=== PATIENT | female | born 1960 | race Caucasian/White ===

== ENCOUNTER 2020-02-09 10:02 | Emergency (ER) | payer MEDICAID ==
[2020-02-09 10:26] LABS: Absolute Lymphocytes (CBC) 1.6 K/uL (0.7-4.9); Hematocrit 42.7 % (36.0-45.0); Lymphocytes % 21.2 % (15.3-44.8); MPV 9.4 fL (7.6-11.3); RBC Red Blood Cell Count 4.68 M/uL (3.86-4.86)
[2020-02-09] MEDS ORDERED: ONDANSETRON 4 MG/2 ML VIAL ONE (10:33)
[2020-02-09] MEDS ORDERED: NA CHLORIDE 0.9% 1,000 ML ONE (10:33)
[2020-02-09 10:42] LABS: Albumin 3.3 g/dL (3.4-5.0); Bilirubin Direct 0.1 mg/dL (0-0.2); Bilirubin Total 0.4 mg/dL (0.2-1.0); Potassium 3.5 mmol/L (3.5-5.1); Protein, Total 7.8 g/dL (6.4-8.2)
--- NOTE | 2020-02-09 11:35 | RAD REPORT ---
EXAM DESCRIPTION: [place] Single View02/09/2020 10:29 am CLINICAL HISTORY: Congestion COMPARISON: none FINDINGS: The lungs appear clear of acute infiltrate. The heart is normal size IMPRESSION: No acute abnormalities displayed
--- NOTE | 2020-02-09 11:35 | RAD REPORT ---
EXAM DESCRIPTION: CT - Abdomen Pelvis W Contrast - 02/09/2020 11:24 am CLINICAL HISTORY: Abdominal pain COMPARISON: none. TECHNIQUE: Computed axial tomography of the abdomen pelvis was obtained. 100 cc Isovue-300 was admin istered intravenously. Oral contrast was not requested which limits evaluation of bowel. All CT scans are performed using dose optimization technique as appropriate and may include automated exposure control or mA/KV adjustment according to patient size. FINDINGS: The liver, spleen, pancreas, adrenal and and right kidney appear unremarkable. 2.2 centimeter left renal cyst. Small nonobstructing left renal calculi. Renal cortical thinning like ly secondary to prior inflammation There is no evidence of diverticulitis. A percutaneous tube has its tip in the stomach. What appears to be Rogers catheter is present within the cervix. Bladder is borderline distended conta ining air Rectum is distended with stool measuring 7.5 centimeters. Atherosclerotic disease IMPRESSION: Rogers catheter within the cervix Rectum is distended with stool Small nonobstructing left renal calculi
[2020-02-09] MEDS ORDERED: CEFTRIAXONE/SWI 1gm 1 GM/10 ML SYR ONE (12:27)
[2020-02-09 12:42] LABS: Urine Blood 1+ (NEG); Urine Glucose NEGATIVE (NEG); Urine Protein NEGATIVE (NEG); Urine Specific Gravity 1.015 (1.005-1.030)
[2020-02-09 12:46] LABS: Urine Bacteria >50 /HPF (<20); Urine Mucus 1+ /HPF (NONE SEEN)
--- NOTE | 2020-02-09 13:35 | EDPHYS ---
Physician Documentation [facility] Name: Funmilayo Mcmillan Age: 59 yrs Sex: Female : 1960 Arrival Date: 02/09/2020 Time: 10:03 Bed 2 Private MD: ED Physician Arron Schulz HPI: 02/08 10:46 This 59 yrs old Female presents to ER via EMS with complaints of Problem With ma2 Feeding Tube. 10:46 The patient presents with abdominal pain peg tube not working . Onset: The ma2 symptoms/episode began/occurred acutely. Associated signs and symptoms: Pertinent negatives: blood in stools, constipation, dysuria, fever. Severity of pain: At its worst the pain was moderate in the emergency department the pain is unchanged. The patient has not experienced similar symptoms in the past. Historical: - Allergies: 10: No Known Allergies; jl7 - Home Meds: 10:29 Risperdal 0.5 mg Oral tab 2 times per day [Active]; clopidogrel 75 mg oral tab 1 tab jl7 once daily [Active]; famotidine 20 mg Oral tab 1 tab every 12 hours [Active]; amlodipine 10 mg tab 1 tab once daily [Active]; levetiracetam 100 mg/mL oral soln 705 mL 2 times per day [Active]; lisinopril 40 mg Oral tab 1 tab once daily [Active]; atorvastatin 40 mg oral tab 1 tab once daily [Active]; aspirin 81 mg Oral chew 1 tab once daily [Active]; - PMHx: 10:29 CVA; Hypertension; Hyperlipidemia; Atrial Fib; Depression; jl7 - Immunization history:: Adult Immunizations up to date. - Social history:: Smoking status: Patient denies any tobacco usage or history of. Patient/guardian denies using alcohol, street drugs, The patient lives with family. - Family history:: not pertinent. ROS: 10:46 Constitutional: Negative for fever, chills, and weight loss. ma2 10:46 All other systems are negative. Exam: 10:46 Constitutional: This is a well developed, well nourished patient who is awake, alert, ma2 and in no acute distress. Head/Face: Normocephalic, atraumatic. Eyes: Pupils equal round and reactive to light, extra-ocular motions intact. Lids and lashes normal. Conjunctiva and sclera are non-icteric and not injected. Cornea within normal limits. Periorbital areas with no swelling, redness, or edema. ENT: Nares patent. No nasal discharge, no septal abnormalities noted. Tympanic membranes are normal and external auditory canals are clear. Oropharynx with no redness, swelling, or masses, exudates, or evidence of obstruction, uvula midline. Mucous membranes moist. Neck: Trachea midline, no thyromegaly or masses palpated, and no cervical lymphadenopathy. Supple, full range of motion without nuchal rigidity, or vertebral point tenderness. No Meningismus. Chest/axilla: Normal chest wall appearance and motion. Nontender with no deformity. No lesions are appreciated. Cardiovascular: Regular rate and rhythm with a normal S1 and S2. No gallops, murmurs, or rubs. Normal PMI, no JVD. No pulse deficits. Respiratory: Lungs have equal breath sounds bilaterally, clear to auscultation and percussion. No rales, rhonchi or wheezes noted. No increased work of breathing, no retractions or nasal flaring. Abdomen/GI: Soft, non-tender, with normal bowel sounds. No distension or tympany. No guarding or rebound. No evidence of tenderness throughout. Back: No spinal tenderness. No costovertebral tenderness. Full range of motion. Skin: Warm, dry with normal turgor. Normal color with no rashes, no lesions, and no evidence of cellulitis. MS/ Extremity: Pulses equal, no cyanosis. Neurovascular intact. Full, normal range of motion. Neuro: she is non verbal at baseline , s/p strock Psych: Awake, alert, with orientation to person, place and time. Behavior, mood, and affect are within normal limits. Vital Signs: 10:11 BP 167 / 81; Pulse 71; Resp 16; Temp 97.6(TE); Pulse Ox 100% on R/A; ss 11:01 BP 153 / 86; Pulse 64; Resp 18; Pulse Ox 100% ; sv 12:18 BP 154 / 86; Pulse 66; Resp 13; Pulse Ox 99% ; jl7 13:14 BP 168 / 85; Pulse 62; Resp 17; Pulse Ox 100% ; jl7 MDM: 10:05 Patient medically screened. ma2 10:46 Differential diagnosis: gastritis, gastroesophageal reflux disease, Irritable bowel ma2 syndrome, pancreatitis. 13:04 Data reviewed: vital signs, nurses notes. Counseling: I had a detailed discussion with [facility] the patient and/or guardian regarding: the historical points, exam findings, and any diagnostic results supporting the discharge/admit diagnosis, the presence of at least one elevated blood pressure reading (>120/80) during this emergency department visit, the need for outpatient follow up. Response to treatment: the patient's symptoms have markedly improved after treatment. 02/08 10:07 Order name: BMP [facility] 02/08 10:07 Order name: CBC with Diff; Complete Time: 12:01 [facility] 02/08 10:07 Order name: Hepatic Function [facility] 02/08 10:07 Order name: Lipase [facility] 02/08 10:08 Order name: Basic Metabolic Panel; Complete Time: 12:01 [facility] 02/08 10:08 Order name: Liver (Hepatic) Function; Complete Time: 12:01 [facility] 02/08 10:07 Order name: CT Abd/Pelvis - IV Contrast Only; Complete Time: 12:01 [facility] 02/08 10:07 Order name: Chest Single View XRAY; Complete Time: 12:01 [facility] 02/08 10:08 Order name: Lipase; Complete Time: 12:01 [facility] 02/08 12:06 Order name: Urine Culture [facility] 02/08 12:06 Order name: Urine Microscopic Only; Complete Time: 13:04 [facility] 02/08 12:23 Order name: Urine Dipstick--Ancillary (enter results); Complete Time: 13:04 02/08 10:07 Order name: IV Saline Lock; Complete Time: 10:23 [facility] 02/08 10:07 Order name: Labs collected and sent; Complete Time: 10:23 [facility] 02/08 10:07 Order name: NPO; Complete Time: 10:23 [facility] 02/08 10:07 Order name: Urine Dipstick-Ancillary (obtain specimen); Complete Time: 12:17 [facility] Administered Medications: 10:23 Drug: Zofran (Ondansetron) 4 mg Route: IVP; Site: left antecubital; jl7 11:00 Follow up: Response: No adverse reaction sv 10:23 Drug: NS 0.9% 1000 ml Route: IV; Rate: 1000 ml; Site: left antecubital; jl7 11:30 Follow up: Response: No adverse reaction; IV Status: Completed infusion; IV Intake: jl7 1000ml 12:17 Drug: Rocephin 1 grams Route: IV; Rate: calculated rate; Site: left antecubital; jl7 12:20 Follow up: Response: No adverse reaction; IV Status: Completed infusion jl7 Disposition: 02/09/20 13:34 Discharged to Home. Impression: Cystitis, unspecified without hematuria. - Condition is Stable. - Discharge Instructions: Urinary Tract Infection, Adult, [id number]. - Prescriptions for cefpodoxime 100 mg Oral Tablet - take 1 tablet by ORAL route every 12 hours for 10 days take with food; 20 tablet. - Medication Reconciliation Form, Thank You Letter, Antibiotic Education, Prescription Opioid Use form. - Follow up: Private Physician; When: Tomorrow; Reason: Continuance of care. Signatures: Dispatcher [employer] EDFrancesca Lopez RN RN Rose Choe RN RN jl7 Arron Schulz MD MD ma2 Verde, Stephanie RN sv Corrections: (The following items were deleted from the chart) 14:22 13:34 02/09/2020 13:34 Discharged to Home. Impression: Cystitis, unspecified without jl7 hematuria. Condition is Stable. Prescriptions for cefpodoxime 100 mg Oral Tablet - take 1 tablet by ORAL route every 12 hours for 10 days take with food; 20 tablet. and Forms are Medication Reconciliation Form, Thank You Letter, Antibiotic Education, Prescription Opioid Use. Follow up: Private Physician; When: Tomorrow; Reason: Continuance of care. ma2
--- NOTE | 2020-02-09 13:35 | ER ---
Nurse's Notes [facility] Name: Funmilayo Mcmillan Age: 59 yrs Sex: Female : 1960 Arrival Date: 02/09/2020 Time: 10:03 Bed 2 Private MD: Diagnosis: Cystitis, unspecified without hematuria Presentation: 02/08 10:11 Chief complaint: EMS states: Unable to use peg tube x 2 days. Family told patient's ss physician that over the past few days, she seems to ba a little more agitated. CVA 2 months ago. Coronavirus screen: Client denies travel out of the [place] in the last 14 days. Ebola Screen: Patient denies exposure to infectious person. Patient denies travel to an Ebola-affected area in the 21 days before illness onset. Initial Sepsis Screen: Does the patient meet any 2 criteria? No. Patient's initial sepsis screen is negative. Does the patient have a suspected source of infection? No. Patient's initial sepsis screen is negative. Risk Assessment: Do you want to hurt yourself or someone else? Patient reports no desire to harm self or others. Onset of symptoms is unknown. 10:11 Method Of Arrival: EMS: [facility] 10:11 Acuity: EDNA 3 ss Triage Assessment: 14:04 General: Appears. jl7 Historical: - Allergies: 10:29 No Known Allergies; jl7 - Home Meds: 10:29 Risperdal 0.5 mg Oral tab 2 times per day [Active]; clopidogrel 75 mg oral tab 1 tab jl7 once daily [Active]; famotidine 20 mg Oral tab 1 tab every 12 hours [Active]; amlodipine 10 mg tab 1 tab once daily [Active]; levetiracetam 100 mg/mL oral soln 705 mL 2 times per day [Active]; lisinopril 40 mg Oral tab 1 tab once daily [Active]; atorvastatin 40 mg oral tab 1 tab once daily [Active]; aspirin 81 mg Oral chew 1 tab once daily [Active]; - PMHx: 10:29 CVA; Hypertension; Hyperlipidemia; Atrial Fib; Depression; jl7 - Immunization history:: Adult Immunizations up to date. - Social history:: Smoking status: Patient denies any tobacco usage or history of. Patient/guardian denies using alcohol, street drugs, The patient lives with family. - Family history:: not pertinent. Screenin:29 Abuse screen: Denies threats or abuse. Denies injuries from another. Nutritional jl7 screening: No deficits noted. Tuberculosis screening: No symptoms or risk factors identified. Fall Risk Secondary diagnosis (15 points) CVA, IV access (20 points). Ambulatory Aid- None/Bed Rest/Nurse Assist (0 pts). Gait- Weak (10 pts.). Total Cloud Fall Scale indicates High Risk Score (45 or more points). Fall prevention measures have been instituted. Side Rails Up X 2 Placed Close to Nursing Station Frequent Obs/Assessments Occuring Family Present and informed to notify staff if the need to leave the bedside As available patient and family educated on Fall Prevention Program and Strategies. Assessment: 10:29 Reassessment: daughter at bedside. jl7 10:55 Reassessment: Rogers noted to be in place, daughter reports [facility] nurse changed it this jl7 morning. Daughter reports she's had the same Rogers for 2 months and they just changed it this morning for the first time. No urine noted in bag or tube. Daughter reports the pt has bee refusing tube feedings and meds since Thursday. 13:14 Reassessment: Patient appears in no apparent distress at this time. No changes from jl7 previously documented assessment. Patient and/or family updated on plan of care and expected duration. Pain level reassessed. Patient is alert, oriented x 3, equal unlabored respirations, skin warm/dry/pink. 13:16 Reassessment: DaughterElyssa, . jl7 Vital Signs: 10:11 BP 167 / 81; Pulse 71; Resp 16; Temp 97.6(TE); Pulse Ox 100% on R/A; ss 11:01 BP 153 / 86; Pulse 64; Resp 18; Pulse Ox 100% ; sv 12:18 BP 154 / 86; Pulse 66; Resp 13; Pulse Ox 99% ; jl7 13:14 BP 168 / 85; Pulse 62; Resp 17; Pulse Ox 100% ; jl7 ED Course: 10:03 Patient arrived in ED. jl7 10:05 Arron Schulz MD is Attending Physician. ma2 10:11 Arm band placed on right wrist. ss 10:13 Rose Choe RN is Primary Nurse. jl7 10:21 Triage completed. ss 10:29 Chest Single View XRAY In Process Unspecified. EDMS 10:29 Patient has correct armband on for positive identification. Placed in gown. Bed in low jl7 position. Call light in reach. Side rails up X2. Adult w/ patient. bus driver/monitor on. Pulse ox on. NIBP on. Warm blanket given. 10:29 Initial lab(s) drawn, by ED staff, sent to lab. Inserted saline lock: 20 gauge in left jl7 antecubital area, using aseptic technique. Blood collected. 11:24 CT Abd/Pelvis - IV Contrast Only In Process Unspecified. EDMS 12:00 Rogers cath inserted, using sterile technique, 16 Fr., by ED staff, balloon inflated, to sv gravity drainage, other done by Rose URIOSTEGUI. 12:00 Rogers cath removed intact, balloon deflated, Rogers removed from cervix. jl7 12:40 Lipase Sent. sv 12:40 Hepatic Function Sent. sv 12:40 BMP Sent. sv 14:17 No provider procedures requiring assistance completed. IV discontinued, intact, jl7 bleeding controlled, No redness/swelling at site. Pressure dressing applied. Administered Medications: 10:23 Drug: Zofran (Ondansetron) 4 mg Route: IVP; Site: left antecubital; jl7 11:00 Follow up: Response: No adverse reaction sv 10:23 Drug: NS 0.9% 1000 ml Route: IV; Rate: 1000 ml; Site: left antecubital; jl7 11:30 Follow up: Response: No adverse reaction; IV Status: Completed infusion; IV Intake: jl7 1000ml 12:17 Drug: Rocephin 1 grams Route: IV; Rate: calculated rate; Site: left antecubital; jl7 12:20 Follow up: Response: No adverse reaction; IV Status: Completed infusion jl7 Intake: 11:30 IV: 1000ml; Total: 1000ml. jl7 Outcome: 13:34 Discharge ordered by MD. thompson 14:17 Discharged to home via ambulance. jl7 14:17 Condition: stable 14:17 Discharge instructions given to patient, family, Instructed on discharge instructions, follow up and referral plans. medication usage, Demonstrated understanding of instructions, follow-up care, medications, Prescriptions given X 1. 14:22 Patient left the ED. jl7 Addendum: 02/12/2020 18:36 Addendum: Culture Results: Positive urine culture. Bacteria is resistant to, has i w intermediate sensitivity, or is not tested against prescribed antibiotics. Report given to EMMANUEL for further evaluation and then to duplicating machine servicer for follow up with patient. Prescription called-in to pharmacy of choice. called in Bactrim suspension 20 mLBID X 7 days, qty sufficient , per CORINNE Whalen, [facility]. Signatures: Dispatcher [employer] EDMS Nichelle Perkins, RN Leslye Donahue RN RN Francesca Caputo RN RN ss Leal, Jahala, RN RN jl7 Arron Schulz MD MD ma2
[2020-02-09 15:31] VITALS: TEMP 97.6
[2020-02-09 15:38] VITALS: BP 168/85; O2SAT 100
== END 2020-02-09 14:22 | disposition home or self-care (01) ==
LOC: ER 10:02
DX: N30.91 Cystitis, unspecified with hematuria (principal); I10 Essential (primary) hypertension; I48.91 Unspecified atrial fibrillation; E78.5 Hyperlipidemia, unspecified; F32.9 Major depressive disorder, single episode, unspecified; Z86.73 Personal history of transient ischemic attack (TIA), and cerebral infarction without residual deficits; Z79.82 Long term (current) use of aspirin
CPT/HCPCS: 96361; 87088; 85025; 87086; 80048; 36415; 80076; 87077 ×2; 87186 ×2; 83690; 74177; 71045; 51702; 96375; 96374; 99285; Q9967; J0696; J7030; J2405; 81003; 81015

== ENCOUNTER 2020-03-10 03:36 | Emergency (ER) | payer MEDICAID ==
--- OUTSIDE RECORDS SUMMARY | 2020-03-10 03:43 | XMS REPORT | Summary of Care ---
:1960 Author Organization [facility] Address [address] [place] [id number] Care Team Providers Name Role Phone Gatito Chauhan MD Primary Care Provider Zeke Márquez Insurance Hmo Reason for Visit (Routine) Status Reason Specialty Diagnoses / Referred By Referred To Procedures Contact Contact Closed Vascular Sonography Diagnoses PAD (peripheral artery disease) Daya Love MD Procedures [facility] [address] [facility] [address] [place] [address] Encounter Details Date Type Department Care Team Description 12/19/2019 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, [address] [place] [address] Allergies No Known Allergiesdocumented as of this encounter (statuses as of 12/19/2019) Medications Medication Sig Dispensed Refills Start Date End Date Status citalopram (CELEXA) 40 mg Take 1 Tab by 30 Tab 4 08/23/2013 Active tablet mouth daily. risperiDONE (RISPERDAL) 2 Take 1 Tab by 30 Tab 4 08/23/2013 Active mg tablet mouth every morning. aspirin 81 mg EC tablet Take 1 tablet 0 07/08/2017 Active by mouth daily. metoprolol succinate XL Take 1 tablet 90 tablet 3 12/13/2019 Active 50 mg 24 hr by mouth daily. tabletIndications: Coronary artery disease involving elim ira coronary artery of elim ira heart without angina pectoris simvastatin 40 mg Take 1 tablet 90 tablet 3 12/13/2019 Active tabletIndications: by mouth at Coronary artery disease bedtime. involving elim ira coronary artery of elim ira heart without angina pectoris meloxicam 7.5 mg Take 1 tablet 60 tablet 3 12/16/2019 Active tabletIndications: Neck by mouth daily. pain, musculoskeletal Ok to take 15mg daily (2 tablets) if 1 tablet does not help the pain. Take with food. documented as of this encounter (statuses as of 12/19/2019) Active Problems Problem Noted Date Coronary artery disease without angina pectoris 2015 HTN (hypertension) 07/23/2015 Chest pain 07/22/2015 PAD (peripheral artery disease) 05/10/2015 documented as of this encounter (statuses as of 12/19/2019) Social History Tobacco Use Types Packs/Day Years Used Date Former Smoker Cigarettes 1 Started: 02/01 Smokeless Tobacco: Former User Snuff Q uit: 06/02/1999 Comments: started smoking at 13 years ol d, uses a pack every 2 days when not smoking. Alcohol Use Drinks/Week oz/Week Comments Yes 0 Standard drinks or equivalent 0.0 3 beers daily Sex Assigned at Date Recorded Not on file COVID-19 Exposure Response Date Recorded In the last month, have you been in contact with No / Unsure 12/19/2019 9:21 AM CDT someone who was confirmed or suspected to have 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 documented as of this encounter Last Filed Vital Signs Not on filedocumented in this encounter Plan of Treatment Date Type Specialty Care Team Description 12/19/2019 Trolley Worker Visit Cardiology Prseton Plummer MD [address] [place] [address] Pc, Adc Vascular Room 1 - 12/27/2019 Ancillary Visit Physical Therapy Shanell Foy , PT [address] [place] [address] 12/27/2019 Laboratory Only Cardiology Daya Love M D [address] [place] [address] [phone] Pc, Adc Echo Room 1 - 12/28/2019 Appointment Radiology Joeslyn Chauhan MD [address] [facility] [address] [place], [place] [address] [phone] 12/28/2019 Appointment Radiology Joselyn Chauhan MD [address] [facility] [address] [place], [place] [address] [phone] 01/06/2020 Office Visit Vascular Surgery Gerard Hart MD [address] [place] [address] [phone] 06/11/2020 Office Visit Cardiology Daya Love M D [address] [facility] [address] [place], [place] [address] [phone] Health Maintenance Due Date Last Done Comments COLON CANCER SCREENING ANNUAL 2011 FIT/FOBT COLON CANCER SCREENING FIT 2011 DNA EVERY 3 YEARS COLON CANCER SCREENING 2011 SIGMOIDOSCOPY EVERY 5 YEARS PAP SMEAR 08/03/2011 08/02/2008, 12/02/2004, 11/03/2003 Breast Cancer Screening 01/11/2014 01/11/2013, (MAMMOGRAM) 12/24/2012 LUNG CANCER SCREEN: 2016 Recommended for age 55-80 with 30 + pack year history DTaP,Tdap,and Td Vaccines (1 02/02/2020 Pos tponed from 1980 - Tdap) (Insurance / Fin ancial) Zoster Recombinant Vaccine 02/02/2020 Postp oned from 2011 (SHINGRIX) (1 of 2) (Insurance / Financial) INFLUENZA VACCINE (#1) 2020 Postponed from 11/15/2019 (Refused) Depression Screening 12/12/2020 12/13/2019 COLONOSCOPY 06/06/2026 06/06/2016 Colorectal Cancer Screening 06/06/2026 HEPATITIS C (HCV) SCREEN Completed 10/01/2018, 12/31/2017 PNEUMOCOCCAL 0-64 YEARS Aged Out No longe r eligible based COMBINED SERIES on patient's age to complete this to [facility] documented as of this encounter Goals Goal Patient Goal Associated Recent Patient-Stated? Author Type Problems Progress Quit using Tobacco Use caleb Peratla (cigarettes, smokeless, etc) documented as of this encounter Results Not on filedocumented in this encounter Visit Diagnoses Diagnosis PAD (peripheral artery disease) Unspecified disorders of arteries and ar terioles documented in this encounter Insurance Payer Benefit Plan / Subscriber ID Effective Phone Address T ype Group Dates EMRE ANDREA [id number] 2015-Pres [address] Medic aid HEALTHCARE - [place]ALTHCARE [place] [id number] MANAGED MEDICAID [place], [place]ICAID [place] documented as of this encounter
--- OUTSIDE RECORDS SUMMARY | 2020-03-10 03:43 | XMS REPORT | Summary of Care ---
:1960 Author Organization [facility] Address [address] [place] [address] Care Team Providers Name Role Phone Gatito Chauhan MD Primary Care Provider Zeke Márquez Insurance Hmo Reason for Referral (Routine) Status Reason Specialty Diagnoses / Referred By Referred To Procedures Contact Contact Authorized Vascular Diagnoses PAD (peripheral artery disease) Daya Love Sonography Procedures BILATERAL DUPLEX SCAN OF ARTERY BY VASCULAR LAB [address] [place] [address] [place] [phone] (Routine) Status Reason Specialty Diagnoses / Referred By Referred To Procedures Contact Contact Authorized Vascular Diagnoses PAD (peripheral artery disease) Daya Love Sonography Procedures MONO MULTI LEVEL BY VASCULAR LAB [address] [place] [address] [address] [place] [address] (Routine) Status Reason Specialty Diagnoses / Referred By Referred To Procedures Contact Contact Authorized Cardiology Diagnoses Coronary artery disease involving shosh[place]paiute coronary artery of shoshone[place]paiute heart without angina pectoris Daya Love MD Procedures ECHO ROUTINE W/DOPPLER COLOR Preferred Location: [facility] [address] [place] [address] [address] [place], [place] [address] Reason for Visit Reason Comments Follow-up 4mo Ekg Done today in Office Encounter Details Date Type Department Care Team Description 12/13/2019 Office Visit [facility] Daya Love M D Coronary artery disease involving shosh[place]paiute coronary artery of shoshone[place]paiute heart without angina pectoris (Primary Dx); Cardiology- [address] PAD (peripheral artery disea se); [facility] [address], [address] [place], [place] [phone] Allergies No Known Allergiesdocumented as of this encounter (statuses as of 12/15/2019) Medications Medication Sig Dispensed Refills Start Date End Date Status citalopram Take 1 Tab 30 Tab 4 08/23/2013 Active (CELEXA) 40 mg by mouth tablet daily. risperiDONE Take 1 Tab 30 Tab 4 08/23/2013 Active (RISPERDAL) 2 mg by mouth tablet every morning. aspirin 81 mg EC Take 1 0 07/08/2017 Ac tive tablet tablet by mouth daily. metoprolol Take 1 90 tablet 3 12/13/2019 Active succinate XL 50 tablet by mg 24 hr mouth daily. tabletIndications : Coronary artery disease involving shoshone[place]paiute coronary artery of shoshone-paiute heart without angina pectoris simvastatin 40 mg Take 1 90 tablet 3 12/13/2019 A ctive tabletIndications tablet by : Coronary artery mouth at disease involving bedtime. shoshone[place]paiute coronary artery of shoshone-paiute heart without angina pectoris simvastatin 40 mg Take 1 90 tablet 3 01/25/2019 12/13/2019 Discontinued tabletIndications tablet by (Nirav herrera) : Coronary artery mouth at disease involving bedtime. shoshone[place]paiute coronary artery of shoshone-paiute heart without angina pectoris metoprolol Take 1 90 tablet 1 07/26/2019 12/13/2019 Discont inued succinate XL 50 tablet by (Nathaniel burch) mg 24 hr mouth daily. tabletIndications : Coronary artery disease involving shoshone[place]paiute coronary artery of shoshone-paiute heart without angina pectoris documented as of this encounter (statuses as of 12/15/2019) Active Problems Problem Noted Date Coronary artery disease without angina pectoris 2015 HTN (hypertension) 07/23/2015 Chest pain 07/22/2015 PAD (peripheral artery disease) 05/10/2015 documented as of this encounter (statuses as of 12/15/2019) Social History Tobacco Use Types Packs/Day Years [...] been in contact with No / Unsure 12/13/2019 1:36 PM CDT someone who was confirmed or suspected to have 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 documented as of this encounter Last Filed Vital Signs Vital Sign Reading Time Taken Comments Blood Pressure 130/87 12/13/2019 1:42 PM CDT Pulse 76 12/13/2019 1:42 PM CDT Temperature - - Respiratory Rate 19 12/13/2019 1:42 PM CDT Oxygen Saturation 96% 12/13/2019 1:42 PM CDT Inhaled Oxygen Concentration - - Weight 51.4 kg (113 lb 6.4 oz) 12/13/2019 1:42 PM CDT Height 167.6 cm (5' 6") 12/13/2019 1:42 PM CDT Body Mass Index 18.3 12/13/2019 1:42 PM CDT documented in this encounter Progress Notes Daya Love MD - 12/13/2019 1:20 PM CDT [facility] Cardiology Clinic 12/13/2019 CC: CAD, HTN, PAD HPI: Funmilayo Mcmillan is a 59 years old female with PMH of HTN, CAD s/p PCI of proximal LAD in 08/2013, proximal LCX - 50% lesion that was not significant by FFR. She had an abnormal nuclear stress test in Mar 2014 for chest pain. Arterial duplex showed severe BL SFA stenosis/occlusion. Continues to have claudication bilaterally. She has no chest pain. Denies significant dyspnea. She is still smoking. Denies edema, orthopnea, palpitations, or syncope. Claudication at 0.5 block. Drinks alcohol and smokes. BP is normal. Reported nausea after taking metoprolol. Her main complaint is still leg pain but she no showed for vasc surg appointment a few times. EKG--12/13/2019--reviewed by me--normal sinus rhythm, LVH Past Medical History: Diagnosis Date CAD (coronary artery disease) 08/2013 s/p PCI (SAEID) to proximal LAD, 50% mid focal occlusion of LCx Depression HTN (hypertension) PAD (peripheral artery disease) 05/10/2015 Stroke Tuberculosis was treated for 6 months, was in senior care. No past surgical history on file. Family History Problem Relation Age of Onset Coronary Heart Disease Maternal Aunt Review of Systems: (-)=Negative,(+)=Positive General: (-) fever, (-) chills, (-) weight change, (-) dizziness, (-) fatigue Skin: (-) rash HEENT: (-) headache, (-) change in vision Neck: (-) difficulty swallowing Heme: negative Resp: (-) cough, (+) dyspnea on exertion Cardio: (-) chest pain, (-) palpitations, (-) syncope GI: (-) vomiting, (-) diarrhea : negative Endo: (-) diabetes, (-) thyroid disease Neuro: (-) numbness, (-) tingling, (-) weakness Back: (-) pain NATHANIEL: (-) muscle pain, (+) claudication Psych: (-) anxiety, (-) depression PHYSICAL EXAM Vitals: 12/13/19 1342 BP: 130/87 Pulse: 76 Resp: 19 SpO2: 96% Constitutional: alert and oriented x 3 (person, place and date/time); no apparent distress ENT: normocephalic atraumatic, supple, no lymphadenopathy, no bruits, no JVD Lungs: clear to auscultation bilaterally Cardiovascular: S1, S2 normal, regular; no murmurs, rubs or gallops GI: soft; non-tender; non-distended; normoactive bowel sounds : not examined Musculoskeletal: Extremities: no clubbing, cyanosis, or edema, diminished ankle pulses Skin: no rashes Neuro: no focal deficits LABS/RADS Sinus chay 57 bpm, LBBB, [place] - 162 ms, QRSd 138 ms, Qtc - 474 ms 07/08/2017--NSR, HR 67 bpm, LAE, IVCD, TWI inferolateral TTE 06/01/13: EF 55-60%, IR LHC: 08/22/13 PCI of pLAD with SAEID FFR of LCx non signficiant Asa/Plavix Stress test: 04/13/14 Abnormal myocardial perfusion scan with medium in size, reversible mid to distal inferior wall perfusion defect extending to the apex. There is also a small , mid anterior reversible defect. MONO--R 0.68, L 0.66 Arterial duplex--Severe bilateral femoral artery stenosis A/P: ICD-10-CM ICD-9-CM 1. Coronary artery disease involving shosh[place]-paiute coronary artery of shoshone-paiute heart without angina [id number] 414.01 2. PAD (peripheral artery disease) I73.9 443.9 3. Essential hypertension I10 401.9 PAD--Bilateral SFA severe stenosis/occlusion with claudication. Referred to vascular surgery but annettekaterine showed. Will refer again. On ASA and simvastatin. Will repeat MONO and arterial duplex. CAD--s/p LAD PCI with SAEID. On ASA 81 mg and simvastatin 40 mg daily. Lipitor is not covered by her insurance. Although her nuclear stress test was abnormal, currently she has no angina. Will continue Toprol XL. Will repeat ECHO to assess LVEF. HTN--Her BP is normal now. Continue metoprolol. Advised to check at home. Call if > 140/90. Salt restriction. Smoking cessation education. RTC 6 months Daya Love MD, FACC, AMISHA Mill Attendant, Division of Cardiology [facility] documented in this encounter Plan of Treatment Date Type Specialty Care Team Description 12/16/2019 Office Visit Internal Medicine Ryann Chauhan MD [address] [place] [address] [phone] 12/19/2019 Flight Follower Visit Cardiology Preston Plummer MD [address] [place] [address] DR BROWN [address] [place] [phone] , [facility] Vascular Room 1 - 12/19/2019 Flight Follower Visit Cardiology Preston Plummer MD [address] [place] [address] DR BROWN [address] [place] [phone] , [facility] Vascular Room 1 - 12/27/2019 Laboratory Only Cardiology Daya Love M D [address] [place] [address] [phone] Pc, Adc Echo Room 1 - 01/06/2020 Office Visit Vascular Surgery Gerard Hart MD [address] [place] [phone] 06/11/2020 Office Visit Cardiology Daya Love M D [address] [place] [address] [address] [place], [place] [address] Name Type Priority Associated Diagnoses Order S chedule EKG-12 LEAD ROUTINE HEART STATION Routine Coronary artery Orde red: 12/13/2019 disease involving shosh[place]-paiute coronary artery of shoshone-paiute heart without angina pectoris Health Maintenance Due Date Last Done Comments COLON CANCER SCREENING ANNUAL 2011 FIT/FOBT COLON CANCER SCREENING FIT 2011 DNA EVERY 3 YEARS COLON CANCER SCREENING 2011 SIGMOIDOSCOPY EVERY 5 YEARS PAP SMEAR 08/03/2011 08/02/2008, 12/02/2004, 11/03/2003 Breast Cancer Screening 01/11/2014 01/11/2013, (MAMMOGRAM) 12/24/2012 LUNG CANCER SCREEN: 2016 Recommended for age 55-80 with 30 + pack year history INFLUENZA VACCINE (#1) 2019 DTaP,Tdap,and Td Vaccines (1 02/02/2020 Pos tponed from 1980 - Tdap) (Insurance / Fin ancial) Zoster Recombinant Vaccine 02/02/2020 Postp oned from 2011 (SHINGRIX) (1 of 2) (Insurance / Financial) Depression Screening 12/12/2020 12/13/2019 COLONOSCOPY 06/06/2026 06/06/2016 Colorectal Cancer Screening 06/06/2026 HEPATITIS C (HCV) SCREEN Completed 10/01/2018, 12/31/2017 PNEUMOCOCCAL 0-64 YEARS Aged Out No longe r eligible based COMBINED SERIES on patient's age to complete this to pic documented as of this encounter Goals Goal Patient Goal Associated Recent Patient-Stated? Author Type Problems Progress Quit using Tobacco Use No Hugh, tobacco Roberta (cigarettes, smokeless, etc) documented as of this encounter Procedures Procedure Name Priority Date/Time Associated Diagnosis Comme nts EKG-12 LEAD Routine 12/13/2019 1:42 PM CDT documented in this encounter Results Not on filedocumented in this encounter Visit Diagnoses Diagnosis Coronary artery disease involving shosh[place]-paiute coronary artery of shoshone-paiute heart without angina pectoris - Primary PAD (peripheral artery disease) Unspecified disorders of arteries and ar terioles Essential hypertension Unspecified essential hypertension documented in this encounter Insurance Payer Benefit Plan / Subscriber ID Effective Phone Address T ype Group Dates ANDREA ANDREA [id number] 2015-Pres [address] Medic aid HEALTHCARE [place] [id number] MANAGED MEDICAID [place], [place] documented as of this encounter
--- OUTSIDE RECORDS SUMMARY | 2020-03-10 03:43 | XMS REPORT | Summary of Care ---
:1960 Author Organization [facility] Address [address] [place] [address] Care Team Providers Name Role Phone Gatito Chauhan MD Primary Care Provider Zeke Márquez Insurance Hmo Reason for Referral (Routine) Status Reason Specialty Diagnoses / Referred By Referred To Procedures Contact Contact Authorized Vascular Diagnoses PAD (peripheral artery disease) Daya Love Sonography Procedures BILATERAL DUPLEX SCAN OF ARTERY BY VASCULAR LAB [address] [place] [address] [place] [phone] (Routine) Status Reason Specialty Diagnoses / Referred By Referred To Procedures Contact Contact Authorized Vascular Diagnoses PAD (peripheral artery disease) Daya Love Sonography Procedures MONO MULTI LEVEL BY VASCULAR LAB [address] [place] [address] [address] [place] [address] (Routine) Status Reason Specialty Diagnoses / Referred By Referred To Procedures Contact Contact Authorized Cardiology Diagnoses Coronary artery disease involving pechanga coronary artery of pechanga heart without angina pectoris Daya Love MD Procedures ECHO ROUTINE W/DOPPLER COLOR Preferred Location: [facility] [address] [place] [address] [address] [place], [place] [address] Reason for Visit Reason Comments Follow-up 4mo Ekg Done today in Office Encounter Details Date Type Department Care Team Description 12/13/2019 Office Visit [facility] Daya Love M D Coronary artery disease involving pechanga coronary artery of pechanga heart without angina pectoris (Primary Dx); Cardiology- [address] PAD (peripheral artery disea se); [facility] [address], [address] [place], [place] [phone] Allergies No Known Allergiesdocumented as of this [...] daily. tabletIndications : Coronary artery disease involving pechanga coronary artery of pechanga heart without angina pectoris simvastatin 40 mg Take 1 90 tablet 3 12/13/2019 A ctive tabletIndications tablet by : Coronary artery mouth at disease involving bedtime. pechanga coronary artery of pechanga heart without angina pectoris simvastatin 40 mg Take 1 90 tablet 3 01/25/2019 12/13/2019 Discontinued tabletIndications tablet by (Nirav herrera) : Coronary artery mouth at disease involving bedtime. pechanga coronary artery of pechanga heart without angina pectoris metoprolol Take 1 90 tablet 1 07/26/2019 12/13/2019 Discont inued succinate XL 50 tablet by (Nathaniel burch) mg 24 hr mouth daily. tabletIndications : Coronary artery disease involving pechanga coronary artery of pechanga heart without angina pectoris documented as of [...] Love MD - 12/13/2019 1:20 PM CDT [facility] Cardiology Clinic 12/13/2019 CC: CAD, HTN, PAD [...] was treated for 6 months, was in fdc. No past surgical history on file. Family [...] deficits LABS/RADS Sinus chay 57 bpm, LBBB, [place] - 162 ms, QRSd 138 ms, Qtc [...] ICD-10-CM ICD-9-CM 1. Coronary artery disease involving pechanga coronary artery of pechanga heart without angina [id number] 414.01 2. PAD (peripheral artery disease) I73.9 [...] 6 months Daya Love MD, FACC, AMISHA Coarse Wire Drawer, Division of Cardiology [facility] documented in this encounter Plan of Treatment Date Type Specialty Care Team Description 12/16/2019 Office Visit Internal Medicine Ryann Chauhan MD [address] [place] [address] [phone] 12/19/2019 Book Canvasser Visit Cardiology Preston Plummer MD [address] [place] [address] DR BROWN [address] [place] [phone] , [facility] Vascular Room 1 - 12/19/2019 Book Canvasser Visit Cardiology Preston Plummer MD [address] [place] [address] [address] BROWN [address] [place] [phone] , [facility] Vascular Room 1 - 12/27/2019 Laboratory Only Cardiology Daya Love M D [address] [place] [address] [phone] Pc, Adc Echo Room 1 - 01/06/2020 Office Visit Vascular Surgery Gerard Hart MD [address] [place] [phone] 06/11/2020 Office Visit Cardiology Daya Love M D [address] [place] [address] [address] [place], [place] [address] Name Type Priority Associated Diagnoses Order S chedule EKG-12 LEAD ROUTINE HEART STATION Routine Coronary artery Orde red: 12/13/2019 disease involving pechanga coronary artery of pechanga heart without angina pectoris Health Maintenance Due [...] Visit Diagnoses Diagnosis Coronary artery disease involving pechanga coronary artery of pechanga heart without angina pectoris - Primary PAD (peripheral artery disease) Unspecified disorders of arteries and ar terioles Essential hypertension Unspecified essential hypertension documented in this encounter Insurance Payer Benefit Plan / Subscriber ID Effective Phone Address T ype Group Dates ANDREA ANDREA [id number] 2015-Pres [address] Medic aid HE[place]CARE [place] [id number] MANAGED MEDICAID [place], [place] documented as of this encounter
--- OUTSIDE RECORDS SUMMARY | 2020-03-10 03:43 | XMS REPORT | Summary of Care ---
:1960 Author Organization [facility] Address [address] [place] [address] Care Team Providers Name Role Phone Gatito Chauhan MD Primary Care Provider Zeke Márquez Insurance Hmo Encounter Details Date Type Department Care Team Description 12/13/2019 Orders Only [facility] Doctor Unassigned, No [address] [facility] Name [place] [phone] [place] [phone] Allergies No Known Allergiesdocumented as of this encounter (statuses as of 12/13/2019) Medications Medication Sig Dispensed Refills Start Date End Date Status citalopram (CELEXA) 40 Take 1 Tab by 30 Tab 4 08/23/2013 Active mg tablet mouth daily. risperiDONE (RISPERDAL) Take 1 Tab by 30 Tab 4 08/23/2013 Active 2 mg tablet mouth every morning. aspirin 81 mg EC tablet Take 1 tablet by 0 8 Active mouth daily. simvastatin 40 mg Take 1 tablet by 90 tablet 3 01/25/2019 Active tabletIndications: mouth at bedtime. Coronary artery disease involving [place] coronary artery of [place] heart without angina pectoris metoprolol succinate XL Take 1 tablet by 90 tablet 1 0 Active 50 mg 24 hr mouth daily. tabletIndications: Coronary artery disease involving [place] coronary artery of [place] heart without angina pectoris documented as of this encounter (statuses as of 12/13/2019) Active Problems Problem Noted Date Coronary artery disease without angina pectoris 2015 HTN (hypertension) 07/23/2015 Chest pain 07/22/2015 PAD (peripheral artery disease) 05/10/2015 documented as of this encounter (statuses as of 12/13/2019) Social History Tobacco Use Types Packs/Day Years Used Date Former Smoker Cigarettes 1 Started: 02/01 Smokeless Tobacco: Former User Snuff Q uit: 06/02/1999 Comments: started smoking at 13 years ol d, uses a pack every 2 days when not smoking. Alcohol Use Drinks/Week oz/Week Comments Yes 0 Standard drinks or equivalent 0.0 3 beers daily Sex Assigned at Date Recorded Not on file documented as of this encounter Last Filed Vital Signs Not on filedocumented in this encounter Plan of Treatment Date Type Specialty Care Team Description 12/13/2019 Office Visit Cardiology Daya Love M D [address] [facility] [address] [place], [place] [address] 12/16/2019 Office Visit Internal Medicine Ryann Chauhan MD [address] [facility] [address] [place] [phone] Health Maintenance Due Date Last Done Comments Depression Screening 1973 COLON CANCER SCREENING ANNUAL 2011 FIT/FOBT COLON [...] (SHINGRIX) (1 of 2) (Insurance / Financial) COLONOSCOPY 06/06/2026 06/06/2016 Colorectal Cancer Screening 06/06/2026 HEPATITIS C (HCV) SCREEN Completed 10/01/2018, 12/31/2017 PNEUMOCOCCAL 0-64 YEARS Aged Out No longe r eligible based COMBINED SERIES on patient's age to complete this to [facility] documented as of this encounter Goals Goal Patient Goal Associated Recent Patient-Stated? Author Type Problems Progress Quit using Tobacco Use No caleb Reese (cigarettes, smokeless, etc) documented as of this encounter Procedures Procedure Name Priority Date/Time Associated Diagnosis Comme nts CONSENT/REFUSAL FOR Routine 12/13/2019 1:10 PM CDT DIAGNOSIS AND TREATMENT documented in this encounter Results Not on filedocumented in this encounter Insurance Payer Benefit Plan / Subscriber ID Effective Phone Address T e Group Dates EMRE ANDREA [id number] 2015-Pres [address] Medic aid HEALTHCARE [place] [id number] MANAGED MED[place]ID [place], [place] documented as of this encounter
--- OUTSIDE RECORDS SUMMARY | 2020-03-10 03:43 | XMS REPORT | Summary of Care ---
:1960 Author Organization [facility] - [facility] Address [address] [place], [place] [id number] Care Team Providers Name Role Phone Gatito Chauhan MD Primary Care Provider Zeke Márquez Insurance Hmo Reason for Referral (Routine) Status Reason Specialty Diagnoses / Referred By Referred To Procedures Contact Contact New Request Vascular Surgery Diagnoses PAD (peripheral artery disease) Daya Girard, Procedures CONSULT VASCULAR SURGERY MD [address] [place] [address] [place] [phone] (Routine) Status Reason Specialty Diagnoses / Referred By Referred To Procedures Contact Contact Closed Vascular Sonography Diagnoses PAD (peripheral artery disease) Daya Girard MD Procedures BILATERAL DUPLEX SCAN OF ARTERY BY VASCULAR LAB [address] [place] [address] [address] [place] [address] (Routine) Status Reason Specialty Diagnoses / Referred By Referred To Procedures Contact Contact Closed Vascular Sonography Diagnoses PAD (peripheral artery disease) Daya Girard MD Procedures MONO MULTI LEVEL BY VASCULAR LAB [address] [place] [address] [address] [place] [address] (Routine) Status Reason Specialty Diagnoses / Referred By Referred To Procedures Contact Contact Authorized Cardiology Diagnoses Coronary artery disease involving [place] coronary artery of [place] heart without angina pectoris Daya Girard MD Procedures ECHO ROUTINE W/DOPPLER COLOR Preferred Location: [facility] [address] [place] [address] [address] [place], [place] [address] Reason for Visit Reason Comments Follow-up 4mo Ekg Done today in Office Encounter Details Date Type Department Care Team Description [facility] artery disease involving [place] coronary artery of [place] heart without angina pectoris (Primary Dx); Cardiology- [address] PAD (peripheral artery disea se); [address], [address] [place], [place] [phone] Allergies No Known Allergiesdocumented as of this encounter (statuses as of 12/20/2019) Medications Medication Sig Dispensed Refills Start Date [...] daily. tabletIndications : Coronary artery disease involving [place] coronary artery of [place] heart without angina pectoris simvastatin 40 mg Take 1 90 tablet 3 12/13/2019 A ctive tabletIndications tablet by : Coronary artery mouth at disease involving bedtime. [place] coronary artery of [place] heart without angina pectoris simvastatin 40 mg Take 1 90 tablet 3 01/25/2019 12/13/2019 Discontinued tabletIndications tablet by (R eorder) : Coronary artery mouth at disease involving bedtime. [place] coronary artery of [place] heart without angina pectoris metoprolol Take 1 90 tablet 1 07/26/2019 12/13/2019 Discont inued succinate XL 50 tablet by (Nathaniel burch) mg 24 hr mouth daily. tabletIndications : Coronary artery disease involving [place] coronary artery of [place] heart without angina pectoris documented as of this encounter (statuses as of 12/20/2019) Active Problems Problem Noted Date Coronary artery disease without angina pectoris 2015 HTN (hypertension) 07/23/2015 Chest pain 07/22/2015 PAD (peripheral artery disease) 05/10/2015 documented as of this encounter (statuses as of 12/20/2019) Social History Tobacco Use Types Packs/Day Years [...] documented in this encounter Progress Notes Daya Girard MD - 12/13/2019 1:20 PM CDT [facility] 12/13/2019 CC: CAD, HTN, [...] was treated for 6 months, was in longterm. No past surgical history on file. Family [...] deficits LABS/RADS Sinus chay 57 bpm, LBBB, [place] - 162 ms, QRSd 138 ms, Qtc [...] ICD-10-CM ICD-9-CM 1. Coronary artery disease involving [place] coronary artery of [place] heart without angina [id number] 414.01 2. PAD (peripheral artery disease) I73.9 443.9 3. Essential hypertension I10 401.9 PAD--Bilateral SFA severe stenosis/occlusion with claudication. Referred to vascular surgery but trudy showed. Will refer again. On ASA and [...] Smoking cessation education. RTC 6 months Daya Girard MD, FACC, AMISHA Curriculum Consultant, Division of Cardiology [facility] documented in this encounter Miscellaneous Notes Addendum Note - Daya Girard MD - 12/13/2019 1:20 PM CDT Addended by: DAYA GIRARD MD on: 12/20/2019 08:23 AM Modules accepted: Orders documented in this encounter Plan of Treatment Date Type Specialty Care Team Description 12/27/2019 Ancillary Visit Physical Therapy Shanell Foy , PT [address] [place] [address] 12/27/2019 Laboratory Only Cardiology Daya Girard M D [address] [place] [address] [place] [address] [phone] Pc, Adc Echo Room 1 - 12/28/2019 Appointment Radiology Joselyn Chauhan MD [address] [address] [phone] 12/28/2019 Appointment Radiology Joselyn Chauhan MD 146 [facility] [address] [place], [place] [address] [phone] 01/06/2020 Office Visit Vascular Surgery Gerard Hart MD [address] [place] [phone] 06/11/2020 Office Visit Cardiology Daya Girard M D 146 [facility] [address] [place], [place] [address] [phone] Name Type Priority Associated Diagnoses Order S chedule EKG-12 LEAD ROUTINE HEART STATION Routine Coronary artery Orde red: 12/13/2019 disease involving [place] coronary artery of [place] heart without angina pectoris Health Maintenance Due [...] on patient's age to complete this to [facility] documented as of this encounter Goals Goal Patient Goal Associated Recent Patient-Stated? Author Type Problems Progress Quit using Tobacco Use No [place], tobacco Roberta (cigarettes, smokeless, etc) documented as of this encounter Procedures Procedure Name Priority Date/Time Associated Diagnosis Comme nts EKG-12 LEAD Routine 12/13/2019 1:42 PM CDT documented in this encounter Results Not on filedocumented in this encounter Visit Diagnoses Diagnosis Coronary artery disease involving [place] coronary artery of [place] heart without angina pectoris - Primary PAD (peripheral artery disease) Unspecified disorders of arteries and ar terioles Essential hypertension Unspecified essential hypertension documented in this encounter Insurance Payer Benefit Plan / Subscriber ID Effective Phone Address T e Group Dates EMRE ANDREA [id number] 2015-Pres [address] Medic aid [employer] [place] [id number] MANAGED MEDICAID [place], [place] documented as of this encounter
--- OUTSIDE RECORDS SUMMARY | 2020-03-10 03:43 | XMS REPORT | Continuity of Care Document ---
:1960 Author Organization [facility] t Address [address] [place] [address] Care Team Providers Name Role Phone Zay Stewart MD Attending Clinician Problems This patient has no known problems. Allergies, Adverse Reactions, Alerts This patient has no known allergies or adverse reactions. Medications This patient has no known medications. Procedures This patient has no known procedures. Encounters Start End Encounter Admission Attending Care Care Encounter Source Date/Time Date/Time Type Type Clinicians Facility Department ID 2020-03-05 2020-03-05 Office PEARL Stewart [id number] 09:37:34 09:52:[address] [facility] [id number] Cancer [id number] Center - [phone] MDA 185 Results This patient has no known results.
--- OUTSIDE RECORDS SUMMARY | 2020-03-10 03:43 | XMS REPORT | Summary of Care ---
:1960 Author Organization [facility] - [facility] Address [address] [place] [address] Care Team Providers Name Role Phone Gatito Chauhan MD Primary Care Provider Zeke Márquez Insurance Hmo Reason for Visit (Routine) Status Reason Specialty Diagnoses / Referred By Referred To Procedures Contact Contact Closed Vascular Sonography Diagnoses PAD (peripheral artery disease) Daya Love MD Procedures BILATERAL DUPLEX SCAN OF ARTERY BY VASCULAR LAB 146 [facility] [address] [place] [address] Encounter Details Date Type Department Care Team Description 12/19/2019 Appointment [facility] Cardiology- Preston Plummer MD [address] [address] [facility], Adc Vascular Room 1 - 146 [facility], [address] [place] [address] Allergies No Known Allergiesdocumented as of this [...] mouth daily. tabletIndications: Coronary artery disease involving [place] coronary artery of [place] heart without angina pectoris simvastatin 40 mg Take 1 tablet 90 tablet 3 12/13/2019 Active tabletIndications: by mouth at Coronary artery disease bedtime. involving [place] coronary artery of [place] heart without angina pectoris meloxicam 7.5 mg [...] Physical Therapy Shanell Foy , PT [address] [place] [address] 12/27/2019 Laboratory Only Cardiology Daya Love M D 146 [facility] [address] [place] [address] Pc, Adc Echo Room 1 - 12/28/2019 Appointment Radiology Joselyn Chauhan MD 146 [facility] 103 [place], [place] [address] [phone] 12/28/2019 Appointment Radiology Joselyn Chauhan MD 146 [facility] [address] [place], [place] [address] [phone] 01/06/2020 Office Visit Vascular Surgery Gerard Hart MD [address] [place] [phone] 06/11/2020 Office Visit Cardiology Daya Love M D 146 [facility] [address] [place], [place] [address] Health Maintenance Due Date Last Done [...] Address T ype Group Dates EMRE ANDREA [id number] 2014-Pres [address] Medic aid [employer] [place] [id number] MANAGED MEDICAID [place] documented as of this encounter
--- OUTSIDE RECORDS SUMMARY | 2020-03-10 03:44 | XMS REPORT | Summary of Care ---
:1960 Author Organization [facility] Address [address] [place] [address] Care Team Providers Name Role Phone Gatito Hook MD Primary Care Provider WilliZeke Insurance Hmo Reason for Referral Radiology Services (Routine) Status Reason Specialty Diagnoses / Referred By Referred To Procedures Contact Contact Authorized Diagnostic Diagnoses Encounter for screening mammogram for breast cancer Gissel, Radiology Procedures BI SCREENING MAMMOGRAM BILATERAL Bev Mederos MD [address] [place] [address] Dr Lawson [address] [place] [phone] MRI/CAT Scan (Routine) Status Reason Specialty Diagnoses / Referred By Referred To Procedures Contact Contact New Request Diagnostic Diagnoses Inguinal pain of both sides Gissel, Radiology Procedures CT ABDOMEN PELVIS W CONTRAST Bev Mederos MD [address] [place] [address] Dr Lawson [address] [place] [phone] (Routine) Status Reason Specialty Diagnoses / Procedures Referred By R eferred To Contact Contact Authorized Physical Therapy Diagnoses Neck pain, musculoskeletal Gissel, Procedures CONSULT/REFERRAL PHYSICAL THERAPY MA PHYSICAL THERAPY EVALUATION LOW COMPLEX 20 MINS MA PHYSICAL THERAPY EVALUATION MOD COMPLEX 30 MINS MA PHYSICAL THERAPY EVALUATION HIGH COMPLEX 45 MINS Bev Mederos MD [address] [place] [address] [place] [address] (Routine) Status Reason Specialty Diagnoses / Referred By Referred To Procedures Contact Contact New Request Obstetrics & Diagnoses Cervical cancer screening Hook, Gynecology Procedures CONSULT/REFERRAL NEW GRAD RN Bev Mederos MD [address] [place] [address] Dr Renny [address] [place] [address] Reason for Visit Reason Comments Follow-up Encounter Details Date Type Department Care Team Description 12/16/2019 Office Visit [facility] Hook, Neck pain, musc uloskeletal (Primary Dx); Pediatric and Adult Bev Mederos MD Current drug use; Primary Care- [address] [place] [address] D r Inguinal pain of both sides; [place] Renny [address] Schizophrenia, unspecified type; [address] [place] [address] 0 [phone] Other terminal gauger (current) drug therapy; Drive, [address] Other specified health status; [place], [place] Cervical cancer screening; [phone] Encounter for screening mamm ogram for breast cancer; [phone] Routine adult h ealt maintenance Allergies No Known Allergiesdocumented as of this encounter (statuses as of 12/21/2019) Medications Medication Sig Dispensed Refills Start Date [...] mouth daily. tabletIndications: Coronary artery disease involving chitina coronary artery of chitina heart without angina pectoris simvastatin 40 mg Take 1 tablet 90 tablet 3 12/13/2019 Active tabletIndications: by mouth at Coronary artery disease bedtime. involving chitina coronary artery of chitina heart without angina pectoris meloxicam 7.5 mg Take 1 tablet 60 tablet 3 12/16/2019 Active tabletIndications: Neck by mouth daily. pain, musculoskeletal Ok to take 15mg daily (2 tablets) if 1 tablet does not help the pain. Take with food. Hospital, Clinic, or Other Ordered Dose Route Frequency Start Date End Date Status Facility Administered Medication ketorolac (TORADOL) 30 mg SIVP ONCE 12/16/2019 0 Ended injection 30 mgIndications: Neck pain, musculoskeletal documented as of this encounter (statuses as of 12/21/2019) Active Problems Problem Noted Date Coronary artery disease without angina pectoris 2015 HTN (hypertension) 07/23/2015 Chest pain 07/22/2015 PAD (peripheral artery disease) 05/10/2015 documented as of this encounter (statuses as of 12/21/2019) Social History Tobacco Use Types Packs/Day Years [...] Sign Reading Time Taken Comments Blood Pressure 143/89 12/16/2019 2:44 PM CDT Pulse 85 12/16/2019 2:42 PM CDT Temperature 37.1 C (98.7 F) 12/16/2019 2:42 PM CDT Respiratory Rate 18 12/16/2019 2:42 PM CDT Oxygen Saturation 96% 12/16/2019 2:42 PM CDT Inhaled Oxygen Concentration - - Weight 51.3 kg (113 lb 3.2 oz) 12/16/2019 2:42 PM CDT Height - - Body Mass Index 18.27 12/13/2019 1:42 PM CDT documented in this encounter Patient Instructions Patient InstructionsKaitlynn Bruce - 12/16/2019 2:40 PM CDTTry Voltaren gel, use 2g-4g for pain control. documented in this encounter Progress Notes Bev Hook MD - 12/16/2019 2:40 PM CDT DOS: 12/16/2019 CC: Follow up of chronic conditions HPI: Funmilayo Mcmillan is a 59 year old female with history including has a past medical historyof CAD (coronary artery disease) (08/2013), Depression, HTN (hypertension), PAD (peripheral artery disease) (05/10/2015), Stroke, and Tuberculosis. who is being seen today for follow up of chronic conditions. Patient reports neck pain. She compares pain to a stabbing knife pain. On exam she has tight musclesand tenderness to palpation. Patient reports pain near the inguinal area on the right side. She states sometimes she has a bump that pops up and then she feels like it moves around to the left side. Denies pain with urination, vaginal pain, or vaginal discharge. She states the pain was so bad the other day that she doubled over. Patient states she's still smoking. She smokes a half a pack of cigarettes a day. Patient states greysonalso smokes crack and drinks beer, not everyday. Denies any other drug use. Patient states she hasn't been on the celexa or risperidone for a while, she was getting these from [facility]. She states she's on the risperidone for issues with schizophrenia. Health Maintenance Patient does not want flu vaccine. Patient is due pap smear, referral sent to development geologist. Medications reviewed in [facility], past medical history and social history and allergies reviewed. Review of Systems Cardiovascular: Negative for chest pain. Genitourinary: Negative for dysuria, vaginal discharge, difficulty urinating and vaginal pain. + inguinal area Musculoskeletal: Positive for neck pain. PE: Blood pressure (!) 143/89, pulse 85, temperature 37.1 C (98.7 F), temperature source Oral, resp.rate 18, weight 113 lb 3.2 oz (51.3 kg), SpO2 96 %. Physical Exam Vitals signs reviewed. Constitutional: General: She is not in acute distress. Appearance: She is well-developed. She is not diaphoretic. HENT: Head: Normocephalic and atraumatic. Right Ear: External ear normal. Left Ear: External ear normal. Nose: Nose normal. Eyes: General: No scleral icterus. Right eye: No discharge. Left eye: No discharge. Comments: Left and right eyelids normal. Abdominal: Skin: General: Skin is warm and dry. Neurological: Mental Status: She is alert and oriented to person, place, and time. Comments: No tremors. Normal gait. Psychiatric: Behavior: Behavior normal. Comments: Pleasant. Results: No new labs Education & Visit Time: this visit involved counseling and coordination of care that comprised more than 50% of the visit time. I spent at least 25 mintues total time with the patient. Of that time, at least 1 minute was spent on exam, and at least 24 minutes was spent obtaining history and counseling the patient regarding risks and benefits of treatment, treatment options and prevention. A/P: Funmilayo Mcmillan is a 59 year old female with history including has a past medical history of CAD (coronary artery disease) (08/2013), Depression, HTN (hypertension), PAD (peripheral artery disease) (05/10/2015), Stroke, and Tuberculosis. who is being seen today for chronic medical conditions. Neck pain, musculoskeletal (primary encounter diagnosis) Comment: patient reports neck pain. Will try PT. Plan: CONSULT/REFERRAL PHYSICAL THERAPY, meloxicam 7.5 mg tablet, ketorolac (TORADOL) injection 30 Mg. Discussed with patient to try voltaren gel. Current drug use Comment: will check labs. Plan: HIV 1/2 AG-AB WITH REFLEX, HCV ANTIBODY, HEPATITIS B SURFACE ANTIBODY, HEPATITIS B SURFACE ANTIGEN, HBC ANTIBODY (IGM & IGG), GC & CHLAMYDIA AMPLIFIED ASSAY, ADC OR LIV ONLY - RPR Inguinal pain of both sides Comment: will check imaging. Plan: CT ABDOMEN PELVIS W CONTRAST. Discussed with patient to try Voltaren gel. Schizophrenia, unspecified type Comment: she hasn't been on the celexa or risperidone for a while, she was getting these from [facility]. Plan: discussed with patient she needs to follow with [facility]. Other terminal gauger (current) drug therapy Comment: patient has been on [facility] drug therapy for chronic conditions. Will check labs for preventative care. Plan: FOLATE, VITAMIN D, 25-OH, VITAMIN B12, LEVEL, VITAMIN B6, PLASMA, VITAMIN B1 (THIAMINE), WHOLE BLOOD, HOMOCYSTEINE Other specified health status Comment: will check labs for preventative care. Plan: HIGH SENSITIVITY CRP Cervical cancer screening Comment: patient is due for cervical cancer screening. Plan: CONSULT/REFERRAL NEW GRAD RN Encounter for screening mammogram for breast cancer Comment: patient is due for mammogram. Plan: BI SCREENING MAMMOGRAM BILATERAL Routine adult health maintenance Comment: patient is due for routine labs. Plan: CBC WITH DIFF, COMP. METABOLIC PANEL (09156), LIPID PANEL (60226)(TOTAL CHOLESTEROL, TRIGLYCERIDES, HDL), THYROID STIMULATING HORMONE, FREE T4, FREE T3, GLYCOSYLATED HEMOGLOBIN (A1C) Return in about 6 months (around 06/15/2020) for Chronic medical conditions. Plan of care, desired health behaviors, goals,& medication discussed with patient and educational resources and self management tools provided as appropriate. Patient/family/guardian voices understanding. Patient verbalized understanding & agrees to plan of care. Barriers to care: none Ability to manage care: good Scribe's Attestation IKaitlynn , am scribing for, and in the presence of, Bev Hook MD who performed the services described here-in. Kaitlynn Bruce, December 16, 2019, 2:56 PM Physician's Attestation I, Bev Hook MD, personally performed the services described in this documentation , asscribed by, Kaitlynn Bruce in my presence and it is both accurate and complete. Bev Hook MD December 21, 2019, 8:36 PM documented in this encounter Plan of Treatment Date Type Specialty Care Team Description 12/27/2019 Ancillary Visit Physical Therapy Shanell Foy , PT [address] [place] [address] 12/27/2019 Laboratory Only Cardiology Daya Love M D [address] [place] [address] [address] [place] [address] [phone] Pc, Adc Echo Room 1 - 12/28/2019 Appointment Radiology Joselyn Hook MD [address] [place] [address] 77 15 12/28/2019 Appointment Radiology Joselyn Hook MD [address] [place] [address] 775 15 [phone] 01/06/2020 Office Visit Vascular Surgery Gerard Hart MD [address] [place] [address] [phone] 06/11/2020 Office Visit Cardiology Daya Love M D [address] [facility] [address] [place] [address] 775 15 Name Type Priority Associated Diagnoses Order S chedule CBC WITH DIFF LAB Routine Routine adult health Ordere d: 12/16/2019 maintenance COMP. METABOLIC PANEL LAB Routine Routine adult healt h Ordered: 12/16/2019 (44911) maintenance LIPID PANEL (24215)(TOTAL LAB Routine Routine adult h ealth Ordered: 12/16/2019 CHOLESTEROL, maintenance TRIGLYCERIDES, HDL) THYROID STIMULATING LAB Routine Routine adult health Ordered: 12/16/2019 HORMONE maintenance FREE T4 LAB Routine Routine adult health Ordered : 12/16/2019 maintenance FREE T3 LAB Routine Routine adult health Ordered : 12/16/2019 maintenance GLYCOSYLATED HEMOGLOBIN LAB Routine Routine adult hea lth Ordered: 12/16/2019 (A1C) maintenance FOLATE LAB Routine Other terminal gauger Ordered: 04/2019 (current) drug therapy VITAMIN D, 25-OH LAB Routine Other terminal gauger Ordered: 12/16/2019 (current) drug therapy VITAMIN B12, LEVEL LAB Routine Other [facility] Ordere d: 12/16/2019 (current) drug therapy VITAMIN B6, PLASMA LAB Routine Other terminal gauger Ordere d: 12/16/2019 (current) drug therapy VITAMIN B1 (THIAMINE), LAB Routine Other [facility] Or dered: 12/16/2019 WHOLE BLOOD (current) drug therapy HOMOCYSTEINE LAB Routine Other [facility] Ordered: 04/2019 (current) drug therapy HIGH SENSITIVITY CRP LAB Routine Other specified heal th Ordered: 12/16/2019 status HIV 1/2 AG-AB WITH REFLEX LAB Routine Current drug us e Expected: 12/16/2019, Exp ires: 12/15/2020 HCV ANTIBODY LAB Routine Current drug use Expected: 12/16/2019, Exp ires: 12/15/2020 HEPATITIS B SURFACE LAB Routine Current drug use Expe cted: ANTIBODY 12/16/2019, Exp ires: 12/15/2020 HEPATITIS B SURFACE LAB Routine Current drug use Expe cted: ANTIGEN 12/16/2019, Exp ires: 12/15/2020 HBC ANTIBODY (IGM & IGG) LAB Routine Current drug use Expected: 12/16/2019, Exp ires: 12/15/2020 GC & CHLAMYDIA AMPLIFIED LAB Routine Current drug use Expected: ASSAY 12/16/2019, Exp ires: 12/15/2020 ADC OR LIV ONLY - RPR LAB Routine Current drug us e Expected: 12/16/2019, Exp ires: 12/15/2020 CT ABDOMEN PELVIS W IMAGING Routine Inguinal pain of both Expected: CONTRAST sides 12/16/2019, Exp ires: 12/15/2020 BI SCREENING MAMMOGRAM IMAGING Routine Encounter for scre ening Expected: BILATERAL mammogram for breast 020, Expires: cancer 02/14/2021 Health Maintenance Due Date Last Done Comments [...] Problems Progress Quit using Tobacco Use No [place], tobacco Roberta (cigarettes, smokeless, etc) documented as of this encounter Results Not on filedocumented in this encounter Visit Diagnoses Diagnosis Neck pain, musculoskeletal - Primary Cervicalgia Current drug use Inguinal pain of both sides Abdominal pain, unspecified site Schizophrenia, unspecified type Other terminal gauger (current) drug therapy Other specified health status Cervical cancer screening Screening for malignant neoplasm of the cervix Encounter for screening mammogram for br east cancer Routine adult health maintenance Routine general medical examination at a health care facility documented in this encounter Administered Medications Medication Order MAR Action Action Date Dose Rate Site ketorolac (TORADOL) Given 12/16/2019 3:29 PM 30 mg Right Upper Quad. injection 30 mg CDT Gluteus 30 mg, Slow IV Push, ONCE, 1 dose, Thu12/16/19 at 1630, Routine, restaurant hourly team member approving Restricted medication: BEV HOOK documented in this encounter Insurance Payer Benefit Plan / Subscriber ID Effective Phone Address T ype Group Dates EMRE ANDREA [id number] 2015-Pres [address] Medic aid HEALTHCARE - HEALTHCARE [place] [id number] MANAGED MEDICAID [place], MEDICAID [place] documented as of this encounter
--- OUTSIDE RECORDS SUMMARY | 2020-03-10 03:44 | XMS REPORT | Summary of Care ---
:1960 Author Organization [facility] Address [address] [place] [address] Care Team Providers Name Role Phone Gatito Hook MD Primary Care Provider WilliZeke Insurance Hmo Reason for Referral Radiology Services (Routine) Status Reason Specialty Diagnoses / Referred By Referred To Procedures Contact Contact Authorized Diagnostic Diagnoses Encounter for screening mammogram for breast cancer Gissel, Radiology Procedures BI SCREENING MAMMOGRAM BILATERAL Bev Mederos MD [address] [place] [address] Dr Lawson [address] [place] [phone] MRI/CAT Scan (Routine) Status Reason Specialty Diagnoses / Referred By Referred To Procedures Contact Contact New Request Diagnostic Diagnoses Inguinal pain of both sides Gissel, Radiology Procedures CT ABDOMEN PELVIS W CONTRAST Bev Mederos MD [address] [place] [address] Dr Lawson [address] [place] [phone] (Routine) Status Reason Specialty Diagnoses / Procedures Referred By R eferred To Contact Contact Authorized Physical Therapy Diagnoses Neck pain, musculoskeletal Gissel, Procedures CONSULT/REFERRAL PHYSICAL THERAPY MS PHYSICAL THERAPY EVALUATION LOW COMPLEX 20 MINS MS PHYSICAL THERAPY EVALUATION MOD COMPLEX 30 MINS MS PHYSICAL THERAPY EVALUATION HIGH COMPLEX 45 MINS Bev Mederos MD [address] [place] [address] [place] [address] (Routine) Status Reason Specialty Diagnoses / Referred By Referred To Procedures Contact Contact New Request Obstetrics & Diagnoses Cervical cancer screening Hook, Gynecology Procedures CONSULT/REFERRAL VIDEO TAPE DUPLICATOR Bev Mederos MD [address] [place] [address] Dr [address]enny [address] [place] [address] Reason for Visit Reason Comments Follow-up Encounter Details Date Type Department Care Team Description 12/16/2019 Office Visit [facility] Hook, Neck pain, musc uloskeletal (Primary Dx); Pediatric and Adult Bev Mederos MD Current drug use; Primary Care- [address] [place] [address] D r Inguinal pain of both sides; [place] R[address] Schizophrenia, unspecified type; [address] [place] [address] [phone] 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 tabletIndications: Coronary artery disease involving [place] coronary artery of [place] heart without angina pectoris simvastatin 40 mg Take 1 tablet 90 tablet 3 12/13/2019 Active tabletIndications: by mouth at Coronary artery disease bedtime. involving [place] coronary artery of [place] heart without angina pectoris meloxicam 7.5 mg [...] a while, she was getting these from [facility]. She states she's on the risperidone for issues with schizophrenia. Health Maintenance Patient does not want flu vaccine. 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 Medications reviewed in [facility], past medical history and social history and [...] a while, she was getting these from [facility]. Plan: discussed with patient she needs to follow with [facility]. 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 Will check labs for preventative care. Plan: FOLATE, VITAMIN D, 25-OH, VITAMIN B12, LEVEL, VITAMIN B6, PLASMA, VITAMIN B1 (THIAMINE), WHOLE BLOOD, HOMOCYSTEINE Other specified health status Comment: will check labs for preventative care. Plan: HIGH SENSITIVITY CRP Cervical cancer screening Comment: patient is due for cervical cancer screening. Plan: CONSULT/REFERRAL VIDEO TAPE DUPLICATOR Encounter for screening mammogram for breast cancer Comment: patient is due for mammogram. Plan: BI SCREENING MAMMOGRAM BILATERAL Routine adult health maintenance Comment: patient is due for routine labs. Plan: CBC WITH DIFF, COMP. METABOLIC PANEL (71044), LIPID PANEL (34429)(TOTAL CHOLESTEROL, TRIGLYCERIDES, HDL), THYROID STIMULATING HORMONE, FREE [...] Physical Therapy Shanell Foy , PT [address] [place] [address] 12/27/2019 Laboratory Only Cardiology Daya Love M D [address] [place] [address] [address] [place] [address] [phone] Pc, Adc Echo Room 1 - 12/28/2019 Appointment Radiology Joselyn Hook MD [address] [place] [address] 77 15 12/28/2019 Appointment Radiology Joselyn Hook MD [address] [place] [address] 775 15 [phone] 01/06/2020 Office Visit Vascular Surgery Gerard Hart MD [address] [place] [address] [phone] 06/11/2020 Office Visit Cardiology Daya Love M D [address] [facility] [address] [place] [address] [phone] Name Type Priority Associated Diagnoses Order S chedule CBC WITH DIFF LAB Routine Routine adult health Ordere d: 12/16/2019 maintenance COMP. METABOLIC PANEL LAB Routine Routine adult healt h Ordered: 12/16/2019 (25480) maintenance LIPID PANEL (91200)(TOTAL LAB Routine Routine adult h ealth Ordered: 12/16/2019 CHOLESTEROL, maintenance TRIGLYCERIDES, HDL) THYROID STIMULATING LAB Routine Routine adult health Ordered: 12/16/2019 HORMONE maintenance FREE T4 LAB Routine Routine adult health Ordered : 12/16/2019 maintenance FREE T3 LAB Routine Routine adult health Ordered : 12/16/2019 maintenance GLYCOSYLATED HEMOGLOBIN LAB Routine Routine adult hea lth Ordered: 12/16/2019 (A1C) maintenance FOLATE LAB Routine Other terminal operator Ordered: 04/2019 (current) drug therapy VITAMIN D, 25-OH LAB Routine Other terminal operator Ordered: 12/16/2019 (current) drug therapy VITAMIN B12, LEVEL LAB Routine Other retirement Ordere d: 12/16/2019 (current) drug therapy VITAMIN B6, PLASMA LAB Routine Other terminal operator Ordere d: 12/16/2019 (current) drug therapy VITAMIN B1 (THIAMINE), LAB Routine Other retirement Or dered: 12/16/2019 WHOLE BLOOD (current) drug therapy HOMOCYSTEINE LAB Routine Other retirement Ordered: 04/2019 (current) drug therapy HIGH SENSITIVITY [...] Problems Progress Quit using Tobacco Use No [place], tobacco Roberta (cigarettes, smokeless, etc) documented as of this encounter Results Not on filedocumented in this encounter Visit Diagnoses Diagnosis Neck pain, musculoskeletal - Primary Cervicalgia Current drug use Inguinal pain of both sides Abdominal pain, unspecified site Schizophrenia, unspecified type 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
--- OUTSIDE RECORDS SUMMARY | 2020-03-10 03:48 | XMS REPORT | Summary of Care ---
:1960 Author Organization [facility] Address [address] [place] [id number] Care Team Providers Name Role Phone Gatito Chauhan MD Primary Care Provider WilliZeke Insurance Hmo Reason for Referral (Routine) Status Reason Specialty Diagnoses / Referred By Referred To Procedures Contact Contact Authorized Case Management Procedures Rudy King Mary E, RN CONSULT/REFERRAL Herbert monterroso MD [address] [place] [address] [place] [phone] Phone: Other (Routine) Status Reason Specialty Diagnoses / Referred By Referred To Procedures Contact Contact New Request Diagnoses Altered mental status, unspecified altered mental status type Rudy King Anand Procedures Discharge Follow-up: Specialty Provider RUDY KING; 3 Months MD Beverley Lowery MD [address] [facility] [place] [address] Phone: Fax: (Routine) Status Reason Specialty Diagnoses / Referred By Referred To Procedures Contact Contact New Request Family Medicine Diagnoses Altered mental status, unspecified altered mental status type Rudy King, Procedures Discharge Follow-up: PCP BEV CHAUHAN; 3-5 Days MD Bev Lowery MD [address] [place] [address] [address] Phone: [place], [place] [phone] (Routine) Status Reason Specialty Diagnoses / Referred By Referred To Procedures Contact Contact New Request Physical Therapy Diagnoses Altered mental status, unspecified altered mental status type King, Rudy Procedures CONSULT/REFERRAL PHYSICAL THERAPY MD Beverley [address] [place] [phone] MRI/CAT Scan (Routine) Status Reason Specialty Diagnoses / Referred By Referred To Procedures Contact Contact New Request Diagnostic Diagnoses Altered mental status, unspecified altered mental status type Pedro Pablo Newsome, Radiology Procedures CT THORAX W CONTRAST CT THORAX W WO CONTRAST [address] [address] (Routine) Status Reason Specialty Diagnoses / Referred By Referred To Procedures Contact Contact New Request Vascular Surgery Procedures Mandy Lakhani, BILATERAL VENOUS MD DUPLEX LOWER [address] [place] [address] EXTREMITY BY [facility] [place] [address] Radiology Services (STAT) Status Reason Specialty Diagnoses / Referred By Referred To Procedures Contact Contact New Request Diagnostic Diagnoses Altered mental status, unspecified altered mental status type Mandy Lakhani, Radiology Procedures XR CHEST 1 VW MD [address] [place], [place] [address] (Routine) Status Reason Specialty Diagnoses / Referred By Referred To Procedures Contact Contact New Request Diagnostic Diagnoses Altered mental status, unspecified altered mental status type Rudy King Radiology Procedures MOD BARIUM SWALLOW, (COOKIE) MD Beverley [address] [place] [phone] Radiology Services (Routine) Status Reason Specialty Diagnoses / Referred By Referred To Procedures Contact Contact New Request Diagnostic Diagnoses Altered mental status, unspecified altered mental status type Renan Marcial, Radiology Procedures IR Gastro tube change (with Fluoro) [address] [place] [address] Radiology Services (STAT) Status Reason Specialty Diagnoses / Referred By Referred To Procedures Contact Contact New Request Diagnostic Diagnoses Altered mental status, unspecified altered mental status type Leland Richards MD Radiology Procedures XR CHEST 1 VW [address] [place] [phone] Radiology Services (GAVI) Status Reason Specialty Diagnoses / Referred By Referred To Procedures Contact Contact New Request Diagnostic Diagnoses Altered mental status, unspecified altered mental status type Leland Richards MD Radiology Procedures XR KUB [address] [place] [phone] (Routine) Status Reason Specialty Diagnoses / Referred By Referred To Procedures Contact Contact New Request Cardiology Diagnoses Altered mental status, unspecified altered mental status type Leland Richards MD Procedures ECHO ROUTINE W/DOPPLER COLOR [address] [place] [phone] Radiology Services (STAT) Status Reason Specialty Diagnoses / Referred By Referred To Procedures Contact Contact New Request Diagnostic Diagnoses Altered mental status, unspecified altered mental status type Leland Richards MD Radiology Procedures XR CHEST 1 VW [address] [place] [address] Radiology Services (Routine) Status Reason Specialty Diagnoses / Referred By Referred To Procedures Contact Contact New Request Diagnostic Diagnoses Altered mental status, unspecified altered mental status type Ata, Radiology Procedures IR G-TUBE PLACEMENT PERCUTANEOUS IR GASTROENTERIC ARIA Weiss [address] [place] [address]. [place] [address] (Routine) Status Reason Specialty Diagnoses / Referred By Referred To Procedures Contact Contact New Request Cardiology Diagnoses Altered mental status, unspecified altered mental status type Leland Richards MD Procedures ECHO ROUTINE W/DOPPLER COLOR [address] [place] [phone] (Routine) Status Reason Specialty Diagnoses / Referred By Referred To Procedures Contact Contact New Request EEG Diagnoses Altered mental status, unspecified altered mental status type Leland Richards MD Procedures Electroencephalogram (EEG) - Duration of test: Continuous EEG Monitoring (LTM) [address] [place] [phone] Radiology Services (GAVI) Status Reason Specialty Diagnoses / Referred By Referred To Procedures Contact Contact New Request Diagnostic Diagnoses Altered mental status, unspecified altered mental status type Leland Richards MD Radiology Procedures XR KUB [address] [place] [address] Radiology Services (STAT) Status Reason Specialty Diagnoses / Referred By Referred To Procedures Contact Contact New Request Diagnostic Diagnoses Altered mental status, unspecified altered mental status type Leland Richards MD Radiology Procedures XR KUB [address] [place] [phone] (Routine) Status Reason Specialty Diagnoses / Procedures Referred By C ontact Referred To Contact Closed EEG Diagnoses Altered mental status, unspecified altered mental status type Leland Richards MD Procedures Electroencephalogram (EEG) - Duration of test: 20-60 mins [address] [place] [phone] Phone: Radiology Services (Routine) Status Reason Specialty Diagnoses / Referred By Referred To Procedures Contact Contact New Request Diagnostic Diagnoses Altered mental status, unspecified altered mental status type Leland Richards MD Radiology Procedures Abdominal 1 View - To confirm nasogastric tube placement. [address] [place] [phone] MRI/CAT Scan (STAT) Status Reason Specialty Diagnoses / Referred By Referred To Procedures Contact Contact New Request Diagnostic Diagnoses Altered mental status, unspecified altered mental status type Cocaine abuse Leland Richards MD Radiology Procedures CT ANGIOGRAM NECK [address] [place] [address] MRI/CAT Scan (STAT) Status Reason Specialty Diagnoses / Referred By Referred To Procedures Contact Contact New Request Diagnostic Diagnoses Altered mental status, unspecified altered mental status type Cocaine abuse Leland Richards MD Radiology Procedures CT ANGIOGRAM HEAD [address] [place] [address] MRI/CAT Scan (STAT) Status Reason Specialty Diagnoses / Referred By Referred To Procedures Contact Contact New Request Diagnostic Diagnoses Altered mental status, unspecified altered mental status type Cocaine abuse Leland Richards MD Radiology Procedures MR BRAIN WO CONTRAST MR BRAIN WO CONTRAST [address] [place] [phone] (Routine) Status Reason Specialty Diagnoses / Procedures Referred By Nirav chan To Contact Contact New Request Cardiology Diagnoses Altered mental status, unspecified altered mental status type Cocaine abuse Leland Richards MD Procedures STROKE Protocol - Echocardiogram Routine with Doppler Color [address] [place] [address] Radiology Services (STAT) Status Reason Specialty Diagnoses / Referred By Referred To Procedures Contact Contact New Request Diagnostic Diagnoses Altered mental status, unspecified altered mental status type Ang Mclean, Radiology Procedures XR CHEST [address] [place] [address] MRI/CAT Scan (STAT) Status Reason Specialty Diagnoses / Referred By Referred To Procedures Contact Contact New Request Diagnostic Diagnoses Altered mental status, unspecified altered mental status type Ang Mclean, Radiology Procedures CT HEAD WO CONTRAST [address] [place], [place] [phone] Reason for Visit Reason Comments Altered mental status Auth/Cert Status Reason Specialty Diagnoses / Referred By Referred To Procedures Contact Contact Medicine - [facility] only Transfers [address] [place] [phone] Encounter Details Date Type Department Care Team Description 12/24/2019 - Hospital Neurology/Neurolog Nayeli Mclean MD [address] [place] [address] [address] [place], [place] [phone] Acute ischemic left 01/11/2020 Encounter ical Surgery (Leland Frarie MD [address] [place] [address] MCA stroke 11B) [address] [place] [address] Allergies No Known Allergiesdocumented as of this encounter (statuses as of 01/11/2020) Medications Medication Sig Dispensed Refills Start Date End Date Status amLODIPine 10 mg Take 1 tablet 30 tablet 0 01/04/2020 Active tabletIndications: through Altered mental enteral tube status, unspecified daily. altered mental status type atorvastatin 40 mg Take 1 tablet 30 tablet 0 01/03/2020 Active tabletIndications: through Altered mental enteral tube status, unspecified at bedtime. altered mental status type risperiDONE 0.5 mg Take 1 tablet 60 tablet 0 01/03/2020 Active tabletIndications: through Altered mental enteral tube status, unspecified 2 (two) times altered mental status daily. type Polyethylene Glycol Take 1 Packet 60 Packet 0 01/03/2020 Active 3350 17 gram through powderIndications: enteral tube Altered mental 2 (two) times status, unspecified daily. altered mental status type famotidine 20 mg Take 1 tablet 30 tablet 10 01/03/2020 Active tabletIndications: by mouth 2 Altered mental (two) times status, unspecified daily. altered mental status type lisinopriL 40 mg Take 1 tablet 30 tablet 11 01/03/2020 Active tabletIndications: by mouth Altered mental daily. status, unspecified altered mental status type clopidogreL 75 mg Take 1 tablet 30 tablet 2 01/11/2020 02 Active tabletIndications: through 1 Altered mental enteral tube status, unspecified daily for 90 altered mental status days. type aspirin 81 mg Take 1 tablet 30 tablet 11 01/11/2020 A ctive chewable through 1 tabletIndications: enteral tube Altered mental daily. status, unspecified altered mental status type levETIRAcetam 100 Take 7.5 mL 473 mL 2 01/11/2020 Active mg/mL oral through solutionIndications: enteral tube Altered mental 2 (two) times status, unspecified daily. altered mental status type citalopram (CELEXA) Take 1 Tab by 30 Tab 4 08/23/201301/02 Discontinued 40 mg tablet mouth daily. 0 risperiDONE Take 1 Tab by 30 Tab 4 08/23/2013 Dis continued (RISPERDAL) 2 mg mouth every 0 tablet morning. aspirin 81 mg EC Take 1 tablet 0 07/08/2017 01/03/20 2 Discontinued tablet by mouth 0 daily. metoprolol succinate Take 1 tablet 90 tablet 3 12/13/201912/15 Discontinued XL 50 mg 24 hr by mouth 0 tabletIndications: daily. Coronary artery disease involving [place] coronary artery of [place] heart without angina pectoris simvastatin 40 mg Take 1 tablet 90 tablet 3 12/13/2019 02 Discontinued tabletIndications: by mouth at 0 Coronary artery bedtime. disease involving [place] coronary artery of [place] heart without angina pectoris meloxicam 7.5 mg Take 1 tablet 60 tablet 3 12/16/2019 01/03/20 2 Discontinued tabletIndications: by mouth 0 Neck pain, daily. Ok to musculoskeletal take 15mg daily (2 tablets) if 1 tablet does not help the pain. Take with food. aspirin 81 mg EC Take 1 tablet 30 tablet 0 01/04/2020 01/03/20 2 Discontinued tabletIndications: by mouth 0 Altered mental daily for 30 status, unspecified days. altered mental status type risperiDONE 0.5 mg Take 1 tablet 60 tablet 0 01/03/2020 Discontinued tabletIndications: through 0 Altered mental enteral tube status, unspecified 2 (two) times altered mental status daily for 31 type days. levETIRAcetam 100 Take 7.5 mL 473 mL 0 01/03/2020 Discontinued mg/mL oral through 0 solutionIndications: enteral tube Altered mental 2 (two) times status, unspecified daily. altered mental status type lisinopriL 20 mg Take 1 tablet 60 tablet 0 01/03/2020 01/03/20 2 Discontinued tabletIndications: by mouth 2 0 Altered mental (two) times status, unspecified daily. altered mental status type Polyethylene Glycol Take 1 Packet 60 Packet 0 01/03/202001/02 Discontinued 3350 17 gram through 0 powderIndications: enteral tube Altered mental 2 (two) times status, unspecified daily. altered mental status type famotidine 40 mg/5 mL Take 2.5 mL 150 mL 0 01/03/202001/02 Discontinued (8 mg/mL) through 0 suspensionIndications enteral tube : Altered mental 2 (two) times status, unspecified daily for 31 altered mental status days. type clopidogreL 75 mg Take 1 tablet 30 tablet 0 01/04/2020 02 Discontinued tabletIndications: through 0 Altered mental enteral tube status, unspecified daily. altered mental status type aspirin 81 mg EC Take 1 tablet 30 tablet 0 01/04/2020 01/11/20 2 Discontinued tabletIndications: by mouth 0 Altered mental daily. status, unspecified altered mental status type lisinopriL 40 mg Take 1 tablet 30 tablet 0 01/03/2020 01/03/20 2 Discontinued tabletIndications: by mouth 0 Altered mental daily. status, unspecified altered mental status type documented as of this encounter (statuses as of 01/11/2020) Active Problems Problem Noted Date Respiratory distress 12/29/2019 E44.0 Moderate protein calorie malnutrition 12/27/2019 Cocaine abuse 12/25/2019 At risk for seizures 12/25/2019 Acute ischemic left MCA stroke 12/24/2019 Coronary artery disease without angina pectoris 2015 HTN (hypertension) 07/23/2015 Chest pain 07/22/2015 PAD (peripheral artery disease) 05/10/2015 documented as of this encounter (statuses as of 01/11/2020) Social History Tobacco Use Types Packs/Day Years [...] last month, have you been in contact Unable to assess 12/24/2019 12:16 PM CDT with someone who was confirmed or suspected to have 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 documented as of this encounter Last Filed Vital Signs Vital Sign Reading Time Taken Comments Blood Pressure 121/58 01/11/2020 3:00 PM CDT Pulse 88 01/11/2020 3:00 PM CDT Temperature 36.6 C (97.8 F) 01/11/2020 3:00 PM CDT Respiratory Rate 20 01/11/2020 3:00 PM CDT Oxygen Saturation 96% 01/11/2020 3:00 PM CDT Inhaled Oxygen Concentration - - Weight 52 kg (114 lb 9.6 oz) 01/10/2020 1:00 PM CDT Height 160 cm (5' 3") 12/24/2019 4:00 PM CDT Body Mass Index 20.3 12/24/2019 4:00 PM CDT documented in this encounter Discharge Summaries Rudy King MD - 01/11/2020 3:08 PM CDTVascular Neurology attending attestation/addendum: Patient was seen and examined by me with the stroke team during the rounds. I actively participated in evaluation, management and developing the plan of care for this patient. History and ROS grossly obtained from the chart review, discussed with patient at bedside. Please refer to neurology resident's note for details with additions/exceptions as below. 59 years old woman with multiple vascular risk factors including age, HTN, CAD s/p PCIs, PAD and substance abuse is evaluated at [facility] for right hemiplegia, right HH global aphasia and partial right gaze palsy due to left MCA distribution stroke in this patient with left proximal/cervical ICA occlusion with on current tandem left MCA mid-M1 occlusion - likely mechanism being large vessel disease i.e. Left cervical/proximal ICA steno-occlusive disease with tandem left MCA occlusion and subsequent local thrombosis. TTE remarkable for low LVEF, 30-35% with regional wall motion abnormalities without anyevidence of LV thrombus nor showed any interatrial shunt. Patient noted to have some improvement in her mental status in form of regarding the examiner but still continued to have right hemiplegia and global aphasia. Trending down WBCs, no fevers while being monitored off of antibiotics as per ID recommendations. Plan: Short duration dual antiplatelet therapy for 3 weeks for aggressive secondary stroke prevention followed by aspirin. Atorvastatin 80 mg at bedtime, LDL 109. HbA1c 5.2, continue with aggressive vascular risk factors modification. Evaluation and management of low LVEF/CAD workup as percardiology team. Continue telemetry. Plan for prolonged cardiac monitoring with 30 days event monitor as outpatient. PT/OT/speech and swallow evaluation. 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 Routine EEG showed moderate diffuse slowing, focal slowing over the left hemisphere without any epileptiform discharges or electrographic seizures. Appreciate recommendations from ID, IR team and wound care regarding pus discharge from the PEG site. Follow-up on the results of CT chest. Awaiting final recommendations from the ID team. Continue with Rogers catheter with Rogers care. Continue with bolus PEG tube feeding. Marcelino discharged home with home health with wound care. More than 36 minutes were spent in evaluation and management of this patient, more than 50% of the time was spent in counseling and coordinating care for this patient including discharge planning. documented in this encounter Discharge Instructions AttachmentsThe following attachments cannot be sent through Care Everywhere. Self-Care, Stroke (Libyan)Stroke, Discharge Instructions for (Libyan)Stroke, Preparing for Home Care After: For Caregivers (Libyan)Stroke, Completed (Libyan)Stroke, Effects on the Brain and Body (Libyan)Stroke, Risk Factors for (Libyan)Stroke, Self-Care After: For Caregivers (Libyan)Stroke, Symptoms (Libyan)Stroke, the First Few Hours After a (Libyan)Stroke: Resources and Support (Libyan)PEG Tube Feeding, Understanding (Libyan)documented in this encounter Progress Notes Abdifatah Damon V RN - 01/11/2020 2:28 PM CDT Care Management Discharge Disposition Note (DCDN) 5-2-1 Interventions: Disease specific education;Intensive medication reconciliation/management;Home visit/home health referral;Clear discharge plan;Teach back;Follow-up appointments;Follow-up phone calls 5-2-1 Providers: Physician;Boy'S Adviser/Roll Coverer;Nurse 5-2-1 Patient Capacity Improvements: Avoidance of adverse events/readmission;Transportation arrangements Discharge Plan for ongoing care and services: Home Health ();Durable Medical Equipment Patient Choice completed for referred services: Yes Discussed with patient/patients family involved in decision making: Patient or family caregiver understands, and agrees with discharge plan Patient's family or support contact: Ayah Thrasher [place] Discharge Plan: Home Health (HH);Durable Medical Equipment DME location: [facility], [address] [place], [place] () [phone] (F) [phone] Other DME location: Durable Medical Equipment: Bedside Commode;Diapers/Underpants;Wheelchair;Hospital Bed;Betzy Lift;Other(Jevity Feeding) Home Health location: [facility] [address] [facility] [address] [place] [address] (P) [phone] (F) [phone] Discharge location(s): Home Health location: [facility] [address] [facility] [address] [place] [address] (P) [phone] (F) [phone] DME location: [facility], [address] [place], [place] () [phone] (F) [phone] Community resources/referrals made or provided to patient: Yes Resources/Referrals: CHP Mental Status: Not Alert/Oriented Psychosocial issues and/or concerns resulting in patient being a high risk for re-admission: Healthcare literacy Manage ADL indepentdly: No Living Arrangement: Home Address of living arrangement: Ayah Scanlon Address: [address] [place] Funding Resources: Medicaid HMO Has patient been referred to [facility]? Nursing informed of discharge plan: No CHP referral sent? Yes CM medication request completed (if appropriate): Yes PCP: Yes BEV CHAUHAN Transportation: Ambulance Prior authorization obtained for ambulance:Yes Authorization number: auth # [id number] CPT code: A0428 - Ambulance service, basic life support, non-emergency transport Discharge Medications Will the patient be able to obtain his medications? Yes Does the patient have transportation to to obtain the prescription medications? [facility] (see comments)(Meds to beds done.) CM Medication Request completed (if appropriate): [facility] (see comments)(Meds to beds done.) Name of RN informed: GILA Workman Expected discharge date: 01/11/2020 Time: Afternoon [30] Additional Information: CM/SW Name & Contact number: Abdifatah Damon RN Ph. [phone] The following information has been provided to the facility noted above: reason for the patient discharge or transfer; patients physical and psychosocial status; summary of care, treatment, servicesprovided to patient; and the patient progress toward goals. CHP Handoff I: IDENTITY and Location Patient discharge location/services: Home D: DIAGNOSIS and Current Condition Reason for admission or clinic visit: CVA/ Stroke Brief relevant PMH: 59 years old woman with multiple vascular risk factors including age, HTN, CAD s/p PCIs, PAD and substance abuse is evaluated at [facility] for right hemiplegia, right HH global aphasia and partial right gaze palsy due to left MCA distribution stroke in this patient with left proximal/cervical ICA occlusion with on current tandem left MCA mid-M1 occlusion - likely mechanism being large vessel disease i.e. Left cervical/proximal ICA steno-occlusive disease with tandem left MCA occlusionand subsequent local thrombosis. TTE remarkable for low LVEF, 30-35% with regional wall motion abnormalities without any evidence of LV thrombus nor showed any interatrial shunt. Patient noted to have some improvement in her mental status in form of regarding the examiner but still continued to have right hemiplegia and global aphasia. Trending down WBCs. Plan: Short duration dual antiplatelet therapy for 3 weeks for aggressive secondary stroke prevention followed by aspirin. Atorvastatin 80 mg at bedtime, LDL 109. HbA1c 5.2, continue with aggressive vascular risk factors modification. Evaluation and management of low LVEF/CAD workup as per cardiology team. Continue telemetry. Plan for prolonged cardiac monitoring with 30 days event monitor as outpatient. PT/OT/speech and swallow evaluation. 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 Routine EEG showed moderate diffuse slowing, focal slowing over the left hemisphere without any epileptiform discharges or electrographic seizures. Appreciated recommendations from ID, IR team and wound care regarding pus discharge from the PEG site. Continue to trend WBC and mon itor without antibiotics Chronic Diagnosis: Other stroke E: EVENTS Relevant to CHP/AMRGARET Intervention Primary Support System Name/Address/Phone: Primary Contact: Ayah Scanlon Address:[address] [place] [address] [address] [place] [address] Psychosocial issues and/or concerns resulting in patient being a high risk for re-admission: (e.g. Lack of funding, lack of social support, inability to complete teach back, etc). Patient is bed bound after CVA. aphasia and R sided weakness. Daughter ayah has completed care givertraining and wants patient to discharge home with her in [place]: [address] [place], [id number] Funding Source: Medicaid HMO: Charles PCP: (does patient have a PCP or do they need to establish care, include PCP name) Yes: BEV CHAUHAN County of Residence: [facility] A: ANTICIPATED and ASSIGNED Needs Anticipated Needs: (e.g. Be specific: patient is unfunded with one of the follow needs: has one of the above chronic diagnosis-patient in need of disease mgmt, frequent re-admissions, needs to establish PCP, Follow up with [facility], follow up with Medicaid/SSI application, follow up with PAP, county applications, etc). Patient will need EMS auth to follow up appointments. Patient's next PCP appointment is Scheduled for 01/23/20 at 1300 with BEV CHAUHAN in [place], [place]. Patient set up with [facility] [address] [facility] [address] [place] [address] (Ph) [phone] (F) [phone] Ayah [employer] has been given elderly caregiver training with PT/OT and Nursing. Meds to bed completed for patient. Patient is discharging with 30 day supply of medications. All DME including WC, Hospital bed, Betzy lift, Jevity Feedings, peg tube supplies, BSC, has all been delivered to patient's Daughter home in [place]. Patient could benefit from sr. merchandise planner from [facility]. I called charles and left voice mail for C[employer]. [facility] Villasenor ph [phone], [phone], so she can assist patient with getting provider services set up. L: LEAVE Time for Follow-up Transferring CC/SW name and phone number: Julian Damon [phone] Camilo Schwab OT - 01/11/2020 2:01 PM CDTOCCUPATIONAL THERAPY NOTE: Discharge Recommendations: Therapy Needs and Potential:- Patient would benefit from continued skilled occupational therapy services to address:Decline in basic activities of daily living, Decline in instrumental activities of daily living, Decline in cognition, Decreased strength, Decreased range of motion, Decreased endurance, Decreased coordination and Caregiver training - Patient exhibits limited activity tolerance. - Patient able to follow commands: 1-stepNo, Multi-stepNo, InconsistenciesNo Challenges to Home Transition:- Requires physical assistance for BADLS - Requires physical assistance for IADLS - Requires supervision or verbal cues for BADLS - Requires supervision or verbal cues for IADLS - No caregiver support - Decreased safety awareness/judgement - Increased risk of falls Equipment Recommendations: discharge home today would recommendHospital bed, Low air loss mattressand Mechanical lift Precautions: WB: NA General: PPE Utilized: Gloves and Surgical mask, Fall, Feeding tube and HOB at 30 degrees Bracing: N/A S: Family agreeable for patient to participate in occupational therapy. PAIN Pre-treatment: 0/10 pain. Post-treatment: 0/10 pain. O: Patient found semireclining in bed. Vital signs stable . Patient seen this date for the following: ADL Training UB Dressing: Moderate assist LB Dressing: Maximal assist Toileting Hygiene: Maximal assist. of 2 for cleanup and brief change Patient educated about the following adaptive equipment: hospital bed , Mechanical lift. Handout issued, No. Patient educated about fall prevention and safety awareness. Handout issued, No. - educated family on ADL's and equipment use at home Patient left in semichair position in bed with call gonzalez in reach. Vital signs stable and Bed alarm engaged, nursing staff notified. . A: Patient exhibited Good participation in therapy and responded well to treatment this session. Patient is progressing toward goal(s) 3, 4 and 5. Poor endurance and Persistent weakness remain(s) a limiting factor. Patient continues to present with Decreased independence with ADL, Impaired postural co ntrol, Decreased strength/endurance for functional activity, Impaired safety awareness and Impaired Cognition and will benefit from continued OT services to address above areas and improve functional status. P: Patient/Caregivier Education, Equipment recommendations, Daily living activities, Therapeutic exercises, Neuromuscular Re-Education and Cognitive retraining Juan Ramon FROST/Zeke Pager [phone] Supervising OTR Cristina Marinelli Total Timed Treatment Codes:39 Min Total Treatment Time: 39 Min Roberta Hare PTA - 01/11/2020 1:32 PM CDT Physical Therapy Progress Note: Discharge Recommendations: Therapy Needs and Potential: Patient would benefit from continued physical therapy services to address:decline in bed mobility decline in transfers decline in gait and/or balance decreased strength Patient exhibits limited ability to follow commands. Challenges to Home Transition: increased risk of falls decreased safety awareness Patient will need significant physical assistance for bed mobility and transfers Equipment recommendations: Hospital bed with air loss mattress, betzy lift, reclining wheel chair with seat belt and elevating leg rest , ROHO cushion. PAIN: unable to verbalize, does not appear in distress PRECAUTIONS: Weight Bearing Precaution: WBAT General Precautions: PPE used:Gloves and Surgical mask, Fall, Rogers catheter, PEG tube Bracing/Cast present or required: N/A S: Patient agreeable to working with PT. O: Patient met Semi reclined in bed, SCD sleeves on and machine turned on. Patient seen for the following: Bed mobility: Repositioned patient to head of bed: Dependent, x 2 semi-reclined <-> long sitting: Dependent Cued patient on sitting upright however patient unable to follow commands or return correct demo Therapeutic exercise: instructed patient in the following: ankle pumps, heel slides, hip abduction/adduction, hip internal/external rotation, straight leg raises, short arc quads Cued patient on assisting with BLE exercises After session, patient Semi reclined in bed, SCD sleeves on and machine turned on, Bed alarm on andcall gonzalez provided. A: Patient tolerated session fair. Pt not following direct commands however with voluntary movementswithout command throughout session. P: PT will - progress functional mobility, strength and endurance. Total Timed Tx Codes in Minutes: 20 Min Total Treatment Time in Minutes: 20 Min Roberta Brito PTA Pager # [phone] Supervising PT David Abe Abdifatah Simpson RN - 01/11/2020 8:28 AM CDTCare Management Note: CM faxed signed hh order to [address] [place] [address] (Ph) [phone] (F) [phone]. Julian Damon Jr., RN, BSN. Boy'S Adviser [phone] [email or web address] Keshia Urbano, WEB CONTENT EXECUTIVE - 01/10/2020 4:18 PM [facility] Daily Progress Note - 01/10/2020 [id number] Funmilayo Mcmillan : 1960 Age: [age] year old Sex: female SUBJECTIVE: Patient alert/awake upon arrival. MD present for part of session. OBJECTIVE: Funmilayo Mcmillan was seen for 1 WEB CONTENT EXECUTIVE treatment session/s on this date. Treatment was provided due to dysphagia and aphasia. Patient is a 59 year old female admitted for AMS, aphasia and R sided weakness with PMH significant for HTN, CAD s/p PCI, drug abuse (hx of cocaine abuse), bipolar, PAD. NIHSS 21. MRI Brain demonstrated large infarct in left MCA territory without hemorrhagic transformation.PEG placed on 12/29. Patient now with leukocytosis - ID consulted. MBS (01/03/20) Impressions: severe oral and moderate pharyngeal dysphagia; penetration and flash aspiration of nectar-thick liquids and chewable solid (PAS 5, 6); deep penetration and silent aspirationof thin liquids (PAS 5, 8) Progress on short term goals was as follows: Swallowing: - Patient/family/staff will verbalize importance of and demonstrate compliance to strict oral hygiene care with mod cues: Patient more agreeable to oral hygiene care this date, allowing WEB CONTENT EXECUTIVE to clean oral cavity with oral brush/swab only intermittently biting down on brush. Patient's sparse lower dentition noted to be in poor condition. No significant dried secretions. No family present. Will continue education with family and staff in the coming days. (progressing, continue goal) - Patient/family/staff will verbalize precautions for and demonstrate compliance with free water protocol with mod cues: After oral care (limited as described above), patient given single tsp of water after which she was observed to cough. No further trials given. (continue goal) - Patient will complete base of tongue, strap muscle, and airway protection exercises with minimal cues 80% of the time (may defer pending on ability to follow directions) Patient still unable to follow directions. Goal no longer indicated. (discontinue goal) - Patient will accept PO trials of varying consistencies using bolus-driven therapy with a trained swallow technique without overt concern for aspiration 80% of the time (initiation of task pending oral hygiene care). Will initiate goal pending patient's continued ability to receive thorough oral care. (goal pending) Verbal Expression: - Patient will communicate basic wants/needs via any language modality (i.e. naming, gesturing, picture communication board) with 80% accuracy and moderate cues. Despite max cues (direct modeling, hand over hand, etc), patient did not communicate via any modality. Patient has not demonstrated progress since goal initiated on 12/28/19. Will discontinue goal. (discontinue goal) - Patient will recite automatic speech sequences (i.e. counting, days of week, etc) with moderate cues 80% of the time. Despite max cues (direct modeling,melodic intonation), patient did not attempt to recite numbers 1-3or days of week. Patient has not demonstrated progress since goal initiated on 12/28/19. Will discontinue goal. (discontinue goal) Auditory Comprehension: goal not addressed this date - Patient will answer simple yes/no questions with 80% accuracy. Patient made no attempt to answer yes/no questions in all 5 trials verbally or with gestures. Patient has not demonstrated progress since goal initiated on 12/28/19. Will discontinue goal. (discontinuegoal) - Patient will follow one-step commands using body parts with moderate cues 80% of the time. Patient followed simple 1-step commands in 0/5 trials despite max cues (direct modeling, [id number], etc). She has not demonstrated progress since goal initiated on 12/28/19. Will discontinue goal.(discontinue goal) ASSESSMENT: Funmilayo Mcmillan continues to present with severe oral and moderate pharyngeal dysphagia as a result of L CVA with marked impairments in oral bolus control/efficiency and airway protection. Swallowing therapy focused on completion of oral hygiene care, which patient more agreeable to this date. She was presented with single tsp of water after oral care and observed to cough. As patient with recently developed leukocytosis, it is possible that patient is aspirating her secretions especially as has oral care has been limited. At this time, would hold off on free water protocol until patient able to receive consistent thorough oral care. As for speech-language, patient continues to be globally aphasic and has made minimal-no progress since her evaluation on 12/27. Goals no longer indicated in the acute setting. While it is possible that patient could have improved functional communication with time, this is not likely to happen without intense and frequent skilled WEB CONTENT EXECUTIVE therapy (i.e. in neuro rehab). Should patient discharge home, recommend 24/7 supervision as patient would not be able to communicate in the event of an emergency. WEB CONTENT EXECUTIVE will continue while in-house for dysphagia management. PLAN: 1. Recommend patient remain NPO andcontinue with alternative means of nutrition/hydration (PEGinplace). 2. Recommend elevated head of bed and frequent, thorough oral hygiene care due to high risk for aspiration including aspiration of her secretions. 3. Recommend WEB CONTENT EXECUTIVE therapy 2-5x/wk for 15-45 min/session to address the above goals. 4. Discharge recommendation: continued WEB CONTENT EXECUTIVE therapy at d/clocation (HH/OP speech consult if d/c home); 24/7 supervision/assist d/t safety risk Keshia Lugo M.S. [facility]-WEB CONTENT EXECUTIVE Speech-Language Pathologist Office: [phone] Pager: [phone] Abdifatah Damon RN - 01/10/2020 1:52 PM CDTCare Management Note: REY called patient's daughter Ayah [employer] , to confirm that patient's DME has been delivered. Ayah stated all DME has been delivered, however, a standard wheelchair was delivered and not a reclining wheelchair. On DME order it reads Reclining wheelchair. CM will reach out to [address] [place]. [address] Phone: [phone] to resolve issue. UPDATE: REY spoke to Elena who stated insurance did not approve Reclining wheelchair and only approved Standard wheelchair. CM called [address], [address] [place] [address] Office: check status of referral. [facility] does not [facility] [place] the [place] be discharging. HH referral sent to [facility] [address] [place], [place] (PH) [phone] (F) [phone] to run benefits. CM will follow up. UPDATE 01/10/20 3:44 PM CM received call from [facility] who stated they are not in network with patient's insurance. CM faxed referral to [facility] [address] [facility] [address] [place] [address] (Ph) [phone] (F) [phone], who state they do accept patient;s insurance and are reviewing patient's clinicals to see if they will be able to accept patient. CM will follow up. Julian Damon Jr. RN, BSN. Boy'S Adviser [phone] [email or web address], Rudy Lowery MD - 01/10/2020 1:21 PM CDTVascular Neurology attending attestation/addendum: Patient was seen and examined by me with the stroke team during the rounds. I actively participated in evaluation, management and developing the plan of care for this patient. History and ROS grossly obtained from the chart review, discussed with patient at bedside. Please refer to neurology resident's note for details with additions/exceptions as below. 59 years old woman with multiple vascular risk factors including age, HTN, CAD s/p PCIs, PAD and substance abuse is evaluated at [facility] for right hemiplegia, right HH global aphasia and partial right gaze palsy due to left MCA distribution stroke in this patient with left proximal/cervical ICA occlusion with on current tandem left MCA mid-M1 occlusion - likely mechanism being large vessel disease i.e. Left cervical/proximal ICA steno-occlusive disease with tandem left MCA occlusion and subsequent local thrombosis. TTE remarkable for low LVEF, 30-35% with regional wall motion abnormalities without anyevidence of LV thrombus nor showed any interatrial shunt. Patient noted to have some improvement in her mental status in form of regarding the examiner but still continued to have right hemiplegia and global aphasia. Trending down WBCs. Plan: Short duration dual antiplatelet therapy for 3 weeks for aggressive secondary stroke prevention followed by aspirin. Atorvastatin 80 mg at bedtime, LDL 109. HbA1c 5.2, continue with aggressive vascular risk factors modification. Evaluation and management of lowLVEF/CAD workup as per cardiology team. Continue telemetry. Plan for prolonged cardiac monitoring with 30 days event monitor as outpatient. PT/OT/speech and swallow evaluation. 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 Routine EEG showed moderate diffuse slowing, focal slowing over the left hemisphere without any epileptiform discharges or electrographic seizures. Appreciated recommendations from ID, IR team and wound care regarding pus discharge from the PEG site. Continue to trend WBC and monitor without antibiotics. Follow-up on the results of CT chest. Awaiting further recommendations from the ID team. More than 36 minutes were spent in evaluation and management of this patient, more than 50% of the time was spent in counseling and coordinating care for this patient. Elin Landrum - 01/10/2020 9:53 AM CDT Medical Nutrition Therapy Progress Note Subjective: Patient tolerating EN well per RN. Had large BM last night - was given bowel regimen. Weighed with bedscale at 114.6 lbs. Patient Active Problem List Diagnosis PAD (peripheral artery disease) Chest pain Coronary artery disease without angina pectoris HTN (hypertension) Acute ischemic left MCA stroke Cocaine abuse At risk for seizures E44.0 Moderate protein calorie malnutrition Respiratory distress Medications: Current Facility-Administered Medications: acetaminophen (TYLENOL) 160 mg/5 mL liquid 650 mg, 650 mg, Enteral, Q4HPRN, Abhishek Berumen MBBS, 650 mg at 01/09/20 0844 mupirocin (BACTROBAN OINT) 2 % skin ointment, , Topical, TID, Pedro Pablo Newsome MBBS lisinopriL (PRINIVIL,ZESTRIL) tablet 20 mg, 20 mg, Enteral, BID, Pedro Pablo Newsome MBBS, 20 mg at 01/10/20 0808 amLODIPine (NORVASC) tablet 10 mg, 10 mg, Enteral, DAILY, Abhishek Berumen MBBS, 10 mg at 01/10/20 0808 clopidogreL (PLAVIX) tablet 75 mg, 75 mg, Enteral, DAILY, Abhishek Berumen MBBS, 75 mg at 01/10/20 0807 risperiDONE (RISPERDAL) tablet 0.5 mg, 0.5 mg, Enteral, BID, Abhishek Berumen MBBS, 0.5 mg at 01/10/20 0808 acetylcysteine (MUCOMYST) 200 mg/mL (20 %) solution 200 mg, 1 mL, Inhalation, Q6H, Abhishek Berumen MBBS, 800 mg at 01/10/20 0720 chlorhexidine (PERIDEX) 0.12 % mouthwash 15 mL, 15 mL, Oral (Swish And Spit Out), Q6H, Abhishek Berumen MBBS, Stopped at 01/06/20 1200 ipratropium-albuteroL (DUONEB) 0.5 mg-3 mg(2.5 mg base)/3 mL nebulizer solution 3 mL, 3 mL, Inhalation, Q6H ABX, Jason Bloom MD, 3 mL at 01/10/20 0720 Saline Bubble Study, 6 mL, Injection, SEE-INSTRUCTIONS, Michelle Avery MD, 6 mL at 12/29/19 1500 Saline Bubble Study, 6 mL, Injection, SEE-INSTRUCTIONS, Michelle Avery MD, 6 mL at 12/29/19 1500 levETIRAcetam (KEPPRA) 100 mg/mL oral solution 750 mg, 750 mg, Enteral, BID, Abhishek Berumen MBBS, 750 mg at 01/10/20 0808 Polyethylene Glycol 3350 (MIRALAX) powder 17 g, 17 g, Enteral, BID, Leland Richards MD, Stopped at 01/07/20 0800 sennosides-docusate sodium (SENOKOT-S) 8.6-50 mg per tablet 1 tablet, 1 tablet, Enteral, BID, Leland Richards MD, Stopped at 01/07/20 0800 hydralAZINE (APRESOLINE) injection 10 mg, 10 mg, Slow IV Push, Q6HPRN, Abhishek Berumen, BONILLABS, 10 mg at 01/04/202039 aspirin EC tablet 81 mg, 81 mg, Enteral, DAILY, Pedro Pablo Newsome MBBS, 81 mg at 01/10/20 08 atorvastatin (LIPITOR) tablet 40 mg, 40 mg, Enteral, QHS, Pedro Pablo Newsome MBBS, 40 mg at 01/09/202022 famotidine (PEPCID) 40 mg/5 mL (8 mg/mL) suspension 20 mg, 20 mg, Enteral, BID, [facility] Center[facility], ARIA, 20 mg at 01/10/20 08 heparin (porcine) injection 5,000 Units, 5,000 Units, Subcutaneous, Q12H, Pedro Pablo Newsome MBBS, 5,000 Units at 01/10/20 08 Lab and Medical Test Results: 01/08/2020 01:05 01/09/2020 03:47 01/10/2020 03:12 WBC x10^3 14.88 (H) 16.99 (H) 11.21 (H) RBC x10^6 4.17 4.32 3.57 (L) HGB 13.1 13.5 11.2 (L) HCT 39.3 40.9 34.1 (L) MCV 94.2 94.7 95.5 MCH 31.4 31.3 31.4 MCHC 33.3 33.0 32.8 01/05/2020 08:56 01/07/2020 04:38 NA 145 140 K 4.7 4.5 CL 110 (H) 107 CO2 TOTAL 28 28 AGAP 7 5 BUN 32 (H) 34 (H) GLUCOSE 103 113 (H) CREATININE 0.77 0.70 eGFR CALCULATION (non ) 77.0 85.9 01/05/2020 08:56 01/05/2020 18:45 01/07/2020 04:38 CALCIUM 9.9 9.7 01/09/2020 16:38 ALBUMIN 2.9 (L) Weight History: Wt Readings from Last 10 Encounters: 12/30/19 48 kg (105 lb 13.1 oz) 12/16/19 51.3 kg (113 lb 3.2 oz) 12/13/19 51.4 kg (113 lb 6.4 oz) 02/01/19 53.3 kg (117 lb 8 oz) 01/25/19 54.3 kg (119 lb 12.8 oz) 11/14/18 51.3 kg (113 lb) 10/01/18 51.6 kg (113 lb 12.8 oz) 07/13/18 52.4 kg (115 lb 8 oz) 07/01/18 52.6 kg (116 lb) 01/04/18 53.2 kg (117 lb 4.8 oz) Inflammatory Markers: Elevated WBC and Hyperglycemia Current Dietary Order(s): NPO Diet. Estimated Daily Nutritional Needs: Calories: 0885-8471 kcal/day = 30-35 kcal/kg current wt Protein: 38-58 g/day = 0.8-1.2 g/kg current wt Fluid: 1262-7878 mL/day or per MD; adjust per acute needs Nutrition Diagnosis: Moderate protein calorie malnutrition related to suspected inadequate oral intake d/t lifestyle choices as evidenced by moderate fat loss to orbital region, moderate muscle loss to quadriceps and temporal regions, and 7.1% weight loss x 1 week. Interventions: ? 5.5 cartons of Jevity 1.2 per day (1320 mL) Ex: 2 cans @ 0800, 1 cans @ 1200, 1 cans @ 1700, 1.5 cans @ 2000 EN will provide 1584 kcal, 73 g protein, 1065 ml free water For best tolerance, formula at room temperature. Suggest bolusing slowly over >15-30 minutes. Edroy or longer bolus time may be needed per pt's individual tolerance/preference Fluid provided by formula alone at goal above is not sufficient to maintain hydration. Suggest 65mL free water before and after each bolus feed (assuming 4 bolus feeds per day) or additional water per MD discretion. Continue bowel regimen as needed. Goals: 1. Meet >75% of nutrition needs with EN. Monitoring and Evaluation: A registered dietitian will follow up by 01/16. Please call with any questions or concerns, thank-you. D/C Planning: See bolus recommendations above. Evelyn Wolf, MS, RD, LD Clinical Dietitian Office: [id number] Geovany Cruz MD - 01/10/2020 9:14 AM CDT INFECTIOUS DISEASES F/U NOTE Reason for Consultation: leucocytosis Chief Complaint: aphasia, rt sided weakness, AMS Interval history: patient seen examined, moving all her extremities, continues to be aphasic. Got CT chest showing lung nodule with rt hilar LNpathy. Medications: Current Facility-Administered Medications Medication Dose Route Frequency Last Rate Last Dose acetaminophen (TYLENOL) 160 mg/5 mL liquid 650 mg 650 mg Enteral Q4HPRN 650 mg at 01/09/20 0844 mupirocin (BACTROBAN OINT) 2 % skin ointment Topical TID lisinopriL (PRINIVIL,ZESTRIL) tablet 20 mg 20 mg Enteral BID 20 mg at 01/10/20 0808 amLODIPine (NORVASC) tablet 10 mg 10 mg Enteral DAILY 10 mg at 01/10/20 0808 clopidogreL (PLAVIX) tablet 75 mg 75 mg Enteral DAILY 75 mg at 01/10/20 0807 risperiDONE (RISPERDAL) tablet 0.5 mg 0.5 mg Enteral BID 0.5 mg at 01/10/20 0808 acetylcysteine (MUCOMYST) 200 mg/mL (20 %) solution 200 mg 1 mL Inhalation Q6H 800 mg at 01/10/20 0720 chlorhexidine (PERIDEX) 0.12 % mouthwash 15 mL 15 mL Oral (Swish And Spit Out) Q6H Stopped at1 1200 ipratropium-albuteroL (DUONEB) 0.5 mg-3 mg(2.5 mg base)/3 mL nebulizer solution 3 mL 3 mL Inhalation Q6H ABX 3 mL at 01/10/20 0720 Saline Bubble Study 6 mL Injection SEE-INSTRUCTIONS 6 mL at 12/29/19 1500 Saline Bubble Study 6 mL Injection SEE-INSTRUCTIONS 6 mL at 12/29/19 1500 levETIRAcetam (KEPPRA) 100 mg/mL oral solution 750 mg 750 mg Enteral BID 750 mg at 01/10/20 0808 Polyethylene Glycol 3350 (MIRALAX) powder 17 g 17 g Enteral BID Stopped at 01/07/20 0800 sennosides-docusate sodium (SENOKOT-S) 8.6-50 mg per tablet 1 tablet 1 tablet Enteral BID Stopped at 01/07/20 0800 hydralAZINE (APRESOLINE) injection 10 mg 10 mg Slow IV Push Q6HPRN 10 mg at 01/04/20 204 aspirin EC tablet 81 mg 81 mg Enteral DAILY 81 mg at 01/10/20 0808 atorvastatin (LIPITOR) tablet 40 mg 40 mg Enteral QHS 40 mg at 01/09/202022 famotidine (PEPCID) 40 mg/5 mL (8 mg/mL) suspension 20 mg 20 mg Enteral BID 20 mg at heparin (porcine) injection 5,000 Units 5,000 Units Subcutaneous Q12H 5,000 Units at Physical Examination: Vitals: 01/09/20 2304 01/10/20 0017 01/10/20 0311 01/10/20 0809 BP: 98/65 121/77 132/76 137/81 BP Location: Left arm Left arm Patient Position: Supine Supine Pulse: 90 91 79 80 Resp: 18 17 Temp: 37.7 C (99.9 F) 36.7 C (98.1 F) 36.9 C (98.4 F) TempSrc: Oral Oral Oral SpO2: 96% 98% 96% Weight: Height: General: patient opens eyes spontaneously, does not follow commands, not verbal. Eyes: anicteric sclerae ENT: oropharynx clear; moist mucous membranes Lungs: diminished breath sounds b/l Cardio: S1, S2 +, muffled heart sounds. GI: abdomen soft; normoactive bowel sounds. +pus seen around chest tube. Extremities: no edema Skin: warm and dry; no rash, +thrombophlebitis on lt antecubital fossa. Neuro: patient does not follow commands, not able to evaluate. Hem/lymph: +LN over rt neck. Laboratory: WBC x10^3 (/uL) Date Value 04/12/2014 7.9 WBC (10*3/L) Date Value 01/10/2020 11.21 (H) HGB Date Value 01/10/2020 11.2 g/dL (L) 04/12/2014 13.6 G/DL PLT x10^3 (/uL) Date Value 04/12/2014 206 PLT (10*3/L) Date Value 01/10/2020 217 CREATININE Date Value 01/07/2020 0.70 mg/dL 04/12/2014 1.00 MG/DL GLUCOSE Date Value 01/07/2020 113 mg/dL (H) 04/12/2014 92 MG/DL ALT(SGPT) (U/L) Date Value 11/14/2018 14 12/02/2004 29 ALTv (U/L) Date Value 01/09/2020 23 AST(SGOT) (U/L) Date Value 01/09/2020 30 12/02/2004 22 ALK PHOS (U/L) Date Value 01/09/2020 55 12/02/2004 58 Abx: zosyn 12/28 to 01/02/20. Microbiology: Bcx 12/25/19: negative. Radiology: 01/07/20: lt midlung opacity, unchanged since 12/30/19 CT head: L MCA infarct. CTA head and neck: CTA head and neckshowed complete occlusion of L cervical ICA and 50% narrowing of right proximal cervical ICA. Mild focal narrowing of mid basilar artery, some collateral flow overdistal MCA Assessment: 59 year-old female with pmh of HTN, HLD, CAD s/p PCI, , PAD, stroke, TB, cocaine use comes to the hospital after she was found sitting on the floor unresponsive.pt found to have stroke, today is day 16in the hospital. ID is called as she is noted to have leucocytosis. Differential diagnosis includes uti, pna, sinusitis, dental infection, thrombophlebitis, acalculos cholecystitis, Pressure sore, DVT, #lung nodule #stroke, now with aphasia. #h/o cocaine, tobacco use. Recommendations: Continue to monitor off antibiotics, as her wbc is trending down, she is not having any cough/fevers. rec pulmonary/CT surgery consult for biopsy of the lung nodule to r/o infection vs malignancy. Continue daily dressing change around peg tube, application of silver nitrate. Turn patient q 2 hourly to prevent bed sores. Thank you for the consult. Case was d/w attending Geovany Contreras PGY4, ID Associated attestation - Rajendra Garcia MD - 01/10/2020 6:18 PM CDTI have seen and examined this patient on 01/10/2020. I agree with Dr. Contreras 's thorough assessment and plan of care. I was directly involved in the decision making process. Please see the fellow's notefor additional details.Suleman Meneses MD - 01/09/2020 5:06 PM CDT VASCULAR AND INTERVENTIONAL RADIOLOGY PROGRESS NOTE SUBJECTIVE: Patient awake opens eyes spontaneously, unable to follow commands. Vitals: 01/09/20 0819 01/09/20 1140 01/09/20 1153 01/09/20 1700 BP: 127/80 (!) 148/90 Pulse: 93 87 86 86 Resp: 18 18 18 18 Temp: 36.9 C (98.5 F) 37.6 C (99.7 F) TempSrc: Oral Oral SpO2: 99% 92% 100% 99% Weight: Height: Physical Exam: General: Well appearing, in no apparent distress. Abdomen: PEG tube in place, clean and intact. Granulation tissue surrounds the site without erythemaor purulent discharge. A/P - 59 year old female s/p PEG tube placement (12/30/2019). - Continue to follow output. - Avoid placing gauze under bumper. - Topical silver nitrate may be applied if granulation tissue persists after removal of gauze beneath bumper. Associated attestation - Luciano Bhatia MD - 01/10/2020 11:08 AM CDT Agree with the resident note. Luciano Bhatia MD 11:07 AM Keshia Lugo, DEEP - 01/09/2020 4:[facility] Daily Progress Note - 01/06/2020 [id number] Funmilayo Mcmillan : 1960 Age: [age] year old Sex: female SUBJECTIVE: Patient awake upon arrival. RN reports patient resisting oral care and mouth swabs. OBJECTIVE: Funmilayo Mcmillan was seen for 1 WEB CONTENT EXECUTIVE treatment session/s on this date. Treatment was provided due to dysphagia and aphasia. Patient is a 59 year old female admitted for AMS, aphasia and R sided weakness with PMH significant for HTN, CAD s/p PCI, drug abuse (hx of cocaine abuse), bipolar, PAD. NIHSS 21. MRI Brain demonstrated large infarct in left MCA territory without hemorrhagic transformation.PEG placed on 12/29. Patient now with leukocytosis - ID consulted. MBS (01/03/20) Impressions: severe oral and moderate pharyngeal dysphagia; penetration and flash aspiration of nectar-thick liquids and chewable solid (PAS 5, 6); deep penetration and silent aspirationof thin liquids (PAS 5, 8) Progress on short term goals was as follows: Swallowing: - Patient/family/staff will verbalize importance of and demonstrate compliance to strict oral hygiene care with mod cues: WEB CONTENT EXECUTIVE attempted to complete oral hygiene care, however this was limited d/t patient's decreased ability to follow directions. She accepted oral swab coated in antiseptic oral rinse; however difficult to clean entire oral cavity as patient did not open her mouth on command. Will continue education with family and staff in the coming days. (continue goal) - Patient/family/staff will verbalize precautions for and demonstrate compliance with free water protocol with mod cues: After oral care (limited as described above), patient given two oral swabs soaked in water. She was noted to cough after second trial. (continue goal) - Patient will complete base of tongue, strap muscle, and airway protection exercises with minimal cues 80% of the time (may defer pending on ability to follow directions) APPLE as patient did not follow any commands during session. (goal pending) - Patient will accept PO trials of varying consistencies using bolus-driven therapy with a trained swallow technique without overt concern for aspiration 80% of the time (initiation of task pending oral hygiene care). Will initiate goal pending patient's ability to receive thorough oral care. (goal pending) Verbal Expression: goal not addressed this date - Patient will communicate basic wants/needs via any language modality (i.e. naming, gesturing, picture communication board) with 80% accuracy and moderate cues. (continue goal) - Patient will recite automatic speech sequences (i.e. counting, days of week, etc) with moderate cues 80% of the time. (continue goal) Auditory Comprehension: goal not addressed this date - Patient will answer simple yes/no questions with 80% accuracy. (continue goal) - Patient will follow one-step commands using body parts with moderate cues 80% of the time. (continue goal) ASSESSMENT: Funmilayo Mcmillan demonstrated minimal progress on swallowing goals. Per MBS on 01/02, patient continues to present with severe oral and moderate pharyngeal dysphagia as a result of L CVA with marked impairments in oral bolus control/efficiency and airway protection. Swallowing therapy focused on co mpletion of oral hygiene care, though this was limited d/t patient's decreased ability to follow commands. Pt accepted two trials of water-soaked toothette and noted to cough after second trial. As patient with recently developed leukocytosis, it is possible that patient is aspirating her secretions es pecially as has oral care has been limited. Will plan to continue education re: oral care and free water protocol with family and staff in the coming days. While speech-language goals not addressed this date, she also continues to present with severe-profound mixed expressive-receptive aphasia consistent with global aphasia. She is alert/awake but with no attempts to communicate despite max cues. Pt would benefit from continued WEB CONTENT EXECUTIVE services while in-house and after discharge. Should patient discharge home, recommend 24/7 supervision. PLAN: 1. Recommend patient remain NPO andcontinue with alternative means of nutrition/hydration (PEGinplace). 2. Recommend elevated head of bed and frequent, thorough oral hygiene care due to suspected high risk for aspiration. Once oral hygiene completed, recommend free water protocol (small amounts of ice chips only) PRN for QOL, despite aspiration risks (*oral hygiene/care must be completed prior to ice intake*) 3. Recommend elevated head of bed and frequent, thorough oral hygiene care due to high risk for aspiration including aspiration of her secretions. 4. Recommend WEB CONTENT EXECUTIVE therapy 2-5x/wk for 15-45 min/session to address the above goals. 5. Discharge recommendation: continued WEB CONTENT EXECUTIVE therapy at d/clocation (HH/OP speech consult if d/c home); 24/7 supervision/assist d/t safety concerns Keshia Lugo [facility]-WEB CONTENT EXECUTIVE Speech-Language Pathologist Office: [phone] Pager: [phone] Pedro Pablo Newsome MBBS - 01/09/2020 2:07 PM CDT STROKE PROGRESS NOTE DATE OF SERVICE: 01/09/2020 14:07 Day of Hospitalization: 16 CHIEF COMPLAINT: aphasia and R sided weakness 24-HOUR EVENTS: WBC trending up Patient remained afebrile ID and IR consulted SUBJECTIVE: Patient awake opens eyes spontaneously, unable to follow commands. STROKE DOCUMENTATION NIH STROKE SCALE LOC: 1 Not Alert: Arousable With Minor Stimulation to Obey, Answer or Respond LOC QUESTIONS: 2 Answers Neither Question Correctly LOC COMMANDS: 2 Performs Neither Task Correctly BEST GAZE: 1 Partial Gaze Palsy VISUAL: 0 No Visual Loss FACIAL PALSY: 2 Partial Paralysis MOTOR ARM-LEFT: 2 Some Effort Against [place] MOTOR ARM-RIGHT: 4 No Movement MOTOR LEG-LEFT: 1 Drift MOTOR LEG-RIGHT: 3 No Effort Against [place] LIMB ATAXIA: 0 Absent SENSORY: 0 Normal BEST LANGUAGE: 3 Mute, Global Aphasia DYSARTHRIA: UN Intubated or Other Physical Barrier, Explain EXTINCTION AND INATTENTION (FORMERLY NEGLECT): 0 No Abnormalty STROKE SCALE INTERVAL: Day 4 STROKE SCALE TOTAL SCORE: 21 OBJECTIVE: PHYSICAL EXAM Vitals: 01/09/20 0809 01/09/20 0819 01/09/20 1140 01/09/20 1153 BP: 127/80 BP Location: Patient Position: Pulse: 95 93 87 86 Resp: 18 18 18 18 Temp: 36.9 C (98.5 F) TempSrc: Oral SpO2: 98% 99% 92% 100% Weight: Height: General: Patient is awake, opens eyes to her name, able to junior programmer hand Mental Status: Consciousness, attention, concentration: impaired Speech/ Language: impaired to comprehension, fluency, repetition and naming. Global aphasia Fund of knowledge: unable to assess due to aphasia Remote and recent memory: unable to assess due to aphasia Cranial Nerves: I. Not tested. II. Unable to track to command but looking in all directions III. IV., . Unable to track fingers, move eyes spontaneously in all directions, preferred left gaze. V. Unable to assess VII. R facial droop, UMN type VIII. Unable to assess IX., X. Unable to assess XI. Unable to assess XII.Unable to assess Motor: Tone: R side flaccid Bulk: decreased LUE: at least 3/5 LLE at least 3/5 RUE: 1/5 to pain RLE: 1/5 to pain DTR's: Right Left Biceps 2+ 2+ Triceps 2+ 2+ Brachioradialis 2+ 2+ Patella 2+ 2+ Achilles 1+ 1+ Pathologic reflexes and signs: Babinski: present on R side Cerebellar: No nystagmus, APPLE rest Sensory: Withdraws to pain on right extremities Gait: APPLE Lungs: wheezing heard Cardio: S1, S2 normal; regular rate and rhythm; no murmurs or gallops Extremities: no cyanosis,clubbing or edema Neck: supple,no carotid bruit,no JVD Abdomen: soft; non-tender; non-distended; normoactive bowel sounds heard PEG tube noted to have malodorous smell with pus surrounding tube MEDICATIONS Current Facility-Administered Medications Medication Dose Route Frequency Last Rate Last Dose acetaminophen (TYLENOL) 160 mg/5 mL liquid 650 mg 650 mg Enteral Q4HPRN 650 mg at 01/09/20 0844 mupirocin (BACTROBAN OINT) 2 % skin ointment Topical TID lisinopriL (PRINIVIL,ZESTRIL) tablet 20 mg 20 mg Enteral BID 20 mg at 01/09/20 0809 amLODIPine (NORVASC) tablet 10 mg 10 mg Enteral DAILY 10 mg at 01/09/20 0809 clopidogreL (PLAVIX) tablet 75 mg 75 mg Enteral DAILY 75 mg at 01/09/20 0809 risperiDONE (RISPERDAL) tablet 0.5 mg 0.5 mg Enteral BID 0.5 mg at 01/09/20 0809 acetylcysteine (MUCOMYST) 200 mg/mL (20 %) solution 200 mg 1 mL Inhalation Q6H 200 mg at 01/09/20 1143 chlorhexidine (PERIDEX) 0.12 % mouthwash 15 mL 15 mL Oral (Swish And Spit Out) Q6H Stopped at1 1200 ipratropium-albuteroL (DUONEB) 0.5 mg-3 mg(2.5 mg base)/3 mL nebulizer solution 3 mL 3 mL Inhalation Q6H ABX 3 mL at 01/09/20 1140 Saline Bubble Study 6 mL Injection SEE-INSTRUCTIONS 6 mL at 12/29/19 1500 Saline Bubble Study 6 mL Injection SEE-INSTRUCTIONS 6 mL at 12/29/19 1500 levETIRAcetam (KEPPRA) 100 mg/mL oral solution 750 mg 750 mg Enteral BID 750 mg at 01/09/20 0809 Polyethylene Glycol 3350 (MIRALAX) powder 17 g 17 g Enteral BID Stopped at 01/07/20 0800 sennosides-docusate sodium (SENOKOT-S) 8.6-50 mg per tablet 1 tablet 1 tablet Enteral BID Stopped at 01/07/20 0800 hydralAZINE (APRESOLINE) injection 10 mg 10 mg Slow IV Push Q6HPRN 10 mg at 01/04/202039 aspirin EC tablet 81 mg 81 mg Enteral DAILY 81 mg at 01/09/20 0809 atorvastatin (LIPITOR) tablet 40 mg 40 mg Enteral QHS 40 mg at 01/08/202004 famotidine (PEPCID) 40 mg/5 mL (8 mg/mL) suspension 20 mg 20 mg Enteral BID 20 mg at heparin (porcine) injection 5,000 Units 5,000 Units Subcutaneous Q12H 5,000 Units at LABS Recent Results (from the past 24 hour(s)) CBC WITH DIFF Collection Time: 01/09/20 3:47 AM Result Value Ref Range WBC 16.99 (H) 4.30 - 11.10 10*3/L RBC 4.32 3.93 - 5.25 10*6/L HGB 13.5 11.6 - 15.0 g/dL HCT 40.9 35.7 - 45.2 % MCV 94.7 80.6 - 95.5 fL MCH 31.3 25.9 - 32.8 pg MCHC 33.0 31.6 - 35.1 g/dL RDW-SD 41.8 39.0 - 49.9 fL RDW-CV 11.9 (L) 12.0 - 15.5 % PLT 286 166 - 358 10*3/L MPV 11.0 9.5 - 12.9 fL NRBC/100 WBC 0.0 0.0 - 10.0 /100 WBCs NRBC x10^3 <0.01 10*3/L GRAN MAT (NEUT) % 88.6 % IMM GRAN % 0.50 % LYMPH % 5.5 % MONO % 4.4 % EOS % 0.8 % BASO % 0.2 % GRAN MAT x10^3(ANC) 15.04 (H) 1.88 - 7.09 10*3/uL IMM GRAN x10^3 0.09 (H) 0.00 - 0.06 10*3/uL LYMPH x10^3 0.94 (L) 1.32 - 3.29 10*3/uL MONO x10^3 0.75 0.33 - 0.92 10*3/uL EOS x10^3 0.13 0.03 - 0.39 10*3/uL BASO x10^3 0.04 0.01 - 0.07 10*3/uL BLOOD CULTURE SCREEN Collection Time: 01/09/20 9:04 AM Specimen: VENOUS; Blood Result Value Ref Range Blood Culture-Aerobic Culture In Progress No growth Blood Culture-Anaerobic Culture In Progress No growth BLOOD CULTURE SCREEN Collection Time: 01/09/20 9:04 AM Specimen: VENOUS; Blood Result Value Ref Range Blood Culture-Aerobic Culture In Progress No growth Blood Culture-Anaerobic Culture In Progress No growth URINALYSIS Collection Time: 01/09/20 9:07 AM Result Value Ref Range APPEARANCE Cloudy (A) Clear COLOR Yellow Yellow PH 6.0 4.8 - 8.0 SP GRAVITY 1.016 1.003 - 1.030 GLU U QUAL Normal Normal BLOOD Negative Negative KETONES Negative Negative PROTEIN Negative Negative UROBILIN Normal Normal BILIRUBIN Negative Negative NITRITE Positive (A) Negative LEUK LOGAN 500/uL (A) Negative RBC/HPF 19 (H) 0 - 3 HPF WBC/HPF 85 (H) 0 - 5 HPF BACTERIA Many (A) Negative MUCOUS Slight (A) Negative LPF AMORPHOUS Few (A) Rare HPF SQ EPITH 1 <=2 HPF STROKE LABS HGB A1C (%) Date Value 12/24/2019 5.2 LDL CHOL (mg/dL) Date Value 12/24/2019 109 CHOL (mg/dL) Date Value 12/24/2019 211 (H) TSH (mIU/L) Date Value 12/24/2019 2.06 Recent Labs 12/24/19 1241 12/26/19 0405 TROPNI 0.017 0.013 RADIOLOGY No final results containing an impression from the past 48 hours were found. ASSESSMENT AND PLAN Funmilayo Mcmillan is a 59 year old female with PMHx of the following stroke risk factors: HTN, CAD s/p PCI, drug abuse, bipolar, PAD, who presented withright side weakness, global aphasia, confusion.LSN:>24hr, NIHSS21. CT headacute-subacute infact of L MCA, CTA head and neckshowed co mplete occlusion of L cervical ICA and 50% narrowing of right proximal cervical ICA. Mild focal narrowing of mid basilar artery, some collateral flow over distal MCA.Case discussed with dr Beach and agreed no need for intervention as patient has good collaterals and passed window of intervention.MRI brain showed left MCA territory with no evidence of hemorrhagic transformation. Patient continued to be encephalopathic, cEEG showed no seizures. Unchanged exam Subacute-acute ischemic stroke of L MCA, mid M1 occlusion Right gaze, concern for seizure resolved Complete occlusion of L ICA Hx of cocaine abuse (UDS +ve cocaine) - Neurochecks - Telemetry - SBP : normotension - AED ppx : c/w Keppra 750 mg BID - c/w aspirin, plavix 75 mg daily - Atorvastatin 40 mg QHS - Risperidal 0.5 mg BID - consult palliative care - daughter is not interested in palliative intervention - pending discharge home - DME in process CAD s/p PCI HTN Multiple PVC HFrEF ( EF 40-45%) COPD Increased secretions Concern for aspiration pneumonia - adjust BP meds accordingly - Duonebs QID and mucomyst Q6H Dysphagia s/p PEG tube placement - c/w bolus feeds - speech onboard - pending wound nurse recs # Leukocytosis UA +ve # Afebrile - will monitor temp curve. - consulted ID and IR - recommended holding abx - infectious workup --Recommend LE duplex tomorrow - GI Prophylaxis: famotidine - DVT Prophylaxis: heparin - Code status: FULL The case was discussed and seen with Dr. King, Neurology Faculty. Stroke pager: [phone] Pedro Pablo Newsome MD Neurology, PGY-2 Pager # [phone] HOSPITAL COURSE: Funmilayo Mcmillan is a 59 year old unknown handednesscaucasian female with PMHX of bipolar, depression, HTN, CAD s/p PCI, , PAD, stroke?, TB, drug abuse (crack)who presented with CC of AMS, right side weakness, aphasia. LSN : unknown, At OSH ER, BP 167/104, HR 67, afebrile, RR20, UDS +ve cocaine and HTC, UA negative, TSH wnl, LFT wnl, bmp wnl, cbc mildly elevated wbc of 12.3, trop negative. CTH showed acute-subacute L MCA infact, transferred to [facility]. CT angiogram head and neck showed complete occlusion of left cervical ICA from just distal to the bulb through the supraclinoid segment at the level of the ophthalmic artery, mild to moderate narrowing of basilar artery. Required cardene for BP managament later weaned off. Developed right gaze preference on 12/24 loaded with Keppra and started on maintenance Keppra. CEEG showed no electrographic seizures or epileptiform discharges. MRI Brain demonstrated large infarct in left MCA territory without hemorrhagic transformation. TTE showed EF 40-45% with wall motion abnormalities. Cardiology consulted for reduced EF.Repeat focused echo withworsened EF (30-35%) and anterolateral/apical hypokinesis.Plan for PEG tube placement, plavix held.Transferred to floor 12/27 afternoon, no acute events overnight. However, on 12/28 continued to have copious secretions requiring frequent suctioning. MD notified at 11:54 AM and transferred back to ICU for higher level of care. Patient started on scheduled nebulizers with improvement in respiratorystatus, deemed stable for transfer to floor. Associated attestation - Rudy King MD - 01/09/2020 3:28 PM CDT Vascular Neurology attending attestation/addendum: Patient was seen and examined by me with the stroke team during the rounds. I actively participated in evaluation, management and developing the plan of care for this patient. History and ROS grossly obtained from the chart review, discussed with patient at bedside. Please refer to neurology resident's note for details with additions/exceptions as below. 59 years old woman with multiple vascular risk factors including age, HTN, CAD s/p PCIs, PAD and substance abuse is evaluated at [facility] for right hemiplegia, right HH global aphasia and partial right gaze palsy due to left MCA distribution stroke in this patient with left proximal/cervical ICA occlusion with on current tandem left MCA mid-M1 occlusion - likely mechanism being large vessel disease i.e. Left cervical/proximal ICA steno-occlusive disease with tandem left MCA occlusion and subsequent local thrombosis. TTE remarkable for low LVEF, 30-35% with regional wall motion abnormalities without anyevidence of LV thrombus nor showed any interatrial shunt. Patient with continued right hemiplegia and global aphasia. Now with trending up WBCs while remaining afebrile and noted to have serosanguineous discharge at location of the PEG tube. UA suggestive of UTI. Plan: Short duration dual antiplatelettherapy for 3 weeks for aggressive secondary stroke prevention followed by aspirin. Atorvastatin 80 mg at bedtime, LDL 109. HbA1c 5.2, continue with aggressive vascular risk factors modification. Evaluation and management of low LVEF/CAD workup as per cardiology team. Continue telemetry. Plan for prolonged cardiac monitoring with 30 days event monitor as outpatient. PT/OT/speech and swallow evaluation. Keppra for seizure prophylaxis in this patient with prior clinical episodes concerning for nonconvulsive seizures. Routine EEG showed moderate diffuse slowing, focal slowing over the left hemisphere without any epileptiform discharges or electrographic seizures. Consult IR team and wound care regarding pus discharge from the PEG site. IV ceftriaxone for UTI, continue to follow urine culture. ID consultation for further evaluation and management of leukocytosis. Follow-up on the results of blood culture 2. Further evaluation and management based on ID recommendations. More than 36 minutes were spent in evaluation and management of this patient, more than 50% of the time was spent in counseling and coordinating care for this patient.Aundrea Mcleod MBBS - 01/08/2020 8:30 AM CDT STROKE PROGRESS NOTE DATE OF SERVICE: 01/08/2020 08:30 Day of Hospitalization: 15 CHIEF COMPLAINT: aphasia and R sided weakness 24-HOUR EVENTS: WBC trended down : 14.03 << 15.31 >>14.88 Afebrile overnight, other VSS stable UA 01/05/20 : not suggestive of UTI CXR - unchanged from prior with evidence of pneumonia -No pressure ulcers per nurse - Peg tube dressing with mild Pus, monitor and start abx if needed -Recommend LE duplex tomorrow SUBJECTIVE: Patient awake opens eyes to name, unable to follow commands. STROKE DOCUMENTATION NIH STROKE SCALE LOC: 1 Not Alert: Arousable With Minor Stimulation to Obey, Answer or Respond LOC QUESTIONS: 2 Answers Neither Question Correctly LOC COMMANDS: 2 Performs Neither Task Correctly BEST GAZE: 1 Partial Gaze Palsy VISUAL: 0 No Visual Loss FACIAL PALSY: 2 Partial Paralysis MOTOR ARM-LEFT: 2 Some Effort Against [place] MOTOR ARM-RIGHT: 4 No Movement MOTOR LEG-LEFT: 1 Drift MOTOR LEG-RIGHT: 3 No Effort Against [place] LIMB ATAXIA: 0 Absent SENSORY: 0 Normal BEST LANGUAGE: 3 Mute, Global Aphasia DYSARTHRIA: UN Intubated or Other Physical Barrier, Explain EXTINCTION AND INATTENTION (FORMERLY NEGLECT): 0 No Abnormalty STROKE SCALE INTERVAL: Day 4 STROKE SCALE TOTAL SCORE: 21 OBJECTIVE: PHYSICAL EXAM Vitals: 01/07/20 1929 01/07/20 2315 01/08/20 0315 01/08/20 0746 BP: 126/77 132/81 134/88 BP Location: Left arm Left arm Patient Position: Supine Supine Pulse: 85 86 83 74 Resp: Temp: 37.1 C (98.8 F) 36.5 C (97.7 F) 36.8 C (98.3 F) TempSrc: Axillary Oral Oral SpO2: 97% 97% 95% 96% Weight: Height: General: Patient is awake, opens eyes to her name, able to junior programmer hand Mental Status: Consciousness, attention, concentration: impaired Speech/ Language: impaired to comprehension, fluency, repetition and naming. Global aphasia Fund of knowledge: unable to assess due to aphasia Remote and recent memory: unable to assess due to aphasia Cranial Nerves: I. Not tested. II. Unable to track to command but looking in all directions III. IV., . Unable to track fingers, move eyes spontaneously in all directions, preferred left gaze. V. Unable to assess VII. R facial droop, UMN type VIII. Unable to assess IX., X. Unable to assess XI. Unable to assess XII.Unable to assess Motor: Tone: R side flaccid Bulk: decreased LUE: at least 3/5 LLE at least 3/5 RUE: 1/5 to pain RLE: 1/5 to pain DTR's: Right Left Biceps 2+ 2+ Triceps 2+ 2+ Brachioradialis 2+ 2+ Patella 2+ 2+ Achilles 1+ 1+ Pathologic reflexes and signs: Babinski: present on R side Cerebellar: No nystagmus, APPLE rest Sensory: Withdraws to pain on right extremities Gait: APPLE Lungs: wheezing heard Cardio: S1, S2 normal; regular rate and rhythm; no murmurs or gallops Extremities: no cyanosis,clubbing or edema Neck: supple,no carotid bruit,no JVD Abdomen: soft; non-tender; non-distended; normoactive bowel sounds heard MEDICATIONS Current Facility-Administered Medications Medication Dose Route Frequency Last Rate Last Dose lisinopriL (PRINIVIL,ZESTRIL) tablet 20 mg 20 mg Enteral BID 20 mg at 01/08/20 0802 amLODIPine (NORVASC) tablet 10 mg 10 mg Enteral DAILY 10 mg at 01/08/20 0802 clopidogreL (PLAVIX) tablet 75 mg 75 mg Enteral DAILY 75 mg at 01/08/20 0802 risperiDONE (RISPERDAL) tablet 0.5 mg 0.5 mg Enteral BID 0.5 mg at 01/08/20 0802 acetylcysteine (MUCOMYST) 200 mg/mL (20 %) solution 200 mg 1 mL Inhalation Q6H Stopped at 01/08/20 0030 chlorhexidine (PERIDEX) 0.12 % mouthwash 15 mL 15 mL Oral (Swish And Spit Out) Q6H Stopped at1 1200 ipratropium-albuteroL (DUONEB) 0.5 mg-3 mg(2.5 mg base)/3 mL nebulizer solution 3 mL 3 mL Inhalation Q6H ABX Stopped at 01/08/20 0030 Saline Bubble Study 6 mL Injection SEE-INSTRUCTIONS 6 mL at 12/29/19 1500 Saline Bubble Study 6 mL Injection SEE-INSTRUCTIONS 6 mL at 12/29/19 1500 levETIRAcetam (KEPPRA) 100 mg/mL oral solution 750 mg 750 mg Enteral BID 750 mg at 01/08/20 0802 Polyethylene Glycol 3350 (MIRALAX) powder 17 g 17 g Enteral BID Stopped at 01/07/20 0800 sennosides-docusate sodium (SENOKOT-S) 8.6-50 mg per tablet 1 tablet 1 tablet Enteral BID Stopped at 01/07/20 0800 hydralAZINE (APRESOLINE) injection 10 mg 10 mg Slow IV Push Q6HPRN 10 mg at 01/04/20 204 aspirin EC tablet 81 mg 81 mg Enteral DAILY 81 mg at 01/08/20 0802 atorvastatin (LIPITOR) tablet 40 mg 40 mg Enteral QHS 40 mg at 01/07/202030 famotidine (PEPCID) 40 mg/5 mL (8 mg/mL) suspension 20 mg 20 mg Enteral BID 20 mg at heparin (porcine) injection 5,000 Units 5,000 Units Subcutaneous Q12H 5,000 Units at LABS Recent Results (from the past 24 hour(s)) CBC WITH DIFF Collection Time: 01/08/20 1:05 AM Result Value Ref Range WBC 14.88 (H) 4.30 - 11.10 10*3/L RBC 4.17 3.93 - 5.25 10*6/L HGB 13.1 11.6 - 15.0 g/dL HCT 39.3 35.7 - 45.2 % MCV 94.2 80.6 - 95.5 fL MCH 31.4 25.9 - 32.8 pg MCHC 33.3 31.6 - 35.1 g/dL RDW-SD 42.5 39.0 - 49.9 fL RDW-CV 12.1 12.0 - 15.5 % PLT 278 166 - 358 10*3/L MPV 10.8 9.5 - 12.9 fL NRBC/100 WBC 0.0 0.0 - 10.0 /100 WBCs NRBC x10^3 <0.01 10*3/L GRAN MAT (NEUT) % 82.9 % IMM GRAN % 0.40 % LYMPH % 7.7 % MONO % 7.4 % EOS % 1.3 % BASO % 0.3 % GRAN MAT x10^3(ANC) 12.33 (H) 1.88 - 7.09 10*3/uL IMM GRAN x10^3 0.06 0.00 - 0.06 10*3/uL LYMPH x10^3 1.15 (L) 1.32 - 3.29 10*3/uL MONO x10^3 1.10 (H) 0.33 - 0.92 10*3/uL EOS x10^3 0.20 0.03 - 0.39 10*3/uL BASO x10^3 0.04 0.01 - 0.07 10*3/uL STROKE LABS HGB A1C (%) Date Value 12/24/2019 5.2 LDL CHOL (mg/dL) Date Value 12/24/2019 109 CHOL (mg/dL) Date Value 12/24/2019 211 (H) TSH (mIU/L) Date Value 12/24/2019 2.06 Recent Labs 12/24/19 1241 12/26/19 0405 TROPNI 0.017 0.013 RADIOLOGY Xr Chest 1 Vw Result Date: 01/08/2020 Impression: Unchanged opacity in the left midlung zone which may represent pneumonia. ASSESSMENT AND PLAN Funmilayo Mcmillan is a 59 year old female with PMHx of the following stroke risk factors: HTN, CAD s/p PCI, drug abuse, bipolar, PAD, who presented withright side weakness, global aphasia, confusion.LSN:>24hr, NIHSS21. CT headacute-subacute infact of L MCA, CTA head and neckshowed co mplete occlusion of L cervical ICA and 50% narrowing of right proximal cervical ICA. Mild focal narrowing of mid basilar artery, some collateral flow over distal MCA.Case discussed with dr Beach and agreed no need for intervention as patient has good collaterals and passed window of intervention.MRI brain showed left MCA territory with no evidence of hemorrhagic transformation. Patient continued to be encephalopathic, cEEG showed no seizures. Unchanged exam Subacute-acute ischemic stroke of L MCA, mid M1 occlusion Right gaze, concern for seizure resolved Complete occlusion of L ICA Hx of cocaine abuse (UDS +ve cocaine) - Neurochecks - Telemetry - SBP : 120-160 - c/w Keppra 750 mg BID - c/w aspirin, plavix 75 mg daily - Atorvastatin 40 mg QHS - Risperidal 0.5 mg BID - consult palliative care - daughter is not interested in palliative intervention - pending discharge home - DME in process CAD s/p PCI HTN Multiple PVC HFrEF ( EF 40-45%) COPD Increased secretions Concern for aspiration pneumonia - adjust BP meds accordingly - Duonebs QID and mucomyst Q6H Dysphagia s/p PEG tube placement - c/w bolus feeds - speech onboard # Leukocytosis # Afebrile # UA not suggestive of UTI # CXR - stable Plan: - Monitor WBC --Recommend LE duplex tomorrow - GI Prophylaxis: famotidine - DVT Prophylaxis: heparin - Code status: FULL The case was discussed and seen with Dr. Lakhani, Neurology Faculty. Stroke pager: [phone] HOSPITAL COURSE: Funmilayo Mcmillan is a 59 year old unknown handednesscaucasian female with PMHX of bipolar, depression, HTN, CAD s/p PCI, , PAD, stroke?, TB, drug abuse (crack)who presented with CC of AMS, right side weakness, aphasia. LSN : unknown, At OSH ER, BP 167/104, HR 67, afebrile, RR20, UDS +ve cocaine and HTC, UA negative, TSH wnl, LFT wnl, bmp wnl, cbc mildly elevated wbc of 12.3, trop negative. CTH showed acute-subacute L MCA infact, transferred to [facility]. CT angiogram head and neck showed complete occlusion of left cervical ICA from just distal to the bulb through the supraclinoid segment at the level of the ophthalmic artery, mild to moderate narrowing of basilar artery. Required cardene for BP managament later weaned off. Developed right gaze preference on 12/24 loaded with Keppra and started on maintenance Keppra. CEEG showed no electrographic seizures or epileptiform discharges. MRI Brain demonstrated large infarct in left MCA territory without hemorrhagic transformation. TTE showed EF 40-45% with wall motion abnormalities. Cardiology consulted for reduced EF.Repeat focused echo withworsened EF (30-35%) and anterolateral/apical hypokinesis.Plan for PEG tube placement, plavix held.Transferred to floor 12/27 afternoon, no acute events overnight. However, on 12/28 continued to have copious secretions requiring frequent suctioning. MD notified at 11:54 AM and transferred back to ICU for higher level of care. Patient started on scheduled nebulizers with improvement in respiratorystatus, deemed stable for transfer to floor. Associated attestation - Mandy Lakhani MD - 01/08/2020 7:49 PM CDTI personally examined the patient and agree with Dr. Mcleod's resident note. I agree with the orders placed. I actively participated in the decision-making process. Please see the resident's note for additional details.Abhishek Berumen MBBS - 01/07/2020 11:34 AM CDT STROKE PROGRESS NOTE DATE OF SERVICE: 01/07/2020 11:35 Day of Hospitalization: 14 CHIEF COMPLAINT: aphasia and R sided weakness 24-HOUR EVENTS: WBC trending up : 14.03 >> 15.31 Afebrile overnight, other VSS stable UA : not suggestive of UTI SUBJECTIVE: Patient awake opens eyes to name, unable to follow commands. STROKE DOCUMENTATION NIH STROKE SCALE LOC: 1 Not Alert: Arousable With Minor Stimulation to Obey, Answer or Respond LOC QUESTIONS: 2 Answers Neither Question Correctly LOC COMMANDS: 2 Performs Neither Task Correctly BEST GAZE: 1 Partial Gaze Palsy VISUAL: 0 No Visual Loss FACIAL PALSY: 2 Partial Paralysis MOTOR ARM-LEFT: 2 Some Effort Against [place] MOTOR ARM-RIGHT: 4 No Movement MOTOR LEG-LEFT: 1 Drift MOTOR LEG-RIGHT: 3 No Effort Against [place] LIMB ATAXIA: 0 Absent SENSORY: 0 Normal BEST LANGUAGE: 3 Mute, Global Aphasia DYSARTHRIA: UN Intubated or Other Physical Barrier, Explain EXTINCTION AND INATTENTION (FORMERLY NEGLECT): 0 No Abnormalty STROKE SCALE INTERVAL: Day 4 STROKE SCALE TOTAL SCORE: 21 OBJECTIVE: PHYSICAL EXAM Vitals: 01/07/20 0701 01/07/20 0719 01/07/20 1105 01/07/20 1131 BP: (!) 146/78 123/65 BP Location: Left arm Left arm Patient Position: Supine Pulse: 98 96 98 85 Resp: 18 20 18 18 Temp: 36.3 C (97.4 F) 37.2 C (99 F) TempSrc: Axillary Oral SpO2: 96% 96% 96% 96% Weight: Height: General: Patient is awake, opens eyes to her name, able to junior programmer hand Mental Status: Consciousness, attention, concentration: impaired Speech/ Language: impaired to comprehension, fluency, repetition and naming. Global aphasia Fund of knowledge: unable to assess due to aphasia Remote and recent memory: unable to assess due to aphasia Cranial Nerves: I. Not tested. II. Unable to track to command but looking in all directions III. IV., . Unable to track fingers, move eyes spontaneously in all directions, preferred left gaze. V. Unable to assess VII. R facial droop, UMN type VIII. Unable to assess IX., X. Unable to assess XI. Unable to assess XII.Unable to assess Motor: Tone: R side flaccid Bulk: decreased LUE: at least 3/5 LLE at least 3/5 RUE: 1/5 to pain RLE: 1/5 to pain DTR's: Right Left Biceps 2+ 2+ Triceps 2+ 2+ Brachioradialis 2+ 2+ Patella 2+ 2+ Achilles 1+ 1+ Pathologic reflexes and signs: Babinski: present on R side Cerebellar: No nystagmus, APPLE rest Sensory: Withdraws to pain on right extremities Gait: APPLE Lungs: wheezing heard Cardio: S1, S2 normal; regular rate and rhythm; no murmurs or gallops Extremities: no cyanosis,clubbing or edema Neck: supple,no carotid bruit,no JVD Abdomen: soft; non-tender; non-distended; normoactive bowel sounds heard MEDICATIONS Current Facility-Administered Medications Medication Dose Route Frequency Last Rate Last Dose lisinopriL (PRINIVIL,ZESTRIL) tablet 20 mg 20 mg Enteral BID 20 mg at 01/07/20 0856 amLODIPine (NORVASC) tablet 10 mg 10 mg Enteral DAILY 10 mg at 01/07/20 0856 clopidogreL (PLAVIX) tablet 75 mg 75 mg Enteral DAILY 75 mg at 01/07/20 0856 risperiDONE (RISPERDAL) tablet 0.5 mg 0.5 mg Enteral BID 0.5 mg at 01/07/20 0856 acetylcysteine (MUCOMYST) 200 mg/mL (20 %) solution 200 mg 1 mL Inhalation Q6H chlorhexidine (PERIDEX) 0.12 % mouthwash 15 mL 15 mL Oral (Swish And Spit Out) Q6H Stopped at1 1200 ipratropium-albuteroL (DUONEB) 0.5 mg-3 mg(2.5 mg base)/3 mL nebulizer solution 3 mL 3 mL Inhalation Q6H ABX 3 mL at 01/07/20 1105 Saline Bubble Study 6 mL Injection SEE-INSTRUCTIONS 6 mL at 12/29/19 1500 Saline Bubble Study 6 mL Injection SEE-INSTRUCTIONS 6 mL at 12/29/19 1500 levETIRAcetam (KEPPRA) 100 mg/mL oral solution 750 mg 750 mg Enteral BID 750 mg at 01/07/20 0856 Polyethylene Glycol 3350 (MIRALAX) powder 17 g 17 g Enteral BID Stopped at 01/07/20 0800 sennosides-docusate sodium (SENOKOT-S) 8.6-50 mg per tablet 1 tablet 1 tablet Enteral BID Stopped at 01/07/20 0800 hydralAZINE (APRESOLINE) injection 10 mg 10 mg Slow IV Push Q6HPRN 10 mg at 01/04/20 204 aspirin EC tablet 81 mg 81 mg Enteral DAILY 81 mg at 01/07/20 0856 atorvastatin (LIPITOR) tablet 40 mg 40 mg Enteral QHS 40 mg at 01/06/202205 famotidine (PEPCID) 40 mg/5 mL (8 mg/mL) suspension 20 mg 20 mg Enteral BID 20 mg at heparin (porcine) injection 5,000 Units 5,000 Units Subcutaneous Q12H 5,000 Units at LABS Recent Results (from the past 24 hour(s)) CBC WITHOUT DIFF Collection Time: 01/07/20 4:38 AM Result Value Ref Range WBC 15.31 (H) 4.30 - 11.10 10*3/L RBC 4.32 3.93 - 5.25 10*6/L HGB 13.4 11.6 - 15.0 g/dL HCT 40.7 35.7 - 45.2 % MCH 31.0 25.9 - 32.8 pg MCV 94.2 80.6 - 95.5 fL MCHC 32.9 31.6 - 35.1 g/dL PLT 282 166 - 358 10*3/L MPV 10.5 9.5 - 12.9 fL RDW-CV 12.2 12.0 - 15.5 % RDW-SD 42.5 39.0 - 49.9 fL NRBC x10^3 <0.01 10*3/L NRBC/100 WBC 0.0 0.0 - 10.0 /100 WBCs IPF % BASIC METABOLIC PANEL (NA, K, CL, CO2, GLUCOSE, BUN, CREATININE, CA) Collection Time: 01/07/20 4:38 AM Result Value Ref Range NA 140 135 - 145 mmol/L K 4.5 3.5 - 5.0 mmol/L CL 107 98 - 108 mmol/L CO2 TOTAL 28 23 - 31 mmol/L AGAP 5 2 - 16 BUN 34 (H) 7 - 23 mg/dL GLUCOSE 113 (H) 70 - 110 mg/dL CREATININE 0.70 0.50 - 1.04 mg/dL CALCIUM 9.7 8.6 - 10.6 mg/dL eGFR Calculation (Non-) 85.9 mL/min/1.73m2 eGFR Calculation () 104.2 mL/min/1.73m2 STROKE LABS HGB A1C (%) Date Value 12/24/2019 5.2 LDL CHOL (mg/dL) Date Value 12/24/2019 109 CHOL (mg/dL) Date Value 12/24/2019 211 (H) TSH (mIU/L) Date Value 12/24/2019 2.06 Recent Labs 12/24/19 1241 12/26/19 0405 TROPNI 0.017 0.013 RADIOLOGY No final results containing an impression from the past 48 hours were found. ASSESSMENT AND PLAN Funmilayo Mcmillan is a 59 year old female with PMHx of the following stroke risk factors: HTN, CAD s/p PCI, drug abuse, bipolar, PAD, who presented withright side weakness, global aphasia, confusion.LSN:>24hr, NIHSS21. CT headacute-subacute infact of L MCA, CTA head and neckshowed co mplete occlusion of L cervical ICA and 50% narrowing of right proximal cervical ICA. Mild focal narrowing of mid basilar artery, some collateral flow over distal MCA.Case discussed with dr Beach and agreed no need for intervention as patient has good collaterals and passed window of intervention.MRI brain showed left MCA territory with no evidence of hemorrhagic transformation. Patient continued to be encephalopathic, cEEG showed no seizures. Unchanged exam Subacute-acute ischemic stroke of L MCA, mid M1 occlusion Right gaze, concern for seizure resolved Complete occlusion of L ICA Hx of cocaine abuse (UDS +ve cocaine) - Neurochecks - Telemetry - SBP : 120-160 - c/w Keppra 750 mg BID - c/w aspirin, plavix 75 mg daily - Atorvastatin 40 mg QHS - Risperidal 0.5 mg BID - consult palliative care - daughter is not interested in palliative intervention - pending discharge home - DME in process CAD s/p PCI HTN Multiple PVC HFrEF ( EF 40-45%) COPD Increased secretions Concern for aspiration pneumonia - adjust BP meds accordingly - Duonebs QID and mucomyst Q6H Dysphagia s/p PEG tube placement - c/w bolus feeds - speech onboard # Leukocytosis # Afebrile - UA not suggestive of UTI - f/u CXR for possible aspiration - GI Prophylaxis: famotidine - DVT Prophylaxis: heparin - Code status: FULL The case was discussed and seen with Dr. Lakhani, Neurology Faculty. Stroke pager: [phone] Ata Weiss MD, PGY-3, Neurology Pager: HOSPITAL COURSE: Funmilayo Mcmillan is a 59 year old unknown handednesscaucasian female with PMHX of bipolar, depression, HTN, CAD s/p PCI, , PAD, stroke?, TB, drug abuse (crack)who presented with CC of AMS, right side weakness, aphasia. LSN : unknown, At OSH ER, BP 167/104, HR 67, afebrile, RR20, UDS +ve cocaine and HTC, UA negative, TSH wnl, LFT wnl, bmp wnl, cbc mildly elevated wbc of 12.3, trop negative. CTH showed acute-subacute L MCA infact, transferred to [facility]. CT angiogram head and neck showed complete occlusion of left cervical ICA from just distal to the bulb through the supraclinoid segment at the level of the ophthalmic artery, mild to moderate narrowing of basilar artery. Required cardene for BP managament later weaned off. Developed right gaze preference on 12/24 loaded with Keppra and started on maintenance Keppra. CEEG showed no electrographic seizures or epileptiform discharges. MRI Brain demonstrated large infarct in left MCA territory without hemorrhagic transformation. TTE showed EF 40-45% with wall motion abnormalities. Cardiology consulted for reduced EF.Repeat focused echo withworsened EF (30-35%) and anterolateral/apical hypokinesis.Plan for PEG tube placement, plavix held.Transferred to floor 12/27 afternoon, no acute events overnight. However, on 12/28 continued to have copious secretions requiring frequent suctioning. MD notified at 11:54 AM and transferred back to ICU for higher level of care. Patient started on scheduled nebulizers with improvement in respiratorystatus, deemed stable for transfer to floor. Associated attestation - Mandy Lakhani MD - 01/07/2020 8:35 PM CDTI personally examined the patient and agree with Dr. Abhishek Berumen's resident note. I agree with the orders placed. I actively participated in the decision-making process. Please see the resident's note for additional details. Brandon OrtizROB levine - 01/06/2020 3:18 PM CDTPatient Choice Note The patient or individual acting on the patients behalf has been counseled on the freedom & right to choose among participating providers (Medicare, Medicaid, or insurance in-network list) for aprescribed service. It has been explained that the hospital does not limit the qualified providers that are available to the patient per CMS and Joint Commission rules and standards. [facility] has no financial interests with any home health (HH), hospice, half-way facility (SNF), durable medical equipment (DME), long-term acute care (LTAC), or Rehabilitation (Rehab) agencies/facilities to disclose. Based on the patients need(s) for care transitioning, the following services have been prescribed: __X_ HH ___ Hospice ___ SNF/LTC ___ LTAC ___ DME ___ Rehab Choice Notice Patient has been informed that: "As part of your discharge plan, your hospital is required to provide you with (1) a complete list of appropriate Home Health Agency/Intermediate Facility among which you are free to choose, and (2)information regarding certain financial interests among the hospital and any such HEAD OF STOCK/SNFs ("Required Hospital Disclosures"). Your hospital will provide Required Hospital Disclosures to you separately. This Home Health Agency/Intermediate Facility Vwezkyw-rp-Nayp Supplement is intended to provide you with additional information regarding [id number] that you may consider in selecting a HEAD OF STOCK/SNFand is not intended as a substitute or replacement for the Required Hospital Disclosures. Specifically, this Supplement highlights quality information about high-performing local vendors/facilities that serve patients with medical conditions similar to yours. We encourage you to discuss with our care team and your doctor(s) which vendors/facilities can best address your individual needs. The statements contained in the provided document are solely those of the authors and do not necessarily reflect the views or policies of [facility]. The authors assume responsibility for the accuracy and completeness of the information contained in this document." And per patient's insurance CM and patient's daughter's choice-ROB faxed home health order to [facility] ([address] [place] [address] [address], [place], [place] phone: [phone] fax: [phone], alternate fax:[phone]) Tatiana Ortiz, [facility] [phone] [address] [place] [address] Care Mgmt Dept Keshia Lugo, WEB CONTENT EXECUTIVE - 01/06/2020 1:34 PM [facility] Daily Progress Note - 01/06/2020 [id number] Funmilayo Mcmillan : 1960 Age: [age] year old Sex: female SUBJECTIVE: Patient awake upon arrival with RT. Patient appeared more agitated compared to previous sessions, resisting oral care and po trials of water. Neuro team present for part of session, report patient medically stable for d/c pending DME. OBJECTIVE: Funmilayo Mcmillan was seen for 1 WEB CONTENT EXECUTIVE treatment session/s on this date. Treatment was provided due to dysphagia and aphasia. Patient is a 59 year old female admitted for AMS, aphasia and R sided weakness with PMH significant for HTN, CAD s/p PCI, drug abuse (hx of cocaine abuse), bipolar, PAD. NIHSS 21. MRI Brain demonstrated large infarct in left MCA territory without hemorrhagic transformation.PEG placed on 12/29. Of note, palliative care consulted on 01/02. MBS (01/03/20) Impressions: severe oral and moderate pharyngeal dysphagia; penetration and flash aspiration of nectar-thick liquids and chewable solid (PAS 5, 6); deep penetration and silent aspirationof thin liquids (PAS 5, 8) Progress on short term goals was as follows: Swallowing: - Patient/family/staff will verbalize importance of and demonstrate compliance to strict oral hygiene care with mod cues: Patient with copious oral secretions which she was intermittently able to cough up. Voice noted to be wet/gurgled. No family present. WEB CONTENT EXECUTIVE attempted to complete oral hygiene care, however this was limited d/t patient's agitation/turning head away and decreased ability to follow directions. Will continue education with family and staff in the coming days. (continue goal) - Patient/family/staff will verbalize precautions for and demonstrate compliance with free water protocol with mod cues: No family present. After oral care, patient's mouth moistened with 2 trials of toothette soaked in water. Unable to present with further trials d/t patient turning head away. (continue goal) - Patient will complete base of tongue, strap muscle, and airway protection exercises with minimal cues 80% of the time (may defer pending on ability to follow directions) APPLE as patient did not follow any commands during session. (goal pending) - Patient will accept PO trials of varying consistencies using bolus-driven therapy with a trained swallow technique without overt concern for aspiration 80% of the time (initiation of task pending oral hygiene care). Will initiate goal pending patient's ability to receive thorough oral care. (goal pending) Verbal Expression: - Patient will communicate basic wants/needs via any language modality (i.e. naming, gesturing, picture communication board) with 80% accuracy and moderate cues. Despite max cues (direct modeling, hand over hand, etc), patient did not communicate via any modality. (continue goal) - Patient will recite automatic speech sequences (i.e. counting, days of week, etc) with moderate cues 80% of the time. Despite max cues (direct modeling,melodic intonation), patient did not attempt to recite numbers 1-3or days of week. (continue goal) Auditory Comprehension: - Patient will answer simple yes/no questions with 80% accuracy. Patient made no attempt to answer yes/no questions in all 5 trials verbally or with gestures. (continue goal) - Patient will follow one-step commands using body parts with moderate cues 80% of the time. Patient followed simple 1-step commands in 0/5 trials despite max cues (direct modeling, [id number], etc). (continue goal) ASSESSMENT: Funmilayo Mcmillan demonstrated minimal progress on swallowing and aphasia goals. Per MBS on 01/02, patient continues to present with severe oral and moderate pharyngeal dysphagia as a result of L CVA with marked impairments in oral bolus control/efficiency and airway protection. Swallowing therapy focused on completion of oral hygiene care, though patient with increased resistance to oral care compared to previous sessions. Pt accepted several trials of water- soaked toothette before she began turning her head away. Will plan to continue education re: oral care and free water protocol with familyand staff in the coming days. Patient also continues to present with severe-profound mixed expressive-receptive aphasia consistent with global aphasia. She is alert/awake but with no attempts to communicate despite max cues. Pt would benefit from continued WEB CONTENT EXECUTIVE services while in-house and after discharge. Should patient discharge home, recommend 06/10 supervision. PLAN: 1. Recommend patient remain NPO andcontinue with alternative means of nutrition/hydration (PEGinplace). 2. Recommend elevated head of bed and frequent, thorough oral hygiene care due to suspected high risk for aspiration. Once oral hygiene completed, recommend free water protocol (small amounts of ice chips only) PRN for QOL, despite aspiration risks (*oral hygiene/care must be completed prior to ice intake*) 3. Recommend WEB CONTENT EXECUTIVE therapy 2-5x/wk for 15-45 min/session to address the above goals. 4. Discharge recommendation: continued WEB CONTENT EXECUTIVE therapy at d/clocation (HH/OP speech consult if d/c home); 06/10 supervision/assist d/t safety concerns Keshia Lugo M.S. CCC-WEB CONTENT EXECUTIVE Speech-Language Pathologist Office: [phone] Pager: [phone] Roberta Brito PTA - 01/06/2020 1:16 PM CDT Physical Therapy Progress Note: Discharge Recommendations: Therapy Needs and Potential: Patient would benefit from continued physical therapy services to address:decline in bed mobility decline in transfers decline in gait and/or balance decreased strength Patient exhibits limited ability to follow commands. Challenges to Home Transition: increased risk of falls decreased safety awareness Patient will need significant physical assistance for bed mobility and transfers Equipment recommendations: Hospital bed with air loss mattress, betzy lift, reclining wheel chair with seat belt and elevating leg rest , ROHO cushion. PAIN: unable to verbalize, does not appear in distress PRECAUTIONS: Weight Bearing Precaution: WBAT General Precautions: PPE used:Gloves and Surgical mask, Fall, Rogers catheter, PEG tube Bracing/Cast present or required: N/A S: Patient agreeable to working with PT. Pt's daughter throughout session. O: Patient met Semi reclined in bed, SCD sleeves on and machine turned on, heels off loaded using prevalon boot (RLE). Patient seen for the following: Bed mobility: Bridging: Maximal assist Reclined to sitting: Maximal assist Sitting balance Poor+ Scooting to edge of bed: Maximal assist Sit to supine: Maximal assist Repositioned patient to head of bed: Dependent, x 2 analyzed patient to slide forward requiring Max A x 2 to scoot back onto bed Incorporated patient's daughter for training Analyzed patient to lean forward and to the L into her daughters body Cued patient several times to sit upright and hold her head up Transfers: Attempted stand pivot with daughter however patient with poor sitting balance therefore educated patient on betzy lift transfers for safety until sitting balance improves Therapeutic exercise: patient educated in Adaptive equipment , Compensatory techniques/adaptive strategies, Energy conservation, Fall prevention, General strengthening, Gross motor coordination of LEs, Joint protection, Positioning, Relaxation/breathing techniques and Safety awareness., instructed patient in the following: ankle pumps, heel slides, hip abduction/adduction, hip internal/external rotation, straight leg raises Daughter reports she has been assisting patient with BLE exercises when she is here After session, patient Semi reclined in bed, SCD sleeves on and machine turned on, heels off loaded using prevalon boot(RLE) and call gonzalez provided. Pt's daughter present. A: Patient tolerated session well. Pt with poor sitting balance however responding and following commands of her daughter. P: PT will - progress functional mobility, strength and endurance. Total Timed Tx Codes in Minutes: 38 Min Total Treatment Time in Minutes: 38 Min Roberta Brito PTA Pager # [phone] Supervising PT David Abe Camilo Adames OT - 01/06/2020 12:13 PM CDT OCCUPATIONAL THERAPY NOTE: Discharge Recommendations: Therapy Needs and Potential:- Patient would benefit from continued skilled occupational therapy services to address:Decline in basic activities of daily living, Decline in instrumental activities of daily living, Decline in cognition, Decreased strength, Decreased range of motion, Decreased endurance, Decreased coordination and Caregiver training - Patient exhibits limited activity tolerance. - Patient able to follow commands: 1-stepNo, Multi-stepNo, InconsistenciesNo Challenges to Home Transition:- Requires physical assistance for BADLS - Requires physical assistance for IADLS - Requires supervision or verbal cues for BADLS - Requires supervision or verbal cues for IADLS - No caregiver support - Decreased safety awareness/judgement - Increased risk of falls Equipment Recommendations: discharge home today would recommendHospital bed, Low air loss mattressand Mechanical lift Precautions: WB: NA General: PPE Utilized: Gloves and Surgical mask, Fall, Feeding tube and HOB at 30 degrees Bracing: N/A S: Family agreeable for patient to participate in occupational therapy. PAIN Pre-treatment: 0/10 pain. Post-treatment: 0/10 pain. O: Patient found semireclining in bed. Daughter present, Visitor present, Nursing present and Vital signs stable . Patient seen this date for the following: ADL Training UB Dressing: Moderate assist LB Dressing: Maximal assist Toileting Hygiene: Maximal assist. of 2 for cleanup and brief change Patient educated about the following adaptive equipment: hospital bed , Mechanical lift. Handout issued, No. Patient educated about fall prevention and safety awareness. Handout issued, No. - educated family on ADL's and equipment use at home Patient left in semichair position in bed with call gonzalez in reach. Daughter present, Visitor present, Nursing present, Vital signs stable and Bed alarm engaged, nursing staff notified. . A: Patient exhibited Good participation in therapy and responded well to treatment this session. Patient is progressing toward goal(s) 3, 4 and 5. Poor endurance and Persistent weakness remain(s) a limiting factor. Patient continues to present with Decreased independence with ADL, Impaired postural co ntrol, Decreased strength/endurance for functional activity, Impaired safety awareness and Impaired Cognition and will benefit from continued OT services to address above areas and improve functional status. P: Patient/Caregivier Education, Equipment recommendations, Daily living activities, Therapeutic exercises, Neuromuscular Re-Education and Cognitive retraining Juan Ramon FROST/Zeke Pager [phone] Supervising OTR Cristina Marinelli Total Timed Treatment Codes: 41 Min Total Treatment Time: 41 Min Pedro Pablo Choudhury MBBS - 01/06/2020 7:31 AM CDT Summary: Neuro Stoke Team Progress Note STROKE PROGRESS NOTE DATE OF SERVICE: 01/06/2020 07:35 Day of Hospitalization: 13 CHIEF COMPLAINT: aphagia and R sided weakness 24-HOUR EVENTS: - NAEON SUBJECTIVE: Patient is awake, opens eyes, turns head, responds to name. STROKE DOCUMENTATION NIH STROKE SCALE LOC: 1 Not Alert: Arousable With Minor Stimulation to Obey, Answer or Respond LOC QUESTIONS: 2 Answers Neither Question Correctly LOC COMMANDS: 2 Performs Neither Task Correctly BEST GAZE: 1 Partial Gaze Palsy VISUAL: 0 No Visual Loss FACIAL PALSY: 2 Partial Paralysis MOTOR ARM-LEFT: 2 Some Effort Against [place] MOTOR ARM-RIGHT: 4 No Movement MOTOR LEG-LEFT: 1 Drift MOTOR LEG-RIGHT: 3 No Effort Against [place] LIMB ATAXIA: 0 Absent SENSORY: 0 Normal BEST LANGUAGE: 3 Mute, Global Aphasia DYSARTHRIA: UN Intubated or Other Physical Barrier, Explain EXTINCTION AND INATTENTION (FORMERLY NEGLECT): 0 No Abnormalty STROKE SCALE INTERVAL: Day 4 STROKE SCALE TOTAL SCORE: 21 OBJECTIVE: PHYSICAL EXAM Vitals: 01/06/20 0157 01/06/20 0328 01/06/20 0705 01/06/20 0715 BP: 138/83 (!) 144/84 BP Location: Left arm Patient Position: Supine Pulse: 83 82 78 82 Resp: 18 18 18 18 Temp: 36.6 C (97.8 F) 36.9 C (98.5 F) TempSrc: Oral Oral SpO2: 97% 97% 95% 99% Weight: Height: General: Patient is awake, opens eyes to her name, able to junior programmer hand Mental Status: Consciousness, attention, concentration: impaired Speech/ Language: impaired to comprehension, fluency, repetition and naming. Global aphasia Fund of knowledge: unable to assess due to aphasia Remote and recent memory: unable to assess due to aphasia Cranial Nerves: I. Not tested. II. Unable to track to command but looking in all directions III. IV., . Unable to track fingers, move eyes spontaneously in all directions, preferred left gaze. V. Unable to assess VII. R facial droop, UMN type VIII. Unable to assess IX., X. Unable to assess XI. Unable to assess XII.Unable to assess Motor: Tone: R side flaccid Bulk: decreased LUE: at least 3/5 LLE at least 3/5 RUE: 1/5 to pain RLE: 1/5 to pain DTR's: Right Left Biceps 2+ 2+ Triceps 2+ 2+ Brachioradialis 2+ 2+ Patella 2+ 2+ Achilles 1+ 1+ Pathologic reflexes and signs: Babinski: present on R side Cerebellar: No nystagmus, APPLE rest Sensory: Withdraws to pain on right extremities Gait: APPLE Lungs: wheezing heard Cardio: S1, S2 normal; regular rate and rhythm; no murmurs or gallops Extremities: no cyanosis,clubbing or edema Neck: supple,no carotid bruit,no JVD Abdomen: soft; non-tender; non-distended; normoactive bowel sounds heard MEDICATIONS Current Facility-Administered Medications Medication Dose Route Frequency Last Rate Last Dose lisinopriL (PRINIVIL,ZESTRIL) tablet 20 mg 20 mg Enteral BID 20 mg at 01/05/201946 amLODIPine (NORVASC) tablet 10 mg 10 mg Enteral DAILY 10 mg at 01/05/20856 clopidogreL (PLAVIX) tablet 75 mg 75 mg Enteral DAILY 75 mg at 01/05/2057 risperiDONE (RISPERDAL) tablet 0.5 mg 0.5 mg Enteral BID 0.5 mg at 01/05/201946 acetylcysteine (MUCOMYST) 200 mg/mL (20 %) solution 200 mg 1 mL Inhalation Q6H 200 mg at 01/06/20 0705 chlorhexidine (PERIDEX) 0.12 % mouthwash 15 mL 15 mL Oral (Swish And Spit Out) Q6H 15 mL at 01/06/20 0525 ipratropium-albuteroL (DUONEB) 0.5 mg-3 mg(2.5 mg base)/3 mL nebulizer solution 3 mL 3 mL Inhalation Q6H ABX 3 mL at 01/06/20 0705 Saline Bubble Study 6 mL Injection SEE-INSTRUCTIONS 6 mL at 12/29/19 1500 Saline Bubble Study 6 mL Injection SEE-INSTRUCTIONS 6 mL at 12/29/19 1500 levETIRAcetam (KEPPRA) 100 mg/mL oral solution 750 mg 750 mg Enteral BID 750 mg at 01/05/201946 Polyethylene Glycol 3350 (MIRALAX) powder 17 g 17 g Enteral BID Stopped at 01/05/201999 sennosides-docusate sodium (SENOKOT-S) 8.6-50 mg per tablet 1 tablet 1 tablet Enteral BID Stopped at 01/05/201999 hydralAZINE (APRESOLINE) injection 10 mg 10 mg Slow IV Push Q6HPRN 10 mg at 01/04/202039 aspirin EC tablet 81 mg 81 mg Enteral DAILY 81 mg at 01/05/20 0857 atorvastatin (LIPITOR) tablet 40 mg 40 mg Enteral QHS 40 mg at 01/05/201946 famotidine (PEPCID) 40 mg/5 mL (8 mg/mL) suspension 20 mg 20 mg Enteral BID 20 mg at heparin (porcine) injection 5,000 Units 5,000 Units Subcutaneous Q12H 5,000 Units at LABS Recent Results (from the past 24 hour(s)) CBC WITHOUT DIFF Collection Time: 01/05/20 8:56 AM Result Value Ref Range WBC 14.03 (H) 4.30 - 11.10 10*3/L RBC 4.75 3.93 - 5.25 10*6/L HGB 15.0 11.6 - 15.0 g/dL HCT 44.9 35.7 - 45.2 % MCH 31.6 25.9 - 32.8 pg MCV 94.5 80.6 - 95.5 fL MCHC 33.4 31.6 - 35.1 g/dL PLT 312 166 - 358 10*3/L MPV 10.5 9.5 - 12.9 fL RDW-CV 12.3 12.0 - 15.5 % RDW-SD 42.5 39.0 - 49.9 fL NRBC x10^3 <0.01 10*3/L NRBC/100 WBC 0.0 0.0 - 10.0 /100 WBCs IPF % BASIC METABOLIC PANEL (NA, K, CL, CO2, GLUCOSE, BUN, CREATININE, CA) Collection Time: 01/05/20 8:56 AM Result Value Ref Range NA 145 135 - 145 mmol/L K 4.7 3.5 - 5.0 mmol/L CL 110 (H) 98 - 108 mmol/L CO2 TOTAL 28 23 - 31 mmol/L AGAP 7 2 - 16 BUN 32 (H) 7 - 23 mg/dL GLUCOSE 103 70 - 110 mg/dL CREATININE 0.77 0.50 - 1.04 mg/dL CALCIUM 9.9 8.6 - 10.6 mg/dL eGFR Calculation (Non-) 77.0 mL/min/1.73m2 eGFR Calculation () 93.3 mL/min/1.73m2 URINALYSIS Collection Time: 01/05/20 6:45 PM Result Value Ref Range APPEARANCE Cloudy (A) Clear COLOR Yellow Yellow PH 7.0 4.8 - 8.0 SP GRAVITY 1.012 1.003 - 1.030 GLU U QUAL Normal Normal BLOOD Negative Negative KETONES Negative Negative PROTEIN Negative Negative UROBILIN Normal Normal BILIRUBIN Negative Negative NITRITE Negative Negative LEUK LOGAN Negative Negative RBC/HPF 7 (H) 0 - 3 HPF WBC/HPF 2 0 - 5 HPF BACTERIA Negative Negative SQ EPITH <1 <=2 HPF ASCORBIC ACID 40 mg/dL STROKE LABS HGB A1C (%) Date Value 12/24/2019 5.2 LDL CHOL (mg/dL) Date Value 12/24/2019 109 CHOL (mg/dL) Date Value 12/24/2019 211 (H) TSH (mIU/L) Date Value 12/24/2019 2.06 Recent Labs 12/24/19 1241 12/26/19 0405 TROPNI 0.017 0.013 RADIOLOGY No final results containing an impression from the past 48 hours were found. ASSESSMENT AND PLAN Funmilayo Mcmillan is a 59 year old female with PMHx of the following stroke risk factors: HTN, CAD s/p PCI, drug abuse, bipolar, PAD, who presented withright side weakness, global aphasia, confusion. LSN:>24hr, NIHSS21. CT headacute-subacute infact of L MCA, CTA head and neckshowed complete occlusion of L cervical ICA and 50% narrowing of right proximal cervical ICA. Mild focal narrowingof mid basilar artery, some collateral flow over distal MCA.Case discussed with Dr. Beach and agreed no need for intervention as patient has good collaterals and passed window of intervention. MRIbrain showed left MCA territory with no evidence of hemorrhagic transformation. Patient continued marcelino encephalopathic, cEEG showed no seizures.No new changes observed. Subacute-acute ischemic stroke of L MCA, mid M1 occlusion Right gaze, concern for seizure resolved Complete occlusion of L ICA Hx of cocaine abuse (UDS +ve cocaine) - Neurochecks - Telemetry - SBP : 138-144 - c/w Keppra 750 mg BID - c/w aspirin, plavix 75 mg daily - Atorvastatin 40 mg QHS - Risperidal 0.5 mg BID - consult palliative care - daughter is not interested in palliative intervention - pending discharge home - DME in process, awaiting insurance authorization CAD s/p PCI HTN Multiple PVC HFrEF ( EF 40-45%) COPD - adjust BP meds accordingly - Duonebs QID and mucomyst Q6H Dysphagia s/p PEG tube placement MBS done, showed aspiration -c/wbolus feeds - speech onboard Discharge recommendation: continued WEB CONTENT EXECUTIVE therapy at d/clocation (HH/OP speech consult if d/c home);06/10 supervision/assistd/t safety concerns - GI Prophylaxis: famotidine - DVT Prophylaxis: heparin - Code status:FULL The case was discussed and seen with Dr. King, Neurology Faculty. Magno Jared MS3, 01/06/2020 Stroke pager: [phone] HOSPITAL COURSE: Funmilayo Mcmillan is a 59 year old unknown handednesscaucasian female with PMHX of bipolar, depression, HTN, CAD s/p PCI, , PAD, stroke?, TB, drug abuse (crack)who presented with CC of AMS, right side weakness, aphasia. LSN : unknown, At OSH ER, BP 167/104, HR 67, afebrile, RR20, UDS +ve cocaine and HTC, UA negative, TSH wnl, LFT wnl, bmp wnl, cbc mildly elevated wbc of 12.3, trop negative. CTH showed acute-subacute L MCA infact, transferred to [facility]. CT angiogram head and neck showed complete occlusion of left cervical ICA from just distal to the bulb through the supraclinoid segment at the level of the ophthalmic artery, mild to moderate narrowing of basilar artery. Required cardene for BP managament later weaned off. Developed right gaze preference on 12/24 loaded with Keppra and started on maintenance Keppra. CEEG showed no electrographic seizures or epileptiform discharges. MRI Brain demonstrated large infarct in left MCA territory without hemorrhagic transformation. TTE showed EF 40-45% with wall motion abnormalities. Cardiology consulted for reduced EF.Repeat focused echo withworsened EF (30-35%) and anterolateral/apical hypokinesis.Plan for PEG tube placement, plavix held.Transferred to floor 12/27 afternoon, no acute events overnight. However, on 12/28 continued to have copious secretions requiring frequent suctioning. MD notified at 11:54 AM and transferred back to ICU for higher level of care. Patient started on scheduled nebulizers with improvement in respiratorystatus, deemed stable for transfer to floor.Daughter refused palliative care and requested discharge to home. Pending insurance authorization for DME and plan to discharge. MEDICATIONS: reviewed I personally examined the patient on 01/06/2020 and have verified the medical student documentation and/or findings, including the history, physical exam, and medical decision making. Additionally, I have personally performed or re- performed the physical exam and medical decision making activities of this patient's evaluation and management service. Pedro Pablo Newsome MD Neurology, PGY-2 Pager # [phone] Associated attestation - Rudy King MD - 01/06/2020 6:04 PM CDT Vascular Neurology attending attestation/addendum: Patient was seen and examined by me with the stroke team during the rounds. I actively participated in evaluation, management and developing the plan of care for this patient. History and ROS grossly obtained from the chart review, discussed with patient at bedside. Please refer to neurology resident's note for details with additions/exceptions as below. 59 years old woman with multiple vascular risk factors including age, HTN, CAD s/p PCIs, PAD and substance abuse is evaluated at [facility] for right hemiplegia, right HH global aphasia and partial right gaze palsy due to left MCA distribution stroke in this patient with left proximal/cervical ICA occlusion with on current tandem left MCA mid-M1 occlusion - likely mechanism being large vessel disease i.e. Left cervical/proximal ICA steno-occlusive disease with tandem left MCA occlusion and subsequent local thrombosis. TTE remarkable for low LVEF, 30-35% with regional wall motion abnormalities without anyevidence of LV thrombus nor showed any interatrial shunt. Patient with continued right hemiplegia and global aphasia. Plan: Agree to continue with short duration dual antiplatelet therapy for 3 weeks for aggressive secondary stroke prevention followed by aspirin. Atorvastatin 80 mg at bedtime, LDL 109. HbA1c 5.2, continue with aggressive vascular risk factors modification. Evaluation and management of low LVEF/CAD workup as per cardiology team. Continue telemetry. Plan for prolonged cardiac monitoring with 30 days event monitor as outpatient. PT/OT/speech and swallow evaluation. Appreciate palliative care consultation to aid in determining the long-term goals of care. Case discussed with case manag er, DMEs are planned to be delivered on Thursday. Continue with bolus PEG tube feedings. Anticipate discharge on Thursday. More than 18 minutes were spent in evaluation and management of this patient, more than 50% of the time was spent in counseling and coordinating care for this patient. Abdifatah Damon RN - 01/05/2020 2:56 PM CDTCare Management Note: REY spoke with education administrator Fantasma at [address] [place]. [address] Phone: [phone] , who stated patient is pending insurance auth for DMEat this time. REY/ROB will follow up Julian Damon Jr. RN, BSN. [employer] [phone] [email or web address] Pedro Pablo Choudhury MBBS - 01/05/2020 7:57 AM CDT STROKE PROGRESS NOTE DATE OF SERVICE: 01/05/2020 07:58 Day of Hospitalization: 12 CHIEF COMPLAINT: aphasia and R sided weakness 24-HOUR EVENTS: - NAEON SUBJECTIVE: Patient is awake, opens eyes, turns head, responds to name. STROKE DOCUMENTATION NIH STROKE SCALE LOC: 1 Not Alert: Arousable With Minor Stimulation to Obey, Answer or Respond LOC QUESTIONS: 2 Answers Neither Question Correctly LOC COMMANDS: 2 Performs Neither Task Correctly BEST GAZE: 1 Partial Gaze Palsy VISUAL: 0 No Visual Loss FACIAL PALSY: 2 Partial Paralysis MOTOR ARM-LEFT: 2 Some Effort Against [place] MOTOR ARM-RIGHT: 4 No Movement MOTOR LEG-LEFT: 1 Drift MOTOR LEG-RIGHT: 3 No Effort Against [place] LIMB ATAXIA: 0 Absent SENSORY: 0 Normal BEST LANGUAGE: 3 Mute, Global Aphasia DYSARTHRIA: UN Intubated or Other Physical Barrier, Explain EXTINCTION AND INATTENTION (FORMERLY NEGLECT): 0 No Abnormalty STROKE SCALE INTERVAL: Day 4 STROKE SCALE TOTAL SCORE: 21 OBJECTIVE: PHYSICAL EXAM Vitals: 01/05/20 0404 01/05/20 0705 01/05/20 0719 01/05/20 0731 BP: 129/74 (!) 188/97 BP Location: Left arm Right arm Patient Position: Supine Pulse: 77 76 70 74 Resp: Temp: 36.6 C (97.9 F) 36.3 C (97.3 F) TempSrc: Oral Oral SpO2: 97% 98% 99% 98% Weight: Height: General: Patient is awake, opens eyes to her name, able to junior programmer hand Mental Status: Consciousness, attention, concentration: impaired Speech/ Language: impaired to comprehension, fluency, repetition and naming. Global aphasia Fund of knowledge: unable to assess due to aphasia Remote and recent memory: unable to assess due to aphasia Cranial Nerves: I. Not tested. II. Unable to track to command but looking in all directions III. IV., . Unable to track fingers, move eyes spontaneously in all directions, preferred left gaze. V. Unable to assess VII. R facial droop, UMN type VIII. Unable to assess IX., X. Unable to assess XI. Unable to assess XII.Unable to assess Motor: Tone: R side flaccid Bulk: decreased LUE: at least 3/5 LLE at least 3/5 RUE: 1/5 to pain RLE: 1/5 to pain DTR's: Right Left Biceps 2+ 2+ Triceps 2+ 2+ Brachioradialis 2+ 2+ Patella 2+ 2+ Achilles 1+ 1+ Pathologic reflexes and signs: Babinski: present on R side Cerebellar: No nystagmus, APPLE rest Sensory: Withdraws to pain on right extremities Gait: APPLE Lungs: wheezing heard Cardio: S1, S2 normal; regular rate and rhythm; no murmurs or gallops Extremities: no cyanosis,clubbing or edema Neck: supple,no carotid bruit,no JVD Abdomen: soft; non-tender; non-distended; normoactive bowel sounds heard MEDICATIONS Current Facility-Administered Medications Medication Dose Route Frequency Last Rate Last Dose lisinopriL (PRINIVIL,ZESTRIL) tablet 20 mg 20 mg Enteral BID 20 mg at 01/04/202017 amLODIPine (NORVASC) tablet 10 mg 10 mg Enteral DAILY 10 mg at 01/04/20922 clopidogreL (PLAVIX) tablet 75 mg 75 mg Enteral DAILY 75 mg at 01/04/20922 risperiDONE (RISPERDAL) tablet 0.5 mg 0.5 mg Enteral BID 0.5 mg at 01/04/20 2019 acetylcysteine (MUCOMYST) 200 mg/mL (20 %) solution 200 mg 1 mL Inhalation Q6H 200 mg at 01/05/20 0705 chlorhexidine (PERIDEX) 0.12 % mouthwash 15 mL 15 mL Oral (Swish And Spit Out) Q6H 15 mL at 01/05/20 0549 ipratropium-albuteroL (DUONEB) 0.5 mg-3 mg(2.5 mg base)/3 mL nebulizer solution 3 mL 3 mL Inhalation Q6H ABX 3 mL at 01/05/20 0705 Saline Bubble Study 6 mL Injection SEE-INSTRUCTIONS 6 mL at 12/29/19 1500 Saline Bubble Study 6 mL Injection SEE-INSTRUCTIONS 6 mL at 12/29/19 1500 levETIRAcetam (KEPPRA) 100 mg/mL oral solution 750 mg 750 mg Enteral BID 750 mg at 01/04/20 2018 scopolamine transdermal (TRANSDERM-SCOP) patch 1.5 mg 1.5 mg Topical Q72H 1.5 mg at 01/03/20 1000 Polyethylene Glycol 3350 (MIRALAX) powder 17 g 17 g Enteral BID Stopped at 01/04/202017 sennosides-docusate sodium (SENOKOT-S) 8.6-50 mg per tablet 1 tablet 1 tablet Enteral BID Stopped at 01/04/202018 hydralAZINE (APRESOLINE) injection 10 mg 10 mg Slow IV Push Q6HPRN 10 mg at 01/04/20 2040 aspirin EC tablet 81 mg 81 mg Enteral DAILY 81 mg at 01/04/20 0923 atorvastatin (LIPITOR) tablet 40 mg 40 mg Enteral QHS 40 mg at 01/04/202017 famotidine (PEPCID) 40 mg/5 mL (8 mg/mL) suspension 20 mg 20 mg Enteral BID 20 mg at 01/04/202018 heparin (porcine) injection 5,000 Units 5,000 Units Subcutaneous Q12H 5,000 Units at 01/04/202017 LABS No results found for this or any previous visit (from the past 24 hour(s)). STROKE LABS HGB A1C (%) Date Value 12/24/2019 5.2 LDL CHOL (mg/dL) Date Value 12/24/2019 109 CHOL (mg/dL) Date Value 12/24/2019 211 (H) TSH (mIU/L) Date Value 12/24/2019 2.06 Recent Labs 12/24/19 1241 12/26/19 0405 TROPNI 0.017 0.013 RADIOLOGY Mod Barium Swallow, (cookerasmo) Result Date: 01/04/2020 1. Episodes of both laryngeal penetration and aspiration observed. 2. Please see separate Speech Pathology report for recommendations and additional findings. Preliminary Report Dictated by Resident:Any Torres I, Ángela Singletary MD., have reviewed this study and agree with the above report. ASSESSMENT AND PLAN Funmilayo Mcmillan is a 59 year old female with PMHx of the following stroke risk factors: HTN, CAD s/p PCI, drug abuse, bipolar, PAD, who presented withright side weakness, global aphasia, confusion.LSN:>24hr, NIHSS21. CT headacute-subacute infact of L MCA, CTA head and neckshowed co mplete occlusion of L cervical ICA and 50% narrowing of right proximal cervical ICA. Mild focal narrowing of mid basilar artery, some collateral flow over distal MCA.Case discussed with dr Beach and agreed no need for intervention as patient has good collaterals and passed window of intervention.MRI brain showed left MCA territory with no evidence of hemorrhagic transformation. Patient continued to be encephalopathic, cEEG showed no seizures. Unchanged exam Subacute-acute ischemic stroke of L MCA, mid M1 occlusion Right gaze, concern for seizure resolved Complete occlusion of L ICA Hx of cocaine abuse (UDS +ve cocaine) - Neurochecks - Telemetry - SBP : 120-160 - c/w Keppra 750 mg BID - c/w aspirin, plavix 75 mg daily - Atorvastatin 40 mg QHS - Risperidal 0.5 mg BID - consult palliative care - daughter is not interested in palliative intervention - pending discharge home - DME in process CAD s/p PCI HTN Multiple PVC HFrEF ( EF 40-45%) COPD Increased secretions Concern for aspiration pneumonia - adjust BP meds accordingly - Duonebs QID and mucomyst Q6H Dysphagia s/p PEG tube placement - c/w bolus feeds - speech onboard - GI Prophylaxis: famotidine - DVT Prophylaxis: heparin - Code status: FULL The case was discussed and seen with Dr. King, Neurology Faculty. Stroke pager: [phone] Pedro Pablo Newsome MD Neurology, PGY-2 Pager # [phone] HOSPITAL COURSE: Funmilayo Mcmillan is a 59 year old unknown handednesscaucasian female with PMHX of bipolar, depression, HTN, CAD s/p PCI, , PAD, stroke?, TB, drug abuse (crack)who presented with CC of AMS, right side weakness, aphasia. LSN : unknown, At OSH ER, BP 167/104, HR 67, afebrile, RR20, UDS +ve cocaine and HTC, UA negative, TSH wnl, LFT wnl, bmp wnl, cbc mildly elevated wbc of 12.3, trop negative. CTH showed acute-subacute L MCA infact, transferred to [facility]. CT angiogram head and neck showed complete occlusion of left cervical ICA from just distal to the bulb through the supraclinoid segment at the level of the ophthalmic artery, mild to moderate narrowing of basilar artery. Required cardene for BP managament later weaned off. Developed right gaze preference on 12/24 loaded with Keppra and started on maintenance Keppra. CEEG showed no electrographic seizures or epileptiform discharges. MRI Brain demonstrated large infarct in left MCA territory without hemorrhagic transformation. TTE showed EF 40-45% with wall motion abnormalities. Cardiology consulted for reduced EF.Repeat focused echo withworsened EF (30-35%) and anterolateral/apical hypokinesis.Plan for PEG tube placement, plavix held.Transferred to floor 12/27 afternoon, no acute events overnight. However, on 12/28 continued to have copious secretions requiring frequent suctioning. MD notified at 11:54 AM and transferred back to ICU for higher level of care. Patient started on scheduled nebulizers with improvement in respiratorystatus, deemed stable for transfer to floor. Associated attestation - Rudy King MD - 01/05/2020 3:07 PM CDT Vascular Neurology attending attestation/addendum: Patient was seen and examined by me with the stroke team during the rounds. I actively participated in evaluation, management and developing the plan of care for this patient. History and ROS grossly obtained from the chart review, discussed with patient at bedside. Please refer to neurology resident's note for details with additions/exceptions as below. 59 years old woman with multiple vascular risk factors including age, HTN, CAD s/p PCIs, PAD and substance abuse is evaluated at [facility] for right hemiplegia, right HH global aphasia and partial right gaze palsy due to left MCA distribution stroke in this patient with left proximal/cervical ICA occlusion with on current tandem left MCA mid-M1 occlusion - likely mechanism being large vessel disease i.e. Left cervical/proximal ICA steno-occlusive disease with tandem left MCA occlusion and subsequent local thrombosis. TTE remarkable for low LVEF, 30-35% with regional wall motion abnormalities without anyevidence of LV thrombus nor showed any interatrial shunt. Patient with continued right hemiplegia and global aphasia. Plan: Agree to continue with short duration dual antiplatelet therapy for 3 weeks for aggressive secondary stroke prevention followed by aspirin. Atorvastatin 80 mg at bedtime, LDL 109. HbA1c 5.2, continue with aggressive vascular risk factors modification. Evaluation and management of low LVEF/CAD workup as per cardiology team. Continue telemetry. Plan for prolonged cardiac monitoring with 30 days event monitor as outpatient. PT/OT/speech and swallow evaluation. Appreciate palliative care consultation to aid in determining the long-term goals of care. Awaiting DMEs to be deliveredto optimize discharge disposition. Family training completed. Continue with bolus PEG tube feedings. More than 26 minutes were spent in evaluation and management of this patient, more than 50% of the time was spent in counseling and coordinating care for this patient. Elin Wolf - 01/04/2020 4:54 PM CDT Medical Nutrition Therapy Progress Note Subjective: Tolerating bolus feeds well per RN. RN reports diarrhea today but states that bowel regimen was given - recommend decrease bowel regimen. Patient Active Problem List Diagnosis PAD (peripheral artery disease) Chest pain Coronary artery disease without angina pectoris HTN (hypertension) Acute ischemic left MCA stroke Cocaine abuse At risk for seizures E44.0 Moderate protein calorie malnutrition Respiratory distress Medications: Current Facility-Administered Medications: lisinopriL (PRINIVIL,ZESTRIL) tablet 20 mg, 20 mg, Enteral, BID, Pedro Pablo Newsome MBBS, 20 mg at 01/04/20 0929 amLODIPine (NORVASC) tablet 10 mg, 10 mg, Enteral, DAILY, Abhishek Berumen MBBS, 10 mg at 01/04/20 0923 clopidogreL (PLAVIX) tablet 75 mg, 75 mg, Enteral, DAILY, Abhishek Berumen MBBS, 75 mg at 01/04/20 0923 risperiDONE (RISPERDAL) tablet 0.5 mg, 0.5 mg, Enteral, BID, Abhishek Berumen MBBS, 0.5 mg at 01/04/20 0923 acetylcysteine (MUCOMYST) 200 mg/mL (20 %) solution 200 mg, 1 mL, Inhalation, Q6H, Abhishek Berumen MBBS, 200 mg at 01/04/20 1340 chlorhexidine (PERIDEX) 0.12 % mouthwash 15 mL, 15 mL, Oral (Swish And Spit Out), Q6H, Abhishek Berumen MBBS, 15 mL at 01/04/20 0218 ipratropium-albuteroL (DUONEB) 0.5 mg-3 mg(2.5 mg base)/3 mL nebulizer solution 3 mL, 3 mL, Inhalation, Q6H ABX, Jason Bloom MD, 3 mL at 01/04/20 1337 Saline Bubble Study, 6 mL, Injection, SEE-INSTRUCTIONS, Michelle Avery MD, 6 mL at 12/29/19 1500 Saline Bubble Study, 6 mL, Injection, SEE-INSTRUCTIONS, Michelle Avery MD, 6 mL at 12/29/19 1500 levETIRAcetam (KEPPRA) 100 mg/mL oral solution 750 mg, 750 mg, Enteral, BID, Abhishek Berumen MBBS, 750 mg at 01/04/20 0923 scopolamine transdermal (TRANSDERM-SCOP) patch 1.5 mg, 1.5 mg, Topical, Q72H, Abhishek Berumen MBBS, 1.5 mg at 01/03/20 1000 Polyethylene Glycol 3350 (MIRALAX) powder 17 g, 17 g, Enteral, BID, Leland Richards MD, 17 g at 01/04/20 0929 sennosides-docusate sodium (SENOKOT-S) 8.6-50 mg per tablet 1 tablet, 1 tablet, Enteral, BID, Leland Richards MD, 1 tablet at 01/04/20 09 hydralAZINE (APRESOLINE) injection 10 mg, 10 mg, Slow IV Push, Q6HPRN, Abhishek Berumen MBBS, 10 mg at 01/02/20 164 aspirin EC tablet 81 mg, 81 mg, Enteral, DAILY, Pedro Pablo Newsome MBBS, 81 mg at 01/04/20922 atorvastatin (LIPITOR) tablet 40 mg, 40 mg, Enteral, QHS, Pedro Pablo Newsome MBBS, 40 mg at 01/03/202032 famotidine (PEPCID) 40 mg/5 mL (8 mg/mL) suspension 20 mg, 20 mg, Enteral, BID, Pedro Pablo Newsome MBBS, 20 mg at 01/04/20922 heparin (porcine) injection 5,000 Units, 5,000 Units, Subcutaneous, Q12H, Pedro Pablo Newsome MBBS, 5,000 Units at 01/04/20 0915 Lab and Medical Test Results: 12/31/2019 04:11 01/01/2020 04:26 WBC x10^3 7.90 8.09 RBC x10^6 4.17 4.16 HGB 13.1 13.0 HCT 39.8 39.8 MCV 95.4 95.7 (H) MCH 31.4 31.3 MCHC 32.9 32.7 12/31/2019 04:11 01/01/2020 04:26 NA 136 138 K 4.0 3.8 CL 108 106 CO2 TOTAL 22 (L) 26 AGAP 6 6 BUN 16 19 GLUCOSE 89 121 (H) CREATININE 0.67 0.75 eGFR CALCULATION (non ) 90.4 79.4 CALCIUM 8.3 (L) 9.1 MAGNESIUM 1.8 2.0 Intake/Output Summary (Last 24 hours) at 01/04/2020 1654 Last data filed at 01/04/2020 1632 Gross per 24 hour Intake 1760 ml Output 1500 ml Net 260 ml Weight History: Wt Readings from Last 10 Encounters: 10/16/20 48 kg (105 lb 13.1 oz) 12/16/19 51.3 kg (113 lb 3.2 oz) 12/13/19 51.4 kg (113 lb 6.4 oz) 02/01/19 53.3 kg (117 lb 8 oz) 01/25/19 54.3 kg (119 lb 12.8 oz) 11/14/18 51.3 kg (113 lb) 10/01/18 51.6 kg (113 lb 12.8 oz) 07/13/18 52.4 kg (115 lb 8 oz) 07/01/18 52.6 kg (116 lb) 01/04/18 53.2 kg (117 lb 4.8 oz) Inflammatory Markers: Hyperglycemia Current Dietary Order(s): NPO Diet. Jevity 1.2 Itz (1.2 kcal/mL, protein 18.5% of kcal) Estimated Daily Nutritional Needs: Calories: 9047-4062 kcal/day = 30-35 kcal/kg current wt Protein: 38-58 g/day = 0.8-1.2 g/kg current wt Fluid: 7603-9252 mL/day or per MD; adjust per acute needs Nutrition Diagnosis: Moderate protein calorie malnutrition related to suspected inadequate oral intake d/t lifestyle choices as evidenced by moderate fat loss to orbital region, moderate muscle loss to quadriceps and temporal regions, and 7.1% weight loss x 1 week. Interventions: ? 5.5 cartons of Jevity 1.2 per day (1320 mL) Ex: 2 cans @ 0800, 1 cans @ 1200, 1 cans @ 1700, 1.5 cans @ 2000 EN will provide 1584 kcal, 73 g protein, 1065 ml free water For best tolerance, formula at room temperature. Suggest bolusing slowly over >15-30 minutes. Edroy or longer bolus time may be needed per pt's individual tolerance/preference Fluid provided by formula alone at goal above is not sufficient to maintain hydration. Suggest 65mL free water before and after each bolus feed (assuming 4 bolus feeds per day) or additional water per MD discretion. Decrease bowel regimen Goals: 1. Meet >75% of nutrition needs with EN. Monitoring and Evaluation: A registered dietitian will follow up by 01/09. Please call with any questions or concerns, thank-you. D/C Planning: See bolus recommendations above. Evelyn Wolf MS, RD, LD Clinical Dietitian Office: [phone] Adrienne Garcia SW - 01/04/2020 3:49 PM CDTCare Coordinator Continued Stay Note Length of stay day: 11 What was patient admitted for?: STROKE What has changed in the last 24 hours: ABBY What are we doing for this patient that they still need to be in the hospital: Funmilayo Mcmillan is a 59 year old female with PMHx of the following stroke risk factors: HTN, CAD s/p PCI, drug abuse, bipolar, PAD, who presented withright side weakness, global aphasia, confusion.LSN:>24hr, NIHSS21. CT headacute-subacute infact of L MCA, CTA head and neckshowed complete occlusion of L cervical ICA and 50% narrowing of right proximal cervical ICA. Mild focal narrowing of mid basilar artery, some collateral flow over distal MCA.Case discussed with dr Beach and agreed no need for intervention as patient has good collaterals and passed window of intervention. MRI brain showed left MCA territory with no evidence of hemorrhagic transformation. Patient continuedto be encephalopathic, cEEG showed no seizures. Unchanged exam Subacute-acute ischemic stroke of L MCA, mid M1 occlusion Right gaze, concern for seizure resolved Complete occlusion of L ICA Hx of cocaine abuse (UDS +ve cocaine) - Neurochecks - Telemetry - SBP : 120-160 - c/w Keppra 750 mg BID - c/w aspirin, plavix 75 mg daily - Atorvastatin 40 mg QHS - Risperidal 0.5 mg BID - consult palliative care - pending discharge home CAD s/p PCI HTN Multiple PVC HFrEF ( EF 40-45%) COPD Increased secretions Concern for aspiration pneumonia - adjust BP meds accordingly - Duonebs QID and mucomyst Q6H - Scopolamine patch for increased secretions. Dysphagia s/p PEG tube placement - c/w bolus feeds - speech on board What is medically needed to move the patient to a lower level of care? (IV to PO etc.): n/a, pending insurance auth for DME needs What is EDOD: pending insurance auth for DME What is the discharge plan for the patient: home with family/daughter, Ayah Scanlon [phone], DME, HH ROB emailed rep with [facility] [address], [place], [place] [phone] fax inquiring about update on DME which is pending insurance auth (may take 48-72hrs from yesterday) ROB faxed request for ambulance auth to [place] [employer] [phone]. Ambulance pended at this time What are the barriers: insurance auth Plan/Need for family meeting: ROB discusses plan of care and provides updates to patient's daughter regularly FERNANDO Magaña-IPR [phone] [address] [place] [address] Care Mgmt Dept Adrienne dodd SW - 01/04/2020 2:26 PM CDTSocial Work note: ROB emailed rep with [facility] [address], [place], [place] [phone] fax inquiring about update on DME which is pending insurance auth (may take 48-72hrs from yesterday) MD coral RIVAS faxed request for ambulance auth to [place] [employer] [phone]. Ambulance pended at this time FERNANDO Magaña-IPR [phone] [address] [place] [address] Care Mgmt Dept [address] Keshia Lugo SLP - 01/04/2020 2:13 PM CDTSPEECH LANGUAGE PATHOLOGY Daily Progress Note - 01/04/2020 [id number] Funmilayo Mcmillan : 1960 Age: [age] year old Sex: female SUBJECTIVE: Patient sleeping upon arrival but roused to verbal/tactile stimuli. OBJECTIVE: Funmilayo Mcmillan was seen for 1 WEB CONTENT EXECUTIVE treatment session/s on this date. Treatment was provided due to dysphagia and aphasia. Patient is a 59 year old female admitted for AMS, aphasia and R sided weakness with PMH significant for HTN, CAD s/p PCI, drug abuse (hx of cocaine abuse), bipolar, PAD. NIHSS 21. MRI Brain demonstrated large infarct in left MCA territory without hemorrhagic transformation.PEG placed on 12/29. Of note, palliative care consulted on 01/02. MBS (01/03/20) Impressions: severe oral and moderate pharyngeal dysphagia; penetration and flash aspiration of nectar-thick liquids and chewable solid (PAS 5, 6); deep penetration and silent aspirationof thin liquids (PAS 5, 8) Progress on short term goals was as follows: Swallowing: - Patient/family/staff will verbalize importance of and demonstrate compliance to strict oral hygiene care with mod cues: No family present. WEB CONTENT EXECUTIVE completed oral hygiene care, however this was limited d/t patient's decreasedability to follow directions/open mouth on command. Oral care supplies left at bedside. Will continue education with family and staff in the coming days. (continue goal) - Patient/family/staff will verbalize precautions for and demonstrate compliance with free water protocol with mod cues: No family present. After oral care, patient given 3 tsp sips and 1 cup sip of water. She was noted to cough intermittently. (continue goal) - Patient will complete base of tongue, strap muscle, and airway protection exercises with minimal cues 80% of the time (may defer pending on ability to follow directions) APPLE as patient did not follow any commands during session. (goal pending) - Patient will accept PO trials of varying consistencies using bolus-driven therapy with a trained swallow technique without overt concern for aspiration 80% of the time (initiation of task pending oral hygiene care). Will initiate goal pending patient's ability to receive thorough oral care. (goal pending) Verbal Expression: - Patient will communicate basic wants/needs via any language modality (i.e. naming, gesturing, picture communication board) with 80% accuracy and moderate cues. Despite max cues (direct modeling, hand over hand, etc), patient did not communicate via any modality. (continue goal) - Patient will recite automatic speech sequences (i.e. counting, days of week, etc) with moderate cues 80% of the time. Despite max cues (direct modeling,melodic intonation), patient did not attempt to recite numbers 1-3or days of week. (continue goal) Auditory Comprehension: - Patient will answer simple yes/no questions with 80% accuracy. Patient made no attempt to answer yes/no questions in all 5 trials verbally or with gestures. (continue goal) - Patient will follow one-step commands using body parts with moderate cues 80% of the time. Patient followed simple 1-step commands in 0/5 trials despite max cues (direct modeling, [id number], etc). (continue goal) ASSESSMENT: Funimlayo Mcmillan demonstrated partial progress on swallowing goals and no progress on aphasia goals. Per MBS on 01/02, patient continues to present with severe oral and moderate pharyngeal dysphagia as a result of L CVA with marked impairments in oral bolus control/efficiency and airway protection. Swallowing therapy focused on completion of oral hygiene care. Will plan to continue education withfamily and staff in the coming days. Patient also continues to present with severe-profound mixed expressive-receptive aphasia consistent with global aphasia. She is alert/awake but with no attempts tocommunicate despite max cues. Pt would benefit from continued WEB CONTENT EXECUTIVE services while in-house and after discharge. Should patient discharge home, recommend 06/10 supervision. PLAN: 1. Recommend patient remain NPO andcontinue with alternative means of nutrition/hydration (PEGinplace). 2. Recommend elevated head of bed and frequent, thorough oral hygiene care due to suspected high risk for aspiration. Once oral hygiene completed, recommend free water protocol (small amounts of ice chips only) PRN for QOL, despite aspiration risks (*oral hygiene/care must be completed prior to ice intake*) 3. Recommend WEB CONTENT EXECUTIVE therapy 2-5x/wk for 15-45 min/session to address the above goals. 4. Discharge recommendation: continued WEB CONTENT EXECUTIVE [facility] (HH/OP speech consult if d/c home); 06/10 supervision/assist d/t safety concerns Keshia Lugo M[facility]-WEB CONTENT EXECUTIVE Speech-Language Pathologist Office: [phone] Pager: [phone] Guerrero Jackson - 01/04/2020 1:58 PM CDTPALLIATIVE CARE CENTRAL OFFICE REPAIRER Talked with patient's daughter, Ayah Scanlon. She said she is having a difficult time because she is the only sibling out of 5 who is making an effort to be in touch with patient. Said she is having trouble finding gas money and parking money. I reflected her frustration. I encouraged her to speak with floor social service liaison. She hopes patient can come home soon so she can take care of her. I encouraged self-care. She expressed gratitude for visit. Pedro Pablo Choudhury MBBS - 01/04/2020 10:51 AM CDT STROKE PROGRESS NOTE DATE OF SERVICE: 01/04/2020 10:51 Day of Hospitalization: 11 CHIEF COMPLAINT: aphasia and right sided weakness 24-HOUR EVENTS: NAEON SUBJECTIVE: Patient is awake, open eyes to name STROKE DOCUMENTATION NIH STROKE SCALE LOC: 1 Not Alert: Arousable With Minor Stimulation to Obey, Answer or Respond LOC QUESTIONS: 2 Answers Neither Question Correctly LOC COMMANDS: 2 Performs Neither Task Correctly BEST GAZE: 1 Partial Gaze Palsy VISUAL: 0 No Visual Loss FACIAL PALSY: 2 Partial Paralysis MOTOR ARM-LEFT: 2 Some Effort Against [place] MOTOR ARM-RIGHT: 4 No Movement MOTOR LEG-LEFT: 1 Drift MOTOR LEG-RIGHT: 3 No Effort Against [place] LIMB ATAXIA: 0 Absent SENSORY: 0 Normal BEST LANGUAGE: 3 Mute, Global Aphasia DYSARTHRIA: UN Intubated or Other Physical Barrier, Explain EXTINCTION AND INATTENTION (FORMERLY NEGLECT): 0 No Abnormalty STROKE SCALE INTERVAL: Day 4 STROKE SCALE TOTAL SCORE: 21 OBJECTIVE: PHYSICAL EXAM Vitals: 01/04/20 0514 01/04/20 0723 01/04/20 0749 01/04/20 0903 BP: (!) 159/84 (!) 150/91 BP Location: Right arm Patient Position: Supine Pulse: 64 62 56 76 Resp: 18 18 18 20 Temp: 36.1 C (96.9 F) 36.7 C (98 F) TempSrc: Oral Axillary SpO2: 98% 97% 100% 97% Weight: Height: General: Patient is awake, opens eyes to her name unable to follow commands Mental Status: Consciousness, attention, concentration:impaired. Speech/ Language:impairedto comprehension, fluency, repetition and naming. Global aphasia Fund of knowledge:APPLE Remote and recent memory:APPLE Cranial Nerves: I. Not tested. II.Leftgaze preference improved, unable to track to command but looking around in all directions III. IV., .Unable to track fingers, moves eyes spontaneously in all directions, prefers left gaze V.APPLE VII.RightUMNfacial droop VIII.APPLE IX., X. XI. XII.APPLE Motor: Tone:right side flaccid Bulk:decreased LUE : 4/5 LLE : 4/5 right upper extremity to painful stimuli : 1/5 RLE : to pain 1-2/5 DTR's: Right Left Biceps 2+ 2+ Triceps 2+ 2+ Brachioradialis 2+ 2+ Patella 2+ 2+ Achilles 1+ 1+ Pathologic reflexes and signs: Babinski:present on right side Cerebellar: Nystagmus: neg, FTN,HTS:APPLE, Tremors: neg Sensory: Withdraws to pain in all extremities right > left Gait:APPLE Lungs: Wheezing heard Cardio: S1, S2 normal Extremities:no cyanosis,clubbing or edema Neck:supple,no carotid bruit,no JVD Abdomen: soft; non-tender; non-distended; normoactive bowel sounds heard MEDICATIONS Current Facility-Administered Medications Medication Dose Route Frequency Last Rate Last Dose lisinopriL (PRINIVIL,ZESTRIL) tablet 20 mg 20 mg Enteral BID 20 mg at 01/04/20 0929 amLODIPine (NORVASC) tablet 10 mg 10 mg Enteral DAILY 10 mg at 01/04/20 0923 clopidogreL (PLAVIX) tablet 75 mg 75 mg Enteral DAILY 75 mg at 01/04/20 0923 risperiDONE (RISPERDAL) tablet 0.5 mg 0.5 mg Enteral BID 0.5 mg at 01/04/20 0923 acetylcysteine (MUCOMYST) 200 mg/mL (20 %) solution 200 mg 1 mL Inhalation Q6H 200 mg at 01/04/20 0734 chlorhexidine (PERIDEX) 0.12 % mouthwash 15 mL 15 mL Oral (Swish And Spit Out) Q6H 15 mL at 01/04/20 0218 ipratropium-albuteroL (DUONEB) 0.5 mg-3 mg(2.5 mg base)/3 mL nebulizer solution 3 mL 3 mL Inhalation Q6H ABX 3 mL at 01/04/20 0734 Saline Bubble Study 6 mL Injection SEE-INSTRUCTIONS 6 mL at 12/29/19 1500 Saline Bubble Study 6 mL Injection SEE-INSTRUCTIONS 6 mL at 12/29/19 1500 levETIRAcetam (KEPPRA) 100 mg/mL oral solution 750 mg 750 mg Enteral BID 750 mg at 01/04/20 0923 scopolamine transdermal (TRANSDERM-SCOP) patch 1.5 mg 1.5 mg Topical Q72H 1.5 mg at 01/03/20 1000 Polyethylene Glycol 3350 (MIRALAX) powder 17 g 17 g Enteral BID 17 g at 01/04/20 0929 sennosides-docusate sodium (SENOKOT-S) 8.6-50 mg per tablet 1 tablet 1 tablet Enteral BID 1 tablet at 01/04/20 0923 hydralAZINE (APRESOLINE) injection 10 mg 10 mg Slow IV Push Q6HPRN 10 mg at 01/02/20 1642 aspirin EC tablet 81 mg 81 mg Enteral DAILY 81 mg at 01/04/20 09 atorvastatin (LIPITOR) tablet 40 mg 40 mg Enteral QHS 40 mg at 01/03/202032 famotidine (PEPCID) 40 mg/5 mL (8 mg/mL) suspension 20 mg 20 mg Enteral BID 20 mg at heparin (porcine) injection 5,000 Units 5,000 Units Subcutaneous Q12H 5,000 Units at LABS No results found for this or any previous visit (from the past 24 hour(s)). STROKE LABS HGB A1C (%) Date Value 12/24/2019 5.2 LDL CHOL (mg/dL) Date Value 12/24/2019 109 CHOL (mg/dL) Date Value 12/24/2019 211 (H) TSH (mIU/L) Date Value 12/24/2019 2.06 Recent Labs 12/24/19 1241 12/26/19 0405 TROPNI 0.017 0.013 RADIOLOGY Mod Barium Swallow, (cookie) Result Date: 01/04/2020 1. Episodes of both laryngeal penetration and aspiration observed. 2. Please see separate Speech Pathology report for recommendations and additional findings. Preliminary Report Dictated by Resident:Ángela Foreman MD., have reviewed this study and agree with the above report. ASSESSMENT AND PLAN Funmilayo Mcmillan is a 59 year old female with PMHx of the following stroke risk factors: HTN, CAD s/p PCI, drug abuse, bipolar, PAD, who presented withright side weakness, global aphasia, confusion.LSN:>24hr, NIHSS21. CT headacute-subacute infact of L MCA, CTA head and neckshowed co mplete occlusion of L cervical ICA and 50% narrowing of right proximal cervical ICA. Mild focal narrowing of mid basilar artery, some collateral flow over distal MCA.Case discussed with dr Beach and agreed no need for intervention as patient has good collaterals and passed window of intervention.MRI brain showed left MCA territory with no evidence of hemorrhagic transformation. Patient continued to be encephalopathic, cEEG showed no seizures. Unchanged exam Subacute-acute ischemic stroke of L MCA, mid M1 occlusion Right gaze, concern for seizure resolved Complete occlusion of L ICA Hx of cocaine abuse (UDS +ve cocaine) - Neurochecks - Telemetry - SBP : 120-160 - c/w Keppra 750 mg BID - c/w aspirin, plavix 75 mg daily - Atorvastatin 40 mg QHS - Risperidal 0.5 mg BID - consult palliative care - pending discharge home CAD s/p PCI HTN Multiple PVC HFrEF ( EF 40-45%) COPD Increased secretions Concern for aspiration pneumonia - adjust BP meds accordingly - Duonebs QID and mucomyst Q6H - Scopolamine patch for increased secretions. Dysphagia s/p PEG tube placement - c/w bolus feeds - speech onboard - GI Prophylaxis: famotidine - DVT Prophylaxis: heparin - Code status: FULL The case was discussed and seen with Dr. King, Neurology Faculty. Stroke pager: [phone] Pedro Pablo Newsome MD Neurology, PGY-2 Pager # [phone] HOSPITAL COURSE: Funmilayo Mcmillan is a 59 year old unknown handednesscaucasian female with PMHX of bipolar, depression, HTN, CAD s/p PCI, , PAD, stroke?, TB, drug abuse (crack)who presented with CC of AMS, right side weakness, aphasia. LSN : unknown, At OSH ER, BP 167/104, HR 67, afebrile, RR20, UDS +ve cocaine and HTC, UA negative, TSH wnl, LFT wnl, bmp wnl, cbc mildly elevated wbc of 12.3, trop negative. CTH showed acute-subacute L MCA infact, transferred to [facility]. CT angiogram head and neck showed complete occlusion of left cervical ICA from just distal to the bulb through the supraclinoid segment at the level of the ophthalmic artery, mild to moderate narrowing of basilar artery. Required cardene for BP managament later weaned off. Developed right gaze preference on 12/24 loaded with Keppra and started on maintenance Keppra. CEEG showed no electrographic seizures or epileptiform discharges. MRI Brain demonstrated large infarct in left MCA territory without hemorrhagic transformation. TTE showed EF 40-45% with wall motion abnormalities. Cardiology consulted for reduced EF.Repeat focused echo withworsened EF (30-35%) and anterolateral/apical hypokinesis.Plan for PEG tube placement, plavix held.Transferred to floor 12/27 afternoon, no acute events overnight. However, on 12/28 continued to have copious secretions requiring frequent suctioning. MD notified at 11:54 AM and transferred back to ICU for higher level of care. Patient started on scheduled nebulizers with improvement in respiratorystatus, deemed stable for transfer to floor. Associated attestation - Rudy King MD - 01/04/2020 5:05 PM CDT Vascular Neurology attending attestation/addendum: Patient was seen and examined by me with the stroke team during the rounds. I actively participated in evaluation, management and developing the plan of care for this patient. History and ROS grossly obtained from the chart review, discussed with patient at bedside. Please refer to neurology resident's note for details with additions/exceptions as below. 59 years old woman with multiple vascular risk factors including age, HTN, CAD s/p PCIs, PAD and substance abuse is evaluated at [facility] for right hemiplegia, right HH global aphasia and partial right gaze palsy due to left MCA distribution stroke in this patient with left proximal/cervical ICA occlusion with on current tandem left MCA mid-M1 occlusion - likely mechanism being large vessel disease i.e. Left cervical/proximal ICA steno-occlusive disease with tandem left MCA occlusion and subsequent local thrombosis. TTE remarkable for low LVEF, 30-35% with regional wall motion abnormalities without anyevidence of LV thrombus nor showed any interatrial shunt. Patient with continued right hemiplegia and global aphasia. Plan: Agree to continue with short duration dual antiplatelet therapy for 3 weeks for aggressive secondary stroke prevention followed by aspirin. Atorvastatin 80 mg at bedtime, LDL 109. HbA1c 5.2, continue with aggressive vascular risk factors modification. Evaluation and management of low LVEF/CAD workup as per cardiology team. Continue telemetry. Plan for prolonged cardiac monitoring with 30 days event monitor as outpatient. PT/OT/speech and swallow evaluation. Awaiting palliativecare consultation to aid in determining the long-term goals of care. Awaiting DMEs to be delivered to optimize discharge disposition. Family training completed. More than 38 minutes were spent in evaluation and management of this patient, more than 50% of the time was spent in counseling and coordinating care for this patient. Griselda Hicks LCSW - 01/03/2020 4:33 PM CDTPalliative Care SW Note 01/03/2020 Per Palliative Care Consult, ROB consulted with CM on patient. Griselda Hicks LCSW Palliative Care Roll Coverer (this # is NOT for patient use) Off [phone] signed by Griselda Hicks LCSW at 01/04/2020 9:24 AM Adrienne Garcia SW - 01/03/2020 1:08 PM CDTSocial Work note: ROB faxed completed/signed Medicaid Title XIX form to [facility] [id number] [facility] [address], [place] [phone] fax , DME pending insurance auth (may take 48-72hrs). DaughterAyah informed and plans to vst with patient today and for add't caregiver training Home health to be ordered for SN, PT, OT, home health aide to order discharge Rx via meds to bed Ambulance to be scheduled To follow [facility] [phone] [address] [place] [address] Care Mgmt Dept Pedro Pablo Newsome MBBS - 01/03/2020 12:49 PM CDT STROKE PROGRESS NOTE DATE OF SERVICE: 01/03/2020 12:49 Day of Hospitalization: 10 CHIEF COMPLAINT: aphasia and right sided weakness 24-HOUR EVENTS: NAEON SUBJECTIVE: Patient awake open eyes to name STROKE DOCUMENTATION NIH STROKE SCALE LOC: 1 Not Alert: Arousable With Minor Stimulation to Obey, Answer or Respond LOC QUESTIONS: 2 Answers Neither Question Correctly LOC COMMANDS: 2 Performs Neither Task Correctly BEST GAZE: 1 Partial Gaze Palsy VISUAL: 0 No Visual Loss FACIAL PALSY: 2 Partial Paralysis MOTOR ARM-LEFT: 2 Some Effort Against [place] MOTOR ARM-RIGHT: 4 No Movement MOTOR LEG-LEFT: 1 Drift MOTOR LEG-RIGHT: 3 No Effort Against [place] LIMB ATAXIA: 0 Absent SENSORY: 0 Normal BEST LANGUAGE: 3 Mute, Global Aphasia DYSARTHRIA: UN Intubated or Other Physical Barrier, Explain EXTINCTION AND INATTENTION (FORMERLY NEGLECT): 0 No Abnormalty STROKE SCALE INTERVAL: Day 4 STROKE SCALE TOTAL SCORE: 21 OBJECTIVE: PHYSICAL EXAM Vitals: 01/03/20 0435 01/03/20 0728 01/03/20 0900 01/03/20 1202 BP: 130/81 (!) 160/82 116/74 (!) 152/81 Pulse: 70 62 70 Resp: 18 16 16 17 Temp: 36.8 C (98.2 F) 36.4 C (97.5 F) 36.8 C (98.3 F) TempSrc: Oral Oral Oral SpO2: 98% 98% 95% Weight: Height: General: Patient is awake, opens eyes to her name unable to follow commands Mental Status: Consciousness, attention, concentration:impaired. Speech/ Language:impairedto comprehension, fluency, repetition and naming. Global aphasia Fund of knowledge:APPLE Remote and recent memory:APPLE Cranial Nerves: I. Not tested. II.Leftgaze preference improved, unable to track to command but looking around in all directions III. IV., .Unable to track fingers, moves eyes spontaneously in all directions, prefers left gaze V.APPLE VII.RightUMNfacial droop VIII.APPLE IX., X. XI. XII.APPLE Motor: Tone:right side flaccid Bulk:decreased LUE : 4/5 LLE : 4/5 right upper extremity to painful stimuli : 1/5 RLE : to pain 1-2/5 DTR's: Right Left Biceps 2+ 2+ Triceps 2+ 2+ Brachioradialis 2+ 2+ Patella 2+ 2+ Achilles 1+ 1+ Pathologic reflexes and signs: Babinski:present on right side Cerebellar: Nystagmus: neg, FTN,HTS:APPLE, Tremors: neg Sensory: Withdraws to pain in all extremities right > left Gait:APPLE Lungs: Wheezing heard Cardio: S1, S2 normal Extremities:no cyanosis,clubbing or edema Neck:supple,no carotid bruit,no JVD Abdomen: soft; non-tender; non-distended; normoactive bowel sounds heard MEDICATIONS Current Facility-Administered Medications Medication Dose Route Frequency Last Rate Last Dose barium sulfate-NO CHARGE- (VARIBAR PUDDING) 40 % (w/v), 30% (w/w) oral paste 20 mL 20 mL Oral ONCE lisinopriL (PRINIVIL,ZESTRIL) tablet 20 mg 20 mg Enteral BID 20 mg at 01/03/20 0919 amLODIPine (NORVASC) tablet 10 mg 10 mg Enteral DAILY 10 mg at 01/03/20 0920 clopidogreL (PLAVIX) tablet 75 mg 75 mg Enteral DAILY 75 mg at 01/03/20 0919 risperiDONE (RISPERDAL) tablet 0.5 mg 0.5 mg Enteral BID 0.5 mg at 01/03/20 0920 acetylcysteine (MUCOMYST) 200 mg/mL (20 %) solution 200 mg 1 mL Inhalation Q6H 200 mg at 01/03/20 1217 chlorhexidine (PERIDEX) 0.12 % mouthwash 15 mL 15 mL Oral (Swish And Spit Out) Q6H 15 mL at 12/31/19 1800 ipratropium-albuteroL (DUONEB) 0.5 mg-3 mg(2.5 mg base)/3 mL nebulizer solution 3 mL 3 mL Inhalation Q6H ABX 3 mL at 01/03/20 1217 Saline Bubble Study 6 mL Injection SEE-INSTRUCTIONS 6 mL at 12/29/19 1500 Saline Bubble Study 6 mL Injection SEE-INSTRUCTIONS 6 mL at 12/29/19 1500 levETIRAcetam (KEPPRA) 100 mg/mL oral solution 750 mg 750 mg Enteral BID 750 mg at 01/03/20 0920 scopolamine transdermal (TRANSDERM-SCOP) patch 1.5 mg 1.5 mg Topical Q72H 1.5 mg at 01/03/20 1000 Polyethylene Glycol 3350 (MIRALAX) powder 17 g 17 g Enteral BID Stopped at 01/02/20 193 sennosides-docusate sodium (SENOKOT-S) 8.6-50 mg per tablet 1 tablet 1 tablet Enteral BID 1 tablet at 01/03/20 0920 hydralAZINE (APRESOLINE) injection 10 mg 10 mg Slow IV Push Q6HPRN 10 mg at 01/02/20 1642 aspirin EC tablet 81 mg 81 mg Enteral DAILY 81 mg at 01/03/20 0920 atorvastatin (LIPITOR) tablet 40 mg 40 mg Enteral QHS 40 mg at 01/02/20 193 famotidine (PEPCID) 40 mg/5 mL (8 mg/mL) suspension 20 mg 20 mg Enteral BID 20 mg at heparin (porcine) injection 5,000 Units 5,000 Units Subcutaneous Q12H 5,000 Units at LABS No results found for this or any previous visit (from the past 24 hour(s)). STROKE LABS HGB A1C (%) Date Value 12/24/2019 5.2 LDL CHOL (mg/dL) Date Value 12/24/2019 109 CHOL (mg/dL) Date Value 12/24/2019 211 (H) TSH (mIU/L) Date Value 12/24/2019 2.06 Recent Labs 12/24/19 1241 12/26/19 0405 TROPNI 0.017 0.013 RADIOLOGY No final results containing an impression from the past 48 hours were found. ASSESSMENT AND PLAN Funmilayo Mcmillan is a 59 year old female with PMHx of the following stroke risk factors: HTN, CAD s/p PCI, drug abuse, bipolar, PAD, who presented withright side weakness, global aphasia, confusion.LSN:>24hr, NIHSS21. CT headacute-subacute infact of L MCA, CTA head and ne[place]ed co mplete occlusion of L cervical ICA and 50% narrowing of right proximal cervical ICA. Mild focal narrowing of mid basilar artery, some collateral flow over distal MCA.Case discussed with dr Beach and agreed no need for intervention as patient has good collaterals and passed window of intervention.MRI brain showed left MCA territory with no evidence of hemorrhagic transformation. Patient continued to be encephalopathic, cEEG showed no seizures. Subacute-acute ischemic stroke of L MCA, mid M1 occlusion Right gaze, concern for seizure resolved Complete occlusion of L ICA Hx of stroke? Toxic metabolic encephalopathy 2/2 medications improving Hx of cocaine abuse (UDS +ve cocaine) - Neurochecks - Telemetry - SBP : 120-160 - c/w Keppra 750 mg BID - c/w aspirin, plavix 75 mg daily - Atorvastatin 40 mg QHS - Risperidal 0.5 mg BID - family education - will talk to family about goals of care and consult palliative care CAD s/p PCI HTN Multiple PVC HFrEF ( EF 40-45%) COPD Increased secretions Concern for aspiration pneumonia - adjust BP meds accordingly - Duonebs QID and mucomyst Q6H - Scopolamine patch for increased secretions. Dysphagia s/p PEG tube placement - switched to bolus feeds - pending MBS today - GI Prophylaxis: famotidine - DVT Prophylaxis: heparin - Code status: FULL The case was discussed and seen with Dr. King, Neurology Faculty. Stroke pager: [phone] Pedro Pablo Newsmoe MD Neurology, PGY-2 Pager # [phone] HOSPITAL COURSE: Funmilayo Mcmillan is a 59 year old unknown handednesscaucasian female with PMHX of bipolar, depression, HTN, CAD s/p PCI, , PAD, stroke?, TB, drug abuse (crack)who presented with CC of AMS, right side weakness, aphasia. LSN : unknown, At OSH ER, BP 167/104, HR 67, afebrile, RR20, UDS +ve cocaine and HTC, UA negative, TSH wnl, LFT wnl, bmp wnl, cbc mildly elevated wbc of 12.3, trop negative. CTH showed acute-subacute L MCA infact, transferred to [facility]. CT angiogram head and neck showed complete occlusion of left cervical ICA from just distal to the bulb through the supraclinoid segment at the level of the ophthalmic artery, mild to moderate narrowing of basilar artery. Required cardene for BP managament later weaned off. Developed right gaze preference on 12/24 loaded with Keppra and started on maintenance Keppra. CEEG showed no electrographic seizures or epileptiform discharges. MRI Brain demonstrated large infarct in left MCA territory without hemorrhagic transformation. TTE showed EF 40-45% with wall motion abnormalities. Cardiology consulted for reduced EF.Repeat focused echo withworsened EF (30-35%) and anterolateral/apical hypokinesis.Plan for PEG tube placement, plavix held.Transferred to floor 12/27 afternoon, no acute events overnight. However, on 12/28 continued to have copious secretions requiring frequent suctioning. MD notified at 11:54 AM and transferred back to ICU for higher level of care. Patient started on scheduled nebulizers with improvement in respiratorystatus, deemed stable for transfer to floor. Associated attestation - Rudy King MD - 01/03/2020 3:57 PM CDT Vascular Neurology attending attestation/addendum: Patient was seen and examined by me with the stroke team during the rounds. I actively participated in evaluation, management and developing the plan of care for this patient. History and ROS grossly obtained from the chart review, discussed with patient at bedside. Please refer to neurology resident's note for details with additions/exceptions as below. 59 years old woman with multiple vascular risk factors including age, HTN, CAD s/p PCIs, PAD and substance abuse is evaluated at [facility] for right hemiplegia, right HH global aphasia and partial right gaze palsy due to left MCA distribution stroke in this patient with left proximal/cervical ICA occlusion with on current tandem left MCA mid-M1 occlusion - likely mechanism being large vessel disease i.e. Left cervical/proximal ICA steno-occlusive disease with tandem left MCA occlusion and subsequent local thrombosis. TTE remarkable for low LVEF, 30-35% with regional wall motion abnormalities without anyevidence of LV thrombus nor showed any interatrial shunt. Plan: Agree to continue with short duration dual antiplatelet therapy for 3 weeks for aggressive secondary stroke prevention followed by aspirin. Atorvastatin 80 mg at bedtime, LDL 109. HbA1c 5.2, continue with aggressive vascular risk factors modification. Evaluation and management of low LVEF/CAD workup as per cardiology team. Continue telemetry. Plan for prolonged cardiac monitoring with 30 days event monitor as outpatient. PT/OT/speech and swallow evaluation. MBS today to consider advancing diet as tolerated. Palliative care consultationto aid in determining the long-term goals of care. More than 36 minutes were spent in evaluation and management of this patient, more than 50% of the time was spent in counseling and coordinating care for this patient. Mickie Nuno, WEB CONTENT EXECUTIVE - 01/03/2020 10:08 AM CDT Modified Barium Swallow Speech-Language Pathology Services Funmilayo Mcmillan : 1960 Age: [age] year old Sex: female SARAH: 01/03/2020 Time In/Out: 2035-3116 Referring Physician: Jarett Date of Referral: 01/02/20 Medical Diagnosis: oropharyngeal dysphagia; CVA Reason for Referral: r/o aspiration; objectively evaluate the oropharyngeal swallow with imaging SUBJECTIVE: Patient arriving via stretcher to radiology, awake and alert with ability to follow 1-2simple commands. OBJECTIVE: Funmilayo Mcmillan was seen for modified barium swallow study (MBS). Patient is a 59 year old female admitted for AMS, aphasia and R sided weaknesswith PMH significant for HTN, CAD s/p PCI, drug abuse(hx of cocaine abuse), bipolar, PAD. NIHSS 21.MRI Brain demonstrated large infarct in left MCA territory without hemorrhagic transformation. PEG placed on 12/29. Pertinent Imaging: Xr Chest 1 Vw Result Date: 12/30/2019 New faint left lower lung opacity may represent developing infectious etiology. Preliminary Report Dictated by Resident: Wai Amin I, Isaiah Valentine MD., have reviewed this study and agree with the above report. Ct Head Wo Contrast Result Date: 12/24/2019 Acute-subacute infarct in the left MCA territory with an ASPECTS score of around 3. No evidence of hemorrhagic transformation These findings were discussed with Dr. Mclean at the time of report dictation Ct Angiogram Neck Result Date: 12/24/2019 Complete occlusion of the left cervical ICA from just distal to the bulb through the supraclinoid segment at the level of the ophthalmic artery. Short segment opacification of the left M1 segment is noted before an abrupt cut off within the mid M1 segment. There is some vascularity noted within the distal MCA candelabra likely related to collateral flow over the convexity. Short segment moderate narrowing of the right proximal cervical ICA (up to 50%) Mild to moderate focal narrowing of the mid basilar artery Mr Brain Wo Contrast Result Date: 12/26/2019 Motion degraded exam. Large subacute infarct in the left MCA territory with no gross evidence of hemorrhage transformation. Findings were communicated and acknowledged by GILA Prasad at 12:51 PM on 12/26/2019. Preliminary Report Dictated by Resident: Clark Romeo I, Henri Jackson MD., have reviewed this study and agree with the above report. Ir G-tube Placement Percutaneous Result Date: 01/02/2020 Successful placement of a 16 [place] gastrostomy catheter with absorbable gastropexy. I, as teaching physician, was present during the entire procedure and/or during the oleary components. Preliminary Report Dictated by Resident: Renan Marcial I, Issa Verma MD., have reviewed this study and agree with the above report. Previous WEB CONTENT EXECUTIVE Services/Swallow History: Seen by WEB CONTENT EXECUTIVE services during this hospital admission, initial evaluation 12/26/19. Recommended NPO with FACUNDO. PEG tube placed 12/30/19. Speech-Language evaluation 12/28/19 revealing profound mixed expressive-receptive language deficits consistent with global aphasia; impairments in all language modalities and is completely nonverbal. Past Medical History: Diagnosis Date CAD (coronary artery disease) 08/2013 s/p PCI (SAEID) to proximal LAD, 50% mid focal occlusion of LCx Depression HTN (hypertension) PAD (peripheral artery disease) 05/10/2015 Stroke Tuberculosis was treated for 6 months, was in longterm. No past surgical history on file. General Behavior: Alert, Impulsive and Decreased ability to follow directions Hearing: Within Functional Limits for speech Oral Mechanism: Structure/Function: difficult assessing d/t reduced ability to follow commands; right facial and labial droop; dry oral cavity; ?dentate; poor oral hygiene Respiratory Status: room air Orientation/Cognition: - Patient oriented to: person - Response type: N/A - If verbal, describe speech: N/A - Follows 1-step commands: No EVALUATION: Patient presented with barium in thin liquids, nectar-thick liquids, puree and chewable solid consistencies viewed under fluoroscopy in the lateral plane with Dr. Any Torres from radiology. COMPONENTS AND SCORES ORAL IMPAIRMENT Component 1-Lip Closure: 4= Escape beyond mid-chin Component 2-Tongue Control During Bolus Hold: 2= Posterior escape of less than half of bolus Component 3-Bolus Preparation/Mastication: 3= Minimal chewing/mashing with majority of bolus Component 4-Bolus Transport/Lingual Motion: 3= Repetitive/disorganized tongue motion and 4= Minimalto no tongue motion; would intermittently tilt head back to aid AP transit motion Component 5-Oral Residue: 2= Residue collection on oral structures Component 6-Initiation of Pharyngeal Swallow: 3= Bolus head in pyriforms PHARYNGEAL IMPAIRMENT Component 7-Soft Palate Elevation: 1= Trace column of contrast or air between SP and PW Component 8-Laryngeal Elevation: 1= Partial superior movement of thyroid cartilage/partial approximation of arytenoids to epiglottic petiole Component 9-Anterior Hyoid Excursion: 1= Partial anterior movement Component 10-Epiglottic Movement: 1= Partial inversion Component 11-Laryngeal Vestibular Closure-Height Swallow: 1= Incomplete; narrow column air/contrast in laryngeal vestibule Component 12-Pharyngeal Stripping Wave: 1= Present - diminished Component 13-Pharyngeal Contraction (A/P view only): NA Component 14-Pharyngoesophageal Segment Openin= Partial distension/partial duration;partial obstruction of flow Component 15-Tongue Base (TB) Retraction: 3= Wide column of contrast or air between TB and PW Component 16-Pharyngeal Residue: 1= Trace residue within or on pharyngeal structures ESOPHAGEAL IMPAIRMENT Component 17-Esophageal Clearance Upright Position: 1= Esophageal retention FACILITATIVE TECHNIQUES ATTEMPTED: bolus modification and mode of presentation Images/loops available for review in PACS. Patient/Family Education: Provided verbally. Patient/Family Goal: safe po intake, to talk and to go home Penetration/Aspiration Scale Legend: 1-material does not enter airway 2-enters the airway, remains above vocal folds and is ejected 3-enters the airway, remains above vocal cords and is not ejected 4-enters the airway, contacts the vocal folds and is ejected 5-enters the airway, contacts the vocal folds and is not ejected 6-enters the airway, passes below the vocal folds and is ejected into the larynx or out of the airway 7-enters the airway, passes below the vocal folds and is not ejected from the trachea despite effort 8-enters the airway, passes below the vocal folds and no effort is made to eject ASSESSMENT: Funmilayo Mcmillan presents with severe oral and moderate pharyngeal dysphagia as a result of L CVA with marked impairments in oral bolus control/efficiency and airway protection. Of note, patient s/p PEG placement 12/30/19. Patient with increased difficulty following commands (severe aphasia, likely Global) and is with significant motion artifact with head constantly moving during evaluation. Patient had reduced oral bolus control with inadequate/significantly impaired mastication/manipulation with minimal A-P oral transit while appearing to tilt head back to aid in lingual motion. Patient with silent aspiration of thin liquid via teaspoon 2/2 premature spillage into pharynx/delayed swallow init iation (PAS 8). Deep penetration during the swallow of thin liquids occurring via cup sip without ejection from vocal cords (PAS 5). With nectar-thick liquid, patient with deep penetration with trace aspiration during sequential swallows (PAS 5, 6). D/t oral deficits stated above, patient with deep penetration and flash aspiration of solid material prior to initiating a swallow (PAS 5, 6). Given these observations in conjunction with speech-language abilities (globally aphasic- unable to follow commands and is nonverbal), poor oral hygiene and physical mobility, patient is not functional and is with a high risk for aspiration/developing aspiration and/or malnutrition-related illnesses; she should continue use of long-term FACUNDO (G-tube recently placed). Pt would benefit from continued WEB CONTENT EXECUTIVE services while in-house and after discharge. Should patient discharge home, recommend 24/ supervision. Impressions: severe oral and moderate pharyngeal dysphagia; penetration and flash aspiration of nectar-thick liquids and chewable solid (PAS 5, 6); deep penetration and silent aspiration of thin liquids (PAS 5, 8) Prognosis appears poor for safe po intake and meeting nutrition/hydration needs by mouth due to above findings. PLAN: 1. Recommend patient remain NPO andcontinue with alternative means of nutrition/hydration (PEGinplace). 2. Recommend elevated head of bed and frequent, thorough oral hygiene care due to suspected high risk for aspiration. Once oral hygiene completed, recommend free water protocol (small amounts of ice chips only) PRN for QOL, despite aspiration risks (*oral hygiene/care must be completed prior to ice intake*) 3. Recommend WEB CONTENT EXECUTIVE therapy 2-5x/wk for 15-45 min/session to address the following goals: Swallowing: - Patient/family/staff will verbalize importance of and demonstrate compliance to strict oral hygiene care with mod cues: - Patient/family/staff will verbalize precautions for and demonstrate compliance with free water protocol with mod cues: - Patient will complete base of tongue, strap muscle, and airway protection exercises with minimal cues 80% of the time (may defer pending on ability to follow directions) - Patient will accept PO trials of varying consistencies using bolus-driven therapy with a trained swallow technique without overt concern for aspiration 80% of the time (initiation of task pending oral hygiene care) Verbal Expression/Auditory Comprehension: resume goals last addressed on 02/02/20 4. Discharge recommendation: continued WEB CONTENT EXECUTIVE therapy at d/c location (HH/OP speech consult if d/c home); 06/10 supervision/assist d/t safety concerns Mickie Nuno MA, CCC-WEB CONTENT EXECUTIVE Speech-Language Pathologist Office: [phone] Pager: [phone] / [phone] Pedro Pablo Choudhury MBBS - 01/02/2020 5:26 PM CDT STROKE PROGRESS NOTE DATE OF SERVICE: 01/02/2020 17:26 Day of Hospitalization: 9 CHIEF COMPLAINT: aphasia and right sided weakness 24-HOUR EVENTS: NAEON SUBJECTIVE: Patient opens eyes to name, not able to follow commands. STROKE DOCUMENTATION NIH STROKE SCALE LOC: 1 Not Alert: Arousable With Minor Stimulation to Obey, Answer or Respond LOC QUESTIONS: 2 Answers Neither Question Correctly LOC COMMANDS: 2 Performs Neither Task Correctly BEST GAZE: 1 Partial Gaze Palsy VISUAL: 0 No Visual Loss FACIAL PALSY: 2 Partial Paralysis MOTOR ARM-LEFT: 2 Some Effort Against [place] MOTOR ARM-RIGHT: 4 No Movement MOTOR LEG-LEFT: 1 Drift MOTOR LEG-RIGHT: 3 No Effort Against [place] LIMB ATAXIA: 0 Absent SENSORY: 0 Normal BEST LANGUAGE: 3 Mute, Global Aphasia DYSARTHRIA: UN Intubated or Other Physical Barrier, Explain EXTINCTION AND INATTENTION (FORMERLY NEGLECT): 0 No Abnormalty STROKE SCALE INTERVAL: Day 4 STROKE SCALE TOTAL SCORE: 21 OBJECTIVE: PHYSICAL EXAM Vitals: 01/02/20 1050 01/02/20 1100 01/02/20 1125 01/02/20 1626 BP: 137/76 (!) 162/79 BP Location: Left arm Left arm Patient Position: Supine Supine Pulse: 66 72 Resp: 18 18 18 Temp: 36.6 C (97.9 F) 36.7 C (98 F) TempSrc: Oral Oral SpO2: 96% 98% 99% 98% Weight: Height: General: Patient is awake, opens eyes to her name unable to follow commands Mental Status: Consciousness, attention, concentration:impaired. Speech/ Language:impairedto comprehension, fluency, repetition and naming. Global aphasia Fund of knowledge:APPLE Remote and recent memory:APPLE Cranial Nerves: I. Not tested. II.Leftgaze preference improved, unable to track to command but looking around in all directions III. IV., .Unable to track fingers, moves eyes spontaneously in all directions, prefers left gaze V.APPLE VII.RightUMNfacial droop VIII.APPLE IX., X. XI. XII.APPLE Motor: Tone:right side flaccid Bulk:decreased LUE : 4/5 LLE : 4/5 right upper extremity to painful stimuli : 1/5 RLE : to pain 1-2/5 DTR's: Right Left Biceps 2+ 2+ Triceps 2+ 2+ Brachioradialis 2+ 2+ Patella 2+ 2+ Achilles 1+ 1+ Pathologic reflexes and signs: Babinski:present on right side Cerebellar: Nystagmus: neg, FTN,HTS:APPLE, Tremors: neg Sensory: Withdraws to pain in all extremities right > left Gait:APPLE Lungs: Wheezing heard Cardio: S1, S2 normal Extremities:no cyanosis,clubbing or edema Neck:supple,no carotid bruit,no JVD Abdomen: soft; non-tender; non-distended; normoactive bowel sounds heard MEDICATIONS Current Facility-Administered Medications Medication Dose Route Frequency Last Rate Last Dose amLODIPine (NORVASC) tablet 10 mg 10 mg Enteral DAILY 10 mg at 01/02/20 0747 clopidogreL (PLAVIX) tablet 75 mg 75 mg Enteral DAILY 75 mg at 01/02/20 0747 risperiDONE (RISPERDAL) tablet 0.5 mg 0.5 mg Enteral BID 0.5 mg at 01/02/20 0747 acetylcysteine (MUCOMYST) 200 mg/mL (20 %) solution 200 mg 1 mL Inhalation Q6H 200 mg at 01/02/20 1050 chlorhexidine (PERIDEX) 0.12 % mouthwash 15 mL 15 mL Oral (Swish And Spit Out) Q6H 15 mL at 12/31/19 1800 ipratropium-albuteroL (DUONEB) 0.5 mg-3 mg(2.5 mg base)/3 mL nebulizer solution 3 mL 3 mL Inhalation Q6H ABX 3 mL at 01/02/20 1050 Saline Bubble Study 6 mL Injection SEE-INSTRUCTIONS 6 mL at 12/29/19 1500 Saline Bubble Study 6 mL Injection SEE-INSTRUCTIONS 6 mL at 12/29/19 1500 levETIRAcetam (KEPPRA) 100 mg/mL oral solution 750 mg 750 mg Enteral BID 750 mg at 01/02/20 0746 scopolamine transdermal (TRANSDERM-SCOP) patch 1.5 mg 1.5 mg Topical Q72H 1.5 mg at 12/31/19 1000 Polyethylene Glycol 3350 (MIRALAX) powder 17 g 17 g Enteral BID 17 g at 01/02/20 0747 sennosides-docusate sodium (SENOKOT-S) 8.6-50 mg per tablet 1 tablet 1 tablet Enteral BID 1 tablet at 01/02/20 0747 hydralAZINE (APRESOLINE) injection 10 mg 10 mg Slow IV Push Q6HPRN 10 mg at 01/02/20 1642 lisinopriL (PRINIVIL,ZESTRIL) tablet 10 mg 10 mg Enteral BID 10 mg at 01/02/20 0747 aspirin EC tablet 81 mg 81 mg Enteral DAILY 81 mg at 01/02/20 0747 atorvastatin (LIPITOR) tablet 40 mg 40 mg Enteral QHS 40 mg at 01/01/20 2116 famotidine (PEPCID) 40 mg/5 mL (8 mg/mL) suspension 20 mg 20 mg Enteral BID 20 mg at heparin (porcine) injection 5,000 Units 5,000 Units Subcutaneous Q12H 5,000 Units at 01/01/200747 LABS No results found for this or any previous visit (from the past 24 hour(s)). STROKE LABS HGB A1C (%) Date Value 12/24/2019 5.2 LDL CHOL (mg/dL) Date Value 12/24/2019 109 CHOL (mg/dL) Date Value 12/24/2019 211 (H) TSH (mIU/L) Date Value 12/24/2019 2.06 Recent Labs 12/24/19 1241 12/26/19 0405 TROPNI 0.017 0.013 RADIOLOGY No final results containing an impression from the past 48 hours were found. ASSESSMENT AND PLAN Funmilayo Mcmillan is a 59 year old female with PMHx of the following stroke risk factors: HTN, CAD s/p PCI, drug abuse, bipolar, PAD, who presented withright side weakness, global aphasia, confusion.LSN:>24hr, NIHSS21. CT headacute-subacute infact of L MCA, CTA head and neckshowed co mplete occlusion of L cervical ICA and 50% narrowing of right proximal cervical ICA. Mild focal narrowing of mid basilar artery, some collateral flow over distal MCA.Case discussed with dr Beach and agreed no need for intervention as patient has good collaterals and passed window of intervention.MRI brain showed left MCA territory with no evidence of hemorrhagic transformation. Patient continued to be encephalopathic, cEEG showed no seizures. Subacute-acute ischemic stroke of L MCA, mid M1 occlusion Right gaze, concern for seizure resolved Complete occlusion of L ICA Hx of stroke? Toxic metabolic encephalopathy 2/2 medications improving Hx of cocaine abuse (UDS +ve cocaine) - Evaluation by PT/OT for placement. - Neurochecks - Telemetry - SBP : 120-160 - c/w Keppra 750 mg BID - c/w aspirin, plavix 75 mg daily - Atorvastatin 40 mg QHS - Risperidal 0.5 mg BID - family education CAD s/p PCI HTN Multiple PVC HFrEF ( EF 40-45%) COPD Increased secretions Concern for aspiration pneumonia - c/w lisinopril 10 mg BID, amlodipine 10 mg daily - Cardiology consulted, Plan for ischemic workup after stable from neurological standpoint - Duonebs QID and mucomyst Q6H - Scopolamine patch for increased secretions. - C/w zosyn day 3 today can discontinue after 72 hrs if no fevers Dysphagia s/p PEG tube placement - switched to bolus feeds - GI Prophylaxis: famotidine - DVT Prophylaxis: heparin - Code status: FULL The case was discussed and seen with Dr. King, Neurology Faculty. Stroke pager: [phone] Pedro Pablo Newsome MD Neurology, PGY-2 Pager # [phone] HOSPITAL COURSE: Funmilayo Mcmillan is a 59 year old unknown handednesscaucasian female with PMHX of bipolar, depression, HTN, CAD s/p PCI, , PAD, stroke?, TB, drug abuse (crack)who presented with CC of AMS, right side weakness, aphasia. LSN : unknown, At OSH ER, BP 167/104, HR 67, afebrile, RR20, UDS +ve cocaine and HTC, UA negative, TSH wnl, LFT wnl, bmp wnl, cbc mildly elevated wbc of 12.3, trop negative. CTH showed acute-subacute L MCA infact, transferred to [facility]. CT angiogram head and neck showed complete occlusion of left cervical ICA from just distal to the bulb through the supraclinoid segment at the level of the ophthalmic artery, mild to moderate narrowing of basilar artery. Required cardene for BP managament later weaned off. Developed right gaze preference on 12/24 loaded with Keppra and started on maintenance Keppra. CEEG showed no electrographic seizures or epileptiform discharges. MRI Brain demonstrated large infarct in left MCA territory without hemorrhagic transformation. TTE showed EF 40-45% with wall motion abnormalities. Cardiology consulted for reduced EF.Repeat focused echo withworsened EF (30-35%) and anterolateral/apical hypokinesis.Plan for PEG tube placement, plavix held.Transferred to floor 12/27 afternoon, no acute events overnight. However, on 12/28 continued to have copious secretions requiring frequent suctioning. MD notified at 11:54 AM and transferred back to ICU for higher level of care. Patient started on scheduled nebulizers with improvement in respiratorystatus, deemed stable for transfer to floor. Associated attestation - Rudy King MD - 01/02/2020 6:41 PM CDT Vascular Neurology attending attestation/addendum: Patient was seen and examined by me with the stroke team during the rounds. I actively participated in evaluation, management and developing the plan of care for this patient. History and ROS grossly obtained from the chart review, discussed with patient at bedside. Please refer to neurology resident's note for details with additions/exceptions as below. 59 years old woman with multiple vascular risk factors including age, HTN, CAD s/p PCIs, PAD and substance abuse is evaluated at [facility] for right hemiplegia, right HH global aphasia and partial right gaze palsy due to left MCA distribution stroke in this patient with left proximal/cervical ICA occlusion with on current tandem left MCA mid-M1 occlusion - likely mechanism being large vessel disease i.e. Left cervical/proximal ICA steno-occlusive disease with tandem left MCA occlusion and subsequent local thrombosis. TTE remarkable for low LVEF, 30-35% with regional wall motion abnormalities without anyevidence of LV thrombus nor showed any interatrial shunt. Plan: Agree to continue with short duration dual antiplatelet therapy for 3 weeks for aggressive secondary stroke prevention followed by aspirin. Atorvastatin 80 mg at bedtime, LDL 109. HbA1c 5.2, continue with aggressive vascular risk factors modification. Evaluation and management of low LVEF/CAD workup as per cardiology team. Continue telemetry. Plan for prolonged cardiac monitoring with 30 days event monitor as outpatient. PT/OT/speech and swallow evaluation. Above mentioned plan was discussed with patient. More than 36 minutes were spent in evaluation and management of this patient, more than 50% of the time was spent in counseling and coordinating care for this patient. David Junior PT - 01/02/2020 4:46 PM CDT1 4:46 PM Physical therapy note: Patient status discussed with Roberta Brito PTA. Updating DME recommendations: Updated discharge recommendations: Hospital bed with air loss mattress, betzy lift, reclining wheelchair with seat belt and elevating leg rest , ROHO cushion. Please see progress notes for functional mobility David Gorman. EARNESTINE Junior, DPT Pager Number: [phone] Abdifatah Simpson RN - 01/02/2020 4:10 PM CDTCare Management Note: CM updated DME order with PT recent recs. DME order faxed to [address] [place]. [address] Phone: [phone] . REY/ROB will follow upwith referral Julian Damon Jr., RN, BSN. Boy'S Adviser [phone] [email or web address] Adrienne Garcia SW - 01/02/2020 3:50 PM CDTSocial Work note: ROB briefly met with daughter, Ayah Scanlon [phone] to provide support and praise informing her howimpressed PT & OT were with daughter and caregiver edu this afternoon. Daughter expressed appreciation. CC/SW making arrangements for patient to discharge to daughter's home at: [address] [place] [address] DME order pending insurance approval for hospital bed, low air loss mattress, BSC, reclining WC withhigh back, mechanical lift, and TFs for PEG. Attending notified to sign Medicaid Title XIX form Home health to be ordered for SN, PT, OT, home health aide SW/CC inquiring with MDs re: meds to bed Ambulance to be scheduled To follow Tatiana Ortiz, [facility] [phone] [address] [place] [address] Care Mgmt Dept Roberta Brito PTA - 01/02/2020 3:39 PM CDT Physical Therapy Progress Note: Discharge Recommendations: Therapy Needs and Potential: Patient would benefit from continued physical therapy services to address:decline in bed mobility decline in transfers decline in gait and/or balance decreased strength Patient exhibits limited ability to follow commands. Challenges to Home Transition: increased risk of falls decreased safety awareness Patient will need significant physical assistance for bed mobility and transfers Equipment recommendations: Hospital bed, low air loss mattress, betzy lift, reclining wheelchair PAIN: unable to verbalize, does not appear in distress PRECAUTIONS: Weight Bearing Precaution: WBAT General Precautions: PPE used:Gloves and Surgical mask, Fall, Rogers catheter, PEG tube, IV x 1 Bracing/Cast present or required:N/A S: Patient agreeable to working with PT. Pt's daughter and friend present for family training. O: Patient met Semi reclined in bed, SCD sleeves on and machine turned on, heels off loaded using prevalon boot (RLE). Patient seen for the following: Bed mobility: Rolling: Min A to R side, Max A to L side Bridging: SBA/Setup Reclined to sitting: Maximal assist Sitting balance Poor+ Scooting to edge of bed: Maximal assist Sit to supine: Maximal assist Repositioned patient to head of bed: Dependent, x 2 analyzed pt with R lat trunk lean and LUE push, forward flexed trunk, head down and writhing movements educated daughter on hand placement when performing bed mobility incorporated daughter and friends assistance Patient tolerating sitting on EOB x ~10 min Transfers: educated family on betzy lift use and to ask company for demonstration at drop off Therapeutic exercise: patient educated in Adaptive equipment , Compensatory techniques/adaptive strategies, Energy conservation, Fall prevention, General strengthening, Gross motor coordination of LEs, Joint protection, Positioning, Relaxation/breathing techniques and Safety awareness., instructed patient in the following: ankle pumps, heel slides, hip abduction/adduction, hip internal/external rotation, straight leg raises educated family on hand placement and to encourage pt to assist as much as possible Provided hand out of HEP After session, patient Semi reclined in bed, SCD sleeves on and machine turned on, heels off loaded using prevalon boot(RLE), Bed alarm on and call gonzalez provided. A: Patient tolerated session well. Pt present with improved participation with family present however continues to require significant physical assistance and cueing. P: PT will - progress functional mobility, strength and endurance. Total Timed Tx Codes in Minutes: 41 Min Total Treatment Time in Minutes: 41 Min Roberta Brito PTA Pager # [phone] Supervising PT David Junior Camilo Schwab, OT - 01/02/2020 3:26 PM CDTOCCUPATIONAL THERAPY NOTE: Discharge Recommendations: Therapy Needs and Potential:- Patient would benefit from continued skilled occupational therapy services to address:Decline in basic activities of daily living, Decline in instrumental activities of daily living, Decline in cognition, Decreased strength, Decreased range of motion, Decreased endurance, Decreased coordination and Caregiver training - Patient exhibits limited activity tolerance. - Patient able to follow commands: 1-stepNo, Multi-stepNo, InconsistenciesNo Challenges to Home Transition:- Requires physical assistance for BADLS - Requires physical assistance for IADLS - Requires supervision or verbal cues for BADLS - Requires supervision or verbal cues for IADLS - No caregiver support - Decreased safety awareness/judgement - Increased risk of falls Equipment Recommendations: discharge home today would recommendHospital bed, Low air loss mattressand Mechanical lift Precautions: WB: NA General: PPE Utilized: Gloves and Surgical mask, Fall, Feeding tube and HOB at 30 degrees Bracing: N/A S: Family agreeable for patient to participate in occupational therapy. PAIN Pre-treatment: 0/10 pain. Post-treatment: 0/10 pain. O: Patient found semireclining in bed. Daughter present, Visitor present, Nursing present and Vital signs stable . Patient seen this date for the following: ADL Training UB Dressing: Moderate assist LB Dressing: Maximal assist Toileting Hygiene: Maximal assist. of 2 for cleanup and brief change Patient educated about the following adaptive equipment: hospital bed , Mechanical lift. Handout issued, No. Patient educated about fall prevention and safety awareness. Handout issued, No. - educated family on ADL's and equipment use at home Patient left in semichair position in bed with call gonzalez in reach. Daughter present, Visitor present, Nursing present, Vital signs stable and Bed alarm engaged, nursing staff notified. . A: Patient exhibited Good participation in therapy and responded well to treatment this session. Patient is progressing toward goal(s) 3, 4 and 5. Poor endurance and Persistent weakness remain(s) a limiting factor. Patient continues to present with Decreased independence with ADL, Impaired postural co ntrol, Decreased strength/endurance for functional activity, Impaired safety awareness and Impaired Cognition and will benefit from continued OT services to address above areas and improve functional status. P: Patient/Caregivier Education, Equipment recommendations, Daily living activities, Therapeutic exercises, Neuromuscular Re-Education and Cognitive retraining Juan Ramon FROST/Zeke Pager [phone] Supervising OTR Cristina Marinelli Total Timed Treatment Codes: 43 Min Total Treatment Time: 43 Min Abdifatah Simpson RN - 01/02/2020 12:04 PM CDTCare Management Note: REY faxed DME for for [employer]ev[employer] Feeding and peg tube supplies to [address] [place]. [address] Phone: [phone] . REY/ROB will follow upwith completion of Title 19 and referral. Julian Damon Jr., RN, BSN. Boy'S Adviser [phone] [email or web address] Keshia Urbano, WEB CONTENT EXECUTIVE - 01/02/2020 11:57 AM [facility] L[facility] PATHOLOGY Daily Progress Note - 01/02/2020 [id number] Funmilayo Mcmillan : 1960 Age: [age] year old Sex: female SUBJECTIVE: Patient alert/awake upon arrival. Per MD, patient's discharge pending caregiver training. OBJECTIVE: Funmilayo Mcmillan was seen for 1 WEB CONTENT EXECUTIVE treatment session/s on this date. Treatment was provided due to suspected dysphagia. Patient is a 59 year old female admitted for AMS, aphasia and R sided weakness with PMH significant for HTN, CAD s/p PCI, drug abuse (hx of cocaine abuse), bipolar, PAD. NIHSS21. MRI Brain demonstrated large infarct in left MCA territory without hemorrhagic transformation. PEG placed on 12/29. Progress on short term goals was as follows: Swallowing: - Patient will participate in on-going swallow re-evaluation at the bedside to determine readiness/safety for PO vs need/timing for objective swallow assessment: While her secretion management appears somewhat improved, vocal quality/breathing during intermittent grunts continues to be wet/gurgled which may indicate secretions are moving passively to the pharynx. No overt s/sx of aspiration observed with ice chips. Patient observed to cough with 2/2 trials of thin liquid via tsp and 1/3 trials of nectar thick liquid via tsp. (continue goal) Verbal Expression: Goals not addressed this date d/t time constraints (continue goals) - Patient will communicate basic wants/needs via any language modality (i.e. naming, gesturing, picture communication board) with 80% accuracy and moderate cues. - Patient will recite automatic speech sequences (i.e. counting, days of week, etc) with moderate cues 80% of the time. Auditory Comprehension: Goals not addressed this date d/t time constraints (continue goals) - Patient will answer simple yes/no questions with 80% accuracy. - Patient will follow one-step commands using body parts with moderate cues 80% of the time. ASSESSMENT: Funmilayo Mcmillan demonstrated minimal progress on swallowing goals. She continues to present with oral and suspected pharyngeal dysphagia in the setting of acute CVA. While she appeared to tolerateice chips without overt s/sx of aspiration this date, patient observed to cough on 2/2 tsp sips of thin liquid and 1/3 tsp sips of nectar thick liquid. Vocal quality/breathing during intermittent grunts also appeared to be wet/gurgled suspect secretions to be moving passively to the pharynx, however, aspiration cannot be r/o nor confirmed w/o instrumental imaging. Patient is at suspected high risk for aspiration and does not appear safe nor functional to initiate a po diet. An objective assessment of swallow function (i.e. MBS) is indicated to further assess swallowing physiology and safety for PO intake. While speech-language goals not addressed this date, patient continues to present with severe-profound mixed expressive-receptive aphasia consistent with global aphasia. She does continue to exhibit improving attention/alertness and appears appropriate to participate in swallow study. Pt would benefit from continued WEB CONTENT EXECUTIVE services while in-house and after discharge. Should patient discharge home, recommend 24/7 supervision. PLAN: 1. Recommend patient remain NPO and continue with alternative means of nutrition/hydration (PEG in place). 2. Recommend medical team place order for Modified Barium Swallow Study (COOKIE) to rule out aspiration, further assess swallowing physiology, determine safety for PO intake, and determine need for further dysphagia interventions. 3. Recommend elevated head of bed and frequent, thorough oral hygiene care due to suspected high risk for aspiration. 4. Recommend WEB CONTENT EXECUTIVE therapy 2-5x/wk for 15-45 min/session while in-house to address the above goals. 5. Discharge recommendation: continued WEB CONTENT EXECUTIVE therapy at d/c location (HH/OP speech consult if d/c home); 24/ supervision/assist Keshia Lugo M.[facility]-WEB CONTENT EXECUTIVE Speech-Language Pathologist Office: [phone] Pager: [phone] Adrienne Garcia SW - 01/02/2020 11:14 AM CDTSocial Work note: ROB spoke withdaughter, Ayah Ghislaine [phone] re: need for caregiver training and discharge planning. Ayah assured ROB she will be at [facility] this afternoon @ 1:30pm for caregiver edu. SW informed PT/OT and nurse ROB following up wit DME order via [facility] DME [address] [place], [place] [phone] fax -the DME is pending insurance auth, T19 form in process. TFs to be ordered To follow Tatiana aLne Angel, [facility] [phone] [address] [place] [address] Care Mgmt Dept Jesus Gil MD - 01/01/2020 8:00 AM CDT STROKE PROGRESS NOTE DATE OF SERVICE: 01/01/2020 03:44 Day of Hospitalization: 8 CHIEF COMPLAINT: aphasia and right sided weakness 24-HOUR EVENTS: - NAEON SUBJECTIVE: Patient opens eyes to name, not able to follow commands. STROKE DOCUMENTATION NIH STROKE SCALE LOC: 1 Not Alert: Arousable With Minor Stimulation to Obey, Answer or Respond LOC QUESTIONS: 2 Answers Neither Question Correctly LOC COMMANDS: 2 Performs Neither Task Correctly BEST GAZE: 1 Partial Gaze Palsy VISUAL: 0 No Visual Loss FACIAL PALSY: 2 Partial Paralysis MOTOR ARM-LEFT: 2 Some Effort Against [place] MOTOR ARM-RIGHT: 4 No Movement MOTOR LEG-LEFT: 1 Drift MOTOR LEG-RIGHT: 3 No Effort Against [place] LIMB ATAXIA: 0 Absent SENSORY: 0 Normal BEST LANGUAGE: 3 Mute, Global Aphasia DYSARTHRIA: UN Intubated or Other Physical Barrier, Explain EXTINCTION AND INATTENTION (FORMERLY NEGLECT): 0 No Abnormalty STROKE SCALE INTERVAL: Day 4 STROKE SCALE TOTAL SCORE: 21 OBJECTIVE: PHYSICAL EXAM Vitals: 12/31/19 1637 12/31/19 1850 12/31/19 2000 12/31/19 2318 BP: 132/67 (!) 156/78 (!) 142/68 BP Location: Right arm Left arm Patient Position: Sitting Supine Pulse: 60 66 64 65 Resp: 18 18 16 16 Temp: 37.3 C (99.2 F) 36.7 C (98 F) 37.4 C (99.4 F) TempSrc: Oral Oral Axillary SpO2: 97% 96% 97% 95% Weight: Height: General: Patient is awake, opens eyes to her name unable to follow commands Mental Status: Consciousness, attention, concentration:impaired. Speech/ Language:impairedto comprehension, fluency, repetition and naming. Global aphasia Fund of knowledge:APPLE Remote and recent memory:APPLE Cranial Nerves: I. Not tested. II.Leftgaze preference improved, unable to track to command but looking around in all directions III. IV., .Unable to track fingers, moves eyes spontaneously in all directions, prefers left gaze V.APPLE VII.RightUMNfacial droop VIII.APPLE IX., X. XI. XII.APPLE Motor: Tone:right side flaccid Bulk:decreased LUE : 4/5 LLE : 4/5 right upper extremity to painful stimuli : 1/5 RLE : to pain 1-2/5 DTR's: Right Left Biceps 2+ 2+ Triceps 2+ 2+ Brachioradialis 2+ 2+ Patella 2+ 2+ Achilles 1+ 1+ Pathologic reflexes and signs: Babinski:present on right side Cerebellar: Nystagmus: neg, FTN,HTS:APPLE, Tremors: neg Sensory: Withdraws to pain in all extremities right > left Gait:APPLE Lungs: Wheezing heard Cardio: S1, S2 normal Extremities:no cyanosis,clubbing or edema Neck:supple,no carotid bruit,no JVD Abdomen: soft; non-tender; non-distended; normoactive bowel sounds heard MEDICATIONS Current Facility-Administered Medications Medication Dose Route Frequency Last Rate Last Dose amLODIPine (NORVASC) tablet 10 mg 10 mg Enteral DAILY 10 mg at 12/31/19 09 clopidogreL (PLAVIX) tablet 75 mg 75 mg Enteral DAILY risperiDONE (RISPERDAL) tablet 0.5 mg 0.5 mg Enteral BID 0.5 mg at 12/31/192007 acetylcysteine (MUCOMYST) 200 mg/mL (20 %) solution 200 mg 1 mL Inhalation Q6H chlorhexidine (PERIDEX) 0.12 % mouthwash 15 mL 15 mL Oral (Swish And Spit Out) Q6H 15 mL at 12/31/191799 ipratropium-albuteroL (DUONEB) 0.5 mg-3 mg(2.5 mg base)/3 mL nebulizer solution 3 mL 3 mL Inhalation Q6H ABX 3 mL at 12/31/19 1849 piperacillin-tazobactam (ZOSYN) 3.375 g in NaCl 0.9% (NS) 100 mL MINI-BAG 3.375 g IV Piggyback Q6H ABX 3.375 g at 01/01/20 0240 Saline Bubble Study 6 mL Injection SEE-INSTRUCTIONS 6 mL at 12/29/19 1500 Saline Bubble Study 6 mL Injection SEE-INSTRUCTIONS 6 mL at 12/29/19 1500 levETIRAcetam (KEPPRA) 100 mg/mL oral solution 750 mg 750 mg Enteral BID 750 mg at 12/31/192007 scopolamine transdermal (TRANSDERM-SCOP) patch 1.5 mg 1.5 mg Topical Q72H 1.5 mg at 12/31/19999 Polyethylene Glycol 3350 (MIRALAX) powder 17 g 17 g Enteral BID 17 g at 12/31/192007 sennosides-docusate sodium (SENOKOT-S) 8.6-50 mg per tablet 1 tablet 1 tablet Enteral BID 1 tablet at 12/31/192007 hydralAZINE (APRESOLINE) injection 10 mg 10 mg Slow IV Push Q6HPRN 10 mg at 12/27/19 0521 lisinopriL (PRINIVIL,ZESTRIL) tablet 10 mg 10 mg Enteral BID 10 mg at 12/31/192007 aspirin EC tablet 81 mg 81 mg Enteral DAILY 81 mg at 12/31/19 0900 atorvastatin (LIPITOR) tablet 40 mg 40 mg Enteral QHS 40 mg at 12/31/192007 famotidine (PEPCID) 40 mg/5 mL (8 mg/mL) suspension 20 mg 20 mg Enteral BID 20 mg at heparin (porcine) injection 5,000 Units 5,000 Units Subcutaneous Q12H 5,000 Units at LABS Recent Results (from the past 24 hour(s)) BASIC METABOLIC PANEL (NA, K, CL, CO2, GLUCOSE, BUN, CREATININE, CA) Collection Time: 12/31/19 4:11 AM Result Value Ref Range NA 136 135 - 145 mmol/L K 4.0 3.5 - 5.0 mmol/L CL 108 98 - 108 mmol/L CO2 TOTAL 22 (L) 23 - 31 mmol/L AGAP 6 2 - 16 BUN 16 7 - 23 mg/dL GLUCOSE 89 70 - 110 mg/dL CREATININE 0.67 0.50 - 1.04 mg/dL CALCIUM 8.3 (L) 8.6 - 10.6 mg/dL eGFR Calculation (Non-) 90.4 mL/min/1.73m2 eGFR Calculation () 109.6 mL/min/1.73m2 CBC WITH DIFF Collection Time: 12/31/19 4:11 AM Result Value Ref Range WBC 7.90 4.30 - 11.10 10*3/L RBC 4.17 3.93 - 5.25 10*6/L HGB 13.1 11.6 - 15.0 g/dL HCT 39.8 35.7 - 45.2 % MCV 95.4 80.6 - 95.5 fL MCH 31.4 25.9 - 32.8 pg MCHC 32.9 31.6 - 35.1 g/dL RDW-SD 41.3 39.0 - 49.9 fL RDW-CV 11.9 (L) 12.0 - 15.5 % PLT 231 166 - 358 10*3/L MPV 11.0 9.5 - 12.9 fL NRBC/100 WBC 0.0 0.0 - 10.0 /100 WBCs NRBC x10^3 <0.01 10*3/L GRAN MAT (NEUT) % 71.1 % IMM GRAN % 0.40 % LYMPH % 19.5 % MONO % 7.7 % EOS % 1.0 % BASO % 0.3 % GRAN MAT x10^3(ANC) 5.62 1.88 - 7.09 10*3/uL IMM GRAN x10^3 0.03 0.00 - 0.06 10*3/uL LYMPH x10^3 1.54 1.32 - 3.29 10*3/uL MONO x10^3 0.61 0.33 - 0.92 10*3/uL EOS x10^3 0.08 0.03 - 0.39 10*3/uL BASO x10^3 <0.03 0.01 - 0.07 10*3/uL MAGNESIUM Collection Time: 12/31/19 4:11 AM Result Value Ref Range MAGNESIUM 1.8 1.7 - 2.4 mg/dL STROKE LABS HGB A1C (%) Date Value 12/24/2019 5.2 LDL CHOL (mg/dL) Date Value 12/24/2019 109 CHOL (mg/dL) Date Value 12/24/2019 211 (H) TSH (mIU/L) Date Value 12/24/2019 2.06 Recent Labs 12/24/19 1241 12/26/19 0405 TROPNI 0.017 0.013 RADIOLOGY Xr Chest 1 Vw Result Date: 12/30/2019 New faint left lower lung opacity may represent developing infectious etiology. Preliminary Report Dictated by Resident: Wai Amin I, Isaiah Valentine MD., have reviewed this study and agree with the above report. ASSESSMENT AND PLAN Funmilayo Mcmillan is a 59 year old female with PMHx of the following stroke risk factors: HTN, CAD s/p PCI, drug abuse, bipolar, PAD, who presented withright side weakness, global aphasia, confusion.LSN:>24hr, NIHSS21. CT headacute-subacute infact of L MCA, CTA head and neckshowed co mplete occlusion of L cervical ICA and 50% narrowing of right proximal cervical ICA. Mild focal narrowing of mid basilar artery, some collateral flow over distal MCA.Case discussed with dr Beach and agreed no need for intervention as patient has good collaterals and passed window of intervention.MRI brain showed left MCA territory with no evidence of hemorrhagic transformation. Patient continued to be encephalopathic, cEEG showed no seizures. Subacute-acute ischemic stroke of L MCA, mid M1 occlusion Right gaze, concern for seizure resolved Complete occlusion of L ICA Hx of stroke? Toxic metabolic encephalopathy 2/2 medications improving Hx of cocaine abuse (UDS +ve cocaine) - Evaluation by PT/OT for placement. - Neurochecks - Telemetry - SBP : 120-160 - c/w Keppra 750 mg BID - c/w aspirin, plavix 75 mg daily - Atorvastatin 40 mg QHS - Risperidal 0.5 mg BID CAD s/p PCI HTN Multiple PVC HFrEF ( EF 40-45%) COPD Increased secretions Concern for aspiration pneumonia - c/w lisinopril 10 mg BID, amlodipine 10 mg daily - Cardiology consulted, Plan for ischemic workup after stable from neurological standpoint - Duonebs QID and mucomyst Q6H - Scopolamine patch for increased secretions. - C/w zosyn day 3 today can discontinue after 72 hrs if no fevers Dysphagia s/p PEG tube placement Will start continuous feeds today, if tolerated will switch to bolus feeds - GI Prophylaxis: famotidine - DVT Prophylaxis: heparin - Code status: FULL The case was discussed and seen with Dr. Dixon, Neurology Faculty. Stroke pager: [phone] Jesus Carballo M.D PGY1 Neurology Resident Doctor's number: [id number] Pager: [phone] HOSPITAL COURSE: Funmilayo Mcmillan is a 59 year old unknown handednesscaucasian female with PMHX of bipolar, depression, HTN, CAD s/p PCI, , PAD, stroke?, TB, drug abuse (crack)who presented with CC of AMS, right side weakness, aphasia. LSN : unknown, At OSH ER, BP 167/104, HR 67, afebrile, RR20, UDS +ve cocaine and HTC, UA negative, TSH wnl, LFT wnl, bmp wnl, cbc mildly elevated wbc of 12.3, trop negative. CTH showed acute-subacute L MCA infact, transferred to [facility]. CT angiogram head and neck showed complete occlusion of left cervical ICA from just distal to the bulb through the supraclinoid segment at the level of the ophthalmic artery, mild to moderate narrowing of basilar artery. Required cardene for BP managament later weaned off. Developed right gaze preference on 12/24 loaded with Keppra and started on maintenance Keppra. CEEG showed no electrographic seizures or epileptiform discharges. MRI Brain demonstrated large infarct in left MCA territory without hemorrhagic transformation. TTE showed EF 40-45% with wall motion abnormalities. Cardiology consulted for reduced EF.Repeat focused echo withworsened EF (30-35%) and anterolateral/apical hypokinesis.Plan for PEG tube placement, plavix held.Transferred to floor 12/27 afternoon, no acute events overnight. However, on 12/28 continued to have copious secretions requiring frequent suctioning. MD notified at 11:54 AM and transferred back to ICU for higher level of care. Patient started on scheduled nebulizers with improvement in respiratorystatus, deemed stable for transfer to floor. Associated attestation - Cesar Dixon MD - 01/01/2020 2:29 PM CDTI personally examined this patient today. In addition, I actively participated in the decision making process, and helped formulate the assessment and plan/recommendations written in the resident's note. Abhishek Berumen MBBS - 12/31/2019 8:05 AM CDT STROKE PROGRESS NOTE DATE OF SERVICE: 12/31/2019 08:05 Day of Hospitalization: 7 CHIEF COMPLAINT: aphasia and right sided weakness 24-HOUR EVENTS: Transferred to floor from ICU overnight PEG tube placed by IR, needs to be cleared to start feeds SBP trending 130's to 160's overnight, increased amlodipine to 10 mg daily SUBJECTIVE: Patient opens eyes to name, not able to follow commands. STROKE DOCUMENTATION NIH STROKE SCALE LOC: 1 Not Alert: Arousable With Minor Stimulation to Obey, Answer or Respond LOC QUESTIONS: 2 Answers Neither Question Correctly LOC COMMANDS: 2 Performs Neither Task Correctly BEST GAZE: 1 Partial Gaze Palsy VISUAL: 0 No Visual Loss FACIAL PALSY: 2 Partial Paralysis MOTOR ARM-LEFT: 2 Some Effort Against [place] MOTOR ARM-RIGHT: 4 No Movement MOTOR LEG-LEFT: 1 Drift MOTOR LEG-RIGHT: 3 No Effort Against [place] LIMB ATAXIA: 0 Absent SENSORY: 0 Normal BEST LANGUAGE: 3 [place], Global Aphasia DYSARTHRIA: UN Intubated or Other Physical Barrier, Explain EXTINCTION AND INATTENTION (FORMERLY NEGLECT): 0 No Abnormalty STROKE SCALE INTERVAL: Day 4 STROKE SCALE TOTAL SCORE: 21 OBJECTIVE: PHYSICAL EXAM Vitals: 12/30/19 2323 12/31/19 0403 12/31/19 0721 12/31/19 0740 BP: 133/72 (!) 159/100 BP Location: Left arm Left arm Patient Position: Supine Supine Pulse: 62 67 Resp: 20 16 18 18 Temp: 35.9 C (96.7 F) 36.5 C (97.7 F) TempSrc: Oral Oral SpO2: 98% 99% 99% 99% Weight: Height: General: Patient is awake, opens eyes to her name unable to follow commands Mental Status: Consciousness, attention, concentration:impaired. Speech/ Language:impairedto comprehension, fluency, repetition and naming. Global aphasia Fund of knowledge:APPLE Remote and recent memory:APPLE Cranial Nerves: I. Not tested. II.Leftgaze preference improved, unable to track to command but looking around in all directions III. IV., .Unable to track fingers, moves eyes spontaneously in all directions, prefers left gaze V.APPLE VII.RightUMNfacial droop VIII.APPLE IX., X. XI. XII.APPLE Motor: Tone:right side flaccid Bulk:decreased LUE : 4/5 LLE : 4/5 right upper extremity to painful stimuli : 1/5 RLE : to pain 1-2/5 DTR's: Right Left Biceps 2+ 2+ Triceps 2+ 2+ Brachioradialis 2+ 2+ Patella 2+ 2+ Achilles 1+ 1+ Pathologic reflexes and signs: Babinski:present on right side Cerebellar: Nystagmus: neg, FTN,HTS:APPLE, Tremors: neg Sensory: Withdraws to pain in all extremities right > left Gait:APPLE Lungs: Wheezing heard Cardio: S1, S2 normal Extremities:no cyanosis,clubbing or edema Neck:supple,no carotid bruit,no JVD Abdomen: soft; non-tender; non-distended; normoactive bowel sounds heard MEDICATIONS Current Facility-Administered Medications Medication Dose Route Frequency Last Rate Last Dose amLODIPine (NORVASC) tablet 10 mg 10 mg Enteral DAILY risperiDONE (RISPERDAL) tablet 0.5 mg 0.5 mg Enteral BID 0.5 mg at 12/30/19 0908 acetylcysteine (MUCOMYST) 200 mg/mL (20 %) solution 200 mg 1 mL Inhalation Q6H 200 mg at 12/31/19 0721 chlorhexidine (PERIDEX) 0.12 % mouthwash 15 mL 15 mL Oral (Swish And Spit Out) Q6H Stopped at1 1200 ipratropium-albuteroL (DUONEB) 0.5 mg-3 mg(2.5 mg base)/3 mL nebulizer solution 3 mL 3 mL Inhalation Q6H ABX 3 mL at 12/31/19 0721 piperacillin-tazobactam (ZOSYN) 3.375 g in NaCl 0.9% (NS) 100 mL MINI-BAG 3.375 g IV Piggyback Q6H ABX 3.375 g at 12/31/19 0312 Saline Bubble Study 6 mL Injection SEE-INSTRUCTIONS 6 mL at 12/29/19 1500 Saline Bubble Study 6 mL Injection SEE-INSTRUCTIONS 6 mL at 12/29/19 1500 levETIRAcetam (KEPPRA) 100 mg/mL oral solution 750 mg 750 mg Enteral BID 750 mg at 12/30/19 0908 scopolamine transdermal (TRANSDERM-SCOP) patch 1.5 mg 1.5 mg Topical Q72H 1.5 mg at 12/28/19 1326 Polyethylene Glycol 3350 (MIRALAX) powder 17 g 17 g Enteral BID 17 g at 12/30/19 0908 sennosides-docusate sodium (SENOKOT-S) 8.6-50 mg per tablet 1 tablet 1 tablet Enteral BID 1 tablet at 12/30/19 0908 hydralAZINE (APRESOLINE) injection 10 mg 10 mg Slow IV Push Q6HPRN 10 mg at 12/27/19 0521 lisinopriL (PRINIVIL,ZESTRIL) tablet 10 mg 10 mg Enteral BID 10 mg at 12/30/19 0908 aspirin EC tablet 81 mg 81 mg Enteral DAILY Stopped at 12/29/19 0900 atorvastatin (LIPITOR) tablet 40 mg 40 mg Enteral QHS 40 mg at 12/29/19 2115 famotidine (PEPCID) 40 mg/5 mL (8 mg/mL) suspension 20 mg 20 mg Enteral BID 20 mg at heparin (porcine) injection 5,000 Units 5,000 Units Subcutaneous Q12H Stopped at 12/30/19 0800 LABS Recent Results (from the past 24 hour(s)) BASIC METABOLIC PANEL (NA, K, CL, CO2, GLUCOSE, BUN, CREATININE, CA) Collection Time: 12/31/19 4:11 AM Result Value Ref Range NA 136 135 - 145 mmol/L K 4.0 3.5 - 5.0 mmol/L CL 108 98 - 108 mmol/L CO2 TOTAL 22 (L) 23 - 31 mmol/L AGAP 6 2 - 16 BUN 16 7 - 23 mg/dL GLUCOSE 89 70 - 110 mg/dL CREATININE 0.67 0.50 - 1.04 mg/dL CALCIUM 8.3 (L) 8.6 - 10.6 mg/dL eGFR Calculation (Non-) 90.4 mL/min/1.73m2 eGFR Calculation () 109.6 mL/min/1.73m2 CBC WITH DIFF Collection Time: 12/31/19 4:11 AM Result Value Ref Range WBC 7.90 4.30 - 11.10 10*3/L RBC 4.17 3.93 - 5.25 10*6/L HGB 13.1 11.6 - 15.0 g/dL HCT 39.8 35.7 - 45.2 % MCV 95.4 80.6 - 95.5 fL MCH 31.4 25.9 - 32.8 pg MCHC 32.9 31.6 - 35.1 g/dL RDW-SD 41.3 39.0 - 49.9 fL RDW-CV 11.9 (L) 12.0 - 15.5 % PLT 231 166 - 358 10*3/L MPV 11.0 9.5 - 12.9 fL NRBC/100 WBC 0.0 0.0 - 10.0 /100 WBCs NRBC x10^3 <0.01 10*3/L GRAN MAT (NEUT) % 71.1 % IMM GRAN % 0.40 % LYMPH % 19.5 % MONO % 7.7 % EOS % 1.0 % BASO % 0.3 % GRAN MAT x10^3(ANC) 5.62 1.88 - 7.09 10*3/uL IMM GRAN x10^3 0.03 0.00 - 0.06 10*3/uL LYMPH x10^3 1.54 1.32 - 3.29 10*3/uL MONO x10^3 0.61 0.33 - 0.92 10*3/uL EOS x10^3 0.08 0.03 - 0.39 10*3/uL BASO x10^3 <0.03 0.01 - 0.07 10*3/uL MAGNESIUM Collection Time: 12/31/19 4:11 AM Result Value Ref Range MAGNESIUM 1.8 1.7 - 2.4 mg/dL STROKE LABS HGB A1C (%) Date Value 12/24/2019 5.2 LDL CHOL (mg/dL) Date Value 12/24/2019 109 CHOL (mg/dL) Date Value 12/24/2019 211 (H) TSH (mIU/L) Date Value 12/24/2019 2.06 Recent Labs 12/24/19 1241 12/26/19 0405 TROPNI 0.017 0.013 RADIOLOGY Xr Chest 1 Vw Result Date: 12/30/2019 New faint left lower lung opacity may represent developing infectious etiology. Preliminary Report Dictated by Resident: Wai Amin I, Isaiah Valentine MD., have reviewed this study and agree with the above report. Xr Chest 1 Vw Result Date: 12/29/2019 No acute cardiopulmonary abnormality. Chronic emphysematous changes. Preliminary Report Dictated by Resident: Wai Amin I, Martin العراقي MD., have reviewed this study and agree with the abovereport. Xr Kub Result Date: 12/29/2019 Appropriate positioning enteric tube. 2. Nonobstructive bowel gas pattern. Preliminary Report Dictated by Resident: Navi Collazo I, Martha Allan MD., have reviewed this study and agree with the above report. ASSESSMENT AND PLAN Funmilayo Mcmillan is a 59 year old female with PMHx of the following stroke risk factors: HTN, CAD s/p PCI, drug abuse, bipolar, PAD, who presented withright side weakness, global aphasia, confusion.LSN:>24hr, NIHSS21. CT headacute-subacute infact of L MCA, CTA head and neckshowed co mplete occlusion of L cervical ICA and 50% narrowing of right proximal cervical ICA. Mild focal narrowing of mid basilar artery, some collateral flow over distal MCA.Case discussed with dr Beach and agreed no need for intervention as patient has good collaterals and passed window of intervention.MRI brain showed left MCA territory with no evidence of hemorrhagic transformation. Patient continued to be encephalopathic, cEEG showed no seizures. Subacute-acute ischemic stroke of L MCA, mid M1 occlusion Right gaze, concern for seizure resolved Complete occlusion of L ICA Hx of stroke? Toxic metabolic encephalopathy 2/2 medications improving Hx of cocaine abuse (UDS +ve cocaine) - Neurochecks - Telemetry - SBP : 120-160 - c/w Keppra 750 mg BID - c/w aspirin, restart plavix 75 mg daily - Atorvastatin 40 mg QHS - Risperidal 0.5 mg BID #CAD s/p PCI # HTN # Multiple PVC # HFrEF ( EF 40-45%) # COPD # Increased secretions # Concern for aspiration pneumonia - c/w lisinopril 10 mg BID, amlodipine increased to 10 m daily - Cardiology consulted, Plan for ischemic workup after stable from neurological standpoint - Duonebs QID and mucomyst Q6H - Scopolamine patch for increased secretions. - C/w zosyn day 3 today can discontinue after 72 hrs if no fevers # Dysphagia S/p PEG tube placement Will start continuous feeds today, if tolerated will switch to bolus feeds - GI Prophylaxis: famotidine - DVT Prophylaxis: heparin - Code status: FULL The case was discussed and seen with Dr. Dixon, Neurology Faculty. Stroke pager: [phone] Ata Weiss MD, PGY-3, Neurology Pager: [phone] HOSPITAL COURSE: Funmilayo Mcmillan is a 59 year old unknown handednesscaucasian female with PMHX of bipolar, depression, HTN, CAD s/p PCI, , PAD, stroke?, TB, drug abuse (crack)who presented with CC of AMS, right side weakness, aphasia. LSN : unknown, At OSH ER, BP 167/104, HR 67, afebrile, RR20, UDS +ve cocaine and HTC, UA negative, TSH wnl, LFT wnl, bmp wnl, cbc mildly elevated wbc of 12.3, trop negative. CTH showed acute-subacute L MCA infact, transferred to [facility]. CT angiogram head and neck showed complete occlusion of left cervical ICA from just distal to the bulb through the supraclinoid segment at the level of the ophthalmic artery, mild to moderate narrowing of basilar artery. Required cardene for BP managament later weaned off. Developed right gaze preference on 12/24 loaded with Keppra and started on maintenance Keppra. CEEG showed no electrographic seizures or epileptiform discharges. MRI Brain demonstrated large infarct in left MCA territory without hemorrhagic transformation. TTE showed EF 40-45% with wall motion abnormalities. Cardiology consulted for reduced EF.Repeat focused echo withworsened EF (30-35%) and anterolateral/apical hypokinesis.Plan for PEG tube placement, plavix held.Transferred to floor 12/27 afternoon, no acute events overnight. However, on 12/28 continued to have copious secretions requiring frequent suctioning. MD notified at 11:54 AM and transferred back to ICU for higher level of care. Patient started on scheduled nebulizers with improvement in respiratorystatus, deemed stable for transfer to floor. Associated attestation - Cesar Dixon MD - 12/31/2019 2:13 PM CDTI personally examined this patient today. In addition, I actively participated in the decision making process, and helped formulate the assessment and plan/recommendations written in the resident's note. Keshia Lugo, WEB CONTENT EXECUTIVE - 12/30/2019 5:38 PM [facility] LANGUAGE PATHOLOGY Daily Progress Note - 12/30/2019 [id number] Funmilayo Mcmillan : 1960 Age: [age] year old Sex: female SUBJECTIVE: Patient awake upon arrival with daughters present at bedside. They report patient has been attempting to communicate by voicing, but has not verbalized any words to them. OBJECTIVE: Funmilayo Mcmillan was seen for 1 WEB CONTENT EXECUTIVE treatment session/s on this date. Treatment was provided due to suspected dysphagia. Patient is a 59 year old female admitted for AMS, aphasia and R sided weakness with PMH significant for HTN, CAD s/p PCI, drug abuse (hx of cocaine abuse), bipolar, PAD. NIHSS21. MRI Brain demonstrated large infarct in left MCA territory without hemorrhagic transformation. Planned for PEG placement. Progress on short term goals was as follows: Swallowing: - Patient will participate in on-going swallow re-evaluation at the bedside to determine readiness/safety for PO vs need/timing for objective swallow assessment: While her secretion management appears somewhat improved, vocal quality/breathing during intermittent grunts continues to be wet/gurgled which may indicate secretions are moving passively to the pharynx. Pt given ice chip and observed to cough after 3/4 trials. (continue goal) Verbal Expression: - Patient will communicate basic wants/needs via any language modality (i.e. naming, gesturing, picture communication board) with 80% accuracy and moderate cues. Despite max cues (direct modeling, hand over hand, etc), patient did not communicate via any modality. (continue goal) - Patient will recite automatic speech sequences (i.e. counting, days of week, etc) with moderate cues 80% of the time. Despite max cues (direct modeling,melodic intonation), patient did not attempt to recite numbers 1-3or days of week. (continue goal) Auditory Comprehension: - Patient will answer simple yes/no questions with 80% accuracy. Patient made no attempt to answer yes/no questions in all 5 trials. (continue goal) - Patient will follow one-step commands using body parts with moderate cues 80% of the time. With direct model, patient followed 2/3 1-step commands (opening mouth and sticking out tongue). (progressing, continue goal) ASSESSMENT: Funmilayo Mcmillan demonstrated minimal progress on swallowing goals. She continues to present with oral and suspected pharyngeal dysphagia in the setting of acute CVA. Pt observed to cough after 2/3ice chip trials. Vocal quality/breathing during intermittent grunts appeared to be wet/gurgled suspect secretions to be moving passively to the pharynx, however, aspiration cannot be r/o nor confirmed w/o instrumental imaging. Patient is at suspected high risk for aspiration and does not appear safe nor functional to initiate a po diet. Suspect patient to benefit from continued use of short-term FACUNDO with strict oral hygiene care. Per nursing, patient also to likely have PEG placed in the coming days. Patient with improved alertness and increased eye contact/sustained attention this date. She also demonstrated improved ability to follow 1-step directions. However, still with no attempts to communicate despite max cues. She is unsafe to be on her own and take care of herself d/t inability to make her wants/needs known. Pt would benefit from continued WEB CONTENT EXECUTIVE services while in-house and after discharge.Should patient discharge home, recommend 24/7 supervision. PLAN: 1. Recommend patient remain NPO and continue with alternative means of nutrition/hydration (DHT in place). 2. Recommend elevated head of bed and frequent, thorough oral hygiene care due to suspected high risk for aspiration. 3. Recommend WEB CONTENT EXECUTIVE therapy 2-5x/wk for 15-45 min/session while in-house to address the above goals. 4. Discharge recommendation: continued WEB CONTENT EXECUTIVE therapy at d/c facility; 24/7 supervision/assist Keshia Lugo [facility]-WEB CONTENT EXECUTIVE Speech-Language Pathologist Office: [phone] Pager: [phone] Emile Saucedo PTA - 12/30/2019 3:46 PM CDTPTA NOTE: Attempted to treat patient this afternoon but currently with another service. Will check back later if schedule permits. Emile Saucedo PTA [facility] [phone] Leland Muse MD - 12/30/2019 12:10 PM CDT Neurocritical Care Attending Note I have been directly involved in the care of this patient including decision- making with house staffand nursing teams at the bedside. Ms Funmilayo Mcmillan is critically ill, 59 year old years old female with a PMH of Past Medical History: Diagnosis Date CAD (coronary artery disease) 08/2013 s/p PCI (SAEID) to proximal LAD, 50% mid focal occlusion of LCx Depression HTN (hypertension) PAD (peripheral artery disease) 05/10/2015 Stroke Tuberculosis was treated for 6 months, was in longterm. now admitted on 12/24/2019 with history per neurology resident admission note- 59 year old female unknown handiness with PMHX of bipolar, depression, HTN, CAD s/p PCI, , PAD, stroke?, TB, drug abuse (crack) who presented with CC of AMS, right side weakness, aphasia. Unknown LSN, patient was seen with her friends. 2 days ago she was found on ground in her living room, she then got up and was laying on bed, 2 hours later her friend was checking on her and she was again laying on ground. She was then seen today sitting arms crossed in her chest and she would not respond, then EMSwas called Daughter saw patient couple months ago, and she was at her baseline (with no focal deficit independent on ADL. At OSH ER, BP 167/104, HR 67, afebrile, RR20, UDS +ve cocaine and HTC, UA negative, TSH wnl, LFT wnl, bmp wnl, cbc mildly elevated wbc of 12.3, trop negative. CTH showed acute-subacute L MCA infact insuperior division. Patient was transferred to [facility] for further workup. MRI brain- 12/26/2019- subacute left MCA infarction- no haemorrhagic transformation; chronic small vessel disease. Patient was hemodynamically stable and transferred to floor on 12/28/2019. Hospital complication: - Rapid response due to respiratory distress- due to difficulty with handling oral-airway secretions; became tachypneic; normal O2 saturation, ABG- normal; transferred to NCCU, treated with frequent suction, increase nebs, glycopyrrolate, empiric antibiotics and O2 supplementation. Interval history:- Early this AM- much less agitated, lying in bed, eyes open, head deviated to right side; right side gaze preference though crosses midline; right facial UMN weakness; right UE & LE- 1 to 2/5; left UE & LE- att least 4/5 to pain; * chest- conducted airway sounds; no crepitations at bases; normal breathing- occasional cough- mostly dry Active problem list- 1. Left MCA acute ischemic stroke (LDL-109, A1c-5.2%) 2. Active Cocaine abuse 3. At risk for seizures, at risk for stroke 4. History of multiple medical comorbidities-as mentioned abovely this AM 5. Respiratory distress- due to difficulty with airway secretions Temp: [36 C (96.8 F)-37.5 C (99.5 F)] Heart Rate (monitor): [40-87] Pulse: [42-78] Resp: [12-24] BP: (102-162)/(47-108) MAP (mmHg): [67-118] ; Lab Results Component Value Date NA 141 12/30/2019 NA 135 12/29/2019 NA 139 12/28/2019 NA 146 (H) 04/12/2014 NA 139 08/23/2013 NA 140 08/22/2013 BUN Date Value 12/30/2019 18 mg/dL 04/12/2014 26 MG/DL (H) Recent Labs 12/29/19 0438 12/30/19 0324 WBC 11.06 9.56 Intake/Output Summary (Last 24 hours) at 12/30/2019 1643 Last data filed at 12/30/2019 0659 Gross per 24 hour Intake 1050.5 ml Output 575 ml Net 475.5 ml Plan: 1) Continue neurochecks; aspirin, clopidogrel, atorvastatin * Levetiracetam 750 mg twice a day; 2) cardiopulmonary monitoring- SBP bcor-137-932 mmHg - continue empiric antibiotics; NT suction; Nebs; chlorhexidine oral care; -Continue Lisinopril and Amlodipine 3) Advance enteral intake as tolerated- via NG tube * consider early PEG placement - aim for euvolemia; euthermia and euglycemia 4) DVT/GI prophylaxis- SCD's; SC heparin, bowel regimen 5) Out of bed to chair; PT/OT/speech if feasible *SW to initiate placement procedure Disposition: awaiting stable neurologic, cardiac-pulmonary and hemodynamic status I have spent a total of 35 min of critical care time at the bedside. Leland Richards M.D. Neurocritical Care Unit Attending TTAbhishek hinton MBBS - 12/30/2019 11:17 AM CDT [facility] PROGRESS NOTE/ TRANSFER NOTE DATE OF SERVICE: 12/30/2019 11:17 Day of Hospitalization: 6 CHIEF COMPLAINT: aphasia, right sided weakness, AMS Code status: Addressed : FULL ( daughter : Dwight Devi) Hospital Course : Funmilayo Mcmillan is a 59 year old unknown handednesscaucasian female with PMHX of bipolar, depression, HTN, CAD s/p PCI, , PAD, stroke?, TB, drug abuse (crack)who presented with CC of AMS, right side weakness, aphasia. LSN : unknown, At OSH ER, BP 167/104, HR 67, afebrile, RR20, UDS +ve cocaine and HTC, UA negative, TSH wnl, LFT wnl, bmp wnl, cbc mildly elevated wbc of 12.3, trop negative. CTH showed acute-subacute L MCA infact, transferred to [facility]. CT angiogram head and neck showed complete occlusion of left cervical ICA from just distal to the bulb through the supraclinoid segment at the level of the ophthalmic artery, mild to moderate narrowing of basilar artery. Required cardene for BP managament later weaned off. Developed right gaze preference on 12/24 loaded with Keppra and started on maintenance Keppra. CEEG showed no electrographic seizures or epileptiform discharges. MRI Brain demonstrated large infarct in left MCA territory without hemorrhagic transformation. TTE showed EF 40-45% with wall motion abnormalities. Cardiology consulted for reduced EF. Repeat focused echo with worsened EF (30-35%) and anterolateral/apical hypokinesis. Plan for PEG tube placement, plavix held. Transferred to floor 12/27 afternoon, no acute events overnight. However, on 12/28 continued to have copious secretions requiring frequent suctioning. MD notified at 11:54 AM and transferred back to ICUfor higher level of care. Patient started on scheduled nebulizers with improvement in respiratory status, deemed stable for transfer to floor. 24-HOUR EVENTS: CXR : New faint left lower lung opacity may represent developing infectious Etiology Episodes of sinus bradycardia overnight Planned for PEG tube placement today SUBJECTIVE: Opens eyes to name more awake compared to yesterday, unable to follow commands. STROKE DOCUMENTATION NIH STROKE SCALE NIH STROKE SCALE LOC: 1 Not Alert: Arousable With Minor Stimulation to Obey, Answer or Respond LOC QUESTIONS: 2 Answers Neither Question Correctly LOC COMMANDS: 2 Performs Neither Task Correctly BEST GAZE: 1 Partial Gaze Palsy VISUAL: 0 No Visual Loss FACIAL PALSY: 2 Partial Paralysis MOTOR ARM-LEFT: 2 Some Effort Against [place] MOTOR ARM-RIGHT: 4 No Movement MOTOR LEG-LEFT: 1 Drift MOTOR LEG-RIGHT: 3 No Effort Against [place] LIMB ATAXIA: 0 Absent SENSORY: 0 Normal BEST LANGUAGE: 3 [place], Global Aphasia DYSARTHRIA: UN Intubated or Other Physical Barrier, Explain EXTINCTION AND INATTENTION (FORMERLY NEGLECT): 0 No Abnormalty STROKE SCALE INTERVAL: Day 4 STROKE SCALE TOTAL SCORE: 21 HOSPITAL MEDICATIONS Current Facility-Administered Medications Medication Dose Route Frequency Last Rate Last Dose risperiDONE (RISPERDAL) tablet 0.5 mg 0.5 mg Enteral BID 0.5 mg at 12/30/19 0908 acetylcysteine (MUCOMYST) 200 mg/mL (20 %) solution 200 mg 1 mL Inhalation Q6H 200 mg at 12/30/19 1103 chlorhexidine (PERIDEX) 0.12 % mouthwash 15 mL 15 mL Oral (Swish And Spit Out) Q6H 15 mL at 12/30/19 0532 ipratropium-albuteroL (DUONEB) 0.5 mg-3 mg(2.5 mg base)/3 mL nebulizer solution 3 mL 3 mL Inhalation Q6H ABX 3 mL at 12/30/19 1100 piperacillin-tazobactam (ZOSYN) 3.375 g in NaCl 0.9% (NS) 100 mL MINI-BAG 3.375 g IV Piggyback Q6H ABX 3.375 g at 12/30/19 0658 Saline Bubble Study 6 mL Injection SEE-INSTRUCTIONS 6 mL at 12/29/19 1500 Saline Bubble Study 6 mL Injection SEE-INSTRUCTIONS 6 mL at 12/29/19 1500 levETIRAcetam (KEPPRA) 100 mg/mL oral solution 750 mg 750 mg Enteral BID 750 mg at 12/30/19 0908 scopolamine transdermal (TRANSDERM-SCOP) patch 1.5 mg 1.5 mg Topical Q72H 1.5 mg at 12/28/19 1326 Polyethylene Glycol 3350 (MIRALAX) powder 17 g 17 g Enteral BID 17 g at 12/30/19 0908 sennosides-docusate sodium (SENOKOT-S) 8.6-50 mg per tablet 1 tablet 1 tablet Enteral BID 1 tablet at 12/30/19 0908 amLODIPine (NORVASC) tablet 5 mg 5 mg Enteral DAILY 5 mg at 12/30/19 0908 hydralAZINE (APRESOLINE) injection 10 mg 10 mg Slow IV Push Q6HPRN 10 mg at 12/27/19 0521 lisinopriL (PRINIVIL,ZESTRIL) tablet 10 mg 10 mg Enteral BID 10 mg at 12/30/19 0908 aspirin EC tablet 81 mg 81 mg Enteral DAILY Stopped at 12/29/19 0900 atorvastatin (LIPITOR) tablet 40 mg 40 mg Enteral QHS 40 mg at 12/29/19 2115 famotidine (PEPCID) 40 mg/5 mL (8 mg/mL) suspension 20 mg 20 mg Enteral BID 20 mg at heparin (porcine) injection 5,000 Units 5,000 Units Subcutaneous Q12H Stopped at 12/30/19 0800 PHYSICAL EXAM BP: (102-162)/(47-108) Temp: [36 C (96.8 F)-37.5 C (99.5 F)] Temp source: Tympanic (12/29 1000) Pulse: [42-78] Resp: [12-24] SpO2: [98 %-100 %] Height: -- Weight: [48 kg (105 lb 13.1 oz)] BMI (calculated): [18.75] Vitals: 12/30/19 0710 12/30/19 0725 12/30/19 0800 12/30/19 1000 BP: 121/71 126/80 Pulse: (!) 44 (!) 45 (!) 43 57 Resp: 15 15 12 Temp: 36.7 C (98.1 F) 36.8 C (98.3 F) TempSrc: Tympanic Tympanic SpO2: 100% 100% 100% 100% Weight: Height: Intake/Output Summary (Last 24 hours) at 12/28/2019 0914 Last data filed at 12/28/2019 0800 Gross per 24 hour Intake 1415 ml Output 490 ml Net 925 ml General: Patient is awake, opens eyes sometimes spontaneously, unable to follow commands. Mental Status: Consciousness, attention, concentration:impaired. Speech/ Language:impairedto comprehension, fluency, repetition and naming. Global aphasia Fund of knowledge:APPLE Remote and recent memory:APPLE Cranial Nerves: I. Not tested. II.Left gaze preference, able to correct to midline III. IV., . Unable to track fingers, moves eyes spontaneously in all directions, prefers left gaze V.APPLE VII.Right UMN facial droop VIII.APPLE IX., X. XI. XII.APPLE Motor: Tone:right side flaccid Bulk:decreased LUE : 3/5 LLE : 4/5 right upper extremity to painful stimuli : 1/5 RLE : to pain 1-2/5 DTR's: Right Left Bicep 2+ 2+ Triceps 2+ 2+ Brachioradialis 2+ 2+ Patella 2+ 2+ Achilles 1+ 1+ Pathologic reflexes and signs: Babinski:present on right side Cerebellar: Nystagmus: neg, FTN,HTS:APPLE, Tremors: neg Sensory: Withdraws to pain in all extremities right > left Gait:APPLE Lungs: Wheezing heard Cardio: S1, S2 normal Extremities:no cyanosis,clubbing or edema Neck:supple,no carotid bruit,no JVD Abdomen: soft; non-tender; non-distended; normoactive bowel sounds heard LABS Recent Results (from the past 24 hour(s)) POCT GLUCOSE (AUTOMATED) Collection Time: 12/29/19 11:37 AM Result Value Ref Range POCT GLU 108 70 - 110 mg/dL AC PANEL 20 + LACTIC ACID Collection Time: 12/29/19 11:51 AM Result Value Ref Range PH 7.40 7.35 - 7.45 PCO2 41 35 - 45 mmHg PO2 83 80 - 100 mmHg HCO3 25 22 - 26 mEq/L BE 0.8 -3.0 - 3.0 mEq/L THB 14.4 12.0 - 16.0 g/dL %O2HB 94.3 94.0 - 99.0 % %COHB ART 0.8 0.0 - 1.5 % %METHB ART 0.0 (L) 0.4 - 1.5 % VOL%O2 ART 19.1 15.0 - 23.0 % NA 136 135 - 145 mmol/L K+ 4.2 3.5 - 5.0 mmol/L AC CA IONZ 5.00 4.50 - 5.30 mg/dL GLUCOSE 118 (H) 70 - 110 mg/dL LACTIC ACID 0.98 mmol/L BASIC METABOLIC PANEL (NA, K, CL, CO2, GLUCOSE, BUN, CREATININE, CA) Collection Time: 12/30/19 3:24 AM Result Value Ref Range NA 141 135 - 145 mmol/L K 4.0 3.5 - 5.0 mmol/L CL 106 98 - 108 mmol/L CO2 TOTAL 27 23 - 31 mmol/L AGAP 8 2 - 16 BUN 18 7 - 23 mg/dL GLUCOSE 91 70 - 110 mg/dL CREATININE 0.69 0.50 - 1.04 mg/dL CALCIUM 8.6 8.6 - 10.6 mg/dL eGFR Calculation (Non-) 87.4 mL/min/1.73m2 eGFR Calculation () 105.9 mL/min/1.73m2 CBC WITH DIFF Collection Time: 12/30/19 3:24 AM Result Value Ref Range WBC 9.56 4.30 - 11.10 10*3/L RBC 4.21 3.93 - 5.25 10*6/L HGB 13.3 11.6 - 15.0 g/dL HCT 40.4 35.7 - 45.2 % MCV 96.0 (H) 80.6 - 95.5 fL MCH 31.6 25.9 - 32.8 pg MCHC 32.9 31.6 - 35.1 g/dL RDW-SD 42.8 39.0 - 49.9 fL RDW-CV 12.2 12.0 - 15.5 % PLT 210 166 - 358 10*3/L MPV 11.3 9.5 - 12.9 fL NRBC/100 WBC 0.0 0.0 - 10.0 /100 WBCs NRBC x10^3 <0.01 10*3/L GRAN MAT (NEUT) % 69.8 % IMM GRAN % 0.30 % LYMPH % 17.1 % MONO % 10.4 % EOS % 2.1 % BASO % 0.3 % GRAN MAT x10^3(ANC) 6.68 1.88 - 7.09 10*3/uL IMM GRAN x10^3 0.03 0.00 - 0.06 10*3/uL LYMPH x10^3 1.63 1.32 - 3.29 10*3/uL MONO x10^3 0.99 (H) 0.33 - 0.92 10*3/uL EOS x10^3 0.20 0.03 - 0.39 10*3/uL BASO x10^3 0.03 0.01 - 0.07 10*3/uL MAGNESIUM Collection Time: 12/30/19 3:24 AM Result Value Ref Range MAGNESIUM 1.9 1.7 - 2.4 mg/dL RADIOLOGY Xr Chest 1 Vw Result Date: 12/30/2019 New faint left lower lung opacity may represent developing infectious etiology. Preliminary Report Dictated by Resident: Wai Amin I, Isaiah Valentine MD., have reviewed this study and agree with the above report. Xr Chest 1 Vw Result Date: 12/29/2019 No acute cardiopulmonary abnormality. Chronic emphysematous changes. Preliminary Report Dictated by Resident: Wai Amin I, Martin العراقي MD., have reviewed this study and agree with the abovereport. Xr Kub Result Date: 12/29/2019 Appropriate positioning enteric tube. 2. Nonobstructive bowel gas pattern. Preliminary Report Dictated by Resident: Navi Collazo I, Martha Allan MD., have reviewed this study and agree with the above report. ASSESSMENT AND PLAN Funmilayo Mcmillan is a 59 year old female with PMHx of the following stroke risk factors: HTN, CAD s/p PCI, drug abuse, bipolar, PAD, who presented withright side weakness, global aphasia, confusion.LSN:>24hr, NIHSS21. CT headacute-subacute infact of L MCA, CTA head and neckshowed complete occlusion of L cervical ICA and 50% narrowing of right proximal cervical ICA. Mild focal narrowing of mid basilar artery, some collateral flow over distal MCA.Case discussed with dr Beach and agreed no need for intervention as patient has good collaterals and passed window of intervention. MRI brain showed left MCA territory with no evidence of hemorrhagic transformation. Patient continuedto be encephalopathic, cEEG showed no seizures. 1. Neuro Subacute-acute ischemic stroke of L MCA, mid M1 occlusion Right gaze, concern for seizure resolved Complete occlusion of L ICA Hx of stroke? Toxic metabolic encephalopathy 2/2 medications improving Hx of cocaine abuse (UDS +ve cocaine) Plan: Transfer to floor Neurochecks Q1H Telemetry BP, SBP 120-160, off of cardene Avoid hyperthermia, pain and constipation C/w ASA Plavix held since 12/27 for PEG tube placement, planned for today Atorvastatin 40 mg QHS Fall precautions Consulted PT/OT/ Speech pathology Avoid BB to control BP C/w amlodipine 5 mg daily and lisinopril 10 mg BID for BP control D/c cEEG C/w Keppra 750 mg BID Risperdal 0.5 mg BID for agitation 2. Cardiac #CAD s/p PCI # HTN # Multiple PVC # HFrEF ( EF 40-45%) EKG: sinus bradycardia with PVC's Troponin: negative Plan: SBP goal:120-160 C/w lisinopril 10 mg BID C/w amlodipine 5 mg daily Cardiology consulted, appreciate recs Keep K >4, Mg > 2 Plan for ischemic workup after stable from neurological standpoint 3. Pulmonary # COPD # Increased secretions CXR: chronic emphysematous changes Plan: Monitor respiratory status O2 per protocol Duonebs QID and mucomyst Q6H Scopolamine patch for increased secretions. Received one dose of IV glycopyrrolate 4. GI Failed swallow test Moderate malnutrition S/p NGT Nutrition: Enteral Rate: 60ml/hr. Last BM: na Plan: Jevity of feeds, held for procedure Famotidine for GI ppx PEG tube placement today 5. Renal Oliguria Normal BUN/Creatinine Hypokalemia repleted Electrolytes NA 139/3.1, BUN: 21, Creatinine: 0.64 Rogers: in place Plan: Monitor I/O - IV fluids at 75 cc/hr - BMP, Mg daily 6. ID # Concern for aspiration # New left lung opacity, concern for infection Temp (24hrs), Av.7 C (98.1 F), Min:36.7 C (98 F), Max:37.1 C (98.8 F) ABx: zosyn Plan: Monitor temp curve Possible aspiration, started on Zosyn 3.375 gm Q6H day 2 today 7. Endo No active issues Monitor BG Hgb A1c 5.2 IV access: PIV x 2 Rogers: in place Antibiotic(s): not indicated - GI Prophylaxis: famotidine - DVT Prophylaxis: heparin Discussed and seen with Dr. Richards, Neurology Faculty Ata Weiss MD, PGY-3, Neurology Pager: Associated attestation - Leland Richards MD - 12/31/2019 7:52 AM CDTI personally examined this patient- named-Ms Funmilayo Mcmillan on 12/30/[address] Berumen 's resident note with the following addition(s): as documented in my own note. I actively participated in the decision-making process. Please see the resident's note for additional details. Leland Richards MD Neurocritical Care Unit Attending Elin Wolf - 12/29/2019 5:46 PM CDT Medical Nutrition Therapy Progress Note Subjective: EN on hold at time of visit - PEG placement scheduled for today. 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 TF recommendations below - unchanged from prior note. Patient Active Problem List Diagnosis PAD (peripheral artery disease) Chest pain Coronary artery disease without angina pectoris HTN (hypertension) Acute ischemic left MCA stroke Cocaine abuse At risk for seizures E44.0 Moderate protein calorie malnutrition Respiratory distress Medications: Current Facility-Administered Medications: acetylcysteine (MUCOMYST) 200 mg/mL (20 %) solution 200 mg, 1 mL, Inhalation, Q6H, Abhishek Berumen MBBS chlorhexidine (PERIDEX) 0.12 % mouthwash 15 mL, 15 mL, Oral (Swish And Spit Out), Q6H, ThAbhishek coombs MBBS, 15 mL at 12/29/19 1715 ipratropium-albuteroL (DUONEB) 0.5 mg-3 mg(2.5 mg base)/3 mL nebulizer solution 3 mL, 3 mL, Inhalation, QID, Abhishek Berumen MBBS piperacillin-tazobactam (ZOSYN) 3.375 g in NaCl 0.9% (NS) 100 mL MINI-BAG, 3.375 g, IV Piggyback, Q6H ABX, Abhishek Berumen MBBS, 3.375 g at 12/29/19 1715 Saline Bubble Study, 6 mL, Injection, SEE-INSTRUCTIONS, Michelle Avery MD, 6 mL at 12/29/19 1500 Saline Bubble Study, 6 mL, Injection, SEE-INSTRUCTIONS, Michelle Avery MD, 6 mL at 12/29/19 1500 levETIRAcetam (KEPPRA) 100 mg/mL oral solution 750 mg, 750 mg, Enteral, BID, Abhishek Berumen MBBS, 750 mg at 12/29/19 0929 risperiDONE (RISPERDAL) tablet 1 mg, 1 mg, Enteral, BID, Leland Richards MD, 1 mg at 12/29/19 09 scopolamine transdermal (TRANSDERM-SCOP) patch 1.5 mg, 1.5 mg, Topical, Q72H, Abhishek Berumen MBBS, 1.5 mg at 12/28/19 1326 Polyethylene Glycol 3350 (MIRALAX) powder 17 g, 17 g, Enteral, BID, Leland Richards MD, 17 g at 12/29/19 0929 sennosides-docusate sodium (SENOKOT-S) 8.6-50 mg per tablet 1 tablet, 1 tablet, Enteral, BID, Leland Richards MD, 1 tablet at 12/29/19 0929 amLODIPine (NORVASC) tablet 5 mg, 5 mg, Enteral, DAILY, Abhishek Berumen MBBS, 5 mg at 12/29/19 0929 hydralAZINE (APRESOLINE) injection 10 mg, 10 mg, Slow IV Push, Q6HPRN, Abhishek Berumen MBBS, 10 mg at 12/27/19 0521 lisinopriL (PRINIVIL,ZESTRIL) tablet 10 mg, 10 mg, Enteral, BID, Abhishek Berumen MBBS, 10 mg at 12/29/19 0929 aspirin EC tablet 81 mg, 81 mg, Enteral, DAILY, Pedro Pablo Newsome MBBS, Stopped at 12/29/19 0900 atorvastatin (LIPITOR) tablet 40 mg, 40 mg, Enteral, QHS, Pedro Pablo Newsome MBBS, 40 mg at 12/28/19 2100 famotidine (PEPCID) 40 mg/5 mL (8 mg/mL) suspension 20 mg, 20 mg, Enteral, BID, Pedro Pablo Newsome MBBS, 20 mg at 12/29/19 0929 heparin (porcine) injection 5,000 Units, 5,000 Units, Subcutaneous, Q12H, Pedro Pablo Newsome MBBS, Stopped at 12/29/19 0800 Lab and Medical Test Results: 12/27/2019 03:29 12/28/2019 03:19 12/29/2019 04:38 WBC x10^3 8.97 8.06 11.06 RBC x10^6 4.98 4.29 4.48 HGB 15.8 (H) 13.4 13.8 HCT 46.0 (H) 40.5 41.7 MCV 92.4 94.4 93.1 MCH 31.7 31.2 30.8 MCHC 34.3 33.1 33.1 12/26/2019 04:05 12/27/2019 03:29 12/28/2019 02:37 12/29/2019 04:38 NA 137 137 139 135 K 3.7 3.8 3.1 (L) 4.2 CL 108 106 113 (H) 104 CO2 TOTAL 21 (L) 23 23 26 AGAP 8 8 3 5 BUN 10 18 21 16 GLUCOSE 107 113 (H) 107 102 CREATININE 0.57 0.69 0.64 0.60 eGFR CALCULATION (non ) 108.9 87.4 95.3 102.7 CALCIUM 8.4 (L) 9.2 7.6 (L) 9.2 MAGNESIUM 1.8 1.9 1.8 TROPONIN I 0.013 NT-proBNP 254 (H) Intake/Output Summary (Last 24 hours) at 12/29/2019 1746 Last data filed at 12/29/2019 1700 Gross per 24 hour Intake Output 1585 ml Net -1585 ml Weight History: Wt Readings from Last 10 Encounters: 12/28/19 48 kg (105 lb 13.1 oz) 12/16/19 51.3 kg (113 lb 3.2 oz) 12/13/19 51.4 kg (113 lb 6.4 oz) 02/01/19 53.3 kg (117 lb 8 oz) 01/25/19 54.3 kg (119 lb 12.8 oz) 11/14/18 51.3 kg (113 lb) 10/01/18 51.6 kg (113 lb 12.8 oz) 07/13/18 52.4 kg (115 lb 8 oz) 07/01/18 52.6 kg (116 lb) 01/04/18 53.2 kg (117 lb 4.8 oz) Inflammatory Markers: N/A Current Dietary Order(s): Jevity 1.2 Itz (1.2 kcal/mL, protein 18.5% of kcal) Estimated Daily Nutritional Needs: Calories: 7344-9748 kcal/day = 30-35 kcal/kg current wt Protein: 38-58 g/day = 0.8-1.2 g/kg current wt Fluid: 8597-6943 mL/day or per MD; adjust per acute needs Nutrition Diagnosis: Moderate protein calorie malnutrition related to suspected inadequate oral intake d/t lifestyle choices as evidenced by moderate fat loss to orbital region, moderate muscle loss to quadriceps and temporal regions, and 7.1% weight loss x 1 week. Interventions: Recommend enteral nutrition with Jevity 1.2 at goal of 55 mL/hr EN will provide 1584 kcal, 73 g protein, 1065 ml free water Initiate at 10-20mL/hr and advance rate 10-20mL/hr every 8-12 hours ? If receiving IVF, recommend a minimum of 30 mL water flush Q4H to contribute to free water needs and tube patency maintenance. ? If no IVF, recommend 85 mL water flush Q4H to help meet fluid needs ? (Tf+flushes will provide 1575 mL water) Once patient establishes tolerance to continuous feeds, consider changing to bolus feeds. ? 5.5 cartons of Jevity 1.2 per day (1320 mL) Ex: 2 cans @ 0800, 1 cans @ 1200, 1 cans @ 1700, 1.5 cans @ 2000 For best tolerance, formula at room temperature. Suggest bolusing slowly over >15-30 minutes. Edroy or longer bolus time may be needed per pt's individual tolerance/preference Fluid provided by formula alone at goal above is not sufficient to maintain hydration. Suggest 65mL free water before and after each bolus feed (assuming 4 bolus feeds per day) or additional water per MD discretion. Continue bowel regimen Goals: 1. Meet >75% of nutrition needs with EN. Monitoring and Evaluation: A registered dietitian will follow up by 01/02. Please call with any questions or concerns, thank-you. D/C Planning: See bolus recommendations above. Evelyn Wolf MS, RD, LD Clinical Dietitian Office: [id number] Keshia Urbano, WEB CONTENT EXECUTIVE - 12/29/2019 5:08 PM [facility] LANGUAGE PATHOLOGY Daily Progress Note - 12/29/2019 [id number] Funmilayo Mcmillan : 1960 Age: [age] year old Sex: female SUBJECTIVE: Patient awake upon arrival. She demonstrated increased alertness this date, orienting attention to her spoken name. However, with no attempts to communicate and did not follow commands. Secretion management appeared somewhat improved. OBJECTIVE: Funmilayo Mcmillan was seen for 1 WEB CONTENT EXECUTIVE treatment session/s on this date. Treatment was provided due to suspected dysphagia. Patient is a 59 year old female admitted for AMS, aphasia and R sided weakness with PMH significant for HTN, CAD s/p PCI, drug abuse (hx of cocaine abuse), bipolar, PAD. NIHSS21. MRI Brain demonstrated large infarct in left MCA territory without hemorrhagic transformation. Planned for PEG placement. Progress on short term goals was as follows: Swallowing: - Patient will participate in on-going swallow re-evaluation at the bedside to determine readiness/safety for PO vs need/timing for objective swallow assessment: While her secretion management appears somewhat improved, vocal quality/breathing during intermittent grunts continues to be wet/gurgled which may indicate secretions are moving passively to the pharynx. Pt given single ice chip trials. Pt observed to cough after 2/3 trials. (continue goal) Verbal Expression: not addressed this date d/t time constraints - Patient will communicate basic wants/needs via any language modality (i.e. naming, gesturing, picture communication board) with 80% accuracy and moderate cues. - Patient will recite automatic speech sequences (i.e. counting, days of week, etc) with moderate cues 80% of the time. Auditory Comprehension: not addressed this date d/t time constraints - Patient will answer simple yes/no questions with 80% accuracy. - Patient will follow one-step commands using body parts with moderate cues 80% of the time. ASSESSMENT: Funmilayo Mcmillan demonstrated minimal progress on swallowing goals. She continues to present with oral and suspected pharyngeal dysphagia in the setting of acute CVA. Pt observed to cough after 2/3ice chip trials. Vocal quality/breathing during intermittent grunts appeared to be wet/gurgled suspect secretions to be moving passively to the pharynx, however, aspiration cannot be r/o nor confirmed w/o instrumental imaging. Patient is at suspected high risk for aspiration and does not appear safe nor functional to initiate a po diet. Suspect patient to benefit from continued use of short-term FACUNDO with strict oral hygiene care. Per nursing, patient also to likely have PEG placed in the coming days. While speech-language goals not addressed this date, patient does demonstrate slightly improved alertness. However, still unable to follow simple commands and with no attempts to communicate despite max cues. She is unsafe to be on her own and take care of herself d/t inability to make her wants/needs known. Pt would benefit from continued WEB CONTENT EXECUTIVE services while in-house and after discharge. Should patient discharge home, recommend 24/7 supervision. PLAN: 1. Recommend patient remain NPO and continue with alternative means of nutrition/hydration (DHT in place). 2. Recommend elevated head of bed and frequent, thorough oral hygiene care due to suspected high risk for aspiration. 3. Recommend WEB CONTENT EXECUTIVE therapy 2-5x/wk for 15-45 min/session while in-house to address the above goals. 4. Discharge recommendation: continued WEB CONTENT EXECUTIVE therapy at d/c facility; 24/7 supervision/assist Keshia Lugo M.S[facility]-WEB CONTENT EXECUTIVE Speech-Language Pathologist Office: [phone] Pager: [phone] Abhishek Berumen MBBS - 12/29/2019 3:59 PM CDT [facility] PROGRESS NOTE/ ACCEPTANCE NOTE DATE OF SERVICE: 12/29/2019 15:59 Day of Hospitalization: 5 CHIEF COMPLAINT: aphasia, right sided weakness, AMS Code status: Addressed : FULL ( daughter : Dwight Devi) 24-HOUR EVENTS: Rapid called on floor due to increased secretions and respiratory distress. Hemodynamically stable however given respiratory distress and needing repeated suction, transferred to ICU. Echo with contrast : Mid to distal septal, mid to distal anterolateral and apical wall severe hypokinesis, cardiology signed off, plan for ischemic stroke once recovered from neurological issues SUBJECTIVE: Opens eyes to name, unable to follow commands. STROKE DOCUMENTATION NIH STROKE SCALE NIH STROKE SCALE LOC: 1 Not Alert: Arousable With Minor Stimulation to Obey, Answer or Respond LOC QUESTIONS: 2 Answers Neither Question Correctly LOC COMMANDS: 2 Performs Neither Task Correctly BEST GAZE: 1 Partial Gaze Palsy VISUAL: 0 No Visual Loss FACIAL PALSY: 2 Partial Paralysis MOTOR ARM-LEFT: 2 Some Effort Against [place] MOTOR ARM-RIGHT: 4 No Movement MOTOR LEG-LEFT: 1 Drift MOTOR LEG-RIGHT: 3 No Effort Against [place] LIMB ATAXIA: 0 Absent SENSORY: 0 Normal BEST LANGUAGE: 3 Mute, Global Aphasia DYSARTHRIA: UN Intubated or Other Physical Barrier, Explain EXTINCTION AND INATTENTION (FORMERLY NEGLECT): 0 No Abnormalty STROKE SCALE INTERVAL: Day 4 STROKE SCALE TOTAL SCORE: 21 HOSPITAL MEDICATIONS Current Facility-Administered Medications Medication Dose Route Frequency Last Rate Last Dose chlorhexidine (PERIDEX) 0.12 % mouthwash 15 mL 15 mL Oral (Swish And Spit Out) Q6H 15 mL at 12/29/19 1333 ipratropium-albuteroL (DUONEB) 0.5 mg-3 mg(2.5 mg base)/3 mL nebulizer solution 3 mL 3 mL Inhalation QID piperacillin-tazobactam (ZOSYN) 3.375 g in NaCl 0.9% (NS) 100 mL MINI-BAG 3.375 g IV Piggyback Q6H ABX 3.375 g at 12/29/19 1333 levETIRAcetam (KEPPRA) 100 mg/mL oral solution 750 mg 750 mg Enteral BID 750 mg at 12/29/19928 risperiDONE (RISPERDAL) tablet 1 mg 1 mg Enteral BID 1 mg at 12/29/19928 scopolamine transdermal (TRANSDERM-SCOP) patch 1.5 mg 1.5 mg Topical Q72H 1.5 mg at 12/28/19 1326 Polyethylene Glycol 3350 (MIRALAX) powder 17 g 17 g Enteral BID 17 g at 12/29/19928 sennosides-docusate sodium (SENOKOT-S) 8.6-50 mg per tablet 1 tablet 1 tablet Enteral BID 1 tablet at 12/29/19928 amLODIPine (NORVASC) tablet 5 mg 5 mg Enteral DAILY 5 mg at 12/29/19928 hydralAZINE (APRESOLINE) injection 10 mg 10 mg Slow IV Push Q6HPRN 10 mg at 12/27/19 0521 lisinopriL (PRINIVIL,ZESTRIL) tablet 10 mg 10 mg Enteral BID 10 mg at 12/29/19928 aspirin EC tablet 81 mg 81 mg Enteral DAILY Stopped at 12/29/19 0900 atorvastatin (LIPITOR) tablet 40 mg 40 mg Enteral QHS 40 mg at 12/28/19 2100 famotidine (PEPCID) 40 mg/5 mL (8 mg/mL) suspension 20 mg 20 mg Enteral BID 20 mg at heparin (porcine) injection 5,000 Units 5,000 Units Subcutaneous Q12H Stopped at 12/29/19 0800 PHYSICAL EXAM BP: (102-201)/(62-113) Temp: [36.8 C (98.3 F)-37.8 C (100 F)] Temp source: Tympanic (12/28 1330) Pulse: [60-105] Resp: [17-23] SpO2: [96 %-100 %] Height: -- Weight: -- BMI (calculated): -- Vitals: 12/29/19 0856 12/29/19 1330 12/29/19 1400 12/29/19 1500 BP: 102/63 105/62 127/83 Pulse: 82 64 60 76 Resp: 18 23 22 19 Temp: 37.3 C (99.1 F) TempSrc: Tympanic SpO2: 96% 100% 100% 100% Weight: Height: Intake/Output Summary (Last 24 hours) at 12/28/2019 0914 Last data filed at 12/28/2019 0800 Gross per 24 hour Intake 1415 ml Output 490 ml Net 925 ml General: Patient is awake, opens eyes sometimes spontaneously, unable to follow commands. Mental Status: Consciousness, attention, concentration:impaired. Speech/ Language:impairedto comprehension, fluency, repetition and naming. Global aphasia Fund of knowledge:APPLE Remote and recent memory:APPLE Cranial Nerves: I. Not tested. II.Left gaze preference, able to correct to midline III. IV., . Unable to track fingers, moves eyes spontaneously in all directions, prefers left gaze V.APPLE VII.Right UMN facial droop VIII.APPLE IX., X. XI. XII.APPLE Motor: Tone:right side flaccid Bulk:decreased LUE : 3/5 LLE : 4/5 right upper extremity to painful stimuli : 1/5 RLE : to pain 1-2/5 DTR's: Right Left Bicep 2+ 2+ Triceps 2+ 2+ Brachioradialis 2+ 2+ Patella 2+ 2+ Achilles 1+ 1+ Pathologic reflexes and signs: Babinski:present on right side Cerebellar: Nystagmus: neg, FTN,HTS:APPLE, Tremors: neg Sensory: Withdraws to pain in all extremities right > left Gait:APPLE Lungs: Wheezing heard Cardio: S1, S2 normal Extremities:no cyanosis,clubbing or edema Neck:supple,no carotid bruit,no JVD Abdomen: soft; non-tender; non-distended; normoactive bowel sounds heard LABS Recent Results (from the past 24 hour(s)) BASIC METABOLIC PANEL (NA, K, CL, CO2, GLUCOSE, BUN, CREATININE, CA) Collection Time: 12/29/19 4:38 AM Result Value Ref Range NA 135 135 - 145 mmol/L K 4.2 3.5 - 5.0 mmol/L CL 104 98 - 108 mmol/L CO2 TOTAL 26 23 - 31 mmol/L AGAP 5 2 - 16 BUN 16 7 - 23 mg/dL GLUCOSE 102 70 - 110 mg/dL CREATININE 0.60 0.50 - 1.04 mg/dL CALCIUM 9.2 8.6 - 10.6 mg/dL eGFR Calculation (Non-) 102.7 mL/min/1.73m2 eGFR Calculation () 124.4 mL/min/1.73m2 CBC WITH DIFF Collection Time: 12/29/19 4:38 AM Result Value Ref Range WBC 11.06 4.30 - 11.10 10*3/L RBC 4.48 3.93 - 5.25 10*6/L HGB 13.8 11.6 - 15.0 g/dL HCT 41.7 35.7 - 45.2 % MCV 93.1 80.6 - 95.5 fL MCH 30.8 25.9 - 32.8 pg MCHC 33.1 31.6 - 35.1 g/dL RDW-SD 42.3 39.0 - 49.9 fL RDW-CV 12.3 12.0 - 15.5 % PLT 218 166 - 358 10*3/L MPV 11.1 9.5 - 12.9 fL NRBC/100 WBC 0.0 0.0 - 10.0 /100 WBCs NRBC x10^3 <0.01 10*3/L GRAN MAT (NEUT) % 78.0 % IMM GRAN % 0.20 % LYMPH % 10.3 % MONO % 10.7 % EOS % 0.5 % BASO % 0.3 % GRAN MAT x10^3(ANC) 8.63 (H) 1.88 - 7.09 10*3/uL IMM GRAN x10^3 <0.03 0.00 - 0.06 10*3/uL LYMPH x10^3 1.14 (L) 1.32 - 3.29 10*3/uL MONO x10^3 1.18 (H) 0.33 - 0.92 10*3/uL EOS x10^3 0.06 0.03 - 0.39 10*3/uL BASO x10^3 0.03 0.01 - 0.07 10*3/uL MAGNESIUM Collection Time: 12/29/19 4:38 AM Result Value Ref Range MAGNESIUM 1.8 1.7 - 2.4 mg/dL POCT GLUCOSE (AUTOMATED) Collection Time: 12/29/19 11:37 AM Result Value Ref Range POCT GLU 108 70 - 110 mg/dL AC PANEL 20 + LACTIC ACID Collection Time: 12/29/19 11:51 AM Result Value Ref Range PH 7.40 7.35 - 7.45 PCO2 41 35 - 45 mmHg PO2 83 80 - 100 mmHg HCO3 25 22 - 26 mEq/L BE 0.8 -3.0 - 3.0 mEq/L THB 14.4 12.0 - 16.0 g/dL %O2HB 94.3 94.0 - 99.0 % %COHB ART 0.8 0.0 - 1.5 % %METHB ART 0.0 (L) 0.4 - 1.5 % VOL%O2 ART 19.1 15.0 - 23.0 % NA 136 135 - 145 mmol/L K+ 4.2 3.5 - 5.0 mmol/L AC CA IONZ 5.00 4.50 - 5.30 mg/dL GLUCOSE 118 (H) 70 - 110 mg/dL LACTIC ACID 0.98 mmol/L RADIOLOGY Xr Chest 1 Vw Result Date: 12/29/2019 No acute cardiopulmonary abnormality. Chronic emphysematous changes. Preliminary Report Dictated by Resident: Wai Amin I, Martin العراقي MD., have reviewed this study and agree with the abovereport. ASSESSMENT AND PLAN Funmilayo Mcmillan is a 59 year old female with PMHx of the following stroke risk factors: HTN, CAD s/p PCI, drug abuse, bipolar, PAD, who presented withright side weakness, global aphasia, confusion.LSN:>24hr, [id number]. CT headacute-subacute infact of L MCA, CTA head and neckshowed complete occlusion of L cervical ICA and 50% narrowing of right proximal cervical ICA. Mild focal narrowing of mid basilar artery, some collateral flow over distal MCA.Case discussed with dr Beach and agreed no need for intervention as patient has good collaterals and passed window of intervention. MRI brain showed left MCA territory with no evidence of hemorrhagic transformation. Patient continuedto be encephalopathic, cEEG showed no seizures. 1. Neuro Subacute-acute ischemic stroke of L MCA, mid M1 occlusion Right gaze, concern for seizure resolved Complete occlusion of L ICA Hx of stroke? Toxic metabolic encephalopathy 2/2 medications improving Hx of cocaine abuse (UDS +ve cocaine) Plan: Neurochecks Q1H Telemetry BP, SBP 120-160, off of cardene Avoid hyperthermia, pain and constipation C/w ASA Plavix held since 12/27 for PEG tube placement, planned for tomorrow Atorvastatin 40 mg QHS Fall precautions Consulted PT/OT/ Speech pathology Avoid BB to control BP C/w amlodipine 5 mg daily and lisinopril 10 mg BID for BP control D/c cEEG C/w Keppra 750 mg BID Risperdal 1 mg BID for agitation 2. Cardiac #CAD s/p PCI # HTN # Multiple PVC # HFrEF ( EF 40-45%) EKG: sinus bradycardia with PVC's Troponin: negative Plan: SBP goal:120-160 C/w lisinopril 10 mg BID C/w amlodipine 5 mg daily Cardiology consulted, appreciate recs Keep K >4, Mg > 2 Plan for ischemic workup after stable from neurological standpoint 3. Pulmonary # COPD # Increased secretions CXR: chronic emphysematous changes Plan: Monitor respiratory status O2 per protocol Duonebs QID and mucomyst Q6H Scopolamine patch for increased secretions. 4. GI Failed swallow test Moderate malnutrition S/p NGT Nutrition: Enteral Rate: 60ml/hr. Last BM: na Plan: Jevity of feeds Famotidine for GI ppx PEG tube placement tomorrow 5. Renal Oliguria Normal BUN/Creatinine Hypokalemia repleted Electrolytes NA 139/3.1, BUN: 21, Creatinine: 0.64 Rogers: in place Plan: Monitor I/O - IV fluids at 75 cc/hr - BMP, Mg daily 6. ID # Concern for aspiration Temp (24hrs), Av.7 C (98.1 F), Min:36.7 C (98 F), Max:37.1 C (98.8 F) Cultures: not indicated ABx: zosyn Plan: Monitor temp curve Possible aspiration, started on Zosyn 3.375 gm Q6H 7. Endo No active issues Monitor BG Hgb A1c 5.2 IV access: PIV x 2 Rogers: in place Antibiotic(s): not indicated - GI Prophylaxis: famotidine - DVT Prophylaxis: heparin Discussed and seen with Dr. Richards, Neurology Faculty Ata Weiss MD, PGY-3, Neurology Pager: Hospital Course : Funmilayo Mcmillan is a 59 year old unknown handednesscaucasian female with PMHX of bipolar, depression, HTN, CAD s/p PCI, , PAD, stroke?, TB, drug abuse (crack)who presented with CC of AMS, right side weakness, aphasia. LSN : unknown, At OSH ER, BP 167/104, HR 67, afebrile, RR20, UDS +ve cocaine and HTC, UA negative, TSH wnl, LFT wnl, bmp wnl, cbc mildly elevated wbc of 12.3, trop negative. CTH showed acute-subacute L MCA infact, transferred to [facility]. CT angiogram head and neck showed complete occlusion of left cervical ICA from just distal to the bulb through the supraclinoid segment at the level of the ophthalmic artery, mild to moderate narrowing of basilar artery. Required cardene for BP managament later weaned off. Developed right gaze preference on 12/24 loaded with Keppra and started on maintenance Keppra. CEEG showed no electrographic seizures or epileptiform discharges. MRI Brain demonstrated large infarct in left MCA territory without hemorrhagic transformation. TTE showed EF 40-45% with wall motion abnormalities. Cardiology consulted for reduced EF. Repeat focused echo with worsened EF (30-35%) and anterolateral/apical hypokinesis. Plan for PEG tube placement, plavix held. Transferred to floor 12/27 afternoon, no acute events overnight. However, on 12/28 continued to have copious secretions requiring frequent suctioning. MD notified at 11:54 AM and transferred back to ICUfor higher level of care. Associated attestation - Leland Richards MD - 12/29/2019 5:50 PM CDTI personally examined this patient- named-Ms Funmilayo Mcmillan on 12/29/[address] Berumen 's resident note with the following addition(s): as documented in my own note. I actively participated in the decision-making process. Please see the resident's note for additional details. Leland Richards MD Neurocritical Care Unit Attending Pedro Pablo Smith [facility] - 12/29/2019 2:28 PM CDT Cardiology Progress Note Date of Service: 12/29/2019 14:28 Chief Complaint: AMS, right sided weakness, and aphasia, cardiology consulted for new drop in EF 24-HOUR EVENTS: Remains non interactive. hemodynamcs are stable. SUBJECTIVE: N/a PHYSICAL EXAM: Vitals: 12/29/19 0850 12/29/19 0856 12/29/19 1330 12/29/19 1400 BP: 102/63 105/62 Pulse: 80 82 64 60 Resp: 18 18 23 22 Temp: 37.3 C (99.1 F) TempSrc: Tympanic SpO2: 96% 96% 100% 100% Weight: Height: Intake/Output Summary (Last 24 hours) at 12/29/2019 1428 Last data filed at 12/29/2019 1330 Gross per 24 hour Intake Output 1475 ml Net -1475 ml Physical Exam Constitutional: Appearance: She is ill-appearing. Eyes: Pupils: Pupils are equal, round, and reactive to light. Cardiovascular: Rate and Rhythm: Normal rate and regular rhythm. Pulmonary: Effort: Pulmonary effort is normal. Abdominal: General: Abdomen is flat. Palpations: Abdomen is soft. Musculoskeletal: Right lower leg: No edema. Left lower leg: No edema. Neurological: Comments: Unable to track Non interactive Right sided adeola-neglect/weakness LABS/IMAGING - reviewed, pertinent results as below: ASSESSMENT/PLAN Reduced EF on echocardiogram Left MCAstroke Acute encephalopathy and aphasia likely 2/2 left MCA stroke CAD s/p LAD stent in 2013 Cocaine and THC use HTN Hx of peripheral arterial disease Patient presented with AMS, right sided weakness, and aphasia. CT and MRI showed left acute-subacuteleft MCA infarct. Cardiology was consulted due to new TTE finding of reduced EF (40-45%) and hypokinesis of the inferoseptal and anteroseptal segments.Troponin 0.017->0.013. EKG with left bundle branch block and without significant change from previous EKG. Focused TTE with contrast today shows severely depressed EF 30-35%, given the patient poor prognosisfor neurology stand point would not consider further ischemic work up at this time Recommendations: - Continue aspirin, plavix, atorvastatin, lisinopril, and amlodipine. -hx of cocaine abuse limits use of selective BB, can consider low dose coreg 3.125 (non selective BB) . Can titrate up if BP tolerates - Keep K>4 and Mg >2 -if recovers from neuro stand point, please contact us and will pursue LHC/ ischemic work up - Cardiology service will sign off at this time. Thank you for involving us in the care of this patient. Please fell free to call us with questions or concerns. Pedro Pablo Smith MD lab specialist Phone#:[phone] Pager#:[phone] END OF DAILY PROGRESS NOTE CURRENT MEDICATIONS - reviewed. Current Facility-Administered Medications Medication Dose Route Frequency Last Rate Last Dose chlorhexidine (PERIDEX) 0.12 % mouthwash 15 mL 15 mL Oral (Swish And Spit Out) Q6H 15 mL at 12/29/19 1333 ipratropium-albuteroL (DUONEB) 0.5 mg-3 mg(2.5 mg base)/3 mL nebulizer solution 3 mL 3 mL Inhalation QID piperacillin-tazobactam (ZOSYN) 3.375 g in NaCl 0.9% (NS) 100 mL MINI-BAG 3.375 g IV Piggyback Q6H ABX 3.375 g at 12/29/19 1333 levETIRAcetam (KEPPRA) 100 mg/mL oral solution 750 mg 750 mg Enteral BID 750 mg at 12/29/19 0929 risperiDONE (RISPERDAL) tablet 1 mg 1 mg Enteral BID 1 mg at 12/29/19 0929 scopolamine transdermal (TRANSDERM-SCOP) patch 1.5 mg 1.5 mg Topical Q72H 1.5 mg at 12/28/19 1326 Polyethylene Glycol 3350 (MIRALAX) powder 17 g 17 g Enteral BID 17 g at 12/29/19 0929 sennosides-docusate sodium (SENOKOT-S) 8.6-50 mg per tablet 1 tablet 1 tablet Enteral BID 1 tablet at 12/29/19 0929 amLODIPine (NORVASC) tablet 5 mg 5 mg Enteral DAILY 5 mg at 12/29/19 0929 hydralAZINE (APRESOLINE) injection 10 mg 10 mg Slow IV Push Q6HPRN 10 mg at 12/27/19 0521 lisinopriL (PRINIVIL,ZESTRIL) tablet 10 mg 10 mg Enteral BID 10 mg at 12/29/19 0929 aspirin EC tablet 81 mg 81 mg Enteral DAILY Stopped at 12/29/19 0900 atorvastatin (LIPITOR) tablet 40 mg 40 mg Enteral QHS 40 mg at 12/28/19 2100 famotidine (PEPCID) 40 mg/5 mL (8 mg/mL) suspension 20 mg 20 mg Enteral BID 20 mg at heparin (porcine) injection 5,000 Units 5,000 Units Subcutaneous Q12H Stopped at 12/29/19 0800 Associated attestation - John White MD - 12/29/2019 3:18 PM CDTI saw and examined the patient today and agree with the fellow's note as written by Dr. Smith. I actively participated in the decision-making process. Please see the fellow's note for additional details. Patient remains stable from cardiac standpoint. Would recommend to start her on medical therapy for systolic heart failure. Invasive cardiac workup should be considered once her neuro status improves. Cardiology will sign off at this time. Please feel free to call for any questions. John White MD, [facility] Web Specialist Division of Cardiology [facility].Thomas Desai MD - 12/29/2019 12:51 PM CDT Stroke Service Progress/Transfer Note DATE OF SERVICE: 12/29/2019 13:04 Day of Hospitalization: 5 CHIEF COMPLAINT: aphasia, right sided weakness, AMS Code status: not addressed: presumed full Hospital Course : Funmilayo Mcmillan is a 59 year old unknown handedness female with PMHX of bipolar, depression, HTN, CAD s/p PCI, , PAD, stroke?, TB, drug abuse (crack) who presented with CC of AMS, right side weakness, aphasia. LSN : unknown, At OSH ER, BP 167/104, HR 67, afebrile, RR20, UDS +ve cocaine and HTC, UA negative, TSH wnl, LFT wnl, bmp wnl, cbc mildly elevated wbc of 12.3, trop negative. CTHshowed acute-subacute L MCA infact, transferred to [facility]. CT angiogram head and neck showed complete occlusion of left cervical ICA from just distal to the bulb through the supraclinoid segment at the level of the ophthalmic artery, mild to moderate narrowing of basilar artery. Required cardene for BP managament later weaned off. Developed right gaze preference on 12/24 loaded with Keppra and started on maintenance Keppra. CEEG showed no electrographic seizures or epileptiform discharges. MRI Brain demonstrated large infarct in left MCA territory without hemorrhagic transformation. TTE showed EF 40-45% with wall motion abnormalities. Cardiology consulted for reduced EF. Repeat focused echo with worsened EF (30-35%) and anterolateral/apical hypokinesis. Plan for PEG tube placement, plavix held. Transferred to floor 12/27 afternoon, no acute events overnight. However, on 12/28 continued to have copious secretions requiring frequent suctioning. MD notified at 11:54 AM and transferred back to ICU for higher level of care. 24-HOUR EVENTS: Transferred to floor from NCCU Increased secretions, needing frequent suctioning SUBJECTIVE: Opens eyes in response to stimulation, no purposeful movements. STROKE DOCUMENTATION NIH STROKE SCALE NIH STROKE SCALE LOC: 1 Not Alert: Arousable With Minor Stimulation to Obey, Answer or Respond LOC QUESTIONS: 2 Answers Neither Question Correctly LOC COMMANDS: 2 Performs Neither Task Correctly BEST GAZE: 1 Partial Gaze Palsy VISUAL: 0 No Visual Loss FACIAL PALSY: 2 Partial Paralysis MOTOR ARM-LEFT: 2 Some Effort Against [place] MOTOR ARM-RIGHT: 4 No Movement MOTOR LEG-LEFT: 1 Drift MOTOR LEG-RIGHT: 3 No Effort Against [place] LIMB ATAXIA: 0 Absent SENSORY: 0 Normal BEST LANGUAGE: 3 M[place], Global Aphasia DYSARTHRIA: UN Intubated or Other Physical Barrier, Explain EXTINCTION AND INATTENTION (FORMERLY NEGLECT): 0 No Abnormalty STROKE SCALE INTERVAL: Day 4 STROKE SCALE TOTAL SCORE: 21 HOSPITAL MEDICATIONS Current Facility-Administered Medications Medication Dose Route Frequency Last Rate Last Dose chlorhexidine (PERIDEX) 0.12 % mouthwash 15 mL 15 mL Oral (Swish And Spit Out) Q6H ipratropium-albuteroL (DUONEB) 0.5 mg-3 mg(2.5 mg base)/3 mL nebulizer solution 3 mL 3 mL Inhalation QID piperacillin-tazobactam (ZOSYN) 3.375 g in NaCl 0.9% (NS) 100 mL MINI-BAG 3.375 g IV Piggyback Q6H ABX levETIRAcetam (KEPPRA) 100 mg/mL oral solution 750 mg 750 mg Enteral BID 750 mg at 12/29/19928 risperiDONE (RISPERDAL) tablet 1 mg 1 mg Enteral BID 1 mg at 12/29/19 0929 scopolamine transdermal (TRANSDERM-SCOP) patch 1.5 mg 1.5 mg Topical Q72H 1.5 mg at 12/28/19 1326 Polyethylene Glycol 3350 (MIRALAX) powder 17 g 17 g Enteral BID 17 g at 12/29/19 0929 sennosides-docusate sodium (SENOKOT-S) 8.6-50 mg per tablet 1 tablet 1 tablet Enteral BID 1 tablet at 12/29/19928 amLODIPine (NORVASC) tablet 5 mg 5 mg Enteral DAILY 5 mg at 12/29/19928 hydralAZINE (APRESOLINE) injection 10 mg 10 mg Slow IV Push Q6HPRN 10 mg at 12/27/19 0521 lisinopriL (PRINIVIL,ZESTRIL) tablet 10 mg 10 mg Enteral BID 10 mg at 12/29/19 0929 aspirin EC tablet 81 mg 81 mg Enteral DAILY Stopped at 12/29/19 0900 atorvastatin (LIPITOR) tablet 40 mg 40 mg Enteral QHS 40 mg at 12/28/19 2100 famotidine (PEPCID) 40 mg/5 mL (8 mg/mL) suspension 20 mg 20 mg Enteral BID 20 mg at heparin (porcine) injection 5,000 Units 5,000 Units Subcutaneous Q12H Stopped at 12/29/19 0800 PHYSICAL EXAM BP: (117-201)/(69-113) Temp: [36.6 C (97.9 F)-37.8 C (100 F)] Temp source: Oral (12/28 733) Pulse: [58-105] Resp: [17-22] SpO2: [96 %-100 %] Height: -- Weight: -- BMI (calculated): -- Vitals: 12/29/19 0339 12/29/19 0734 12/29/19 0850 12/29/19 0856 BP: 124/77 117/69 Pulse: 78 79 80 82 Resp: 18 17 18 18 Temp: 37.8 C (100 F) 37.4 C (99.4 F) TempSrc: Oral Oral SpO2: 96% 97% 96% 96% Weight: Height: Intake/Output Summary (Last 24 hours) at 12/28/2019 0914 Last data filed at 12/28/2019 0800 Gross per 24 hour Intake 1415 ml Output 490 ml Net 925 ml General: Somnolent, some spontaneous eye opening. Arousable to vigorous stimulation. Does not follow commands. Mental Status: Consciousness, attention, concentration:impaired. Speech/ Language:impairedto comprehension, fluency, repetition and naming. Global aphasia Fund of knowledge:APPLE Remote and recent memory:APPLE Cranial Nerves: I. Not tested. II.Right gaze preference III. IV., . EOM grossly intact with spontaneous eye movements. Does not track fingers. V.APPLE VII.Right UMN facial droop VIII.APPLE IX., X. XI. XII.APPLE Motor: Tone:right side flaccid Bulk:decreased LUE : 3/5 LLE : 4/5 right upper extremity to painful stimuli : 1/5 RLE : to pain 1-2/5 DTR's: Right Left Bicep 2+ 2+ Triceps 2+ 2+ Brachioradialis 2+ 2+ Patella 2+ 2+ Achilles 1+ 1+ Pathologic reflexes and signs: Babinski:present on right side Cerebellar: Nystagmus: neg, FTN,HTS:APPLE, Tremors: neg Sensory: Withdraws to pain in all extremities right > left Gait:APPLE Lungs: Scattered wheezes, moderate secretions improved with suctioning. Cardio: S1, S2 normal Extremities:no cyanosis,clubbing or edema Neck:supple Abdomen: soft; non-tender; non-distended LABS Recent Results (from the past 24 hour(s)) BASIC METABOLIC PANEL (NA, K, CL, CO2, GLUCOSE, BUN, CREATININE, CA) Collection Time: 12/29/19 4:38 AM Result Value Ref Range NA 135 135 - 145 mmol/L K 4.2 3.5 - 5.0 mmol/L CL 104 98 - 108 mmol/L CO2 TOTAL 26 23 - 31 mmol/L AGAP 5 2 - 16 BUN 16 7 - 23 mg/dL GLUCOSE 102 70 - 110 mg/dL CREATININE 0.60 0.50 - 1.04 mg/dL CALCIUM 9.2 8.6 - 10.6 mg/dL eGFR Calculation (Non-) 102.7 mL/min/1.73m2 eGFR Calculation () 124.4 mL/min/1.73m2 CBC WITH DIFF Collection Time: 12/29/19 4:38 AM Result Value Ref Range WBC 11.06 4.30 - 11.10 10*3/L RBC 4.48 3.93 - 5.25 10*6/L HGB 13.8 11.6 - 15.0 g/dL HCT 41.7 35.7 - 45.2 % MCV 93.1 80.6 - 95.5 fL MCH 30.8 25.9 - 32.8 pg MCHC 33.1 31.6 - 35.1 g/dL RDW-SD 42.3 39.0 - 49.9 fL RDW-CV 12.3 12.0 - 15.5 % PLT 218 166 - 358 10*3/L MPV 11.1 9.5 - 12.9 fL NRBC/100 WBC 0.0 0.0 - 10.0 /100 WBCs NRBC x10^3 <0.01 10*3/L GRAN MAT (NEUT) % 78.0 % IMM GRAN % 0.20 % LYMPH % 10.3 % MONO % 10.7 % EOS % 0.5 % BASO % 0.3 % GRAN MAT x10^3(ANC) 8.63 (H) 1.88 - 7.09 10*3/uL IMM GRAN x10^3 <0.03 0.00 - 0.06 10*3/uL LYMPH x10^3 1.14 (L) 1.32 - 3.29 10*3/uL MONO x10^3 1.18 (H) 0.33 - 0.92 10*3/uL EOS x10^3 0.06 0.03 - 0.39 10*3/uL BASO x10^3 0.03 0.01 - 0.07 10*3/uL MAGNESIUM Collection Time: 12/29/19 4:38 AM Result Value Ref Range MAGNESIUM 1.8 1.7 - 2.4 mg/dL POCT GLUCOSE (AUTOMATED) Collection Time: 12/29/19 11:37 AM Result Value Ref Range POCT GLU 108 70 - 110 mg/dL AC PANEL 20 + LACTIC ACID Collection Time: 12/29/19 11:51 AM Result Value Ref Range PH 7.40 7.35 - 7.45 PCO2 41 35 - 45 mmHg PO2 83 80 - 100 mmHg HCO3 25 22 - 26 mEq/L BE 0.8 -3.0 - 3.0 mEq/L THB 14.4 12.0 - 16.0 g/dL %O2HB 94.3 94.0 - 99.0 % %COHB ART 0.8 0.0 - 1.5 % %METHB ART 0.0 (L) 0.4 - 1.5 % VOL%O2 ART 19.1 15.0 - 23.0 % NA 136 135 - 145 mmol/L K+ 4.2 3.5 - 5.0 mmol/L AC CA IONZ 5.00 4.50 - 5.30 mg/dL GLUCOSE 118 (H) 70 - 110 mg/dL LACTIC ACID 0.98 mmol/L RADIOLOGY No final results containing an impression from the past 48 hours were found. ASSESSMENT AND PLAN Funmilayo Mcmillan is a 59 year old female with PMHx of the following stroke risk factors: HTN, CAD s/p PCI, drug abuse, bipolar, PAD, who presented withright side weakness, global aphasia, confusion.LSN:>24hr, NIHSS21. CT headacute-subacute infact of L MCA, CTA head and neckshowed complete occlusion of L cervical ICA and 50% narrowing of right proximal cervical ICA. Mild focal narrowing of mid basilar artery, some collateral flow over distal MCA.Case discussed with dr Beach and agreed no need for intervention as patient has good collaterals and passed window of intervention. MRI brain showed left MCA territory with no evidence of hemorrhagic transformation. Patient continuedto be encephalopathic, cEEG showed no seizures. 1. Neuro Subacute-acute ischemic stroke of L MCA, mid M1 occlusion Right gaze, concern for seizure resolved Complete occlusion of L ICA Hx of stroke? Toxic metabolic encephalopathy 2/2 medications improving Hx of cocaine abuse (UDS +ve cocaine) Plan: Neurochecks Q1H Telemetry BP, SBP 120-160 Avoid hyperthermia, pain and constipation C/w ASA Plavix held since 12/27 for PEG tube placement (scheduled for 12/28) Atorvastatin 40 mg QHS Fall precautions PT/OT/ Speech pathology following Avoid BB to control BP C/w amlodipine 5 mg daily and lisinopril 10 mg BID for BP control C/w Keppra 750 mg BID Risperdal 1 mg BID for agitation 2. Cardiac #CAD s/p PCI # HTN # Multiple PVC # HFrEF (EF 30-35%) EKG: sinus bradycardia with PVC's Troponin: negative Plan: SBP goal:120-160 C/w lisinopril 10 mg BID C/w amlodipine 5 mg daily TTE with reduced EF, worsened on repeat echo. Cardiology plan for ischemic workup pending neurologic improvement Keep K >4, Mg > 2 3. Pulmonary # COPD CXR: chronic emphysematous changes Plan: Monitor respiratory status Saturating well on RA Suction prn Repeat CXR Ipratropium nebulization QID Scopolamine patch for increased secretions. 4. GI Failed swallow test Moderate malnutrition S/p NGT Nutrition: Enteral Rate: 60ml/hr. Last BM: na Plan: Jevity feeds Famotidine for GI ppx PEG tube placement scheduled 12/28 5. Renal Oliguria Normal BUN/Creatinine Hypokalemia repleted Electrolytes NA 139/3.1, BUN: 21, Creatinine: 0.64 Rogers: in place Plan: Monitor I/O - IV fluids at 75 cc/hr - BMP, Mg daily 6. ID No acute issues Temp (24hrs), Av.7 C (98.1 F), Min:36.7 C (98 F), Max:37.1 C (98.8 F) Cultures: not indicated ABx: none Plan: Monitor temp curve 7. Endo No active issues Monitor BG Hgb A1c 5.2 IV access: PIV x 2 Rogers: in place Antibiotic(s): not indicated - GI Prophylaxis: famotidine - DVT Prophylaxis: heparin Discussed and seen with Dr. Ackerman, Neurology Faculty Thomas Desai MD PGY-1 Internal Medicine/Aerospace Medicine Pager [phone] Associated attestation - Marielos Ackerman MD - 12/29/2019 1:23 PM CDTI personally examined the patient and agree with resident note as written. Rapid response called by nursing staff secondary to worsening encephalopathy and inability to control secretions. She has riskof airway compromise given her degree of lethargy. Patient being transferred to ICU for further care. I actively participated in the decision-making process. Please see the resident's note for additional details. Critical care time 50 minutes Leland Richards MD - 12/29/2019 12:46 PM CDT Neurocritical Care Attending Note I have been directly involved in the care of this patient including decision- making with house staffand nursing teams at the bedside. Ms Funmilayo Mcmillan is critically ill, 59 year old years old female with a PMH of Past Medical History: Diagnosis Date CAD (coronary artery disease) 08/2013 s/p PCI (SAEID) to proximal LAD, 50% mid focal occlusion of LCx Depression HTN (hypertension) PAD (peripheral artery disease) 05/10/2015 Stroke Tuberculosis was treated for 6 months, was in longterm. now admitted on 12/24/2019 with history per neurology resident admission note- 59 year old female unknown handiness with PMHX of bipolar, depression, HTN, CAD s/p PCI, , PAD, stroke?, TB, drug abuse (crack) who presented with CC of AMS, right side weakness, aphasia. Unknown LSN, patient was seen with her friends. 2 days ago she was found on ground in her living room, she then got up and was laying on bed, 2 hours later her friend was checking on her and she was again laying on ground. She was then seen today sitting arms crossed in her chest and she would not respond, then EMSwas called Daughter saw patient couple months ago, and she was at her baseline (with no focal deficit independent on ADL. At OSH ER, BP 167/104, HR 67, afebrile, RR20, UDS +ve cocaine and HTC, UA negative, TSH wnl, LFT wnl, bmp wnl, cbc mildly elevated wbc of 12.3, trop negative. CTH showed acute-subacute L MCA infact insuperior division. Patient was transferred to [facility] for further workup. MRI brain- 12/26/2019- subacute left MCA infarction- no haemorrhagic transformation; chronic small vessel disease. Patient was hemodynamically stable and transferred to floor on 12/28/2019. Hospital complication: - Rapid response due to respiratory distress- due to difficulty with handling oral-airway secretions; became tachypneic; normal O2 saturation, ABG- normal; transferred to NCCU, treated with frequent suction, increase nebs, glycopyrrolate, empiric antibiotics and O2 supplementation. Interval history:- Brief exam at Rapid Response- agitated, head and gaxe - right side preference though crosses midline; right facial UMN weakness (drool ++); right UE & LE- 1 to 2/5; left UE & LE- thrashing (at least 4/5); * chest- bilateral scattered conducted airway sounds (rattling) but no crepitations at bases Active problem list- 1. Left MCA acute ischemic stroke (LDL-109, A1c-5.2%) 2. Active Cocaine abuse 3. At risk for seizures, at risk for stroke 4. History of multiple medical comorbidities-as mentioned abovely this AM 5. Respiratory distress- due to difficulty with airway secretions Temp: [36.6 C (97.9 F)-37.8 C (100 F)] Heart Rate (monitor): [59] Pulse: [58-105] Resp: [17-22] BP: (117-201)/(68-113) MAP (mmHg): [85-142] ; Lab Results Component Value Date NA 135 12/29/2019 NA 139 12/28/2019 NA 137 12/27/2019 NA 146 (H) 04/12/2014 NA 139 08/23/2013 NA 140 08/22/2013 BUN Date Value 12/29/2019 16 mg/dL 04/12/2014 26 MG/DL (H) Recent Labs 12/28/19 0319 12/29/19 0438 WBC 8.06 11.06 Intake/Output Summary (Last 24 hours) at 12/29/2019 1253 Last data filed at 12/29/2019 0906 Gross per 24 hour Intake Output 1500 ml Net -1500 ml ABG- (Rapid Response)- 7.40/41/83/25/94.3%/0.8; Lact-0.98; (on FiO2 30%) Plan: 1) Continue neurochecks; aspirin, clopidogrel, atorvastatin * Levetiracetam 750 mg twice a day; 2) cardiopulmonary monitoring- SBP [id number] mmHg - start Glycopyrrolate; empiric antibiotics; NT suction; increase Nebs; - chlorhexidine care; -Continue Lisinopril and Amlodipine 3) Advance enteral intake as tolerated- via NG tube * consider early PEG placement - aim for euvolemia; euthermia and euglycemia 4) DVT/GI prophylaxis- SCD's; SC heparin, bowel regimen 5) Out of bed to chair; PT/OT/speech if feasible *SW to initiate placement procedure * plan to discuss with family (daughter) about exterminator goals of care Disposition: awaiting stable neurologic, cardiac-pulmonary and hemodynamic status I have spent a total of 35 min of critical care time at the bedside. Leland Richards M.D. Neurocritical Care Unit Attending TPEmile mckeon PTA - 12/29/2019 11:12 AM CDT Physical Therapy Progress Note: Discharge Recommendations: Therapy Needs and Potential: Patient would benefit from continued physical therapy services to address: decline in bed mobility decline in transfers decline in gait and/or balance decreased strength Patient exhibits limited ability to follow commands. Challenges to Home Transition: increased risk of falls decreased safety awareness Patient will need significant physical assistance for bed mobility and transfers Equipment recommendations: TBD depending on progress during hospital stay PAIN: unable to verbalize PRECAUTIONS: Weight Bearing Precaution: WBAT General Precautions: PPE used:Gloves and Surgical mask, General, Fall,IV, Telemetry, NG tube Bracing/Cast present or required:B UE restraints, prevalon boots, SCDs S: Patient unable to verbalize and is not alert or oriented. O: Patient met Semi reclined in bed. Patient seen for the following: Bed mobility: Rolling: Dependent Repositioned patient to head of bed: Dependent Patient limited by lack of cognition Adjusted length of restraints with new placement of patient at HOB, with HOB elevated Therapeutic exercise: instructed patient in the following: ankle pumps, heel slides, hip abduction/adduction, hip internal/external rotation, straight leg raises facilitated PROM with all therex PNF patterns D1 and D2 flex/ext on R LE, patient performs active sets of said movement patterns unconsciously at random times Muscles appear atrophied but no soft tissue restriction noted No active assist with any cuing After session, patient Semi reclined in bed and call gonzalez provided. All SCDs and prevalon boots reapplied. A: Patient tolerated session fair. patient not making any progress at this time. P: PT will - attempt bed mobility if pt appropriate . Total Timed Tx Codes in Minutes: 28 Min Total Treatment Time in Minutes: 28 Min Emile Saucedo PTA [facility] [phone] Supervising PT: Arcelia Kaur uHeide rae OTA - 12/29/2019 10:41 AM CDTOCCUPATIONAL THERAPY NOTE: Discharge Recommendations: Therapy Needs and Potential:- Patient would benefit from continued skilled occupational therapy services to address:Decline in basic activities of daily living, Decline in instrumental activities of daily living, Decline in cognition, Decreased strength, Decreased range of motion, Decreased endurance, Decreased coordination and Caregiver training - Patient exhibits limited activity tolerance. - Patient able to follow commands: 1-stepNo, Multi-stepNo, InconsistenciesNo Challenges to Home Transition:- Requires physical assistance for BADLS - Requires physical assistance for IADLS - Requires supervision or verbal cues for BADLS - Requires supervision or verbal cues for IADLS - No caregiver support - Decreased safety awareness/judgement - Increased risk of falls Equipment Recommendations:TBD when patient able to participate more in OOB activity, however if patient were to discharge home today would recommendHospital bed, Low air loss mattress and Mechanical lift Precautions: WB: NA General: PPE Utilized: Gloves and Surgical mask, Fall, Feeding tube, Restraints and Hand mitts Bracing: N/A S: Patient awake with varying degrees of alertness thru out session. No verbal communication. Minimal response to stimuli. PAIN Patient gave no indication of pain today. O: Patient found semireclining in bed. restless, moving LUE and LLE. Patient seen this date for the following: ADL Training Patient not responding to commands or instructions. Simple grooming attempted, however patient not receptive. Therapeutic Exercise/Procedure Patient seen for PROM: Patient performed Shoulder flexion/extension, Shoulder abduction/adduction, Elbow flexion/extension and Wrist flexion/extension, Patient tolerated 2 sets of 10 reps Patient left semireclining in bed with call gonzalez in reach. Restraints reapplied and secured at end of session and Hand mitts donned and secured at end of session. A: Patient exhibited Poor participation in therapy and responded poorly to treatment this session. No progress toward goals at this time. non responsive to FROST's instructions, commands or stimuli remain(s) a limiting factor. P: Daily living activities and Therapeutic exercises to maximize patient's safety and independence with BADLs if patient participation improves. MARGOT Mccoy Pager [phone] Supervising OTR: Cristina Marinelli Total Timed Treatment Codes: 10 Min Total Treatment Time: 10 Min Lisa Chery PTA - 12/28/2019 2:35 PM CDTPHYSICAL THERAPY NOTE: Attempted to see patient in AM. Patient with nursing upon arrival. Will return later for PT as time permits. Lisa Kramer PTA Pager #: [phone] Supervising PT Jolene Potter Adrienne Garcia SW - 12/28/2019 1:35 PM CDTCare Coordinator Continued Stay Note Length of stay day: 4 What was patient admitted for?: STROKE What has changed in the last 24 hours: SBP trendin's to 150's Decreased dose of Risperdal to 1 mg BID CEEG : No electrographic seizures, d/c ed EEG Echo with contrast pending What are we doing for this patient that they still need to be in the hospital: 1. Neuro Subacute-acute ischemic stroke of L MCA, mid M1 occlusion Right gaze, concern for seizure resolved Complete occlusion of L ICA Hx of stroke? Toxic metabolic encephalopathy 2/2 medications improving Hx of cocaine abuse (UDS +ve cocaine) Plan: Neurochecks Q1H Telemetry BP, SBP 120-160, off of cardene Avoid hyperthermia, pain and constipation C/w ASA Plavix held since 12/27 for PEG tube placement Atorvastatin 40 mg QHS Fall precautions Consulted PT/OT/ Speech pathology Avoid BB to control BP C/w amlodipine 5 mg daily and lisinopril 10 mg BID for BP control D/c cEEG C/w Keppra 750 mg BID Risperdal 1 mg BID for agitation 2. Cardiac #CAD s/p PCI # HTN # Multiple PVC # HFrEF ( EF 40-45%) EKG: sinus bradycardia with PVC's Troponin: negative Plan: SBP goal:120-160 C/w lisinopril 10 mg BID C/w amlodipine 5 mg daily TTEwith reduced EF, cardiology consulted Keep K >4, Mg > 2 F/u Focused echo with contrast 3. Pulmonary # COPD CXR: chronic emphysematous changes Plan: ? Monitor respiratory status ? Saturating well on RA ? Ipratropium nebulization QID ? Scopolamine patch for increased secretions. 4. GI Failed swallow test S/p NGT Nutrition: Enteral Rate: 60ml/hr. Last BM: na Plan: ? Jevity of feeds ? Famotidine for GI ppx ? PEG tube placement vs Thursday 5. Renal Oliguria Normal BUN/Creatinine Hypokalemia repleted Electrolytes NA 139/3.1, BUN: 21, Creatinine: 0.64 Rogers: in place Plan: ? Monitor I/O - IV fluids at 75 cc/hr - BMP, Mg daily 6. ID No acute issues Temp (24hrs), Av.7 C (98.1 F), Min:36.7 C (98 F), Max:37.1 C (98.8 F) Cultures: not indicated ABx: none Plan: ? Monitor temp curve 7. Endo No active issues ? Monitor BG ? Hgb A1c 5.2 IV access: PIV x 2 Rogers: in place Antibiotic(s): not indicated - GI Prophylaxis: famotidine - DVT Prophylaxis: heparin What is EDOD: 01/02/2020 What is the discharge plan for the patient: ROB spoke withdaughter, Ayah Ghislaine [phone] who assured SW that she is willing and able to provide 24/7 asst/care for patient. Daughter reported their family is willing and able to help if daughter needs to run an errand, etc. Daughter stated she has a very supportive family. ROB provided support and explained that home health, DME, and provider services would be arranged as well for patient's discharge What are the barriers: none known at this time Plan/Need for family meeting: not at this time FERNANDO Magaña-IPR [phone] [address] [place] [phone] Care Mgmt Dept Keshia Lugo, WEB CONTENT EXECUTIVE - 12/28/2019 12:23 PM [facility] Daily Progress Note & Speech-Language Evaluation - 12/28/2019 [id number] Funmilayo Mcmillan : 1960 Age: [age] year old Sex: female SUBJECTIVE: Patient awake upon arrival. RN reports patient not following commands and with no attempts to communicate. No family present for this session. OBJECTIVE: Funmilayo Mcmillan was seen for 1 WEB CONTENT EXECUTIVE treatment session/s on this date. Treatment was provided due to suspected dysphagia and for speech-language evaluation. Patient is a 59 year old female admitted for AMS, aphasia and R sided weakness with PMH significant for HTN, CAD s/p PCI, drug abuse (hx of c ocaine abuse), bipolar, PAD. NIHSS 21. MRI Brain demonstrated large infarct in left MCA territory without hemorrhagic transformation. Planned for PEG placement. Progress on short term goals was as follows: Swallowing: - Patient will participate in on-going swallow re-evaluation at the bedside to determine readiness/safety for PO vs need/timing for objective swallow assessment: Prior to po trials, patient noted with difficulty managing secretions and oral suctioning provided. Pt given single ice chip trials. She demonstrated weak/incomplete labial seal and observed with limited lingual movement for posterior bolus transport. Pt with overt, persistent coughing after single ice chip. No further trials given. (continue goal) SPEECH-LANGUAGE EVALUATION Informal measures: Portions of the CASP Speech-Language Evaluation Auditory Comprehension: Profoundly impaired; patient unable to follow simple commands, identify items from field of 2, or answer simple yes/no questions. Verbal Expression: Profoundly impaired; patient is nonverbal and did not make attempts to verbalizethroughout evaluation; unable to shake head for yes/no questions Intelligibility/Motor Planning: NA; nonverbal Pragmatics/Social Interaction: Profoundly impaired; patient did not attend to speaking despite max cues Voice/Resonance/Fluency: NA; nonverbal, did not vocalize on command Reading/Writing: Deferred; suspect to be commensurate with auditory/verbal skills Cognitive-Linguistic: Unable to fully assess d/t severity of aphasia; patient unable to attend to speaker despite max cues ASSESSMENT: Funmilayo Mcmillan demonstrated minimal progress on swallowing goals. She continues to present with oral and suspected pharyngeal dysphagia in the setting of acute CVA. Pt given single ice chip trialand observed with overt, persistent coughing. Vocal quality/breathing during intermittent grunts appeared to be wet/gurgled suspect secretions to be moving passively to the pharynx, however, aspirationcannot be r/o nor confirmed w/o instrumental imaging. Patient is at suspected high risk for aspiration and does not appear safe nor functional to initiate a po diet. Suspect patient to benefit from continued use of short-term FAUCNDO with strict oral hygiene care. Per nursing, patient also to likely have PEG placed in the coming days. Ms. Mcmillan also presents with profound mixed expressive-receptive language deficits consistent with global aphasia with impairments in all language modalities. Pt is completely nonverbal and with no attempts to communicate during today's evaluation. She is unsafe to be on her own and take care of h erself d/t inability to make her wants/needs known. Pt would benefit from continued WEB CONTENT EXECUTIVE services while in-house and after discharge. Should patient discharge home, recommend 24/ supervision. PLAN: 1. Recommend patient remain NPO and continue with alternative means of nutrition/hydration (DHT in place). 2. Recommend elevated head of bed and frequent, thorough oral hygiene care due to suspected high risk for aspiration. 3. Recommend WEB CONTENT EXECUTIVE therapy 2-5x/wk for 15-45 min/session while in-house to address the above goals as well as the following: Verbal Expression: - Patient will communicate basic wants/needs via any language modality (i.e. naming, gesturing, picture communication board) with 80% accuracy and moderate cues. - Patient will recite automatic speech sequences (i.e. counting, days of week, etc) with moderate cues 80% of the time. Auditory Comprehension: - Patient will answer simple yes/no questions with 80% accuracy. - Patient will follow one-step commands using body parts with moderate cues 80% of the time. 4. Discharge recommendation: continued WEB CONTENT EXECUTIVE therapy at d/c facility; 24/ supervision/assist Keshia Lugo M.[facility]-WEB CONTENT EXECUTIVE Speech-Language Pathologist Office: [phone] Pager: [phone] Heide Vargas OTA - 12/28/2019 11:31 AM CDTOCCUPATIONAL THERAPY NOTE: Discharge Recommendations: Therapy Needs and Potential:- Patient would benefit from continued skilled occupational therapy services to address:Decline in basic activities of daily living, Decline in instrumental activities of daily living, Decline in cognition, Decreased strength, Decreased range of motion, Decreased endurance, Decreased coordination and Caregiver training - Patient exhibits limited activity tolerance. - Patient able to follow commands: 1-stepNo, Multi-stepNo, InconsistenciesNo Challenges to Home Transition:- Requires physical assistance for BADLS - Requires physical assistance for IADLS - Requires supervision or verbal cues for BADLS - Requires supervision or verbal cues for IADLS - No caregiver support - Decreased safety awareness/judgement - Increased risk of falls Equipment Recommendations:TBD when patient able to participate more in OOB activity, however if patient were to discharge home today would recommendHospital bed, Low air loss mattress and Mechanical lift Precautions: WB: NA General: PPE Utilized: Gloves and Surgical mask, Fall, Feeding tube, Restraints and Hand mitts Bracing: N/A S: Nurse agreeable for patient to participate with occupational therapy. Nurse stating that patientcontinues to be unresponsive to commands. PAIN Patient gave no indication of pain this session. O: Patient found semireclining in bed. Restraints reapplied and secured at end of session and Hand mitts donned and secured at end of session. Patient seen this date for the following: ADL Training Patient was awake and alert, however was completely unresponsive with instruction Therapeutic Exercise/Procedure Patient seen for PROM: Patient performed Shoulder flexion/extension, Shoulder abduction/adduction, Elbow flexion/extension and Wrist flexion/extension, Patient tolerated 2 sets of 10 reps Patient left semireclining in bed with call gonzalez in reach. Restraints reapplied and secured at end of session and Hand mitts donned and secured at end of session. A: Patient exhibited Poor participation in therapy and responded poorly to treatment this session. No progress toward goals at this time. Patient continues to present with Decreased independence with ADL, Impaired postural control, Decreased functional ROM, Decreased strength/endurance for functional activity, Sensory deficits and Impaired Cognition and will benefit from continued OT services to address above areas and improve functional status. P: Daily living activities and Therapeutic exercises to maximize patient's safety and independence with BADLs. MARGOT Mccoy Pager [phone] Supervising OTR: Cristina Marinelli Total Timed Treatment Codes: 8 Min Total Treatment Time: 8 Min Leland Muse MD - 12/28/2019 10:38 AM CDT Neurocritical Care Attending Note I have been directly involved in the care of this patient including decision- making with house staffand nursing teams at the bedside. Ms Funmilayo Mcmillan is critically ill, 59 year old years old female with a PMH of Past Medical History: Diagnosis Date CAD (coronary artery disease) 08/2013 s/p PCI (SAEID) to proximal LAD, 50% mid focal occlusion of LCx Depression HTN (hypertension) PAD (peripheral artery disease) 05/10/2015 Stroke Tuberculosis was treated for 6 months, was in longterm. now admitted on 12/24/2019 with history per neurology resident admission note- 59 year old female unknown handiness with PMHX of bipolar, depression, HTN, CAD s/p PCI, , PAD, stroke?, TB, drug abuse (crack) who presented with CC of AMS, right side weakness, aphasia. Unknown LSN, patient was seen with her friends. 2 days ago she was found on ground in her living room, she then got up and was laying on bed, 2 hours later her friend was checking on her and she was again laying on ground. She was then seen today sitting arms crossed in her chest and she would not respond, then EMSwas called Daughter saw patient couple months ago, and she was at her baseline (with no focal deficit independent on ADL. At OSH ER, BP 167/104, HR 67, afebrile, RR20, UDS +ve cocaine and HTC, UA negative, TSH wnl, LFT wnl, bmp wnl, cbc mildly elevated wbc of 12.3, trop negative. CTH showed acute-subacute L MCA infact insuperior division. Patient was transferred to [facility] for further workup. MRI brain- 12/26/2019- subacute left MCA infarction- no haemorrhagic transformation; chronic small vessel disease. Interval history:- More responsive last night- with lower agitation, Early this AM - sleeping; opening eyes to pain transiently for a few seconds; did not follow simple verbal commands, gaze preference to left side but able to move the gaze spontaneously across midline;right facial UMN weakness, right UE - 1/5 to pain, right LE - 2/5 to pain, localization with left UE& withdrawal on left LE (both 4/5), Active problem list- 1. Left MCA acute ischemic stroke (LDL-109, A1c-5.2%) 2. Active Cocaine abuse 3. At risk for seizures, at risk for stroke 4. History of multiple medical comorbidities-as mentioned abovely this AM- Exam in the NCCU early this AM- sleeping; opening eyes to pain transiently for a few seconds- shouting to sternal rub; did not follow simple verbal commands, gaze preference to left side but able to move the gaze spontaneously acrossmidline; right facial UMN weakness, right UE - 2/5 to pain, right LE - 2/5 to pain, brisk localization with left UE & withdrawal on left LE (both 4+/5), Temp: [36.5 C (97.7 F)-37.1 C (98.8 F)] Heart Rate (monitor): [60-101] Pulse: [57-102] Resp: [16-28] BP: (105-155)/(62-99) MAP (mmHg): [77-115] ; Lab Results Component Value Date NA 139 12/28/2019 NA 137 12/27/2019 NA 137 12/26/2019 NA 146 (H) 04/12/2014 NA 139 08/23/2013 NA 140 08/22/2013 BUN Date Value 12/28/2019 21 mg/dL 04/12/2014 26 MG/DL (H) Recent Labs 12/27/19 0329 12/28/19 0319 WBC 8.97 8.06 Intake/Output Summary (Last 24 hours) at 12/28/2019 1039 Last data filed at 12/28/2019 1000 Gross per 24 hour Intake 1415 ml Output 495 ml Net 920 ml Plan: 1) Continue neurochecks; aspirin, clopidogrel, atorvastatin * Levetiracetam 750 mg twice a day; remove cEEG; 2) cardiopulmonary monitoring- SBP [id number] mmHg - start Scopolamine patch -Continue Lisinopril and Amlodipine 3) Advance enteral intake as tolerated- via NG tube * consider early PEG placement - aim for euvolemia; euthermia and euglycemia 4) DVT/GI prophylaxis- SCD's; SC heparin, bowel regimen 5) Out of bed to chair; PT/OT/speech if feasible *SW to initiate placement procedure Disposition: awaiting stable neurologic, cardiac-pulmonary and hemodynamic status I have spent a total of 35 min of critical care time at the bedside. Leland Richards M.D. Neurocritical Care Unit Attending Abhishek Grijalva MBBS - 12/28/2019 9:13 AM CDT [facility] PROGRESS NOTE/ TRANSFER NOTE DATE OF SERVICE: 12/28/2019 11:26 Day of Hospitalization: 4 CHIEF COMPLAINT: aphasia, right sided weakness, AMS Code status: not addressed: presumed full Hospital Course : Funmilayo Mcmillan is a 59 year old unknown handedness female with PMHX of bipolar, depression, HTN, CAD s/p PCI, , PAD, stroke?, TB, drug abuse (crack) who presented with CC of AMS, right side weakness, aphasia. LSN : unknown, At OSH ER, BP 167/104, HR 67, afebrile, RR20, UDS +ve cocaine and HTC, UA negative, TSH wnl, LFT wnl, bmp wnl, cbc mildly elevated wbc of 12.3, trop negative. CTHshowed acute-subacute L MCA infact, transferred to [facility]. CT angiogram head and neck showed complete occlusion of left cervical ICA from just distal to the bulb through the supraclinoid segment at the level of the ophthalmic artery, mild to moderate narrowing of basilar artery. Required cardene for BP managament later weaned off. Developed right gaze preference on 12/24 loaded with Keppra and started on maintenance Keppra. CEEG showed no electrographic seizures or epileptiform discharges. MRI Brain demonstrated large infarct in left MCA territory without hemorrhagic transformation. TTE showed EF 40-45% with wall motion abnormalities. Cardiology consulted for reduced EF. Planned for PEG tube placement, plavix held. Deemed stable for transfer to floor. Things to follow up: - Plavix held since 12/27, IR PEG tube order placed. Possibly vs Thursday - Echo with contrast pending, new onset HFrEF. - Per career information specialist, daughter plans to take her home on discharge. 24-HOUR EVENTS: SBP trendin's to 150's Decreased dose of Risperdal to 1 mg BID CEEG : No electrographic seizures, d/c ed EEG Echo with contrast pending SUBJECTIVE: Patient opens eyes intermittently to voice, unable to follow commands. Spontaneously raises left legup in the air. Has productive cough/secretions. STROKE DOCUMENTATION NIH STROKE SCALE NIH STROKE SCALE LOC: 1 Not Alert: Arousable With Minor Stimulation to Obey, Answer or Respond LOC QUESTIONS: 2 Answers Neither Question Correctly LOC COMMANDS: 2 Performs Neither Task Correctly BEST GAZE: 1 Partial Gaze Palsy VISUAL: 0 No Visual Loss FACIAL PALSY: 2 Partial Paralysis MOTOR ARM-LEFT: 2 Some Effort Against [place] MOTOR ARM-RIGHT: 4 No Movement MOTOR LEG-LEFT: 1 Drift MOTOR LEG-RIGHT: 3 No Effort Against [place] LIMB ATAXIA: 0 Absent SENSORY: 0 Normal BEST LANGUAGE: 3 Mute, Global Aphasia DYSARTHRIA: UN Intubated or Other Physical Barrier, Explain EXTINCTION AND INATTENTION (FORMERLY NEGLECT): 0 No Abnormalty STROKE SCALE INTERVAL: Day 4 STROKE SCALE TOTAL SCORE: 21 HOSPITAL MEDICATIONS Current Facility-Administered Medications Medication Dose Route Frequency Last Rate Last Dose ipratropium (ATROVENT) 0.02 % nebulizer solution 0.5 mg 0.5 mg Inhalation QID levETIRAcetam (KEPPRA) 100 mg/mL oral solution 750 mg 750 mg Enteral BID NaCl 0.9% (NS) IV infusion 1,000 mL 1,000 mL IV Infusion CONTINUOUS 100 mL/hr at 12/28/19 0237 1,000 mL at 12/28/19 0237 risperiDONE (RISPERDAL) tablet 1 mg 1 mg Enteral BID scopolamine transdermal (TRANSDERM-SCOP) patch 1.5 mg 1.5 mg Topical Q72H Polyethylene Glycol 3350 (MIRALAX) powder 17 g 17 g Enteral BID 17 g at 12/28/19 0808 sennosides-docusate sodium (SENOKOT-S) 8.6-50 mg per tablet 1 tablet 1 tablet Enteral BID 1 tablet at 12/28/19 0808 amLODIPine (NORVASC) tablet 5 mg 5 mg Enteral DAILY 5 mg at 12/28/19 0808 hydralAZINE (APRESOLINE) injection 10 mg 10 mg Slow IV Push Q6HPRN 10 mg at 12/27/19 0521 lisinopriL (PRINIVIL,ZESTRIL) tablet 10 mg 10 mg Enteral BID 10 mg at 12/28/19 0808 aspirin EC tablet 81 mg 81 mg Enteral DAILY 81 mg at 12/28/19807 atorvastatin (LIPITOR) tablet 40 mg 40 mg Enteral QHS 40 mg at 12/27/192002 famotidine (PEPCID) 40 mg/5 mL (8 mg/mL) suspension 20 mg 20 mg Enteral BID 20 mg at heparin (porcine) injection 5,000 Units 5,000 Units Subcutaneous Q12H 5,000 Units at PHYSICAL EXAM BP: (105-155)/(62-99) Temp: [36.5 C (97.7 F)-37.1 C (98.8 F)] Temp source: Axillary (12/27 1000) Pulse: [57-102] Resp: [16-25] SpO2: [93 %-100 %] Height: -- Weight: [48 kg (105 lb 13.1 oz)] BMI (calculated): [18.75] Vitals: 12/28/19 0800 12/28/19 0811 12/28/19 0822 12/28/19 1000 BP: 131/78 117/76 Pulse: 82 86 86 57 Resp: Temp: 36.5 C (97.7 F) TempSrc: Axillary Axillary SpO2: 98% 100% 98% 99% Weight: 48 kg (105 lb 13.1 oz) Height: Intake/Output Summary (Last 24 hours) at 12/28/2019 0914 Last data filed at 12/28/2019 0800 Gross per 24 hour Intake 1415 ml Output 490 ml Net 925 ml General: Patient is awake, opens eyes sometimes spontaneously, unable to follow commands. Mental Status: Consciousness, attention, concentration:impaired. Speech/ Language:impairedto comprehension, fluency, repetition and naming. Global aphasia Fund of knowledge:APPLE Remote and recent memory:APPLE Cranial Nerves: I. Not tested. II.Left gaze preference, able to correct to midline III. IV., . Unable to track fingers, moves eyes spontaneously in all directions, prefers left gaze V.APPLE VII.Right UMN facial droop VIII.APPLE IX., X. XI. XII.APPLE Motor: Tone:right side flaccid Bulk:decreased LUE : 3/5 LLE : 4/5 right upper extremity to painful stimuli : 1/5 RLE : to pain 1-2/5 DTR's: Right Left Bicep 2+ 2+ Triceps 2+ 2+ Brachioradialis 2+ 2+ Patella 2+ 2+ Achilles 1+ 1+ Pathologic reflexes and signs: Babinski:present on right side Cerebellar: Nystagmus: neg, FTN,HTS:APPLE, Tremors: neg Sensory: Withdraws to pain in all extremities right > left Gait:APPLE Lungs: Wheezing heard Cardio: S1, S2 normal Extremities:no cyanosis,clubbing or edema Neck:supple,no carotid bruit,no JVD Abdomen: soft; non-tender; non-distended; normoactive bowel sounds heard LABS Recent Results (from the past 24 hour(s)) BASIC METABOLIC PANEL (NA, K, CL, CO2, GLUCOSE, BUN, CREATININE, CA) Collection Time: 12/28/19 2:37 AM Result Value Ref Range NA 139 135 - 145 mmol/L K 3.1 (L) 3.5 - 5.0 mmol/L CL 113 (H) 98 - 108 mmol/L CO2 TOTAL 23 23 - 31 mmol/L AGAP 3 2 - 16 BUN 21 7 - 23 mg/dL GLUCOSE 107 70 - 110 mg/dL CREATININE 0.64 0.50 - 1.04 mg/dL CALCIUM 7.6 (L) 8.6 - 10.6 mg/dL eGFR Calculation (Non-) 95.3 mL/min/1.73m2 eGFR Calculation () 115.5 mL/min/1.73m2 MAGNESIUM Collection Time: 12/28/19 2:37 AM Result Value Ref Range MAGNESIUM 1.9 1.7 - 2.4 mg/dL PROTHROMBIN TIME / INR Collection Time: 12/28/19 2:37 AM Result Value Ref Range PROTIME PATIENT 11.4 10.1 - 12.6 Seconds INR 1.0 CBC WITH DIFF Collection Time: 12/28/19 3:19 AM Result Value Ref Range WBC 8.06 4.30 - 11.10 10*3/L RBC 4.29 3.93 - 5.25 10*6/L HGB 13.4 11.6 - 15.0 g/dL HCT 40.5 35.7 - 45.2 % MCV 94.4 80.6 - 95.5 fL MCH 31.2 25.9 - 32.8 pg MCHC 33.1 31.6 - 35.1 g/dL RDW-SD 43.0 39.0 - 49.9 fL RDW-CV 12.4 12.0 - 15.5 % PLT 186 166 - 358 10*3/L MPV 10.8 9.5 - 12.9 fL NRBC/100 WBC 0.0 0.0 - 10.0 /100 WBCs NRBC x10^3 <0.01 10*3/L GRAN MAT (NEUT) % 74.1 % IMM GRAN % 0.40 % LYMPH % 14.8 % MONO % 9.6 % EOS % 0.7 % BASO % 0.4 % GRAN MAT x10^3(ANC) 5.98 1.88 - 7.09 10*3/uL IMM GRAN x10^3 0.03 0.00 - 0.06 10*3/uL LYMPH x10^3 1.19 (L) 1.32 - 3.29 10*3/uL MONO x10^3 0.77 0.33 - 0.92 10*3/uL EOS x10^3 0.06 0.03 - 0.39 10*3/uL BASO x10^3 0.03 0.01 - 0.07 10*3/uL RADIOLOGY Xr Kub Result Date: 12/27/2019 FINDINGS/IMPRESSION: The weighted enteric tube tip lies within the stomach. Preliminary Report Dictated by Resident: Navi Collazo I reviewed this study and agree with minor modifications (no callneeded to the referring physician). INguyễn MD., have reviewed this study and agree with the above report. Mr Brain Wo Contrast Result Date: 12/26/2019 Motion degraded exam. Large subacute infarct in the left MCA territory with no gross evidence of hemorrhage transformation. Findings were communicated and acknowledged by GILA Prasad at 12:51 PM on 12/26/2019. Preliminary Report Dictated by Resident: Henri De Paz MD., have reviewed this study and agree with the above report. ASSESSMENT AND PLAN Funmilayo Mcmillan is a 59 year old female with PMHx of the following stroke risk factors: HTN, CAD s/p PCI, drug abuse, bipolar, PAD, who presented withright side weakness, global aphasia, confusion.LSN:>24hr, NIHSS21. CT headacute-subacute infact of L MCA, CTA head and neckshowed complete occlusion of L cervical ICA and 50% narrowing of right proximal cervical ICA. Mild focal narrowing of mid basilar artery, some collateral flow over distal MCA.Case discussed with dr Beach and agreed no need for intervention as patient has good collaterals and passed window of intervention. MRI brain showed left MCA territory with no evidence of hemorrhagic transformation. Patient continuedto be encephalopathic, cEEG showed no seizures. 1. Neuro Subacute-acute ischemic stroke of L MCA, mid M1 occlusion Right gaze, concern for seizure resolved Complete occlusion of L ICA Hx of stroke? Toxic metabolic encephalopathy 2/2 medications improving Hx of cocaine abuse (UDS +ve cocaine) Plan: Neurochecks Q1H Telemetry BP, SBP 120-160, off of cardene Avoid hyperthermia, pain and constipation C/w ASA Plavix held since 12/27 for PEG tube placement Atorvastatin 40 mg QHS Fall precautions Consulted PT/OT/ Speech pathology Avoid BB to control BP C/w amlodipine 5 mg daily and lisinopril 10 mg BID for BP control D/c cEEG C/w Keppra 750 mg BID Risperdal 1 mg BID for agitation 2. Cardiac #CAD s/p PCI # HTN # Multiple PVC # HFrEF ( EF 40-45%) EKG: sinus bradycardia with PVC's Troponin: negative Plan: SBP goal:120-160 C/w lisinopril 10 mg BID C/w amlodipine 5 mg daily TTE with reduced EF, cardiology consulted Keep K >4, Mg > 2 F/u Focused echo with contrast 3. Pulmonary # COPD CXR: chronic emphysematous changes Plan: Monitor respiratory status Saturating well on RA Ipratropium nebulization QID Scopolamine patch for increased secretions. 4. GI Failed swallow test Moderate malnutrition S/p NGT Nutrition: Enteral Rate: 60ml/hr. Last BM: na Plan: Jevity of feeds Famotidine for GI ppx PEG tube placement vs Thursday 5. Renal Oliguria Normal BUN/Creatinine Hypokalemia repleted Electrolytes NA 139/3.1, BUN: 21, Creatinine: 0.64 Rogers: in place Plan: Monitor I/O - IV fluids at 75 cc/hr - BMP, Mg daily 6. ID No acute issues Temp (24hrs), Av.7 C (98.1 F), Min:36.7 C (98 F), Max:37.1 C (98.8 F) Cultures: not indicated ABx: none Plan: Monitor temp curve 7. Endo No active issues Monitor BG Hgb A1c 5.2 IV access: PIV x 2 Rogers: in place Antibiotic(s): not indicated - GI Prophylaxis: famotidine - DVT Prophylaxis: heparin Discussed and seen with Dr. Richards, Neurology Faculty Felisa Alvares, MS4 I personally examined the patient on 12/28/19 and have verified the medical student documentation and/or findings, including the history, physical exam, and medical decision making. Additionally, I have personally performed or re- performed the physical exam and medical decision making activities of this patient's evaluation and management service. Ata Weiss MD, PGY-3, Neurology Pager: Associated attestation - Leland Richards MD - 12/28/2019 4:29 PM CDTI personally examined this patient- named-Ms Funmilayo Mcmillan on 12/28/[address] Berumen 's resident note with the following addition(s): as documented in my own note. I actively participated in the decision-making process. Please see the resident's note for additional details. Leland Richards MD Neurocritical Care Unit Attending Gisela Morris DO - 12/28/2019 8:19 AM CDT Cardiology Progress Note Date of Service: 12/28/2019 08:19 Chief Complaint: AMS, right sided weakness, and aphasia 24-HOUR EVENTS: NAEO SUBJECTIVE: Patient does not answer any questions or follows any verbal command. PHYSICAL EXAM: Vitals: 12/28/19 0400 12/28/19 0500 12/28/19 0600 12/28/19 0811 BP: 118/78 117/83 115/62 Pulse: 70 66 66 86 Resp: 18 19 Temp: 36.7 C (98.1 F) TempSrc: Tympanic SpO2: 99% 95% 93% 100% Weight: Height: Intake/Output Summary (Last 24 hours) at 12/28/2019 0819 Last data filed at 12/28/2019 0500 Gross per 24 hour Intake 1240 ml Output 450 ml Net 790 ml General: awake with eyes open; in bed with no apparent distress Head: Atraumatic; normocephalic; NGT in place Lungs: Decreased rhonchi after coughing Cardio: Regular rate and rhythm; soft heart sounds GI: abdomen soft; non-distended; active bowel sounds Extremities: No bilateral lower extremity edema Skin: warm and dry Neuro: Does not follow command. Nonverbal and does not answer verbal questions. Moves left arm spontaneously. LABS/IMAGING - reviewed, pertinent results as below: K 3.1 Cr 0.64 ASSESSMENT/PLAN Funmilayo Mcmillan is a 59 year old female with PMH as listed above, admitted to the hospital with: Reduced EF on echocardiogram Left MCA stroke Acute encephalopathy and aphasia likely 2/2 left MCA stroke CAD s/p LAD stent in 2013 Cocaine and THC use HTN Hx of peripheral arterial disease Patient presented with AMS, right sided weakness, and aphasia. CT and MRI showed left acute-subacuteleft MCA infarct. Cardiology was consulted due to new TTE finding of reduced EF (40-45%) and hypokinesis of the inferoseptal and anteroseptal segments. Troponin 0.017->0.013. EKG with left bundle branch block and without significant change from previous EKG. Upon review of TTE with faculty, EF was deemed partly underestimated. Will recommend to obtain limited echocardiogram with contrast for re-evaluation to assess the need of further ischemic workup. Recommendations: - f/u limited echocardiogram with contrast. - Continue aspirin, plavix, atorvastatin, lisinopril, and amlodipine. - Keep K>4 and Mg >[address] Christopher Morris, DO Internal Medicine PGY-2 [place] Team Pager # [phone] 12/28/2019 8:19 AM END OF DAILY PROGRESS NOTE CURRENT MEDICATIONS - reviewed. Current Facility-Administered Medications Medication Dose Route Frequency Last Rate Last Dose NaCl 0.9% (NS) IV infusion 1,000 mL 1,000 mL IV Infusion CONTINUOUS 100 mL/hr at 12/28/19 0237 1,000 mL at 12/28/19 0237 ipratropium (ATROVENT) 0.02 % nebulizer solution 0.5 mg 0.5 mg Inhalation TID 0.5 mg at 12/28/19 0810 Polyethylene Glycol 3350 (MIRALAX) powder 17 g 17 g Enteral BID 17 g at 12/28/19 0808 sennosides-docusate sodium (SENOKOT-S) 8.6-50 mg per tablet 1 tablet 1 tablet Enteral BID 1 tablet at 12/28/19 0808 amLODIPine (NORVASC) tablet 5 mg 5 mg Enteral DAILY 5 mg at 12/28/19 0808 hydralAZINE (APRESOLINE) injection 10 mg 10 mg Slow IV Push Q6HPRN 10 mg at 12/27/19 0521 lisinopriL (PRINIVIL,ZESTRIL) tablet 10 mg 10 mg Enteral BID 10 mg at 12/28/19 0808 risperiDONE (RISPERDAL) tablet 2 mg 2 mg Enteral BID 2 mg at 12/28/19 0809 levETIRAcetam (KEPPRA) 750 mg in NaCl 0.9% (NS) 100 mL IV infusion 750 mg IV Infusion Q12H 750 mg at 12/28/19 0807 niCARdipine (CARDENE I.V.) 40 mg in 200 mL 0.83% Sodium Chloride (RTU) infusion 2.5-15 mg/hr IVInfusion TITRATE Stopped at 12/27/19 0528 aspirin EC tablet 81 mg 81 mg Enteral DAILY 81 mg at 12/28/19 08 atorvastatin (LIPITOR) tablet 40 mg 40 mg Enteral QHS 40 mg at 12/27/192002 famotidine (PEPCID) 40 mg/5 mL (8 mg/mL) suspension 20 mg 20 mg Enteral BID 20 mg at heparin (porcine) injection 5,000 Units 5,000 Units Subcutaneous Q12H 5,000 Units at 12/28/200708 Associated attestation - John White MD - 12/28/2019 7:10 PM CDTI saw and examined the patient today and agree with the resident's note as written by Dr. Morris. I actively participated in the decision-making process. Please see the resident's note for additional details. Her limited repeat echocardiogram is suggestive of moderately decreased LVEF with multiple wall motions abnormalities. Would recommend to continue current medical therapy. Would recommend ischemic workup once patient improves neurologically. John White MD, [facility] Web Specialist Division of Cardiology [facility].Heide Jarvis OTA - 12/27/2019 3:05 PM CDT OCCUPATIONAL THERAPY NOTE: Discharge Recommendations: Therapy Needs and Potential:- Patient would benefit from continued skilled occupational therapy services to address: Decline in basic activities of daily living, Decline in instrumental activities of daily living, Decline in cognition, Decreased strength, Decreased range of motion, Decreased endurance, Decreased coordination and Caregiver training - Patient exhibits limited activity tolerance. - Patient able to follow commands: 1-step No, Multi-step No, Inconsistencies No Challenges to Home Transition:- Requires physical assistance for BADLS - Requires physical assistance for IADLS - Requires supervision or verbal cues for BADLS - Requires supervision or verbal cues for IADLS - No caregiver support - Decreased safety awareness/judgement - Increased risk of falls Equipment Recommendations:TBD when patient able to participate more in OOB activity, however if patient were to discharge home today would recommend Hospital bed, Low air loss mattress and Mechanical lift Precautions: WB: NA General: PPE Utilized: Gloves and Surgical mask, Fall, Feeding tube, Restraints and Hand mitts Bracing: N/A S: Nurse agreeable for patient to participate with occupational therapy. Patient was awake but not alert. Patient gave no indication of PAIN Patient gave no indication of pain this session. O: Patient found semireclining in bed. Restraints reapplied and secured at end of session, Hand mitts donned and secured at end of session. Patient seen this date for the following: ADL Training Patient not alert enough to participate with any ADLs this session. Therapeutic Exercise/Procedure Patient seen for AAROM and PROM: Patient tolerated Shoulder flexion/extension, Shoulder abduction/adduction and Elbow flexion/extension, Patient completed 2 sets of 8 reps Patient left semireclining in bed with call gonzalez in reach. Nursing present, Vital signs stable and Patient resting comfortably. Wrist restraints and hand mitts in place. A: Patient exhibited Poor participation in therapy and responded poorly to treatment this session. No progress toward goals at this time. poor participation remain(s) a limiting factor. P: Daily living activities and Therapeutic exercises to maximize patient's safety and independence with BADLs if patient's participation improves. MARGOT Mccoy Pager [phone] Supervising OTR: Cristina Marinelli Total Timed Treatment Codes: 9 Min Total Treatment Time: 9 Min Keshia Urbano SLP - 12/27/2019 2:49 PM CDTSpeech-Language Pathology 12/27/2019 1415 Second attempt to see patient. However, patient would not rouse to max verbal/tactile stimuli. Will re-attempt clinical swallow re-evaluation tomorrow. Keshia Lugo M.S. CCC-WEB CONTENT EXECUTIVE Speech-Language Pathologist Office: [phone] Pager: [phone] Leland Muse MD - 12/27/2019 1:31 PM CDT Neurocritical Care Attending Note I have been directly involved in the care of this patient including decision- making with house staffand nursing teams at the bedside. Ms Funmilayo Mcmillan is critically ill, 59 year old years old female with a PMH of Past Medical History: Diagnosis Date CAD (coronary artery disease) 08/2013 s/p PCI (SAEID) to proximal LAD, 50% mid focal occlusion of LCx Depression HTN (hypertension) PAD (peripheral artery disease) 05/10/2015 Stroke Tuberculosis was treated for 6 months, was in longterm. now admitted on 12/24/2019 with history per neurology resident admission note- 59 year old female unknown handiness with PMHX of bipolar, depression, HTN, CAD s/p PCI, , PAD, stroke?, TB, drug abuse (crack) who presented with CC of AMS, right side weakness, aphasia. Unknown LSN, patient was seen with her friends. 2 days ago she was found on ground in her living room, she then got up and was laying on bed, 2 hours later her friend was checking on her and she was again laying on ground. She was then seen today sitting arms crossed in her chest and she would not respond, then EMSwas called Daughter saw patient couple months ago, and she was at her baseline (with no focal deficit independent on ADL. At OSH ER, BP 167/104, HR 67, afebrile, RR20, UDS +ve cocaine and HTC, UA negative, TSH wnl, LFT wnl, bmp wnl, cbc mildly elevated wbc of 12.3, trop negative. CTH showed acute-subacute L MCA infact insuperior division. Patient was transferred to [facility] for further workup. MRI brain- 12/26/2019- subacute left MCA infarction- no haemorrhagic transformation; chronic small vessel disease. Interval history:- Remains unresponsive- able to protect her airway; agitated needing Risperidone; Early this AM - sleeping; opening eyes to pain transiently for a few seconds; did not follow simple verbal commands, gaze preference to left side but able to move the gaze spontaneously across midline;right facial UMN weakness, right UE - 1/5 to pain, right LE - 2/5 to pain, localization with left UE& withdrawal on left LE (both 4/5), Active problem list- 1. Left MCA acute ischemic stroke (LDL-109, A1c-5.2%) 2. Active Cocaine abuse 3. At risk for seizures, at risk for stroke 4. History of multiple medical comorbidities-as mentioned abovely this AM- Exam in the NCCU early this AM- sleeping; opening eyes to pain transiently for a few seconds; did not follow simple verbal commands,gaze preference to left side but able to move the gaze spontaneously across midline; right facial UMN weakness, right UE - 1/5 to pain, right LE - 2/5 to pain, localization with left UE & withdrawal on left LE (both 4/5), Temp: [36.5 C (97.7 F)-37.1 C (98.8 F)] Heart Rate (monitor): [65-117] Pulse: [66-123] Resp: [17-31] BP: (103-185)/(68-121) MAP (mmHg): [81-135] ; Lab Results Component Value Date NA 137 12/27/2019 NA 137 12/26/2019 NA 141 12/25/2019 NA 146 (H) 04/12/2014 NA 139 08/23/2013 NA 140 08/22/2013 BUN Date Value 12/27/2019 18 mg/dL 04/12/2014 26 MG/DL (H) Recent Labs 12/26/19 0405 12/27/19 0329 WBC 11.79* 8.97 Intake/Output Summary (Last 24 hours) at 12/27/2019 1331 Last data filed at 12/27/2019 1200 Gross per 24 hour Intake 160 ml Output 365 ml Net -205 ml Plan: 1) Continue neurochecks; aspirin, clopidogrel, atorvastatin * Levetiracetam 750 mg twice a day; start cEEG; 2) cardiopulmonary monitoring- SBP rnly-468-275 mmHg -Continue Lisinopril and Amlodipine 3) Advance enteral intake as tolerated- via NG tube * consider early PEG placement - aim for euvolemia; euthermia and euglycemia 4) DVT/GI prophylaxis- SCD's; SC heparin, bowel regimen 5) Out of bed to chair; PT/OT/speech if feasible *SW to initiated placement procedure Disposition: awaiting stable neurologic, cardiac-pulmonary and hemodynamic status I have spent a total of 45 min of critical care time at the bedside. Leland Richards M.D. Neurocritical Care Unit Attending Adrienne Garcia SW - 12/27/2019 11:57 AM CDTSocial Work note: ROB spoke with daughter, Ayah Scanlon [phone] who assured SW that she is willing and able to provide 24/7 asst/care for patient. Daughter reported their family is willing and able to help if daughterneeds to run an errand, etc. Daughter stated she has a very supportive family. SW provided supportand explained that home health, DME, and provider services would be arranged as well for patient's discharge. Daughter expressed understanding and gratitude, she indicated she will be available to provide caregiver edu when needed To follow Tatiana Ortiz LBSW-IPR [phone] [address] [place] [address] Care Mgmt Dept Adrienne Garcia SW - 12/27/2019 9:56 AM CDTSocial Work note: ROB LM with daughter, Ayah Scanlno [phone] in attempt to further discuss plan of care and dischargeoptions (nurse indicated daughter interested in caring for patient in her home VS intermediate placement) Per MDs-patient aphasic, not following commands, may need PEG tube, needs 24/7 care) To follow and asst TatianaFERNANDO Evans-IPR [phone] [address] [place] [address] Care Mgmt Dept Abhishek Berumen MBBS - 12/27/2019 9:41 AM CDT [facility] PROGRESS NOTE DATE OF SERVICE: 12/27/2019 09:42 Day of Hospitalization: 3 CHIEF COMPLAINT: aphasia, right side weakness, AMS Code status: not addressed: presumed full 24-HOUR EVENTS: TTE : EF 40-45%, wall motion abnormalities. Cardiology consulted Started on CEEG given clinical radiological mismatch Will update family and plan for possible PEG tube placement SBP trending 120's to 160's SUBJECTIVE: Patient lethargic, opens eyes to painful stimuli. Not able to follow commands. STROKE DOCUMENTATION NIH STROKE SCALE NIH STROKE SCALE LOC: 0 Alert: Keenly Responsive LOC QUESTIONS: 2 Answers Neither Question Correctly LOC COMMANDS: 2 Performs Neither Task Correctly BEST GAZE: 2 Forced Deviation VISUAL: 0 No Visual Loss FACIAL PALSY: 2 Partial Paralysis MOTOR ARM-LEFT: 2 Some Effort Against [place] MOTOR ARM-RIGHT: 3 No Effort Against [place] MOTOR LEG-LEFT: 2 Some Effort Against [place] MOTOR LEG-RIGHT: 3 No Effort Against [place] LIMB ATAXIA: 0 Absent SENSORY: 0 Normal BEST LANGUAGE: 3 Mute, Global Aphasia DYSARTHRIA: UN Intubated or Other Physical Barrier, Explain EXTINCTION AND INATTENTION (FORMERLY NEGLECT): 0 No Abnormalty STROKE SCALE INTERVAL: Admission STROKE SCALE TOTAL SCORE: 21 HOSPITAL MEDICATIONS Current Facility-Administered Medications Medication Dose Route Frequency Last Rate Last Dose amLODIPine (NORVASC) tablet 5 mg 5 mg Enteral DAILY 5 mg at 12/27/19 0747 clopidogreL (PLAVIX) tablet 75 mg 75 mg Enteral DAILY 75 mg at 12/27/19 0746 hydralAZINE (APRESOLINE) injection 10 mg 10 mg Slow IV Push Q6HPRN 10 mg at 12/27/19 0521 lisinopriL (PRINIVIL,ZESTRIL) tablet 10 mg 10 mg Enteral BID 10 mg at 12/27/19 0747 risperiDONE (RISPERDAL) tablet 2 mg 2 mg Enteral BID 2 mg at 12/27/19 0747 levETIRAcetam (KEPPRA) 750 mg in NaCl 0.9% (NS) 100 mL IV infusion 750 mg IV Infusion Q12H 750 mg at 12/27/19 0743 niCARdipine (CARDENE I.V.) 40 mg in 200 mL 0.83% Sodium Chloride (RTU) infusion 2.5-15 mg/hr IVInfusion TITRATE Stopped at 12/27/19 0528 aspirin EC tablet 81 mg 81 mg Enteral DAILY 81 mg at 12/27/19 0747 atorvastatin (LIPITOR) tablet 40 mg 40 mg Enteral QHS 40 mg at 12/26/192103 famotidine (PEPCID) 40 mg/5 mL (8 mg/mL) suspension 20 mg 20 mg Enteral BID 20 mg at heparin (porcine) injection 5,000 Units 5,000 Units Subcutaneous Q12H 5,000 Units at PHYSICAL EXAM BP: (103-185)/(68-121) Temp: [36.5 C (97.7 F)-37.1 C (98.8 F)] Temp source: Tympanic (12/26 0800) Pulse: [66-123] Resp: [16-26] SpO2: [93 %-100 %] Height: -- Weight: [48 kg (105 lb 13.1 oz)] BMI (calculated): [18.75] Vitals: 12/27/19 0600 12/27/19 0700 12/27/19 0714 12/27/19 0800 BP: (!) 168/77 (!) 185/99 (!) 170/89 Pulse: 100 110 122 102 Resp: Temp: 37.1 C (98.8 F) TempSrc: Tympanic SpO2: 97% 95% 97% 97% Weight: Height: Intake/Output Summary (Last 24 hours) at 12/25/2019 0522 Last data filed at 12/25/2019 0200 Gross per 24 hour Intake 110 ml Output 840 ml Net -730 ml General: Patient lethargic needs painful stimuli to open eyes, not able to follow commands. Mental Status: Consciousness, attention, concentration: impaired. Speech/ Language: impaired to comprehension, fluency, repetition and naming. Global aphasia Fund of knowledge: APPLE Remote and recent memory: APPLE Cranial Nerves: I. Not tested. II. Left gaze preference, unable to correct to midline III. IV., . Unable to track fingers, moves eyes spontaneously in all directions, prefers left gaze V. APPLE VII. Right UMN facial droop VIII. APPLE IX., X. XI. XII. APPLE Motor: Tone: right side flaccid Bulk: decreased LUE, LLE : atleast 3/5 right upper extremity to painful stimuli : 1/5 RLE : to pain 1-2/5 DTR's: Right Left Bicep 2+ 2+ Triceps 2+ 2+ Brachioradialis 2+ 2+ Patella 1+ 2+ Achilles 1+ 1+ Pathologic reflexes and signs: Babinski: present on right Cerebellar: Nystagmus: neg, FTN, HTS: APPLE, Tremors: neg Sensory: Withdraws to pain in all extremities right > left Gait: APPLE Lungs: clear to auscultation bilaterally Cardio: S1, S2 normal Extremities:no cyanosis,clubbing or edema Neck:supple,no carotid bruit,no JVD Abdomen: soft; non-tender; non-distended; normoactive bowel sounds heard LABS Recent Results (from the past 24 hour(s)) CBC WITH DIFF Collection Time: 12/27/19 3:29 AM Result Value Ref Range WBC 8.97 4.30 - 11.10 10*3/L RBC 4.98 3.93 - 5.25 10*6/L HGB 15.8 (H) 11.6 - 15.0 g/dL HCT 46.0 (H) 35.7 - 45.2 % MCV 92.4 80.6 - 95.5 fL MCH 31.7 25.9 - 32.8 pg MCHC 34.3 31.6 - 35.1 g/dL RDW-SD 41.2 39.0 - 49.9 fL RDW-CV 12.0 12.0 - 15.5 % PLT 193 166 - 358 10*3/L MPV 10.9 9.5 - 12.9 fL NRBC/100 WBC 0.0 0.0 - 10.0 /100 WBCs NRBC x10^3 <0.01 10*3/L GRAN MAT (NEUT) % 81.1 % IMM GRAN % 0.20 % LYMPH % 10.8 % MONO % 7.5 % EOS % 0.2 % BASO % 0.2 % GRAN MAT x10^3(ANC) 7.27 (H) 1.88 - 7.09 10*3/uL IMM GRAN x10^3 <0.03 0.00 - 0.06 10*3/uL LYMPH x10^3 0.97 (L) 1.32 - 3.29 10*3/uL MONO x10^3 0.67 0.33 - 0.92 10*3/uL EOS x10^3 <0.03 (L) 0.03 - 0.39 10*3/uL BASO x10^3 <0.03 0.01 - 0.07 10*3/uL BASIC METABOLIC PANEL (NA, K, CL, CO2, GLUCOSE, BUN, CREATININE, CA) Collection Time: 12/27/19 3:29 AM Result Value Ref Range NA 137 135 - 145 mmol/L K 3.8 3.5 - 5.0 mmol/L CL 106 98 - 108 mmol/L CO2 TOTAL 23 23 - 31 mmol/L AGAP 8 2 - 16 BUN 18 7 - 23 mg/dL GLUCOSE 113 (H) 70 - 110 mg/dL CREATININE 0.69 0.50 - 1.04 mg/dL CALCIUM 9.2 8.6 - 10.6 mg/dL eGFR Calculation (Non-) 87.4 mL/min/1.73m2 eGFR Calculation () 105.9 mL/min/1.73m2 MAGNESIUM Collection Time: 12/27/19 3:29 AM Result Value Ref Range MAGNESIUM 1.8 1.7 - 2.4 mg/dL RADIOLOGY Xr Kub Result Date: 12/26/2019 FINDINGS/IMPRESSION: The tip of the Dobbhoff tube lies within the stomach. Preliminary Report Dictated by Resident: Navi Collazo I reviewed this study and agree. I, Nguyễn Coon MD., have reviewed this study and agree with the above report. Mr Brain Wo Contrast Result Date: 12/26/2019 Motion degraded exam. Large subacute infarct in the left MCA territory with no gross evidence of hemorrhage transformation. Findings were communicated and acknowledged by GILA Prasad at 12:51 PM on 12/26/2019. Preliminary Report Dictated by Resident: Clark Romeo I, Henri Jackson MD., have reviewed this study and agree with the above report. ASSESSMENT AND PLAN Funmilayo Mcmillan is a 59 year old female with PMHx of the following stroke risk factors: HTN, CAD s/p PCI, drug abuse, bipolar, PAD, who presented with right side weakness, global aphasia, confusion. LSN: >24hr, NIHSS 21. CT head acute-subacute infact of L MCA, CTA head and neck showed completeocclusion of L cervical ICA and 50% narrowing of right proximal cervical ICA. Mild focal narrowing of mid basilar artery, some collateral flow over distal MCA. Case discussed with dr Beach and agreed no need for intervention as patient has good collaterals and passed window of intervention. 1. Neuro Subacute-acute ischemic stroke of L MCA, mid M1 occlusion Right gaze, concern for seizure resolved Complete occlusion of L ICA Hx of stroke? Hx of cocaine abuse (UDS +ve cocaine) Plan: Neurochecks Q1H Telemetry BP, SBP 120-160, currently on Cardene drip Avoid hyperthermia, pain and constipation C/w ASA and plavix Atorvastatin 40 mg QHS Fall precautions Consulted PT/OT/ Speech pathology/Primary swallowing screen Avoid BB to control BP CEEG for clinical radiological mismatch 2. Cardiac #CAD s/p PCI # HTN # Multiple PVC # HFrEF ( EF 40-45%) EKG: sinus bradycardia Troponin: negative Plan: SBP goal: 120-160 On Cardene drip Start lisinopril 10 mg daily TTE with reduced EF, cardiology consulted 3. Pulmonary COPD CXR : chronic emphysematous changes Plan: Monitor respiratory status Saturating well on RA 4. GI Failed swallow test S/p NGT Nutrition: Enteral Rate: 50ml/hr. Last BM: na Plan: Jevity of feeds Famotidine for GI ppx 5. Renal No issues Electrolytes NA 137/3.8, BUN : 18, Creatinine : 0.69 Rogers: in place Plan: Monitor I/O 6. ID No acute issues Temp (24hrs), Av.7 C (98 F), Min:36.7 C (98 F), Max:36.7 C (98 F) Cultures: not indicated ABx: none Plan: Monitor temp curve 7. Endo No active issues Monitor BG Hgb A1c 5.2 IV access: PIV X 2 Rogers: inplace Antibiotic(s): not indicated - GI Prophylaxis: famotidine - DVT Prophylaxis: heparin Discussed and seen with Dr. Richadrs, neurology faculty. Ata Weiss MD, PGY-3, Neurology Pager: [phone] Associated attestation - Leland Richards MD - 12/27/2019 1:43 PM CDTI personally examined this patient- named-Ms Funmilayo Mcmillan on 12/27/[address] Berumen 's resident note with the following addition(s): as documented in my own note. I actively participated in the decision-making process. Please see the resident's note for additional details. Leland Richards MD Neurocritical Care Unit Attending Keshia Lugo SLP - 12/27/2019 9:24 AM CDTSpeech-Language Pathology 12/27/2019 0915 Attempted to see patient for clinical swallow re-evaluation. However, RN reports patient recently given ativan so EEG can be completed. RN also reports that patient with questionable secretion management. Will re-attempt later this date as time permits. Keshia Lugo [facility] Speech-Language Pathologist Office: [phone] Pager: [phone] eland Richards MD - 12/26/2019 1:43 PM CDT Neurocritical Care Attending Note I have been directly involved in the care of this patient including decision- making with house staffand nursing teams at the bedside. Ms Funmilayo Mcmillan is critically ill, 59 year old years old female with a PMH of Past Medical History: Diagnosis Date CAD (coronary artery disease) 08/2013 s/p PCI (SAEID) to proximal LAD, 50% mid focal occlusion of LCx Depression HTN (hypertension) PAD (peripheral artery disease) 05/10/2015 Stroke Tuberculosis was treated for 6 months, was in longterm. now admitted on 12/24/2019 with history per neurology resident admission note- 59 year old female unknown handiness with PMHX of bipolar, depression, HTN, CAD s/p PCI, , PAD, stroke?, TB, drug abuse (crack) who presented with CC of AMS, right side weakness, aphasia. Unknown LSN, patient was seen with her friends. 2 days ago she was found on ground in her living room, she then got up and was laying on bed, 2 hours later her friend was checking on her and she was again laying on ground. She was then seen today sitting arms crossed in her chest and she would not respond, then EMSwas called Daughter saw patient couple months ago, and she was at her baseline (with no focal deficit independent on ADL. At OSH ER, BP 167/104, HR 67, afebrile, RR20, UDS +ve cocaine and HTC, UA negative, TSH wnl, LFT wnl, bmp wnl, cbc mildly elevated wbc of 12.3, trop negative. CTH showed acute-subacute L MCA infact insuperior division. Patient was transferred to [facility] for further workup.. Interval history:- Patient has remained neurologically stable- opening eyes to voice/ pain transiently for a few seconds; did not follow simple verbal commands, gaze preference to left side but able to move the gaze spontaneously across midline; right facial UMN weakness, right UE - 1/5 to pain, right LE - 2/5 to pain, l ocalization with left UE & withdrawal on left LE (both 4/5), Active problem list- 1. Left MCA acute ischemic stroke (LDL-109, A1c-5.2%) 2. Active Cocaine abuse 3. At risk for seizures, at risk for stroke 4. History of multiple medical comorbidities-as mentioned abovely this AM- Exam in the NCCU early this AM- opening eyes to voice/ pain transiently for a few seconds; did not follow simple verbal commands, gaze preference to left side but able to move the gaze spontaneously across midline; right facial UMN weakness, right UE - 1/5 to pain, right LE - 2/5 to pain, localization with left UE & withdrawal on left LE (both 4/5), Temp: [36.4 C (97.5 F)-37.4 C (99.3 F)] Heart Rate (monitor): [65-96] Pulse: [63-98] Resp: [16-26] BP: (110-178)/(74-104) MAP (mmHg): [87-124] ; Lab Results Component Value Date NA 137 12/26/2019 NA 141 12/25/2019 NA 139 12/24/2019 NA 146 (H) 04/12/2014 NA 139 08/23/2013 NA 140 08/22/2013 BUN Date Value 12/26/2019 10 mg/dL 04/12/2014 26 MG/DL (H) Recent Labs 12/25/19 0306 12/26/19 0405 WBC 9.78 11.79* MRI brain- 12/26/2019- subacute left MCA infarction- no haemorrhagic transformation; chronic small vessel disease Intake/Output Summary (Last 24 hours) at 12/26/2019 1343 Last data filed at 12/26/2019 1200 Gross per 24 hour Intake 1234 ml Output 1515 ml Net -281 ml Plan: 1) Continue neurochecks; aspirin, clopidogrel, atorvastatin * Levetiracetam 750 mg twice a day; 2) cardiopulmonary monitoring- SBP nbsd-159-606 mmHg - add Lisinopril and Amlodipine - to wean off Nicardipine 3) Advance enteral intake as tolerated- via NG tube - aim for euvolemia; euthermia and euglycemia 4) DVT/GI prophylaxis- SCD's; SC heparin, bowel regimen 5) Out of bed to chair; PT/OT/speech if feasible Disposition: awaiting stable neurologic, cardiac-pulmonary and hemodynamic status I have spent a total of 40 min of critical care time at the bedside. Leland Richards M.D. Neurocritical Care Unit Attending Abhishek Grijalva MBBS - 12/26/2019 9:27 AM CDT [facility] CR[facility] UNIT PROGRESS NOTE DATE OF SERVICE: 12/26/2019 09:27 Day of Hospitalization: 2 CHIEF COMPLAINT: aphasia, right side weakness, AMS Code status: not addressed: presumed full 24-HOUR EVENTS: MRI brain : Left MCA territory infarct, no evidence of hemorrhagic transformation SBP trending : 140's to 180's on Cardene, planning to taper off Dobbhoff tube cleared, started on tube feeds SUBJECTIVE: Patient opens intermittently to voice, unable to follow commands. STROKE DOCUMENTATION NIH STROKE SCALE NIH STROKE SCALE LOC: 0 Alert: Keenly Responsive LOC QUESTIONS: 2 Answers Neither Question Correctly LOC COMMANDS: 2 Performs Neither Task Correctly BEST GAZE: 2 Forced Deviation VISUAL: 0 No Visual Loss FACIAL PALSY: 2 Partial Paralysis MOTOR ARM-LEFT: 2 Some Effort Against [place] MOTOR ARM-RIGHT: 3 No Effort Against [place] MOTOR LEG-LEFT: 2 Some Effort Against [place] MOTOR LEG-RIGHT: 3 No Effort Against [place] LIMB ATAXIA: 0 Absent SENSORY: 0 Normal BEST LANGUAGE: 3 M[place], Global Aphasia DYSARTHRIA: UN Intubated or Other Physical Barrier, Explain EXTINCTION AND INATTENTION (FORMERLY NEGLECT): 0 No Abnormalty STROKE SCALE INTERVAL: Admission STROKE SCALE TOTAL SCORE: 21 HOSPITAL MEDICATIONS Current Facility-Administered Medications Medication Dose Route Frequency Last Rate Last Dose clopidogreL (PLAVIX) tablet 75 mg 75 mg Enteral DAILY 75 mg at 12/26/19 0808 lisinopriL (PRINIVIL,ZESTRIL) tablet 5 mg 5 mg Enteral DAILY 5 mg at 12/26/19 0808 LORazepam (ATIVAN) injection 2 mg 2 mg Slow IV Push ONCE levETIRAcetam (KEPPRA) 750 mg in NaCl 0.9% (NS) 100 mL IV infusion 750 mg IV Infusion Q12H 750 mg at 12/26/19 0808 niCARdipine (CARDENE I.V.) 40 mg in 200 mL 0.83% Sodium Chloride (RTU) infusion 2.5-15 mg/hr IVInfusion TITRATE 25 mL/hr at 12/26/19 0716 5 mg/hr at 12/26/19 0716 aspirin EC tablet 81 mg 81 mg Enteral DAILY 81 mg at 12/26/19 0808 atorvastatin (LIPITOR) tablet 40 mg 40 mg Enteral QHS 40 mg at 12/25/191937 famotidine (PEPCID) 40 mg/5 mL (8 mg/mL) suspension 20 mg 20 mg Enteral BID 20 mg at heparin (porcine) injection 5,000 Units 5,000 Units Subcutaneous Q12H 5,000 Units at risperiDONE (RISPERDAL) tablet 2 mg 2 mg Enteral QAM 2 mg at 12/26/19 08 PHYSICAL EXAM BP: (120-170)/(75-103) Temp: [36.2 C (97.2 F)-37.4 C (99.3 F)] Temp source: Tympanic (12/25 0800) Pulse: [52-89] Resp: [16-26] SpO2: [93 %-99 %] Height: -- Weight: -- BMI (calculated): -- Vitals: 12/26/19 0400 12/26/19 0500 12/26/19 0600 12/26/19 0800 BP: (!) 165/96 (!) 146/92 (!) 162/97 Pulse: 79 80 79 Resp: Temp: 36.7 C (98.1 F) 36.4 C (97.5 F) TempSrc: Tympanic Tympanic SpO2: 93% 95% 95% Weight: Height: Intake/Output Summary (Last 24 hours) at 12/25/2019 0522 Last data filed at 12/25/2019 0200 Gross per 24 hour Intake 110 ml Output 840 ml Net -730 ml General: Patient is awake open eyes sometimes spontaneously, unable to follow commands. Mental Status: Consciousness, attention, concentration: impaired. Speech/ Language: impaired to comprehension, fluency, repetition and naming. Global aphasia Fund of knowledge: APPLE Remote and recent memory: APPLE Cranial Nerves: I. Not tested. II. Left gaze preference, able to correct to midline III. IV., . Unable to track fingers, moves eyes spontaneously in all directions, prefers left gaze V. APPLE VII. Right UMN facial droop VIII. APPLE IX., X. XI. XII. APPLE Motor: Tone: right side flaccid Bulk: decreased LUE, LLE : atleast 3/5 right upper extremity to painful stimuli : 1/5 RLE : to pain 1-2/5 DTR's: Right Left Bicep 2+ 2+ Triceps 2+ 2+ Brachioradialis 2+ 2+ Patella 1+ 2+ Achilles 1+ 1+ Pathologic reflexes and signs: Babinski: present bilaterally Cerebellar: Nystagmus: neg, FTN, HTS: APPLE, Tremors: neg Sensory: Withdraws to pain in all extremities right > left Gait: APPLE Lungs: clear to auscultation bilaterally Cardio: S1, S2 normal Extremities:no cyanosis,clubbing or edema Neck:supple,no carotid bruit,no JVD Abdomen: soft; non-tender; non-distended; normoactive bowel sounds heard LABS Recent Results (from the past 24 hour(s)) CBC WITH DIFF Collection Time: 12/26/19 4:05 AM Result Value Ref Range WBC 11.79 (H) 4.30 - 11.10 10*3/L RBC 4.80 3.93 - 5.25 10*6/L HGB 15.4 (H) 11.6 - 15.0 g/dL HCT 45.2 35.7 - 45.2 % MCV 94.2 80.6 - 95.5 fL MCH 32.1 25.9 - 32.8 pg MCHC 34.1 31.6 - 35.1 g/dL RDW-SD 42.5 39.0 - 49.9 fL RDW-CV 12.2 12.0 - 15.5 % PLT 205 166 - 358 10*3/L MPV 10.5 9.5 - 12.9 fL NRBC/100 WBC 0.0 0.0 - 10.0 /100 WBCs NRBC x10^3 <0.01 10*3/L GRAN MAT (NEUT) % 82.9 % IMM GRAN % 0.40 % LYMPH % 10.4 % MONO % 5.9 % EOS % 0.1 % BASO % 0.3 % GRAN MAT x10^3(ANC) 9.76 (H) 1.88 - 7.09 10*3/uL IMM GRAN x10^3 0.05 0.00 - 0.06 10*3/uL LYMPH x10^3 1.23 (L) 1.32 - 3.29 10*3/uL MONO x10^3 0.70 0.33 - 0.92 10*3/uL EOS x10^3 <0.03 (L) 0.03 - 0.39 10*3/uL BASO x10^3 0.04 0.01 - 0.07 10*3/uL BASIC METABOLIC PANEL (NA, K, CL, CO2, GLUCOSE, BUN, CREATININE, CA) Collection Time: 12/26/19 4:05 AM Result Value Ref Range NA 137 135 - 145 mmol/L K 3.7 3.5 - 5.0 mmol/L CL 108 98 - 108 mmol/L CO2 TOTAL 21 (L) 23 - 31 mmol/L AGAP 8 2 - 16 BUN 10 7 - 23 mg/dL GLUCOSE 107 70 - 110 mg/dL CREATININE 0.57 0.50 - 1.04 mg/dL CALCIUM 8.4 (L) 8.6 - 10.6 mg/dL eGFR Calculation (Non-) 108.9 mL/min/1.73m2 eGFR Calculation () 132.0 mL/min/1.73m2 TROPONIN I Collection Time: 12/26/19 4:05 AM Result Value Ref Range TROPONIN I 0.013 <=0.034 ng/mL RADIOLOGY Xr Chest 1 Vw Result Date: 12/24/2019 Chronic emphysematous changes. No pleural effusion, pneumothorax or consolidative process. Preliminary Report Dictated by Resident: Dorene Yuen I, Isaiah Valentine MD., have reviewed this study and agree with the above report. Ct Angiogram Head Result Date: 12/24/2019 Complete occlusion of the left cervical ICA from just distal to the bulb through the supraclinoid segment at the level of the ophthalmic artery. Short segment opacification of the left M1 segment is noted before an abrupt cut off within the mid M1 segment. There is some vascularity noted within the distal MCA candelabra likely related to collateral flow over the convexity. Short segment moderate narrowing of the right proximal cervical ICA (up to 50%) Mild to moderate focal narrowing of the mid basilar artery Ct Head Wo Contrast Result Date: 12/24/2019 Acute-subacute infarct in the left MCA territory with an ASPECTS score of around 3. No evidence of hemorrhagic transformation These findings were discussed with Dr. Mclean at the time of report dictation Ct Angiogram Neck Result Date: 12/24/2019 Complete occlusion of the left cervical ICA from just distal to the bulb through the supraclinoid segment at the level of the ophthalmic artery. Short segment opacification of the left M1 segment is noted before an abrupt cut off within the mid M1 segment. There is some vascularity noted within the distal MCA candelabra likely related to collateral flow over the convexity. Short segment moderate narrowing of the right proximal cervical ICA (up to 50%) Mild to moderate focal narrowing of the mid basilar artery ASSESSMENT AND PLAN Funmilayo Mcmillan is a 59 year old female with PMHx of the following stroke risk factors: HTN, CAD s/p PCI, drug abuse, bipolar, PAD, who presented with right side weakness, global aphasia, confusion. LSN: >24hr, NIHSS 21. CT head acute-subacute infact of L MCA, CTA head and neck showed completeocclusion of L cervical ICA and 50% narrowing of right proximal cervical ICA. Mild focal narrowing of mid basilar artery, some collateral flow over distal MCA. Case discussed with dr Beach and agreed no need for intervention as patient has good collaterals and passed window of intervention. 1. Neuro Subacute-acute ischemic stroke of L MCA, mid M1 occlusion Right gaze, concern for seizure resolved Complete occlusion of L ICA Hx of stroke? Hx of cocaine abuse (UDS +ve cocaine) Plan: Neurochecks Q1H Telemetry BP, SBP 120-160, currently on Cardene drip Avoid hyperthermia, pain and constipation C/w ASA and plavix Atorvastatin 40 mg QHS Fall precautions Consulted PT/OT/ Speech pathology/Primary swallowing screen Avoid BB to control BP EEG could not be done as patient was moving and unable to stay still TTE pending 2. Cardiac #CAD s/p PCI # HTN # Multiple PVC EKG: sinus bradycardia Troponin: negative Plan: SBP goal: 120-160 On Cardene drip Start lisinopril 10 mg daily TTE pending 3. Pulmonary COPD CXR : chronic emphysematous changes Plan: Monitor respiratory status Saturating well on RA 4. GI Failed swallow test S/p NGT Nutrition: Enteral Rate: 50ml/hr. Last BM: na Plan: Jevity of feeds Famotidine for GI ppx 5. Renal No issues Electrolytes NA 137/3.7, BUN : 10, Creatinine : 0.57 Rogers: inplace Plan: Monitor I/O 6. ID No acute issues Temp (24hrs), Av.7 C (98 F), Min:36.7 C (98 F), Max:36.7 C (98 F) Cultures: not indicated ABx: none Plan: Monitor temp curve 7. Endo No active issues Monitor BG Hgb A1c 5.2 IV access: PIV X 2 Rogers: inplace Antibiotic(s): not indicated - GI Prophylaxis: famotidine - DVT Prophylaxis: heparin Discussed and seen with Dr. Richards, neurology faculty. Ata Weiss MD, PGY-3, Neurology Pager: Associated attestation - Leland Richards MD - 12/26/2019 1:52 PM CDTI personally examined this patient- named-Ms Funmilayo Mcmillan on 12/26/[address] Berumen 's resident note with the following addition(s): as documented in my own note. I actively participated in the decision-making process. Please see the resident's note for additional details. Leland Richards MD Neurocritical Care Unit Attending Leland Richards MD - 12/25/2019 12:11 PM CDT Neurocritical Care Attending Note I have been directly involved in the care of this patient including decision- making with house staffand nursing teams at the bedside. Ms Funmilayo Mcmillan is critically ill, 59 year old years old female with a PMH of Past Medical History: Diagnosis Date CAD (coronary artery disease) 08/2013 s/p PCI (SAEID) to proximal LAD, 50% mid focal occlusion of LCx Depression HTN (hypertension) PAD (peripheral artery disease) 05/10/2015 Stroke Tuberculosis was treated for 6 months, was in longterm. now admitted on 12/24/2019 with history per neurology resident admission note- 59 year old female unknown handiness with PMHX of bipolar, depression, HTN, CAD s/p PCI, , PAD, stroke?, TB, drug abuse (crack) who presented with CC of AMS, right side weakness, aphasia. Unknown LSN, patient was seen with her friends. 2 days ago she was found on ground in her living room, she then got up and was laying on bed, 2 hours later her friend was checking on her and she was again laying on ground. She was then seen today sitting arms crossed in her chest and she would not respond, then EMSwas called Daughter saw patient couple months ago, and she was at her baseline (with no focal deficit independent on ADL. At OSH ER, BP 167/104, HR 67, afebrile, RR20, UDS +ve cocaine and HTC, UA negative, TSH wnl, LFT wnl, bmp wnl, cbc mildly elevated wbc of 12.3, trop negative. CTH showed acute-subacute L MCA infact insuperior division. Patient was transferred to [facility] for further workup.. Interval history:- Patient has remained neurologically stable- opening eyes to voice/ Pain transiently for a few seconds; did not follow simple verbal commands, gaze preference to right side but able to move the gaze spontaneously across midline; right facial UMN weakness, right UE - 1/5 to pain, right LE - 2/5 to pain,weak localization with left UE & LE ( 4/5), Active problem list- 1. Left MCA acute ischemic stroke (LDL-109, A1c-5.2%) 2. Active Cocaine abuse 3. At risk for seizures, at risk for stroke 4. History of multiple medical comorbidities-as mentioned abovely this AM- opening eyes to voice/ Pain transiently for a few seconds; did not follow simple verbal commands, gaze preference to right side but able to move the gaze spontaneously across midline; right facial UMN weakness, right UE - 1/5 to pain, right LE - 2/5 to pain, weak localization with left UE & LE ( 4/5), Temp: [36.4 C (97.5 F)-36.9 C (98.4 F)] Heart Rate (monitor): [44-80] Pulse: [46-91] Resp: [13-29] BP: (115-210)/(73-126) MAP (mmHg): [89-134] ; Lab Results Component Value Date NA 141 12/25/2019 NA 139 12/24/2019 NA 142 11/14/2018 NA 146 (H) 04/12/2014 NA 139 08/23/2013 NA 140 08/22/2013 BUN Date Value 12/25/2019 16 mg/dL 04/12/2014 26 MG/DL (H) Recent Labs 12/24/19 1241 12/25/19 0306 WBC 12.30* 9.78 Intake/Output Summary (Last 24 hours) at 12/25/2019 1211 Last data filed at 12/25/2019 0800 Gross per 24 hour Intake 1328.5 ml Output 1075 ml Net 253.5 ml Plan: 1) Continue neurochecks; aspirin, clopidogrel, atorvastatin * Start levetiracetam (1000 mg IV load--> 750 mg twice a day) 2) cardiopulmonary monitoring- SBP hyyq-[id number] mmHg 3) Advance PO intake as tolerated- if swallow safe - aim for euvolemia; euthermia and euglycemia 4) DVT/GI prophylaxis- SCD's; SC heparin, bowel regimen 5) Out of bed to chair; PT/OT/speech if feasible Disposition: awaiting stable neurologic, cardiac-pulmonary and hemodynamic status I have spent a total of 45 min of critical care time at the bedside. Leland Richards M.D. Neurocritical Care Unit Attending Pedro Pablo Choudhury MBBS - 12/25/2019 5:22 AM CDT [facility]OSCIENCES CR[facility]ICAL CARE UNIT PROGRESS NOTE DATE OF SERVICE: 12/25/2019 05:22 Day of Hospitalization: 1 CHIEF COMPLAINT: aphasia, right side weakness, AMS Code status: not addressed: presumed full 24-HOUR EVENTS: Tele: frequent PVC and sinus chay during night SUBJECTIVE: Patient is awake respond to command STROKE DOCUMENTATION NIH STROKE SCALE NIH STROKE SCALE LOC: 0 Alert: Keenly Responsive LOC QUESTIONS: 2 Answers Neither Question Correctly LOC COMMANDS: 2 Performs Neither Task Correctly BEST GAZE: 2 Forced Deviation VISUAL: 0 No Visual Loss FACIAL PALSY: 2 Partial Paralysis MOTOR ARM-LEFT: 2 Some Effort Against [place] MOTOR ARM-RIGHT: 3 No Effort Against [place] MOTOR LEG-LEFT: 2 Some Effort Against [place] MOTOR LEG-RIGHT: 3 No Effort Against [place] LIMB ATAXIA: 0 Absent SENSORY: 0 Normal BEST LANGUAGE: 3 Mute, Global Aphasia DYSARTHRIA: UN Intubated or Other Physical Barrier, Explain EXTINCTION AND INATTENTION (FORMERLY NEGLECT): 0 No Abnormalty STROKE SCALE INTERVAL: Admission STROKE SCALE TOTAL SCORE: 21 HOSPITAL MEDICATIONS Current Facility-Administered Medications Medication Dose Route Frequency Last Rate Last Dose aspirin EC tablet 81 mg 81 mg Enteral DAILY atorvastatin (LIPITOR) tablet 40 mg 40 mg Enteral QHS 40 mg at 12/25/19 0038 famotidine (PEPCID) 40 mg/5 mL (8 mg/mL) suspension 20 mg 20 mg Enteral BID 20 mg at heparin (porcine) injection 5,000 Units 5,000 Units Subcutaneous Q12H 5,000 Units at labetaloL (NORMODYNE) injection 20 mg 20 mg Slow IV Push ONCE Stopped at 12/24/19 2215 NaCl 0.9% (NS) 1000 mL + KCL 20 mEq IV Infusion CONTINUOUS 75 mL/hr at 12/24/19 1651 niCARdipine (CARDENE I.V.) 40 mg in 200 mL 0.83% Sodium Chloride (RTU) infusion 2.5-15 mg/hr IVInfusion TITRATE 12.5 mL/hr at 12/24/19 2139 2.5 mg/hr at 12/24/19 2139 risperiDONE (RISPERDAL) tablet 2 mg 2 mg Enteral QAM PHYSICAL EXAM BP: (115-210)/(74-110) Temp: [36.6 C (97.9 F)-36.9 C (98.4 F)] Temp source: Tympanic (12/24 0000) Pulse: [50-91] Resp: [13-29] SpO2: [97 %-100 %] Height: [160 cm (5' 3")] Weight: [48 kg (105 lb 13.1 oz)-52.2 kg (115 lb)] BMI (calculated): [0-18.75] Vitals: 12/24/19 2300 12/25/19 0000 12/25/19 0100 12/25/19 0200 BP: (!) 156/104 127/74 (!) 154/106 137/81 Pulse: 62 54 50 65 Resp: 14 13 15 14 Temp: 36.9 C (98.4 F) TempSrc: Tympanic SpO2: 100% 100% 100% 100% Weight: Height: Intake/Output Summary (Last 24 hours) at 12/25/2019 0522 Last data filed at 12/25/2019 0200 Gross per 24 hour Intake 110 ml Output 840 ml Net -730 ml General: Patient is awake open eyes sometimes spontaneously unable speck thus unable to assess orientation. Cachectic Mental Status: Consciousness, attention, concentration: impaired. Speech/ Language: impaired to comprehension, fluency, repetition and naming. Global aphasia Fund of knowledge: APPLE Remote and recent memory: APPLE Cranial Nerves: I. Not tested. II. Right gaze preference, APPLE FOV III. IV., . Extraocular movements intact without nystagmus. V. APPLE VII. Right facial droop with ptosis of eye VIII. APPLE IX., X. XI. XII. APPLE Motor: Tone: right side flaccid Bulk: decreased STRENGTH Right Left Deltoid 1 4 Biceps 1 4 Triceps 1 4 - Wrist extensors 1 4- Interossei 1 4 Hip flexors 2 at least 4 Knee flexors (hamstring) 2 at least 4 Knee extensors(quadriceps) 2 at least 4 Ankle dorsiflexors 2 at least 4 Ankle plantarflexors 2 at least 4 DTR's: Right Left Bicep 2+ 2+ Triceps 2+ 2+ Brachioradialis 2+ 2+ Patella 2+ 2+ Achilles 2+ 2+ Pathologic reflexes and signs: Sahni: absent Babinski: +ve in right side Cerebellar: Nystagmus: neg, FTN, HTS: APPLE, Tremors: neg Sensory: APPLE Gait: differed Lungs: clear to auscultation bilaterally Cardio: S1, S2 normal Extremities:no cyanosis,clubbing or edema Neck:supple,no carotid bruit,no JVD Abdomen: soft; non-tender; non-distended; normoactive bowel sounds heard LABS Recent Results (from the past 24 hour(s)) AC PANEL 21 + LACTIC ACID Collection Time: 12/24/19 12:40 PM Result Value Ref Range PH 7.45 (H) 7.32 - 7.42 PCO2 GAMA 38 (L) 41 - 51 mmHg PO2 GAMA 30 25 - 40 mmHg HCO3 GAMA 26 24 - 28 mEq/L AC VBE(BEAKER) 1.9 mEq/L THB GAMA 17.2 (H) 12.0 - 16.0 g/dL %O2HB GAMA 61.0 52.0 - 63.0 % %COHB GAMA 1.4 0.0 - 1.5 % %METHB GAMA 0.3 (L) 0.4 - 1.5 % VOL%O2 GAMA 14.7 (H) 6.0 - 12.0 % NA 142 135 - 145 mmol/L K+ 3.7 3.5 - 5.0 mmol/L AC CA IONZ 4.60 4.50 - 5.30 mg/dL GLUCOSE 129 (H) 70 - 110 mg/dL LACTIC ACID 2.01 mmol/L CBC with Differential Collection Time: 12/24/19 12:41 PM Result Value Ref Range WBC 12.30 (H) 4.30 - 11.10 10*3/L RBC 5.25 3.93 - 5.25 10*6/L HGB 16.7 (H) 11.6 - 15.0 g/dL HCT 49.3 (H) 35.7 - 45.2 % MCV 93.9 80.6 - 95.5 fL MCH 31.8 25.9 - 32.8 pg MCHC 33.9 31.6 - 35.1 g/dL RDW-SD 43.6 39.0 - 49.9 fL RDW-CV 12.6 12.0 - 15.5 % PLT 229 166 - 358 10*3/L MPV 10.5 9.5 - 12.9 fL NRBC/100 WBC 0.0 0.0 - 10.0 /100 WBCs NRBC x10^3 <0.01 10*3/L GRAN MAT (NEUT) % 82.1 % IMM GRAN % 0.40 % LYMPH % 10.5 % MONO % 6.7 % EOS % 0.1 % BASO % 0.2 % GRAN MAT x10^3(ANC) 10.11 (H) 1.88 - 7.09 10*3/uL IMM GRAN x10^3 0.05 0.00 - 0.06 10*3/uL LYMPH x10^3 1.29 (L) 1.32 - 3.29 10*3/uL MONO x10^3 0.82 0.33 - 0.92 10*3/uL EOS x10^3 <0.03 (L) 0.03 - 0.39 10*3/uL BASO x10^3 <0.03 0.01 - 0.07 10*3/uL Basic Metabolic Panel (NA, K, CL, CO2, GLUCOSE, BUN, CREATININE, CA) Collection Time: 12/24/19 12:41 PM Result Value Ref Range NA 139 135 - 145 mmol/L K 3.5 3.5 - 5.0 mmol/L CL 103 98 - 108 mmol/L CO2 TOTAL 27 23 - 31 mmol/L AGAP 9 2 - 16 BUN 16 7 - 23 mg/dL GLUCOSE 127 (H) 70 - 110 mg/dL CREATININE 0.81 0.50 - 1.04 mg/dL CALCIUM 9.9 8.6 - 10.6 mg/dL eGFR Calculation (Non-) 72.6 mL/min/1.73m2 eGFR Calculation () 88.0 mL/min/1.73m2 Hepatic Function Panel (ALB, T.PRO, BILI T, BU/BC, ALT, AST, ALK PHOS) Collection Time: 12/24/19 12:41 PM Result Value Ref Range TOTAL BILI 0.7 0.1 - 1.1 mg/dL BILI UNCON 0.8 0.1 - 1.1 mg/dL BILI CONJ 0.0 0.0 - 0.3 mg/dL T PROTEIN 7.8 6.3 - 8.2 g/dL ALBUMIN 4.2 3.5 - 5.0 g/dL ALK PHOS 66 34 - 122 U/L ALTv 20 5 - 35 U/L AST(SGOT) 32 13 - 40 U/L Troponin I Collection Time: 12/24/19 12:41 PM Result Value Ref Range TROPONIN I 0.017 <=0.034 ng/mL aPTT Collection Time: 12/24/19 12:41 PM Result Value Ref Range APTT Patient 23 23 - 38 Seconds Prothrombin Time (PT) / INR Collection Time: 12/24/19 12:41 PM Result Value Ref Range PROTIME PATIENT 13.0 12.0 - 14.7 Seconds INR 1.0 FREE T4 Collection Time: 12/24/19 12:41 PM Result Value Ref Range FREE T4 1.18 0.78 - 2.20 ng/dL: FREE T3 Collection Time: 12/24/19 12:41 PM Result Value Ref Range FREE T3 3.15 2.77 - 5.27 pg/mL THYROID STIMULATING HORMONE Collection Time: 12/24/19 12:41 PM Result Value Ref Range TSH 2.06 0.45 - 4.70 mIU/L SALICYLATE Collection Time: 12/24/19 12:41 PM Result Value Ref Range SALICYLATE <10 mg/L ETHANOL Collection Time: 12/24/19 12:41 PM Result Value Ref Range ALCOHOL <10 mg/dL MAGNESIUM Collection Time: 12/24/19 12:41 PM Result Value Ref Range MAGNESIUM 1.9 1.7 - 2.4 mg/dL FASTING LIPID PANEL (87148)(TOTAL CHOLESTEROL, TRIGLYCERIDES, HDL) Collection Time: 12/24/19 12:41 PM Result Value Ref Range CHOL 211 (H) 120 - 200 mg/dL HDL 80 >50 mg/dL HDLC RATIO 2.6 <=4.5 TRIG 109 30 - 170 mg/dL LDL CHOL 109 <=160 mg/dL VLDL 22 5 - 60 mg/dL GLYCOSYLATED HEMOGLOBIN (A1C) Collection Time: 12/24/19 12:41 PM Result Value Ref Range HGB A1C 5.2 4.0 - 6.0 % ADC / LCC - DRUG SCREEN TRIAGE Collection Time: 12/24/19 12:42 PM Result Value Ref Range BENZO U Negative Negative NAOMI U Negative Negative AMPHET Negative Negative THC Presumptive Positive (A) Negative METHADONE Negative Negative Meth U Negative Negative OPIATES Negative Negative Cocaine Metabolite Presumptive Positive (A) Negative PROPOXY Negative Negative Tric U Negative Negative PCP Negative Negative OXYCOD Negative Negative Urinalysis Collection Time: 12/24/19 12:43 PM Result Value Ref Range APPEARANCE Clear Clear COLOR Yellow Yellow PH 5.0 4.8 - 8.0 SP GRAVITY 1.023 1.003 - 1.030 GLU U QUAL Normal Normal BLOOD 2+ (A) Negative KETONES 5 mg/dL (A) Negative PROTEIN 100 mg/dL (A) Negative UROBILIN Normal Normal BILIRUBIN Negative Negative NITRITE Negative Negative LEUK LOGAN Negative Negative RBC/HPF 5 (H) 0 - 3 HPF WBC/HPF 2 0 - 5 HPF BACTERIA Negative Negative MUCOUS Slight (A) Negative LPF SQ EPITH <1 HPF GRAN CASTS 1 <=1 LPF COVID-19 (ID NOW RAPID TESTING) Collection Time: 12/24/19 1:53 PM Specimen: NASOPHARYNGEAL SWAB Result Value Ref Range SARS-CoV-2 Rapid ID NOW Not Detected Not Detected CBC WITHOUT DIFF Collection Time: 12/25/19 3:06 AM Result Value Ref Range WBC 9.78 4.30 - 11.10 10*3/L RBC 5.03 3.93 - 5.25 10*6/L HGB 15.6 (H) 11.6 - 15.0 g/dL HCT 47.5 (H) 35.7 - 45.2 % MCH 31.0 25.9 - 32.8 pg MCV 94.4 80.6 - 95.5 fL MCHC 32.8 31.6 - 35.1 g/dL PLT 241 166 - 358 10*3/L MPV 10.4 9.5 - 12.9 fL RDW-CV 12.8 12.0 - 15.5 % RDW-SD 44.0 39.0 - 49.9 fL NRBC x10^3 <0.01 10*3/L NRBC/100 WBC 0.0 0.0 - 10.0 /100 WBCs IPF % BASIC METABOLIC PANEL (NA, K, CL, CO2, GLUCOSE, BUN, CREATININE, CA) Collection Time: 12/25/19 3:06 AM Result Value Ref Range NA 141 135 - 145 mmol/L K 4.6 3.5 - 5.0 mmol/L CL 109 (H) 98 - 108 mmol/L CO2 TOTAL 23 23 - 31 mmol/L AGAP 9 2 - 16 BUN 16 7 - 23 mg/dL GLUCOSE 96 70 - 110 mg/dL CREATININE 0.76 0.50 - 1.04 mg/dL CALCIUM 8.8 8.6 - 10.6 mg/dL eGFR Calculation (Non-) 78.2 mL/min/1.73m2 eGFR Calculation () 94.7 mL/min/1.73m2 RADIOLOGY Xr Chest 1 Vw Result Date: 12/24/2019 Chronic emphysematous changes. No pleural effusion, pneumothorax or consolidative process. Preliminary Report Dictated by Resident: Isaiah Elliott MD., have reviewed this study and agree with the above report. Ct Angiogram Head Result Date: 12/24/2019 Complete occlusion of the left cervical ICA from just distal to the bulb through the supraclinoid segment at the level of the ophthalmic artery. Short segment opacification of the left M1 segment is noted before an abrupt cut off within the mid M1 segment. There is some vascularity noted within the distal MCA candelabra likely related to collateral flow over the convexity. Short segment moderate narrowing of the right proximal cervical ICA (up to 50%) Mild to moderate focal narrowing of the mid basilar artery Ct Head Wo Contrast Result Date: 12/24/2019 Acute-subacute infarct in the left MCA territory with an ASPECTS score of around 3. No evidence of hemorrhagic transformation These findings were discussed with Dr. Mclean at the time of report dictation Ct Angiogram Neck Result Date: 12/24/2019 Complete occlusion of the left cervical ICA from just distal to the bulb through the supraclinoid segment at the level of the ophthalmic artery. Short segment opacification of the left M1 segment is noted before an abrupt cut off within the mid M1 segment. There is some vascularity noted within the distal MCA candelabra likely related to collateral flow over the convexity. Short segment moderate narrowing of the right proximal cervical ICA (up to 50%) Mild to moderate focal narrowing of the mid basilar artery ASSESSMENT AND PLAN Funmilayo Mcmillan is a 59 year old female with PMHx of the following stroke risk factors: HTN, CAD s/p PCI, drug abuse, bipolar, PAD, who presented with right side weakness, global aphasia, confusion. LSN: >24hr, NIHSS 21. CT head acute-subacute infact of L MCA, CTA head and neck showed completeocclusion of L cervical ICA and 50% narrowing of right proximal cervical ICA. Mild focal narrowing of mid basilar artery, some collateral flow over distal MCA. Case discussed with dr Beach and agreed no need for intervention as patient has good collaterals and passed window of intervention. 1. Neuro Subacute-acute ischemic stroke of L MCA, mid M1 occlusion Right gaze, concern for seizure Complete occlusion of L ICA Hx of stroke? Hx of cocaine abuse (UDS +ve cocaine) Stroke etiology: Vessel to vessel embolism Plan: Neurochecks Q1H Telemetry BP, SBP 160-120, currently on Cardene drip Check CBC, BMP, Pt, PTT, cardiac enzymes x 1, EKG Avoid hyperthermia, pain and constipation C/w ASA Statin 20mg daily if LDL>70, will adjust according to fasting lipid panel Fall precautions Consult PT/OT/ Speech pathology/Primary swallowing screen MRI brain wo contrast pending Avoid BB to control BP EEG Started on plavix 2. Cardiac CAD s/p PCI HTN Multiple PVC EKG: sinus chay Troponin: negative Plan: SBP goal: 120-160 On Cardene drip 3. Pulmonary CXR chronic emphysematous changes VBG 7.45// Plan: Monitor respiratory status 4. GI Failed swallow test S/p NGT Nutrition: Enteral Rate: 50ml/hr. Last BM: na Plan: GI regimen NGT Titrate diet 5. Renal No issues Electrolytes NA 139, K3.5, Cr 0.81, BUN 16 Rogers: inplace Plan: Monitor I/O 6. ID No acute issues Temp (24hrs), Av.7 C (98 F), Min:36.7 C (98 F), Max:36.7 C (98 F) Cultures: not indicated ABx: non Plan: Monitor temp curve 7. Endo Monitor BG Hgb A1c 5.2 Insulin Sliding Scale IV access: PIV [place]: inplace Antibiotic(s): not indicated - GI Prophylaxis: famotidine - DVT Prophylaxis: heparin Discussed and seen with Dr. Richards, neurology faculty. Pedro Pablo Newsome MD Neurology, PGY-2 Pager # [phone] Associated attestation - Leland Richards MD - 12/25/2019 12:26 PM CDTI personally examined this patient- named-Ms Funmilayo Mcmillan on 12/25/[address] Newsome 's resident note with the following addition(s): as documented in my own note. I actively participated in the decision-making process. Please see the resident's note for additional details. Leland Richards MD Neurocritical Care Unit Attending documented in this encounter H&P Notes Pedro Pablo Newsome MBBS - 12/24/2019 5:43 PM CDT [facility]UROSCIENCES CRITICAL CARE UNIT HISTORY AND PHYSICAL DATE OF SERVICE: 12/24/2019 17:43 CHIEF COMPLAINT: aphasia, right side weakness, AMS Code status: not addressed: presumed full HISTORY OF PRESENT ILLNESS History is very limited and was taken from daughter (Ayah) and chart review Funmilayo Mcmillan is a 59 year old female unknown handiness with PMHX of bipolar, depression, HTN, CAD s/p PCI, , PAD, stroke?, TB, drug abuse (crack) who presented with CC of AMS, right side weakness, aphasia. Unknown LSN, patient was seen with her friends. 2 days ago she was found on ground in her living room, she then got up and was laying on bed, 2 hours later her friend was checking on her and she was again laying on ground. She was then seen today sitting arms crossed in her chest and she would not respond, then EMS was called Daughter saw patient couple months ago, and she was at her baseline (with no focal deficit independent on ADL At OSH ER, BP 167/104, HR 67, afebrile, RR20, UDS +ve cocaine and HTC, UA negative, TSH wnl, LFT wnl, bmp wnl, cbc mildly elevated wbc of 12.3, trop negative. CTH showed acute-subacute L MCA infact. Patient was transferred to [facility] for further workup. Antiplatelets: No Anticoagulations: No Tobacco abuse: Yes 1 pack every 2 days Alcohol abuse: Yes, last drink last week Drug abuse: Yes crack Previous stroke: No Body mass index is 18.75 kg/m. STROKE DOCUMENTATION Stroke Activation - Date: (not recorded) Stroke Activation - Time: (not recorded) Neurology arrival at bedside - Date: (not recorded) Neurology arrival at bedside - Time: (not recorded) CT-Head without contrast read by Neurology: (not recorded) Last seen normal: Last known well - Date: (not recorded) Last known well - Time: (not recorded) Wake up stroke: No NIH STROKE SCALE NIHSS TOTAL: 21 NIHSS Interval: Admission LOC: 0 Alert: Keenly Responsive LOC QUESTIONS: 2 Answers Neither Question Correctly LOC COMMANDS: 2 Performs Neither Task Correctly BEST GAZE: 2 Forced Deviation VISUAL: 0 No Visual Loss FACIAL PALSY: 2 Partial Paralysis MOTOR ARM-LEFT: 2 Some Effort Against [place] MOTOR ARM-RIGHT: 3 No Effort Against [place] MOTOR LEG-LEFT: 2 Some Effort Against [place] MOTOR LEG-RIGHT: 3 No Effort Against [place] LIMB ATAXIA: 0 Absent SENSORY: 0 Normal BEST LANGUAGE: 3 Mute, Global Aphasia DYSARTHRIA: UN Intubated or Other Physical Barrier, Explain EXTINCTION AND INATTENTION (FORMERLY NEGLECT): 0 No Abnormalty Dysphagia Screen: Dysphagia Screen Step 1: Patient is not alert or awake for 5 minutes or greater IV Alteplase: Was Alteplase/IV thrombolytic therapy given?: No Reason no IV Alteplase/IV thrombolytic therapy initiated: Arrival > 4.5 hours from symptom onset If IV Alteplase therapy was indicated and given as a standard of care was the patient/family informed of benefits of treatment and risk such as hemorrhage and/or angioedema?: (not recorded) Was there a delay greater than 45 minutes: (not recorded) Reason (s): (not recorded) ICH/SAH ICH/SAH: No Endovascular Intervention: Was Endovascular Intervention Performed?: No Reason patient is not a candidate for endovascular intervention: Last known well > 24 hours PRE- ADMISSION MODIFIED ALIN SCORE 0 - No symptoms at all PAST MEDICAL HISTORY Past Medical History: Diagnosis Date CAD (coronary artery disease) 08/2013 s/p PCI (SAEID) to proximal LAD, 50% mid focal occlusion of LCx Depression HTN (hypertension) PAD (peripheral artery disease) 05/10/2015 Stroke Tuberculosis was treated for 6 months, was in longterm. PAST SURGICAL HISTORY No past surgical history on file. FAMILY HISTORY Family History Problem Relation Age of Onset Coronary Heart Disease Maternal Aunt SOCIAL HISTORY Social History Socioeconomic History Marital status: Single Spouse name: Not on file Number of children: Not on file Years of education: Not on file Highest education level: Not on file Occupational History Not on file Social Needs Financial resource strain: Not on file Food insecurity Worry: Not on file Inability: Not on file Transportation needs Medical: Not on file Non-medical: Not on file Tobacco Use Smoking status: Former Smoker Packs/day: 1.00 Types: Cigarettes Start date: 02/01/1973 Smokeless tobacco: Former User Types: Snuff Quit date: 06/02/1999 Tobacco comment: started smoking at 13 years old, uses a pack every 2 days when not smoking. Substance and Sexual Activity Alcohol use: Yes Alcohol/week: 0.0 standard drinks Comment: 3 beers daily Drug use: Yes Types: "Crack" cocaine Comment: history of crack cocaine, synthetic marijuana Sexual activity: Not on file Lifestyle Physical activity Days per week: Not on file Minutes per session: Not on file Stress: Not on file Relationships Social connections Talks on phone: Not on file Gets together: Not on file Attends taoist service: Not on file Active member of club or organization: Not on file Attends meetings of clubs or organizations: Not on file Relationship status: Not on file Intimate partner violence Fear of current or ex partner: Not on file Emotionally abused: Not on file Physically abused: Not on file Forced sexual activity: Not on file Other Topics Concern Not on file Social History Narrative She lives with a friend. She's on disability. She's active. Reviewed patient's family, surgical and social hx. HOME MEDICATIONS Medications Prior to Admission Medication Sig Dispense Refill Last Dose meloxicam 7.5 mg tablet Take 1 tablet by mouth daily. Ok to take 15mg daily (2 tablets) if 1 tablet does not help the pain. Take with food. 60 tablet 3 metoprolol succinate XL 50 mg 24 hr tablet Take 1 tablet by mouth daily. 90 tablet 3 Taking simvastatin 40 mg tablet Take 1 tablet by mouth at bedtime. 90 tablet 3 Taking aspirin 81 mg EC tablet Take 1 tablet by mouth daily. Taking citalopram (CELEXA) 40 mg tablet Take 1 Tab by mouth daily. 30 Tab 4 Taking risperiDONE (RISPERDAL) 2 mg tablet Take 1 Tab by mouth every morning. 30 Tab 4 Taking HOSPITAL MEDICATIONS Current Facility-Administered Medications Medication Dose Route Frequency Last Rate Last Dose [START ON 12/25/2019] aspirin EC tablet 81 mg 81 mg Enteral DAILY atorvastatin (LIPITOR) tablet 40 mg 40 mg Enteral QHS famotidine (PEPCID) 40 mg/5 mL (8 mg/mL) suspension 20 mg 20 mg Enteral BID heparin (porcine) injection 5,000 Units 5,000 Units Subcutaneous Q12H NaCl 0.9% (NS) 1000 mL + KCL 20 mEq IV Infusion CONTINUOUS 75 mL/hr at 12/24/19 1651 niCARdipine (CARDENE I.V.) 40 mg in 200 mL 0.83% Sodium Chloride (RTU) infusion 2.5-15 mg/hr IVInfusion TITRATE Stopped at 12/24/19 1404 niCARdipine (CARDENE I.V.) 40 mg in 200 mL 0.83% Sodium Chloride (RTU) infusion 2.5-15 mg/hr IVInfusion TITRATE [START ON 12/25/2019] risperiDONE (RISPERDAL) tablet 2 mg 2 mg Enteral QAM ALLERGY No Known Allergies REVIEW OF SYSTEMS General: (-) fever, (-) chills, (-) weight change, (-) dizziness, (-) fatigue, (-) change in appetite Skin: (-) rash, (-) lesion HEENT: (-) headache, (-) change in hearing, (-) change in vision, (-) nasal discharge, (-) sore throat Neck: (-) pain, (-) difficulty swallowing, (-) mass Heme: (-) bleeding disorder Resp: (-) cough, (-) shortness of breath, (-) dyspnea on exertion Cardio: (-) chest pain, (-) palpitations, (-) syncope GI: (-) abdominal pain, (-) nausea, (-) vomiting, (-) diarrhea, (-) constipation, (-) melena, (-) hematochezia, (-) hematemesis : (-) dysuria, (-) hematuria, (-) increased frequency, (-) difficulty urinating, (-) difficulty initiating Endo: (-) heat intolerance, (-) diabetes, (-) cold intolerance, (-) polyuria, (- ) polydipsia, (-) renal insufficiency, (-) thyroid disease Neuro: See HPI Back: (-) pain, (-)spasms NATHANIEL: (-) muscle pain, (-) joint pain, (-) claudication Psych: (-) anxiety, (-) depression, (-) psychiatric disorder PHYSICAL EXAM BP: (167-210)/(99-110) Temp: [36.7 C (98 F)-36.8 C (98.2 F)] Temp source: Tympanic (12/24 1599) Pulse: [59-91] Resp: [14-20] SpO2: [97 %-100 %] Height: [160 cm (5' 3")] Weight: [48 kg (105 lb 13.1 oz)-52.2 kg (115 lb)] BMI (calculated): [0-18.75] Vitals: 12/24/19 1400 12/24/19 1415 12/24/19 1430 12/24/19 1600 BP: (!) 199/99 (!) 180/110 (!) 195/109 (!) 180/103 Pulse: 59 91 64 79 Resp: 18 17 20 19 Temp: 36.8 C (98.2 F) TempSrc: Tympanic SpO2: 99% 99% 98% 97% Weight: 48 kg (105 lb 13.1 oz) Height: 1.6 m (5' 3") No intake or output data in the 24 hours ending 12/24/19 1624 Awake Patients General: Patient is awake open eyes sometimes spontaneously unable speck thus unable to assess orientation. Cachectic Mental Status: Consciousness, attention, concentration: impaired, able to follow simple command by showing 2 fingers and holding hand Speech/ Language: impaired to comprehension, fluency, repetition and naming. Global aphasia Fund of knowledge: APPLE Remote and recent memory: APPLE Cranial Nerves: I. Not tested. II. Left gaze preference, APPLE FOV III. IV., . Extraocular movements intact without nystagmus. V. APPLE VII. Right facial droop with ptosis of eye VIII. APPLE IX., X. XI. XII. APPLE Motor: Tone: right side flaccid Bulk: decreased STRENGTH Right Left Deltoid 1 4 Biceps 1 4 Triceps 1 4 - Wrist extensors 1 4- Interossei 1 4 Hip flexors 1 at least 4 Knee flexors (hamstring) 1 at least 4 Knee extensors (quadriceps) 1 at least 4 Ankle dorsiflexors 1 at least 4 Ankle plantar flexors 1 at least 4 DTR's: Right Left Bicep 2+ 2+ Triceps 2+ 2+ Brachioradialis 2+ 2+ Patella 2+ 2+ Achilles 2+ 2+ Pathologic reflexes and signs: Sahni: absent Babinski: +ve in right side Cerebellar: Nystagmus: neg, FTN, HTS: APPLE, Tremors: neg Sensory: APPLE Gait: differed Lungs: clear to auscultation bilaterally Cardio: S1, S2 normal Extremities:no cyanosis,clubbing or edema Neck:supple,no carotid bruit,no JVD Abdomen: soft; non-tender; non-distended; normoactive bowel sounds heard LABS Recent Results (from the past 24 hour(s)) AC PANEL 21 + LACTIC ACID Collection Time: 12/24/19 12:40 PM Result Value Ref Range PH 7.45 (H) 7.32 - 7.42 PCO2 GAMA 38 (L) 41 - 51 mmHg PO2 GAMA 30 25 - 40 mmHg HCO3 GAMA 26 24 - 28 mEq/L AC VBE(BEAKER) 1.9 mEq/L THB GAMA 17.2 (H) 12.0 - 16.0 g/dL %O2HB GAMA 61.0 52.0 - 63.0 % %COHB GAMA 1.4 0.0 - 1.5 % %METHB GAMA 0.3 (L) 0.4 - 1.5 % VOL%O2 GAMA 14.7 (H) 6.0 - 12.0 % NA 142 135 - 145 mmol/L K+ 3.7 3.5 - 5.0 mmol/L AC CA IONZ 4.60 4.50 - 5.30 mg/dL GLUCOSE 129 (H) 70 - 110 mg/dL LACTIC ACID 2.01 mmol/L CBC with Differential Collection Time: 12/24/19 12:41 PM Result Value Ref Range WBC 12.30 (H) 4.30 - 11.10 10*3/L RBC 5.25 3.93 - 5.25 10*6/L HGB 16.7 (H) 11.6 - 15.0 g/dL HCT 49.3 (H) 35.7 - 45.2 % MCV 93.9 80.6 - 95.5 fL MCH 31.8 25.9 - 32.8 pg MCHC 33.9 31.6 - 35.1 g/dL RDW-SD 43.6 39.0 - 49.9 fL RDW-CV 12.6 12.0 - 15.5 % PLT 229 166 - 358 10*3/L MPV 10.5 9.5 - 12.9 fL NRBC/100 WBC 0.0 0.0 - 10.0 /100 WBCs NRBC x10^3 <0.01 10*3/L GRAN MAT (NEUT) % 82.1 % IMM GRAN % 0.40 % LYMPH % 10.5 % MONO % 6.7 % EOS % 0.1 % BASO % 0.2 % GRAN MAT x10^3(ANC) 10.11 (H) 1.88 - 7.09 10*3/uL IMM GRAN x10^3 0.05 0.00 - 0.06 10*3/uL LYMPH x10^3 1.29 (L) 1.32 - 3.29 10*3/uL MONO x10^3 0.82 0.33 - 0.92 10*3/uL EOS x10^3 <0.03 (L) 0.03 - 0.39 10*3/uL BASO x10^3 <0.03 0.01 - 0.07 10*3/uL Basic Metabolic Panel (NA, K, CL, CO2, GLUCOSE, BUN, CREATININE, CA) Collection Time: 12/24/19 12:41 PM Result Value Ref Range NA 139 135 - 145 mmol/L K 3.5 3.5 - 5.0 mmol/L CL 103 98 - 108 mmol/L CO2 TOTAL 27 23 - 31 mmol/L AGAP 9 2 - 16 BUN 16 7 - 23 mg/dL GLUCOSE 127 (H) 70 - 110 mg/dL CREATININE 0.81 0.50 - 1.04 mg/dL CALCIUM 9.9 8.6 - 10.6 mg/dL eGFR Calculation (Non-) 72.6 mL/min/1.73m2 eGFR Calculation () 88.0 mL/min/1.73m2 Hepatic Function Panel (ALB, T.PRO, BILI T, BU/BC, ALT, AST, ALK PHOS) Collection Time: 12/24/19 12:41 PM Result Value Ref Range TOTAL BILI 0.7 0.1 - 1.1 mg/dL BILI UNCON 0.8 0.1 - 1.1 mg/dL BILI CONJ 0.0 0.0 - 0.3 mg/dL T PROTEIN 7.8 6.3 - 8.2 g/dL ALBUMIN 4.2 3.5 - 5.0 g/dL ALK PHOS 66 34 - 122 U/L ALTv 20 5 - 35 U/L AST(SGOT) 32 13 - 40 U/L Troponin I Collection Time: 12/24/19 12:41 PM Result Value Ref Range TROPONIN I 0.017 <=0.034 ng/mL aPTT Collection Time: 12/24/19 12:41 PM Result Value Ref Range APTT Patient 23 23 - 38 Seconds Prothrombin Time (PT) / INR Collection Time: 12/24/19 12:41 PM Result Value Ref Range PROTIME PATIENT 13.0 12.0 - 14.7 Seconds INR 1.0 FREE T4 Collection Time: 12/24/19 12:41 PM Result Value Ref Range FREE T4 1.18 0.78 - 2.20 ng/dL: FREE T3 Collection Time: 12/24/19 12:41 PM Result Value Ref Range FREE T3 3.15 2.77 - 5.27 pg/mL THYROID STIMULATING HORMONE Collection Time: 12/24/19 12:41 PM Result Value Ref Range TSH 2.06 0.45 - 4.70 mIU/L SALICYLATE Collection Time: 12/24/19 12:41 PM Result Value Ref Range SALICYLATE <10 mg/L ETHANOL Collection Time: 12/24/19 12:41 PM Result Value Ref Range ALCOHOL <10 mg/dL MAGNESIUM Collection Time: 12/24/19 12:41 PM Result Value Ref Range MAGNESIUM 1.9 1.7 - 2.4 mg/dL FASTING LIPID PANEL (85543)(TOTAL CHOLESTEROL, TRIGLYCERIDES, HDL) Collection Time: 12/24/19 12:41 PM Result Value Ref Range CHOL 211 (H) 120 - 200 mg/dL HDL 80 >50 mg/dL HDLC RATIO 2.6 <=4.5 TRIG 109 30 - 170 mg/dL LDL CHOL 109 <=160 mg/dL VLDL 22 5 - 60 mg/dL GLYCOSYLATED HEMOGLOBIN (A1C) Collection Time: 12/24/19 12:41 PM Result Value Ref Range HGB A1C 5.2 4.0 - 6.0 % ADC / LCC - DRUG SCREEN TRIAGE Collection Time: 12/24/19 12:42 PM Result Value Ref Range BENZO U Negative Negative NAOMI U Negative Negative AMPHET Negative Negative THC Presumptive Positive (A) Negative METHADONE Negative Negative Meth U Negative Negative OPIATES Negative Negative Cocaine Metabolite Presumptive Positive (A) Negative PROPOXY Negative Negative Tric U Negative Negative PCP Negative Negative OXYCOD Negative Negative Urinalysis Collection Time: 12/24/19 12:43 PM Result Value Ref Range APPEARANCE Clear Clear COLOR Yellow Yellow PH 5.0 4.8 - 8.0 SP GRAVITY 1.023 1.003 - 1.030 GLU U QUAL Normal Normal BLOOD 2+ (A) Negative KETONES 5 mg/dL (A) Negative PROTEIN 100 mg/dL (A) Negative UROBILIN Normal Normal BILIRUBIN Negative Negative NITRITE Negative Negative LEUK LOGAN Negative Negative RBC/HPF 5 (H) 0 - 3 HPF WBC/HPF 2 0 - 5 HPF BACTERIA Negative Negative MUCOUS Slight (A) Negative LPF SQ EPITH <1 HPF GRAN CASTS 1 <=1 LPF COVID-19 (ID NOW RAPID TESTING) Collection Time: 12/24/19 1:53 PM Specimen: NASOPHARYNGEAL SWAB Result Value Ref Range SARS-CoV-2 Rapid ID NOW Not Detected Not Detected STROKE LABS HGB A1C (%) Date Value 12/24/2019 5.2 LDL CHOL (mg/dL) Date Value 12/24/2019 109 CHOL (mg/dL) Date Value 12/24/2019 211 (H) TSH (mIU/L) Date Value 12/24/2019 2.06 Recent Labs 12/24/19 1241 TROPNI 0.017 RADIOLOGY Xr Chest 1 Vw Result Date: 12/24/2019 Chronic emphysematous changes. No pleural effusion, pneumothorax or consolidative process. Preliminary Report Dictated by Resident: Dorene Yuen I, Isaiah Valentine MD., have reviewed this study and agree with the above report. Ct Head Wo Contrast Result Date: 12/24/2019 Acute-subacute infarct in the left MCA territory with an ASPECTS score of around 3. No evidence of hemorrhagic transformation These findings were discussed with Dr. Mclean at the time of report dictation ASSESSMENT AND PLAN Funmilayo Mcmillan is a 59 year old female with PMHx of the following stroke risk factors: HTN, CAD s/p PCI, drug abuse, bipolar, PAD, who presented with right side weakness, global aphasia, confusion. LSN: >24hr, NIHSS 21. CT head acute-subacute infact of L MCA, CTA head and neck showed completeocclusion of L cervical ICA and 50% narrowing of right proximal cervical ICA. Mild focal narrowing of mid basilar artery, some collateral flow over distal MCA. Case discussed with dr Beach and agreed no need for intervention as patient has good collaterals and passed window of intervention. 1. Neuro Subacute-acute ischemic stroke of L MCA, mid M1 occlusion Complete occlusion of L ICA Hx of stroke? Hx of cocaine abuse (UDS +ve cocaine) Stroke etiology: Vessel to vessel embolism Plan: Admission to [facility] Neurochecks Q1H Telemetry BP, SBP 160-120, currently on Cardene drip Check CBC, BMP, Pt, PTT, cardiac enzymes x 1, EKG Avoid hyperthermia, pain and constipation Aspirin 325 mg now and Aspirin 81 daily from tomorrow Statin 20mg daily if LDL>70, will adjust according to fasting lipid panel Fall precautions Consult PT/OT/ Speech pathology/Primary swallowing screen MRI brain wo contrast Avoid BB to control BP 2. Cardiac CAD s/p PCI HTN EKG: pending Troponin: negative Plan: SBP goal: 120-160 On Cardene drip 3. Pulmonary TB? From chart CXR chronic emphysematous changes VBG 7.45// Plan: Monitor respiratory status 4. GI Failed swallow test S/p NGT Nutrition: Enteral Rate: 50ml/hr. Last BM: na Plan: GI regimen NGT 5. Renal No issues Electrolytes NA 139, K3.5, Cr 0.81, BUN 16 Rogers: inplace Plan: Monitor I/O 6. ID Mildly elevated WBC Temp (24hrs), Av.7 C (98 F), Min:36.7 C (98 F), Max:36.7 C (98 F) Cultures: not indicated ABx: non Plan: Monitor temp curve 7. Endo Monitor BG Check HbA1C Insulin Sliding Scale IV access: PIV Rogers: inplace Antibiotic(s): not indicated - GI Prophylaxis: famotidine - DVT Prophylaxis: heparin Discussed with Dr. Richards, neurology faculty. Pedro Pablo Newsome MD Neurology, PGY-2 Pager # [phone] Associated attestation - Leland Richards MD - 12/25/2019 12:26 PM CDTI discussed on phone this patient- named- Ms Funmilayo Mcmillan on 12/24/[address] Newsome's resident admission note. I actively participated in the decision- making process. Please see the resident's note for additional details. Leland Richards MD Neurocritical Care Unit Attending Leland Richards MD Neurocritical Care Unit Attending documented in this encounter Procedure Notes Renan Marcial MD - 12/30/2019 6:53 PM CDTVASCULAR AND INTERVENTIONAL RADIOLOGY PROCEDURE NOTE Pre-procedure diagnosis: CVA Post-procedure diagnosis: same Procedure: Successful G tube placement Findings: 16 F G tube intragastric placement Complications: none Condition: stable Estimated blood loss: Less than 5 mL Full dictated note to follow in PACS. Associated attestation - Issa Verma DO - 12/30/2019 6:55 PM CDTI, as a teaching physician, was present during the entire procedure and/or during the oleary components. I agree with the resident/fellow note. Issa Verma DO Faculty [facility]-Vascular and Interventional Radiology [phone] documented in this encounter Consult Notes Funmilayo Clark RN - 01/10/2020 2:27 PM CDTAssociated Order(s): CONSULT WOUND CARE NURSE WOCN Note Consult for PEG site dressings. Tube placed 12/29. . Past Medical History: Diagnosis Date CAD (coronary artery disease) 08/2013 s/p PCI (SAEID) to proximal LAD, 50% mid focal occlusion of LCx Depression HTN (hypertension) PAD (peripheral artery disease) 05/10/2015 Stroke Tuberculosis was treated for 6 months, was in longterm. .BP 113/71 (BP Location: Left arm, Patient Position: Supine) | Pulse 79 | Temp 36.3 C (97.4 F) (Oral) | Resp 16 | Ht 1.6 m (5' 3") | Wt 52 kg (114 lb 9.6 oz) | SpO2 97% | BMI 20.30 kg/m . Recent Labs 01/10/20 0312 WBC 11.21* ASSESSMENT: LUQ PEG tube with moderate rodriguez purulent drainage from tube insertion site. Redness present to periwound extending out ~1.5cm with mild induration. No hypergranulation tissue seen during exam. RECOMMENDATIONS: Cleanse site with chlorhexidine wash daily. Allow to dry and apply drain sponge. Change daily and prn if saturated. May need abx per primary team. Funmilayo Clark RN 01/10/2020 2:34 PM Geovany Cruz MD - 01/09/2020 9:28 AM CDTAssociated Order(s): CONSULT INFECTIOUS DISEASE INFECTIOUS DISEASES CONSULT NOTE Date of Service: 01/09/2020 Consultation requested by: Dr. Richards Reason for Consultation: leucocytosis Chief Complaint: aphasia, rt sided weakness, AMS History of Present Illness: 59 year-old female with PMHX of HTN, HLD, CAD, Stroke, PAD,TB, drug abuse (crack) who presented to the hospital with CC of AMS, right side weakness, aphasia. Unknown last normal, patient was seen withher friends. 2 days before admission she was found on ground in her living room, she then got up andwas laying on bed, 2 hours later her landlord/flatmate was checking on her and she was again laying on ground. She was then seen today sitting arms crossed in her chest and she would not respond, then EMS was called -Daughter saw patient couple months ago, and she was at her baseline (with no focal deficit independent on ADL. -Id is consulted as she is noted to have an elevated wbc and to r/o infection. -currently patient is aphasic, she is not able to provide any history, it is obtained from her chartand by taking to daughter and her flatmate/landlord on the phone. Past Medical History: Past Medical History: Diagnosis Date CAD (coronary artery disease) 08/2013 s/p PCI (SAEID) to proximal LAD, 50% mid focal occlusion of LCx Depression HTN (hypertension) PAD (peripheral artery disease) 05/10/2015 Stroke Tuberculosis was treated for 6 months, was in longterm. No Known Allergies Medications: Current Facility-Administered Medications Medication Dose Route Frequency Last Rate Last Dose acetaminophen (TYLENOL) 160 mg/5 mL liquid 650 mg 650 mg Enteral Q4HPRN 650 mg at 01/09/20 0844 lisinopriL (PRINIVIL,ZESTRIL) tablet 20 mg 20 mg Enteral BID 20 mg at 01/09/20 0809 amLODIPine (NORVASC) tablet 10 mg 10 mg Enteral DAILY 10 mg at 01/09/20 0809 clopidogreL (PLAVIX) tablet 75 mg 75 mg Enteral DAILY 75 mg at 01/09/20 0809 risperiDONE (RISPERDAL) tablet 0.5 mg 0.5 mg Enteral BID 0.5 mg at 01/09/20 0809 acetylcysteine (MUCOMYST) 200 mg/mL (20 %) solution 200 mg 1 mL Inhalation Q6H 200 mg at 01/09/20 0809 chlorhexidine (PERIDEX) 0.12 % mouthwash 15 mL 15 mL Oral (Swish And Spit Out) Q6H Stopped at1 1200 ipratropium-albuteroL (DUONEB) 0.5 mg-3 mg(2.5 mg base)/3 mL nebulizer solution 3 mL 3 mL Inhalation Q6H ABX 3 mL at 01/09/20 0809 Saline Bubble Study 6 mL Injection SEE-INSTRUCTIONS 6 mL at 12/29/19 1500 Saline Bubble Study 6 mL Injection SEE-INSTRUCTIONS 6 mL at 12/29/19 1500 levETIRAcetam (KEPPRA) 100 mg/mL oral solution 750 mg 750 mg Enteral BID 750 mg at 01/09/20 0809 Polyethylene Glycol 3350 (MIRALAX) powder 17 g 17 g Enteral BID Stopped at 01/07/20 0800 sennosides-docusate sodium (SENOKOT-S) 8.6-50 mg per tablet 1 tablet 1 tablet Enteral BID Stopped at 01/07/20 0800 hydralAZINE (APRESOLINE) injection 10 mg 10 mg Slow IV Push Q6HPRN 10 mg at 01/04/202039 aspirin EC tablet 81 mg 81 mg Enteral DAILY 81 mg at 01/09/20808 atorvastatin (LIPITOR) tablet 40 mg 40 mg Enteral QHS 40 mg at 01/08/202004 famotidine (PEPCID) 40 mg/5 mL (8 mg/mL) suspension 20 mg 20 mg Enteral BID 20 mg at heparin (porcine) injection 5,000 Units 5,000 Units Subcutaneous Q12H 5,000 Units at Social History: +tobacco use, +cocaine use. Social History Socioeconomic History Marital status: Single Spouse name: Not on file Number of children: Not on file Years of education: Not on file Highest education level: Not on file Occupational History Not on file Social Needs Financial resource strain: Not on file Food insecurity Worry: Not on file Inability: Not on file Transportation needs Medical: Not on file Non-medical: Not on file Tobacco Use Smoking status: Former Smoker Packs/day: 1.00 Types: Cigarettes Start date: 02/01/1973 Smokeless tobacco: Former User Types: Snuff Quit date: 06/02/1999 Tobacco comment: started smoking at 13 years old, uses a pack every 2 days when not smoking. Substance and Sexual Activity Alcohol use: Yes Alcohol/week: 0.0 standard drinks Comment: 3 beers daily Drug use: Yes Types: "Crack" cocaine Comment: history of crack cocaine, synthetic marijuana Sexual activity: Not on file Lifestyle Physical activity Days per week: Not on file Minutes per session: Not on file Stress: Not on file Relationships Social connections Talks on phone: Not on file Gets together: Not on file Attends taoist service: Not on file Active member of club or organization: Not on file Attends meetings of clubs or organizations: Not on file Relationship status: Not on file Intimate partner violence Fear of current or ex partner: Not on file Emotionally abused: Not on file Physically abused: Not on file Forced sexual activity: Not on file Other Topics Concern Not on file Social History Narrative She lives with a friend. She's on disability. She's active. Family History: Family History Problem Relation Age of Onset Coronary Heart Disease Maternal Aunt Review of Systems: Patient is aphasic, she is not able to provide any history or ros. Physical Examination: Vitals: 01/08/20 2333 01/09/20 0340 01/09/20 0756 01/09/20 0809 BP: 138/84 (!) 151/94 (!) 166/95 BP Location: Patient Position: Pulse: 91 88 91 95 Resp: 18 18 18 18 Temp: 36.4 C (97.6 F) 36.9 C (98.4 F) 37.1 C (98.8 F) TempSrc: Oral Oral Oral SpO2: 98% 96% 98% 98% Weight: Height: General: patient opens eyes spontaneously, does not follow commands, not verbal. Eyes: anicteric sclerae ENT: oropharynx clear; moist mucous membranes Lungs: diminished breath sounds b/l Cardio: S1, S2 +, muffled heart sounds. GI: abdomen soft; normoactive bowel sounds. +pus seen around chest tube. Extremities: no edema Skin: warm and dry; no rash, +thrombophlebitis on lt antecubital fossa. Neuro: patient does not follow commands, not able to evaluate. Hem/lymph: +LN over rt neck. Laboratory: WBC x10^3 (/uL) Date Value 04/12/2014 7.9 WBC (10*3/L) Date Value 01/09/2020 16.99 (H) HGB Date Value 01/09/2020 13.5 g/dL 04/12/2014 13.6 G/DL PLT x10^3 (/uL) Date Value 04/12/2014 206 PLT (10*3/L) Date Value 01/09/2020 286 CREATININE Date Value 01/07/2020 0.70 mg/dL 04/12/2014 1.00 MG/DL GLUCOSE Date Value 01/07/2020 113 mg/dL (H) 04/12/2014 92 MG/DL ALT(SGPT) (U/L) Date Value 11/14/2018 14 12/02/2004 29 ALTv (U/L) Date Value 12/24/2019 20 AST(SGOT) (U/L) Date Value 12/24/2019 32 12/02/2004 22 ALK PHOS (U/L) Date Value 12/24/2019 66 12/02/2004 58 Abx: zosyn 12/28 to 01/02/20. Microbiology: Bcx 12/25/19: negative. Radiology: 01/07/20: lt midlung opacity, unchanged since 12/30/19 CT head: L MCA infarct. CTA head and neck: CTA head and neckshowed complete occlusion of L cervical ICA and 50% narrowing of right proximal cervical ICA. Mild focal narrowing of mid basilar artery, some collateral flow overdistal MCA Assessment: 59 year-old female with pmh of HTN, HLD, CAD s/p PCI, , PAD, stroke, TB, cocaine use comes to the hospital after she was found sitting on the floor unresponsive.pt found to have stroke, today is day 16in the hospital. ID is called as she is noted to have leucocytosis. Differential diagnosis includes uti, pna, sinusitis, dental infection, thrombophlebitis, acalculos cholecystitis, Pressure sore, DVT, Recommendations: Please change peripheral IV line, current one is 10 days old. Please change rogers catheter(15 days old), send new UA from the new sample Check CT of chest as she has h/o tb and noted to have infiltrates on CXR. Please send blood cultures, 2 sets. Wound care consult for dressing changes around the peg tube. IR/GI consult as she is noted to have pus discharge around the the PEG that needs to be addressed. Dressing around the wound with bactrobantill we get wound care recs. Stop rocephin, till we find the source of infection/leucocytosis. Check CMP to look at LFT, would r/o acalculous cholecystitis. Turn patient q 2 hourly to prevent bed sores. Monitor i/o to r/o diarrhea/cdiff. Thank you for the consult. Case was d/w attending Geovany Contreras PGY4, ID Associated attestation - Rajendra Garcia MD - 01/09/2020 5:19 PM CDTI have seen and examined this patient on 01/09/2020. I agree with Dr. Contreras 's thorough assessment and plan of care. I was directly involved in the decision making process. Please see the fellow's notefor additional details.Gregg Whitmore MD - 01/04/2020 2:13 PM CDTAssociated Order(s): CONSULT PALLIATIVE CARE Palliative Medicine PrimaryTeam Leland Richards MD Hospital Length of Stay: 11 Date of Consult: 01/04/2020 CC I Reason for Consult: please give recommendation or opinion on: Patient admitted with a severe stroke, s/p PEG tube placement and tracheostomy. Poor neurological prognosis. Please help with assessment of patient's retirement goals of care. Thank you. History of Present Illness: Funmilayo Mcmillan is a 59 year old female has a past medical historyof CAD (coronary artery disease) (08/2013), Depression, HTN (hypertension), PAD (peripheral artery disease) (05/10/2015), Stroke, and Tuberculosis. Admitted with subacute-acute ischemic stroke of L MCA, complete occlusion of L ICA. Patient unable to tolerate PO intake at this time she is s/p PEG tube placement. Hospice eligible?no Hospice appropriate?no Appropriate for GIP?no MDM/MPOA? yes Name: Ghislaine Bergeron Relationship:Daughter STANDARDS FOR DECISION MAKING CAPACITY Present? 1. Ability to communicate a choice no 2. Ability to understand and retain relevant information no 3. Ability to appreciate the situation and consequences of a decision for oneself no 4. Ability to manipulate information rationally no Does the patient have feeding tube? yes Does the patient have defibrillator? no Is the patient on pressors? no Is the patient on antibiotics? no Is the patient on sedation no If yes what medications? Is the patient on dialysis no Is the patient intubated? no ROS: Palliative Symptom Assessment Pain: patient is nonverbal Dyspnea patient is nonverbal Anxiety patient is nonverbal Restlessness no Insomnia patient is nonverbal Agitation no Nausea patient is nonverbal Vomiting patient is nonverbal Hiccups no Pruritus patient is nonverbal Ascites no Diarrhea no Constipation yes Secretions yes Existential distress no Past Medical History: Past Medical History: Diagnosis Date CAD (coronary artery disease) 08/2013 s/p PCI (SAEID) to proximal LAD, 50% mid focal occlusion of LCx Depression HTN (hypertension) PAD (peripheral artery disease) 05/10/2015 Stroke Tuberculosis was treated for 6 months, was in longterm. Past Surgical History:No past surgical history on file. Family History: Family History Problem Relation Age of Onset Coronary Heart Disease Maternal Aunt PHYSICAL EXAM: Vitals: 01/04/20 0903 01/04/20 1100 01/04/20 1337 01/04/20 1346 BP: (!) 150/91 110/65 BP Location: Right arm Right arm Patient Position: Supine Supine Pulse: 76 76 71 60 Resp: 20 20 18 18 Temp: 36.7 C (98 F) 36.6 C (97.8 F) TempSrc: Axillary Oral SpO2: 97% 97% 95% 100% Weight: Height: 12/30/19 0630 Weight: 48 kg (105 lb 13.1 oz) Height: Appearance: Sleepy, open eyes to verbal and tactile stimuli Cardiovascular: irregularly irregular rhythm Respiratory: Auscultation: bronchial breath sounds Abdomen: bowel sounds normoactive and Peg in place Extremities: no edema, redness or tenderness in the calves or thighs Pertinent per palliative care: % Karnofsky Performance Status 100 Normal, no complaints, no evidence of disease. 90 Able to carry on normal activity, minor signs or symptoms of disease. 80 Normal activity with effort, some signs or symptoms of disease. 70 Cares for self, unable to carry on normal activity or to do active work. 60 Requires occasional assistance, but is able to care for most of his needs. 50 Requires considerable assistance and frequent medical care. 40 Disabled, requires special care and assistance. 30 Severely disabled, hospitalization is indicated although not imminent. 20 Hospitalization necessary, very sick, active supportive treatment necessary. 10 Moribund, fatal processes progressing rapidly. 0 Grade ECOG (Eastern Cooperative Oncology Group) 0 Fully active, able to carry on all pre-disease performance without restriction 1 Restricted in physically strenuous activity but ambulatory and able to carry out work of a light or sedentary nature, e.g., light house work, office work 2 Ambulatory and capable of all selfcare but unable to carry out any work activities. Up and about more than 50% of waking hours 3 Capable of only limited selfcare, confined to bed or chair more than 50% of waking hours 4 Completely disabled. Cannot carry on any selfcare. Totally confined to bed or chair 5 MEDICATIONS: Current Facility-Administered Medications Medication Dose Route Frequency Last Rate Last Dose lisinopriL (PRINIVIL,ZESTRIL) tablet 20 mg 20 mg Enteral BID 20 mg at 01/04/20928 amLODIPine (NORVASC) tablet 10 mg 10 mg Enteral DAILY 10 mg at 01/04/20922 clopidogreL (PLAVIX) tablet 75 mg 75 mg Enteral DAILY 75 mg at 01/04/20922 risperiDONE (RISPERDAL) tablet 0.5 mg 0.5 mg Enteral BID 0.5 mg at 01/04/20 0923 acetylcysteine (MUCOMYST) 200 mg/mL (20 %) solution 200 mg 1 mL Inhalation Q6H 200 mg at 01/04/20 1340 chlorhexidine (PERIDEX) 0.12 % mouthwash 15 mL 15 mL Oral (Swish And Spit Out) Q6H 15 mL at 01/04/20 0218 ipratropium-albuteroL (DUONEB) 0.5 mg-3 mg(2.5 mg base)/3 mL nebulizer solution 3 mL 3 mL Inhalation Q6H ABX 3 mL at 01/04/20 1337 Saline Bubble Study 6 mL Injection SEE-INSTRUCTIONS 6 mL at 12/29/19 1500 Saline Bubble Study 6 mL Injection SEE-INSTRUCTIONS 6 mL at 12/29/19 1500 levETIRAcetam (KEPPRA) 100 mg/mL oral solution 750 mg 750 mg Enteral BID 750 mg at 01/04/20 0923 scopolamine transdermal (TRANSDERM-SCOP) patch 1.5 mg 1.5 mg Topical Q72H 1.5 mg at 01/03/20 1000 Polyethylene Glycol 3350 (MIRALAX) powder 17 g 17 g Enteral BID 17 g at 01/04/20 0929 sennosides-docusate sodium (SENOKOT-S) 8.6-50 mg per tablet 1 tablet 1 tablet Enteral BID 1 tablet at 01/04/20 09 hydralAZINE (APRESOLINE) injection 10 mg 10 mg Slow IV Push Q6HPRN 10 mg at 01/02/20 164 aspirin EC tablet 81 mg 81 mg Enteral DAILY 81 mg at 01/04/20 09 atorvastatin (LIPITOR) tablet 40 mg 40 mg Enteral QHS 40 mg at 01/03/202032 famotidine (PEPCID) 40 mg/5 mL (8 mg/mL) suspension 20 mg 20 mg Enteral BID 20 mg at heparin (porcine) injection 5,000 Units 5,000 Units Subcutaneous Q12H 5,000 Units at Pertinent Labs: HGB Date Value 01/01/2020 13.0 g/dL 04/12/2014 13.6 G/DL Recent Labs 01/01/20 0426 WBC 8.09 Recent Labs 01/01/20 0426 PLT 251 CREATININE Date Value 01/01/2020 0.75 mg/dL 04/12/2014 1.00 MG/DL ALBUMIN Date Value 12/24/2019 4.2 g/dL 12/02/2004 4.0 G/DL Pertinent medical records reviewed: Yes. IMPRESSION/PLAN: Funmilayo Mcmillan is a 59 year old female Admitted with subacute-acute ischemic stroke of L MCA, complete occlusion of L ICA, s/p PEG tube placement. Patient is also aphasic with right sided weakness. I spoke to patient's daughter, Ghislaine Bergeron, over the phone concerning any palliative need based on pr imary care team recommendation. After I explain to her what palliative care consist of, she states she is not interested in palliative intervention for his mother at this time. She expects her to fullyrecover, she will take care of her at home. She knows that her mother does not respond to anyone in the hospital, but she respond to her whenever she is there. She believes she will be able to help hermom with her therapy. She does not want her mother to go to any intermediate and she wants her to befull code. Recommendation - follow up with career information specialist for discharge planning and for any home health needs - Code status: full code Case D/W Dr. Adan Whitmore MD PGY-4 Geriatric Medicine Fellow Pager #: [phone] Associated attestation - Tamiko Arellano MD - 01/06/2020 3:29 PM CDTI was present at the time of this encounter, and actively participated in the decision-making process. I discussed the patient with Dr. Gregg Owen. I agree with the resident's note as written . Please see resident's note for additional details. Tamiko Arellano Division of Geriatric and Palliative Medicine [place], [place] [address] Gisela Morris DO - 12/27/2019 3:14 PM CDTAssociated Order(s): CONSULT CARDIOLOGY Cardiology Consult Note Date of Service: 12/27/2019 15:14 Service: Neurology Chief Complaint: AMS, right sided weakness, and aphasia Reason for admission: AMS, right sided weakness, and aphasia Reason for consult: TTE showed EF 40-45% with wall motion abnormalities. UDS positive for cocaine. History of Present Illness: Funmilayo Mcmillan is a 59 year old female with PMHx of bipolar disorder, depression, HTN, CAD s/pPCI to LAD (2013), PAD, TB, and drug use (crack) admitted to neurology with altered mental status, right sided weakness, and aphasia. Patient was found sitting with arms crossed and not responding per f amily. EMS was called. In the ED, patient was found to have right sided weakness, aphasia, and altered mental status. UDS was positive for cocaine and THC. CTH and MRI brain showed left acute-subacute MCA infarct without evidence of hemorrhagic transformation. Cardiology was consulted due to TTE showing reduced EF of 40-45% with wall motion abnormalities. The basal to mid inferoseptal and anteroseptal segments were found to be severely hypokinetic. During visit today, patient appears to be asleep with eyes closed. She would respond to verbal and tactile stimuli with movement of her left arm and left leg, but does answer any questions verbally or follows any command. ROS: Unable to complete as patient does not respond or answer to any questions. PMHx: has a past medical history of CAD (coronary artery disease) (08/2013), Depression, HTN (hypertension), PAD (peripheral artery disease) (05/10/2015), Stroke, and Tuberculosis. PSHx: has no past surgical history on file. SocHx: reports that she has quit smoking. Her smoking use included cigarettes. She started smoking about 46 years ago. She smoked 1.00 pack per day. She quit smokeless tobacco use about 20 years ago.Her smokeless tobacco use included snuff. She reports current alcohol use. She reports current drug use. Drug: "Crack" cocaine. FamilyHx: family history includes Coronary Heart Disease in her maternal aunt. Allergies: No Known Allergies Prior to Admission medications Medication Sig Start Date End Date Taking? Authorizing Provider meloxicam 7.5 mg tablet Take 1 tablet by mouth daily. Ok to take 15mg daily (2 tablets) if 1 tablet does not help the pain. Take with food. 12/16/19 Bev Chauhan MD metoprolol succinate XL 50 mg 24 hr tablet Take 1 tablet by mouth daily. 12/13/19 Daya Love MD simvastatin 40 mg tablet Take 1 tablet by mouth at bedtime. 12/13/19 Daya Love MD aspirin 81 mg EC tablet Take 1 tablet by mouth daily. 07/08/17 Daya Love MD citalopram (CELEXA) 40 mg tablet Take 1 Tab by mouth daily. 08/23/13 Nabil Quintero MD risperiDONE (RISPERDAL) 2 mg tablet Take 1 Tab by mouth every morning. 08/23/13 Nabil Quintero MD Current Facility-Administered Medications: Polyethylene Glycol 3350 (MIRALAX) powder 17 g, 17 g, Enteral, BID, Leland Richards MD sennosides-docusate sodium (SENOKOT-S) 8.6-50 mg per tablet 1 tablet, 1 tablet, Enteral, BID, Leland Richards MD, 1 tablet at 12/27/19 1448 amLODIPine (NORVASC) tablet 5 mg, 5 mg, Enteral, DAILY, Abhishek Berumen MBBS, 5 mg at 12/27/19 0747 clopidogreL (PLAVIX) tablet 75 mg, 75 mg, Enteral, DAILY, Abhishek Berumen, MBBS, 75 mg at 12/27/19 0746 hydralAZINE (APRESOLINE) injection 10 mg, 10 mg, Slow IV Push, Q6HPRN, NeftaliempAbhishek clark, MBBS, 10 mg at 12/27/19 0521 lisinopriL (PRINIVIL,ZESTRIL) tablet 10 mg, 10 mg, Enteral, BID, AnirudhottempAbhishek clark, MBBS, 10 mg at 12/27/19 0747 risperiDONE (RISPERDAL) tablet 2 mg, 2 mg, Enteral, BID, AnirudhottAbhishek hernandez MBBS, 2 mg at 12/27/19 0747 levETIRAcetam (KEPPRA) 750 mg in NaCl 0.9% (NS) 100 mL IV infusion, 750 mg, IV Infusion, Q12H, Leland Richards MD, 750 mg at 12/27/19 0743 niCARdipine (CARDENE I.V.) 40 mg in 200 mL 0.83% Sodium Chloride (RTU) infusion, 2.5-15 mg/hr, IV Infusion, TITRATE, Leland Richards MD, Stopped at 12/27/19 0528 aspirin EC tablet 81 mg, 81 mg, Enteral, DAILY, Pedro Pablo Newsome, MBBS, 81 mg at 12/27/19 0747 atorvastatin (LIPITOR) tablet 40 mg, 40 mg, Enteral, QHS, Pedro Pablo Newsome MBBS, 40 mg at 12/26/19 2104 famotidine (PEPCID) 40 mg/5 mL (8 mg/mL) suspension 20 mg, 20 mg, Enteral, BID, Pedro Pablo Newsome, MBBS, 20 mg at 12/27/19 0747 heparin (porcine) injection 5,000 Units, 5,000 Units, Subcutaneous, Q12H, Pedro Pablo Newsome MBBS, 5,000 Units at 12/27/19 0746 Physical Examination: Temp: [36.5 C (97.7 F)-37.1 C (98.8 F)] Heart Rate (monitor): [65-117] Pulse: [66-123] Resp: [17-31] BP: (103-185)/(68-121) MAP (mmHg): [81-135] Intake/Output Summary (Last 24 hours) at 12/27/2019 1514 Last data filed at 12/27/2019 1400 Gross per 24 hour Intake 160 ml Output 350 ml Net -190 ml General: appears asleep with eyes closed, in bed with no apparent distress Head: Atraumatic; normocephalic Lungs: bilateral rhonchi noted Cardio: Regular rate and rhythm; soft heart sounds GI: abdomen soft; non-tender; non-distended; active bowel sounds Extremities: No bilateral lower extremity edema; extremities are warm to touch Skin: warm and dry Neuro: Does not follow command. Nonverbal and does not answer verbal questions. Would not open eyes,but would move left arm and left leg spontaneously. No movement of right arm noted. Slight dorsiflexion/plantarflexion movement noted to right foot. Labs/Imaging/Pathology - Independently reviewed Recent Labs 12/24/19 1241 12/25/19 0306 12/26/19 0405 12/27/19 0329 WBC 12.30* 9.78 11.79* 8.97 HGB 16.7* 15.6* 15.4* 15.8* HCT 49.3* 47.5* 45.2 46.0* MCV 93.9 94.4 94.2 92.4 PLT 229 241 205 193 Recent Labs 12/24/19 1241 12/25/19 0306 12/26/19 0405 12/27/19 0329 NA 139 141 137 137 K 3.5 4.6 3.7 3.8 CA 9.9 8.8 8.4* 9.2 CL 103 109* 108 106 BUN 16 16 10 18 CREAT 0.81 0.76 0.57 0.69 GLU 127* 96 107 113* TCO2 27 23 21* 23 MG 1.9 -- -- 1.8 Recent Labs 12/24/19 1241 ALB 4.2 TPRO 7.8 BILIT 0.7 BILIUNCON 0.8 BILICONJ 0.0 ALT 20 AST 32 ALKPHOS 66 Recent Labs 12/24/19 1241 PTINR 1.0 PTPAT 13.0 APTTPAT 23 Troponin 0.017->0.013 MR brain wo contrast 12/26/19 IMPRESSION Motion degraded exam. Large subacute infarct in the left MCA territory with no gross evidence of hemorrhage transformation. CT head wo contrast 12/24/19 IMPRESSION Acute-subacute infarct in the left MCA territory with an ASPECTS score of around 3. No evidence of hemorrhagic transformation CT angiogram neck and head 12/24/19 IMPRESSION - Complete occlusion of the left cervical ICA from just distal to the bulb through the supraclinoid segment at the level of the ophthalmic artery. Short segment opacification of the left M1 segment is noted before an abrupt cut off within the mid M1 segment. There is some vascularity noted within the distal MCA candelabra likely related to collateral flow over the convexity. - Short segment moderate narrowing of the right proximal cervical ICA (up to 50%) - Mild to moderate focal narrowing of the mid basilar artery EKG 12/26/19: sinus rhythm with rate 82, left bundle branch block, left axis deviation, and elevatedJ point in V2-V3 (present in previous EKG in Nov 2019). Echocardiography 12/26/19: Interpretation Summary A two-dimensional transthoracic echocardiogram with M-mode and Doppler was performed. Limited views were obtained. The study was technically difficult. Compared to prior study, changes are noted. Left ventricular systolic function is mildly reduced. Ejection Fraction = 40-45%. Regional wall motion abnormalities as above. The basal to mid inferoseptal and anteroseptal segments are severely hypokinetic. Mild concentric LVH. Echocardiography 07/23/15: Interpretation Summary A complete two-dimensional transthoracic echocardiogram was performed (2D, M- mode, Doppler and colorflow Doppler). The study was diagnostic quality. Compared to prior study, changes are noted. Normal LV size with mild LVH. Preserved LV systolic function. EF 55-60% Normal RV size and function. Mild LA enlargement. No hemodynamically significant valve diease. Cardiac Cath 08/22/2013: FINDINGS: LEFT CORONARY ARTERY: DOMINANCE: Left Dominant Left Main Artery: short mild LI LAD: large vessel, proximal diffuse 90% at D1 bifurcation Circumflex: proximal mild LI, mid Lcx focal 50% eccentric (FFR of the mid LCx not significant-baseline 1.0 and peak with 140 mcg/kg/min infusion 0.85), distal LCx mild RIGHT CORONARY ARTERY: RCA: nondominant vessel, mild LI DIAGNOSTIC/INTERVENTION IMPRESSION: -Left dominant coronary circulation with moderate LCx and severe pLAD disease. -FFR of the Lcx not significant. Medical Rx recommended. -PCI of pLAD done with drug eluting stent. PLANS: -ASA 81 mg daily for life. 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 -Aggressive medical rx for CAD. -[facility] cardiology clinic f/u. -d/w pt in detail, all questions answered. Assessment/Plan: Funmilayo Mcmillan is a 59 year old female admitted with: Reduced EF on echocardiogram Left MCA stroke Acute encephalopathy and aphasia likely 2/2 left MCA stroke CAD s/p LAD stent in 2013 Cocaine and THC use HTN Hx of peripheral arterial disease Patient presented with AMS, right sided weakness, and aphasia. CT and MRI showed left acute-subacuteleft MCA infarct. Cardiology was consulted due to new TTE finding of reduced EF (40-45%) and hypokinesis of the inferoseptal and anteroseptal segments. Troponin 0.017->0.013. EKG with left bundle branch block and without significant change from previous EKG. Upon review of TTE with faculty, EF was deemed partly underestimated. Will recommend to obtain limited echocardiogram with contrast for re-evaluation to assess the need of further ischemic workup. Recommendations: - Obtain limited echocardiogram with contrast (order as TTE, in the comment section mention "focusedwith contrast"). - Continue aspirin, plavix, atorvastatin, lisinopril, and amlodipine. - Keep K>4 and Mg >2 Thank you for your consult. Seen and examined with Dr. Christopher Morris, Internal Medicine PGY-2 [place] Team Pager # [phone] Associated attestation - John White MD - 12/27/2019 7:54 PM CDTI saw and examined the patient today and agree with the resident's consult note as written by Dr. Morris. I actively participated in the decision-making process. Please see the resident's consult note for additional details. Cardiology has been consulted for abnormal echocardiographic findings. I personally reviewed her echocardiogram and her reported LVEF seems to be underestimated. For better LVEF evaluation, would recommend limited echo with contrast. In the meantime, would recommend to continue current medications. John White MD, [facility] Web Specialist Division of Cardiology [facility].Adrienne Ortiz, - 12/26/2019 12:02 PM CDT Associated Order(s): CONSULT CLINICAL OFFICE TECHNICIAN-ADULTCare Management Social Functional Assessment Patient Name: Funmilayo Mcmillan Age: [age] year old Sex: female Patient's Previous Admission Date at 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 MPOA: No Living Arrangement: Home Address of living arrangement : [address] [place] [address] [place] [address] Persons living in home: Self;Other Names & numbers of persons living in home: roommate, Mirna Calloway [phone] Barriers to returning home: Declining function Baseline functional status- ambulation: Independent Functional status-baseline personal care: Independent Baseline functional status- driving: Dependent Baseline functional status- grocery shopping: Independent Functional status-baseline housekeeping: Independent Functional status-baseline meal prep: Independent Current functional status same as prior: No Current functional status- ambulation: Dependent Current functional status- personal care: Dependent Current functional status- driving: Dependent Current functional status- grocery shopping: Dependent Current functional status-house keeping: Dependent Current functional status- meal preparation: Dependent Do you have a PCP?: Yes Name of PCP: Bev Chauhan Home Health Care Agency: No Provider Services: No DME Company: No Equipment: None Hemodialysis: No Community resources utilized: SSA/SSI/Medicaid;Food [place] Funding Resources: Medicaid HMO Prescription coverage plan: Medicaid unlimited slots Pharmacy where meds are filled: (local [facility]) Anticipated services prior to disharge: Continue Medical Eval;PT/OT/ST Expected mode of discharge transportation: Same as support system;Wheelchair van;Ambulance Additional info required for discharge planning: Pending medical evaluation;Pending P/T O/T recommendation Recommended discharge plan: Home;Home with new Home Health Any issues or concerns with obtaining/affording your medications at home: no. Are you or your support system able to tack picker medications at discharge: unknown at this time SFA Complete: Social Functional Assessment complete: Yes Alcohol Use Screening (AUDIT-C) How often do you have a drink containing alcohol?: 4 or more times a week SCORE: 4 How many drinks containing alcohol do you have on a typical day when you are drinking?: (unknown perdaughter) Did patient elect to have resources provided: (not addressed at this time. Per daughter-pt uses tobacco, alcohol, and illicit drug use (crack cocaine and THC)) Role of Care Management explained. Tatiana Ortiz, FERNANDO-IPR [phone] [address] [address] Care Mgmt Dept Elin Wolf - 12/26/2019 10:11 AM CDTAssociated Order(s): CONSULT FOOD AND NUTRITION Medical Nutrition Therapy - Consult Note: Reason For Consultation: Physician consult: Stroke Subjective: Jevity 1.2 running @ 20 mL/hr at time of visit - tolerating well per RN. No BM since admit - recommend bowel regimen. Weighed with bed to confirm weight in EMR. Noted muscle wasting to temples and quadriceps and fat wasting to orbital region. Patient appears to be edentulous. See below for tube feed re commendations. Noted elevated cholesterol @ 211 - lipid panel otherwise WNL. Malnutrition Assessment: Nutritional Diagnosis: Moderate protein calorie malnutrition SGA Rating: Mild / Moderate Patient Active Problem List Diagnosis PAD (peripheral artery disease) Chest pain Coronary artery disease without angina pectoris HTN (hypertension) Acute ischemic left MCA stroke Cocaine abuse At risk for seizures PMH/PSH: Past Medical History: Diagnosis Date CAD (coronary artery disease) 08/2013 s/p PCI (SAEID) to proximal LAD, 50% mid focal occlusion of LCx Depression HTN (hypertension) PAD (peripheral artery disease) 05/10/2015 Stroke Tuberculosis was treated for 6 months, was in longterm. No past surgical history on file. GI and Nutrition Related Findings: Symptoms: Constipation Difficulty: Chewing and Swallowing GI tract alteration: N/A Alternative means of nutrition: NGT General: Wounds (eg. Vascular, Diabetic, Burn, Pressure) : Arterial ulcer foot anterior; left Arterial ulcer foot anterior; right Abrasion elbow; right Medications: Current Facility-Administered Medications: clopidogreL (PLAVIX) tablet 75 mg, 75 mg, Enteral, DAILY, Abhishek Berumen MBBS, 75 mg at 12/26/19 0808 lisinopriL (PRINIVIL,ZESTRIL) tablet 5 mg, 5 mg, Enteral, DAILY, Abhishek Berumen MBBS, 5 mg at 12/26/19 0808 LORazepam (ATIVAN) injection 2 mg, 2 mg, Slow IV Push, ONCE, Tad Zepeda MD levETIRAcetam (KEPPRA) 750 mg in NaCl 0.9% (NS) 100 mL IV infusion, 750 mg, IV Infusion, Q12H, Leland Richards MD, 750 mg at 12/26/19 0808 niCARdipine (CARDENE I.V.) 40 mg in 200 mL 0.83% Sodium Chloride (RTU) infusion, 2.5-15 mg/hr, IV Infusion, TITRATE, Leland Richards MD, Last Rate: 25 mL/hr at 12/26/19 0716, 5 mg/hr at 12/26/19 0716 aspirin EC tablet 81 mg, 81 mg, Enteral, DAILY, Pedro Pablo Newsome MBBS, 81 mg at 12/26/19 0808 atorvastatin (LIPITOR) tablet 40 mg, 40 mg, Enteral, QHS, Pedro Pablo Newsome MBBS, 40 mg at 12/25/19 1938 famotidine (PEPCID) 40 mg/5 mL (8 mg/mL) suspension 20 mg, 20 mg, Enteral, BID, Pedro Pablo Newsome MBBS, 20 mg at 12/26/19 0808 heparin (porcine) injection 5,000 Units, 5,000 Units, Subcutaneous, Q12H, Pedro Pablo Newsome MBBS, 5,000 Units at 12/26/19 0808 risperiDONE (RISPERDAL) tablet 2 mg, 2 mg, Enteral, QAM, Harazeen, Ahmed, MBBS, 2 mg at 12/26/19 0808 Lab and Medical Test Results: 12/25/2019 03:06 12/26/2019 04:05 WBC x10^3 9.78 11.79 (H) RBC x10^6 5.03 4.80 HGB 15.6 (H) 15.4 (H) HCT 47.5 (H) 45.2 MCV 94.4 94.2 MCH 31.0 32.1 MCHC 32.8 34.1 12/24/2019 12:41 12/25/2019 03:06 12/26/2019 04:05 NA 139 141 137 K 3.5 4.6 3.7 CL 103 109 (H) 108 CO2 TOTAL 27 23 21 (L) AGAP 9 9 8 BUN 16 16 10 GLUCOSE 127 (H) 96 107 CREATININE 0.81 0.76 0.57 eGFR CALCULATION (non ) 72.6 78.2 108.9 TOTAL BILI 0.7 BILI UNCON 0.8 BILI CONJ 0.0 CHOL 211 (H) TRIG 109 HDL CHOL 80 HDLC RATIO 2.6 LDL CHOL 109 VLDL 22 CALCIUM 9.9 8.8 8.4 (L) MAGNESIUM 1.9 T PROTEIN 7.8 ALBUMIN 4.2 TROPONIN I 0.017 0.013 12/24/2019 12:41 HGB A1C 5.2 Intake/Output Summary (Last 24 hours) at 12/26/2019 1011 Last data filed at 12/26/2019 0900 Gross per 24 hour Intake 1234 ml Output 1520 ml Net -286 ml Nutrition Assessment: Age: [age] year old Sex: female Ht: 160 cm / 5'3" Ht Readings from Last 3 Encounters: 12/24/19 1.6 m (5' 3") 12/13/19 1.676 m (5' 6") 02/01/19 1.676 m (5' 6") Current Wt: 48 kg/ 105 lb BMI: Body mass index is 18.75 kg/m. (Normal) IBW for Ht: 52.3 kg +/- 5.23 kg %IBW: 92% Weight History: Wt Readings from Last 20 Encounters: 12/24/19 48 kg (105 lb 13.1 oz) 12/16/19 51.3 kg (113 lb 3.2 oz) 12/13/19 51.4 kg (113 lb 6.4 oz) 02/01/19 53.3 kg (117 lb 8 oz) 01/25/19 54.3 kg (119 lb 12.8 oz) 11/14/18 51.3 kg (113 lb) 10/01/18 51.6 kg (113 lb 12.8 oz) 07/13/18 52.4 kg (115 lb 8 oz) 07/01/18 52.6 kg (116 lb) 01/04/18 53.2 kg (117 lb 4.8 oz) 12/31/17 53.8 kg (118 lb 11.2 oz) 07/08/17 55.1 kg (121 lb 6.4 oz) 06/30/17 55 kg (121 lb 3.2 oz) 12/30/16 60.3 kg (132 lb 14.4 oz) 05/28/16 64.9 kg (143 lb) 05/26/16 65.8 kg (145 lb) 05/22/16 65.8 kg (145 lb) 07/22/15 63.5 kg (140 lb) 05/09/15 64.9 kg (143 lb) 04/04/15 67.7 kg (149 lb 3.2 oz) -14 lbs x 11 months (11.8%) - not significant -8 lbs x 1 week (7.1%) - severe Inflammatory Markers: Elevated WBC Current Dietary Order(s): Jevity 1.2 Itz (1.2 kcal/mL, protein 18.5% of kcal) Food allergies/intolerance/cultural preferences: NKFA Estimated Daily Nutritional Needs: Calories: 8717-4206 kcal/day = 30-35 kcal/kg current wt Protein: 38-58 g/day = 0.8-1.2 g/kg current wt Fluid: 3383-3050 mL/day or per MD; adjust per acute needs Nutrition Diagnosis: Moderate protein calorie malnutrition related to suspected inadequate oral intake d/t lifestyle choices as evidenced by moderate fat loss to orbital region, moderate muscle loss to quadriceps and temporal regions, and 7.1% weight loss x 1 week. Recommendations: Initiate bowel regimen - no BM sice admit Recommend enteral nutrition with Jevity 1.2 at goal of 55 mL/hr ? EN will provide 1584 kcal, 73 g protein, 1065 ml free water ? Initiate at 10-20mL/hr and advance rate 10-20mL/hr every 8-12 hours If receiving IVF, recommend a minimum of 30 mL water flush Q4H to contribute to free water needs and tube patency maintenance. o If no IVF, recommend 85 mL water flush Q4H to help meet fluid needs o (Tf+flushes will provide 1575 mL water) Once patient establishes tolerance to continuous feeds, consider changing to bolus feeds. 5.5 cartons of Jevity 1.2 per day (1320 mL) Ex: 2 cans @ 0800, 1 cans @ 1200, 1 cans @ 1700, 1.5 cans @ 2000 For best tolerance, formula at room temperature. Suggest bolusing slowly over >15-30 minutes. Edroy or longer bolus time may be needed per pt's individual tolerance/preference Fluid provided by formula alone at goal above is not sufficient to maintain hydration. Suggest 65mL free water before and after each bolus feed (assuming 4 bolus feeds per day) or additional water per MD discretion. Goals: 1. Meet >75% of nutrition needs with EN. Monitoring and Evaluation: A registered dietitian will follow up by 12/28. Please call with any questions or concerns, thank you. D/C Planning: Undetermined at this time. Evelyn Wolf MS, RD, LD Clinical Dietitian Office: [id number] Mickie Mae SLP - 12/26/2019 9:31 AM CDTAssociated Order(s): CONSULT SPEECH Speech-Language Pathology Clinical Swallow Evaluation 12/26/2019 Funmilayo Mcmillan : 1960 Age: [age] year old Sex: female Referring Physician: Mercedez Date of Referral: 12/24/19 Reason for Referral: stroke activation (dysphagia, speech-language/cognitive-linguistic) Date of Admission/Onset: 12/24/19 Time IN/OUT: [id number] SUBJECTIVE: Patient awake/alert, however confused and with difficulty following commands. OBJECTIVE: is being seen for a clinical swallow evaluation. Funmilayo Mcmillan is a 59 year old female admitted for AMS, aphasia and R sided weakness with PMH significant for HTN, CAD s/p PCI, drug abuse (hx of cocaine abuse), bipolar, PAD. NIHSS 21. Pertinent Imaging: Xr Chest 1 Vw Result Date: 12/24/2019 Chronic emphysematous changes. No pleural effusion, pneumothorax or consolidative process. Preliminary Report Dictated by Resident: Dorene Yuen I, Isaiah Valentine MD., have reviewed this study and agree with the above report. Ct Angiogram Head Result Date: 12/24/2019 Complete occlusion of the left cervical ICA from just distal to the bulb through the supraclinoid segment at the level of the ophthalmic artery. Short segment opacification of the left M1 segment is noted before an abrupt cut off within the mid M1 segment. There is some vascularity noted within the distal MCA candelabra likely related to collateral flow over the convexity. Short segment moderate narrowing of the right proximal cervical ICA (up to 50%) Mild to moderate focal narrowing of the mid basilar artery Ct Head Wo Contrast Result Date: 12/24/2019 Acute-subacute infarct in the left MCA territory with an ASPECTS score of around 3. No evidence of hemorrhagic transformation These findings were discussed with Dr. Mclean at the time of report dictation Ct Angiogram Neck Result Date: 12/24/2019 Complete occlusion of the left cervical ICA from just distal to the bulb through the supraclinoid segment at the level of the ophthalmic artery. Short segment opacification of the left M1 segment is noted before an abrupt cut off within the mid M1 segment. There is some vascularity noted within the distal MCA candelabra likely related to collateral flow over the convexity. Short segment moderate narrowing of the right proximal cervical ICA (up to 50%) Mild to moderate focal narrowing of the mid basilar artery Xr Kub Result Date: 12/26/2019 FINDINGS/IMPRESSION: The tip of the Dobbhoff tube lies within the stomach. Preliminary Report Dictated by Resident: Navi Collazo I reviewed this study and agree. Nguyễn Alcocer MD., have reviewed this study and agree with the above report. Previous WEB CONTENT EXECUTIVE Services/Swallow History: None documented/reported at this facility. Patient failed initial RN dysphagia screen. Past Medical History: Diagnosis Date CAD (coronary artery disease) 08/2013 s/p PCI (SAEID) to proximal LAD, 50% mid focal occlusion of LCx Depression HTN (hypertension) PAD (peripheral artery disease) 05/10/2015 Stroke Tuberculosis was treated for 6 months, was in longterm. No past surgical history on file. General Behavior: Alert, Impulsive and Decreased ability to follow directions Hearing: Within Functional Limits for speech Oral Mechanism: Structure/Function: difficult assessing d/t reduced ability to follow commands; right facial and labial droop; dry oral cavity; ?dentate; poor oral hygiene Respiratory Status: room air Orientation/Cognition: - Patient oriented to: NA - Response type: N/A - If verbal, describe speech: N/A - Follows 1-step commands: No CLINICAL SWALLOW EVALUATION Current Diet Texture/Means of Nutrition: NPO; DHT in place Swallows on command: No Handles Secretions: No Volitional Cough: Not tested Spontaneous Cough: Yes PO trials were administered by WEB CONTENT EXECUTIVE. Patient was provided with multiple bites/sips of ice chips consistencies with the following observations: Oral Stage: Anterior leakage of bolus observed with ice chips Pocketing of bolus (left or right) not observed Subjectively Prolonged oral phase not observed; patient unable to accept bolus into oral cavity Oral residue (left/right/diffuse) not observed Pharyngeal Stage: Subjectively reduced laryngeal elevation NA Coughing or throat clearing observed intermittently without po intake/subjective swallowing of secretions Change in voice quality NA; patient did not vocalize Multiple swallows subjectively not observed Respiratory sufficiency and coordination: increased work of breathing without po intake Report of globus sensation: No 3 oz water challenge: NA Patient/Family/Staff education: Provided verbally. Discussed importance of frequent, thorough oral hygiene care. RN and referring provider notified of findings and recommendations. Patient/Family goal: safe po intake ASSESSMENT/IMPRESSIONS: Funmilayo Mcmillan presents with suspected oropharyngeal dysphagia s/p CVA. Difficult to fully evaluate po intake d/t inability to follow commands (aphasia). Patient with overt anterior spillage of ice chips provided with inability to accept utensil for bolus administration. Patient is at high risk f or aspiration/developing aspiration-related infection d/t observations made this date. Suspect patient to benefit from continued use of short-term FACUNDO and frequent, thorough oral hygiene care. She would benefit from continued WEB CONTENT EXECUTIVE services while in-house for dysphagia and speech-language deficits. Prognosis is poor for safe po intake at this time d/t above findings. RECOMMENDATIONS/GOALS: 1. Recommend patient remain NPO and continue with alternative means of nutrition/hydration (DHT in place). 2. Recommend elevated head of bed and frequent, thorough oral hygiene care due to high risk for aspiration. 3. Recommend WEB CONTENT EXECUTIVE therapy 2-5x/wk for 15-45 min/session while in-house to address the following goals: Swallowing: - Patient will participate in on-going swallow re-evaluation at the bedside to determine readiness/safety for PO vs need/timing for objective swallow assessment: Speech-Language: - Patient will participate in speech-language evaluation as clinically indicated. Mickie Nuno MA, [facility]-WEB CONTENT EXECUTIVE Speech-Language Pathologist Office: [phone] Pager: [phone] / [phone] Eulalio Carias, PT - 12/25/2019 10:47 AM CDTAssociated Order(s): CONSULT ADULT PHYSICAL THERAPY Patient agreeable to working with physical therapy. Patient met Semi reclined in bed. PHYSICAL THERAPY EVALUATION Consult received, chart reviewed and evaluation complete this date. Patient is referred to PT for evaluation and treatment. Patient is a 59 year old female who presents to hospital for STROKE. Discharge Recommendations: Therapy Needs and Potential: Patient would benefit from continued physical therapy services to address: decline in bed mobility decline in transfers decline in gait and/or balance decreased strength Patient exhibits limited ability to follow commands. Challenges to Home Transition: increased risk of falls decreased safety awareness Patient will need significant physical assistance for bed mobility and transfers Equipment recommendations: TBD depending on progress during hospital stay Current Functional Status and/or Treatment:Therapeutic exercise Bed Mobility: Reclined to sitting: Dependent. Repositioning: Dependent Transfers: Unable at this time due to patient is somnolent. Ambulation: NT. Therapeutic exercise: PROM BLE After session, patient Semi reclined in bed. Call button provided. Nurse notified. PLAN OF CARE: At least 2 times per week, once or twice a day (while in hospital) per patient's tolerance and medical needs. See below for complete details. Admit Date: 12/24/2019 Hospital Diagnosis:STROKE PT Diagnosis: Impaired mobility Weight Bearing Precaution: WBAT General Precautions: PPE used:Gloves and Surgical mask, General, Fall,IV ., oxygen: Nasal canula, Telemetry Bracing/Cast present or required:N/A PMH: Past Medical History: Diagnosis Date CAD (coronary artery disease) 08/2013 s/p PCI (SAEID) to proximal LAD, 50% mid focal occlusion of LCx Depression HTN (hypertension) PAD (peripheral artery disease) 05/10/2015 Stroke Tuberculosis was treated for 6 months, was in longterm. PSH: No past surgical history on file. Prior Living Situation: Unable to obtain information on patient DME: Unable to obtain information Prior level of Mobility: Presumed able to perform functional mobility Independently Subjective: non verbal Patient/Family Goals: non-verbal Patient/Family verbalizes understanding of condition: No COMMUNICATION Primary Language: Libyan Able to Verbalize needs: No Vision:Unable to obtain information Hearing: Unable to obtain ORIENTATION/COGNITION: Oriented to: person and opens eyes to name Awake: No Alert: No Follows Commands: No 1-Step No Multi-Step No NEUROLOGICAL Light Touch: Unable to accurately test bilateral LE Heel to coker: NT Tone: flaccid BLE BALANCE: Sitting: Static: NT Dynamic: NT Standing: Static: NT Dynamic: NT RANGE OF MOTION: within functional limits bilateral LE, on PROM STRENGTH: Unable to accurately assess strength, however patient moves both ankles involuntarily ENDURANCE: NT, . SKIN INTEGRITY: Patient at risk for skin breakdown due to lack of mobility PROBLEM LIST: Decline in bed mobility, Decline in gait, Decline in transfers, Decreased strength, Decreased balance and Safety awareness deficits ASSESSMENT: Patient is a 59 year old female seen secondary to the above listed diagnosis. Patient would benefit from continued PT to address the above listed deficits to maximize independence and safety with functional mobility. Rehabilitation Potential: guarded Goals: The following goals are to maximize independence and safety with functional mobility to eventually return to prior living situation and prior functional status. Upon discharge, patient and/or family will demonstrate the followin. Rolling: SBA/Setup Supine-sit: Minimal assist Scooting to edge of bed: Minimal assist 2. sit-stand: Minimal assist Stand pivot transfer: Minimal assist Lateral scooting transfer: Minimal assist Squat pivot transfer: Minimal assist 3. To initiate ambulation if appropriate with the goal of CGA with ambulation, Feet: 50 using least assistive device. 4. Demonstrate or verbalize understanding of home exercise program in order to continue with their rehab on their own. Treatment Plan: Gait training, Therapeutic exercise, Transfer training, Balance training, Bed mobility training, Safety education, patient/caregiver education, Neuromuscular Re-Education and FunctionalMotor Training PATIENT EDUCATION: Patient provided with preferred teaching of verbal information on role of PT, plan of care. Barriers to learning include physical limitations and cognitive limitations. Total Time Tx Codes in Minutes: 5 min Total Treatment Time in Minutes: 20 min Eulalio Barrios PT, DPT, C/NDT Pager # [phone] A physical therapy evaluation of high complexity was completed based on meeting at the criteria below: A history of present problem with at least 3 or more personal factors (includes environmental factors) and/or comorbidities that impact the plan of care An examination of body systems using standardized tests and measures addressing a total of at least 4 or more elements from any of the following: body structures and functions, activity limitations,and/or participation limitations A clinical presentation with unstable and unpredictable characteristics Dannie Segal OT - 12/25/2019 10:44 AM CDTAssociated Order(s): CONSULT ADULT OCCUPATIONAL THERAPY OT GENERAL EVALUATION Consult received via [facility], EMR reviewed and evaluation completed 12/25/19. Patient referred to occupational therapy for evaluation and treatment per stroke protocol. Patient agreeable to participate in occupational therapy. Discharge Recommendations: Therapy Needs and Potential:- Patient would benefit from continued skilled occupational therapy services to address: Decline in basic activities of daily living, Decline in instrumental activities of daily living, Decline in cognition, Decreased strength, Decreased range of motion, Decreased endurance, Decreased coordination and Caregiver training - Patient exhibits limited activity tolerance. - Patient able to follow commands: 1-step No, Multi-step No, Inconsistencies No Challenges to Home Transition:- Requires physical assistance for BADLS - Requires physical assistance for IADLS - Requires supervision or verbal cues for BADLS - Requires supervision or verbal cues for IADLS - No caregiver support - Decreased safety awareness/judgement - Increased risk of falls Equipment Recommendations:TBD when patient able to participate more in OOB activity, however if patient were to discharge home today would recommend Hospital bed, Low air loss mattress and Mechanical lift PLAN OF CARE: At least 2x/week Precautions: Weight bearing status: NA General: PPE Utilized: Gloves and Surgical mask, Fall, Feeding tube and Restraints Bracing: N/A Current Occupational Performance and/or Treatment: Feeding: Dependent Grooming: Dependent UB Bathing: Dependent LB Bathing: Dependent UB Dressing: Dependent LB Dressing: Dependent Toileting Hygiene: Dependent Functional Mobility: Patient repositioned in bed dependent using pillows and prevalon boots obtainedand donned for positioning and to prevent skin breakdown, nurse notified. Patient/caregiver educated on: Positioning, PROM, Role of OT and Safety awareness Pt with poor alertness and poor response to verbal/pain stimuli, however does open eyes with stimulation from cold wash cloth but unable to keep open for long. Patient left right semisidelying in bed with call gonzalez in reach. Vital signs stable , Restraints reapplied and secured at end of session, Prevalon boots donned, Heels floating and RAJI LE, RAJI UE elevated and positioned using pillows. Please, see full evaluation below for more detail. OT EVALUATION: 59 year old female Admit date: 12/24/2019 Date of onset: 12/24/2019 Admit Diagnosis: STROKE OT Diagnosis: Impaired BADL independence, Impaired IADL independence, Weakness, Activity intolerance, Decreased endurance, Impaired self-care mobility, Decreased UE Function RAJI, Reduced joint ROM and Impaired cognition PMH: Past Medical History: Diagnosis Date CAD (coronary artery disease) 08/2013 s/p PCI (SAEID) to proximal LAD, 50% mid focal occlusion of LCx Depression HTN (hypertension) PAD (peripheral artery disease) 05/10/2015 Stroke Tuberculosis was treated for 6 months, was in longterm. PSH: No past surgical history on file. PAIN: Before assessment: does not demo signs of pain After assessment: does not demo signs of pain OCCUPATIONAL ROLES/HOME ENVIRONMENT: Pt unable to provide information on PLOF and home environment, no family at bedside, and limited information in chart at this time. Home environment: Unable to obtain information at this time. Bathroom access: Unknown Bathroom setup: Unknown Occupation(s): Unknown Function prior to admission: Per chart review, appears patient previously independent. Equipment prior to admission: Unknown PERFORMANCE SKILLS/FACTORS: UE Muscle Tone: R UE hypotonicity UE ROM: bilateral PROM WFL, noted some AROM in LUE again gravity however no AROM noted in RUE UE Strength: L UE appears to have at least 3-/5, R UE appears 0/5 Hand dominance: unknown Dexterity/Coordination: bilateral Impaired Endurance - Sitting: NT Standing: NT Sitting Balance - Static: NT Dynamic: NT Standing: Balance - Static NT Dynamic: NT Dizziness: No Skin Integrity: facial laceration, foot wounds, feeding tube Sensation: patient responds to pain on L UE but not L UE Oral Motor: NT Communication: Able to verbalize needs No Other: Global aphasia Vision: Unable to adequately assess at this time due to limited eye opening Hearing: good; no issues reported COGNITION: Orientation: NT, patient does not communicate at this time Follows Commands: 1-step No Multi-step No Inconsistencies No Safety Awareness/Judgment: Poor, Lacks insight to deficits and Impulsive PROBLEM LIST: Decreased independence with ADL, Impaired postural control, Decreased functional ROM, Decreased strength/endurance for functional activity, Sensory deficits, Impaired safety awareness andImpaired Cognition REHAB POTENTIAL/PROGNOSIS: guarded PATIENT/FAMILY GOALS: unable to provide at this time TREATMENT/INTERVENTION PLAN: Functional motor treatment, Patient/Caregivier Education, Equipment recommendations, Daily living activities, Therapeutic exercises, Neuromuscular Re-Education, Sensory integration and Cognitive retraining GOAL(S): By discharge, patient will increase independence in daily living skills as follows: 1. Pt will tolerate semichair position for 10 minutes without adverse reaction. 2. Pt will participate in simple grooming activity with maximal assistance. 3. Pt will demo improved alertness and cognition for participation in self care task by following 1 step commands on 2/3 trials. 4 Patient will increase endurance for functional activity as evidenced by ability to sustain 8 minutes of active participation. 5 Patient/caregiver will verbalize/demonstrate understanding/proficiency in the following home programs: P/A/AAAROM, ADL Training, and Positioning PATIENT-FAMILY TEACHING Patient provided with preferred teaching of verbal information on Positioning, PROM, Role of OT and Safety awareness. Barriers to learning include physical limitations and cognitive limitations. Verbalinstruction teaching provided. Individual shows no evidence of learning and needs reinforcement of teaching. Delonte Rodriguez OTR Pager [phone] Total Timed Treatment Codes: 5 Min Total Treatment Time: 20 Min Patient Complexity Level High - An occupational therapy evaluation of high complexity was completed using the above tests and measures. The following information was obtained: An occupational profile and medical and therapy history, including review of medical and/or therapy records and extensive tyrone tional review of physical, cognitive, or psychosocial history related to current functional performance, Various standardized and non-standardized assessments were used to identify at least 5 or more performance deficits related to physical, cognitive, or psychosocial skills that result in activity limitations and/or participation restrictions and Clinical decision-making is of high analytic complexity, which includes an analysis of the patient profile, analysis of data from comprehensive assessment(s), and consideration of multiple treatment options. Patient present with comorbidities that affect occupational performance. Significant modification of tasks or assistance (e.g., physical or verbal) with assessment(s) is necessary to enable patient to complete evaluation component. documented in this encounter ED Notes Yu Albarran RN - 12/24/2019 12:18 PM CDT59 year old female coming to the ER for AMS. Patient follows directions. Having Eye movements. Old bruising on her left hip. Non reactive pinpoint pupils. Possible hx of HTN cocaine use and stroke Ang Mclean MD - 12/24/2019 12:16 PM CDT EMERGENCY DEPARTMENT ENCOUNTER [facility] Patient Name: Funmilayo Mcmillan Date of : 1960 59 year old Exam [facility] Primary Care Physician: Bev Chauhan Pre- Hospital Patient Escorted by: Self [9] Mode of Arrival: EMS - [facility] ([place]) [43] EMS Treatment Prior to ED Arrival: [facility] treatment: None Chief Complaint Chief Complaint Patient presents with Altered mental status HPI History provided by: Patient Altered mental status Presenting symptoms: behavior changes and disorientation Severity: Severe Most recent episode: 2 days ago (more than one day ago) Duration: 2 days Timing: Constant Progression: Worsening Chronicity: New Context: drug use Context comment: Cocaine use Associated symptoms: abnormal movement Past Medical History / Immunizations Past Medical History: Diagnosis Date CAD (coronary artery disease) 08/2013 s/p PCI (SAEID) to proximal LAD, 50% mid focal occlusion of LCx Depression HTN (hypertension) PAD (peripheral artery disease) 05/10/2015 Stroke Tuberculosis was treated for 6 months, was in longterm. Tetanus received in last 5 years: Unknown Childhood immunizations: Up-to-date Past Surgical History No past surgical history on file. Allergies No Known Allergies Social History Tobacco Use Former Smoker; Started 02/01/1973; Smokes 1 pack/day; Smoked: Cigarettes. Smokeless Tobacco: Former user of smokeless tobacco; Quit 06/02/1999; Types: Snuff. Comments: started smoking at 13 years old, uses a pack every 2 days when not smoking. Alcohol Use Yes; 0.0 standard drinks of alcohol per week; 0 Standard drinks or equivalent. Comments: 3 beers daily Drug Use Yes; "Crack" cocaine. Comments: history of crack cocaine, synthetic marijuana Review of Systems Review of Systems Unable to perform ROS: Mental status change Physical Exam BP (!) 199/99 | Pulse 59 | Temp 36.7 C (98 F) | Resp 18 | Wt 52.2 kg (115 lb) | SpO2 99% |BMI 18.56 kg/m Physical Exam Vitals signs reviewed. Constitutional: Appearance: She is well-developed. Comments: Appears disheveled HENT: Head: Normocephalic and atraumatic. Eyes: Conjunctiva/sclera: Conjunctivae normal. Neck: Musculoskeletal: Neck supple. Cardiovascular: Rate and Rhythm: Normal rate and regular rhythm. Heart sounds: Normal heart sounds. Pulmonary: Effort: Pulmonary effort is normal. No respiratory distress. Breath sounds: Normal breath sounds. No stridor. No wheezing or rales. Abdominal: General: Bowel sounds are normal. There is no distension. Palpations: Abdomen is soft. Tenderness: There is no abdominal tenderness. There is no guarding or rebound. Musculoskeletal: Normal range of motion. Skin: General: Skin is warm and dry. Neurological: Mental Status: She is alert. Cranial Nerves: No cranial nerve deficit. Sensory: No sensory deficit. Comments: Patient altered and cannot cooperate with exam Psychiatric: Behavior: Behavior normal. Thought Content: Thought content normal. Judgment: Judgment normal. NIH score cannot be completed because the patient is altered. Not a candidate for tPA because patient was last seen normal greater than 24 hours previously Uncontrolled HTN Labs Recent Results (from the past 24 hour(s)) AC PANEL 21 + LACTIC ACID Collection Time: 12/24/19 12:40 PM Result Value Ref Range PH 7.45 (H) 7.32 - 7.42 PCO2 GAMA 38 (L) 41 - 51 mmHg PO2 GAMA 30 25 - 40 mmHg HCO3 GAMA 26 24 - 28 mEq/L AC VBE(BEAKER) 1.9 mEq/L THB GAMA 17.2 (H) 12.0 - 16.0 g/dL %O2HB GAMA 61.0 52.0 - 63.0 % %COHB GAMA 1.4 0.0 - 1.5 % %METHB GAMA 0.3 (L) 0.4 - 1.5 % VOL%O2 GAMA 14.7 (H) 6.0 - 12.0 % NA 142 135 - 145 mmol/L K+ 3.7 3.5 - 5.0 mmol/L AC CA IONZ 4.60 4.50 - 5.30 mg/dL GLUCOSE 129 (H) 70 - 110 mg/dL LACTIC ACID 2.01 mmol/L CBC with Differential Collection Time: 12/24/19 12:41 PM Result Value Ref Range WBC 12.30 (H) 4.30 - 11.10 10*3/L RBC 5.25 3.93 - 5.25 10*6/L HGB 16.7 (H) 11.6 - 15.0 g/dL HCT 49.3 (H) 35.7 - 45.2 % MCV 93.9 80.6 - 95.5 fL MCH 31.8 25.9 - 32.8 pg MCHC 33.9 31.6 - 35.1 g/dL RDW-SD 43.6 39.0 - 49.9 fL RDW-CV 12.6 12.0 - 15.5 % PLT 229 166 - 358 10*3/L MPV 10.5 9.5 - 12.9 fL NRBC/100 WBC 0.0 0.0 - 10.0 /100 WBCs NRBC x10^3 <0.01 10*3/L GRAN MAT (NEUT) % 82.1 % IMM GRAN % 0.40 % LYMPH % 10.5 % MONO % 6.7 % EOS % 0.1 % BASO % 0.2 % GRAN MAT x10^3(ANC) 10.11 (H) 1.88 - 7.09 10*3/uL IMM GRAN x10^3 0.05 0.00 - 0.06 10*3/uL LYMPH x10^3 1.29 (L) 1.32 - 3.29 10*3/uL MONO x10^3 0.82 0.33 - 0.92 10*3/uL EOS x10^3 <0.03 (L) 0.03 - 0.39 10*3/uL BASO x10^3 <0.03 0.01 - 0.07 10*3/uL Basic Metabolic Panel (NA, K, CL, CO2, GLUCOSE, BUN, CREATININE, CA) Collection Time: 12/24/19 12:41 PM Result Value Ref Range NA 139 135 - 145 mmol/L K 3.5 3.5 - 5.0 mmol/L CL 103 98 - 108 mmol/L CO2 TOTAL 27 23 - 31 mmol/L AGAP 9 2 - 16 BUN 16 7 - 23 mg/dL GLUCOSE 127 (H) 70 - 110 mg/dL CREATININE 0.81 0.50 - 1.04 mg/dL CALCIUM 9.9 8.6 - 10.6 mg/dL eGFR Calculation (Non-) 72.6 mL/min/1.73m2 eGFR Calculation () 88.0 mL/min/1.73m2 Hepatic Function Panel (ALB, T.PRO, BILI T, BU/BC, ALT, AST, ALK PHOS) Collection Time: 12/24/19 12:41 PM Result Value Ref Range TOTAL BILI 0.7 0.1 - 1.1 mg/dL BILI UNCON 0.8 0.1 - 1.1 mg/dL BILI CONJ 0.0 0.0 - 0.3 mg/dL T PROTEIN 7.8 6.3 - 8.2 g/dL ALBUMIN 4.2 3.5 - 5.0 g/dL ALK PHOS 66 34 - 122 U/L ALTv 20 5 - 35 U/L AST(SGOT) 32 13 - 40 U/L Troponin I Collection Time: 12/24/19 12:41 PM Result Value Ref Range TROPONIN I 0.017 <=0.034 ng/mL aPTT Collection Time: 12/24/19 12:41 PM Result Value Ref Range APTT Patient 23 23 - 38 Seconds Prothrombin Time (PT) / INR Collection Time: 12/24/19 12:41 PM Result Value Ref Range PROTIME PATIENT 13.0 12.0 - 14.7 Seconds INR 1.0 SALICYLATE Collection Time: 12/24/19 12:41 PM Result Value Ref Range SALICYLATE <10 mg/L ETHANOL Collection Time: 12/24/19 12:41 PM Result Value Ref Range ALCOHOL <10 mg/dL MAGNESIUM Collection Time: 12/24/19 12:41 PM Result Value Ref Range MAGNESIUM 1.9 1.7 - 2.4 mg/dL ADC / [facility] - DRUG SCREEN TRIAGE Collection Time: 12/24/19 12:42 PM Result Value Ref Range BENZO U Negative Negative NAOMI U Negative Negative AMPHET Negative Negative THC Presumptive Positive (A) Negative METHADONE Negative Negative Meth U Negative Negative OPIATES Negative Negative Cocaine Metabolite Presumptive Positive (A) Negative PROPOXY Negative Negative Tric U Negative Negative PCP Negative Negative OXYCOD Negative Negative Urinalysis Collection Time: 12/24/19 12:43 PM Result Value Ref Range APPEARANCE Clear Clear COLOR Yellow Yellow PH 5.0 4.8 - 8.0 SP GRAVITY 1.023 1.003 - 1.030 GLU U QUAL Normal Normal BLOOD 2+ (A) Negative KETONES 5 mg/dL (A) Negative PROTEIN 100 mg/dL (A) Negative UROBILIN Normal Normal BILIRUBIN Negative Negative NITRITE Negative Negative LEUK LOGAN Negative Negative RBC/HPF 5 (H) 0 - 3 HPF WBC/HPF 2 0 - 5 HPF BACTERIA Negative Negative MUCOUS Slight (A) Negative LPF SQ EPITH <1 HPF GRAN CASTS 1 <=1 LPF [facility] Encounter on 12/24/19 CT HEAD WO CONTRAST Narrative CT HEAD WO CONTRAST HISTORY: Female 59 years Altered mental status (AMS), unclear cause COMPARISON: CT head dated 11/14/2018 TECHNIQUE: Routine CT head without contrast FINDINGS: There is slight effacement of the left lateral ventricle. The ventricles and cerebral sulci are otherwise normal in caliber and configuration. No hydrocephalus, midline shift or pathological extra axial fluid collection is present. The basal cisterns are unremarkable. No acute intracranial hemorrhage or mass effect is present. An acute-subacute infarct involving the left MCA territory is noted without evidence of hemorrhagic transformation. The ASPECTS score is estimated ot be 3. The salas-white matter differentiation is otherwise preserved. No additional parenchymal attenuation abnormality is present. The calvarium and skull base are unremarkable. The mastoid air cells and visualized paranasal air sinuses are clear. Impression Acute-subacute infarct in the left MCA territory with an ASPECTS score of around 3. No evidence of hemorrhagic transformation These findings were discussed with Dr. Mclean at the time of report dictation XR CHEST 1 VW Narrative XR CHEST 1 VW Comparison: 11/14/2018 History: pneumonia Technique: Frontal radiograph Findings: Suboptimal evaluation due to positioning. A nodular opacity in the left lung base likely represent a nipple shadow. The lungs are hyperinflated without focal consolidation. No pleural effusion or pneumothorax is identified. The cardiomediastinal silhouette is normal in size. No acute osseous abnormality is present. Impression Chronic emphysematous changes. No pleural effusion, pneumothorax or consolidative process. Preliminary Report Dictated by Resident: Dorene Yuen I, Isaiah Valentine MD., have reviewed this study and agree with the above report. Orders and Treatments Orders Placed This Encounter Procedures CT HEAD WO CONTRAST XR CHEST 1 VW Urinalysis CBC with Differential Basic Metabolic Panel (NA, K, CL, CO2, GLUCOSE, BUN, CREATININE, CA) Hepatic Function Panel (ALB, T.PRO, BILI T, BU/BC, ALT, AST, ALK PHOS) Troponin I aPTT Prothrombin Time (PT) / INR FREE T4 FREE T3 THYROID STIMULATING HORMONE SALICYLATE ETHANOL MAGNESIUM AC PANEL 21 + LACTIC ACID [facility] COVID-19 (ID NOW RAPID TESTING) Orders Placed This Encounter Medications LORazepam (ATIVAN) injection 0.5 mg niCARdipine (CARDENE I.V.) 40 mg in 200 mL 0.83% Sodium Chloride (RTU) infusion aspirin suppository 300 mg Procedures EKG Time 1221 Rate 64 Normal sinus Left axis deviation LBBB (old) QTc prolonged Abnormal EKG Notes & MDM Patient was evaluated for an emergency medical condition related to Altered mental status . Differential diagnoses considered by presenting complaints but not limited to: Substance abuse Metabolic encephalopathy ICH Assessment: The patient presents for AMS for approximately two days. The patient has a hx of CVA, CAD, and substance abuse. Per close associates the patient has been altered for two days and activated EMS. Upon arrival the patient was very altered and did not cooperate with exam. The patient was outside the window for any intervention and the patient was hypertensive. Spoke to Dr. Richards in regards to the patient.Decided on Nicardipine for BP control. No phentolamine in ADC. Prior to transfer the patient's bp decreased to 199 systolic. At that time I decided to hold Nicardipine and continue transfer. History, physical exam findings, results of visit, differential diagnosis, medication regimens and plan of future care have been considered. Additional MDM may be found in the ED course. Differential diagnosis considered and final disposition made based on information gathered during evaluation and may not be completely ruled out or specifically listed. Vital signs were rechecked before final disposition. Diagnosis ICD-10-CM ICD-9-CM 1. Altered mental status, unspecified altered mental status type R41.82 780.97 2. Hypertension, unspecified type I10 401.9 3. Cerebrovascular accident (CVA), unspecified mechanism I63.9 434.91 4. Cocaine abuse F14.10 305.60 Disposition & Follow Up ED Disposition ED Disposition Condition Comment Transfer - [facility] to IP[facility]Obs Patient's Medications START taking these medications No medications on file CONTINUE taking these medications which have NOT CHANGED ASPIRIN 81 MG EC TABLET Take 1 tablet by mouth daily. CITALOPRAM (CELEXA) 40 MG TABLET Take 1 Tab by mouth daily. MELOXICAM 7.5 MG TABLET Take 1 tablet by mouth daily. Ok to take 15mg daily (2 tablets) if 1 tablet does not help the pain. Take with food. METOPROLOL SUCCINATE XL 50 MG 24 HR TABLET Take 1 tablet by mouth daily. RISPERIDONE (RISPERDAL) 2 MG TABLET Take 1 Tab by mouth every morning. SIMVASTATIN 40 MG TABLET Take 1 tablet by mouth at bedtime. START taking Modified Medications as Prescribed No medications on file STOP taking these medications No medications on file Ang Mclean Jr., MD Clinical Web Specialist [facility] Emergency Department documented in this encounter Miscellaneous Notes Care Plan - Jacinta Torres RN - 01/11/2020 6:09 PM CDT Problem: Discharge Planning Goal: Adequate for discharge 01/11/2020 180 by Jacinta Torres RN Outcome: Adequate for discharge 01/11/2020 0843 by Jacinta Torres RN Outcome: Progressing as expected Problem: Discharge Planning Goal: Able to perform ADL 01/11/2020 180 by Jacinta Torres RN Outcome: Adequate for discharge 01/11/2020 0843 by Jacinta Torres RN Outcome: Progressing as expected Goal: Absence of venous thromboembolism 01/11/20201808 by Jacinta Torres, RN Outcome: Adequate for discharge 01/11/2020 08 by Jacinta Torres RN Outcome: Progressing as expected Goal: Knowledge of medication management 01/11/20201808 by Jacinta Torres, RN Outcome: Adequate for discharge 01/11/2020842 by Jacinta Torres, RN Outcome: Progressing as expected Goal: Knowledge of need for follow-up care 01/11/20201808 by Jacinta Torres, RN Outcome: Adequate for discharge 01/11/2020 08 by Jacinta Torres RN Outcome: Progressing as expected Goal: Knowledge of personal stroke risk factors 01/11/20201808 by Jacinta Torres, RN Outcome: Adequate for discharge 01/11/2020842 by Jacinta Torres RN Outcome: Progressing as expected Goal: Knowledge of stroke warning signs 01/11/20201808 by Jacinta Torres, RN Outcome: Adequate for discharge 01/11/2020842 by Jacinta Torres RN Outcome: Progressing as expected Goal: Facility placement (SNF, LTAC, LTC) appropriate for patient's abilities. 01/11/20201808 by Jacinta Torres RN Outcome: Adequate for discharge 01/11/2020842 by Jacinta Torres RN Outcome: Progressing as expected Problem: Cognitive-Perceptual Pattern - Impaired Goal: Able to achieve maximum level of cognitive ability 01/11/20201808 by Jacinta Torres, RN Outcome: Adequate for discharge 01/11/2020842 by Jacinta Torres, RN Outcome: Progressing as expected Goal: Mood stable 01/11/20201808 by Jacinta Torres, RN Outcome: Adequate for discharge 01/11/2020842 by Jacinta Torres, RN Outcome: Progressing as expected Problem: Falls, Risk of Goal: Absence of falls 01/11/20201808 by Jacinta Torres, RN Outcome: Adequate for discharge 01/11/2020 08 by Jacinta Torres, RN Outcome: Progressing as expected Problem: Mobility - Impaired Goal: Able to achieve maximum mobility level 01/11/20201808 by Jacinta Torres, RN Outcome: Adequate for discharge 01/11/2020 0843 by Jacinta Torers, RN Outcome: Progressing as expected Problem: Skin integrity Impaired (Risk or Actual) Goal: Wound healing 01/11/2020 1809 by Jacinta Torres, RN Outcome: Adequate for discharge 01/11/2020 0843 by Jacinta Torres, RN Outcome: Progressing as expected Problem: Respiratory Function - Impaired Goal: Able to cough effectively 01/11/2020 1809 by Jacinta Torres, RN Outcome: Adequate for discharge 01/11/2020 0843 by Jacinta Torres, RN Outcome: Progressing as expected Goal: Adequate oxygenation 01/11/2020 1809 by Jacinta Torres, RN Outcome: Adequate for discharge 01/11/2020 0843 by Jacinta Torres, RN Outcome: Progressing as expected Goal: Adequate work of breathing 01/11/2020 1809 by Jacinta Torres, RN Outcome: Adequate for discharge 01/11/2020 0843 by Jacinta Torres, RN Outcome: Progressing as expected Goal: Patent airway 01/11/2020 1809 by Jacinta Torres, RN Outcome: Adequate for discharge 01/11/2020 0843 by Jacinta Torres, RN Outcome: Progressing as expected Problem: Respiratory Function - Impaired Goal: Able to cough effectively 01/11/2020 1809 by Jacinta Torres, RN Outcome: Adequate for discharge 01/11/2020 0843 by Jacinta Torres, RN Outcome: Progressing as expected Goal: Adequate oxygenation 01/11/2020 1809 by Jacinta Torres, RN Outcome: Adequate for discharge 01/11/2020 0843 by Jacinta Torres, RN Outcome: Progressing as expected Goal: Adequate work of breathing 01/11/2020 1809 by Jacinta Torres, RN Outcome: Adequate for discharge 01/11/2020 0843 by Jacinta Torres, RN Outcome: Progressing as expected Goal: Patent airway 01/11/2020 1809 by Jacinta Torres, RN Outcome: Adequate for discharge 01/11/2020 0843 by Jacinta Torres, RN Outcome: Progressing as expected are Plan - Jacinta Torres RN - 01/11/2020 8:43 AM CDT Problem: Discharge Planning Goal: Adequate for discharge Outcome: Progressing as expected Problem: Discharge Planning Goal: Able to perform ADL Outcome: Progressing as expected Goal: Absence of venous thromboembolism Outcome: Progressing as expected Goal: Knowledge of medication management Outcome: Progressing as expected Goal: Knowledge of need for follow-up care Outcome: Progressing as expected Goal: Knowledge of personal stroke risk factors Outcome: Progressing as expected Goal: Knowledge of stroke warning signs Outcome: Progressing as expected Goal: Facility placement (SNF, LTAC, LTC) appropriate for patient's abilities. Outcome: Progressing as expected Problem: Cognitive-Perceptual Pattern - Impaired Goal: Able to achieve maximum level of cognitive ability Outcome: Progressing as expected Goal: Mood stable Outcome: Progressing as expected Problem: Falls, Risk of Goal: Absence of falls Outcome: Progressing as expected Problem: Mobility - Impaired Goal: Able to achieve maximum mobility level Outcome: Progressing as expected Problem: Skin integrity Impaired (Risk or Actual) Goal: Wound healing Outcome: Progressing as expected Problem: Respiratory Function - Impaired Goal: Able to cough effectively Outcome: Progressing as expected Goal: Adequate oxygenation Outcome: Progressing as expected Goal: Adequate work of breathing Outcome: Progressing as expected Goal: Patent airway Outcome: Progressing as expected Problem: Respiratory Function - Impaired Goal: Able to cough effectively Outcome: Progressing as expected Goal: Adequate oxygenation Outcome: Progressing as expected Goal: Adequate work of breathing Outcome: Progressing as expected Goal: Patent airway Outcome: Progressing as expected are Kumar Thorne RN - 01/11/2020 12:58 AM CDTProgressing as expected. are Jacinta Hinds RN - 01/10/2020 8:30 AM CDT Problem: Discharge Planning Goal: Adequate for discharge Outcome: Progressing as expected Problem: Discharge Planning Goal: Able to perform ADL Outcome: Progressing as expected Goal: Absence of venous thromboembolism Outcome: Progressing as expected Goal: Knowledge of medication management Outcome: Progressing as expected Goal: Knowledge of need for follow-up care Outcome: Progressing as expected Goal: Knowledge of personal stroke risk factors Outcome: Progressing as expected Goal: Knowledge of stroke warning signs Outcome: Progressing as expected Goal: Facility placement (SNF, LTAC, LTC) appropriate for patient's abilities. Outcome: Progressing as expected Problem: Cognitive-Perceptual Pattern - Impaired Goal: Able to achieve maximum level of cognitive ability Outcome: Progressing as expected Goal: Mood stable Outcome: Progressing as expected Problem: Falls, Risk of Goal: Absence of falls Outcome: Progressing as expected Problem: Mobility - Impaired Goal: Able to achieve maximum mobility level Outcome: Progressing as expected Problem: Skin integrity Impaired (Risk or Actual) Goal: Wound healing Outcome: Progressing as expected Problem: Respiratory Function - Impaired Goal: Able to cough effectively Outcome: Progressing as expected Goal: Adequate oxygenation Outcome: Progressing as expected Goal: Adequate work of breathing Outcome: Progressing as expected Goal: Patent airway Outcome: Progressing as expected Problem: Respiratory Function - Impaired Goal: Able to cough effectively Outcome: Progressing as expected Goal: Adequate oxygenation Outcome: Progressing as expected Goal: Adequate work of breathing Outcome: Progressing as expected Goal: Patent airway Outcome: Progressing as expected are Kumar Thorne RN - 01/09/2020 11:12 PM CDTProgressing as expected. TCKumar Ngo RN - 01/08/2020 11:20 PM CDTProgressing as expected. are Pedrito Barreto RN - 01/08/2020 9:19 AM CDT Problem: Discharge Planning Goal: Adequate for discharge Outcome: Progressing as expected Problem: Discharge Planning Goal: Able to perform ADL Outcome: Progressing as expected Goal: Absence of venous thromboembolism Outcome: Progressing as expected Goal: Knowledge of medication management Outcome: Progressing as expected Goal: Knowledge of need for follow-up care Outcome: Progressing as expected Goal: Knowledge of personal stroke risk factors Outcome: Progressing as expected Goal: Knowledge of stroke warning signs Outcome: Progressing as expected Goal: Facility placement (SNF, LTAC, LTC) appropriate for patient's abilities. Outcome: Progressing as expected Problem: Cognitive-Perceptual Pattern - Impaired Goal: Able to achieve maximum level of cognitive ability Outcome: Progressing as expected Goal: Mood stable Outcome: Progressing as expected Problem: Falls, Risk of Goal: Absence of falls Outcome: Progressing as expected Problem: Mobility - Impaired Goal: Able to achieve maximum mobility level Outcome: Progressing as expected Problem: Skin integrity Impaired (Risk or Actual) Goal: Wound healing Outcome: Progressing as expected Problem: Respiratory Function - Impaired Goal: Able to cough effectively Outcome: Progressing as expected Goal: Adequate oxygenation Outcome: Progressing as expected Goal: Adequate work of breathing Outcome: Progressing as expected Goal: Patent airway Outcome: Progressing as expected Problem: Respiratory Function - Impaired Goal: Able to cough effectively Outcome: Progressing as expected Goal: Adequate oxygenation Outcome: Progressing as expected Goal: Adequate work of breathing Outcome: Progressing as expected Goal: Patent airway Outcome: Progressing as expected are Plan - Isatu Tenorio RN - 01/08/2020 12:47 AM CDT Problem: Discharge Planning Goal: Adequate for discharge Outcome: Progressing as expected Problem: Discharge Planning Goal: Able to perform ADL Outcome: Progressing as expected Goal: Absence of venous thromboembolism Outcome: Progressing as expected Goal: Knowledge of medication management Outcome: Progressing as expected Goal: Knowledge of need for follow-up care Outcome: Progressing as expected Goal: Knowledge of personal stroke risk factors Outcome: Progressing as expected Goal: Knowledge of stroke warning signs Outcome: Progressing as expected Goal: Facility placement (SNF, LTAC, LTC) appropriate for patient's abilities. Outcome: Progressing as expected Problem: Cognitive-Perceptual Pattern - Impaired Goal: Able to achieve maximum level of cognitive ability Outcome: Progressing as expected Goal: Mood stable Outcome: Progressing as expected Problem: Falls, Risk of Goal: Absence of falls Outcome: Progressing as expected Problem: Mobility - Impaired Goal: Able to achieve maximum mobility level Outcome: Progressing as expected Problem: Skin integrity Impaired (Risk or Actual) Goal: Wound healing Outcome: Progressing as expected Problem: Respiratory Function - Impaired Goal: Able to cough effectively Outcome: Progressing as expected Goal: Adequate oxygenation Outcome: Progressing as expected Goal: Adequate work of breathing Outcome: Progressing as expected Goal: Patent airway Outcome: Progressing as expected Problem: Respiratory Function - Impaired Goal: Able to cough effectively Outcome: Progressing as expected Goal: Adequate oxygenation Outcome: Progressing as expected Goal: Adequate work of breathing Outcome: Progressing as expected Goal: Patent airway Outcome: Progressing as expected Pedrito Head RN - 01/07/2020 11:46 AM CDT Problem: Discharge Planning Goal: Adequate for discharge Outcome: Progressing as expected Problem: Discharge Planning Goal: Able to perform ADL Outcome: Progressing as expected Goal: Absence of venous thromboembolism Outcome: Progressing as expected Goal: Knowledge of medication management Outcome: Progressing as expected Goal: Knowledge of need for follow-up care Outcome: Progressing as expected Goal: Knowledge of personal stroke risk factors Outcome: Progressing as expected Goal: Knowledge of stroke warning signs Outcome: Progressing as expected Goal: Facility placement (SNF, LTAC, LTC) appropriate for patient's abilities. Outcome: Progressing as expected Problem: Falls, Risk of Goal: Absence of falls Outcome: Progressing as expected Problem: Cognitive-Perceptual Pattern - Impaired Goal: Able to achieve maximum level of cognitive ability Outcome: Progressing as expected Goal: Mood stable Outcome: Progressing as expected Problem: Mobility - Impaired Goal: Able to achieve maximum mobility level Outcome: Progressing as expected Problem: Skin integrity Impaired (Risk or Actual) Goal: Wound healing Outcome: Progressing as expected Problem: Respiratory Function - Impaired Goal: Able to cough effectively Outcome: Progressing as expected Goal: Adequate oxygenation Outcome: Progressing as expected Goal: Adequate work of breathing Outcome: Progressing as expected Goal: Patent airway Outcome: Progressing as expected Problem: Respiratory Function - Impaired Goal: Able to cough effectively Outcome: Progressing as expected Goal: Adequate oxygenation Outcome: Progressing as expected Goal: Adequate work of breathing Outcome: Progressing as expected Goal: Patent airway Outcome: Progressing as expected Fernanda Kahn RN - 01/07/2020 5:51 AM CDT Problem: Discharge Planning Goal: Adequate for discharge Outcome: Progressing as expected Problem: Discharge Planning Goal: Able to perform ADL Outcome: Progressing as expected Goal: Absence of venous thromboembolism Outcome: Progressing as expected Goal: Knowledge of medication management Outcome: Progressing as expected Goal: Knowledge of need for follow-up care Outcome: Progressing as expected Goal: Knowledge of personal stroke risk factors Outcome: Progressing as expected Goal: Knowledge of stroke warning signs Outcome: Progressing as expected Goal: Facility placement (SNF, LTAC, LTC) appropriate for patient's abilities. Outcome: Progressing as expected Problem: Cognitive-Perceptual Pattern - Impaired Goal: Able to achieve maximum level of cognitive ability Outcome: Progressing as expected Goal: Mood stable Outcome: Progressing as expected Problem: Falls, Risk of Goal: Absence of falls Outcome: Progressing as expected Problem: Mobility - Impaired Goal: Able to achieve maximum mobility level Outcome: Progressing as expected Problem: Skin integrity Impaired (Risk or Actual) Goal: Wound healing Outcome: Progressing as expected Problem: Respiratory Function - Impaired Goal: Able to cough effectively Outcome: Progressing as expected Goal: Adequate oxygenation Outcome: Progressing as expected Goal: Adequate work of breathing Outcome: Progressing as expected Goal: Patent airway Outcome: Progressing as expected Problem: Respiratory Function - Impaired Goal: Able to cough effectively Outcome: Progressing as expected Goal: Adequate oxygenation Outcome: Progressing as expected Goal: Adequate work of breathing Outcome: Progressing as expected Goal: Patent airway Outcome: Progressing as expected are Plan - Ginny Frazier RN - 01/06/2020 8:49 AM CDT Problem: Discharge Planning Goal: Adequate for discharge Outcome: Progressing as expected Problem: Discharge Planning Goal: Able to perform ADL Outcome: Progressing as expected Goal: Absence of venous thromboembolism Outcome: Progressing as expected Goal: Knowledge of medication management Outcome: Progressing as expected Goal: Knowledge of need for follow-up care Outcome: Progressing as expected Goal: Knowledge of personal stroke risk factors Outcome: Progressing as expected Goal: Knowledge of stroke warning signs Outcome: Progressing as expected Goal: Facility placement (SNF, LTAC, LTC) appropriate for patient's abilities. Outcome: Progressing as expected Problem: Cognitive-Perceptual Pattern - Impaired Goal: Able to achieve maximum level of cognitive ability Outcome: Progressing as expected Goal: Mood stable Outcome: Progressing as expected Problem: Falls, Risk of Goal: Absence of falls Outcome: Progressing as expected Problem: Mobility - Impaired Goal: Able to achieve maximum mobility level Outcome: Progressing as expected Problem: Skin integrity Impaired (Risk or Actual) Goal: Wound healing Outcome: Progressing as expected Problem: Respiratory Function - Impaired Goal: Able to cough effectively Outcome: Progressing as expected Goal: Adequate oxygenation Outcome: Progressing as expected Goal: Adequate work of breathing Outcome: Progressing as expected Goal: Patent airway Outcome: Progressing as expected Problem: Respiratory Function - Impaired Goal: Able to cough effectively Outcome: Progressing as expected Goal: Adequate oxygenation Outcome: Progressing as expected Goal: Adequate work of breathing Outcome: Progressing as expected Goal: Patent airway Outcome: Progressing as expected are Plan - Carlo West RN - 01/05/2020 11:12 PM CDT Problem: Discharge Planning Goal: Adequate for discharge Outcome: Progressing as expected Problem: Discharge Planning Goal: Able to perform ADL Outcome: Progressing as expected Goal: Absence of venous thromboembolism Outcome: Progressing as expected Goal: Knowledge of medication management Outcome: Progressing as expected Goal: Knowledge of need for follow-up care Outcome: Progressing as expected Goal: Knowledge of personal stroke risk factors Outcome: Progressing as expected Goal: Knowledge of stroke warning signs Outcome: Progressing as expected Goal: Facility placement (SNF, LTAC, LTC) appropriate for patient's abilities. Outcome: Progressing as expected Problem: Cognitive-Perceptual Pattern - Impaired Goal: Able to achieve maximum level of cognitive ability Outcome: Progressing as expected Goal: Mood stable Outcome: Progressing as expected Problem: Falls, Risk of Goal: Absence of falls Outcome: Progressing as expected Problem: Mobility - Impaired Goal: Able to achieve maximum mobility level Outcome: Progressing as expected Problem: Skin integrity Impaired (Risk or Actual) Goal: Wound healing Outcome: Progressing as expected Problem: Respiratory Function - Impaired Goal: Able to cough effectively Outcome: Progressing as expected Goal: Adequate oxygenation Outcome: Progressing as expected Goal: Adequate work of breathing Outcome: Progressing as expected Goal: Patent airway Outcome: Progressing as expected TCare Joel - Jacinta Torres RN - 01/04/2020 10:00 AM CDT Problem: Discharge Planning Goal: Adequate for discharge 01/04/2020 1000 by Jacinta Torres RN Outcome: Progressing as expected 01/04/2020 1000 by Jacinta Torres RN Outcome: Progressing as expected Problem: Discharge Planning Goal: Able to perform ADL 01/04/2020 1000 by Jacinta Torres RN Outcome: Progressing as expected 01/04/2020 1000 by Jacinta Torres RN Outcome: Progressing as expected Goal: Absence of venous thromboembolism 01/04/2020 1000 by Jacinta Torres RN Outcome: Progressing as expected 01/04/2020 1000 by Jacinta Torres RN Outcome: Progressing as expected Goal: Knowledge of medication management 01/04/2020 1000 by Jacinta Torres RN Outcome: Progressing as expected 01/04/2020 1000 by Jacinta Torres RN Outcome: Progressing as expected Goal: Knowledge of need for follow-up care 01/04/2020 1000 by Jacinta Torres RN Outcome: Progressing as expected 01/04/2020 1000 by Jacinta Torres RN Outcome: Progressing as expected Goal: Knowledge of personal stroke risk factors 01/04/2020 1000 by Jacinta Torres RN Outcome: Progressing as expected 01/04/2020 1000 by Jacinta Torres RN Outcome: Progressing as expected Goal: Knowledge of stroke warning signs 01/04/2020 1000 by Jacinta Torres RN Outcome: Progressing as expected 01/04/2020 1000 by Jacinta Torres RN Outcome: Progressing as expected Goal: Facility placement (SNF, LTAC, LTC) appropriate for patient's abilities. 01/04/2020 1000 by Jacinta Torres RN Outcome: Progressing as expected 01/04/2020 1000 by Jacinta Torres RN Outcome: Progressing as expected Problem: Cognitive-Perceptual Pattern - Impaired Goal: Able to achieve maximum level of cognitive ability 01/04/2020 1000 by Jacinta Torres RN Outcome: Progressing as expected 01/04/2020 1000 by Jacinta Torres RN Outcome: Progressing as expected Goal: Mood stable 01/04/2020 1000 by Jacinta Torres RN Outcome: Progressing as expected 01/04/2020 1000 by Jacinta Torres RN Outcome: Progressing as expected Problem: Falls, Risk of Goal: Absence of falls 01/04/2020 1000 by Jacinta Torres RN Outcome: Progressing as expected 01/04/2020 1000 by Jacinta Torres RN Outcome: Progressing as expected Problem: Mobility - Impaired Goal: Able to achieve maximum mobility level 01/04/2020 1000 by Jacinta Torres RN Outcome: Progressing as expected 01/04/2020 1000 by Jacinta Torres RN Outcome: Progressing as expected Problem: Skin integrity Impaired (Risk or Actual) Goal: Wound healing 01/04/2020 1000 by Jacinta Torres RN Outcome: Progressing as expected 01/04/2020 1000 by Jacinta Torres, RN Outcome: Progressing as expected Problem: Respiratory Function - Impaired Goal: Able to cough effectively 01/04/2020 1000 by Jacinta Torres RN Outcome: Progressing as expected 01/04/2020 1000 by Jacinta Torres RN Outcome: Progressing as expected Goal: Adequate oxygenation 01/04/2020 1000 by Jacinta Torres RN Outcome: Progressing as expected 01/04/2020 1000 by Jacinta Torres RN Outcome: Progressing as expected Goal: Adequate work of breathing 01/04/2020 1000 by Jacinta Torres RN Outcome: Progressing as expected 01/04/2020 1000 by Jacinta Torres RN Outcome: Progressing as expected Goal: Patent airway 01/04/2020 1000 by Jacinta Torres RN Outcome: Progressing as expected 01/04/2020 1000 by Jacinta Torres RN Outcome: Progressing as expected Problem: Respiratory Function - Impaired Goal: Able to cough effectively 01/04/2020 1000 by Jacinta Torres RN Outcome: Progressing as expected 01/04/2020 1000 by Jacinta Torres RN Outcome: Progressing as expected Goal: Adequate oxygenation 01/04/2020 1000 by Jacinta Torres RN Outcome: Progressing as expected 01/04/2020 1000 by Jacinta Torres RN Outcome: Progressing as expected Goal: Adequate work of breathing 01/04/2020 1000 by Jacinta Torres RN Outcome: Progressing as expected 01/04/2020 1000 by Jacinta Torres RN Outcome: Progressing as expected Goal: Patent airway 01/04/2020 1000 by Jacinta Torres RN Outcome: Progressing as expected 01/04/2020 1000 by Jacinta Torres RN Outcome: Progressing as expected are Joel - Alexa Wilde RN - 01/03/2020 1:29 PM CDT Problem: Discharge Planning Goal: Adequate for discharge Outcome: Progressing as expected Problem: Discharge Planning Goal: Able to perform ADL Outcome: Progressing as expected Goal: Absence of venous thromboembolism Outcome: Progressing as expected Goal: Knowledge of medication management Outcome: Progressing as expected Goal: Knowledge of need for follow-up care Outcome: Progressing as expected Goal: Knowledge of personal stroke risk factors Outcome: Progressing as expected Goal: Knowledge of stroke warning signs Outcome: Progressing as expected Goal: Facility placement (SNF, LTAC, LTC) appropriate for patient's abilities. Outcome: Progressing as expected Problem: Cognitive-Perceptual Pattern - Impaired Goal: Able to achieve maximum level of cognitive ability Outcome: Progressing as expected Goal: Mood stable Outcome: Progressing as expected Problem: Falls, Risk of Goal: Absence of falls Outcome: Progressing as expected Problem: Mobility - Impaired Goal: Able to achieve maximum mobility level Outcome: Progressing as expected Problem: Respiratory Function - Impaired Goal: Able to cough effectively Outcome: Progressing as expected Goal: Adequate oxygenation Outcome: Progressing as expected Goal: Adequate work of breathing Outcome: Progressing as expected Goal: Patent airway Outcome: Progressing as expected Problem: Respiratory Function - Impaired Goal: Able to cough effectively Outcome: Progressing as expected Goal: Adequate oxygenation Outcome: Progressing as expected Goal: Adequate work of breathing Outcome: Progressing as expected Goal: Patent airway Outcome: Progressing as expected are Plan - Jonathan Hernandez RN - 01/01/2020 10:06 AM CDT Problem: Discharge Planning Goal: Adequate for discharge Outcome: Progressing as expected Problem: Discharge Planning Goal: Able to perform ADL Outcome: Progressing as expected Goal: Absence of venous thromboembolism Outcome: Progressing as expected Goal: Knowledge of medication management Outcome: Progressing as expected Goal: Knowledge of need for follow-up care Outcome: Progressing as expected Goal: Knowledge of personal stroke risk factors Outcome: Progressing as expected Goal: Knowledge of stroke warning signs Outcome: Progressing as expected Goal: Facility placement (SNF, LTAC, LTC) appropriate for patient's abilities. Outcome: Progressing as expected Problem: Cognitive-Perceptual Pattern - Impaired Goal: Able to achieve maximum level of cognitive ability Outcome: Progressing as expected Goal: Mood stable Outcome: Progressing as expected Problem: Falls, Risk of Goal: Absence of falls Outcome: Progressing as expected Problem: Mobility - Impaired Goal: Able to achieve maximum mobility level Outcome: Progressing as expected Problem: Skin integrity Impaired (Risk or Actual) Goal: Wound healing Outcome: Progressing as expected Problem: Respiratory Function - Impaired Goal: Able to cough effectively Outcome: Progressing as expected Goal: Adequate oxygenation Outcome: Progressing as expected Goal: Adequate work of breathing Outcome: Progressing as expected Goal: Patent airway Outcome: Progressing as expected Problem: Respiratory Function - Impaired Goal: Able to cough effectively Outcome: Progressing as expected Goal: Adequate oxygenation Outcome: Progressing as expected Goal: Adequate work of breathing Outcome: Progressing as expected Goal: Patent airway Outcome: Progressing as expected Fernanda Kahn RN - 01/01/2020 7:09 AM CDT Problem: Discharge Planning Goal: Adequate for discharge Outcome: Progressing as expected Problem: Discharge Planning Goal: Able to perform ADL Outcome: Progressing as expected Goal: Absence of venous thromboembolism Outcome: Progressing as expected Goal: Knowledge of medication management Outcome: Progressing as expected Goal: Knowledge of need for follow-up care Outcome: Progressing as expected Goal: Knowledge of personal stroke risk factors Outcome: Progressing as expected Goal: Knowledge of stroke warning signs Outcome: Progressing as expected Goal: Facility placement (SNF, LTAC, LTC) appropriate for patient's abilities. Outcome: Progressing as expected Problem: Cognitive-Perceptual Pattern - Impaired Goal: Able to achieve maximum level of cognitive ability Outcome: Progressing as expected Goal: Mood stable Outcome: Progressing as expected Problem: Falls, Risk of Goal: Absence of falls Outcome: Progressing as expected Problem: Mobility - Impaired Goal: Able to achieve maximum mobility level Outcome: Progressing as expected Problem: Skin integrity Impaired (Risk or Actual) Goal: Wound healing Outcome: Progressing as expected Problem: Respiratory Function - Impaired Goal: Able to cough effectively Outcome: Progressing as expected Goal: Adequate oxygenation Outcome: Progressing as expected Goal: Adequate work of breathing Outcome: Progressing as expected Goal: Patent airway Outcome: Progressing as expected Problem: Respiratory Function - Impaired Goal: Able to cough effectively Outcome: Progressing as expected Goal: Adequate oxygenation Outcome: Progressing as expected Goal: Adequate work of breathing Outcome: Progressing as expected Goal: Patent airway Outcome: Progressing as expected Jonathan Handley RN - 12/31/2019 10:16 AM CDT Problem: Discharge Planning Goal: Adequate for discharge Outcome: Progressing as expected Problem: Discharge Planning Goal: Able to perform ADL Outcome: Progressing as expected Goal: Absence of venous thromboembolism Outcome: Progressing as expected Goal: Knowledge of medication management Outcome: Progressing as expected Goal: Knowledge of need for follow-up care Outcome: Progressing as expected Goal: Knowledge of personal stroke risk factors Outcome: Progressing as expected Goal: Knowledge of stroke warning signs Outcome: Progressing as expected Goal: Facility placement (SNF, LTAC, LTC) appropriate for patient's abilities. Outcome: Progressing as expected Problem: Cognitive-Perceptual Pattern - Impaired Goal: Able to achieve maximum level of cognitive ability Outcome: Progressing as expected Goal: Mood stable Outcome: Progressing as expected Problem: Falls, Risk of Goal: Absence of falls Outcome: Progressing as expected Problem: Mobility - Impaired Goal: Able to achieve maximum mobility level Outcome: Progressing as expected Problem: Skin integrity Impaired (Risk or Actual) Goal: Wound healing Outcome: Progressing as expected Problem: Respiratory Function - Impaired Goal: Able to cough effectively Outcome: Progressing as expected Goal: Adequate oxygenation Outcome: Progressing as expected Goal: Adequate work of breathing Outcome: Progressing as expected Goal: Patent airway Outcome: Progressing as expected Problem: Respiratory Function - Impaired Goal: Able to cough effectively Outcome: Progressing as expected Goal: Adequate oxygenation Outcome: Progressing as expected Goal: Adequate work of breathing Outcome: Progressing as expected Goal: Patent airway Outcome: Progressing as expected Denise Evans RN - 12/30/2019 6:22 AM CDT Problem: Discharge Planning Goal: Adequate for discharge Outcome: Progressing as expected Problem: Discharge Planning Goal: Absence of venous thromboembolism Outcome: Progressing as expected Goal: Facility placement (SNF, LTAC, LTC) appropriate for patient's abilities. Outcome: Progressing as expected Problem: Cognitive-Perceptual Pattern - Impaired Goal: Mood stable Outcome: Progressing as expected Problem: Falls, Risk of Goal: Absence of falls Outcome: Progressing as expected Problem: Skin integrity Impaired (Risk or Actual) Goal: Wound healing Outcome: Progressing as expected Problem: Respiratory Function - Impaired Goal: Able to cough effectively Outcome: Progressing as expected Goal: Adequate oxygenation Outcome: Progressing as expected Goal: Adequate work of breathing Outcome: Progressing as expected Goal: Patent airway Outcome: Progressing as expected Problem: Respiratory Function - Impaired Goal: Able to cough effectively Outcome: Progressing as expected Goal: Adequate oxygenation Outcome: Progressing as expected Goal: Adequate work of breathing Outcome: Progressing as expected Goal: Patent airway Outcome: Progressing as expected Michelle Lundy RN - 12/29/2019 3:03 AM CDT Problem: Discharge Planning Goal: Adequate for discharge Outcome: Progressing as expected Problem: Discharge Planning Goal: Able to perform ADL Outcome: Progressing as expected Goal: Absence of venous thromboembolism Outcome: Progressing as expected Goal: Knowledge of medication management Outcome: Progressing as expected Goal: Knowledge of need for follow-up care Outcome: Progressing as expected Goal: Knowledge of personal stroke risk factors Outcome: Progressing as expected Goal: Knowledge of stroke warning signs Outcome: Progressing as expected Goal: Facility placement (SNF, LTAC, LTC) appropriate for patient's abilities. Outcome: Progressing as expected Problem: Cognitive-Perceptual Pattern - Impaired Goal: Able to achieve maximum level of cognitive ability Outcome: Progressing as expected Goal: Mood stable Outcome: Progressing as expected Problem: Falls, Risk of Goal: Absence of falls Outcome: Progressing as expected Problem: Mobility - Impaired Goal: Able to achieve maximum mobility level Outcome: Progressing as expected Problem: Skin integrity Impaired (Risk or Actual) Goal: Wound healing Outcome: Progressing as expected Problem: Respiratory Function - Impaired Goal: Able to cough effectively Outcome: Progressing as expected Goal: Adequate oxygenation Outcome: Progressing as expected Goal: Adequate work of breathing Outcome: Progressing as expected Goal: Patent airway Outcome: Progressing as expected Nursing Note - Wilberto Jean RN - 12/28/2019 3:45 PM CDTTransferred patient to the floor and gave bedside report, daughter at bedside. ursing Note - Wilberto Jean RN - 12/28/2019 1:20 PM CDTTransfer report called and given to GILA Pérez are Plan - Wilberto Jean RN - 12/28/2019 10:12 AM CDT Problem: Discharge Planning Goal: Able to perform ADL Outcome: Not progressing as expected Goal: Knowledge of personal stroke risk factors Outcome: Not progressing as expected Problem: Cognitive-Perceptual Pattern - Impaired Goal: Able to achieve maximum level of cognitive ability Outcome: Not progressing as expected Problem: Falls, Risk of Goal: Absence of falls Outcome: Progressing as expected Problem: Skin integrity Impaired (Risk or Actual) Goal: Wound healing Outcome: Progressing as expected Problem: Respiratory Function - Impaired Goal: Able to cough effectively Outcome: Progressing as expected Goal: Adequate oxygenation Outcome: Progressing as expected Goal: Adequate work of breathing Outcome: Progressing as expected Goal: Patent airway Outcome: Progressing as expected Problem: Respiratory Function - Impaired Goal: Able to cough effectively Outcome: Progressing as expected Goal: Adequate oxygenation Outcome: Progressing as expected Goal: Adequate work of breathing Outcome: Progressing as expected Goal: Patent airway Outcome: Progressing as expected TCBev Liu RN - 12/28/2019 12:54 AM CDT Problem: Discharge Planning Goal: Adequate for discharge Outcome: Progressing as expected Problem: Discharge Planning Goal: Able to perform ADL Outcome: Progressing as expected Goal: Absence of venous thromboembolism Outcome: Progressing as expected Goal: Knowledge of medication management Outcome: Progressing as expected Goal: Knowledge of need for follow-up care Outcome: Progressing as expected Goal: Knowledge of personal stroke risk factors Outcome: Progressing as expected Goal: Knowledge of stroke warning signs Outcome: Progressing as expected Goal: Facility placement (SNF, LTAC, LTC) appropriate for patient's abilities. Outcome: Progressing as expected Problem: Cognitive-Perceptual Pattern - Impaired Goal: Able to achieve maximum level of cognitive ability Outcome: Progressing as expected Goal: Mood stable Outcome: Progressing as expected Problem: Falls, Risk of Goal: Absence of falls Outcome: Progressing as expected Problem: Mobility - Impaired Goal: Able to achieve maximum mobility level Outcome: Progressing as expected Problem: Skin integrity Impaired (Risk or Actual) Goal: Wound healing Outcome: Progressing as expected Problem: Respiratory Function - Impaired Goal: Able to cough effectively Outcome: Progressing as expected Goal: Adequate oxygenation Outcome: Progressing as expected Goal: Adequate work of breathing Outcome: Progressing as expected Goal: Patent airway Outcome: Progressing as expected Phoebe Samayoa RN - 12/26/2019 4:50 AM CDT Problem: Discharge Planning Goal: Adequate for discharge Outcome: Progressing as expected Problem: Discharge Planning Goal: Able to perform ADL Outcome: Progressing as expected Goal: Absence of venous thromboembolism Outcome: Progressing as expected Goal: Knowledge of medication management Outcome: Progressing as expected Goal: Knowledge of need for follow-up care Outcome: Progressing as expected Goal: Knowledge of personal stroke risk factors Outcome: Progressing as expected Goal: Knowledge of stroke warning signs Outcome: Progressing as expected Goal: Facility placement (SNF, LTAC, LTC) appropriate for patient's abilities. Outcome: Progressing as expected Problem: Cognitive-Perceptual Pattern - Impaired Goal: Able to achieve maximum level of cognitive ability Outcome: Progressing as expected Goal: Mood stable Outcome: Progressing as expected Problem: Falls, Risk of Goal: Absence of falls Outcome: Progressing as expected Problem: Mobility - Impaired Goal: Able to achieve maximum mobility level Outcome: Progressing as expected Problem: Skin integrity Impaired (Risk or Actual) Goal: Wound healing Outcome: Progressing as expected Care Plan - Ray Delaney RN - 12/25/2019 6:08 PM CDT Problem: Discharge Planning Goal: Adequate for discharge Outcome: Not progressing as expected D Nurse Note - Froylan Loco RN - 12/24/2019 2:47 PM CDTPassword for daughter Ayah is "Estelita Red". D Nurse Note - Yu Albarran RN - 12/24/2019 2:45 PM CDTReport Given to [facility]. Patient being loaded up for transport. D Nurse Note - Yu Albarran RN - 12/24/2019 2:36 PM CDTReport Given to GILA cordova. D Nurse Note - Froylan Loco RN - 12/24/2019 2:22 PM CDTAAEMC coming to transfer patient to [place]. D Nurse Note - Yu Albarran RN - 12/24/2019 2:04 PM CDTPRDave Jhaveri held at this time. Vinay informed. Bp 199/99. documented in this encounter Plan of Treatment Date Type Specialty Care Team Description 01/23/2020 Office Visit Internal Medicine Ryann Chauhan MD [address] [facility] [address] [place], [place] [address] 01/31/2020 Office Visit Vascular Surgery Gerard Hart MD [address] [place] [address] [phone] 03/14/2020 Appointment Radiology Renan Marcial MD [address] [place] [address] [phone] 06/11/2020 Office Visit Cardiology Daya Love M D [address] [place] [address] [address] [place], [place] [address] Name Type Priority Associated Diagnoses Date/Ti me WOUND/ASPIRATE OR LAB Routine 01/09/2020 11:15 AM ABSCESS CULTURE CDT BLOOD CULTURE SCREEN LAB Routine 020 9:04 AM CDT BLOOD CULTURE SCREEN LAB Routine 020 9:04 AM CDT WOUND CULTURE LAB Routine 01/09/2020 11: [address] THORAX W CONTRAST IMAGING Routine Altered mental statu s, 01/09/2020 3:54 PM unspecified altered CDT mental status type Name Type Priority Associated Diagnoses Order S chedule EKG-12 LEAD ROUTINE HEART STATION STAT ONCE fo r 1 Occurrences sta rting 12/25/2019 unti l 12/25/2019 EKG-12 LEAD ROUTINE HEART STATION STAT ONCE fo r 1 Occurrences sta rting 12/26/2019 unti l 12/26/2019 EKG-12 LEAD ROUTINE HEART STATION STAT ONCE fo r 1 Occurrences sta rting 12/27/2019 unti l 12/27/2019 EKG-12 LEAD ROUTINE HEART STATION STAT ONCE fo r 1 Occurrences sta rting 12/29/2019 unti l 12/29/2019 Cardiac Monitoring HEART STATION GAVI ONCE for 1 48 hours Occurrences sta rting 12/29/2019 unti l 12/29/2019 IR Gastro tube IMAGING Routine Altered mental Expected: 0 03/31/2020, change (with Fluoro) status, unspecified Expires: 12/29/2020 altered mental status type WOUND/ASPIRATE OR LAB Routine ONCE for 1 ABSCESS CULTURE Occurrences starting 01/09/2020 unti l 01/09/2020 URINALYSIS LAB Routine ONCE for 1 Occurrences sta rting 01/09/2020 unti l 01/09/2020 CBC WITH DIFF LAB Routine EVERY MORNING AT 0400 for 3 Days star ting 01/10/2020 unti l 01/12/2020, 2 completed Health Maintenance Due Date Last Done Comments COLON CANCER SCREENING ANNUAL 2011 FIT/FOBT COLON CANCER SCREENING FIT 2011 DNA EVERY 3 YEARS COLON CANCER SCREENING 2011 SIGMOIDOSCOPY EVERY 5 YEARS PAP SMEAR 08/03/2011 08/02/2008, 12/02/2004, 11/03/2003 Breast Cancer Screening 01/11/2014 01/11/2013, (MAMMOGRAM) 12/24/2012 DTaP,Tdap,and Td Vaccines (1 02/02/2020 Pos tponed from 1980 - Tdap) (Insurance / Fin ancial) Zoster Recombinant Vaccine 02/02/2020 Postp oned from 2011 (SHINGRIX) (1 of 2) (Insurance / Financial) INFLUENZA VACCINE (#1) 2020 Postponed from 11/15/2019 (Refused) Depression Screening 12/12/2020 12/13/2019 LUNG CANCER SCREEN: 01/08/2021 01/09/2020 Recommended for age 55-80 with 30 + pack year history COLONOSCOPY 06/06/2026 06/06/2016 Colorectal Cancer Screening 06/06/2026 HEPATITIS C (HCV) SCREEN Completed 10/01/2018, 12/31/2017 PNEUMOCOCCAL 0-64 YEARS Aged Out No longe r eligible based COMBINED SERIES on patient's age to complete this to pic documented as of this encounter Goals Goal Patient Goal Associated Recent Patient-Stated? Author Type Problems Progress Quit using Tobacco Use No [place], tobacco Roberta (cigarettes, smokeless, etc) documented as of this encounter Procedures Procedure Name Priority Date/Time Associated Diagnosis Comme nts CBC WITH DIFF Routine 01/11/2020 3:28 AM Results for this CDT procedure are i n the results section. CBC WITH DIFF Routine 01/10/2020 3:12 AM Results for this CDT procedure are i n the results section. HEPATIC FUNCTION Routine 01/09/2020 4:38 PM Resu lts for this PANEL (88110) CDT procedure are in (ALB,T.PRO,BILI the results T,BU/BC,ALT,AST,ALK section. PHOS) CT THORAX W Routine 01/09/2020 3:54 PM Altered mental CONTRAST CDT status, unspecified altered mental status type Procedure Note - [facility], Radia nt Results Inft User - 01/10/2020 11:34 AM CDT PROCEDURE: CT CHEST WITH CONTRAST - CHEST PROTOCOL CLINICAL INDICATION: Altered mental status COMPARISON: Radiographs from 01/07/2020 TECHNIQUE: Helical CT was p erformed of the chest (lung apices to bases) using 100 mL Omnipaque 350 n onionic intravenous contrast, without complication. Images were re constructed at 1.25 mm slice thickness. MIP and coronal & sagittal MPR image s were generated and reviewed. (DFOV = 33 cm) FINDINGS: Lower neck/thyroid: Normal t hyroid gland. Lungs/Pleura: Limited evalua tion of the lower lobes due to respiratory motion artifact. Mild centri lobular and paraseptal emphysematous changes, predominantly in the upper l obes. Bibasilar dependent atelectasis. A 1.9 cm heterogenous consolidative o pacity in the peripheral inferior right upper lobe along the major fissure with a groundglass halo is seen with surrounding spiculated inter stitial nodules throughout the right upper lobe measuring up to 5 mm on 301: 88. A 4 mm left lower lobe groundglass nodule is seen on 301:129. No pleur al thickening, pleural effusion or pneumothorax. Central airway: The central airways are patent. Mild cylindrical bronchiectasis and central b ronchial wall thickening. Mild varicose appearance of the lingular s egmental bronchi on 301:125 may be artifactual. Thoracic aorta and great ves sels: Normal in diameter.. Bovine arch. Pulmonary arteries: Normal i n caliber. Hypodense appearance of the left lower lobe segmental pulmona ry arteries on 603:100 is likely artifactual. Evaluation for pulmonary emb cornelio is limited due to suboptimal timing of the contrast bolus. Heart and pericardium: Dense multivessel coronary arterial calcifications/stents. Unrem arkable cardiac morphology and pericardium. Lymph nodes: Prominent 1.0 c m right hilar lymph node and a 1.1 cm subaortic lymph node, nonspecific but likely reactive. Additional subcentimeter mediastinal, supraclavicular , distal paraesophageal/pericardial lymph nodes and bilateral axillary lymph nodes are noted. Mediastinum: Small sliding h iatal hernia with distal esophageal wall thickening, nonspecific but can be seen with esophagitis. Trace gastroesophageal reflux. Thoracic spine and chest wal l: No suspicious or aggressive osseous lesion. Mild chronic anterior wedgin g of T12 and L1. Spondylitic changes at C6-C7, partially visualized. Calcif ication of the PLL versus remote avulsion fragments at the midthoracic spine as processes. Remote fracture of the right anterolateral fifth ri b Other Lines/Tubes/Devices/Iraheta rdware: Gastrostomy tube partially visualized. Visualized upper abdomen: Si mple renal cysts measure up to 2.0 cm and the left kidney. Mild hydronephr osis versus extrarenal pelvis, partially visualized. Vascular calcifi cations versus nonobstructing calculi in the left renal pelvis. ___ IMPRESSION 1.9 cm heterogeneous consoli dation in the peripheral right upper lobe with a groundglass halo and surro unding subcentimeter interstitial nodules throughout the right upper l obe. Additionally, there is mild central bronchial wall thickening an d likely reactive prominent mediastinal/right hilar lymphadenopathy. Findi ngs likely represent an infectious etiology-consider atypical b acterial/fungal infections. Malignancy such as bronchoalveolar carcinoma, a s well as inflammatory etiologies such as pulmonary embolism/hemorrhag e are also possible, but less likely. Recommend follow-up chest CT in 4-6 mo nths after appropriate treatment. Small sliding hiatal hernia with gastroesophageal reflux and distal esophageal wall thickening, nonspecific but can be seen with esophagitis. Correlate clinically. Multivessel coronary arteria l calcifications. ___ Preliminary Report Dictated by Resident: Thiago Villalba WOUND CULTURE Routine 01/09/2020 11:15 AM CDT BILATERAL VENOUS DUPLEX Routine 01/09/2020 9:33 LOWER EXTREMITY BY VASCULAR AM CDT LAB URINALYSIS Routine 01/09/2020 9:07 Results for AM CDT this procedure are in the results section. BLOOD CULTURE SCREEN Routine 01/09/2020 9:04 AM CDT BLOOD CULTURE SCREEN Routine 01/09/2020 9:04 AM CDT CBC WITH DIFF Routine 01/09/2020 3:47 Results fo r AM CDT this procedure are in the results section. CBC WITH DIFF Routine 01/08/2020 1:05 Results fo r AM CDT this procedure are in the results section. XR CHEST 1 VW STAT 01/07/2020 9:55 Altered mental Results for AM CDT status, this procedure unspecified are in the altered mental results status type section. CBC WITHOUT DIFF Routine 01/07/2020 4:38 Results for AM CDT this procedure are in the results section. BASIC METABOLIC PANEL (NA, Routine 01/07/2020 4:38 Results for K, CL, CO2, GLUCOSE, BUN, AM CDT th is procedure CREATININE, CA) are in the results section. URINALYSIS Routine 01/05/2020 6:45 Results for PM CDT this procedure are in the results section. CBC WITHOUT DIFF Routine 01/05/2020 8:56 Results for AM CDT this procedure are in the results section. BASIC METABOLIC PANEL (NA, Routine 01/05/2020 8:56 Results for K, CL, CO2, GLUCOSE, BUN, AM CDT th is procedure CREATININE, CA) are in the results section. FL MODIFIED BARIUM SWALLOW Routine 01/03/2020 11:00 Altered me ntal Results for AM CDT status, this procedure unspecified are in the altered mental results status type section. CBC WITH DIFF Routine 01/01/2020 4:26 Results fo r AM CDT this procedure are in the results section. BASIC METABOLIC PANEL (NA, Routine 01/01/2020 4:26 Results for K, CL, CO2, GLUCOSE, BUN, AM CDT th is procedure CREATININE, CA) are in the results section. MAGNESIUM Routine 01/01/2020 4:26 Results for AM CDT this procedure are in the results section. CBC WITH DIFF Routine 12/31/2019 4:11 Results fo r AM CDT this procedure are in the results section. BASIC METABOLIC PANEL (NA, Routine 12/31/2019 4:11 Results for K, CL, CO2, GLUCOSE, BUN, AM CDT th is procedure CREATININE, CA) are in the results section. MAGNESIUM Routine 12/31/2019 4:11 Results for AM CDT this procedure are in the results section. IR G-TUBE PLACEMENT Routine 12/30/2019 7:10 Altered mental Re sults for PERCUTANEOUS PM CDT status, this procedure unspecified are in the altered mental results status type section. XR CHEST 1 VW STAT 12/30/2019 7:07 Altered mental Results for AM CDT status, this procedure unspecified are in the altered mental results status type section. EKG-12 LEAD Routine 12/30/2019 3:41 AM CDT CBC WITH DIFF GAVI 12/30/2019 3:24 Results fo r AM CDT this procedure are in the results section. BASIC METABOLIC PANEL (NA, GAVI 12/30/2019 3:24 Results for K, CL, CO2, GLUCOSE, BUN, AM CDT th is procedure CREATININE, CA) are in the results section. MAGNESIUM GAVI 12/30/2019 3:24 Results for AM CDT this procedure are in the results section. XR KUB GAVI 12/29/2019 3:29 Altered mental Results f or PM CDT status, this procedure unspecified are in the altered mental results status type section. ECHO ROUTINE W/DOPPLER Routine 12/29/2019 2:46 Altered mental COLOR PM CDT status, unspecified altered mental status type XR CHEST 1 VW STAT 12/29/2019 12:10 Altered mental Results for PM CDT status, this procedure unspecified are in the altered mental results status type section. EKG-12 LEAD Routine 12/29/2019 11:53 AM CDT AC PANEL 20 + LACTIC ACID Routine 12/29/2019 11:51 Results for AM CDT this procedure are in the results section. POCT GLUCOSE (AUTOMATED) Routine 12/29/2019 11:37 Results for AM CDT this procedure are in the results section. CBC WITH DIFF Routine 12/29/2019 4:38 Results fo r AM CDT this procedure are in the results section. BASIC METABOLIC PANEL (NA, Routine 12/29/2019 4:38 Results for K, CL, CO2, GLUCOSE, BUN, AM CDT th is procedure CREATININE, CA) are in the results section. MAGNESIUM Routine 12/29/2019 4:38 Results for AM CDT this procedure are in the results section. ECHO ROUTINE W/DOPPLER Routine 12/28/2019 10:32 Altered mental COLOR AM CDT status, unspecified altered mental status type CBC WITH DIFF GAVI 12/28/2019 3:19 Results fo r AM CDT this procedure are in the results section. N-TERMINAL PRO-BNP Add-on 12/28/2019 2:37 Resul ts for AM CDT this procedure are in the results section. PROTHROMBIN TIME / INR GAVI 12/28/2019 2:37 R esults for AM CDT this procedure are in the results section. BASIC METABOLIC PANEL (NA, GAVI 12/28/2019 2:37 Results for K, CL, CO2, GLUCOSE, BUN, AM CDT th is procedure CREATININE, CA) are in the results section. MAGNESIUM GAVI 12/28/2019 2:37 Results for AM CDT this procedure are in the results section. EKG-12 LEAD Routine 12/27/2019 10:01 AM CDT CBC WITH DIFF GAVI 12/27/2019 3:29 Results fo r AM CDT this procedure are in the results section. BASIC METABOLIC PANEL (NA, GAVI 12/27/2019 3:29 Results for K, CL, CO2, GLUCOSE, BUN, AM CDT th is procedure CREATININE, CA) are in the results section. MAGNESIUM GAVI 12/27/2019 3:29 Results for AM CDT this procedure are in the results section. ELECTROENCEPHALOGRAM Routine 12/27/2019 Altered mental Resul ts for status, this procedure unspecified are in the altered mental results status type section. XR KUB GAVI 12/26/2019 4:35 Altered mental Results f or PM CDT status, this procedure unspecified are in the altered mental results status type section. ECHO ROUTINE W/DOPPLER Routine 12/26/2019 3:25 Altered mental COLOR PM CDT status, unspecified altered mental status type Cocaine abuse MR BRAIN WO CONTRAST STAT 12/26/2019 11:45 Altered mental R esults for AM CDT status, this procedure unspecified are in the altered mental results status type section. Cocaine abuse EKG-12 LEAD Routine 12/26/2019 7:44 AM CDT CBC WITH DIFF GAVI 12/26/2019 4:05 Results fo r AM CDT this procedure are in the results section. BASIC METABOLIC PANEL (NA, GAVI 12/26/2019 4:05 Results for K, CL, CO2, GLUCOSE, BUN, AM CDT th is procedure CREATININE, CA) are in the results section. TROPONIN I Add-on 12/26/2019 4:05 Results for AM CDT this procedure are in the results section. XR KUB STAT 12/26/2019 1:06 Altered mental Results f or AM CDT status, this procedure unspecified are in the altered mental results status type section. BLOOD CULTURE SCREEN [facility] 12/25/2019 3:26 Res ults for AM CDT this procedure are in the results section. CBC WITHOUT DIFF [facility] 12/25/2019 3:06 Results for AM CDT this procedure are in the results section. BASIC METABOLIC PANEL (NA, [facility] 12/25/2019 3:06 Results for K, CL, CO2, GLUCOSE, BUN, AM CDT th is procedure CREATININE, CA) are in the results section. BLOOD CULTURE SCREEN [facility] 12/25/2019 3:06 Res ults for AM CDT this procedure are in the results section. EKG-12 LEAD Routine 12/25/2019 2:49 AM CDT XR ABDOMEN 1 VW STAT 12/24/2019 9:38 Altered mental Result s for PM CDT status, this procedure unspecified are in the altered mental results status type section. CT ANGIOGRAM NECK STAT 12/24/2019 5:57 Altered mental Resu lts for PM CDT status, this procedure unspecified are in the altered mental results status type section. Cocaine abuse CT ANGIOGRAM HEAD STAT 12/24/2019 5:57 Altered mental Resu lts for PM CDT status, this procedure unspecified are in the altered mental results status type section. Cocaine abuse EKG-12 LEAD Routine 12/24/2019 5:15 PM CDT MRSA / MSSA SCREEN BY PCR, [facility] 12/24/2019 4:53 Results for NARES PM CDT this procedure are in the results section. COVID-19 (ID NOW RAPID STAT 12/24/2019 1:53 Altered mental Results for TESTING) PM CDT status, this procedure unspecified are in the altered mental results status type section. Hypertension, unspecified type Cerebrovascular accident (CVA), unspecified mechanism CT HEAD WO CONTRAST STAT 12/24/2019 1:27 Altered mental Re sults for PM CDT status, this procedure unspecified are in the altered mental results status type section. XR CHEST 1 VW STAT 12/24/2019 1:27 Altered mental Results for PM CDT status, this procedure unspecified are in the altered mental results status type section. URINALYSIS STAT 12/24/2019 12:43 Altered mental Results f or PM CDT status, this procedure unspecified are in the altered mental results status type section. ADC / LCC - DRUG SCREEN STAT 12/24/2019 12:42 Altered menta l Results for TRIAGE PM CDT status, this procedure unspecified are in the altered mental results status type section. FREE T3 STAT 12/24/2019 12:41 Altered mental Results f or PM CDT status, this procedure unspecified are in the altered mental results status type section. ACTIVATED PARTIAL THRMPLAS STAT 12/24/2019 12:41 Altered me ntal Results for SAMARIA PM CDT status, this procedure unspecified are in the altered mental results status type section. PROTHROMBIN TIME / INR STAT 12/24/2019 12:41 Altered mental Results for PM CDT status, this procedure unspecified are in the altered mental results status type section. GLYCOSYLATED HEMOGLOBIN Add-on 12/24/2019 12:41 Results for (A1C) PM CDT this procedure are in the results section. CBC WITH DIFF STAT 12/24/2019 12:41 Altered mental Results for PM CDT status, this procedure unspecified are in the altered mental results status type section. ETHANOL STAT 12/24/2019 12:41 Altered mental Results f or PM CDT status, this procedure unspecified are in the altered mental results status type section. SALICYLATE STAT 12/24/2019 12:41 Altered mental Results f or PM CDT status, this procedure unspecified are in the altered mental results status type section. LIPID PANEL ([id number])(TOTAL Add-on 12/24/2019 12:41 Results for CHOLESTEROL, TRIGLYCERIDES, PM CDT this procedure HDL) are in the results section. BASIC METABOLIC PANEL (NA, STAT 12/24/2019 12:41 Altered me ntal Results for K, CL, CO2, GLUCOSE, BUN, PM CDT status, th is procedure CREATININE, CA) unspecified are in the altered mental results status type section. HEPATIC FUNCTION PANEL STAT 12/24/2019 12:41 Altered mental Results for ([id number]) (ALB,T.PRO,BILI PM CDT status, this procedure T,BU/BC,ALT,AST,ALK PHOS) unspecified ar e in the altered mental results status type section. THYROID STIMULATING HORMONE STAT 12/24/2019 12:41 Altered m ental Results for PM CDT status, this procedure unspecified are in the altered mental results status type section. FREE T4 STAT 12/24/2019 12:41 Altered mental Results f or PM CDT status, this procedure unspecified are in the altered mental results status type section. TROPONIN I STAT 12/24/2019 12:41 Altered mental Results f or PM CDT status, this procedure unspecified are in the altered mental results status type section. MAGNESIUM STAT 12/24/2019 12:41 Altered mental Results f or PM CDT status, this procedure unspecified are in the altered mental results status type section. AC PANEL 21 + LACTIC ACID STAT 12/24/2019 12:40 Altered men santosh Results for PM CDT status, this procedure unspecified are in the altered mental results status type section. EKG-12 LEAD STAT 12/24/2019 12:22 PM CDT EKG-12 LEAD Routine 12/24/2019 12:21 PM CDT HOSPITAL ADMISSION Routine 12/24/2019 12:01 AM CDT EMERGENCY SERVICES Routine 12/24/2019 12:01 AGREEMENTS AND AM CDT AUTHORIZATIONS EMERGENCY DEPARTMENT Routine 12/24/2019 12:01 DOCUMENTS AM CDT documented in this encounter Results CBC WITH DIFF (01/11/2020 3:28 AM CDT) Pathologist Sig nature WBC 10.90 4.30 - 11.10 [facility] 10*3/L SERVICES RBC 3.68 (L) 3.93 - 5.25 [facility] 10*6/L SERVICES HGB 11.4 (L) 11.6 - 15.0 [facility] g/dL SERVICES HCT 35.1 (L) 35.7 - 45.2 % [facility] MCV 95.4 80.6 - 95.5 fL [facility] MCH 31.0 25.9 - 32.8 pg [facility] MCHC 32.5 31.6 - 35.1 [facility] g/dL SERVICES RDW-SD 41.8 39.0 - 49.9 fL [facility] RDW-CV 12.0 12.0 - 15.5 % [facility] PLT 257 166 - 358 [facility] 10*3/L SERVICES MPV 10.9 9.5 - 12.9 fL [facility] NRBC/100 WBC 0.0 0.0 - 10.0 /100 [facility] WBCs SERVICES NRBC x10^3 <0.01 10*3/L [facility] GRAN MAT (NEUT) % 79.1 % [facility] IMM GRAN % 0.20 % [facility] LYMPH % 10.7 % [facility] MONO % 7.5 % [facility] EOS % 2.3 % [facility] BASO % 0.2 % [facility] GRAN MAT x10^3(ANC) 8.62 (H) 1.88 - 7.09 [facility] 10*3/uL SERVICES IMM GRAN x10^3 <0.03 0.00 - 0.06 [facility] 10*3/uL SERVICES LYMPH x10^3 1.17 (L) 1.32 - 3.29 [facility] 10*3/uL SERVICES MONO x10^3 0.82 0.33 - 0.92 [facility] 10*3/uL SERVICES EOS x10^3 0.25 0.03 - 0.39 [facility] 10*3/uL SERVICES BASO x10^3 <0.03 0.01 - 0.07 [facility] 10*3/uL SERVICES Specimen Blood - LINE, VENOUS Performing Organization Address City/State/Zipcode Phone Number [facility] CLIA: [id number] [place] [address] [place] [address] CBC WITH DIFF (01/10/2020 3:12 AM CDT) Pathologist Sig nature WBC 11.21 (H) 4.30 - 11.10 [facility] 10*3/L SERVICES RBC 3.57 (L) 3.93 - 5.[address] [facility] 10*6/L SERVICES HGB 11.2 (L) 11.6 - 15.0 [facility] g/dL SERVICES HCT 34.1 (L) 35.7 - 45.2 % [facility] MCV 95.5 80.6 - 95.5 fL [facility] MCH 31.4 25.9 - 32.8 pg [facility] MCHC 32.8 31.6 - 35.1 [facility] g/dL SERVICES RDW-SD 42.1 39.0 - 49.9 fL [facility] SERVICES RDW-CV 12.0 12.0 - 15.5 % [facility] PLT 217 166 - [address] [facility] 10*3/L SERVICES MPV 10.7 9.5 - 12.[address] [facility] NRBC/100 WBC 0.0 0.0 - 10.0 /[address] [facility] WBCs SERVICES NRBC x10^3 <0.01 10*3/L [facility] GRAN MAT (NEUT) % 81.8 % [facility] IMM GRAN % 0.40 % [facility] LYMPH % 9.2 % [facility] MONO % 7.0 % [facility] EOS % 1.4 % [facility] BASO % 0.2 % [facility] GRAN MAT x10^3(ANC) 9.18 (H) 1.88 - 7.09 [facility] 10*3/uL SERVICES IMM GRAN x10^3 0.04 0.00 - 0.06 [facility] 10*3/uL SERVICES LYMPH x10^3 1.03 (L) 1.32 - 3.29 [facility] 10*3/uL SERVICES MONO x10^3 0.78 0.33 - 0.92 [facility] 10*3/uL SERVICES EOS x10^3 0.16 0.03 - 0.39 [facility] 10*3/uL SERVICES BASO x10^3 <0.03 0.01 - 0.07 [facility] 10*3/uL SERVICES Specimen Blood - LINE, VENOUS Performing Organization Address City/State/Zipcode Phone Number [facility] CLIA: [id number] [place] [address] [place] [address] HEPATIC FUNCTION PANEL ([id number]) (ALB,T.PRO,BILI T,BU/BC,ALT,AST,ALK PHOS) (01/09/2020 4:38 PM CDT) Pathologist Sig nature TOTAL BILI 0.2 0.1 - 1.1 mg/dL [facility] BILI UNCON 0.2 0.1 - 1.1 mg/dL [facility] BILI CONJ 0.0 0.0 - 0.3 mg/dL [facility] T PROTEIN 6.3 6.3 - 8.2 g/dL [facility] ALBUMIN 2.9 (L) 3.5 - 5.0 g/dL [facility] ALK PHOS 55 34 - 122 U/L [facility] ALTv 23 5 - 35 U/L [facility] AST(SGOT) 30 13 - 40 U/L [facility] Specimen Blood - ARM, LEFT Performing Organization Address [facility]/[employer] Phone Number [facility] CLIA: [id number] [place] [address] [place] [address] URINALYSIS (01/09/2020 9:07 AM CDT) APPEARANCE Cloudy (A) Clear [facility] COLOR Yellow Yellow [facility] PH 6.0 4.8 - 8.0 [facility] SP GRAVITY 1.016 1.003 - 1.[address] [facility] GLU U QUAL Normal Normal [facility] BLOOD NegativeComment: Negative [facility] INTERFERENCE FROM SERVICES ASCORBIC ACID MAY CAUSE FALSE NEGATIVE RESULT KETONES Negative Negative [facility] PROTEIN Negative Negative [facility] UROBILIN Normal Normal [facility] BILIRUBIN Negative Negative [facility] NITRITE Positive (A) Negative [facility] [place] 500/uL (A) Negative [facility] RBC/HPF 19 (H) 0 - 3 HPF [facility] WBC/HPF 85 (H) 0 - 5 HPF [facility] BACTERIA Many (A) Negative [facility] MUCOUS Slight (A) Negative LPF [facility] AMORPHOUS Few (A) Rare HPF [facility] SQ EPITH 1 <=[address] [facility] Specimen Urine - URINE, CLEAN CATCH Performing Organization Address City/[facility]/[employer] Phone Number [facility] CLIA: [id number] [place] [address] [place] [address] CBC WITH DIFF (01/09/2020 3:47 AM CDT) Pathologist Sig nature WBC 16.99 (H) 4.30 - 11.10 [facility] 10*3/L SERVICES RBC 4.32 3.93 - 5.25 [facility] 10*6/L SERVICES HGB 13.5 11.6 - 15.[address] [facility] g/dL SERVICES HCT 40.9 35.7 - 45.2 % [facility] MCV 94.7 80.6 - 95.5 fL [facility] MCH 31.3 25.9 - 32.8 pg [facility] MCHC 33.0 31.6 - 35.1 [facility] g/dL SERVICES RDW-SD 41.8 39.0 - 49.9 fL [facility] RDW-CV 11.9 (L) 12.0 - 15.5 % [facility] PLT 286 166 - 358 [facility] 10*3/L SERVICES MPV 11.0 9.5 - 12.9 fL [facility] NRBC/100 WBC 0.0 0.0 - 10.0 /100 [facility] WBCs SERVICES NRBC x10^3 <0.01 10*3/L [facility] GRAN MAT (NEUT) % 88.6 % [facility] IMM GRAN % 0.50 % [facility] LYMPH % 5.5 % [facility] MONO % 4.4 % [facility] EOS % 0.8 % [facility] BASO % 0.2 % [facility] GRAN MAT x10^3(ANC) 15.04 (H) 1.88 - 7.09 [facility] 10*3/uL SERVICES IMM GRAN x10^3 0.09 (H) 0.00 - 0.06 [facility] 10*3/uL SERVICES LYMPH x10^3 0.94 (L) 1.32 - 3.29 [facility] 10*3/uL SERVICES MONO x10^3 0.75 0.33 - 0.92 [facility] 10*3/uL SERVICES EOS x10^3 0.13 0.03 - 0.39 [facility] 10*3/uL SERVICES BASO x10^3 0.04 0.01 - 0.07 [facility] 10*3/uL SERVICES Specimen Blood - LINE, VENOUS Performing Organization Address City/State/Zipcode Phone Number [facility] CLIA: [id number] [place], [place] [id number] [address] [place] [address] CBC WITH DIFF (01/08/2020 1:05 AM CDT) [facility] nature WBC 14.88 (H) 4.30 - 11.10 [facility] 10*3/L SERVICES RBC 4.17 3.93 - 5.25 [facility] 10*6/L SERVICES HGB 13.1 11.6 - 15.[address] [facility] g/dL SERVICES HCT 39.3 35.7 - 45.2 % [facility] LABORATORY SERVICES MCV 94.2 80.6 - 95.[address] [facility] LABORATORY SERVICES MCH 31.4 25.9 - 32.[address] [facility] LABORATORY SERVICES MCHC 33.3 31.6 - 35.[address] [facility] LABORATORY g/dL SERVICES RDW-SD 42.5 39.0 - 49.[address] [facility] LABORATORY SERVICES RDW-CV 12.1 12.0 - 15.5 % [facility] LABORATORY SERVICES PLT 278 166 - [address] [facility] LABORATORY 10*3/L SERVICES MPV 10.8 9.5 - 12.[address] [facility] LABORATORY SERVICES NRBC/100 WBC 0.0 0.0 - 10.0 /[address] [facility] LABORATORY WBCs SERVICES NRBC x10^3 <0.01 10*3/L [facility] GRAN MAT (NEUT) % 82.9 % [facility] IMM GRAN % 0.40 % [facility] LYMPH % 7.7 % [facility] MONO % 7.4 % [facility] EOS % 1.3 % [facility] BASO % 0.3 % [facility] GRAN MAT x10^3(ANC) 12.33 (H) 1.88 - 7.09 [facility] 10*3/uL SERVICES IMM GRAN x10^3 0.06 0.00 - 0.06 [facility] 10*3/uL SERVICES LYMPH x10^3 1.15 (L) 1.32 - 3.29 [facility] 10*3/uL SERVICES MONO x10^3 1.10 (H) 0.33 - 0.92 [facility] 10*3/uL SERVICES EOS x10^3 0.20 0.03 - 0.39 [facility] 10*3/uL SERVICES BASO x10^3 0.04 0.01 - 0.07 [facility] 10*3/uL SERVICES Specimen Blood - HAND, RIGHT Performing Organization Address City/State/Zipcode Phone Number [facility] LABORATORY SERVICES CLIA: [id number] [place] [address] [place] [address] Blvd XR CHEST 1 VW (01/07/2020 9:55 AM CDT) Specimen Impressions Performed At Impression: Unchanged opacity in the left midlung zone which may PACS/VR/DOSE represent pneumonia. Narrative Performed At Exam: XR CHEST 1 VW 01/07/2020 9:50 AM PACS/VR/DOSE Clinical History: cough Comparison: Radiograph of 12/30/2019 Technique: frontal view of the chest Findings: Mild pulmonary congestion. Previously noted opacity i n the left lower lung zone is unchanged. No new consolidation. No pleural effusion. No pneumothorax. The cardiomediastinal silhouette appears unchanged. No acute osseous abno rmality. Procedure Note [facility], Radiant Results Inft User - 2019 2:55 AM CDT Exam: XR CHEST 1 VW 01/07/2020 9:50 AM Clinical History: cough Comparison: Radiograph of 12/30/2019 Technique: frontal view of the chest Findings: Mild pulmonary congestion. Previously n oted opacity in the left lower lung zone is unchanged. No new consolidation. No pleural effusion. No pneumothorax. T he cardiomediastinal silhouette appears unchanged. No acute osseous abno rmality. IMPRESSION Impression: Unchanged opacity in the lef t midlung zone which may represent pneumonia. Performing Organization Address City/State/Zipcode Phone Number PACS/VR/DOSE BASIC METABOLIC PANEL (NA, K, CL, CO2, GLUCOSE, BUN, CREATININE, CA) (01/07/2020 4:38 AM CDT) Pathologist Sig nature NA 140 135 - [address] [facility] LABORATORY mmol/L SERVICES K 4.5 3.5 - 5.[address] [facility] LABORATORY mmol/L SERVICES CL 107 98 - 108 mmol/L [facility] LABORATORY SERVICES CO2 TOTAL 28 23 - 31 mmol/L [facility] LABORATORY SERVICES AGAP 5 2 - [address] [facility] LABORATORY SERVICES BUN 34 (H) 7 - 23 mg/dL [facility] LABORATORY SERVICES GLUCOSE 113 (H) 70 - 110 mg/dL [facility] LABORATORY SERVICES CREATININE 0.70 0.50 - 1.[address] [facility] LABORATORY mg/dL SERVICES CALCIUM 9.7 8.6 - 10.[address] [facility] LABORATORY mg/dL SERVICES eGFR Calculation 85.9 mL/min/1.73m2 [facility] LABORATORY (Non- SERVICES Portuguese) eGFR Calculation 104.2 mL/min/1.73m2 [facility] LABORATORY () SERVICES Specimen Blood - ARM, RIGHT Narrative Performed At [employer] of Glomerular Filtration Rate (GFR) and St aging [facility] LABORATORY SERVICES of Kidney Disease* + + +------- ------ + | GFR (mL/min/1.73 m2) | With Kidney Damage | Wi thout Kidney Damage + + +------- ------ + | >90 | Stage one | Normal + + +------- ------ + | 60-89 | Stage two | Decreased GFR + + +------- ------ + | 30-59 | Stage three | Stage three + + +------- ------ + | 15-29 | Stage four | Stage four + + +------- ------ + | <15 (or dialysis) | Stage five | Stage five + + +------- ------ + *Each stage assumes the associated GFR level has been in effect for at least three months. Stages 1 to 5, wit h or without kidney disease, indicate chronic kidney disease. Notes: Determination of stages one and two (with eGFR >59mL/min/1.73 m2) requires estimation of kidney damag e for at least three months as defined by structural or func tional abnormalities of the kidney, manifested by either: Pathological abnormalities or Markers of kidney damage (including abnormalities in the composition of the blo od or urine or abnormalities in imaging tests) . Performing Organization Address City/State/Zipcode Phone Number [facility] LABORATORY SERVICES CLIA: [id number] [place] [address] [place] [address] CBC WITHOUT DIFF (01/07/2020 4:38 AM CDT) Pathologist Sig nature WBC 15.31 (H) 4.30 - 11.[address] [facility] LABORATORY 10*3/L SERVICES RBC 4.32 3.93 - 5.[address] [facility] LABORATORY 10*6/L SERVICES HGB 13.4 11.6 - 15.0 g/dL [facility] LABORATORY SERVICES HCT 40.7 35.7 - 45.2 % [facility] LABORATORY SERVICES MCH 31.0 25.9 - 32.[address] [facility] LABORATORY SERVICES MCV 94.2 80.6 - 95.[address] [facility] LABORATORY SERVICES MCHC 32.9 31.6 - 35.1 g/dL [facility] LABORATORY SERVICES PLT 282 166 - 358 10*3/L [facility] LABORATORY SERVICES MPV 10.5 9.5 - 12.[address] [facility] LABORATORY SERVICES RDW-CV 12.2 12.0 - 15.5 % [facility] LABORATORY SERVICES RDW-SD 42.5 39.0 - 49.[address] [facility] LABORATORY SERVICES NRBC x10^3 <0.01 10*3/L [facility] LABORATORY SERVICES NRBC/100 WBC 0.0 0.0 - 10.0 /[address] [facility] LABORATORY WBCs SERVICES IPF % [facility] LABORATORY SERVICES Specimen Blood - ARM, RIGHT Performing Organization Address [facility]/[employer] Phone Number [facility] LABORATORY SERVICES CLIA: [id number] [place] [address] [place] [address] URINALYSIS (01/05/2020 6:45 PM CDT) APPEARANCE Cloudy (A) Clear [facility] LABORATORY SERVICES COLOR Yellow Yellow [facility] LABORATORY SERVICES PH 7.0 4.8 - 8.[address] [facility] LABORATORY SERVICES SP GRAVITY 1.012 1.003 - 1.[address] [facility] LABORATORY SERVICES GLU U QUAL Normal Normal [facility] LABORATORY SERVICES BLOOD NegativeComment: Negative [facility] LABORATORY Interference from SERVICES ascorbic acid may cause false negative results. KETONES Negative Negative [facility] LABORATORY SERVICES PROTEIN Negative Negative [facility] LABORAT[facility] SERVICES UROBILIN Normal Normal [facility] LABORATORY SERVICES BILIRUBIN Negative Negative [facility] LABORATORY SERVICES NITRITE Negative Negative [facility] LABORATORY SERVICES LEUK LOGAN Negative Negative [facility] LABORATORY SERVICES RBC/HPF 7 (H) 0 - [address] [facility] LABORATORY SERVICES WBC/HPF 2 0 - [address] [facility] LAB[facility]ATORY SERVICES BACTERIA Negative Negative [facility]OR[facility]ORY SERVICES SQ EPITH <1 <=[address] [facility] LABORATORY SERVICES ASCORBIC ACID 40 mg/dL [facility] LABORATORY SERVICES Specimen Urine - URINE, CLEAN CATCH Performing Organization Address [facility]/[employer] Phone Number [facility] LABORATORY SERVICES CLIA: [id number] [place] [address] [place] [address] BASIC METABOLIC PANEL (NA, K, CL, CO2, GLUCOSE, BUN, CREATININE, CA) (01/05/2020 8:56 AM CDT) NA 145 135 - [address] [facility] LAB[facility] mmol/L SERVICES K 4.7Comment: 3.5 - 5.[address] [facility] LABORATORY Slight hemolysis mmol/L SERVICES CL 110 (H) 98 - [address] [facility] mmol/L SERVICES CO2 TOTAL 28 23 - [address] [facility] mmol/L SERVICES AGAP 7 2 - [address] [facility] SERVICES BUN 32 (H)Comment: 7 - 23 mg/dL [facility] Slight hemolysis SERVICES GLUCOSE 103 70 - [address] [facility] mg/dL SERVICES CREATININE 0.77 0.50 - 1.04 [facility] mg/dL SERVICES CALCIUM 9.9 8.6 - 10.6 [facility] mg/dL SERVICES eGFR Calculation 77.0 mL/min/1.73m2 [facility] LABORATORY (Non- SERVICES Portuguese) eGFR Calculation 93.3 mL/min/1.73m2 [facility] LABORATORY () SERVICES Specimen Blood - ARM, RIGHT Narrative Performed At [employer] of Glomerular Filtration Rate (GFR) and St aging [facility] LABORATORY SERVICES of Kidney Disease* + + +------- ------ + | GFR (mL/min/1.73 m2) | With Kidney Damage | Wi thout Kidney Damage + + +------- ------ + | >90 | Stage one | Normal + + +------- ------ + | 60-89 | Stage two | Decreased GFR + + +------- ------ + | 30-59 | Stage three | Stage three + + +------- ------ + | 15-29 | Stage four | Stage four + + +------- ------ + | <15 (or dialysis) | Stage five | Stage five + + +------- ------ + *Each stage assumes the associated GFR level has been in effect for at least three months. Stages 1 to 5, wit h or without kidney disease, indicate chronic kidney disease. Notes: Determination of stages one and two (with eGFR >59mL/min/1.73 m2) requires estimation of kidney damag e for at least three months as defined by structural or func tional abnormalities of the kidney, manifested by either: Pathological abnormalities or Markers of kidney damage (including abnormalities in the composition of the blo od or urine or abnormalities in imaging tests) . Performing Organization Address City/State/Zipcode Phone Number [facility] LABORATORY SERVICES CLIA: [id number] [place], [place] [id number] [address] [place] [address] CBC WITHOUT DIFF (01/05/2020 8:56 AM CDT) Pathologist [facility] WBC 14.03 (H) 4.30 - 11.[address] [facility] LABORATORY 10*3/L SERVICES RBC 4.75 3.93 - 5.[address] [facility]ORY 10*6/L SERVICES HGB 15.0 11.6 - 15.0 g/dL [facility] LABORAT[facility] SERVICES HCT 44.9 35.7 - 45.2 % [facility] LABORATORY SERVICES MCH 31.6 25.9 - 32.[address] [facility] LABORATORY SERVICES MCV 94.5 80.6 - 95.[address] [facility] LABORATORY SERVICES MCHC 33.4 31.6 - 35.1 g/dL [facility] LABORATORY SERVICES PLT 312 166 - 358 10*3/L [facility] LABORATORY SERVICES MPV 10.5 9.5 - 12.[address] [facility] LABORATORY SERVICES RDW-CV 12.3 12.0 - 15.5 % [facility] LABORATORY SERVICES RDW-SD 42.5 39.0 - 49.9 [facility] LABORATORY SERVICES NRBC x10^3 <0.01 10*3/L [facility] LABORATORY SERVICES NRBC/100 WBC 0.0 0.0 - 10.0 /[address] [facility] LABORATORY WBCs SERVICES IPF % [facility]AT[facility] SERVICES Specimen Blood - ARM, RIGHT Performing Organization Address City/State/Zipcode Phone Number [facility] LAB[facility]ATORY SERVICES CLIA: [id number] [place] [address] [place] [address] MOD BARIUM SWALLOW, (COOK) (01/03/2020 11:00 AM CDT) Specimen Impressions Performed At PACS/VR/DOSE 1. Episodes of both laryngeal penetrat ion and aspiration observed. 2. Please see separate Speech Patholog y report for recommendations and additional findings. Preliminary Report Dictated by Resident: Ángela Foreman MD., have reviewed this study and agree with the above report. Narrative Performed At [place] MODIFIED BARIUM SWALLOW PACS/VR/DOSE HISTORY: 59 years-old; Female; dysphagia TECHNIQUE: A video swallowing exam with fluoroscopy was performed in conjunction with Speech Pathology who administered mul tiple consistencies of barium. Fluoroscopy was performed und er the supervision of a radiologist. COMPARISON: None FINDINGS: Episodes of both laryngeal penetration a nd aspiration were observed. Procedure Note [facility], Radiant Results Inft User - 2019 9:57 AM CDT [place] MODIFIED BARIUM SWALLOW HISTORY: 59 years-old; Female; dysphagia TECHNIQUE: A video swallowing exam with fluoroscopy was performed in conjunction with Speech Pathology who ad ministered multiple consistencies of barium. Fluoroscopy was performed und er the supervision of a radiologist. COMPARISON: None FINDINGS: Episodes of both laryngeal penetration a nd aspiration were observed. IMPRESSION 1. Episodes of both laryngeal penetrati on and aspiration observed. 2. Please see separate Speech Pathology report for recommendations and additional findings. Preliminary Report Dictated by Resident: Ángela Foreman MD., have reviewed this study and agree with the above report. Performing Organization Address City/State/Zipcode Phone Number PACS/VR/DOSE MAGNESIUM (01/01/2020 4:26 AM CDT) Pathologist Sig nature MAGNESIUM 2.0 1.7 - 2.4 mg/dL [facility] Specimen Blood - ARM, RIGHT Performing Organization Address City/State/Zipcode Phone Number [facility] SERVICES CLIA: [id number] [place] [address] [place] [address] CBC WITH DIFF (01/01/2020 4:26 AM CDT) Pathologist Sig nature WBC 8.09 4.30 - 11.10 [facility] 10*3/L SERVICES RBC 4.16 3.93 - 5.25 [facility] 10*6/L SERVICES HGB 13.0 11.6 - 15.0 [facility] g/dL SERVICES HCT 39.8 35.7 - 45.2 % [facility] MCV 95.7 (H) 80.6 - 95.5 fL [facility] MCH 31.3 25.9 - 32.8 pg [facility] MCHC 32.7 31.6 - 35.1 [facility] g/dL SERVICES RDW-SD 41.7 39.0 - 49.9 fL [facility] RDW-CV 11.9 (L) 12.0 - 15.5 % [facility] PLT 251 166 - 358 [facility] 10*3/L SERVICES MPV 11.0 9.5 - 12.9 fL [facility] SERVICES NRBC/100 WBC 0.0 0.0 - 10.0 /100 [facility] WBCs SERVICES NRBC x10^3 <0.01 10*3/L [facility] GRAN MAT (NEUT) % 66.5 % [facility] IMM GRAN % 0.40 % [facility] LYMPH % 20.9 % [facility] MONO % 10.0 % [facility] EOS % 1.7 % [facility] BASO % 0.5 % [facility] GRAN MAT x10^3(ANC) 5.38 1.88 - 7.09 [facility] 10*3/uL SERVICES IMM GRAN x10^3 0.03 0.00 - 0.06 [facility] 10*3/uL SERVICES LYMPH x10^3 1.69 1.32 - 3.29 [facility] 10*3/uL SERVICES MONO x10^3 0.81 0.33 - 0.92 [facility] 10*3/uL SERVICES EOS x10^3 0.14 0.03 - 0.[address] [facility] 10*3/uL SERVICES BASO x10^3 0.04 0.01 - 0.[address] [facility] 10*3/uL SERVICES Specimen Blood - ARM, RIGHT Performing Organization Address City/State/Zipcode Phone Number [facility] SERVICES CLIA: [id number] [place], [place] [id number] [address] [place] [address] BASIC METABOLIC PANEL (NA, K, CL, CO2, GLUCOSE, BUN, CREATININE, CA) (01/01/2020 4:26 AM CDT) [facility] NA 138 135 - [address] [facility] mmol/L SERVICES K 3.8 3.5 - 5.[address] [facility] mmol/L SERVICES CL 106 98 - 108 mmol/L [facility] SERVICES CO2 TOTAL 26 23 - 31 mmol/L [facility] SERVICES AGAP 6 2 - [address] [facility] SERVICES BUN 19 7 - 23 mg/dL [facility] SERVICES GLUCOSE 121 (H) 70 - 110 mg/dL [facility] SERVICES CREATININE 0.75 0.50 - 1.[address] [facility] mg/dL SERVICES CALCIUM 9.1 8.6 - 10.[address] [facility] mg/dL SERVICES eGFR Calculation 79.4 mL/min/1.73m2 [facility] (Non- SERVICES Portuguese) eGFR Calculation 96.2 mL/min/1.73m2 [facility] () SERVICES Specimen Blood - ARM, RIGHT Narrative Performed At [employer] of Glomerular Filtration Rate (GFR) and St aging [facility] SERVICES of Kidney Disease* + + +------- ------ + | GFR (mL/min/1.73 m2) | With Kidney Damage | Lisa pinedo Kidney Damage + + +------- ------ + | >90 | Stage one | Normal + + +------- ------ + | 60-89 | Stage two | Decreased GFR + + +------- ------ + | 30-59 | Stage three | Stage three + + +------- ------ + | 15-29 | Stage four | Stage four + + +------- ------ + | <15 (or dialysis) | Stage five | Stage five + + +------- ------ + *Each stage assumes the associated GFR level has been in effect for at least three months. Stages 1 to 5, wit h or without kidney disease, indicate chronic kidney disease. Notes: Determination of stages one and two (with eGFR >59mL/min/1.73 m2) requires estimation of kidney damag e for at least three months as defined by structural or func tional abnormalities of the kidney, manifested by either: Pathological abnormalities or Markers of kidney damage (including abnormalities in the composition of the blo od or urine or abnormalities in imaging tests) . Performing Organization Address City/State/Zipcode Phone Number [facility] SERVICES CLIA: [id number] [place] [address] [place] [address] MAGNESIUM (12/31/2019 4:11 AM CDT) Pathologist Sig nature MAGNESIUM 1.8 1.7 - 2.4 mg/dL [facility] SERVICES Specimen Blood - ARM, RIGHT Performing Organization Address [facility]/Zipcode Phone Number [facility] SERVICES CLIA: [id number] [place] [address] [place] [address] CBC WITH DIFF (12/31/2019 4:11 AM CDT) Pathologist Sig nature WBC 7.90 4.30 - 11.10 [facility] 10*3/L SERVICES RBC 4.17 3.93 - 5.25 [facility] 10*6/L SERVICES HGB 13.1 11.6 - 15.0 [facility] g/dL SERVICES HCT 39.8 35.7 - 45.2 % [facility] MCV 95.4 80.6 - 95.5 fL [facility] MCH 31.4 25.9 - 32.8 pg [facility] MCHC 32.9 31.6 - 35.1 [facility] g/dL SERVICES RDW-SD 41.3 39.0 - 49.9 fL [facility] RDW-CV 11.9 (L) 12.0 - 15.5 % [facility] PLT 231 166 - 358 [facility] 10*3/L SERVICES MPV 11.0 9.5 - 12.9 fL [facility] NRBC/100 WBC 0.0 0.0 - 10.0 /100 [facility] WBCs SERVICES NRBC x10^3 <0.01 10*3/L [facility] GRAN MAT (NEUT) % 71.1 % [facility] IMM GRAN % 0.40 % [facility] LYMPH % 19.5 % [facility] MONO % 7.7 % [facility] EOS % 1.0 % [facility] BASO % 0.3 % [facility] GRAN MAT x10^3(ANC) 5.62 1.88 - 7.[address] [facility] 10*3/uL SERVICES IMM GRAN x10^3 0.03 0.00 - 0.[address] [facility] 10*3/uL SERVICES LYMPH x10^3 1.54 1.32 - 3.[address] [facility] 10*3/uL SERVICES MONO x10^3 0.61 0.33 - [address] [facility] 10*3/uL SERVICES EOS x10^3 0.08 0.03 - 0.[address] [facility] 10*3/uL SERVICES BASO x10^3 <0.03 0.01 - 0.[address] [facility] 10*3/uL SERVICES Specimen Blood - ARM, RIGHT Performing Organization Address City/State/Zipcode Phone Number [facility] SERVICES CLIA: [id number] [place] [address] [place] [address] BASIC METABOLIC PANEL (NA, K, CL, CO2, GLUCOSE, BUN, CREATININE, CA) (12/31/2019 4:11 AM CDT) Pathologist [facility] [place] NA 136 135 - [address] [facility] mmol/L SERVICES K 4.0 3.5 - 5.[address] [facility] mmol/L SERVICES CL 108 98 - 108 mmol/L [facility] SERVICES CO2 TOTAL 22 (L) 23 - 31 mmol/L [facility] SERVICES AGAP 6 2 - [address] [facility] SERVICES BUN 16 7 - 23 mg/dL [facility] SERVICES GLUCOSE 89 70 - 110 mg/dL [facility] SERVICES CREATININE 0.67 0.50 - 1.[address] [facility] mg/dL SERVICES CALCIUM 8.3 (L) 8.6 - 10.[address] [facility] mg/dL SERVICES eGFR Calculation 90.4 mL/min/1.73m2 [facility] (Non- SERVICES Portuguese) eGFR Calculation 109.6 mL/min/1.73m2 [facility] () SERVICES Specimen Blood - ARM, RIGHT Narrative Performed At [employer] of Glomerular Filtration Rate (GFR) and St aging [facility] SERVICES of Kidney Disease* + + +------- ------ + | GFR (mL/min/1.73 m2) | With Kidney Damage | Wi thout Kidney Damage + + +------- ------ + | >90 | Stage one | Normal + + +------- ------ + | 60-89 | Stage two | Decreased GFR + + +------- ------ + | 30-59 | Stage three | Stage three + + +------- ------ + | 15-29 | Stage four | Stage four + + +------- ------ + | <15 (or dialysis) | Stage five | Stage five + + +------- ------ + *Each stage assumes the associated GFR level has been in effect for at least three months. Stages 1 to 5, wit h or without kidney disease, indicate chronic kidney disease. Notes: Determination of stages one and two (with eGFR >59mL/min/1.73 m2) requires estimation of kidney damag e for at least three months as defined by structural or func tional abnormalities of the kidney, manifested by either: Pathological abnormalities or Markers of kidney damage (including abnormalities in the composition of the blo od or urine or abnormalities in imaging tests) . Performing Organization Address City/State/Zipcode Phone Number [facility] CLIA: [id number] [place] [address] [place] [address] IR G-TUBE PLACEMENT PERCUTANEOUS (12/30/2019 7:10 PM CDT) Specimen Impressions Performed At Successful placement of a 16 Venezuelan cyndi rostomy catheter with PACS/VR/DOSE absorbable gastropexy. I, as teaching physician, was present du ring the entire procedure and/or during the oleary components. Preliminary Report Dictated by Resident: Renan Marcial I, Issa Verma MD., have reviewed this study an d agree with the above report. Narrative Performed At EXAMINATION: PERCUTANEOUS GASTROSTOMY CA THETER PLACEMENT PACS/VR/DOSE HISTORY/INDICATION: Dysphagia ATTENDING PRESENCE: As the attending r adiologist, I was present in the room during the entire procedure. Resident: Dr. Moy Marcial. Resident: Dr. Talia Briseno MD. David Baptiste Ch oi, DO SEDATION: Moderate sedation was administ ered under the attending physician's direction and continuous mon itoring by a trained nurse specialist who was independent from thos e actually performing the procedure. Total monitored sedation time is documented in Epic. RADIATION DOSE: 64.8 mGy. MEDICATIONS: 1mg IV glucagon was administered. IV Anti biotic: Cefazolin 1g IV once TECHNIQUE: The risks, benefits and alternatives were d iscussed and informed consent was obtained. Prior to beginning the procedure , Healy Protocol was performed to confirm the patient's identity and th e planned procedure. Maximum sterile barriers including cap, mask, hand hyg iene, sterile gloves, sterile gown, large sterile drape and cu taneous antisepsis were used. The skin over the stomach was sterilely prepped, draped and infiltrated with 1 percent lidocaine and 1 mg of intravenous gluca nain was administered. The existing NG tube was used to inject air to distend the stomach. Fluoroscopy was used to determine a safe tract to the stomach. Due to overlapping bowel, a Marilu CT was performed with multiplanar 2-D reformations made under a separate works tation under direct physician supervision. The Marilu CT images demonstrated a safe percutaneous access window for gastrostomy tube placement an d the bowel loops seen on planar fluoroscopy was located posterior to the stomach. The stomach was then accessed under fluoroscopic darryl nce, and 3 absorbable gastropexies were placed. The stomach was then accessed with a sheathed needle. The tract was dilated over a guidewire to 22 Venezuelan, and a 16 Venezuelan gastrostomy tube was advanced into the stomach. The catheter was secured to the skin using the bumper mechanism after inflating the G-tube balloon wi th normal saline and contrast admixture. ESTIMATED BLOOD LOSS: Minimal. CONDITION: Stable. DISCHARGED TO: Recovery and then to [facility]. FINDINGS: Final fluoroscopic images demo nstrate the gastrostomy catheter with its tip in the body of the stomach. No complicati ons are identified. Procedure Note [facility], Radiant Results Inft User - 2019 11:15 AM CDT EXAMINATION: PERCUTANEOUS GASTROSTOMY CATHETER PLACEMENT HISTORY/INDICATION: Dysphagia ATTENDING PRESENCE: As the attending ra diologistCarlyn was present in the room during the entire procedure. Resid ent: Dr. Renan Marcial. Resident: Dr. Talia Briseno MD. David Baptiste Ch oi, DO SEDATION: Moderate sedation was administ ered under the attending physician's direction and continuous mon itoring by a trained nurse specialist who was independent from thos e actually performing the procedure. Total monitored sedation time is documented in Epic. RADIATION DOSE: 64.8 mGy. MEDICATIONS: 1mg IV glucagon was adminis tered. IV Antibiotic: Cefazolin 1g IV once TECHNIQUE: The risks, benefits and alter natives were discussed and informed consent was obtained. Prior to beginning the procedure, Healy Protocol was performed to confirm the patient's i dentity and the planned procedure. Maximum sterile barriers including cap, mask, hand hygiene, sterile gloves, sterile gown, large sterile drape and cu taneous antisepsis were used. The skin over the stomach was sterilely prepped, draped and infiltrated with 1 percent lidocaine and 1 mg of int ravenous glucagon was administered. The existing NG tube was used to inject air to distend the stomach. Fluoroscopy was used to determine a safe tract to the stomach. Due to overlapping bowel, a Marilu CT was performed with multiplanar 2-D reformations made under a separate works tation under direct physician supervision. The Marilu CT images demonst rated a safe percutaneous access window for gastrostomy tube placement an d the bowel loops seen on planar fluoroscopy was located posterior to the stomach. The stomach was then accessed under fluo roscopic guidance, and 3 absorbable gastropexies were placed. The stomach was then accessed with a she athed needle. The tract was dilated over a guidewire to 22 Venezuelan, and a 16 Venezuelan gastrostomy tube was advanced into the stomach. The catheter was secured to the skin using the bumper mechanism after inflating the G-t ube balloon with normal saline and contrast admixture. ESTIMATED BLOOD LOSS: Minimal. CONDITION: Stable. DISCHARGED TO: Recovery and then to [facility] unit. FINDINGS: Final fluoroscopic images demo nstrate the gastrostomy catheter with its tip in the body of the stomach. No complications are identified. IMPRESSION Successful placement of a 16 Venezuelan cyndi rostomy catheter with absorbable gastropexy. I, as teaching physician, was present du ring the entire procedure and/or during the oleary components. Preliminary Report Dictated by Resident: Renan Marcial I, Issa Verma MD., have reviewed this study and agree with the above report. Performing Organization Address City/State/Zipcode Phone Number PACS/VR/DOSE XR CHEST 1 VW (12/30/2019 7:07 AM CDT) Specimen Impressions Performed At PACS/VR/DOSE New faint left lower lung opacity may re present developing infectious etiology. Preliminary Report Dictated by Resident: Wai Amin I, Isaiah Valentine MD., have reviewed this study and agree with the above report. Narrative Performed At EXAM: XR CHEST 1 VW 12/30/2019 6:40 AM PACS/VR/DOSE HISTORY: 59 years-old Female with cough TECHNIQUE: Portable AP view of the chest . COMPARISON: CXR 12/29/2019 FINDINGS: Lines and tubes: Enteric tube is seen co ursing subdiaphragmatically with tip outside the [id number]-[id number]. Cardiomediastinal: The cardiomediastinal silhouette is normal. Lungs and pleura: The hilar vasculature is more prominent on the study, possibly due to technique. A new faint o pacity is seen in the left lower lung field, suggestive of a focal underlying consolida tion. Redemonstration of emphysematous changes. Musculoskeletal: No acute skeletal abnor mality. Similar appearance of widened right acromioclavicular joint. Procedure Note [facility], Radiant Results Inft User - 2019 8:35 AM CDT EXAM: XR CHEST 1 VW 12/30/2019 6:40 AM HISTORY: 59 years-old Female with cough TECHNIQUE: Portable AP view of the chest . COMPARISON: CXR 12/29/2019 FINDINGS: Lines and tubes: Enteric tube is seen co ursing subdiaphragmatically with tip outside the [id number]-vu-[id number]. Cardiomediastinal: The cardiomediastinal silhouette is normal. Lungs and pleura: The hilar vasculature is more prominent on the study, possibly due to technique. A new faint o pacity is seen in the left lower lung field, suggestive of a focal underl muriel consolidation. Redemonstration of emphysematous changes. Musculoskeletal: No acute skeletal abnor mality. Similar appearance of widened right acromioclavicular joint. IMPRESSION New faint left lower lung opacity may re present developing infectious etiology. Preliminary Report Dictated by Resident: Wai Amin I, Isaiah Valentine MD., have reviewed th is study and agree with the above report. Performing Organization Address City/State/Zipcode Phone Number PACS/VR/DOSE MAGNESIUM (12/30/2019 3:24 AM CDT) Pathologist Sig nature MAGNESIUM 1.9 1.7 - 2.4 mg/dL [facility] Specimen Blood - ARM, RIGHT Performing Organization Address City/State/Zipcode Phone Number [facility] CLIA: [id number] [place], [place] [address] [address] [place] [address] CBC WITH DIFF (12/30/2019 3:24 AM CDT) Pathologist Sig nature WBC 9.56 4.30 - 11.10 [facility] 10*3/L SERVICES RBC 4.21 3.93 - 5.25 [facility] 10*6/L SERVICES HGB 13.3 11.6 - 15.0 [facility] g/dL SERVICES HCT 40.4 35.7 - 45.2 % [facility] MCV 96.0 (H) 80.6 - 95.5 fL [facility] MCH 31.6 25.9 - 32.8 pg [facility] MCHC 32.9 31.6 - 35.1 [facility] g/dL SERVICES RDW-SD 42.8 39.0 - 49.9 fL [facility] RDW-CV 12.2 12.0 - 15.5 % [facility] PLT 210 166 - 358 [facility] 10*3/L SERVICES MPV 11.3 9.5 - 12.9 fL [facility] NRBC/100 WBC 0.0 0.0 - 10.0 /100 [facility] WBCs SERVICES NRBC x10^3 <0.01 10*3/L [facility] GRAN MAT (NEUT) % 69.8 % [facility] IMM GRAN % 0.30 % [facility] LYMPH % 17.1 % [facility] MONO % 10.4 % [facility] EOS % 2.1 % [facility] BASO % 0.3 % [facility] GRAN MAT x10^3(ANC) 6.68 1.88 - 7.09 [facility] 10*3/uL SERVICES IMM GRAN x10^3 0.03 0.00 - 0.06 [facility] 10*3/uL SERVICES LYMPH x10^3 1.63 1.32 - 3.29 [facility] 10*3/uL SERVICES MONO x10^3 0.99 (H) 0.33 - 0.92 [facility] 10*3/uL SERVICES EOS x10^3 0.20 0.03 - 0.39 [facility] 10*3/uL SERVICES BASO x10^3 0.03 0.01 - 0.07 [facility] 10*3/uL SERVICES Specimen Blood - ARM, RIGHT Performing Organization Address City/State/Zipcode Phone Number [facility] CLIA: [id number] [facility] [place] [id number] [address] [place] [address] BASIC METABOLIC PANEL (NA, K, CL, CO2, GLUCOSE, BUN, CREATININE, CA) (12/30/2019 3:24 AM CDT) [facility] NA 141 135 - 145 mmol/L [facility] K 4.0 3.5 - 5.0 mmol/L [facility] CL 106 98 - 108 mmol/L [facility] CO2 TOTAL 27 23 - 31 mmol/L [facility] AGAP 8 2 - [address] [facility] BUN 18 7 - 23 mg/dL [facility] GLUCOSE 91 70 - 110 mg/dL [facility] CREATININE 0.69 0.50 - 1.[address] [facility] mg/dL SERVICES CALCIUM 8.6 8.6 - 10.6 mg/dL [facility] eGFR Calculation 87.4 mL/min/1.73m2 [facility] (Non-) SERVICES eGFR Calculation 105.9 mL/min/1.73m2 [facility] () SERVICES Specimen Blood - ARM, RIGHT Narrative Performed At Association of Glomerular Filtration Rate (GFR) and St aging [facility] of Kidney Disease* + + +------- ------ + | GFR (mL/min/1.73 m2) | With Kidney Damage | Wi thout Kidney Damage + + +------- ------ + | >90 | Stage one | Normal + + +------- ------ + | 60-89 | Stage two | Decreased GFR + + +------- ------ + | 30-59 | Stage three | Stage three + + +------- ------ + | 15-29 | Stage four | Stage four + + +------- ------ + | <15 (or dialysis) | Stage five | Stage five + + +------- ------ + *Each stage assumes the associated GFR level has been in effect for at least three months. Stages 1 to 5, wit h or without kidney disease, indicate chronic kidney disease. Notes: Determination of stages one and two (with eGFR >59mL/min/1.73 m2) requires estimation of kidney damag e for at least three months as defined by structural or func tional abnormalities of the kidney, manifested by either: Pathological abnormalities or Markers of kidney damage (including abnormalities in the composition of the blo od or urine or abnormalities in imaging tests) . Performing Organization Address City/State/Zipcode Phone Number [facility] CLIA: [id number] [place] [id number] [place] [address] XR KUB (12/29/2019 3:29 PM CDT) Specimen Impressions Performed At PACS/VR/DOSE Appropriate positioning enteric tube. 2. Nonobstructive bowel gas pattern. Preliminary Report Dictated by Resident: Martha Bartlett MD., have reviewed this study and agree with the above report. Narrative Performed At EXAM: XR KUB PACS/VR/DOSE HISTORY: Dobbhoff placement COMPARISON: Abdomen radiograph 0 FINDINGS: The weighted enteric tube tip projects o edward the gastric body and pointed inferiorly. The bowel gas pattern is unremarkable. N o pathologically dilated bowel loops. Vascular calcifications are noted. No acute bony abnormality is present. Procedure Note [facility], Radiant Results Inft User - 2019 6:26 PM CDT EXAM: XR KUB HISTORY: Dobbhoff placement COMPARISON: Abdomen radiograph 0 FINDINGS: The weighted enteric tube tip projects o edward the gastric body and pointed inferiorly. The bowel gas pattern is unremarkable. N o pathologically dilated bowel loops. Vascular calcifications are noted. No acute bony abnormality is present. IMPRESSION Appropriate positioning enteric tube. 2. Nonobstructive bowel gas pattern. Preliminary Report Dictated by Resident: Martha Bartlett MD., have review ed this study and agree with the above report. Performing Organization Address City/State/Zipcode Phone Number PACS/VR/DOSE XR CHEST 1 VW (12/29/2019 12:10 PM CDT) Specimen Impressions Performed At PACS/VR/DOSE No acute cardiopulmonary abnormality. Ch ronic emphysematous changes. Preliminary Report Dictated by Resident: Martin Rios MD., have reviewe d this study and agree with the above report. Narrative Performed At EXAM: XR CHEST 1 VW 12/29/2019 11:59 AM PACS/VR/DOSE HISTORY: 59 years-old Female with cough TECHNIQUE: Portable AP view of the chest . COMPARISON: CXR 12/24/2019 FINDINGS: Lines and tubes: Interval placement of e nteric tube coursing subdiaphragmatically with tip outside the jczgl-dg-cor w, likely within the stomach. Cardiomediastinal: The cardiomediastinal silhouette is unchanged. Lungs and pleura: Emphysematous changes more prominent at the lung apices are seen, similar to prior. No focal con solidation, pneumothorax, or pleural effusion is seen. Musculoskeletal: No acute skeletal abnor mality. Osteopenia. The right acromioclavicular joint space is widened , similar to prior Procedure Note [facility], Radiant Results Inft User - 2019 3:14 PM CDT EXAM: XR CHEST 1 VW 12/29/2019 11:59 AM HISTORY: 59 years-old Female with cough TECHNIQUE: Portable AP view of the chest . COMPARISON: CXR 12/24/2019 FINDINGS: Lines and tubes: Interval placement of e nteric tube coursing subdiaphragmatically with tip outside th e hsvpz-du-noue, likely within the stomach. Cardiomediastinal: The cardiomediastinal silhouette is unchanged. Lungs and pleura: Emphysematous changes more prominent at the lung apices are seen, similar to prior. No focal con solidation, pneumothorax, or pleural effusion is seen. Musculoskeletal: No acute skeletal abnor mality. Osteopenia. The right acromioclavicular joint space is widened , similar to prior IMPRESSION No acute cardiopulmonary abnormality. Ch ronic emphysematous changes. Preliminary Report Dictated by Resident: Martin Rios MD., have reviewed this study and agree with the above report. Performing Organization Address City/State/Zipcode Phone Number PACS/VR/DOSE AC PANEL 20 + LACTIC ACID (12/29/2019 11:51 AM CDT) Pathologist Sig nature PH 7.40 7.35 - 7.[address] [facility] PCO2 41 35 - [address] [facility] PO2 83 80 - [address] [facility] HCO3 25 22 - 26 mEq/L [facility] BE 0.8 -3.0 - 3.0 mEq/L [facility] THB 14.4 12.0 - 16.0 g/dL [facility] %O2HB 94.3 94.0 - 99.0 % [facility] %COHB ART 0.8 0.0 - 1.5 % [facility] %METHB ART 0.0 (L) 0.4 - 1.5 % [facility] VOL%O2 ART 19.1 15.0 - 23.0 % [facility] NA 136 135 - 145 mmol/L [facility] K+ 4.2 3.5 - 5.0 mmol/L [facility] AC CA IONZ 5.00 4.50 - 5.30 mg/dL [facility] S GLUCOSE 118 (H) 70 - 110 mg/dL [facility] LACTIC ACID 0.98 mmol/L [facility] Specimen Blood - ARTERIAL Performing Organization Address City/[facility]/Zipcode Phone Number [facility] CLIA: [id number] [place] [address] [place] [address] POCT GLUCOSE (AUTOMATED) (12/29/2019 11:37 AM CDT) Pathologist Sig nature POCT GLU 108 70 - 110 mg/dL [facility] Specimen Blood Performing Organization Address City/[facility]/[place] Phone Number [facility] CLIA: [id number] [place] [address] [place] [address] MAGNESIUM (12/29/2019 4:38 AM CDT) Pathologist Sig nature MAGNESIUM 1.8 1.7 - 2.4 mg/dL [facility] Specimen Blood - VENOUS Performing Organization Address City/[facility]/[place] Phone Number [facility] CLIA: [id number] [place] [address] [place] [address] CBC WITH DIFF (12/29/2019 4:38 AM CDT) Pathologist Sig nature WBC 11.06 4.30 - 11.[address] [facility] 10*3/L SERVICES RBC 4.48 3.93 - 5.[address] [facility] 10*6/L SERVICES HGB 13.8 11.6 - 15.[address] [facility] g/dL SERVICES HCT 41.7 35.7 - 45.2 % [facility] MCV 93.1 80.6 - 95.[address] [facility] MCH 30.8 25.9 - 32.[address] [facility] MCHC 33.1 31.6 - 35.[address] [facility] g/dL SERVICES RDW-SD 42.3 39.0 - 49.[address] [facility] RDW-CV 12.3 12.0 - 15.5 % [facility] PLT 218 166 - [address] [facility] 10*3/L SERVICES MPV 11.1 9.5 - 12.[address] [facility] NRBC/100 WBC 0.0 0.0 - 10.0 /[address] [facility] WBCs SERVICES NRBC x10^3 <0.01 10*3/L [facility] GRAN MAT (NEUT) % 78.0 % [facility] IMM GRAN % 0.20 % [facility] LYMPH % 10.3 % [facility] MONO % 10.7 % [facility] EOS % 0.5 % [facility] BASO % 0.3 % [facility] GRAN MAT x10^3(ANC) 8.63 (H) 1.88 - 7.[address] [facility] 10*3/uL SERVICES IMM GRAN x10^3 <0.03 0.00 - 0.[address] [facility] 10*3/uL SERVICES LYMPH x10^3 1.14 (L) 1.32 - 3.[address] [facility] 10*3/uL SERVICES MONO x10^3 1.18 (H) 0.33 - 0.92 [facility] 10*3/uL SERVICES EOS x10^3 0.06 0.03 - 0.39 [facility] 10*3/uL SERVICES BASO x10^3 0.03 0.01 - 0.[address] [facility] 10*3/uL SERVICES Specimen Blood - VENOUS Performing Organization Address City/State/Zipcode Phone Number [facility] CLIA: [id number] [place] [address] [place] [address] BASIC METABOLIC PANEL (NA, K, CL, CO2, GLUCOSE, BUN, CREATININE, CA) (12/29/2019 4:38 AM CDT) Pathologist Sig nature NA 135 135 - 145 mmol/L [facility] K 4.2 3.5 - 5.0 mmol/L [facility] CL 104 98 - 108 mmol/L [facility] CO2 TOTAL 26 23 - 31 mmol/L [facility] AGAP 5 2 - [address] [facility] BUN 16 7 - 23 mg/dL [facility] GLUCOSE 102 70 - 110 mg/dL [facility] CREATININE 0.60 0.50 - 1.[address] [facility] mg/dL SERVICES CALCIUM 9.2 8.6 - 10.6 mg/dL [facility] eGFR Calculation 102.7 mL/min/1.73m2 [facility] (Non-) SERVICES eGFR Calculation 124.4 mL/min/1.73m2 [facility] () SERVICES Specimen Blood - VENOUS Narrative Performed At [facility] of Glomerular Filtration Rate (GFR) and St aging [facility] of Kidney Disease* + + +------- ------ + | GFR (mL/min/1.73 m2) | With Kidney Damage | Wi thout Kidney Damage + + +------- ------ + | >90 | Stage one | Normal + + +------- ------ + | 60-89 | Stage two | Decreased GFR + + +------- ------ + | 30-59 | Stage three | Stage three + + +------- ------ + | 15-29 | Stage four | Stage four + + +------- ------ + | <15 (or dialysis) | Stage five | Stage five + + +------- ------ + *Each stage assumes the associated GFR level has been in effect for at least three months. Stages 1 to 5, wit h or without kidney disease, indicate chronic kidney disease. Notes: Determination of stages one and two (with eGFR >59mL/min/1.73 m2) requires estimation of kidney damag e for at least three months as defined by structural or func tional abnormalities of the kidney, manifested by either: Pathological abnormalities or Markers of kidney damage (including abnormalities in the composition of the blo od or urine or abnormalities in imaging tests) . Performing Organization Address City/State/Zipcode Phone Number [facility] CLIA: [id number] [place] [address] [place] [address] CBC WITH DIFF (12/28/2019 3:19 AM CDT) Pathologist [facility] WBC 8.06 4.30 - 11.[address] [facility] 10*3/L SERVICES RBC 4.29 3.93 - 5.[address] [facility] 10*6/L SERVICES HGB 13.4 11.6 - 15.[address] [facility] g/dL SERVICES HCT 40.5 35.7 - 45.2 % [facility] MCV 94.4 80.6 - 95.[address] [facility] MCH 31.2 25.9 - 32.[address] [facility] MCHC 33.1 31.6 - 35.1 [facility] g/dL SERVICES RDW-SD 43.0 39.0 - 49.9 fL [facility] RDW-CV 12.4 12.0 - 15.5 % [facility] PLT 186 166 - 358 [facility] 10*3/L SERVICES MPV 10.8 9.5 - 12.9 fL [facility] NRBC/100 WBC 0.0 0.0 - 10.0 /100 [facility] WBCs SERVICES NRBC x10^3 <0.01 10*3/L [facility] GRAN MAT (NEUT) % 74.1 % [facility] IMM GRAN % 0.40 % [facility] LYMPH % 14.8 % [facility] MONO % 9.6 % [facility] EOS % 0.7 % [facility] BASO % 0.4 % [facility] GRAN MAT x10^3(ANC) 5.98 1.88 - 7.09 [facility] 10*3/uL SERVICES IMM GRAN x10^3 0.03 0.00 - 0.06 [facility] 10*3/uL SERVICES LYMPH x10^3 1.19 (L) 1.32 - 3.29 [facility] 10*3/uL SERVICES MONO x10^3 0.77 0.33 - 0.92 [facility] 10*3/uL SERVICES EOS x10^3 0.06 0.03 - 0.39 [facility] 10*3/uL SERVICES BASO x10^3 0.03 0.01 - 0.07 [facility] 10*3/uL SERVICES Specimen Blood - LINE, VENOUS Performing Organization Address City/State/Zipcode Phone Number [facility] CLIA: [id number] [place], [place] [id number] [address] [place] [address] Blvd N-TERMINAL PRO-BNP (12/28/2019 2:37 AM CDT) Pathologist Sig nature NT-proBNP 254 (H) <=125 pg/mL [facility] Specimen Blood - LINE, VENOUS Narrative Performed At [facility] has been reported to cause a negative bias, int erpret [facility] results relative to patient's use of biotin. Performing Organization Address City/State/Zipcode Phone Number [facility] CLIA: [id number] [place], [place] [id number] [address] [place] [address] MAGNESIUM (12/28/2019 2:37 AM CDT) Pathologist Sig nature MAGNESIUM 1.9 1.7 - 2.4 mg/dL [facility] Specimen Blood - LINE, VENOUS Performing Organization Address City/State/Zipcode Phone Number [facility] CLIA: [id number] [place] [address] [place] [address] BASIC METABOLIC PANEL (NA, K, CL, CO2, GLUCOSE, BUN, CREATININE, CA) (12/28/2019 2:37 AM CDT) Pathologist Sig nature NA 139 135 - [address] [facility] mmol/L SERVICES K 3.1 (L) 3.5 - 5.[address] [facility] mmol/L SERVICES CL 113 (H) 98 - 108 mmol/L [facility] CO2 TOTAL 23 23 - 31 mmol/L [facility] AGAP 3 2 - [address] [facility] BUN 21 7 - 23 mg/dL [facility] GLUCOSE 107 70 - 110 mg/dL [facility] CREATININE 0.64 0.50 - 1.[address] [facility] mg/dL SERVICES CALCIUM 7.6 (L) 8.6 - 10.[address] [facility] mg/dL SERVICES eGFR Calculation 95.3 mL/min/1.73m2 [facility] (Non- SERVICES Portuguese) eGFR Calculation 115.5 mL/min/1.73m2 [facility] () SERVICES Specimen Blood - LINE, VENOUS Narrative Performed At [facility] Glomerular Filtration Rate (GFR) and St aging [facility] of Kidney Disease* + + +------- ------ + | GFR (mL/min/1.73 m2) | With Kidney Damage | [facility] Kidney Damage + + +------- ------ + | >90 | Stage one | Normal + + +------- ------ + | 60-89 | Stage two | Decreased GFR + + +------- ------ + | 30-59 | Stage three | Stage three + + +------- ------ + | 15-29 | Stage four | Stage four + + +------- ------ + | <15 (or dialysis) | Stage five | Stage five + + +------- ------ + *Each stage assumes the associated GFR level has been in effect for at least three months. Stages 1 to 5, wit h or without kidney disease, indicate chronic kidney disease. Notes: Determination of stages one and two (with eGFR >59mL/min/1.73 m2) requires estimation of kidney damag e for at least three months as defined by structural or func tional abnormalities of the kidney, manifested by either: Pathological abnormalities or Markers of kidney damage (including abnormalities in the composition of the blo od or urine or abnormalities in imaging tests) . Performing Organization Address City/State/Zipcode Phone Number [facility] CLIA: [id number] [place] [address] [place] [address] PROTHROMBIN TIME / INR (12/28/2019 2:37 AM CDT) PROTIME PATIENT 11.4 10.1 - 12.[address] [facility] Seconds SERVICES INR 1.0Comment: Normal [facility] INR <1.1; Warfarin SERVICES Therapeutic range 2.0 to 3.0 or 2.5 to 3.5, depending upon the indications. Specimen Blood - LINE, VENOUS Performing Organization Address [facility]/[employer] Phone Number [facility] CLIA: [id number] [place] [address] [place] [address] BASIC METABOLIC PANEL (NA, K, CL, CO2, GLUCOSE, BUN, CREATININE, CA) (12/27/2019 3:29 AM CDT) NA 137 135 - [address] [facility] mmol/L SERVICES K 3.8Comment: 3.5 - 5.[address] [facility] Slight hemolysis mmol/L SERVICES CL 106 98 - [address] [facility] mmol/L SERVICES CO2 TOTAL 23 23 - [address] [facility] mmol/L SERVICES AGAP 8 2 - [address] [facility] SERVICES BUN 18Comment: Slight 7 - 23 mg/dL [facility] hemolysis SERVICES GLUCOSE 113 (H) 70 - [address] [facility] mg/dL SERVICES CREATININE 0.69 0.50 - 1.[address] [facility] mg/dL SERVICES CALCIUM 9.2 8.6 - 10.[address] [facility] mg/dL SERVICES eGFR Calculation 87.4 mL/min/1.73m2 [facility] (Non- SERVICES Portuguese) eGFR Calculation 105.9 mL/min/1.73m2 [facility] () SERVICES Specimen Blood - ARM, RIGHT Narrative Performed At [facility] Glomerular Filtration Rate (GFR) and St aging [facility] of Kidney Disease* + + +------- ------ + | GFR (mL/min/1.73 m2) | With Kidney Damage | Wi [facility]out Kidney Damage + + +------- ------ + | >90 | Stage one | Normal + + +------- ------ + | 60-89 | Stage two | Decreased GFR + + +------- ------ + | 30-59 | Stage three | Stage three + + +------- ------ + | 15-29 | Stage four | Stage four + + +------- ------ + | <15 (or dialysis) | Stage five | Stage five + + +------- ------ + *Each stage assumes the associated GFR level has been in effect for at least three months. Stages 1 to 5, wit h or without kidney disease, indicate chronic kidney disease. Notes: Determination of stages one and two (with eGFR >59mL/min/1.73 m2) requires estimation of kidney damag e for at least three months as defined by structural or func tional abnormalities of the kidney, manifested by either: Pathological abnormalities or Markers of kidney damage (including abnormalities in the composition of the blo od or urine or abnormalities in imaging tests) . Performing Organization Address City/State/Zipcode Phone Number [facility] CLIA: [id number] [place] [address] [place] [address] CBC WITH DIFF (12/27/2019 3:29 AM CDT) Pathologist Sig nature WBC 8.97 4.30 - 11.[address] [facility] 10*3/L SERVICES RBC 4.98 3.93 - 5.[address] [facility] 10*6/L SERVICES HGB 15.8 (H) 11.6 - 15.0 [facility] g/dL SERVICES HCT 46.0 (H) 35.7 - 45.2 % [facility] MCV 92.4 80.6 - 95.5 fL [facility] MCH 31.7 25.9 - 32.8 pg [facility] MCHC 34.3 31.6 - 35.1 [facility] g/dL SERVICES RDW-SD 41.2 39.0 - 49.9 fL [facility] RDW-CV 12.0 12.0 - 15.5 % [facility] PLT 193 166 - 358 [facility] 10*3/L SERVICES MPV 10.9 9.5 - 12.9 fL [facility] NRBC/100 WBC 0.0 0.0 - 10.0 /100 [facility] WBCs SERVICES NRBC x10^3 <0.01 10*3/L [facility] GRAN MAT (NEUT) % 81.1 % [facility] IMM GRAN % 0.20 % [facility] LYMPH % 10.8 % [facility] MONO % 7.5 % [facility] EOS % 0.2 % [facility] BASO % 0.2 % [facility] GRAN MAT x10^3(ANC) 7.27 (H) 1.88 - 7.09 [facility] 10*3/uL SERVICES IMM GRAN x10^3 <0.03 0.00 - 0.06 [facility] 10*3/uL SERVICES LYMPH x10^3 0.97 (L) 1.32 - 3.29 [facility] 10*3/uL SERVICES MONO x10^3 0.67 0.33 - 0.92 [facility] 10*3/uL SERVICES EOS x10^3 <0.03 (L) 0.03 - 0.39 [facility] 10*3/uL SERVICES BASO x10^3 <0.03 0.01 - 0.07 [facility] 10*3/uL SERVICES Specimen Blood - ARM, RIGHT Performing Organization Address City/[facility]/Zipcode Phone Number [facility] CLIA: [id number] [place] [address] [place] [address] MAGNESIUM (12/27/2019 3:29 AM CDT) [facility] MAGNESIUM 1.8 1.7 - 2.4 mg/dL [facility] Specimen Blood - ARM, RIGHT Performing Organization Address [facility]/[place] Phone Number [facility] CLIA: [id number] [place] [address] [place] [address] Electroencephalogram (EEG) - Duration of test: Continuous EEG Monitoring (LTM) (12/27/2019) Narrative Performed At [facility] EEG MONITORING SEGMENT #1: Date and Time of Procedure: 12/27/2019, 9:14:58-11:03:06 REPORT TECHNICAL SUMMARY: The EEG was recorded digitally. Electrodes were applie d using the International 10/20 System of electrode placement. Eye movements, respiratory excursions and rhythm strip ECG were monit ored on separate channels of the ongoing EEG recording. There is no occipital dominant rhythm. The background frequency spectrum is wide, consisting primarily of diffuse 1.5-4 Hz, 4-8 Hz, 8-13 Hz, and 13-22 Hz activities. There is an excessive amount of 1 3-22 Hz activity diffusely. There is a polymorphic focal slowing in the 1.5-7 Hz range in the left hemisphere, most prominent in t he left anterior head region. There is no definitive electrographic evidence of drow siness or sleep seen. Photic stimulation and hyperventilation are not employ ed as activation technique. No electrographic seizures or epileptifo rm abnormalities are seen. The ECG lead shows frequent abnormal-appearing wavefor ms which appear to possibly be PVCs. IMPRESSION: This study is abnormal due to: 1) moderate diffuse slowing, suggestive of a moderate diffuse disturbance in cerebral function. 2) excess fast activity, which is sugges tive of medication effect. 3) focal slowing in the left hemisphere, suggestive of a focal disturbance in that region. 4) frequent abnormal-appearing ECG waveforms which sandhya ear to possibly be PVCs, and would be better assessed by a more appropria te method of cardiac monitoring. No electrographic seizures or epileptifo rm abnormalities are seen. The fact that there is no definitive electrographic ev idence of drowsiness or sleep seen may decrease the diagnostic s ensitivity of the test, as some EEG abnormalities are more commonly seen in drowsiness and sleep. I discussed these findings with the neur ology team following the patient immediately after I read this se gment. Interpreted by Gigi Colby MD on 12/26 [facility] MONITORING SEGMENT #2: Date and Time of Procedure: 12/27/2019, 11:03:06 to 16:14:06 Study was disconnected from 15:43:55 to 15:54:05 IMPRESSION: This study is abnormal due to: 1) moderate diffuse slowing, suggestive of a moderate diffuse disturbance in cerebral function. 2) excess fast activity, which is sugges tive of medication effect. 3) focal slowing in the left hemisphere, suggestive of a focal disturbance in that region. 4) frequent abnormal-appearing ECG waveforms which sandhya ear to possibly be PVCs, and would be better assessed by a more appropria te method of cardiac monitoring. No electrographic seizures or epileptifo rm abnormalities are seen. I discussed these findings with the neurology team fol lowing the patient immediately after I read this segment. Interpreted by Tena King MD on __ MONOGRAM AND LETTER PASTER EEG MONITORING SEGMENT #3: , 16:14:06-19:20:49 This segment is abnormal due to: 1) moderate diffuse slowing, which can be suggestive o f a moderate diffuse disturbance in cerebral function but can also be related to sedating medications. 2) excess fast activity, which can be suggestive of me dication effect but can also be seen in anxiety. 3) focal slowing in the left hemisphere, suggestive of a focal disturbance in that region. 4) frequent PVCs. No electrographic seizures or epileptifo rm abnormalities are seen. I discussed these findings with the neurology team [facility] immediately after I read this se gment. Interpreted by Cesar Dixon MD on 0 [facility] EEG MONITORING SEGMENT #3: 12/27/19,19:20:49 -12/28/2019, 11:17:23 This segment is abnormal due to: 1) moderate diffuse slowing, which can be suggestive o f a moderate diffuse disturbance in cerebral function but can also be related to sedating medications. 2) excess fast activity, which can be suggestive of me dication effect but can also be seen in anxiety. 3) focal slowing in the left hemisphere, suggestive of a focal disturbance in that region. 4) frequent PVCs. No electrographic seizures or epileptifo rm abnormalities are seen. Rosanna Pinon MD I personally interpreted the entire recording and agre e with Dr. Pinon's note as written. Interpreted by Claudio King MD on XR KUB (12/26/2019 4:35 PM CDT) Specimen Impressions Performed At FINDINGS/IMPRESSION: PACS/VR/DOSE The weighted enteric tube tip lies withi n the stomach. Preliminary Report Dictated by Resident: Navi Collazo I reviewed this study and agree with minor modificatio ns (no call needed to the referring physician). Nguyễn Alcocer MD., have reviewe d this study and agree with the above report. Narrative Performed At EXAM: XR KUB PACS/VR/DOSE HISTORY: Dobbhoff placement COMPARISON: Abdomen radiograph 0 Procedure Note [facility], Radiant Results Inft User - 2019 9:45 AM CDT EXAM: XR KUB HISTORY: Dobbhoff placement COMPARISON: Abdomen radiograph 0 IMPRESSION FINDINGS/IMPRESSION: The weighted enteric tube tip lies withi n the stomach. Preliminary Report Dictated by Resident: Navi Collazo I reviewed this study and agree with min or modifications (no call needed to the referring physician). Nguyễn Alcocer MD., have reviewe d this study and agree with the above report. Performing Organization Address City/State/Zipcode Phone Number PACS/VR/DOSE MR BRAIN WO CONTRAST (12/26/2019 11:45 AM CDT) Specimen Impressions Performed At PACS/VR/DOSE Motion degraded exam. Large subacute infarct in the le ft MCA territory with no gross evidence of hemorrhage transfor mation. Findings were communicated and acknowled ged by GILA Prasad at 12:51 PM on 12/26/2019. Preliminary Report Dictated by Resident: Henri De Paz MD., have reviewe d this study and agree with the above report. Narrative Performed At MRI OF THE BRAIN WITH AND WITHOUT CONTRA ST. PACS/VR/DOSE HISTORY: Neuro deficit(s), subacute COMPARISON: CT head dated 12/24/2019. TECHNIQUE: Routine MRI of the brain was performed at 3 [facility] without intravenous contrast administration. FINDINGS: Slight effacement of the left lateral ve ntricle is noted, unchanged. No midline shift, hydrocephalus or pathological extra-axi al fluid collection is present. The basal cisterns are unrem arkable. A broad area of restricted diffusion involving the lef t insular/subinsular cortex, left parietal lobe and left caud ate nucleus with corresponding T2/FLAIR hyperintensity with sulcal effa cement. Chronic right cerebellar lacunar infarcts. Scattered foci of T2/F LAIR hyperintensity seen in the bilateral cerebral white matter, nonspecific, likely r eflects sequelae of mild chronic small vessel ischemic changes. No abnorma l gradient blooming. Loss of the left ICA flow void. Minimal mucoperiosteal thickening affecting ethmoid ar e cells. A retention cyst seen in the right maxillary sinus. No abnormal fl uid signal is present in the mastoid air cells or remaining pa ranasal air sinuses. Procedure Note [facility], Radiant Results Inft User - 2019 1:47 PM CDT MRI OF THE BRAIN WITH AND WITHOUT CONTRAST. HISTORY: Neuro deficit(s), subacute COMPARISON: CT head dated 12/24/2019. TECHNIQUE: Routine MRI of the brain was performed at 3 [facility] [place] without intravenous contrast administration. FINDINGS: Slight effacement of the left lateral ve ntricle is noted, unchanged. No midline shift, hydrocephalus or patholog ical extra-axial fluid collection is present. The basal cisterns are unrem arkable. A broad area of restricted diffusion inv olving the left insular/subinsular cortex, left parietal lobe and left caud ate nucleus with corresponding T2/FLAIR hyperintensity with sulcal effa cement. Chronic right cerebellar lacunar infarcts. Scattered foci of T2/F LAIR hyperintensity seen in the bilateral cerebral white matter, nonspec ific, likely reflects sequelae of mild chronic small vessel ischemic garcia es. No abnormal gradient blooming. Loss of the left ICA flow void. Minimal mucoperiosteal thickening affect ing ethmoid are cells. A retention cyst seen in the right maxillary sinus. No abnormal fluid signal is present in the mastoid air cells or remaining pa ranasal air sinuses. IMPRESSION Motion degraded exam. Large subacute inf arct in the left MCA territory with no gross evidence of hemorrhage transfor mation. Findings were communicated and acknowled ged by GILA Prasad at 12:51 PM on 12/26/2019. Preliminary Report Dictated by Resident: Henri De Paz MD., have reviewed this study and agree with the above report. Performing Organization Address City/State/Zipcode Phone Number PACS/VR/DOSE TROPONIN I (12/26/2019 4:05 AM CDT) [facility] nature TROPONIN I 0.013 <=0.034 ng/mL [facility] Specimen Blood - VENOUS Narrative Performed At Equal or Less than 0.034 ng/ml---Normal [facility] Note: Cardiac troponin begins to rise 3-4 hours after the onset of ischemia. Repeat in 4-6 hours if the sample w as drawn within 3-4 hours of the onset of the symptom and found normal. Between 0.035 and 0.120 ng/mL--- Borderline. Questiona ble myocardial injury or necrosis Note: Serial measurement may be necessary to confirm o r exclude the diagnosis of myocardial injury or necrosis ; Clinical correlation (symptoms, EKGs, imaging studies, and others) required; Repeat in 4-6 hours if clinically indicated. Equal or Higher than 0.121 ng/mL---Abnormal. Myocardia l Injury or Necrosis Likely Biotin has been reported to cause a negative bias, int erpret results relative to patient's use of biotin. Performing Organization Address City/State/Zipcode Phone Number [facility] CLIA: [id number] [place] [address] [place] [address] BASIC METABOLIC PANEL (NA, K, CL, CO2, GLUCOSE, BUN, CREATININE, CA) (12/26/2019 4:05 AM CDT) [facility] [place] NA 137 135 - [address] [facility] mmol/L SERVICES K 3.7 3.5 - 5.[address] [facility] mmol/L SERVICES CL 108 98 - 108 mmol/L [facility] SERVICES CO2 TOTAL 21 (L) 23 - 31 mmol/L [facility] SERVICES AGAP 8 2 - [address] [facility] SERVICES BUN 10 7 - 23 mg/dL [facility] SERVICES GLUCOSE 107 70 - 110 mg/dL [facility] SERVICES CREATININE 0.57 0.50 - 1.[address] [facility] mg/dL SERVICES CALCIUM 8.4 (L) 8.6 - 10.[address] [facility] mg/dL SERVICES eGFR Calculation 108.9 mL/min/1.73m2 [facility] (Non- SERVICES Portuguese) eGFR Calculation 132.0 mL/min/1.73m2 [facility] () SERVICES Specimen Blood - VENOUS Narrative Performed At [facility] Glomerular Filtration Rate (GFR) and St aging [facility] SERVICES of Kidney Disease* + + +------- ------ + | GFR (mL/min/1.73 m2) | With Kidney Damage | Wi an[facility]udhout Kidney Damage + + +------- ------ + | >90 | Stage one | Normal + + +------- ------ + | 60-89 | Stage two | Decreased GFR + + +------- ------ + | 30-59 | Stage three | Stage three + + +------- ------ + | 15-29 | Stage four | Stage four + + +------- ------ + | <15 (or dialysis) | Stage five | Stage five + + +------- ------ + *Each stage assumes the associated GFR level has been in effect for at least three months. Stages 1 to 5, wit h or without kidney disease, indicate chronic kidney disease. Notes: Determination of stages one and two (with eGFR >59mL/min/1.73 m2) requires estimation of kidney damag e for at least three months as defined by structural or func tional abnormalities of the kidney, manifested by either: Pathological abnormalities or Markers of kidney damage (including abnormalities in the composition of the blo od or urine or abnormalities in imaging tests) . Performing Organization Address City/State/Zipcode Phone Number [facility] CLIA: [id number] [place], [place] [id number] [address] [place] [address] CBC WITH DIFF (12/26/2019 4:05 AM CDT) Pathologist Sig nature WBC 11.79 (H) 4.30 - 11.[address] [facility] 10*3/L SERVICES RBC 4.80 3.93 - 5.[address] [facility] 10*6/L SERVICES HGB 15.4 (H) 11.6 - 15.[address] [facility] g/dL SERVICES HCT 45.2 35.7 - 45.2 % [facility] SERVICES MCV 94.2 80.6 - 95.[address] [facility] SERVICES MCH 32.1 25.9 - 32.[address] [facility] SERVICES MCHC 34.1 31.6 - 35.[address] [facility] g/dL SERVICES RDW-SD 42.5 39.0 - 49.[address] [facility] SERVICES RDW-CV 12.2 12.0 - 15.5 % [facility] SERVICES PLT 205 166 - 358 [facility] 10*3/L SERVICES MPV 10.5 9.5 - 12.9 fL [facility] SERVICES NRBC/100 WBC 0.0 0.0 - 10.0 /100 [facility] WBCs SERVICES NRBC x10^3 <0.01 10*3/L [facility] GRAN MAT (NEUT) % 82.9 % [facility] IMM GRAN % 0.40 % [facility] LYMPH % 10.4 % [facility] MONO % 5.9 % [facility] EOS % 0.1 % [facility] BASO % 0.3 % [facility] GRAN MAT x10^3(ANC) 9.76 (H) 1.88 - 7.09 [facility] 10*3/uL SERVICES IMM GRAN x10^3 0.05 0.00 - 0.06 [facility] 10*3/uL SERVICES LYMPH x10^3 1.23 (L) 1.32 - 3.29 [facility] 10*3/uL SERVICES MONO x10^3 0.70 0.33 - 0.92 [facility] 10*3/uL SERVICES EOS x10^3 <0.03 (L) 0.03 - 0.39 [facility] 10*3/uL SERVICES BASO x10^3 0.04 0.01 - 0.07 [facility] 10*3/uL SERVICES Specimen Blood - VENOUS Performing Organization Address City/State/Zipcode Phone Number [facility] CLIA: [id number] [place] [address] [place] [address] XR KUB (12/26/2019 1:06 AM CDT) Specimen Impressions Performed At FINDINGS/IMPRESSION: PACS/VR/DOSE The tip of the Dobbhoff tube lies within the stomach. Preliminary Report Dictated by Resident: Navi Collazo I reviewed this study and agree. I, Nguyễn Coon MD., have reviewe d this study and agree with the above report. 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 Procedure Note [facility], Radiant Results Inft User - 2019 10:05 AM CDT EXAM: XR KUB HISTORY: DHT replaced, need to give meds and feeds COMPARISON: Abdomen radiograph 0. IMPRESSION FINDINGS/IMPRESSION: The tip of the Dobbhoff tube lies within the stomach. Preliminary Report Dictated by Resident: Navi Collazo I reviewed this study and agree. I, Nguyễn Coon MD., have reviewe d this study and agree with the above report. Performing Organization Address City/State/Zipcode Phone Number PACS/VR/DOSE BLOOD CULTURE SCREEN (12/25/2019 3:26 AM CDT) Blood No organisms isolated No growth [facility] Culture-Aerobic Comment: SERVICES Previous preliminary verifie d result was Culture In Progress on 12/25/2019 at 0901 CDT Previous preliminary verifie d result was No growth at 24 hours on 12/26/2019 at 0601 CDT Previous preliminary verifie d result was No growth at 48 hours on 12/27/2019 at 0601 CDT Previous preliminary verifie d result was No growth at 72 hours on 12/28/2019 at 0601 CDT Blood No organisms isolated No growth [facility] Culture-Anaerobic Comment: SERVICES Previous preliminary verifie d result was Culture In Progress on 12/25/2019 at 0901 CDT Previous preliminary verifie d result was No growth at 24 hours on 12/26/2019 at 0601 CDT Previous preliminary verifie d result was No growth at 48 hours on 12/27/2019 at 0601 CDT Previous preliminary verifie d result was No growth at 72 hours on 12/28/2019 at 0601 CDT Specimen Blood - ARM, RIGHT Narrative Performed At Optimal blood volume for culture is 8-10 mL per bottle . A [facility] SERVICES suboptimal volume of blood was collected for this cult ure, which could adversely affect recovery and/or time of detection of organisms. Interpret results accordingly. Performing Organization Address City/State/Zipcode Phone Number [facility] CLIA: [id number] [place] [address] [place] [address] BLOOD CULTURE SCREEN (12/25/2019 3:06 AM CDT) Blood No organisms isolated No growth [facility] Culture-Aerobic Comment: SERVICES Previous preliminary verifie d result was [facility] Previous preliminary verifie d result was No growth at 24 hours on 12/26/[address] [place], [place] [address] Previous preliminary verifie d result was No growth at 48 hours on 12/27/[address] [place], [place] [address] Previous preliminary verifie d result was No growth at 72 hours [facility] Blood No organisms isolated No growth [facility] Culture-Anaerobic Comment: SERVICES Previous preliminary verifie d result was Culture In Progress on 12/25/2019 at [facility] Previous preliminary verifie d result was No growth at 24 hours on 12/26/[address] [place] [address] Previous preliminary verifie d result was No growth at 48 hours on 12/27/[address] [place] [address] Previous preliminary verifie d result was No growth at 72 hours on 12/28/[address] [place] [address] Specimen Blood - VENOUS Performing Organization Address City/State/Zipcode Phone Number [facility] CLIA: [id number] [place] [address] [place] [address] BASIC METABOLIC PANEL (NA, K, CL, CO2, GLUCOSE, BUN, CREATININE, CA) (12/25/2019 3:06 AM CDT) NA 141 135 - [address] [facility] mmol/L SERVICES K 4.6Comment: 3.5 - 5.[address] [facility] Slight hemolysis mmol/L SERVICES CL 109 (H) 98 - [address] [facility] mmol/L SERVICES CO2 TOTAL 23 23 - [address] [facility] mmol/L SERVICES AGAP 9 2 - [address] [facility] SERVICES BUN 16Comment: Slight 7 - 23 mg/dL [facility] hemolysis SERVICES GLUCOSE 96 70 - [address] [facility] mg/dL SERVICES CREATININE 0.76 0.50 - 1.[address] [facility] mg/dL SERVICES CALCIUM 8.8 8.6 - 10.[address] [facility] mg/dL SERVICES eGFR Calculation 78.2 mL/min/1.73m2 [facility] (Non- SERVICES Portuguese) eGFR Calculation 94.7 mL/min/1.73m2 [facility] () SERVICES Specimen Blood - ARM, RIGHT Narrative Performed At Association of Glomerular Filtration Rate (GFR) and St aging [facility] SERVICES of Kidney Disease* + + +------- ------ + | GFR (mL/min/1.73 m2) | With Kidney Damage | Wi thout Kidney Damage + + +------- ------ + | >90 | Stage one | Normal + + +------- ------ + | 60-89 | Stage two | Decreased GFR + + +------- ------ + | 30-59 | Stage three | Stage three + + +------- ------ + | 15-29 | Stage four | Stage four + + +------- ------ + | <15 (or dialysis) | Stage five | Stage five + + +------- ------ + *Each stage assumes the associated GFR level has been in effect for at least three months. Stages 1 to 5, wit h or without kidney disease, indicate chronic kidney disease. Notes: Determination of stages one and two (with eGFR >59mL/min/1.73 m2) requires estimation of kidney damag e for at least three months as defined by structural or func tional abnormalities of the kidney, manifested by either: Pathological abnormalities or Markers of kidney damage (including abnormalities in the composition of the blo od or urine or abnormalities in imaging tests) . Performing Organization Address City/State/Zipcode Phone Number [facility] CLIA: [id number] [place] [address] [place] [address] CBC WITHOUT DIFF (12/25/2019 3:06 AM CDT) Pathologist Sig nature WBC 9.78 4.30 - 11.10 [facility] 10*3/L SERVICES RBC 5.03 3.93 - 5.[address] [facility] 10*6/L SERVICES HGB 15.6 (H) 11.6 - 15.0 g/dL [facility] HCT 47.5 (H) 35.7 - 45.2 % [facility] MCH 31.0 25.9 - 32.8 pg [facility] MCV 94.4 80.6 - 95.5 fL [facility] MCHC 32.8 31.6 - 35.1 g/dL [facility] PLT 241 166 - 358 10*3/L [facility] SERVICES MPV 10.4 9.5 - 12.9 fL [facility] RDW-CV 12.8 12.0 - 15.5 % [facility] RDW-SD 44.0 39.0 - 49.9 fL [facility] NRBC x10^3 <0.01 10*3/L [facility] NRBC/100 WBC 0.0 0.0 - 10.0 /[address] [facility] WBCs SERVICES IPF % [facility] SERVICES Specimen Blood - ARM, RIGHT Performing Organization Address [facility]/Zipcode Phone Number [facility] CLIA: [id number] [place] [address] [place] [address] Abdominal 1 View - To confirm nasogastric tube placement. (12/24/2019 9:38 PM CDT) Specimen Impressions Performed At PACS/VR/DOSE Nonobstructive bowel gas pattern. Preliminary Report Dictated by Resident: Navi Collazo I reviewed this study and agree. Nguyễn Alcocer MD., have reviewe d this study and agree with the above report. Narrative Performed At EXAM: XR ABDOMEN 1 VW PACS/VR/DOSE HISTORY: aphasia, and dysphagia COMPARISON: None. FINDINGS: The tip of the Dobbhoff tube lies within the stomach. The bowel gas pattern is unremarkable. No pathologically dilat ed bowel loops. Contrast is seen within the pelvicalycea l system of both kidneys, likely from recent study. Vascular calcifications are noted. No acute bony abnormality is present. Procedure Note [facility], Radiant Results Inft User - 2019 10:21 AM CDT EXAM: XR ABDOMEN 1 VW HISTORY: aphasia, and dysphagia COMPARISON: None. FINDINGS: The tip of the Dobbhoff tube lies within the stomach. The bowel gas pattern is unremarkable. No pathologically dilat ed bowel loops. Contrast is seen within the pelvicalycea l system of both kidneys, likely from recent study. Vascular calcifications are noted. No acute bony abnormality is present. IMPRESSION Nonobstructive bowel gas pattern. Preliminary Report Dictated by Resident: Navi Collazo I reviewed this study and agree. Nguyễn Alcocer MD., have reviewe d this study and agree with the above report. 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 Short segment opacification of the left M1 segment is noted before an abrupt cut off within the mid M1 segment. There is yulissa e vascularity noted within the distal MCA candelabra likely related to col lateral flow over the convexity. Short segment moderate narrowing of the right proximal cervical ICA (up to 50%) Mild to moderate focal narrowing of the mid basilar [place] Narrative Performed At CT ANGIOGRAM NECK, PACS/VR/DOSE CT ANGIOGRAM HEAD HISTORY: Female 59 years Stroke, follow up COMPARISON: CT head dated 12/24/2019 TECHNIQUE: Routine CTA head and neck wer e performed following administration of 100 mL IV Omnipaque FINDINGS: CTA head: The PICA origin is visualized bilaterally. Short segme nt moderate narrowing is seen within the mid basilar artery. The superior ce rebellar arteries are patent. The posterior cerebral arteries are patent. No sizable posterior communicating arteries are identified. The distal cervical, petrous, cavernous and supraclinoid portions of the right internal carotid artery are patent. The left int ernal carotid artery is completely occluded with reconstitution of a segmen t of the supraclinoid portion at the level of the ophthalmic a rtery. A short segment of the M1 segment is opa cified before there is an abrupt cut off. Attenuated flow is noted within distal M3 and M4 branches. The anterior cerebral arteries and the right middle cerebr al artery are patent. CTA NECK: The aortic arch demonstrates a classic 3 vessel branch ing pattern. The arch vessel origins are widely patent. Innomi allison and subclavian arteries demonstrate scattered mild atherosclerotic calcificati on but remain widely patent. The common carotid arteries are widely patent. There i s an abrupt cut off of the left cervical internal carotid ar [place] just distal to the bulb. Atherosclerotic calcification in the rig ht carotid and proximal cervical internal carotid artery resulting in debbie rt segment moderate (up to 50%) narrowing. The right cervical internal carotid artery is otherwise patent. The vertebral arteries are patent from their subclavia n origins through the vertebrobasilar junction. Procedure Note [facility], Radiant Results Inft User - 2019 6:[address] ANGIOGRAM NECK, CT ANGIOGRAM HEAD HISTORY: Female 59 years Stroke, follow up COMPARISON: CT head dated 12/24/2019 TECHNIQUE: Routine CTA head and neck wer e performed following administration of 100 mL IV Omnipaque FINDINGS: CTA head: The PICA origin is visualized bilaterall y. Short segment moderate narrowing is seen within the mid basilar artery. T he superior cerebellar arteries are patent. The posterior cerebral arteries are patent. No sizable posterior communicating arteries are identified. The distal cervical, petrous, cavernous and supraclinoid portions of the right internal carotid artery are patent . The left internal carotid artery is completely occluded with reconstituti on of a segment of the supraclinoid portion at the level of the ophthalmic a rtery. A short segment of the M1 segment is opa cified before there is an abrupt cut off. Attenuated flow is noted within distal M3 and M4 branches. The anterior cerebral arteries and the right middle cerebral artery are patent. CTA NECK: The aortic arch demonstrates a classic 3 vessel branching pattern. The arch vessel origins are widely patent. Innomi allison and subclavian arteries demonstrate scattered mild atherosclerot ic calcification but remain widely patent. The common carotid arteries are widely p atent. There is an abrupt cut off of the left cervical internal carotid [place] just distal to the bulb. Atherosclerotic calcification in the rig ht carotid and proximal cervical internal carotid artery resulting in debbie rt segment moderate (up to 50%) narrowing. The right cervical internal c arotid artery is otherwise patent. The vertebral arteries are patent from t heir subclavian origins through the vertebrobasilar junction. 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 Short segment opacification of the left M1 segment is noted before an abrupt cut off within the mid M1 segment . There is some vascularity noted within the distal MCA candelabra likely related to collateral flow over the convexity. 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 Short segment opacification of the left M1 segment is noted before an abrupt cut off within the mid M1 segment. There is yulissa e vascularity noted within the distal MCA candelabra likely related to col lateral flow over the convexity. Short segment moderate narrowing of the right proximal cervical ICA (up to 50%) Mild to moderate focal narrowing of the mid basilar [place] Narrative Performed At CT ANGIOGRAM NECK, PACS/VR/DOSE CT ANGIOGRAM HEAD HISTORY: Female 59 years Stroke, follow up COMPARISON: CT head dated 12/24/2019 TECHNIQUE: Routine CTA head and neck wer e performed following administration of 100 mL IV Omnipaque FINDINGS: CTA head: The PICA origin is visualized bilaterally. Short segme nt moderate narrowing is seen within the mid basilar artery. The superior ce rebellar arteries are patent. The posterior cerebral arteries are patent. No sizable posterior communicating arteries are identified. The distal cervical, petrous, cavernous and supraclinoid portions of the right internal carotid artery are patent. The left int ernal carotid artery is completely occluded with reconstitution of a segmen t of the supraclinoid portion at the level of the ophthalmic a rtery. A short segment of the M1 segment is opa cified before there is an abrupt cut off. Attenuated flow is noted within distal M3 and M4 branches. The anterior cerebral arteries and the right middle cerebr al artery are patent. CTA NECK: The aortic arch demonstrates a classic 3 vessel branch ing pattern. The arch vessel origins are widely patent. Innomi allison and subclavian arteries demonstrate scattered mild atherosclerotic calcificati on but remain widely patent. The common carotid arteries are widely patent. There i s an abrupt cut off of the left cervical internal carotid ar [place]is just distal to the bulb. Atherosclerotic calcification in the rig ht carotid and proximal cervical internal carotid artery resulting in debbie rt segment moderate (up to 50%) narrowing. The right cervical internal carotid artery is otherwise patent. The vertebral arteries are patent from their subclavia n origins through the vertebrobasilar junction. Procedure Note [facility], Radiant Results Inft User - 2019 6:[address] ANGIOGRAM NECK, CT ANGIOGRAM HEAD HISTORY: Female 59 years Stroke, follow up COMPARISON: CT head dated 12/24/2019 TECHNIQUE: Routine CTA head and neck wer e performed following administration of 100 mL IV Omnipaque FINDINGS: CTA head: The PICA origin is visualized bilaterall y. Short segment moderate narrowing is seen within the mid basilar artery. T he superior cerebellar arteries are patent. The posterior cerebral arteries are patent. No sizable posterior communicating arteries are identified. The distal cervical, petrous, cavernous and supraclinoid portions of the right internal carotid artery are patent . The left internal carotid artery is completely occluded with reconstituti on of a segment of the supraclinoid portion at the level of the ophthalmic a rtery. A short segment of the M1 segment is opa cified before there is an abrupt cut off. Attenuated flow is noted within distal M3 and M4 branches. The anterior cerebral arteries and the right middle cerebral artery are patent. CTA NECK: The aortic arch demonstrates a classic 3 vessel branching pattern. The arch vessel origins are widely patent. Innomi allison and subclavian arteries demonstrate scattered mild atherosclerot ic calcification but remain widely patent. The common carotid arteries are widely p atent. There is an abrupt cut off of the left cervical internal carotid ar [place]is just distal to the bulb. Atherosclerotic calcification in the rig ht carotid and proximal cervical internal carotid artery resulting in debbie rt segment moderate (up to 50%) narrowing. The right cervical internal c arotid artery is otherwise patent. The vertebral arteries are patent from t heir subclavian origins through the vertebrobasilar junction. 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 Short segment opacification of the left M1 segment is noted before an abrupt cut off within the mid M1 segment . There is some vascularity noted within the distal MCA candelabra likely related to collateral flow over the convexity. Short segment moderate narrowing of the right proximal cervical ICA (up to 50%) Mild to moderate focal narrowing of the mid basilar artery Performing Organization Address City/State/Zipcode Phone Number PACS/VR/DOSE MRSA / MSSA Screen by PCR, Nares (12/24/2019 4:53 PM CDT) Pathologist Sig nature MRSA Screen by PCR, Negative Negative [facility] Nares SERVICES MSSA Screen by PCR, Positive (A) Negative [facility] Nares SERVICES MRSA/MSSA Positive? Yes (A) No [facility] SERVICES Specimen Swab - NARES, BOTH SIDES Narrative Performed At A positive test result does not necessarily indicate t [facility] SERVICES presence of viable organism. Performing Organization Address City/State/Zipcode Phone Number [facility] CLIA: [id number] [place] [address] [place] [address] COVID-19 (ID NOW RAPID TESTING) (12/24/2019 1:53 PM CDT) SARS-CoV-2 Rapid ID Not Detected Not Detected [facility] Specimen Swab - NASOPHARYNGEAL SWAB Narrative Performed At [facility] NOW COVID-19 Assay is an isothermal nucleic [facility] acid amplification test intended for the qualitative detection of nucleic acid from SARS-CoV-2 viral RNA in nasopharyngeal (POSTER) specimens. It is used under Emergency Use Authorization (EUA) by FDA. The limit of detection (LOD) of the assay is 125 Genome Equivalents/mL. A positive result is indicative of the presence of SARS-CoV-2 RNA. Clinical correlation with patient history and other diagnostic information is necessary to determine patient infection status. A negative (Not Detected) result does not preclude SARS-CoV-2 infection. In patients with clinical symptoms and other tests that are consistent with SARS-CoV-2 infection, negative results should be treated as presumptive negative and a new specimen should be tested with alternative PCR molecular test. Invalid: Please collect a new specimen for repeat patient testing if clinically indicated. Performing Organization Address City/State/Zipcode Phone Number [facility] CLIA: [id number] [place] [address] LAB[address]AT[address] HEAD WO CONTRAST (12/24/2019 1:27 PM CDT) Specimen Impressions Performed At PACS/VR/DOSE Acute-subacute infarct in the left MCA territory with an ASPECTS score of around 3. No evidence of hemorrhagic tra nsformation These findings were discussed with Dr. Dave farmer at the time of report dictation Narrative Performed At CT HEAD WO CONTRAST PACS/VR/DOSE HISTORY: Female 59 years Altered mental status (AMS), unclear cause COMPARISON: CT head dated 11/14/2018 TECHNIQUE: Routine CT head without contr ast FINDINGS: There is slight effacement of the left l ateral ventricle. The ventricles and cerebral sulci are otherwise normal in caliber and configuration. No hydrocephalus, midline shift or pathological extra axi al fluid collection is present. The basal cisterns are unrem arkable. No acute intracranial hemorrhage or mass effect is present. An acute-subacute infarct involving the lef t MCA territory is noted without evidence of hemorrhagic transformation. The ASPECTS sc ore is estimated ot be 3. The salas-white matter differenti ation is otherwise preserved. No additional parenchymal attenuation abnor mality is present. The calvarium and skull base are unremar kable. The mastoid air cells and visualized paranasal air sinuses are jammie ar. Procedure Note [facility], Radiant Results Inft User - 2019 1:[address] HEAD WO CONTRAST HISTORY: Female 59 years Altered mental status (AMS), unclear cause COMPARISON: CT head dated 11/14/2018 TECHNIQUE: Routine CT head without contr ast FINDINGS: There is slight effacement of the left l ateral ventricle. The ventricles and cerebral sulci are otherwise normal in caliber and configuration. No hydrocephalus, midline shift or patholog ical extra axial fluid collection is present. The basal cisterns are unrem arkable. No acute intracranial hemorrhage or mass effect is present. An acute-subacute infarct involving the lef t MCA territory is noted without evidence of hemorrhagic transformation. The ASPECTS score is estimated ot be 3. The salas-white matter differentia tion is otherwise preserved. No additional parenchymal attenuation abnor mality is present. The calvarium and skull base are unremar kable. The mastoid air cells and visualized paranasal air sinuses are jammie ar. IMPRESSION Acute-subacute infarct in the left MCA t erritory with an ASPECTS score of around 3. No evidence of hemorrhagic tra nsformation These findings were discussed with Dr. Dave farmer at the time of report dictation Performing Organization Address City/State/Zipcode Phone Number PACS/VR/DOSE XR CHEST 1 VW (12/24/2019 1:27 PM CDT) Specimen Impressions Performed At PACS/VR/DOSE Chronic emphysematous changes. No pleural effusion, pneumothorax or con solidative process. Preliminary Report Dictated by Resident: Dorene Yuen I, Isaiah Valentine MD., have reviewed this study and agree with the above report. Narrative Performed At XR CHEST 1 VW PACS/VR/DOSE Comparison: 11/14/2018 History: pneumonia Technique: Frontal radiograph Findings: Suboptimal evaluation due to positioning . A nodular opacity in the left lung base likely represe nt a nipple shadow. The lungs are hyperinflated without foca l consolidation. No pleural effusion or pneumothorax is identified. The cardiomediastinal silhouette is norm al in size. No acute osseous abnormality is present. Procedure Note [facility], Radiant Results Inft User - 2019 2:01 PM CDT XR CHEST 1 VW Comparison: 11/14/2018 History: pneumonia Technique: Frontal radiograph Findings: Suboptimal evaluation due to positioning . A nodular opacity in the left lung base likely represent a nipple shadow. The lungs are hyperinflated without foca l consolidation. No pleural effusion or pneumothorax is identified. The cardiomediastinal silhouette is norm al in size. No acute osseous abnormality is present. IMPRESSION Chronic emphysematous changes. No pleural effusion, pneumothorax or con solidative process. Preliminary Report Dictated by Resident: Dorene Yuen I, Isaiah Valentine MD., have reviewed [facility] study and agree with the above report. Performing Organization Address City/[facility]/Zipcode Phone Number PACS/VR/DOSE Urinalysis (12/24/2019 12:43 PM CDT) Pathologist Sig nature APPEARANCE Clear Clear [facility] COLOR Yellow Yellow [facility] PH 5.0 4.8 - 8.0 [facility] SP GRAVITY 1.023 1.003 - 1.030 [facility] GLU U QUAL Normal Normal [facility] BLOOD 2+ (A) Negative [facility] KETONES 5 mg/dL (A) Negative [facility] PROTEIN 100 mg/dL (A) Negative [facility] UROBILIN Normal Normal [facility] BILIRUBIN Negative Negative [facility] NITRITE Negative Negative [facility] LEUK LOGAN Negative Negative [facility] RBC/HPF 5 (H) 0 - 3 HPF [facility] WBC/HPF 2 0 - 5 HPF [facility] BACTERIA Negative Negative [facility] MUCOUS Slight (A) Negative LPF [facility] SQ EPITH <1 HPF [facility] GRAN CASTS 1 <=1 LPF [facility] Specimen Urine - URINE, CLEAN CATCH Performing Organization Address [facility]/Zipcode Phone Number [facility] CLIA: [id number] [place] [address] ADC / LCC - DRUG SCREEN TRIAGE (12/24/2019 12:42 PM CDT) BENZO U Negative Negative [facility] NAOMI U Negative Negative [facility] AMPHET Negative Negative [facility] THC Presumptive Positive Negative [facility] (A)Comment: HOSPITAL Confirmation of LABORATORY Presumptive Positive THC result requires physician order. METHADONE Negative Negative [facility] Meth U Negative Negative [facility] OPIATES Negative Negative [facility] Cocaine Metabolite Presumptive Positive Negative [facility] (A) [facility] PROPOXY Negative Negative [facility] Tric U Negative Negative [facility] PCP Negative Negative [facility] OXYCOD Negative Negative [facility] Specimen Urine - URINE, CLEAN CATCH Narrative Performed At Urine Drug Cutoff Ranges [facility] Benzodiazepines: 150 ng/mL Barbiturates: 200 ng/mL Amphetamine: 500 ng/mL Cannabinoids: 50 ng/mL Methadone: 200 ng/mL Methamphetamine: 500 ng/mL Opiates: 100 ng/mL or 2000 ng/mL Cocaine: 150 ng/mL Propoxyphene: 300 ng/mL Tricyclics: 300 ng/mL Oxycodone: 100 ng/mL PCP: 25 ng/mL The results are to be used only for medical (i.e., treatment) purposes. Unconfirmed screening results must not be used for non-medical purposes (e.g., employment testing, legal testing). Performing Organization Address City/[facility]/Zipcode Phone Number [facility] CLIA: [id number] [place] [address] [place] [address] GLYCOSYLATED HEMOGLOBIN (A1C) (12/24/2019 12:41 PM CDT) Pathologist Sig nature HGB A1C 5.2 4.0 - 6.0 % [facility] Specimen Blood - VENOUS Narrative Performed At %A1C (NGSP) Interpretation (ADA) [facility] 4.8-5.6 Normal or (Non-Diabetic Ra nge) 5.7-6.4 Increased Risk (Pre-Diabet ic) >6.5 Diabetes Indicated Performing Organization Address [facility]/[place] Phone Number [facility] CLIA: [id number] [place] [address] [place] [address] FASTING LIPID PANEL (05435)(TOTAL CHOLESTEROL, TRIGLYCERIDES, HDL) (12/24/2019 12:41 PM CDT) Pathologist Sig nature CHOL 211 (H) 120 - 200 mg/dL [facility] HDL 80 >50 mg/dL [facility] HDLC RATIO 2.6 <=4.5 [facility] TRIG 109 30 - 170 mg/dL [facility] LDL CHOL 109 <=160 mg/dL [facility] VLDL 22 5 - 60 mg/dL [facility] Specimen Blood - VENOUS Performing Organization Address [facility] Phone Number [facility] CLIA: [id number] [place] [address] MAGNESIUM (12/24/2019 12:41 PM CDT) Pathologist Sig nature MAGNESIUM 1.9 1.7 - 2.4 mg/dL [facility] Specimen Blood - VENOUS Performing Organization Address [facility] Number [facility] CLIA: [id number] [place], [place] [address] LABORATORY [address] ETHANOL (12/24/2019 12:41 PM CDT) Pathologist Sig nature ALCOHOL <10 mg/dL [facility] Specimen Blood - VENOUS Narrative Performed At <10 Negative [facility] 50-100 Toxic >100 Depression of EDUCATION REPORTER >400 Fatalities Reported Performing Organization Address [facility] Phone Number [facility] CLIA: [id number] [place] [address] SALICYLATE (12/24/2019 12:41 PM CDT) Pathologist Sig nature SALICYLATE <10 mg/L [facility] Specimen Blood - VENOUS Narrative Performed At Therapeutic Range: [facility] Analgesic and Antipyretic Use 20-100 mg/L Anti-Inflammatory Use 100-250 mg/L Toxic Range: Greater than 300 mg/L Performing Organization Address [facility] Phone Number [facility] CLIA: [id number] [place] [address] THYROID STIMULATING HORMONE (12/24/2019 12:41 PM CDT) Pathologist Sig nature TSH 2.06 0.45 - 4.70 mIU/L [facility] Specimen Blood - VENOUS Performing Organization Address City/State/Zipcode Phone Number [facility] CLIA: [id number] [place] [address] FREE T3 (12/24/2019 12:41 PM CDT) Pathologist Sig nature FREE T3 3.15 2.77 - 5.27 pg/mL [facility] Specimen Blood - VENOUS Performing Organization Address City/[facility]/[place] Phone Number [facility] CLIA: [id number] [place] [address] FREE T4 (12/24/2019 12:41 PM CDT) Pathologist Sig nature FREE T4 1.18 0.78 - 2.20 ng/dL: [facility] Specimen Blood - VENOUS Performing Organization Address [facility]/[place] Phone Number [facility] CLIA: [id number] [place] [address] Prothrombin Time (PT) / INR (12/24/2019 12:41 PM CDT) PROTIME PATIENT 13.0 12.0 - 14.7 [facility] LABORATORY INR 1.0Comment: Normal [facility] INR <1.1; Warfarin [facility] Therapeutic range LABORATORY 2.0 to 3.0 or 2.5 to 3.5, depending upon the indications. Specimen Blood - VENOUS Performing Organization Address [facility] Phone Number [facility] CLIA: [id number] [place] [address] aPTT (12/24/2019 12:41 PM CDT) Pathologist Sig nature APTT Patient 23 23 - 38 Seconds [facility] Specimen Blood - VENOUS Narrative Performed At The [facility] patient population mean normal value [facility] for aPTT is 30 seconds. Performing Organization Address [facility]/[place] Phone Number [facility] CLIA: [id number] [place] [address] Troponin I (12/24/2019 12:41 PM CDT) Pathologist Sig nature TROPONIN I 0.017 <=0.034 ng/mL [facility] Specimen Blood - VENOUS Narrative Performed At Equal or Less than 0.034 ng/ml---Normal [facility] Note: Cardiac troponin begins to rise 3-4 hours after the onset of ischemia. Repeat in 4-6 hours if the sample was drawn within 3-4 hours of the onset of the symptom and found normal. Between 0.035 and 0.120 ng/mL--- Borderline. Questionable myocardial injury or necros is Note: Serial measurement may be necessary to confirm or exclude the diagnosis of myocardial injury or necrosis; Clinical correlation (symptoms, EKGs, imaging studies, and others) required; Repeat in 4-6 hours if clinically indicated. Equal or Higher than 0.121 ng/mL---Abnormal. Myocardial Injury or Necrosis Likely Biotin has been reported to cause a negative bias, interpret results relative to patient's use of biotin. Performing Organization Address [facility] Phone Number [facility] CLIA: [id number] [place] [id number] LABORATORY [address] [place] [address] Hepatic Function Panel (ALB, T.PRO, BILI T, BU/BC, ALT, AST, ALK PHOS) (12/24/2019 12:41 PM CDT) Pathologist [facility] TOTAL BILI 0.7 0.1 - 1.1 mg/dL [facility] BILI UNCON 0.8 0.1 - 1.1 mg/dL [facility] BILI CONJ 0.0 0.0 - 0.3 mg/dL [facility] T PROTEIN 7.8 6.3 - 8.2 g/dL [facility] ALBUMIN 4.2 3.5 - 5.0 g/dL [facility] ALK PHOS 66 34 - 122 U/L [facility] ALTv 20 5 - 35 U/L [facility] AST(SGOT) 32 13 - 40 U/L [facility] Specimen Blood - VENOUS Performing Organization Address [facility] Phone Number [facility] CLIA: [id number] [place] [address] [place] [address] Basic Metabolic Panel (NA, K, CL, CO2, GLUCOSE, BUN, CREATININE, CA) (12/24/2019 12:41 PM CDT) [facility] nature NA 139 135 - 145 [facility] mmol/L [facility] K 3.5 3.5 - 5.0 [facility] mmol/L [facility] CL 103 98 - 108 mmol/L [facility] CO2 TOTAL 27 23 - 31 mmol/L [facility] AGAP 9 2 - 16 [facility] BUN 16 7 - 23 mg/dL [facility] GLUCOSE 127 (H) 70 - 110 mg/dL [facility] CREATININE 0.81 0.50 - 1.04 [facility] mg/dL [facility] CALCIUM 9.9 8.6 - 10.6 [facility] mg/dL [facility] eGFR Calculation 72.6 mL/min/1.73m2 [facility] (Non[facility] LABORATORY Portuguese) eGFR Calculation 88.0 mL/min/1.73m2 [facility] () [facility] Specimen Blood - VENOUS Narrative Performed At Association of Glomerular Filtration Rate (GFR) [facility] LABORATORY and Staging of Kidney Disease* + + +- + | GFR (mL/min/1.73 m2) | With Kidney Damage | Without Kidney Damage + + +- + | >90 | Stage one | Normal + + +- + | 60-89 | Stage two | Decreased GFR + + +- + | 30-59 | Stage three | Stage three + + +- + | 15-29 | Stage four | Stage four + + +- + | <15 (or dialysis) | Stage five | Stage five + + +- + *Each stage assumes the associated GFR level has been in effect for at least three months. Stages 1 to 5, with or without kidney disease, indicate chronic kidney disease. Notes: Determination of stages one and two (with eGFR >59mL/min/1.73 m2) requires estimation of kidney damage for at least three months as defined by structural or functional abnormalities of the kidney, manifested by either: Pathological abnormalities or Markers of kidney damage (including abnormalities in the composition of the blood or urine or abnormalities in imaging tests). Performing Organization Address City/State/Zipcode Phone Number [facility] CLIA: [id number] [place] [address] [address] CBC with Differential (12/24/2019 12:41 PM CDT) Pathologist Sig nature WBC 12.30 (H) 4.30 - 11.10 [facility] 10*3/L HOSPITAL LAB[facility]ATORY RBC 5.25 3.93 - 5.25 [facility] 10*6/L HOSPITAL LAB[facility]ATORY HGB 16.7 (H) 11.6 - 15.0 [facility] g/dL HOSPITAL LAB[facility]ATORY HCT 49.3 (H) 35.7 - 45.2 % [facility] MCV 93.9 80.6 - 95.5 fL [facility] MCH 31.8 25.9 - 32.8 pg [facility] MCHC 33.9 31.6 - 35.1 [facility] g/dL [facility] RDW-SD 43.6 39.0 - 49.9 fL [facility] RDW-CV 12.6 12.0 - 15.5 % [facility] PLT 229 166 - 358 [facility] 10*3/L [facility] MPV 10.5 9.5 - 12.9 fL [facility]ORY NRBC/100 WBC 0.0 0.0 - 10.0 /100 [facility] WBCs [facility] NRBC x10^3 <0.01 10*3/L [facility]ORY GRAN MAT (NEUT) % 82.1 % [facility] IMM GRAN % 0.40 % [facility] LYMPH % 10.5 % [facility] MONO % 6.7 % [facility]ORY EOS % 0.1 % [facility]ORY BASO % 0.2 % [facility]ORY GRAN MAT x10^3(ANC) 10.11 (H) 1.88 - 7.09 [facility] 10*3/uL HOSPITAL LABORATORY IMM GRAN x10^3 0.05 0.00 - 0.06 [facility] 10*3/uL HOSPITAL LAB[facility]ORY LYMPH x10^3 1.29 (L) 1.32 - 3.29 [facility] 10*3/uL HOSPITAL LAB[facility]ATORY MONO x10^3 0.82 0.33 - 0.92 [facility] 10*3/uL HOSPITAL LAB[facility]ATORY EOS x10^3 <0.03 (L) 0.03 - 0.39 [facility] 10*3/uL HOSPITAL LAB[facility]ORY BASO x10^3 <0.03 0.01 - 0.07 [facility] 10*3/uL HOSPITAL LAB[facility]ATORY Specimen Blood - VENOUS Performing Organization Address [facility]/[place] Phone Number [facility] CLIA: [id number] [place] [address] AC PANEL 21 + LACTIC ACID (12/24/2019 12:40 PM CDT) [facility] PH 7.45 (H) 7.32 - 7.42 [facility] PCO2 GAMA 38 (L) 41 - 51 mmHg [facility] PO2 GAMA 30 25 - 40 mmHg [facility] HCO3 GAMA 26 24 - 28 mEq/L [facility] AC VBE(BEAKER) 1.9 mEq/L [facility] THB GAMA 17.2 (H) 12.0 - 16.0 g/dL [facility] %O2HB GAMA 61.0 52.0 - 63.0 % [facility] %COHB GAMA 1.4 0.0 - 1.5 % [facility] %METHB GAMA 0.3 (L) 0.4 - 1.5 % [facility] VOL%O2 GAMA 14.7 (H) 6.0 - 12.0 % [facility] NA 142 135 - 145 mmol/L [facility] K+ 3.7 3.5 - 5.0 mmol/L [facility] AC CA IONZ 4.60 4.50 - 5.30 mg/dL [facility] GLUCOSE 129 (H) 70 - 110 mg/dL [facility]ORY LACTIC ACID 2.01 mmol/L [facility] Specimen Blood - VENOUS Performing Organization Address City/[facility]/Zipcode Phone Number [facility] CLIA: [id number] [place] [address] documented in this encounter Visit Diagnoses Diagnosis Altered mental status, unspecified alter ed mental status type - Primary Hypertension, unspecified type Cerebrovascular accident (CVA), unspecif ied mechanism Cocaine abuse Cocaine abuse, unspecified Acute ischemic left MCA stroke Unspecified cerebral artery occlusion wi th cerebral infarction PAD (peripheral artery disease) Unspecified disorders of arteries and ar terioles Coronary artery disease without angina p ectoris At risk for seizures Other specified conditions influencing h ealth status E44.0 Moderate protein calorie malnutrit ion Malnutrition of moderate degree Respiratory distress Other dyspnea and respiratory abnormalit y documented in this encounter Administered Medications Medication Order MAR Action Action Date Dose Rate Site acetaminophen (TYLENOL) 160 mg/5 Given 01/09/2020 8:44 AM CDT 6 50 mg mL liquid 650 mg 650 mg, Enteral, Q4HPRN, Starting 01/09/20 at 0832, Until Discontinued, Routine, Pain (scale 1-3), Pain (scale 4-6) acetylcysteine (MUCOMYST) 200 mg/mL (20 %) Given 01/11/2020 11:34 AM CDT 200 mg solution 200 mg 200 mg (1 mL), Inhalation, Q6H, First dose on Danay 12/29/19 at 1800, Until Discontinued, Routine Given 01/11/2020 6:42 AM CDT 200 mg Given 01/11/2020 12:32 AM CDT 200 mg amLODIPine (NORVASC) tablet 10 mg Given 01/11/2020 7:36 AM CDT 10 mg 10 mg, Enteral, DAILY, First dose (after last modification) on 12/31/19 at 0900, Until Discontinued, Routine Given 01/10/2020 8:08 AM CDT 10 mg Given 01/09/2020 8:09 AM CDT 10 mg aspirin EC tablet 81 mg Given 01/11/2020 7:36 AM CDT 81 mg 81 mg, Enteral, DAILY, First dose on 12/25/19 at 0900, Until Discontinued, Routine Given 01/10/2020 8:08 AM CDT 81 mg Given 01/09/2020 8:09 AM CDT 81 mg atorvastatin (LIPITOR) tablet 40 mg Given 01/10/2020 9:35 PM CDT 40 mg 40 mg, Enteral, QHS, First dose on 12/24/19 at 2100, Until Discontinued, Routine Given 01/09/2020 8:23 PM CDT 40 mg Given 01/08/2020 8:05 PM CDT 40 mg chlorhexidine (PERIDEX) 0.12 % mouthwash 15 Given 01/06/2020 5:25 AM CDT 15 mL mL 15 mL, Oral (Swish And Spit Out), Q6H, First dose on Danay 12/29/19 at 1200, Until Discontinued, Routine Given 01/05/2020 6:47 PM CDT 15 mL Given 01/05/2020 12:46 PM CDT 15 mL clopidogreL (PLAVIX) tablet 75 mg Given 01/11/2020 7:36 AM CDT 75 mg 75 mg, Enteral, DAILY, First dose on 01/01/20 at 0900, Until Discontinued, Routine Given 01/10/2020 8:07 AM CDT 75 mg Given 01/09/2020 8:09 AM CDT 75 mg famotidine (PEPCID) 40 mg/5 mL (8 mg/mL) Given 01/11/2020 7:36 AM CDT 20 mg suspension 20 mg 20 mg, Enteral, BID, First dose on 12/24/19 at 2000, Until Discontinued, Routine Given 01/10/2020 9:35 PM CDT 20 mg Given 01/10/2020 8:08 AM CDT 20 mg heparin (porcine) injection Given 01/11/2020 7:36 AM CDT 5,000 Units Abdomen-SC 5,000 Units 5,000 Units, Subcutaneous, Q12H, First dose on 12/24/19 at 2000, Until Discontinued, Routine Given 01/10/2020 9:35 PM CDT 5,000 Units Abdo men-SC Given 01/10/2020 8:08 AM CDT 5,000 Units Abdo men-SC hydralAZINE (APRESOLINE) injection 10 mg Given 01/04/2020 8:40 PM CDT 10 mg 10 mg, Slow IV Push, Q6HPRN, Starting 12/26/19 at 1710, Until Discontinued, Routine, SBP > 160, Indication: Hypertensive Emergency Given 01/02/2020 4:42 PM CDT 10 mg Given 01/02/2020 8:37 AM CDT 10 mg ipratropium-albuteroL (DUONEB) 0.5 mg-3 mg(2.5 Given 1 11:34 AM CDT 3 mL mg base)/3 mL nebulizer solution 3 mL 3 mL, Inhalation, Q6H ABX, First dose (after last modification) on Danay 12/29/19 at 0000, Until Discontinued, Routine Given 01/11/2020 6:42 AM CDT 3 mL Given 01/11/2020 12:21 AM CDT 3 mL levETIRAcetam (KEPPRA) 100 mg/mL oral Given 01/11/2020 7:36 AM CDT 750 mg solution 750 mg 750 mg, Enteral, BID, First dose on Thu12/28/19 at 2000, Until Discontinued, Routine Given 01/10/2020 9:35 PM CDT 750 mg Given 01/10/2020 8:08 AM CDT 750 mg lisinopriL (PRINIVIL,ZESTRIL) tablet 20 mg Given 01/11/2020 7:36 AM CDT 20 mg 20 mg, Enteral, BID, First dose (after last modification) on Thu01/03/20 at 0800, Until Discontinued, Routine Given 01/10/2020 9:35 PM CDT 20 mg Given 01/10/2020 8:08 AM CDT 20 mg mupirocin (BACTROBAN OINT) 2 % skin oint ment Given 01/11/2020 7:36 AM CDT Given 01/10/2020 9:35 PM CDT Given 01/10/2020 8:08 AM CDT Polyethylene Glycol 3350 (MIRALAX) powde r 17 g Given 01/06/2020 10:06 PM CDT 17 g 17 g, Enteral, BID, First dose on Thu12/27/19 at 2000, Until Discontinued, Routine Given 01/06/2020 7:38 AM CDT 17 g Given 01/05/2020 8:57 AM CDT 17 g risperiDONE (RISPERDAL) tablet 0.5 mg Given 01/11/2020 7:36 AM CDT 0.5 mg 0.5 mg, Enteral, BID, First dose (after last modification) on Thu12/30/19 at 0800, Until Discontinued, Routine Given 01/10/2020 9:35 PM CDT 0.5 mg Given 01/10/2020 8:08 AM CDT 0.5 mg Saline Bubble Study Given 12/29/2019 3:00 PM CDT 6 mL 6 mL, Injection, SEE-INSTRUCTIONS, 2 doses, Starting Danay 12/29/19 at 1611, Until Discontinued, Routine Saline Bubble Study Given 12/29/2019 3:00 PM CDT 6 mL 6 mL, Injection, SEE-INSTRUCTIONS, 2 doses, Starting Danay 12/29/19 at 1611, Until Discontinued, Routine sennosides-docusate sodium (SENOKOT-S) Given 01/06/2020 10:06 PM CDT 1 tablet 8.6-50 mg per tablet 1 tablet 1 tablet, Enteral, BID, First dose on Thu12/27/19 at 1345, Until Discontinued, Routine Given 01/05/2020 8:57 AM CDT 1 tablet Given 01/04/2020 9:23 AM CDT 1 tablet Medication Order MAR Action Action Date Dose Rate Site amLODIPine (NORVASC) tablet 5 mg Given 12/30/2019 9:08 AM CDT 5 mg 5 mg, Enteral, DAILY, First dose on Thu12/27/19 at 0900, Until Discontinued, Routine Given 12/29/2019 9:29 AM CDT 5 mg Given 12/28/2019 8:08 AM CDT 5 mg aspirin suppository 300 mg Given 12/24/2019 2:41 PM CDT 300 mg 300 mg, Rectal, ONCE, 1 dose, 12/24/19 at 1500, GAVI barium sulfate (LIQUID E-Z PAQUE) 60 % (w/v) Given 0 10:40 AM CDT 40 g oral suspension 40 g 40 g, Oral, ONCE, 1 dose, Thu01/03/20 at 1045, Routine barium sulfate-NO CHARGE- (VARIBAR NECTOR) 40 Given 10:45 AM CDT 40 mL % (w/v) oral suspension 40 mL 40 mL, Oral, ONCE, 1 dose, Thu01/03/20 at 1045, Routine cefTRIAXone (ROCEPHIN) 2,000 mg in NaCl Given 01/09/2020 12:31 P M CDT 2,000 mg 0.9% (NS) 100 mL MINI-BAG 2,000 mg, IV Piggyback, Q24H ABX, First dose on 01/09/20 at 1100, Until Discontinued, 100 mL, Reason for Anti-Infective: Documented Infection, Documented Infection Site: Urine, Duration of Therapy: 7 days clopidogreL (PLAVIX) tablet 75 mg Given 12/25/2019 8:16 AM CDT 75 mg 75 mg, Oral, DAILY, First dose on Thu12/25/19 at 0900, Until Discontinued, Routine clopidogreL (PLAVIX) tablet 75 mg Given 12/27/2019 7:46 AM CDT 75 mg 75 mg, Enteral, DAILY, First dose (after last modification) on 12/26/19 at 0900, Until Discontinued, Routine Given 12/26/2019 8:08 AM CDT 75 mg FENTanyl PF (SUBLIMAZE (PF)) injection Given 12/30/2019 6:13 PM CDT 50 mcg Slow IV Push, PRN, Starting Thu12/30/19 at 1813, Until Thu12/30/19 at 1813, Routine glucagon (GLUCAGEN DIAGNOSTIC KIT) injec tion Given 12/30/2019 6:12 PM CDT 1 mg Intravenous, PRN, Starting Thu12/30/19 at 1812, Until Thu12/30/19 at 1812, Routine glycopyrrolate (ROBINUL) injection 0.1 m g Given 12/29/2019 5:15 PM CDT 0.1 mg 0.1 mg, Slow IV Push, ONCE, 1 dose, [place] 12/29/19 at 1745, Routine iohexoL (OMNIPAQUE 300-50 mL)) injection 50 Given 12/30/2019 7:15 PM CDT 50 mL mL 50 mL, Injection, ONCE, 1 dose, 12/30/19 at 1915, Routine iohexol (OMNIPAQUE 350 BULK-100 mL) Given 12/24/2019 5:43 PM CD T 100 mL injection 100 mL 100 mL, Intravenous, ONCE, 1 dose, 12/24/19 at 1800, Routine iohexol (OMNIPAQUE 350 BULK-100 mL) Given 01/09/2020 3:48 PM CD T 100 mL injection 100 mL 100 mL, Intravenous, ONCE, 1 dose, 01/09/20 at 1600, Routine ipratropium (ATROVENT) 0.02 % nebulizer Given 12/28/2019 8:10 A M CDT 0.5 mg solution 0.5 mg 0.5 mg, Inhalation, TID, First dose on Thu12/27/19 at 2000, Until Discontinued, Routine Given 12/27/2019 8:05 PM CDT 0.5 mg ipratropium (ATROVENT) 0.02 % nebulizer Given 12/29/2019 8:50 A M CDT 0.5 mg solution 0.5 mg 0.5 mg, Inhalation, QID, First dose (after last modification) on Thu12/28/19 at 1200, Until Discontinued, Routine Given 12/28/2019 12:56 PM CDT 0.5 mg ipratropium-albuteroL (DUONEB) 0.5 mg-3 mg(2.5 Given 1 7:49 PM CDT 3 mL mg base)/3 mL nebulizer solution 3 mL 3 mL, Inhalation, QID, First dose on Danay 12/29/19 at 1600, Until Discontinued, Routine KCL 20 mEq/15 mL solution 40 mEq Given 12/28/2019 8:08 AM CDT 40 mEq 40 mEq, Enteral, ONCE, 1 dose, [facility] 12/28/19 at 0830, Routine levETIRAcetam (KEPPRA) 750 mg in NaCl 0.9% Given 12/28/2019 8:07 AM CDT 750 mg (NS) 100 mL IV infusion 750 mg, IV Infusion, Q12H, First dose (after last reorder) on [place] 12/25/19 at 2000, Until Discontinued, 100 mL Given 12/27/2019 8:03 PM CDT 750 mg Given 12/27/2019 7:43 AM CDT 750 mg levETIRAcetam (KEPPRA) in NACL (ISO-OS) Given 12/25/2019 8:16 A M CDT 1,000 mg 1,000 mg/100 mL RTU 1,000 mg, IV Infusion, ONCE, 1 dose, [place] 12/25/19 at 0915, 100 mL lisinopriL (PRINIVIL,ZESTRIL) tablet 10 mg Given 01/02/2020 7:35 PM CDT 10 mg 10 mg, Enteral, BID, First dose (after last modification) on Thu12/26/19 at 2000, Until Discontinued, Routine Given 01/02/2020 7:47 AM CDT 10 mg Given 01/01/2020 9:16 PM CDT 10 mg lisinopriL (PRINIVIL,ZESTRIL) tablet 5 m g Given 12/26/2019 10:24 AM CDT 5 mg 5 mg, Enteral, DAILY, First dose on Thu12/26/19 at 0715, Until Discontinued, Routine Given 12/26/2019 8:08 AM CDT 5 mg LORazepam (ATIVAN) injection 0.5 mg Given 12/24/2019 12:48 PM CDT 0.5 mg 0.5 mg, Slow IV Push, ONCE, 1 dose, 12/24/19 at 1330, GAVI LORazepam (ATIVAN) injection 1 mg Given 12/26/2019 3:49 PM CDT 1 mg 1 mg, Slow IV Push, ONCE, 1 dose, 12/26/19 at 1645, Routine LORazepam (ATIVAN) injection 2 mg Given 12/25/2019 8:15 AM CDT 2 mg 2 mg, Slow IV Push, ONCE, 1 dose, 12/25/19 at 0915, Routine LORazepam (ATIVAN) injection 2 mg Given 12/26/2019 10:25 AM CDT 2 mg 2 mg, Slow IV Push, ONCE, 1 dose, 12/26/19 at 1015, Routine LORazepam (ATIVAN) injection 2 mg Given 12/27/2019 8:29 AM CDT 2 mg 2 mg, Slow IV Push, ONCE, 1 dose, 12/27/19 at 0830, Routine magnesium sulfate in water 2 gram/50 mL (4 %) New Bag 7:42 AM CDT 2 g infusion 2 g 2 g, IV Piggyback, ONCE, 1 dose, 12/27/19 at 0815, Routine midazolam (VERSED) injection Given 12/30/2019 6:13 PM CDT 1 mg IV Push, PRN, Starting Thu12/30/19 at 1813, Until Thu12/30/19 at 1813, Routine NaCl 0.9% (NS) 1000 mL + KCL 20 mEq New Bag 12/25/2019 6:43 PM CDT 75 mL/hr IV Infusion, at 75 mL/hr, CONTINUOUS, Starting 12/24/19 at 1630, Until 12/26/19 at 0910, Routine New Bag 12/24/2019 4:51 PM CDT 75 mL/hr NaCl 0.9% (NS) IV infusion 1,000 New Bag 12/28/2019 2:37 AM C DT 1,000 mL 100 mL/hr mL at 100 mL/hr, IV Infusion, CONTINUOUS, Starting 12/28/19 at 0330, Until Danay 12/29/19 at 1204, Routine niCARdipine (CARDENE I.V.) 40 Restarted 12/24/2019 9:39 PM CDT 2.5 mg/hr 12.5 mL/hr mg in 200 mL 0.83% Sodium Chloride (RTU) infusion 2.5-15 mg/hr (12.5-75 mL/hr), IV Infusion, TITRATE, SBP Goal < 180 mmHg, Starting 12/24/19 at 1721, Initiate infusion at 2.5 mg/hr. Titrate by 2.5 mg/hr every 5 minutes to 15 minutes as needed to achieve and maintain goal blood pressure. Maximum dose = 15 mg/hr. If goal not maintained at maximum allowed dose, contact prescriber., New Bag 12/24/2019 6:18 PM CDT 5 mg/hr 25 mL/hr niCARdipine (CARDENE I.V.) 40 mg Restarted 12/27/2019 5:24 AM C DT 5 mg/hr 25 mL/hr in 200 mL 0.83% Sodium Chloride (RTU) infusion 2.5-15 mg/hr (12.5-75 mL/hr), IV Infusion, TITRATE, SBP goal - 120-160, Starting 12/25/19 at 0802, Initiate infusion at 2.5 mg/hr. Titrate by 2.5 mg/hr every 5 minutes to 15 minutes as needed to achieve and maintain goal blood pressure. Maximum dose = 15 mg/hr. If goal not maintained at maximum allowed dose, contact prescriber., Rate Change 12/26/2019 7:16 AM CDT 5 mg/hr 25 mL/hr Restarted 12/26/2019 6:31 AM CDT 2.5 mg/hr 12.5 mL/hr piperacillin-tazobactam (ZOSYN) 3.375 g in Given 01/01 1:00 PM CDT 3.375 g NaCl 0.9% (NS) 100 mL MINI-BAG 3.375 g, IV Piggyback, Q6H ABX, First dose on Danay 12/29/19 at 1300, Until Discontinued, 100 mL, Reason for Anti-Infective: Empiric Therapy for Suspected Infection, Empiric Therapy Site: Respiratory, Duration of therapy: 72 hours Given 01/02/2020 7:47 AM CDT 3.375 g Given 01/02/2020 3:01 AM CDT 3.375 g QUEtiapine (SEROQUEL) tablet 25 mg Given 12/27/2019 3:29 AM CDT 25 mg 25 mg, Enteral, ONCE, 1 dose, 12/27/19 at 0430, Routine risperiDONE (RISPERDAL) tablet 1 mg Given 12/29/2019 9:15 PM CDT 1 mg 1 mg, Enteral, BID, First dose (after last modification) on Thu12/28/19 at 2000, Until Discontinued, Routine Given 12/29/2019 9:29 AM CDT 1 mg Given 12/28/2019 8:24 PM CDT 1 mg risperiDONE (RISPERDAL) tablet 2 mg Given 12/26/2019 8:08 AM CDT 2 mg 2 mg, Enteral, QAM, First dose on Thu12/25/19 at 0900, Until Discontinued, Routine Given 12/25/2019 8:16 AM CDT 2 mg risperiDONE (RISPERDAL) tablet 2 mg Given 12/28/2019 8:09 AM CDT 2 mg 2 mg, Enteral, BID, First dose (after last modification) on 12/26/19 at 2000, Until Discontinued, Routine Given 12/27/2019 8:03 PM CDT 2 mg Given 12/27/2019 7:47 AM CDT 2 mg scopolamine transdermal (TRANSDERM-SCOP) Given 01/03/2020 10:00 AM CDT 1.5 mg patch 1.5 mg 1.5 mg, Topical, Administer over 72 Hours, Q72H, First dose on Thu12/28/19 at 1000, Until Discontinued, Routine Given 12/31/2019 10:00 AM CDT 1.5 mg Given 12/28/2019 1:26 PM CDT 1.5 mg documented in this encounter Additional Health Concerns Infection Onset Date Last Indicated Resolved Time COVID-19 Rule Out 12/24/2019 12/24/2019 12/24/2019 2: 46 PM CDT documented as of this encounter Insurance Payer Benefit Plan / Subscriber ID Effective Phone Address T ype Group Dates CHARLES ANDREA [id number] 2015-Pres [address] Medic aid HEALTHCARE [place] [id number] MANAGED MEDICAID [place], [place] documented as of this encounter
--- OUTSIDE RECORDS SUMMARY | 2020-03-10 03:49 | XMS REPORT | Summary of Care ---
:1960 Author Organization [facility] - Health Address [address] [place] [address] Care Team Providers Name Role Phone Gatito Chauhan MD Primary Care Provider Zeke Márquez Insurance Hmo Norah Dubose RNsupervisor waterworks Reason for Visit Reason Comments Transition Of Care Encounter Details Date Type Department Care Team Description 01/12/2020 Transition of Care [facility] Melinda Parr Tr [facility]- RN [address] [id number] Allergies No Known Allergiesdocumented as of this encounter (statuses as of 01/12/2020) Medications Medication Sig Dispensed Refills Start Date End Date Status amLODIPine 10 mg Take 1 tablet 30 tablet 0 01/04/2020 Active tabletIndications: through enteral Altered mental status, tube daily. unspecified altered mental status type atorvastatin 40 mg Take 1 tablet 30 tablet 0 01/03/2020 Active tabletIndications: through enteral Altered mental status, tube at bedtime. unspecified altered mental status type risperiDONE 0.5 mg Take 1 tablet 60 tablet 0 01/03/2020 Active tabletIndications: through enteral Altered mental status, tube 2 (two) unspecified altered times daily. mental status type Polyethylene Glycol Take 1 Packet 60 Packet 0 01/03/2020 Active 3350 17 gram through enteral powderIndications: tube 2 (two) Altered mental status, times daily. unspecified altered mental status type famotidine 20 mg Take 1 tablet by 30 tablet 10 01/03/2020 Active tabletIndications: mouth 2 (two) Altered mental status, times daily. unspecified altered mental status type lisinopriL 40 mg Take 1 tablet by 30 tablet 11 01/03/2020 Active tabletIndications: mouth daily. Altered mental status, unspecified altered mental status type clopidogreL 75 mg Take 1 tablet 30 tablet 2 01/11/2020 021 Active tabletIndications: through enteral Altered mental status, tube daily for unspecified altered 90 days. mental status type aspirin 81 mg chewable Take 1 tablet 30 tablet 11 01/11/2020 Active tabletIndications: through enteral Altered mental status, tube daily. unspecified altered mental status type levETIRAcetam 100 Take 7.5 mL 473 mL 2 01/11/2020 Active mg/mL oral through enteral solutionIndications: tube 2 (two) Altered mental status, times daily. unspecified altered mental status type documented as of this encounter (statuses as of 01/12/2020) Active Problems Problem Noted Date Respiratory distress 12/29/2019 E44.0 Moderate protein calorie malnutrition 12/27/2019 Cocaine abuse 12/25/2019 At risk for seizures 12/25/2019 Acute ischemic left MCA stroke 12/24/2019 Coronary artery disease without angina pectoris 2015 HTN (hypertension) 07/23/2015 Chest pain 07/22/2015 PAD (peripheral artery disease) 05/10/2015 documented as of this encounter (statuses as of 01/12/2020) Social History Tobacco Use Types Packs/Day Years [...] Signs Not on filedocumented in this encounter Miscellaneous Notes Telephone Encounter - Melinda Parr RN - 01/12/2020 4:59 PM CDT TRANSITIONAL CARE MANAGEMENT ASSESSMENT 01/12/2020 Funmilayo Mcmillan [id number] Funmilayo Mcmillan is a 59 year old /White female was admitted on 12/24/[address] She was discharged on 01/11/20 with discharge disposition of HR- Routine Discharge. Admitting Physician: Leland Richards Discharge Diagnosis: Acute Ischemic Stroke Stroke etiology: Vessel to vessel embolism, LVO Localization and/or Vascular Territory: left MCA IV Alteplase: not given Did patient and/or family agree to IV Alteplase? no Reason IV Alteplase was not given: LSN >4hr Endovascular Intervention: not done Linked Episodes Type: Episode: Status: Noted: Resolved: Last update: Updated by: TRANSITION OF CARE TCM Active 01/11/2020 01/12/2020 12:04 PM Melinda Parr RN Comments:01/11/2020 TCM Iov-pmmx-gr-face outreach documentation: Discharge Assessment Chart Assessed: 01/12/20 TCM Outreach Completed: 01/12/20 Do you have a few minutes to speak with me about how you are doing at home?: Yes(Spoke with patient's daughter) Discharge Instructions Do you understand your at-home instructions?: Yes Medications Have you filled your prescriptions and do you have them in your home? : Yes Do you know how to take your medications?: Yes Supplies Did you receive applicable home medical supplies/equipment?: Yes Do you understand how to use the medical supplies/equipment?: Yes Follow Up Appointment Has a follow up appointment been scheduled?: Yes Do you have any questions about your follow up appointments?: No Home Health Assistance Has the home health nurse contacted you since you've been home?: Yes Survey - Recognition Is there anything you would like to share about your recent hospitalization, or anyone you would like to recognize?: No Do you have any suggestions for improvement?: No Do you have any other questions or concerns at this time?: Yes(Patient's daughter had concerns aboutgetting more diapers and chucks.) Future Appointments: Future Appointments Provider Department Dept Phone 01/23/2020 1:00 PM Bev Chauhan MD [facility] Pediatric and Adult Primary Care- [phone] 01/31/2020:15 AM Dorene Hart MD [facility] [phone] 03/14/2020 10:30 AM [facility] Interventional Radiology [phone] 06/11/2020 2:20 PM Daya Love MD [facility] [phone] Telephone Encounter - Melinda Parr RN - 01/12/2020 12:04 PM CDTCare Transition CM made f/u call to pt post-discharge. No response and call went to voicemail. CM left a discreet message with purpose of call and CM's call back information. Melinda Parr RN, BSN Machine Set Up Operator-MARGARET TEAM [phone] documented in this encounter Plan of Treatment Date Type Specialty Care Team Description 01/23/2020 Office Visit Internal Medicine Ryann Chauhan MD [address] [place] [address] [address] [place], [place] [address] [phone] 01/31/2020 Office Visit Vascular Surgery Gerard Hart MD [address] [place] [address] [phone] 03/14/2020 Appointment Radiology Renan Marcial MD [address] [place] [address] 77 [phone] 06/11/2020 Office Visit Cardiology Daya Love M D [address] [place] [address] [address] [place], [place] [address] [phone] Health Maintenance Due Date Last Done Comments [...] on patient's age to complete this to [facility] documented as of this encounter Goals Goal Patient Goal Associated Recent Patient-Stated? Author Type Problems Progress Quit using Tobacco Use No [place], tobacco Roberta (cigarettes, smokeless, etc) documented as of this encounter Results Not on filedocumented in this encounter Additional Health Concerns Infection Onset Date Last Indicated Resolved Time Contact- MRSA 01/12/2020 01/12/2020 documented as of this encounter Insurance Payer Benefit Plan / Subscriber ID Effective Phone Address T [facility] Group Dates EMRE ANDREA [id number] 2015-Pres [address] Medic aid HEALTHCARE [place]ARE [place] [id number] MANAGED MEDICAID [place], [place] documented as of this encounter
--- OUTSIDE RECORDS SUMMARY | 2020-03-10 03:49 | XMS REPORT | Summary of Care ---
:1960 Author Organization [facility] Address [address] [place] [address] Care Team Providers Name Role Phone Gatito Chauhan MD Primary Care Provider Zeke Márquez Insurance Hmo Norah Dubose RNevents manager Reason for Visit Reason Comments Transportation Encounter Details Date Type Department Care Team Description 01/12/2020 Patient Outreach [facility] Pediatric Joanna Blount, GUT P[employer]ER Transportation and Adult Primary [address] [place] [address] [address], [address] [place] [address] Allergies No Known Allergiesdocumented as of this encounter (statuses as of 01/18/2020) Medications Medication Sig Dispensed Refills Start Date [...] as of this encounter (statuses as of 01/18/2020) Active Problems Problem Noted Date Respiratory distress 12/29/2019 E44.0 Moderate protein calorie malnutrition 12/27/2019 Cocaine abuse 12/25/2019 At risk for seizures 12/25/2019 Acute ischemic left MCA stroke 12/24/2019 Coronary artery disease without angina pectoris 2015 HTN (hypertension) 07/23/2015 Chest pain 07/22/2015 PAD (peripheral artery disease) 05/10/2015 documented as of this encounter (statuses as of 01/18/2020) Social History Tobacco Use Types Packs/Day Years [...] Signs Not on filedocumented in this encounter Progress Notes Nikki Blount LMSW - 01/12/2020 2:36 PM CDTSocial Work Note Content Strategist (ROB) contacted Patient's insurance provider (Tatiana with [employer] p: [phone]: [phone]) regarding EMS prior auth request sent (01/13/20). Ins advised "not found in system": referred to Member services (p: [phone]). Ins advised patient is active in system, no auth located, referred to [place] Auth Dept. SW spoke with Ins Auth Dept (Won p: [phone] x [phone] f: [phone]) to review prior auth form submitted/authorization for EMS transport. Ins advised to refax forms/clinicals and original fax conformation sheet for processing. Ins explained Auth dept will process requests ~24-48 hours; call back for updates (01/19/20 after 12pm). No new needs identified at present. SW services complete. Nikki Blount LMSW, [facility] Content Strategist- Clearing Hand Management [facility] Pager: [phone] Em: [email or web address] ikki Blount LMSW - 01/12/2020 2:36 PM CDTSocial Work Note Content Strategist (ROB) sent EMS prior auth request to Patient's insurance provider ([employer] p: [phone] f: [phone]). No new needs identified at present. SW services complete. Nikki Blount LMSW, [facility] Content Strategist- Clearing Hand Management [facility] Pager: [phone] Em: [email or web address] ikki Cordero LMSW - 01/12/2020 2:36 PM CDTSocial Work Note Content Strategist (ROB) received handoff from inpatient Pulmonary Physician (Aniyah Damon) regarding patients discharge needs. SW attempted to contact patients Interdisciplinary Professor (Dalila with [employer] p: [phone] x [phone]) regarding EMS transportation to hospital discharge follow up appoiment (01/23/20 at 1pm); leftmessage. SW will continue attempts to contact; coordinate EMS transport for clinic appointment. Nikki Blount LMSW, [facility] Content Strategist- Clearing Hand Management [facility]- Community Based [facility] [place] Pager: [phone] Em: [email or web address] documented in this encounter Plan of Treatment Date Type Specialty Care Team Description 01/23/2020 Office Visit Internal Medicine Ryann Chauhan MD [address] [address] 01/31/2020 Office Visit Vascular Surgery Gerard Hart MD [address] [place] [address] [phone] 03/14/2020 Appointment Radiology Renan Marcial MD [address] [place] [address] [phone] 06/11/2020 Office Visit Cardiology Daya Love M D [address] [place] [address] [address] [place] [address] Health Maintenance Due Date Last Done Comments PNEUMOCOCCAL 0-64 YEARS 1966 COMBINED SERIES (1 of 1 - PPSV23) COLON CANCER SCREENING ANNUAL 2011 FIT/FOBT COLON [...] HEPATITIS C (HCV) SCREEN Completed 10/01/2018, 12/31/2017 documented as of this encounter Goals Goal Patient Goal Associated Recent Patient-Stated? Author Type Problems Progress Quit using Tobacco Use No [place], tobacco Roberta (cigarettes, smokeless, etc) documented as of this encounter Results Not on filedocumented in this encounter Additional Health Concerns Infection Onset Date Last Indicated Resolved Time Contact- MRSA 01/12/2020 01/12/2020 documented as of this encounter Insurance Payer Benefit Plan / Subscriber ID Effective Phone Address T [facility] Group Dates CHARLES ANDREA [id number] 2015-Pres [address] BOX Medic aid HEALTHCARE - [place]CARE [place] [id number] MANAGED MEDICAID [place], [place] documented as of this encounter
--- OUTSIDE RECORDS SUMMARY | 2020-03-10 03:49 | XMS REPORT | Summary of Care ---
:1960 Author Organization [facility] - Health Address [address] [place] [address] Care Team Providers Name Role Phone Gatito Hook MD Primary Care Provider Zeke Márquez Insurance Hmo Norah Dubose RNzumba instructor Reason for Visit Reason Comments Notification Encounter Details Date Type Department Care Team Description 01/10/2020 Telephone [facility] Pediatric and Janiya Hook, Lisa Adult Primary Care- MD Aske[place] [address] [place] [address] [address] [address] [address] [place] [address] [place] [address] [phone] Allergies No Known Allergiesdocumented as of this [...] mental status, unspecified altered mental status type documented [...] this encounter Miscellaneous Notes Telephone Encounter - Heather Galvez RN - 01/12/2020 10:18 AM CDTInformed HH that will follow patient. elephone Encounter - Ginny Patel - 01/12/2020 8:15 AM CDTRachelle from [facility] calling regarding the below encounter. Kathy is stating that they are needing to know as soon as possible due to her being on the schedule for today. elephone Encounter - Chayo Guerra - 01/11/2020 10:55 AM CDTLori is calling back for an answer patient is being discharged today. Please advise elephone Encounter - Elizabeth Pisano MA - 01/10/2020 3:38 PM CDT1 3:39 PM Routing to to review and advise. Elizabeth Pisano MA 01/10/2020 3:39 PM elephone Encounter - Vianey Peterson - 01/10/2020 3:36 PM CDTLori with [facility] is wanting to know if DR HOOK will follow patient. Pt is being released 01/11/20. documented in this encounter Plan of Treatment Date Type Specialty Care Team Description 01/23/2020 Office Visit Internal Medicine Ryann Hook MD [address] [place] [address] [phone] 01/31/2020 Office Visit Vascular Surgery Gerard Hart MD [address] [place] [address] [phone] 03/14/2020 Appointment Radiology Renan Marcial MD [address] [place] [address] 77 [phone] 06/11/2020 Office Visit Cardiology Daya Love M D [address] [place] [address] [address] [place], [place] [address] [phone] Health Maintenance Due Date Last Done Comments [...] patient's age to complete this to [facility] documented as of this encounter Goals Goal Patient Goal Associated Recent Patient-Stated? Author Type Problems Progress Quit using Tobacco Use No [place], tobacco Roberta (cigarettes, smokeless, etc) documented as of this encounter Results Not on filedocumented in this encounter Insurance Payer Benefit Plan / Subscriber ID Effective Phone Address T [facility] Group Dates EMRE ANDREA [id number] 2015-Pres [address] Medic aid HEALTHCARE [place]ARE [place] [id number] MANAGED MEDICAID [place] documented as of this encounter
--- OUTSIDE RECORDS SUMMARY | 2020-03-10 03:49 | XMS REPORT | Summary of Care ---
:1960 Author Organization [facility] - [address] [address] Care Team Providers Name Role Phone Gatito Chauhan MD Primary Care Provider Zeke Márquez Insurance Hmo Norah Dubose RNheel nail rasper Reason for Visit Reason Comments DME Follow-up Transportation Encounter Details Date Type Department Care Team Description 01/16/2020 Patient Outreach [facility] Funmilayo Dubose RN DME; Follow-up; [address] [address] Allergies No Known Allergiesdocumented as of this encounter (statuses as of 01/16/2020) Medications Medication Sig Dispensed Refills Start Date [...] as of this encounter (statuses as of 01/16/2020) Active Problems Problem Noted Date Respiratory distress 12/29/2019 E44.0 Moderate protein calorie malnutrition 12/27/2019 Cocaine abuse 12/25/2019 At risk for seizures 12/25/2019 Acute ischemic left MCA stroke 12/24/2019 Coronary artery disease without angina pectoris 2015 HTN (hypertension) 07/23/2015 Chest pain 07/22/2015 PAD (peripheral artery disease) 05/10/2015 documented as of this encounter (statuses as of 01/16/2020) Social History Tobacco Use Types Packs/Day Years [...] on filedocumented in this encounter Progress Notes Funmilayo Dubose RN - 01/16/2020 12:55 PM CSTSummary: CHP f/u on ambulance auth from Andrea: CHP f/u on ambulance auth from Andrea: CM called Emre and spoke with Keisha. Keisha stated the ambulance auth has been approved from 01/04/20rough 04/05/20 and will need to be renewed in March. CM called the patient's daughter, Elyssa, andprovided all information, including the number to [facility] so she could call and arrange transportation. CM recommended she sets up MyChart for the patient so she will have all notes, labs, and appointment info readily available. CM encouraged her to call for further support/questions/concerns. Andrea: [phone] Ambulance Auth # [id number] [facility] [phone] GASTON Mojica, RN, [facility] Outpatient Health And Human Performance ProfessorVehicle Check In ClerkEcu Health [facility] O: [phone] M: [phone] documented in this encounter Plan of Treatment Date Type Specialty Care Team Description 01/23/2020 Office Visit Internal Medicine Ryann Chauhan MD [address] [place] [address] [address] [address] [phone] 01/31/2020 Office Visit Vascular Surgery Gerard Hart MD [address] [place] [address] 77 [phone] 03/14/2020 Appointment Radiology Renan Marcial MD [address] [place] [address] 77 555 06/11/2020 Office Visit Cardiology Daya Love M D [address] [place] [address] [address] [place], [place] [address] [phone] Health Maintenance Due Date Last Done Comments [...] Problems Progress Quit using Tobacco Use No Garland, tobacco Roberta (cigarettes, smokeless, etc) documented as of this encounter Results Not on filedocumented in this encounter Additional Health Concerns Infection Onset Date Last Indicated Resolved Time Contact- MRSA 01/12/2020 01/12/2020 documented as of this encounter Insurance Payer Benefit Plan / Subscriber ID Effective Phone Address T [facility] Group Dates EMRE ANDREA [id number] 2015-Pres [address] Medic aid [place] [id number] MANAGED MEDICAID [place] documented as of this encounter
--- OUTSIDE RECORDS SUMMARY | 2020-03-10 03:49 | XMS REPORT | Summary of Care ---
:1960 Author Organization [facility] Address [address] [place] [address] Care Team Providers Name Role Phone Gatito Chauhan MD Primary Care Provider Zeke Márquez Insurance Hmo Norah Dubose vacuum cleaner mechanic Reason for Visit Reason Comments DME [facility] pads/diapers [facility] F/U [facility] Encounter Details Date Type Department Care Team Description 01/13/2020 Patient Outreach [facility] Funmilyao Dubose RN DME ([address]/[facility] ); [facility] F/; [place] [address] 605 [facility] [phone] Allergies No Known Allergiesdocumented as of this encounter (statuses as of 01/13/2020) Medications Medication Sig Dispensed Refills Start Date [...] as of this encounter (statuses as of 01/13/2020) Active Problems Problem Noted Date Respiratory distress 12/29/2019 E44.0 Moderate protein calorie malnutrition 12/27/2019 Cocaine abuse 12/25/2019 At risk for seizures 12/25/2019 Acute ischemic left MCA stroke 12/24/2019 Coronary artery disease without angina pectoris 2015 HTN (hypertension) 07/23/2015 Chest pain 07/22/2015 PAD (peripheral artery disease) 05/10/2015 documented as of this encounter (statuses as of 01/13/2020) Social History Tobacco Use Types Packs/Day Years [...] encounter Progress Notes Funmilayo Dubose RN - 01/13/2020 11:23 AM CDTCHP f/u: CM called patient's daughter to f/u. She answered and stated she is needing more incontinence supplies (diapers and bed pads). CM called IP and spoke with Heather. She stated it incontinence supplieswas not written on HH order. CM called Andrea to and left a vm with REY RN. Emre Villasenor [phone], [phone]. CM called Dr. Chauhan's office requesting an order for incontinence supplies to be sent to [facility]. CM will f/u prn. GASTON Mojica, RN, [facility] Outpatient Gis Web DeveloperSelect Specialty Hospital [facility] O: [phone] M: [phone] Funmilayo Lora RN - 01/13/2020 11:23 AM CDTCHP f/u: CM called patient's daughter to f/u. She answered and stated she is needing more incontinence supplies (diapers and bed pads). CM called IP and spoke with Heather. She stated it incontinence supplieswas not written on HH order. CM called Andrea to and left a vm with REY URIOSTEGUI. Emre Villasenor [phone], [id number]. CM called Dr. Chauhan's office requesting an order for incontinence supplies to be sent to [facility]. CM will f/u prn. GASTON Mojica, RN, [facility] Outpatient Gis Web DeveloperSelect [facility] O: [phone] M: [phone] documented in this encounter Plan of Treatment Date Type Specialty Care Team Description 01/23/2020 Office Visit Internal Medicine Ryann Chauhan MD [address] [place], [place] [address] 15 [phone] 01/31/2020 Office Visit Vascular Surgery Gerard Hatr MD [address] [place] [address] [phone] 03/14/2020 Appointment Radiology Renan Marcial MD [address] [place] [address] 77 555 06/11/2020 Office Visit Cardiology Daya Love M D 146 [facility] [address] [place], [place] [address] [phone] Health Maintenance Due Date Last Done Comments [...] on patient's age to complete this to [facility] documented as of this encounter Goals Goal Patient Goal Associated Recent Patient-Stated? Author Type Problems Progress Quit using Tobacco Use No Huhg, tobacco Roberta (cigarettes, smokeless, etc) documented as of this encounter Results Not on filedocumented in this encounter Additional Health Concerns Infection Onset Date Last Indicated Resolved Time Contact- MRSA 01/12/2020 01/12/2020 documented as of this encounter Insurance Payer Benefit Plan / Subscriber ID Effective Phone Address T e Group Dates EMRE ANDREA [id number] 2015-Pres P O BOX Medic aid HEALTHCARE [place]ARE [place] [id number] MANAGED MEDICAID [place] documented as of this encounter
--- OUTSIDE RECORDS SUMMARY | 2020-03-10 03:49 | XMS REPORT | Summary of Care ---
:1960 Author Organization [facility] Address [address] [place] [address] Care Team Providers Name Role Phone Gatito Chauhan MD Primary Care Provider Zeke Márquez Insurance Hmo Norah Dubose RNfrench translator Reason for Visit Reason Comments Transportation Encounter Details Date Type Department Care Team Description 01/12/2020 Patient Outreach [facility] Pediatric Joanna Blount, HARDENING MACHINE OPERATOR HELPER Transportation and Adult Primary [address] [place], [place] [address] Drive, [address] [place] [address] Allergies No Known Allergiesdocumented as [...] - 01/12/2020 2:36 PM CDTSocial Work Note 411 Directory Assistance Operator (ROB) received handoff from inpatient Procurement Manager (Aniyah Damon) regarding patients discharge needs. SW attempted to contact patients Shovel Logger (Dalila with Andrea Medicaid p: [phone] x [phone]) regarding EMS transportation to hospital discharge follow up appoiment (01/23/20 at 1pm); leftmessage. SW will continue attempts to contact; coordinate EMS transport for clinic appointment. Nikki Blount LMSW, [facility] 411 Directory Assistance Operator- Dyeing Machine Tender Management [facility] ,[facility] [place] Pager: [phone] Em: [email or web address] documented in this encounter Plan of Treatment Date Type Specialty Care Team Description 01/23/2020 Office Visit Internal Medicine Ryann Chauhan MD 146 [facility] [address] [address] [address] 15 [phone] 01/31/2020 Office Visit Vascular Surgery Gerard Hart MD [address] [place] [address] 77 [phone] 03/14/2020 Appointment Radiology Renan Marcial MD [address] [place] [address] 77 [phone] 06/11/2020 Office Visit Cardiology Daya Love M D 146 [facility] [address] [place] [address] [phone] Health Maintenance Due Date Last Done Comments [...] on patient's age to complete this to [facility] documented as of this encounter Goals [...] Address T ype Group Dates EMRE ANDREA [id number] 2015-Pres P O BOX Medic aid HEALTHCARE - [place]CARE [place] [id number] MANAGED MEDICAID [place] documented as of this encounter
--- OUTSIDE RECORDS SUMMARY | 2020-03-10 03:49 | XMS REPORT | Summary of Care ---
:1960 Author Organization [facility] Address [address] [place] [address] Care Team Providers Name Role Phone Gatito Chauhan MD Primary Care Provider Zeke Márquez Insurance Hmo Norah Dubose RNswitchboard operator supervisor Reason for Visit Reason Comments Transportation Encounter Details Date Type Department Care Team Description 01/12/2020 Patient Outreach [facility] Joanna Blount, FUNERAL PREARRANGEMENT COUNSELOR Transportation and Adult Primary [address] [place] [address] [address], [address] [place] [address] Allergies No Known Allergiesdocumented as [...] - 01/12/2020 2:36 PM CDTSocial Work Note Banquet Set Up Person (ROB) sent EMS prior auth request to Patient's insurance provider (Andrea Medicaid p: [phone] f: [phone]). No new needs identified at present. SW services complete. Nikki Blount LMSW, [facility] Banquet Set Up Person- Record Cutter Management [facility] Pager: [phone] Em: [email or web address] Nikki jung LMSW - 01/12/2020 2:36 PM CDTSocial Work Note Banquet Set Up Person (ROB) received handoff from inpatient Digital Sales Assistant (Aniyah Damon) regarding patients discharge needs. SW attempted to contact patients Edi Analyst (Dalila with Andrea Medicaid p: [phone] x [phone]) regarding EMS transportation to hospital discharge follow up appoiment (01/23/20 at 1pm); leftmessage. SW will continue attempts to contact; coordinate EMS transport for clinic appointment. Nikki Blount LMSW, [facility] Banquet Set Up Person- Record Cutter Management [facility] Pager: [phone] Em: [email or web address] documented in this encounter Plan of Treatment Date Type Specialty Care Team Description 01/23/2020 Office Visit Internal Medicine Ryann Chauhan MD [address] [facility] 103 [place], [place] [address] [phone] 01/31/2020 Office Visit Vascular Surgery Gerard Hart MD [address] [place] [address] 77 [phone] 03/14/2020 Appointment Radiology Renan Marcial MD [address] [place] [address] [place], [place] [phone] 06/11/2020 Office Visit Cardiology Daya Love M D [address] [place] [address] 15 [phone] Health Maintenance Due Date Last Done Comments [...] on patient's age to complete this to [facility] documented as of this encounter Goals [...] Address T ype Group Dates EMRE ANDREA [id number] 2015-Pres P O BOX Medic aid HE[place]CARE [place]ARE [place] [id number] MANAGED MEDICAID [place] documented as of this encounter
--- OUTSIDE RECORDS SUMMARY | 2020-03-10 03:49 | XMS REPORT | Summary of Care ---
:1960 Author Organization [facility] - [address] [address] Care Team Providers Name Role Phone Gatito Chauhan MD Primary Care Provider Zeke Márquez Insurance Hmo Norah Dubose RNgas distribution supervisor Reason for Visit Reason Comments DME Follow-up Transportation Encounter Details Date Type Department Care Team Description 01/16/[address] [facility] Funmilayo Dubose RN DME; Follow-up; [address] [address] Allergies No Known Allergiesdocumented as [...] CSTSummary: CHP f/u on ambulance auth from Andrea and incontinence supplies: CHP f/u on ambulance auth from Andrea: [...] notes, labs, and appointment info readily available. Re: incontinence supplies: Elyssa stated her grandmother was able to collect diapers and bed pads from her jainism voodoo and provided for the patient. CM encouraged her to call for further support/questions/concerns. Andrea: [phone] Ambulance Auth # [id number] [facility] [phone] GASTON Mojica, RN, [facility] Outpatient Route Sales DriverManager CreativeAt[facility] Health O: [phone] M: [phone] documented in this encounter Plan of Treatment Date Type Specialty Care Team Description 01/23/2020 Office Visit Internal Medicine Ryann Chauhan MD [address] [place] [address] [address] [address] 15 [phone] 01/31/2020 Office Visit Vascular Surgery Gerard Hart MD [address] [place] [address] [phone] 03/14/2020 Appointment Radiology Renan Marcial MD [address] [place] [address] 77 555 06/11/2020 Office Visit Cardiology Daya Love M D [address] [place] [address] [address] [place] [address] 15 [phone] Health Maintenance Due Date Last Done Comments [...] Problems Progress Quit using Tobacco Use No Abernathy, tobacco Roberta (cigarettes, smokeless, etc) documented as of this encounter Results Not on filedocumented in this encounter Additional Health Concerns Infection Onset Date Last Indicated Resolved Time Contact- MRSA 01/12/2020 01/12/2020 documented as of this encounter Insurance Payer Benefit Plan / Subscriber ID Effective Phone Address T [facility] Group Dates EMRE ANDREA [id number] 2015-Pres P O BOX Medic aid HEALTHCARE [place]ARE [place] [id number] MANAGED MEDICAID [place] documented as of this encounter
--- OUTSIDE RECORDS SUMMARY | 2020-03-10 03:49 | XMS REPORT | Summary of Care ---
:1960 Author Organization [facility] - [address] [address] Care Team Providers Name Role Phone Gatito Hook MD Primary Care Provider Zeke Márquez Insurance Hmo Norah Dubose rn cardiovascular icu Reason for Visit Reason Comments Referral/consult [facility] Referral Hospital F/U Encounter Details Date Type Department Care Team Description 01/12/2020 Patient Outreach [facility] Funmilayo Dubose, transport coordinator/consult [address] ([facility] Refer ral); [facility] F/U [place], [place] [address] Allergies No Known Allergiesdocumented as of this [...] encounter Progress Notes Funmilayo Dubose RN - 01/12/2020 9:23 AM CDTCHP Referral: 38% Readmit Risk CHP accepted this patient. CM will f/u on patient and her daughter. CM will also communicate [place] discuss setting up care provider services. GASTON Mojica, RN, [facility] Outpatient Water PurifierEchocardiograph TechnicianUnc Health Wayne O: [phone] M: [phone] CHP Handoff I: IDENTITY and Location Patient discharge location/services: Home D: DIAGNOSIS and Current Condition Reason for admission or clinic visit: CVA/ Stroke Brief relevant PMH: 59 years old woman with multiple vascular risk factors including age, HTN, CAD s/p PCIs, PAD and substance abuse is evaluated at [facility] for right hemiplegia, right HH [...] LV thrombus nor showed any interatrial shunt. Patientnoted to havesome improvement in her mental status in form of regarding the examiner but stillcontinuedto haveright hemiplegia and global aphasia.TrendingdownWBCs.Plan: Short duration dual antiplatelet therapy for 3 weeks for aggressive secondary stroke prevention followed by aspirin. Atorvastatin 80mg at bedtime, LDL 109. HbA1c 5.2, continue with aggressive vascular risk factors modification. Evaluation and management of low LVEF/CAD workup as per cardiology team. Continue telemetry. Plan for prolonged cardiac monitoring with 30 days event monitor as outpatient. 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 Routine EEG showed moderate diffuse slowing, focal slowing over theleft hemisphere without any epileptiform discharges or electrographic seizures.Appreciated recommen dations from ID,IR teamandwound care regarding pus discharge from the PEG site.Continue to trendWBCand monitor without antibiotics Chronic Diagnosis: Other stroke E: EVENTS Relevant to CHP/MARGARET Intervention Primary Support System Name/Address/Phone: Primary Contact: Elyssa Scanlon Address:[address] [place] [address] [address] [place] [address] Psychosocial issues and/or concerns resulting in patient being a high risk for re-admission: (e.g. Lack of funding, lack of social support, inability to complete teach back, etc). Patient is bed bound after CVA. aphasia and R sided weakness. Daughter elyssa has completed care givertraining and wants patient to discharge home with her in [place]: [address] [place], [id number] Funding Source: Medicaid HMO: Kyle PCP: (does patient have a PCP or do they need to establish care, include PCP name) Yes: GREY HOOK [facility] Res[facility]: [facility] A: ANTICIPATED and ASSIGNED Needs Anticipated Needs: [...] is Scheduled for 01/23/20 at 1300 with GREY HOOK in [place], [place]. Patient set up with [facility] [address] [facility] [address] [place] [address] (Ph) [phone] (F) [phone] Elyssa Scanlon Mobile has been given glucose and syrup weigher training with PT/OT and Nursing. Meds to bed completed for patient. Patient is discharging with 30 day supply of medications. All DME including WC, Hospital bed, Betzy lift, Jevity Feedings, peg tube supplies, BSC, has all been delivered to patient's Daughter home in [place]. Patient could benefit from store planner from Kyle. I called kyle and left voice mail for CMRN. Kyle Lewis ph [phone], [phone], so she can assist patient with getting provider services set up. L: LEAVE Time for Follow-up Transferring CC/SW name and phone number: Julian Damon [phone] documented in this encounter Plan of Treatment Date Type Specialty Care Team Description 01/23/2020 Office Visit Internal Medicine Ryann Hook MD 146 [facility] Renyn 103 [place], [place] [address] 01/31/2020 Office Visit Vascular Surgery Gerard Hart MD [address] [place] [address] 77 [phone] 03/14/2020 Appointment Radiology Renan Marcial MD [address] [place] [address] 77 555 06/11/2020 Office Visit Cardiology Daya Love M D 146 [facility] [address] [place] [address] 15 Health Maintenance Due Date Last Done [...] / Subscriber ID Effective Phone Address T [facility] Group Dates KYLE ANDREA [id number] 2015-Pres P O BOX Medic aid HEALTHCARE [place]ARE [place] [id number] MANAGED MED[place]ID [place] documented as of this encounter
--- OUTSIDE RECORDS SUMMARY | 2020-03-10 03:50 | XMS REPORT | Summary of Care ---
:1960 Author Organization [facility] Address [address] [place] [address] Care Team Providers Name Role Phone Gatito Chauhan MD Primary Care Provider Zeke Márquez Insurance Hmo Norah Dubose RNcostume shop coordinator Reason for Visit Reason Comments Transportation Encounter Details Date Type Department Care Team Description 01/12/[address] [facility] Pediatric Joanna Blount, REO ASSET MANAGER Transportation and Adult Primary [address] [place] [address] [address], [address] [place] [address] Allergies No Known Allergiesdocumented as of this encounter (statuses as of 01/19/2020) Medications Medication Sig Dispensed Refills Start Date [...] as of this encounter (statuses as of 01/19/2020) Active Problems Problem Noted Date Respiratory distress 12/29/2019 E44.0 Moderate protein calorie malnutrition 12/27/2019 Cocaine abuse 12/25/2019 At risk for seizures 12/25/2019 Acute ischemic left MCA stroke 12/24/2019 Coronary artery disease without angina pectoris 2015 HTN (hypertension) 07/23/2015 Chest pain 07/22/2015 PAD (peripheral artery disease) 05/10/2015 documented as of this encounter (statuses as of 01/19/2020) Social History Tobacco Use Types Packs/Day Years [...] - 01/12/2020 2:36 PM CDTSocial Work Note Assistant Engineer (ROB) contacted Patient's insurance provider (Keisha with [place] [employer] p: [phone] f: [phone]) regarding EMS prior auth request sent (01/13/20). Ins confirmed receipt of request; requires additional information (EMS Provider NPI) and form [place] Medicaid [facility] prior Auth Request (Form F 91929) for authorization completion. SW located/completed form; consulted PCP for completion. SW faxed completed form to [place] [employer] (f: [phone]) . No new needs identified at present. SW services complete. Nikki Blount LMSW, [facility] Assistant Engineer- [employer]que Brusher Management [facility] Pager: [phone] Em: [email or web address] ikki Blount LMSW - 01/12/2020 2:36 PM CDTSocial Work Note Assistant Engineer (ROB) contacted Patient's insurance provider (Tatiana with [place] [employer] p: [phone]: [phone]) regarding EMS prior auth request sent (01/13/20). Ins advised "not found in system": referred to Member services (p: [phone]). Ins advised patient is active in system, no auth located, referred to [place] Auth Dept. ROB spoke with Ins Auth Dept (Won p: [phone] f: [phone]) to review prior auth form submitted/authorization for EMS transport. Ins advised to refax forms/clinicals and original fax conformation sheet for processing. Ins explained Auth dept will process requests ~24-48 hours; call back for updates (01/19/20 after 12pm). No new needs identified at present. SW services complete. Nikki Blount LMSW, [facility] Assistant Engineer- [employer]que Brusher Management [facility] Pager: [phone] Em: [email or web address] ikki Blount LMSW - 01/12/2020 2:36 PM CDTSocial Work Note Assistant Engineer (ROB) sent EMS prior auth request to Patient's insurance provider ([place] [employer] p: [phone] f: [phone]). No new needs identified at present. SW services complete. Nikki Blount LMSW, [facility] Assistant Engineer- [employer] Br[employer]her Management [facility] Pager: [phone] Em: [email or web address] Nikki Velazquez LMSW - 01/12/2020 2:36 PM CDTSocial Work Note Assistant Engineer (ROB) received handoff from inpatient Nuclear Operator (Aniyah Damon) regarding patients discharge needs. SW attempted to contact patients Bridge Inspector (Dalila with [place] [employer] p: [phone] x [phone]) regarding EMS transportation to hospital discharge follow up appoiment (01/23/20 at 1pm); leftmessage. SW will continue attempts to contact; coordinate EMS transport for clinic appointment. Nikki Blount LMSW, [facility] Assistant Engineer- Bisque Brusher Management [facility] Pager: [phone] Em: [email or web address] documented in this encounter Plan of Treatment Date Type Specialty Care Team Description 01/23/2020 Office Visit Internal Medicine Ryann Chauhan MD [address] [place] [address] [address] [place], [place] [address] [phone] 01/31/2020 Office Visit Vascular Surgery Gerard Hart MD [address] [place] [address] 77 [phone] 03/14/2020 Appointment Radiology Renan Marcial MD [address] [place], [place] [address] 06/11/2020 Office Visit Cardiology Daya Love M D [address] [place] [address] [place] [address] [phone] Health Maintenance Due Date Last Done Comments [...] Address T ype Group Dates EMRE ANDREA [id number] 2015- [address] Medic aid [place]CARE [place] [id number] MANAGED MEDICAID [place], [place] documented as of this encounter
--- OUTSIDE RECORDS SUMMARY | 2020-03-10 03:50 | XMS REPORT | Summary of Care ---
:1960 Author Organization [facility] Address [address] [place] [address] Care Team Providers Name Role Phone Gatito Chauhan MD Primary Care Provider Zeke Márquez Insurance Hmo Norah Dubose RNtravel agent Reason for Visit Reason Comments Results Encounter Details Date Type Department Care Team Description 01/18/2020 Telephone [facility] and Nick Denson, Results Clinics [address] [place] [address] [place] [address] [place] [phone] Allergies No Known Allergiesdocumented as of this [...] this encounter Miscellaneous Notes Telephone Encounter - Bev Chauhan MD - 01/18/2020 6:53 PM CSTSet up a face to face visit with her to discuss CT results. elephone Encounter - Nick Denson MD - 01/18/2020 11:31 AM CSTThomas Samuel, Could you please ask the patient to discuss her CT chest results with her PCP? Thank you, Nick. documented in this encounter Plan of Treatment Date Type Specialty Care Team Description 01/23/2020 Office Visit Internal Medicine Ryann Chauhan MD 146 [facility] 103 [place], [place] [address] 01/31/2020 Office Visit Vascular Surgery Gerard Hart MD [address] [place] [address] 77 [phone] 03/14/2020 Appointment Radiology Renan Marcial MD [address] [place] [address] 77 555 06/11/2020 Office Visit Cardiology Daya Love M D 146 [facility] [address] [place], [place] [address] Health Maintenance Due Date Last Done Comments PNEUMOCOCCAL 0-64 YEARS 1966 COMBINED SERIES (1 of - PPSV23) COLON CANCER SCREENING ANNUAL 2011 [...] / Subscriber ID Effective Phone Address T dustin Group Dates EMRE ANDREA [id number] 2015-Pres [address] Medic aid HEALTHCARE [place]ARE [place] [id number] MANAGED MEDICAID [place] documented as of this encounter
--- OUTSIDE RECORDS SUMMARY | 2020-03-10 03:50 | XMS REPORT | Summary of Care ---
:1960 Author Organization [facility] Address [address] [place] [address] Care Team Providers Name Role Phone Gatito Chauhan MD Primary Care Provider Zeke Márquez Insurance Hmo Norah Dubose RNcar restorer Reason for Visit Reason Comments Results Encounter Details Date Type Department Care Team Description 01/18/2020 Telephone [facility] and Nick Denson, Results Clinics [address] [place] [address] [place] [address] [place] [id number] Allergies No Known Allergiesdocumented as of this [...] this encounter Miscellaneous Notes Telephone Encounter - Nick Denson MD - 01/18/2020 11:31 AM TIP LENGTH CHECKER Dear Lizzie, Could you please ask the patient to discuss her CT chest results with her PCP? Thank you, Nick. documented in this encounter Plan of Treatment Date Type Specialty Care Team Description 01/23/2020 Office Visit Internal Medicine Ryann Chauhan MD 146 [facility] [address] [place], [place] [address] 01/31/2020 Office Visit Vascular Surgery Gerard Hart MD [address] [place] [address] 77 [phone] 03/14/2020 Appointment Radiology Renan Marcial MD [address] [place] [address] 77 555 06/11/2020 Office Visit Cardiology Daya Love M D 146 [facility] [address] [place], [place] [address] Health Maintenance Due Date [...] / Subscriber ID Effective Phone Address T [facility] Group Dates EMRE ANDREA [id number] 2014-Pres [address] Medic aid [place]CARE [place] [id number] MANAGED MEDICAID [place] documented as of this encounter
--- OUTSIDE RECORDS SUMMARY | 2020-03-10 03:50 | XMS REPORT | Summary of Care ---
:1960 Author Organization [facility] Address [address] [place] [address] Care Team Providers Name Role Phone Gatito Chauhan MD Primary Care Provider Zeke Márquez Insurance Hmo Norah Dubose RNaudio visual equipment rental clerk Reason for Visit Reason Comments Transportation Encounter Details Date Type Department Care Team Description 01/12/2020 Patient Outreach [facility] Pediatric Joanna Blount, BOTTOM POUNDER CEMENT SHOES Transportation and Adult Primary [address] [place] [address] [address], [address] [place] [address] Allergies No Known Allergiesdocumented as of this encounter (statuses as of 01/20/2020) Medications Medication Sig Dispensed Refills Start Date [...] as of this encounter (statuses as of 01/20/2020) Active Problems Problem Noted Date Respiratory distress 12/29/2019 E44.0 Moderate protein calorie malnutrition 12/27/2019 Cocaine abuse 12/25/2019 At risk for seizures 12/25/2019 Acute ischemic left MCA stroke 12/24/2019 Coronary artery disease without angina pectoris 2015 HTN (hypertension) 07/23/2015 Chest pain 07/22/2015 PAD (peripheral artery disease) 05/10/2015 documented as of this encounter (statuses as of 01/20/2020) Social History Tobacco Use Types Packs/Day Years [...] - 01/12/2020 2:36 PM CDTSocial Work Note Business Development Sales Executive (ROB) spoke with [place] [employer] UM department (Antonia p: [phone]) regarding the EMSauth submitted (01/13/20; additional form submitted 01/19/20). advised documents received/in process (pending auth# [id number] [facility] p: [phone] f: [phone]); can take up to 3 calendar days to send auth confirmation forms. ROB will contact EMS and patients Daughter (Elyssa Scanlon p: [phone]) to provide auth/updates for transport to clinic appointment (01/23/20). ROB attempted to contact [place] [employer] Airplane Pilot Chief (Antonieta p: [phone]) to request assigned CM contact information; VM full/SMS notification sent. No new needs identified at present. ROB servicescomplete. Nikki Blount LMSW, [facility] Business Development Sales Executive- Application Software Engineer Management [facility] Pager: [phone] Em: [email or web address] ikki Blount LMSW - 01/12/2020 2:36 PM CDTSocial Work Note Business Development Sales Executive (ROB) contacted Patient's insurance provider (Keisha with [place] [employer] p: [phone] f: [phone]) regarding EMS prior auth request sent (01/13/20). Ins confirmed receipt of request; requires additional information (EMS Provider NPI) and form [place] Medicaid [facility] prior Auth Request (Form F 92398) for authorization completion. SW located/completed form; consulted PCP for completion. ROB faxed completed form to [place] [employer] (f: [phone]) . No new needs identified at present. ROB services complete. Nikki Blount LMSW, [facility] Business Development Sales Executive- Application Software Engineer Management [facility] Pager: [phone] Em: [email or web address] Nikki Rolon LMSW - 01/12/2020 2:36 PM CDTSocial Work Note Business Development Sales Executive (ROB) contacted Patient's insurance provider (Tatiana with [place] [employer] p: [phone]: [phone]) regarding EMS prior auth request sent (01/13/20). Ins advised "not found in system": referred to Member services (p: [phone]). Ins advised patient is active in system, no auth located, referred to [place] Auth Dept. SW spoke with Ins Auth Dept (Won p: [phone] x [phone] f: [phone]) to review prior auth form submitted/authorization for EMS transport. Ins advised to refax forms/clinicals and original fax conformation sheet for processing. Ins explained Auth dept will process requests ~24-48 hours; call back for updates (01/19/20 after 12pm). No new needs identified at present. SW services complete. Nikki Blount LMSW, [facility] Business Development Sales Executive- Application Software Engineer Management [facility] Pager: [phone] Em: [email or web address] Nikki Rolon LMSW - 01/12/2020 2:36 PM CDTSocial Work Note Business Development Sales Executive (ROB) sent EMS prior auth request to Patient's insurance provider ([place] [employer] p: [phone] f: [phone]). No new needs identified at present. ROB services complete. Nikki Blount LMSW, [facility] Business Development Sales Executive- Application Software Engineer Management [facility] Pager: [phone] Em: [email or web address] Nikki Velazquez LMSW - 01/12/2020 2:36 PM CDTSocial Work Note Business Development Sales Executive (SW) received handoff from inpatient Triple Valve Tester (Aniyah Damon) regarding patients discharge needs. SW attempted to contact patients Unemployment Insurance Hearing Officer (Dalila with [place] [employer] p: [phone] x [phone]) regarding EMS transportation to hospital discharge follow up appoiment (01/23/20 at 1pm); leftmessage. SW will continue attempts to contact; coordinate EMS transport for clinic appointment. Nikki Blount LMSW, [facility] Business Development Sales Executive- Application Software Engineer Management [facility]- [facility] [place] ,[facility] [place] Pager: [phone] Em: [email or web address] documented in this encounter Plan of Treatment Date Type Specialty Care Team Description 01/23/2020 Office Visit Internal Medicine Ryann Chauhan MD 146 [facility] 103 [place], [place] [address] [phone] 01/31/2020 Office Visit Vascular Surgery Gerard Hart MD [address] [place] [address] [phone] 03/14/2020 Appointment Radiology Renan Marcial MD [address] [place] [address] 06/11/2020 Office Visit Cardiology Daya Love M D 146 [facility] [address] [place], [place] [address] [phone] Health Maintenance Due Date Last Done Comments [...] Problems Progress Quit using Tobacco Use No Hugh tobacco Roberta (cigarettes, smokeless, etc) documented as of this encounter Results Not on filedocumented in this encounter Additional Health Concerns Infection Onset Date Last Indicated Resolved Time Contact- MRSA 01/12/2020 01/12/2020 documented as of this encounter Insurance Payer Benefit Plan / Subscriber ID Effective Phone Address T omega Group Dates CHARLES ANDREA [id number] 2015-Pres [address] Medic aid [place]CARE [place] [id number] MANAGED MEDICAID [place] documented as of this encounter
--- OUTSIDE RECORDS SUMMARY | 2020-03-10 03:51 | XMS REPORT | Summary of Care ---
:1960 Author Organization [facility] Address [address] [place] [address] Care Team Providers Name Role Phone Gatiot Chauhan MD Primary Care Provider Zeke Márquez Insurance Hmo Norah Dubose RNlaborer construction or leak gang Reason for Visit Reason Comments Transportation Encounter Details Date Type Department Care Team Description 01/23/2020 Patient Outreach [facility] Pediatric Joanna Blount, RESIDENTIAL NURSE Transportation and Adult Primary [address] [place] [address] [address], [address] [place] [address] Allergies No Known Allergiesdocumented as of this encounter (statuses as of 01/23/2020) Medications Medication Sig Dispensed Refills Start Date [...] as of this encounter (statuses as of 01/23/2020) Active Problems Problem Noted Date Respiratory distress 12/29/2019 E44.0 Moderate protein calorie malnutrition 12/27/2019 Cocaine abuse 12/25/2019 At risk for seizures 12/25/2019 Acute ischemic left MCA stroke 12/24/2019 Coronary artery disease without angina pectoris 2015 HTN (hypertension) 07/23/2015 Chest pain 07/22/2015 PAD (peripheral artery disease) 05/10/2015 documented as of this encounter (statuses as of 01/23/2020) Social History Tobacco Use Types Packs/Day Years [...] encounter Progress Notes Nikki Blount LMSW - 01/23/2020 8:23 AM CSTSocial Work Note Speed Reading Teacher (ROB) spoke with [place] [employer] (Mary Lou with [place] [employer] department p: [phone]) regarding the EMS auth submitted (01/13/20; additional form submitted 01/19/20). advised Authorization approved/Auth confirmation form sent to EMS and PCP offices. Auth# [id number] [facility] p: [phone] f: [phone] Dates approved: 01/23/20-06/13/20 Services approved: [id number] 8 units (round trip) A0425 (32 units) SW spoke with EMS provider (Shila with [facility] p: [phone]) regarding [place] [employer] Prior Auth. EMS confirmed receipt of Prior Auth form. SW reviewed information received from PCP office regarding rescheduling clinic appointment (01/23/20 to 02/06/20 at 11:20am); will provide new date upon receipt. Ins confirmed reschedule dates covered in Auth date span (01/23/20- 06/13/20). EMS verbalized understanding. SW attempted to contact patients Daughter (Elyssa Scanlon p: [phone]) to provide EMS auth/updates for transport to rescheduled clinic appointment (02/06/20 at 11:20am). No new needs identified at present. SW services complete. Nikki Blount LMSW, [facility] Speed Reading Teacher- Flooring Installer Management [facility] ,and [place] Pager: [phone] Em: [email or web address] INVESTIGATOR documented in this encounter Plan of Treatment Date Type Specialty Care Team Description 01/31/2020 Office Visit Vascular Surgery Gerard Hart MD [address] [place] [address] [phone] 02/06/2020 Office Visit Internal Medicine Ryann Chauhan MD [address] [place] [address] [phone] 03/14/2020 Appointment Radiology Renan Marcial MD [address] [place] [address] 06/11/2020 Office Visit Cardiology Daya Love M D 146 [facility] [address] [place], [place] [address] Health Maintenance Due Date [...] / Subscriber ID Effective Phone Address T [facility] Group Dates EMRE ANDREA [id number] 2015-Pres [address] Medic aid HEALTHCARE [place]ARE [place] [id number] MANAGED MEDICAID [place] documented as of this encounter
--- OUTSIDE RECORDS SUMMARY | 2020-03-10 03:51 | XMS REPORT | Summary of Care ---
:1960 Author Organization [facility] Address [address] [place] [address] Care Team Providers Name Role Phone Gatito Chauhan MD Primary Care Provider Zeke Márquez Insurance Hmo Norah Dubose RNcontainer maker Reason for Visit Reason Comments Transportation Encounter Details Date Type Department Care Team Description 01/23/2020 Patient Outreach [facility] Pediatric Joanna Blount, [place]. REVENUE OFFICER Transportation and Adult Primary [address] [place], [place] [address], [address] [place] [address] Allergies No Known Allergiesdocumented as of this encounter (statuses as of 01/26/2020) Medications Medication Sig Dispensed Refills Start Date [...] as of this encounter (statuses as of 01/26/2020) Active Problems Problem Noted Date Respiratory distress 12/29/2019 E44.0 Moderate protein calorie malnutrition 12/27/2019 Cocaine abuse 12/25/2019 At risk for seizures 12/25/2019 Acute ischemic left MCA stroke 12/24/2019 Coronary artery disease without angina pectoris 2015 HTN (hypertension) 07/23/2015 Chest pain 07/22/2015 PAD (peripheral artery disease) 05/10/2015 documented as of this encounter (statuses as of 01/26/2020) Social History Tobacco Use Types Packs/Day Years [...] - 01/23/2020 8:23 AM CSTSocial Work Note Industrial Engineering Manager (ROB) received "Physicians Medical Necessity Certification for Non- Emergency Ambulance Transports" form from EMS provide (Shila Sousa with [facility] p: [phone] Em: [email or web address] Dispatch: [phone] ). SW provided form to PCP for completion. SW services complete. Nikki Blount LMSW, [facility] Industrial Engineering Manager- Home Day Care Provider Management [facility]- [facility] Pager: [phone] Em: [email or web address] Nikki Rolon LMSW - 01/23/2020 8:23 AM CSTSocial Work Note Industrial Engineering Manager (ROB) spoke with Patients Daughter (Elyssa Scanlon p: [phone]) to provide EMS auth/updatesfor transport and rescheduled clinic appointment (02/06/20 at 11:20am). Daughter confirmed receiving reschedule appointment date in [facility]. SW reviewed EMS transportation arrangements/authorization; transportation arranged for all scheduled clinic appointments (01/23/20-06/13/20; 8units); providingcontact information ([facility] p: [phone]). Daughter verbalized understanding; expressing appreciating. SW reviewed [facility] onsite case managerlog manager, Daughter denies contact; attempted to resea h./messages/calls not returned. SW explained numerous attempts made to locate Ins CM; unsuccessful, will continue attempts to locate Ins CM contact information, Daughter verbalized understanding. SW attempted to contact [facility] Medicaid Blade Sharpener ([facility] Provider Services Dept p: [phone] [phone] ([employer]/Farmer General). Farmer General (Dani Barlow p: [phone] x [phone]); left message. No new needs identified at present. SW will continue attempts to contact; services complete. Nikki Blount LMSW, JENIFER Industrial Engineering Manager- Home Day Care Provider Management [facility]- [facility] Pager: [phone] Em: [email or web address] Nikki Rolon LMSW - 01/23/2020 8:23 AM CSTSocial Work Note Industrial Engineering Manager (ROB) spoke with [place] [employer] (Mary Lou with [place] Medicaid department p: [phone]) regarding the EMS auth submitted (01/13/20; additional form submitted 01/19/20). advised Authorization approved/Auth confirmation form sent to EMS and PCP offices. Auth# [id number] p: [phone] f: [phone] Dates approved: 01/23/20-06/13/20 Services approved: [id number] 8 units (round trip) A0425 (32 units) SW spoke with EMS provider (Shila with [facility] p: [phone]) regarding [place] Medicaid Prior Auth. EMS confirmed receipt of Prior Auth form. SW reviewed information received from PCP office regarding rescheduling clinic appointment (01/23/20 to 02/06/20 at 11:20am); will provide new date upon receipt. Ins confirmed reschedule dates covered in Auth date span (01/23/20- 06/13/20). EMS verbalized understanding. SW attempted to contact patients Daughter (Elyssa Scanlon p: [phone]) to provide EMS auth/updates for transport to rescheduled clinic appointment (02/06/20 at 11:20am). No new needs identified at present. SW services complete. Nikki Blount LMSW, CCM Industrial Engineering Manager- Home Day Care Provider Management [facility]- [facility] Pager: [phone] Em: [email or web address] RED CAR MESSENGER documented in this encounter Plan of Treatment Date Type Specialty Care Team Description 01/31/2020 Office Visit Vascular Surgery Gerard Hart MD [address] [place] [address] 77 [phone] 02/06/2020 Office Visit Internal Medicine Ryann Chauhan MD [address] [place], [place] [address] 03/14/2020 Appointment Radiology Renan Marcial MD [address] [place] [address] 77 555 06/11/2020 Office Visit Cardiology Daya Love M D [address] [facility] [address] [place], [place] [address] Health Maintenance Due Date [...] / Subscriber ID Effective Phone Address T [facility] Group Dates CHARLES ANDREA [id number] 2015-Pres [address] Medic aid HEALTHCARE [place] [id number] MANAGED MEDICAID [place], [place]ID [place] documented as of this encounter
--- OUTSIDE RECORDS SUMMARY | 2020-03-10 03:51 | XMS REPORT | Summary of Care ---
:1960 Author Organization [facility] Address [address] [place] [address] Care Team Providers Name Role Phone Gatito Chauhan MD Primary Care Provider Zeke Márquez Insurance Hmo Norah Dubose RNsecurity professionals Reason for Visit Reason Comments Orders Encounter Details Date Type Department Care Team Description 01/13/2020 Telephone [facility] Pediatric and Janiya Chauhan Orders Adult Primary Care- MD Askew [address] [place] [address] Dr [address] [facility] [address] [place] [address] [phone] Allergies No Known Allergiesdocumented as of this [...] this encounter Miscellaneous Notes Telephone Encounter - LarsNagia - 01/23/2020 9:09 AM CSTAttempted to call patient, n/a, not able to left message, mailbox is full. I need to know which DME company patient is using, which supplies are needed? Please transfer patient to me when patient calls ([phone]) Melanie Lars 01/23/2020 9:11 AM elephone Encounter - Ginny Patel - 01/17/2020 7:31 AM CSTPlease address encounter opened greater than 48 hours. elephone Encounter - Ginny Patel - 01/13/2020 11:29 AM CDTMary the Case Manger is calling stating that [facility] in [place] is needing an order for incontinentsupplies. documented in this encounter Plan of Treatment Date Type Specialty Care Team Description 01/31/2020 Office Visit Vascular Surgery Gerard Hart MD [address] [place] [address] 77 [phone] 02/06/2020 Office Visit Internal Medicine Ryann Chauhan MD [address] [place] [address] [address] [place], [place] [address] 03/14/2020 Appointment Radiology Renan Marcial MD [address] [place] [address] 77 555 06/11/2020 Office Visit Cardiology Daya Love M D 146 [facility] [address] [place], [place] [address] Health Maintenance Due Date [...] Problems Progress Quit using Tobacco Use No [place], tobacco Roberta (cigarettes, smokeless, etc) documented as of this encounter Results Not on filedocumented in this encounter Additional Health Concerns Infection Onset Date Last Indicated Resolved Time Contact- MRSA 01/12/2020 01/12/2020 documented as of this encounter Insurance Payer Benefit Plan / Subscriber ID Effective Phone Address T [facility] Group Dates EMRE ANDREA [id number] 2015-Pres [address] Medic aid HEALTHCARE [place]ARE [place] [id number] MANAGED MEDICAID [place], [place] documented as of this encounter
--- OUTSIDE RECORDS SUMMARY | 2020-03-10 03:51 | XMS REPORT | Summary of Care ---
:1960 Author Organization [facility] Address [address] [place] [address] Care Team Providers Name Role Phone Gatito Chauhan MD Primary Care Provider Zeke Márquez Insurance Hmo Norah Dubose RNenvironmental health and safety manager Reason for Visit Reason Comments Transportation Encounter Details Date Type Department Care Team Description 01/23/2020 Patient Outreach [facility] Pediatric Joanna Blount, STEEL BURNER Transportation and Adult Primary [address] [place] [address] Drive, [address] [place] [address] Allergies No Known Allergiesdocumented as of this encounter (statuses as of 01/31/2020) Medications Medication Sig Dispensed Refills Start Date [...] as of this encounter (statuses as of 01/31/2020) Active Problems Problem Noted Date Respiratory distress 12/29/2019 E44.0 Moderate protein calorie malnutrition 12/27/2019 Cocaine abuse 12/25/2019 At risk for seizures 12/25/2019 Acute ischemic left MCA stroke 12/24/2019 Coronary artery disease without angina pectoris 2015 HTN (hypertension) 07/23/2015 Chest pain 07/22/2015 PAD (peripheral artery disease) 05/10/2015 documented as of this encounter (statuses as of 01/31/2020) Social History Tobacco Use Types Packs/Day Years [...] been in contact with No / Unsure 01/31/2020 9:59 AM PRINTED CIRCUIT BOARD PCB 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 documented as of this encounter Last Filed Vital Signs Not on filedocumented in this encounter Progress Notes Nikki Blount LMSW - 01/23/2020 8:23 AM CSTSocial Work Note Clinical Coordinator (ROB) received completed/faxed "Physicians Medical Necessity Certification for Non-Emergency Ambulance Transports" form; forwarded to EMS provider (Shila Sousa with [facility] p: [phone] Em: [email or web address] Dispatch: [phone] ). EMS confirmed receipt. SW services complete. Nikki Blount LMSW, CCM Clinical Coordinator- Local Operator Management [facility]- [facility] Pager: [phone] Em: [email or web address] Nikki Rolon LMSW - 01/23/2020 8:23 AM CSTSocial Work Note Clinical Coordinator (ROB) received "Physicians Medical Necessity Certification for Non- Emergency Ambulance Transports" form from EMS provide (Shila Sousa with [facility] p: [phone] Em: [email or web address] Dispatch: [phone] ). SW provided form to PCP for completion. SW services complete. Nikki Blount LMSW, JENIFER Clinical Coordinator- Local Operator Management [facility]- [facility] Pager: [phone] Em: [email or web address] Nikki Rolon LMSW - 01/23/2020 8:23 AM CSTSocial Work Note Clinical Coordinator (ROB) spoke with Patients Daughter (Elyssa Scanlon p: [phone]) to provide EMS auth/updatesfor transport and rescheduled clinic appointment (02/06/20 at 11:20am). Daughter confirmed receiving reschedule appointment date in [facility]. SW reviewed EMS transportation arrangements/authorization; transportation arranged for all scheduled clinic appointments (01/23/20-06/13/20; 8units); providingcontact information ([facility] p: [phone]). Daughter verbalized understanding; expressing appreciating. SW reviewed [place] case therapistmanager commercial real estate, Daughter denies contact; attempted to resea h./messages/calls not returned. SW explained numerous attempts made to locate Ins CM; unsuccessful, will continue attempts to locate Ins CM contact information, Daughter verbalized understanding. SW attempted to contact [place] Medicaid Insulation And Flooring Assembler ([facility] Provider Services Dept p: [phone] ([employer]/Roving Winder). Roving Winder (Dani Barlow p: [phone] x [phone]); left message. No new needs identified at present. SW will continue attempts to contact; services complete. Nikki Blount LMSW, [facility] Clinical Coordinator- Local Operator Management [facility]- Community Based Clinics [facility] ,and [place] Pager: [phone] Em: [email or web address] Nikki Rolon LMSW - 01/23/2020 8:23 AM CSTSocial Work Note Clinical Coordinator (ROB) spoke with [place] Medicaid (Mary Lou with [place] Medicaid department p: [phone]) regarding the EMS auth submitted (01/13/20; additional form submitted 01/19/20). advised Authorization approved/Auth confirmation form sent to EMS and PCP offices. Auth# [id number] [facility] p: [phone] f: [phone] Dates approved: 01/23/20-06/13/20 Services approved: [id number] 8 units (round trip) A0425 (32 units) SW spoke with EMS provider (Shila with [facility] p: [phone]) regarding [place] Medicaid Prior Auth. EMS confirmed receipt of Prior Auth form. SW reviewed information received from PCP office regarding rescheduling clinic appointment (01/23/20 to 02/06/20 at 11:20am); will provide new date upon receipt. Ins confirmed reschedule dates covered in Auth date span (01/23/20- 06/13/20). EMS verbalized understanding. SW attempted to contact patients Daughter (Elyssa Scanlon p: [phone]) to provide EMS auth/updates for transport to rescheduled clinic appointment (02/06/20 at 11:20am). No new needs identified at present. SW services complete. Nikki Blount LMSW, [facility] Clinical Coordinator- Local Operator Management [facility]- [facility] ,and [place] Pager: [phone] Em: [email or web address] TED CIRCUIT BOARD PCB DESIGNER documented in this encounter Plan of Treatment Date Type Specialty Care Team Description 02/06/2020 Office Visit Internal Medicine Ryann Chauhan MD [address] [place] [address] [address] [place], [place] [address] 03/14/2020 Appointment Radiology Renan Marcial MD [address] [place] [address] 77 [phone] 06/11/2020 Office Visit Cardiology Daya Love M D [address] [place] [address] [address] [place], [place] [address] [phone] Health Maintenance Due Date Last Done Comments [...] / Subscriber ID Effective Phone Address T [facility] Group Dates EMRE ANDREA [id number] 2014-Pres [address] BOX Medic aid HEALTHCARE [place] [id number] MANAGED MEDICAID [place], [place] documented as of this encounter
--- OUTSIDE RECORDS SUMMARY | 2020-03-10 03:51 | XMS REPORT | Summary of Care ---
:1960 Author Organization [facility] Address [address] [place] [address] Care Team Providers Name Role Phone Gatito Chauhan MD Primary Care Provider Zeke Márquez Insurance Hmo Norah Dubose RNmanagement trainee Reason for Visit Reason Comments Transportation Encounter Details Date Type Department Care Team Description 01/23/2020 Patient Outreach [facility] Pediatric Joanna Blount, BOOMSWING OPERATOR Transportation and Adult Primary [address] [place], [place] [address] Drive, [address] [place] [address] Allergies No Known Allergiesdocumented as of this encounter (statuses as of 01/25/2020) Medications Medication Sig Dispensed Refills Start Date [...] as of this encounter (statuses as of 01/25/2020) Active Problems Problem Noted Date Respiratory distress 12/29/2019 E44.0 Moderate protein calorie malnutrition 12/27/2019 Cocaine abuse 12/25/2019 At risk for seizures 12/25/2019 Acute ischemic left MCA stroke 12/24/2019 Coronary artery disease without angina pectoris 2015 HTN (hypertension) 07/23/2015 Chest pain 07/22/2015 PAD (peripheral artery disease) 05/10/2015 documented as of this encounter (statuses as of 01/25/2020) Social History Tobacco Use Types Packs/Day Years [...] - 01/23/2020 8:23 AM CSTSocial Work Note Delivery Sales Worker (ROB) spoke with Patients Daughter (Elyssa Scanlon p: [phone]) to provide EMS auth/updatesfor transport and rescheduled clinic appointment (02/06/20 at 11:20am). Daughter confirmed receiving reschedule appointment date in [facility]. SW reviewed EMS transportation arrangements/authorization; transportation arranged for all scheduled clinic appointments (01/23/20-06/13/20; 8units); providingcontact information ([facility] p: [phone]). Daughter verbalized understanding; expressing appreciating. SW reviewed Andrea rn case manager hospicecopyright manager, Daughter denies contact; attempted to resea rch./messages/calls not returned. SW explained numerous attempts made to locate Ins CM; unsuccessful, will continue attempts to locate Ins CM contact information, Daughter verbalized understanding. SW attempted to contact [place] Medicaid Dexigraph Operator ([facility] Provider Services Dept p: [phone] ([employer]/Circulation Analyst). Circulation Analyst (Dani Yinori p: [phone]); left message. No new needs identified at present. SW will continue attempts to contact; services complete. Nikki Blount LMSW, [facility] Delivery Sales Worker- Skiver Sock Linings Management [facility]- Community Based Clinics [facility] ,and [place] Pager: [phone] Em: [email or web address] Nikki Rolon LMSW - 01/23/2020 8:23 AM CSTSocial Work Note Delivery Sales Worker (ROB) spoke with [place] Medicaid (Mary Lou with [place] Medicaid department p: [phone]) regarding the EMS auth submitted (01/13/20; additional form submitted 01/19/20). advised Authorization approved/Auth confirmation form sent to EMS and PCP offices. [facility]# [facility] p: [phone] f: [phone] Dates approved: 01/23/20-06/13/20 Services approved: [id number] 8 units (round trip) A0425 (32 units) SW spoke with EMS provider ([facility] p: [phone]) regarding [place] Medicaid Prior Auth. EMS confirmed receipt of Prior Auth form. SW reviewed information received from PCP office regarding rescheduling clinic appointment (01/23/20 to 02/06/20 at 11:20am); will provide new date upon receipt. Ins confirmed reschedule dates covered in Auth date span (01/23/20- 06/13/20). EMS verbalized understanding. SW attempted to contact patients Daughter (Elyssa Scanlon p: [phone]) to provide EMS auth/updates for transport to rescheduled clinic appointment (02/06/20 at 11:20am). No new needs identified at present. SW services complete. Nikki Blount LMSW, CCM Delivery Sales Worker- Skiver Sock Linings Management [facility]- Community Based Clinics [facility] ,and [place] Pager: [phone] Em: [email or web address] USION LINE OPERATOR documented in this encounter Plan of Treatment Date Type Specialty Care Team Description 01/31/2020 Office Visit Vascular Surgery Gerard Hart MD [address] [place] [address] [phone] 02/06/2020 Office Visit Internal Medicine Ryann Chauhan MD 146 [facility] D r [facility] [address] [place] [address] 03/14/2020 Appointment Radiology Renan Marcial MD [address] [place] [address] 77 555 06/11/2020 Office Visit Cardiology Daya Love M D 146 [facility] [address] [place] [phone] 15 Health Maintenance Due Date Last Done [...] Problems Progress Quit using Tobacco Use No [place], tobacco Roberta (cigarettes, smokeless, etc) documented as of this encounter Results Not on filedocumented in this encounter Additional Health Concerns Infection Onset Date Last Indicated Resolved Time Contact- MRSA 01/12/2020 01/12/2020 documented as of this encounter Insurance Payer Benefit Plan / Subscriber ID Effective Phone Address T ype Group Dates EMRE ANDREA [id number] 2015-Pres [address] Medic aid HEALTHCARE [place]ARE [place] [id number] MANAGED MEDICAID [place], [place] documented as of this encounter
--- OUTSIDE RECORDS SUMMARY | 2020-03-10 03:52 | XMS REPORT | Summary of Care ---
:1960 Author Organization [address] [address] Care Team Providers Name Role Phone Gatito Chauhan MD Primary Care Provider Zeke Márquez Insurance Hmo Norah Dubose RNbusiness intelligence etl developer Reason for Visit Reason Comments Follow-up hospital follow up (Routine) Status Reason Specialty Diagnoses / Referred By Referred To Procedures Contact Contact Closed Vascular Surgery Diagnoses PAD (peripheral artery disease) Daya Love MD Procedures CONSULT VASCULAR SURGERY [address] [place] [address] [address] [place] [address] Encounter Details Date Type Department Care Team Description 01/31/2020 Office Visit [facility] Vascular Dorene Hart P AD (peripheral Surgery- [place] artery disease) [address] [place] [address] [address] l[address] (Primary Dx) [place], [place] [address] [address] [place], [place] [phone] [address] [phone] Allergies No Known Allergiesdocumented as of this encounter (statuses as of 02/02/2020) Medications Medication Sig Dispensed Refills Start Date [...] as of this encounter (statuses as of 02/02/2020) Active Problems Problem Noted Date Respiratory distress 12/29/2019 E44.0 Moderate protein calorie malnutrition 12/27/2019 Cocaine abuse 12/25/2019 At risk for seizures 12/25/2019 Acute ischemic left MCA stroke 12/24/2019 Coronary artery disease without angina pectoris 2015 HTN (hypertension) 07/23/2015 Chest pain 07/22/2015 PAD (peripheral artery disease) 05/10/2015 documented as of this encounter (statuses as of 02/02/2020) Social History Tobacco Use Types Packs/Day Years [...] with No / Unsure 01/31/2020 9:59 AM VICE PRESIDENT FIXED INCOME someone who was confirmed or suspected to have 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 documented as of this encounter Last Filed Vital Signs Vital Sign Reading Time Taken Comments Blood Pressure 122/75 01/31/2020 10:49 AM VICE PRESIDENT FIXED INCOME Pulse 84 01/31/2020 10:49 AM VICE PRESIDENT FIXED INCOME Temperature 37 C (98.6 F) 01/31/2020 10:49 AM VICE PRESIDENT FIXED INCOME Respiratory Rate 20 01/31/2020 10:49 AM VICE PRESIDENT FIXED INCOME Oxygen Saturation 98% 01/31/2020 10:49 AM VICE PRESIDENT FIXED INCOME Inhaled Oxygen Concentration - - Weight - - Height 160 cm (5' 3") 01/31/2020 10:49 AM VICE PRESIDENT FIXED INCOME Body Mass Index - - documented in this encounter Patient Instructions Patient InstructionsNabil Aldana DO - 01/31/2020 10:15 AM CSTNo bilateral lower extremity rest pain; no claudication prior to stroke per daughter. Patient walkedand rode a bicycle with no complaints before stroke. Continue physical therapy Will plan to have patient follow up PRN PRESIDENT FIXED INCOME documented in this encounter Progress Notes Mia Dumas MD - 01/31/2020 10:15 AM CSTI discussed the patient with Dr. Aldana then personally examined the patient on 01/31/2020. I agreewith the note as detailed by Dr. Aldana. I actively participated in the decision- making process regarding the assessment and plan of care. Please see the resident's note for additional details. Patient is aphasic and cannot ambulate since stroke last month. Received vascular workup before her stroke which showed peripheral arterial disease in both legs with MONO of 0.5 on both legs. No wounds in her feet or legs. She is undergoing rehab after her stroke. RTC PRN. Mia Dumas MD, [facility] [place] Vascular Surgery PRESIDENT FIXED INCOME Nabil Aldana, - 01/31/2020 10:15 AM CST Visit Type: Clinic Note / History and Physical Chief Complaint: referral for PAD HPI Funmilayo Mcmillan is a 59 year old female with PMH of HTN, PAD, CAD s/p PCI (2013), recent strokewith residual neurologic deficits presents to clinic with her daughter for referral for PAD. Referral placed before patient's stroke admission. Patient was recently admitted on 12/24/19 with aphasia, AMS and right sided weakness. Patient with residual right sided weakness and aphasia. CT head showed acute-subacute L MCA infarct. CTA head and neck showed complete occlusion of left cervical ICA just distal to the bulb. Daughter states that prior to the patient's stroke, she was very active with walking and bicycle riding. Also states she doesn't notice her mother appearing to have pain in her legs while at rest. ABIs obtained showed L 0.58 with TBI 0.44 and monophasic waveforms and R 0.56 with TBI 0.25 and monophasic waveforms. Currently takes ASA, plavix and statin. Past Medical History Past Medical History: Diagnosis Date CAD (coronary artery disease) 08/2013 s/p PCI (SAEID) to proximal LAD, 50% mid focal occlusion of LCx Depression HTN (hypertension) PAD (peripheral artery disease) 05/10/2015 Stroke Tuberculosis was treated for 6 months, was in long-term. Past Surgical History History reviewed. No pertinent surgical history. Family History Family History Problem Relation Age of Onset Coronary Heart Disease Maternal Aunt Social History Social History Socioeconomic History Marital status: Single [...] file Gets together: Not on file Attends tenriism service: Not on file Active member of [...] a friend. She's on disability. She's active. No Known Allergies Current Outpatient Medications Medication Sig Dispense Refill aspirin 81 mg chewable tablet Take 1 tablet through enteral tube daily. 30 tablet 11 clopidogreL 75 mg tablet Take 1 tablet through enteral tube daily for 90 days. 30 tablet 2 levETIRAcetam 100 mg/mL oral solution Take 7.5 mL through enteral tube 2 (two) times daily. 473 mL 2 amLODIPine 10 mg tablet Take 1 tablet through enteral tube daily. 30 tablet 0 atorvastatin 40 mg tablet Take 1 tablet through enteral tube at bedtime. 30 tablet 0 famotidine 20 mg tablet Take 1 tablet by mouth 2 (two) times daily. 30 tablet 10 lisinopriL 40 mg tablet Take 1 tablet by mouth daily. 30 tablet 11 Polyethylene Glycol 3350 17 gram powder Take 1 Packet through enteral tube 2 (two) times daily. 60 Packet 0 risperiDONE 0.5 mg tablet Take 1 tablet through enteral tube 2 (two) times daily. 60 tablet 0 No current facility-administered medications for this visit. Review of Systems General/Constitutional: Negative except per HPI Skin/Breast: Negative except per HPI HEENT: Negative except per HPI CV: Negative except per HPI Respiratory: Negative except per HPI GI: Negative except per HPI : Negative except per HPI Musculoskeletal: Negative except per HPI Neurologic: Negative except per HPI Hematologic: Negative except per HPI Endocrine: Negative except per HPI Physical Exam BP 122/75 (BP Location: Right arm, Patient Position: Sitting, BP CUFF SIZE: Adult Large) | Pulse 84 | Temp 37 C (98.6 F) (Temporal Artery) | Resp 20 | Ht 1.6 m (5' 3") | SpO2 98% | BMI 20.30 kg/m General: alert HEENT: pupils, equal, round, reactive to light; extraocular movements intact; oropharynx clear; moist mucous membranes Respiratory: breathing unlabored Cardiovascular: regular rate and rhythm Gastrointestinal: soft, nontender, nondistended Musculoskeletal: no cyanosis, edema or tenderness to palpation Integumentary: no rashes Neurologic: right sided hemiparesis Vascular: palpable femoral pulses bilaterally; pedal doppler signals present bilaterally Vascular Lab MONO multilevel 12/19/19 Procedure/Quality Single-level arterial Doppler waveforms, with multi-level segmental pressures, PVR's and DBI's with PPG waveforms of the bilateral lower extremities were obtained. Arterial Doppler waveforms in the bilateral lower extremities demonstrate monophasic waveforms. The resting ankle-brachial indices fall into the moderately severe arterial occlusive disease range bilaterally. The BILATERAL toe-brachial indices are abnormal. Right Brachial = 187 mmHg. Thigh = 90 mmHg. Calf = 76 mmHg. FIRST AID DIRECTOR = 104 mmHg. DPA = 103 mmHg. Digit = 47 mmHg. MONO = 0.56. TBI = 0.25. . Doppler Waveforms. Posterior tibial artery = Monophasic. Dorsalis pedis artery = Monophasic. Rt PVR Thigh PVR = Moderately Severe. Calf PVR = Moderately Severe. Ankle flow PVR = Moderately Severe. RT PPG Digit 1 flow is diminished. Left Brachial = 175 mmHg. Thigh = 99 mmHg. Calf = 80 mmHg. FIRST AID DIRECTOR = 109 mmHg. DPA = 91 mmHg. Digit = 83 mmHg. MONO = 0.58. TBI = 0.44. . Doppler Waveforms. Posterior tibial artery = Monophasic. Dorsalis pedis artery = Monophasic. LT PVR Thigh PVR = Moderately Severe. Calf PVR = Moderately Severe. Ankle flow PVR = Moderately Severe. LT PPG Digit 1 flow is diminished. Interpretation Summary Arterial Doppler waveforms in the bilateral lower extremities demonstrate monophasic waveforms. The resting ankle-brachial indices fall into the moderately severe arterial occlusive disease range bilaterally. The BILATERAL toe-brachial indices are abnormal Assessment/Plan Funmilayo Mcmillan is a 59 year old female with PMH as above who presents for evaluation of PAD. Recent stroke leaving patient with right sided hemiparesis and aphasic. Daughter present with patient.Daughter states patient was active and did not complain of BLE pain previously. Unclear claudicationhistory at this time. - No bilateral lower extremity rest pain; no claudication prior to stroke per daughter. - Patient walked and rode a bicycle with no complaints before stroke. - Continue physical therapy - Will plan to have patient follow up PRN Patient seen and examined with Dr. Dumas on 01/31/20. Nabil Aldana DO PGY2 Vascular Surgery PRESIDENT FIXED INCOME Sue Hope, RN - 01/31/2020 10:15 AM CSTFunmilayo Mcmillan is a 59 year old female comes to clinic independent in ambulation for hospital follow up. Pt comes alone . Pt in NAD w/ pain reported 0. Pt preferred language is Brazilian. Pt. denies fall in last 12 months. Allergies and medications reviewed and updated. PRESIDENT FIXED INCOME documented in this encounter Plan of Treatment Date Type Specialty Care Team Description 02/06/2020 Office Visit Internal Medicine Ryann Chauhan MD 146 [facility] 103 [place], [place] [address] [phone] 03/14/2020 Appointment Radiology Renan Marcial MD [address] [place] [address] 06/11/2020 Office Visit Cardiology Daya Love M D 146 [facility] [address] [place], [place] [address] [phone] Health Maintenance Due Date Last Done Comments [...] Visit Diagnoses Diagnosis PAD (peripheral artery disease) - Primar y Unspecified disorders of arteries and ar terioles documented in this encounter Additional Health Concerns Infection Onset Date Last Indicated Resolved Time Contact- MRSA 01/12/2020 01/12/2020 documented as of this encounter Insurance Payer Benefit Plan / Subscriber ID Effective Phone Address T e Group Dates EMRE ANDREA [id number] 2015-Pres [address] Medic aid [place] [id number] MANAGED MEDICAID [place] documented as of this encounter
--- OUTSIDE RECORDS SUMMARY | 2020-03-10 03:52 | XMS REPORT | Summary of Care ---
:1960 Author Organization [facility] Address [address] [place] [address] Care Team Providers Name Role Phone Gatito Chauhan MD Primary Care Provider Zeke Márquez Insurance Hmo Norah Dubose RNelectric motor winders assembler Reason for Visit Reason Comments Results Encounter Details Date Type Department Care Team Description 02/01/2020 Telephone [facility], Nick Denson, Results [facility] [address] [place] [id number] [phone] Allergies No Known Allergiesdocumented as of this encounter (statuses as of 02/03/2020) Medications Medication Sig Dispensed Refills Start Date [...] as of this encounter (statuses as of 02/03/2020) Active Problems Problem Noted Date Respiratory distress 12/29/2019 E44.0 Moderate protein calorie malnutrition 12/27/2019 Cocaine abuse 12/25/2019 At risk for seizures 12/25/2019 Acute ischemic left MCA stroke 12/24/2019 Coronary artery disease without angina pectoris 2015 HTN (hypertension) 07/23/2015 Chest pain 07/22/2015 PAD (peripheral artery disease) 05/10/2015 documented as of this encounter (statuses as of 02/03/2020) Social History Tobacco Use Types Packs/Day Years [...] with No / Unsure 01/31/2020 9:59 AM FIRE SERVICES PLUMBER someone who was confirmed or suspected to have 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 documented as of this encounter Last Filed Vital Signs Not on filedocumented in this encounter Miscellaneous Notes Telephone Encounter - Bev Chauhan MD - 02/03/2020 1:59 PM CSTPlease call patient, see if you can reach her daughter. I need her to keep her appointment next week. We have a lot to discuss. elephone Encounter - Nick Denson MD - 02/01/2020 4:17 PM CSTCalled her to discuss her CT chest results but I was unable to reach her so I left a voicemail. Further evaluation and management of abnormal CT chest results as per her PCP. Nick. documented in this encounter Plan of Treatment Date Type Specialty Care Team Description 02/06/2020 Office Visit Internal Medicine Ryann Chauhan MD 146 [facility] 103 [place], [place] [address] [phone] 02/17/2020 Office Visit Thoracic Surgery Hossein Stewart MD [address] [place] [phone] 03/14/2020 Appointment Radiology Renan Marcial MD [address] [place] [address] 555 06/11/2020 Office Visit Cardiology Daya Love M D 146 [facility] [address] [place], [place] [address] [phone] Health Maintenance Due Date Last Done Comments PNEUMOCOCCAL 0-64 YEARS 1966 COMBINED SERIES (1 of - PPSV23) DTaP,Tdap,and Td Vaccines (1 1980 - Tdap) COLON CANCER SCREENING ANNUAL 2011 FIT/FOBT COLON CANCER SCREENING FIT 2011 DNA EVERY 3 YEARS COLON CANCER SCREENING 2011 SIGMOIDOSCOPY EVERY 5 YEARS Zoster Recombinant Vaccine 2011 (SHINGRIX) (1 of 2) PAP SMEAR 08/03/2011 08/02/2008, 12/02/2004, 11/03/2003 Breast Cancer Screening 01/11/2014 01/11/2013, (MAMMOGRAM) 12/24/2012 INFLUENZA VACCINE (#1) 2020 Postponed from 11/15/2019 [...] / Subscriber ID Effective Phone Address [facility] Group Dates EMRE ANDREA [id number]-Pres [address] BOX Medic aid HEALTHCARE [place]ARE [place] [id number] MANAGED MEDICAID [place] documented as of this encounter
--- OUTSIDE RECORDS SUMMARY | 2020-03-10 03:52 | XMS REPORT | Summary of Care ---
:1960 Author Organization [address] [address] Care Team Providers Name Role Phone Gatito Chauhan MD Primary Care Provider Zeke Márquez Insurance Hmo Reason for Visit Reason Comments Follow-up Encounter Details Date Type Department Care Team Description 02/06/2020 Patient Outreach [facility] Sharona Dubose, RN Follow-up Network[address] [address] Allergies No Known Allergiesdocumented as of this encounter (statuses as of 02/06/2020) Medications Medication Sig Dispensed Refills Start Date [...] as of this encounter (statuses as of 02/06/2020) Active Problems Problem Noted Date Respiratory distress 12/29/2019 E44.0 Moderate protein calorie malnutrition 12/27/2019 Cocaine abuse 12/25/2019 At risk for seizures 12/25/2019 Acute ischemic left MCA stroke 12/24/2019 Coronary artery disease without angina pectoris 2015 HTN (hypertension) 07/23/2015 Chest pain 07/22/2015 PAD (peripheral artery disease) 05/10/2015 documented as of this encounter (statuses as of 02/06/2020) Social History Tobacco Use Types Packs/Day Years [...] been in contact with No / Unsure 02/06/2020 10:40 AM CHUCKING MACHINE SET UP OPERATOR TOOL someone who was confirmed or suspected to have 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 documented as of this encounter Last Filed Vital Signs Not on filedocumented in this encounter Progress Notes Funmilayo Dubose RN - 02/06/2020 11:07 AM CSTSummary: Appt reminder [facility] CM called to remind patient's daughter of her mother's appointment with Dr. Chauhan on 02/05 @9532. There was no answer. GASTON Mojica, RN, [facility] Outpatient Allopathic DoctorWater Control Station EngineerEcu Health Ro[facility] Hospital O: [phone] M: [phone] documented in this encounter Plan of Treatment Date Type Specialty Care Team Description 02/06/2020 Office Visit Internal Medicine Ryann Chauhan MD [facility] 146 [facility] 103 [place], [place] [address] [phone] 02/17/2020 Office Visit Thoracic Surgery Hossein Stewart MD [address] [place] [phone] 03/14/2020 Appointment Radiology Renan Marcial MD [address] [place] [address] 555 06/11/2020 Office Visit Cardiology Daya Love M D 146 [facility] [address] [place], [place] [address] Health Maintenance Due Date Last Done Comments PNEUMOCOCCAL 0-64 YEARS 1967 COMBINED SERIES (1 of 1 - PPSV23) DTaP,Tdap,and Td Vaccines (1 1980 [...] Problems Progress Quit using Tobacco Use No Estelline, tobacco Roberta (cigarettes, smokeless, etc) documented as of this encounter Results Not on filedocumented in this encounter Additional Health Concerns Infection Onset Date Last Indicated Resolved Time Contact- MRSA 01/12/2020 01/12/2020 documented as of this encounter Insurance Payer Benefit Plan / Subscriber ID Effective Phone Address [facility] Group Dates EMRE ANDREA [id number] 2014-Pres [address] BOX Medic aid [place]CARE [place] [id number] MANAGED MEDICAID [place] documented as of this encounter
--- OUTSIDE RECORDS SUMMARY | 2020-03-10 03:52 | XMS REPORT | Summary of Care ---
:1960 Author Organization [facility] Address [address] [place] [address] Care Team Providers Name Role Phone Gatito Chauhan MD Primary Care Provider Zeke Márquez Insurance Hmo Norah Dubose RNholter technician Encounter Details Date Type Department Care Team Description 02/02/2020 Orders Only [facility] Doctor Unassigned, No 301 [facility] [place] [address] [address] [place] [id number] Allergies No Known Allergiesdocumented as of this [...] with No / Unsure 01/31/2020 9:59 AM HRIS COORDINATOR someone who was confirmed or suspected to have 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 documented as of this encounter Last Filed Vital Signs Not on filedocumented in this encounter Plan of Treatment Date Type Specialty Care Team Description 02/06/2020 Office Visit Internal Medicine Ryann Chauhan MD 146 [facility] 103 [place], [place] [address] [phone] 03/14/2020 Appointment Radiology Renan Marcial MD [address] [place] [address] 06/11/2020 Office Visit Cardiology Daya Love M D 146 [facility] [address] [place], [place] [address] Health Maintenance Due Date [...] Name Priority Date/Time Associated Diagnosis Comme nts EXTERNAL PROVIDER Routine 02/02/2020 12:01 AM HRIS COORDINATOR RECORDS documented in this encounter Results Not on filedocumented in this encounter Additional Health Concerns Infection Onset Date Last Indicated Resolved Time Contact- MRSA 01/12/2020 01/12/2020 documented as of this encounter Insurance Payer Benefit Plan / Subscriber ID Effective Phone Address T [facility] Group Dates EMRE ANDREA [id number] 2014-Pres [address] BOX Medic aid [place] [id number] MANAGED MEDICAID [place] documented as of this encounter
--- OUTSIDE RECORDS SUMMARY | 2020-03-10 03:52 | XMS REPORT | Summary of Care ---
:1960 Author Organization [address] [address] Care Team Providers Name Role Phone Gatito Chauhan MD Primary Care Provider Zeke Márquez Insurance Hmo Norah Dubose RNpaving bed maker Reason for Visit Reason Comments Follow-up hospital follow up (Routine) Status Reason Specialty Diagnoses / Referred By Referred To Procedures Contact Contact Closed Vascular Surgery Diagnoses PAD (peripheral artery disease) Daya Love MD Procedures CONSULT VASCULAR SURGERY [address] [place] [address] [address] [place] [address] Encounter Details Date Type Department Care Team Description 01/31/2020 Office Visit [facility] Vascular Dorene Hart P AD (peripheral Surgery- [place] artery disease) [address] [place] [address] [address] (Primary Dx) [place], [place] [address] [address] [place], [place] [phone] [address] [phone] Allergies No Known Allergiesdocumented as of this [...] with No / Unsure 01/31/2020 9:59 AM AWNING CRAFTSPERSON someone who was confirmed or suspected to have 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 documented as of this encounter Last Filed Vital Signs Vital Sign Reading Time Taken Comments Blood Pressure 122/75 01/31/2020 10:49 AM AWNING CRAFTSPERSON Pulse 84 01/31/2020 10:49 AM AWNING CRAFTSPERSON Temperature 37 C (98.6 F) 01/31/2020 10:49 AM AWNING CRAFTSPERSON Respiratory Rate 20 01/31/2020 10:49 AM AWNING CRAFTSPERSON Oxygen Saturation 98% 01/31/2020 10:49 AM AWNING CRAFTSPERSON Inhaled Oxygen Concentration - - Weight - - Height 160 cm (5' 3") 01/31/2020 10:49 AM AWNING CRAFTSPERSON Body Mass Index - - documented in this encounter Patient Instructions Patient InstructionsNabil Aldana DO - 01/31/2020 10:15 AM CSTNo bilateral lower extremity rest pain; no claudication prior to stroke per daughter. Patient walkedand rode a bicycle with no complaints before stroke. Continue physical therapy Will plan to have patient follow up PRN NG CRAFTSPERSON documented in this encounter Progress Notes Mia [...] MD, [facility] [place] Vascular Surgery NG CRAFTSPERSON Nabil Aldana, - 01/31/2020 10:15 AM CST [...] was treated for 6 months, was in skilled nursing. Past Surgical History History reviewed. No pertinent [...] file Gets together: Not on file Attends cheondoism service: Not on file Active member of [...] = 90 mmHg. Calf = 76 mmHg. THERAPEUTIC RECREATION SPECIALIST = 104 mmHg. DPA = 103 mmHg. [...] = 99 mmHg. Calf = 80 mmHg. THERAPEUTIC RECREATION SPECIALIST = 109 mmHg. DPA = 91 mmHg. [...] 01/31/20. Nabil Aldana DO PGY2 Vascular Surgery NG CRAFTSPERSON Sue Hope, RN - 01/31/2020 10:15 AM CSTFunmilayo Mcmillan is a 59 year old female comes to clinic independent in ambulation for hospital follow up. Pt comes alone . Pt in NAD w/ pain reported 0. Pt preferred language is Cameroonian. Pt. denies fall in last 12 months. Allergies and medications reviewed and updated. NG CRAFTSPERSON documented in this encounter Plan of Treatment Date Type Specialty Care Team Description 02/06/2020 Office Visit Internal Medicine Ryann Chauhan MD 146 [facility] 103 [place], [place] [address] [phone] 03/14/2020 Appointment Radiology Renan Marcial MD [address] [place] [address] 06/11/2020 Office Visit Cardiology Daya Love M D 146 [facility] [address] [place], [place] [address] [phone] Health Maintenance Due Date Last Done Comments [...] Address T e Group Dates EMRE ANDREA [id number] 2014-Pres [address] Medic aid [place]CARE [place] [id number] MANAGED MEDICAID [place] documented as of this encounter
--- OUTSIDE RECORDS SUMMARY | 2020-03-10 03:52 | XMS REPORT | Summary of Care ---
:1960 Author Organization [facility] Address [address] [place] [address] Care Team Providers Name Role Phone Gatito Chauhan MD Primary Care Provider Zeke Márquez Insurance Hmo Norah Dubose RNotolaryngology surgeon Reason for Visit Reason Comments Results Encounter Details Date Type Department Care Team Description 02/01/2020 Telephone [facility] Neurology, Nick Denson, Results [facility] [address] [place] [phone] Allergies No Known Allergiesdocumented as of this encounter (statuses as of 02/01/2020) Medications Medication Sig Dispensed Refills Start Date [...] as of this encounter (statuses as of 02/01/2020) Active Problems Problem Noted Date Respiratory distress 12/29/2019 E44.0 Moderate protein calorie malnutrition 12/27/2019 Cocaine abuse 12/25/2019 At risk for seizures 12/25/2019 Acute ischemic left MCA stroke 12/24/2019 Coronary artery disease without angina pectoris 2015 HTN (hypertension) 07/23/2015 Chest pain 07/22/2015 PAD (peripheral artery disease) 05/10/2015 documented as of this encounter (statuses as of 02/01/2020) Social History Tobacco Use Types Packs/Day Years [...] with No / Unsure 01/31/2020 9:59 AM REHABILITATION PHYSICIAN someone who was confirmed or suspected to have 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 documented as of this encounter Last Filed Vital Signs Not on filedocumented in this encounter Miscellaneous Notes Telephone Encounter - Nick Denson MD - 02/01/2020 4:17 PM REHABILITATION PHYSICIAN Called her to discuss her CT chest results but I was unable to reach her so I left a voicemail. Further evaluation and management of abnormal CT chest results as per her PCP. Nick. documented in this encounter Plan of Treatment Date Type Specialty Care Team Description 02/06/2020 Office Visit Internal Medicine Ryann Chauhan MD 146 [facility] r [facility] 103 [place], [place] [address] 03/14/2020 Appointment Radiology Renan Marcial MD [address] [place] [address] 77 555 06/11/2020 Office Visit Cardiology Daya Love M D 146 [facility] [address] [place], [place] [address] Health Maintenance Due Date [...] / Subscriber ID Effective Phone Address T [facility] Group Dates EMRE ANDREA [id number] 2015-Pres [address] Medic aid HEALTHCARE - HE[place]CARE [place] [id number] MANAGED MEDICAID [place] documented as of this encounter
--- OUTSIDE RECORDS SUMMARY | 2020-03-10 03:53 | XMS REPORT | Summary of Care ---
:1960 Author Organization [facility] - [facility] Address [address] [place] [address] Care Team Providers Name Role Phone Gatito Chauhan MD Primary Care Provider Zeke Márquez Insurance Hmo Reason for Visit Reason Comments Social Work Insurance Home Care Planning Provider Encounter Details Date Type Department Care Team Description 02/07/2020 Patient Outreach [facility] Nikki Blount, Social W ork Pediatric and Adult CLOTH BURLER (Insurance); Home Primary Care- [address] [place] [address] [facility] [address] [place] [address] Drive, [address] [place] [address] Allergies No Known Allergiesdocumented as of this encounter (statuses as of 02/07/2020) Medications Medication Sig Dispensed Refills Start Date End Date Status aspirin 81 mg chewable Take 1 tablet 90 tablet 3 02/06/2020 Active tabletIndications: through enteral Cerebrovascular accident tube daily. (CVA), unspecified mechanism clopidogreL 75 mg Take 1 tablet 90 tablet 3 02/06/2020 Active tabletIndications: through enteral Cerebrovascular accident tube daily. (CVA), unspecified mechanism levETIRAcetam 100 mg/mL Take 7.5 mL 1500 mL 3 02/06/2020 Active oral through enteral solutionIndications: tube 2 (two) Cerebrovascular accident times daily. (CVA), unspecified mechanism amLODIPine 10 mg Take 1 tablet 90 tablet 3 02/06/2020 Active tabletIndications: through enteral Coronary artery disease tube daily. involving [place] coronary artery of [place] heart without angina pectoris, Cerebrovascular accident (CVA), unspecified mechanism, Essential hypertension atorvastatin 40 mg Take 1 tablet 90 tablet 3 02/06/2020 Active tabletIndications: through enteral Coronary artery disease tube at involving [place] bedtime. coronary artery of [place] heart without angina pectoris, Cerebrovascular accident (CVA), unspecified mechanism, Essential hypertension famotidine 20 mg Take 1 tablet 90 tablet 3 02/06/2020 Active tabletIndications: by mouth 2 Gastroesophageal reflux (two) times disease, unspecified daily. whether esophagitis present lisinopriL 40 mg Take 1 tablet 90 tablet 3 02/06/2020 Active tabletIndications: by mouth daily. Coronary artery disease involving [place] coronary artery of [place] heart without angina pectoris, Essential hypertension Polyethylene Glycol 3350 Take 1 Packet 180 Packet 3 02/06/2020 Active 17 gram through enteral powderIndications: tube 2 (two) Constipation, times daily. unspecified constipation type risperiDONE 0.5 mg Take 1 tablet 180 tablet 3 02/06/2020 Active tabletIndications: through enteral Schizophrenia, tube 2 (two) unspecified type times daily. 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 documented as of this encounter Last Filed Vital Signs Not on filedocumented in this encounter Progress Notes Nikki Blount LMSW - 02/07/2020 1:43 PM CSTSocial Work Note Public Area Attendant (SW) received consult for Provider and Insurance. SW spoke with patients Daughter (Elyssa Scanlon p: [phone] Em: [email or web address]) reviewed SSA-disability. Daughter advised patient only receiving Medicaid; self-employed/never .SW reviewed SSA resources; providing contact information to research borrowing work credits from adult children. Daughter verbalized understanding. SW reviewed [facility]-Community Care Services program (p: [phone]) and [place] Benefits (Provider Program and Managed Care Insurance Plans). Daughter verbalized understanding. SW reviewed advance directives (MPOA/SDPOA). Daughter explained no documents in place. SW provided education and forms. No new needs identified. SW services complete. Nikki Blount LMSW, [facility] Public Area Attendant- Waste Water Operator Management [facility]- [facility] ,and [place] Pager: [phone] Em: [email or web address] documented in this encounter Plan of Treatment Date Type Specialty Care Team Description 02/17/2020 Office Visit Thoracic Surgery Hossein Stewart MD [address] [place], [place] [phone] 02/22/2020 Office Visit Neurology Nick Denson MD [address] [place] [phone] Office Visit Pulmonary Disease Bud Haynes MD [address] [address] [phone] 03/14/2020 Appointment Radiology Renan Marcial MD [address] [place] [address] [address] [place], [place] [address] [phone] 06/11/2020 Office Visit Cardiology Daya Love M D [address] [place] [address] [place] [address] [phone] Health Maintenance Due Date Last Done Comments [...] Problems Progress Quit using Tobacco Use No Palatine, tobacco Roberta (cigarettes, smokeless, etc) documented as of this encounter Results Not on filedocumented in this encounter Additional Health Concerns Infection Onset Date Last Indicated Resolved Time Contact- MRSA 01/12/2020 01/12/2020 documented as of this encounter Insurance Payer Benefit Plan / Subscriber ID Effective Phone Address T [facility] Group Dates EMRE EMERSONINA [id number] 2014-Pres [address]OX Medic aid HEALTHCARE [place]CARE [place] [id number] MANAGED MEDICAID [place], [place] documented as of this encounter
--- OUTSIDE RECORDS SUMMARY | 2020-03-10 03:53 | XMS REPORT | Summary of Care ---
:1960 Author Organization [facility] - Health Address [address] [place] [address] Care Team Providers Name Role Phone Gatito Chauhan MD Primary Care Provider Zeke Márquez Insurance Hmo Norah Dubose RNmanager professional development Encounter Details Date Type Department Care Team Description 01/19/2020 Orders Only [facility] Doctor Unassigned, No 301 [facility] Name [place] [phone] Allergies No Known Allergiesdocumented as of this encounter (statuses as of 02/07/2020) Medications No known medicationsdocumented as of this encounter (statuses as of [...] with No / Unsure 02/06/2020 10:40 AM FLEXOGRAPHIC PRESS HELPER someone who was confirmed or suspected to have 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 documented as of this encounter Last Filed Vital Signs Not on filedocumented in this encounter Plan of Treatment Date Type Specialty Care Team Description 02/17/2020 Office Visit Thoracic Surgery Hossein Stewart MD 301 [place] [address] [phone] 02/22/2020 Office Visit Neurology Nick Denson MD 400 [place], [place] [address] 2020 Office Visit Pulmonary Disease Bud Haynes MD [address] [address] [phone] 03/14/2020 Appointment Radiology Renan Marcial MD 301 [place], [place] [address] 06/11/2020 Office Visit Cardiology Daya Love M D [address] [facility] [address] [place] [address] [phone] Health Maintenance Due Date Last Done Comments [...] Name Priority Date/Time Associated Diagnosis Comme nts PHYSICIAN CERTIFICATION Routine 01/19/2020 12:01 AM STATEMENT FLEXOGRAPHIC PRESS HELPER documented in this encounter Results Not on filedocumented in this encounter Additional Health Concerns Infection Onset Date Last Indicated Resolved Time Contact- MRSA 01/12/2020 01/12/2020 documented as of this encounter Insurance Payer Benefit Plan / Subscriber ID Effective Phone Address T ype Group Dates EMRE ANDREA [id number] 2014-Pres [address]OX Medic aid HEALTHCARE - HEALTHCARE [place] [id number] MANAGED MEDICAID [place] documented as of this encounter
--- OUTSIDE RECORDS SUMMARY | 2020-03-10 03:54 | XMS REPORT | Summary of Care ---
:1960 Author Organization [facility] Address [address] [place] [address] Care Team Providers Name Role Phone Gatito Chauhan MD Primary Care Provider Zeke Márquez Insurance Hmo Reason for Visit Reason Comments Orders Home Health Assessment Encounter Details Date Type Department Care Team Description 02/08/2020 Telephone [facility] Pediatric Layla Chauhan Orders (Home Health); and Adult Primary A, Assessment Care- [address], [address] [place] [address] [place], [place] [phone] [address] [phone] Allergies No Known Allergiesdocumented as of this encounter (statuses as of 02/11/2020) Medications Medication Sig Dispensed Refills Start Date [...] enteral Coronary artery disease tube daily. involving [place] coronary artery of [place] heart without angina pectoris, Cerebrovascular accident (CVA), unspecified mechanism, Essential hypertension atorvastatin 40 mg Take 1 tablet 90 tablet 3 02/06/2020 Active tabletIndications: through enteral Coronary artery disease tube at involving [place] bedtime. coronary artery of [place] heart without angina pectoris, Cerebrovascular accident (CVA), unspecified mechanism, Essential hypertension famotidine 20 mg Take 1 tablet 90 tablet 3 02/06/2020 Active tabletIndications: by mouth 2 Gastroesophageal reflux (two) times disease, unspecified daily. whether esophagitis present lisinopriL 40 mg Take 1 tablet 90 tablet 3 02/06/2020 Active tabletIndications: by mouth daily. Coronary artery disease involving [place] coronary artery of [place] heart without angina pectoris, Essential hypertension Polyethylene Glycol 3350 Take 1 Packet 180 Packet 3 02/06/2020 Active 17 gram through enteral powderIndications: tube 2 (two) Constipation, times daily. unspecified constipation type risperiDONE 0.5 mg Take 1 tablet 180 tablet 3 02/06/2020 Active tabletIndications: through enteral Schizophrenia, tube 2 (two) unspecified type times daily. documented as of this encounter (statuses as of 02/11/2020) Active Problems Problem Noted Date Respiratory distress 12/29/2019 E44.0 Moderate protein calorie malnutrition 12/27/2019 Cocaine abuse 12/25/2019 At risk for seizures 12/25/2019 Acute ischemic left MCA stroke 12/24/2019 Coronary artery disease without angina pectoris 2015 HTN (hypertension) 07/23/2015 Chest pain 07/22/2015 PAD (peripheral artery disease) 05/10/2015 documented as of this encounter (statuses as of 02/11/2020) Social History Tobacco Use Types Packs/Day Years [...] with No / Unsure 02/06/2020 10:40 AM MANAGER OF RADIOLOGY someone who was confirmed or suspected to have 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 documented as of this encounter Last Filed Vital Signs Not on filedocumented in this encounter Miscellaneous Notes Telephone Encounter - Bev Chauhan MD - 02/08/2020 5:10 PM MANAGER OF RADIOLOGY Received a call back. They cannot accept verbal orders due to her insurance. Wrote letter, signed it, and faxed it. elephone Encounter - Bev Chauhan MD - 02/08/2020 4:44 PM CSTCalled IP. Gave verbal orders to nurse. Rogers change once a month starting tomorrow, and speech therapy for stroke. Also for nurse to call me if they are having any issues tomorrow. Gave them my cell phone number. elephone Encounter - Ida Darling - 02/08/2020 3:27 PM CSTPatient also wanted to mention she is refusing take peg tube feeding and medication since yesterday afternoon. elephone Encounter - Alice Maldonado - 02/08/2020 3:[facility] the [facility] of [facility] order for cath care. The patient's daughter told the nurse that Dr. Chauhan was going to send orders regarding her mother's cath. documented in this encounter Plan of Treatment Date Type Specialty Care Team Description 02/17/2020 Office Visit Thoracic Surgery Hossein Stewart MD [address] [place] [phone] 02/22/2020 Office Visit Neurology Nick Denson MD [address] [place] [phone] Office Visit Pulmonary Disease Bud Haynes MD [address] [place] [address] [phone] 03/14/2020 Appointment Radiology Renan Marcial MD [address] [place] [address] 77 [address] 06/11/2020 Office Visit Cardiology Daya Love M D [address] [place] [address] [place] [address] [phone] Health Maintenance Due Date Last Done Comments [...] Address T ype Group Dates EMRE ANDREA [id number] 2015-Pres Jessica [employer]FFERSON Medic aid HEALTHCARE - HEALTHCARE [place] [id number] MANAGED MEDICAID [place], [place] documented as of this encounter
--- OUTSIDE RECORDS SUMMARY | 2020-03-10 03:54 | XMS REPORT | Summary of Care ---
:1960 Author Organization [facility] Address [address] [place] [address] Care Team Providers Name Role Phone Gatito Chauhan MD Primary Care Provider Zeke Márquez Insurance Hmo Reason for Visit Reason Onset Date Comments Information 02/10/2020 Encounter Details Date Type Department Care Team Description 02/10/2020 Nurse Triage [facility] Keisha Lockett, RN Information [address] [place] [phone] [place] [phone] Allergies No Known Allergiesdocumented as of this encounter (statuses as of 02/10/2020) Medications Medication Sig Dispensed Refills Start Date [...] enteral Coronary artery disease tube daily. involving [place] coronary artery of [place] heart without angina pectoris, Cerebrovascular accident (CVA), unspecified mechanism, Essential hypertension atorvastatin 40 mg Take 1 tablet 90 tablet 3 02/06/2020 Active tabletIndications: through enteral Coronary artery disease tube at involving [place] bedtime. coronary artery of [place] heart without angina pectoris, Cerebrovascular accident (CVA), unspecified mechanism, Essential hypertension famotidine 20 mg Take 1 tablet 90 tablet 3 02/06/2020 Active tabletIndications: by mouth 2 Gastroesophageal reflux (two) times disease, unspecified daily. whether esophagitis present lisinopriL 40 mg Take 1 tablet 90 tablet 3 02/06/2020 Active tabletIndications: by mouth daily. Coronary artery disease involving [place] coronary artery of [place] heart without angina pectoris, Essential hypertension Polyethylene Glycol 3350 Take 1 Packet 180 Packet 3 02/06/2020 Active 17 gram through enteral powderIndications: tube 2 (two) Constipation, times daily. unspecified constipation type risperiDONE 0.5 mg Take 1 tablet 180 tablet 3 02/06/2020 Active tabletIndications: through enteral Schizophrenia, tube 2 (two) unspecified type times daily. 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 documented as of this encounter Last Filed Vital Signs Not on filedocumented in this encounter Miscellaneous Notes Telephone Encounter - Keisha Lockett RN - 02/10/2020 4:17 PM CSTFunmilayo Mcmillan is a 59 year old female whose daughter is calling today with question about herfeeding tube. Patient's daughter states "won't let me give her her Jevity tube feeding, and medications by feeding tube". Daughter wants to know if she can sit the patient up and feed her by mouth. Daughter states "the feeding tube was placed after her stroke because she was having difficulty swallowing and choking on her own spit". Advised daughter that if tube was place due to swallowing difficultyand she has not been cleared by a provider for oral feedings, there could be a risk she would choke and aspirate food or fluids into her lungs if fed orally. Daughter voices understanding. Per daughterpatient was seen in ED yesterday and sent back home. Has zheng cath in place and daughter states she"changed the bag a little bit ago". Discussed signs/symptoms of dehydration with daughter and advised calling the [facility] or taking her back to ED if noticed. Daughter voices understanding. Per conversation with daughter, RN will forward this conversation to patient's PCP and neurology as she has a follow up appointment with them on 02/22/2020. Reason for Disposition General information question, no triage required and triager able to answer question Protocols used: INFORMATION ONLY CALL - NO [id number] elephone Encounter - Keisha Lockett RN - 02/10/2020 4:17 PM CSTRegarding: Feeding Tube questions ----- Message from Rinku Tuttle sent at 02/10/2020 3:35 PM CLINICAL PROFESSOR ----- Funmilayo Mcmillan is a 59 year old female who is rejecting feeding tube and has questions. documented in this encounter Plan of Treatment Date Type Specialty Care Team Description 02/17/2020 Office Visit Thoracic Surgery Hossein Stewart MD [address] [place] [phone] 02/22/2020 Office Visit Neurology Nick Denson MD 400 [place], [place] [address] 2020 Office Visit Pulmonary Disease Bud Haynes MD [address] [address] [phone] 03/14/2020 Appointment Radiology Renan Marcial MD [address] [place] [phone] 06/11/2020 Office Visit Cardiology Daya Love M D [address] [place] [address] [phone] Health Maintenance Due Date Last Done Comments [...] Subscriber ID Effective Phone Address T [facility] Group Dates EMRE ANDREA [id number] 2015-Pres [address] Medic aid HEALTHCARE - HE[place]CARE [place] [id number] MANAGED MED[place]ID [place] documented as of this encounter
--- OUTSIDE RECORDS SUMMARY | 2020-03-10 03:54 | XMS REPORT | Summary of Care ---
:1960 Author Organization [facility] - [facility] Address [address] [place] [id number] Care Team Providers Name Role Phone Gatito Chauhan MD Primary Care Provider Zeke Márquez Insurance [employer] Reason for Visit Reason Comments Assessment Encounter Details Date Type Department Care Team Description 02/11/2020 Telephone [facility] and Janiya Chauhan, [place] [facility]- MD Asekw [address] [place] [address] [address] [facility] [address] [place] [address] [place] [address] [phone] Allergies No Known Allergiesdocumented as of this [...] enteral Coronary artery disease tube daily. involving [place] coronary artery of [place] heart without angina pectoris, Cerebrovascular accident (CVA), unspecified mechanism, Essential hypertension atorvastatin 40 mg Take 1 tablet 90 tablet 3 02/06/2020 Active tabletIndications: through enteral Coronary artery disease tube at involving [place] bedtime. coronary artery of [place] heart without angina pectoris, Cerebrovascular accident (CVA), unspecified mechanism, Essential hypertension famotidine 20 mg Take 1 tablet 90 tablet 3 02/06/2020 Active tabletIndications: by mouth 2 Gastroesophageal reflux (two) times disease, unspecified daily. whether esophagitis present lisinopriL 40 mg Take 1 tablet 90 tablet 3 02/06/2020 Active tabletIndications: by mouth daily. Coronary artery disease involving [place] coronary artery of [place] heart without angina pectoris, Essential hypertension Polyethylene [...] with No / Unsure 02/06/2020 10:[address]ER someone who was confirmed or suspected to have 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 documented as of this encounter Last Filed Vital Signs Not on filedocumented in this encounter Miscellaneous Notes Telephone Encounter - Bev Chauhan MD - 02/11/2020 2:[address] Spoke with patient's daughter 02/08 with the nurse. she reports patient will not let anyone touchthe PEG tube. Patient allowed herself to be taken to the ER. Had UTI, was given antibiotics. On 02/11/2020 I saw culture results and called her daughter to check on patient. Called twice, went to [facility]. [facility]. Will call again Thursday to check on her. Below is the ER note and urine culture results from [facility] ER. NAME: FUNMILAYO ALLAN ADMIT DR: ADMIT: ATTEND DR: : 1960 PT TYPE: DEP ER LOCATION: ER DISCHARGE: 02/09/20 Report Status: Signed Physician Documentation [facility] Name: Funmilayo Allan Age: 59 yrs Sex: Female : 1960 Arrival Date: 02/09/2020 Time: 10:03 Bed 2 Private MD: ED Physician Arron Schulz HPI: 02/08 10:46 This 59 yrs old Female presents to ER via EMS with complaints of Problem With ma2 Feeding Tube. 10:46 The patient presents with abdominal pain peg tube not working . Onset: The ma2 symptoms/episode began/occurred acutely. Associated signs and symptoms: Pertinent negatives: blood in stools, constipation, dysuria, fever. Severity of pain: At its worst the pain was moderate in the emergency department the pain is unchanged. The patient has not experienced similar symptoms in the past. Historical: - Allergies: 10:29 No Known Allergies; jl7 - Home Meds: 10:29 Risperdal 0.5 mg Oral tab 2 times per day [Active]; clopidogrel 75 mg oral tab 1 tab jl7 once daily [Active]; famotidine 20 mg Oral tab 1 tab every 12 hours [Active]; amlodipine 10 mg tab 1 tab once daily [Active]; levetiracetam 100 mg/mL oral soln 705 mL 2 times per day [Active]; lisinopril 40 mg Oral tab 1 tab once daily [Active]; atorvastatin 40 mg oral tab 1 tab once daily [Active]; aspirin 81 mg Oral chew 1 tab once daily [Active]; - PMHx: 10:29 CVA; Hypertension; Hyperlipidemia; Atrial Fib; Depression; jl7 - Immunization history:: Adult Immunizations up to date. - Social history:: Smoking status: Patient denies any tobacco usage or history of. Patient/guardian denies using alcohol, street drugs, The patient lives with family. - Family history:: not pertinent. ROS: 10:46 Constitutional: Negative for fever, chills, and weight loss. ma2 10:46 All other systems are negative. Exam: 10:46 Constitutional: This is a well developed, well nourished patient who is awake, alert, ma2 and in no acute distress. Head/Face: Normocephalic, atraumatic. Eyes: Pupils equal round and reactive to light, extra-ocular motions intact. Lids and lashes normal. Conjunctiva and sclera are non-icteric and not injected. Cornea within normal limits. Periorbital areas with no swelling, redness, or edema. ENT: Nares patent. No nasal discharge, no septal abnormalities noted. Tympanic membranes are normal and external auditory canals are clear. Oropharynx with no redness, swelling, or masses, exudates, or evidence of obstruction, uvula midline. Mucous membranes moist. Neck: Trachea midline, no thyromegaly or masses palpated, and no cervical lymphadenopathy. Supple, full range of motion without nuchal rigidity, or vertebral point tenderness. No Meningismus. Chest/axilla: Normal chest wall appearance and motion. Nontender with no deformity. No lesions are appreciated. Cardiovascular: Regular rate and rhythm with a normal S1 and S2. No gallops, murmurs, or rubs. Normal PMI, no JVD. No pulse deficits. Respiratory: Lungs have equal breath sounds bilaterally, clear to auscultation and percussion. No rales, rhonchi or wheezes noted. No increased work of breathing, no retractions or nasal flaring. Abdomen/GI: Soft, non-tender, with normal bowel sounds. No distension or tympany. No guarding or rebound. No evidence of tenderness throughout. Back: No spinal tenderness. No costovertebral tenderness. Full range of motion. Skin: Warm, dry with normal turgor. Normal color with no rashes, no lesions, and no evidence of cellulitis. MS/ Extremity: Pulses equal, no cyanosis. Neurovascular intact. Full, normal range of motion. Neuro: she is non verbal at baseline , s/p [place] Psych: Awake, alert, with orientation to person, place and time. Behavior, mood, and affect are within normal limits. Vital Signs: 10:11 BP 167 / 81; Pulse 71; Resp 16; Temp 97.6(TE); Pulse Ox 100% on R/A; ss 11:01 BP 153 / 86; Pulse 64; Resp 18; Pulse Ox 100% ; sv 12:18 BP 154 / 86; Pulse 66; Resp 13; Pulse Ox 99% ; jl7 13:14 BP 168 / 85; Pulse 62; Resp 17; Pulse Ox 100% ; jl7 MDM: 10:05 Patient medically screened. ma2 10:46 Differential diagnosis: gastritis, gastroesophageal reflux disease, Irritable bowel ma2 syndrome, pancreatitis. 13:04 Data reviewed: vital signs, nurses notes. Counseling: I had a detailed discussion with ma2 the patient and/or guardian regarding: the historical points, exam findings, and any diagnostic results supporting the discharge/admit diagnosis, the presence of at least one elevated blood pressure reading (>120/80) during this emergency department visit, the need for outpatient follow up. Response to treatment: the patient's symptoms have markedly improved after treatment. 02/08 10:07 Order name: BMP me2 02/08 10:07 Order name: CBC with Diff; Complete Time: 12:01 [facility] 02/08 10:07 Order name: Hepatic Function me2 02/08 10:07 Order name: Lipase me2 02/08 10:08 Order name: Basic Metabolic Panel; Complete Time: 12:01 [facility] 02/08 10:08 Order name: Liver (Hepatic) Function; Complete Time: 12:01 [facility] 02/08 10:07 Order name: CT Abd/Pelvis - IV Contrast Only; Complete Time: 12:01 [facility] 02/08 10:07 Order name: Chest Single View XRAY; Complete Time: 12:01 [facility] 02/08 10:08 Order name: Lipase; Complete Time: 12:01 [facility] 02/08 12:06 Order name: Urine Culture [facility] 02/08 12:06 Order name: Urine Microscopic Only; Complete Time: 13:04 [facility] 02/08 12:23 Order name: Urine Dipstick--Ancillary (enter results); Complete Time: 13:04 02/08 10:07 Order name: IV Saline Lock; Complete Time: 10: [facility] 02/08 10:07 Order name: Labs collected and sent; Complete Time: : [facility] 02/08 10:07 Order name: NPO; Complete Time: 10: [facility] 02/08 10:07 Order name: Urine Dipstick-Ancillary (obtain specimen); Complete Time: 12:17 [facility] Administered Medications: 10:23 Drug: Zofran (Ondansetron) 4 mg Route: IVP; Site: left antecubital; 7 11:00 Follow up: Response: No adverse reaction sv 10:23 Drug: NS 0.9% 1000 ml Route: IV; Rate: 1000 ml; Site: left antecubital; 7 11:30 Follow up: Response: No adverse reaction; IV Status: Completed infusion; IV Intake: 7 1000ml 12:17 Drug: Rocephin 1 grams Route: IV; Rate: calculated rate; Site: left antecubital; 7 12:20 Follow up: Response: No adverse reaction; IV Status: Completed infusion jl7 Disposition: 02/09/20 13:34 Discharged to Home. Impression: Cystitis, unspecified without hematuria. - Condition is Stable. - Discharge Instructions: Urinary Tract Infection, Adult, Ilvg-[id number]. - Prescriptions for cefpodoxime 100 mg Oral Tablet - take 1 tablet by ORAL route every 12 hours for 10 days take with food; 20 tablet. - Medication Reconciliation Form, Thank You Letter, Antibiotic Education, Prescription Opioid Use form. - Follow up: Private Physician; When: Tomorrow; Reason: Continuance of care. Signatures: [facility] Francesca Caputo RN RN Rose Choe RN RN jl7 Arron Schulz MD MD [facility] Nichelle Perkins RN sv Corrections: (The following items were deleted from the chart) 14:22 13:34 02/09/2020 13:34 Discharged to Home. Impression: Cystitis, unspecified without jl7 hematuria. Condition is Stable. Prescriptions for cefpodoxime 100 mg Oral Tablet - take 1 tablet by ORAL route every 12 hours for 10 days take with food; 20 tablet. and Forms are Medication Reconciliation Form, Thank You Letter, Antibiotic Education, Prescription Opioid Use. Follow up: Private Physician; When: Tomorrow; Reason: Continuance of care. ma2 02/09/[address] documented in this encounter Plan of Treatment Date Type Specialty Care Team Description 02/17/2020 Office Visit Thoracic Surgery Hossein Stewart MD [address] [place] [address] [phone] 02/22/2020 Office Visit Neurology Nikc Denson MD [address] [place] [address] [phone] Office Visit Pulmonary Disease Bud Haynes MD [address] [id number] 03/14/2020 Appointment Radiology Renan Marcial MD [address] [place] [address] [phone] 06/11/2020 Office Visit Cardiology Daya Love M D [address] [place] [address] [phone] Health Maintenance Due Date Last Done Comments [...] Address T e Group Dates EMRE ANDREA [id number] 2014-[address] [employer] [facility] [place] [id number] MANAGED MEDICAID [place], [place] documented as of this encounter
--- OUTSIDE RECORDS SUMMARY | 2020-03-10 03:54 | XMS REPORT | Summary of Care ---
:1960 Author Organization [facility] Address [address] [place] [address] Care Team Providers Name Role Phone Gatito Hook MD Primary Care Provider Zeke Márquez Insurance Hmo Reason for Referral (GAVI) Status Reason Specialty Diagnoses / Referred By Referred To Procedures Contact Contact New Request Pulmonary Disease Diagnoses Lung mass Gissel, Procedures CONSULT/REFERRAL PULMONARY Bev Mederos MD [address] [place] [address] [facility] [address] [place] [address] Reason for Visit Reason Comments Follow-up (Routine) Status Reason Specialty Diagnoses / Referred By Referred To Procedures Contact Contact New Request Family Medicine Diagnoses Altered mental status, unspecified altered mental status type Nick Denson, Procedures Discharge Follow-up: PCP BEV HOOK; 3-5 Days MD Bev Lowery MD [address] [place] [address] [address] Phone: [place], [place] [phone] Encounter Details Date Type Department Care Team Description 02/06/[address] [facility] Gissel Coronary artery disease involving [place] coronary artery of [place] heart without angina pectoris (Primary Dx); Pediatric and Adult Bev Mederos MD Cerebrovascular accident (CVA), unspecif ied mechanism; Primary Care- [address] Speech problem; [address] Essential hypertension; [address] [facility] [place] [address] Gastroesophageal reflux disease, unspeci fied whether esophagitis present; Drive, [address] Constipation, unspecified constipation t ype; [place], [place] Schizophr enia, unspecified type; [phone] Insurance coverage problems; [phone] Requires daily assistance for activities of daily living (ADL) and comfort needs; Lung mass Allergies No Known Allergiesdocumented as of this encounter (statuses as of 02/11/2020) Medications Medication Sig Dispensed Refills Start End Date Status Date aspirin 81 mg Take 1 90 tablet 3 Active chewable tablet 0 tabletIndications: through Cerebrovascular enteral tube accident (CVA), daily. unspecified mechanism clopidogreL 75 mg Take 1 90 tablet 3 Ac tive tabletIndications: tablet 0 Cerebrovascular through accident (CVA), enteral tube unspecified mechanism daily. levETIRAcetam 100 Take 7.5 mL 1500 mL 3 Active mg/mL oral through 0 solutionIndications: enteral tube Cerebrovascular 2 (two) accident (CVA), times daily. unspecified mechanism amLODIPine 10 mg Take 1 90 tablet 3 Act martha tabletIndications: tablet 0 Coronary artery through disease involving enteral tube [place] coronary daily. artery of [place] heart without angina pectoris, Cerebrovascular accident (CVA), unspecified mechanism, Essential hypertension atorvastatin 40 mg Take 1 90 tablet 3 A ctive tabletIndications: tablet 0 Coronary artery through disease involving enteral tube [place] coronary at bedtime. artery of [place] heart without angina pectoris, Cerebrovascular accident (CVA), unspecified mechanism, Essential hypertension famotidine 20 mg Take 1 90 tablet 3 Act martha tabletIndications: tablet by 0 Gastroesophageal mouth 2 reflux disease, (two) times unspecified whether daily. esophagitis present lisinopriL 40 mg Take 1 90 tablet 3 Act martha tabletIndications: tablet by 0 Coronary artery mouth daily. disease involving [place] coronary artery of [place] heart without angina pectoris, Essential hypertension Polyethylene Glycol Take 1 180 Packet 3 Active 3350 17 gram Packet 0 powderIndications: through Constipation, enteral tube unspecified 2 (two) constipation type times daily. risperiDONE 0.5 mg Take 1 180 tablet 3 Active tabletIndications: tablet 0 Schizophrenia, through unspecified type enteral tube 2 (two) times daily. amLODIPine 10 mg Take 1 30 tablet 0 02/06/20 Dis continued tabletIndications: tablet 0 20 ( Reorder) Altered mental through status, unspecified enteral tube altered mental status daily. type atorvastatin 40 mg Take 1 30 tablet 0 02/06/20 D iscontinued tabletIndications: tablet 0 20 ( Reorder) Altered mental through status, unspecified enteral tube altered mental status at bedtime. type risperiDONE 0.5 mg Take 1 60 tablet 0 02/06/20 D iscontinued tabletIndications: tablet 0 20 ( Reorder) Altered mental through status, unspecified enteral tube altered mental status 2 (two) type times daily. Polyethylene Glycol Take 1 60 Packet 0 02/06/20 Discontinued 3350 17 gram Packet 0 20 (Reorde r) powderIndications: through Altered mental enteral tube status, unspecified 2 (two) altered mental status times daily. type famotidine 20 mg Take 1 30 tablet 10 02/06/20 Dis continued tabletIndications: tablet by 0 20 ( Reorder) Altered mental mouth 2 status, unspecified (two) times altered mental status daily. type lisinopriL 40 mg Take 1 30 tablet 11 02/06/20 Dis continued tabletIndications: tablet by 0 20 ( Reorder) Altered mental mouth daily. status, unspecified altered mental status type clopidogreL 75 mg Take 1 30 tablet 2 02/06/20 Di scontinued tabletIndications: tablet 0 20 ( Reorder) Altered mental through status, unspecified enteral tube altered mental status daily for 90 type days. aspirin 81 mg Take 1 30 tablet 11 02/06/20 Discon tinued chewable tablet 0 20 (Reorder) tabletIndications: through Altered mental enteral tube status, unspecified daily. altered mental status type levETIRAcetam 100 Take 7.5 mL 473 mL 2 02/06/20 Discontinued mg/mL oral through 0 20 (Reorder) solutionIndications: enteral tube Altered mental 2 (two) status, unspecified times daily. altered mental status type documented as of this encounter (statuses as of 02/11/2020) Active Problems Problem Noted Date History of stroke 02/11/2020 Requires daily assistance for activities of daily marta ng (ADL) and comfort 02/11/2020 needs Lung mass 02/11/2020 Speech problem 02/11/2020 E44.0 Moderate protein calorie malnutrition 12/27/2019 Cocaine abuse 12/25/2019 At risk for seizures 12/25/2019 Coronary artery disease without angina pectoris 2015 HTN (hypertension) 07/23/2015 PAD (peripheral artery disease) 05/10/2015 documented as of this encounter (statuses as of 02/11/2020) Resolved Problems Problem Noted Date Resolved Date Respiratory distress 12/29/2019 02/11/2020 Acute ischemic left MCA stroke 12/24/2019 0 Chest pain 07/22/2015 02/11/2020 documented as of this encounter (statuses as [...] with No / Unsure 02/06/2020 10:40 AM FORM LAYER someone who was confirmed or suspected to have 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 documented as of this encounter Last Filed Vital Signs Vital Sign Reading Time Taken Comments Blood Pressure 139/89 02/06/2020 11:33 AM FORM LAYER Pulse 72 02/06/2020 11:33 AM FORM LAYER Temperature 36.7 C (98 F) 02/06/2020 11:33 AM FORM LAYER Respiratory Rate 18 02/06/2020 11:33 AM FORM LAYER Oxygen Saturation 100% 02/06/2020 11:33 AM FORM LAYER Inhaled Oxygen Concentration - - Weight - - Height - - Body Mass Index - - documented in this encounter Progress Notes Bev Hook MD - 02/06/2020 11:20 AM CST DOS: 02/06/2020 CC: Follow up of chronic conditions HPI: Funmilayo Mcmillan is a 59 year old female with history including has a past medical historyof CAD (coronary artery disease) (08/2013), Depression, HTN (hypertension), PAD (peripheral artery disease) (05/10/2015), Stroke, and Tuberculosis. who is being seen today for follow up of chronic conditions. Since the last visit with me she was in the hospital for a stroke. She saw vascular and in the note patient is aphasic and unable to ambulate since stroke. In the hospital, she was severe disability, bedridden, incontinent and required constant nursing care and attention. Looks like she had lung nodules. Discussed CT results dated 01/07/20: results show nodules throughout the right upper lobe. Mild bronchial wall thickening. Findings are likely infectious and less likely cancerous. Patient daughter states she is able to say 'yes' and 'no'. She has a PEG tube, daughter states the site looks good. She's wearing diapers and goes through about 6 diapers a day due to leaking from thecatheter and BMs. Daughter states she needs diapers and wipes because they are paying out of pocket right now. Daughter gets her out of bed at least twice a day. She states patient will moan and let her know when she needs to go to the bathroom. She's having BMs twice a day. Health Maintenance Discuss at future visit. Medications reviewed in EPIC, past medical history and social history and allergies reviewed. Review of Systems Gastrointestinal: Negative for diarrhea. Musculoskeletal: + decreased mobility Neurological: Positive for speech difficulty. PE: Blood pressure 139/89, pulse 72, temperature 36.7 C (98 F), temperature source Oral, resp. rate 18, SpO2 100 %. Physical Exam Vitals signs reviewed. Constitutional: General: She is sleeping. Appearance: Normal appearance. She is well-developed. HENT: Head: Normocephalic and atraumatic. Nose: Nose normal. Eyes: General: Lids are normal. No scleral icterus. Right eye: No discharge. Left eye: No discharge. Comments: Eyelids normal. Cardiovascular: Rate and Rhythm: Normal rate and regular rhythm. Heart sounds: Normal heart sounds. No murmur. No friction rub. No gallop. Pulmonary: Effort: Pulmonary effort is normal. No respiratory distress. Breath sounds: Normal breath sounds. No wheezing or rales. Abdominal: Comments: GI system: Soft. No distension, bowel sounds are normal. There is no tenderness. Skin: General: Skin is warm and dry. Findings: No rash. Neurological: Mental Status: She is oriented to person, place, and time. Psychiatric: Behavior: Behavior normal. Results: No new labs Education & Visit [...] being seen today for chronic medical conditions. Coronary artery disease involving [place] coronary artery of [place] heart without angina pectoris (primary encounter diagnosis) Comment: needs refill. Seems stable. According to neuro note inpatient she needs prolonged cardiac monitoring for 30 days, unsure why, exactly. Sent Dr. Love a message about this. Plan: amLODIPine 10 mg tablet, atorvastatin 40 mg tablet, lisinopriL 40 mg tablet Cerebrovascular accident (CVA), unspecified mechanism Comment: needs refill. Since the stroke she requires assistance with activities of daily living. [facility] has [facility] taking [facility] of her. From Dr. Newsome's note 01/02/2020: Plan: Agree to continue with short duration dual antiplatelet therapy for 3 weeks for aggressive secondary stroke prevention followed by aspirin. Atorvastatin 80 mgat bedtime, LDL 109. HbA1c 5.2, continue with aggressive vascular risk factors modification. Evaluation and management of low LVEF/CAD workup as per cardiology team. Continue telemetry. Plan for prolong ed cardiac monitoring with 30 days event monitor as outpatient. PT/OT/speech and swallow evaluation. Plan: she has upcoming appointment with neuro, will continue plavix and aspirin until then, althoughdaughter is having difficulty getting the patient to allow her to access the PEG tube. continue keppra for seizure prophylaxis. Seems to be on risperidone to keep her calm? aspirin 81 mg chewable tablet, clopidogreL 75 mg tablet, levETIRAcetam 100 mg/mL oral solution, amLODIPine 10 mg tablet, atorvastatin 40 mg tablet, CONSULT/REFERRAL SOCIAL WORK-AMBULATORY, continue risperidone Speech problem Comment: she recently had a stroke. According to chart review and speech therapy notes she had "Per MBS on 01/02, patient continues to present with severe oral and moderate pharyngealdysphagia as a result of L CVAwithmarkedimpairmentsin oral bolus control/efficiency and airway protection." Plan: will work on getting home health. NPO until speech reeval states differently. Essential hypertension Comment: needs refill. Plan: amLODIPine 10 mg tablet, atorvastatin 40 mg tablet, lisinopriL 40 mg tablet Gastroesophageal reflux disease, unspecified whether esophagitis present Comment: needs refill. Was initially on this inpatient for GI prophylaxis. Will continue for now, but not permanently. Plan: famotidine 20 mg tablet Constipation, unspecified constipation type Comment: daughter reports she's having BMs twice a day. Needs refill. Plan: Polyethylene Glycol 3350 17 gram powder Schizophrenia, unspecified type Comment: seems stable. Needs refill. Plan: risperiDONE 0.5 mg tablet Insurance coverage problems Requires daily assistance for activities of daily living (ADL) and comfort needs Comment: referral sent to social work, will see about getting provider services to help with patientcare and also getting a different medicaid due to issues with covering meds and other things. Plan: CONSULT/REFERRAL SOCIAL WORK-AMBULATORY Lung mass Comment: referral sent to pulmonary. Infections vs other. Plan: CONSULT/REFERRAL PULMONARY Return for february sometime before the for telehealth f/u chronic conditions. Plan of care, desired health behaviors, goals,& medication discussed with patient and educational resources and self management tools provided as appropriate. Patient/family/guardian voices understanding. Patient verbalized understanding & agrees to plan of care. Barriers to care: none Ability to manage care: good Scribe's Attestation I, Kaitlynn Bruce , am scribing for, and in the presence of, Bev Hook MD who performed the services described here-in. Kaitlynn Bruce, February 06, 2020, 11:58 AM Physician's Attestation I, Bev Hook MD, personally performed the services described in this documentation , asscribed by, Kaitlynn Bruce in my presence and it is both accurate and complete. Bev Hook MD February 11, 2020, 5:46 PM Iyjw-zh-nbgz attestation Funmilayo Mcmillan is a 59 year old female with has a past medical history of CAD (coronary artery disease) (08/2013), Depression, HTN (hypertension), PAD (peripheral artery disease) (05/10/2015), Stroke, and Tuberculosis. Physician ordering/certifying home health services: Dr. Bev Hook [id number]-[id number] encounter date: 02/06/2020 I certify that the following services are medically necessary for this patient, based on my clinicalfindings below: MCC : Yes Physical therapy: Yes Speech therapy : Yes Behavioral health nurse : No PROMOTIONAL DEMONSTRATOR; No ORDER TRACER: No Occupational Therapy :Yes My clinical findings support the need for home health services as follows: SN to evaluate needs, toexchange zheng out once a month until no longer needed. PT, speech, and OT to evaluate and treat post stroke. Patient with PEG tube, last speech note: Per MBS on 01/02, patient continues to present with severe oral and moderate pharyngealdysphagia as a result of L CVAwithmarkedimpairmentsin oral bolus control/efficiency and airway protection. Please recheck patient, can she take anything bymouth? I certify my clinical findings/ diagnoses support that this patient is homebound per CMS guidelines due to:Yes (include physical condition, mental impairment, physician-ordered restrictions) difficult to get from house to vehicle due to weakness from stroke (requires specific reason such as needs walker, cane, person for ambulation, if possible add inother reason such as balance, gait disturbance,weakness, blindness, etc.) I certify that this patient is under my care and that I had a [id number] encounter that meets the physician's nykr-wg-eryp requirements with this patient [place]. [place] [id number] 02/11/2020 5:42 PM Vp Scientific of Internal Medicine [facility] LAYER documented in this encounter Plan of Treatment Date Type Specialty Care Team Description 02/17/2020 Office Visit Thoracic Surgery Hossein Stewrat MD [address] [place], [place] [phone] 02/22/2020 Office Visit Neurology Nick Denson MD [address] [place], [place] [address] 2020 Office Visit Pulmonary Disease Bud Haynes MD [address] [phone] 03/14/2020 Appointment Radiology Renan Marcial MD [address] [place], [place] [address] 06/11/2020 Office Visit Cardiology Daya Love M D [address] [facility] [address] [place] [address] [phone] Health Maintenance Due Date Last Done Comments [...] Problems Progress Quit using Tobacco Use No [place], tobacco Roberta (cigarettes, smokeless, etc) documented as of this encounter Results Not on filedocumented in this encounter Visit Diagnoses Diagnosis Coronary artery disease involving [place] coronary artery of [place] heart without angina pectoris - Primary Cerebrovascular accident (CVA), unspecif ied mechanism Speech problem Other speech disturbance Essential hypertension Unspecified essential hypertension Gastroesophageal reflux disease, unspeci fied whether esophagitis present Constipation, unspecified constipation t ype Schizophrenia, unspecified type Insurance coverage problems Requires daily assistance for activities of daily living (ADL) and comfort needs Lung mass Swelling, mass, or lump in chest documented in this encounter Additional Health Concerns Infection Onset Date Last Indicated Resolved Time Contact- MRSA 01/12/2020 01/12/2020 documented as of this encounter Insurance Payer Benefit Plan / Subscriber ID Effective Phone Address T ype Group Dates EMRE ANDREA [id number] 2015-Pres [address] Medic aid [place]ALTHCARE [place] [id number] MANAGED MEDICAID [place], [place] documented as of this encounter
--- OUTSIDE RECORDS SUMMARY | 2020-03-10 03:55 | XMS REPORT | Summary of Care ---
:1960 Author Organization [facility] - [facility] Address [address] [place] [address] Care Team Providers Name Role Phone Gatito Chauhan MD Primary Care Provider Zeke Márquez Insurance Hmo Reason for Visit Reason Comments Social Work Insurance denial for (SLT ) Encounter Details Date Type Department Care Team Description 02/14/2020 Patient Outreach [facility] Nikki Blount, Social W ork Pediatric and Adult CAN LINE OPERATOR (Insurance denial Primary Care- [address] [place] [address] for (SLT) ) [place] [address] [address], [address] [place] [address] Allergies No Known Allergiesdocumented as of this encounter (statuses as of 02/14/2020) Medications Medication Sig Dispensed Refills Start Date [...] enteral Coronary artery disease tube daily. involving [place] coronary artery of [place] heart without angina pectoris, Cerebrovascular accident (CVA), unspecified mechanism, Essential hypertension atorvastatin 40 mg Take 1 tablet 90 tablet 3 02/06/2020 Active tabletIndications: through enteral Coronary artery disease tube at involving [place] bedtime. coronary artery of [place] heart without angina pectoris, Cerebrovascular accident (CVA), unspecified mechanism, Essential hypertension famotidine 20 mg Take 1 tablet 90 tablet 3 02/06/2020 Active tabletIndications: by mouth 2 Gastroesophageal reflux (two) times disease, unspecified daily. whether esophagitis present lisinopriL 40 mg Take 1 tablet 90 tablet 3 02/06/2020 Active tabletIndications: by mouth daily. Coronary artery disease involving [place] coronary artery of [place] heart without angina pectoris, Essential hypertension Polyethylene Glycol 3350 Take 1 Packet 180 Packet 3 02/06/2020 Active 17 gram through enteral powderIndications: tube 2 (two) Constipation, times daily. unspecified constipation type risperiDONE 0.5 mg Take 1 tablet 180 tablet 3 02/06/2020 Active tabletIndications: through enteral Schizophrenia, tube 2 (two) unspecified type times daily. documented as of this encounter (statuses as of 02/14/2020) Active Problems Problem Noted Date History of [...] as of this encounter (statuses as of 02/14/2020) Resolved Problems Problem Noted Date Resolved Date Respiratory distress 12/29/2019 02/11/2020 Acute ischemic left MCA stroke 12/24/2019 0 Chest pain 07/22/2015 02/11/2020 documented as of this encounter (statuses as of 02/14/2020) Social History Tobacco Use Types Packs/Day Years [...] with No / Unsure 02/06/2020 10:40 AM CANDLEMAKER someone who was confirmed or suspected to have 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 documented as of this encounter Last Filed Vital Signs Not on filedocumented in this encounter Progress Notes Nikki Blount LMSW - 02/14/2020 10:22 AM CSTSocial Work Note Netting Inspector (ROB) received consult Insurance denial for HH (SLT). SW spoke with a [place] Medicaid case therapist (Dani Marcelino p: [phone]) regarding patient needs; insurance barriers. CM reviewed patients records; advised will submit concerns to Ins CM Generalist; requesting evaluation for [employer] Waiver Program and expedited Provider services. CM explained will contact patients daughter to review HH- SLT appeal process. SW attempted to contact patients Daughter (Elyssa Scanlon p: [phone]) to provide Ins CM updates; left message. SW will continue attempts to contact. Nikki Blount LMSW, [facility] Netting Inspector- Customer Advisor Management [facility]- [facility] ,and [place] Pager: [phone] Em: [email or web address] documented in this encounter Plan of Treatment Date Type Specialty Care Team Description 02/17/2020 Office Visit Thoracic Surgery Hossein Stewart MD [address] [place] [phone] 02/22/2020 Office Visit Neurology Nick Denson MD [address] [place] [address] 2020 Office Visit Pulmonary Disease Bud Haynes MD [address] [place] [address] [phone] 03/14/2020 Appointment Radiology Renan Marcial MD [address] [place] [address] [address] [place], [place] [address] 06/11/2020 Office Visit Cardiology Daya Love M D [address] [place] [address] [place] [address] [phone] Health Maintenance Due Date Last Done Comments [...] / Subscriber ID Effective Phone Address T [facility] Group Dates EMRE ANDREA [id number] 2015-Pres [address] Medic aid HEALTHCARE [place]CARE [place] [id number] MANAGED MED[place]ID [place] documented as of this encounter
--- OUTSIDE RECORDS SUMMARY | 2020-03-10 03:55 | XMS REPORT | Summary of Care ---
:1960 Author Organization [facility] Address [address] [place] [address] Care Team Providers Name Role Phone Gatito Chauhan MD Primary Care Provider Zeke Márquez Insurance Hmo Norah Dubose RNcar lubricator Reason for Visit Reason Comments Results Encounter Details Date Type Department Care Team Description 02/01/2020 Telephone [facility] Neurology, Nick Denson, Results [facility] [address] [place] [address] [place] [address] [phone] Allergies No Known Allergiesdocumented as of this encounter (statuses as of 02/14/2020) Medications Medication Sig Dispensed Refills Start Date End Date Status amLODIPine 10 mg Take 1 30 tablet 0 01/04/2020 Di scontinued tabletIndications: tablet 0 ( Reorder) Altered mental through status, unspecified enteral tube altered mental daily. status type atorvastatin 40 mg Take 1 30 tablet 0 01/03/2020 Discontinued tabletIndications: tablet 0 ( Reorder) Altered mental through status, unspecified enteral tube altered mental at bedtime. status type risperiDONE 0.5 mg Take 1 60 tablet 0 01/03/2020 Discontinued tabletIndications: tablet 0 ( Reorder) Altered mental through status, unspecified enteral tube altered mental 2 (two) status type times daily. Polyethylene Glycol Take 1 60 Packet 0 01/03/2020 Discontinued 3350 17 gram Packet 0 (Reorde r) powderIndications: through Altered mental enteral tube status, unspecified 2 (two) altered mental times daily. status type famotidine 20 mg Take 1 30 tablet 10 01/03/2020 Di scontinued tabletIndications: tablet by 0 ( Reorder) Altered mental mouth 2 status, unspecified (two) times altered mental daily. status type lisinopriL 40 mg Take 1 30 tablet 11 01/03/2020 Di scontinued tabletIndications: tablet by 0 ( Reorder) Altered mental mouth daily. status, unspecified altered mental status type clopidogreL 75 mg Take 1 30 tablet 2 01/11/2020 D iscontinued tabletIndications: tablet 0 ( Reorder) Altered mental through status, unspecified enteral tube altered mental daily for 90 status type days. aspirin 81 mg Take 1 30 tablet 11 01/11/2020 Disco ntinued chewable tablet 0 (Reorder) tabletIndications: through Altered mental enteral tube status, unspecified daily. altered mental status type levETIRAcetam 100 Take 7.5 mL 473 mL 2 01/11/2020 Discontinued mg/mL oral through 0 (Reorder) solutionIndications enteral tube : Altered mental 2 (two) status, unspecified times [...] with No / Unsure 02/06/2020 10:40 AM TRANSFORMER COIL WINDER someone who was confirmed or suspected to have 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 documented as of this encounter Last Filed Vital Signs Not on filedocumented in this encounter Miscellaneous Notes Telephone Encounter - Lizzie Shultz RN - 02/14/2020 6:48 AM CSTPt seen by PCP 02/06/2020. Closing this encounter. elephone Encounter - Bev Chauhan MD - 02/03/2020 1:59 PM CSTPlease call patient, see if you can reach her daughter. I need her to keep her appointment next week. We have a lot to discuss. SFORMER COIL WINDER Telephone Encounter - Nick Denson MD - 02/01/2020 4:17 PM TRANSFORMER COIL WINDER Called her to discuss her CT chest results but I was unable to reach her so I left a voicemail. Further evaluation and management of abnormal CT chest results as per her PCP. Nick. documented in this encounter Plan of Treatment Date Type Specialty Care Team Description 02/17/2020 Office Visit Thoracic Surgery Hossein Stewart MD [address] [address] [phone] 02/22/2020 Office Visit Neurology [facility] MD [address] [facility] [place] [place] [address] 2020 Office Visit Pulmonary Disease Bud Haynes MD [address] [address] [phone] 03/14/2020 Appointment Radiology Renan Marcial MD [address] [place] [address] 555 06/11/2020 Office Visit Cardiology Daya Love M D [address] [place], [place] [address] [phone] Health Maintenance Due Date Last Done Comments [...] / Subscriber ID Effective Phone Address [facility] Group Dates ANDREA ANDREA [id number] 2015-Pres P [address] B[address] Medic aid [place] [id number] MANAGED MEDICAID [place], [place] documented as of this encounter
--- OUTSIDE RECORDS SUMMARY | 2020-03-10 03:55 | XMS REPORT | Summary of Care ---
:1960 Author Organization [facility] Address [address] [place] [address] Care Team Providers Name Role Phone Gatito Chauhan MD Primary Care Provider Zeke Márquez Insurance Hmo Reason for Visit Reason Comments Social Work Insurance denial for (SLT ) Encounter Details Date Type Department Care Team Description 02/14/2020 Patient Outreach [facility] Nikki Blount, Social W ork Pediatric and Adult TEMPORARY OFFICE ASSISTANT (Insurance denial Primary Care- [address] [place] [address] for (SLT) ) [place] [address] Drive, [address] [place] [address] Allergies No Known Allergiesdocumented as [...] enteral Coronary artery disease tube daily. involving [place] coronary artery of [place] heart without angina pectoris, Cerebrovascular accident (CVA), unspecified mechanism, Essential hypertension atorvastatin 40 mg Take 1 tablet 90 tablet 3 02/06/2020 Active tabletIndications: through enteral Coronary artery disease tube at involving [place] bedtime. coronary artery of [place] heart without angina pectoris, Cerebrovascular accident (CVA), unspecified mechanism, Essential hypertension famotidine 20 mg Take 1 tablet 90 tablet 3 02/06/2020 Active tabletIndications: by mouth 2 Gastroesophageal reflux (two) times disease, unspecified daily. whether esophagitis present lisinopriL 40 mg Take 1 tablet 90 tablet 3 02/06/2020 Active tabletIndications: by mouth daily. Coronary artery disease involving [place] coronary artery of [place] heart without angina pectoris, Essential hypertension Polyethylene [...] with No / Unsure 02/06/2020 10:40 AM SOLDER SPRAYER someone who was confirmed or suspected to have 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 documented as of this encounter Last Filed Vital Signs Not on filedocumented in this encounter Progress Notes Nikki Blount LMSW - 02/14/2020 10:22 AM CSTSocial Work Note Bevel Polisher (ROB) received call from Mica Builder (Dani Barlow p: [phone]) regarding Home Health services vs OP (SLT); CM Nurse Monitoring. pending/reviewing. CM advised sending PCP Star Plus Waiver Program packet to complete/return (Provider). ROB provided updates to medical team. Nikki Blount LMSW, [facility] Bevel Polisher- Manager Outpatient Management [facility] Pager: [phone] Em: [email or web address] Nikki Rolon LMSW - 02/14/2020 10:22 AM CSTSocial Work Note Bevel Polisher (ROB) received consult Insurance denial for HH (SLT). ROB spoke with a [place] Medicaid case assembler (Dani Benson p: [phone]) regarding patient needs; insurance barriers. CM reviewed patients records; advised will submit concerns to Ins CM Nurse Monitoring; requesting evaluation for Star Plus Waiver Program and expedited Provider services. CM explained will contact patients daughter to review HH- SLT appeal process. SW attempted to contact patients Daughter (Elyssa Scanlon p: [phone]) to provide Ins CM updates; left message. SW will continue attempts to contact. Nikki Blount LMSW, [facility] Bevel Polisher- Manager Outpatient Management [facility] Pager: [phone] Em: [email or web address] ER SPRAYER documented in this encounter Plan of Treatment Date Type Specialty Care Team Description 02/17/2020 Office Visit Thoracic Surgery Hossein Stewart MD [address] [address] [phone] 02/22/2020 Office Visit Neurology Nick Denson MD [address] [address] 555 2020 Office Visit Pulmonary Disease Bud Haynes MD [address] [address] [phone] 03/14/2020 Appointment Radiology Renan Marcial MD 301 [place], [place] [address] 06/11/2020 Office Visit Cardiology Daya Love M D [address] [place] [address] [address] [place] [address] 15 [phone] Health Maintenance Due Date Last Done Comments [...] ID Effective Phone Address T [facility] Group Dates EMRE ANDREA [id number] 2015-Pres [address] BOX Medic aid HE[place]CARE [place] [id number] MANAGED MEDICAID [place], [place] documented as of this encounter
--- OUTSIDE RECORDS SUMMARY | 2020-03-10 03:55 | XMS REPORT | Summary of Care ---
:1960 Author Organization [facility] Address [address] [place] [address] Care Team Providers Name Role Phone Gatito Chauhan MD Primary Care Provider Zeke Márquez Insurance Hmo Reason for Referral (Routine) Status Reason Specialty Diagnoses / Referred By Referred To Procedures Contact Contact New Request Diagnoses Cerebrovascular accident (CVA), unspecified mechanism Cardiac arrhythmia, unspecified cardiac arrhythmia type Daya Girard MD Procedures EVENT MONITOR 30 DAYS 146 [facility] [address] [place], [place] [address] Reason for Visit Reason Comments Assessment Encounter Details Date Type Department Care Team Description 02/11/2020 Telephone [facility] Pediatric and Janiya Chauhan, Assessment Adult Primary Care- MD [place] [address] [facility] [address] [facility] [address] [place] [address] [place] [address] [phone] Allergies No Known Allergiesdocumented as of this encounter (statuses as of 02/12/2020) Medications Medication Sig Dispensed Refills Start Date [...] enteral Coronary artery disease tube daily. involving [place] coronary artery of [place] heart without angina pectoris, Cerebrovascular accident (CVA), unspecified mechanism, Essential hypertension atorvastatin 40 mg Take 1 tablet 90 tablet 3 02/06/2020 Active tabletIndications: through enteral Coronary artery disease tube at involving [place] bedtime. coronary artery of [place] heart without angina pectoris, Cerebrovascular accident (CVA), unspecified mechanism, Essential hypertension famotidine 20 mg Take 1 tablet 90 tablet 3 02/06/2020 Active tabletIndications: by mouth 2 Gastroesophageal reflux (two) times disease, unspecified daily. whether esophagitis present lisinopriL 40 mg Take 1 tablet 90 tablet 3 02/06/2020 Active tabletIndications: by mouth daily. Coronary artery disease involving [place] coronary artery of [place] heart without angina pectoris, Essential hypertension Polyethylene Glycol 3350 Take 1 Packet 180 Packet 3 02/06/2020 Active 17 gram through enteral powderIndications: tube 2 (two) Constipation, times daily. unspecified constipation type risperiDONE 0.5 mg Take 1 tablet 180 tablet 3 02/06/2020 Active tabletIndications: through enteral Schizophrenia, tube 2 (two) unspecified type times daily. 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 documented as of this encounter Last Filed Vital Signs Not on filedocumented in this encounter Miscellaneous Notes Addendum Note - Daya Girard MD - 02/12/2020 4:56 PM WRAPPING MACHINE HELPER Addended by: DAYA GIRARD MD on: 02/12/2020 04:56 PM Modules accepted: Orders elephone Encounter - Bev Chauhan MD - 02/11/2020 2:58 PM CST Spoke with patient's daughter 02/08 with the nurse. she reports patient will not let anyone touchthe PEG tube. Patient allowed herself to be taken to the ER. Had UTI, was given antibiotics. On 02/11/2020 I saw culture results and called her daughter to check on patient. Called twice, went to [facility]. Will call again Thursday to check on her. Below is the ER note and urine culture results from [facility] ER. NAME: FUNMILAYO ALLAN ADMIT DR: ADMIT: ATTEND DR: DE: 1960 PT TYPE: DEP ER LOCATION: ER DISCHARGE: 02/09/20 Report Status: Signed Physician Documentation [facility] Name: Funmilayo Allan Age: 59 yrs Sex: [...] symptoms in the past. Historical: - Allergies: 10: No Known Allergies; jl7 - Home Meds: : Risperdal 0.5 mg Oral tab 2 times [...] Counseling: I had a detailed discussion with [facility] the patient and/or guardian regarding: the historical points, exam findings, and any diagnostic results supporting the discharge/admit diagnosis, the presence of at least one elevated blood pressure reading (>120/80) during this emergency department visit, the need for outpatient follow up. Response to treatment: the patient's symptoms have markedly improved after treatment. 02/08 10:07 Order name: BMP [facility] 02/08 10:07 Order name: CBC with Diff; Complete Time: 12: [facility] 02/08 10:07 Order name: Hepatic Function [facility] 02/08 10:07 Order name: Lipase [facility] 02/08 10:08 Order name: Basic Metabolic Panel; Complete Time: 12: [facility] 02/08 10:08 Order name: Liver (Hepatic) Function; Complete Time: 12: [facility] 02/08 10:07 Order name: CT Abd/Pelvis - IV Contrast Only; Complete Time: 12: [facility] 02/08 10:07 Order name: Chest Single View XRAY; Complete Time: 12:01 [facility] 02/08 10:08 Order name: Lipase; Complete Time: 12:01 [facility] 02/08 12:06 Order name: Urine Culture [facility] 02/08 12:06 Order name: Urine Microscopic Only; Complete Time: 13:04 [facility] 02/08 12:23 Order name: Urine Dipstick--Ancillary (enter results); Complete Time: 13:04 02/08 10:07 Order name: IV Saline Lock; Complete Time: 10:23 [facility] 02/08 10:07 Order name: Labs collected and sent; Complete Time: 10:23 [facility] 02/08 10:07 Order name: NPO; Complete Time: 10:23 [facility] 02/08 10:07 Order name: Urine Dipstick-Ancillary (obtain specimen); Complete Time: 12:17 [facility] Administered Medications: 10:23 Drug: Zofran (Ondansetron) 4 mg Route: IVP; Site: left antecubital; jl7 11:00 Follow up: Response: No adverse reaction sv 10:23 Drug: NS 0.9% 1000 ml Route: IV; Rate: 1000 ml; Site: left antecubital; jl7 11:30 Follow up: Response: No adverse reaction; IV Status: Completed infusion; IV Intake: jl7 1000ml 12:17 Drug: Rocephin 1 grams Route: IV; Rate: calculated rate; Site: left antecubital; jl7 12:20 Follow up: Response: No adverse reaction; IV Status: Completed infusion jl7 Disposition: 02/09/20 13:34 Discharged to Home. Impression: Cystitis, unspecified without hematuria. - Condition is Stable. - Discharge Instructions: Urinary Tract Infection, Adult, Putg-rx-Yogd. - Prescriptions for cefpodoxime 100 mg Oral Tablet - take 1 tablet by ORAL route every 12 hours for 10 days take with food; 20 tablet. - Medication Reconciliation Form, Thank You Letter, Antibiotic Education, Prescription Opioid Use form. - Follow up: Private Physician; When: Tomorrow; Reason: Continuance of care. Signatures: Dispatcher [employer] EDMS Francesca Caputo RN RN ss Leal, Jahala, RN RN jl7 Arron Schulz MD MD [facility] Nichelle Perkins RN Corrections: (The following items were deleted from [...] Reason: Continuance of care. 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 documented in this encounter Plan of Treatment Date Type Specialty Care Team Description 02/17/2020 Office Visit Thoracic Surgery Hossein Stewart MD [address] [address] [phone] 02/22/2020 Office Visit Neurology Nick Denson MD [address] [address] 2020 Office Visit Pulmonary Disease Bud Haynes MD [address] [place] [address] [phone] 03/14/2020 Appointment Radiology Renan Marcial MD [address] [place] [address] [address] [place], [place] [address] 06/11/2020 Office Visit Cardiology Daya Girard M D [address] [place] [address] [place] [address] Name Type Priority Associated Diagnoses Order S chedule EVENT MONITOR 30 PROCEDURES Routine Cerebrovascular accident 1 Occurrences DAYS (CVA), unspecified starting 02/12/2020 mechanism until 04/13/2020 Cardiac arrhythmia, unspecified cardiac arrhythmia type Health Maintenance Due Date Last Done Comments [...] filedocumented in this encounter Visit Diagnoses Diagnosis Cerebrovascular accident (CVA), unspecif ied mechanism - Primary Cardiac arrhythmia, unspecified cardiac arrhythmia type documented in this encounter Additional Health Concerns Infection Onset Date Last Indicated Resolved Time Contact- MRSA 01/12/2020 01/12/2020 documented as of this encounter Insurance Payer Benefit Plan / Subscriber ID Effective Phone Address T [facility] Group Dates EMRE ANDREA [id number] 2015-Pres [address] Medic aid [place]CARE [place]ARE [place] [id number] MANAGED MEDICAID [place], [place] documented as of this encounter
--- OUTSIDE RECORDS SUMMARY | 2020-03-10 03:55 | XMS REPORT | Summary of Care ---
:1960 Author Organization [facility] Address [address] [place] [address] Care Team Providers Name Role Phone Gatito Hook MD Primary Care Provider Zeke Márquez Insurance Hmo Reason for Referral (GAVI) Status Reason Specialty Diagnoses / Referred By Referred To Procedures Contact Contact New Request Pulmonary Disease Diagnoses Lung mass Gissel, Procedures CONSULT/REFERRAL PULMONARY Bev Mederos MD [address] [place] [address] [facility] 103 [place] [address] Reason for Visit Reason Comments Follow-up (Routine) Status Reason Specialty Diagnoses / Referred By Referred To Procedures Contact Contact New Request Family Medicine Diagnoses Altered mental status, unspecified altered mental status type Nick Denson, Procedures Discharge Follow-up: PCP BEV HOOK; 3-5 Days MD Bev Lowery MD [address] [place] [address] [place] [address] [address] Phone: [place], [place] [phone] Encounter Details Date Type Department Care Team Description 02/06/2020 Office Visit [facility] Gissel Coronary artery disease involving [place] coronary artery of [place] heart without angina pectoris (Primary Dx); Pediatric and Adult Bev Mederos MD Cerebrovascular accident (CVA), unspecif ied mechanism; Primary Care- [address] [facility] [address] [facility] Speech problem; [address] Essential hypertension; 146 [facility], [place] [address] Gastroesophageal reflux disease, unspeci fied whether esophagitis present; Drive, [address] Constipation, unspecified constipation t ype; [place], [place] Schizophr enia, unspecified type; [phone] Insurance coverage problems; [phone] Requires daily assistance for activities of daily [...] Coronary artery through disease involving enteral tube [place] coronary daily. artery of [place] heart without angina pectoris, Cerebrovascular accident (CVA), unspecified mechanism, Essential hypertension atorvastatin 40 mg Take 1 90 tablet 3 A ctive tabletIndications: tablet 0 Coronary artery through disease involving enteral tube [place] coronary at bedtime. artery of [place] heart without angina pectoris, Cerebrovascular accident (CVA), unspecified mechanism, Essential hypertension famotidine 20 mg Take 1 90 tablet 3 Act martha tabletIndications: tablet by 0 Gastroesophageal mouth 2 reflux disease, (two) times unspecified whether daily. esophagitis present lisinopriL 40 mg Take 1 90 tablet 3 Act martha tabletIndications: tablet by 0 Coronary artery mouth daily. disease involving [place] coronary artery of [place] heart without angina pectoris, Essential hypertension Polyethylene [...] with No / Unsure 02/06/2020 10:40 AM SCALE EXPERT someone who was confirmed or suspected to have 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 documented as of this encounter Last Filed Vital Signs Vital Sign Reading Time Taken Comments Blood Pressure 139/89 02/06/2020 11:33 AM SCALE EXPERT Pulse 72 02/06/2020 11:33 AM SCALE EXPERT Temperature 36.7 C (98 F) 02/06/2020 11:33 AM SCALE EXPERT Respiratory Rate 18 02/06/2020 11:33 AM SCALE EXPERT Oxygen Saturation 100% 02/06/2020 11:33 AM SCALE EXPERT Inhaled Oxygen Concentration - - Weight - [...] chronic medical conditions. Coronary artery disease involving [place] coronary artery of [place] heart without angina pectoris (primary encounter diagnosis) [...] requires assistance with activities of daily living. [facility] has been taking care of [...] Hook MD February 11, 2020, 5:46 PM Nbyd-xc-wodc attestation Funmilayo Mcmillan is a 59 year old female with has a past medical history of CAD (coronary artery disease) (08/2013), Depression, HTN (hypertension), PAD (peripheral artery disease) (05/10/2015), Stroke, and Tuberculosis. Physician ordering/certifying home health services: Dr. Bev Hook Ianp-oi-cqhc encounter date: 02/06/2020 I certify that the following services are medically necessary for this patient, based on my clinicalfindings below: long term : Yes Physical therapy: Yes Speech therapy : Yes Behavioral health nurse : No ASPHALT MIXING MACHINE OPERATOR; No AUTOMATION CLERK: No Occupational Therapy :Yes My clinical findings [...] my care and that I had a dfza-vt-wtmp encounter that meets the physician's spya-fe-vnjr requirements with this patient [place]. [place] [id number] 02/11/2020 5:42 PM Head Of Human Resources of Internal Medicine [facility] E EXPERT documented in this encounter Plan of Treatment Date Type Specialty Care Team Description 02/17/2020 Office Visit Thoracic Surgery Hossein Stewart MD [address] [place], [place] [phone] 02/22/2020 Office Visit Neurology Nick Denson MD [address] [place], [place] [address] 2020 Office Visit Pulmonary Disease Bud Haynes MD [address] [id number] 03/14/2020 Appointment Radiology Renan Marcial MD 301 [place], [place] [address] 06/11/2020 Office Visit Cardiology Daya Love M D 146 [facility] [address] [place] [address] [phone] Health Maintenance Due Date Last Done Comments [...] Problems Progress Quit using Tobacco Use No [place], tobacco Roberta (cigarettes, smokeless, etc) documented as of this encounter Results Not on filedocumented in this encounter Visit Diagnoses Diagnosis Coronary artery disease involving [place] coronary artery of [place] heart without angina pectoris - Primary Cerebrovascular [...] Address T ype Group Dates EMRE ANDREA [id number] 2015-Pres [address] Medic aid HEALTHCARE [place]ARE [place] [id number] MANAGED MEDICAID [place] documented as of this encounter
--- OUTSIDE RECORDS SUMMARY | 2020-03-10 03:56 | XMS REPORT | Summary of Care ---
:1960 Author Organization [facility] - Health Address [address] [place] [address] Care Team Providers Name Role Phone Gatito Chauhan MD Primary Care Provider Zeke Márquez Insurance Hmo Norah Dubose RNprocess project engineer Encounter Details Date Type Department Care Team Description 02/02/2020 Orders Only [facility] Doctor Unassigned, No [address] [facility] [place] [address] [address] [place] [address] Allergies No Known Allergiesdocumented as of this encounter (statuses as of 02/16/2020) Medications Medication Sig Dispensed Refills Start Date [...] as of this encounter (statuses as of 02/16/2020) Active Problems Problem Noted Date E44.0 Moderate protein calorie malnutrition 12/27/2019 Cocaine abuse 12/25/2019 At risk for seizures 12/25/2019 Coronary artery disease without angina pectoris 2015 HTN (hypertension) 07/23/2015 PAD (peripheral artery disease) 05/10/2015 documented as of this encounter (statuses as of 02/16/2020) Resolved Problems Problem Noted Date Resolved Date Respiratory distress 12/29/2019 02/11/2020 Acute ischemic left MCA stroke 12/24/2019 0 Chest pain 07/22/2015 02/11/2020 documented as of this encounter (statuses as of 02/16/2020) Social History Tobacco Use Types Packs/Day Years [...] with No / Unsure 01/31/2020 9:59 AM STEEL PLATE PRINTER someone who was confirmed or suspected to have 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 documented as of this encounter Last Filed Vital Signs Not on filedocumented in this encounter Plan of Treatment Date Type Specialty Care Team Description 02/17/2020 Office Visit Thoracic Surgery Hossein Stewart MD 301 [place], [place] [phone] 02/22/2020 Office Visit Neurology Nick Denson MD 400 [place], [place] [address] 2020 Office Visit Pulmonary Disease Bud Haynes MD [address] [address] [phone] 03/14/2020 Appointment Radiology Renan Marcial MD 301 [place], [place] [address] 06/11/2020 Office Visit Cardiology Daya Love M D [address] [place] [address] [place] [address] [phone] Health Maintenance Due Date Last Done Comments [...] Date/Time Associated Diagnosis Comme nts EXTERNAL PROVIDER RECORDS Routine 02/02/2020 12:01 AM STEEL PLATE PRINTER HOME HEALTH - OTHER Routine 01/31/2020 12:01 AM STEEL PLATE PRINTER PHYSICIAN CERTIFICATION Routine 01/30/2020 12:01 AM STATEMENT STEEL PLATE PRINTER documented in this encounter Results Not on filedocumented in this encounter Additional Health Concerns Infection Onset Date Last Indicated Resolved Time Contact- MRSA 01/12/2020 01/12/2020 documented as of this encounter Insurance Payer Benefit Plan / Subscriber ID Effective Phone Address T [facility] Dates EMRE ANDREA [id number] 2015-Pres [address] Medic aid [place] [id number] MANAGED MEDICAID [place], [place] documented as of this encounter
--- OUTSIDE RECORDS SUMMARY | 2020-03-10 03:56 | XMS REPORT | Summary of Care ---
:1960 Author Organization [facility] - [facility] Address [address] [place] [address] Care Team Providers Name Role Phone Gatito Chauhan MD Primary Care Provider Zeke Márquez Insurance Hmo Reason for Visit Reason Comments Social Work Insurance denial for (SLT ) Encounter Details Date Type Department Care Team Description 02/14/2020 Patient Outreach [facility] Nikki Blount, Social W ork Pediatric and Adult SENIOR COMPENSATION CONSULTANT (Insurance denial Primary Care- [address] [place] [address] for (SLT) ) [place] [address] Drive, [address] [place] [address] Allergies No Known Allergiesdocumented as of this encounter (statuses as of 02/15/2020) Medications Medication Sig Dispensed Refills Start Date [...] enteral Coronary artery disease tube daily. involving [place] coronary artery of [place] heart without angina pectoris, Cerebrovascular accident (CVA), unspecified mechanism, Essential hypertension atorvastatin 40 mg Take 1 tablet 90 tablet 3 02/06/2020 Active tabletIndications: through enteral Coronary artery disease tube at involving [place] bedtime. coronary artery of [place] heart without angina pectoris, Cerebrovascular accident (CVA), unspecified mechanism, Essential hypertension famotidine 20 mg Take 1 tablet 90 tablet 3 02/06/2020 Active tabletIndications: by mouth 2 Gastroesophageal reflux (two) times disease, unspecified daily. whether esophagitis present lisinopriL 40 mg Take 1 tablet 90 tablet 3 02/06/2020 Active tabletIndications: by mouth daily. Coronary artery disease involving [place] coronary artery of [place] heart without angina pectoris, Essential hypertension Polyethylene Glycol 3350 Take 1 Packet 180 Packet 3 02/06/2020 Active 17 gram through enteral powderIndications: tube 2 (two) Constipation, times daily. unspecified constipation type risperiDONE 0.5 mg Take 1 tablet 180 tablet 3 02/06/2020 Active tabletIndications: through enteral Schizophrenia, tube 2 (two) unspecified type times daily. documented as of this encounter (statuses as of 02/15/2020) Active Problems Problem Noted Date History of [...] as of this encounter (statuses as of 02/15/2020) Resolved Problems Problem Noted Date Resolved Date Respiratory distress 12/29/2019 02/11/2020 Acute ischemic left MCA stroke 12/24/2019 0 Chest pain 07/22/2015 02/11/2020 documented as of this encounter (statuses as of 02/15/2020) Social History Tobacco Use Types Packs/Day Years [...] with No / Unsure 02/06/2020 10:40 AM INVOICE CODER someone who was confirmed or suspected to have 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 documented as of this encounter Last Filed Vital Signs Not on filedocumented in this encounter Progress Notes Nikki Blount LMSW - 02/14/2020 10:22 AM CSTSocial Work Note Entertainer Or Variety Artist (ROB) attempted to contact Supervisor Wall Mirror Department (Dani Barlow p: [phone]) regarding assigned CM contact information, additional EMS trips and Home Health services vs OP (SLT); leftmessage. SW will continue attempts to contact. Entertainer Or Variety Artist (ROB) contacted EMS provider (Shila Sousa with [facility] p: [phone] x [phone] Em: [email or web address]: [phone] ) to coordinate/schedule additional EMS transports for new appointments (02/17/20, 02/22/20, and 03/14/20). EMS advised new PCS form will be required 03/16/2020. No new needs identified at present. ROB provideddates, address, clinic contact information fr scheduled appoitnment; services complete. Nikki Blount LMSW, [facility] Entertainer Or Variety Artist- Rv Technician Management [facility]- Community Based Clinics [facility] ,and [place] Pager: [phone] Em: [email or web address] Nikki Rolon LMSW - 02/14/2020 10:22 AM CSTSocial Work Note Entertainer Or Variety Artist (ROB) received call from Supervisor Wall Mirror Department (Dani Barlow p: [phone]) regarding Home Health services vs OP (SLT); CM Pot Reliner. pending/reviewing. CM advised sending PCP Star Plus Waiver Program packet to complete/return (Provider). SW provided updates to medical team. Nikki Blount LMSW, CCM Entertainer Or Variety Artist- Rv Technician Management [facility] Pager: [phone] Em: [email or web address] ikki Blount LMSW - 02/14/2020 10:22 AM CSTSocial Work Note Entertainer Or Variety Artist (ROB) received consult Insurance denial for HH (SLT). SW spoke with a [place] Medicaid wrapper caser (Dani Benson p: [phone]) regarding patient needs; insurance barriers. CM reviewed patients records; advised will submit concerns to Ins CM Pot Reliner; requesting evaluation for Star Plus Waiver Program and expedited Provider services. CM explained will contact patients daughter to review HH- SLT appeal process. SW attempted to contact patients Daughter (Elyssa Scanlon p: [phone]) to provide Ins CM updates; left message. SW will continue attempts to contact. Nikki Blount LMSW, [facility] Entertainer Or Variety Artist- Rv Technician Management [facility] Pager: [phone] Em: [email or web address] ICE CODER documented in this encounter Plan of Treatment Date Type Specialty Care Team Description 02/17/2020 Office Visit Thoracic Surgery Hossein Stewart MD [address] [place], [place] [phone] 02/22/2020 Office Visit Neurology Nick Denson MD [address] [place], [place] [address] 2020 Office Visit Pulmonary Disease Bud Haynes MD 3310 [facility] y [address] [address] [phone] 03/14/2020 Appointment Radiology Renan Marcial MD [address] [place] [address] 06/11/2020 Office Visit Cardiology Daya Love M D 146 [facility] [address] [place] [address]75 15 [phone] Health Maintenance Due Date Last Done Comments [...] Problems Progress Quit using Tobacco Use No [place], tobacco Roberta (cigarettes, smokeless, etc) documented as of this encounter Results Not on filedocumented in this encounter Additional Health Concerns Infection Onset Date Last Indicated Resolved Time Contact- MRSA 01/12/2020 01/12/2020 documented as of this encounter Insurance Payer Benefit Plan / Subscriber ID Effective Phone Address T [facility] Dates EMRE ANDREA [id number] 2014-Pres [address] Medic aid [place]CARE [place]ARE [place] [id number] MANAGED MEDICAID [place] documented as of this encounter
--- OUTSIDE RECORDS SUMMARY | 2020-03-10 03:56 | XMS REPORT | Summary of Care ---
:1960 Author Organization [facility] - [facility] Address [address] [place] [address] Care Team Providers Name Role Phone Gatito Chauhan MD Primary Care Provider Zeke Márquez Insurance Hmo Reason for Visit Reason Comments Social Work Insurance denial for (SLT ) Encounter Details Date Type Department Care Team Description 02/14/2020 Patient Outreach [facility] Nikki Blount, Social W ork Pediatric and Adult PROCUREMENT INTERN (Insurance denial Primary Care- [address] [place] [address] for (SLT) ) [place] [address] Drive, [address] [place] [address] Allergies No Known Allergiesdocumented as [...] enteral Coronary artery disease tube daily. involving [place] coronary artery of [place] heart without angina pectoris, Cerebrovascular accident (CVA), unspecified mechanism, Essential hypertension atorvastatin 40 mg Take 1 tablet 90 tablet 3 02/06/2020 Active tabletIndications: through enteral Coronary artery disease tube at involving [place] bedtime. coronary artery of [place] heart without angina pectoris, Cerebrovascular accident (CVA), unspecified mechanism, Essential hypertension famotidine 20 mg Take 1 tablet 90 tablet 3 02/06/2020 Active tabletIndications: by mouth 2 Gastroesophageal reflux (two) times disease, unspecified daily. whether esophagitis present lisinopriL 40 mg Take 1 tablet 90 tablet 3 02/06/2020 Active tabletIndications: by mouth daily. Coronary artery disease involving [place] coronary artery of [place] heart without angina pectoris, Essential hypertension Polyethylene [...] of 02/16/2020) Active Problems Problem Noted Date History of [...] with No / Unsure 02/06/2020 10:40 AM ROENTGENOLOGIST someone who was confirmed or suspected to have 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 documented as of this encounter Last Filed Vital Signs Not on filedocumented in this encounter Progress Notes Nikki Blount LMSW - 02/14/2020 10:22 AM CSTSocial Work Note Audio Experience Expert (ROB) spoke with patients insurance instructor (Dani Barlow p: [phone]) by phone regarding EMS auth request for additional appointment added after initial request/auth received.CM advised to complete/submit [facility] prior auth request form and [facility] [place] Medicaid [facility] prior Auth Request (Form F 99113) for authorization completion to Patient's insurance provider ([facility] p: [phone] f: [phone]). ROB competed Ins and EMS forms; provided toPCP for completion/return. No new needs identified at present. ROB services complete. Nikki Blount LMSW, [facility] Audio Experience Expert- Auto Club Safety Program Coordinator Management [facility]- Community Based Clinics [facility] ,and [place] Pager: [phone] Em: [email or web address] Nikki Rolon LMSW - 02/14/2020 10:22 AM CSTSocial Work Note Audio Experience Expert (ROB)spoke with [employer] [place] Masseuse (Dani Barlow p: [phone]) regarding Additional units for EMS auth submitted (01/13/20; Auth# [id number] 30 [facility] p: [phone] f: [phone] Dates approved: 01/23/20-06/13/20 Services approved: [id number] 8 units (round trip)/[id number] (32 units) . CM confirmed she will be assigned cM for patient. CM will research EMS auth for additional units/appointments; will contact patients daughter to complete assessment for all needs (HH, DME, Provider, etc.); will contact with updates upon receipt. No new needs identified at present. SW will provide updates to medical team; services complete. Nikki Blount LMSW, [facility] Audio Experience Expert- Auto Club Safety Program Coordinator Management [facility] Pager: [phone] Em: [email or web address] Nikki Rolon LMSW - 02/14/2020 10:22 AM CSTSocial Work Note Audio Experience Expert (ROB) attempted to contact Administrative And Program Specialist (Dani Barlow p: [phone]) regarding assigned CM contact information, additional EMS trips and Home Health services vs OP (SLT); leftmessage. ROB will continue attempts to contact. Audio Experience Expert (ROB) contacted EMS provider (Shila Sousa with [facility] p: [phone] x [phone] Em: [email or web address]patch: [phone] ) to coordinate/schedule additional EMS transports for new appointments (02/17/20, 02/22/20, and 03/14/20). EMS advised new PCS form will be required 03/16/2020. No new needs identified at present. ROB provideddates, address, clinic contact information fr scheduled appoitnment; services complete. Nikki Blount LMSW, [facility] Audio Experience Expert- Auto Club Safety Program Coordinator Management [facility] Pager: [phone] Em: [email or web address] Nikki Rolon LMSW - 02/14/2020 10:22 AM CSTSocial Work Note Audio Experience Expert (ROB) received call from Administrative And Program Specialist (Dani Barlow p: [phone]) regarding Home Health services vs OP (SLT); CM Air Brake Operator. pending/reviewing. CM advised sending PCP Star Plus Waiver Program packet to complete/return (Provider). SW provided updates to medical team. Nikki Blount LMSW, [facility] Audio Experience Expert- Auto Club Safety Program Coordinator Management [facility] Pager: [phone] Em: [email or web address] Nikki Rolon LMSW - 02/14/2020 10:22 AM CSTSocial Work Note Audio Experience Expert (SW) received consult Insurance denial for HH (SLT). SW spoke with a [place] Medicaid pillowcase cutter (Dani Yideven p: [phone]) regarding patient needs; insurance barriers. CM reviewed patients records; advised will submit concerns to Ins CM Air Brake Operator; requesting evaluation for Star Plus Waiver Program and expedited Provider services. CM explained will contact patients daughter to review HH- SLT appeal process. SW attempted to contact patients Daughter (Elyssa Scanlon p: [phone]) to provide Ins CM updates; left message. SW will continue attempts to contact. Nikki Blount LMSW, [facility] Audio Experience Expert- Auto Club Safety Program Coordinator Management [facility] Pager: [phone] Em: [email or web address] TGENOLOGIST documented in this encounter Plan of Treatment Date Type Specialty Care Team Description 02/17/2020 Office Visit Thoracic Surgery Hossein Stewart MD [address] [place] [phone] 02/22/2020 Office Visit Neurology Nick Denson MD 400 [facility] [place] [address] 2020 Office Visit Pulmonary Disease Bud Haynes MD 3030 [facility] y [address] [place] [address] [phone] 03/14/2020 Appointment Radiology Renan Marcial MD [address] [place] [address] 06/11/2020 Office Visit Cardiology Daya Love M D [address] [place] [address] [place] [address] [phone] Health Maintenance Due Date Last Done Comments [...] Address T e Group Dates EMRE ANDREA [id number] 2014-Pres [address] Medic aid [place] [id number] MANAGED MEDICAID [place], [place] documented as of this encounter
--- OUTSIDE RECORDS SUMMARY | 2020-03-10 03:56 | XMS REPORT | Summary of Care ---
:1960 Author Organization [facility] - [facility] Address [address] [place] [address] Care Team Providers Name Role Phone Gatito Chauhan MD Primary Care Provider Zeke Márquez Insurance Hmo Reason for Visit Reason Comments Social Work Insurance denial for (SLT ) Encounter Details Date Type Department Care Team Description 02/14/2020 Patient Outreach [facility] Nikki Blount, Social W ork Pediatric and Adult CONTROLS TECHNICIAN (Insurance denial Primary Care- [address] [place] [address] for (SLT) ) [place] [address] Drive, [address] [place] [address] Allergies No Known Allergiesdocumented as [...] enteral Coronary artery disease tube daily. involving [place] coronary artery of [place] heart without angina pectoris, Cerebrovascular accident (CVA), unspecified mechanism, Essential hypertension atorvastatin 40 mg Take 1 tablet 90 tablet 3 02/06/2020 Active tabletIndications: through enteral Coronary artery disease tube at involving [place] bedtime. coronary artery of [place] heart without angina pectoris, Cerebrovascular accident (CVA), unspecified mechanism, Essential hypertension famotidine 20 mg Take 1 tablet 90 tablet 3 02/06/2020 Active tabletIndications: by mouth 2 Gastroesophageal reflux (two) times disease, unspecified daily. whether esophagitis present lisinopriL 40 mg Take 1 tablet 90 tablet 3 02/06/2020 Active tabletIndications: by mouth daily. Coronary artery disease involving [place] coronary artery of [place] heart without angina pectoris, Essential hypertension Polyethylene [...] with No / Unsure 02/06/2020 10:40 AM IRRIGATION FLUME LAYER someone who was confirmed or suspected to have 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 documented as of this encounter Last Filed Vital Signs Not on filedocumented in this encounter Progress Notes Nikki Blount LMSW - 02/14/2020 10:22 AM CSTSocial Work Note Carpenter Assistant Installer (ROB)spoke with [employer] Associate Professor Of Law (Dani Barlow p: [phone]) regarding Additional units for EMS auth submitted (01/13/20; Auth# [id number] 30 [facility] p: [phone] f: [phone] Dates approved: 01/23/20-06/13/20 Services approved: [id number] 8 [...] medical team; services complete. Nikki Blount LMSW, [facility] Carpenter Assistant Installer- Financial Reporting Consultant Management [facility]- Community Based Clinics [facility] ,and [place] Pager: [phone] Em: [email or web address] Nikki Rolon LMSW - 02/14/2020 10:22 AM CSTSocial Work Note Carpenter Assistant Installer (ROB) attempted to contact Beveling And Edging Machine Operator (Dani Barlow p: [phone]) regarding assigned CM contact information, additional EMS trips and Home Health services vs OP (SLT); leftmessage. SW will continue attempts to contact. Carpenter Assistant Installer (ROB) contacted EMS provider (Shila Sousa with [facility] p: [phone] x [phone] Em: [email or web address] Dispatch: [phone] ) to coordinate/schedule additional EMS transports for new appointments (02/17/20, 02/22/20, and 03/14/20). EMS advised new PCS form will be required 03/16/2020. No new needs identified at present. ROB provideddates, address, clinic contact information fr scheduled appoitnment; services complete. Nikki Blount LMSW, [facility] Carpenter Assistant Installer- Financial Reporting Consultant Management [facility]- [facility] Pager: [phone] Em: [email or web address] Nikki Rolon LMSW - 02/14/2020 10:22 AM CSTSocial Work Note Carpenter Assistant Installer (ROB) received call from Beveling And Edging Machine Operator (Dani Barlow p: [phone]) regarding Home Health services vs OP (SLT); CM Semaphore Operator. pending/reviewing. CM advised sending PCP Star Plus Waiver Program packet to complete/return (Provider). ROB provided updates to medical team. Nikki Blount LMSW, [facility] Carpenter Assistant Installer- Financial Reporting Consultant Management [facility] Pager: [phone] Em: [email or web address] Nikki Rolon LMSW - 02/14/2020 10:22 AM CSTSocial Work Note Carpenter Assistant Installer (ROB) received consult Insurance denial for HH (SLT). ROB spoke with a [place] Medicaid outpatient case manager (Dani Benson p: [phone]) regarding patient needs; insurance barriers. CM reviewed patients records; advised will submit concerns to Ins CM Semaphore Operator; requesting evaluation for Star Plus Waiver Program and expedited Provider services. CM explained will contact patients daughter to review HH- SLT appeal process. SW attempted to contact patients Daughter (Elyssa Scanlon p: [phone]) to provide Ins CM updates; left message. SW will continue attempts to contact. Nikki Blount LMSW, [facility] Carpenter Assistant Installer- Financial Reporting Consultant Management [facility]- Community Based Clinics [facility] ,and [place] Pager: [phone] Em: [email or web address] GATION FLUME LAYER documented in this encounter Plan of Treatment Date Type Specialty Care Team Description 02/17/2020 Office Visit Thoracic Surgery Hossein Stewart MD [address] [place] [phone] 02/22/2020 Office Visit Neurology Nick Denson MD [address] [place] [address] 2020 Office Visit Pulmonary Disease Bud Haynes MD [address] [address] [phone] 03/14/2020 Appointment Radiology Renan Marcial MD 301 [place], [place] [address] 06/11/2020 Office Visit Cardiology Daya oLve M D [address] [place] [address] [address] [place], [place] [address] [phone] Health Maintenance Due Date Last Done Comments [...] / Subscriber ID Effective Phone Address T [facility] Group Dates EMRE ANDREA [id number] 2014-Pres [address] Medic aid [place]CARE [place] [id number] MANAGED MEDICAID [place], [place] documented as of this encounter
--- OUTSIDE RECORDS SUMMARY | 2020-03-10 03:57 | XMS REPORT | Summary of Care ---
:1960 Author Organization [facility] Address [address] [place] [address] Care Team Providers Name Role Phone Gatito Chauhan MD Primary Care Provider Zeke Márquez Insurance Hmo Reason for Visit Reason Comments Social Work Insurance denial for (SLT ) Encounter Details Date Type Department Care Team Description 02/14/2020 Patient Outreach [facility] Nikki Blount, Social W ork Pediatric and Adult FORM BUILDER HELPER (Insurance denial Primary Care- [address] [place] [address] for (SLT) ) [place] [address] [address], [address] [place] [address] Allergies No Known Allergiesdocumented as [...] enteral Coronary artery disease tube daily. involving jamul coronary artery of jamul heart without angina pectoris, Cerebrovascular accident (CVA), unspecified mechanism, Essential hypertension atorvastatin 40 mg Take 1 tablet 90 tablet 3 02/06/2020 Active tabletIndications: through enteral Coronary artery disease tube at involving jamul bedtime. coronary artery of jamul heart without angina pectoris, Cerebrovascular accident (CVA), unspecified mechanism, Essential hypertension famotidine 20 mg Take 1 tablet 90 tablet 3 02/06/2020 Active tabletIndications: by mouth 2 Gastroesophageal reflux (two) times disease, unspecified daily. whether esophagitis present lisinopriL 40 mg Take 1 tablet 90 tablet 3 02/06/2020 Active tabletIndications: by mouth daily. Coronary artery disease involving jamul coronary artery of jamul heart without angina pectoris, Essential hypertension Polyethylene [...] with No / Unsure 02/06/2020 10:[address] JUSTICE someone who was confirmed or suspected to have 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 documented as of this encounter Last Filed Vital Signs Not on filedocumented in this encounter Progress Notes Nikki Blount LMSW - 02/14/2020 10:22 AM CSTSocial Work Note Pressure Control Supervisor (ROB) spoke with patients insurance counsel (Dani Barlow p: [phone]) by phone regarding EMS auth request for additional units for appointments added AFTER initial request/auth received. CM advised will consult Pool Installer and Director regarding patient needs; provide updates upon receipt. ROB attempted to contact [facility] Department (Diana Marin p: [phone] x [phone] f" [phone]) regarding additional AUTH units for appointments added AFTER initial auth provided; left message. ROB spoke with [facility] Dept (Mandy p: [phone]) regarding additional AUTH units for appointments added AFTER initial auth provided. confirmed receipt of documents/forms; marked expedited; have up to 72 hours to process ~ Thursday02/19/20. sent email to RN & Pool Installer for Urgent assistance. Uncertain if auth will be received by tomorrow/may have to reschedule appointment. ROB provided updates receive to EMS provider ([facility] P: [phone]). ROB continue following up and call/email with updates. Nikki Blount LMSW, [facility] Pressure Control Supervisor- Sr. Manager Management [facility]- [facility] [place], Azar Rizzo ,and [place] Pager: [phone] Em: [email or web address] Nikki Rolon LMSW - 02/14/2020 10:22 AM CSTSocial Work Note Pressure Control Supervisor (ROB) spoke with patients insurance counsel (Dani Barlow p: [phone]) by phone regarding EMS auth request for additional appointment added after initial request/auth received.CM advised to complete/submit [facility] prior auth request form and [facility] Medicaid Nonemergency Ambulance prior Auth Request (Form F 28981) for authorization completion to Patient's insurance provider ([facility] p: [phone] f: [phone]). SW competed Ins and EMS forms; provided toPCP for completion/return. No new needs identified at present. SW services complete. Nikki Blount LMSW, JEN[facility] Pressure Control Supervisor- Sr. Manager Management [facility] Pager: [phone] Em: [email or web address] Nikki Rolon LMSW - 02/14/2020 10:22 AM CSTSocial Work Note Pressure Control Supervisor (ROB)spoke with [employer] (Dani Barlow p: [phone]) regarding Additional units for EMS auth submitted (01/13/20; Auth# [id number] 30 [facility] p: [phone] f: [phone] Dates approved: 01/23/20-06/13/20 Services approved: [id number] 8 units (round trip)/A0425 (32 units) . CM confirmed she will be assigned cM for patient. CM will research EMS auth for additional units/appointments; will contact patients daughter to complete assessment for all needs (HH, DME, Provider, etc.); will contact with updates upon receipt. No new needs identified at present. ROB will provide updates to medical team; services complete. Nikki Blount LMSW, J[facility] Pressure Control Supervisor- Sr. Manager Management [facility] Pager: [phone] Em: [email or web address] Nikki Rolon LMSW - 02/14/2020 10:22 AM CSTSocial Work Note Pressure Control Supervisor (ROB) attempted to contact Cider Press Operator (Dani Barlow p: [phone]) regarding assigned CM contact information, additional EMS trips and Home Health services vs OP (SLT); leftmessage. SW will continue attempts to contact. Pressure Control Supervisor (ROB) contacted EMS provider ([facility] p: [phone] x [phone] Em: [email or web address]: [phone] ) to coordinate/schedule additional EMS transports for new appointments (02/17/20, 02/22/20, and 03/14/20). EMS advised new PCS form will be required 03/16/2020. No new needs identified at present. ROB provideddates, address, clinic contact information fr scheduled appoitnment; services complete. Nikki Blount LMSW, [facility] Pressure Control Supervisor- Sr. Manager Management [facility] Pager: [phone] Em: [email or web address] Nikki Rolon LMSW - 02/14/2020 10:22 AM CSTSocial Work Note Pressure Control Supervisor (ROB) received call from Cider Press Operator (Dani Barlow p: [phone]) regarding Home Health services vs OP (SLT); CM Pool Installer. pending/reviewing. CM advised sending PCP Star Plus Waiver Program packet to complete/return (Provider). SW provided updates to medical team. Nikki Blount LMSW, [facility] Pressure Control Supervisor- Sr. Manager Management [facility] Pager: [phone] Em: [email or web address] Nikki Rolon LMSW - 02/14/2020 10:22 AM CSTSocial Work Note Pressure Control Supervisor (SW) received consult Insurance denial for HH (SLT). SW spoke with a [place] Medicaid case maker (Dani Benson p: [phone]) regarding patient needs; insurance barriers. CM reviewed patients records; advised will submit concerns to Ins CM Pool Installer; requesting evaluation for Star Plus Waiver Program and expedited Provider services. CM explained will contact patients daughter to review HH- SLT appeal process. SW attempted to contact patients Daughter (Elyssa Scanlon p: [phone]) to provide Ins CM updates; left message. SW will continue attempts to contact. Nikki Blount LMSW, [facility] Pressure Control Supervisor- Sr. Manager Management [facility]- Community Based Clinics [facility] ,and [place] Pager: [phone] Em: [email or web address] [address] JUSTICE documented in this encounter Plan of Treatment Date Type Specialty Care Team Description 02/17/2020 Office Visit Thoracic Surgery Hossein Stewart MD [address] [place] [address] [phone] 02/22/2020 Office Visit Neurology Nick Denson MD [address] [place] [address] 555 2020 Office Visit Pulmonary Disease Bud Haynes MD [address] [address] [phone] 03/14/2020 Appointment Radiology Renan Marcial MD [address] [place] [address] 77 555 06/11/2020 Office Visit Cardiology Daya Love M D [address] [place] [address] [address] [place], [place] [address] Health Maintenance Due Date [...] Problems Progress Quit using Tobacco Use No [place], tobacco Roberta (cigarettes, smokeless, etc) documented as of this encounter Results Not on filedocumented in this encounter Additional Health Concerns Infection Onset Date Last Indicated Resolved Time Contact- MRSA 01/12/2020 01/12/2020 documented as of this encounter Insurance Payer Benefit Plan / Subscriber ID Effective Phone Address T [facility] Group Dates EMRE SOTO [id number] 2014-Pres [address] Medic aid [place]CARE [place] [id number] MANAGED MEDICAID [place], MEDICAID [place] documented as of this encounter
--- OUTSIDE RECORDS SUMMARY | 2020-03-10 03:57 | XMS REPORT | Summary of Care ---
:1960 Author Organization [facility] - [facility] Address [address] [place] [address] Care Team Providers Name Role Phone Gatito Chauhan MD Primary Care Provider Zeke Márquez Insurance Hmo Reason for Visit Reason Comments Social Work Insurance denial for (SLT ) Encounter Details Date Type Department Care Team Description 02/14/2020 Patient Outreach [facility] Nikki Blount, Social W ork Pediatric and Adult SUPERVISOR [employer] (Insurance denial Primary Care- [address] [place] [address] for (SLT) ) [place] [address] Drive, [address] [place] [address] Allergies No Known Allergiesdocumented as of this encounter (statuses as of 02/17/2020) Medications Medication Sig Dispensed Refills Start Date [...] enteral Coronary artery disease tube daily. involving [place] coronary artery of [place] heart without angina pectoris, Cerebrovascular accident (CVA), unspecified mechanism, Essential hypertension atorvastatin 40 mg Take 1 tablet 90 tablet 3 02/06/2020 Active tabletIndications: through enteral Coronary artery disease tube at involving [place] bedtime. coronary artery of [place] heart without angina pectoris, Cerebrovascular accident (CVA), unspecified mechanism, Essential hypertension famotidine 20 mg Take 1 tablet 90 tablet 3 02/06/2020 Active tabletIndications: by mouth 2 Gastroesophageal reflux (two) times disease, unspecified daily. whether esophagitis present lisinopriL 40 mg Take 1 tablet 90 tablet 3 02/06/2020 Active tabletIndications: by mouth daily. Coronary artery disease involving [place] coronary artery of [place] heart without angina pectoris, Essential hypertension Polyethylene Glycol 3350 Take 1 Packet 180 Packet 3 02/06/2020 Active 17 gram through enteral powderIndications: tube 2 (two) Constipation, times daily. unspecified constipation type risperiDONE 0.5 mg Take 1 tablet 180 tablet 3 02/06/2020 Active tabletIndications: through enteral Schizophrenia, tube 2 (two) unspecified type times daily. 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 documented as of this encounter Last Filed Vital Signs Not on filedocumented in this encounter Progress Notes Nikki Blount LMSW - 02/14/2020 10:22 AM CSTSocial Work Note Erp Consultant (ROB) attempted to contact Patients Motel Front Desk Attendant (Dani Barlow p: [phone] with [facility]) by phone regarding EMS auth request for additional units; left message. SW communicated with EMS (Madison Potter with [facility] p: [phone] Ext [phone]/ [phone]/f: [phone]) regarding EMS auth request for additional units. EMS denies receipt of auth; unable to scheduled transport until auth received. SW spoke with patients daughter (Elyssa Scanlon p: [phone]) by phone regarding additional AUTH unitsfor appointments added AFTER initial auth provided. Daughter reports appointment rescheduled (02/24/20 at 1:45pm). SW reviewed Auth process; will provide updates upon receipt. Daughter verbalized understanding. SW reviewed reliability manager contact information; encouraging daughter to contact for Star Waiver program assessment, HH (OT), and DME needs. Daughter verbalized understanding; will contact today. Daughter requests information for DME (formula). SW encouraged Daughter to contact clinic for needs; DME assistance provided by clinic staff. Daughter verbalized understanding. No new needs identifiedat present. SW will provided updates to EMS, Daughter upon receipt. Nikki Blount LMSW, CCM Erp Consultant- Security Trainer Management [facility]- Community Based Clinics [place], Matthias Beltrami ,and [place] Pager: [phone] Em: [email or web address] Nikki Rolon LMSW - 02/14/2020 10:22 AM CSTSocial Work Note Erp Consultant (ROB) spoke with patients insurance underwriting assistant (Dani Barlow p: [phone]) by phone regarding EMS auth request for additional units for appointments added AFTER initial request/auth received. CM advised will consult Control Director and Director regarding patient needs; provide updates upon receipt. SW attempted to contact [facility] Department (Diana Marin p: [phone] x [phone] f" [phone]) regarding additional AUTH units for appointments added AFTER initial auth provided; left message. ROB spoke with [facility] Dept (Mandy p: [phone]) regarding additional AUTH units for appointments added AFTER initial auth provided. confirmed receipt of documents/forms; marked expedited; have up to 72 hours to process ~ Thursday02/19/20. sent email to RN & Control Director for Urgent assistance. Uncertain if auth will be received by tomorrow/may have to reschedule appointment. ROB provided updates receive to EMS provider ([facility] P: [phone]). ROB continue following up and call/email with updates. Nikki Blount LMSW, [facility] Erp Consultant- Security Trainer Management [facility]- [facility] Clinics [place], [place], [place] ,and [place] Pager: [phone] Em: [email or web address] Nikki Rolon LMSW - 02/14/2020 10:22 AM CSTSocial Work Note Erp Consultant (ROB) spoke with patients insurance underwriting assistant (Dani Cain p: [phone]) by phone regarding EMS auth request for additional appointment added after initial request/auth received.CM advised to complete/submit [facility] prior auth request form and [facility] [place] Medicaid Nonemergency Ambulance prior Auth Request (Form F 64334) for authorization completion to Patient's insurance provider ([place] [employer] p: [phone] f: [phone]). ROB competed Ins and EMS forms; provided toPCP for completion/return. No new needs identified at present. SW services complete. Nikki Blount LMSW, [facility] Erp Consultant- Security Trainer Management [facility] Pager: [phone] Em: [email or web address] Nikki Rolon LMSW - 02/14/2020 10:22 AM CSTSocial Work Note Erp Consultant (ROB)spoke with [employer] Green[employer] Manager (Dani Barlow p: [phone]) regarding Additional units for EMS auth submitted (01/13/20; Auth# [id number] 30 [facility] p: [phone] f: [phone] Dates approved: 01/23/20-06/13/20 Services approved: [id number] 8 [...] medical team; services complete. Nikki Blount LMSW, [facility] Erp Consultant- Security Trainer Management [facility] Pager: [phone] Em: [email or web address] Nikki Rolon LMSW - 02/14/2020 10:22 AM CSTSocial Work Note Erp Consultant (ROB) attempted to contact Motel Front Desk Attendant (Dani Barlow p: [phone]) regarding assigned CM contact information, additional EMS trips and Home Health services vs OP (SLT); leftmessage. SW will continue attempts to contact. Erp Consultant (ROB) contacted EMS provider ([facility] p: [phone] x [phone] Em: [email or web address]: [phone] ) to coordinate/schedule additional EMS transports for new appointments (02/17/20, 02/22/20, and 03/14/20). EMS advised new PCS form will be required 03/16/2020. No new needs identified at present. ROB provideddates, address, clinic contact information fr scheduled appoitnment; services complete. Nikki Blount LMSW, CCM Erp Consultant- Security Trainer Management [facility] Pager: [phone] Em: [email or web address] Nikki Rolon LMSW - 02/14/2020 10:22 AM CSTSocial Work Note Erp Consultant (ROB) received call from Motel Front Desk Attendant (Dani Barlow p: [phone]) regarding Home Health services vs OP (SLT); CM Control Director. pending/reviewing. CM advised sending PCP Star Plus Waiver Program packet to complete/return (Provider). ROB provided updates to medical team. Nikki Blount LMSW, [facility] Erp Consultant- Security Trainer Management [facility] Pager: [phone] Em: [email or web address] Nikki Rolon LMSW - 02/14/2020 10:22 AM CSTSocial Work Note Erp Consultant (ROB) received consult Insurance denial for HH (SLT). ROB spoke with a [place] Medicaid case assembler (Dani Benson p: [phone]) regarding patient needs; insurance barriers. CM reviewed patients records; advised will submit concerns to Ins CM Control Director; requesting evaluation for Star Plus Waiver Program and expedited Provider services. CM explained will contact patients daughter to review HH- SLT appeal process. SW attempted to contact patients Daughter (Elyssa Scanlon p: [phone]) to provide Ins CM updates; left message. SW will continue attempts to contact. Nikki Blount LMSW, [facility] Erp Consultant- Security Trainer Management [facility]- Community Based Clinics [place], [facility] ,and [place] Pager: [phone] Em: [email or web address] RUCTOR [email or web address] documented in this encounter Plan of Treatment Date Type Specialty Care Team Description 02/22/2020 Office Visit Neurology Nick Denson MD [address] [phone] 02/24/2020 Office Visit Thoracic Surgery Hossein Stewart MD [address] [address] [phone] Office Visit Pulmonary Disease Bud Haynes MD [address] [address] [phone] 03/14/2020 Appointment Radiology Renan Marcial MD [address] [place], [place] [address] 06/11/2020 Office Visit Cardiology Daya Love M D [address] [place] [address] [place] [address] [phone] Health Maintenance Due Date Last Done Comments [...] Phone Address T e Group Dates EMRE SOTO [id number] 2014-Pres [address] Medic aid HE[place]CARE [place] [id number] MANAGED MEDICAID [place], [place] documented as of this encounter
--- OUTSIDE RECORDS SUMMARY | 2020-03-10 03:57 | XMS REPORT | Summary of Care ---
:1960 Author Organization [facility] - [facility] Address [address] [place] [address] Care Team Providers Name Role Phone Gatito Chauhan MD Primary Care Provider Zeke Márquez Insurance Hmo Reason for Visit Reason Comments Orders Encounter Details Date Type Department Care Team Description 02/13/2020 Telephone [facility] Pediatric and Janiya Chauhan Orders Adult Primary Care- MD Askew [address] [place] [address] [address] [facility] [address] [place] [address] [place] [address] [phone] Allergies No Known Allergiesdocumented as of this [...] enteral Coronary artery disease tube daily. involving paiute-shoshone coronary artery of paiute-shoshone heart without angina pectoris, Cerebrovascular accident (CVA), unspecified mechanism, Essential hypertension atorvastatin 40 mg Take 1 tablet 90 tablet 3 02/06/2020 Active tabletIndications: through enteral Coronary artery disease tube at involving paiute-shoshone bedtime. coronary artery of pai[place]shoshone heart without angina pectoris, Cerebrovascular accident (CVA), unspecified mechanism, Essential hypertension famotidine 20 mg Take 1 tablet 90 tablet 3 02/06/2020 Active tabletIndications: by mouth 2 Gastroesophageal reflux (two) times disease, unspecified daily. whether esophagitis present lisinopriL 40 mg Take 1 tablet 90 tablet 3 02/06/2020 Active tabletIndications: by mouth daily. Coronary artery disease involving paiute-shoshone coronary artery of paiute-shoshone heart without angina pectoris, Essential hypertension Polyethylene [...] with No / Unsure 02/06/2020 10:40 AM DIRECTOR OF CONVENTION SERVICES someone who was confirmed or suspected to have 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 documented as of this encounter Last Filed Vital Signs Not on filedocumented in this encounter Miscellaneous Notes Telephone Encounter - Magalie Orlando MA - 02/15/2020 8:40 AM CSTCalled and spoke with DOP. She states she is doing good pt is eating and is taking her water intake and antibiotics and all medications through her PEG tube. DOP was advised I would update how she is doing. DOP was advised to call the office back if she had any questions or concerns. She verbalized understanding. MAGALIE ORLANDO MA 02/15/2020 8:43 AM CTOR OF CONVENTION SERVICES Telephone Encounter - Nikki Blount LMSW - 02/14/2020 12:06 PM CSTContacted Ins CM Dept; sent concerns regarding HH vs OP (SLT) to CM Deputy Director Of Nursing. Also sending PCP Star Plus Waiver Program packet to complete/return (Provider). CTOR OF CONVENTION SERVICES Telephone Encounter - Bev Chauhan MD - 02/14/2020 9:01 AM CSTShe requires EMS to get her back and forth to appointments, this is more expensive for insurance, will consult director social. Also, we have been trying to reach her daughter to see how the patient is doing. She was refusing for the PEG tube to be used, was supposed to be on antibiotics. CTOR OF CONVENTION SERVICES Telephone Encounter - Magalie Orlando MA - 02/13/2020 3:39 PM CSTPlease review. MAGALIE ORLANDO MA 02/13/2020 3:39 PM CTOR OF CONVENTION SERVICES Telephone Encounter - Sindi Carias - 02/13/2020 3:04 PM CSTSherlie with [facility] Home Health is stating patients insurance does not cover speech therapy at home. Please advise. CTOR OF CONVENTION SERVICES documented in this encounter Plan of Treatment Date Type Specialty Care Team Description 02/17/2020 Office Visit Thoracic Surgery Hossein Stewart MD [address] [address] [phone] 02/22/2020 Office Visit Neurology Nick Denson MD [address] [address] 555 2020 Office Visit Pulmonary Disease Bud Haynes MD [address] [address] [phone] 03/14/2020 Appointment Radiology Renan Marcial MD 301 [place], [place] [address] 06/11/2020 Office Visit Cardiology Daya Love M D 146 [facility] [address] [place] [phone] Health Maintenance Due Date Last Done Comments [...] Problems Progress Quit using Tobacco Use No [place], tobacco Roberta (cigarettes, smokeless, etc) documented as of this encounter Results Not on filedocumented in this encounter Visit Diagnoses Diagnosis History of stroke - Primary Transient ischemic attack (TIA), and cer ebral infarction without residual deficits Aphasic disturbance Aphasia Requires daily assistance for activities of daily living (ADL) and comfort needs Uses feeding tube documented in this encounter Additional Health Concerns Infection Onset Date Last Indicated Resolved Time Contact- MRSA 01/12/2020 01/12/2020 documented as of this encounter Insurance Payer Benefit Plan / Subscriber ID Effective Phone Address [facility] Group Dates EMRE ANDREA [id number] 2015-Pres [address] Medic aid HEALTHCARE [place]ARE [place] [id number] MANAGED MEDICAID [place], [place]ICAID [place] documented as of this encounter
--- OUTSIDE RECORDS SUMMARY | 2020-03-10 03:58 | XMS REPORT | Summary of Care ---
:1960 Author Organization [facility] - [facility] Address [address] [place] [address] Care Team Providers Name Role Phone Gatito Chauhan MD Primary Care Provider Zeke Márquez Insurance Hmo Reason for Visit Reason Comments Social Work Insurance denial for (SLT ) Encounter Details Date Type Department Care Team Description 02/14/2020 Patient Outreach [facility] Nikki Blount, Social W ork Pediatric and Adult REGULATORY COMPLIANCE ENGINEER (Insurance denial Primary Care- [address] [place] [address] for (SLT) ) [place] [address] Drive, [address] [place] [address] Allergies No Known Allergiesdocumented as [...] enteral Coronary artery disease tube daily. involving nulato coronary artery of [place]ul[place] heart without angina pectoris, Cerebrovascular accident (CVA), unspecified mechanism, Essential hypertension atorvastatin 40 mg Take 1 tablet 90 tablet 3 02/06/2020 Active tabletIndications: through enteral Coronary artery disease tube at involving nul[place] bedtime. coronary artery of nulato heart without angina pectoris, Cerebrovascular accident (CVA), unspecified mechanism, Essential hypertension famotidine 20 mg Take 1 tablet 90 tablet 3 02/06/2020 Active tabletIndications: by mouth 2 Gastroesophageal reflux (two) times disease, unspecified daily. whether esophagitis present lisinopriL 40 mg Take 1 tablet 90 tablet 3 02/06/2020 Active tabletIndications: by mouth daily. Coronary artery disease involving nulato coronary artery of nulato heart without angina pectoris, Essential hypertension Polyethylene [...] with No / Unsure 02/06/2020 10:40 AM SOCIOLOGY TEACHER someone who was confirmed or suspected to have 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 documented as of this encounter Last Filed Vital Signs Not on filedocumented in this encounter Progress Notes Nikki Blount LMSW - 02/14/2020 10:22 AM CSTSocial Work Note Operations Processor (ROB) spoke with In Network EMS provider (Lizzie with [facility] p: [phone] F: [phone]) to arrange transport using auth number provided ([id number]). EMS requests patient demographics and appointment information for review. ROB sent requested information with EMS Auth. Nikki Blount LMSW, [facility] Operations Processor- Baling Machine Tender Management [facility]- [facility] [place] Pager: [phone] Em: [email or web address] Appointments: Funmilayo Mcmillan Date: 02/22/2020 Time: 2:30 PM Provider: Nick Denson MD Department: [facility] NEUROLOGY Clinic Clinic Address [address] [place] [address], [address] [place] [address] Funmilayo Mcmillan Date: 02/24/2020 Time: 1:45 PM Visit Type: NEW VISIT (FIRST TIME) [53] Copay: $0.00 Provider: Hossein Stewart MD Department: THORACIC SURGERY-[facility] Clinic Clinic Address [facility] [address] [facility] [place] [address] Funmilayo Mcmillan Date: 2020 Time: 11:00 AM Provider: Timmy Haynes MD Department: [facility] COVID RECOVERY Clinic Clinic Address [address] [facility], 3rd [place] [address] Funmilayo Mcmillan Date: 03/14/2020 Time: 10:00 AM Provider: SHITAL GASTRO TUBE CHANGE (WITH FLUORO) Clinic Clinic Address: [address] [place] [address] [place] [address] Funmilayo Mcmillan Date: 06/11/2020 Time: 2:20PM Provider: Mecca Love MD [facility] Clinic Clinic Address: [address] [place] [address], [address] [place] [address] Nikki Rolon LMSW - 02/14/2020 10:22 AM CSTSocial Work Note Operations Processor (SW) communicated with Stripping Shovel Oiler (Dani Barlow p:[phone]) regarding HH and EMS. CM advised auth received: Auth # [id number] A Dates: 02/17/20-06/11/20 CM provided In network providers ([facility] p: [phone] and [facility] ([place] p: [phone]); advising [facility] EMS in out of network. CM advised HH approved for OT/SN; researching SLT. SW spoke with HH provider (Osmar with [facility] p: [phone]) regarding patients services. HH confirmed patient is receiving SN, OT, SLT (*admit today/auth received). PT discharged (02/07/20-met goals). ROB contacted [facility] EMS providers to attempt and arrange transport using auth number provided ([id number] 30 A): [facility] p: [phone] -advisedwill need to consult Photo Offset Printer;will call back. [facility] ([place] p: [phone]) ran patients benefits; advised "Pt only has shelter carebenefits/prior auth required through [facility]". ROB communicated information received to [facility]; advising forms submitted ([place] and [facility]) to [place] dept yesterday (02/17/20); requesting assistance. Nikki Blount LMSW, [facility] Operations Processor- Baling Machine Tender Management [facility]- [facility] Pager: [phone] Em: [email or web address] Nikki Rolon LMSW - 02/14/2020 10:22 AM CSTSocial Work Note Operations Processor (ROB) attempted to contact Patients Stripping Shovel Oiler (Dani Barlow p: [phone] with [employer]) by phone regarding EMS auth request for additional units; left message. SW communicated with EMS (Madison Potter with [facility] p: [phone] Ext [phone]/ [phone]/f: [phone]) regarding EMS auth request for additional units. EMS denies receipt of auth; unable to scheduled transport until auth received. SW spoke with patients daughter (Elyssa Scanlon p: [phone]) by phone regarding additional AUTH unitsfor appointments added AFTER initial auth provided. Daughter reports appointment rescheduled (02/24/20 at 1:45pm). SW reviewed Auth process; will provide updates upon receipt. Daughter verbalized understanding. SW reviewed insurance agency sales manager contact information; encouraging daughter to contact for Star Waiver program assessment, HH (OT), and DME needs. Daughter verbalized understanding; will contact today. Daughter requests information for DME (formula). SW encouraged Daughter to contact clinic for needs; DME assistance provided by clinic staff. Daughter verbalized understanding. No new needs identifiedat present. SW will provided updates to EMS, Daughter upon receipt. Nikki Blount LMSW, [facility] Operations Processor- Baling Machine Tender Management [facility]- [facility] Pager: [phone] Em: [email or web address] Nikki Rolon LMSW - 02/14/2020 10:22 AM CSTSocial Work Note Operations Processor (ROB) spoke with patients group insurance special agent (Dani Barlow p: [phone]) by phone regarding EMS auth request for additional units for appointments added AFTER initial request/auth received. CM advised will consult Photo Offset Printer and Director regarding patient needs; provide updates upon receipt. SW attempted to contact [facility] Department (Diana Marin p: [phone] x [phone] f" [phone]) regarding additional AUTH units for appointments added AFTER initial auth provided; left message. ROB spoke with [facility] Dept (Mandy p: [phone]) regarding additional AUTH units for appointments added AFTER initial auth provided. confirmed receipt of documents/forms; marked expedited; have up to 72 hours to process ~ Thursday02/19/20. sent email to RN & Photo Offset Printer for Urgent assistance. Uncertain if auth will be received by tomorrow/may have to reschedule appointment. ROB provided updates receive to EMS provider ([facility] P: [phone]). ROB continue following up and call/email with updates. Nikki Blount LMSW, [facility] Operations Processor- Baling Machine Tender Management [facility] Pager: [phone] Em: [email or web address] Nikki Rolon LMSW - 02/14/2020 10:22 AM CSTSocial Work Note Operations Processor (ROB) spoke with patients group insurance special agent (Dani Gavinmiguel p: [phone]) by phone regarding EMS auth request for additional appointment added after initial request/auth received.CM advised to complete/submit [place] [facility] prior auth request form and [facility] [place] Medicaid [facility] prior Auth Request (Form F 41518) for authorization completion to Patient's insurance provider ([place] [employer] p: [phone] f: [phone]). SW competed Ins and EMS forms; provided toPCP for completion/return. No new needs identified at present. SW services complete. Nikki Blount LMSW, [facility] Operations Processor- Baling Machine Tender Management [facility] [place] Pager: [phone] Em: [email or web address] Nikki Rolon LMSW - 02/14/2020 10:22 AM CSTSocial Work Note Operations Processor (ROB)spoke with [place] Director Speech Language (Dani Barlow p: [phone]) regarding Additional units for EMS auth submitted (01/13/20; Auth# [id number] [facility] p: [phone] f: [phone] Dates approved: 01/23/20-06/13/20 Services approved: [id number] [...] medical team; services complete. Nikki Blount LMSW, [facility] Operations Processor- Baling Machine Tender Management [facility]- [facility] Pager: [phone] Em: [email or web address] Nikki Rolon LMSW - 02/14/2020 10:22 AM CSTSocial Work Note Operations Processor (ROB) attempted to contact Stripping Shovel Oiler (Dani Barlow p: [phone]) regarding assigned CM contact information, additional EMS trips and Home Health services vs OP (SLT); leftmessage. SW will continue attempts to contact. Operations Processor (ROB) contacted EMS provider (Shila Sousa with [facility] p: [phone] Em: [email or web address]: [phone] ) to coordinate/schedule additional EMS transports for new appointments (02/17/20, 02/22/20, and 03/14/20). EMS advised new PCS form will be required 03/16/2020. No new needs identified at present. ROB provideddates, address, clinic contact information fr scheduled appoitnment; services complete. Nikki Blount LMSW, [facility] Operations Processor- Baling Machine Tender Management [facility] Pager: [phone] Em: [email or web address] Nikki Rolon LMSW - 02/14/2020 10:22 AM CSTSocial Work Note Operations Processor (ROB) received call from Stripping Shovel Oiler (Dani Barlwo p: [phone]) regarding Home Health services vs OP (SLT); CM Photo Offset Printer. pending/reviewing. CM advised sending PCP Star Plus Waiver Program packet to complete/return (Provider). ROB provided updates to medical team. Nikki Blount LMSW, [facility] Operations Processor- Baling Machine Tender Management [facility] Pager: [phone] Em: [email or web address] Nikki Rolon LMSW - 02/14/2020 10:22 AM CSTSocial Work Note Operations Processor (ROB) received consult Insurance denial for HH (SLT). ROB spoke with a [place] Medicaid special education case manager (Dani Benson p: [phone]) regarding patient needs; insurance barriers. CM reviewed patients records; advised will submit concerns to Ins CM Photo Offset Printer; requesting evaluation for Star Plus Waiver Program and expedited Provider services. CM explained will contact patients daughter to review HH- SLT appeal process. SW attempted to contact patients Daughter (Elyssa Scanlon p: [phone]) to provide Ins CM updates; left message. SW will continue attempts to contact. Nikki Blount LMSW, [facility] Operations Processor- Baling Machine Tender Management [facility] Pager: [phone] Em: [email or web address] OLOGY TEACHER documented in this encounter Plan of Treatment Date Type Specialty Care Team Description 02/22/2020 Office Visit Neurology Nick Denson MD [address] [address] 02/24/2020 Office Visit Thoracic Surgery Hossein Stewart MD 301 [place], [place] [phone] Office Visit Pulmonary Disease Bud Haynes MD [address] [address] [phone] 03/14/2020 Appointment Radiology Renan Marcial MD 301 [place], [place] [address] 06/11/2020 Office Visit Cardiology Daya Love M D [address] [place] [address] [place] [address] [phone] Health Maintenance Due Date Last Done Comments [...] Problems Progress Quit using Tobacco Use No [place], tobacco Roberta (cigarettes, smokeless, etc) documented as of this encounter Results Not on filedocumented in this encounter Additional Health Concerns Infection Onset Date Last Indicated Resolved Time 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
--- OUTSIDE RECORDS SUMMARY | 2020-03-10 03:58 | XMS REPORT | Summary of Care ---
:1960 Author Organization [facility] Address [address] [place] [address] Care Team Providers Name Role Phone Gatito Chauhan MD Primary Care Provider Zeke Márquez Insurance Hmo Reason for Visit Reason Comments Social Work Insurance denial for (SLT ) Encounter Details Date Type Department Care Team Description 02/14/2020 Patient Outreach [facility] Nikki Blount, Social W ork Pediatric and Adult CLINICAL NURSING COORDINATOR (Insurance denial Primary Care- [address] [place] [address] for (SLT) ) [place] [address] [address], [address] [place] [address] Allergies No Known Allergiesdocumented as [...] enteral Coronary artery disease tube daily. involving iliamna coronary artery of iliamna heart without angina pectoris, Cerebrovascular accident (CVA), unspecified mechanism, Essential hypertension atorvastatin 40 mg Take 1 tablet 90 tablet 3 02/06/2020 Active tabletIndications: through enteral Coronary artery disease tube at involving iliamna bedtime. coronary artery of iliamna heart without angina pectoris, Cerebrovascular accident (CVA), unspecified mechanism, Essential hypertension famotidine 20 mg Take 1 tablet 90 tablet 3 02/06/2020 Active tabletIndications: by mouth 2 Gastroesophageal reflux (two) times disease, unspecified daily. whether esophagitis present lisinopriL 40 mg Take 1 tablet 90 tablet 3 02/06/2020 Active tabletIndications: by mouth daily. Coronary artery disease involving iliamna coronary artery of iliamna heart without angina pectoris, Essential hypertension Polyethylene [...] with No / Unsure 02/06/2020 10:40 AM INSURANCE INSPECTOR someone who was confirmed or suspected to have 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 documented as of this encounter Last Filed Vital Signs Not on filedocumented in this encounter Progress Notes Nikki Blount LMSW - 02/14/2020 10:22 AM CSTSocial Work Note Shoder Filler (ROB) communicated with Motor Overhauler (Dani Yijennifermiguel p:[phone]) regarding HH and EMS. CM advised auth received: Auth # [id number] 30 A Dates: 02/17/20-06/11/20 CM provided [facility] providers ([facility] p: [phone] and [facility] ([place] p: [phone]); advising [facility] in out of network. CM advised HH approved for OT/SN; researching SLT. SW spoke with HH provider (Osmar with [facility] p: [phone]) regarding patients services. HH confirmed patient is receiving SN, OT, SLT (*admit today/auth received). PT discharged (02/07/20-met goals). ROB contacted [facility] EMS providers to attempt and arrange transport using auth number provided ([id number] 30 A): [facility] p: [phone] -advisedwill need to consult Software Qa Manager;will call back. [facility] ([place] p: [phone]) ran patients benefits; advised "Pt only has custodial carebenefits/prior auth required through [facility]". ROB communicated information received to [facility] CM; advising forms submitted ([place] and [facility]) to [facility] dept yesterday (02/17/20); requesting assistance. Nikki Bloutn LMSW, [facility] Shoder Filler- [employer] [facility]- Community Based [facility] ,and [place] Pager: [phone] Em: [email or web address] Nikki Rolon LMSW - 02/14/2020 10:22 AM CSTSocial Work Note Shoder Filler (ROB) attempted to contact Patients Motor Overhauler (Dani Barlow p: [phone] with [place] [employer]) by phone regarding EMS auth request for additional units; left message. SW communicated with EMS (Madison Potter with [facility] p: [phone] Ext [phone]/ [phone]/f: [phone]) regarding EMS auth request for additional units. EMS denies receipt of auth; unable to scheduled transport until auth received. SW spoke with patients daughter (Elyssa Scanlon p: [phone]) by phone regarding additional AUTH unitsfor appointments added AFTER initial auth provided. Daughter reports appointment rescheduled (02/24/20 at 1:45pm). SW reviewed Auth process; will provide updates upon receipt. Daughter verbalized understanding. SW reviewed cell manager contact information; encouraging daughter to contact for Star Waiver program assessment, HH (OT), and DME needs. Daughter verbalized understanding; will contact today. Daughter requests information for DME (formula). SW encouraged Daughter to contact clinic for needs; DME assistance provided by clinic staff. Daughter verbalized understanding. No new needs identifiedat present. SW will provided updates to EMS, Daughter upon receipt. Nikki Blount LMSW, [facility] Shoder Filler- [employer] [facility]- Community Based Clinics [facility] ,and [place] Pager: [phone] Em: [email or web address] Nikki Rolon LMSW - 02/14/2020 10:22 AM CSTSocial Work Note Shoder Filler (ROB) spoke with patients insurance inspector (Dani Barlow p: [phone]) by phone regarding EMS auth request for additional units for appointments added AFTER initial request/auth received. CM advised will consult Software Qa Manager and Director regarding patient needs; provide updates upon receipt. SW attempted to contact [facility] Department (Diana Marin p: [phone] x [phone] f" [phone]) regarding additional AUTH units for appointments added AFTER initial auth provided; left message. ROB spoke with [place] Dept (Mandy p: [phone]) regarding additional AUTH units for appointments added AFTER initial auth provided. UM confirmed receipt of documents/forms; marked expedited; have up to 72 hours to process ~ Thursday02/19/20. UM sent email to RN & Software Qa Manager for Urgent assistance. Uncertain if auth will be received by tomorrow/may have to reschedule appointment. SW provided updates receive to EMS provider ([facility] P: [phone]). ROB continue following up and call/email with updates. Nikki Blount LMSW, [facility] Shoder Filler- [employer] [facility]- [facility] Pager: [phone] Em: [email or web address] ikki Blount LMSW - 02/14/2020 10:22 AM CSTSocial Work Note Shoder Filler (ROB) spoke with patients insurance inspector (Dani Barlow p: [phone]) by phone regarding EMS auth request for additional appointment added after initial request/auth received.CM advised to complete/submit [facility] prior auth request form and [employer] [place] [employer] [facility] prior Auth Request (Form F 72242) for authorization completion to Patient's insurance provider ([place] [employer] p: [phone] f: [phone]). ROB competed Ins and EMS forms; provided toPCP for completion/return. No new needs identified at present. ROB services complete. Nikki Blount LMSW, [facility] Shoder Filler- [employer] [facility]- [facility] Pager: [phone] Em: [email or web address] Nikki Rolon LMSW - 02/14/2020 10:22 AM CSTSocial Work Note Shoder Filler (ROB)spoke with [employer] (Dani Barlow p: [phone]) regarding Additional units for EMS auth submitted (01/13/20; Auth# [id number] [facility] p: [phone] f: [phone] Dates approved: 01/23/20-06/13/20 Services approved: [id number] [...] team; services complete. Nikki Blount LMSW, [facility] Shoder Filler- [employer] [facility]- [facility] ,[facility] Pager: [phone] Em: [email or web address] Nikki Rolon LMSW - 02/14/2020 10:22 AM CSTSocial Work Note Shoder Filler (ROB) attempted to contact Motor Overhauler (Dani Barlow p: [phone]) regarding assigned CM contact information, additional EMS trips and Home Health services vs OP (SLT); leftmessage. ROB will continue attempts to contact. Shoder Filler (ROB) contacted EMS provider (Shila Sousa with [facility] p: [phone] x [phone] Em: [email or web address]: [phone] ) to coordinate/schedule additional EMS transports for new appointments (02/17/20, 02/22/20, and 03/14/20). EMS advised new PCS form will be required 03/16/2020. No new needs identified at present. ROB provideddates, address, clinic contact information fr scheduled appoitnment; services complete. Nikki Blount LMSW, [facility] Shoder Filler- [employer] [facility] Pager: [phone] Em: [email or web address] Nikki Rolon LMSW - 02/14/2020 10:22 AM CSTSocial Work Note Shoder Filler (ROB) received call from Motor Overhauler (Dani Barlow p: [phone]) regarding Home Health services vs OP (SLT); CM Software Qa Manager. pending/reviewing. CM advised sending PCP Star Plus Waiver Program packet to complete/return (Provider). SW provided updates to medical team. Nikki Blount LMSW, [facility] Shoder Filler- [employer] [facility] Pager: [phone] Em: [email or web address] Nikki Rolon LMSW - 02/14/2020 10:22 AM CSTSocial Work Note Shoder Filler (ROB) received consult Insurance denial for HH (SLT). SW spoke with a [employer] Medicaid director case management (Dani Benson p: [phone]) regarding patient needs; insurance barriers. CM reviewed patients records; advised will submit concerns to Ins CM Software Qa Manager; requesting evaluation for Star Plus Waiver Program and expedited Provider services. CM explained will contact patients daughter to review HH- SLT appeal process. SW attempted to contact patients Daughter (Elyssa Scanlon p: [phone]) to provide Ins CM updates; left message. SW will continue attempts to contact. Nikki Blount LMSW, CCM Shoder Filler- [employer] [facility] Pager: [phone] Em: [email or web address] RANCE INSPECTOR documented in this encounter Plan of Treatment Date Type Specialty Care Team Description 02/22/2020 Office Visit Neurology Nick Denson MD [address] [facility] [place] [phone] 02/24/2020 Office Visit Thoracic Surgery Hossein Stewart MD [address] [place], [place] [phone] Office Visit Pulmonary Disease Bud Haynes MD [address] [address] [phone] 03/14/2020 Appointment Radiology Renan Marcial MD [address] [place], [place] [address] 06/11/2020 Office Visit Cardiology Daya Love M D [address] [place] [address] [place] [address] [phone] Health Maintenance Due Date Last Done Comments [...] / Subscriber ID Effective Phone Address T [facility] Group Dates [facility] [employer] [id number] 2015-Pres [address] Medic aid [facility]ALTH[employer] - HEALTHCARE ent [id number] MANAGED MEDICAID [place], [place]ICA[place] documented as of this encounter
--- OUTSIDE RECORDS SUMMARY | 2020-03-10 03:58 | XMS REPORT | Summary of Care ---
:1960 Author Organization [facility] - [facility] Address [address] [place] [address] Care Team Providers Name Role Phone Gatito Chauhan MD Primary Care Provider Zeke Márquez Insurance Hmo Reason for Visit Reason Comments Social Work Insurance denial for (SLT ) Encounter Details Date Type Department Care Team Description 02/14/2020 Patient Outreach [facility] Nikki Blount, Social W ork Pediatric and Adult DESCRIPTIVE CATALOG LIBRARIAN (Insurance denial Primary Care- [address] [place] [address] for (SLT) ) [place] [address] Drive, [address] [place] [address] Allergies No Known Allergiesdocumented as of this encounter (statuses as of 02/20/2020) Medications Medication Sig Dispensed Refills Start Date [...] enteral Coronary artery disease tube daily. involving [place] coronary artery of [place] heart without angina pectoris, Cerebrovascular accident (CVA), unspecified mechanism, Essential hypertension atorvastatin 40 mg Take 1 tablet 90 tablet 3 02/06/2020 Active tabletIndications: through enteral Coronary artery disease tube at involving [place] bedtime. coronary artery of [place] heart without angina pectoris, Cerebrovascular accident (CVA), unspecified mechanism, Essential hypertension famotidine 20 mg Take 1 tablet 90 tablet 3 02/06/2020 Active tabletIndications: by mouth 2 Gastroesophageal reflux (two) times disease, unspecified daily. whether esophagitis present lisinopriL 40 mg Take 1 tablet 90 tablet 3 02/06/2020 Active tabletIndications: by mouth daily. Coronary artery disease involving [place] coronary artery of [place] heart without angina pectoris, Essential hypertension Polyethylene Glycol 3350 Take 1 Packet 180 Packet 3 02/06/2020 Active 17 gram through enteral powderIndications: tube 2 (two) Constipation, times daily. unspecified constipation type risperiDONE 0.5 mg Take 1 tablet 180 tablet 3 02/06/2020 Active tabletIndications: through enteral Schizophrenia, tube 2 (two) unspecified type times daily. 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 documented as of this encounter Last Filed Vital Signs Not on filedocumented in this encounter Progress Notes Nitza Kim LMSW - 02/14/2020 10:22 AM CSTSocial Work Note Lizzie with [facility] contacted DESCRIPTIVE CATALOG LIBRARIAN back and informed her that the insurance was okay and they are accepting the transports for the patient that were requested. Nitza Wolf. DIANA Kim, [facility]- Ambulatory Special Education Director - Care Management [facility] Based Clinics / Adult & Pediatrics - [facility] [phone] office DESIGN ENGINEER Nikki Blount LMSW - 02/14/2020 10:22 AM CSTSocial Work Note Special Education Director (ROB) spoke with [facility] provider (Lizzie with [facility] p: [phone] F: [phone]) to arrange transport using auth number provided ([id number]). EMS requests patient demographics and appointment information for review. ROB sent requested information with EMS Auth. Nikki Blount LMSW, [facility] Special Education Director- Cyber Software Engineer Management [facility]- Community Based Clinics [facility] [place] Pager: [phone] Em: [email or web address] Appointments: Funmilayo Mcmillan Date: 02/22/2020 Time: 2:30 PM Provider: Nick Denson MD Department: [facility] NEUROLOG[facility] Clinic Clinic Address [address] [place] [address], [address] [place] [address] Funmilayo Mcmillan Date: 02/24/2020 Time: 1:45 PM Visit Type: NEW VISIT (FIRST TIME) [53] Copay: $0.00 Provider: Hossein Stewart MD Department: [facility] Clinic Clinic Address [address] [place] [address] Funmilayo Mcmillan Date: 2020 Time: 11:00 AM Provider: Timmy Haynes MD Department: [facility] COVID RECOVERY Clinic Clinic Address [address] [place] [address] Funmilayo Mcmillan Date: 03/14/2020 Time: 10:00 AM Provider: IR GASTRO TUBE CHANGE (WITH FLUORO) Clinic Clinic Address: [address] [place] [address] Funmilayo Mcmillan Date: 06/11/2020 Time: 2:20PM Provider: Mecca Love MD [facility] C[facility] Clinic Clinic Address: [address] [place] [address], [address] [place] [phone] Nikki Rolon LMSW - 02/14/2020 10:22 AM CSTSocial Work Note Special Education Director (ROB) communicated with Registered Nurse Practitioner (Dani Barlow p:[phone]) regarding HH and EMS. CM advised auth received: Auth # [id number] Dates: 02/17/20-06/11/20 CM provided In network providers ([facility] p: [phone] and [facility] ([place] p: [phone]); advising [facility] in out of network. CM advised HH approved for OT/SN; researching SLT. ROB spoke with HH provider (Osmar with [facility] p: [phone]) regarding patients services. HH confirmed patient is receiving SN, OT, SLT (*admit today/auth received). PT discharged (02/07/20-met goals). ROB contacted [facility] EMS providers to attempt and arrange transport using auth number provided ([id number] 30 A): [facility] p: [phone] -advisedwill need to consult [employer];will call back. [facility] ([place] p: [phone]) ran patients benefits; advised "Pt only has met[place] carebenefits/prior auth required through [facility]". ROB communicated information received to [facility] ; advising forms submitted ([place] and [employer]) to [facility] dept yesterday (02/17/20); requesting assistance. Nikki Blount LMSW, [facility] Special Education Director- Cyber Software Engineer Management [facility]- [facility] [place]and [place] Pager: [phone] Em: [email or web address] Nikki Rolon LMSW - 02/14/2020 10:22 AM CSTSocial Work Note Special Education Director (ROB) attempted to contact Patients Registered Nurse Practitioner (Dani Barlow p: [phone] with [place] [employer]) by phone regarding EMS auth request for additional units; left message. ROB communicated with EMS (Madison Potter with [facility] p: [phone] Ext [phone]/ [phone]/f: [phone]) regarding EMS auth request for additional units. EMS denies receipt of auth; unable to scheduled transport until auth received. ROB spoke with patients daughter (Elyssa Scanlon p: [phone]) by phone regarding additional AUTH unitsfor appointments added AFTER initial auth provided. Daughter reports appointment rescheduled (02/24/20 at 1:45pm). SW reviewed Auth process; will provide updates upon receipt. Daughter verbalized understanding. SW reviewed sr. manager contact information; encouraging daughter to contact for Star Waiver program assessment, HH (OT), and DME needs. Daughter verbalized understanding; will contact today. Daughter requests information for DME (formula). SW encouraged Daughter to contact clinic for needs; DME assistance provided by clinic staff. Daughter verbalized understanding. No new needs identifiedat present. SW will provided updates to EMS, Daughter upon receipt. Nikki Blount LMSW, [facility] Special Education Director- Cyber Software Engineer Management [facility] Pager: [phone] Em: [email or web address] ikki Blount LMSW - 02/14/2020 10:22 AM CSTSocial Work Note Special Education Director (ROB) spoke with patients insurance account specialist (Dani Barlow p: [phone]) by phone regarding EMS auth request for additional units for appointments added AFTER initial request/auth received. CM advised will consult [employer] and Director regarding patient needs; provide updates upon receipt. SW attempted to contact [facility] Department (Diana Marin p: [phone] x [phone] f" [phone]) regarding additional AUTH units for appointments added AFTER initial auth provided; left message. ROB spoke with [facility] Dept (Mandy p: [phone]) regarding additional AUTH units for appointments added AFTER initial auth provided. confirmed receipt of documents/forms; marked expedited; have up to 72 hours to process ~ Thursday02/19/20. sent email to RN & [employer] for Urgent assistance. Uncertain if auth will be received by tomorrow/may have to reschedule appointment. ROB provided updates receive to EMS provider ([facility] P: [phone]). ROB continue following up and call/email with updates. Nikki Blount LMSW, [facility] Special Education Director- Cyber Software Engineer Management [facility] Pager: [phone] Em: [email or web address] Nikki Rolon LMSW - 02/14/2020 10:22 AM CSTSocial Work Note Special Education Director (ROB) spoke with patients insurance account specialist (Dani Barlow p: [phone]) by phone regarding EMS auth request for additional appointment added after initial request/auth received.CM advised to complete/submit [facility] prior auth request form and [facility] Medicaid Nonemergency Ambulance prior Auth Request (Form F 79788) for authorization completion to Patient's insurance provider ([place] [employer] p: [phone] f: [phone]). SW competed Ins and EMS forms; provided toPCP for completion/return. No new needs identified at present. ROB services complete. Nikki Blount LMSW, JENIFER Special Education Director- Cyber Software Engineer Management [facility] Pager: [phone] Em: [email or web address] Nikki Rolon LMSW - 02/14/2020 10:22 AM CSTSocial Work Note Special Education Director (ROB)spoke with [facility] (Dani Barlow p: [phone]) regarding Additional units for EMS auth submitted (01/13/20; Auth# [id number] [facility] p: [phone] f: [phone] Dates approved: 01/23/20-06/13/20 Services approved: [id number] [...] team; services complete. Nikki Blount LMSW, JENIFER Special Education Director- Cyber Software Engineer Management [facility] Pager: [phone] Em: [email or web address] Nikki Rolon LMSW - 02/14/2020 10:22 AM CSTSocial Work Note Special Education Director (ROB) attempted to contact Registered Nurse Practitioner (Dani Barlow p: [phone]) regarding assigned CM contact information, additional EMS trips and Home Health services vs OP (SLT); leftmessage. SW will continue attempts to contact. Special Education Director (ROB) contacted EMS provider (Shila Sousa with [facility] p: [phone] x [phone] Em: [email or web address] Dispatch: [phone] ) to coordinate/schedule additional EMS transports for new appointments (02/17/20, 02/22/20, and 03/14/20). EMS advised new PCS form will be required 03/16/2020. No new needs identified at present. SW provideddates, address, clinic contact information fr scheduled appoitnment; services complete. Nikki Blount LMSW, [facility] Special Education Director- Cyber Software Engineer Management [facility] Pager: [phone] Em: [email or web address] Nikki Rolon LMSW - 02/14/2020 10:22 AM CSTSocial Work Note Special Education Director (ROB) received call from Registered Nurse Practitioner (Dani Barlow p: [phone]) regarding Home Health services vs OP (SLT); CM [employer]. pending/reviewing. CM advised sending PCP Star Plus Waiver Program packet to complete/return (Provider). ROB provided updates to medical team. Nikki Blount LMSW, [facility] Special Education Director- Cyber Software Engineer Management [facility] Pager: [phone] Em: [email or web address] Nikki Rolon LMSW - 02/14/2020 10:22 AM CSTSocial Work Note Special Education Director (ROB) received consult Insurance denial for HH (SLT). ROB spoke with a [place] [facility] case management specialist (Dani Benson p: [phone]) regarding patient needs; insurance barriers. CM reviewed patients records; advised will submit concerns to Ins CM [employer] Vendor; requesting evaluation for Star Plus Waiver Program and expedited Provider services. CM explained will contact patients daughter to review HH- SLT appeal process. SW attempted to contact patients Daughter (Elyssa Scanlon p: [phone]) to provide Ins CM updates; left message. SW will continue attempts to contact. Nikki Blount LMSW, [facility] Special Education Director- Cyber Software Engineer Management [facility]- Community Based [facility] ,and [place] Pager: [phone] Em: [email or web address] DESIGN ENGINEER documented in this encounter Plan of Treatment Date Type Specialty Care Team Description 02/22/2020 Office Visit Neurology Nick Denson MD [address] [place] [address] 555 02/24/2020 Office Visit Thoracic Surgery Hossein Stewart MD [address] [place] [phone] 2020 Office Visit Pulmonary Disease Bud Haynes MD [address] [address] [phone] 03/14/2020 Appointment Radiology Renan Marcial MD [address] [place], [place] [address] 06/11/2020 Office Visit Cardiology Daya Love M D [address] [place] [address] [place] [address] Health Maintenance Due Date Last [...] Phone Address T dustin Group Dates EMRE SOTO [id number] 2015-Pres P [address] BOX Medic aid [place] [id number] MANAGED MEDICAID [place], [place] documented as of this encounter
--- OUTSIDE RECORDS SUMMARY | 2020-03-10 03:58 | XMS REPORT | Summary of Care ---
:1960 Author Organization [facility] - Health Address [address] [place] [address] Care Team Providers Name Role Phone Gatito Chauhan MD Primary Care Provider Zeke Márquez Insurance Hmo Encounter Details Date Type Department Care Team Description 02/14/2020 Orders Only [facility] Doctor Unassigned, No [address] [facility] Name [place] [phone] [place] [address] Allergies No Known Allergiesdocumented as of this [...] enteral Coronary artery disease tube daily. involving [place] coronary artery of [place] heart without angina pectoris, Cerebrovascular accident (CVA), unspecified mechanism, Essential hypertension atorvastatin 40 mg Take 1 tablet 90 tablet 3 02/06/2020 Active tabletIndications: through enteral Coronary artery disease tube at involving [place] bedtime. coronary artery of [place] heart without angina pectoris, Cerebrovascular accident (CVA), unspecified mechanism, Essential hypertension famotidine 20 mg Take 1 tablet 90 tablet 3 02/06/2020 Active tabletIndications: by mouth 2 Gastroesophageal reflux (two) times disease, unspecified daily. whether esophagitis present lisinopriL 40 mg Take 1 tablet 90 tablet 3 02/06/2020 Active tabletIndications: by mouth daily. 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 documented as of this encounter Last Filed Vital Signs Not on filedocumented in this encounter Plan of Treatment Date Type Specialty Care Team Description 02/22/2020 Office Visit Neurology Nick Denson MD [address] [place] [address] 555 02/24/2020 Office Visit Thoracic Surgery Hossein Stewart MD [address] [place] [address] [phone] Office Visit Pulmonary Disease Bud Haynes MD [address] [address] [phone] 03/14/2020 Appointment Radiology Renan Marcial MD [address] [place], [place] [address] 06/11/2020 Office Visit Cardiology Daya Love M D [address] [place] [address] 15 Health Maintenance Due Date Last Done [...] Name Priority Date/Time Associated Diagnosis Comme nts HOME HEALTH - OTHER Routine 02/14/2020 12:01 AM PROGRAM SUPPORT CLERK documented in this encounter Results Not on filedocumented in this encounter Additional Health Concerns Infection Onset Date Last Indicated Resolved Time Contact- MRSA 01/12/2020 01/12/2020 documented as of this encounter Insurance Payer Benefit Plan / Subscriber ID Effective Phone Address T [facility] Group Dates EMRE ANDREA [id number] 2015-Pres [address] Medic aid HEALTHCARE [place]CARE [place] [id number] MANAGED MEDICAID [place], [place] documented as of this encounter
--- OUTSIDE RECORDS SUMMARY | 2020-03-10 03:59 | XMS REPORT | Summary of Care ---
:1960 Author Organization [facility] - [facility] Address [address] [place] [address] Care Team Providers Name Role Phone Gatito Chauhan MD Primary Care Provider Zeke Márquez Insurance Hmo Reason for Visit Reason Comments Assessment Patient food w/feeding tube Orders Encounter Details Date Type Department Care Team Description 02/17/2020 Telephone [facility] Family Bev Chauhan sseadrian (Patient Medicine - Azar Mederos MD food w/feeding tube); 136 [facility] [address] [facility] [address] [place], [place] [phone] Allergies No Known Allergiesdocumented as of this encounter (statuses as of 02/23/2020) Medications Medication Sig Dispensed Refills Start Date [...] enteral Coronary artery disease tube daily. involving [place] coronary artery of [place] heart without angina pectoris, Cerebrovascular accident (CVA), unspecified mechanism, Essential hypertension atorvastatin 40 mg Take 1 tablet 90 tablet 3 02/06/2020 Active tabletIndications: through enteral Coronary artery disease tube at involving [place] bedtime. coronary artery of [place] heart without angina pectoris, Cerebrovascular accident (CVA), unspecified mechanism, Essential hypertension famotidine 20 mg Take 1 tablet 90 tablet 3 02/06/2020 Active tabletIndications: by mouth 2 Gastroesophageal reflux (two) times disease, unspecified daily. whether esophagitis present lisinopriL 40 mg Take 1 tablet 90 tablet 3 02/06/2020 Active tabletIndications: by mouth daily. Coronary artery disease involving [place] coronary artery of [place] heart without angina pectoris, Essential hypertension Polyethylene Glycol 3350 Take 1 Packet 180 Packet 3 02/06/2020 Active 17 gram through enteral powderIndications: tube 2 (two) Constipation, times daily. unspecified constipation type risperiDONE 0.5 mg Take 1 tablet 180 tablet 3 02/06/2020 Active tabletIndications: through enteral Schizophrenia, tube 2 (two) unspecified type times daily. Miscellaneous Medical Patient needs 270 Each 11 02/23/2020 Active Supply Misc Jevity, she consumes 9 bottles a day. 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 documented as of this encounter Last Filed Vital Signs Not on filedocumented in this encounter Miscellaneous Notes Telephone Encounter - Melanie Sousa - 02/23/2020 10:05 AM CSTSpoke to daughter, She reports having a high risk case manager who reported DME supplies should be dropped off today. Mrs. Mcmillan should have milk only for today. She does not have any information on the high risk case manager or documentation on DME company that they use due their move. Adviced patient daughter to follow up with geriatric case manager. Due to needing DME company information if patient is wanting to keep company they are using already. Melanie Sousa 02/23/2020 3:26 PM elephone Encounter - Melanie Sousa - 02/22/2020 8:24 AM CSTAttempted to call patient, n/a, not able to left message, mailbox is full. I need a DME company for her Jevity. Please ask her to call her insurance to get a DME company name or i can send to a local DME of her choice. It may be cheaper with Insurance company choice. elephone Encounter - Sindi Carias - 02/21/2020 1:16 PM CSTPatients daughter is stating the name of the milk she currently takes is Jevity and she consumes 6 bottles of 9 oz a day. She does not have the information of the DME company she was previously receiving it from. Please advise. elephone Encounter - Lars Melanie - 02/17/2020 4:49 PM CSTAttempted to call patient, n/a, left message to call clinic back. Need a name for DME company the patient would like to use? How much milk is patient consuming a day? OZ? What is the name for the milk? Melanie Sousa 02/17/2020 4:51 PM elephone Encounter - Michelle Gaming - 02/17/2020 10:47 AM CSTPt daughter is calling to find out how to order food for her mother due to she has feeding tube. documented in this encounter Plan of Treatment Date Type Specialty Care Team Description 02/24/2020 Office Visit Thoracic Surgery Hossein Stewart MD [address] [place] [address] [phone] 03/14/2020 Appointment Radiology Renan Marcial MD [address] [place] [address] 03/27/2020 Office Visit Neurology Nick Denson MD [address] [place], [place] [address] 06/07/2020 Office Visit Pulmonary Disease Bo Mejia MD [address] [facility] [address] [place] [address] 555 06/11/2020 Office Visit Cardiology Daya Love M D [address] [place] [address] [place] [address]75 15 Health Maintenance Due Date Last [...] / Subscriber ID Effective Phone Address T [facility] Group Dates EMRE ANDREA [id number] 2015-Pres [address] BOX Medic aid HEALTHCARE [place]CARE [place] [id number] MANAGED MEDICAID [place] documented as of this encounter
--- OUTSIDE RECORDS SUMMARY | 2020-03-10 03:59 | XMS REPORT | Summary of Care ---
:1960 Author Organization [facility] Address [address] [place] [address] Care Team Providers Name Role Phone Gatito Chauhan MD Primary Care Provider Zeke Márquze Insurance Hmo Reason for Visit Reason Comments Social Work Insurance denial for (SLT ) Encounter Details Date Type Department Care Team Description 02/14/2020 Patient Outreach [facility] Nikki Blount, Social W ork Pediatric and Adult MANAGER STRATEGY & ACCOUNT (Insurance denial Primary Care- [address] [place] [address] for (SLT) ) [place] [address] Drive, [address] [place] [address] Allergies No Known Allergiesdocumented as of this encounter (statuses as of 02/21/2020) Medications Medication Sig Dispensed Refills Start Date [...] enteral Coronary artery disease tube daily. involving wilton coronary artery of wilton heart without angina pectoris, Cerebrovascular accident (CVA), unspecified mechanism, Essential hypertension atorvastatin 40 mg Take 1 tablet 90 tablet 3 02/06/2020 Active tabletIndications: through enteral Coronary artery disease tube at involving wilton bedtime. coronary artery of wilton heart without angina pectoris, Cerebrovascular accident (CVA), unspecified mechanism, Essential hypertension famotidine 20 mg Take 1 tablet 90 tablet 3 02/06/2020 Active tabletIndications: by mouth 2 Gastroesophageal reflux (two) times disease, unspecified daily. whether esophagitis present lisinopriL 40 mg Take 1 tablet 90 tablet 3 02/06/2020 Active tabletIndications: by mouth daily. Coronary artery disease involving wilton coronary artery of wilton heart without angina pectoris, Essential hypertension Polyethylene Glycol 3350 Take 1 Packet 180 Packet 3 02/06/2020 Active 17 gram through enteral powderIndications: tube 2 (two) Constipation, times daily. unspecified constipation type risperiDONE 0.5 mg Take 1 tablet 180 tablet 3 02/06/2020 Active tabletIndications: through enteral Schizophrenia, tube 2 (two) unspecified type times daily. 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 documented as of this encounter Last Filed Vital Signs Not on filedocumented in this encounter Progress Notes Nikki Blount LMSW - 02/14/2020 10:22 AM CSTSocial Work Note Web Database Developer (ROB) received message from [employer] Risk Manager-RN (Latisha Marin p: [phone]) regarding patients EMS authorization. UM adviced EMS auth approved (5 Round Trips); document faxed to PCP & EMS providers. (02/21/20: Auth# [id number] [facility] p: [phone] f: [phone] Dates approved: 02/21/20-06/13/20 Services approved: [id number] 10 units (round trip) A0425 (No Prior AUTH required for services code when rendered by In-network provider). Nikki Blount LMSW, [facility] Web Database Developer- Insole Lip Turner Management [facility]- [facility] [place] Pager: [phone] Em: [email or web address] Nikki Rolon LMSW - 02/14/2020 10:22 AM CSTSocial Work Note Web Database Developer (ROB) attempted to contact web manager (Dani Barlow p: [phone]) regarding in network EMS provider accepting patient transport needs; out of office message received (OOO 02/21/20-03/26/20; call p: [phone] for covering CM). ROB spoke with Insurance UM (Latisha Marin p: [phone]) by phone regarding In Network EMS provider ([facility] p: [phone] F: [phone]) confirming/accepting patient transport needs; requesting assistance regarding AUTH number provided (Auth # [id number] Dates: 02/16-06/11/20). UM confirmed will create Auth; will fax to EMS provider and SW. SW spoke with EMS (Vannessa with [facility] p: [phone] f: [phone]) regarding UM faxing Auth document to patients transports (5). EMS verbalized understanding. SW reviewed Daughters ability to ride. EMS confirmed daughter able to accompany patient during transports. SW spoke with Patients Daughter (Elyssa Scanlon p: [phone]) by phone regarding EMS transports. SW reviewed EMS provider contact information: approval to accompany patient during transports. Daughter verbalized understanding; advised MD office contacted rescheduled 02/22/20 appointment to 03/27/20. SW contacted EMS (Vannessa) providing patient appointment changes. EMS verbalized understanding. No new needs identified at present. SW services complete. Nikki Blount LMSW, CCM Web Database Developer- Insole Lip Turner Management [facility]- [facility] ,and [place] Pager: [phone] Em: [email or web address] Appointments: Funmilayo Mcmillan Date: 02/22/2020 rescheduled 03/27/20 at 1:30pm Time: 2:30 PM Provider: Nick Denson MD Department: [facility] NEUROLOG[facility] Clinic Clinic Address [address] [place] [address], [address] [place] [address] Funmilayo Mcmillan Date: 02/24/2020 Time: 1:45 PM Visit Type: NEW VISIT (FIRST TIME) [53] Copay: $0.00 Provider: Hossein Stewart MD Department: THORACIC SURGERY-[facility] Clinic Clinic Address [place] [id number] [facility], [address] [place] [address] Funmilayo Mcmillan Date: 2020 Time: 11:00 AM Provider: Timmy Haynes MD Department: [facility] COVID RECOVERY Clinic Clinic Address [address] [facility], [address]rd [place] [address] Funmilayo Mcmillan Date: 03/14/2020 Time: 10:00 AM Provider: IR GASTRO TUBE CHANGE (WITH FLUORO) Clinic Clinic Address: [address] [place] [address] [place] [address] Funmilayo Mcmillan Date: 06/11/2020 Time: 2:20PM Provider: Mecca Love MD [facility] CARDIOLOGY Clinic Clinic Address: [address] [place] [address], [address] [place] [address] Nitza Mcclellan LMSW - 02/14/2020 10:22 AM CSTSocial Work Note Lizzie with [facility] contacted MANAGER STRATEGY & ACCOUNT back and informed her that the insurance was okay and they are accepting the transports for the patient that were requested. Nitza Kim LMSW, [facility]- Ambulatory Web Database Developer - Care Management [facility] / Adult & Pediatrics - [facility] / [facility] [phone] office Y MAKER HELPER Nikki Blount LMSW - 02/14/2020 10:22 AM CSTSocial Work Note Web Database Developer (ROB) spoke with In Network EMS provider (Lizzie with [facility] p: [phone] F: [phone]) to arrange transport using auth number provided ([id number] 30 A). EMS requests patient demographics and appointment information for review. SW sent requested information with EMS Auth. Nikki Blount LMSW, [facility] Web Database Developer- Insole Lip Turner Management [facility]- Community Based [facility] ,and [place] Pager: [phone] Em: [email or web address] Appointments: Funmilayo Mcmillan Date: 02/22/2020 Time: 2:30 PM Provider: Nick Denson MD Department: [facility] NEUROLOGY Clinic Clinic Address [address] [place] [address] Funmilayo Mcmillan Date: 02/24/2020 Time: 1:45 PM Visit Type: NEW VISIT (FIRST TIME) [53] Copay: $0.00 Provider: Hossein Stewart MD Department: [facility] Clinic Clinic Address [address], [address] [place] [address] Funmilayo Mcmillan Date: 2020 Time: 11:00 AM Provider: Timmy Haynes MD Department: [facility] COVID RECOVERY Clinic Clinic Address [address] [place] [address] Funmilayo Mcmillan Date: 03/14/2020 Time: 10:00 AM Provider: IR GASTRO TUBE CHANGE (WITH FLUORO) Clinic Clinic Address: [address] [place] [address] Funmilayo Mcmillan Date: 06/11/2020 Time: 2:20PM Provider: Mecca Love MD [facility] CARDIOLOGY Clinic Clinic Address: [address] [place] [address], [address] [address] Nikki Rolon LMSW - 02/14/2020 10:22 AM CSTSocial Work Note Web Database Developer (SW) communicated with Sales And Marketing Administrator (Dani Barlow p:[phone]) regarding HH and EMS. CM advised auth received: Auth # [id number] Dates: 02/17/20-06/11/20 CM provided In network providers ([facility] p: [phone] and [facility] (Vannessa p: [phone]); advising [facility] in out of network. CM advised HH approved for OT/SN; researching SLT. ROB spoke with HH provider (Osmar with [facility] p: [phone]) regarding patients services. HH confirmed patient is receiving SN, OT, SLT (*admit today/auth received). PT discharged (02/07/20-met goals). ROB contacted [facility] EMS providers to attempt and arrange transport using auth number provided ([id number] 00 30 A): [facility] p: [phone] -advisedwill need to consult Wet Cotton Feeder;will call back. [facility] (Vannessa p: [phone]) ran patients benefits; advised "Pt only has terminal gauger supervisor carebenefits/prior auth required through [facility]". ROB communicated information received to [facility] CM; advising forms submitted ([employer] and [facility]) to [facility] dept yesterday (02/17/20); requesting assistance. Nikki Blount LMSW, [facility] Web Database Developer- Insole Lip Turner Management [facility]- Community Based Clinics [facility] ,and [place] Pager: [phone] Em: [email or web address] Nikki Rolon LMSW - 02/14/2020 10:22 AM CSTSocial Work Note Web Database Developer (ROB) attempted to contact Patients Sales And Marketing Administrator (Dani Yinori p: [phone] with [place] [employer]) by phone regarding EMS auth request for additional units; left message. ROB communicated with EMS (Madison Potter with [facility] p: [phone]/ [phone]/f: [phone]) regarding EMS auth request for additional units. EMS denies receipt of auth; unable to scheduled transport until auth received. ROB spoke with patients daughter (Elyssa Scanlon p: [phone]) by phone regarding additional AUTH unitsfor appointments added AFTER initial auth provided. Daughter reports appointment rescheduled (02/24/20 at 1:45pm). SW reviewed Auth process; will provide updates upon receipt. Daughter verbalized understanding. SW reviewed credit portfolio manager contact information; encouraging daughter to contact for Star Waiver program assessment, HH (OT), and DME needs. Daughter verbalized understanding; will contact today. Daughter requests information for DME (formula). SW encouraged Daughter to contact clinic for needs; DME assistance provided by clinic staff. Daughter verbalized understanding. No new needs identifiedat present. SW will provided updates to EMS, Daughter upon receipt. Nikki Blount LMSW, [facility] Web Database Developer- Insole Lip Turner Management [facility] Pager: [phone] Em: [email or web address] ikki Blount LMSW - 02/14/2020 10:22 AM CSTSocial Work Note Web Database Developer (ROB) spoke with patients hospital insurance clerk (Dani Barlow p: [phone]) by phone regarding EMS auth request for additional units for appointments added AFTER initial request/auth received. CM advised will consult Wet Cotton Feeder and Director regarding patient needs; provide updates upon receipt. ROB attempted to contact [facility] Department (Diana Marin p: [phone] f" [phone]) regarding additional AUTH units for appointments added AFTER initial auth provided; left message. ROB spoke with [facility] Dept (Mandy p: [phone]) regarding additional AUTH units for appointments added AFTER initial auth provided. confirmed receipt of documents/forms; marked expedited; have up to 72 hours to process ~ Thursday02/19/20. sent email to RN & Wet Cotton Feeder for Urgent assistance. Uncertain if auth will be received by tomorrow/may have to reschedule appointment. ROB provided updates receive to EMS provider ([facility] P: [phone]). SW continue following up and call/email with updates. Nikki Blount LMSW, [facility] Web Database Developer- Insole Lip Turner Management [facility] Pager: [phone] Em: [email or web address] Nikki Rolon LMSW - 02/14/2020 10:22 AM CSTSocial Work Note Web Database Developer (ROB) spoke with patients hospital insurance clerk (Dani Yinori p: [phone]) by phone regarding EMS auth request for additional appointment added after initial request/auth received.CM advised to complete/submit [facility] prior auth request form and [facility] Medicaid Nonemergency Ambulance prior Auth Request (Form F 02075) for authorization completion to Patient's insurance provider ([employer] p: [phone] f: [phone]). SW competed Ins and EMS forms; provided toPCP for completion/return. No new needs identified at present. SW services complete. Nikki Blount LMSW, [facility] Web Database Developer- Insole Lip Turner Management [facility] Pager: [phone] Em: [email or web address] Nikki Rolon LMSW - 02/14/2020 10:22 AM CSTSocial Work Note Web Database Developer (ROB)spoke with [employer] Clinical Research Coordinator (Dani Yinori p: [phone]) regarding Additional units for EMS auth submitted (01/13/20; Auth# [id number] [facility] p: [phone] f: [phone] Dates approved: 01/23/20-06/13/20 Services approved: [id number] 8 [...] team; services complete. Nikki Blount LMSW, [facility] Web Database Developer- Insole Lip Turner Management [facility] Pager: [phone] Em: [email or web address] Nikki Rolon LMSW - 02/14/2020 10:22 AM CSTSocial Work Note Web Database Developer (ROB) attempted to contact Sales And Marketing Administrator (Dani Barlow p: [phone]) regarding assigned CM contact information, additional EMS trips and Home Health services vs OP (SLT); leftmessage. SW will continue attempts to contact. Web Database Developer (ROB) contacted EMS provider (Shila Sousa with [facility] p: [phone] Em: [email or web address]: [phone] ) to coordinate/schedule additional EMS transports for new appointments (02/17/20, 02/22/20, and 03/14/20). EMS advised new PCS form will be required 03/16/2020. No new needs identified at present. ROB provideddates, address, clinic contact information fr scheduled appoitnment; services complete. Nikki Blount LMSW, [facility] Web Database Developer- Insole Lip Turner Management [facility] Pager: [phone] Em: [email or web address] Nikki Rolon LMSW - 02/14/2020 10:22 AM CSTSocial Work Note Web Database Developer (ROB) received call from Sales And Marketing Administrator (Dani Barlow p: [phone]) regarding Home Health services vs OP (SLT); CM Wet Cotton Feeder. pending/reviewing. CM advised sending PCP Star Plus Waiver Program packet to complete/return (Provider). SW provided updates to medical team. Nikki Blount LMSW, CCM Web Database Developer- Insole Lip Turner Management [facility]- [facility] Pager: [phone] Em: [email or web address] ikki Blount LMSW - 02/14/2020 10:22 AM CSTSocial Work Note Web Database Developer (ROB) received consult Insurance denial for HH (SLT). SW spoke with a [employer] telephonic nurse case manager (Dani Benson p: [phone]) regarding patient needs; insurance barriers. CM reviewed patients records; advised will submit concerns to Ins CM Wet Cotton Feeder; requesting evaluation for Star Plus Waiver Program and expedited Provider services. CM explained will contact patients daughter to review HH- SLT appeal process. SW attempted to contact patients Daughter (Elyssa Scanlon p: [phone]) to provide Ins CM updates; left message. SW will continue attempts to contact. Nikki Blount LMSW, [facility] Web Database Developer- Insole Lip Turner Management [facility]- [facility] Based [facility] ,and [place] Pager: [phone] Em: [email or web address] Y MAKER HELPER documented in this encounter Plan of Treatment Date Type Specialty Care Team Description 02/24/2020 Office Visit Thoracic Surgery Hossein Stewart MD [address] [place] [address] [phone] 2020 Office Visit Pulmonary Disease Bud Haynes MD [address] [address] [phone] 03/14/2020 Appointment Radiology Renan Marcial MD [address] [place], [place] [address] 03/27/2020 Office Visit Neurology Nick Denson MD [address] [place], [place] [address] 06/11/2020 Office Visit Cardiology Daya Love M D [address] [facility] [address] [place], [place] [address] [phone] Health Maintenance Due Date Last Done Comments [...] Phone Address T ype Group Dates EMRE SOTO [id number] 2014-Pres [address] Medic aid [facility] [place] [id number] MANAGED MEDICAID [place], MEDICAID [place] documented as of this encounter
--- OUTSIDE RECORDS SUMMARY | 2020-03-10 03:59 | XMS REPORT | Summary of Care ---
:1960 Author Organization [facility] Address [address] [place] [address] Care Team Providers Name Role Phone Gatito Chauhan MD Primary Care Provider Zeke Márquez Insurance Hmo Reason for Visit Reason Comments Social Work Insurance denial for (SLT ) Encounter Details Date Type Department Care Team Description 02/14/2020 Patient Outreach [facility] Nikki Blount, Social W ork Pediatric and Adult TENTERING MACHINE FEEDER (Insurance denial Primary Care- [address] [place] [address] for (SLT) ) [place] [address] Drive, [address] [place] [address] Allergies No Known Allergiesdocumented as [...] enteral Coronary artery disease tube daily. involving [place] coronary artery of [place] heart without angina pectoris, Cerebrovascular accident (CVA), unspecified mechanism, Essential hypertension atorvastatin 40 mg Take 1 tablet 90 tablet 3 02/06/2020 Active tabletIndications: through enteral Coronary artery disease tube at involving [place] bedtime. coronary artery of [place] heart without angina pectoris, Cerebrovascular accident (CVA), unspecified mechanism, Essential hypertension famotidine 20 mg Take 1 tablet 90 tablet 3 02/06/2020 Active tabletIndications: by mouth 2 Gastroesophageal reflux (two) times disease, unspecified daily. whether esophagitis present lisinopriL 40 mg Take 1 tablet 90 tablet 3 02/06/2020 Active tabletIndications: by mouth daily. Coronary artery disease involving [place] coronary artery of [place] heart without angina pectoris, Essential hypertension Polyethylene [...] with No / Unsure 02/06/2020 10:40 AM SUPERVISOR UNDERWRITING CLERKS someone who was confirmed or suspected to have 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 documented as of this encounter Last Filed Vital Signs Not on filedocumented in this encounter Progress Notes Nikki Blount LMSW - 02/14/2020 10:22 AM CSTSocial Work Note Dope Firer (ROB) consulted CM Department regarding Daughter concerns expressed for patients formula. CM provided DME order process education; suggesting relative contact original DME (formula) provider ([address], [place] F: [phone]). SW spoke with patients Daughter (Elyssa Scanlon p: [phone] ) regarding information received for requesting reorder/refill from DME provider. Daughter verbalized understanding. No new needs identified at present. SW services complete. Nikki Blount LMSW, [facility] Dope Firer- Shooter'S Helper Management [facility]- [facility] ,and [place] Pager: [phone] Em: [email or web address] Nikki Rolon LMSW - 02/14/2020 10:22 AM CSTSocial Work Note Dope Firer (ROB) [facility] Harness Maker-RN (Latisha Marin p: [phone] x [phone]) regarding patients EMS authorization. UM adviced EMS auth approved (5 Round Trips); document faxed to PCP & EMS providers. (02/21/20: Auth# [id number] [facility] p: [phone] f: [phone] Dates approved: 02/21/20-06/13/20 Services approved: [id number] 10 units (round trip) A0425 (No Prior AUTH required for services code when rendered by In-network provider). Nikki Blount LMSW, [facility] Dope Firer- Shooter'S Helper Management [facility]- [facility] [place], [place], [place] ,and [place] Pager: [phone] Em: [email or web address] Nikki Rolon LMSW - 02/14/2020 10:22 AM CSTSocial Work Note Dope Firer (ROB) attempted to contact meat and seafood manager (Dani Barlow p: [phone]) regarding in network EMS provider accepting patient transport needs; out of office message received (OOO 02/21/20-03/26/20; call p: [phone] for covering CM). ROB spoke with Insurance UM (Latisha Marin p: [phone] x [phone]) by phone regarding In Network EMS provider ([facility] p: [phone] F: [phone]) confirming/accepting patient transport needs; requesting assistance regarding AUTH number provided (Auth # [id number] Dates: 02/16-06/11/20). UM confirmed will create Auth; will fax to EMS provider and SW. SW spoke with EMS (Vannessa with [facility] p: [phone] f: [phone]) regarding UM faxing Auth document to patients transports (5). EMS verbalized understanding. SW reviewed Daughters ability to ride. EMS confirmed daughter able to accompany patient during transports. SW spoke with Patients Daughter (Elyssa Scanlon p: [phone]) by phone regarding EMS transports. SW reviewed EMS provider contact information: approval to accompany patient during transports. Daughter verbalized understanding; advised MD office contacted rescheduled 02/22/20 appointment to 03/27/20. Daughter expressed concerns regarding patients formula. SW encouraged daughter to contact clinic requesting assistance/order for DME (formula). Daughter verbalized understanding. SW contacted EMS (Vannessa) providing patient appointment changes. EMS verbalized understanding. No new needs identified at present. SW services complete. Nikki Blount LMSW, [facility] Dope Firer- Shooter'S Helper Management [facility]- [facility] [place], [facility] ,and [place] Pager: [phone] Em: [email or web address] Appointments: Funmilayo Mcmillan Date: 02/22/2020 rescheduled 03/27/20 at 1:30pm Time: 2:30 PM Provider: Nick Denson MD Department: [facility] NEUROLOGY Clinic Clinic Address [address] [place] [address], [address] [place] [address] Funmilayo Mcmillan Date: 02/24/2020 Time: 1:45 PM Visit Type: NEW VISIT (FIRST TIME) [53] Copay: $0.00 Provider: Hossein Stewart MD Department: [facility] Clinic Clinic Address [address], [address] [place] [address] Funmilayo Mcmillan Date: 2020 Time: 11:00 AM Provider: Timmy Haynes MD Department: [facility] COVID RECOVERY Clinic Clinic Address [address] [place] [address], [address] [place] [address] Funmilayo Mcmillan Date: 03/14/2020 Time: 10:00 AM Provider: IR GASTRO TUBE CHANGE (WITH FLUORO) Clinic Clinic Address: [address] [place] [address] Funmilayo Mcmillan Date: 06/11/2020 Time: 2:20PM Provider: Mecca Love MD [facility] CARDIOLOGY Clinic Clinic Address: [address] [place] [address], [address] [address] Nitza Mcclellan LMSW - 02/14/2020 10:22 AM CSTSocial Work Note Lizzie with [facility] contacted TENTERING MACHINE FEEDER back and informed her that the insurance was okay and they are accepting the transports for the patient that were requested. Nitza Kim LMSW, ACM- Ambulatory Dope Firer - Care Management [facility] Clinics / Adult & Pediatrics - [facility] [phone] office RVISOR UNDERWRITING CLERKS Nikki Blount LMSW - 02/14/2020 10:22 AM CSTSocial Work Note Dope Firer (ROB) spoke with In Network EMS provider (Lizzie with [facility] p: [phone] F: [phone]) to arrange transport using auth number provided ([id number] 30 A). EMS requests patient demographics and appointment information for review. SW sent requested information with EMS Auth. Nikki Blount LMSW, [facility] Dope Firer- Shooter'S Helper Management [facility]- [facility] ,and [place] Pager: [phone] Em: [email or web address] Appointments: Funmilayo Mcmillan Date: 02/22/2020 Time: 2:30 PM Provider: Nick Denson MD Department: [facility] NEUROLOGY Clinic Clinic Address [address] [place] [address], [address] [place] [address] Funmilayo Mcmillan Date: 02/24/2020 Time: 1:45 PM Visit Type: NEW VISIT (FIRST TIME) [53] Copay: $0.00 Provider: Hossein Stewart MD Department: [facility] Clinic Clinic Address [place] [id number] [facility], [address] [place] [address] Funmilayo Mcmillan Date: 2020 Time: 11:00 AM Provider: Timmy Haynes MD Department: [facility] COVID RECOVERY Clinic Clinic Address [address] [place] [address], 3[address] [place] [address] Funmilayo Mcmillan Date: 03/14/2020 Time: 10:00 AM Provider: SHITAL GASTRO TUBE CHANGE (WITH FLUORO) Clinic Clinic Address: [address] [place] [address] [place] [address] Funmilayo Mcmillan Date: 06/11/2020 Time: 2:20PM Provider: Mecca Love MD [facility] C[facility]IOLOG[facility] Clinic Clinic Address: [address] [place] [address], [address] [place] [address] Nikki Rolon LMSW - 02/14/2020 10:22 AM CSTSocial Work Note Dope Firer (SW) communicated with Proof Reader (Dani Barlow p:[phone]) regarding HH and EMS. CM advised auth received: Auth # [id number] A Dates: 02/17/20-06/11/20 CM provided In network providers ([facility] p: [phone] and [facility] (Vannessa p: [phone]); advising [facility] EMS in out of network. CM advised HH approved for OT/SN; researching SLT. SW spoke with HH provider (Osmar with [facility] p: [phone]) regarding patients services. HH confirmed patient is receiving SN, OT, SLT (*admit today/auth received). PT discharged (02/07/20-met goals). ROB contacted [facility] EMS providers to attempt and arrange transport using auth number provided ([id number] 00 30 A): [facility] p: [phone] -advisedwill need to consult Plaster Tender;will call back. [facility] (Vannessa p: [phone]) ran patients benefits; advised "Pt only has halfway carebenefits/prior auth required through [facility]". ROB communicated information received to [facility] CM; advising forms submitted (Soto and TM) to [place] dept yesterday (02/17/20); requesting assistance. Nikki Blount LMSW, [facility] Dope Firer- Shooter'S Helper Management [facility] Pager: [phone] Em: [email or web address] Nikki Rolon LMSW - 02/14/2020 10:22 AM CSTSocial Work Note Dope Firer (ROB) attempted to contact Patients Proof Reader (Dani Barlow p: [phone] with [place] [employer]) by phone regarding EMS auth request for additional units; left message. SW communicated with EMS (Madison Potter with [facility] p: [phone]/ [phone]/f: [phone]) regarding EMS auth request for additional units. EMS denies receipt of auth; unable to scheduled transport until auth received. SW spoke with patients daughter (Elyssa Scanlon p: [phone]) by phone regarding additional AUTH unitsfor appointments added AFTER initial auth provided. Daughter reports appointment rescheduled (02/24/20 at 1:45pm). SW reviewed Auth process; will provide updates upon receipt. Daughter verbalized understanding. SW reviewed manager farm contact information; encouraging daughter to contact for Star Waiver program assessment, HH (OT), and DME needs. Daughter verbalized understanding; will contact today. Daughter requests information for DME (formula). SW encouraged Daughter to contact clinic for needs; DME assistance provided by clinic staff. Daughter verbalized understanding. No new needs identifiedat present. SW will provided updates to EMS, Daughter upon receipt. Nikki Blount LMSW, [facility] Dope Firer- Shooter'S Helper Management [facility]- [facility] Pager: [phone] Em: [email or web address] Nikki Rolon LMSW - 02/14/2020 10:22 AM CSTSocial Work Note Dope Firer (ROB) spoke with patients sales representative health insurance (Dani Barlow p: [phone]) by phone regarding EMS auth request for additional units for appointments added AFTER initial request/auth received. CM advised will consult Plaster Tender and Director regarding patient needs; provide updates upon receipt. SW attempted to contact [facility] Department (Diana Marin p: [phone] f" [phone]) regarding additional AUTH units for appointments added AFTER initial auth provided; left message. ROB spoke with [facility] Dept (Mandy p: [phone]) regarding additional AUTH units for appointments added AFTER initial auth provided. confirmed receipt of documents/forms; marked expedited; have up to 72 hours to process ~ Thursday02/19/20. sent email to RN & Plaster Tender for Urgent assistance. Uncertain if auth will be received by tomorrow/may have to reschedule appointment. ROB provided updates receive to [facility] provider ([facility] P: [phone]). ROB continue following up and call/email with updates. Nikki Blount LMSW, [facility] Dope Firer- Shooter'S Helper Management [facility] Pager: [phone] Em: [email or web address] Nikki Rolon LMSW - 02/14/2020 10:22 AM CSTSocial Work Note Dope Firer (ROB) spoke with patients sales representative health insurance (Dani Yinori p: [phone]) by phone regarding EMS auth request for additional appointment added after initial request/auth received.CM advised to complete/submit [facility] prior auth request form and [employer] [place] [employer] [facility] prior Auth Request (Form F 74352) for authorization completion to Patient's insurance provider ([place] [employer] p: [phone] f: [phone]). ROB competed Ins and EMS forms; provided toPCP for completion/return. No new needs identified at present. ROB services complete. Nikki Blount LMSW, [facility] Dope Firer- Shooter'S Helper Management [facility] Pager: [phone] Em: [email or web address] Nikki Rolon LMSW - 02/14/2020 10:22 AM CSTSocial Work Note Dope Firer (ROB)spoke with [employer] Plaster Tender (Dani Barlow p: [phone]) regarding Additional units for EMS auth submitted (01/13/20; Auth# [id number] [facility] p: [phone] f: [phone] Dates approved: 01/23/20-06/13/20 Services approved: [id number] 8 [...] medical team; services complete. Nikki Blount LMSW, [facility] Dope Firer- Shooter'S Helper Management [facility]- [facility] ,and [place] Pager: [phone] Em: [email or web address] Nikki Rolon LMSW - 02/14/2020 10:22 AM CSTSocial Work Note Dope Firer (ROB) attempted to contact Proof Reader (Dani Kassidynori p: [phone]) regarding assigned CM contact information, additional EMS trips and Home Health services vs OP (SLT); leftmessage. SW will continue attempts to contact. Dope Firer (ROB) contacted EMS provider (Shila Sousa with [facility] p: [phone] Em: Dispatch: [phone] ) to coordinate/schedule additional EMS transports for new appointments (02/17/20, 02/22/20, and 03/14/20). EMS advised new PCS form will be required 03/16/2020. No new needs identified at present. ROB provideddates, address, clinic contact information fr scheduled appoitnment; services complete. Nikki Blount LMSW, [facility] Dope Firer- Shooter'S Helper Management [facility] Pager: [phone] Em: [email or web address] Nikki Rolon LMSW - 02/14/2020 10:22 AM CSTSocial Work Note Dope Firer (ROB) received call from Proof Reader (Dani Barlow p: [phone]) regarding Home Health services vs OP (SLT); CM Plaster Tender. pending/reviewing. CM advised sending PCP Star Plus Waiver Program packet to complete/return (Provider). ROB provided updates to medical team. Nikki Blount LMSW, [facility] Dope Firer- Shooter'S Helper Management [facility] Pager: [phone] Em: [email or web address] Nikki Rolon LMSW - 02/14/2020 10:22 AM CSTSocial Work Note Dope Firer (ROB) received consult Insurance denial for HH (SLT). ROB spoke with a [place] [employer] high risk case manager (Dani Benson p: [phone]) regarding patient needs; insurance barriers. CM reviewed patients records; advised will submit concerns to Ins CM Plaster Tender; requesting evaluation for Star Plus Waiver Program and expedited Provider services. CM explained will contact patients daughter to review HH- SLT appeal process. SW attempted to contact patients Daughter (Elyssa Scanlon p: [phone]) to provide Ins CM updates; left message. ROB will continue attempts to contact. Nikki Blount LMSW, [facility] Dope Firer- Shooter'S Helper Management [facility] Pager: [phone] Em: [email or web address] RVISOR UNDERWRITING CLERKS documented in this encounter Plan of Treatment Date Type Specialty Care Team Description 02/24/2020 Office Visit Thoracic Surgery Hossein Stewart MD [address] [place], [place] [address] 2020 Office Visit Pulmonary Disease Bud Haynes MD [address] [address] [phone] 03/14/2020 Appointment Radiology Renan Marcial MD [address] [place], [place] [address] 03/27/2020 Office Visit Neurology Nick Denson MD [address] [place] [address] 06/11/2020 Office Visit Cardiology Daya Love M D [address] [facility] [address] [place] [address] 15 Health Maintenance Due Date Last Done [...] Problems Progress Quit using Tobacco Use No [place], tobacco Roberta (cigarettes, smokeless, etc) documented as of this encounter Results Not on filedocumented in this encounter Additional Health Concerns Infection Onset Date Last Indicated Resolved Time 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
--- OUTSIDE RECORDS SUMMARY | 2020-03-10 03:59 | XMS REPORT | Summary of Care ---
:1960 Author Organization [facility] - [facility] Address [address] [place] [address] Care Team Providers Name Role Phone Gatito Chauhan MD Primary Care Provider Zeke Márquez Insurance Hmo Reason for Visit Reason Comments Social Work Insurance denial for (SLT ) Encounter Details Date Type Department Care Team Description 02/14/2020 Patient Outreach [facility] Nikki Blount, Social W ork Pediatric and Adult COMB MACHINE OPERATOR (Insurance denial Primary Care- [address] [place] [address] for (SLT) ) [place] [address] Drive, [address] [place] [address] Allergies No Known Allergiesdocumented as [...] enteral Coronary artery disease tube daily. involving [place] coronary artery of [place] heart without angina pectoris, Cerebrovascular accident (CVA), unspecified mechanism, Essential hypertension atorvastatin 40 mg Take 1 tablet 90 tablet 3 02/06/2020 Active tabletIndications: through enteral Coronary artery disease tube at involving [place] bedtime. coronary artery of [place] heart without angina pectoris, Cerebrovascular accident (CVA), unspecified mechanism, Essential hypertension famotidine 20 mg Take 1 tablet 90 tablet 3 02/06/2020 Active tabletIndications: by mouth 2 Gastroesophageal reflux (two) times disease, unspecified daily. whether esophagitis present lisinopriL 40 mg Take 1 tablet 90 tablet 3 02/06/2020 Active tabletIndications: by mouth daily. Coronary artery disease involving [place] indians[place] coronary artery of [place] heart without angina pectoris, Essential hypertension Polyethylene [...] with No / Unsure 02/06/2020 10:40 AM IRONMOLDER someone who was confirmed or suspected to have 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 documented as of this encounter Last Filed Vital Signs Not on filedocumented in this encounter Progress Notes Nikki Blount LMSW - 02/14/2020 10:22 AM CSTSocial Work Note Nurse Care Manager (ROB) attempted to contact manager of disaster recovery (Dani Barlow p: [phone]) regarding in network EMS provider accepting patient transport needs; out of office message received (OOO 02/21/20-03/26/20; call p: [phone] for covering CM). ROB spoke with Insurance UM (Latisha Marin p: [phone]) by phone regarding In Network EMS provider ([facility] p: [phone] F: [phone]) confirming/accepting patient transport needs; requesting assistance regarding AUTH number provided (Auth # [id number] A Dates: 02/16-06/11/20). UM confirmed will create Auth; will fax to EMS provider and SW. ROB spoke with EMS (Vannessa with [facility] p: [phone] f: [phone]) regarding UM faxing Auth document to patients transports (5). EMS verbalized understanding. SW reviewed Daughters ability to ride. EMS confirmed daughter able to accompany patient during transports. SW spoke with Patients Daughter (Elyssa Scanlon p: [phone]) by phone regarding EMS transports. SW reviewed EMS provider contact information: approval to accompany patient during transports. Daughter verbalized understanding; advised MD office contacted rescheduled 02/22/20 appointment to 03/27/20. SW contacted EMS (Vannessa) providing patient appointment changes. EMS verbalized understanding. No new needs identified at present. SW services complete. Nikki Blount LMSW, [facility] Nurse Care Manager- Senior Scientist Management [facility]- [facility] Based Clinics [place], [facility] ,and [place] Pager: [phone] Em: [email or web address] Appointments: Funmilayo Mcmillan Date: 02/22/2020 rescheduled 03/27/20 at 1:30pm Time: 2:30 PM Provider: Nick Denson MD Department: [facility] Clinic Clinic Address [address] [place] [address], [address] [place] [address] Funmilayo Mcmillan Date: 02/24/2020 Time: 1:45 PM Visit Type: NEW VISIT (FIRST TIME) [53] Copay: $0.00 Provider: Hossein Stewart MD Department: [facility] Clinic Clinic Address [address], [address] [place], [place] [id number] Funmilayo Mcmillan Date: 2020 Time: 11:00 AM Provider: Timmy Haynes MD Department: [facility] COVID RECOVERY Clinic Clinic Address [address] [place] [address], [address] [place] [address] Funmilayo Mcmillan Date: 03/14/2020 Time: 10:00 AM Provider: IR GASTRO TUBE CHANGE (WITH FLUORO) Clinic Clinic Address: [address] [place] [address] Funmilayo Mcmillan Date: 06/11/2020 Time: 2:20PM Provider: Mecca Love MD [facility] Clinic Clinic Address: [address] [place] [address], [address] [place] [id number] Nitza Mcclellan LMSW - 02/14/2020 10:22 AM CSTSocial Work Note Lizzie with [facility] contacted COMB MACHINE OPERATOR back and informed her that the insurance was okay and they are accepting the transports for the patient that were requested. Nitza Kim LMSW, [facility]- Ambulatory Nurse Care Manager - Care Management [facility] / Adult & Pediatrics - [facility] / [facility] [phone] office MOLDER Nikki Blount LMSW - 02/14/2020 10:22 AM CSTSocial Work Note Nurse Care Manager (ROB) spoke with In Network EMS provider (Lizzie with [facility] p: [phone] F: [phone]) to arrange transport using auth number provided ([id number] 30 A). EMS requests patient demographics and appointment information for review. SW sent requested information with EMS Auth. Nikki Blount LMSW, [facility] Nurse Care Manager- Senior Scientist Management [facility]- Community Based [facility] ,and [place] Pager: [phone] Em: [email or web address] Appointments: Funmilayo Mcmillan Date: 02/22/2020 Time: 2:30 PM Provider: Nick Denson MD Department: [facility] Clinic Clinic Address [address] [place] [address], [address] [place] [address] Funmilayo Mcmillan Date: 02/24/2020 Time: 1:45 PM Visit Type: NEW VISIT (FIRST TIME) [53] Copay: $0.00 Provider: Hossein Stewart MD Department: [facility] Clinic Clinic Address [facility] [address] [place] [address], [address] [place] [address] Funmilayo Mcmillan Date: 2020 Time: 11:00 AM Provider: Timmy Haynes MD Department: [facility] COVID RECOVERY Clinic Clinic Address [address] [place] [address], [address] [place], [place] [id number] Funmilayo Mcmillan Date: 03/14/2020 Time: 10:00 AM Provider: SHITAL GASTRO TUBE CHANGE (WITH FLUORO) Clinic Clinic Address: [address] [place] [address] [place] [address] Funmilayo Mcmillan Date: 06/11/2020 Time: 2:20PM Provider: Mecca Love MD [facility] Clinic Clinic Address: [address] [place] [address], [address] [place] [address] Nikki Rolon LMSW - 02/14/2020 10:22 AM CSTSocial Work Note Nurse Care Manager (ROB) communicated with Naval Engineer (Dani Barlow p:[phone]) regarding HH and EMS. CM advised auth received: Auth # [id number] A Dates: 02/17/20-06/11/20 CM provided In [facility] providers ([facility] p: [phone] and [facility] (Vannessa p: [phone]); advising [facility] EMS in out of network. CM advised HH approved for OT/SN; researching SLT. ROB spoke with HH provider (Osmar with [facility] p: [phone]) regarding patients services. HH confirmed patient is receiving SN, OT, SLT (*admit today/auth received). PT discharged (02/07/20-met goals). ROB contacted [facility] EMS providers to attempt and arrange transport using auth number provided ([id number] 30 A): [facility] p: [phone] -advisedwill need to consult Nuclear Monitoring Technician;will call back. [facility] (Vannessa p: [phone]) ran patients benefits; advised "Pt only has long-term carebenefits/prior auth required through [facility]". ROB communicated information received to [facility] CM; advising forms submitted ([place] and [facility]) to [place] dept yesterday (02/17/20); requesting assistance. Nikki Blount LMSW, [facility] Nurse Care Manager- Senior Scientist Management [facility] Pager: [phone] Em: [email or web address] Nikki Rolon LMSW - 02/14/2020 10:22 AM CSTSocial Work Note Nurse Care Manager (SW) attempted to contact Patients Naval Engineer (Dani Barlow p: [phone] with [place] [employer]) by phone regarding EMS auth request for additional units; left message. SW communicated with EMS (Madison Potter with [facility] p: [phone] Ext [phone]/ [phone]/f: [phone]) regarding EMS auth request for additional units. EMS denies receipt of auth; unable to scheduled transport until auth received. SW spoke with patients daughter (Elyssa Scanlon p: [phone]) by phone regarding additional AUTH unitsfor appointments added AFTER initial auth provided. Daughter reports appointment rescheduled (02/24/20 at 1:45pm). SW reviewed Auth process; will provide updates upon receipt. Daughter verbalized understanding. SW reviewed warranty manager contact information; encouraging daughter to contact for Star Waiver program assessment, HH (OT), and DME needs. Daughter verbalized understanding; will contact today. Daughter requests information for DME (formula). SW encouraged Daughter to contact clinic for needs; DME assistance provided by clinic staff. Daughter verbalized understanding. No new needs identifiedat present. SW will provided updates to EMS, Daughter upon receipt. Nikki Blount LMSW, [facility] Nurse Care Manager- Senior Scientist Management [facility] Pager: [phone] Em: [email or web address] Nikki Rolon LMSW - 02/14/2020 10:22 AM CSTSocial Work Note Nurse Care Manager (ROB) spoke with patients insurance legal assistant (Dani Barlow p: [phone]) by phone regarding EMS auth request for additional units for appointments added AFTER initial request/auth received. CM advised will consult Nuclear Monitoring Technician and Director regarding patient needs; provide updates upon receipt. SW attempted to contact [facility] Department (Diana Marin p: [phone] f" [phone]) regarding additional AUTH units for appointments added AFTER initial auth provided; left message. ROB spoke with [facility] Dept (Mandy p: [phone]) regarding additional AUTH units for appointments added AFTER initial auth provided. confirmed receipt of documents/forms; marked expedited; have up to 72 hours to process ~ Thursday02/19/20. sent email to RN & Nuclear Monitoring Technician for Urgent assistance. Uncertain if auth will be received by tomorrow/may have to reschedule appointment. ROB provided updates receive to EMS provider ([facility] P: [phone]). ROB continue following up and call/email with updates. Nikki Blount LMSW, [facility] Nurse Care Manager- Senior Scientist Management [facility] Pager: [phone] Em: [email or web address] Nikki Rolon LMSW - 02/14/2020 10:22 AM CSTSocial Work Note Nurse Care Manager (ROB) spoke with patients insurance legal assistant (Dani Barlow p: [phone]) by phone regarding EMS auth request for additional appointment added after initial request/auth received.CM advised to complete/submit [facility] prior auth request form and [employer] [place] Medicaid [facility] prior Auth Request (Form F 01371) for authorization completion to Patient's insurance provider ([facility] p: [phone] f: [phone]). ROB competed Ins and EMS forms; provided toPCP for completion/return. No new needs identified at present. ROB services complete. Nikki Blount LMSW, [facility] Nurse Care Manager- Senior Scientist Management [facility] Pager: [phone] Em: [email or web address] Nikki Rolon LMSW - 02/14/2020 10:22 AM CSTSocial Work Note Nurse Care Manager (ROB)spoke with [employer] Poultry Veterinarian (Dani Barlow p: [phone]) regarding Additional units for EMS auth submitted (01/13/20; Auth# [id number] [facility] p: [phone] f: [phone] Dates approved: 01/23/20-06/13/20 Services approved: [id number] [...] medical team; services complete. Nikki Blount LMSW, [facility] Nurse Care Manager- Senior Scientist Management [facility]- Community Based Clinics [facility] ,and [place] Pager: [phone] Em: [email or web address] Nikki Rolon LMSW - 02/14/2020 10:22 AM CSTSocial Work Note Nurse Care Manager (ROB) attempted to contact Naval Engineer (Dani Barlow p: [phone]) regarding assigned CM contact information, additional EMS trips and Home Health services vs OP (SLT); leftmessage. ROB will continue attempts to contact. Nurse Care Manager (ROB) contacted EMS provider (Shila Sousa with [facility] p: [phone] Em: [email or web address]: [phone] ) to coordinate/schedule additional EMS transports for new appointments (02/17/20, 02/22/20, and 03/14/20). EMS advised new PCS form will be required 03/16/2020. No new needs identified at present. ROB provideddates, address, clinic contact information fr scheduled appoitnment; services complete. Nikki Blount LMSW, [facility] Nurse Care Manager- Senior Scientist Management [facility] Pager: [phone] Em: [email or web address] Nikki Rolon LMSW - 02/14/2020 10:22 AM CSTSocial Work Note Nurse Care Manager (ROB) received call from Naval Engineer (Dani Barlow p: [phone]) regarding Home Health services vs OP (SLT); CM Nuclear Monitoring Technician. pending/reviewing. CM advised sending PCP Star Plus Waiver Program packet to complete/return (Provider). SW provided updates to medical team. Nikki Blount LMSW, [facility] Nurse Care Manager- Senior Scientist Management [facility] Pager: [phone] Em: [email or web address] Nikki Rolon LMSW - 02/14/2020 10:22 AM CSTSocial Work Note Nurse Care Manager (ROB) received consult Insurance denial for HH (SLT). SW spoke with a [place] [employer] child welfare caseworker (Dani Benson p: [phone]) regarding patient needs; insurance barriers. CM reviewed patients records; advised will submit concerns to Ins CM Nuclear Monitoring Technician; requesting evaluation for Star Plus Waiver Program and expedited Provider services. CM explained will contact patients daughter to review HH- SLT appeal process. SW attempted to contact patients Daughter (Elyssa Scanlon p: [phone]) to provide Ins CM updates; left message. SW will continue attempts to contact. Nikki Blount LMSW, [facility] Nurse Care Manager- Senior Scientist Management [facility] Pager: [phone] Em: [email or web address] MOLDER documented in this encounter Plan of Treatment Date Type Specialty Care Team Description 02/24/2020 Office Visit Thoracic Surgery Hossein Stewart MD [address] [place], [place] [phone] Office Visit Pulmonary Disease Bud Haynes MD [address] [address] [phone] 03/14/2020 Appointment Radiology Renan Marcial MD [address] [place], [place] [address] 03/27/2020 Office Visit Neurology Nick Denson MD [address] [place], [place] [address] 06/11/2020 Office Visit Cardiology Daya Love M D [address] [place] [address] [place] [address] [phone] Health Maintenance Due Date Last Done Comments [...] / Subscriber ID Effective Phone Address [facility] Dates CHARLES SOTO [id number] 2015-Pres [address] B[address] Medic aid HEALTHCARE - HEALTHCARE [place] [id number] MANAGED MEDICAID [place], [place]ICAID [place] documented as of this encounter
--- OUTSIDE RECORDS SUMMARY | 2020-03-10 03:59 | XMS REPORT | Summary of Care ---
:1960 Author Organization [facility] - [facility] Address [address] [place] [address] Care Team Providers Name Role Phone Gatito Chauhan MD Primary Care Provider Zeke Márquez Insurance Hmo Reason for Visit Reason Comments DME Encounter Details Date Type Department Care Team Description 02/23/2020 Telephone [facility] Pediatric and Janiya Chauhan DME Adult Primary Care- MD [place] [address] [place] [address] [address] [facility] [address] [place] [address] [place] [address] [phone] Allergies No Known Allergiesdocumented as of this [...] enteral Coronary artery disease tube daily. involving [place] coronary artery of [place] heart without angina pectoris, Cerebrovascular accident (CVA), unspecified mechanism, Essential hypertension atorvastatin 40 mg Take 1 tablet 90 tablet 3 02/06/2020 Active tabletIndications: through enteral Coronary artery disease tube at involving [place] bedtime. coronary artery of [place] heart without angina pectoris, Cerebrovascular accident (CVA), unspecified mechanism, Essential hypertension famotidine 20 mg Take 1 tablet 90 tablet 3 02/06/2020 Active tabletIndications: by mouth 2 Gastroesophageal reflux (two) times disease, unspecified daily. whether esophagitis present lisinopriL 40 mg Take 1 tablet 90 tablet 3 02/06/2020 Active tabletIndications: by mouth daily. Coronary artery disease involving [place] coronary artery of [place] heart without angina pectoris, Essential hypertension Polyethylene [...] with No / Unsure 02/06/2020 10:40 AM REPLENISHER someone who was confirmed or suspected to have 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 documented as of this encounter Last Filed Vital Signs Not on filedocumented in this encounter Miscellaneous Notes Telephone Encounter - Flor Gross - 02/23/2020 3:07 PM CSTReceived fax from Home care Delivered requesting Cath w / Drainage 2 way latex and Sterile Gauze Non waterproof tape. documented in this encounter Plan of Treatment Date Type Specialty Care Team Description 02/24/2020 Office Visit Thoracic Surgery Hossein Stewart MD [address] [place] [phone] 03/14/2020 Appointment Radiology Renan Marcial MD [address] [place] [address] 03/27/2020 Office Visit Neurology Nick Denson MD [address] [place] [address] 555 06/07/2020 Office Visit Pulmonary Disease Bo Mejia MD [address] [facility] [address] [place] [address] 06/11/2020 Office Visit Cardiology Daya Love M D [address] [place] [address] [place], [place] [address] [phone] Health Maintenance Due Date Last Done Comments [...] Subscriber ID Effective Phone Address T [facility] Group Dates ANDREAZENON ANDREA [id number] 2015-Pres [address] Medic aid HEALTHCARE [place]ARE [place] [id number] MANAGED MEDICAID [place], [place] documented as of this encounter
--- OUTSIDE RECORDS SUMMARY | 2020-03-10 04:00 | XMS REPORT | Summary of Care ---
:1960 Author Organization [facility] - [facility] Address [address] [place] [address] Care Team Providers Name Role Phone Gatito Chauhan MD Primary Care Provider Zeke Márquez Insurance Hmo Reason for Visit Reason Comments Social Work Insurance denial for (SLT ) Encounter Details Date Type Department Care Team Description 02/14/2020 Patient Outreach [facility] Nikki Blount, Social W ork Pediatric and Adult CASTER HELPER (Insurance denial Primary Care- [address] [place] [address] for (SLT) ) [place] [address] Drive, [address] [place] [address] Allergies No Known Allergiesdocumented as of this encounter (statuses as of 02/28/2020) Medications Medication Sig Dispensed Refills Start Date [...] enteral Coronary artery disease tube daily. involving [place]-apache coronary artery of [place]apache heart without angina pectoris, Cerebrovascular accident (CVA), unspecified mechanism, Essential hypertension atorvastatin 40 mg Take 1 tablet 90 tablet 3 02/06/2020 Active tabletIndications: through enteral Coronary artery disease tube at involving [place]-apache bedtime. coronary artery of [place]-apache heart without angina pectoris, Cerebrovascular accident (CVA), unspecified mechanism, Essential hypertension famotidine 20 mg Take 1 tablet 90 tablet 3 02/06/2020 Active tabletIndications: by mouth 2 Gastroesophageal reflux (two) times disease, unspecified daily. whether esophagitis present lisinopriL 40 mg Take 1 tablet 90 tablet 3 02/06/2020 Active tabletIndications: by mouth daily. Coronary artery disease involving [place]apai-apache coronary artery of [place]ap[place]-apache heart without angina pectoris, Essential hypertension Polyethylene Glycol 3350 Take 1 Packet 180 Packet 3 02/06/2020 Active 17 gram through enteral powderIndications: tube 2 (two) Constipation, times daily. unspecified constipation type risperiDONE 0.5 mg Take 1 tablet 180 tablet 3 02/06/2020 Active tabletIndications: through enteral Schizophrenia, tube 2 (two) unspecified type times daily. 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 documented as of this encounter Last Filed Vital Signs Not on filedocumented in this encounter Progress Notes Nikki Blount LMSW - 02/14/2020 10:22 AM CSTSocial Work Note Rn Cardiology (ROB) faxed patient current appointment [place] [phone]: [phone]) regarding Patients transports (03/02/20-06/13/20). SW requested EMS contact patients Daughter (Elyssa Scanlon p: [phone]) prior to EVERY scheduled Transports to confirm/review appointment changes. Nikki Blount LMSW, [facility] Rn Cardiology- Label Cutter Management [facility]- Community Based Clinics [facility] ,and [place] Pager: [phone] Em: [email or web address] Nikki Rolon LMSW - 02/14/2020 10:22 AM CSTSocial Work Note Rn Cardiology (ROB) [phone]: [phone]) regarding Patients transport (02/24/20- scheduled appointment cancelled) appointment changes. EMS expressed frustration regarding patient appointment changes; no contact. SW reviewed Daughters ability to contact EMS with any appointment changes. EMS verbalized understanding. SW spoke with Patients Daughter (Elyssa Scanlon p: [phone]) by phone regarding EMS transports/contact with any/all appointment rescheduling. Daughter verbalized understanding. SW reviewed EMS providercontact information. Daughter verbalized understanding; expressing concerned regarding EMS staff behaviors. SW explained will contact [facility] department to share concerns/experiences. Daughter verbalized understanding. No new needs identified at present. ROB services complete. Nikki Blount LMSW, [facility] Rn Cardiology- Label Cutter Management [facility] Pager: [phone] Em: [email or web address] Nikki Rolon LMSW - 02/14/2020 10:22 AM CSTSocial Work Note Rn Cardiology (ROB) consulted CM Department regarding Daughter concerns expressed for patients formula. CM provided DME order process education; suggesting relative contact original DME (formula) provider ([address], [place] F: [phone]). ROB spoke with patients Daughter (Elyssa Scanlon p: [phone] ) regarding information received for requesting reorder/refill from DME provider. Daughter verbalized understanding. No new needs identified at present. ROB services complete. Nikki Blount LMSW, [facility] Rn Cardiology- Label Cutter Management [facility] Pager: [phone] Em: [email or web address] Nikki Rolon LMSW - 02/14/2020 10:22 AM CSTSocial Work Note Rn Cardiology (ROB) received message from [employer] Coiled Tubing Supervisor-RN (Latisha Marin p: [phone] x [phone]) regarding patients EMS authorization. adviced EMS auth approved (5 Round Trips); document faxed to PCP & EMS providers. (02/21/20: Auth# [id number] [facility] p: [phone] f: [phone] Dates approved: 02/21/20-3/31/21 Services approved: A0428 10 units (round trip) A0425 (No Prior AUTH required for services code when rendered by In-network provider). Nikki Blount LMSW, CCM Rn Cardiology- Label Cutter Management [facility]- [facility] Based Clinics [facility], [place] [place] ,and [place] Pager: [phone] Em: [email or web address] Nikki Rolon LMSW - 02/14/2020 10:22 AM CSTSocial Work Note Rn Cardiology (SW) attempted to contact administrative manager (Dani Barlow p: [phone]) regarding in network EMS provider accepting patient transport needs; out of office message received (OOO 02/21/20-03/26/20; call p: [phone] for covering CM). SW spoke with Insurance UM (Latisha Marin p: [phone] x [phone]) by phone regarding In Network EMS provider ([facility] p: [phone] F: [phone]) confirming/accepting patient transport needs; requesting assistance regarding AUTH number provided (Auth # [id number] 30 A Dates: 02/16-06/11/20). UM confirmed will create Auth; will fax to EMS provider and SW. SW spoke with EMS (Vannessa with [facility] p: [phone] f: [phone]) regarding UM faxing Auth document to patients transports (5). EMS verbalized understanding. SW reviewed Daughters ability to ride. EMS confirmed daughter able to accompany patient during transports. SW spoke with Patients Daughter (Elyssa Scanlon p: [phone]) by phone regarding EMS transports. SW reviewed [...] SW services complete. Nikki Blount LMSW, CCM Rn Cardiology- Label Cutter Management [facility]- Community Based Clinics [facility], [facility] ,and [place] Pager: [phone] Em: [email or web address] Appointments: Funmilayo Mcmillan Date: 02/22/2020 rescheduled 03/27/20 at 1:30pm Time: 2:30 PM Provider: Nick Denson MD Department: [facility] NEUROLOGY Clinic Clinic Address [address] [place] [address] Funmilayo Mcmillan Date: 02/24/2020 Time: 1:45 PM Visit Type: NEW VISIT (FIRST TIME) [53] Copay: $0.00 Provider: Hossein Stewart MD Department: [facility]ACIC SURGERY[facility] Clinic Clinic Address [address], [address] [place] [address] Funmilayo Mcmillan Date: 2020 Time: 11:00 AM Provider: Timmy Haynes MD Department: [facility] COVID RECOVERY Clinic Clinic Address [address] [place], [place] [address] Funmilayo Mcmillan Date: 03/14/2020 Time: 10:00 AM Provider: IR GASTRO TUBE CHANGE (WITH FLUORO) Clinic Clinic Address: [address] [place] [address] Funmilayo Mcmillan Date: 06/11/2020 Time: 2:20PM Provider: Mecca Love MD [facility] CARDIOLOGY Clinic Clinic Address: [address] [place] [address], [address] [address] Nitza Mcclellan LMSW - 02/14/2020 10:22 AM CSTSocial Work Note [facility] contacted CASTER HELPER back and informed her that the insurance was okay and they are accepting the transports for the patient that were requested. Nitza Kim LMSW, [facility]- Ambulatory Rn Cardiology - Care Management [facility] Clinics / Adult & Pediatrics - [facility] / [facility] and [place] [phone] office L CUTTER Nikki Blount LMSW - 02/14/2020 10:22 AM CSTSocial Work Note Rn Cardiology (ROB) spoke with In Network EMS provider ([facility]izzie with [facility] p: [phone] F: [phone]) to arrange transport using auth number provided ([id number] 30 A). EMS requests patient demographics and appointment information for review. SW sent requested information with EMS Auth. Nikki Blount LMSW, [facility] Rn Cardiology- Label Cutter Management [facility]- [facility] ,and [place] Pager: [phone] Em: [email or web address] Appointments: Funmilayo Mcmillan Date: 02/22/2020 Time: 2:30 PM Provider: Nick Denson MD Department: [facility] Clinic Clinic Address [address] [place] [address], [address] [place] [address] Funmilayo Mcmillan Date: 02/24/2020 Time: 1:45 PM Visit Type: NEW VISIT (FIRST TIME) [53] Copay: $0.00 Provider: Hossein Stewart MD Department: [facility] Clinic Clinic Address [facility] [address], [address] [place] [address] Funmilayo Mcmillan Date: 2020 Time: 11:00 AM Provider: Timmy Haynes MD Department: [facility] COVID RECOVERY Clinic Clinic Address [address] [place] [address] [place] [address] Funmilayo Mcmillan Date: 03/14/2020 Time: 10:00 AM Provider: SHITAL GASTRO TUBE CHANGE (WITH FLUORO) Clinic Clinic Address: [address] [place] [address] [place] [address] Funmilayo Mcmillan Date: 06/11/2020 Time: 2:20PM Provider: Mecca Love MD [facility] CARDIOLOGY Clinic Clinic Address: [address] [place] [address], [address] [place] [address] Nikki Rolon LMSW - 02/14/2020 10:22 AM CSTSocial Work Note Rn Cardiology (ROB) communicated with Operator Engineer (Dani Barlow p:[phone]) regarding HH and EMS. CM advised auth received: Auth # [id number] 30 A Dates: 02/17/20-06/11/20 CM provided In network providers ([facility] p: [phone] and [facility] (Vannessa p: [phone]); advising [facility] EMS in out of network. CM advised HH approved for OT/SN; researching SLT. ROB spoke with HH provider (Osmar with [facility] p: [phone]) regarding patients services. HH confirmed patient is receiving SN, OT, SLT (*admit today/auth received). PT discharged (02/07/20-met goals). ROB contacted [facility] EMS providers to attempt and arrange transport using auth number provided ([id number] 00 30 A): [facility] p: [phone] -advisedwill need to consult Gardening Manager;will call back. [facility] (Vannessa p: [phone]) ran patients benefits; advised "Pt only has penitentiary carebenefits/prior auth required through [facility]". ROB communicated information received to [facility] CM; advising forms submitted (Soto and TM) to [place] dept yesterday (02/17/20); requesting assistance. Nikki Blount LMSW, [facility] Rn Cardiology- Label Cutter Management [facility] Pager: [phone] Em: [email or web address] Nikki Rolon LMSW - 02/14/2020 10:22 AM CSTSocial Work Note Rn Cardiology (SW) attempted to contact Patients Operator Engineer (Dani Barlow p: [phone] with [employer]) by phone regarding EMS auth request for additional units; left message. SW communicated with EMS (Madison Tariq with [facility] p: [phone] Ext [phone]/ [phone]/f: [phone]) regarding EMS auth request for additional units. EMS denies receipt of auth; unable to scheduled transport until auth received. SW spoke with patients daughter (Elyssa Scanlon p: [phone]) by phone regarding additional AUTH unitsfor appointments added AFTER initial auth provided. Daughter reports appointment rescheduled (02/24/20 at 1:45pm). SW reviewed Auth process; will provide updates upon receipt. Daughter verbalized understanding. SW reviewed research laboratory manager contact information; encouraging daughter to contact for Star Waiver program assessment, HH (OT), and DME needs. Daughter verbalized understanding; will contact today. Daughter requests information for DME (formula). SW encouraged Daughter to contact clinic for needs; DME assistance provided by clinic staff. Daughter verbalized understanding. No new needs identifiedat present. SW will provided updates to EMS, Daughter upon receipt. Nikki Blount LMSW, [facility] Rn Cardiology- Label Cutter Management [facility] Pager: [phone] Em: [email or web address] Nikki Rolon LMSW - 02/14/2020 10:22 AM CSTSocial Work Note Rn Cardiology (ROB) spoke with patients insurance defense attorney (Dani Barlow p: [phone]) by phone regarding EMS auth request for additional units for appointments added AFTER initial request/auth received. CM advised will consult Gardening Manager and Director regarding patient needs; provide updates upon receipt. SW attempted to contact [facility] Department (Diana Marin p: [phone] f" [phone]) regarding additional AUTH units for appointments added AFTER initial auth provided; left message. ROB spoke with [facility] Dept (Mandy p: [phone]) regarding additional AUTH units for appointments added AFTER initial auth provided. confirmed receipt of documents/forms; marked expedited; have up to 72 hours to process ~ Thursday02/19/20. sent email to RN & Gardening Manager for Urgent assistance. Uncertain if auth will be received by tomorrow/may have to reschedule appointment. ROB provided updates receive to EMS provider ([facility] P: [phone]). SW continue following up and call/email with updates. Nikki Blount LMSW, [facility] Rn Cardiology- Label Cutter Management [facility] Pager: [phone] Em: [email or web address] Nikki Rolon LMSW - 02/14/2020 10:22 AM CSTSocial Work Note Rn Cardiology (ROB) spoke with patients insurance defense attorney (Dani Barlow p: [phone]) by phone regarding EMS auth request for additional appointment added after initial request/auth received.CM advised to complete/submit [facility] prior auth request form and [employer] [place] Medicaid [facility] prior Auth Request (Form F 65804) for authorization completion to Patient's insurance provider ([employer] p: [phone] f: [phone]). ROB competed Ins and EMS forms; provided toPCP for completion/return. No new needs identified at present. SW services complete. Nikki Blount LMSW, [facility] Rn Cardiology- Label Cutter Management [facility] Pager: [phone] Em: [email or web address] Nikki Rolon LMSW - 02/14/2020 10:22 AM CSTSocial Work Note Rn Cardiology (ROB)spoke with [employer] Windows And Doors Installer (Dani Gavinmiguel p: [phone]) regarding Additional units for EMS auth submitted (01/13/20; Auth# [id number] [facility] p: [phone] f: [phone] Dates approved: 01/23/20-06/13/20 Services approved: A0428 8 [...] medical team; services complete. Nikki Blount LMSW, [facility] Rn Cardiology- Label Cutter Management [facility]- Community Based Clinics [facility] ,and [place] Pager: [phone] Em: [email or web address] Nikki Rolon LMSW - 02/14/2020 10:22 AM CSTSocial Work Note Rn Cardiology (ROB) attempted to contact Operator Engineer (Dani Yinori p: [phone]) regarding assigned CM contact information, additional EMS trips and Home Health services vs OP (SLT); leftmessage. SW will continue attempts to contact. Rn Cardiology (ROB) contacted EMS provider (Shila Sousa [facility] p: [phone] x [phone] Em: [email or web address]: [phone] ) to coordinate/schedule additional EMS transports for new appointments (02/17/20, 02/22/20, and 03/14/20). EMS advised new PCS form will be required 03/16/2020. No new needs identified at present. ROB provideddates, address, clinic contact information fr scheduled appoitnment; services complete. Nikki Blount LMSW, [facility] Rn Cardiology- Label Cutter Management [facility] Pager: [phone] Em: [email or web address] Nikki Rolon LMSW - 02/14/2020 10:22 AM CSTSocial Work Note Rn Cardiology (ROB) received call from Operator Engineer (Dani Barlow p: [phone]) regarding Home Health services vs OP (SLT); CM Gardening Manager. pending/reviewing. CM advised sending PCP Star Plus Waiver Program packet to complete/return (Provider). SW provided updates to medical team. Nikki Blount LMSW, [facility] Rn Cardiology- Label Cutter Management [facility] Pager: [phone] Em: [email or web address] Nikki Rolon LMSW - 02/14/2020 10:22 AM CSTSocial Work Note Rn Cardiology (ROB) received consult Insurance denial for HH (SLT). ROB spoke with a [place] [employer] telehealth case manager (Dani Benson p: [phone]) regarding patient needs; insurance barriers. CM reviewed patients records; advised will submit concerns to Ins CM Gardening Manager; requesting evaluation for Star Plus Waiver Program and expedited Provider services. CM explained will contact patients daughter to review HH- SLT appeal process. SW attempted to contact patients Daughter (Elyssa Scanlon p: [phone]) to provide Ins CM updates; left message. SW will continue attempts to contact. Nikki Blount LMSW, [facility] Rn Cardiology- Label Cutter Management [facility] Pager: [phone] Em: [email or web address] L CUTTER documented in this encounter Plan of Treatment Date Type Specialty Care Team Description 03/02/2020 Office Visit Thoracic Surgery Hossein Stewart MD [address] [address] [phone] 03/14/2020 Appointment Radiology Renan Marcial MD [address] [phone] 03/27/2020 Office Visit Neurology Nick Denson MD [address] [place] [phone] 06/07/2020 Office Visit Pulmonary Disease Bo Mejia MD [address] [facility] [address] [address] 555 06/11/2020 Office Visit Cardiology Daya Love M D [address] [facility] [address] [place], [place] [address] 15 Health Maintenance Due Date Last Done [...] Problems Progress Quit using Tobacco Use caleb Peralta [place] (cigarettes, smokeless, etc) documented as of this encounter Results Not on filedocumented in this encounter Additional Health Concerns Infection Onset Date Last Indicated Resolved Time Contact- MRSA 01/12/2020 01/12/2020 documented as of this encounter Insurance Payer Benefit Plan / Subscriber ID Effective Phone Address [facility] Dates [place]LES SOTO [id number] 2015-Pres [address] Medic aid HEALTHCARE - HEALTHCARE ent [id number] MANAGED MEDICAID [place], MEDICAID [place] documented as of this encounter
--- OUTSIDE RECORDS SUMMARY | 2020-03-10 04:00 | XMS REPORT | Summary of Care ---
:1960 Author Organization [facility] - [facility] Address [address] [place] [address] Care Team Providers Name Role Phone Gatito Chauhan MD Primary Care Provider Zeke Márquez Insurance Hmo Reason for Visit Reason Comments Social Work Insurance denial for (SLT ) Encounter Details Date Type Department Care Team Description 02/14/2020 Patient Outreach [facility] Nikki Blount, Social W ork Pediatric and Adult INSPECTOR REPAIRER [employer]ANDST[employer] (Insurance denial Primary Care- [address] [place] [address] for (SLT) ) [place] [address] Drive, [address] [place] [address] Allergies No Known Allergiesdocumented as of this encounter (statuses as of 02/24/2020) Medications Medication Sig Dispensed Refills Start Date [...] enteral Coronary artery disease tube daily. involving [place] coronary artery of [place] heart without angina pectoris, Cerebrovascular accident (CVA), unspecified mechanism, Essential hypertension atorvastatin 40 mg Take 1 tablet 90 tablet 3 02/06/2020 Active tabletIndications: through enteral Coronary artery disease tube at involving [place] bedtime. coronary artery of [place] heart without angina pectoris, Cerebrovascular accident (CVA), unspecified mechanism, Essential hypertension famotidine 20 mg Take 1 tablet 90 tablet 3 02/06/2020 Active tabletIndications: by mouth 2 Gastroesophageal reflux (two) times disease, unspecified daily. whether esophagitis present lisinopriL 40 mg Take 1 tablet 90 tablet 3 02/06/2020 Active tabletIndications: by mouth daily. Coronary artery disease involving [place] coronary artery of [place] heart without angina pectoris, Essential hypertension Polyethylene Glycol 3350 Take 1 Packet 180 Packet 3 02/06/2020 Active 17 gram through enteral powderIndications: tube 2 (two) Constipation, times daily. unspecified constipation type risperiDONE 0.5 mg Take 1 tablet 180 tablet 3 02/06/2020 Active tabletIndications: through enteral Schizophrenia, tube 2 (two) unspecified type times daily. 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 documented as of this encounter Last Filed Vital Signs Not on filedocumented in this encounter Progress Notes Nikki Blount LMSW - 02/14/2020 10:22 AM CSTSocial Work Note Referral Management Liaison (ROB) received call with EMS ([facility] p: [phone]: [phone]) regarding Patients transport (02/24/20- scheduled appointment cancelled) appointment changes. EMS expressed frustration regarding patient appointment changes; no contact. SW reviewed Daughters ability to contact EMS with any appointment changes. EMS verbalized understanding. SW spoke with Patients Daughter (Elyssa Scanlon p: [phone]) by phone regarding EMS transports/contact with any/all appointment rescheduling. Daughter verbalized understanding. SW reviewed EMS providercontact information. Daughter verbalized understanding; expressing concerned regarding EMS staff behaviors. SW explained will contact [facility] department to share concerns/experiences. Daughter verbalized understanding. No new needs identified at present. SW services complete. Nikki Blount LMSW, [facility] Referral Management Liaison- Senior Linux Unix Engineer Management [facility]- Community Based Clinics [facility] ,and [place] Pager: [phone] Em: [email or web address] Nikki Rolon LMSW - 02/14/2020 10:22 AM CSTSocial Work Note Referral Management Liaison (SW) consulted Department regarding Daughter concerns expressed for patients formula. CM provided DME order process education; suggesting relative contact original DME (formula) provider ([address], [place], [place] F: [phone]). SW spoke with patients Daughter (Elyssa Scanlon p: [phone] ) regarding information received for requesting reorder/refill from DME provider. Daughter verbalized understanding. No new needs identified at present. SW services complete. Nikki Blount LMSW, [facility] Referral Management Liaison- Senior Linux Unix Engineer Management [facility] Pager: [phone] Em: [email or web address] Nikki Rolon LMSW - 02/14/2020 10:22 AM CSTSocial Work Note Referral Management Liaison (ROB) received message from [place] Insurance Manager Control-RN (Latisha Marin p: [phone] x [phone]) regarding patients EMS authorization. adviced EMS auth approved (5 Round Trips); document faxed to PCP & EMS providers. (02/21/20: Auth# [id number] [facility] p: [phone] f: [phone] Dates approved: 02/21/20-06/13/20 Services approved: [id number] 10 units (round trip) A0425 (No Prior AUTH required for services code when rendered by In-network provider). Nikki Blount LMSW, [facility] Referral Management Liaison- Senior Linux Unix Engineer Management [facility] Pager: [phone] Em: [email or web address] Nikki Rolon LMSW - 02/14/2020 10:22 AM CSTSocial Work Note Referral Management Liaison (ROB) attempted to contact manager registration (Dani Barlow p: [phone]) regarding in network EMS provider accepting patient transport needs; out of office message received (OOO 02/21/20-03/26/20; call p: [phone] for covering CM). SW spoke with Insurance UM (Latisha Marin p: [phone] x [phone]) by phone regarding In Network EMS provider ([facility] p: [phone] F: [phone]) confirming/accepting patient transport needs; requesting assistance regarding AUTH number provided (Auth # [id number] Dates: 02/16-06/11/20). UM confirmed will create Auth; will fax to EMS provider and SW. SW spoke with EMS (Vannessa with [facility] p: [phone] f: [phone]) regarding UM faxing Auth document to patients transports (5). EMS verbalized understanding. SW reviewed Daughters ability to ride. EMS confirmed daughter able to accompany patient during transports. SW spoke with Patients Daughter (Elyssa Scanlon p: [phone]) by phone regarding EMS transports. SW reviewed [...] present. SW services complete. Nikki Blount LMSW, [facility] Referral Management Liaison- Senior Linux Unix Engineer Management [facility]- Community Based Clinics [facility] ,and [place] Pager: [phone] Em: [email or web address] Appointments: Funmilayo Mcmillan Date: 02/22/2020 rescheduled 03/27/20 at 1:30pm Time: 2:30 PM Provider: Nick Denson MD Department: [facility] NEUROLOGY Clinic Clinic Address [address] [place] [address], [address] [place] [address] Funmilayo Mcmillan Date: 02/24/2020 Time: 1:45 PM Visit Type: NEW VISIT (FIRST TIME) [53] Copay: $0.00 Provider: Hossein Stewart MD Department: [facility] Clinic Clinic Address [facility] [address], 5th [place] [address] Funmilayo Mcmillan Date: 2020 Time: 11:00 AM Provider: Timmy Haynes MD Department: [facility] COVID RECOVERY Clinic Clinic Address [address] [place] [address], 3rd [place] [address] Funmilayo Mcmillan Date: 03/14/2020 Time: 10:00 AM Provider: IR GASTRO TUBE CHANGE (WITH FLUORO) Clinic Clinic Address: [address] [place] [address] Funmilayo Mcmillan Date: 06/11/2020 Time: 2:20PM Provider: Mecca Love MD [facility] CARDIOLOGY Clinic Clinic Address: [address] [place] [address], [address] [place] [phone] Nitza Mcclellan LMSW - 02/14/2020 10:22 AM CSTSocial Work Note Lizzie with [facility] contacted INSPECTOR REPAIRER SANDSTONE back and informed her that the insurance was okay and they are accepting the transports for the patient that were requested. Nitza Kim LMSW, [facility]-ROB Ambulatory Referral Management Liaison - Care Management Community Based Clinics / Adult & Pediatrics - [facility] / [facility] [phone] office [place] GIFT CARD MERCHANDISING Nikki Blount LMSW - 02/14/2020 10:22 AM CSTSocial Work Note Referral Management Liaison (ROB) spoke with In Network EMS provider (Lizzie with [facility] p: [phone] F: [phone]) to arrange transport using auth number provided ([id number] 30 A). EMS requests patient demographics and appointment information for review. SW sent requested information with EMS Auth. Nikki Blount LMSW, [facility] Referral Management Liaison- Senior Linux Unix Engineer Management [facility]- Community Based Clinics [place], [facility] ,and [place] Pager: [phone] Em: [email or web address] Appointments: Funmilayo Mcmillan Date: 02/22/2020 Time: 2:30 PM Provider: Nick Denson MD Department: [facility] NEUROLOGY Clinic Clinic Address [address] [place] [address], [address] [place] [address] Funmilayo Mcmillan Date: 02/24/2020 Time: 1:45 PM Visit Type: NEW VISIT (FIRST TIME) [53] Copay: $0.00 Provider: Hossein Stewart MD Department: [facility] Clinic Clinic Address [address], [address] [place], [place] [address] Funmilayo Mcmillan Date: 2020 Time: 11:00 AM Provider: Timmy Haynes MD Department: [facility] COVID RECOVERY Clinic Clinic Address [address] [place] [address], [address] [place] [address] Funmilayo Mcmillan Date: 03/14/2020 Time: 10:00 AM Provider: IR GASTRO TUBE CHANGE (WITH FLUORO) Clinic Clinic Address: [address] [place] [address] Funmilayo Mcmillan Date: 06/11/2020 Time: 2:20PM Provider: Mecca Love MD [facility] CARDIOLOGY Clinic Clinic Address: [address] [place] [address], [address] [address] Nikki Rolon LMSW - 02/14/2020 10:22 AM CSTSocial Work Note Referral Management Liaison (SW) communicated with Systems Test Engineer (Dani pinzon:[phone]) regarding HH and EMS. CM advised auth received: Auth # [id number] Dates: 02/17/20-06/11/20 CM provided In network providers ([facility] p: [phone] and [facility] (Vannessa p: [phone]); advising [facility] EMS in out of network. CM advised HH approved for OT/SN; researching SLT. SW spoke with provider (Osmar with [facility] p: [phone]) regarding patients services. HH confirmed patient is receiving SN, OT, SLT (*admit today/auth received). PT discharged (02/07/20-met goals). SW contacted [facility] EMS providers to attempt and arrange transport using auth number provided ( 110 00 30 A): [facility] p: [phone] -advisedwill need to consult Waste Hand;will call back. [facility] (Vannessa p: [phone]) ran patients benefits; advised "Pt only has prison carebenefits/prior auth required through [facility]". ROB communicated information received to [facility] CM; advising forms submitted ([place] and [place]) to [place] dept yesterday (02/17/20); requesting assistance. Nikki Blount LMSW, [facility] Referral Management Liaison- Senior Linux Unix Engineer Management [facility]- Community Based Clinics [facility] ,and [place] Pager: [phone] Em: [email or web address] Nikki Rolon LMSW - 02/14/2020 10:22 AM CSTSocial Work Note Referral Management Liaison (ROB) attempted to contact Patients Systems Test Engineer (Dani Barlow p: [phone] with [place] [employer]) by phone regarding EMS auth request for additional units; left message. ROB communicated with EMS (Madison Potter with [facility] p: [phone]/ [phone]/f: [phone]) regarding EMS auth request for additional units. EMS denies receipt of auth; unable to scheduled transport until auth received. SW spoke with patients daughter (Elyssa Scanlon p: [phone]) by phone regarding additional AUTH unitsfor appointments added AFTER initial auth provided. Daughter reports appointment rescheduled (02/24/20 at 1:45pm). SW reviewed Auth process; will provide updates upon receipt. Daughter verbalized understanding. SW reviewed manager oracle contact information; encouraging daughter to contact for Star Waiver program assessment, HH (OT), and DME needs. Daughter verbalized understanding; will contact today. Daughter requests information for DME (formula). SW encouraged Daughter to contact clinic for needs; DME assistance provided by clinic staff. Daughter verbalized understanding. No new needs identifiedat present. SW will provided updates to EMS, Daughter upon receipt. Nikki Blount LMSW, [facility] Referral Management Liaison- Senior Linux Unix Engineer Management [facility]- [facility] Clinics [place], [place], [place] ,and [place] Pager: [phone] Em: [email or web address] ikki Blount LMSW - 02/14/2020 10:22 AM CSTSocial Work Note Referral Management Liaison (ROB) spoke with patients insurance claims representative (Dani Barlow p: [phone]) by phone regarding EMS auth request for additional units for appointments added AFTER initial request/auth received. CM advised will consult Waste Hand and Director regarding patient needs; provide updates upon receipt. ROB attempted to contact [place] Department (Diana Marin p: [phone] f" [phone]) regarding additional AUTH units for appointments added AFTER initial auth provided; left message. ROB spoke with [place] Dept (Mandy p: [phone]) regarding additional AUTH units for appointments added AFTER initial auth provided. confirmed receipt of documents/forms; marked expedited; have up to 72 hours to process ~ Thursday02/19/20. sent email to RN & Waste Hand for Urgent assistance. Uncertain if auth will be received by tomorrow/may have to reschedule appointment. ROB provided updates receive to EMS provider ([facility] P: [phone]). SW continue following up and call/email with updates. Nikki Blount LMSW, [facility] Referral Management Liaison- Senior Linux Unix Engineer Management [facility] Pager: [phone] Em: [email or web address] Nikki Rolon LMSW - 02/14/2020 10:22 AM CSTSocial Work Note Referral Management Liaison (ROB) spoke with patients insurance claims representative (Dani Barlow p: [phone]) by phone regarding EMS auth request for additional appointment added after initial request/auth received.CM advised to complete/submit [facility] prior auth request form and [facility] Medicaid Nonemergency Ambulance prior Auth Request (Form F 92282) for authorization completion to Patient's insurance provider ([place] [employer] p: [phone] f: [phone]). ROB competed Ins and EMS forms; provided toPCP for completion/return. No new needs identified at present. SW services complete. Nikki Blount LMSW, [facility] Referral Management Liaison- Senior Linux Unix Engineer Management [facility] Pager: [phone] Em: [email or web address] Nikki Rolon LMSW - 02/14/2020 10:22 AM CSTSocial Work Note Referral Management Liaison (ROB)spoke with [place] Installation Supervisor (Dani Barlow p: [phone]) regarding Additional units for EMS auth submitted (01/13/20; Auth# [id number] p: [phone] f: [phone] Dates approved: 01/23/20-06/13/20 Services approved: [id number] 8 [...] team; services complete. Nikki Blount LMSW, [facility] Referral Management Liaison- Senior Linux Unix Engineer Management [facility] Pager: [phone] Em: [email or web address] Nikki Rolon LMSW - 02/14/2020 10:22 AM CSTSocial Work Note Referral Management Liaison (ROB) attempted to contact Systems Test Engineer (Dani Barlow p: [phone]) regarding assigned CM contact information, additional EMS trips and Home Health services vs OP (SLT); leftmessage. SW will continue attempts to contact. Referral Management Liaison (ROB) contacted EMS provider (Shila Sousa with [facility] p: [phone] x [phone] Em: [email or web address]: [phone] ) to coordinate/schedule additional EMS transports for new appointments (02/17/20, 02/22/20, and 03/14/20). EMS advised new PCS form will be required 03/16/2020. No new needs identified at present. ROB provideddates, address, clinic contact information fr scheduled appoitnment; services complete. Nikki Blount LMSW, [facility] Referral Management Liaison- Senior Linux Unix Engineer Management [facility] Pager: [phone] Em: [email or web address] Nikki Rolon LMSW - 02/14/2020 10:22 AM CSTSocial Work Note Referral Management Liaison (ROB) received call from Systems Test Engineer (Dani Barlow p: [phone]) regarding Home Health services vs OP (SLT); CM Waste Hand. pending/reviewing. CM advised sending PCP Star Plus Waiver Program packet to complete/return (Provider). ROB provided updates to medical team. Nikki Blount LMSW, CCM Referral Management Liaison- Senior Linux Unix Engineer Management [facility] Pager: [phone] Em: [email or web address] Nikki Rolon LMSW - 02/14/2020 10:22 AM CSTSocial Work Note Referral Management Liaison (ROB) received consult Insurance denial for HH (SLT). SW spoke with a [place] Medicaid case specialist (Dani Benson p: [phone]) regarding patient needs; insurance barriers. CM reviewed patients records; advised will submit concerns to Ins CM Waste Hand; requesting evaluation for Star Plus Waiver Program and expedited Provider services. CM explained will contact patients daughter to review HH- SLT appeal process. SW attempted to contact patients Daughter (Elyssa Scanlon p: [phone]) to provide Ins CM updates; left message. SW will continue attempts to contact. Nikki Blount LMSW, [facility] Referral Management Liaison- Senior Linux Unix Engineer Management [facility] Pager: [phone] Em: [email or web address] [place] GIFT CARD MERCHANDISING documented in this encounter Plan of Treatment Date Type Specialty Care Team Description 03/02/2020 Office Visit Thoracic Surgery Hossein Stewart MD [address] [address] [phone] 03/14/2020 Appointment Radiology Renan Marcial MD [address] [place] [address] 555 03/27/2020 Office Visit Neurology Nick Denson MD [address] [place] [address] 06/07/2020 Office Visit Pulmonary Disease Bo Mejia MD [address] [place] [address] [address] [phone] 06/11/2020 Office Visit Cardiology Daya Love M D [address] [facility] [address] [place] [address]75 [phone] Health Maintenance Due Date Last Done Comments [...] / Subscriber ID Effective Phone Address [employer] Dates [employer] [id number] 2015-Pres [address] Medic aid HEALTHCARE - HEALTHCARE ent [id number] MANAGED MEDICAID [place], MEDICAID [place] documented as of this encounter
--- OUTSIDE RECORDS SUMMARY | 2020-03-10 04:00 | XMS REPORT | Summary of Care ---
:1960 Author Organization [facility] - Health Address [address] [place] [id number] Care Team Providers Name Role Phone Gatito Chauhan MD Primary Care Provider Zeke Márquez Insurance Hmo Encounter Details Date Type Department Care Team Description 02/16/2020 Orders Only [facility] Doctor Unassigned, No 301 [facility] Name [place] [phone] [place] [address] Allergies No Known Allergiesdocumented as of this encounter (statuses as of 03/05/2020) Medications Medication Sig Dispensed Refills Start Date [...] enteral Coronary artery disease tube daily. involving nikolai coronary artery of nikolai heart without angina pectoris, Cerebrovascular accident (CVA), unspecified mechanism, Essential hypertension atorvastatin 40 mg Take 1 tablet 90 tablet 3 02/06/2020 Active tabletIndications: through enteral Coronary artery disease tube at involving nikolai bedtime. coronary artery of nikolai heart without angina pectoris, Cerebrovascular accident (CVA), unspecified mechanism, Essential hypertension famotidine 20 mg Take 1 tablet 90 tablet 3 02/06/2020 Active tabletIndications: by mouth 2 Gastroesophageal reflux (two) times disease, unspecified daily. whether esophagitis present lisinopriL 40 mg Take 1 tablet 90 tablet 3 02/06/2020 Active tabletIndications: by mouth daily. Coronary artery disease involving nikolai coronary artery of nikolai heart without angina pectoris, Essential hypertension Polyethylene Glycol 3350 Take 1 Packet 180 Packet 3 02/06/2020 Active 17 gram through enteral powderIndications: tube 2 (two) Constipation, times daily. unspecified constipation type risperiDONE 0.5 mg Take 1 tablet 180 tablet 3 02/06/2020 Active tabletIndications: through enteral Schizophrenia, tube 2 (two) unspecified type times daily. documented as of this encounter (statuses as of 03/05/2020) Active Problems Problem Noted Date Gastrostomy status 03/02/2020 Other complications of procedures, not elsewhere class ified, initial 03/02/2020 encounter Abnormal surgical wound 03/02/2020 History of stroke 02/11/2020 Requires daily assistance for activities of daily marta ng (ADL) and comfort 02/11/2020 needs Lung mass 02/11/2020 Speech problem 02/11/2020 E44.0 Moderate protein calorie malnutrition 12/27/2019 Cocaine abuse 12/25/2019 At risk for seizures 12/25/2019 Coronary artery disease without angina pectoris 2015 HTN (hypertension) 07/23/2015 PAD (peripheral artery disease) 05/10/2015 documented as of this encounter (statuses as of 03/05/2020) Resolved Problems Problem Noted Date Resolved Date Respiratory distress 12/29/2019 02/11/2020 Acute ischemic left MCA stroke 12/24/2019 0 Chest pain 07/22/2015 02/11/2020 documented as of this encounter (statuses as of 03/05/2020) Social History Tobacco Use Types Packs/Day Years [...] with No / Unsure 02/06/2020 10:40 AM 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 documented as of this encounter Last Filed Vital Signs Not on filedocumented in this encounter Plan of Treatment Date Type Specialty Care Team Description 03/05/2020 Office Visit Thoracic Surgery Hossein Stewart MD [address] [place] [address] [phone] 03/14/2020 Appointment Radiology Renan Marcial MD [address] [place] [address] 555 03/27/2020 Office Visit Neurology Nick Denson MD [address] [place] [address] 555 06/07/2020 Office Visit Pulmonary Disease Bo Mejia MD 301 [facility] [address] [place] [address] 555 06/11/2020 Office Visit Cardiology Daya Love M D [address] [place] [address] [place] [address] 15 [phone] Health Maintenance Due Date Last Done Comments [...] Quit using Tobacco Use No caleb Reese MA (cigarettes, smokeless, etc) documented as of this encounter Procedures Procedure Name Priority Date/Time Associated Diagnosis Comme nts PHYSICIAN CERTIFICATION Routine 02/16/2020 12:01 AM STATEMENT LIMITED RADIOLOGY TECHNICIAN documented in this encounter Results Not on filedocumented in this encounter Additional Health Concerns Infection Onset Date Last Indicated Resolved Time Contact- MRSA 01/12/2020 01/12/2020 documented as of this encounter Insurance Payer Benefit Plan / Subscriber ID Effective Phone Address T e Group Dates EMRE ANDREA [id number] 2015-Pres [address] Medic aid [place] [id number] MANAGED MEDICAID [place], [place] documented as of this encounter
--- OUTSIDE RECORDS SUMMARY | 2020-03-10 04:00 | XMS REPORT | Summary of Care ---
:[address] [facility] - Health Address [address] [place] [address] Care Team Providers Name Role Phone Gatito Chauhan MD Primary Care Provider Zeke Márquez Insurance Hmo Encounter Details Date Type Department Care Team Description 02/21/[address] [facility] Doctor Unassigned, No 301 [facility] Name [place] [phone] [place] [address] Allergies No Known Allergiesdocumented as of this [...] enteral Coronary artery disease tube daily. involving [place] coronary artery of [place] heart without angina pectoris, Cerebrovascular accident (CVA), unspecified mechanism, Essential hypertension atorvastatin 40 mg Take 1 tablet 90 tablet 3 02/06/2020 Active tabletIndications: through enteral Coronary artery disease tube at involving [place] bedtime. coronary artery of [place] heart without angina pectoris, Cerebrovascular accident (CVA), unspecified mechanism, Essential hypertension famotidine 20 mg Take 1 tablet 90 tablet 3 02/06/2020 Active tabletIndications: by mouth 2 Gastroesophageal reflux (two) times disease, unspecified daily. whether esophagitis present lisinopriL 40 mg Take 1 tablet 90 tablet 3 02/06/2020 Active tabletIndications: by mouth daily. 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 documented as of this encounter Last Filed Vital Signs Not on filedocumented in this encounter Plan of Treatment Date Type Specialty Care Team Description 03/05/2020 Office Visit Thoracic Surgery Hossein Stewart MD [address] [place] [address] [phone] 03/14/2020 Appointment Radiology Renan Marcial MD [address] [place] [address] 555 03/27/2020 Office Visit Neurology Nick Denson MD [address] [place] [address] 555 06/07/2020 Office Visit Pulmonary Disease Bo Mejia MD 301 [facility] [address] [place] [address] 555 06/11/2020 Office Visit Cardiology Daya Love M D [address] [place] [address] [place] [address] 775 15 [phone] Health Maintenance Due Date Last Done Comments [...] Name Priority Date/Time Associated Diagnosis Comme nts INSURANCE CORRESPONDENCE Routine 02/21/2020 12:01 AM 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
--- OUTSIDE RECORDS SUMMARY | 2020-03-10 04:00 | XMS REPORT | Summary of Care ---
:1960 Author Organization [facility] - Health Address [address] [place] [address] Care Team Providers Name Role Phone Gatito Chauhan MD Primary Care Provider Zeke Márquez Insurance Hmo Encounter Details Date Type Department Care Team Description 02/24/2020 Orders Only [facility] Doctor Unassigned, No 301 [facility] Name [place] [phone] [place] [address] Allergies No Known Allergiesdocumented as of this [...] enteral Coronary artery disease tube daily. involving [place] coronary artery of [place] heart without angina pectoris, Cerebrovascular accident (CVA), unspecified mechanism, Essential hypertension atorvastatin 40 mg Take 1 tablet 90 tablet 3 02/06/2020 Active tabletIndications: through enteral Coronary artery disease tube at involving [place] bedtime. coronary artery of [place] heart without angina pectoris, Cerebrovascular accident (CVA), unspecified mechanism, Essential hypertension famotidine 20 mg Take 1 tablet 90 tablet 3 02/06/2020 Active tabletIndications: by mouth 2 Gastroesophageal reflux (two) times disease, unspecified daily. whether esophagitis present lisinopriL 40 mg Take 1 tablet 90 tablet 3 02/06/2020 Active tabletIndications: by mouth daily. Coronary artery disease involving [place] coronary artery of [place] heart without angina pectoris, Essential [...] with No / Unsure 02/06/2020 10:40 AM TYPER someone who was confirmed or suspected to have 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 documented as of this encounter Last Filed Vital Signs Not on filedocumented in this encounter Plan of Treatment Date Type Specialty Care Team Description 03/05/2020 Office Visit Thoracic Surgery Hossein Stewart MD [address] [place] [address] [phone] 03/14/2020 Appointment Radiology Renan Marcial MD [address] [place] [address] 555 03/27/2020 Office Visit Neurology Nick Denson MD [address] [place] [address] 555 06/07/2020 Office Visit Pulmonary Disease Bo Mejia MD 301 [facility] [address] [place] [address] 555 06/11/2020 Office Visit Cardiology Daya Love M D [address] [place] [address] [place] [address]75 15 [phone] Health Maintenance Due Date Last Done Comments [...] Name Priority Date/Time Associated Diagnosis Comme nts REFERRAL- Routine 02/24/2020 12:01 AM TYPER REQUEST/RESPONSE documented in this encounter Results Not on filedocumented in this encounter Additional Health Concerns Infection Onset Date Last Indicated Resolved Time Contact- MRSA 01/12/2020 01/12/2020 documented as of this encounter Insurance Payer Benefit Plan / Subscriber ID Effective Phone Address T [facility] Group Dates EMRE ANDREA [id number] 2015-Pres [address] BOX Medic aid [place] [id number] MANAGED MEDICAID [place], [place] documented as of this encounter
--- OUTSIDE RECORDS SUMMARY | 2020-03-10 04:01 | XMS REPORT | Summary of Care ---
:1960 Author Organization [facility] - Health Address [address] [place] [address] Care Team Providers Name Role Phone Gatito Chauhan MD Primary Care Provider Zeke Márquez Insurance Hmo Encounter Details Date Type Department Care Team Description 02/28/2020 Orders Only [facility] Doctor Unassigned, No 301 [facility] Name [place] [phone] [place] [address] Allergies No Known Allergiesdocumented as of this [...] enteral Coronary artery disease tube daily. involving [place] coronary artery of [place] heart without angina pectoris, Cerebrovascular accident (CVA), unspecified mechanism, Essential hypertension atorvastatin 40 mg Take 1 tablet 90 tablet 3 02/06/2020 Active tabletIndications: through enteral Coronary artery disease tube at involving [place] bedtime. coronary artery of [place] heart without angina pectoris, Cerebrovascular accident (CVA), unspecified mechanism, Essential hypertension famotidine 20 mg Take 1 tablet 90 tablet 3 02/06/2020 Active tabletIndications: by mouth 2 Gastroesophageal reflux (two) times disease, unspecified daily. whether esophagitis present lisinopriL 40 mg Take 1 tablet 90 tablet 3 02/06/2020 Active tabletIndications: by mouth daily. 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 documented as of this encounter Last Filed Vital Signs Not on filedocumented in this encounter Plan of Treatment Date Type Specialty Care Team Description 03/14/2020 Appointment Radiology Renan Marcial MD [address] [place], [place] [address] 03/27/2020 Office Visit Neurology Nick Denson MD [address] [place], [place] [address] 06/07/2020 Office Visit Pulmonary Disease Bo Mejia MD [address] [place], [place] [address] 06/11/2020 Office Visit Cardiology Daya Love M D [address] [place] [address] [place], [place] [address] [phone] Health Maintenance Due Date Last Done Comments [...] Comme nts HOME HEALTH - OTHER Routine 02/28/2020 12:01 AM 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
--- OUTSIDE RECORDS SUMMARY | 2020-03-10 04:01 | XMS REPORT | Summary of Care ---
:1960 Author Organization [facility] Address [address] [place] [address] Care Team Providers Name Role Phone Gatito Chauhan MD Primary Care Provider Zeke Márquez Insurance Hmo Reason for Referral MRI/CAT Scan (Routine) Status Reason Specialty Diagnoses / Referred By Referred To Procedures Contact Contact New Request Diagnostic Diagnoses Lung mass Rae Palma Radiology Procedures CT THORAX W CONTRAST V, ACNP [address] [place] [address] Reason for Visit Reason Comments New Evaluation Lung Mass (Routine) Status Reason Specialty Diagnoses / Referred By Referred To Procedures Contact Contact Closed TS-THORACIC Diagnoses Altered mental status, unspecified altered mental status type Denson, Nick SURGERY Procedures Discharge Follow-Up: Specialty Service TS-THORACIC SURGERY (CARDIOTHORACIC VASCULAR SURGERY); 1 Month MD Beverley (CARDIOTHORACIC [address] [place] [address] Leon VASCULAR SURGERY) [place], [place] / Thoracic Surgery [address] Encounter Details Date Type Department Care Team Description 03/05/2020 Office Visit [facility] Cancer Hossein Stewart Lung m ass (Primary Dx) Center-Thoracic MD Zay Oncology 301 [facility] [address] [facility], 2nd floor [address] [place], [place] [phone] [address] Allergies No Known Allergiesdocumented as of this encounter (statuses as of 03/08/2020) Medications Medication Sig Dispensed Refills Start Date [...] enteral Coronary artery disease tube daily. involving [place] coronary artery of [place] heart without angina pectoris, Cerebrovascular accident (CVA), unspecified mechanism, Essential hypertension atorvastatin 40 mg Take 1 tablet 90 tablet 3 02/06/2020 Active tabletIndications: through enteral Coronary artery disease tube at involving [place] bedtime. coronary artery of [place] heart without angina pectoris, Cerebrovascular accident (CVA), unspecified mechanism, Essential hypertension famotidine 20 mg Take 1 tablet 90 tablet 3 02/06/2020 Active tabletIndications: by mouth 2 Gastroesophageal reflux (two) times disease, unspecified daily. whether esophagitis present lisinopriL 40 mg Take 1 tablet 90 tablet 3 02/06/2020 Active tabletIndications: by mouth daily. Coronary artery disease involving [place] coronary artery of [place] heart without angina pectoris, Essential hypertension Polyethylene [...] as of this encounter (statuses as of 03/08/2020) Active Problems Problem Noted Date Gastrostomy status [...] as of this encounter (statuses as of 03/08/2020) Resolved Problems Problem Noted Date Resolved Date Respiratory distress 12/29/2019 02/11/2020 Acute ischemic left MCA stroke 12/24/2019 0 Chest pain 07/22/2015 02/11/2020 documented as of this encounter (statuses as of 03/08/2020) Social History Tobacco Use Types Packs/Day Years [...] with No / Unsure 02/06/2020 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 documented as of this encounter Last Filed Vital Signs Vital Sign Reading Time Taken Comments Blood Pressure 106/71 03/05/2020 10:06 AM CENTRAL OFFICE INSPECTOR Pulse 69 03/05/2020 10:06 AM CENTRAL OFFICE INSPECTOR Temperature - - Respiratory Rate - - Oxygen Saturation 96% 03/05/2020 10:06 AM CENTRAL OFFICE INSPECTOR Inhaled Oxygen - - Concentration Weight 51.7 kg (114 lb) 03/05/2020 10:06 AM came in tra nsport bed CENTRAL OFFICE INSPECTOR - last weight Height 160 cm (5' 3") 03/05/2020 10:06 AM CENTRAL OFFICE INSPECTOR Body Mass Index 20.19 03/05/2020 10:06 AM CENTRAL OFFICE INSPECTOR documented in this encounter Progress Notes Hossein Stewart MD - 03/05/2020 9:00 AM CST Cc: RUL mass Chief Complaint Patient presents with New Evaluation Lung Mass Funmilayo Mcmillan is a 60 year old female. Ms. Mcmillan suffered a major cerebrovascular accident in December of this year. The etiology appeared to be an embolic stroke. She is recovering slowly. She still has aphasia and does not talk. She cannot ambulate but is able to transfer herself from a bed to a chair. She was found on CT scan imaging to have a vague RUL nodule. Allergies Funmilayo has No Known Allergies. Medications Outpatient Medications Prior to Visit Medication Sig Dispense Refill Miscellaneous Medical Supply [facility] Patient needs Jevity, she consumes 9 bottles a day. 270 Each 11 amLODIPine 10 mg tablet Take 1 tablet through enteral tube daily. 90 tablet 3 aspirin 81 mg chewable tablet Take 1 tablet through enteral tube daily. 90 tablet 3 atorvastatin 40 mg tablet Take 1 tablet through enteral tube at bedtime. 90 tablet 3 clopidogreL 75 mg tablet Take 1 tablet through enteral tube daily. 90 tablet 3 famotidine 20 mg tablet Take 1 tablet by mouth 2 (two) times daily. 90 tablet 3 levETIRAcetam 100 mg/mL oral solution Take 7.5 mL through enteral tube 2 (two) times daily. 1500mL 3 lisinopriL 40 mg tablet Take 1 tablet by mouth daily. 90 tablet 3 Polyethylene Glycol 3350 17 gram powder Take 1 Packet through enteral tube 2 (two) times daily. 180 Packet 3 risperiDONE 0.5 mg tablet Take 1 tablet through enteral tube 2 (two) times daily. 180 tablet 3 No facility-administered medications prior to visit. Histories Past Medical History: Diagnosis Date CAD (coronary artery disease) 08/2013 s/p PCI (SAEID) to proximal LAD, 50% mid focal occlusion of LCx Depression HTN (hypertension) PAD (peripheral artery disease) 05/10/2015 Stroke Tuberculosis was treated for 6 months, was in [facility]. No past surgical history on file. Social History Socioeconomic History Marital status: Single [...] file Gets together: Not on file Attends worship service: Not on file Active member of [...] friend. She's on disability. She's active. Family History Problem Relation Age of Onset Coronary Heart Disease Maternal Aunt Review of Systems Constitutional: Negative. HENT: Negative. Eyes: Negative. Respiratory: Negative. Breasts: Negative. Cardiovascular: Negative. Gastrointestinal: Negative. Genitourinary: Negative. Musculoskeletal: Aphasia Skin: Negative. Neurological: Positive for speech difficulty and weakness. Psychiatric/Behavioral: Negative. Endocrine: Endocrine negative Vital Signs BP 106/71 (BP Location: Left arm, Patient Position: Sitting, BP CUFF SIZE: Adult Small) | Pulse 69| Ht 1.6 m (5' 3") | Wt 51.7 kg (114 lb) | SpO2 96% | BMI 20.19 kg/m Physical Exam Vitals signs and nursing note reviewed. Constitutional: Appearance: Normal appearance. HENT: Head: Normocephalic and atraumatic. Mouth/Throat: Mouth: Mucous membranes are dry. Eyes: Conjunctiva/sclera: Conjunctivae normal. Neck: Musculoskeletal: Normal range of motion and neck supple. Cardiovascular: Rate and Rhythm: Normal rate and regular rhythm. Pulses: Normal pulses. Heart sounds: Normal heart sounds. Pulmonary: Effort: Pulmonary effort is normal. Breath sounds: Normal breath sounds. Abdominal: General: Abdomen is flat. Palpations: Abdomen is soft. Skin: General: Skin is warm and dry. Neurological: General: No focal deficit present. Mental Status: She is alert and oriented to person, place, and time. Psychiatric: Mood and Affect: Mood normal. Behavior: Behavior normal. Assessment/Plan Ms. Mcmillan has a vague RUL lung nodule. Given her significant morbidity from her recent CVA, I would recommend surveillance of the lesion. I advised a repeat CT scan in 6 months. Her daughter, who is present, agreed. This visit involved counseling and coordination of care that comprised more than 50% of the visit time. I spent 60 minute(s) total time with the patient. RAL OFFICE INSPECTOR Ruby Potter RN - 03/05/2020 9:00 AM CSTFunmilayo Mcmillan is a 59 year old female arrived to exam room: via transport bed accompanied by daughter. Alert and oriented. NAD noted at this time. Vital signs obtained and documented. Reason for visit: Lung Mass - patient history obtained by daughter at visit. Pain scale: 0/10 - per daugher patient has complained of right LE and UE pain. Patient unable to rate pain. Medications and allergies reviewed/reconciled with patient. Fall risk assessment completed. Pt reports zero falls in past year. Ruby Potter RN RAL OFFICE INSPECTOR documented in this encounter Plan of Treatment Date Type Specialty Care Team Description 03/14/2020 Appointment Radiology Renan Marcial MD [address] [place] [address] 555 03/27/2020 Office Visit Neurology Nick Denson MD [address] [place] [address] 555 06/07/2020 Office Visit Pulmonary Disease Bo Mejia MD [address] [place] [address] 06/11/2020 Office Visit Cardiology Daya Love M D [address] [place] [address] [address] [place], [place] [address] [phone] 09/03/2020 Appointment Radiology Rae Palma V, [facility] [address] [place] [address] [phone] Name Type Priority Associated Diagnoses Order S chedule CT THORAX W CONTRAST IMAGING Routine Lung mass Expecte d: 09/05/2020, Expires: 2020 Health Maintenance Due Date Last Done Comments [...] filedocumented in this encounter Visit Diagnoses Diagnosis Lung mass - Primary Swelling, mass, or lump in chest documented in this encounter Additional Health Concerns Infection Onset Date Last Indicated Resolved Time Contact- MRSA 01/12/2020 01/12/2020 documented as of this encounter Insurance Payer Benefit Plan / Subscriber ID Effective Phone Address T [facility] Group Dates EMRE ANDREA [id number] 2015- [address]OX Medic aid [place]CARE [place] [id number] MANAGED MEDICAID [place] documented as of this encounter
--- OUTSIDE RECORDS SUMMARY | 2020-03-10 04:01 | XMS REPORT | Summary of Care ---
:1960 Author Organization [facility] Address [address] [place] [address] Care Team Providers Name Role Phone Gatito Chauhan MD Primary Care Provider Zeke Márquez Insurance Hmo Reason for Visit Reason Comments Forms Encounter Details Date Type Department Care Team Description 03/05/2020 Telephone [facility] and Janiya Chauhan Forms Adult Primary Care- MD Askew [address] [place] [address] [address] [facility] [address] [place] [address] [place] [address] [phone] Allergies No Known Allergiesdocumented as of this encounter (statuses as of 2020) Medications Medication Sig Dispensed Refills Start Date [...] enteral Coronary artery disease tube daily. involving [place] coronary artery of [place] heart without angina pectoris, Cerebrovascular accident (CVA), unspecified mechanism, Essential hypertension atorvastatin 40 mg Take 1 tablet 90 tablet 3 02/06/2020 Active tabletIndications: through enteral Coronary artery disease tube at involving [place] bedtime. coronary artery of [place] heart without angina pectoris, Cerebrovascular accident (CVA), unspecified mechanism, Essential hypertension famotidine 20 mg Take 1 tablet 90 tablet 3 02/06/2020 Active tabletIndications: by mouth 2 Gastroesophageal reflux (two) times disease, unspecified daily. whether esophagitis present lisinopriL 40 mg Take 1 tablet 90 tablet 3 02/06/2020 Active tabletIndications: by mouth daily. Coronary artery disease involving [place] coronary artery of [place] heart without angina pectoris, Essential hypertension Polyethylene [...] as of this encounter (statuses as of 2020) Active Problems Problem Noted Date Gastrostomy status [...] as of this encounter (statuses as of 2020) Resolved Problems Problem Noted Date Resolved Date Respiratory distress 12/29/2019 02/11/2020 Acute ischemic left MCA stroke 12/24/2019 0 Chest pain 07/22/2015 02/11/2020 documented as of this encounter (statuses as of 2020) Social History Tobacco Use Types Packs/Day Years [...] with No / Unsure 02/06/2020 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 documented as of this encounter Last Filed Vital Signs Not on filedocumented in this encounter Miscellaneous Notes Telephone Encounter - Heather Galvez RN - 2020 11:08 AM CSTTitle 19 X2 and physician order faxed per Heather Galvez RN elephone Encounter - Javi Beauchamp - 03/05/2020 3:53 PM CSTTJ with [facility] is calling in to check the status of the title 19 that was brought in for review and signature patient is completely out of supplies.Please advise documented in this encounter Plan of Treatment Date Type Specialty Care Team Description 03/14/2020 Appointment Radiology Renan Marcial MD [address] [place] [phone] 03/27/2020 Office Visit Neurology Nick Denson MD [address] [place] [phone] 06/07/2020 Office Visit Pulmonary Disease Bo Mejia MD [address] [place] [phone] 06/11/2020 Office Visit Cardiology Daya Love M D [address] [facility] [address] [place], [place] [address] [phone] Health Maintenance Due Date Last Done Comments [...] Address T ype Group Dates EMRE ANDREA [id number] 2014-Pres [address] Medic aid [facility] [place] [id number] MANAGED MEDICAID [place], [place] documented as of this encounter
--- OUTSIDE RECORDS SUMMARY | 2020-03-10 04:02 | XMS REPORT | Summary of Care ---
:1960 Author Organization [facility] Address [address] [place] [address] Care Team Providers Name Role Phone Gatito Chauhan MD Primary Care Provider Zeke Márquez Insurance Hmo Reason for Referral MRI/CAT Scan (Routine) Status Reason Specialty Diagnoses / Referred By Referred To Procedures Contact Contact New Request Diagnostic Diagnoses Lung mass Rae Palma Radiology Procedures CT THORAX W CONTRAST V, ACNP [address] [place] [address] Reason for Visit Reason Comments New Evaluation Lung Mass (Routine) Status Reason Specialty Diagnoses / Referred By Referred To Procedures Contact Contact Closed TS-THORACIC Diagnoses Altered mental status, unspecified altered mental status type Denson, Nick SURGERY Procedures Discharge Follow-Up: Specialty Service TS-THORACIC SURGERY (CARDIOTHORACIC VASCULAR SURGERY); 1 Month MD [place] (CARDIOTHORACIC [address] [place] [address] Leon VASCULAR SURGERY) [place], [place] / Thoracic Surgery [address] Encounter Details Date Type Department Care Team Description 03/05/2020 Office Visit [facility] Cancer Hossein Stewart Lung m ass (Primary Dx) Center-Thoracic MD Zay Oncology [address] [facility] [address] [facility], 2nd floor [address] [place], [place] [phone] Allergies No Known Allergiesdocumented as of [...] enteral Coronary artery disease tube daily. involving [place] coronary artery of [place] heart without angina pectoris, Cerebrovascular accident (CVA), unspecified mechanism, Essential hypertension atorvastatin 40 mg Take 1 tablet 90 tablet 3 02/06/2020 Active tabletIndications: through enteral Coronary artery disease tube at involving [place] bedtime. coronary artery of [place] heart without angina pectoris, Cerebrovascular accident (CVA), unspecified mechanism, Essential hypertension famotidine 20 mg Take 1 tablet 90 tablet 3 02/06/2020 Active tabletIndications: by mouth 2 Gastroesophageal reflux (two) times disease, unspecified daily. whether esophagitis present lisinopriL 40 mg Take 1 tablet 90 tablet 3 02/06/2020 Active tabletIndications: by mouth daily. Coronary artery disease involving [place] coronary artery of [place] heart without angina pectoris, Essential hypertension Polyethylene [...] with No / Unsure 02/06/2020 10:40 AM PLANT DIRECTOR someone who was confirmed or suspected to have 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 documented as of this encounter Last Filed Vital Signs Vital Sign Reading Time Taken Comments Blood Pressure 106/71 03/05/2020 10:06 AM PLANT DIRECTOR Pulse 69 03/05/2020 10:06 AM PLANT DIRECTOR Temperature - - Respiratory Rate - - Oxygen Saturation 96% 03/05/2020 10:06 AM PLANT DIRECTOR Inhaled Oxygen - - Concentration Weight 51.7 kg (114 lb) 03/05/2020 10:06 AM came in tra nsport bed PLANT DIRECTOR - last weight Height 160 cm (5' 3") 03/05/2020 10:06 AM PLANT DIRECTOR Body Mass Index 20.19 03/05/2020 10:06 AM PLANT DIRECTOR documented in this encounter Progress Notes Hossein [...] was treated for 6 months, was in retirement. No past surgical history on file. Social [...] file Gets together: Not on file Attends advent service: Not on file Active member of [...] 60 minute(s) total time with the patient. T DIRECTOR Ruby Potter RN - 03/05/2020 9:00 AM [...] falls in past year. Ruby Potter RN T DIRECTOR documented in this encounter Plan of Treatment Date Type Specialty Care Team Description 03/14/2020 Appointment Radiology Renan Marcial MD [address] [place] [phone] 03/27/2020 Office Visit Neurology Nick Denson MD [address] [place] [address] 06/07/2020 Office Visit Pulmonary Disease Bo Mejia MD [address] [place] [address] 06/11/2020 Office Visit Cardiology Daya Love M D [address] [place] [address] [address] [place], [place] [address] [phone] 09/03/2020 Appointment [facility] [address] [place] [address] [phone] Name Type Priority Associated Diagnoses Order S [...] ID Effective Phone Address T [facility] Group Dates EMRE ANDREA [id number] 2014- [address] Medic aid [place]ALTHCARE [place] [id number] MANAGED MED[place]ID [place] documented as of this encounter
--- NOTE | 2020-03-10 05:52 | EDPHYS ---
Physician Documentation [facility] Name: Funmilayo Mcmillan Age: 60 yrs Sex: Female : 1960 Arrival Date: 03/10/2020 Time: 03:43 Bed 19 Private MD: ED Physician Harvey Coronado HPI: 03/10 04:22 This 60 yrs old Female presents to ER via EMS with complaints of Cough. mh7 04:22 The patient or guardian reports cough, that is intermittent, described as moderate. mh7 Onset: The symptoms/episode began/occurred yesterday. Severity of symptoms: At their worst the symptoms were moderate, in the emergency department the symptoms have improved, markedly. Modifying factors: The symptoms are alleviated by nothing, the symptoms are aggravated by nothing. Associated signs and symptoms: Pertinent positives: chest pain, nausea, sore throat, nasal congestion, this patient has no pertinent positive symptoms Pertinent negatives: diarrhea, fever, nausea, vomiting. Historical: - Allergies: 04:00 No Known Allergies; lp1 - Home Meds: 04:00 amlodipine 10 mg tab 1 tab once daily [Active]; aspirin 81 mg Oral chew 1 tab once lp1 daily [Active]; atorvastatin 40 mg Oral tab 1 tab once daily [Active]; clopidogrel 75 mg Oral tab 1 tab once daily [Active]; famotidine 20 mg Oral tab 1 tab every 12 hours [Active]; levetiracetam 100 mg/mL Oral soln 705 mL 2 times per day [Active]; lisinopril 40 mg Oral tab 1 tab once daily [Active]; Risperdal 0.5 mg Oral tab 2 times per day [Active]; - PMHx: 04:00 Atrial Fib; CVA; Depression; Hyperlipidemia; Hypertension; lp1 - PSHx: 04:01 Feeding tube; lp1 - Immunization history:: Adult Immunizations up to date. - Social history:: Smoking status: unknown. ROS: 04:22 Unable to obtain ROS due to Baseline nonverbal. mh7 Exam: 04:22 Constitutional: This is a well developed, well nourished patient who is awake, alert, mh7 and in no acute distress. Head/Face: Normocephalic, atraumatic. Eyes: Pupils equal round and reactive to light, extra-ocular motions intact. Lids and lashes normal. Conjunctiva and sclera are non-icteric and not injected. Cornea within normal limits. Periorbital areas with no swelling, redness, or edema. Neck: Trachea midline, no thyromegaly or masses palpated, and no cervical lymphadenopathy. Supple, full range of motion without nuchal rigidity, or vertebral point tenderness. No Meningismus. Chest/axilla: Normal chest wall appearance and motion. Nontender with no deformity. No lesions are appreciated. Cardiovascular: Regular rate and rhythm with a normal S1 and S2. No gallops, murmurs, or rubs. Normal PMI, no JVD. No pulse deficits. Respiratory: Lungs have equal breath sounds bilaterally, clear to auscultation and percussion. No rales, rhonchi or wheezes noted. No increased work of breathing, no retractions or nasal flaring. Abdomen/GI: Soft, non-tender, with normal bowel sounds. No distension or tympany. No guarding or rebound. No evidence of tenderness throughout. 04:22 Back: No spinal tenderness. No costovertebral tenderness. Full range of motion. Skin: Warm, dry with normal turgor. Normal color with no rashes, no lesions, and no evidence of cellulitis. 04:22 Abdomen/GI: feeding tube inplace. 04:22 Musculoskeletal/extremity: Extremities: noted in the right leg: baseline hemiparesis, noted in the right arm: baseline hemiparesis, ROM: full active range of motion, in the left arm and left leg, Circulation is intact in all extremities. 04:22 Neuro: Orientation: unable to test, baseline non verbal, Mentation: unable to test, baseline non verbal, Memory: unable to test, baseline non verbal, Cranial nerves: unable to test, baseline non verbal, Cerebellar function: unable to test, Motor: right side hemiparesis, Gait: not tested. Vital Signs: 04:01 BP 143 / 79; Pulse 82; Resp 18; Temp 99.9(TE); Pulse Ox 100% on R/A; Weight 54.43 kg; lp1 04:30 BP 129 / 79; Pulse 80; Resp 18; Pulse Ox 100% on R/A; wh 05:30 BP 118 / 67; Pulse 72; Resp 18; Pulse Ox 99% on R/A; wh 07:28 BP 123 / 75; Pulse 86; Resp 16; Pulse Ox 100% ; bp 09:30 BP 128 / 70; Pulse 80; Resp 16; Temp 98.9; Pulse Ox 99% ; bp MDM: 05:50 Differential Diagnosis: Bronchitis Influenza Upper Respiratory Infection Allergic [facility] Rhinitis Viral Syndrome. Data reviewed: vital signs, nurses notes, EMS record, lab test result(s), Flu: negative radiologic studies, plain films. Data interpreted: Pulse oximetry: on room air is 99 %. Interpretation: normal. Counseling: I had a detailed discussion with the patient and/or guardian regarding: the historical points, exam findings, and any diagnostic results supporting the discharge/admit diagnosis, lab results, radiology results, the need for outpatient follow up, to return to the emergency department if symptoms worsen or persist or if there are any questions or concerns that arise at home. 05:51 Patient medically screened. [facility] 03/10 04:21 Order name: Influenza Screen (a \T\ B); Complete Time: 06:20 [facility] 03/10 04:21 Order name: COVID-19 [facility] 03/10 04:21 Order name: Chest Single View XRAY [facility] Administered Medications: No medications were administered Disposition: 03/10/20 05:51 Discharged to Home. Impression: Cough. - Condition is Stable. - Discharge Instructions: Cough, Adult, [id number]. - Medication Reconciliation Form, Thank You Letter, Antibiotic Education, Prescription Opioid Use form. - Follow up: Private Physician; When: 1 - 2 days; Reason: Worsening of condition, Recheck today's complaints, Continuance of care, Re-evaluation by your physician. - Problem is new. - Symptoms have improved. Signatures: Dispatcher [employer] EDMS Nikki Vail, RN RN lp1 Suleman Sousa RN RN bp Harvey Coronado MD MD 7 Corrections: (The following items were deleted from the chart) 09:57 05:51 03/10/2020 05:51 Discharged to Home. Impression: Cough. Condition is Stable. bp Forms are Medication Reconciliation Form, Thank You Letter, Antibiotic Education, Prescription Opioid Use. Follow up: Private Physician; When: 1 - 2 days; Reason: Worsening of condition, Recheck today's complaints, Continuance of care, Re-evaluation by your physician. Problem is new. Symptoms have improved. [facility]
--- NOTE | 2020-03-10 05:52 | ER ---
Nurse's Notes [facility] Name: Funmilayo Mcmillan Age: 60 yrs Sex: Female : 1960 Arrival Date: 03/10/2020 Time: 03:43 Bed 19 Private MD: Diagnosis: Cough Presentation: 03/10 03:35 Chief complaint: EMS states: Called for patient for having cough, congestion that began lp1 03/09/20 in AM; Daughter reports unsure if patient is in pain; patient has hx of CVA with non-verbal, right sided deficits. 03:35 Method Of Arrival: EMS: [facility] lp1 03:35 Coronavirus screen: Client denies travel out of the [place] in the last 14 days. At this lp1 time, the client does not indicate any symptoms associated with coronavirus-19. Ebola Screen: No symptoms or risks identified at this time. Risk Assessment: Do you want to hurt yourself or someone else? Patient reports no desire to harm self or others. Onset of symptoms was March 09, 2020. 03:35 Acuity: EDNA 3 lp1 04:01 Initial Sepsis Screen: Does the patient meet any 2 criteria? No. Patient's initial lp1 sepsis screen is negative. Does the patient have a suspected source of infection? No. Patient's initial sepsis screen is negative. Historical: - Allergies: 04:00 No Known Allergies; lp1 - Home Meds: 04:00 amlodipine 10 mg tab 1 tab once daily [Active]; aspirin 81 mg Oral chew 1 tab once lp1 daily [Active]; atorvastatin 40 mg Oral tab 1 tab once daily [Active]; clopidogrel 75 mg Oral tab 1 tab once daily [Active]; famotidine 20 mg Oral tab 1 tab every 12 hours [Active]; levetiracetam 100 mg/mL Oral soln 705 mL 2 times per day [Active]; lisinopril 40 mg Oral tab 1 tab once daily [Active]; Risperdal 0.5 mg Oral tab 2 times per day [Active]; - PMHx: 04:00 Atrial Fib; CVA; Depression; Hyperlipidemia; Hypertension; lp1 - PSHx: 04:01 Feeding tube; lp1 - Immunization history:: Adult Immunizations up to date. - Social history:: Smoking status: unknown. Screenin:04 Abuse screen: Denies threats or abuse. Denies injuries from another. Nutritional lp1 screening: Patient has feeding tube per daughter . Tuberculosis screening: No symptoms or risk factors identified. 04:30 Fall Risk Secondary diagnosis (15 points) CVA. Assessment: 04:15 General: Appears in no apparent distress. Behavior is calm, cooperative, appropriate wh for age. Pain: Denies pain. Neuro: Level of Consciousness is awake, alert, obeys commands, Oriented to person, place, time. Cardiovascular: Heart tones S1 S2. Respiratory: Airway is patent Respiratory effort is even, unlabored, Respiratory pattern is regular, symmetrical, Breath sounds are clear bilaterally. Parent/caregiver reports the patient having cough that is. GI: Abdomen is flat, non-distended. : No signs and/or symptoms were reported regarding the genitourinary system. : Rogers in place. EENT: No signs and/or symptoms were reported regarding the EENT system. Derm: Skin is intact. Musculoskeletal: Circulation, motion, and sensation intact. 05:30 Reassessment: Patient appears in no apparent distress at this time. No changes from previously documented assessment. Patient and/or family updated on plan of care and expected duration. Pain level reassessed. Patient is alert, oriented x 3, equal unlabored respirations, skin warm/dry/pink. 06:15 Reassessment: Patient appears in no apparent distress at this time. PT with DC order, wh per daughter Pt cannot travel by car or sit in a wheel chair for prolonged period of time, daughter states she need to travel via ambulance per PCP advise, and stated last time Pt was here last month Pt as brought home via ambulance. Notified Charge Nurse. 07:00 Reassessment: RECD REPORT FROM TROY URIOSTEGUI. 60YO WF P/W COUGH, H/O CVA WITH RESIDUAL AMS bp AND DECREASED LOC. PT NEURO STATUS AT BASELINE. D/C ON HOLD PENDING TRANSPORT ARRANGEMENT. 07:28 Reassessment: [facility] TRANSPORT PENDING, ETA 2HR. bp 09:56 Reassessment: [facility] AT B/S FOR TRANSPORT. bp Vital Signs: 04:01 BP 143 / 79; Pulse 82; Resp 18; Temp 99.9(TE); Pulse Ox 100% on R/A; Weight 54.43 kg; lp1 04:30 BP 129 / 79; Pulse 80; Resp 18; Pulse Ox 100% on R/A; wh 05:30 BP 118 / 67; Pulse 72; Resp 18; Pulse Ox 99% on R/A; wh 07:28 BP 123 / 75; Pulse 86; Resp 16; Pulse Ox 100% ; bp 09:30 BP 128 / 70; Pulse 80; Resp 16; Temp 98.9; Pulse Ox 99% ; bp ED Course: 03:43 Patient arrived in ED. am2 03:59 Triage completed. lp1 03:59 Arm band placed on. lp1 04:09 Harvey Coronado MD is Attending Physician. 7 04:30 Patient has correct armband on for positive identification. Bed in low position. Call wh light in reach. Side rails up X 1. Pulse ox on. NIBP on. 05:00 Chest Single View XRAY In Process Unspecified. EDMS 05:38 Troy Arce is Primary Nurse. 07:27 As per demands of pt family, ambulance transportation has been arranged with [place] [id number] Ambulance transport company. At this time, ambulance ETA is scheduled for 929MAR 04. 07:30 No provider procedures requiring assistance completed. Patient did not have IV access bp during this emergency room visit. Administered Medications: No medications were administered Outcome: 05:51 Discharge ordered by . [facility] 09:57 Discharged to home via ambulance. bp 09:57 Condition: stable 09:57 Discharge instructions given to patient, family, Instructed on discharge instructions, follow up and referral plans. Demonstrated understanding of instructions, follow-up care. 09:57 Patient left the ED. bp Addendum: 03/12/2020 20:30 Addendum: COVID-19 Result: Negative result given to RN to notify pt. Contacted by: Dr. haja Cisneros. Notified pt of negative COVID 19 swab results. Pt advised that even with a negative test result they should remain in isolation until symptom free for 3 days without medication. Pt also advised to return to the ED for worsening symptoms. Signatures: Dispatcher [employer] EDNY Leslye Yang, RN Diogenes Campos 1 Nikki Vail RN RN 1 Yu Richardson am2 Troy Arce Suleman Sousa RN RN Harvey Coronado MD MD [facility]
[2020-03-10 10:09] VITALS: BP 128/70; TEMP 98.9; O2SAT 99
--- NOTE | 2020-03-10 14:10 | RAD REPORT ---
EXAM DESCRIPTION: X-ray single view chest. CLINICAL HISTORY: 60 years Female, COUGH COMPARISON: None. TECHNIQUE: Single portable x-ray view of the chest performed on 03/10/2020 at 4:51 AM FINDINGS: The lungs are well expanded and are clear. There is no evidence of a pneumothorax. The cardiac silhouette is normal in size and configuration. The mediastinal contours are normal. No acute osseous abnormality is identified. There are old right-sided rib fractures. No acute soft tissue abnormalities are seen. Lines and tubes: None. IMPRESSION: No evidence of acute intrathoracic disease. Electronically signed by: Katiana Mccurdy DO 03/10/2020 5:36 AM CAR BODY INSPECTOR Due to temporary technical issues with the PACS/Fluency reporting system, reports are being signed by the in house radiologists without review as a courtesy to insure prompt reporting. The interpreting radiologist is fully responsible for the content of the report
== END 2020-03-10 09:57 | disposition home or self-care (01) ==
LOC: ER 03:36
DX: R05 Cough (principal); I10 Essential (primary) hypertension; E78.5 Hyperlipidemia, unspecified; I48.91 Unspecified atrial fibrillation; F32.9 Major depressive disorder, single episode, unspecified; Z86.73 Personal history of transient ischemic attack (TIA), and cerebral infarction without residual deficits; Z20.828 Contact with and (suspected) exposure to other viral communicable diseases
CPT/HCPCS: 87804 ×2; 71045; 99284; U0002

== ENCOUNTER 2020-05-13 17:06 | Emergency (ER) | payer MEDICAID ==
--- OUTSIDE RECORDS SUMMARY | 2020-05-13 17:08 | XMS REPORT | Continuity of Care Document ---
:1960 Author Organization [facility] t Address [address] [place] [address] Care Team Providers Name Role Phone Zeke Blount LMSW Attending Clinician Problems This patient has no known problems. Allergies, Adverse Reactions, Alerts This patient has no known allergies or adverse reactions. Medications This patient has no known medications. Procedures This patient has no known procedures. Encounters Start End Encounter Admission Attending Care Care Encounter Source Date/Time Date/Time Type Type Clinicians Facility Department ID 2020-05-11 2020-05-11 Patient Jose Alejandro ILBONILLA [id number] 18 00:00:00 00:00:00 Outreach Nikki Askew [id number] [place] [id number] Professio [phone] nal [facility] Building 2020-05-02 2020-05-02 Patient Jose Alejandro ILBONILLA [id number] 18 00:00:00 00:00:00 Outreach Nikki Askew [id number] [place] [id number] Professio [phone] [address] Results This patient has no known results.
[2020-05-13] MEDS ORDERED: NA CHLORIDE 0.9% 1,000 ML ONE (18:00)
[2020-05-13 18:09] LABS: Absolute Lymphocytes (CBC) 1.7 K/uL (0.7-4.9); Basophils % 1.1 % (0-1.3); Hematocrit 38.8 % (36.0-45.0); MPV 9.9 fL (7.6-11.3); RBC Red Blood Cell Count 4.39 M/uL (3.86-4.86)
[2020-05-13 18:16] LABS: Protime INR 1.01
[2020-05-13 18:30] LABS: ALT/SGPT 18 U/L (12-78); AST/SGOT 8 U/L (15-37); Albumin 3.3 g/dL (3.4-5.0); Alkaline Phosphatase 69 U/L (45-117); BUN Blood Urea Nitrogen 15 mg/dL (7-18); Bicarbonate 26 mmol/L (21-32); Bilirubin Direct < 0.1 mg/dL (0-0.2); Bilirubin Total 0.2 mg/dL (0.2-1.0); Glucose Level 143 mg/dL (74-106); Lipase 157 U/L (73-393); Magnesium 1.9 mg/dL (1.8-2.4); NT PRO-BNP 901 pg/mL (<125); Potassium 3.3 mmol/L (3.5-5.1); Protein, Total 7.4 g/dL (6.4-8.2); Sodium Level 141 mmol/L (136-145); Troponin (Emerg Dept Use Only) < 0.02 ng/mL (0.0-0.045)
[2020-05-13] MEDS ORDERED: CEFTRIAXONE/SWI 1gm 1 GM/10 ML SYR ONE (18:44)
--- NOTE | 2020-05-13 18:57 | EDPHYS ---
Physician Documentation [facility] Name: Funmilayo Mcmillan Age: 60 yrs Sex: Female : 1960 Arrival Date: 05/13/2020 Time: 17:11 Bed 17 Private MD: ED Physician Orlando Cisneros HPI: 05/13 17:41 This 60 yrs old Female presents to ER via EMS with complaints of weakness and edgar an . 17:41 weakness, zheng and peg need addressing. Onset: The symptoms/episode began/occurred edgar today. Severity of symptoms: At their worst the symptoms were mild in the emergency department the symptoms are unchanged. The patient has experienced similar episodes in the past, several times. Historical: - Allergies: 17:12 No Known Allergies; ss - PMHx: 17:12 Atrial Fib; CVA; Depression; Hyperlipidemia; Hypertension; indwelling zheng; ss - PSHx: 17:12 Feeding tube; ss - Immunization history:: Adult Immunizations up to date. - Social history:: Smoking status: Patient/guardian denies using tobacco, but has a distant history of tobacco abuse. - Family history:: not pertinent. ROS: 17:41 Constitutional: Negative for fever, chills, and weight loss, Eyes: Negative for injury, edgar pain, redness, and discharge, ENT: Negative for injury, pain, and discharge, Neck: Negative for injury, pain, and swelling, Cardiovascular: Negative for chest pain, palpitations, and edema, Respiratory: Negative for shortness of breath, cough, wheezing, and pleuritic chest pain, Back: Negative for injury and pain, MS/Extremity: Negative for injury and deformity, Skin: Negative for injury, rash, and discoloration, Psych: Negative for depression, anxiety, suicide ideation, homicidal ideation, and hallucinations, Allergy/Immunology: Negative for hives, rash, and allergies, Endocrine: Negative for neck swelling, polydipsia, polyuria, polyphagia, and marked weight changes, Hematologic/Lymphatic: Negative for swollen nodes, abnormal bleeding, and unusual bruising. 17:41 Abdomen/GI: Positive for abdominal pain, of the left upper quadrant, peg site. Exam: 17:41 Constitutional: This is a well developed, well nourished patient who is awake, alert, edgar and in no acute distress. Head/Face: Normocephalic, atraumatic. Eyes: Pupils equal round and reactive to light, extra-ocular motions intact. Lids and lashes normal. Conjunctiva and sclera are non-icteric and not injected. Cornea within normal limits. Periorbital areas with no swelling, redness, or edema. ENT: Nares patent. No nasal discharge, no septal abnormalities noted. Tympanic membranes are normal and external auditory canals are clear. Oropharynx with no redness, swelling, or masses, exudates, or evidence of obstruction, uvula midline. Mucous membranes moist. Neck: Trachea midline, no thyromegaly or masses palpated, and no cervical lymphadenopathy. Supple, full range of motion without nuchal rigidity, or vertebral point tenderness. No Meningismus. Chest/axilla: Normal chest wall appearance and motion. Nontender with no deformity. No lesions are appreciated. Cardiovascular: Regular rate and rhythm with a normal S1 and S2. No gallops, murmurs, or rubs. Normal PMI, no JVD. No pulse deficits. Respiratory: Lungs have equal breath sounds bilaterally, clear to auscultation and percussion. No rales, rhonchi or wheezes noted. No increased work of breathing, no retractions or nasal flaring. Back: No spinal tenderness. No costovertebral tenderness. Full range of motion. Skin: Warm, dry with normal turgor. Normal color with no rashes, no lesions, and no evidence of cellulitis. MS/ Extremity: Pulses equal, no cyanosis. Neurovascular intact. Full, normal range of motion. Neuro: Awake and alert, GCS 15, oriented to person, place, time, and situation. Cranial nerves II-XII grossly intact. Motor strength 5/5 in all extremities. Sensory grossly intact. Cerebellar exam normal. Normal gait. Psych: Awake, alert, with orientation to person, place and time. Behavior, mood, and affect are within normal limits. 17:41 Abdomen/GI: Inspection: abdomen appears normal, Bowel sounds: normal, Palpation: nontender, Liver: no appreciated palpable abnormalities, Hernia: not appreciated. 19:03 ECG was reviewed by the Attending Physician. edgar Vital Signs: 17:12 BP 113 / 84; Pulse 89; Resp 17; Pulse Ox 100% on R/A; ss 18:46 BP 119 / 54; Pulse 83; Resp 15; Pulse Ox 99% on R/A; hb 19:30 BP 140 / 71; Pulse 62; Resp 18; Pulse Ox 99% on R/A; jb4 MDM: 17:29 Patient medically screened. [facility] 17:46 Data reviewed: vital signs, nurses notes, lab test result(s), EKG, radiologic studies, edgar plain films. 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 Test interpretation: by ED physician or midlevel provider: ECG, plain radiologic studies. 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 05/13 17:41 Order name: Basic Metabolic Panel [facility] 05/13 17:41 Order name: CBC with Diff [facility] 05/13 17:41 Order name: LFT's [facility] 05/13 17:41 Order name: Magnesium [facility] 05/13 17:41 Order name: NT PRO-BNP [facility] 05/13 17:41 Order name: PT-INR [facility] 05/13 17:41 Order name: Troponin (emerg Dept Use Only); Complete Time: 18:51 [facility] 05/13 17:41 Order name: Urine Culture [facility] 05/13 17:41 Order name: Lipase; Complete Time: 18:51 [facility] 05/13 17:41 Order name: Basic Metabolic Panel; Complete Time: 18:51 EDPA 05/13 17:41 Order name: CBC with Automated Diff; Complete Time: 18:29 EDPA 05/13 17:41 Order name: Liver (Hepatic) Function; Complete Time: 18:51 EDPA 05/13 17:41 Order name: Magnesium; Complete Time: 18:51 EDPA 05/13 17:41 Order name: NT PRO-BNP; Complete Time: 18:51 EDPA 05/13 17:41 Order name: XRAY Chest (1 view) [facility] 05/13 17:41 Order name: EKG; Complete Time: 17:41 [facility] 05/13 17:41 Order name: Cardiac monitoring; Complete Time: 18:02 [facility] 05/13 17:41 Order name: EKG - Nurse/Tech; Complete Time: 18:26 [facility] 05/13 17:41 Order name: IV Saline Lock; Complete Time: 18:02 [facility] 05/13 17:41 Order name: Labs collected and sent; Complete Time: 18:02 [facility] 05/13 17:41 Order name: O2 Per Protocol; Complete Time: 18:02 [facility] 05/13 17:41 Order name: O2 Sat Monitoring; Complete Time: 18:02 [facility] 05/13 17:41 Order name: Wound Care: peg site; Complete Time: 18:01 [facility] 05/13 17:41 Order name: Protime (+INR); Complete Time: 18:29 EDPA 05/13 18:02 Order name: Urine Dipstick--Ancillary (enter results) eb EC:03 Rate is 72 beats/min. Rhythm is regular. QRS Matthews is Normal. DC interval is normal. QRS edgar interval is prolonged at 142 msec. QT interval is normal. No Q waves. T waves are Normal. No ST changes noted. Clinical impression: No evidence of ischemia. Interpreted by me. Reviewed by me. Administered Medications: 17:50 Drug: NS 0.9% 500 ml Route: IV; Rate: bolus; Site: right antecubital; hb 18:36 Follow up: Response: No adverse reaction; IV Status: Completed infusion; IV Intake: hb 500ml 18:36 Drug: Rocephin 1 grams Route: IV; Rate: per protocol; Site: right antecubital; hb 18:45 Drug: NS 0.9% 1000 ml Route: IV; Rate: 125 ml/hr; Site: right antecubital; hb 19:33 Drug: Potassium Effervescent Tablet 25 mEq Route: PO; jb4 Disposition: 05/13/20 18:56 Discharged to Home. Impression: Gastrostomy status, Gastrostomy complications, Weakness, Urinary tract infection, site not specified, Hypokalemia. - Condition is Stable. - Discharge Instructions: Urinary Tract Infection, Adult, Weakness, Fatigue, Urinary Tract Infection, Adult, Clmo-qa-Keaq, Gastrostomy Tube Home Guide, Adult, Weakness, Ntci-uh-Teno, PEG Tube Home Guide, Nhli-al-Bcwi, Hypokalemia. - Prescriptions for sulfamethoxazole- trimethoprim 200-40 mg/5 mL Oral Suspension - take 20 milliliter by ORAL route every 12 hours for 5 days; 200 milliliter. - Medication Reconciliation Form, Thank You Letter, Antibiotic Education, Prescription Opioid Use form. - Follow up: Private Physician; When: 2 - 3 days; Reason: Recheck today's complaints, Continuance of care, Re-evaluation by your physician. Follow up: Cami Shafer MD; When: 5 - 6 days; Reason: Recheck today's complaints, Continuance of care, Re-evaluation by your physician. Follow up: Ronnie Enriquez MD; When: 2 - 3 days; Reason: Recheck today's complaints, Re-evaluation by your physician. - Problem is new. - Symptoms have improved. Signatures: Dispatcher [employer] EDMS Orlando Cisneros MD MD cha Smirch, Shelby, RN RN ss Zonia Samaniego RN RN Guerrero Bhandari RN RN jb4 Corrections: (The following items were deleted from the chart) 18:58 18:56 05/13/2020 18:56 Discharged to Home. Impression: Gastrostomy status; Gastrostomy edgar complications; Weakness; Urinary tract infection, site not specified. Condition is Stable. Forms are Medication Reconciliation Form, Thank You Letter, Antibiotic Education, Prescription Opioid Use. Follow up: Private Physician; When: 2 - 3 days; Reason: Recheck today's complaints, Continuance of care, Re-evaluation by your physician. Problem is new. Symptoms have improved. [facility] 19:00 18:58 05/13/2020 18:56 Discharged to Home. Impression: Gastrostomy status; Gastrostomy edgar complications; Weakness; Urinary tract infection, site not specified; Hypokalemia. Condition is Stable. Discharge Instructions: Urinary Tract Infection, Adult, Weakness, Fatigue, Urinary Tract Infection, Adult, Kdus-jc-Vwqb, Gastrostomy Tube Home Guide, Adult, Weakness, Tgqc-nk-Bacc, PEG Tube Home Guide, Fdaq-re-Syec, Hypokalemia. Prescriptions for sulfamethoxazole-trimethoprim 200-40 mg/5 mL Oral Suspension - take 20 milliliter by ORAL route every 12 hours for 5 days; 200 milliliter. and Forms are Medication Reconciliation Form, Thank You Letter, Antibiotic Education, Prescription Opioid Use. Follow up: Private Physician; When: 2 - 3 days; Reason: Recheck today's complaints, Continuance of care, Re-evaluation by your physician. Problem is new. Symptoms have improved. edgar 20:04 19:00 05/13/2020 18:56 Discharged to Home. Impression: Gastrostomy status; Gastrostomy jb4 complications; Weakness; Urinary tract infection, site not specified; Hypokalemia. Condition is Stable. Discharge Instructions: Urinary Tract Infection, Adult, Weakness, Fatigue, Urinary Tract Infection, Adult, Ximh-cs-Xoiz, Gastrostomy Tube Home Guide, Adult, Weakness, Ntzj-rp-Ucsl, PEG Tube Home Guide, Dnjt-cg-Oxqy, Hypokalemia. Prescriptions for sulfamethoxazole-trimethoprim 200-40 mg/5 mL Oral Suspension - take 20 milliliter by ORAL route every 12 hours for 5 days; 200 milliliter. and Forms are Medication Reconciliation Form, Thank You Letter, Antibiotic Education, Prescription Opioid Use. Follow up: Private Physician; When: 2 - 3 days; Reason: Recheck today's complaints, Continuance of care, Re-evaluation by your physician. Follow up: Cami Shafer; When: 5 - 6 days; Reason: Recheck today's complaints, Continuance of care, Re-evaluation by your physician. Follow up: Ronnie Enriquez; When: 2 - 3 days; Reason: Recheck today's complaints, Re-evaluation by your physician. Problem is new. Symptoms have improved. edgar
--- NOTE | 2020-05-13 18:57 | ER ---
Nurse's Notes [facility] Name: Funmilayo Mcmillan Age: 60 yrs Sex: Female : 1960 Arrival Date: 05/13/2020 Time: 17:11 Bed 17 Private MD: Diagnosis: Gastrostomy status;Gastrostomy complications;Weakness;Urinary tract infection, site not specified;Hypokalemia Presentation: 05/13 17:12 Chief complaint: EMS states: Sediment in zheng tube and mold around G-tube since ss yesterday. "They need more help at home. Home Health isn't doing their job and they need help getting her into a [facility].". Coronavirus screen: Client denies travel out of the [place] in the last 14 days. Ebola Screen: Patient denies exposure to infectious person. Patient denies travel to an Ebola-affected area in the 21 days before illness onset. Initial Sepsis Screen: Does the patient meet any 2 criteria? No. Patient's initial sepsis screen is negative. Does the patient have a suspected source of infection? No. Patient's initial sepsis screen is negative. Risk Assessment: Do you want to hurt yourself or someone else? Patient reports no desire to harm self or others. Onset of symptoms is unknown. 17:12 Method Of Arrival: EMS: [facility] 17:12 Acuity: EDNA 3 ss Historical: - Allergies: 17:12 No Known Allergies; ss - PMHx: 17:12 Atrial Fib; CVA; Depression; Hyperlipidemia; Hypertension; indwelling zheng; ss - PSHx: 17:12 Feeding tube; ss - Immunization history:: Adult Immunizations up to date. - Social history:: Smoking status: Patient/guardian denies using tobacco, but has a distant history of tobacco abuse. - Family history:: not pertinent. Screenin:01 Abuse screen: Denies threats or abuse. Denies injuries from another. Nutritional hb screening: No deficits noted. Tuberculosis screening: No symptoms or risk factors identified. Fall Risk Total Cloud Fall Scale indicates High Risk Score (45 or more points). Fall prevention measures have been instituted. Side Rails Up X 2 Frequent Obs/Assessments Occuring Family Present and informed to notify staff if the need to leave the bedside As available patient and family educated on Fall Prevention Program and Strategies. Assessment: 18:01 General: Appears in no apparent distress. Behavior is calm, cooperative. Pain: Denies hb pain. Neuro: Level of Consciousness is awake, alert, obeys commands, Oriented to person, place, situation. Cardiovascular: Capillary refill < 3 seconds Patient's skin is warm and dry. Respiratory: Respiratory effort is even, unlabored, Respiratory pattern is regular, symmetrical. GI: Parent/caregiver reports the patient having PEG site reddened. : Parent/caregiver report the patient having sediments in zheng collection bag. EENT: No signs and/or symptoms were reported regarding the EENT system. Derm: Skin is pink, warm \\T\\ dry. Musculoskeletal: No signs and/or symptoms reported regarding the musculoskeletal system. 18:46 Reassessment: Patient appears in no apparent distress at this time. No changes from hb previously documented assessment. Patient and/or family updated on plan of care and expected duration. Pain level reassessed. 19:33 Reassessment: Patient appears in no apparent distress at this time. Patient and/or jb4 family updated on plan of care and expected duration. Pain level reassessed. PT remains in bed. Daughter verbalized understanding of D/c and follow up instructions. PEG tube flows with ease. IV D/c'ed. respirations remain even and unlabored. Pt awaiting ride home via EMS. Vital Signs: 17:12 BP 113 / 84; Pulse 89; Resp 17; Pulse Ox 100% on R/A; ss 18:46 BP 119 / 54; Pulse 83; Resp 15; Pulse Ox 99% on R/A; hb 19:30 BP 140 / 71; Pulse 62; Resp 18; Pulse Ox 99% on R/A; jb4 ED Course: 17:11 Patient arrived in ED. ss 17:12 Arm band placed on right wrist. ss 17:13 Triage completed. ss 17:29 Orlando Cisneros MD is Attending Physician. edgar 17:42 Zonia Samaniego, GILA is Primary Nurse. hb 17:50 Inserted saline lock: 22 gauge in right antecubital area, using aseptic technique. hb Blood collected. 17:57 Dressings: Non-Woven Drain Sponge (2x) placed around peg tube. Gauze taped down on jp3 edges using foam tape. Wound care: located on left upper quadrant was cleaned with Hibiclens, Patient tolerated well. Cleaned area around Pt peg tube. 18:01 Patient has correct armband on for positive identification. Placed in gown. Bed in low hb position. Side rails up X2. 18:27 EKG done, by ED staff, reviewed by Orlando Cisneros MD. jp3 18:59 XRAY Chest (1 view) In Process Unspecified. EDMS 18:59 Cami Shafer MD is Referral Physician. [facility] 18:59 Ronnie Enriquez MD is Referral Physician. edgar 19:39 No provider procedures requiring assistance completed. IV discontinued, intact, jb4 bleeding controlled, No redness/swelling at site. Pressure dressing applied. Administered Medications: 17:50 Drug: NS 0.9% 500 ml Route: IV; Rate: bolus; Site: right antecubital; hb 18:36 Follow up: Response: No adverse reaction; IV Status: Completed infusion; IV Intake: hb 500ml 18:36 Drug: Rocephin 1 grams Route: IV; Rate: per protocol; Site: right antecubital; hb 18:45 Drug: NS 0.9% 1000 ml Route: IV; Rate: 125 ml/hr; Site: right antecubital; hb 19:33 Drug: Potassium Effervescent Tablet 25 mEq Route: PO; jb4 Intake: 18:36 IV: 500ml; Total: 500ml. hb Outcome: 18:56 Discharge ordered by . edgar 19:39 Discharged to home via EMS jb4 19:39 Condition: stable 19:39 Discharge instructions given to family, Instructed on discharge instructions, follow up and referral plans. medication usage, Demonstrated understanding of instructions, follow-up care, medications, Prescriptions given X 1. 20:04 Patient left the ED. jb4 Addendum: 05/16/2020 09:50 Addendum: Culture Results: Positive urine culture. Patient was not prescribed s v antibiotics at discharge. Report given to EMMANUEL for further evaluation and then to secretary to the vice president for follow up with patient. Phone call Attempt #1 succussful Prescription called-in to pharmacy of choice. [facility]. Signatures: Dispatcher [employer] EDNichelle Holden RN RN sv Anderson, Corey, MD MD cha Smirch, Shelby, RN RN ss Baxter, Heather, RN RN Guerrero Bhandari RN RN jb4 Pisarski, Wilberto jp3
--- NOTE | 2020-05-13 19:22 | RAD REPORT ---
EXAM DESCRIPTION: Loulou Single View05/13/2020 6:59 pm CLINICAL HISTORY: Cough COMPARISON: February 2020 FINDINGS: A nipple shadow overlies the left lung base. The lungs appear clear of acute infiltrate. The heart is normal size IMPRESSION: No acute abnormalities displayed
[2020-05-13] MEDS ORDERED: POTASSIUM 25 MEQ EFFERV TAB ONE (19:37)
[2020-05-13 20:14] LABS: Urine Blood 2+ (NEG); Urine Glucose NEGATIVE (NEG); Urine Protein TRACE (NEG); Urine Specific Gravity 1.005 (1.005-1.030); Urine pH 6.5 (5.0-7.0)
[2020-05-14 00:36] VITALS: O2SAT 99
[2020-05-14 00:37] VITALS: BP 140/71
--- NOTE | 2020-05-14 17:10 | EKG ---
Test Date: 2020-05-13 Test Time: 18:14:38 Assemblies And Installations Inspector: ALVINO MEASUREMENT RESULTS: Intervals: Rate: 72 WV: 138 QRSD: 142 QT: 436 QTc: 477 Kersey: P: 74 WV: 138 QRS: 46 T: 229 INTERPRETIVE STATEMENTS: Normal sinus rhythm Left bundle branch block Abnormal ECG Compared to ECG 10/28/2004 09:34:00 No significant changes Electronically Signed On 05-14-20 17:06:22 PARTS INSPECTOR by Jason Felix
== END 2020-05-13 20:04 | disposition home or self-care (01) ==
LOC: ER 17:06
DX: N39.0 Urinary tract infection, site not specified (principal); E87.6 Hypokalemia; Z93.1 Gastrostomy status; I10 Essential (primary) hypertension
CPT/HCPCS: 96361; 93005; 87088; 85025; 87086; 80048; 36415; 83735; 85610; 80076; 87077 ×2; 87186 ×2; 81003; 84484; 83690; 83880; 71045; 96374; 99284; J0696; J7030

== ENCOUNTER 2020-06-05 12:29 | Observation (INO) | payer MEDICAID ==
--- OUTSIDE RECORDS SUMMARY | 2020-06-05 12:31 | XMS REPORT | Continuity of Care Document ---
:[address] [facility] t Address [address] [place] [address] Care Team Providers Name Role Phone Radha PINO Attending Clinician Zeke Blount LMSW Attending Clinician Gatito Chauhan MD Attending Clinician Gamaliel SOLIS Attending Clinician Beverley Denson MD Attending Clinician Problems This patient has no known problems. Allergies, Adverse Reactions, Alerts This patient has no known allergies or adverse reactions. Medications This patient has no known medications. Procedures This patient has no known procedures. Encounters Start End Encounter Admission Attending Care Care Encounter Source Date/Time Date/Time Type Type Clinicians Facility Department ID 2020-06-05 2020-06-05 Telephone Radha [facility] [id number] 00:00:00 00:00:00 Alexander Askew [id number] Jocelyne [id number] Xiomara [id number] [facility] 044 Building 2020-06-04 2020-06-04 Patient Jose Alejandro [facility] [id number] 00:00:00 00:00:00 Outreach Nikki Askew [id number] Jocelyne [id number] Xiomara [id number] [facility] [address] [facility] 2020-05-31 2020-05-31 [facility] [id number] 00:00:00 00:00:00 Bev Asekw [id number] [place] [id number] Profess[facility] [id number] [address] 2020-05-30 2020-05-30 [facility] [id number] 15:05:50 16:14:27 Visit Gisela Askew [id number] [place] [id number] Profess[facility] [phone] [address] 2020-03-05 2020-03-05 Telephone MACIE Denson [id number] 00:00:00 00:00:00 [facility] [id number] [facility] [id number] a [id number] Results This patient has no known results.
--- NOTE | 2020-06-05 14:30 | ER ---
Nurse's Notes [facility] Name: Funmilayo Mcmillan Age: 60 yrs Sex: Female : 1960 Arrival Date: 06/05/2020 Time: 12:32 Bed 25 Private MD: Diagnosis: Displaced feeding tube - closed stoma;Dehydration Presentation: 06/05 12:33 Chief complaint: EMS states: PEG tube pulled out this morning. Coronavirus screen: At this time, the client does not indicate any symptoms associated with coronavirus-19. Ebola Screen: No symptoms or risks identified at this time. Initial Sepsis Screen: Does the patient meet any 2 criteria? No. Patient's initial sepsis screen is negative. Does the patient have a suspected source of infection? No. Patient's initial sepsis screen is negative. Risk Assessment: Do you want to hurt yourself or someone else? Patient reports no desire to harm self or others. Onset of symptoms was June 05, 2020. 12:33 Method Of Arrival: EMS: [facility] 12:33 Acuity: EDNA 3 hb Triage Assessment: 12:35 General: Appears in no apparent distress. Behavior is calm, cooperative. hb 13:38 Pain: Unable to use pain scale. FLACC scale score is 0 out of 10. EENT: No signs and/or hb symptoms were reported regarding the EENT system. Neuro: Level of Consciousness is awake, alert, obeys commands, Oriented to person. Cardiovascular: Patient's skin is warm and dry. Respiratory: Respiratory effort is even, unlabored, Respiratory pattern is regular, symmetrical. GI: No signs and/or symptoms were reported involving the gastrointestinal system. : No signs and/or symptoms were reported regarding the genitourinary system. Derm: Skin is pink, warm \T\ dry. Musculoskeletal: No signs and/or symptoms reported regarding the musculoskeletal system. Historical: - Allergies: 12:34 No Known Allergies; hb - Home Meds: 16:07 amlodipine 10 mg tab 1 tab once daily [Active]; aspirin 81 mg Oral chew 1 tab once hb daily [Active]; atorvastatin 40 mg Oral tab 1 tab once daily [Active]; clopidogrel 75 mg Oral tab 1 tab once daily [Active]; famotidine 20 mg Oral tab 1 tab every 12 hours [Active]; levetiracetam 100 mg/mL Oral soln 705 mL 2 times per day [Active]; lisinopril 40 mg Oral tab 1 tab once daily [Active]; Risperdal 0.5 mg Oral tab 2 times per day [Active]; - PMHx: 16:07 Atrial Fib; CVA; Depression; Hyperlipidemia; Hypertension; Indwelling zheng; hb - PSHx: 16:07 Feeding tube; hb - Immunization history:: Adult Immunizations up to date. - Social history:: Smoking status: unknown. - Family history:: not pertinent. - Hospitalizations: : No recent hospitalization is reported. Screenin:17 Abuse screen: Denies threats or abuse. Denies injuries from another. Nutritional hb screening: No deficits noted. Tuberculosis screening: No symptoms or risk factors identified. Fall Risk Total Cloud Fall Scale indicates Low Risk Score (25-44 pts). Fall prevention measures have been instituted. Side Rails Up X 2 Frequent Obs/Assesments occuring Family Present and informed to notify staff if they need to leave bedside As available Patient and Family Educated on Fall Prevention Program and strategies. Assessment: 13:45 General: see triage assessment . hb 15:00 Reassessment: Patient appears in no apparent distress at this time. No changes from hb previously documented assessment. Patient and/or family updated on plan of care and expected duration. Pain level reassessed. 16:15 Reassessment: Patient appears in no apparent distress at this time. No changes from hb previously documented assessment. Patient and/or family updated on plan of care and expected duration. Pain level reassessed. Vital Signs: 12:33 BP 156 / 90; Pulse 85; Resp 16; Temp 97.7; Pulse Ox 100% on R/A; Pain 0/10; hb 14:00 BP 150 / 86; Pulse 77; Resp 17; Pulse Ox 100% on R/A; hb 15:00 BP 161 / 94; Pulse 77; Resp 15; Pulse Ox 100% on R/A; hb ED Course: 12:32 Patient arrived in ED. hb 12:32 Wilfredo Ruff MD is Attending Physician. rn 12:34 Triage completed. hb 12:34 Arm band placed on. hb 13:17 Zonia Samaniego, GILA is Primary Nurse. hb 14:29 Arron Sparks MD is Hospitalizing Provider. rn 14:30 Inserted saline lock: 22 gauge in left antecubital area, using aseptic technique. Blood kj1 collected. 16:15 Patient has correct armband on for positive identification. hb 16:15 No provider procedures requiring assistance completed. Patient admitted, IV remains in hb place. 19:12 Primary Nurse role handed off by Zonia Samaniego, RN mw2 Administered Medications: 15:57 Drug: D5-1/2 NS with KCl 20 mEq/L 1000 ml Route: IV; Rate: 100 ml/hr; Site: left hb antecubital; Outcome: 14:29 Decision to Hospitalize by Provider. rn 16:15 Admitted to ER Hold. Please see [facility] for further documentation. hb 16:15 Condition: stable 16:15 Instructed on the need for admit. 22:04 Patient left the ED. mw2 Signatures: Wilfredo Ruff MD MD rn Baxter, Heather, RN RN Spencer Jorge mw2 Kristyn Saab kj1 Corrections: (The following items were deleted from the chart) 13:40 12:35 General: Appears in no apparent distress. Behavior is calm, cooperative, [facility]
--- NOTE | 2020-06-05 14:30 | EDPHYS ---
Physician Documentation [facility] Name: Funmilayo Mcmillan Age: 60 yrs Sex: Female : 1960 Arrival Date: 06/05/2020 Time: 12:32 Bed 25 Private MD: ED Physician Wilfredo Ruff HPI: 06/05 12:43 This 60 yrs old Female presents to ER via EMS with complaints of Displaced rn G-tube. 12:43 Reports pulled out feeding tube, 16 kazakh, today, accidental, patient with hx of CVA. rn No other complaints. . Onset: The symptoms/episode began/occurred just prior to arrival. It is unknown whether or not the patient has had similar symptoms in the past. The patient has not recently seen a physician. Historical: - Allergies: 12:34 No Known Allergies; hb - Home Meds: 16:07 amlodipine 10 mg tab 1 tab once daily [Active]; aspirin 81 mg Oral chew 1 tab once hb daily [Active]; atorvastatin 40 mg Oral tab 1 tab once daily [Active]; clopidogrel 75 mg Oral tab 1 tab once daily [Active]; famotidine 20 mg Oral tab 1 tab every 12 hours [Active]; levetiracetam 100 mg/mL Oral soln 705 mL 2 times per day [Active]; lisinopril 40 mg Oral tab 1 tab once daily [Active]; Risperdal 0.5 mg Oral tab 2 times per day [Active]; - PMHx: 16:07 Atrial Fib; CVA; Depression; Hyperlipidemia; Hypertension; Indwelling zheng; hb - PSHx: 16:07 Feeding tube; hb - Immunization history:: Adult Immunizations up to date. - Social history:: Smoking status: unknown. - Family history:: not pertinent. - Hospitalizations: : No recent hospitalization is reported. ROS: 12:43 Unable to obtain ROS due to patient's speech is incomprehensible. rn Exam: 12:43 Constitutional: Thin female, no acute distress Abdomen/GI: Abdomen soft, non-tender, rn + left upper quadrant stoma, no drainage Vital Signs: 12:33 BP 156 / 90; Pulse 85; Resp 16; Temp 97.7; Pulse Ox 100% on R/A; Pain 0/10; hb 14:00 BP 150 / 86; Pulse 77; Resp 17; Pulse Ox 100% on R/A; hb 15:00 BP 161 / 94; Pulse 77; Resp 15; Pulse Ox 100% on R/A; hb MDM: 12:32 Patient medically screened. rn 13:13 ED course: Stoma seems tight/small, unable to pass 16F without forcing it, will try rn smaller size. . 14:00 ED course: Consulted with Dr. Loja, will come and evaluate patient, and attempt to rn place smaller tube. . 14:27 Differential Diagnosis displaced feeding tube, dehydration. rn 14:28 Data reviewed: vital signs, nurses notes, and as a result, I will admit patient. rn Counseling: I had a detailed discussion with the patient and/or guardian regarding: the historical points, exam findings, and any diagnostic results supporting the discharge/admit diagnosis, the need for further work-up and treatment in the hospital. Response to treatment: There is no appreciated change of the patient's symptoms at this time. Admission orders: after a detailed discussion of the patient's condition and case, the admit orders are written by me. ED course: Dr. Loja unable to pass tube, will admit to [facility] after midnight, and Dr. Loja will replace feeding tube tomorrow. . 06/05 14:27 Order name: CBC with Diff; Complete Time: 15:23 rn 06/05 14:27 Order name: Basic Metabolic Panel; Complete Time: 15:23 rn 06/05 14:27 Order name: Protime (+inr); Complete Time: 15:23 rn 06/05 14:27 Order name: Ptt, Activated; Complete Time: 15:23 rn 06/05 16:00 Order name: COVID-19 : Document "Date of Symptom Onset" if Symptomatic. hb 06/05 16:52 Order name: CBC with Automated Diff EDMS 06/05 16:52 Order name: CBC with Automated Diff EDMS 06/05 16:53 Order name: Comprehensive Metabolic Panel EDMS 06/05 16:53 Order name: Comprehensive Metabolic Panel EDMS 06/05 16:53 Order name: Magnesium EDMS 06/05 16:53 Order name: Magnesium EDMS 06/05 16:53 Order name: Phosphorus EDMS 06/05 16:53 Order name: Phosphorus EDMS 06/05 14:27 Order name: IV Start; Complete Time: 15:16 rn 06/05 16:52 Order name: CONS Physician Consult EDWI 06/05 16:52 Order name: NPO EDWI 06/05 16:53 Order name: Protime (+INR) EDWI 06/05 16:53 Order name: Protime (+INR) EDWI 06/05 16:53 Order name: PTT, Activated Partial Thromb EDWI 06/05 16:53 Order name: PTT, Activated Partial Thromb EDWI 06/05 17:11 Order name: SARS-COV-2 RT PCR EDMS Administered Medications: 15:57 Drug: D5-1/2 NS with KCl 20 mEq/L 1000 ml Route: IV; Rate: 100 ml/hr; Site: left hb antecubital; Disposition: 06/05/20 14:29 Hospitalization ordered by Arron Sparks for Observation. Preliminary diagnosis are Displaced feeding tube - closed stoma, Dehydration. - Bed requested for Telemetry/MedSurg (observation). - Status is Observation. mw2 - Condition is Stable. - Problem is new. - Symptoms are unchanged. Signatures: Dispatcher [employer] EDWI Shawnee Vasquez Roman, MD MD rn Garcia, Cindy, RN RN cg Baxter, Heather, RN RN Spencer Jorge mw2 Corrections: (The following items were deleted from the chart) 16:28 16:00 CORONAVIRUS ordered. EDWI EDMS 16:51 14:29 Hospitalization Ordered by Arron Sparks MD for Observation. Preliminary bd diagnosis is Displaced feeding tube - closed stoma; Dehydration. Bed requested for Telemetry/MedSurg (observation). Status is Observation. Condition is Stable. Problem is new. Symptoms are unchanged. rn 20:35 16:51 06/05/2020 14:29 Hospitalization Ordered by Arron Sparks MD for Observation. cg Preliminary diagnosis is Displaced feeding tube - closed stoma; Dehydration. Bed requested for [facility] ER HOLD. Status is Observation. Condition is Stable. Problem is new. Symptoms are unchanged. bd 22:04 20:35 06/05/2020 14:29 Hospitalization Ordered by Arron Sparks MD for Observation. mw2 Preliminary diagnosis is Displaced feeding tube - closed stoma; Dehydration. Bed requested for Telemetry/MedSurg (observation). Status is Observation. Condition is Stable. Problem is new. Symptoms are unchanged. cg
[2020-06-05 14:50] LABS: Basophils % 0.8 % (0-1.3); Hematocrit 39.3 % (36.0-45.0); Lymphocytes % 28.9 % (15.3-44.8); MPV 9.8 fL (7.6-11.3); RBC Red Blood Cell Count 4.38 M/uL (3.86-4.86)
[2020-06-05 14:59] LABS: Protime INR 0.92
[2020-06-05 15:04] LABS: Potassium 4.2 mmol/L (3.5-5.1)
[2020-06-05] MEDS ORDERED: D5.45NS W/KCL 20MEQ 1,000 ML IV ONE (15:52)
[2020-06-05] MEDS ORDERED: ACETAMINOPHEN 500 MG TAB PO PRN (16:52)
[2020-06-05] MEDS ORDERED: ONDANSETRON 4 MG/2 ML VIAL IV PRN (16:52)
[2020-06-05] MEDS: D5 0.45 NS 1,000 ML IV SCH (17:00)
[2020-06-05 17:18] VITALS: BMI 17.0
[2020-06-05] MEDS ORDERED: D5 0.45 NS 1,000 ML IV ONE (17:44)
[2020-06-05] MEDS: HYDROMORPHONE HCL 1 MG/ML INJ IV PRN (20:48)
[2020-06-05] MEDS ORDERED: HYDROMORPHONE HCL 0.5 MG/0.5 ML INJ ONE (20:59)
[2020-06-06] MEDS: D5 0.45 NS 1,000 ML IV SCH ×4 (00:43→19:40)
[2020-06-06] MEDS: HYDROMORPHONE HCL 1 MG/ML INJ IV PRN ×3 (03:46→16:58)
[2020-06-06 06:16] LABS: Absolute Lymphocytes (CBC) 2.1 K/uL (0.7-4.9); Basophils % 0.7 % (0-1.3); Hematocrit 38.2 % (36.0-45.0); Lymphocytes % 25.4 % (15.3-44.8); RBC Red Blood Cell Count 4.26 M/uL (3.86-4.86)
[2020-06-06 06:26] LABS: ALT/SGPT 20 U/L (12-78); AST/SGOT 6 U/L (15-37); Albumin 3.3 g/dL (3.4-5.0); Alkaline Phosphatase 54 U/L (45-117); BUN Blood Urea Nitrogen 21 mg/dL (7-18); Bicarbonate 28 mmol/L (21-32); Bilirubin Total 0.3 mg/dL (0.2-1.0); Glucose Level 115 mg/dL (74-106); Sodium Level 143 mmol/L (136-145)
[2020-06-06 06:28] LABS: Protime INR 0.96
[2020-06-06] MEDS: Ringers Lactate 1,000 ML IV ONE ×2 (14:55→15:31)
[2020-06-06] MEDS ORDERED: LIDOCAINE 1% MPF 5 ML VIAL ONE (15:00)
[2020-06-06] MEDS ORDERED: propofoL 200 MG/20 ML VIAL IV ONE ×2 (15:00)
[2020-06-06] MEDS ORDERED: GLYCOPYRROLATE 0.2 MG/ML SYR ONE (15:01)
[2020-06-06] MEDS ORDERED: MIDAZOLAM HCL 2 MG/2 ML INJ ONE (15:10)
[2020-06-07] MEDS: HYDROMORPHONE HCL 1 MG/ML INJ IV PRN (04:34)
[2020-06-07] MEDS: D5 0.45 NS 1,000 ML IV SCH ×2 (04:35→08:49)
[2020-06-07 08:55] VITALS: O2SAT 100
[2020-06-07] MEDS ORDERED: JEVITY 1.2 CAL LIQUID 1,000 ML BOT RTH SCH (09:00)
--- NOTE | 2020-06-07 10:00 | P.HP ---
Certification for Inpatient Patient admitted to: Inpatient With expected LOS: >2 Midnights Patient will require the following post-hospital care: None Practitioner: I am a practitioner with admitting privileges, knowledge of patient current condition, hospital course, and medical plan of care. Services: Services provided to patient in accordance with Admission requirements found in Title 42 Section 412.3 of the Code of Federal Regulations Patient History Date of Service: 06/05/20 Reason for admission: Dysphagia History of Present Illness: Patient is a 60-year-old female who lives at home and ended up pulling out her PEG tube. She reaches for it throughout the day. She suffered a stroke and has aphasia. Patient came to the ED for further evaluation. Patient will be admitted and will get GI consultation for PEG tube placement. Allergies No Known Allergies Allergy (Verified 06/06/20 00:55) Home Medications: Amlodipine [Norvasc*] 1 tab PO DAILY 06/06/20 Aspirin 81 mg PO SEECOM 06/06/20 Atorvastatin Calcium 1 tab OSTOMY SEECOM 06/06/20 Clopidogrel Bisulfate [Plavix] 1 tab OSTOMY SEECOM 06/06/20 Famotidine 1 tab PO SEECOM 06/06/20 Risperidone [Risperdal] 1 tab OSTOMY SEECOM 06/06/20 levETIRAcetam [Levetiracetam] 7.5 ml OSTOMY SEECOM 06/06/20 lisinopriL [Lisinopril] 1 tab PO SEECOM 06/06/20 - Past Medical/Surgical History -: AFIB -: CVA -: HTN -: HYPERLIPIDEMIA -: DEPRESSION -: INDWELLING BERGER Past Surgical History: Patient denies surgical history - Family History Father Family History: Reviewed- Non-Contributory - Social History Smoking Status: Never smoker Alcohol use: No CD- Drugs: No Place of Residence: Home Review of Systems 10-point ROS is otherwise unremarkable Physical Examination - Vital Signs Temperature: 98.2 F Blood Pressure: 140/80 Pulse: 90 Respirations: 20 Pulse Ox (%): 100 - Physical Exam General: Alert, In no apparent distress, Oriented x3 HEENT: Atraumatic, PERRLA, Mucous membr. moist/pink, EOMI, Sclerae nonicteric Neck: Supple, 2+ carotid pulse no bruit, No LAD, Without JVD or thyroid abnormality Respiratory: Clear to auscultation bilaterally, Normal air movement Cardiovascular: Regular rate/rhythm, Normal S1 S2, No murmurs Gastrointestinal: Normal bowel sounds, Soft and benign, Non-distended, No tenderness Musculoskeletal: No clubbing, No swelling, No tenderness Integumentary: No rashes Neurological: Normal gait, Normal speech, Normal strength at 5/5 x4 extr, Normal tone, Sensation intact, Cranial nerves 3-12 intact, Normal affect Lymphatics: No axilla or inguinal lymphadenopathy Assessment & Plan - Problems (Diagnosis) (1) Dysphagia Current Visit: Yes Status: Acute (2) CVA (cerebral vascular accident) Current Visit: Yes Status: Acute (3) Vascular dementia Current Visit: Yes Status: Acute (4) Aphasia Current Visit: Yes Status: Acute - Plan PLAN: 1. PEG tube placement 2. Monitor electrolytes 3. GI consult 4. mOnitor hemodynamics Discharge Plan: Home Plan to discharge in: Greater than 2 days - Advance Directives Does patient have a Living Will: No Does patient have a Durable POA for Healthcare: No - Code Status/Comfort Care Code Status Assessed: Yes Code Status: Full Code Critical Care: No Time Spent Managing PTS Care (In Minutes): 45
--- NOTE | 2020-06-07 10:06 | P.PN ---
Subjective Date of Service: 06/06/20 Subjective: No new changes, No C/O voiced, Improving PEG tube placement today. Start tube feeds once this is done. Will restart tube feeds once this is completed. Once the tube feeds are started and patient tolerates the tube feeding we should be able the let her go home. Review of Systems 10-point ROS is otherwise unremarkable Physical Examination - Vital Signs Temperature: 98.2 F Blood Pressure: 140/80 Pulse: 90 Respirations: 20 Pulse Ox (%): 100 - Physical Exam General: Alert, In no apparent distress, Oriented x3 Respiratory: Clear to auscultation bilaterally, Normal air movement Cardiovascular: Regular rate/rhythm, Normal S1 S2, No murmurs Gastrointestinal: Normal bowel sounds, Soft and benign, Non-distended, No tenderness Musculoskeletal: No clubbing, No swelling, No tenderness Neurological: Sensation intact, Cranial nerves 3-12 intact - Studies Medications List Reviewed: Yes Assessment & Plan - Problems (Diagnosis) (1) Dysphagia Current Visit: Yes Status: Acute (2) CVA (cerebral vascular accident) Current Visit: Yes Status: Acute (3) Vascular dementia Current Visit: Yes Status: Acute (4) Aphasia Current Visit: Yes Status: Acute - Plan PLAN: 1. PEG tube placement today. Once this is completed then anticipate discharge home after tube feeds are initiated. 2. Monitor electrolytes 3. GI consult appreciated 4. Continue monitoring hemodynamics Discharge Plan: Home Plan to discharge in: 24 Hours - Advance Directives Does patient have a Living Will: No Does patient have a Durable POA for Healthcare: No - Code Status/Comfort Care Code Status: Full Code Critical Care: No Time Spent Managing PTS Care (In Minutes): 35
--- NOTE | 2020-06-07 10:12 | P.DS ---
Discharge Date: 06/07/20 Disposition: ROUTINE DISCHARGE Discharge Condition: GOOD Reason for Admission: Dysphagia Consultations: [employer]teration - Problems (1) Dysphagia Current Visit: Yes Status: Acute (2) CVA (cerebral vascular accident) Current Visit: Yes Status: Acute (3) Vascular dementia Current Visit: Yes Status: Acute (4) Aphasia Current Visit: Yes Status: Acute Brief History of Present Illness: Patient is a 60-year-old female who lives at home and ended up pulling out her PEG tube. She reaches for it throughout the day. She suffered a stroke and has aphasia. Patient came to the ED for further evaluation. Patient will be admitted and will get GI consultation for PEG tube placement. Hospital Course: Patient is doing well. Appreciate Gastroenterology's assistance in placing PEG tube. Patient appears very cachectic with a BMI of less than 17 at this time. Need to reinitiate tube feeds and monitor daily weights. At this time patient is doing well. Patient is tolerating tube feeds. Patient is stable for discharge home. Vital Signs/Physical Exam: Temp Pulse Resp BP Pulse Ox 98.2 F 90 20 140/80 100 06/07/20 10:06 06/07/20 10:06 06/07/20 10:06 06/07/20 10:06 06/07/20 10:06 General: Alert, In no apparent distress Laboratory Data at Discharge: WBC 8.10 K/uL (4.3-10.9) D 06/06/20 05:50 Hgb 12.8 g/dL (12.0-15.0) 06/06/20 05:50 Hct 38.2 % (36.0-45.0) 06/06/20 05:50 Plt Count 215 K/uL (152-406) 06/06/20 05:50 PT 11.0 SECONDS (9.5-12.5) 06/06/20 05:50 INR 0.96 06/06/20 05:50 APTT 25.7 SECONDS (24.3-36.9) 06/06/20 05:50 Sodium 143 mmol/L (136-145) 06/06/20 05:50 Potassium 4.0 mmol/L (3.5-5.1) 06/06/20 05:50 BUN 21 mg/dL (7-18) H 06/06/20 05:50 Creatinine 0.58 mg/dL (0.55-1.3) 06/06/20 05:50 Glucose 115 mg/dL (74-106) H 06/06/20 05:50 Phosphorus 4.0 mg/dL (2.5-4.9) 06/06/20 05:50 Magnesium 2.0 mg/dL (1.8-2.4) 06/06/20 05:50 Total Bilirubin 0.3 mg/dL (0.2-1.0) 06/06/20 05:50 AST 6 U/L (15-37) L 06/06/20 05:50 ALT 20 U/L (12-78) 06/06/20 05:50 Alkaline Phosphatase 54 U/L (45-117) 06/06/20 05:50 Home Medications: Amlodipine [Norvasc*] 1 tab PO DAILY 06/06/20 Aspirin 81 mg PO SEECOM 06/06/20 Atorvastatin Calcium 1 tab OSTOMY SEECOM 06/06/20 Clopidogrel Bisulfate [Plavix] 1 tab OSTOMY SEECOM 06/06/20 Famotidine 1 tab PO SEECOM 06/06/20 Risperidone [Risperdal] 1 tab OSTOMY SEECOM 06/06/20 levETIRAcetam [Levetiracetam] 7.5 ml OSTOMY SEECOM 06/06/20 lisinopriL [Lisinopril] 1 tab PO SEECOM 06/06/20 Physician Discharge Instructions: OK TO DC IV AND DC HOME FOLLOW-UP WITH PRIMARY CARE PROVIDER IN 1-2 WEEKS 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 CALDERÓN AT [phone] IF ANY QUESTIONS REGARDING HOSPITAL STAY. PLEASE CALL THE FLOOR AT [phone] IF ANY MEDICATION OR NURSING QUESTIONS. Diet: AHA Activity: Fall precautions Followup: Radha Chauhan [Primary Care Provider] - Time spent managing pt's care (in minutes): 35
[2020-06-07 12:07] VITALS: BP 140/75; TEMP 97.6
--- NOTE | 2020-07-12 14:13 | CON ---
Reason For Consultation: PEG replacement. History Of Present Illness: This is a 60-year-old woman with a history of AFib, CVA, hypertension, d yslipidemia, depression, history of indwelling Rogers, who has PEG tube because of her stroke and apha dahlia, accidently pulled out her PEG tube, presented to the hospital. They were not able to put a repl acement PEG in the ER. GI was consulted. Allergies: NO KNOWN DRUG ALLERGIES. Home Medications: As in the chart. Past Medical History: As above. Past Surgical History: PEG tube and indwelling Rogers, otherwise none significant. Review of Systems: GI: As in HPI, otherwise negative. Remainder of 10-point review of systems negative. Physical Examination: Vital Signs: Reviewed. On presentation; temperature 98.2, blood pressure 140/80, pulse 90, respirat ory rate 20. HEENT: Head atraumatic, normocephalic. Pupils equally reactive. Neck: Supple. Chest: Clear to auscultation bilaterally. Abdomen: Soft, nontender, nondistended. Bowel sounds present. I tried to see if the stomach can be used to put PEG tube, but it was not possible. SENIOR ACCOUNT EXECUTIVE: Alert, oriented x1 to 2. Laboratory Data: Also reviewed. No significant abnormality. Impression: A 60-year-old woman, dependent on PEG for feeding, history of stroke, aphasia with dislo dged PEG, needs replacement. Plan: We will schedule the patient for an EGD. Risks and complications of the procedure, which incl ude, but are not limited to bleeding, infection, perforation, anesthesia complication were explained to the patient's family and next of kin. They understand and agreed. US/MODL Voice ID: [id number] Report ID: [id number]
--- NOTE | 2020-07-12 19:34 | OP ---
Surgeon: oRnan Loja MD Procedure Performed: Esophagogastroduodenoscopy. Indication For Procedure: Failure to thrive. Plan For Anesthesia: Monitored anesthesia care. Complexity: High due to the nature of the procedure. Technique: After obtaining informed consent from the next of kin, indication, risks and complication s which include limited to bleeding, infection, perforation, anesthesia complications, the patient wa s placed in a supine position and sedation was given. From then on, the scope was advanced to the [facility] and carefully guided up till the second portion of the duodenum and subsequently gradually withdr awn while carefully examining the mucosa. Findings: Esophagus: No gross lesion seen in the esophagus. Stomach: Very mild patchy erythema seen in the body and antrum. The site of previous scar for the p revious PEG was seen, appeared to be closed. Duodenum: No gross abnormality seen in the entire examined duodenum. Subsequently, attention was placed back to the gastric region. Then in the body with the help of one -to-one pressure and transillumination a good site was identified. Then the area of the skin was ane sthetized and with the help of a pull guidewire technique, a 20-[employer] PEG tube was placed and position was confirmed by repeat endoscopy. Complications: None. Tolerance To Anesthesia: Excellent. Postoperative Diagnoses: 1.Status post PEG placement. 2.Mild gastritis. Plan: Start diet from tomorrow 20 cc/hour and advance as tolerated. Keep head of bed elevated and m edications as needed. US/MODL Voice ID: [id number] Report ID: [id number]
== END 2020-06-07 13:41 | disposition home or self-care (01) ==
LOC: ER 12:29 → ERHOLD 16:49 → INTOOBSV 16:49 → 2ND 21:19
PROVIDERS: ADMIT Hospitalist; ATTEND Hospitalist
PROC: 0DH63UZ Insertion of Feeding Device into Stomach, Percutaneous Approach (ICD-10-PCS; principal; 2020-06-05)
DX: I69.391 Dysphagia following cerebral infarction (principal); R13.10 Dysphagia, unspecified; I69.320 Aphasia following cerebral infarction; R62.7 Adult failure to thrive; Z68.1 Body mass index [BMI] 19.9 or less, adult; E86.0 Dehydration; K29.70 Gastritis, unspecified, without bleeding; F01.50 Vascular dementia, unspecified severity, without behavioral disturbance, psychotic disturbance, mood disturbance, and anxiety; I48.91 Unspecified atrial fibrillation; I10 Essential (primary) hypertension; E78.5 Hyperlipidemia, unspecified; F32.9 Major depressive disorder, single episode, unspecified; Z20.822 Contact with and (suspected) exposure to COVID-19; Z79.82 Long term (current) use of aspirin; Z79.02 Long term (current) use of antithrombotics/antiplatelets; Z79.899 Other long term (current) drug therapy
CPT/HCPCS: 85025 ×2; 80048; 36415; 83735; 84100; 85610 ×2; 82947; 85730 ×2; 80053; 99285; 43246; U0003; J2704; J2250; J1170 ×6; G0378 ×5; J7799 ×4; J7120; J2405

== ENCOUNTER 2020-06-11 22:09 | Emergency (ER) | payer MEDICAID ==
--- OUTSIDE RECORDS SUMMARY | 2020-06-11 22:13 | XMS REPORT | Continuity of Care Document ---
:1960 Author Organization [facility] t Address [address] [place] [address] Care Team Providers Name Role Phone Zeke Blount LMSW Attending Clinician Problems This patient has no known problems. Allergies, Adverse Reactions, Alerts This patient has no known allergies or adverse reactions. Medications This patient has no known medications. Procedures This patient has no known procedures. Encounters Start End Encounter Admission Attending Care Care Encounter Source Date/Time Date/Time Type Type Clinicians Facility Department ID 2020-06-04 2020-06-04 Patient Jose Alejandro RUST [id number] 00:00:00 00:00:00 Outreach Nikki Askew [id number] [place] [id number] [address] Results This patient has no known results.
[2020-06-11 22:39] LABS: Absolute Lymphocytes (CBC) 1.7 K/uL (0.7-4.9); Basophils % 0.4 % (0-1.3); Lymphocytes % 15.6 % (15.3-44.8); MPV 9.8 fL (7.6-11.3); RBC Red Blood Cell Count 4.16 M/uL (3.86-4.86)
[2020-06-11 22:51] LABS: ALT/SGPT 15 U/L (12-78); AST/SGOT 8 U/L (15-37); Albumin 3.1 g/dL (3.4-5.0); Alkaline Phosphatase 55 U/L (45-117); BUN Blood Urea Nitrogen 24 mg/dL (7-18); Bicarbonate 27 mmol/L (21-32); Bilirubin Direct < 0.1 mg/dL (0-0.2); Bilirubin Total 0.2 mg/dL (0.2-1.0); Glucose Level 195 mg/dL (74-106); Lipase 231 U/L (73-393); Potassium 3.9 mmol/L (3.5-5.1); Protein, Total 6.9 g/dL (6.4-8.2); Sodium Level 141 mmol/L (136-145)
--- NOTE | 2020-06-12 00:57 | ER ---
Nurse's Notes [facility] Name: Funmilayo Mcmillan Age: 60 yrs Sex: Female : 1960 Arrival Date: 06/11/2020 Time: 22:13 Bed 8 Private MD: Diagnosis: Constipation, unspecified;Abdominal tenderness Presentation: 06/11 22:10 Chief complaint: EMS states: complaining of abdominal pain when pressing near the PEG rr5 tube. the daughter stated she feed her about an hour ago, no resistance noted. 22:10 Coronavirus screen: Client denies travel out of the [place] in the last 14 days. At this rr5 time, the client does not indicate any symptoms associated with coronavirus-19. Ebola Screen: Patient negative for fever greater than or equal to 101.5 degrees Fahrenheit, and additional compatible Ebola Virus Disease symptoms Patient denies exposure to infectious person. Patient denies travel to an Ebola-affected area in the 21 days before illness onset. Initial Sepsis Screen: Does the patient meet any 2 criteria? HR > 90 bpm. Does the patient have a suspected source of infection? Yes: Acute abdominal pain. Risk Assessment: Do you want to hurt yourself or someone else? Patient reports no desire to harm self or others. Onset of symptoms was June 11, 2020. 22:10 Method Of Arrival: EMS: [facility] rr5 22:10 Acuity: EDNA 3 rr5 Historical: - Allergies: 22:16 No Known Allergies; rr5 - Home Meds: 22:16 amlodipine 10 mg tab 1 tab once daily [Active]; aspirin 81 mg Oral chew 1 tab once rr5 daily [Active]; atorvastatin 40 mg Oral tab 1 tab once daily [Active]; clopidogrel 75 mg Oral tab 1 tab once daily [Active]; levetiracetam 100 mg/mL Oral soln 705 mL 2 times per day [Active]; famotidine 20 mg Oral tab 1 tab every 12 hours [Active]; lisinopril 40 mg Oral tab 1 tab once daily [Active]; Risperdal 0.5 mg Oral tab 2 times per day [Active]; - PMHx: 22:16 Atrial Fib; CVA; Depression; Hyperlipidemia; Hypertension; Indwelling zheng; rr5 - Immunization history:: Adult Immunizations unknown. - Social history:: Smoking status: unknown. Screenin:17 Abuse screen: Denies threats or abuse. Denies injuries from another. Nutritional rr5 screening: No deficits noted. Tuberculosis screening: No symptoms or risk factors identified. Fall Risk Secondary diagnosis (15 points) impaired mobility, CVA, IV access (20 points). Gait- Impaired (20 pts.). Mental Status- Overestimates/Forgets Limitations (15 pts.). Total Cloud Fall Scale indicates High Risk Score (45 or more points). Fall prevention measures have been instituted. Side Rails Up X 2 Frequent Obs/Assessments Occuring As available patient and family educated on Fall Prevention Program and Strategies. Assessment: 22:18 General: Appears in no apparent distress. uncomfortable, Behavior is calm, cooperative. rr5 Pain: Unable to use pain scale. Patient appears to be grimacing. Neuro: Level of Consciousness is awake, alert. Cardiovascular: Capillary refill < 3 seconds Patient's skin is warm and dry. Respiratory: Airway is patent Respiratory effort is even, unlabored, Respiratory pattern is regular, symmetrical. GI: Abdomen is flat, non-distended, PEG tube in place, clamped. Site clean. Abdomen is tender to palpation. : Zheng in place. EENT: No signs and/or symptoms were reported regarding the EENT system. Derm: Skin temperature is warm. Musculoskeletal: Capillary refill < 3 seconds, contractured. 23:48 Reassessment: Patient and/or family updated on plan of care and expected duration. Pain ea level reassessed. Pt alert, pt is aphasic. Pt resting with eyes closed, respirations even and unlabored, chest expansions even and symmetrical . No s/s of pain or discomfort noted at this time. 06/12 00:35 Reassessment: Patient appears in no apparent distress at this time. Patient and/or rr5 family updated on plan of care and expected duration. Pain level reassessed. 01:40 Reassessment: ED provider aware for the BP with order made carried out. discharge rr5 instruction given and explained to EMS. Mandy spoke to the daughter for the plan of care. Vital Signs: 06/11 22:10 BP 157 / 91; Pulse 102; Resp 19; Temp 98.1; Pulse Ox 100% ; Weight 60 kg; rr5 22:54 BP 121 / 83; Pulse 95; Resp 17; Pulse Ox 98% ; rr5 03/30 00:58 BP 154 / 94; Pulse 90; Resp 18; Pulse Ox 99% ; ea 01:40 BP 170 / 105; Pulse 92; Resp 17; Pulse Ox 98% ; rr5 ED Course: 06/11 22:13 Patient arrived in ED. jb4 22:13 Estevan Yoder, RN is Primary Nurse. rr5 22:15 Triage completed. rr5 22:17 Arm band placed on right wrist. rr5 22:19 Patient has correct armband on for positive identification. Placed in gown. Bed in low rr5 position. Call light in reach. Side rails up X2. Pulse ox on. NIBP on. Warm blanket given. 22:20 Karthik Gutierrez MD is Attending Physician. tw4 22:21 Inserted saline lock: 20 gauge in left antecubital area, using aseptic technique. rr5 ,using aseptic technique. inserted by mandy Blood collected. 23:15 CT Abd/Pelvis - IV Contrast Only In Process Unspecified. EDMS 06/12 01:45 No provider procedures requiring assistance completed. IV discontinued, intact, ea bleeding controlled, No redness/swelling at site. Pressure dressing applied. Administered Medications: 01:40 Drug: hydrALAZINE 10 mg Route: IM; Site: left deltoid; rr5 01:46 Follow up: Response: Medication administered at discharge. rr5 Outcome: 00:56 Discharge ordered by . tw4 01:45 Discharged to home via ambulance. ea 01:45 Condition: stable 01:45 Discharge instructions given to patient, EMS, Instructed on discharge instructions, follow up and referral plans. Demonstrated understanding of instructions, follow-up care, Prescriptions given X 1. 01:46 Patient left the ED. rr5 Signatures: Dispatcher [employer] EDMS Guerrero Bhandari RN GILA jb4 Mandy Wilkins RN Karthik Benavides ea, MD MD tw4 Estevan Yoder, RN RN rr5 Corrections: (The following items were deleted from the chart) 01:46 01:45 Discharge instructions given to patient, EMS, Instructed on discharge ea instructions, follow up and referral plans. Demonstrated understanding of instructions, follow-up care, Prescriptions given X 1, ea 01:46 01:45 Discharged to home ambulatory, via ambulance, ea ea
--- NOTE | 2020-06-12 00:57 | EDPHYS ---
Physician Documentation [facility] Name: Funmilayo Mcmillan Age: 60 yrs Sex: Female : 1960 Arrival Date: 06/11/2020 Time: 22:13 Bed 8 Private MD: ED Physician Karthik Gutierrez HPI: 06/12 04:14 This 60 yrs old Female presents to ER via EMS with complaints of Abdominal tw4 Pain. 04:14 The patient presents with abdominal pain. Onset: The symptoms/episode began/occurred tw4 today. The symptoms do not radiate. Associated signs and symptoms: none. The symptoms are described as sharp. Modifying factors: The symptoms are alleviated by nothing, the symptoms are aggravated by nothing. Severity of pain: At its worst the pain was moderate in the emergency department the pain is unchanged. The patient has not experienced similar symptoms in the past. Historical: - Allergies: 06/11 22:16 No Known Allergies; rr5 - Home Meds: 22:16 amlodipine 10 mg tab 1 tab once daily [Active]; aspirin 81 mg Oral chew 1 tab once rr5 daily [Active]; atorvastatin 40 mg Oral tab 1 tab once daily [Active]; clopidogrel 75 mg Oral tab 1 tab once daily [Active]; levetiracetam 100 mg/mL Oral soln 705 mL 2 times per day [Active]; famotidine 20 mg Oral tab 1 tab every 12 hours [Active]; lisinopril 40 mg Oral tab 1 tab once daily [Active]; Risperdal 0.5 mg Oral tab 2 times per day [Active]; - PMHx: 22:16 Atrial Fib; CVA; Depression; Hyperlipidemia; Hypertension; Indwelling zheng; rr5 - Immunization history:: Adult Immunizations unknown. - Social history:: Smoking status: unknown. ROS: 06/12 04:14 Constitutional: Negative for fever, chills, and weight loss, Eyes: Negative for injury, tw4 pain, redness, and discharge, Cardiovascular: Negative for chest pain, palpitations, and edema, Respiratory: Negative for shortness of breath, cough, wheezing, and pleuritic chest pain, Back: Negative for injury and pain, MS/Extremity: Negative for injury and deformity, Skin: Negative for injury, rash, and discoloration, Neuro: Negative for headache, weakness, numbness, tingling, and seizure. Abdomen/GI: Positive for abdominal pain, Negative for nausea and vomiting, nausea, vomiting, and diarrhea, nausea, vomiting, diarrhea, constipation, abdominal cramps, abdominal distension, anorexia, dysphagia, hematemesis, black/tarry stool, rectal pain, rectal bleeding, bowel incontinence. Exam: 04:14 Constitutional: This is a well developed, well nourished patient who is awake, alert, tw4 and in no acute distress. Head/Face: Normocephalic, atraumatic. Chest/axilla: Normal chest wall appearance and motion. Nontender with no deformity. No lesions are appreciated. Cardiovascular: Regular rate and rhythm with a normal S1 and S2. No gallops, murmurs, or rubs. Normal PMI, no JVD. No pulse deficits. Respiratory: Lungs have equal breath sounds bilaterally, clear to auscultation and percussion. No rales, rhonchi or wheezes noted. No increased work of breathing, no retractions or nasal flaring. Back: No spinal tenderness. No costovertebral tenderness. Full range of motion. Skin: Warm, dry with normal turgor. Normal color with no rashes, no lesions, and no evidence of cellulitis. MS/ Extremity: Pulses equal, no cyanosis. Neurovascular intact. Full, normal range of motion. Neuro: Awake and alert, GCS 15, oriented to person, place, time, and situation. Cranial nerves II-XII grossly intact. Motor strength 5/5 in all extremities. Sensory grossly intact. Cerebellar exam normal. Normal gait. 04:14 Abdomen/GI: Inspection: abdomen appears normal, Bowel sounds: normal, Palpation: moderate abdominal tenderness, in the right lower quadrant. Vital Signs: 06/11 22:10 BP 157 / 91; Pulse 102; Resp 19; Temp 98.1; Pulse Ox 100% ; Weight 60 kg; rr5 22:54 BP 121 / 83; Pulse 95; Resp 17; Pulse Ox 98% ; rr5 06/12 00:58 BP 154 / 94; Pulse 90; Resp 18; Pulse Ox 99% ; ea 01:40 BP 170 / 105; Pulse 92; Resp 17; Pulse Ox 98% ; rr5 MDM: 06/11 22:23 Patient medically screened. tw4 06/12 04:16 Data reviewed: vital signs, nurses notes. Data interpreted: Pulse oximetry: tw4 Interpretation: normal. Counseling: I had a detailed discussion with the patient and/or guardian regarding: the historical points, exam findings, and any diagnostic results supporting the discharge/admit diagnosis. Special discussion: Based on the patient's Hx, exam, and Dx evaluation, there is no indication for emergent surgery or inpatient Tx. It is understood by the patient/guardian that if the Sx's persist or worsen they need to return immediately for re-evaluation. I discussed with the patient/guardian in detail that at this point there is no indication for admission to the hospital. It is understood, however, that if the symptoms persist or worsen the patient needs to return immediately for re-evaluation. 06/11 22:17 Order name: Basic Metabolic Panel 5 06/11 22:17 Order name: CBC with Diff [facility] 06/11 22:17 Order name: Hepatic Function [facility] 06/11 22:17 Order name: Lipase [facility] 06/11 22:18 Order name: Basic Metabolic Panel; Complete Time: 00:30 EDMS 06/12 00:30 Interpretation: Normal except: GLUC 195; BUN 24; GFR 78. 4 06/11 22:18 Order name: CBC with Automated Diff; Complete Time: 00:30 EDMS 06/12 00:30 Interpretation: Normal except: GENI% 77.2; WBC 11.20. 4 06/11 22:17 Order name: IV Saline Lock; Complete Time: 22:21 [facility] 06/11 22:17 Order name: Labs collected and sent; Complete Time: 22:21 [facility] 06/11 22:19 Order name: Liver (Hepatic) Function; Complete Time: 00:30 EDMS 06/12 00:31 Interpretation: Normal except: AST 8; ALB 3.1; GLOB 3.8; A/G 0.8. 4 06/11 22:19 Order name: Lipase; Complete Time: 00:30 EDMS 06/11 22:20 Order name: CT Abd/Pelvis - IV Contrast Only Administered Medications: 01:40 Drug: hydrALAZINE 10 mg Route: IM; Site: left deltoid; rr5 01:46 Follow up: Response: Medication administered at discharge. rr5 Disposition: 06/12/20 00:56 Discharged to Home. Impression: Constipation, unspecified, Abdominal tenderness. - Condition is Stable. - Discharge Instructions: Constipation, Adult, Abdominal Pain, Adult, [id number]. - Medication Reconciliation Form, Thank You Letter, Antibiotic Education, Prescription Opioid Use, SBAR form form. - Follow up: Private Physician; When: Upon discharge from the Emergency Department; Reason: Recheck today's complaints, Continuance of care, Re-evaluation by your physician. - Problem is new. - Symptoms have improved. Signatures: Dispatcher [employer] [facility] Karthik Gutierrez MD MD tw4 Estevan Yoder RN RN rr5 Corrections: (The following items were deleted from the chart) 01:46 00:56 06/12/2020 00:56 Discharged to Home. Impression: Constipation, unspecified; rr5 Abdominal tenderness. Condition is Stable. Forms are Medication Reconciliation Form, Thank You Letter, Antibiotic Education, Prescription Opioid Use. Follow up: Private Physician; When: Upon discharge from the Emergency Department; Reason: Recheck today's complaints, Continuance of care, Re-evaluation by your physician. Problem is new. Symptoms have improved. tw4
[2020-06-12 01:51] VITALS: TEMP 98.1
[2020-06-12 01:55] VITALS: BP 170/105; O2SAT 98
[2020-06-12] MEDS ORDERED: HYDRALAZINE HCL 20 MG/ML VIAL ONE (01:59)
--- NOTE | 2020-06-12 11:54 | RAD REPORT ---
EXAM DESCRIPTION: CT ABDOMEN AND PELVIS WITH CONTRAST CLINICAL HISTORY: ABD PAIN COMPARISON: 02/09/2020 TECHNIQUE: CT of the abdomen and pelvis performed following IV administration of iodinated contras t. This exam was performed according to our departmental dose-optimization program, which includes au tomated exposure control, adjustment of the mA and/or kV according to patient size and/or use of iter ative reconstruction technique. FINDINGS: Lung Bases: Mild right basilar atelectasis. Bones: Multilevel degenerative endplate spondylosis and facet arthropathy. Abdomen: Liver: The liver has normal size and density. No intrahepatic biliary dilatation. Gallbladder: No calcified gallstones. Spleen, Pancreas, and Adrenal Glands: The spleen, pancreas, and adrenal glands are unremarkable. Kidneys: Bilateral renal cysts. No hydronephrosis. Punctate nonobstructing bilateral nephrolithiasi s. Vasculature: Aortoiliac atherosclerosis. IVC is unremarkable. Likely flow-limiting stenoses in the bi lateral internal and external iliac arteries. The portal vein is patent. The proximal visceral and renal arteries are patent. Stomach: Distention of the stomach with mild wall thickening of the pylorus. Gastrostomy tube prese nt. Other: No free intraperitoneal air. No free fluid or lymphadenopathy. Pelvis: Bladder: Rogers catheter in the urinary bladder. Urinary bladder is decompressed. Wall thickening of the urinary bladder. Bowel: Large amount of stool in the rectum. No dilated loops of small bowel. Appendix: Normal appendix. Pelvis: Uterus is not enlarged. IMPRESSION: 1. Distention of the stomach with mild wall thickening of the pylorus. This could be s een with gastritis. 2. Wall thickening of the urinary bladder. This could be seen with cystitis. 3. Large amount of stool in the rectum. 4. Punctate nonobstructing bilateral nephrolithiasis. 5. Likely flow-limiting stenoses in the bilateral internal and external iliac arteries. Correlation for history of lower extremity claudication. Dedicated CTA of the lower extremities or lower extremi ty arterial duplex could provide more complete characterization. Electronically signed by: Javi Romero 06/11/2020 11:40 PM CDT Due to temporary technical issues with the PACS/Fluency reporting system, reports are being signed by the in house radiologists without review as a courtesy to insure prompt reporting. The interpreting radiologist is fully responsible for the content of the report.
== END 2020-06-12 01:46 | disposition home or self-care (01) ==
LOC: ER 22:09
DX: K59.00 Constipation, unspecified (principal); I10 Essential (primary) hypertension; F32.9 Major depressive disorder, single episode, unspecified; E78.5 Hyperlipidemia, unspecified; I48.91 Unspecified atrial fibrillation; Z79.82 Long term (current) use of aspirin; Z86.73 Personal history of transient ischemic attack (TIA), and cerebral infarction without residual deficits
CPT/HCPCS: 85025; 80048; 36415; 80076; 83690; 74177; Q9967; J0360; 96372; 99284

== ENCOUNTER 2020-06-12 14:27 | Inpatient (IN) | payer MEDICAID ==
--- OUTSIDE RECORDS SUMMARY | 2020-06-12 14:29 | XMS REPORT | Continuity of Care Document ---
:1960 [address] [facility] [place] [place] t Address [address] [place] [address] Care Team Providers Name Role Phone Zeke [...] Department ID 2020-06-04 2020-06-04 Patient Jose Alejandro [facility] [id number] 00:00:00 00:00:00 Outreach Nikki Askew [id number] [place] [id number] [phone] [address] Results This patient has no known results.
[2020-06-12 15:05] LABS: Urine Blood Trace-intact (Negative); Urine Glucose Negative (Negative); Urine Protein 1+ (Negative); Urine pH 7.5 (5.0-7.0)
--- NOTE | 2020-06-12 15:10 | RAD REPORT ---
EXAM DESCRIPTION: RAD - Abdomen 1 View (KUB) - 06/12/2020 3:03 pm CLINICAL HISTORY: Abdomen pain. FINDINGS: The bowel gas pattern is unremarkable. Moderate to large amount stool within the colon. The rectum is distended with stool Gastrostomy tube overlies the left upper quadrant
[2020-06-12 15:42] LABS: Urine Amorphous Sediment 1+ /HPF (NONE SEEN); Urine Bacteria >50 /HPF (<20); Urine RBC <5 /HPF (NONE SEEN)
[2020-06-12 16:23] LABS: Absolute Lymphocytes (CBC) 0.8 K/uL (0.7-4.9); Basophils % 0.2 % (0-1.3); Hematocrit 38.6 % (36.0-45.0); Lymphocytes % 5.5 % (15.3-44.8)
[2020-06-12 16:32] LABS: Albumin 3.2 g/dL (3.4-5.0); Bilirubin Direct 0.1 mg/dL (0-0.2); Bilirubin Total 0.5 mg/dL (0.2-1.0); Potassium 4.5 mmol/L (3.5-5.1); Protein, Total 7.6 g/dL (6.4-8.2)
[2020-06-12] MEDS ORDERED: FLEET ENEMA ADULT PR ONE (16:47)
[2020-06-12 16:58] LABS: Urine Blood 2+ (Negative); Urine Glucose Negative (Negative); Urine Protein 2+ (Negative)
[2020-06-12] MEDS ORDERED: CEFTRIAXONE/SWI 1gm 1 GM/10 ML SYR ONE (17:54)
[2020-06-12] MEDS ORDERED: MORPHINE 2 MG/ML SYR ONE (18:10)
[2020-06-12] MEDS ORDERED: ONDANSETRON 4 MG/2 ML VIAL ONE (18:10)
--- NOTE | 2020-06-12 20:02 | EDPHYS ---
Physician Documentation [facility] Name: Funmilayo Mcmillan Age: 60 yrs Sex: Female : 1960 Arrival Date: 06/12/2020 Time: 14:28 Bed 19 Private MD: ED Physician Arron Schulz HPI: 06/12 15:09 This 60 yrs old Female presents to ER via EMS with complaints of Abdominal pm1 Pain. 15:09 The patient presents with abdominal pain. Onset: The symptoms/episode began/occurred pm1 yesterday. Severity of pain: in the emergency department the pain is actually worse. The patient has been recently seen at the [facility] Emergency Department, yesterday, for similar complaints labs were performed, CT scan was performed, diagnosed with constipation and discharged with instructions to take Miralax. Patient returned to the ER today because her home health nurse reported increased pain and no bowel sounds presents. Patient unable to give history herself. Obtained from EMS. She is at her mental baseline of answering yes to all questions. Historical: - Allergies: 14:35 No Known Allergies; zb - Home Meds: 14:35 amlodipine 10 mg tab 1 tab once daily [Active]; aspirin 81 mg Oral chew 1 tab once zb daily [Active]; atorvastatin 40 mg Oral tab 1 tab once daily [Active]; clopidogrel 75 mg Oral tab 1 tab once daily [Active]; famotidine 20 mg Oral tab 1 tab every 12 hours [Active]; levetiracetam 100 mg/mL Oral soln 705 mL 2 times per day [Active]; lisinopril 40 mg Oral tab 1 tab once daily [Active]; Risperdal 0.5 mg Oral tab 2 times per day [Active]; - PMHx: 14:35 Atrial Fib; CVA; Depression; Hyperlipidemia; Hypertension; Indwelling zheng; zb - Immunization history:: Adult Immunizations unknown. - Social history:: Smoking status: unknown. ROS: 15:09 Constitutional: Negative for fever, chills, and weight loss. pm1 15:09 Constitutional: Negative for fever. 15:09 Abdomen/GI: Positive for abdominal pain, constipation. 15:09 Unable to obtain ROS due to baseline dementia. Exam: 15:09 Head/Face: Normocephalic, atraumatic. pm1 15:09 Constitutional: The patient appears awake, non-diaphoretic, non-toxic, well developed, in obvious pain, unkempt. 15:09 Cardiovascular: Rate: tachycardic, Rhythm: irregular, Pulses: no pulse deficits are appreciated. 15:09 Respiratory: the patient does not display signs of respiratory distress. 15:09 Abdomen/GI: Inspection: abdomen appears normal, Palpation: soft, in all quadrants, moderate abdominal tenderness, in the suprapubic area and left lower quadrant. 15:09 Neuro: Mentation: able to follow commands. Vital Signs: 14:30 BP 122 / 76; Pulse 101; Resp 18; Temp 99.2(TE); Pulse Ox 100% on R/A; zb 15:00 BP 157 / 90; Pulse 73; Resp 16; Pulse Ox 98% on R/A; zb 16:00 BP 165 / 97; Pulse 98; Resp 16; Pulse Ox 96% on R/A; zb 17:00 BP 160 / 85; Pulse 72; Resp 16; Pulse Ox 95% on R/A; zb 18:00 BP 151 / 89; Pulse 102; Resp 16; Pulse Ox 96% on R/A; zb 19:00 BP 139 / 80; Pulse 95; Resp 16; Pulse Ox 97% on R/A; zb 19:42 BP 148 / 88; Pulse 97; Resp 18; Pulse Ox 97% on R/A; zb 21:00 BP 162 / 82; Pulse 94; Resp 16; Pulse Ox 100% on R/A; zb 22:29 BP 135 / 79; Pulse 93; Resp 16; Pulse Ox 98% on R/A; zb 23:46 BP 147 / 78; Pulse 78; Resp 14; Pulse Ox 99% on R/A; zb MDM: 14:49 Patient medically screened. pm1 19:02 Data reviewed: vital signs. Data interpreted: Pulse oximetry: on room air is 96 %. pm1 Interpretation: normal. 19:21 Counseling: I had a detailed discussion with the patient and/or guardian regarding: the pm1 historical points, exam findings, and any diagnostic results supporting the discharge/admit diagnosis, lab results, radiology results, Daughter, who has power of tax associate attorney, would like the patient to be admitted to the hospital for antibiotic therapy . 06/12 14:47 Order name: Basic Metabolic Panel pm1 06/12 14:47 Order name: CBC with Diff; Complete Time: 16:58 pm1 06/12 14:47 Order name: Hepatic Function; Complete Time: 16:58 pm1 06/12 14:47 Order name: Lipase; Complete Time: 16:58 pm1 06/12 14:48 Order name: Basic Metabolic Panel; Complete Time: 16:58 EDMS 06/12 14:49 Order name: Urine Microscopic Only; Complete Time: 15:48 pm1 06/12 15:05 Order name: Urine Dipstick-Ancillary EDMS 06/12 15:43 Order name: Urine Culture EDMS 06/12 16:58 Order name: Urine Dipstick-Ancillary; Complete Time: 17:11 EDMS 06/12 19:30 Order name: Procalcitonin; Complete Time: 21:26 la1 06/12 19:31 Order name: Blood Culture Adult (2) la1 06/12 20:04 Order name: COVID-19 : Document "Date of Symptom Onset" if Symptomatic. tt3 06/12 20:05 Order name: CORONAVIRUS EDMS 06/12 21:59 Order name: SARS-COV-2 RT PCR; Complete Time: 23:15 EDMS 06/12 14:47 Order name: IV Saline Lock; Complete Time: 16:07 pm1 06/12 14:47 Order name: Labs collected and sent; Complete Time: 16:07 pm1 06/12 14:49 Order name: Urine Dipstick-Ancillary (obtain specimen); Complete Time: 16:08 pm1 06/12 14:49 Order name: XRAY Abdomen 1 View (KUB); Complete Time: 15:11 pm1 Administered Medications: 16:45 Drug: Fleet Enema 133 ml Route: TX; zb 18:15 Follow up: Response: Marked relief of symptoms zb 17:50 Drug: Rocephin (cefTRIAXone) 1 grams Route: IV; Rate: calculated rate; Site: left zb antecubital; 18:15 Follow up: Response: No adverse reaction; IV Status: Completed infusion; IV Intake: 20mlzb 18:00 Drug: morphine 2 mg {Note: rass +1.} Route: IVP; Site: left antecubital; zb 18:15 Follow up: Response: No adverse reaction; Pain is decreased; RASS: Alert and Calm (0) zb 18:00 Drug: Zofran (Ondansetron) 4 mg Route: IVP; Site: left antecubital; zb 18:16 Follow up: Response: No adverse reaction zb 20:16 Drug: NS 0.9% 500 ml Route: IV; Rate: bolus; Site: left antecubital; zb 22:20 Follow up: IV Status: Completed infusion; IV Intake: 500ml zb 21:29 Drug: NS 0.9% 1000 ml Route: IV; Rate: 100 ml/hr; Site: left antecubital; zb 23:45 Follow up: Response: No adverse reaction; IV Status: Infusion continued upon admission; zb IV Intake: 200ml Disposition: 06/12/20 20:02 Hospitalization ordered by Estevan Ruff for Observation. Preliminary diagnosis are Urinary tract infection, site not specified, Unspecified abdominal pain, Constipation. - Bed requested for Telemetry/MedSurg (observation). - Status is Observation. zb - Condition is Stable. - Problem is new. - Symptoms have improved. Addendum: 06/15/2020 15:39 Co-signature as Attending Physician, Arron Schulz MD. m a2 Signatures: Dispatcher [employer] EDNC Elenita Gonzalez RN RN Cuba Tello, SODA FOUNTAIN OPERATOR-C SODA FOUNTAIN OPERATOR-Cla1 Cheo Denney, MELIZA MANNEQUIN MOLD MAKER pm1 Arron Schulz MD MD ma2 Loren Marie RN RN zb Corrections: (The following items were deleted from the chart) 06/12 22:23 20:02 Hospitalization Ordered by Estevan Ruff MD for Observation. Preliminary diagnosis is Urinary tract infection, site not specified; Unspecified abdominal pain; Constipation. Bed requested for Telemetry/MedSurg (observation). Status is Observation. Condition is Stable. Problem is new. Symptoms have improved. pm1 06/13 00:11 06/12 22:23 06/12/2020 20:02 Hospitalization Ordered by Estevan Ruff MD for zb Observation. Preliminary diagnosis is Urinary tract infection, site not specified; Unspecified abdominal pain; Constipation. Bed requested for Telemetry/MedSurg (observation). Status is Observation. Condition is Stable. Problem is new. Symptoms have improved. mw
--- NOTE | 2020-06-12 20:02 | ER ---
Nurse's Notes [facility] Name: Funmilayo Mcmillan Age: 60 yrs Sex: Female : 1960 Arrival Date: 06/12/2020 Time: 14:28 Bed 19 Private MD: Diagnosis: Urinary tract infection, site not specified;Unspecified abdominal pain;Constipation Presentation: 06/12 14:30 Chief complaint: EMS states: Family called for EMS for abdominal pain. Patient was here zb last night told to take milax and sent home. Home nurse stated she could not hear bowel sounds. no nausea or vomiting. Coronavirus screen: At this time, the client does not indicate any symptoms associated with coronavirus-19. Ebola Screen: No symptoms or risks identified at this time. Initial Sepsis Screen: Does the patient meet any 2 criteria? No. Patient's initial sepsis screen is negative. Does the patient have a suspected source of infection? No. Patient's initial sepsis screen is negative. Risk Assessment: Do you want to hurt yourself or someone else? Patient reports no desire to harm self or others. Onset of symptoms was June 12, 2020. 14:30 Method Of Arrival: EMS: [facility] zb 14:30 Acuity: EDNA 3 zb Triage Assessment: 14:35 General: Appears uncomfortable, Behavior is inappropriate for age. Pain: Unable to use zb pain scale. Patient is disoriented. Neuro: Level of Consciousness is awake, confused, Oriented to none. Cardiovascular: Heart tones S1 S2 present Murmur present Patient's skin is warm and dry. Pulses are all present. Respiratory: Airway is patent Respiratory effort is even, unlabored, Respiratory pattern is regular, symmetrical. GI: Abdomen is flat, PEG tube in place, Bowel sounds present X 4 quads. Abdomen is tender to palpation X 4 quads. Guarding noted X 4 quads. non-verbal pain. reports discomfort. : Zheng in place to gravity drainage. Derm: Skin is intact, is fragile, is thin, Skin is dry, Skin is normal, Skin temperature is warm. Musculoskeletal: limited. appear wheelchair bound. Historical: - Allergies: 14:35 No Known Allergies; zb - Home Meds: 14:35 amlodipine 10 mg tab 1 tab once daily [Active]; aspirin 81 mg Oral chew 1 tab once zb daily [Active]; atorvastatin 40 mg Oral tab 1 tab once daily [Active]; clopidogrel 75 mg Oral tab 1 tab once daily [Active]; famotidine 20 mg Oral tab 1 tab every 12 hours [Active]; levetiracetam 100 mg/mL Oral soln 705 mL 2 times per day [Active]; lisinopril 40 mg Oral tab 1 tab once daily [Active]; Risperdal 0.5 mg Oral tab 2 times per day [Active]; - PMHx: 14:35 Atrial Fib; CVA; Depression; Hyperlipidemia; Hypertension; Indwelling zheng; zb - Immunization history:: Adult Immunizations unknown. - Social history:: Smoking status: unknown. Screenin:45 Abuse screen: none abuse signs noted. Nutritional screening: No deficits noted. zb Tuberculosis screening: No symptoms or risk factors identified. Fall Risk No fall in past 12 months (0 pts). Secondary diagnosis (15 points) impaired mobility, CVA, No IV (0 pts). Ambulatory Aid- None/Bed Rest/Nurse Assist (0 pts). Gait- Impaired (20 pts.). Mental Status- Overestimates/Forgets Limitations (15 pts.). Total Cloud Fall Scale indicates High Risk Score (45 or more points). Fall prevention measures have been instituted. Side Rails Up X 2 Placed Close to Nursing Station Frequent Obs/Assessments Occuring. Assessment: 14:30 Reassessment: ECP at bedside. zb 15:00 Reassessment: Patient appears in no apparent distress at this time. Patient and/or zb family updated on plan of care and expected duration. Pain level reassessed. expressive dysaphia noted. patient given bed bath and zheng placed. 16:00 Reassessment: Patient appears in no apparent distress at this time. Patient and/or zb family updated on plan of care and expected duration. Pain level reassessed. Patient given medication. Waiting for bowel movement. 17:00 Reassessment: Patient appears in no apparent distress at this time. Patient and/or zb family updated on plan of care and expected duration. Pain level reassessed. patient noted to be experiencing a bowel movement. Will wait for her to finish. patient currently in diaper. 18:00 Reassessment: large baseball size bowel movement noted. patient cleaned and zb repositioned. 19:00 Reassessment: patient appears comfortable and in less pain. zb 19:43 Reassessment: Hospitalist at bedside assessing patient. zb 20:45 Reassessment: Patient appears in no apparent distress at this time. Patient and/or zb family updated on plan of care and expected duration. Pain level reassessed. 21:45 Reassessment: Patient appears in no apparent distress at this time. Patient and/or zb family updated on plan of care and expected duration. Pain level reassessed. patient had bm, cleaned up and repositioned. 22:29 Reassessment: Patient appears in no apparent distress at this time. Patient and/or zb family updated on plan of care and expected duration. Pain level reassessed. no acute issues at this. 23:46 Reassessment: Patient appears in no apparent distress at this time. Patient and/or zb family updated on plan of care and expected duration. Pain level reassessed. no acute changes at this time. patient repositioned. Vital Signs: 14:30 BP 122 / 76; Pulse 101; Resp 18; Temp 99.2(TE); Pulse Ox 100% on R/A; zb 15:00 BP 157 / 90; Pulse 73; Resp 16; Pulse Ox 98% on R/A; zb 16:00 BP 165 / 97; Pulse 98; Resp 16; Pulse Ox 96% on R/A; zb 17:00 BP 160 / 85; Pulse 72; Resp 16; Pulse Ox 95% on R/A; zb 18:00 BP 151 / 89; Pulse 102; Resp 16; Pulse Ox 96% on R/A; zb 19:00 BP 139 / 80; Pulse 95; Resp 16; Pulse Ox 97% on R/A; zb 19:42 BP 148 / 88; Pulse 97; Resp 18; Pulse Ox 97% on R/A; zb 21:00 BP 162 / 82; Pulse 94; Resp 16; Pulse Ox 100% on R/A; zb 22:29 BP 135 / 79; Pulse 93; Resp 16; Pulse Ox 98% on R/A; zb 23:46 BP 147 / 78; Pulse 78; Resp 14; Pulse Ox 99% on R/A; zb ED Course: 14:28 Patient arrived in ED. aa5 14:30 Loren Marie, GILA is Primary Nurse. zb 14:33 Triage completed. zb 14:34 [facility]o Denney NP is [facility]. pm1 14:34 Arron Schulz MD is Attending Physician. pm1 14:46 Patient has correct armband on for positive identification. Bed in low position. Call zb light in reach. Side rails up X 1. Placed in gown. branch service leader on. Pulse ox on. NIBP on. Door closed. Noise minimized. 15:03 XRAY Abdomen 1 View (KUB) In Process Unspecified. EDMS 15:30 Zheng cath removed intact, balloon deflated. Zheng cath inserted, using sterile zb technique, 16 Fr., by va, balloon inflated, to gravity drainage, clamped. 15:53 Splint/sling/ice applied as appropriate. zb 16:07 Inserted saline lock: 20 gauge in left antecubital area, using aseptic technique. Blood dh4 collected. 20:02 Estevan Ruff MD is Hospitalizing Provider. pm1 20:16 COVID-19 : Document "Date of Symptom Onset" if Symptomatic. Sent. zb 23:45 No provider procedures requiring assistance completed. Patient admitted, IV remains in zb place. 23:47 Report given to 2nd floor nurse. zb Administered Medications: 16:45 Drug: Fleet Enema 133 ml Route: MD; zb 18:15 Follow up: Response: Marked relief of symptoms zb 17:50 Drug: Rocephin (cefTRIAXone) 1 grams Route: IV; Rate: calculated rate; Site: left zb antecubital; 18:15 Follow up: Response: No adverse reaction; IV Status: Completed infusion; IV Intake: 20mlzb 18:00 Drug: morphine 2 mg {Note: rass +1.} Route: IVP; Site: left antecubital; zb 18:15 Follow up: Response: No adverse reaction; Pain is decreased; RASS: Alert and Calm (0) zb 18:00 Drug: Zofran (Ondansetron) 4 mg Route: IVP; Site: left antecubital; zb 18:16 Follow up: Response: No adverse reaction zb 20:16 Drug: NS 0.9% 500 ml Route: IV; Rate: bolus; Site: left antecubital; zb 22:20 Follow up: IV Status: Completed infusion; IV Intake: 500ml zb 21:29 Drug: NS 0.9% 1000 ml Route: IV; Rate: 100 ml/hr; Site: left antecubital; zb 23:45 Follow up: Response: No adverse reaction; IV Status: Infusion continued upon admission; zb IV Intake: 200ml Intake: 18:15 IV: 20ml; Total: 20ml. zb 22:20 IV: 500ml; Total: 520ml. zb 23:45 IV: 200ml; Total: 720ml. zb Outcome: 20:02 Decision to Hospitalize by Provider. pm1 23:45 Admitted to Med/surg accompanied by tech, via stretcher, room 225, with chart, Report zb called to 2nd floor RN. 23:45 Condition: stable 23:45 Instructed on the need for admit, Demonstrated understanding of instructions. 06/13 00:11 Patient left the ED. zb Signatures: Dispatcher [facility] EDFina Perdue RN RN aa5 Cheo Denney, MELIZA MANAGED SERVICES CONSULTANT pm1 David Eden 4 Loren Marie RN RN zb Corrections: (The following items were deleted from the chart) 06/12 14:53 14:30 Chief complaint: EMS states: Family called for EMS for abdominal pain. Patient shavon was here last night told to take milax and sent home. Home nurse stated she could here bowel sounds. no nausea or vomiting. zb 18:15 18:00 morphine 2 mg IVP in left antecubital zb zb
[2020-06-12] MEDS ORDERED: NA CHLORIDE 0.9% 1,000 ML ONE (20:17)
--- NOTE | 2020-06-12 20:34 | P.HP ---
Certification for Inpatient Patient admitted to: Observation With expected LOS: <2 Midnights Patient will require the following post-hospital care: None Practitioner: I am a practitioner with admitting privileges, knowledge of patient current condition, hospital course, and medical plan of care. Services: Services provided to patient in accordance with Admission requirements found in Title 42 Section 412.3 of the Code of Federal Regulations <Cuba Tello - Last Filed: 06/12/20 20:26> Patient History Date of Service: 06/12/20 Reason for admission: UTI, leukocytosis History of Present Illness: 60-year-old female with history of atrial fibrillation, recent stroke in December 2019 with resulting aphasia/dysphagia, hypertension, presents emergency care for abdominal pain. Patient lives with her daughter who helps care for her, daughter reports over last couple days she has been grabbing at her abdomen and crying, also complaining of leg pain whenever daughter stretches her legs. Patient only able to use the word yes on exam. Patient is noted to have some abdominal tenderness, wincing with palpation of the lower abdomen. PEG tube in place, dressing intact, site without significant redness swelling or drainage. Berger catheter was in place, this was replaced and fresh sample was collected demonstrating urinary tract infection. Urine significant for positive nitrate on dip greater than 50 bacteria 10-20 white blood cells, no red blood cells. Patient with previous UTI with MRI say, Serratia marcescens, was sensitive to Rocephin. Daughter also reports he is having difficulty caring for her mother at home and wishes for her to be placed at a prison facility if this is possible. Patient is a leukocytosis, yesterday white blood cell count was 11, today it is 14 with a left shift, CT abdomen pelvis performed last night demonstrates possible gastritis, urinary bladder wall thickening sug gestive of cystitis , large stool volume, suspected flow-limiting stenosis in bilateral internal and external iliac arteries. Case was discussed with patient's daughter and ED provider who wish for observation admit for leukocytosis, UTI and evaluation for placement. - Past Medical/Surgical History -: AFIB -: CVA -: HTN -: HYPERLIPIDEMIA -: DEPRESSION -: INDWELLING BERGER -: PEG tube Psychosocial/ Personal History: Patient disabled, lives with daughter - Family History Family History: Reviewed- Non-Contributory - Social History Smoking Status: Unknown if ever smoked Alcohol use: No CD- Drugs: No Place of Residence: Home <C[place] Tello - Last Filed: 06/12/20 20:26> Date of Service: 06/13/20 <Estevan Ruff - Last Filed: 06/13/20 14:54> Allergies No Known Allergies Allergy (Verified 06/06/20 00:55) Home Medications: Amlodipine [Norvasc*] 1 tab PO DAILY 06/06/20 Aspirin 81 mg PO DAILY 06/06/20 Atorvastatin Calcium 1 tab OSTOMY SEECOM 06/06/20 Clopidogrel Bisulfate [Plavix] 1 tab OSTOMY DAILY 06/06/20 Famotidine 1 tab PO Q12H 06/06/20 Risperidone [Risperdal] 1 tab OSTOMY SEECOM 06/06/20 levETIRAcetam [Levetiracetam] 7.5 ml OSTOMY BID 06/06/20 lisinopriL [Lisinopril] 1 tab PO DAILY 06/06/20 Review of Systems is unable to be obtained <[place] Tello - Last Filed: 06/12/20 20:26> Physical Examination - Physical Exam General: Alert, Demented, Confused HEENT: Atraumatic, Other (Mucous membranes dry) Neck: Supple Respiratory: Clear to auscultation bilaterally Cardiovascular: Normal S1 S2, Irregular heart rate/rhythm (AFib, rate controlled) Capillary refill: <2 Seconds Gastrointestinal: Normal bowel sounds, Other (PEG tube in place), Tenderness (Suprapubic tenderness noted on exam) Musculoskeletal: No erythema, No tenderness Integumentary: No significant lesion, No tenderness/swelling, No erythema Neurological: Other (Patient is awake, only responds with the word yes when questioned. Moves all 4 extremities.) Lymphatics: No axilla or inguinal lymphadenopathy Urinary: Berger catheter - Studies Laboratory Data (last 24 hrs) 06/12/20 16:04: WBC 14.20 H D, Hgb 12.6, Hct 38.6, Plt Count 236 06/12/20 16:04: Sodium 140, Potassium 4.5, BUN 17, Creatinine 0.80, Glucose 120 H, Total Bilirubin 0.5, AST 7 L, ALT 15, Alkaline Phosphatase 61, Lipase 109 <[place] Tello - Last Filed: 06/12/20 20:26> - Studies Laboratory Data (last 24 hrs) 06/13/20 03:51: Sodium 143, Potassium 3.9, BUN 15, Creatinine 0.58, Glucose 116 H, Magnesium 1.9, Total Bilirubin 0.4, AST 6 L, ALT 12, Alkaline Phosphatase 52 06/13/20 03:51: WBC 14.30 H, Hgb 10.9 L, Hct 32.2 L D, Plt Count 196 06/12/20 16:04: WBC 14.20 H D, Hgb 12.6, Hct 38.6, Plt Count 236 06/12/20 16:04: Sodium 140, Potassium 4.5, BUN 17, Creatinine 0.80, Glucose 120 H, Total Bilirubin 0.5, AST 7 L, ALT 15, Alkaline Phosphatase 61, Lipase 109 <Estevan Ruff - Last Filed: 06/13/20 14:54> Assessment and Plan - Plan Assessment UTI, leukocytosis complicated by indwelling Berger catheter History of CVA with resulting aphasia, dysphagia with PEG tube in place Atrial fibrillation: Hypertension Hyperlipidemia Plan UTI, leukocytosis complicated by indwelling Berger catheter: Previous cultures with MRSA, Serratia. Urine culture and blood culture obtained and currently pending. Continue with IV hydration, patient does appear very dry, continue Rocephin. DVT prophylaxis heparin 5000 subcutaneous twice daily. Daughter cares for patient at home states that she is having less difficulty caring for her mother and would like to evaluate the possibility of placement at discharge. History of CVA with resulting aphasia, dysphagia with PEG tube in place: Dietary consult in place. Patient appears malnourished, daughter reports she is having difficulty with compliance with tube feeds. Atrial fibrillation: Will need to review home medications, not available for review at this time. Hypertension: Obtain and continue home medication. Hyperlipidemia: Obtain and continue home medication. Discharge Plan: Group Home Plan to discharge in: 48 Hours - Advance Directives Does patient have a Living Will: No Does patient have a Durable POA for Healthcare: No - Code Status/Comfort Care Code Status Assessed: Yes (FC) Time Spent Managing Pts Care (In Minutes): 55 <[place] Tello - Last Filed: 06/12/20 20:26> - Plan Plan of care reviewed as noted above. Continue IV antibiotics for UTI. Patient with history of MRSA Please see my progress note on 06/13 for further information <Estevan Ruff - Last Filed: 06/13/20 14:54>
[2020-06-13] MEDS ORDERED: ONDANSETRON 4 MG/2 ML VIAL IV PRN (00:09)
[2020-06-13] MEDS ORDERED: ACETAMINOPHEN 500 MG TAB FT PRN (00:09)
[2020-06-13] MEDS: NA CHLORIDE 0.9% 1,000 ML IV SCH ×3 (00:33→20:09)
[2020-06-13] MEDS: HEPARIN 5000 UNIT/ML 1 ML VIAL SQ SCH ×3 (00:34→20:48)
[2020-06-13 01:41] VITALS: BMI 16.8
[2020-06-13 04:14] LABS: Absolute Lymphocytes (CBC) 1.4 K/uL (0.7-4.9); Basophils % 0.2 % (0-1.3); Hematocrit 32.2 % (36.0-45.0); Lymphocytes % 9.8 % (15.3-44.8); MPV 10.1 fL (7.6-11.3); RBC Red Blood Cell Count 3.63 M/uL (3.86-4.86)
[2020-06-13 04:36] LABS: Bicarbonate 28 mmol/L (21-32); Potassium 3.9 mmol/L (3.5-5.1); Sodium Level 143 mmol/L (136-145)
[2020-06-13 04:37] LABS: ALT/SGPT 12 U/L (12-78); AST/SGOT 6 U/L (15-37); Albumin 2.8 g/dL (3.4-5.0); Alkaline Phosphatase 52 U/L (45-117); BUN Blood Urea Nitrogen 15 mg/dL (7-18); Bilirubin Total 0.4 mg/dL (0.2-1.0); Glucose Level 116 mg/dL (74-106); Magnesium 1.9 mg/dL (1.8-2.4); Protein, Total 6.6 g/dL (6.4-8.2)
[2020-06-13] MEDS: VANCOMYCIN/NS 1 gm 1 GM/250 ML BAG IVPB SCH ×2 (05:00→23:31)
[2020-06-13] MEDS ORDERED: ATORVASTATIN 40 MG TAB FT SCH (05:00)
[2020-06-13] MEDS ORDERED: FAMOTIDINE 20 MG TAB FT SCH (05:00)
[2020-06-13] MEDS ORDERED: RISPERIDONE 0.25 MG TABLET FT SCH (05:00)
[2020-06-13] MEDS ORDERED: NA CHLORIDE 0.9% 250 ML ONE (06:22)
[2020-06-13] MEDS ORDERED: VANCOMYCIN 1 GM/VIAL ONE (06:25)
[2020-06-13] MEDS ORDERED: POTASSIUM 25 MEQ EFFERV TAB PO ONE (06:51)
[2020-06-13] MEDS ORDERED: KCL 20 MEQ/100 mL IVPB 20 MEQ/100 ML BAG IV SCH (07:00)
[2020-06-13] MEDS ORDERED: CEFTRIAXONE 1 GM/NS 50 ML 1 GM/50 ML BAG IV SCH (09:00)
[2020-06-13] MEDS: ASPIRIN 81 MG CHEWABLE TABLET PO SCH (09:58)
[2020-06-13] MEDS: CLOPIDOGREL 75 MG TABLET FT SCH (09:58)
[2020-06-13] MEDS: lisinopriL 20 MG TAB FT SCH (09:58)
[2020-06-13] MEDS: AMLODIPINE 10 MG TAB PO SCH (09:58)
[2020-06-13] MEDS: CEFTRIAXONE/SWI 1gm 1 GM/10 ML SYR IV SCH (09:58)
[2020-06-13] MEDS: levETIRAcetam 500 MG/5 ML OSYR FT SCH ×2 (09:59→20:47)
--- NOTE | 2020-06-13 11:29 | P.CNS ---
Date of Consult: 06/13/20 Chief Complaint: UTI, leukocytosis History of Present Illness: The patient is a 60-year-old female with a past medical history of atrial fibrillation, recent stroke in December of 2027 with resulting in aphasia/dysphagia, hypertension who presented to the ED due to abdominal pain. Patient arrived with her daughter who takes care of the patient. Daughter states that the past couple of days the patient has been grabbbing at her stomach and crying and complaining of leg pain when her daughter stretches her legs. Patient is able to say yes and known but no other words. Patient has a PEG tube in place with dressing intact, there is purulent drainage and redness surrounding the PEG tube insertion site. Berger catheter also in place, was replaced in the ED and a fresh urine sample was collected which showed an urinary tract infection. Preliminary cultures show the growth of gram-negative rods awaiting species identification however is likely E. coli. Patient has been placed on Rocephin and vancomycin. Continue Rocephin for UTI and continue vancomycin for possible PEG tube insertion site infection. Allergies No Known Allergies Allergy (Verified 06/06/20 00:55) Home Medications: Amlodipine [Norvasc*] 1 tab PO DAILY 06/06/20 Aspirin 81 mg PO DAILY 06/06/20 Atorvastatin Calcium 1 tab OSTOMY SEECOM 06/06/20 Clopidogrel Bisulfate [Plavix] 1 tab OSTOMY DAILY 06/06/20 Famotidine 1 tab PO Q12H 06/06/20 Risperidone [Risperdal] 1 tab OSTOMY SEECOM 06/06/20 levETIRAcetam [Levetiracetam] 7.5 ml OSTOMY BID 06/06/20 lisinopriL [Lisinopril] 1 tab PO DAILY 06/06/20 - Past Medical/Surgical History -: AFIB -: CVA -: HTN -: HYPERLIPIDEMIA -: DEPRESSION -: INDWELLING BERGER -: PEG tube Psychosocial/ Personal History: Patient disabled, lives with daughter - Social History Smoking Status: Unknown if ever smoked Alcohol use: No CD- Drugs: No Caffeine use: No Place of Residence: Home Review of Systems 10-point ROS is otherwise unremarkable Physical Examination Temp Pulse Resp BP Pulse Ox 98.6 F 85 20 148/87 H 98 06/13/20 08:00 06/13/20 09:58 06/13/20 08:00 06/13/20 09:58 06/13/20 08:00 General: Alert, In no apparent distress HEENT: Atraumatic, Normocephalic, PERRLA Neck: Supple, 2+ carotid pulse no bruit Respiratory: Clear to auscultation bilaterally, Normal air movement Capillary refill: <2 Seconds Gastrointestinal: Normal bowel sounds, Tenderness (around PEG site) Musculoskeletal: No clubbing, No swelling, No contractures Integumentary: No rashes, No breakdown, No significant lesion Urinary: Berger catheter Laboratory Data (last 24 hrs) 06/12/20 16:04: WBC 14.20 H D, Hgb 12.6, Hct 38.6, Plt Count 236 06/12/20 16:04: Sodium 140, Potassium 4.5, BUN 17, Creatinine 0.80, Glucose 120 H, Total Bilirubin 0.5, AST 7 L, ALT 15, Alkaline Phosphatase 61, Lipase 109 Conclusions/Impression: Antibiotics: vancomycin start: 06/13 stop: 05/17 Indication: possible PEG site infection Rocephin start: 06/13 stop: 06/20 Indication: UTI Assessment: -UTI -possible PEG tube insertion site infection -leukocytosis with left shift -history of stroke in December of 2019 -atrial fibrillation plan: -Preliminary newer results show gram-negative rods awaiting species identification. Continue Rocephin for 7 days. -apply Bactroban on around PEG tube insertion site. Patient on empiric vancomycin for 7 days. leukocytosis with left shift: Likely due to urinary tract infection continuous antibiotics
[2020-06-13] MEDS ORDERED: SODIUM CHLORIDE 0.9% 10ML INJ IV PRN (13:06)
--- NOTE | 2020-06-13 14:52 | P.PN ---
Subjective Date of Service: 06/13/20 Chief Complaint: UTI, leukocytosis Subjective: Improving (aphasic, seems to have abdominal discomfort. whitish-rodriguez, foul-smelling drainage from PEG tube) Physical Examination - Vital Signs Temperature: 98.4 F Blood Pressure: 119/67 Pulse: 75 Respirations: 18 Pulse Ox (%): 98 - Studies Laboratory Data (last 24 hrs) 06/13/20 03:51: Sodium 143, Potassium 3.9, BUN 15, Creatinine 0.58, Glucose 116 H, Magnesium 1.9, Total Bilirubin 0.4, AST 6 L, ALT 12, Alkaline Phosphatase 52 06/13/20 03:51: WBC 14.30 H, Hgb 10.9 L, Hct 32.2 L D, Plt Count 196 06/12/20 16:04: WBC 14.20 H D, Hgb 12.6, Hct 38.6, Plt Count 236 06/12/20 16:04: Sodium 140, Potassium 4.5, BUN 17, Creatinine 0.80, Glucose 120 H, Total Bilirubin 0.5, AST 7 L, ALT 15, Alkaline Phosphatase 61, Lipase 109 Assessment & Plan Physician Review Additional Text: Physical Exam General: Alert, Demented, Confused, aphasic HEENT: Atraumatic, Other (Mucous membranes dry) Respiratory: Clear to auscultation bilaterally, nonlabored respirations Cardiovascular: Normal S1 S2, Irregular heart rate/rhythm (AFib, rate controlled) abd: soft, PEG tube with erythema surrounding ~1cm, purulent drainage foul smelling noted, seemed to have pain with mild manipulation Ext: no tenderness, no swelling, no erythema Neuro: aphasic, only responds yes to all questions Urinary: Zheng catheter Problem list UTI, leukocytosis complicated by indwelling Zheng catheter Concern for PEG tube site infection / cellulitis History of CVA with resulting aphasia, dysphagia with PEG tube in place Atrial fibrillation: Hypertension Hyperlipidemia UTI, leukocytosis concern for PEG tube site infection/cellulitis h/o CVA with aphasia, dysphagia, s/p PEG tube -continue IV Rocephin and vancomycin. Prior cultures growing MRSA and Serratia. ID consulted -seemed to have purulent drainage around the PEG tube and foul smelling, poss ibility of tube feeds given patient's stool burden, however has not had feeds since yesterday and appeared more purulent shows erythema around the PEG tube and pain -GI consulted, keep patient NPO for now -Dietary consult in place. Patient appears malnourished, daughter reports she is having difficulty with compliance with tube feeds. -zheng exchanged in ED on 06/12 Afib, HTN, HLD - obtain and continue home meds Code: full Dispo: anticipate dc home in ~48hrs, pending cultures Time Spent Managing Pts Care (In Minutes): 40
[2020-06-13] MEDS ORDERED: JEVITY 1.5 CAL LIQUID 1,000 ML BOT FT SCH (16:00)
--- NOTE | 2020-06-13 16:30 | RAD REPORT ---
EXAM DESCRIPTION: US - Lower Extremity Arterial Bilat - 06/13/2020 3:17 pm CLINICAL HISTORY: arterial stenosis noted on CT COMPARISON: None. TECHNIQUE: Doppler evaluation of bilateral lower extremity arterial tree performed. Velocity values and waveforms were obtained were obtained along the length of each lower extremity. Visual inspection of the lower extremity arterial tree performed. FINDINGS: CT imaging showed very dense calcifications of the aortoiliac vasculature. Monophasic waveform pattern seen along the length of each lower extremity compatible with flow restri cting stenoses in the iliac or aorta vasculature. No occlusion or focal flow restricting lesion ident ified. There prominent calcifications scattered throughout each lower extremity arterial tree. Veloci ty values and waveforms were relatively symmetric right versus left. IMPRESSION: Prominent atherosclerotic calcifications are scattered in the ruelas along the length of each lower extremity arterial tree. No focal high-grade stenosis or occlusion. Monophasic waveform along the entire length of each lower extremity consistent with flow restricting aortoiliac disease.
[2020-06-13] MEDS ORDERED: HYDROCODONE/APAP 5/325 MG TAB PO ONE (19:27)
[2020-06-13] MEDS: PANTOPRAZOLE 40 MG INJ IVP SCH (20:47)
[2020-06-13] MEDS: MUPIROCIN 2% OINT 22GM TUBE TOP SCH (20:48)
[2020-06-14] MEDS: NA CHLORIDE 0.9% 1,000 ML IV SCH ×2 (05:46→06:09)
[2020-06-14 05:58] LABS: ALT/SGPT 10 U/L (12-78); AST/SGOT 6 U/L (15-37); Albumin 2.2 g/dL (3.4-5.0); Alkaline Phosphatase 44 U/L (45-117); BUN Blood Urea Nitrogen 16 mg/dL (7-18); Bicarbonate 25 mmol/L (21-32); Bilirubin Total 0.4 mg/dL (0.2-1.0); Glucose Level 86 mg/dL (74-106); Magnesium 1.9 mg/dL (1.8-2.4); Potassium 3.7 mmol/L (3.5-5.1); Protein, Total 5.5 g/dL (6.4-8.2); Sodium Level 145 mmol/L (136-145)
[2020-06-14 06:47] LABS: Absolute Lymphocytes (CBC) 1.2 K/uL (0.7-4.9); Basophils % 0.6 % (0-1.3); Hematocrit 27.3 % (36.0-45.0); Lymphocytes % 18.3 % (15.3-44.8); MPV 11.4 fL (7.6-11.3); RBC Red Blood Cell Count 3.03 M/uL (3.86-4.86)
[2020-06-14] MEDS ORDERED: KCL 20 MEQ/100 mL IVPB 20 MEQ/100 ML BAG IV SCH (07:00)
[2020-06-14] MEDS: CEFTRIAXONE/SWI 1gm 1 GM/10 ML SYR IV SCH (08:29)
[2020-06-14] MEDS: HEPARIN 5000 UNIT/ML 1 ML VIAL SQ SCH ×2 (08:30→21:13)
[2020-06-14] MEDS: PANTOPRAZOLE 40 MG INJ IVP SCH ×2 (08:30→21:12)
[2020-06-14] MEDS: CLOPIDOGREL 75 MG TABLET FT SCH (09:00)
[2020-06-14] MEDS: levETIRAcetam 500 MG/5 ML OSYR FT SCH ×2 (09:00→21:12)
[2020-06-14] MEDS: lisinopriL 20 MG TAB FT SCH (09:00)
[2020-06-14] MEDS: AMLODIPINE 10 MG TAB PO SCH (09:00)
[2020-06-14] MEDS: MUPIROCIN 2% OINT 22GM TUBE TOP SCH ×2 (09:00→21:00)
[2020-06-14] MEDS: ASPIRIN 81 MG CHEWABLE TABLET PO SCH (09:00)
--- NOTE | 2020-06-14 11:35 | P.PN ---
Subjective Date of Service: 06/14/20 Chief Complaint: UTI, leukocytosis Patient seen examined at bedside. Wound culture from PEG insertion site grew coagulase positive Staph. Awaiting species identification likely normal skin jorgito. Urine grew Serratia sensitive to ceftriaxone-continue current antibiotic treatment. Review of Systems 10-point ROS is otherwise unremarkable Physical Examination - Vital Signs Temperature: 98.8 F Blood Pressure: 131/66 Pulse: 65 Respirations: 16 Pulse Ox (%): 99 - Studies Microbiology Data (last 24 hrs): 06/12/20 15:02 Clean Catch Urine [place] Count - Final >100,000 CFU/ML. 06/12/20 15:02 Clean Catch Urine - Final Serratia Marcescens Assessment And Plan - Plan General: Alert, In no apparent distress HEENT: Atraumatic, Normocephalic, PERRLA Neck: Supple, 2+ carotid pulse no bruit Respiratory: Clear to auscultation bilaterally, Normal air movement Capillary refill: <2 Seconds Gastrointestinal: Normal bowel sounds, Tenderness (around PEG site) Musculoskeletal: No clubbing, No swelling, No contractures Integumentary: No rashes, No breakdown, No significant lesion Urinary: Zheng catheter Laboratory Data (last 24 hrs) Conclusions/Impression: Antibiotics: vancomycin start: 06/13 stop: 05/17 Indication: bacteremia Rocephin start: 06/13 stop: 06/20 Indication: UTI Assessment: -UTI -bacteremia -possible PEG tube insertion site infection -leukocytosis with left shift -history of stroke in December of 2019 -atrial fibrillation plan: -Urine grew Serratia marcens sesative to ceftriaxone, continue a total of 7 days. -blood cultures taken on 06/12 grew gram-positive cocci in clusters. Awaiting species identification. Repeat blood culture taken on same day was negative. Could be contamination, awaiting species identification. -patient was seen by GI who stated that the PEG insertion site looked clean and dry and that he drainage from was likely just PEG tube feedings. -leukocytosis with left shift: resolved. -the medical management per primary team -continue monitor CBC and BMP -continue monitor for signs of infection Plan of care discussed with Dr. Abebe. Thank you for consultation. Physician Review Additional Text: Physical Exam General: Alert, Demented, Confused, aphasic HEENT: Atraumatic, Other (Mucous membranes dry) Respiratory: Clear to auscultation bilaterally, nonlabored respirations Cardiovascular: Normal S1 S2, Irregular heart rate/rhythm (AFib, rate contro lled) abd: soft, PEG tube with erythema surrounding ~1cm, purulent drainage foul smelling noted, seemed to have pain with mild manipulation Ext: no tenderness, no swelling, no erythema Neuro: aphasic, only responds yes to all questions Urinary: Zheng catheter Problem list UTI, leukocytosis complicated by indwelling Zheng catheter Concern for PEG tube site infection / cellulitis History of CVA with resulting aphasia, dysphagia with PEG tube in place Atrial fibrillation: Hypertension Hyperlipidemia UTI, leukocytosis concern for PEG tube site infection/cellulitis h/o CVA with aphasia, dysphagia, s/p PEG tube -continue IV Rocephin and vancomycin. Prior cultures growing MRSA and Serratia. ID consulted -seemed to have purulent drainage around the PEG tube and foul smelling, possibility of tube feeds given patient's stool burden, however has not had feeds since yesterday and appeared more purulent shows erythema around the PEG tube and pain -GI consulted, keep patient NPO for now -Dietary consult in place. Patient appears malnourished, daughter reports she is having difficulty with compliance with tube feeds. -zheng exchanged in ED on 06/12 Afib, HTN, HLD - obtain and continue home meds Code: full Dispo: anticipate dc home in ~48hrs, pending cultures
--- NOTE | 2020-06-14 12:23 | P.PN ---
Subjective Date of Service: 06/14/20 Chief Complaint: UTI, leukocytosis Subjective: No new changes (pt is aphasic, reports pain - difficult to localize, seems to be in epigastric region and suprapubic. no acute events overnight) Review of Systems is unable to be obtained Physical Examination - Vital Signs Temperature: 98.8 F Blood Pressure: 131/66 Pulse: 65 Respirations: 16 Pulse Ox (%): 99 - Studies Microbiology Data (last 24 hrs): 06/12/20 15:02 Clean Catch Urine [place] Count - Final >100,000 CFU/ML. 06/12/20 15:02 Clean Catch Urine - Final Serratia Marcescens Assessment & Plan Physician Review Additional Text: Physical Exam General: Alert, aphasic, +dementia HEENT: Normal conjunctiva, sclerae anicteric Respiratory: Clear to auscultation bilaterally, nonlabored respirations on room air Cardiovascular: Normal S1 S2, Irregular heart rate/rhythm (AFib, rate controlled) Abd: soft, PEG tube with minimal erythema, no purulent drainage today, TTP with minimal manipulation of area Ext: no tenderness, no swelling, no erythema, warm Neuro: aphasic, only responds yes to all questions Urinary: Zheng catheter Problem list UTI, leukocytosis complicated by indwelling Zheng catheter Concern for PEG tube site infection / cellulitis History of CVA with resulting aphasia, dysphagia with PEG tube in place Atrial fibrillation: Hypertension Hyperlipidemia Aortoiliac disease / PAD Anemia UTI, leukocytosis concern for PEG tube site infection/cellulitis h/o CVA with aphasia, dysphagia, s/p PEG tube -continue IV Rocephin and vancomycin. Prior cultures growing MRSA and Serratia. ID consulted -urine growing Serratia, sensitive to Rocephin -1 of 4 blood cultures growing Gram positive toxin, likely contaminant since only 1/4 bottles is growing this -seemed to have purulent drainage around the PEG tube and foul smelling, possibility of tube feeds given patient's stool burden -GI consulted, feels PEG tube looks ok, no concern for infection / or improved since yesterday, continue PPI for gastritis -Dietary consult in place. Patient appears malnourished, daughter reports she is having difficulty with compliance with tube feeds. -zheng exchanged in ED on 06/12 Anemia -no obvious bleeding -likely dilutional due to fluids patient has been receiving -will obtain bloodwork to eval -hemoccult ordered - would likely be positive with recent PEG placement and gastritis - which wouldn't lead to acute anemia Aortoiliac disease / PAD noted on CT abd/pelvis, and arterial dopplers (06/13): Prominent atherosclerotic calcifications are scattered in the ruelas along the length of each lower extremity arterial tree. No focal high-grade stenosis or occlusion. Monophasic waveform along the entire length of each lower extremity consistent with flow restricting aortoiliac disease. Afib, HTN, HLD - continue home meds Code: full Dispo: anticipate dc in ~24-48hrs, pending cultures. Family report difficulty managing patient at home SW/CM consulted to continue working on placement for patient Time Spent Managing Pts Care (In Minutes): 35
[2020-06-14 14:03] LABS: RBC Red Blood Cell Count 3.39 M/uL (3.86-4.86)
[2020-06-14] MEDS: VANCOMYCIN/NS 1 gm 1 GM/250 ML BAG IVPB SCH (17:30)
[2020-06-15 04:47] LABS: Absolute Lymphocytes (CBC) 1.6 K/uL (0.7-4.9); Basophils % 0.8 % (0-1.3); Hematocrit 31.8 % (36.0-45.0); Lymphocytes % 28.5 % (15.3-44.8); MPV 10.5 fL (7.6-11.3); RBC Red Blood Cell Count 3.55 M/uL (3.86-4.86)
[2020-06-15 05:10] LABS: ALT/SGPT 12 U/L (12-78); AST/SGOT 10 U/L (15-37); Albumin 2.4 g/dL (3.4-5.0); Alkaline Phosphatase 46 U/L (45-117); BUN Blood Urea Nitrogen 15 mg/dL (7-18); Bicarbonate 27 mmol/L (21-32); Bilirubin Total 0.2 mg/dL (0.2-1.0); Glucose Level 85 mg/dL (74-106); Magnesium 1.8 mg/dL (1.8-2.4); Potassium 3.4 mmol/L (3.5-5.1); Protein, Total 5.8 g/dL (6.4-8.2); Sodium Level 143 mmol/L (136-145)
[2020-06-15] MEDS: HEPARIN 5000 UNIT/ML 1 ML VIAL SQ SCH ×2 (09:00→20:55)
[2020-06-15] MEDS ORDERED: POTASSIUM 25 MEQ EFFERV TAB PO ONE (09:00)
[2020-06-15] MEDS: CEFTRIAXONE/SWI 1gm 1 GM/10 ML SYR IV SCH (09:00)
[2020-06-15] MEDS: CLOPIDOGREL 75 MG TABLET FT SCH (09:00)
[2020-06-15] MEDS ORDERED: MAGNESIUM SULFATE 1 gm IVPB 1 GM/100 ML BAG IV ONE (09:00)
[2020-06-15] MEDS: ASPIRIN 81 MG CHEWABLE TABLET PO SCH (09:00)
[2020-06-15] MEDS: PANTOPRAZOLE 40 MG INJ IVP SCH ×2 (09:00→20:55)
[2020-06-15] MEDS: MUPIROCIN 2% OINT 22GM TUBE TOP SCH ×3 (09:00→21:00)
[2020-06-15] MEDS: AMLODIPINE 10 MG TAB PO SCH (09:21)
[2020-06-15] MEDS: lisinopriL 20 MG TAB FT SCH (09:21)
[2020-06-15] MEDS: levETIRAcetam 500 MG/5 ML OSYR FT SCH ×2 (09:35→20:55)
--- NOTE | 2020-06-15 10:14 | P.PN ---
Subjective Date of Service: 06/15/20 Chief Complaint: UTI, leukocytosis Patient seen examined at bedside. Wound culture grew MRSA, continue vancomycin. Repeat blood culture showed growth of coagulase-negative Staph, likely contamination however additional blood culture has been ordered to rule out infection. Patient remains afebrile no leukocytosis. Review of Systems 10-point ROS is otherwise unremarkable Physical Examination - Vital Signs Temperature: 98.3 F Blood Pressure: 126/67 Pulse: 58 Respirations: 16 Pulse Ox (%): 98 - Studies Microbiology 06/13/20 10:20 Wound - Abdomen Gram Stain - Final 06/13/20 10:20 Wound - Abdomen Culture & Sensitivity - Final Meth Resistant Staph Aureus 06/12/20 20:15 Blood - Blood Aerobic Blood Culture - Preliminary No growth in 24 hours. 06/12/20 20:15 Blood - Blood Anaerobic Blood Culture - Preliminary 06/12/20 20:15 Blood - Blood Gram Stain - Preliminary 06/12/20 20:06 Blood - Blood Aerobic Blood Culture - Preliminary No growth in 24 hours. 06/12/20 20:06 Blood - Blood Anaerobic Blood Culture - Preliminary 06/12/20 20:06 Blood - Blood Gram Stain - Preliminary 06/12/20 15:02 Clean Catch Urine [place] Count - Final >100,000 CFU/ML. 06/12/20 15:02 Clean Catch Urine - Final Serratia Marcescens Microbiology Data (last 24 hrs): 06/13/20 10:20 Wound - Abdomen Gram Stain - Final 06/13/20 10:20 Wound - Abdomen Culture & Sensitivity - Final Meth Resistant Staph Aureus 06/12/20 15:02 Clean Catch Urine [place] Count - Final >100,000 CFU/ML. 06/12/20 15:02 Clean Catch Urine - Final Serratia Marcescens Assessment And Plan - Plan General: Alert, In no apparent distress HEENT: Atraumatic, Normocephalic, PERRLA Neck: Supple, 2+ carotid pulse no bruit Respiratory: Clear to auscultation bilaterally, Normal air movement Capillary refill: <2 Seconds Gastrointestinal: Normal bowel sounds, Tenderness (around PEG site) Musculoskeletal: No clubbing, No swelling, No contractures Integumentary: No rashes, No breakdown, No significant lesion Urinary: Rogers catheter Laboratory Data (last 24 hrs) Conclusions/Impression: Antibiotics: vancomycin start: 06/13 stop: 05/17 Indication: bacteremia/ PEG site infection Rocephin start: 06/13 stop: 06/20 Indication: UTI Assessment: -UTI -bacteremia -possible PEG tube insertion site infection -leukocytosis with left shift -history of stroke in December of 2019 -atrial fibrillation plan: -Urine grew Serratia marcens sesative to ceftriaxone, continue a total of 7 days. -blood cultures taken on 06/12 grew gram-positive cocci in clusters. Awaiting species identification. Repeat blood culture taken on same day was negative. Could be contamination, awaiting species identification. -patient was seen by GI who stated that the PEG insertion site looked clean and dry and that he drainage from was likely just PEG tube feedings. Culture grew M RSA: Continue vancomycin -leukocytosis with left shift: resolved. -the medical management per primary team -continue monitor CBC and BMP -continue monitor for signs of infection Plan of care discussed with Dr. Abebe. Thank you for consultation.
[2020-06-15] MEDS: VANCOMYCIN/NS 1 gm 1 GM/250 ML BAG IVPB SCH (11:53)
--- NOTE | 2020-06-15 16:29 | P.PN ---
Subjective Date of Service: 06/15/20 Chief Complaint: UTI, leukocytosis Subjective: Improving (No acute events overnight. Culture from the PEG tube site growing MRSA. Aphasic) Review of Systems is unable to be obtained Physical Examination - Vital Signs Temperature: 98.6 F Blood Pressure: 137/80 Pulse: 61 Respirations: 18 Pulse Ox (%): 99 - Studies Microbiology Data (last 24 hrs): 06/13/20 10:20 Wound - Abdomen Gram Stain - Final 06/13/20 10:20 Wound - Abdomen Culture & Sensitivity - Final Meth Resistant Staph Aureus Assessment & Plan Physician Review Additional Text: Physical Exam General: Alert, aphasic, only says yes, follows commands HEENT: Normal conjunctiva, sclerae anicteric Respiratory: Clear to auscultation bilaterally, nonlabored respirations on room air Cardiovascular: Normal S1 S2, Irregular heart rhythm Abd: soft, PEG tube with minimal erythema, no purulent drainage, TTP with minimal manipulation of area. no suprapubic tenderness Ext: no tenderness, no swelling, no erythema, warm Neuro: aphasic, only responds yes to all questions Urinary: Zheng catheter Problem list UTI, leukocytosis complicated by indwelling Zheng catheter Concern for PEG tube site infection / cellulitis History of CVA with resulting aphasia, dysphagia with PEG tube in place Atrial fibrillation: Hypertension Hyperlipidemia Aortoiliac disease / PAD Anemia UTI, leukocytosis concern for PEG tube site infection/cellulitis h/o CVA with aphasia, dysphagia, s/p PEG tube -continue IV Rocephin and vancomycin. Prior cultures growing MRSA and Serratia. ID consulted -urine growing Serratia, sensitive to Rocephin. PEG tube site: MRSA+ -1 of 4 blood cultures growing CONS, likely contaminant since only 1/4 bottles -seemed to have purulent drainage around the PEG tube and foul smelling, possibility of tube feeds given patient's stool burden -GI consulted, feels PEG tube looks ok, no concern for infection / or improved since yesterday, continue PPI for gastritis, no further intervention planned at this time -Dietary consult in place. Patient appears malnourished, daughter reports she is having difficulty with compliance with tube feeds. -zheng exchanged in ED on 06/12 -repeated blood culture today Anemia -no obvious bleeding, stable -likely dilutional due to fluids patient has been receiving Aortoiliac disease / PAD noted on CT abd/pelvis, and arterial dopplers (06/13): Prominent atherosclerotic calcifications are scattered in the ruelas along the length of each lower extremity arterial tree. No focal high-grade stenosis or occlusion. Monophasic waveform along the entire length of each lower extremity consistent with flow restricting aortoiliac disease. Afib, HTN, HLD - continue home meds Code: full Dispo: anticipate dc in ~48-72hrs, pending repeat blood cultures. Family report difficulty managing patient at home SW/REY consulted to continue working on placement for patient Time Spent Managing Pts Care (In Minutes): 35
[2020-06-16] MEDS: VANCOMYCIN/NS 1 gm 1 GM/250 ML BAG IVPB SCH ×2 (04:26→22:47)
[2020-06-16 07:46] LABS: Absolute Lymphocytes (CBC) 1.7 K/uL (0.7-4.9); Basophils % 1.2 % (0-1.3); Hematocrit 34.7 % (36.0-45.0); Lymphocytes % 37.8 % (15.3-44.8); MPV 9.8 fL (7.6-11.3)
[2020-06-16 08:10] LABS: ALT/SGPT 19 U/L (12-78); AST/SGOT 11 U/L (15-37); Albumin 2.6 g/dL (3.4-5.0); Alkaline Phosphatase 52 U/L (45-117); BUN Blood Urea Nitrogen 10 mg/dL (7-18); Bicarbonate 27 mmol/L (21-32); Bilirubin Total 0.3 mg/dL (0.2-1.0); C-Reactive Protein 8.73 mg/L (<3.00); Glucose Level 86 mg/dL (74-106); Potassium 3.6 mmol/L (3.5-5.1); Protein, Total 6.2 g/dL (6.4-8.2); Sodium Level 142 mmol/L (136-145)
[2020-06-16] MEDS: MUPIROCIN 2% OINT 22GM TUBE TOP SCH ×2 (09:00→20:46)
[2020-06-16] MEDS: CEFTRIAXONE/SWI 1gm 1 GM/10 ML SYR IV SCH ×2 (09:00→17:38)
--- NOTE | 2020-06-16 09:04 | P.PN ---
Subjective Date of Service: 06/16/20 Chief Complaint: UTI, leukocytosis Subjective: No new changes (No acute events overnight. Remains afebrile, vitals within normal limits and stable comma. CRP downtrending. Pt tired / sleepy this morning. Denies pain when asked, then pulled covers over her head) Physical Examination - Vital Signs Temperature: 97.8 F Blood Pressure: 137/81 Pulse: 59 Respirations: 16 Pulse Ox (%): 98 - Studies Microbiology Data (last 24 hrs): 06/13/20 10:20 Wound - Abdomen Gram Stain - Final 06/13/20 10:20 Wound - Abdomen Culture & Sensitivity - Final Meth Resistant Staph Aureus Assessment & Plan Physician Review Additional Text: Physical Exam General: Alert, aphasic, only says yes, follows commands, not wanting to interact this morning HEENT: Normal conjunctiva, sclerae anicteric Respiratory: Clear to auscultation bilaterally, nonlabored respirations on room air Cardiovascular: Normal S1 S2, Irregular heart rhythm Abd: soft, PEG tube site without erythema, no purulent drainage, no TTP this morning, prior PEG site with small granulation tissue Ext: no tenderness, no swelling, no erythema, warm /perfused Urinary: Rogers catheter Problem list UTI, leukocytosis complicated by indwelling Rogers catheter Concern for PEG tube site infection / cellulitis History of CVA with resulting aphasia, dysphagia with PEG tube in place Atrial fibrillation: Hypertension Hyperlipidemia Aortoiliac disease / PAD Anemia UTI, leukocytosis concern for PEG tube site infection/cellulitis h/o CVA with aphasia, dysphagia, s/p PEG tube -continue IV Rocephin and vancomycin. Prior cultures growing MRSA and Serratia. ID consulted -urine growing Serratia, sensitive to Rocephin. PEG tube site: MRSA+ -blood cultures with CONS - contaminant; repeat blood cx done on 06/15 per ID -GI consulted, feels PEG tube looks ok, advised continue PPI for gastritis, no further intervention planned at this time -Dietary consult in place. Patient appears malnourished, daughter reports she is having difficulty with compliance with tube feeds at home -Rogers exchanged in ED on 06/12 -overall seems to be improving -awaiting blood culture from 06/15 to r/o bacteremia Anemia -no obvious bleeding, stable -likely dilutional due to fluids patient has been receiving Aortoiliac disease / PAD noted on CT abd/pelvis, and arterial dopplers (06/13): Prominent atherosclerotic calcifications are scattered in the ruelas along the length of each lower extremity arterial tree. No focal high-grade stenosis or occlusion. Monophasic waveform along the entire length of each lower extremity consistent with flow restricting aortoiliac disease. Afib, HTN, HLD - continue home meds Code: full Dispo: anticipate dc in ~48-72hrs, pending repeat blood cultures. Family report difficulty managing patient at home SW/REY consulted to continue working on placement for patient Time Spent Managing Pts Care (In Minutes): 35
[2020-06-16] MEDS: HEPARIN 5000 UNIT/ML 1 ML VIAL SQ SCH ×2 (09:58→20:46)
[2020-06-16] MEDS: PANTOPRAZOLE 40 MG INJ IVP SCH ×2 (09:58→20:45)
[2020-06-16] MEDS: ASPIRIN 81 MG CHEWABLE TABLET PO SCH (09:58)
[2020-06-16] MEDS: lisinopriL 20 MG TAB FT SCH (09:58)
[2020-06-16] MEDS: CLOPIDOGREL 75 MG TABLET FT SCH (09:59)
[2020-06-16] MEDS: AMLODIPINE 10 MG TAB PO SCH (09:59)
[2020-06-16] MEDS: levETIRAcetam 500 MG/5 ML OSYR FT SCH ×2 (10:16→20:45)
[2020-06-16] MEDS: JEVITY 1.5 CAL LIQUID 1,000 ML BOT FT SCH ×3 (13:00→20:47)
--- NOTE | 2020-06-16 21:41 | P.PN ---
Subjective Date of Service: 06/16/20 Chief Complaint: UTI, leukocytosis Subjective: No new changes (Pt seen and examined at bedside.), No C/O voiced Review of Systems 10-point ROS is otherwise unremarkable General: Unremarkable Eyes: Unremarkable ENT: Unremarkable Respiratory: Unremarkable Cardiovascular: Unremarkable Gastrointestinal: Unremarkable Genitourinary: Unremarkable Physical Examination - Vital Signs Temperature: 99.1 F Blood Pressure: 121/68 Pulse: 66 Respirations: 16 Pulse Ox (%): 99 - Physical Exam General: Alert, In no apparent distress, Cooperative HEENT: PERRLA, Mucous membr. moist/pink Neck: Supple Respiratory: Clear to auscultation bilaterally Cardiovascular: No edema Capillary refill: <2 Seconds Gastrointestinal: Normal bowel sounds, Other (tenderness around peg tube ) Musculoskeletal: No clubbing, No swelling Integumentary: Other (tenderness around peg tube) Neurological: Other (pt is aphasic ) Assessment And Plan - Plan UTI being treated with ceftriaxone for seven days. Blood cultures for 06/12 grew gram-positive cocci in clusters. Awaiting for species identification Peg tube culture showed MRSA, pt currently being treated with Vancomycin Medical management per primary team Continue monitor CBC and BMP Continue monitor for signs of infection Plan of care discussed with Dr. Abebe. Thank you for consultation. Plan to discharge in: Greater than 2 days Physician Review Additional Text: Physical Exam General: Alert, aphasic, only says yes, follows commands, not wanting to inter act this morning HEENT: Normal conjunctiva, sclerae anicteric Respiratory: Clear to auscultation bilaterally, nonlabored respirations on room air Cardiovascular: Normal S1 S2, Irregular heart rhythm Abd: soft, PEG tube site without erythema, no purulent drainage, no TTP this morning, prior PEG site with small granulation tissue Ext: no tenderness, no swelling, no erythema, warm /perfused Urinary: Rogers catheter Problem list UTI, leukocytosis complicated by indwelling Rogers catheter Concern for PEG tube site infection / cellulitis History of CVA with resulting aphasia, dysphagia with PEG tube in place Atrial fibrillation: Hypertension Hyperlipidemia Aortoiliac disease / PAD Anemia UTI, leukocytosis concern for PEG tube site infection/cellulitis h/o CVA with aphasia, dysphagia, s/p PEG tube -continue IV Rocephin and vancomycin. Prior cultures growing MRSA and Serratia. ID consulted -urine growing Serratia, sensitive to Rocephin. PEG tube site: MRSA+ -blood cultures with CONS - contaminant; repeat blood cx done on 06/15 per ID -GI consulted, feels PEG tube looks ok, advised continue PPI for gastritis, no further intervention planned at this time -Dietary consult in place. Patient appears malnourished, daughter reports she is having difficulty with compliance with tube feeds at home -Rogers exchanged in ED on 06/12 -overall seems to be improving -awaiting blood culture from 06/15 to r/o bacteremia Anemia -no obvious bleeding, stable -likely dilutional due to fluids patient has been receiving Aortoiliac disease / PAD noted on CT abd/pelvis, and arterial dopplers (06/13): Prominent atherosclerotic calcifications are scattered in the ruelas along the length of each lower extremity arterial tree. No focal high-grade stenosis or occlusion. Monophasic waveform along the entire length of each lower extremity consistent with flow restricting aortoiliac disease. Afib, HTN, HLD - continue home meds Code: full Dispo: anticipate dc in ~48-72hrs, pending repeat blood cultures. Family report difficulty managing patient at home SW/CM consulted to continue working on placement for patient Time Spent Managing PTS Care (In Minutes): 35
[2020-06-17] MEDS: levETIRAcetam 500 MG/5 ML OSYR FT SCH ×2 (09:00→21:09)
[2020-06-17] MEDS: CEFTRIAXONE/SWI 1gm 1 GM/10 ML SYR IV SCH (09:00)
[2020-06-17] MEDS: AMLODIPINE 10 MG TAB PO SCH (09:00)
[2020-06-17] MEDS: PANTOPRAZOLE 40 MG INJ IVP SCH ×2 (09:00→21:11)
[2020-06-17] MEDS: HEPARIN 5000 UNIT/ML 1 ML VIAL SQ SCH ×2 (09:00→21:15)
[2020-06-17] MEDS: MUPIROCIN 2% OINT 22GM TUBE TOP SCH ×2 (09:00→21:09)
[2020-06-17] MEDS: lisinopriL 20 MG TAB FT SCH (09:00)
[2020-06-17] MEDS: CLOPIDOGREL 75 MG TABLET FT SCH (09:00)
[2020-06-17] MEDS: ASPIRIN 81 MG CHEWABLE TABLET PO SCH (09:00)
[2020-06-17] MEDS: JEVITY 1.5 CAL LIQUID 1,000 ML BOT FT SCH ×5 (09:00→21:10)
--- NOTE | 2020-06-17 16:08 | P.PN ---
Subjective Date of Service: 06/17/20 Chief Complaint: UTI, leukocytosis Subjective: No new changes (doing well, without complaints, sleeping, seems more comfortable, no acute events overnight) Review of Systems 10-point ROS is otherwise unremarkable Physical Examination - Vital Signs Temperature: 97.5 F Blood Pressure: 114/60 Pulse: 66 Respirations: 16 Pulse Ox (%): 100 Assessment & Plan Physician Review Additional Text: Physical Exam General: Alert, aphasic, only says yes, follows commands HEENT: Normal conjunctiva, sclerae anicteric Respiratory: Clear to auscultation bilaterally, nonlabored respirations on room air Cardiovascular: Normal S1 S2, Irregular heart rhythm Abd: soft, PEG tube site ok, no purulent drainage, no TTP this morning, prior PEG site with small granulation tissue (just superior to current PEG) Ext: no tenderness, no swelling, no erythema, warm /perfused Urinary: Rogers catheter Problem list UTI, leukocytosis complicated by indwelling Rogers catheter Concern for PEG tube site infection / cellulitis History of CVA with resulting aphasia, dysphagia with PEG tube in place Atrial fibrillation: Hypertension Hyperlipidemia Aortoiliac disease / PAD Anemia UTI, leukocytosis concern for PEG tube site infection/cellulitis h/o CVA with aphasia, dysphagia, s/p PEG tube -continue IV Rocephin and Vancomycin. Prior cultures growing MRSA and Serratia. ID consulted -urine growing Serratia, sensitive to Rocephin. PEG tube site: MRSA+ -blood cultures with CONS - contaminant; repeat blood cx done on 06/15 per ID -GI consulted, feels PEG tube looks ok, advised continue PPI for gastritis, no further intervention planned at this time -Dietary consult in place. Patient appears malnourished, daughter reports she is having difficulty with compliance with tube feeds at home, pt had tenderness in area, wasn't allowing her to touch area / give feeds -Rogers exchanged in ED on 06/12 -overall improved -awaiting blood culture from 06/15 to r/o bacteremia, negative so far Anemia -no obvious bleeding, stable -likely dilutional due to fluids patient has been receiving Aortoiliac disease / PAD noted on CT abd/pelvis, and arterial dopplers (06/13): Prominent atherosclerotic calcifications are scattered in the ruelas along the length of each lower extremity arterial tree. No focal high-grade stenosis or occlusion. Monophasic waveform along the entire length of each lower extremity consistent with flow restricting aortoiliac disease. Discussed with daughter - would proceed with surgery /procedure if indicated may be cause of pt's b/l leg pain (daughter states was sometimes complaining of this before stroke) will obtain CT angio Afib, HTN, HLD - continue home meds Code: full Dispo: anticipate dc in ~24-48hrs, pending repeat blood cultures. Family report difficulty managing patient at home SW/CM consulted to continue working on placement for patient. Time Spent Managing Pts Care (In Minutes): 35
--- NOTE | 2020-06-17 17:38 | RAD REPORT ---
EXAM DESCRIPTION: CT - CT ANGIO ABD/PELVIS W CONTRAST - 06/17/2020 5:24 pm CLINICAL HISTORY: eval aorto-iliac stenosis, leg pain COMPARISON: Abdomen Pelvis W Contrast dated 06/11/2020; Lower Extremity Arterial Bilat dated 021 FINDINGS: CT angiography of the abdomen and pelvis with volume rendering was performed. Moderate atheromatous vascular calcification is seen at the celiac axis origin, SMA origin and DAVIDA or igin. Heavy atherosclerosis is seen at the ostium of both renal artery is noted. Mural thrombus is present narrowing the distal abdominal aortic lumen by 50%. No aortic aneurysm seen . Moderate to heavy atherosclerotic calcification involves both common iliac and external iliac arter y is with moderate levels of luminal narrowing present. IMPRESSION: Aortoiliac atherosclerotic disease is moderately severe with 50% luminal narrowing seen of the distal abdominal aorta and 50-70% luminal narrowing of both external iliac arteries, slightly worse on the left.
[2020-06-17] MEDS: VANCOMYCIN/NS 1 gm 1 GM/250 ML BAG IVPB SCH (17:39)
[2020-06-18 07:09] LABS: BUN Blood Urea Nitrogen 13 mg/dL (7-18); Bicarbonate 28 mmol/L (21-32); Glucose Level 86 mg/dL (74-106); Sodium Level 144 mmol/L (136-145)
[2020-06-18] MEDS ORDERED: RISPERIDONE 0.25 MG TABLET FT SCH (09:00)
[2020-06-18] MEDS: lisinopriL 20 MG TAB FT SCH (09:28)
[2020-06-18] MEDS: CEFTRIAXONE/SWI 1gm 1 GM/10 ML SYR IV SCH (09:29)
[2020-06-18] MEDS: HEPARIN 5000 UNIT/ML 1 ML VIAL SQ SCH (09:29)
[2020-06-18] MEDS: CLOPIDOGREL 75 MG TABLET FT SCH (09:29)
[2020-06-18] MEDS: PANTOPRAZOLE 40 MG INJ IVP SCH (09:29)
[2020-06-18] MEDS: ASPIRIN 81 MG CHEWABLE TABLET PO SCH (09:29)
[2020-06-18] MEDS: levETIRAcetam 500 MG/5 ML OSYR FT SCH (09:30)
[2020-06-18] MEDS: MUPIROCIN 2% OINT 22GM TUBE TOP SCH (09:31)
[2020-06-18] MEDS: JEVITY 1.5 CAL LIQUID 1,000 ML BOT FT SCH ×3 (09:31→16:00)
[2020-06-18] MEDS: AMLODIPINE 10 MG TAB PO SCH (09:39)
[2020-06-18 10:02] VITALS: O2SAT 98
[2020-06-18] MEDS: VANCOMYCIN/NS 1 gm 1 GM/250 ML BAG IVPB SCH (11:40)
[2020-06-18 13:23] VITALS: BP 112/56; TEMP 98.7
--- NOTE | 2020-06-18 15:32 | P.DS ---
Admission Date: 06/13/20 Discharge Date: 06/18/20 Disposition: DC HOME/HOME HEALTH CARE Discharge Condition: GOOD Reason for Admission: UTI, leukocytosis Consultations: Infectious Disease - Dr. Abebe Gastroenterology - Dr. Loja Procedures: KUB (06/12): Bowel gas pattern is unremarkable. Moderate to large amount stool within the colon. Rectum is distended with stool. Gastrostomy tube overlies the LUQ. Bilateral arterial Doppler lower extremities (06/13): Prominent atherosclerotic calcifications are scattered in the ruelas along the length of each lower extremity arterial tree. No focal high-grade stenosis or occlusion. Monophasic waveform along the entire length of each lower extremity consistent with flow restricting aortoiliac disease. CTA abdomen/pelvis (06/17): Aortoiliac atherosclerotic disease is moderately severe with 50% luminal narrowing seen of the distal abdominal aorta and 50-70% luminal narrowing of both external iliac arteries, slightly worse on the left. Moderate atheromatous vascular calcification is seen at the celiac axis origin, SMA origin and DAVIDA origin. Heavy atherosclerosis is seen at the ostium of both renal artery is noted. Mural thrombus is present narrowing the distal abdominal aortic lumen by 50%. No aortic aneurysm seen. Moderate to heavy atherosclerotic calcification involves both common iliac and external iliac artery is with moderate levels of luminal narrowing present. Problem list Acute cystitis secondary to chronic indwelling Rogers catheter PEG tube site infection / cellulitis History of CVA with resulting aphasia, dysphagia with PEG tube in place Paroxysmal atrial fibrillation Hypertension Hyperlipidemia Aortoiliac disease / PAD Anemia of chronic disease Brief History of Present Illness: 60yo F, PMHL afib, recent stroke in December 2019 with resulting aphasia/dysphagia, hypertension, presents emergency care for abdominal pain. Patient lives with her daughter (who is 24/7 caregiver). Daughter reports over last couple days she has been grabbing at her abdomen and crying, also complaining of leg pain whenever daughter stretches her legs. Leg pain has been ongoing for months per daughter. Patient only able to use the word yes on exam. Patient is noted to have some abdominal tenderness, wincing with palpation of the lower abdomen. PEG tube in place, dressing intact, site without significant redness swelling or drainage. Rogers catheter was in place, this was replaced and fresh sample was collected demonstrating urinary tract infection. Urine significant for positive nitrate on dip greater than 50 bacteria 10-20 white blood cells, no red blood cells. Patient with previous UTI with MRI say, Serratia marcescens, was sensitive to Rocephin. Daughter also reports she is having difficulty caring for her mother at home and wishes for her to be placed at a intermediate facility if this is possible. Patient had leukocytosis yesterday, WBC: 11, today it is 14 with a left shift, CT abdomen pelvis performed last night demonstrates possible gastritis, urinary bladder wall thickening suggestive of cystitis , large stool volume, suspected flow-limiting stenosis in bilateral internal and external iliac arteries. Case was discussed with patient's daughter and ED provider who wish for admission for acute cystitis and evaluation for placement. Hospital Course: Acute cystitis secondary to indwelling Rogers catheterpatient was empirically covered, urine grew Serratia, she was discharged with ciprofloxacin for 10 days. Rogers catheter was exchanged on admission PEG site infection/cellulitisno abscess or fluid collection noted on CT abdomen/pelvis obtained in ED visit prior to this admission. GI was consulted as the PEG tube was recently placed. He was evaluated and no further work-up or procedure was recommended. To continue treatment with antibiotics. Culture of the purulent drainage grew MRSA. Patient was covered with vancomycin. Blood cultures remain negative and patient was discharged on doxycycline per infectious disease recommendation. Her abdominal pain resolved -likely due to the cellulitis and her constipation. Bilateral leg painCT abdomen/pelvis obtained in the prior ED visit revealed incidental finding of what appears to be aorto iliac stenosis. Arterial Dopplers were obtained of bilateral extremities which revealed monophasic flow consistent with aortoiliac disease. This was discussed with the patient and the patient's daughter. This finding could be the cause for her lower extremity pain that is causing claudication-like symptoms. Patient's daughter stated that they would proceed with any procedure needed. CT angio was performed which revealed 50-70% stenosis in bilateral iliac arteries. Patient had warm and perfused bilateral lower extremities. No pain at rest. No ischemic signs/ulcers. Very faint bilateral DPs. These findings were discussed with the patient and her daughter, she was instructed to follow-up with vascular surgery soon as possible to have further evaluation and treatment planning. Patient's daughter expressed understanding and agreement with plan. Medication changes on discharge Newciprofloxacin and doxycycline for 10 days via PEG tube. Continue previously prescribed home medications and tube feeds. Follow-up: PCP in 3-5 days Vascular surgery in the next few weeks Vital Signs/Physical Exam: Physical Exam: General: Alert, aphasic, says a few words (yes, no, mumbles), shakes head yes/no as well, follows commands, smiling today HEENT: Normal conjunctiva, sclerae anicteric Respiratory: Clear to auscultation bilaterally, nonlabored respirations on room air Cardiovascular: Normal S1 S2, Irregular heart rhythm Abd: soft, PEG tube site ok, no purulent drainage, no TTP this morning, prior PEG site with small granulation tissue (just superior to current PEG) Ext: no tenderness, no swelling, no erythema, warm /perfused, weak bilateral DP Urinary: Rogers catheter in place Temp Pulse Resp BP Pulse Ox 98.7 F 54 19 112/56 L 98 06/18/20 12:00 06/18/20 12:00 06/18/20 12:00 06/18/20 12:00 06/18/20 12:00 Laboratory Data at Discharge: WBC 4.50 K/uL (4.3-10.9) D 06/16/20 07:27 Hgb 11.5 g/dL (12.0-15.0) L 06/16/20 07:27 Hct 34.7 % (36.0-45.0) L 06/16/20 07:27 Plt Count 211 K/uL (152-406) 06/16/20 07:27 Sodium Cancelled 06/18/20 Unknown Potassium Cancelled 06/18/20 Unknown BUN Cancelled 06/18/20 Unknown Creatinine Cancelled 06/18/20 Unknown Glucose Cancelled 06/18/20 Unknown Magnesium 2.0 mg/dL (1.8-2.4) 06/16/20 07:27 Total Bilirubin 0.3 mg/dL (0.2-1.0) 06/16/20 07:27 AST 11 U/L (15-37) L 06/16/20 07:27 ALT 19 U/L (12-78) 06/16/20 07:27 Alkaline Phosphatase 52 U/L (45-117) 06/16/20 07:27 Lipase 109 U/L (73-393) 06/12/20 16:04 Home Medications: RX: Amlodipine [Norvasc*] 1 tab PO DAILY 06/06/20 RX: Aspirin 81 mg PO DAILY 06/06/20 RX: Atorvastatin Calcium 1 tab OSTOMY SEECOM 06/06/20 RX: Clopidogrel Bisulfate [Plavix] 1 tab OSTOMY DAILY 06/06/20 RX: Famotidine 1 tab PO Q12H 06/06/20 RX: Risperidone [Risperdal] 1 tab OSTOMY SEECOM 06/06/20 RX: levETIRAcetam [Levetiracetam] 7.5 ml OSTOMY BID 06/06/20 RX: lisinopriL [Lisinopril] 1 tab PO DAILY 06/06/20 Ciprofloxacin [Ciprofloxacin 250 MG/5 ML Susp] 10 ml PO BID 10 Days #200 ml 06/18/20 RX: Doxycycline Hyclate 100 mg PO BID 10 Days #20 tablet 06/18/20 New Medications: Ciprofloxacin [Ciprofloxacin 250 MG/5 ML Susp] 10 ml PO BID 10 Days #200 ml RX: Doxycycline Hyclate 100 mg PO BID 10 Days #20 tablet Physician Discharge Instructions: You were found to have a urinary tract infection as well as a cellulitis around the PEG tube site. You are treated with IV antibiotics and discharged with doxycycline and ciprofloxacin for 10 days. Please take via PEG tube. Home health and home physical therapy were ordered and set up as well. Please follow-up with your PCP in 3-5 days. You are also found to have 50-70% stenosis/flow limitation through your iliac arteries on both sides (arteries that supply your legs with blood). This is likely the cause of your pain in your legs that you have been having for several months and due to atherosclerosis. Please follow-up with vascular surgery in the next few weeks, to review options and may need surgery/procedure done. Continue other home medications as previously prescribed. If there are any issues obtaining the antibiotics, please call the nurses station at the hospital. Diet: Tube feeds Activity: Fall precautions Followup: Unknown,U [Primary Care Provider] - Time spent managing pt's care (in minutes): 35
--- NOTE | 2020-06-18 16:23 | P.PN ---
Subjective Date of Service: 06/18/20 Chief Complaint: UTI, leukocytosis Patient seen examined at bedside. Doing well states she is not on any pain. She is anemic, recommend transfusion if hemoglobin drops below 7.0 P Review of Systems 10-point ROS is otherwise unremarkable Physical Examination - Vital Signs Temperature: 98.7 F Blood Pressure: 112/56 Pulse: 54 Respirations: 19 Pulse Ox (%): 98 - Studies Laboratory Last Values WBC 14.30 K/uL (4.3-10.9) H 06/13/20 03:51 RBC 3.63 M/uL (3.86-4.86) L 06/13/20 03:51 Hgb 10.9 g/dL (12.0-15.0) L 06/13/20 03:51 Hct 32.2 % (36.0-45.0) L D 06/13/20 03:51 MCV 88.7 fL (80-100) 06/13/20 03:51 MCH 30.1 pg (27.0-35.0) 06/13/20 03:51 MCHC 33.9 g/dL (32.0-36.0) 06/13/20 03:51 RDW 13.3 % (12.1-15.2) 06/13/20 03:51 Plt Count 196 K/uL (152-406) 06/13/20 03:51 MPV 10.1 fL (7.6-11.3) 06/13/20 03:51 Neutrophils % 83.4 % (41.7-73.7) H 06/13/20 03:51 Lymphocytes % 9.8 % (15.3-44.8) L 06/13/20 03:51 Monocytes % 6.4 % (3.3-12.3) 06/13/20 03:51 Eosinophils % 0.2 % (0-4.4) 06/13/20 03:51 Basophils % 0.2 % (0-1.3) 06/13/20 03:51 Absolute Neutrophils 11.9 K/uL (1.8-8.0) H 06/13/20 03:51 Absolute Lymphocytes 1.4 K/uL (0.7-4.9) 06/13/20 03:51 Absolute Monocytes 0.9 K/uL (0.1-1.3) 06/13/20 03:51 Absolute Eosinophils 0.0 K/uL (0-0.5) 06/13/20 03:51 Absolute Basophils 0.0 K/uL (0-0.5) 06/13/20 03:51 Sodium 143 mmol/L (136-145) 06/13/20 03:51 Potassium 3.9 mmol/L (3.5-5.1) 06/13/20 03:51 Chloride 109 mmol/L (98-107) H 06/13/20 03:51 Carbon Dioxide 28 mmol/L (21-32) 06/13/20 03:51 BUN 15 mg/dL (7-18) 06/13/20 03:51 Creatinine 0.58 mg/dL (0.55-1.3) 06/13/20 03:51 Estimated GFR > 90 mL/min (=/>90) 06/13/20 03:51 Glucose 116 mg/dL (74-106) H 06/13/20 03:51 Calcium 9.1 mg/dL (8.5-10.1) 06/13/20 03:51 Magnesium 1.9 mg/dL (1.8-2.4) 06/13/20 03:51 Total Bilirubin 0.4 mg/dL (0.2-1.0) 06/13/20 03:51 Direct Bilirubin 0.1 mg/dL (0-0.2) 06/12/20 16:04 AST 6 U/L (15-37) L 06/13/20 03:51 ALT 12 U/L (12-78) 06/13/20 03:51 Alkaline Phosphatase 52 U/L (45-117) 06/13/20 03:51 Serum Total Protein 6.6 g/dL (6.4-8.2) 06/13/20 03:51 Albumin 2.8 g/dL (3.4-5.0) L 06/13/20 03:51 Globulin 3.8 g/dL (2.3-3.5) H D 06/13/20 03:51 Albumin/Globulin Ratio 0.7 (1.1-1.8) L 06/13/20 03:51 Lipase 109 U/L (73-393) 06/12/20 16:04 Procalcitonin < 0.05 ng/mL (<0.050) 06/13/20 00:23 Urine pH 7.0 (5.0-7.0) 06/12/20 16:54 Ur Specific Maury 1.020 (1.005-1.030) 06/12/20 16:54 Glucose (UA)(Auto) Negative (Negative) 06/12/20 16:54 Urine Ketones Negative (Negative) 06/12/20 16:54 Urine Blood 2+ (Negative) H 06/12/20 16:54 Urine Nitrite Negative (Negative) 06/12/20 16:54 Ur Leukocyte Esterase 3+ (Negative) H 06/12/20 16:54 Urine RBC <5 /HPF (NONE SEEN) 06/12/20 15:02 Urine WBC 10-20 /HPF (<5) H 06/12/20 15:02 Ur Squamous Epith Cells <5 /HPF (NONE SEEN) 06/12/20 15:02 Amorphous Sediment 1+ /HPF (NONE SEEN) 06/12/20 15:02 Urine Bacteria >50 /HPF (<20) H 06/12/20 15:02 Urine Culture Reflexed Reflexed 06/12/20 15:02 Urine Total Protein 2+ (Negative) H 06/12/20 16:54 SARS-CoV-2 RNA (RT-PCR) Negative (NEGATIVE) 06/12/20 20:08 Microbiology Data (last 24 hrs): 06/12/20 20:15 Blood - Blood Aerobic Blood Culture - Final No growth in 5 days. 06/12/20 20:06 Blood - Blood Aerobic Blood Culture - Final No growth in 5 days. Assessment And Plan - Plan General: Alert, In no apparent distress HEENT: Atraumatic, Normocephalic, PERRLA Neck: Supple, 2+ carotid pulse no bruit Respiratory: Clear to auscultation bilaterally, Normal air movement Capillary refill: <2 Seconds Gastrointestinal: Normal bowel sounds, Tenderness (around PEG site) Musculoskeletal: No clubbing, No swelling, No contractures Integumentary: No rashes, No breakdown, No significant lesion Urinary: Rogers catheter Laboratory Data (last 24 hrs) Conclusions/Impression: Antibiotics: vancomycin start: 06/13 stop: 05/17 Indication: bacteremia/ PEG site infection Rocephin start: 06/13 stop: 06/20 Indication: UTI Assessment: -UTI -bacteremia -possible PEG tube insertion site infection -leukocytosis with left shift -history of stroke in December of 2019 -atrial fibrillation plan: -Urine grew Serratia marcens sesative to ceftriaxone, continue a total of 7 days. -blood cultures taken on 06/12 grew gram-positive cocci in clusters. Repeat blood culture taken on same day was negative. Likely contamination with normal skin jorgito. For discharge patient can be sent home on ciprofloxacin and doxycycline for total 10 days. -patient was seen by GI who stated that the PEG insertion site looked clean and dry and that he drainage from was likely just PEG tube feedings. Culture grew MRSA: Continue vancomycin -leukocytosis with left shift: resolved. - medical management per primary team -continue monitor CBC and BMP -continue monitor for signs of infection Plan of care discussed with Dr. Abebe. Thank you for consultation.
[2020-06-18] MEDS ORDERED: ATORVASTATIN 40 MG TAB FT SCH (21:00)
== END 2020-06-18 17:17 | disposition home health service (06) | DRG 699 ==
LOC: ER 14:27 → ERHOLD 20:06 → 2ND 23:26 → OBSVTOIN 06-13 11:18
PROVIDERS: ADMIT Hospitalist; ATTEND Hospitalist
DX: T83.518A Infection and inflammatory reaction due to other urinary catheter, initial encounter (principal); Z68.1 Body mass index [BMI] 19.9 or less, adult; E46 Unspecified protein-calorie malnutrition; R78.81 Bacteremia; L03.311 Cellulitis of abdominal wall; N30.00 Acute cystitis without hematuria; I73.9 Peripheral vascular disease, unspecified; E78.5 Hyperlipidemia, unspecified; D63.8 Anemia in other chronic diseases classified elsewhere; I48.0 Paroxysmal atrial fibrillation; K59.00 Constipation, unspecified; I10 Essential (primary) hypertension; F03.90 Unspecified dementia, unspecified severity, without behavioral disturbance, psychotic disturbance, mood disturbance, and anxiety; D72.829 Elevated white blood cell count, unspecified; B95.62 Methicillin resistant Staphylococcus aureus infection as the cause of diseases classified elsewhere; B96.20 Unspecified Escherichia coli [E. coli] as the cause of diseases classified elsewhere; I69.391 Dysphagia following cerebral infarction; R13.10 Dysphagia, unspecified; I69.320 Aphasia following cerebral infarction; Z79.82 Long term (current) use of aspirin; Z79.02 Long term (current) use of antithrombotics/antiplatelets; Z79.899 Other long term (current) drug therapy; Z86.14 Personal history of Methicillin resistant Staphylococcus aureus infection; Z93.1 Gastrostomy status; Z20.822 Contact with and (suspected) exposure to COVID-19
CPT/HCPCS: 36415; 51702; 74018; 74174; 74177; 80048; 80053; 80076; 80202; 81003; 81015; 82607; 83010; 83540; 83615; 83690; 83735; 84145; 84466; 85025; 85044; 86140; 87040; 87070; 87077; 87086; 87088; 87186; 87205; 93925; 96361; 96365; 96372; 96375; 97161; 97530; 99284; 99285; C9113; G0378; J0360; J0696; J1644; J2270; J2405; J3370; J3475; J3480; J7030; J7050; Q9967; U0003

== ENCOUNTER 2020-06-23 13:57 | Inpatient (IN) | payer MEDICAID ==
--- OUTSIDE RECORDS SUMMARY | 2020-06-23 14:00 | XMS REPORT | Continuity of Care Document ---
:1960 Author Organization [facility] t Address [address] [place] [address] Care Team Providers Name Role Phone Gatito Chauhan MD Attending Clinician Zeke Blount LMSW Attending Clinician Problems This patient has no known problems. Allergies, Adverse Reactions, Alerts This patient has no known allergies or adverse reactions. Medications This patient has no known medications. Procedures This patient has no known procedures. Encounters Start End Encounter Admission Attending Care Care Encounter Source Date/Time Date/Time Type Type Clinicians Facility Department ID 2020-06-22 2020-06-22 Telephone PEARL Chauhan [id number] 00:00:00 00:00:00 Bev Askew [id number] Jocelyne [id number] Professio [phone] [address] 2020-06-19 2020-06-19 Telephone PEARL Chauhan [id number] 00:00:00 00:00:00 Bev Askew [id number] Jocelyne [id number] Professio [phone] [address] 2020-06-04 2020-06-04 Patient PEARL Blount [id number] 00:00:00 00:00:00 Outreach Nikki Askew [id number] Jocelyne [id number] Professio [phone] [facility] [address] Results This patient has no known results.
[2020-06-23 15:33] LABS: Absolute Lymphocytes (CBC) 2.1 K/uL (0.7-4.9); Basophils % 1.2 % (0-1.3); Hematocrit 40.8 % (36.0-45.0); Lymphocytes % 25.3 % (15.3-44.8); MPV 9.5 fL (7.6-11.3); RBC Red Blood Cell Count 4.55 M/uL (3.86-4.86)
[2020-06-23 15:36] LABS: BUN Blood Urea Nitrogen 26 mg/dL (7-18); Bicarbonate 31 mmol/L (21-32); Glucose Level 85 mg/dL (74-106); Potassium 4.8 mmol/L (3.5-5.1); Sodium Level 141 mmol/L (136-145)
--- NOTE | 2020-06-23 15:52 | RAD REPORT ---
EXAM DESCRIPTION: RAD - Hand Right 3 View - 06/23/2020 3:20 pm CLINICAL HISTORY: bruising, trauma COMPARISON: No comparisons FINDINGS: No fracture is identified. There is no dislocation or periosteal reaction noted. Bones ar e osteopenic. IP joint space narrowing is present. Advanced degenerative change seen at the first MCP joint. Degenerative change at the trapezium articulation with the scaphoid and first metacarpal note d. No foreign body. IMPRESSION: Osteopenic and degenerative change as detailed. No acute finding.
--- NOTE | 2020-06-23 15:55 | RAD REPORT ---
EXAM DESCRIPTION: RAD - Elbow Left 3 View - 06/23/2020 3:20 pm CLINICAL HISTORY: bruising, trauma COMPARISON: None. FINDINGS: No gross fracture deformity is seen. There is cortical irregularity involving the lateral aspect of the radial head suspicious for fracture. This could potentially be the sequela of an old ra dial head fracture. Mild degenerative changes are present at the elbow joint. There is no dislocation or periosteal reaction noted. No foreign body or other soft tissue abnormality. IMPRESSION: Questionable nondisplaced radial head fracture. Correlation is needed with any localizin g symptoms.
--- NOTE | 2020-06-23 15:57 | RAD REPORT ---
EXAM DESCRIPTION: RAD - Forearm Left - 06/23/2020 3:20 pm CLINICAL HISTORY: bruising, trauma COMPARISON: Elbow same date FINDINGS: Cortical buckling and irregular contour involves the lateral aspect of the radial head inc luding the articular surface. Acute radial head fracture is most likely. This is potentially an old r adial head fracture. Correlation is needed with any localizing symptoms. Radius and ulna are otherwis e unremarkable. No foreign body in the soft tissues. IMPRESSION: Nondisplaced left radial head fracture as detailed.
--- NOTE | 2020-06-23 15:58 | RAD REPORT ---
EXAM DESCRIPTION: CT - Head Brain Wo Cont - 06/23/2020 3:20 pm CLINICAL HISTORY: HEADACHE COMPARISON: No comparisons TECHNIQUE: Axial 5 mm thick images of the head were obtained without IV contrast. All CT scans are performed using dose optimization technique as appropriate and may include automated exposure control or mA/KV adjustment according to patient size. FINDINGS: No intracranial hemorrhage or mass lesion. Large area of gliosis present involving the lef t frontal parietal lobe from old CVA. Left lateral ventricle has enlarged in proportion. Patient also has underlying atrophy greater than typically seen for age. Very slight right to left midline shift is the affect of the scoliosis. No space-occupying lesion or edema in the right cerebral hemisphere. No acute infarction changes seen. No cortical edema or sulcal effacement. Ventricles are normal. Mastoid air cells and visualized portions of the paranasal sinuses are clear. No acute bony findings. IMPRESSION: Negative non-contrast CT head examination for acute finding. Nonacute findings detailed in the body of the report.
--- NOTE | 2020-06-23 16:22 | ER ---
Nurse's Notes [facility] Name: Funmilayo Mcmillan Age: 60 yrs Sex: Female : 1960 Arrival Date: 06/23/2020 Time: 14:16 Bed 7 Private MD: Diagnosis: Nondisplaced fracture of head of left radius;Dehydration;Restlessness and agitation Presentation: 06/23 14:17 Chief complaint: EMS states: Pt was complaining of headache to daughter, but patient ss was reportedly upset with her daughter and her daughter's boyfriend according to EMS. Coronavirus screen: Client denies travel out of the [place] in the last 14 days. Ebola Screen: Patient denies exposure to infectious person. Patient denies travel to an Ebola-affected area in the 21 days before illness onset. Initial Sepsis Screen: Does the patient meet any 2 criteria? No. Patient's initial sepsis screen is negative. Does the patient have a suspected source of infection? No. Patient's initial sepsis screen is negative. Risk Assessment: Do you want to hurt yourself or someone else? Patient reports no desire to harm self or others. Onset of symptoms was June 23, 2020. 14:17 Method Of Arrival: Ambulatory ss 14:17 Acuity: EDNA 3 ss Historical: - Allergies: 14:33 No Known Allergies; ss - Home Meds: 14:33 amlodipine 10 mg tab 1 tab once daily [Active]; aspirin 81 mg Oral chew 1 tab once ss daily [Active]; atorvastatin 40 mg Oral tab 1 tab once daily [Active]; clopidogrel 75 mg Oral tab 1 tab once daily [Active]; famotidine 20 mg Oral tab 1 tab every 12 hours [Active]; levetiracetam 100 mg/mL Oral soln 705 mL 2 times per day [Active]; lisinopril 40 mg Oral tab 1 tab once daily [Active]; Risperdal 0.5 mg Oral tab 2 times per day [Active]; - PMHx: 14:33 Atrial Fib; CVA; Depression; Hyperlipidemia; Hypertension; Indwelling zheng; ss - Immunization history:: Adult Immunizations unknown. - Social history:: Smoking status: unknown. - Family history:: not pertinent. - Hospitalizations: : No recent hospitalization is reported. Screenin:17 Abuse screen: unable to obtain. Pt is unable to speak for herself as she has aphasia. ss Nutritional screening: No deficits noted. Tuberculosis screening: Never had TB. Fall Risk No fall in past 12 months (0 pts). Secondary diagnosis (15 points) CVA, IV access (20 points). Ambulatory Aid- None/Bed Rest/Nurse Assist (0 pts). Gait- Normal/Bed Rest/Wheelchair (0 pts) Mental Status- Overestimates/Forgets Limitations (15 pts.). Assessment: 14:17 General: Appears distressed, slender, Behavior is agitated, anxious, crying, fussy. ss Pain: Unable to use pain scale. HX of CVA. Pt is only able to say "ya ya ya!". Neuro: Level of Consciousness is awake, alert, Pupils are PERRLA. Neuro: Speech aphasia. Pt is only able to say, "ya! ya! ya!" When mentioning her daughter or her daughter's boyfriend, she becomes upset. . Facial droop on right, R sided paralysis from previous CVA. . Cardiovascular:. Respiratory: Airway is patent Respiratory effort is even, unlabored, Respiratory pattern is regular, symmetrical. GI: PEG tube in place, clamped. : Zheng in place to gravity drainage. EENT: Oral mucosa is dry. Derm:. Derm: Bruising that is 2 quarter sized green/ yellow bruises noted to R hand and 3 quarter sized yellow/ green bruises noted to R FA. Musculoskeletal:. 14:30 Reassessment: Pt cleaned of bowel incontinence. Respiratory: Respiratory effort is ss even, unlabored. 15:30 Reassessment: TV turned on for comfort. Neuro: Level of Consciousness is awake, alert. ss Respiratory: Respiratory effort is even, unlabored, Respiratory pattern is regular, symmetrical. 17:06 Reassessment: Dr Perez at the bedside. sv 17:10 Reassessment: Elyssa Scanlon (daughter) called. sv 17:30 Reassessment: Pt aware of admission and appears relieved that she is stayin in hospital ss over night. 19:23 Reassessment: Patient appears in no apparent distress at this time. Patient and/or wh family updated on plan of care and expected duration. Pain level reassessed. 19:57 Reassessment: Report # [id number]. ss 20:35 Reassessment: Patient appears in no apparent distress at this time. Patient and/or family updated on plan of care and expected duration. Pain level reassessed. Pt agitated shouting, asked if she wanted something for pain, declines, Pt still shouting and agitated, notified Hospitalist with order made and carried out. Vital Signs: 14:17 BP 160 / 78; Pulse 71; Resp 18; Pulse Ox 100% on R/A; Pain 0/10; ss 16:03 Pulse 69; Pulse Ox 100% on R/A; ss 16:03 Temp 98.0(TE); ss 17:09 Pulse 64; Resp 18; Pulse Ox 100% ; sv 19:23 BP 144 / 106; Pulse 85; Resp 18; Pulse Ox 100% on R/A; wh 20:54 BP 163 / 106; Pulse 68; Resp 18; Pulse Ox 100% on R/A; wh ED Course: 14:16 Patient arrived in ED. ss 14:17 Patient has correct armband on for positive identification. Bed in low position. Call ss light in reach. Side rails up X2. conveyor monitor on. Pulse ox on. NIBP on. Warm blanket given. 14:18 Wilfredo Ruff MD is Attending Physician. rn 14:32 Triage completed. ss 14:33 Arm band placed on right wrist. ss 14:52 X-ray(s) taken. sv 15:19 CT Head Brain wo Cont In Process Unspecified. EDMS 15:21 XRAY Elbow LEFT 3 view In Process Unspecified. EDMS 15:21 XRAY Hand RIGHT 3 View In Process Unspecified. EDMS 15:21 XRAY Forearm LEFT In Process Unspecified. EDMS 15:47 Francesca Caputo, GILA is Primary Nurse. ss 16:21 Rm Perez is Hospitalizing Provider. rn 16:59 CBC with Diff Sent. sv 17:00 Orthoglass splint: posterior long arm splint applied to the left arm. jp3 19:16 Primary Nurse role handed off by Francesca Caputo, GILA mw2 19:23 Troy Arce, GILA is Primary Nurse. wh 20:52 No provider procedures requiring assistance completed. Patient admitted, IV remains in place. Administered Medications: 20:47 Drug: Ativan 0.5 mg Route: IVP; Site: left upper arm; wh 20:54 Follow up: Response: No adverse reaction; RASS: Alert and Calm (0) Outcome: 16:22 Decision to Hospitalize by Provider. rn 20:52 Admitted to Tele accompanied by tech, via stretcher, room 421, with chart, Report called to Mickie Souza RN 20:52 Condition: stable 20:52 Instructed on the need for admit. 21:04 Patient left the ED. Signatures: Dispatcher [employer] Nichelle Zurita RN RN sv Nieto, Roman, MD MD rn Smirch, Shelby, RN RN ss Habalo, Winsy, RN RN Spencer Jorge mw2 Wilberto Trivedi jp3
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
[2020-06-23] MEDS ORDERED: ONDANSETRON 4 MG/2 ML VIAL IV PRN (20:58)
[2020-06-23] MEDS ORDERED: ACETAMINOPHEN 500 MG TAB PO PRN (20:58)
[2020-06-23] MEDS ORDERED: LORazepam 2 MG/ML VIAL ONE (21:02)
[2020-06-23] MEDS: MORPHINE 2 MG/ML SYR IV PRN (21:57)
[2020-06-23] MEDS: NA CHLORIDE 0.9% 1,000 ML IV SCH (21:58)
[2020-06-24] MEDS: HEPARIN 5000 UNIT/ML 1 ML VIAL SQ SCH ×3 (00:50→17:00)
[2020-06-24] MEDS: MORPHINE 2 MG/ML SYR IV PRN ×5 (02:27→23:22)
[2020-06-24 02:43] LABS: Urine Bilirubin NEGATIVE (Negataive); Urine Blood NEGATIVE (Negative); Urine Color YELLOW (Yellow); Urine Glucose NEGATIVE (Negative); Urine Protein NEGATIVE (Negative); Urine Specific Gravity 1.015 (1.005-1.030); Urine Urobilinogen 0.2 mg/dL (0.2-1.0)
[2020-06-24 02:47] LABS: Urine Appearance CLEAR (Clear); Urine Microscopic Reflex NO UMIC
[2020-06-24 03:35] VITALS: BMI 17.2
[2020-06-24 08:04] LABS: Absolute Lymphocytes (CBC) 2.8 K/uL (0.7-4.9); Hematocrit 36.5 % (36.0-45.0); Lymphocytes % 37.5 % (15.3-44.8); MPV 9.7 fL (7.6-11.3); RBC Red Blood Cell Count 4.06 M/uL (3.86-4.86)
[2020-06-24 08:15] LABS: BUN Blood Urea Nitrogen 24 mg/dL (7-18); Bicarbonate 28 mmol/L (21-32); Glucose Level 89 mg/dL (74-106); Magnesium 2.1 mg/dL (1.8-2.4); Phosphorus 4.1 mg/dL (2.5-4.9); Potassium 4.7 mmol/L (3.5-5.1); Sodium Level 140 mmol/L (136-145)
[2020-06-24] MEDS ORDERED: HALOPERIDOL LACT 5 MG/ML INJ IV PRN (14:49)
[2020-06-24] MEDS: FAMOTIDINE 20 MG TAB FT SCH (15:00)
--- NOTE | 2020-06-24 15:07 | P.PN ---
Subjective Date of Service: 06/24/20 Chief Complaint: Agitation Nursing staff report patient occasionally become agitated. Physical Examination - Vital Signs Temperature: 97.8 F Blood Pressure: 163/89 Pulse: 78 Respirations: 18 Pulse Ox (%): 100 - Physical Exam General: In no apparent distress, Other (Awake) HEENT: Mucous membr. moist/pink Neck: JVD not distended Respiratory: Clear to auscultation bilaterally, Normal air movement Cardiovascular: No edema, Regular rate/rhythm, Normal S1 S2 Gastrointestinal: Normal bowel sounds, Soft and benign, Non-distended, Other (PEG tube.) Musculoskeletal: No swelling Integumentary: No rashes Neurological: Other (Moves all extremities) - Studies Laboratory Data (last 24 hrs) 06/24/20 07:26: Sodium 140, Potassium 4.7, BUN 24 H, Creatinine 0.49 L, Glucose 89, Phosphorus 4.1, Magnesium 2.1 06/24/20 07:26: WBC 7.40, Hgb 12.4, Hct 36.5, Plt Count 288 06/23/20 15:12: Sodium 141, Potassium 4.8, BUN 26 H, Creatinine 0.52 L, Glucose 85 06/23/20 15:12: WBC 8.20 D, Hgb 13.7, Hct 40.8 D, Plt Count 308 D Assessment And Plan - Current Problems (Diagnosis) (1) Agitation Current Visit: Yes Status: Acute (2) Radial head fracture, closed Current Visit: Yes Status: Acute (3) History of CVA (cerebrovascular accident) Current Visit: Yes Status: Acute (4) Aphasia Current Visit: No Status: Acute (5) Dysphagia Current Visit: No Status: Acute (6) Vascular dementia Current Visit: No Status: Acute - Plan continue with IV fluid. Morphine IV p.r.n. for pain Conservative management for radial head fracture. Patient left forearm is splinted. Social service consulted for disposition. PEG tube feeding. Patient may need placement. Resume home medications including Risperdal. Haldol IV p.r.n. for agitation.
[2020-06-24] MEDS: NA CHLORIDE 0.9% 1,000 ML IV SCH (16:58)
[2020-06-24] MEDS: JEVITY 1.5 CAL LIQUID 1,000 ML BOT RTH SCH ×2 (17:00→20:40)
[2020-06-24] MEDS: levETIRAcetam 500 MG/5 ML OSYR FT SCH (20:41)
[2020-06-24] MEDS: RISPERIDONE 0.25 MG TABLET FT SCH (20:41)
[2020-06-24] MEDS: ATORVASTATIN 40 MG TAB FT SCH (20:41)
[2020-06-25] MEDS: HEPARIN 5000 UNIT/ML 1 ML VIAL SQ SCH ×3 (01:13→16:52)
[2020-06-25] MEDS: FAMOTIDINE 20 MG TAB FT SCH ×2 (04:35→16:51)
[2020-06-25] MEDS: ASPIRIN 81 MG CHEWABLE TABLET FT SCH (08:07)
[2020-06-25] MEDS: CLOPIDOGREL 75 MG TABLET FT SCH (08:07)
[2020-06-25] MEDS: AMLODIPINE 10 MG TAB FT SCH (08:07)
[2020-06-25] MEDS: RISPERIDONE 0.25 MG TABLET FT SCH ×2 (08:08→20:43)
[2020-06-25] MEDS: lisinopriL 20 MG TAB FT SCH (08:08)
[2020-06-25] MEDS: JEVITY 1.5 CAL LIQUID 1,000 ML BOT RTH SCH ×3 (08:09→16:54)
--- NOTE | 2020-06-25 08:25 | P.PN ---
Subjective Date of Service: 06/25/20 Chief Complaint: Agitation No report of agitation overnight. Patient is calm and cooperative. Physical Examination - Vital Signs Temperature: 97.6 F Blood Pressure: 128/65 Pulse: 60 Respirations: 16 Pulse Ox (%): 99 - Physical Exam General: In no apparent distress HEENT: Mucous membr. moist/pink Respiratory: Clear to auscultation bilaterally, Normal air movement Cardiovascular: No edema, Regular rate/rhythm, Normal S1 S2 Gastrointestinal: Normal bowel sounds, Soft and benign, Non-distended, Other (PEG tube) Musculoskeletal: No swelling Integumentary: No rashes Neurological: Other (Moves all extremities.) Assessment And Plan - Current Problems (Diagnosis) (1) Agitation Current Visit: Yes Status: Acute (2) Radial head fracture, closed Current Visit: Yes Status: Acute (3) History of CVA (cerebrovascular accident) Current Visit: Yes Status: Acute (4) Aphasia Current Visit: No Status: Acute (5) Dysphagia Current Visit: No Status: Acute (6) Vascular dementia Current Visit: No Status: Acute - Plan Discontinue IV fluid. Morphine IV p.r.n. for pain Conservative management for radial head fracture. Patient left forearm is splinted. Social service consulted for disposition. PEG tube feeding-Jevity 1.5. Consult to nutrition. Continue Risperdal.
[2020-06-25] MEDS ORDERED: HOME MED 1 EA UNK (Lisinopril [Lisinopril] 40 MG Tablet) FT SCH (09:00)
--- NOTE | 2020-06-25 13:30 | RAD REPORT ---
EXAM DESCRIPTION: CT - Pelvis Wo Cont - 06/25/2020 12:56 pm CLINICAL HISTORY: Pain left aspect of pelvis COMPARISON: CT ANGIO ABD/PELVIS W CONTRAST dated 06/17/2020; Abdomen Pelvis W Contrast dated 06/12/19; Abdomen Pelvis W Contrast dated 02/09/2020 TECHNIQUE: Axial noncontrast 2 millimeter thick images of the pelvis were obtained with sagittal and coronal reformatted images generated and reviewed. The CT scan was performed using dose optimization techniques as appropriate to a performed exam incl uding one or more of the following: Automated exposure control, adjustment of the mA and/or kV accord ing to patient size (this includes techniques or standardized protocols for targeted exams where dose is matched to indication/reason for exam) and use of iterative reconstruction technique. FINDINGS: L5 body is fully imaged and shows no compression fracture or acute finding. Moderate sever ity L5-S1 disc and endplate degenerative changes are present. Sacral ala are intact. No sacrum or adina cyx fracture confirmed. There is no fracture of either hemipelvis. Bilateral hip joint degenerative c hanges are present. Proximal left femur is intact. Patient has minimally impacted right subcapital neck fracture. No visible fracture line is seen. This is most likely subacute. No periarticular hematoma or mass. Remainder the proximal right femur shows no suspicious finding. Exam utilized a bone evaluation protocol. Dense vascular calcifications are seen. No significant soft tissue finding identifiable. Patient does have a large amount of stool in the visualized portions of the colon with the rectum dilated to 7 cm by stool. Urinary bladder is fully contracted around a Fol ey catheter. IMPRESSION: Subacute right femur subcapital neck fracture. There is minimal impaction with no pathol ogic change. Lower lumbar degenerative change present at L5-S1. No other fracture changes identified.
[2020-06-25] MEDS: levETIRAcetam 500 MG/5 ML OSYR FT SCH ×2 (13:42→20:43)
[2020-06-25] MEDS: NA CHLORIDE 0.9% 1,000 ML IV SCH (13:42)
[2020-06-25] MEDS: JEVITY 1.5 CAL LIQUID 1,000 ML BOT FT SCH ×2 (16:57→20:45)
[2020-06-25] MEDS: ATORVASTATIN 40 MG TAB FT SCH (20:43)
[2020-06-25] MEDS: MORPHINE 2 MG/ML SYR IV PRN (20:44)
[2020-06-26] MEDS: HEPARIN 5000 UNIT/ML 1 ML VIAL SQ SCH ×3 (00:38→16:59)
[2020-06-26] MEDS: FAMOTIDINE 20 MG TAB FT SCH ×2 (03:37→13:41)
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
--- NOTE | 2020-06-26 10:24 | RAD REPORT ---
EXAM DESCRIPTION: RAD - Pelvis - 06/26/2020 10:17 am CLINICAL HISTORY: pain Pain and swelling COMPARISON: Pelvis Wo Cont dated 06/25/2020; Hip Right 2 View dated 06/26/2020 FINDINGS: AP pelvis and right hip -multiple projections are submitted Mildly impacted fracture of the subcapital proximal right femur is seen. No AVN or dislocation eviden t.
[2020-06-26] MEDS: levETIRAcetam 500 MG/5 ML OSYR FT SCH ×2 (10:42→21:56)
[2020-06-26] MEDS: lisinopriL 20 MG TAB FT SCH (10:43)
[2020-06-26] MEDS: RISPERIDONE 0.25 MG TABLET FT SCH ×2 (10:43→21:55)
[2020-06-26] MEDS: ASPIRIN 81 MG CHEWABLE TABLET FT SCH (10:43)
[2020-06-26] MEDS: AMLODIPINE 10 MG TAB FT SCH (10:44)
[2020-06-26] MEDS: CLOPIDOGREL 75 MG TABLET FT SCH (10:46)
[2020-06-26] MEDS: JEVITY 1.5 CAL LIQUID 1,000 ML BOT FT SCH ×4 (10:46→21:00)
[2020-06-26] MEDS: NA CHLORIDE 0.9% 1,000 ML IV SCH (10:53)
--- NOTE | 2020-06-26 16:40 | RAD REPORT ---
EXAM DESCRIPTION: RAD - Hip Right 2 View - 06/26/2020 10:17 am CLINICAL HISTORY: pain CLINICAL HISTORY: Pain Pain and swelling COMPARISON: Pelvis Wo Cont dated 06/25/2020; Hip Right 2 View dated 06/26/2020 FINDINGS: AP pelvis and right hip -multiple projections are submitted Mildly impacted fracture of the subcapital proximal right femur is seen. No AVN or dislocation eviden t.
[2020-06-26] MEDS: ATORVASTATIN 40 MG TAB FT SCH (21:55)
--- NOTE | 2020-06-27 00:53 | CON ---
Date of Consultation: 06/26/2020 Reason For Consultation: Right femoral neck fracture. History Of Present Illness: Funmilayo is a 60-year-old female who was admitted to the hospital on 06/23, who presented to the hospital with agitation. In the ER, the patient was noted to have a possible le ft radial head fracture and was admitted to the floor for further evaluation and treatment. Patient is noncommunicative and she has history of CVA and from prior note, she does state that she is bed corby und and nonambulatory. I was consulted after patient had a CAT scan of her pelvis, which demonstrate d a subacute fracture of her right femoral neck. The patient did have a CAT scan of her abdomen and pelvis done on June 11, which did also demonstrate a right nondisplaced femoral neck fracture. Review of Systems: As above, otherwise negative. Past Medical History: Includes atrial fibrillation, history of CVA, hypertension, hyperlipidemia, an d depression. Past Surgical History: Includes PEG tube placement. Social History: No alcohol or tobacco use noted. She lives at home with her daughter. Home Medications: Include amlodipine, aspirin, atorvastatin, Plavix, famotidine, risperidone, leveti racetam, lisinopril, Cipro and doxycycline. Allergies: NO KNOWN DRUG ALLERGIES. Physical Examination: General: No apparent distress. HEENT: Normocephalic, atraumatic. Neck: Supple. Cardiovascular: Brisk capillary refill to all digits. Chest: Nonlabored breathing. Abdomen: Nondistended. Musculoskeletal: Right lower extremity demonstrates plantar flexion deformity of her right foot with some increased spasticity in the right lower extremity. Minimal tenderness to palpation over the ri ght hip. Some grimacing with range of motion of the right hip. No pain with range of motion of the left hip, knee, foot or ankle. Left upper extremity is in a splint. Brisk capillary refill to all d igits. Imaging: CAT scan demonstrates a nondisplaced subcapital subacute femoral neck fracture with no sign ificant change from CAT scan noted on June 11, 2020. Assessment And Plan: Ms. Funmilayo Vegas is a 60-year-old female with history of cerebrovascular accident, noted to be nonambulatory with a right subacute femoral neck fracture and left nondisplaced proximal radius fracture. Splint for left upper extremity may be removed and she may be weightbearing as morgan erated in the left upper extremity. With multiple medical comorbidities and subacute nature of her f racture with minimal displacement, I recommend nonoperative treatment for her right hip at this time. If she is able to transfer, she may be touchdown weightbearing on her right lower extremity. She w ill follow up in my clinic as needed. CV/MODL Voice ID: [id number] Report ID: [id number]
[2020-06-27] MEDS: HEPARIN 5000 UNIT/ML 1 ML VIAL SQ SCH ×2 (01:01→10:37)
[2020-06-27] MEDS: FAMOTIDINE 20 MG TAB FT SCH (04:00)
[2020-06-27] MEDS: NA CHLORIDE 0.9% 1,000 ML IV SCH (06:17)
[2020-06-27 08:45] VITALS: TEMP 97.5
[2020-06-27] MEDS: lisinopriL 20 MG TAB FT SCH (10:34)
[2020-06-27] MEDS: RISPERIDONE 0.25 MG TABLET FT SCH (10:35)
[2020-06-27] MEDS: ASPIRIN 81 MG CHEWABLE TABLET FT SCH (10:35)
[2020-06-27] MEDS: CLOPIDOGREL 75 MG TABLET FT SCH (10:36)
[2020-06-27] MEDS: AMLODIPINE 10 MG TAB FT SCH (10:36)
[2020-06-27] MEDS: levETIRAcetam 500 MG/5 ML OSYR FT SCH (10:37)
[2020-06-27] MEDS: JEVITY 1.5 CAL LIQUID 1,000 ML BOT FT SCH (10:38)
[2020-06-27 11:36] VITALS: O2SAT 97
[2020-06-27 12:35] VITALS: BP 145/79
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
== END 2020-06-27 13:32 | DRG 562 ==
LOC: ER 13:57 → ERHOLD 17:19 → 4TH 20:53 → OBSVTOIN 06-24 12:19 → 2ND 06-24 20:06
PROVIDERS: ADMIT Internal Medicine; ATTEND Hospitalist
DX: S52.123A Displaced fracture of head of unspecified radius, initial encounter for closed fracture (principal); S72.011A Unspecified intracapsular fracture of right femur, initial encounter for closed fracture; I48.20 Chronic atrial fibrillation, unspecified; I10 Essential (primary) hypertension; F01.50 Vascular dementia, unspecified severity, without behavioral disturbance, psychotic disturbance, mood disturbance, and anxiety; E78.5 Hyperlipidemia, unspecified; I69.320 Aphasia following cerebral infarction; R13.10 Dysphagia, unspecified; R45.1 Restlessness and agitation; Z79.82 Long term (current) use of aspirin; Z79.02 Long term (current) use of antithrombotics/antiplatelets; Z79.899 Other long term (current) drug therapy; Z20.822 Contact with and (suspected) exposure to COVID-19
CPT/HCPCS: 36415; 70450; 72170; 72192; 80048; 81003; 83735; 84100; 85025; 96374; 97161; 99285; G0378; J1644; J2270; J7030; U0003

== ENCOUNTER 2021-08-25 15:48 | Emergency (ER) | payer OTHER, SELFPAY ==
--- OUTSIDE RECORDS SUMMARY | 2021-08-25 16:07 | XMS REPORT | Continuity of Care Document ---
:1960 Author Organization [facility] t Address [address] [place] [address] Care Team Providers Name Role Phone Gatito Chauhan MD Primary Care Physician Nirav Larkin LMSW Attending Clinician Unavailable Sylvia URIOSTEGUI, L Attending Clinician Unavailable Devonte ADAME Attending Clinician Unavailable BEVERLEY KING Attending Clinician Unavailable Zeke BENSON Attending Clinician Unavailable JEFFRY Attending Clinician Unavailable Beverley King MD Attending Clinician BREE Attending Clinician Unavailable ANIKET Attending Clinician Unavailable Bree PINO Attending Clinician Doctor Unassigned, Name Attending Clinician Unavailable IVAN Attending Clinician Unavailable Gatito Chauhan MD Attending Clinician Lyudmila CERON Attending Clinician Unavailable Jose Alejandro ORTIZ L Attending Clinician Gamaliel SOLIS Attending Clinician GAMALIEL Attending Clinician Unavailable Markos Cook DO Attending Clinician Rogelio URIOSTEGUI Attending Clinician Unavailable ALBERT Attending Clinician Unavailable Aniket PINO Attending Clinician NUNU Attending Clinician Unavailable Zay Vilchis MD Attending Clinician Zay VILCHIS Attending Clinician Unavailable Cathryn URIOSTEGUI, M Attending Clinician Unavailable Gatito CHAUHAN Attending Clinician Unavailable Sedrick URIOSTEGUI, E Attending Clinician Tanner PINO Attending Clinician TANNER Attending Clinician Unavailable Karolyn URIOSTEGUI M Attending Clinician Vinay PINO Attending Clinician Maurice PINO Attending Clinician Zeke PORTER Attending Clinician Unavailable Ivan PINO Attending Clinician Pc, Vascular Room 1 - Attending Clinician Unavailable Sophia PINO, K.H. Attending Clinician Karen CORTES.H. Attending Clinician Unavailable Gatito Choi Attending Clinician Maurice PINO Admitting Clinician Payers Payer Name Policy Type Policy Number Effective Date Expiration Date Viktoriya mata [facility] [id number] 2015 MEDICAID 00:00:00 Problems Condition Condition Condition Status Onset Resolution Last Treating Co mments Source Name Details Category Date Date Treatment Clinician Date ERRONEOUS ERRONEOUS Disease Active Uni vers ENCOUNTER- ENCOUNTER- 6-15 it y of -DISREG[place] Resides in Resides in Disease Active U nivers skilled skilled 4-21 ity of nursing nursing 00:00: [place] facility facility 00 Medica l Branch Cerebrovas Cerebrovas Disease Active U nivers cular cular 2-26 ity of accident accident 00:00: [place] (CVA) due (CVA) due 00 Medi bishnu to to Branch 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 Bedridden Disease Active Uni vers 2-26 ity of 00:00: [place] 00 Medical Branch Wheelchair Wheelchair Disease Active U nivers bound bound 2-26 ity of 00:00: [place] 00 Medical Branch Schizophre Schizophre Disease Active U nivers fidel, fidel, 2-26 ity of unspecifie unspecifie [place] d type d type 00 Medical Branch Need for Need for Disease Active Unive rs 23-polyval 23-polyval 2-26 it y of ent ent 00:00: [place] pneumococc pneumococc 00 Me dical al al Branch polysaccha polysaccha ride ride vaccine vaccine Gastrostom Gastrostom Disease Active 2020- U nivers y status y status 2-18 ity of 00:00: [place] [facility] Other Other Disease Active 2020- Univers complicati complicati 2-18 it y of ons of ons of 00:00: [place] procedures procedures 00 Me dical , not , not Branch elsewhere elsewhere classified classified , initial , initial encounter encounter Abnormal Abnormal Disease Active 2019-03 Unive rs surgical surgical 2-18 ity of wound wound 00:00: [place] [facility] History of History of Disease Active 2020- U nivers stroke stroke -28 ity of 00:00: [place] 00 Medical Branch Requires Requires Disease Active 2019-03 Unive rs daily daily 1-28 ity of assistance assistance 00:00[place] for for 00 Medical activities activities Br anch of daily of daily living living (ADL) and (ADL) and comfort comfort needs needs Lung mass Lung mass Disease Active 2019-03 Uni vers -28 ity of 00:00: [place] [facility] Speech Speech Disease Active 2020- Univers problem problem -28 ity of 00:00: [place] [facility] Respirator Respirator Disease Active 2020- U nivers y distress y distress 0-15 it y of 00:00: [place] [facility] E44.0 E44.0 Disease Active 2020- Univers Moderate Moderate 0-13 ity of protein protein 00:00: [place] calorie calorie 00 Medical malnutriti malnutriti Br anch on on At risk At risk Disease Active 2020- Univers for for 0-11 ity of seizures seizures 00:00: [place] [facility] Cocaine Cocaine Disease Active 2020- Univers abuse abuse 0-11 ity of 00:00: [place] 00 Medical Branch At risk At risk Disease Active 2020- Univers for UTI for UTI 0-11 ity of related to related to 00:[place] indwelling indwelling 00 Me dical catheter catheter Branch Acute Acute Disease Active 2020- Univers ischemic ischemic 0-10 ity of left MCA left MCA 00:00: [place] stroke stroke 00 Medical Branch Coronary Coronary Disease Active Unive rs artery artery 5-09 ity of disease disease 00:00: [place] without without 00 Medical angina angina Branch pectoris pectoris HTN HTN Disease Active Univers (hypertens (hypertens 5-09 it y of ion) ion) 00:00: [place] 00 Medical Branch Chest pain Chest pain Disease Active U nivers 5-08 ity of 00:00: [place] 00 Medical Branch PAD PAD Disease Active Univers (periphera (periphera 2-25 it y of l artery l artery 00:00: [place] disease) disease) 00 Medica l Branch PAD PAD Disease Active Univers (periphera (periphera 2-25 it y of l artery l artery 00:00: [place] disease) disease) 00 Medica l Branch Allergies, Adverse Reactions, Alerts Allergy Allergy Status Severity Reaction(s) Onset Inactive Treating Comm ents Source Name Type Date Date Clinician NO KNOWN Drug Active Univers ALLERGIE Class ity of S [facility] Social History Social Habit Start Date Stop Date Quantity Comments Source History SDOH [facility] o [facility] University o f Alcohol Std Drinks [facility] History [facility] o f Alcohol Binge [facility] al Branch Exposure to Not sure University of SARS-CoV-2 (event) [facility] Alcohol intake 2020-07-08 2020-07-08 0 /d University of 00:00:00 00:00:00 [facility] Cigarettes smoked 2019-02-01 2019-02-01 Univers ity of current (pack per 00:00:00 00:00:00 [facility]) - Reported Branch Tobacco use and 2019-02-01 2019-02-01 Former user Universi ty of exposure 00:00:00 00:00:00 [facility] Cigarette 2018-11-14 2018-11-14 University of pack-years 00:00:00 00:00:00 [facility] Tobacco Comment 2018-10-01 2018-10-01 started smoking Univ ersity of 00:00:00 00:00:00 at 13 years old, [facility] isela uses a pack Branch every 2 days when not smoking. Alcohol Comment 2017-06-30 2017-06-30 3 beers daily Univer sity of 00:00:00 00:00:00 [facility] History of tobacco 1973-02-01 1999-06-02 Snuff User Univer sity of use 00:00:00 00:00:00 [facility] Sex Ass[birth year] At [birth year] Universit y of 00:00:00 00:00:00 [facility] Smoking Status Start Date Stop Date Source Former smoker 2020-07-08 00:00:00 2020-07-08 00:00:00 [facility] Current every day 2018-11-14 00:00:00 [facility] smoker [facility] Medications Ordered Filled Start Stop Current Ordering Indication Dosage Frequency Signature Comments Components Source Medication Medication Date Date Medication? Clinician (SIG) Name Name risperiDONE Yes Schizophren Take 1 Univers 0.5 mg 4-06 ia, tablet ity of tablet 00:00: unspecified twice a T ex day Medical through Branch enteral tube for agitation. For breakthrou gh agitation can take every 6 hours, no more than 4 pills total in 24 hours. If agitation continues call the clinic. risperiDONE Yes [id number] Take 1 Univers 0.5 mg 4-06 tablet ity of tablet 00:00: twice a Medical through Branch enteral tube for agitation. For breakthrou gh agitation can take every 6 hours, no more than 4 pills total in 24 hours. If agitation continues call the clinic. risperiDONE Yes [id number] Take 1 Univers 0.5 mg 4-06 tablet ity of tablet 00:00: twice a Medical through Branch enteral tube for agitation. For breakthrou gh agitation can take every 6 hours, no more than 4 pills total in 24 hours. If agitation continues call the clinic. risperiDONE Yes [id number] Take 1 Univers 0.5 mg 4-06 tablet ity of tablet 00:00: twice a Medical through Branch enteral tube for agitation. For breakthrou gh agitation can take every 6 hours, no more than 4 pills total in 24 hours. If agitation continues call the clinic. risperiDONE Yes [id number] Take 1 Univers 0.5 mg 4-06 tablet ity of tablet 00:00: twice a Medical through Branch enteral tube for agitation. For breakthrou gh agitation can take every 6 hours, no more than 4 pills total in 24 hours. If agitation continues call the clinic. risperiDONE Yes [id number] Take 1 Univers 0.5 mg 4-06 tablet ity of tablet 00:00: twice a Medical through Branch enteral tube for agitation. For breakthrou gh agitation can take every 6 hours, no more than 4 pills total in 24 hours. If agitation continues call the clinic. risperiDONE 0 Yes [id number] Take 1 Univers 0.5 mg 4-06 tablet ity of tablet 00:00: twice a day Medical through Branch enteral tube for agitation. For breakthrou gh agitation can take every 6 hours, no more than 4 pills total in 24 hours. If agitation continues call the clinic. risperiDONE 0 Yes [id number] Take 1 Univers 0.5 mg 4-06 tablet ity of tablet 00:00: twice a day Medical through Branch enteral tube for agitation. For breakthrou gh agitation can take every 6 hours, no more than 4 pills total in 24 hours. If agitation continues call the clinic. risperiDONE 2020-0 Yes [id number] Take 1 Univers 0.5 mg 4-06 tablet ity of tablet 00:00: twice a Medical through Branch enteral tube for agitation. For breakthrou gh agitation can take every 6 hours, no more than 4 pills total in 24 hours. If agitation continues call the clinic. risperiDONE 0 Yes [id number] Take 1 Univers 0.5 mg 4-06 tablet ity of tablet 00:00: twice a Medical through Branch enteral tube for agitation. For breakthrou gh agitation can take every 6 hours, no more than 4 pills total in 24 hours. If agitation continues call the clinic. risperiDONE 0 Yes [id number] Take 1 Univers 0.5 mg 4-06 tablet ity of tablet 00:00: twice a Medical through Branch enteral tube for agitation. For breakthrou gh agitation can take every 6 hours, no more than 4 pills total in 24 hours. If agitation continues call the clinic. risperiDONE 0 Yes [id number] Take 1 Univers 0.5 mg 4-06 tablet ity of tablet 00:00: twice a Medical through Branch enteral tube for agitation. For breakthrou gh agitation can take every 6 hours, no more than 4 pills total in 24 hours. If agitation continues call the clinic. risperiDONE 2020-0 Yes [id number] Take 1 Univers 0.5 mg 4-06 tablet ity of tablet 00:00: twice a Medical through Branch enteral tube for agitation. For breakthrou gh agitation can take every 6 hours, no more than 4 pills total in 24 hours. If agitation continues call the clinic. cefpodoxime 2021-0 Yes Urinary 100mg Take 1 Univers 100 mg 3-17 tract tablet by ity of tablet 00:00: infection mouth 2 associated (two) Medical with times Branch indwelling daily. urethral catheter, initial encounter cefpodoxime 2021-0 Yes [id number] 100mg Take 1 Univers 100 mg 3-17 tablet by ity of tablet 00:00: mouth (two) Medical times Branch daily. cefpodoxime 2021-0 Yes [id number] 100mg Take 1 Univers 100 mg 3-17 tablet by ity of tablet 00:00: mouth (two) Medical times Branch daily. cefpodoxime 2021-0 Yes [id number] 100mg Take 1 Univers 100 mg 3-17 tablet by ity of tablet 00:00: mouth (two) Medical times Branch daily. cefpodoxime 2021-0 Yes [id number] 100mg Take 1 Univers 100 mg 3-17 tablet by ity of tablet 00:00: mouth (two) Medical times Branch daily. cefpodoxime 2021-0 Yes [id number] 100mg Take 1 Univers 100 mg 3-17 tablet by ity of tablet 00:00: mouth (two) Medical times Branch daily. cefpodoxime 2021-0 Yes [id number] 100mg Take 1 Univers 100 mg 3-17 tablet by ity of tablet 00:00: mouth (two) Medical times Branch daily. cefpodoxime 2021-0 Yes [id number] 100mg Take 1 Univers 100 mg 3-17 tablet by ity of tablet 00:00: mouth (two) Medical times Branch daily. cefpodoxime 2021-0 Yes [id number] 100mg Take 1 Univers 100 mg 3-17 tablet by ity of tablet 00:00: mouth (two) Medical times Branch daily. cefpodoxime 2021-0 Yes [id number] 100mg Take 1 Univers 100 mg 3-17 tablet by ity of tablet 00:00: mouth 2 (two) Medical times Branch daily. cefpodoxime 2021-0 Yes [id number] 100mg Take 1 Univers 100 mg 3-17 tablet by ity of tablet 00:00: mouth [place] (two) Medical times Branch daily. cefpodoxime 2021-0 Yes [id number] 100mg Take 1 Univers 100 mg 3-17 tablet by ity of tablet 00:00: [facility] 2 [place] (two) Medical times Branch daily. cefpodoxime 2021-0 Yes [id number] 100mg Take 1 Univers 100 mg 3-17 tablet by ity of tablet 00:00: mouth [place] (two) Medical times Branch daily. cefpodoxime 2021-0 Yes [id number] 100mg Take 1 Univers 100 mg 3-17 tablet by ity of tablet 00:00: mouth 2 [place] (two) Medical times Branch daily. cefpodoxime 2021-0 Yes [id number] 100mg Take 1 Univers 100 mg 3-17 tablet by ity of tablet 00:00: mouth [place] (two) Medical times Branch daily. cefpodoxime 2021-0 Yes [id number] 100mg Take 1 Univers 100 mg 3-17 tablet by ity of tablet 00:00: mouth [place] (two) Medical times Branch daily. cefpodoxime 1-0 Yes [id number] 100mg Take 1 Univers 100 mg 3-17 tablet by ity of tablet 00:00: mouth [place] (two) Medical times Branch daily. cefpodoxime 2021-0 Yes [id number] 100mg Take 1 Univers 100 mg 3-17 tablet by ity of tablet 00:00: [facility] [place] (two) Medical times Branch daily. cefpodoxime 1-0 Yes [id number] 100mg Take 1 Univers 100 mg 3-17 tablet by ity of tablet 00:00: mouth [place] (two) Medical times Branch daily. cefpodoxime 1-0 Yes [id number] 100mg Take 1 Univers 100 mg 3-17 tablet by ity of tablet 00:00: mouth 2 [place] (two) Medical times Branch daily. iohexoL 2020-2020- No 30mL 30 mL, Univers (OMNIPAQUE 03-28 Intravenou it y of 300-50 mL)) 18:45: 18:15 s, ONCE, 1 [place] injection 00 :00 dose, Wed Medic al 30 mL 03/28/20 at Branch 1245, Routine collagenase 2019-03 Yes [id number] Apply to Univers (SANTYL) 2-29 affected ity of 250 00:00: area(s) 2 [place] unit/gram 00 (two) Medical ointment times Branch daily. collagenase 2019- Yes [id number] Apply to Univers (SANTYL) 2-29 affected ity of 250 00:00: area(s) 2 [place] unit/gram 00 (two) Medical ointment times Branch daily. collagenase 2020- Yes [id number] Apply to Univers (SANTYL) 2-29 affected ity of 250 00:00: area(s) 2 [place] unit/gram 00 (two) Medical ointment times Branch daily. collagenase 2019- Yes [id number] Apply to Univers (SANTYL) 2-29 affected ity of 250 00:00: area(s) 2 [place] unit/gram 00 (two) Medical ointment times Branch daily. collagenase 2019- Yes [id number] Apply to Univers (SANTYL) 2-29 affected ity of 250 00:00: area(s) 2 [place] unit/gram 00 (two) Medical ointment times Branch daily. collagenase 2019- Yes [id number] Apply to Univers (SANTYL) 2-29 affected ity of 250 00:00: area(s) 2 [place] unit/gram 00 (two) Medical ointment times Branch daily. collagenase 2019- Yes [id number] Apply to Univers (SANTYL) 2-29 affected ity of 250 00:00: area(s) 2 [place] unit/gram 00 (two) Medical ointment times Branch daily. collagenase 2019- Yes [id number] Apply to Univers (SANTYL) 2-29 affected ity of 250 00:00: area(s) 2 [place] unit/gram 00 (two) Medical ointment times Branch daily. collagenase 2020- Yes [id number] Apply to Univers (SANTYL) 2-29 affected ity of 250 00:00: area(s) 2 [place] unit/gram 00 (two) Medical ointment times Branch daily. collagenase 2020- Yes [id number] Apply to Univers (SANTYL) 2-29 affected ity of 250 00:00: area(s) 2 [place] unit/gram 00 (two) Medical ointment times Branch daily. collagenase 2020- Yes [id number] Apply to Univers (SANTYL) 2-29 affected ity of 250 00:00: area(s) 2 [place] unit/gram 00 (two) Medical ointment times Branch daily. collagenase 2019-03 Yes [id number] Apply to Univers (SANTYL) 2-29 affected ity of 250 00:00: area(s) 2 [place] unit/gram 00 (two) Medical ointment times Branch daily. collagenase 2019- Yes [id number] Apply to Univers (SANTYL) 2-29 affected ity of 250 00:00: area(s) 2 [place] unit/gram 00 (two) Medical ointment times Branch daily. collagenase 2019-03 Yes [id number] Apply to Univers (SANTYL) 2-29 affected ity of 250 00:00: area(s) 2 [place] unit/gram 00 (two) Medical ointment times Branch daily. collagenase 2019-03 Yes [id number] Apply to Univers (SANTYL) 2-29 affected ity of 250 00:00: area(s) 2 [place] unit/gram 00 (two) Medical ointment times Branch daily. collagenase 2019-03 Yes [id number] Apply to Univers (SANTYL) 2-29 affected ity of 250 00:00: area(s) 2 [place] unit/gram 00 (two) Medical ointment times Branch daily. collagenase 2019-03 Yes [id number] Apply to Univers (SANTYL) 2-29 affected ity of 250 00:00: area(s) 2 [place] unit/gram 00 (two) Medical ointment times Branch daily. collagenase 2019- Yes [id number] Apply to Univers (SANTYL) 2-29 affected ity of 250 00:00: area(s) 2 [place] unit/gram 00 (two) Medical ointment times Branch daily. collagenase 2019-03 Yes [id number] Apply to Univers (SANTYL) 2-29 affected ity of 250 00:00: area(s) 2 [place] unit/gram 00 (two) Medical ointment times Branch daily. collagenase 2019- Yes [id number] Apply to Univers (SANTYL) 2-29 affected ity of 250 00:00: area(s) 2 [place] unit/gram 00 (two) Medical ointment times Branch daily. collagenase 2019- Yes [id number] Apply to Univers (SANTYL) 2-29 affected ity of 250 00:00: area(s) 2 [place] unit/gram 00 (two) Medical ointment times Branch daily. collagenase 2019- Yes [id number] Apply to Univers (SANTYL) 2-29 affected ity of 250 00:00: area(s) 2 [place] unit/gram 00 (two) Medical ointment times Branch daily. collagenase 2019- Yes [id number] Apply to Univers (SANTYL) 2-29 affected ity of 250 00:00: area(s) 2 [place] unit/gram 00 (two) Medical ointment times Branch daily. collagenase 2019- Yes [id number] Apply to Univers (SANTYL) 2-29 affected ity of 250 00:00: area(s) 2 [place] unit/gram 00 (two) Medical ointment times Branch daily. collagenase 2019- Yes [id number] Apply to Univers (SANTYL) 2-29 affected ity of 250 00:00: area(s) 2 [place] unit/gram 00 (two) Medical ointment times Branch daily. collagenase 2019- Yes [id number] Apply to Univers (SANTYL) 2-29 affected ity of 250 00:00: area(s) 2 [place] unit/gram 00 (two) Medical ointment times Branch daily. collagenase 2019- Yes [id number] Apply to Univers (SANTYL) 2-29 affected ity of 250 00:00: area(s) 2 [place] unit/gram 00 (two) Medical ointment times Branch daily. collagenase 2019- Yes [id number] Apply to Univers (SANTYL) 2-29 affected ity of 250 00:00: area(s) 2 [place] unit/gram 00 (two) Medical ointment times Branch daily. collagenase 2019- Yes [id number] Apply to Univers (SANTYL) 2-29 affected ity of 250 00:00: area(s) 2 [place] unit/gram 00 (two) Medical ointment times Branch daily. collagenase 2020- Yes [id number] Apply to Univers (SANTYL) 2-29 affected ity of 250 00:00: area(s) 2 [place] unit/gram 00 (two) Medical ointment times Branch daily. collagenase 2019- Yes [id number] Apply to Univers (SANTYL) 2-29 affected ity of 250 00:00: area(s) 2 [place] unit/gram 00 (two) Medical ointment times Branch daily. collagenase 2020- Yes [id number] Apply to Univers (SANTYL) 2-29 affected ity of 250 00:00: area(s) 2 [place] unit/gram 00 (two) Medical ointment times Branch daily. collagenase 2020- Yes [id number] Apply to Univers (SANTYL) 2-29 affected ity of 250 00:00: area(s) 2 [place] unit/gram 00 (two) Medical ointment times Branch daily. collagenase 2020- Yes [id number] Apply to Univers (SANTYL) 2-29 affected ity of 250 00:00: area(s) 2 [place] unit/gram 00 (two) Medical ointment times Branch daily. collagenase 2020- Yes [id number] Apply to Univers (SANTYL) 2-29 affected ity of 250 00:00: area(s) 2 [place] unit/gram 00 (two) Medical ointment times Branch daily. collagenase 2020- Yes [id number] Apply to Univers (SANTYL) 2-29 affected ity of 250 00:00: area(s) 2 [place] unit/gram 00 (two) Medical ointment times Branch daily. collagenase 2020- Yes [id number] Apply to Univers (SANTYL) 2-29 affected ity of 250 00:00: area(s) 2 [place] unit/gram 00 (two) Medical ointment times Branch daily. collagenase 2020- Yes [id number] Apply to Univers (SANTYL) 2-29 affected ity of 250 00:00: area(s) 2 [place] unit/gram 00 (two) Medical ointment times Branch daily. collagenase 2020- Yes [id number] Apply to Univers (SANTYL) 2-29 affected ity of 250 00:00: area(s) 2 [place] unit/gram 00 (two) Medical ointment times Branch daily. collagenase 2020- Yes [id number] Apply to Univers (SANTYL) 2-29 affected ity of 250 00:00: area(s) 2 [place] unit/gram 00 (two) Medical ointment times Branch daily. collagenase 2020- Yes [id number] Apply to Univers (SANTYL) 2-29 affected ity of 250 00:00: area(s) 2 [place] unit/gram 00 (two) Medical ointment times Branch daily. collagenase 2020- Yes Encounter Apply to Univers (SANTYL) 2-29 for wound affected it y of 250 00:00: care area(s) 2 [place] unit/gram 00 (two) Medical ointment times Branch daily. collagenase 2020- Yes [id number] Apply to Univers (SANTYL) 2-29 affected ity of 250 00:00: area(s) 2 [place] unit/gram 00 (two) Medical ointment times Branch daily. collagenase 2020- Yes [id number] Apply to Univers (SANTYL) 2-29 affected ity of 250 00:00: area(s) 2 [place] unit/gram 00 (two) Medical ointment times Branch daily. collagenase 2019- Yes [id number] Apply to Univers (SANTYL) 2-29 affected ity of 250 00:00: area(s) 2 [place] unit/gram 00 (two) Medical ointment times Branch daily. collagenase 2019- Yes [id number] Apply to Univers (SANTYL) 2-29 affected ity of 250 00:00: area(s) 2 [place] unit/gram 00 (two) Medical ointment times Branch daily. collagenase 2020- Yes [id number] Apply to Univers (SANTYL) 2-29 affected ity of 250 00:00: area(s) 2 [place] unit/gram 00 (two) Medical ointment times Branch daily. collagenase 2020- Yes [id number] Apply to Univers (SANTYL) 2-29 affected ity of 250 00:00: area(s) 2 [place] unit/gram 00 (two) Medical ointment times Branch daily. collagenase 2020- Yes [id number] Apply to Univers (SANTYL) 2-29 affected ity of 250 00:00: area(s) 2 [place] unit/gram 00 (two) Medical ointment times Branch daily. collagenase 2020- Yes [id number] Apply to Univers (SANTYL) 2-29 affected ity of 250 00:00: area(s) 2 [place] unit/gram 00 (two) Medical ointment times Branch daily. collagenase 2020- Yes [id number] Apply to Univers (SANTYL) 2-29 affected ity of 250 00:00: area(s) 2 [place] unit/gram 00 (two) Medical ointment times Branch daily. collagenase 2020- Yes [id number] Apply to Univers (SANTYL) 2-29 affected ity of 250 00:00: area(s) 2 [place] unit/gram 00 (two) Medical ointment times Branch daily. collagenase 2019-03 Yes [id number] Apply to Univers (SANTYL) 2-29 affected ity of 250 00:00: area(s) 2 [place] unit/gram 00 (two) Medical ointment times Branch daily. collagenase 2019- Yes [id number] Apply to Univers (SANTYL) 2-29 affected ity of 250 00:00: area(s) 2 [place] unit/gram 00 (two) Medical ointment times Branch daily. collagenase 2019- Yes [id number] Apply to Univers (SANTYL) 2-29 affected ity of 250 00:00: area(s) 2 [place] unit/gram 00 (two) Medical ointment times Branch daily. collagenase 2019-03 Yes [id number] Apply to Univers (SANTYL) 2-29 affected ity of 250 00:00: area(s) 2 [place] unit/gram 00 (two) Medical ointment times Branch daily. collagenase 2019-03 Yes [id number] Apply to Univers (SANTYL) 2-29 affected ity of 250 00:00: area(s) 2 [place] unit/gram 00 (two) Medical ointment times Branch daily. collagenase 2019- Yes [id number] Apply to Univers (SANTYL) 2-29 affected ity of 250 00:00: area(s) 2 [place] unit/gram 00 (two) Medical ointment times Branch daily. collagenase 2019- Yes [id number] Apply to [facility] (SANTYL) 2-29 affected ity of 250 00:00: area(s) 2 [place] unit/gram 00 (two) Medical ointment times Branch daily. collagenase 2019- Yes [id number] Apply to [facility] (SANTYL) 2-29 affected ity of 250 00:00: area(s) 2 [place] unit/gram 00 (two) Medical ointment times Branch daily. collagenase 2019- Yes [id number] Apply to [facility] (SANTYL) 2-29 affected ity of 250 00:00: area(s) 2 [place] unit/gram 00 (two) Medical ointment times Branch daily. collagenase 2019- Yes [id number] Apply to [facility] (SANTYL) 2-29 affected ity of 250 00:00: area(s) 2 [place] unit/gram 00 (two) Medical ointment times Branch daily. Miscellaneo 2020- Yes Patient [facility] 2-10 needs ity of Supply Misc 00:00: Jevity, Thierry as 00 she Medical consumes 9 Branch bottles a day. Miscellaneo 2020- Yes Patient [facility] 2-10 needs ity of Supply Misc 00:00: Jevity, Thierry as 00 she Medical consumes 9 Branch bottles a day. Miscellaneo 2020- Yes Patient [facility] 2-10 needs ity of Supply Misc 00:00: Jevity, Thierry as 00 she Medical consumes 9 Branch bottles a day. Miscellaneo 2020- Yes Patient [facility] 2-10 needs ity of Supply Misc 00:00: Jevity, Thierry as 00 she Medical consumes 9 Branch bottles a day. Miscellaneo 2020- Yes Patient [facility] 2-10 needs ity of Supply Misc 00:00: Jevity, Thierry as 00 she Medical consumes 9 Branch bottles a day. Miscellaneo 2020- Yes Patient [facility] 2-10 needs ity of Supply Misc 00:00: Jevity, Thierry as 00 she Medical consumes 9 Branch bottles a day. Miscellaneo 2020- Yes Patient [facility] 2-10 needs ity of Supply Misc 00:00: Jevity, Thierry as 00 she Medical consumes 9 Branch bottles a day. Miscellaneo 2020- Yes Patient [facility] 2-10 needs ity of Supply Misc 00:00: Jevity, Thierry as 00 she Medical consumes 9 Branch bottles a day. Miscellaneo 2020- Yes Patient [facility] 2-10 needs ity of Supply Misc 00:00: Jevity, Thierry as 00 she Medical consumes 9 Branch bottles a day. Miscellaneo 2020- Yes Patient [facility] 2-10 needs ity of Supply Misc 00:00: Jevity, Thierry as 00 she Medical consumes 9 Branch bottles a day. Miscellaneo 2020- Yes Patient [facility] 2-10 needs ity of Supply Misc 00:00: Jevity, Thierry as 00 she Medical consumes 9 Branch bottles a day. Miscellaneo 2020-1 Yes Patient [facility] 2-10 needs ity of Supply Misc 00:00: Jevity, Thierry as 00 she Medical consumes 9 Branch bottles a day. Miscellaneo 2020-1 Yes Patient [facility] 2-10 needs ity of Supply Misc 00:00: Jevity, Thierry as 00 she Medical consumes 9 Branch bottles a day. Miscellaneo 2020-1 Yes Patient [facility] 2-10 needs ity of Supply Misc 00:00: Jevity, Thierry as 00 she Medical consumes 9 Branch bottles a day. Miscellaneo 2020-1 Yes Patient [facility] 2-10 needs ity of Supply Misc 00:00: Jevity, Thierry as 00 she Medical consumes 9 Branch bottles a day. Miscellaneo 2020-1 Yes Patient [facility] 2-10 needs ity of Supply Misc 00:00: Jevity, Thierry as 00 she Medical consumes 9 Branch bottles a day. Miscellaneo 2020-1 Yes Patient [facility] 2-10 needs ity of Supply Misc 00:00: Jevity, Thierry as 00 she Medical consumes 9 Branch bottles a day. Miscellaneo 2020-1 Yes Patient [facility] 2-10 needs ity of Supply Misc 00:00: Jevity, Thierry as 00 she Medical consumes 9 Branch bottles a day. Miscellaneo 2020-1 Yes Patient [facility] 2-10 needs ity of Supply Misc 00:00: Jevity, Thierry as 00 she Medical consumes 9 Branch bottles a day. Miscellaneo 2020-1 Yes Patient [facility] 2-10 needs ity of Supply Misc 00:00: Jevity, Thierry as 00 she Medical consumes 9 Branch bottles a day. Miscellaneo 2020-1 Yes Patient [facility] 2-10 needs ity of Supply Misc 00:00: Jevity, Thierry as 00 she Medical consumes 9 Branch bottles a day. Miscellaneo 2020-1 Yes [facility] 2-10 needs ity of Supply Misc 00:00: Jevity, Thierry as 00 she Medical consumes 9 Branch bottles a day. Miscellaneo 2020-1 Yes Patient [facility] 2-10 needs ity of Supply Misc 00:00: Jevity, Thierry as 00 she Medical consumes 9 Branch bottles a day. Miscellaneo 2020-1 Yes Patient [facility] 2-10 needs ity of Supply Misc 00:00: Jevity, Thierry as 00 she Medical consumes 9 Branch bottles a day. Miscellaneo 2020-1 Yes Patient [facility] 2-10 needs ity of Supply Misc 00:00: Jevity, Thierry as 00 she Medical consumes 9 Branch bottles a day. Miscellaneo 2020-1 Yes Patient [facility] 2-10 needs ity of Supply Misc 00:00: Jevity, Thierry as 00 she Medical consumes 9 Branch bottles a day. Miscellaneo 2020-1 Yes Patient [facility] 2-10 needs ity of Supply Misc 00:00: Jevity, Thierry as 00 she Medical consumes 9 Branch bottles a day. Miscellaneo 2020-1 Yes Patient [facility] 2-10 needs ity of Supply Misc 00:00: Jevity, Thierry as 00 she Medical consumes 9 Branch bottles a day. Miscellaneo 2020-1 Yes Patient [facility] 2-10 needs ity of Supply Misc 00:00: Jevity, Thierry as 00 she Medical consumes 9 Branch bottles a day. Miscellaneo 2020-1 Yes Patient [facility] 2-10 needs ity of Supply Misc 00:00: Jevity, Thierry as 00 she Medical consumes 9 Branch bottles a day. Miscellaneo 2020-1 Yes Patient [facility] 2-10 needs ity of Supply Misc 00:00: Jevity, Thierry as 00 she Medical consumes 9 Branch bottles a day. Miscellaneo 2020-1 Yes Patient [facility] 2-10 needs ity of Supply Misc 00:00: Jevity, Thierry as 00 she Medical consumes 9 Branch bottles a day. Miscellaneo 2020-1 Yes Patient [facility] 2-10 needs ity of Supply Misc 00:00: Jevity, Thierry as 00 she Medical consumes 9 Branch bottles a day. Miscellaneo 2020-1 Yes Patient [facility] 2-10 needs ity of Supply Misc 00:00: Jevity, Thierry as 00 she Medical consumes 9 Branch bottles a day. Miscellaneo 2020-1 Yes Patient [facility] 2-10 needs ity of Supply Misc 00:00: Jevity, Thierry as 00 she Medical consumes 9 Branch bottles a day. Miscellaneo 2020-1 Yes Patient [facility] 2-10 needs ity of Supply Misc 00:00: Jevity, Thierry as 00 she Medical consumes 9 Branch bottles a day. Miscellaneo 2020-1 Yes Patient [facility] 2-10 needs ity of Supply Misc 00:00: Jevity, Thierry as 00 she Medical consumes 9 Branch bottles a day. Miscellaneo 2020-1 Yes Patient [facility] 2-10 needs ity of Supply Misc 00:00: Jevity, Thierry as 00 she Medical consumes 9 Branch bottles a day. Miscellaneo 2020-1 Yes Patient [facility] 2-10 needs ity of Supply Misc 00:00: Jevity, Thierry as 00 she Medical consumes 9 Branch bottles a day. Miscellaneo 2020-1 Yes Patient [facility] 2-10 needs ity of Supply Misc 00:00: Jevity, Thierry as 00 she Medical consumes 9 Branch bottles a day. Miscellaneo 2020-1 Yes Patient [facility] 2-10 needs ity of Supply Misc 00:00: Jevity, Thierry as 00 she Medical consumes 9 Branch bottles a day. Miscellaneo 2020-1 Yes Patient [facility] 2-10 needs ity of Supply Misc 00:00: Jevity, Thierry as 00 she Medical consumes 9 Branch bottles a day. Miscellaneo 2020-1 Yes Patient [facility] 2-10 needs ity of Supply Misc 00:00: Jevity, Thierry as 00 she Medical consumes 9 Branch bottles a day. Miscellaneo 2020-1 Yes Patient [facility] 2-10 needs ity of Supply Misc 00:00: Jevity, Thierry as 00 she Medical consumes 9 Branch bottles a day. Miscellaneo 2020-1 Yes Patient [facility] 2-10 needs ity of Supply Misc 00:00: Jevity, Thierry as 00 she Medical consumes 9 Branch bottles a day. Miscellaneo 2020-1 Yes Patient [facility] 2-10 needs ity of Supply Misc 00:00: Jevity, Thierry as 00 she Medical consumes 9 Branch bottles a day. Miscellaneo 2020-1 Yes Patient [facility] 2-10 needs ity of Supply Misc 00:00: Jevity, Thierry as 00 she Medical consumes 9 Branch bottles a day. Miscellaneo 2020-1 Yes Patient [facility] 2-10 needs ity of Supply Misc 00:00: Jevity, Thierry as 00 she Medical consumes 9 Branch bottles a day. Miscellaneo 2020-1 Yes Patient [facility] 2-10 needs ity of Supply Misc 00:00: Jevity, Thierry as 00 she Medical consumes 9 Branch bottles a day. Miscellaneo 2020-1 Yes Patient [facility] 2-10 needs ity of Supply Misc 00:00: Jevity, Thierry as 00 she Medical consumes 9 Branch bottles a day. Miscellaneo 2020-1 Yes Patient [facility] 2-10 needs ity of Supply Misc 00:00: Jevity, Thierry as 00 she Medical consumes 9 Branch bottles a day. Miscellaneo 2020-1 Yes Patient [facility] 2-10 needs ity of Supply Misc 00:00: Jevity, Thierry as 00 she Medical consumes 9 Branch bottles a day. Miscellaneo 2020-1 Yes Patient [facility] 2-10 needs ity of Supply Misc 00:00: Jevity, Thierry as 00 she Medical consumes 9 Branch bottles a day. Miscellaneo 2020-1 Yes Patient [facility] 2-10 needs ity of Supply Misc 00:00: Jevity, Thierry as 00 she Medical consumes 9 Branch bottles a day. Miscellaneo 2020-1 Yes Patient [facility] 2-10 needs ity of Supply Misc 00:00: Jevity, Thierry as 00 she Medical consumes 9 Branch bottles a day. Miscellaneo 2020-1 Yes Patient [facility] 2-10 needs ity of Supply Misc 00:00: Jevity, Thierry as 00 she Medical consumes 9 Branch bottles a day. Miscellaneo 2020-1 Yes Patient [facility] 2-10 needs ity of Supply Misc 00:00: Jevity, Thierry as 00 she Medical consumes 9 Branch bottles a day. Miscellaneo 2020-1 Yes Patient [facility] 2-10 needs ity of Supply Misc 00:00: Jevity, Thierry as 00 she Medical consumes 9 Branch bottles a day. Miscellaneo 2020-1 Yes Patient [facility] 2-10 needs ity of Supply Misc 00:00: Jevity, Thierry as 00 she Medical consumes 9 Branch bottles a day. Miscellaneo 2020-1 Yes Patient [facility] 2-10 needs ity of Supply Misc 00:00: Jevity, Thierry as 00 she Medical consumes 9 Branch bottles a day. Miscellaneo 2020-1 Yes Patient [facility] 2-10 needs ity of Supply Misc 00:00: Jevity, Thierry as 00 she Medical consumes 9 Branch bottles a day. Miscellaneo 2020-1 Yes Patient [facility] 2-10 needs ity of Supply Misc 00:00: Jevity, Thierry as 00 she Medical consumes 9 Branch bottles a day. Miscellaneo 2020-1 Yes Patient [facility] 2-10 needs ity of Supply Misc 00:00: Jevity, Thierry as 00 she Medical consumes 9 Branch bottles a day. Miscellaneo 2020-1 Yes Patient [facility] 2-10 needs ity of Supply Misc 00:00: Jevity, Thierry as 00 she Medical consumes 9 Branch bottles a day. Miscellaneo 2020-1 Yes Patient [facility] 2-10 needs ity of Supply Misc 00:00: Jevity, Thierry as 00 she Medical consumes 9 Branch bottles a day. Miscellaneo 2020-1 Yes Patient [facility] 2-10 needs ity of Supply Misc 00:00: Jevity, Thierry as 00 she Medical consumes 9 Branch bottles a day. Miscellaneo 2020-1 Yes Patient [facility] 2-10 needs ity of Supply Misc 00:00: Jevity, Thierry as 00 she Medical consumes 9 Branch bottles a day. Miscellaneo 2020-1 Yes Patient [facility] 2-10 needs ity of Supply Misc 00:00: Jevity, Thierry as 00 she Medical consumes 9 Branch bottles a day. Miscellaneo 2020-1 Yes Patient [facility] 2-10 needs ity of Supply Misc 00:00: Jevity, Thierry as 00 she Medical consumes 9 Branch bottles a day. Miscellaneo 2020- Yes Patient [facility] 2-10 needs ity of Supply Misc 00:00: Jevity, Thierry as 00 she Medical consumes 9 Branch bottles a day. Miscellaneo 2020- Yes Patient [facility] 2-10 needs ity of Supply Misc 00:00: Jevity, Thierry as 00 she Medical consumes 9 Branch bottles a day. Miscellaneo 2020- Yes Patient [facility] 2-10 needs ity of Supply Misc 00:00: Jevity, Thierry as 00 she Medical consumes 9 Branch bottles a day. Miscellaneo 2020- Yes Patient [facility] 2-10 needs ity of Supply Misc 00:00: Jevity, Thierry as 00 she Medical consumes 9 Branch bottles a day. Miscellaneo 2020- Yes Patient [facility] 2-10 needs ity of Supply Misc 00:00: Jevity, Thierry as 00 she Medical consumes 9 Branch bottles a day. levETIRAcet 2019-03 Yes Cerebrovasc 750mg Take 7.5 [facility] am 100 1-23 ular mL through ity of mg/mL oral 00:00: accident enteral [place] solution 00 (CVA), tube 2 Medical unspecified (two) Branch mechanism times daily. amLODIPine 2019-03 Yes Essential 10mg Take 1 [facility] 10 mg 1-23 hypertensio tablet ity o f tablet 00:00: n through enteral Medical tube Branch daily. lisinopriL 2019- Yes [id number] 40mg Take 1 U nivers 40 mg 1-23 tablet by ity of tablet 00:00: mouth daily. Medical Branch aspirin 81 2019- Yes [id number] 81mg Take 1 [facility] mg chewable 1-23 tablet ity of tablet 00:00: through enteral Medical tube Branch daily. clopidogreL 2020- Yes [id number] 75mg Take 1 [facility] 75 mg 1-23 tablet ity of tablet 00:00: through [place] enteral Medical tube Branch daily. levETIRAcet 2019- Yes [id number] 750mg Take 7.5 [facility] am 100 1-23 mL through ity of mg/mL oral 00:00: [place] solution 00 tube 2 Medical (two) Branch times daily. amLODIPine 2019- Yes [id number] 10mg Take 1 U nivers 10 mg 1-23 tablet ity of tablet 00:00: through [place] enteral Medical tube Branch daily. atorvastati 2019-03 Yes [id number] 40mg Take 1 [facility] n 40 mg 1-23 tablet ity of tablet 00:00: through [place] 00 enteral Medical tube at Branch bedtime. famotidine 2019- Yes [id number] 20mg Take 1 [facility] 20 mg 1-23 tablet by ity of tablet 00:00: mouth 2 [place] 00 (two) Medical times Branch daily. Polyethylen 2019-03 Yes [id number] 17g Take 1 [facility] e Glycol 1-23 Packet ity of 3350 17 00:00: through [place] gram powder 00 enteral Medic al tube 2 Branch (two) times daily. lisinopriL 2019- Yes [id number] 40mg Take 1 U nivers 40 mg 1-23 tablet by ity of tablet 00:00: mouth [place] 00 daily. Medical Branch Polyethylen 2019-03 Yes [id number] 17g Take 1 [facility] e Glycol 1-23 Packet ity of 3350 17 00:00: through [place] gram powder 00 enteral Medic al tube 2 Branch (two) times daily. risperiDONE 2019- Yes [id number] .5mg Take 1 [facility] 0.5 mg 1-23 tablet ity of tablet 00:00: through [place] enteral Medical tube 2 Branch (two) times daily. aspirin 81 2019- Yes [id number] 81mg Take 1 [facility] mg chewable 1-23 tablet ity of tablet 00:00: through [place] enteral Medical tube Branch daily. clopidogreL 2019- Yes [id number] 75mg Take 1 [facility] 75 mg 1-23 tablet ity of tablet 00:00: through [place] enteral Medical tube Branch daily. levETIRAcet 2019- Yes [id number] 750mg Take 7.5 [facility] am 100 1-23 mL through ity of mg/mL oral 00:00: [place] solution 00 tube 2 Medical (two) Branch times daily. amLODIPine 2019-03 Yes [id number] 10mg Take 1 U nivers 10 mg 1-23 tablet ity of tablet 00:00: through [place] enteral Medical tube Branch daily. atorvastati 2019-03 Yes [id number] 40mg Take 1 [facility] n 40 mg 1-23 tablet ity of tablet 00:00: through [place] enteral Medical tube at Branch bedtime. famotidine 2020- Yes [id number] 20mg Take 1 [facility] 20 mg 1-23 tablet by ity of tablet 00:00: mouth 2 [place] (two) Medical times Branch daily. lisinopriL 2019- Yes [id number] 40mg Take 1 U nivers 40 mg 1-23 tablet by ity of tablet 00:00: mouth [place] 00 daily. Medical Branch Polyethylen 2019- Yes [id number] 17g Take 1 [facility] e Glycol 1-23 Packet ity of 3350 17 00:00: through [place] gram powder 00 enteral Medic al tube 2 Branch (two) times daily. risperiDONE 2020- Yes [id number] .5mg Take 1 [facility] 0.5 mg 1-23 tablet ity of tablet 00:00: through [place] 00 enteral Medical tube 2 Branch (two) times daily. aspirin 81 2020- Yes [id number] 81mg Take 1 [facility] mg chewable 1-23 tablet ity of tablet 00:00: through [place] 00 enteral Medical tube Branch daily. clopidogreL 2019- Yes [id number] 75mg Take 1 [facility] 75 mg 1-23 tablet ity of tablet 00:00: through [place] enteral Medical tube Branch daily. levETIRAcet 2020- Yes [id number] 750mg Take 7.5 [facility] am 100 1-23 mL through ity of mg/mL oral 00:00: [place] solution 00 tube 2 Medical (two) Branch times daily. amLODIPine 2019- Yes [id number] 10mg Take 1 U nivers 10 mg 1-23 tablet ity of tablet 00:00: through [place] 00 enteral Medical tube Branch daily. atorvastati 2019- Yes [id number] 40mg Take 1 [facility] n 40 mg 1-23 tablet ity of tablet 00:00: through [place] enteral Medical tube at Branch bedtime. famotidine 2020- Yes [id number] 20mg Take 1 [facility] 20 mg 1-23 tablet by ity of tablet 00:00: mouth 2 [place] (two) Medical times Branch daily. lisinopriL 2020- Yes [id number] 40mg Take 1 U nivers 40 mg 1-23 tablet by ity of tablet 00:00: mouth [place] 00 daily. Medical Branch Polyethylen 2019- Yes [id number] 17g Take 1 [facility] e Glycol 1-23 Packet ity of 3350 17 00:00: through [place] gram powder 00 enteral Medic al tube 2 Branch (two) times daily. risperiDONE 2019- Yes [id number] .5mg Take 1 [facility] 0.5 mg 1-23 tablet ity of tablet 00:00: through [place] enteral Medical tube 2 Branch (two) times daily. aspirin 81 2019-03 Yes [id number] 81mg Take 1 [facility] mg chewable 1-23 tablet ity of tablet 00:00: through [place] enteral Medical tube Branch daily. clopidogreL 2019-03 Yes [id number] 75mg Take 1 [facility] 75 mg 1-23 tablet ity of tablet 00:00: through [place] enteral Medical tube Branch daily. levETIRAcet 2019- Yes [id number] 750mg Take 7.5 [facility] am 100 1-23 mL through ity of mg/mL oral 00:00: [place] solution 00 tube 2 Medical (two) Branch times daily. amLODIPine 2019- Yes [id number] 10mg Take 1 U nivers 10 mg 1-23 tablet ity of tablet 00:00: through [place] enteral Medical tube Branch daily. atorvastati 2019- Yes [id number] 40mg Take 1 [facility] n 40 mg 1-23 tablet ity of tablet 00:00: through [place] enteral Medical tube at Branch bedtime. famotidine 2019- Yes [id number] 20mg Take 1 [facility] 20 mg 1-23 tablet by ity of tablet 00:00: mouth 2 [place] (two) Medical times Branch daily. lisinopriL 2019- Yes [id number] 40mg Take 1 U nivers 40 mg 1-23 tablet by ity of tablet 00:00: mouth daily. Medical Branch Polyethylen 2019- Yes [id number] 17g Take 1 [facility] e Glycol 1-23 Packet ity of 3350 17 00:00: through [place] gram powder 00 enteral Medic al tube 2 Branch (two) times daily. risperiDONE 2019- Yes [id number] .5mg Take 1 [facility] 0.5 mg 1-23 tablet ity of tablet 00:00: through [place] enteral Medical tube 2 Branch (two) times daily. aspirin 81 2019-03 Yes [id number] 81mg Take 1 [facility] mg chewable 1-23 tablet ity of tablet 00:00: through [place] enteral Medical tube Branch daily. clopidogreL 2019-1 Yes [id number] 75mg Take 1 [facility] 75 mg 1-23 tablet ity of tablet 00:00: through [place] enteral Medical tube Branch daily. levETIRAcet 2020- Yes [id number] 750mg Take 7.5 [facility] am 100 1-23 mL through ity of mg/mL oral 00:00: [place] solution 00 tube 2 Medical (two) Branch times daily. amLODIPine 2019- Yes [id number] 10mg Take 1 U nivers 10 mg 1-23 tablet ity of tablet 00:00: through [place] enteral Medical tube Branch daily. atorvastati 2020- Yes [id number] 40mg Take 1 [facility] n 40 mg 1-23 tablet ity of tablet 00:00: through [place] enteral Medical tube at Branch bedtime. famotidine 2019- Yes [id number] 20mg Take 1 [facility] 20 mg 1-23 tablet by ity of tablet 00:00: mouth 2 [place] (two) Medical times Branch daily. lisinopriL 2019- Yes [id number] 40mg Take 1 U nivers 40 mg 1-23 tablet by ity of tablet 00:00: mouth [place] 00 daily. Medical Branch Polyethylen 2019- Yes [id number] 17g Take 1 [facility] e Glycol 1-23 Packet ity of 3350 17 00:00: through [place] gram powder 00 enteral Medic al tube 2 Branch (two) times daily. risperiDONE 2019- Yes [id number] .5mg Take 1 [facility] 0.5 mg 1-23 tablet ity of tablet 00:00: through [place] enteral Medical tube 2 Branch (two) times daily. aspirin 81 2019- Yes [id number] 81mg Take 1 [facility] mg chewable 1-23 tablet ity of tablet 00:00: through [place] enteral Medical tube Branch daily. clopidogreL 2020- Yes [id number] 75mg Take 1 [facility] 75 mg 1-23 tablet ity of tablet 00:00: through [place] enteral Medical tube Branch daily. levETIRAcet 2019- Yes [id number] 750mg Take 7.5 [facility] am 100 1-23 mL through ity of mg/mL oral 00:00: [place] solution 00 tube 2 Medical (two) Branch times daily. amLODIPine 2019- Yes [id number] 10mg Take 1 U nivers 10 mg 1-23 tablet ity of tablet 00:00: through [place] enteral Medical tube Branch daily. atorvastati 2020- Yes [id number] 40mg Take 1 [facility] n 40 mg 1-23 tablet ity of tablet 00:00: through [place] enteral Medical tube at Branch bedtime. famotidine 2020- Yes [id number] 20mg Take 1 [facility] 20 mg 1-23 tablet by ity of tablet 00:00: mouth 2 [place] (two) Medical times Branch daily. lisinopriL 2019-03 Yes [id number] 40mg Take 1 U nivers 40 mg 1-23 tablet by ity of tablet 00:00: mouth [place] 00 daily. Medical Branch Polyethylen 2019- Yes [id number] 17g Take 1 [facility] e Glycol 1-23 Packet ity of 3350 17 00:00: through [place] gram powder 00 enteral Medic al tube 2 Branch (two) times daily. risperiDONE 2019- Yes [id number] .5mg Take 1 [facility] 0.5 mg 1-23 tablet ity of tablet 00:00: through [place] enteral Medical tube 2 Branch (two) times daily. aspirin 81 2019- Yes [id number] 81mg Take 1 [facility] mg chewable 1-23 tablet ity of tablet 00:00: through [place] enteral Medical tube Branch daily. clopidogreL 2020- Yes [id number] 75mg Take 1 [facility] 75 mg 1-23 tablet ity of tablet 00:00: through [place] enteral Medical tube Branch daily. levETIRAcet 2019- Yes [id number] 750mg Take 7.5 [facility] am 100 1-23 mL through ity of mg/mL oral 00:00: [place] solution 00 tube 2 Medical (two) Branch times daily. amLODIPine 2019- Yes [id number] 10mg Take 1 U nivers 10 mg 1-23 tablet ity of tablet 00:00: through [place] enteral Medical tube Branch daily. atorvastati 2019- Yes [id number] 40mg Take 1 [facility] n 40 mg 1-23 tablet ity of tablet 00:00: through [place] enteral Medical tube at Branch bedtime. famotidine 2019- Yes [id number] 20mg Take 1 [facility] 20 mg 1-23 tablet by ity of tablet 00:00: mouth 2 [place] (two) Medical times Branch daily. lisinopriL 2019- Yes [id number] 40mg Take 1 U nivers 40 mg 1-23 tablet by ity of tablet 00:00: mouth 00 daily. Medical Branch Polyethylen 2019-03 Yes [id number] 17g Take 1 [facility] e Glycol 1-23 Packet ity of 3350 17 00:00: through [place] gram powder 00 enteral Medic al tube 2 Branch (two) times daily. risperiDONE 2019-03 Yes [id number] .5mg Take 1 [facility] 0.5 mg 1-23 tablet ity of tablet 00:00: through enteral Medical tube 2 Branch (two) times daily. aspirin 81 2019-03 Yes [id number] 81mg Take 1 [facility] mg chewable 1-23 tablet ity of tablet 00:00: through enteral Medical tube Branch daily. clopidogreL 2019-03 Yes [id number] 75mg Take 1 [facility] 75 mg 1-23 tablet ity of tablet 00:00: through [place] enteral Medical tube Branch daily. levETIRAcet 2019-03 Yes [id number] 750mg Take 7.5 [facility] am 100 1-23 mL through ity of mg/mL oral 00:00: [place] solution 00 tube 2 Medical (two) Branch times daily. amLODIPine 2019-03 Yes [id number] 10mg Take 1 U nivers 10 mg 1-23 tablet ity of tablet 00:00: through [place] enteral Medical tube Branch daily. atorvastati 2019-03 Yes [id number] 40mg Take 1 [facility] n 40 mg 1-23 tablet ity of tablet 00:00: through enteral Medical tube at Branch bedtime. famotidine 2019-03 Yes [id number] 20mg Take 1 [facility] 20 mg 1-23 tablet by ity of tablet 00:00: mouth 2 (two) Medical times Branch daily. lisinopriL 2019-03 Yes [id number] 40mg Take 1 U nivers 40 mg 1-23 tablet by ity of tablet 00:00: mouth 00 daily. Medical Branch Polyethylen 2019-03 Yes [id number] 17g Take 1 [facility] e Glycol 1-23 Packet ity of 3350 17 00:00: through [place] gram powder 00 enteral Medic al tube 2 Branch (two) times daily. risperiDONE 2019-03 Yes [id number] .5mg Take 1 [facility] 0.5 mg 1-23 tablet ity of tablet 00:00: through enteral Medical tube 2 Branch (two) times daily. aspirin 81 2019-03 Yes [id number] 81mg Take 1 [facility] mg chewable 1-23 tablet ity of tablet 00:00: through [place] enteral Medical tube Branch daily. clopidogreL 2019- Yes [id number] 75mg Take 1 [facility] 75 mg 1-23 tablet ity of tablet 00:00: through [place] enteral Medical tube Branch daily. levETIRAcet 2019- Yes [id number] 750mg Take 7.5 [facility] am 100 1-23 mL through [facility] mg/mL oral 00:00: [facility] [place] solution 00 tube 2 [facility] (two) Branch times daily. amLODIPine 2019- Yes [id number] 10mg Take 1 [facility] 10 mg 1-23 tablet [facility] of tablet 00:00: through [place] [facility] tube Branch daily. atorvastati 2019- Yes [id number] 40mg Take 1 [facility] 40 mg 1-23 tablet [facility] of tablet 00:00: through [place] [facility] tube at Branch bedtime. famotidine 2019- Yes [id number] 20mg Take 1 [facility] 20 mg 1-23 tablet by [facility] of tablet 00:00: mouth 2 [place] (two) Medical times Branch daily. lisinopriL 2019- Yes [id number] 40mg Take 1 [facility] 40 mg 1-23 tablet by [facility] of tablet 00:00: mouth [place] 00 daily. Medical Branch Polyethylen 2019- Yes [id number] 17g Take 1 [facility] e Glycol 1-23 Packet ity of 3350 17 00:00: through [place] gram powder 00 enteral Medic al tube 2 Branch (two) times daily. risperiDONE 2019- Yes [id number] .5mg Take 1 [facility] 0.5 mg 1-23 tablet it[facility] of tablet 00:00: through [place] [facility] tube 2 Branch (two) times daily. aspirin 81 2019- Yes [id number] 81mg Take 1 [facility] mg chewable 1-23 tablet ity of tablet 00:00: through [place] [facility] tube Branch daily. clopidogreL 2019- Yes [id number] 75mg Take 1 [facility] 75 mg 1-23 tablet [facility] of tablet 00:00: through [place] [facility] tube Branch daily. levETIRAcet 2019- Yes [id number] 750mg Take 7.5 [facility] am 100 1-23 mL through [facility] mg/mL oral 00:00: [facility] [place] solution 00 tube 2 [facility] (two) Branch times daily. atorvastati 2019-03 Yes Essential 40mg Take 1 [facility] n 40 mg 1-23 hypertensio tablet ity of tablet 00:00: n through [place] 00 enteral Medical tube at Branch bedtime. amLODIPine 2019-03 Yes [id number] 10mg Take 1 [facility] 10 mg 1-23 tablet ity of tablet 00:00: through [place] [facility] tube Branch daily. atorvastati 2019-03 Yes [id number] 40mg Take 1 [facility] n 40 mg 1-23 tablet ity of tablet 00:00: through [place] [facility] tube at Branch bedtime. famotidine 2019- Yes [id number] 20mg Take 1 [facility] 20 mg 1-23 tablet by [facility] of tablet 00:00: mouth 2 [place] (two) Medical times Branch daily. lisinopriL 2019-03 Yes [id number] 40mg Take 1 [facility] 40 mg 1-23 tablet by [facility] of tablet 00:00: mouth [place] 00 daily. Medical Branch Polyethylen 2019-03 Yes [id number] 17g Take 1 [facility] e Glycol 1-23 Packet ity of 3350 17 00:00: through [place] gram powder 00 enteral Medic al tube 2 Branch (two) times daily. risperiDONE 2019- Yes [id number] .5mg Take 1 [facility] 0.5 mg 1-23 tablet ity of tablet 00:00: through [place] 00 enteral [facility] tube 2 Branch (two) times daily. aspirin 81 2019- Yes [id number] 81mg Take 1 [facility] mg chewable 1-23 tablet ity of tablet 00:00: through [place] 00 enteral [facility] tube Branch daily. clopidogreL 2019- Yes [id number] 75mg Take 1 [facility] 75 mg 1-23 tablet [facility] of tablet 00:00: through [place] [facility] tube Branch daily. levETIRAcet 2019- Yes [id number] 750mg Take 7.5 [facility] am 100 1-23 mL through [facility] mg/mL oral 00:00: [facility] [place] 00 tube 2 [facility] (two) Branch times daily. amLODIPine 2019-03 Yes [id number] 10mg Take 1 [facility] 10 mg 1-23 tablet ity of tablet 00:00: through [place] 00 enteral [facility] tube Branch daily. atorvastati 2019-03 Yes [id number] 40mg Take 1 [facility] n 40 mg 1-23 tablet [facility] of tablet 00:00: through [facility] tube at Branch bedtime. famotidine 2019- Yes [id number] 20mg Take 1 [facility] 20 mg 1-23 tablet by [facility] of tablet 00:00: mouth 2 (two) Medical times Branch daily. lisinopriL 2019-03 Yes [id number] 40mg Take 1 [facility] 40 mg 1-23 tablet by [facility] of tablet 00:00: mouth daily. Medical Branch Polyethylen 2019- Yes [id number] 17g Take 1 [facility] e Glycol 1-23 Packet ity of 3350 17 00:00: through [place] gram powder 00 enteral Medic al tube 2 Branch (two) times daily. risperiDONE 2019- Yes [id number] .5mg Take 1 [facility] 0.5 mg 1-23 tablet ity of tablet 00:00: through [place] [facility] tube 2 Branch (two) times daily. aspirin 81 2019-03 Yes [id number] 81mg Take 1 [facility] mg chewable 1-23 tablet ity of tablet 00:00: through [place] [facility] tube Branch daily. clopidogreL 2019- Yes [id number] 75mg Take 1 [facility] 75 mg 1-23 tablet [facility] of tablet 00:00: through [place] [facility] tube Branch daily. levETIRAcet 2019- Yes [id number] 750mg Take 7.5 [facility] am 100 1-23 mL through [facility] mg/mL oral 00:00: [facility] [place] solution 00 tube 2 [facility] (two) Branch times daily. amLODIPine 2019-03 Yes [id number] 10mg Take 1 [facility] 10 mg 1-23 tablet ity of tablet 00:00: through [place] [facility] tube Branch daily. atorvastati 2019- Yes [id number] 40mg Take 1 [facility] n 40 mg 1-23 tablet ity of tablet 00:00: through [place] [facility] tube at Branch bedtime. famotidine 2019- Yes [id number] 20mg Take 1 [facility] 20 mg 1-23 tablet by [facility] of tablet 00:00: mouth 2 [place] (two) Medical times Branch daily. lisinopriL 2019-03 Yes [id number] 40mg Take 1 [facility] 40 mg 1-23 tablet by [facility] of tablet 00:00: mouth [place] 00 daily. Medical Branch Polyethylen 2019-03 Yes [id number] 17g Take 1 [facility] e Glycol 1-23 Packet ity of 3350 17 00:00: through [place] gram powder 00 enteral Medic al tube 2 Branch (two) times daily. risperiDONE 2019-03 Yes [id number] .5mg Take 1 [facility] 0.5 mg 1-23 tablet ity of tablet 00:00: through [place] [facility] tube 2 Branch (two) times daily. aspirin 81 2019-03 Yes [id number] 81mg Take 1 [facility] mg chewable 1-23 tablet ity of tablet 00:00: through [place] [facility] tube Branch daily. clopidogreL 2019- Yes [id number] 75mg Take 1 [facility] 75 mg 1-23 tablet ity of tablet 00:00: through [place] [facility] tube Branch daily. levETIRAcet 2019-03 Yes [id number] 750mg Take 7.5 [facility] am 100 1-23 mL through [facility] mg/mL oral 00:00: [facility] [place] 00 tube 2 [facility] (two) Branch times daily. amLODIPine 2019-03 Yes [id number] 10mg Take 1 [facility] 10 mg 1-23 tablet ity of tablet 00:00: through [place] [facility] tube Branch daily. atorvastati 2019-03 Yes [id number] 40mg Take 1 [facility] n 40 mg 1-23 tablet ity of tablet 00:00: through [place] [facility] tube at Branch bedtime. famotidine 2019-03 Yes [id number] 20mg Take 1 [facility] 20 mg 1-23 tablet by [facility] of tablet 00:00: mouth 2 [place] (two) Medical times Branch daily. lisinopriL 2019-03 Yes [id number] 40mg Take 1 [facility] 40 mg 1-23 tablet by [facility] of tablet 00:00: mouth 00 daily. Medical Branch Polyethylen 2019-03 Yes [id number] 17g Take 1 [facility] e Glycol 1-23 Packet ity of 3350 17 00:00: through [place] gram powder 00 enteral Medic al tube 2 Branch (two) times daily. risperiDONE 2019-03 Yes [id number] .5mg Take 1 [facility] 0.5 mg 1-23 tablet ity of tablet 00:00: through [place] 00 enteral [facility] tube 2 Branch (two) times daily. aspirin 81 2019-03 Yes [id number] 81mg Take 1 [facility] mg chewable 1-23 tablet ity of tablet 00:00: through [place] [facility] tube Branch daily. clopidogreL 2020- Yes [id number] 75mg Take 1 [facility] 75 mg 1-23 tablet ity of tablet 00:00: through [place] [facility] tube Branch daily. levETIRAcet 2020- Yes [id number] 750mg Take 7.5 [facility] am 100 1-23 mL through [facility] mg/mL oral 00:00: [facility] [place] [facility] 00 tube 2 [facility] (two) Branch times daily. amLODIPine 2020- Yes [id number] 10mg Take 1 [facility] 10 mg 1-23 tablet ity of tablet 00:00: through [place] [facility] tube Branch daily. atorvastati 2020- Yes [id number] 40mg Take 1 [facility] n 40 mg 1-23 tablet ity of tablet 00:00: through [place] [facility] tube at Branch bedtime. famotidine 2020- Yes [id number] 20mg Take 1 [facility] 20 mg 1-23 tablet by [facility] of tablet 00:00: mouth 2 [place] (two) Medical times Branch daily. lisinopriL 2020- Yes [id number] 40mg Take 1 [facility] 40 mg 1-23 tablet by [facility] of tablet 00:00: mouth 00 daily. Medical Branch Polyethylen 2020- Yes [id number] 17g Take 1 [facility] e Glycol 1-23 Packet ity of 3350 17 00:00: through [place] gram powder 00 enteral Medic al tube 2 Branch (two) times daily. risperiDONE 2019- Yes [id number] .5mg Take 1 [facility] 0.5 mg 1-23 tablet ity of tablet 00:00: through [place] [facility] tube 2 Branch (two) times daily. aspirin 81 2020- Yes [id number] 81mg Take 1 [facility] mg chewable 1-23 tablet ity of tablet 00:00: through [place] [facility] tube Branch daily. clopidogreL 2020- Yes [id number] 75mg Take 1 [facility] 75 mg 1-23 tablet ity of tablet 00:00: through [place] [facility] tube Branch daily. levETIRAcet 2019- Yes [id number] 750mg Take 7.5 [facility] am 100 1-23 mL through [facility] mg/mL oral 00:00: [facility] [place] 00 tube 2 [facility] (two) Branch times daily. amLODIPine 2019- Yes [id number] 10mg Take 1 [facility] 10 mg 1-23 tablet ity of tablet 00:00: through [place] [facility] tube Branch daily. atorvastati 2019- Yes [id number] 40mg Take 1 [facility] n 40 mg 1-23 tablet ity of tablet 00:00: through [place] [facility] tube at Branch bedtime. famotidine 2019- Yes [id number] 20mg Take 1 [facility] 20 mg 1-23 tablet by [facility] of tablet 00:00: mouth 2 [place] (two) Medical times Branch daily. lisinopriL 2019- Yes [id number] 40mg Take 1 [facility] 40 mg 1-23 tablet by [facility] of tablet 00:00: mouth [place] 00 daily. Medical Branch Polyethylen 2019- Yes [id number] 17g Take 1 [facility] e Glycol 1-23 Packet ity of 3350 17 00:00: through [place] gram powder 00 enteral Medic al tube 2 Branch (two) times daily. risperiDONE 2019- Yes [id number] .5mg Take 1 [facility] 0.5 mg 1-23 tablet ity of tablet 00:00: through [place] [facility] tube 2 Branch (two) times daily. aspirin 81 2019- Yes [id number] 81mg Take 1 [facility] mg chewable 1-23 tablet ity of tablet 00:00: through [place] [facility] tube Branch daily. clopidogreL 2020- Yes [id number] 75mg Take 1 [facility] 75 mg 1-23 tablet ity of tablet 00:00: through [place] [facility] tube Branch daily. levETIRAcet 2019- Yes [id number] 750mg Take 7.5 [facility] am 100 1-23 mL through [facility] mg/mL oral 00:00: [facility] [place] solution 00 tube 2 [facility] (two) Branch times daily. amLODIPine 2019- Yes [id number] 10mg Take 1 [facility] 10 mg 1-23 tablet ity of tablet 00:00: through [place] [facility] tube Branch daily. atorvastati 2019- Yes [id number] 40mg Take 1 [facility] n 40 mg 1-23 tablet ity of tablet 00:00: through [place] [facility] tube at Branch bedtime. famotidine 2019-03 Yes [id number] 20mg Take 1 [facility] 20 mg 1-23 tablet by [facility] of tablet 00:00: mouth 2 (two) Medical times Branch daily. lisinopriL 2020- Yes [id number] 40mg Take 1 [facility] 40 mg 1-23 tablet by [facility] of tablet 00:00: mouth 00 daily. Medical Branch Polyethylen 2019- Yes [id number] 17g Take 1 [facility] e Glycol 1-23 Packet ity of 3350 17 00:00: through [place] gram powder 00 enteral Medic al tube 2 Branch (two) times daily. risperiDONE 2019- Yes [id number] .5mg Take 1 [facility] 0.5 mg 1-23 tablet ity of tablet 00:00: through [place] [facility] tube 2 Branch (two) times daily. aspirin 81 2019- Yes [id number] 81mg Take 1 [facility] mg chewable 1-23 tablet ity of tablet 00:00: through [place] [facility] tube Branch daily. clopidogreL 2019- Yes [id number] 75mg Take 1 [facility] 75 mg 1-23 tablet ity of tablet 00:00: through [place] [facility] tube Branch daily. levETIRAcet 2019- Yes [id number] 750mg Take 7.5 [facility] am 100 1-23 mL through [facility] mg/mL oral 00:00: [facility] [place] solution 00 tube 2 [facility] (two) Branch times daily. amLODIPine 2019- Yes [id number] 10mg Take 1 [facility] 10 mg 1-23 tablet ity of tablet 00:00: through [place] [facility] tube Branch daily. atorvastati 2019- Yes [id number] 40mg Take 1 [facility] n 40 mg 1-23 tablet ity of tablet 00:00: through [place] [facility] tube at Branch bedtime. famotidine 2019- Yes [id number] 20mg Take 1 [facility] 20 mg 1-23 tablet by [facility] of tablet 00:00: mouth 2 [place] (two) Medical times Branch daily. lisinopriL 2019- Yes [id number] 40mg Take 1 [facility] 40 mg 1-23 tablet by [facility] of tablet 00:00: mouth [place] 00 daily. Medical Branch Polyethylen 2019- Yes [id number] 17g Take 1 [facility] e Glycol 1-23 Packet ity of 3350 17 00:00: through [place] gram powder 00 enteral Medic al tube 2 Branch (two) times daily. risperiDONE 2019- Yes [id number] .5mg Take 1 [facility] 0.5 mg 1-23 tablet ity of tablet 00:00: through [place] [facility] tube 2 Branch (two) times daily. aspirin 81 2019-03 Yes [id number] 81mg Take 1 [facility] mg chewable 1-23 tablet ity of tablet 00:00: through [place] [facility] tube Branch daily. clopidogreL 2019-03 Yes [id number] 75mg Take 1 [facility] 75 mg 1-23 tablet ity of tablet 00:00: through [place] [facility] tube Branch daily. levETIRAcet 2019-03 Yes [id number] 750mg Take 7.5 [facility] am 100 1-23 mL through [facility] mg/mL oral 00:00: [facility] [place] solution 00 tube 2 Medical (two) Branch times daily. amLODIPine 2019- Yes [id number] 10mg Take 1 [facility] 10 mg 1-23 tablet ity of tablet 00:00: through [place] [facility] tube Branch daily. atorvastati 2019- Yes [id number] 40mg Take 1 [facility] n 40 mg 1-23 tablet ity of tablet 00:00: through [place] [facility] tube at Branch bedtime. famotidine 2019- Yes [id number] 20mg Take 1 [facility] 20 mg 1-23 tablet by [facility] of tablet 00:00: mouth 2 [place] (two) Medical times Branch daily. lisinopriL 2019- Yes [id number] 40mg Take 1 [facility] 40 mg 1-23 tablet by [facility] of tablet 00:00: mouth [place] 00 daily. Medical Branch Polyethylen 2019- Yes [id number] 17g Take 1 [facility] e Glycol 1-23 Packet ity of 3350 17 00:00: through [place] gram powder 00 enteral Medic al tube 2 Branch (two) times daily. risperiDONE 2019- Yes [id number] .5mg Take 1 [facility] 0.5 mg 1-23 tablet ity of tablet 00:00: through [place] 00 enteral Medical tube 2 Branch (two) times daily. aspirin 81 2019-03 Yes [id number] 81mg Take 1 [facility] mg chewable 1-23 tablet ity of tablet 00:00: through [place] 00 enteral Medical tube Branch daily. clopidogreL 2019- Yes [id number] 75mg Take 1 [facility] 75 mg 1-23 tablet ity of tablet 00:00: through [place] [facility] tube Branch daily. levETIRAcet 2019- Yes [id number] 750mg Take 7.5 [facility] am 100 1-23 mL through [facility] of mg/mL oral 00:00: [facility] [place] solution 00 tube 2 Medical (two) Branch times daily. amLODIPine 2019-03 Yes [id number] 10mg Take 1 [facility] 10 mg 1-23 tablet ity of tablet 00:00: through [place] [facility] tube Branch daily. atorvastati 2019-03 Yes [id number] 40mg Take 1 [facility] n 40 mg 1-23 tablet ity of tablet 00:00: through [place] [facility] tube at Branch bedtime. famotidine 2019- Yes [id number] 20mg Take 1 [facility] 20 mg 1-23 tablet by [facility]y of tablet 00:00: mouth 2 [place] (two) Medical times Branch daily. lisinopriL 2019- Yes [id number] 40mg Take 1 [facility] 40 mg 1-23 tablet by [facility] of tablet 00:00: mouth [place] 00 daily. Medical Branch Polyethylen 2019- Yes [id number] 17g Take 1 [facility] e Glycol 1-23 Packet ity of 3350 17 00:00: through [place] gram powder 00 enteral Medic al tube 2 Branch (two) times daily. risperiDONE 2019- Yes [id number] .5mg Take 1 [facility] 0.5 mg 1-23 tablet ity of tablet 00:00: through [place] [facility] tube 2 Branch (two) times daily. aspirin 81 2019- Yes [id number] 81mg Take 1 [facility] mg chewable 1-23 tablet ity of tablet 00:00: through [place] [facility] tube Branch daily. clopidogreL 2019- Yes [id number] 75mg Take 1 [facility] 75 mg 1-23 tablet ity of tablet 00:00: through [place] [facility] tube Branch daily. levETIRAcet 2019- Yes [id number] 750mg Take 7.5 [facility] am 100 1-23 mL through [facility] of mg/mL oral 00:00: [facility] [place] solution 00 tube 2 [facility] (two) Branch times daily. amLODIPine 2019- Yes [id number] 10mg Take 1 [facility] 10 mg 1-23 tablet ity of tablet 00:00: through [place] [facility] tube Branch daily. atorvastati 2019-03 Yes [id number] 40mg Take 1 [facility] n 40 mg 1-23 tablet ity of tablet 00:00: through [place] [facility] tube at Branch bedtime. famotidine 2019-03 Yes [id number] 20mg Take 1 [facility] 20 mg 1-23 tablet by ity of tablet 00:00: mouth 2 [place] (two) Medical times Branch daily. lisinopriL 2019-03 Yes [id number] 40mg Take 1 [facility] 40 mg 1-23 tablet by ity of tablet 00:00: mouth [place] 00 daily. Medical Branch Polyethylen 2019- Yes [id number] 17g Take 1 [facility] e Glycol 1-23 Packet ity of 3350 17 00:00: through [place] gram powder 00 enteral Medic al tube 2 Branch (two) times daily. risperiDONE 2019- Yes [id number] .5mg Take 1 [facility] 0.5 mg 1-23 tablet ity of tablet 00:00: through [place] [facility] tube 2 Branch (two) times daily. aspirin 81 2019-03 Yes [id number] 81mg Take 1 [facility] mg chewable 1-23 tablet ity of tablet 00:00: through [place] [facility] tube Branch daily. clopidogreL 2019-03 Yes [id number] 75mg Take 1 [facility] 75 mg 1-23 tablet ity of tablet 00:00: through [place] [facility] tube Branch daily. levETIRAcet 2019- Yes [id number] 750mg Take 7.5 [facility] am 100 1-23 mL through [facility] of mg/mL oral 00:00: [facility] [place] solution 00 tube 2 Medical (two) Branch times daily. amLODIPine 2019-03 Yes [id number] 10mg Take 1 [facility] 10 mg 1-23 tablet ity of tablet 00:00: through [place] [facility] tube Branch daily. famotidine 2019-03 Yes Gastroesoph 20mg Take 1 [facility] 20 mg 1-23 ageal tablet by ity of tablet 00:00: reflux mouth 2 [place] disease, (two) Medical unspecified times Branch whether daily. esophagitis present atorvastati 2019- Yes [id number] 40mg Take 1 [facility] n 40 mg 1-23 tablet ity of tablet 00:00: through [place] [facility] tube at Branch bedtime. famotidine 2019- Yes [id number] 20mg Take 1 [facility] 20 mg 1-23 tablet by ity of tablet 00:00: mouth 2 [place] (two) Medical times Branch daily. lisinopriL 2019- Yes [id number] 40mg Take 1 [facility] 40 mg 1-23 tablet by [facility] of tablet 00:00: mouth daily. Medical Branch Polyethylen 2020- Yes [id number] 17g Take 1 [facility] e Glycol 1-23 Packet ity of 3350 17 00:00: through [place] 00 [facility] al tube 2 Branch (two) times daily. risperiDONE 2019-03 Yes [id number] .5mg Take 1 [facility] 0.5 mg 1-23 tablet ity of tablet 00:00: through [facility] tube 2 Branch (two) times daily. aspirin 81 2019-03 Yes [id number] 81mg Take 1 [facility] mg chewable 1-23 tablet ity of tablet 00:00: through [place] [facility] tube Branch daily. clopidogreL 2019- Yes [id number] 75mg Take 1 [facility] 75 mg 1-23 tablet ity of tablet 00:00: through [place] [facility] tube Branch daily. levETIRAcet 2019- Yes [id number] 750mg Take 7.5 [facility] am 100 1-23 mL through [facility] mg/mL oral 00:00: [facility] [place] solution 00 tube 2 [facility] (two) Branch times daily. amLODIPine 2019- Yes [id number] 10mg Take 1 [facility] 10 mg 1-23 tablet ity of tablet 00:00: through [place] [facility] tube Branch daily. atorvastati 2019- Yes [id number] 40mg Take 1 [facility] n 40 mg 1-23 tablet ity of tablet 00:00: through [facility] tube at Branch bedtime. famotidine 2019- Yes [id number] 20mg Take 1 [facility] 20 mg 1-23 tablet by ity of tablet 00:00: mouth 2 (two) Medical times Branch daily. lisinopriL 2019- Yes [id number] 40mg Take 1 [facility] 40 mg 1-23 tablet by [facility] of tablet 00:00: mouth daily. Medical Branch Polyethylen 2019- Yes [id number] 17g Take 1 [facility] e Glycol 1-23 Packet ity of 3350 17 00:00: through [place] gram powder 00 enteral Medic al tube 2 Branch (two) times daily. risperiDONE 2019-03 Yes [id number] .5mg Take 1 [facility] 0.5 mg 1-23 tablet ity of tablet 00:00: through [place] [facility] tube 2 Branch (two) times daily. aspirin 81 2019-03 Yes [id number] 81mg Take 1 [facility] mg chewable 1-23 tablet ity of tablet 00:00: through [place] [facility] tube Branch daily. clopidogreL 2020- Yes [id number] 75mg Take 1 [facility] 75 mg 1-23 tablet ity of tablet 00:00: through [place] [facility] tube Branch daily. levETIRAcet 2019- Yes [id number] 750mg Take 7.5 [facility] am 100 1-23 mL through [facility] of mg/mL oral 00:00: [facility] [place] solution 00 tube 2 [facility] (two) Branch times daily. amLODIPine 2019- Yes [id number] 10mg Take 1 [facility] 10 mg 1-23 tablet ity of tablet 00:00: through [place] [facility] tube Branch daily. atorvastati 2019- Yes [id number] 40mg Take 1 [facility] n 40 mg 1-23 tablet ity of tablet 00:00: through [place] [facility] tube at Branch bedtime. famotidine 2019- Yes [id number] 20mg Take 1 [facility] 20 mg 1-23 tablet by [facility]y of tablet 00:00: mouth 2 [place] (two) Medical times Branch daily. lisinopriL 2019- Yes [id number] 40mg Take 1 [facility] 40 mg 1-23 tablet by [facility] of tablet 00:00: mouth [place] 00 daily. Medical Branch Polyethylen 2019- Yes [id number] 17g Take 1 [facility] e Glycol 1-23 Packet ity of 3350 17 00:00: through [place] gram powder 00 enteral Medic al tube 2 Branch (two) times daily. risperiDONE 2019- Yes [id number] .5mg Take 1 [facility] 0.5 mg 1-23 tablet ity of tablet 00:00: through [place] [facility] tube 2 Branch (two) times daily. aspirin 81 2019- Yes [id number] 81mg Take 1 [facility] mg chewable 1-23 tablet ity of tablet 00:00: through [place] [facility] tube Branch daily. clopidogreL 2019- Yes [id number] 75mg Take 1 [facility] 75 mg 1-23 tablet ity of tablet 00:00: through [place] [facility] tube Branch daily. levETIRAcet 2019- Yes [id number] 750mg Take 7.5 [facility] am 100 1-23 mL through [facility] of mg/mL oral 00:00: [facility] [place] solution 00 tube 2 [facility] (two) Branch times daily. amLODIPine 2019- Yes [id number] 10mg Take 1 [facility] 10 mg 1-23 tablet ity of tablet 00:00: through [place] [facility] tube Branch daily. atorvastati 2019-03 Yes [id number] 40mg Take 1 [facility] n 40 mg 1-23 tablet ity of tablet 00:00: through [place] [facility] tube at Branch bedtime. famotidine 2019- Yes [id number] 20mg Take 1 [facility] 20 mg 1-23 tablet by [facility]y of tablet 00:00: mouth 2 [place] (two) Medical times Branch daily. lisinopriL 2019- Yes [id number] 40mg Take 1 [facility] 40 mg 1-23 tablet by [facility]y of tablet 00:00: mouth [place] 00 daily. Medical Branch Polyethylen 2019- Yes [id number] 17g Take 1 [facility] e Glycol 1-23 Packet ity of 3350 17 00:00: through [place] gram powder 00 enteral Medic al tube 2 Branch (two) times daily. risperiDONE 2019- Yes [id number] .5mg Take 1 [facility] 0.5 mg 1-23 tablet ity of tablet 00:00: through [place] [facility] tube 2 Branch (two) times daily. aspirin 81 2019- Yes [id number] 81mg Take 1 [facility] mg chewable 1-23 tablet ity of tablet 00:00: through [place] [facility] tube Branch daily. clopidogreL 2019- Yes [id number] 75mg Take 1 [facility] 75 mg 1-23 tablet ity of tablet 00:00: through [place] [facility] tube Branch daily. levETIRAcet 2019- Yes [id number] 750mg Take 7.5 [facility] am 100 1-23 mL through [facility] mg/mL oral 00:00: [facility] [place] solution 00 tube 2 [facility] (two) Branch times daily. amLODIPine 2019- Yes [id number] 10mg Take 1 [facility] 10 mg 1-23 tablet ity of tablet 00:00: through [place] 00 enteral Medical tube Branch daily. atorvastati 2019-03 Yes [id number] 40mg Take 1 [facility] n 40 mg 1-23 tablet ity of tablet 00:00: through [place] [facility] tube at Branch bedtime. famotidine 2019- Yes [id number] 20mg Take 1 [facility] 20 mg 1-23 tablet by [facility]y of tablet 00:00: mouth 2 (two) Medical times Branch daily. lisinopriL 2019- Yes [id number] 40mg Take 1 [facility] 40 mg 1-23 tablet by [facility]y of tablet 00:00: mouth [place] 00 daily. Medical Branch Polyethylen 2019- Yes [id number] 17g Take 1 [facility] e Glycol 1-23 Packet ity of 3350 17 00:00: through [place] gram powder 00 enteral Medic al tube 2 Branch (two) times daily. risperiDONE 2019- Yes [id number] .5mg Take 1 [facility] 0.5 mg 1-23 tablet ity of tablet 00:00: through [place] [facility] tube 2 Branch (two) times daily. aspirin 81 2019- Yes [id number] 81mg Take 1 [facility] mg chewable 1-23 tablet ity of tablet 00:00: through [place] [facility] tube Branch daily. clopidogreL 2019- Yes [id number] 75mg Take 1 [facility] 75 mg 1-23 tablet ity of tablet 00:00: through [place] [facility] tube Branch daily. levETIRAcet 2019- Yes [id number] 750mg Take 7.5 [facility] am 100 1-23 mL through [facility] mg/mL oral 00:00: [facility] [place] solution 00 tube 2 [facility] (two) Branch times daily. amLODIPine 2019- Yes [id number] 10mg Take 1 [facility] 10 mg 1-23 tablet ity of tablet 00:00: through [place] [facility] tube Branch daily. atorvastati 2019- Yes [id number] 40mg Take 1 [facility] n 40 mg 1-23 tablet ity of tablet 00:00: through [place] [facility] tube at Branch bedtime. famotidine 2019- Yes [id number] 20mg Take 1 [facility] 20 mg 1-23 tablet by ity of tablet 00:00: mouth 2 [place] (two) Medical times Branch daily. lisinopriL 2019- Yes [id number] 40mg Take 1 [facility] 40 mg 1-23 tablet by [facility] of tablet 00:00: mouth [place] 00 daily. Medical Branch Polyethylen 2019- Yes [id number] 17g Take 1 [facility] e Glycol 1-23 Packet ity of 3350 17 00:00: through [place] gram powder 00 enteral Medic al tube 2 Branch (two) times daily. risperiDONE 2019-03 Yes [id number] .5mg Take 1 [facility] 0.5 mg 1-23 tablet ity of tablet 00:00: through [place] ent[facility] tube 2 Branch (two) times daily. aspirin 81 2019-03 Yes [id number] 81mg Take 1 [facility] mg chewable 1-23 tablet ity of tablet 00:00: through [place] enteral Medical tube Branch daily. clopidogreL 2019-03 Yes [id number] 75mg Take 1 [facility] 75 mg 1-23 tablet ity of tablet 00:00: through [place] enteral [facility] tube Branch daily. levETIRAcet 2019-03 Yes [id number] 750mg Take 7.5 [facility] am 100 1-23 mL through [facility]y of mg/mL oral 00:00: [facility] solution 00 tube 2 Medical (two) Branch times daily. amLODIPine 2019-03 Yes [id number] 10mg Take 1 [facility] 10 mg 1-23 tablet ity of tablet 00:00: through [place] enteral Medical tube Branch daily. atorvastati 2019- Yes [id number] 40mg Take 1 [facility] n 40 mg 1-23 tablet ity of tablet 00:00: through [place] enteral Medical tube at Branch bedtime. famotidine 2019- Yes [id number] 20mg Take 1 [facility] 20 mg 1-23 tablet by [facility]y of tablet 00:00: mouth 2 [place] (two) Medical times Branch daily. lisinopriL 2019-03 Yes [id number] 40mg Take 1 [facility] 40 mg 1-23 tablet by [facility]y of tablet 00:00: mouth [place] daily. Medical Branch Polyethylen 2019- Yes [id number] 17g Take 1 [facility] e Glycol 1-23 Packet ity of 3350 17 00:00: through [place] gram powder 00 enteral Medic al tube 2 Branch (two) times daily. risperiDONE 2019- Yes [id number] .5mg Take 1 [facility] 0.5 mg 1-23 tablet ity of tablet 00:00: through [place] enteral [facility] tube 2 Branch (two) times daily. aspirin 81 2019-03 Yes [id number] 81mg Take 1 [facility] mg chewable 1-23 tablet ity of tablet 00:00: through [place] enteral Medical tube Branch daily. clopidogreL 2019-03 Yes [id number] 75mg Take 1 [facility] 75 mg 1-23 tablet ity of tablet 00:00: through [place] enteral [facility] tube Branch daily. levETIRAcet 2020- Yes [id number] 750mg Take 7.5 [facility] am 100 1-23 mL through [facility] of mg/mL oral 00:00: [facility] [place] solution 00 tube 2 Medical (two) Branch times daily. amLODIPine 2019- Yes [id number] 10mg Take 1 [facility] 10 mg 1-23 tablet ity of tablet 00:00: through [place] enteral Medical tube Branch daily. atorvastati 2020- Yes [id number] 40mg Take 1 [facility] n 40 mg 1-23 tablet ity of tablet 00:00: through [place] enteral Medical tube at Branch bedtime. famotidine 2019- Yes [id number] 20mg Take 1 [facility] 20 mg 1-23 tablet by [facility]y of tablet 00:00: mouth 2 [place] (two) Medical times Branch daily. lisinopriL 2019- Yes [id number] 40mg Take 1 [facility] 40 mg 1-23 tablet by [facility]y of tablet 00:00: mouth [place] 00 daily. Medical Branch Polyethylen 2019- Yes [id number] 17g Take 1 [facility] e Glycol 1-23 Packet ity of 3350 17 00:00: through [place] gram powder 00 enteral Medic al tube 2 Branch (two) times daily. risperiDONE 2019- Yes [id number] .5mg Take 1 [facility] 0.5 mg 1-23 tablet ity of tablet 00:00: through [place] enteral Medical tube 2 Branch (two) times daily. aspirin 81 2019- Yes [id number] 81mg Take 1 [facility] mg chewable 1-23 tablet ity of tablet 00:00: through [place] enteral [facility] tube Branch daily. clopidogreL 2020- Yes [id number] 75mg Take 1 [facility] 75 mg 1-23 tablet ity of tablet 00:00: through [place] enteral [facility] tube Branch daily. levETIRAcet 2019- Yes [id number] 750mg Take 7.5 [facility] am 100 1-23 mL through [facility] of mg/mL oral 00:00: [facility] [place] solution 00 tube 2 Medical (two) Branch times daily. amLODIPine 2019- Yes [id number] 10mg Take 1 [facility] 10 mg 1-23 tablet ity of tablet 00:00: through [place] enteral Medical tube Branch daily. atorvastati 2020- Yes [id number] 40mg Take 1 [facility] n 40 mg 1-23 tablet ity of tablet 00:00: through [place] enteral Medical tube at Branch bedtime. famotidine 2020- Yes [id number] 20mg Take 1 [facility] 20 mg 1-23 tablet by [facility]y of tablet 00:00: mouth 2 [place] (two) Medical times Branch daily. lisinopriL 2019-03 Yes [id number] 40mg Take 1 [facility] 40 mg 1-23 tablet by [facility]y of tablet 00:00: mouth [place] daily. Medical Branch Polyethylen 2019- Yes [id number] 17g Take 1 [facility] e Glycol 1-23 Packet ity of 3350 17 00:00: through [place] gram powder 00 enteral Medic al tube 2 Branch (two) times daily. risperiDONE 2019- Yes [id number] .5mg Take 1 [facility] 0.5 mg 1-23 tablet ity of tablet 00:00: through [place] enteral Medical tube 2 Branch (two) times daily. aspirin 81 2019- Yes [id number] 81mg Take 1 [facility] mg chewable 1-23 tablet ity of tablet 00:00: through [place] enteral [facility] tube Branch daily. clopidogreL 2020- Yes [id number] 75mg Take 1 [facility] 75 mg 1-23 tablet ity of tablet 00:00: through [place] enteral [facility] tube Branch daily. levETIRAcet 2019- Yes [id number] 750mg Take 7.5 [facility] am 100 1-23 mL through [facility] of mg/mL oral 00:00: [facility] [place] solution 00 tube 2 Medical (two) Branch times daily. amLODIPine 2019- Yes [id number] 10mg Take 1 [facility] 10 mg 1-23 tablet ity of tablet 00:00: through [place] enteral Medical tube Branch daily. atorvastati 2019- Yes [id number] 40mg Take 1 [facility] n 40 mg 1-23 tablet ity of tablet 00:00: through [place] enteral Medical tube at Branch bedtime. famotidine 2019- Yes [id number] 20mg Take 1 [facility] 20 mg 1-23 tablet by ity of tablet 00:00: mouth 2 [place] (two) Medical times Branch daily. lisinopriL 2019- Yes [id number] 40mg Take 1 [facility] 40 mg 1-23 tablet by [facility]y of tablet 00:00: mouth 00 daily. Medical Branch Polyethylen 2019-03 Yes [id number] 17g Take 1 [facility] e Glycol 1-23 Packet ity of 3350 17 00:00: through [place] 00 [facility] al tube 2 Branch (two) times daily. risperiDONE 2019-03 Yes [id number] .5mg Take 1 [facility] 0.5 mg 1-23 tablet ity of tablet 00:00: through [facility] tube 2 Branch (two) times daily. aspirin 81 2019-03 Yes [id number] 81mg Take 1 [facility] mg chewable 1-23 tablet ity of tablet 00:00: through [facility] tube Branch daily. clopidogreL 2019-03 Yes [id number] 75mg Take 1 [facility] 75 mg 1-23 tablet ity of tablet 00:00: through [place] enteral Medical tube Branch daily. levETIRAcet 2019-03 Yes [id number] 750mg Take 7.5 [facility] am 100 1-23 mL through [facility] of mg/mL oral 00:00: [facility] solution 00 tube 2 Medical (two) Branch times daily. amLODIPine 2019-03 Yes [id number] 10mg Take 1 [facility] 10 mg 1-23 tablet ity of tablet 00:00: through enteral Medical tube Branch daily. atorvastati 2019- Yes [id number] 40mg Take 1 [facility] n 40 mg 1-23 tablet ity of tablet 00:00: through [facility]eral Medical tube at Branch bedtime. famotidine 2019-03 Yes [id number] 20mg Take 1 [facility] 20 mg 1-23 tablet by ity of tablet 00:00: mouth 2 (two) Medical times Branch daily. lisinopriL 2019-03 Yes [id number] 40mg Take 1 [facility] 40 mg 1-23 tablet by ity of tablet 00:00: mouth daily. Medical Branch Polyethylen 2019-03 Yes [id number] 17g Take 1 [facility] e Glycol 1-23 Packet ity of 3350 17 00:00: through [place] gram powder 00 enteral Medic al tube 2 Branch (two) times daily. risperiDONE 2019-03 Yes [id number] .5mg Take 1 [facility] 0.5 mg 1-23 tablet ity of tablet 00:00: through [facility]eral [facility] tube 2 Branch (two) times daily. aspirin 81 2019-03 Yes [id number] 81mg Take 1 [facility] mg chewable 1-23 tablet ity of tablet 00:00: through [place] 00 enteral Medical tube Branch daily. clopidogreL 2019- Yes [id number] 75mg Take 1 [facility] 75 mg 1-23 tablet ity of tablet 00:00: through [place] 00 enteral Medical tube Branch daily. levETIRAcet 2019- Yes [id number] 750mg Take 7.5 [facility] am 100 1-23 mL through [facility] of mg/mL oral 00:00: [facility] [place] solution 00 tube 2 Medical (two) Branch times daily. amLODIPine 2019- Yes [id number] 10mg Take 1 [facility] 10 mg 1-23 tablet ity of tablet 00:00: through [place] 00 enteral Medical tube Branch daily. atorvastati 2019- Yes [id number] 40mg Take 1 [facility] n 40 mg 1-23 tablet ity of tablet 00:00: through [place] 00 enteral Medical tube at Branch bedtime. lisinopriL 2019-03 Yes Essential 40mg Take 1 [facility] 40 mg 1-23 hypertensio tablet by it y of tablet 00:00: n mouth [place] 00 daily. Medical Branch famotidine 2019-03 Yes [id number] 20mg Take 1 [facility] 20 mg 1-23 tablet by ity of tablet 00:00: mouth 2 [place] 00 (two) Medical times Branch daily. lisinopriL 2019- Yes [id number] 40mg Take 1 [facility] 40 mg 1-23 tablet by ity of tablet 00:00: mouth [place] 00 daily. Medical Branch Polyethylen 2019- Yes [id number] 17g Take 1 [facility] e Glycol 1-23 Packet ity of 3350 17 00:00: through [place] gram powder 00 enteral Medic al tube 2 Branch (two) times daily. risperiDONE 2019- Yes [id number] .5mg Take 1 [facility] 0.5 mg 1-23 tablet ity of tablet 00:00: through [place] 00 enteral Medical tube 2 Branch (two) times daily. aspirin 81 2019-03 Yes [id number] 81mg Take 1 [facility] mg chewable 1-23 tablet ity of tablet 00:00: through [place] 00 enteral Medical tube Branch daily. clopidogreL 2019- Yes [id number] 75mg Take 1 [facility] 75 mg 1-23 tablet ity of tablet 00:00: through [place] enteral Medical tube Branch daily. levETIRAcet 2020- Yes [id number] 750mg Take 7.5 [facility] am 100 1-23 mL through [facility]y of mg/mL oral 00:00: [facility] [place] solution 00 tube 2 Medical (two) Branch times daily. amLODIPine 2019- Yes [id number] 10mg Take 1 [facility] 10 mg 1-23 tablet ity of tablet 00:00: through [place] enteral Medical tube Branch daily. atorvastati 2019-03 Yes [id number] 40mg Take 1 [facility] n 40 mg 1-23 tablet ity of tablet 00:00: through [place] enteral Medical tube at Branch bedtime. famotidine 2019- Yes [id number] 20mg Take 1 [facility] 20 mg 1-23 tablet by ity of tablet 00:00: mouth 2 [place] [address] (two) Medical times Branch daily. lisinopriL 2019-03 Yes [id number] 40mg Take 1 [facility] n[facility] 40 mg 1-23 tablet by ity of tablet 00:00: mouth [place] 00 daily. Medical Branch Polyethylen 2019- Yes [id number] 17g Take 1 [facility] e Glycol 1-23 Packet ity of 3350 17 00:00: through [place] gram powder 00 enteral Medic al tube 2 Branch (two) times daily. risperiDONE 2019- Yes [id number] .5mg Take 1 [facility] 0.5 mg 1-23 tablet ity of tablet 00:00: through [place] enteral Medical tube 2 Branch (two) times daily. aspirin 81 2019-03 Yes [id number] 81mg Take 1 [facility] mg chewable 1-23 tablet ity of tablet 00:00: through [place] enteral Medical tube Branch daily. clopidogreL 2019- Yes [id number] 75mg Take 1 [facility] 75 mg 1-23 tablet ity of tablet 00:00: through [place] enteral Medical tube Branch daily. levETIRAcet 2019- Yes [id number] 750mg Take 7.5 [facility] am 100 1-23 mL through ity of mg/mL oral 00:00: [facility] [place] solution 00 tube 2 Medical (two) Branch times daily. amLODIPine 2019-03 Yes [id number] 10mg Take 1 [facility] 10 mg 1-23 tablet ity of tablet 00:00: through [place] enteral Medical tube Branch daily. atorvastati 2019-03 Yes [id number] 40mg Take 1 [facility] n 40 mg 1-23 tablet ity of tablet 00:00: through [place] enteral Medical tube at Branch bedtime. famotidine 2020- Yes [id number] 20mg Take 1 [facility] 20 mg 1-23 tablet by ity of tablet 00:00: mouth 2 (two) Medical times Branch daily. lisinopriL 2019- Yes [id number] 40mg Take 1 [facility] 40 mg 1-23 tablet by ity of tablet 00:00: mouth daily. Medical Branch Polyethylen 2020- Yes [id number] 17g Take 1 [facility] e Glycol 1-23 Packet ity of 3350 17 00:00: through [place] gram powder 00 enteral Medic al tube 2 Branch (two) times daily. risperiDONE 2019- Yes [id number] .5mg Take 1 [facility] 0.5 mg 1-23 tablet ity of tablet 00:00: through [place] enteral Medical tube 2 Branch (two) times daily. aspirin 81 2019- Yes [id number] 81mg Take 1 [facility] mg chewable 1-23 tablet ity of tablet 00:00: through [place] enteral Medical tube Branch daily. clopidogreL 2020- Yes [id number] 75mg Take 1 [facility] 75 mg 1-23 tablet ity of tablet 00:00: through [place] enteral Medical tube Branch daily. levETIRAcet 2019- Yes [id number] 750mg Take 7.5 [facility] am 100 1-23 mL through [facility] of mg/mL oral 00:00: [facility] solution 00 tube 2 Medical (two) Branch times daily. amLODIPine 2019- Yes [id number] 10mg Take 1 [facility] n[facility] 10 mg 1-23 tablet ity of tablet 00:00: through [place] enteral Medical tube Branch daily. atorvastati 2019- Yes [id number] 40mg Take 1 [facility] n 40 mg 1-23 tablet ity of tablet 00:00: through [place] enteral Medical tube at Branch bedtime. famotidine 2019- Yes [id number] 20mg Take 1 [facility] 20 mg 1-23 tablet by ity of tablet 00:00: mouth 2 [place] (two) Medical times Branch daily. lisinopriL 2019- Yes [id number] 40mg Take 1 [facility] n[facility] 40 mg 1-23 tablet by ity of tablet 00:00: mouth daily. Medical Branch Polyethylen 2019- Yes [id number] 17g Take 1 [facility] e Glycol 1-23 Packet ity of 3350 17 00:00: through [place] gram powder 00 enteral Medic al tube 2 Branch (two) times daily. risperiDONE 2019-03 Yes [id number] .5mg Take 1 [facility] 0.5 mg 1-23 tablet ity of tablet 00:00: through [place] enteral Medical tube 2 Branch (two) times daily. aspirin 81 2019-03 Yes [id number] 81mg Take 1 [facility] mg chewable 1-23 tablet ity of tablet 00:00: through [place] enteral Medical tube Branch daily. clopidogreL 2019-03 Yes [id number] 75mg Take 1 [facility] 75 mg 1-23 tablet ity of tablet 00:00: through [place] enteral Medical tube Branch daily. levETIRAcet 2019-03 Yes [id number] 750mg Take 7.5 [facility] am 100 1-23 mL through ity of mg/mL oral 00:00: [facility] solution 00 tube 2 Medical (two) Branch times daily. amLODIPine 2019-03 Yes [id number] 10mg Take 1 [facility] n[facility] 10 mg 1-23 tablet ity of tablet 00:00: through [place] enteral Medical tube Branch daily. atorvastati 2019- Yes [id number] 40mg Take 1 [facility] n 40 mg 1-23 tablet ity of tablet 00:00: through [place] enteral Medical tube at Branch bedtime. famotidine 2019-03 Yes [id number] 20mg Take 1 [facility] 20 mg 1-23 tablet by ity of tablet 00:00: mouth 2 (two) Medical times Branch daily. lisinopriL 2019-03 Yes [id number] 40mg Take 1 [facility] 40 mg 1-23 tablet by ity of tablet 00:00: mouth 00 daily. Medical Branch Polyethylen 2019-03 Yes [id number] 17g Take 1 [facility] e Glycol 1-23 Packet ity of 3350 17 00:00: through [place] gram powder 00 enteral Medic al tube 2 Branch (two) times daily. risperiDONE 2019-03 Yes [id number] .5mg Take 1 [facility] 0.5 mg 1-23 tablet ity of tablet 00:00: through [place] 00 enteral Medical tube 2 Branch (two) times daily. aspirin 81 2019-03 Yes [id number] 81mg Take 1 [facility] mg chewable 1-23 tablet ity of tablet 00:00: through [place] enteral Medical tube Branch daily. clopidogreL 2020- Yes [id number] 75mg Take 1 [facility] 75 mg 1-23 tablet ity of tablet 00:00: through [place] enteral Medical tube Branch daily. levETIRAcet 2020- Yes [id number] 750mg Take 7.5 [facility] am 100 1-23 mL through ity of mg/mL oral 00:00: [facility] solution 00 tube 2 Medical (two) Branch times daily. amLODIPine 2020- Yes [id number] 10mg Take 1 [facility] nivers 10 mg 1-23 tablet ity of tablet 00:00: through [place] enteral Medical tube Branch daily. atorvastati 2020- Yes [id number] 40mg Take 1 [facility] n 40 mg 1-23 tablet ity of tablet 00:00: through [place] enteral Medical tube at Branch bedtime. famotidine 2020- Yes [id number] 20mg Take 1 [facility] 20 mg 1-23 tablet by ity of tablet 00:00: mouth 2 [place] (two) Medical times Branch daily. lisinopriL 2020- Yes [id number] 40mg Take 1 [facility] 40 mg 1-23 tablet by ity of tablet 00:00: mouth 00 daily. Medical Branch Polyethylen 2020- Yes [id number] 17g Take 1 [facility] e Glycol 1-23 Packet ity of 3350 17 00:00: through [place] gram powder 00 enteral Medic al tube 2 Branch (two) times daily. risperiDONE 2019- Yes [id number] .5mg Take 1 [facility] 0.5 mg 1-23 tablet ity of tablet 00:00: through [place] enteral Medical tube 2 Branch (two) times daily. aspirin 81 2020- Yes [id number] 81mg Take 1 [facility] mg chewable 1-23 tablet ity of tablet 00:00: through [place] enteral Medical tube Branch daily. clopidogreL 2020- Yes [id number] 75mg Take 1 [facility] 75 mg 1-23 tablet ity of tablet 00:00: through [place] enteral Medical tube Branch daily. levETIRAcet 2019- Yes [id number] 750mg Take 7.5 [facility] am 100 1-23 mL through ity of mg/mL oral 00:00: [facility] solution 00 tube 2 Medical (two) Branch times daily. amLODIPine 2019-1 Yes [id number] 10mg Take 1 [facility] nivers 10 mg 1-23 tablet ity of tablet 00:00: through [place] enteral Medical tube Branch daily. atorvastati 2019- Yes [id number] 40mg Take 1 [facility] n 40 mg 1-23 tablet ity of tablet 00:00: through [place] enteral Medical tube at Branch bedtime. famotidine 2019- Yes [id number] 20mg Take 1 [facility] 20 mg 1-23 tablet by ity of tablet 00:00: mouth 2 (two) Medical times Branch daily. lisinopriL 2019- Yes [id number] 40mg Take 1 [facility] nivers 40 mg 1-23 tablet by ity of tablet 00:00: mouth [place] 00 daily. Medical Branch Polyethylen 2019- Yes [id number] 17g Take 1 [facility] e Glycol 1-23 Packet ity of 3350 17 00:00: through [place] gram powder 00 enteral Medic al tube 2 Branch (two) times daily. risperiDONE 2019- Yes [id number] .5mg Take 1 [facility] 0.5 mg 1-23 tablet ity of tablet 00:00: through [place] enteral Medical tube 2 Branch (two) times daily. aspirin 81 2019- Yes [id number] 81mg Take 1 [facility] mg chewable 1-23 tablet ity of tablet 00:00: through [place] enteral Medical tube Branch daily. clopidogreL 2019- Yes [id number] 75mg Take 1 [facility] 75 mg 1-23 tablet ity of tablet 00:00: through [place] enteral Medical tube Branch daily. levETIRAcet 2019- Yes [id number] 750mg Take 7.5 [facility] am 100 1-23 mL through [facility]y of mg/mL oral 00:00: [facility] solution 00 tube 2 Medical (two) Branch times daily. amLODIPine 2019- Yes [id number] 10mg Take 1 [facility] nivers 10 mg 1-23 tablet ity of tablet 00:00: through [place] enteral Medical tube Branch daily. atorvastati 2019- Yes [id number] 40mg Take 1 [facility] n 40 mg 1-23 tablet ity of tablet 00:00: through [place] enteral Medical tube at Branch bedtime. famotidine 2019- Yes [id number] 20mg Take 1 [facility] 20 mg 1-23 tablet by ity of tablet 00:00: mouth 2 [place] (two) Medical times Branch daily. lisinopriL 2019- Yes [id number] 40mg Take 1 [facility] nivers 40 mg 1-23 tablet by ity of tablet 00:00: mouth [place] 00 daily. Medical Branch Polyethylen 2019- Yes [id number] 17g Take 1 [facility] e Glycol 1-23 Packet ity of 3350 17 00:00: through [place] gram powder 00 enteral Medic al tube 2 Branch (two) times daily. risperiDONE 2019-03 Yes [id number] .5mg Take 1 [facility] 0.5 mg 1-23 tablet ity of tablet 00:00: through [place] 00 enteral Medical tube 2 Branch (two) times daily. aspirin 81 2019- Yes [id number] 81mg Take 1 [facility] mg chewable 1-23 tablet ity of tablet 00:00: through [place] enteral Medical tube Branch daily. clopidogreL 2019- Yes [id number] 75mg Take 1 [facility] 75 mg 1-23 tablet ity of tablet 00:00: through [place] enteral Medical tube Branch daily. levETIRAcet 2019-03 Yes [id number] 750mg Take 7.5 [facility] am 100 1-23 mL through [facility] of mg/mL oral 00:00: [facility] solution 00 tube 2 Medical (two) Branch times daily. amLODIPine 2019- Yes [id number] 10mg Take 1 [facility] nivers 10 mg 1-23 tablet ity of tablet 00:00: through [place] enteral Medical tube Branch daily. atorvastati 2019- Yes [id number] 40mg Take 1 [facility] n 40 mg 1-23 tablet ity of tablet 00:00: through [place] enteral Medical tube at Branch bedtime. famotidine 2019-03 Yes [id number] 20mg Take 1 [facility] 20 mg 1-23 tablet by ity of tablet 00:00: mouth 2 (two) Medical times Branch daily. lisinopriL 2019- Yes [id number] 40mg Take 1 [facility] n[facility] 40 mg 1-23 tablet by ity of tablet 00:00: mouth [place] 00 daily. Medical Branch Polyethylen 2019-03 Yes [id number] 17g Take 1 [facility] e Glycol 1-23 Packet ity of 3350 17 00:00: through [place] gram powder 00 enteral Medic al tube 2 Branch (two) times daily. risperiDONE 2019-03 Yes [id number] .5mg Take 1 [facility] 0.5 mg 1-23 tablet ity of tablet 00:00: through [place] enteral Medical tube 2 Branch (two) times daily. aspirin 81 2019-03 Yes [id number] 81mg Take 1 [facility] mg chewable 1-23 tablet ity of tablet 00:00: through [place] enteral Medical tube Branch daily. clopidogreL 2019- Yes [id number] 75mg Take 1 [facility] 75 mg 1-23 tablet ity of tablet 00:00: through [place] enteral Medical tube Branch daily. levETIRAcet 2019-03 Yes [id number] 750mg Take 7.5 [facility] am 100 1-23 mL through [facility] of mg/mL oral 00:00: [place] solution 00 tube 2 Medical (two) Branch times daily. amLODIPine 2019- Yes [id number] 10mg Take 1 [facility] 10 mg 1-23 tablet ity of tablet 00:00: through [place] enteral Medical tube Branch daily. atorvastati 2019- Yes [id number] 40mg Take 1 [facility] n 40 mg 1-23 tablet ity of tablet 00:00: through [place] enteral Medical tube at Branch bedtime. famotidine 2019-03 Yes [id number] 20mg Take 1 [facility] 20 mg 1-23 tablet by ity of tablet 00:00: mouth 2 [place] (two) Medical times Branch daily. lisinopriL 2019- Yes [id number] 40mg Take 1 [facility] 40 mg 1-23 tablet by ity of tablet 00:00: mouth [place] 00 daily. Medical Branch Polyethylen 2019- Yes [id number] 17g Take 1 [facility] e Glycol 1-23 Packet ity of 3350 17 00:00: through [place] gram powder 00 enteral Medic al tube 2 Branch (two) times daily. risperiDONE 2019- Yes [id number] .5mg Take 1 [facility] 0.5 mg 1-23 tablet ity of tablet 00:00: through [place] enteral Medical tube 2 Branch (two) times daily. aspirin 81 2019-03 Yes [id number] 81mg Take 1 [facility] mg chewable 1-23 tablet ity of tablet 00:00: through [place] 00 enteral Medical tube Branch daily. clopidogreL 2019-03 Yes [id number] 75mg Take 1 [facility] 75 mg 1-23 tablet ity of tablet 00:00: through [place] enteral Medical tube Branch daily. levETIRAcet 2019- Yes [id number] 750mg Take 7.5 [facility] am 100 1-23 mL through [facility] of mg/mL oral 00:00: [place] solution 00 tube 2 Medical (two) Branch times daily. amLODIPine 2019- Yes [id number] 10mg Take 1 [facility] n[facility] 10 mg 1-23 tablet ity of tablet 00:00: through [place] enteral Medical tube Branch daily. atorvastati 2019- Yes [id number] 40mg Take 1 [facility] n 40 mg 1-23 tablet ity of tablet 00:00: through [place] enteral Medical tube at Branch bedtime. famotidine 2019- Yes [id number] 20mg Take 1 [facility] 20 mg 1-23 tablet by ity of tablet 00:00: mouth 2 [place] (two) Medical times Branch daily. lisinopriL 2019- Yes [id number] 40mg Take 1 [facility] 40 mg 1-23 tablet by ity of tablet 00:00: mouth [place] 00 daily. Medical Branch Polyethylen 2019- Yes [id number] 17g Take 1 [facility] e Glycol 1-23 Packet ity of 3350 17 00:00: through [place] gram powder 00 enteral Medic al tube 2 Branch (two) times daily. risperiDONE 2019- Yes [id number] .5mg Take 1 [facility] 0.5 mg 1-23 tablet ity of tablet 00:00: through [place] enteral Medical tube 2 Branch (two) times daily. aspirin 81 2019- Yes [id number] 81mg Take 1 [facility] mg chewable 1-23 tablet ity of tablet 00:00: through [place] enteral Medical tube Branch daily. clopidogreL 2019- Yes [id number] 75mg Take 1 [facility] 75 mg 1-23 tablet ity of tablet 00:00: through [place] enteral Medical tube Branch daily. levETIRAcet 2019- Yes [id number] 750mg Take 7.5 [facility] am 100 1-23 mL through [facility] of mg/mL oral 00:00: [facility] solution 00 tube 2 Medical (two) Branch times daily. amLODIPine 2019- Yes [id number] 10mg Take 1 [facility] nivers 10 mg 1-23 tablet ity of tablet 00:00: through [place] 00 enteral Medical tube Branch daily. atorvastati 2019-03 Yes [id number] 40mg Take 1 [facility] n 40 mg 1-23 tablet ity of tablet 00:00: through enteral Medical tube at Branch bedtime. famotidine 2020- Yes [id number] 20mg Take 1 [facility] 20 mg 1-23 tablet by ity of tablet 00:00: mouth 2 (two) Medical times Branch daily. Polyethylen 2019-03 Yes Constipatio 17g Take 1 [facility] e Glycol 1-23 n, Packet ity of 3350 17 00:00: unspecified through [place] gram powder 00 constipatio enteral Medical n type tube 2 Branch (two) times daily. lisinopriL 2019- Yes [id number] 40mg Take 1 [facility] nivers 40 mg 1-23 tablet by ity of tablet 00:00: mouth 00 daily. Medical Branch Polyethylen 2019- Yes [id number] 17g Take 1 [facility] e Glycol 1-23 Packet ity of 3350 17 00:00: through [place] gram powder enteral Medic al tube 2 Branch (two) times daily. risperiDONE 2019- Yes [id number] .5mg Take 1 [facility] 0.5 mg 1-23 tablet ity of tablet 00:00: through [place] enteral Medical tube 2 Branch (two) times daily. aspirin 81 2019- Yes [id number] 81mg Take 1 [facility] mg chewable 1-23 tablet ity of tablet 00:00: through [place] [facility] daily. clopidogreL 2020- Yes [id number] 75mg Take 1 [facility] 75 mg 1-23 tablet [facility] of tablet 00:00: through [place] [facility] daily. levETIRAcet 2019- Yes [id number] 750mg Take 7.5 [facility] am 100 1-23 mL through [facility] mg/mL oral 00:00: [facility] [place] solution 00 tube 2 [facility] (two) Branch times daily. amLODIPine 2019- Yes [id number] 10mg Take 1 [facility] 10 mg 1-23 tablet it[facility] of tablet 00:00: through [place] [facility] daily. atorvastati 2020- Yes [id number] 40mg Take 1 [facility] n 40 mg 1-23 tablet [facility] of tablet 00:00: through [place] [facility] tube at Branch bedtime. famotidine 2019- Yes [id number] 20mg Take 1 [facility] 20 mg 1-23 tablet by [facility] of tablet 00:00: mouth 2 (two) Medical times Branch daily. lisinopriL 2019- Yes [id number] 40mg Take 1 [facility] 40 mg 1-23 tablet by [facility] of tablet 00:00: mouth 00 daily. Medical Branch Polyethylen 2020- Yes [id number] 17g Take 1 [facility] e Glycol 1-23 Packet ity of 3350 17 00:00: through gram powder 00 [facility] tube 2 Branch (two) times daily. risperiDONE 2019-03 Yes [id number] .5mg Take 1 [facility] 0.5 mg 1-23 tablet [facility] of tablet 00:00: through [facility] tube 2 Branch (two) times daily. aspirin 81 2019- Yes [id number] 81mg Take 1 [facility] mg chewable 1-23 tablet ity of tablet 00:00: through [place] [facility] tube [facility] daily. clopidogreL 2019- Yes [id number] 75mg Take 1 [facility] 75 mg 1-23 tablet [facility] of tablet 00:00: through [place] [facility] tube [facility] daily. levETIRAcet 2019- Yes [id number] 750mg Take 7.5 [facility] am 100 1-23 mL through [facility] mg/mL oral 00:00: [facility] [place] solution 00 tube 2 [facility] (two) Branch times daily. amLODIPine 2019- Yes [id number] 10mg Take 1 [facility] 10 mg 1-23 tablet it[facility] of tablet 00:00: through [place] [facility] tube [facility] daily. atorvastati 2019- Yes [id number] 40mg Take 1 [facility] n 40 mg 1-23 tablet [facility] of tablet 00:00: through [facility] tube at Branch bedtime. famotidine 2019- Yes [id number] 20mg Take 1 [facility] 20 mg 1-23 tablet by [facility] of tablet 00:00: mouth 2 (two) Medical times Branch daily. lisinopriL 2019- Yes [id number] 40mg Take 1 [facility] 40 mg 1-23 tablet by [facility] of tablet 00:00: mouth 00 daily. Medical Branch Polyethylen 2019- Yes [id number] 17g Take 1 [facility] e Glycol 1-23 Packet ity of 3350 17 00:00: through [place] gram powder 00 [facility] tube 2 Branch (two) times daily. risperiDONE 2019- Yes [id number] .5mg Take 1 [facility] 0.5 mg 1-23 tablet ity of tablet 00:00: through [place] [facility] tube 2 Branch (two) times daily. aspirin 81 2019-03 Yes [id number] 81mg Take 1 [facility] mg chewable 1-23 tablet ity of tablet 00:00: through [place] [facility] daily. clopidogreL 2019- Yes [id number] 75mg Take 1 [facility] 75 mg 1-23 tablet [facility] of tablet 00:00: through [place] [facility] daily. levETIRAcet 2019- Yes [id number] 750mg Take 7.5 [facility] am 100 1-23 mL through [facility] of mg/mL oral 00:00: [facility] [place] solution 00 tube 2 [facility] (two) Branch times daily. amLODIPine 2019- Yes [id number] 10mg Take 1 [facility] 10 mg 1-23 tablet ity of tablet 00:00: through [place] [facility] tube [facility] daily. atorvastati 2019- Yes [id number] 40mg Take 1 [facility] n 40 mg 1-23 tablet ity of tablet 00:00: through [place] [facility] tube at Branch bedtime. famotidine 2019- Yes [id number] 20mg Take 1 [facility] 20 mg 1-23 tablet by [facility] of tablet 00:00: mouth 2 [place] (two) Medical times Branch daily. lisinopriL 2019- Yes [id number] 40mg Take 1 [facility] 40 mg 1-23 tablet by [facility] of tablet 00:00: mouth [place] 00 daily. Medical Branch Polyethylen 2019- Yes [id number] 17g Take 1 [facility] e Glycol 1-23 Packet ity of 3350 17 00:00: through [place] gram powder 00 [facility] al tube 2 Branch (two) times daily. risperiDONE 2019- Yes [id number] .5mg Take 1 [facility] 0.5 mg 1-23 tablet ity of tablet 00:00: through [place] [facility] tube 2 Branch (two) times daily. aspirin 81 2019- Yes [id number] 81mg Take 1 [facility] mg chewable 1-23 tablet ity of tablet 00:00: through [place] [facility] daily. clopidogreL 2019- Yes [id number] 75mg Take 1 [facility] 75 mg 1-23 tablet ity of tablet 00:00: through [place] [facility] daily. levETIRAcet 2019- Yes [id number] 750mg Take 7.5 [facility] am 100 1-23 mL through [facility] of mg/mL oral 00:00: [facility] [place] solution 00 tube 2 [facility] (two) Branch times daily. amLODIPine 2019- Yes [id number] 10mg Take 1 [facility] 10 mg 1-23 tablet ity of tablet 00:00: through [place] [facility] daily. atorvastati 2019-03 Yes [id number] 40mg Take 1 [facility] n 40 mg 1-23 tablet ity of tablet 00:00: through [place] [facility] tube at Branch bedtime. famotidine 2019- Yes [id number] 20mg Take 1 [facility] 20 mg 1-23 tablet by [facility] of tablet 00:00: mouth 2 [place] (two) Medical times Branch daily. lisinopriL 2019- Yes [id number] 40mg Take 1 [facility] 40 mg 1-23 tablet by [facility] of tablet 00:00: mouth [place] 00 daily. Medical Branch Polyethylen 2019- Yes [id number] 17g Take 1 [facility] e Glycol 1-23 Packet ity of 3350 17 00:00: through [place] gram powder 00 [facility] tube 2 Branch (two) times daily. risperiDONE 2019- Yes [id number] .5mg Take 1 [facility] 0.5 mg 1-23 tablet ity of tablet 00:00: through [place] [facility] tube 2 Branch (two) times daily. aspirin 81 2019- Yes [id number] 81mg Take 1 [facility] mg chewable 1-23 tablet ity of tablet 00:00: through [place] [facility] tube [facility] daily. clopidogreL 2019- Yes [id number] 75mg Take 1 [facility] 75 mg 1-23 tablet it[facility] of tablet 00:00: through [place] [facility] tube [facility] daily. levETIRAcet 2019- Yes [id number] 750mg Take 7.5 [facility] am 100 1-23 mL through [facility] of mg/mL oral 00:00: [facility] [place] solution 00 tube 2 [facility] (two) Branch times daily. amLODIPine 2019- Yes [id number] 10mg Take 1 [facility] 10 mg 1-23 tablet ity of tablet 00:00: through [place] [facility] daily. atorvastati 2019- Yes [id number] 40mg Take 1 [facility] n 40 mg 1-23 tablet ity of tablet 00:00: through [place] [facility] tube at Branch bedtime. famotidine 2019- Yes [id number] 20mg Take 1 [facility] 20 mg 1-23 tablet by [facility]y of tablet 00:00: mouth 2 (two) Medical times Branch daily. lisinopriL 2019- Yes [id number] 40mg Take 1 [facility] 40 mg 1-23 tablet by ity of tablet 00:00: mouth 00 daily. Medical Branch Polyethylen 2020- Yes [id number] 17g Take 1 [facility] e Glycol 1-23 Packet ity of 3350 17 00:00: through [place] gram powder 00 [facility] tube 2 Branch (two) times daily. risperiDONE 2019- Yes [id number] .5mg Take 1 [facility] 0.5 mg 1-23 tablet ity of tablet 00:00: through [place] [facility] tube 2 Branch (two) times daily. aspirin 81 2019- Yes [id number] 81mg Take 1 [facility] mg chewable 1-23 tablet ity of tablet 00:00: through [place] [facility] daily. clopidogreL 2019- Yes [id number] 75mg Take 1 [facility] 75 mg 1-23 tablet ity of tablet 00:00: through [place] [facility] tube [facility] daily. levETIRAcet 2019- Yes [id number] 750mg Take 7.5 [facility] am 100 1-23 mL through [facility] mg/mL oral 00:00: [facility] [place] solution 00 tube 2 [facility] (two) Branch times daily. amLODIPine 2019- Yes [id number] 10mg Take 1 [facility] 10 mg 1-23 tablet ity of tablet 00:00: through [place] [facility] tube [facility] daily. atorvastati 2019- Yes [id number] 40mg Take 1 [facility] n 40 mg 1-23 tablet ity of tablet 00:00: through [place] [facility] tube at Branch bedtime. famotidine 2019- Yes [id number] 20mg Take 1 [facility] 20 mg 1-23 tablet by [facility]y of tablet 00:00: mouth 2 (two) Medical times Branch daily. lisinopriL 2019- Yes [id number] 40mg Take 1 [facility] 40 mg 1-23 tablet by [facility] of tablet 00:00: mouth 00 daily. Medical Branch Polyethylen 2019- Yes [id number] 17g Take 1 [facility] e Glycol 1-23 Packet ity of 3350 17 00:00: through [place] gram powder 00 [facility] tube 2 Branch (two) times daily. risperiDONE 2019- Yes [id number] .5mg Take 1 [facility] 0.5 mg 1-23 tablet ity of tablet 00:00: through [place] [facility] tube 2 Branch (two) times daily. aspirin 81 2019-03 Yes [id number] 81mg Take 1 [facility] mg chewable 1-23 tablet ity of tablet 00:00: through [place] [facility] tube [facility] daily. clopidogreL 2019-03 Yes [id number] 75mg Take 1 [facility] 75 mg 1-23 tablet ity of tablet 00:00: through [place] [facility] tube [facility] daily. levETIRAcet 2019- Yes [id number] 750mg Take 7.5 [facility] am 100 1-23 mL through [facility] of mg/mL oral 00:00: [facility] [place] solution 00 tube 2 [facility] (two) Branch times daily. amLODIPine 2019-03 Yes [id number] 10mg Take 1 [facility] 10 mg 1-23 tablet ity of tablet 00:00: through [place] [facility] tube [facility] daily. atorvastati 2019- Yes [id number] 40mg Take 1 [facility] n 40 mg 1-23 tablet ity of tablet 00:00: through [place] [facility] tube at Branch bedtime. famotidine 2019- Yes [id number] 20mg Take 1 [facility] 20 mg 1-23 tablet by [facility] of tablet 00:00: mouth 2 [place] (two) Medical times Branch daily. lisinopriL 2019- Yes [id number] 40mg Take 1 [facility] 40 mg 1-23 tablet by ity of tablet 00:00: mouth [place] 00 daily. Medical Branch Polyethylen 2019- Yes [id number] 17g Take 1 [facility] e Glycol 1-23 Packet ity of 3350 17 00:00: through [place] gram powder 00 [facility] tube 2 Branch (two) times daily. risperiDONE 2019- Yes [id number] .5mg Take 1 [facility] 0.5 mg 1-23 tablet ity of tablet 00:00: through [place] [facility] tube 2 Branch (two) times daily. aspirin 81 2019-03 Yes [id number] 81mg Take 1 [facility] mg chewable 1-23 tablet ity of tablet 00:00: through [place] [facility] tube [facility] daily. clopidogreL 2019-03 Yes [id number] 75mg Take 1 [facility] 75 mg 1-23 tablet ity of tablet 00:00: through [place] [facility] tube [facility] daily. levETIRAcet 2019- Yes [id number] 750mg Take 7.5 [facility] am 100 1-23 mL through [facility] of mg/mL oral 00:00: [facility] [place] solution 00 tube 2 [facility] (two) Branch times daily. amLODIPine 2019- Yes [id number] 10mg Take 1 [facility] 10 mg 1-23 tablet ity of tablet 00:00: through [place] [facility] tube Branch daily. atorvastati 2019- Yes [id number] 40mg Take 1 [facility] n 40 mg 1-23 tablet ity of tablet 00:00: through [place] [facility] tube at Branch bedtime. famotidine 2019- Yes [id number] 20mg Take 1 [facility] 20 mg 1-23 tablet by ity of tablet 00:00: mouth 2 [place] (two) Medical times Branch daily. lisinopriL 2019-03 Yes [id number] 40mg Take 1 [facility] 40 mg 1-23 tablet by ity of tablet 00:00: mouth [place] 00 daily. Medical Branch Polyethylen 2019- Yes [id number] 17g Take 1 [facility] e Glycol 1-23 Packet ity of 3350 17 00:00: through [place] gram powder 00 [facility] tube 2 Branch (two) times daily. risperiDONE 2019- Yes [id number] .5mg Take 1 [facility] 0.5 mg 1-23 tablet ity of tablet 00:00: through [place] [facility] tube 2 Branch (two) times daily. aspirin 81 2019- Yes [id number] 81mg Take 1 [facility] mg chewable 1-23 tablet ity of tablet 00:00: through [place] [facility] tube Branch daily. clopidogreL 2019- Yes [id number] 75mg Take 1 [facility] 75 mg 1-23 tablet ity of tablet 00:00: through [place] [facility] tube Branch daily. levETIRAcet 2019- Yes [id number] 750mg Take 7.5 [facility] am 100 1-23 mL through it[facility] of mg/mL oral 00:00: [facility] [place] solution 00 tube 2 Medical (two) Branch times daily. amLODIPine 2019-03 Yes [id number] 10mg Take 1 [facility] 10 mg 1-23 tablet ity of tablet 00:00: through [place] [facility] tube Branch daily. atorvastati 2019- Yes [id number] 40mg Take 1 [facility] n 40 mg 1-23 tablet ity of tablet 00:00: through [place] [facility] tube at Branch bedtime. famotidine 2020- Yes [id number] 20mg Take 1 [facility] 20 mg 1-23 tablet by ity of tablet 00:00: mouth 2 [place] (two) Medical times Branch daily. lisinopriL 2019- Yes [id number] 40mg Take 1 [facility] n[facility] 40 mg 1-23 tablet by ity of tablet 00:00: mouth [place] 00 daily. Medical Branch Polyethylen 2020- Yes [id number] 17g Take 1 [facility] e Glycol 1-23 Packet ity of 3350 17 00:00: through [facility] powder 00 enteral Medic al tube 2 Branch (two) times daily. risperiDONE 2019- Yes [id number] .5mg Take 1 [facility] 0.5 mg 1-23 tablet ity of tablet 00:00: through [place] [facility] tube 2 Branch (two) times daily. aspirin 81 2019- Yes [id number] 81mg Take 1 [facility] mg chewable 1-23 tablet ity of tablet 00:00: through [place] [facility] tube Branch daily. clopidogreL 2020- Yes [id number] 75mg Take 1 [facility] 75 mg 1-23 tablet ity of tablet 00:00: through [place] [facility] tube Branch daily. levETIRAcet 2019- Yes [id number] 750mg Take 7.5 [facility] am 100 1-23 mL through ity of mg/mL oral 00:00: [facility] [place] solution 00 tube 2 Medical (two) Branch times daily. amLODIPine 2019- Yes [id number] 10mg Take 1 [facility] n[facility] 10 mg 1-23 tablet ity of tablet 00:00: through [place] [facility] tube Branch daily. atorvastati 2019- Yes [id number] 40mg Take 1 [facility] n 40 mg 1-23 tablet ity of tablet 00:00: through [place] [facility] tube at Branch bedtime. famotidine 2019- Yes [id number] 20mg Take 1 [facility] 20 mg 1-23 tablet by ity of tablet 00:00: mouth 2 [place] (two) Medical times Branch daily. lisinopriL 2019- Yes [id number] 40mg Take 1 [facility] n[facility] 40 mg 1-23 tablet by ity of tablet 00:00: mouth 00 daily. Medical Branch Polyethylen 2019- Yes [id number] 17g Take 1 [facility] e Glycol 1-23 Packet ity of 3350 17 00:00: through [place] gram powder 00 ent[facility] Medic al tube 2 Branch (two) times daily. risperiDONE 2019-03 Yes [id number] .5mg Take 1 [facility] 0.5 mg 1-23 tablet ity of tablet 00:00: through [facility] tube 2 Branch (two) times daily. aspirin 81 2019-03 Yes [id number] 81mg Take 1 [facility] mg chewable 1-23 tablet ity of tablet 00:00: through [facility] tube Branch daily. clopidogreL 2019- Yes [id number] 75mg Take 1 [facility] 75 mg 1-23 tablet ity of tablet 00:00: through [place] [facility] tube Branch daily. levETIRAcet 2019-03 Yes [id number] 750mg Take 7.5 [facility] am 100 1-23 mL through it[facility] of mg/mL oral 00:00: [facility] [place] solution 00 tube 2 Medical (two) Branch times daily. amLODIPine 2019-03 Yes [id number] 10mg Take 1 [facility] n[facility] 10 mg 1-23 tablet ity of tablet 00:00: through [facility] tube Branch daily. atorvastati 2019- Yes [id number] 40mg Take 1 [facility] n 40 mg 1-23 tablet ity of tablet 00:00: through [facility] tube at Branch bedtime. famotidine 2019-03 Yes [id number] 20mg Take 1 [facility] 20 mg 1-23 tablet by ity of tablet 00:00: mouth 2 (two) Medical times Branch daily. lisinopriL 2019- Yes [id number] 40mg Take 1 [facility] nivers 40 mg 1-23 tablet by ity of tablet 00:00: mouth 00 daily. Medical Branch Polyethylen 2019- Yes [id number] 17g Take 1 [facility] e Glycol 1-23 Packet ity of 3350 17 00:00: through [place] gram powder 00 enteral Medic al tube 2 Branch (two) times daily. risperiDONE 2019-03 Yes [id number] .5mg Take 1 [facility] 0.5 mg 1-23 tablet ity of tablet 00:00: through [facility] tube 2 Branch (two) times daily. aspirin 81 2019-03 Yes [id number] 81mg Take 1 [facility] mg chewable 1-23 tablet ity of tablet 00:00: through [place] [facility] tube Branch daily. clopidogreL 2020- Yes [id number] 75mg Take 1 [facility] 75 mg 1-23 tablet ity of tablet 00:00: through [place] [facility] tube Branch daily. levETIRAcet 2020- Yes [id number] 750mg Take 7.5 [facility] am 100 1-23 mL through ity of mg/mL oral 00:00: [facility] [place] solution 00 tube 2 Medical (two) Branch times daily. amLODIPine 2019- Yes [id number] 10mg Take 1 [facility] nivers 10 mg 1-23 tablet ity of tablet 00:00: through [place] [facility] tube Branch daily. atorvastati 2019- Yes [id number] 40mg Take 1 [facility] n 40 mg 1-23 tablet ity of tablet 00:00: through [place] [facility] tube at Branch bedtime. famotidine 2019- Yes [id number] 20mg Take 1 [facility] 20 mg 1-23 tablet by ity of tablet 00:00: mouth 2 [place] (two) Medical times Branch daily. lisinopriL 2019- Yes [id number] 40mg Take 1 [facility] nivers 40 mg 1-23 tablet by ity of tablet 00:00: mouth [place] 00 daily. Medical Branch Polyethylen 2019- Yes [id number] 17g Take 1 [facility] e Glycol 1-23 Packet ity of 3350 17 00:00: through [place] gram powder 00 enteral Medic al tube 2 Branch (two) times daily. risperiDONE 2019- Yes [id number] .5mg Take 1 [facility] 0.5 mg 1-23 tablet ity of tablet 00:00: through [place] [facility] tube 2 Branch (two) times daily. aspirin 81 2019- Yes [id number] 81mg Take 1 [facility] mg chewable 1-23 tablet ity of tablet 00:00: through [place] [facility] tube Branch daily. clopidogreL 2019- Yes [id number] 75mg Take 1 [facility] 75 mg 1-23 tablet ity of tablet 00:00: through [place] [facility] tube Branch daily. levETIRAcet 2019- Yes [id number] 750mg Take 7.5 [facility] am 100 1-23 mL through ity of mg/mL oral 00:00: [facility] [place] solution 00 tube 2 Medical (two) Branch times daily. amLODIPine 2019- Yes [id number] 10mg Take 1 [facility] nivers 10 mg 1-23 tablet ity of tablet 00:00: through [place] [facility] tube Branch daily. atorvastati 2019- Yes [id number] 40mg Take 1 [facility] n 40 mg 1-23 tablet ity of tablet 00:00: through [place] [facility] tube at Branch bedtime. famotidine 2019- Yes [id number] 20mg Take 1 [facility] 20 mg 1-23 tablet by ity of tablet 00:00: mouth 2 [place] (two) Medical times Branch daily. lisinopriL 2019- Yes [id number] 40mg Take 1 [facility] nivers 40 mg 1-23 tablet by ity of tablet 00:00: mouth [place] 00 daily. Medical Branch Polyethylen 2019- Yes [id number] 17g Take 1 [facility] e Glycol 1-23 Packet ity of 3350 17 00:00: through [place] gram powder 00 enteral Medic al tube 2 Branch (two) times daily. risperiDONE 2019- Yes [id number] .5mg Take 1 [facility] 0.5 mg 1-23 tablet ity of tablet 00:00: through [place] [facility] tube 2 Branch (two) times daily. aspirin 81 2019- Yes [id number] 81mg Take 1 [facility] mg chewable 1-23 tablet ity of tablet 00:00: through [place] [facility] tube Branch daily. clopidogreL 2019- Yes [id number] 75mg Take 1 [facility] 75 mg 1-23 tablet ity of tablet 00:00: through [place] [facility] tube Branch daily. levETIRAcet 2019- Yes [id number] 750mg Take 7.5 [facility] am 100 1-23 mL through ity of mg/mL oral 00:00: [facility] [place] solution 00 tube 2 Medical (two) Branch times daily. amLODIPine 2019- Yes [id number] 10mg Take 1 [facility] nivers 10 mg 1-23 tablet ity of tablet 00:00: through [place] [facility] tube Branch daily. atorvastati 2019- Yes [id number] 40mg Take 1 [facility] n 40 mg 1-23 tablet ity of tablet 00:00: through [place] [facility] tube at Branch bedtime. famotidine 2019- Yes [id number] 20mg Take 1 [facility] 20 mg 1-23 tablet by ity of tablet 00:00: mouth 2 (two) Medical times Branch daily. lisinopriL 2019-03 Yes [id number] 40mg Take 1 [facility] nivers 40 mg 1-23 tablet by ity of tablet 00:00: mouth daily. Medical Branch Polyethylen 2019-03 Yes [id number] 17g Take 1 [facility] e Glycol 1-23 Packet ity of 3350 17 00:00: through [place] gram powder 00 enteral Medic al tube 2 Branch (two) times daily. risperiDONE 2019-03 Yes [id number] .5mg Take 1 [facility] 0.5 mg 1-23 tablet ity of tablet 00:00: through [place] [facility] tube 2 Branch (two) times daily. aspirin 81 2019- Yes [id number] 81mg Take 1 [facility] mg chewable 1-23 tablet ity of tablet 00:00: through [place] [facility] tube Branch daily. clopidogreL 2019- Yes [id number] 75mg Take 1 [facility] 75 mg 1-23 tablet ity of tablet 00:00: through [place] [facility] tube Branch daily. levETIRAcet 2019-03 Yes [id number] 750mg Take 7.5 [facility] am 100 1-23 mL through ity of mg/mL oral 00:00: [facility] [place] solution 00 tube 2 Medical (two) Branch times daily. amLODIPine 2019-03 Yes [id number] 10mg Take 1 [facility] nivers 10 mg 1-23 tablet ity of tablet 00:00: through [place] [facility] tube Branch daily. atorvastati 2019- Yes [id number] 40mg Take 1 [facility] n 40 mg 1-23 tablet ity of tablet 00:00: through [place] [facility] tube at Branch bedtime. famotidine 2019- Yes [id number] 20mg Take 1 [facility] 20 mg 1-23 tablet by ity of tablet 00:00: mouth 2 (two) Medical times Branch daily. lisinopriL 2019- Yes [id number] 40mg Take 1 U nivers 40 mg 1-23 tablet by ity of tablet 00:00: mouth daily. Medical Branch Polyethylen 2019-03 Yes [id number] 17g Take 1 [facility] e Glycol 1-23 Packet ity of 3350 17 00:00: through [place] gram powder 00 enteral Medic al tube 2 Branch (two) times daily. risperiDONE 2019-03 Yes [id number] .5mg Take 1 [facility] 0.5 mg 1-23 tablet ity of tablet 00:00: through [place] [facility] tube 2 Branch (two) times daily. aspirin 81 2019-03 Yes [id number] 81mg Take 1 [facility] mg chewable 1-23 tablet ity of tablet 00:00: through [place] [facility] tube Branch daily. clopidogreL 2019-03 Yes [id number] 75mg Take 1 [facility] 75 mg 1-23 tablet ity of tablet 00:00: through [place] [facility] tube Branch daily. levETIRAcet 2019- Yes [id number] 750mg Take 7.5 [facility] am 100 1-23 mL through ity of mg/mL oral 00:00: [facility] [place] solution 00 tube 2 Medical (two) Branch times daily. amLODIPine 2019- Yes [id number] 10mg Take 1 [facility] nivers 10 mg 1-23 tablet ity of tablet 00:00: through [place] [facility] tube Branch daily. atorvastati 2019-03 Yes [id number] 40mg Take 1 [facility] n 40 mg 1-23 tablet ity of tablet 00:00: through [place] [facility] tube at Branch bedtime. famotidine 2019- Yes [id number] 20mg Take 1 [facility] 20 mg 1-23 tablet by ity of tablet 00:00: mouth 2 [place] (two) Medical times Branch daily. lisinopriL 2019- Yes [id number] 40mg Take 1 U nivers 40 mg 1-23 tablet by ity of tablet 00:00: mouth [place] 00 daily. Medical Branch Polyethylen 2019-03 Yes [id number] 17g Take 1 [facility] e Glycol 1-23 Packet ity of 3350 17 00:00: through [place] gram powder 00 enteral Medic al tube 2 Branch (two) times daily. risperiDONE 2019-03 Yes [id number] .5mg Take 1 [facility] 0.5 mg 1-23 tablet ity of tablet 00:00: through [place] 00 enteral Medical tube 2 Branch (two) times daily. aspirin 81 2019-03 Yes [id number] 81mg Take 1 [facility] mg chewable 1-23 tablet ity of tablet 00:00: through [place] 00 enteral Medical tube Branch daily. clopidogreL 2019-03 Yes [id number] 75mg Take 1 [facility] 75 mg 1-23 tablet ity of tablet 00:00: through [place] [facility] tube Branch daily. levETIRAcet 2020- Yes [id number] 750mg Take 7.5 [facility] am 100 1-23 mL through ity of mg/mL oral 00:00: [facility] solution 00 tube 2 Medical (two) Branch times daily. amLODIPine 2019- Yes [id number] 10mg Take 1 [facility] nivers 10 mg 1-23 tablet ity of tablet 00:00: through [place] [facility] tube Branch daily. atorvastati 2019- Yes [id number] 40mg Take 1 [facility] n 40 mg 1-23 tablet ity of tablet 00:00: through [place] [facility] tube at Branch bedtime. famotidine 2019- Yes [id number] 20mg Take 1 [facility] 20 mg 1-23 tablet by ity of tablet 00:00: mouth 2 [place] [address] (two) Medical times Branch daily. lisinopriL 2019- Yes [id number] 40mg Take 1 U nivers 40 mg 1-23 tablet by ity of tablet 00:00: mouth [place] 00 daily. Medical Branch Polyethylen 2019- Yes [id number] 17g Take 1 [facility] e Glycol 1-23 Packet ity of 3350 17 00:00: through [place] gram powder 00 enteral Medic al tube 2 Branch (two) times daily. risperiDONE 2019- Yes [id number] .5mg Take 1 [facility] 0.5 mg 1-23 tablet ity of tablet 00:00: through [place] [facility] tube 2 Branch (two) times daily. aspirin 81 2019- Yes [id number] 81mg Take 1 [facility] mg chewable 1-23 tablet ity of tablet 00:00: through [place] [facility] tube Branch daily. clopidogreL 2020- Yes [id number] 75mg Take 1 [facility] 75 mg 1-23 tablet ity of tablet 00:00: through [place] [facility] tube Branch daily. levETIRAcet 2019- Yes [id number] 750mg Take 7.5 [facility] am 100 1-23 mL through ity of mg/mL oral 00:00: [facility] solution 00 tube 2 Medical (two) Branch times daily. amLODIPine 2019- Yes [id number] 10mg Take 1 [facility] nivers 10 mg 1-23 tablet ity of tablet 00:00: through [place] [facility] tube Branch daily. atorvastati 2019- Yes [id number] 40mg Take 1 [facility] n 40 mg 1-23 tablet ity of tablet 00:00: through enteral Medical tube at Branch bedtime. famotidine 2020- Yes [id number] 20mg Take 1 [facility] 20 mg 1-23 tablet by ity of tablet 00:00: mouth 2 (two) Medical times Branch daily. lisinopriL 2019-03 Yes [id number] 40mg Take 1 U nivers 40 mg 1-23 tablet by ity of tablet 00:00: mouth daily. Medical Branch Polyethylen 2019- Yes [id number] 17g Take 1 [facility] e Glycol 1-23 Packet ity of 3350 17 00:00: through [place] gram powder 00 ent[facility] al tube 2 Branch (two) times daily. risperiDONE 2019- Yes [id number] .5mg Take 1 [facility] 0.5 mg 1-23 tablet ity of tablet 00:00: through [place] [facility] tube 2 Branch (two) times daily. aspirin 81 2019-03 Yes [id number] 81mg Take 1 [facility] mg chewable 1-23 tablet ity of tablet 00:00: through [place] [facility] tube Branch daily. clopidogreL 2019- Yes [id number] 75mg Take 1 [facility] 75 mg 1-23 tablet ity of tablet 00:00: through [place] [facility] tube Branch daily. levETIRAcet 2019- Yes [id number] 750mg Take 7.5 [facility] am 100 1-23 mL through [facility] of mg/mL oral 00:00: [facility] [place] solution 00 tube 2 [facility] (two) Branch times daily. amLODIPine 2019-03 Yes [id number] 10mg Take 1 [facility] 10 mg 1-23 tablet ity of tablet 00:00: through [place] [facility] tube Branch daily. atorvastati 2019- Yes [id number] 40mg Take 1 [facility] n 40 mg 1-23 tablet ity of tablet 00:00: through [place] [facility] tube at Branch bedtime. famotidine 2019- Yes [id number] 20mg Take 1 [facility] 20 mg 1-23 tablet by [facility]y of tablet 00:00: mouth 2 [place] (two) Medical times Branch daily. lisinopriL 2019-03 Yes [id number] 40mg Take 1 [facility] 40 mg 1-23 tablet by ity of tablet 00:00: mouth [place] daily. Medical Branch Polyethylen 2019-03 Yes [id number] 17g Take 1 [facility] e Glycol 1-23 Packet ity of 3350 17 00:00: through [place] gram powder 00 [facility] tube 2 Branch (two) times daily. risperiDONE 2019-03 Yes [id number] .5mg Take 1 [facility] 0.5 mg 1-23 tablet ity of tablet 00:00: through [place] [facility] tube 2 Branch (two) times daily. aspirin 81 2019-03 Yes [id number] 81mg Take 1 [facility] mg chewable 1-23 tablet ity of tablet 00:00: through [place] [facility] tube Branch daily. clopidogreL 2019-03 Yes [id number] 75mg Take 1 [facility] 75 mg 1-23 tablet ity of tablet 00:00: through [place] [facility] tube Branch daily. levETIRAcet 2019-03 Yes [id number] 750mg Take 7.5 [facility] am 100 1-23 mL through [facility] of mg/mL oral 00:00: [facility] [place] solution 00 tube 2 [facility] (two) Branch times daily. amLODIPine 2019-03 Yes [id number] 10mg Take 1 [facility] 10 mg 1-23 tablet ity of tablet 00:00: through [place] [facility] tube Branch daily. atorvastati 2019-03 Yes [id number] 40mg Take 1 [facility] n 40 mg 1-23 tablet ity of tablet 00:00: through [place] [facility] tube at Branch bedtime. famotidine 2019-03 Yes [id number] 20mg Take 1 [facility] 20 mg 1-23 tablet by [facility]y of tablet 00:00: mouth 2 [place] (two) Medical times Branch daily. lisinopriL 2019-03 Yes [id number] 40mg Take 1 [facility] 40 mg 1-23 tablet by [facility]y of tablet 00:00: mouth 00 daily. Medical Branch Polyethylen 2019-03 Yes [id number] 17g Take 1 [facility] e Glycol 1-23 Packet ity of 3350 17 00:00: through [place] gram powder 00 [facility] tube 2 Branch (two) times daily. risperiDONE 2019-03 Yes [id number] .5mg Take 1 [facility] 0.5 mg 1-23 tablet ity of tablet 00:00: through [place] 00 [facility]eral [facility] tube 2 Branch (two) times daily. aspirin 81 2019-03 Yes [id number] 81mg Take 1 [facility] mg chewable 1-23 tablet ity of tablet 00:00: through [facility] tube Branch daily. clopidogreL 2020- Yes [id number] 75mg Take 1 [facility] 75 mg 1-23 tablet ity of tablet 00:00: through [place] [facility] tube Branch daily. levETIRAcet 2020- Yes [id number] 750mg Take 7.5 [facility] am 100 1-23 mL through [facility] of mg/mL oral 00:00: [facility] [place] solution 00 tube 2 [facility] (two) Branch times daily. amLODIPine 2020- Yes [id number] 10mg Take 1 [facility] 10 mg 1-23 tablet ity of tablet 00:00: through [place] [facility] tube Branch daily. atorvastati 2020- Yes [id number] 40mg Take 1 [facility] n 40 mg 1-23 tablet ity of tablet 00:00: through [place] [facility] tube at Branch bedtime. famotidine 2020- Yes [id number] 20mg Take 1 [facility] 20 mg 1-23 tablet by ity of tablet 00:00: mouth 2 [place] (two) Medical times Branch daily. lisinopriL 2020- Yes [id number] 40mg Take 1 [facility] 40 mg 1-23 tablet by [facility]y of tablet 00:00: mouth 00 daily. Medical Branch Polyethylen 2020- Yes [id number] 17g Take 1 [facility] e Glycol 1-23 Packet ity of 3350 17 00:00: through [place] gram powder 00 [facility] tube 2 Branch (two) times daily. risperiDONE 2020- Yes [id number] .5mg Take 1 [facility] 0.5 mg 1-23 tablet ity of tablet 00:00: through [place] [facility] tube 2 Branch (two) times daily. aspirin 81 2020- Yes [id number] 81mg Take 1 [facility] mg chewable 1-23 tablet ity of tablet 00:00: through [place] [facility] tube Branch daily. clopidogreL 2020- Yes [id number] 75mg Take 1 [facility] 75 mg 1-23 tablet ity of tablet 00:00: through [place] [facility] tube Branch daily. levETIRAcet 2019- Yes [id number] 750mg Take 7.5 [facility] am 100 1-23 mL through [facility] of mg/mL oral 00:00: [facility] [place] solution 00 tube 2 [facility] (two) Branch times daily. amLODIPine 2019- Yes [id number] 10mg Take 1 [facility] 10 mg 1-23 tablet ity of tablet 00:00: through [place] [facility] tube Branch daily. atorvastati 2019- Yes [id number] 40mg Take 1 [facility] n 40 mg 1-23 tablet ity of tablet 00:00: through [place] [facility] tube at Branch bedtime. famotidine 2020- Yes [id number] 20mg Take 1 [facility] 20 mg 1-23 tablet by [facility]y of tablet 00:00: mouth 2 (two) Medical times Branch daily. lisinopriL 2019- Yes [id number] 40mg Take 1 [facility] 40 mg 1-23 tablet by ity of tablet 00:00: mouth [place] 00 daily. Medical Branch Polyethylen 2019- Yes [id number] 17g Take 1 [facility] e Glycol 1-23 Packet ity of 3350 17 00:00: through [place] gram powder 00 [facility] tube 2 Branch (two) times daily. risperiDONE 2019- Yes [id number] .5mg Take 1 [facility] 0.5 mg 1-23 tablet ity of tablet 00:00: through [place] [facility] tube 2 Branch (two) times daily. aspirin 81 2019- Yes [id number] 81mg Take 1 [facility] mg chewable 1-23 tablet ity of tablet 00:00: through [place] [facility] tube Branch daily. clopidogreL 2020- Yes [id number] 75mg Take 1 [facility] 75 mg 1-23 tablet ity of tablet 00:00: through [place] [facility] tube Branch daily. levETIRAcet 2019- Yes [id number] 750mg Take 7.5 [facility] am 100 1-23 mL through [facility] of mg/mL oral 00:00: [facility] [place] solution 00 tube 2 [facility] (two) Branch times daily. amLODIPine 2019- Yes [id number] 10mg Take 1 [facility] 10 mg 1-23 tablet ity of tablet 00:00: through [place] [facility] tube Branch daily. atorvastati 2019- Yes [id number] 40mg Take 1 [facility] n 40 mg 1-23 tablet ity of tablet 00:00: through [place] [facility] tube at Branch bedtime. famotidine 2019- Yes [id number] 20mg Take 1 [facility] 20 mg 1-23 tablet by ity of tablet 00:00: mouth 2 (two) Medical times Branch daily. lisinopriL 2019- Yes [id number] 40mg Take 1 [facility] 40 mg 1-23 tablet by ity of tablet 00:00: mouth 00 daily. Medical Branch Polyethylen 2019- Yes [id number] 17g Take 1 [facility] e Glycol 1-23 Packet ity of 3350 17 00:00: through [place] gram powder 00 [facility] tube 2 Branch (two) times daily. risperiDONE 2019-03 Yes [id number] .5mg Take 1 [facility] 0.5 mg 1-23 tablet ity of tablet 00:00: through [place] [facility] tube 2 Branch (two) times daily. aspirin 81 2019- Yes [id number] 81mg Take 1 [facility] mg chewable 1-23 tablet ity of tablet 00:00: through [place] [facility] tube Branch daily. clopidogreL 2019- Yes [id number] 75mg Take 1 [facility] 75 mg 1-23 tablet ity of tablet 00:00: through [place] [facility] tube Branch daily. levETIRAcet 2019-03 Yes [id number] 750mg Take 7.5 [facility] am 100 1-23 mL through [facility] of mg/mL oral 00:00: [facility] [place] solution 00 tube 2 Medical (two) Branch times daily. amLODIPine 2019- Yes [id number] 10mg Take 1 [facility] 10 mg 1-23 tablet ity of tablet 00:00: through [place] [facility] tube Branch daily. atorvastati 2019- Yes [id number] 40mg Take 1 [facility] n 40 mg 1-23 tablet ity of tablet 00:00: through [place] [facility] tube at Branch bedtime. famotidine 2019-03 Yes [id number] 20mg Take 1 [facility] 20 mg 1-23 tablet by ity of tablet 00:00: mouth 2 (two) Medical times Branch daily. lisinopriL 2019- Yes [id number] 40mg Take 1 [facility] 40 mg 1-23 tablet by ity of tablet 00:00: mouth 00 daily. Medical Branch Polyethylen 2019- Yes [id number] 17g Take 1 [facility] e Glycol 1-23 Packet ity of 3350 17 00:00: through [place] gram powder 00 [facility] tube 2 Branch (two) times daily. risperiDONE 2019- Yes [id number] .5mg Take 1 [facility] 0.5 mg 1-23 tablet ity of tablet 00:00: through [place] [facility] tube 2 Branch (two) times daily. aspirin 81 2019-03 Yes [id number] 81mg Take 1 [facility] mg chewable 1-23 tablet ity of tablet 00:00: through [place] [facility] tube Branch daily. clopidogreL 2019-03 Yes [id number] 75mg Take 1 [facility] 75 mg 1-23 tablet ity of tablet 00:00: through [place] [facility] tube Branch daily. levETIRAcet 2019-03 Yes [id number] 750mg Take 7.5 [facility] am 100 1-23 mL through [facility] of mg/mL oral 00:00: [facility] [place] solution 00 tube 2 Medical (two) Branch times daily. amLODIPine 2019-03 Yes [id number] 10mg Take 1 [facility] 10 mg 1-23 tablet ity of tablet 00:00: through [place] [facility] tube Branch daily. atorvastati 2019- Yes [id number] 40mg Take 1 [facility] n 40 mg 1-23 tablet ity of tablet 00:00: through [place] [facility] tube at Branch bedtime. famotidine 2019-03 Yes [id number] 20mg Take 1 [facility] 20 mg 1-23 tablet by ity of tablet 00:00: mouth 2 [place] (two) Medical times Branch daily. lisinopriL 2019-03 Yes [id number] 40mg Take 1 [facility] 40 mg 1-23 tablet by ity of tablet 00:00: mouth [place] 00 daily. Medical Branch Polyethylen 2019-03 Yes [id number] 17g Take 1 [facility] e Glycol 1-23 Packet ity of 3350 17 00:00: through [place] gram powder 00 [facility] tube 2 Branch (two) times daily. risperiDONE 2019- Yes [id number] .5mg Take 1 [facility] 0.5 mg 1-23 tablet ity of tablet 00:00: through [place] 00 [facility]eral [facility] tube 2 Branch (two) times daily. aspirin 81 2019-03 Yes [id number] 81mg Take 1 [facility] mg chewable 1-23 tablet ity of tablet 00:00: through [place] 00 enteral [facility] tube Branch daily. clopidogreL 2019-03 Yes [id number] 75mg Take 1 [facility] 75 mg 1-23 tablet ity of tablet 00:00: through [place] [facility] tube Branch daily. levETIRAcet 2019-03 Yes [id number] 750mg Take 7.5 [facility] am 100 1-23 mL through [facility] of mg/mL oral 00:00: [facility] [place] solution 00 tube 2 Medical (two) Branch times daily. amLODIPine 2019- Yes [id number] 10mg Take 1 [facility] 10 mg 1-23 tablet ity of tablet 00:00: through [place] [facility] tube Branch daily. atorvastati 2019-03 Yes [id number] 40mg Take 1 [facility] n 40 mg 1-23 tablet ity of tablet 00:00: through [place] [facility] tube at Branch bedtime. famotidine 2019- Yes [id number] 20mg Take 1 [facility] 20 mg 1-23 tablet by ity of tablet 00:00: mouth 2 [place] (two) Medical times Branch daily. lisinopriL 2019- Yes [id number] 40mg Take 1 [facility] 40 mg 1-23 tablet by ity of tablet 00:00: mouth [place] 00 daily. Medical Branch Polyethylen 2019- Yes [id number] 17g Take 1 [facility] e Glycol 1-23 Packet ity of 3350 17 00:00: through [place] gram powder 00 enteral [facility] al tube 2 Branch (two) times daily. risperiDONE 2019- Yes [id number] .5mg Take 1 [facility] 0.5 mg 1-23 tablet ity of tablet 00:00: through [place] [facility] tube 2 Branch (two) times daily. aspirin 81 2019- Yes [id number] 81mg Take 1 [facility] mg chewable 1-23 tablet ity of tablet 00:00: through [place] [facility] tube Branch daily. clopidogreL 2019- Yes [id number] 75mg Take 1 [facility] 75 mg 1-23 tablet ity of tablet 00:00: through [place] [facility] tube Branch daily. levETIRAcet 2019- Yes [id number] 750mg Take 7.5 [facility] am 100 1-23 mL through [facility] of mg/mL oral 00:00: [facility] [place] solution 00 tube 2 Medical (two) Branch times daily. amLODIPine 2019- Yes [id number] 10mg Take 1 [facility] 10 mg 1-23 tablet ity of tablet 00:00: through [place] [facility] tube Branch daily. atorvastati 2019-03 Yes [id number] 40mg Take 1 [facility] n 40 mg 1-23 tablet ity of tablet 00:00: through [facility] tube at Branch bedtime. famotidine 2020- Yes [id number] 20mg Take 1 [facility] 20 mg 1-23 tablet by ity of tablet 00:00: mouth 2 (two) Medical times Branch daily. lisinopriL 2019- Yes [id number] 40mg Take 1 [facility] 40 mg 1-23 tablet by ity of tablet 00:00: mouth 00 daily. Medical Branch Polyethylen 2019- Yes [id number] 17g Take 1 [facility] e Glycol 1-23 Packet ity of 3350 17 00:00: through [place] gram powder 00 [facility]eral [facility] al tube 2 Branch (two) times daily. risperiDONE 2020- Yes [id number] .5mg Take 1 [facility] 0.5 mg 1-23 tablet ity of tablet 00:00: through [place] [facility] tube 2 Branch (two) times daily. aspirin 81 2019- Yes [id number] 81mg Take 1 [facility] mg chewable 1-23 tablet ity of tablet 00:00: through [place] [facility] tube Branch daily. clopidogreL 2019- Yes [id number] 75mg Take 1 [facility] 75 mg 1-23 tablet ity of tablet 00:00: through [place] [facility] tube Branch daily. levETIRAcet 2019- Yes [id number] 750mg Take 7.5 [facility] am 100 1-23 mL through [facility] of mg/mL oral 00:00: [facility] [place] solution 00 tube 2 Medical (two) Branch times daily. amLODIPine 2019- Yes [id number] 10mg Take 1 [facility] 10 mg 1-23 tablet ity of tablet 00:00: through [place] [facility] tube Branch daily. atorvastati 2019- Yes [id number] 40mg Take 1 [facility] n 40 mg 1-23 tablet ity of tablet 00:00: through [place] [facility] tube at Branch bedtime. famotidine 2019- Yes [id number] 20mg Take 1 [facility] 20 mg 1-23 tablet by ity of tablet 00:00: mouth 2 [place] (two) Medical times Branch daily. lisinopriL 2019- Yes [id number] 40mg Take 1 [facility] 40 mg 1-23 tablet by ity of tablet 00:00: mouth [place] 00 daily. Medical Branch Polyethylen 2019- Yes [id number] 17g Take 1 [facility] e Glycol 1-23 Packet ity of 3350 17 00:00: through [place] gram powder 00 enteral [facility] al tube 2 Branch (two) times daily. risperiDONE 2019-03 Yes [id number] .5mg Take 1 [facility] 0.5 mg 1-23 tablet ity of tablet 00:00: through [place] [facility] tube 2 Branch (two) times daily. aspirin 81 2019-03 Yes [id number] 81mg Take 1 [facility] mg chewable 1-23 tablet ity of tablet 00:00: through [place] [facility] tube Branch daily. clopidogreL 2019-03 Yes [id number] 75mg Take 1 [facility] 75 mg 1-23 tablet ity of tablet 00:00: through [place] [facility] tube Branch daily. levETIRAcet 2019-03 Yes [id number] 750mg Take 7.5 [facility] am 100 1-23 mL through [facility] of mg/mL oral 00:00: [facility] [place] solution 00 tube 2 Medical (two) Branch times daily. amLODIPine 2019-03 Yes [id number] 10mg Take 1 [facility] 10 mg 1-23 tablet ity of tablet 00:00: through [place] [facility] tube Branch daily. atorvastati 2019-03 Yes [id number] 40mg Take 1 [facility] n 40 mg 1-23 tablet ity of tablet 00:00: through [place] [facility] tube at Branch bedtime. famotidine 2019-03 Yes [id number] 20mg Take 1 [facility] 20 mg 1-23 tablet by ity of tablet 00:00: mouth 2 [place] (two) Medical times Branch daily. lisinopriL 2019-03 Yes [id number] 40mg Take 1 [facility] 40 mg 1-23 tablet by ity of tablet 00:00: mouth [place] 00 daily. Medical Branch Polyethylen 2019- Yes [id number] 17g Take 1 [facility] e Glycol 1-23 Packet ity of 3350 17 00:00: through [place] gram powder 00 enteral [facility] al tube 2 Branch (two) times daily. risperiDONE 2019-03 Yes [id number] .5mg Take 1 [facility] 0.5 mg 1-23 tablet ity of tablet 00:00: through [place] 00 enteral [facility] tube 2 Branch (two) times daily. aspirin 81 2019-03 Yes [id number] 81mg Take 1 [facility] mg chewable 1-23 tablet ity of tablet 00:00: through [place] [facility] tube Branch daily. clopidogreL 2020- Yes [id number] 75mg Take 1 [facility] 75 mg 1-23 tablet ity of tablet 00:00: through [place] [facility] tube Branch daily. levETIRAcet 2020- Yes [id number] 750mg Take 7.5 [facility] am 100 1-23 mL through [facility] of mg/mL oral 00:00: [facility] [place] solution 00 tube 2 Medical (two) Branch times daily. amLODIPine 2019- Yes [id number] 10mg Take 1 [facility] 10 mg 1-23 tablet ity of tablet 00:00: through [place] [facility] tube Branch daily. atorvastati 2019- Yes [id number] 40mg Take 1 [facility] n 40 mg 1-23 tablet ity of tablet 00:00: through [place] [facility] tube at Branch bedtime. famotidine 2019- Yes [id number] 20mg Take 1 [facility] 20 mg 1-23 tablet by ity of tablet 00:00: mouth 2 [place] (two) Medical times Branch daily. lisinopriL 2019- Yes [id number] 40mg Take 1 [facility] 40 mg 1-23 tablet by ity of tablet 00:00: mouth [place] daily. Medical Branch Polyethylen 2019- Yes [id number] 17g Take 1 [facility] e Glycol 1-23 Packet ity of 3350 17 00:00: through [place] gram powder 00 enteral [facility] al tube 2 Branch (two) times daily. risperiDONE 2019- Yes [id number] .5mg Take 1 [facility] 0.5 mg 1-23 tablet ity of tablet 00:00: through [place] [facility] tube 2 Branch (two) times daily. aspirin 81 2019- Yes [id number] 81mg Take 1 [facility] mg chewable 1-23 tablet ity of tablet 00:00: through [place] [facility] tube Branch daily. clopidogreL 2020- Yes [id number] 75mg Take 1 [facility] 75 mg 1-23 tablet ity of tablet 00:00: through [place] [facility] tube Branch daily. levETIRAcet 2019- Yes [id number] 750mg Take 7.5 [facility] am 100 1-23 mL through [facility] of mg/mL oral 00:00: [facility] [place] solution 00 tube 2 Medical (two) Branch times daily. amLODIPine 2019- Yes [id number] 10mg Take 1 [facility] n[facility] 10 mg 1-23 tablet ity of tablet 00:00: through [place] [facility] tube Branch daily. atorvastati 2020- Yes [id number] 40mg Take 1 [facility] n 40 mg 1-23 tablet ity of tablet 00:00: through [place] [facility] tube at Branch bedtime. famotidine 2020- Yes [id number] 20mg Take 1 [facility] 20 mg 1-23 tablet by ity of tablet 00:00: mouth 2 [place] (two) Medical times Branch daily. lisinopriL 2020- Yes [id number] 40mg Take 1 [facility] 40 mg 1-23 tablet by ity of tablet 00:00: mouth [place] 00 daily. Medical Branch Polyethylen 2019- Yes [id number] 17g Take 1 [facility] e Glycol 1-23 Packet ity of 3350 17 00:00: through [place] gram powder 00 enteral [facility] al tube 2 Branch (two) times daily. risperiDONE 2019- Yes [id number] .5mg Take 1 [facility] 0.5 mg 1-23 tablet ity of tablet 00:00: through [place] [facility] tube 2 Branch (two) times daily. aspirin 81 2020- Yes [id number] 81mg Take 1 [facility] mg chewable 1-23 tablet ity of tablet 00:00: through [place] [facility] tube Branch daily. clopidogreL 2020- Yes [id number] 75mg Take 1 [facility] 75 mg 1-23 tablet ity of tablet 00:00: through [place] [facility] tube Branch daily. levETIRAcet 2019- Yes [id number] 750mg Take 7.5 [facility] am 100 1-23 mL through [facility] of mg/mL oral 00:00: [facility] [place] solution 00 tube 2 Medical (two) Branch times daily. amLODIPine 2020- Yes [id number] 10mg Take 1 [facility] 10 mg 1-23 tablet ity of tablet 00:00: through [place] [facility] tube Branch daily. atorvastati 2019- Yes [id number] 40mg Take 1 [facility] n 40 mg 1-23 tablet ity of tablet 00:00: through [place] [facility] tube at Branch bedtime. famotidine 2019- Yes [id number] 20mg Take 1 [facility] 20 mg 1-23 tablet by ity of tablet 00:00: mouth 2 [place] (two) Medical times Branch daily. lisinopriL 2019- Yes [id number] 40mg Take 1 [facility] 40 mg 1-23 tablet by ity of tablet 00:00: mouth 00 daily. Medical Branch Polyethylen 2019-03 Yes [id number] 17g Take 1 [facility] e Glycol 1-23 Packet ity of 3350 17 00:00: through [place] gram powder 00 [facility]eral [facility] al tube 2 Branch (two) times daily. risperiDONE 2019-03 Yes [id number] .5mg Take 1 [facility] 0.5 mg 1-23 tablet ity of tablet 00:00: through [facility] tube 2 Branch (two) times daily. aspirin 81 2019- Yes [id number] 81mg Take 1 [facility] mg chewable 1-23 tablet ity of tablet 00:00: through [place] [facility] tube Branch daily. clopidogreL 2019- Yes [id number] 75mg Take 1 [facility] 75 mg 1-23 tablet ity of tablet 00:00: through [place] [facility] tube Branch daily. levETIRAcet 2019-03 Yes [id number] 750mg Take 7.5 [facility] am 100 1-23 mL through [facility] of mg/mL oral 00:00: [facility] [place] solution 00 tube 2 Medical (two) Branch times daily. amLODIPine 2019- Yes [id number] 10mg Take 1 [facility] 10 mg 1-23 tablet ity of tablet 00:00: through [place] [facility] tube Branch daily. atorvastati 2019- Yes [id number] 40mg Take 1 [facility] n 40 mg 1-23 tablet ity of tablet 00:00: through [facility] tube at Branch bedtime. famotidine 2019-03 Yes [id number] 20mg Take 1 [facility] 20 mg 1-23 tablet by ity of tablet 00:00: mouth 2 [place] (two) Medical times Branch daily. lisinopriL 2019- Yes [id number] 40mg Take 1 [facility] 40 mg 1-23 tablet by ity of tablet 00:00: mouth [place] 00 daily. Medical Branch Polyethylen 2019- Yes [id number] 17g Take 1 [facility] e Glycol 1-23 Packet ity of 3350 17 00:00: through [place] gram powder 00 enteral [facility] al tube 2 Branch (two) times daily. risperiDONE 2019-03 Yes [id number] .5mg Take 1 [facility] 0.5 mg 1-23 tablet ity of tablet 00:00: through [place] [facility] tube 2 Branch (two) times daily. aspirin 81 2019-03 Yes [id number] 81mg Take 1 [facility] mg chewable 1-23 tablet ity of tablet 00:00: through [place] [facility] tube Branch daily. clopidogreL 2019- Yes [id number] 75mg Take 1 [facility] 75 mg 1-23 tablet ity of tablet 00:00: through [place] [facility] tube Branch daily. levETIRAcet 2019- Yes [id number] 750mg Take 7.5 [facility] am 100 1-23 mL through [facility] of mg/mL oral 00:00: [facility] [place] solution 00 tube 2 Medical (two) Branch times daily. amLODIPine 2019- Yes [id number] 10mg Take 1 [facility] 10 mg 1-23 tablet ity of tablet 00:00: through [place] [facility] tube Branch daily. atorvastati 2019- Yes [id number] 40mg Take 1 [facility] n 40 mg 1-23 tablet ity of tablet 00:00: through [place] [facility] tube at Branch bedtime. famotidine 2019- Yes [id number] 20mg Take 1 [facility] 20 mg 1-23 tablet by ity of tablet 00:00: mouth 2 [place] (two) Medical times Branch daily. lisinopriL 2019- Yes [id number] 40mg Take 1 [facility] 40 mg 1-23 tablet by ity of tablet 00:00: mouth [place] 00 daily. Medical Branch Polyethylen 2019- Yes [id number] 17g Take 1 [facility] e Glycol 1-23 Packet ity of 3350 17 00:00: through [place] gram powder 00 enteral Medic al tube 2 Branch (two) times daily. risperiDONE 2019- Yes [id number] .5mg Take 1 [facility] 0.5 mg 1-23 tablet ity of tablet 00:00: through [place] [facility] tube 2 Branch (two) times daily. aspirin 81 2019- Yes [id number] 81mg Take 1 [facility] mg chewable 1-23 tablet ity of tablet 00:00: through [place] [facility] tube Branch daily. clopidogreL 2019- Yes [id number] 75mg Take 1 [facility] 75 mg 1-23 tablet ity of tablet 00:00: through [place] [facility] tube Branch daily. levETIRAcet 2019- Yes [id number] 750mg Take 7.5 [facility] am 100 1-23 mL through [facility] of mg/mL oral 00:00: [facility] [place] solution 00 tube 2 Medical (two) Branch times daily. amLODIPine 2019- Yes [id number] 10mg Take 1 [facility] 10 mg 1-23 tablet ity of tablet 00:00: through [place] [facility] tube Branch daily. atorvastati 2019-03 Yes [id number] 40mg Take 1 [facility] n 40 mg 1-23 tablet ity of tablet 00:00: through [place] [facility] tube at Branch bedtime. famotidine 2019- Yes [id number] 20mg Take 1 [facility] 20 mg 1-23 tablet by ity of tablet 00:00: mouth 2 [place] (two) Medical times Branch daily. lisinopriL 2019-03 Yes [id number] 40mg Take 1 [facility] 40 mg 1-23 tablet by ity of tablet 00:00: mouth [place] 00 daily. Medical Branch Polyethylen 2019- Yes [id number] 17g Take 1 [facility] e Glycol 1-23 Packet ity of 3350 17 00:00: through [place] gram powder 00 enteral Medic al tube 2 Branch (two) times daily. risperiDONE 2019- Yes [id number] .5mg Take 1 [facility] 0.5 mg 1-23 tablet ity of tablet 00:00: through [place] [facility] tube 2 Branch (two) times daily. aspirin 81 2019- Yes [id number] 81mg Take 1 [facility] mg chewable 1-23 tablet ity of tablet 00:00: through [place] [facility] tube Branch daily. clopidogreL 2019- Yes [id number] 75mg Take 1 [facility] 75 mg 1-23 tablet ity of tablet 00:00: through [place] [facility] tube Branch daily. levETIRAcet 2019- Yes [id number] 750mg Take 7.5 [facility] am 100 1-23 mL through [facility] of mg/mL oral 00:00: [facility] [place] solution 00 tube 2 Medical (two) Branch times daily. amLODIPine 2019- Yes [id number] 10mg Take 1 [facility] n[facility] 10 mg 1-23 tablet ity of tablet 00:00: through [place] [facility] daily. atorvastati 2019-03 Yes [id number] 40mg Take 1 [facility] 40 mg 1-23 tablet [facility] of tablet 00:00: through [place] [facility] at Branch bedtime. famotidine 2019- Yes [id number] 20mg Take 1 [facility] 20 mg 1-23 tablet by [facility] of tablet 00:00: mouth 2 (two) Medical times Branch daily. lisinopriL 2019- Yes [id number] 40mg Take 1 [facility] 40 mg 1-23 tablet by [facility] of tablet 00:00: mouth 00 daily. Medical Branch Polyethylen 2020- Yes [id number] 17g Take 1 [facility] e Glycol 1-23 Packet ity of 3350 17 00:00: through [place] gram powder 00 [facility] tube 2 Branch (two) times daily. risperiDONE 2019- Yes [id number] .5mg Take 1 [facility] 0.5 mg 1-23 tablet [facility] of tablet 00:00: through [facility] tube 2 Branch (two) times daily. aspirin 81 2019- Yes [id number] 81mg Take 1 [facility] mg chewable 1-23 tablet [facility]y of tablet 00:00: through [place] [facility] daily. clopidogreL 2019- Yes [id number] 75mg Take 1 [facility] 75 mg 1-23 tablet [facility] of tablet 00:00: through [place] [facility] daily. levETIRAcet 2019- Yes [id number] 750mg Take 7.5 [facility] am 100 1-23 mL through [facility] mg/mL oral 00:00: [facility] [place] solution 00 tube 2 [facility] (two) Branch times daily. amLODIPine 2019- Yes [id number] 10mg Take 1 [facility] 10 mg 1-23 tablet [facility] of tablet 00:00: through [place] [facility] daily. atorvastati 2019- Yes [id number] 40mg Take 1 [facility] n 40 mg 1-23 tablet [facility] of tablet 00:00: through [facility] at Branch bedtime. famotidine 2019- Yes [id number] 20mg Take 1 [facility] 20 mg 1-23 tablet by [facility] of tablet 00:00: mouth 2 (two) Medical times Branch daily. lisinopriL 2019- Yes [id number] 40mg Take 1 [facility] 40 mg 1-23 tablet by [facility] of tablet 00:00: mouth 00 daily. Medical Branch Polyethylen 2019- Yes [id number] 17g Take 1 [facility] e Glycol 1-23 Packet ity of 3350 17 00:00: through [place] gram powder 00 [facility] tube 2 Branch (two) times daily. risperiDONE 2020- Yes [id number] .5mg Take 1 [facility] 0.5 mg 1-23 tablet [facility] of tablet 00:00: through [place] [facility] 2 Branch (two) times daily. aspirin 81 2019- Yes [id number] 81mg Take 1 [facility] mg chewable 1-23 tablet [facility] of tablet 00:00: through [place] [facility] daily. clopidogreL 2019- Yes [id number] 75mg Take 1 [facility] 75 mg 1-23 tablet [facility] of tablet 00:00: through [place] [facility] daily. levETIRAcet 2019- Yes [id number] 750mg Take 7.5 [facility] am 100 1-23 mL through [facility] mg/mL oral 00:00: [facility] [place] solution 00 tube 2 [facility] (two) Branch times daily. amLODIPine 2019- Yes [id number] 10mg Take 1 [facility] 10 mg 1-23 tablet [facility] of tablet 00:00: through [place] [facility] daily. atorvastati 2019- Yes [id number] 40mg Take 1 [facility] n 40 mg 1-23 tablet [facility] of tablet 00:00: through [place] [facility] at Branch bedtime. famotidine 2019- Yes [id number] 20mg Take 1 [facility] 20 mg 1-23 tablet by [facility] of tablet 00:00: mouth 2 [place] (two) Medical times Branch daily. lisinopriL 2019- Yes [id number] 40mg Take 1 [facility] 40 mg 1-23 tablet by [facility] of tablet 00:00: mouth [place] 00 daily. Medical Branch Polyethylen 2019- Yes [id number] 17g Take 1 [facility] e Glycol 1-23 Packet ity of 3350 17 00:00: through [place] gram powder 00 [facility] tube 2 Branch (two) times daily. aspirin 81 2019- Yes [id number] 81mg Take 1 [facility] mg chewable 1-23 tablet ity of tablet 00:00: through [place] [facility] daily. clopidogreL 2019- Yes [id number] 75mg Take 1 [facility] 75 mg 1-23 tablet [facility] of tablet 00:00: through [place] [facility] daily. levETIRAcet 2019- Yes [id number] 750mg Take 7.5 [facility] am 100 1-23 mL through [facility] mg/mL oral 00:00: [facility] [place] solution 00 tube 2 [facility] (two) Branch times daily. amLODIPine 2019- Yes [id number] 10mg Take 1 [facility] 10 mg 1-23 tablet it[facility] of tablet 00:00: through [place] [facility] daily. atorvastati 2019- Yes [id number] 40mg Take 1 [facility] n 40 mg 1-23 tablet [facility] of tablet 00:00: through [place] [facility] at Branch bedtime. famotidine 2019- Yes [id number] 20mg Take 1 [facility] 20 mg 1-23 tablet by [facility] of tablet 00:00: mouth 2 [place] (two) Medical times Branch daily. lisinopriL 2019- Yes [id number] 40mg Take 1 [facility] 40 mg 1-23 tablet by [facility] of tablet 00:00: mouth [place] daily. Medical Branch Polyethylen 2019- Yes [id number] 17g Take 1 [facility] e Glycol 1-23 Packet ity of 3350 17 00:00: through [place] [facility] 00 [facility] al tube 2 Branch (two) times daily. aspirin 81 2019- Yes [id number] 81mg Take 1 [facility] mg chewable 1-23 tablet ity of tablet 00:00: through [place] [facility] daily. clopidogreL 2020- Yes [id number] 75mg Take 1 [facility] 75 mg 1-23 tablet ity of tablet 00:00: through [place] [facility] Branch daily. levETIRAcet 2019- Yes [id number] 750mg Take 7.5 [facility] am 100 1-23 mL through [facility] of mg/mL oral 00:00: [facility] [place] solution 00 tube 2 [facility] (two) Branch times daily. amLODIPine 2019- Yes [id number] 10mg Take 1 [facility] n[facility] 10 mg 1-23 tablet ity of tablet 00:00: through [place] [facility] daily. atorvastati 2019- Yes [id number] 40mg Take 1 [facility] n 40 mg 1-23 tablet ity of tablet 00:00: through [place] [facility] at Branch bedtime. famotidine 2019- Yes [id number] 20mg Take 1 [facility] 20 mg 1-23 tablet by it[facility] of tablet 00:00: mouth 2 [place] (two) Medical times Branch daily. lisinopriL 2019- Yes [id number] 40mg Take 1 [facility] 40 mg 1-23 tablet by it[facility] of tablet 00:00: mouth [place] 00 daily. Medical Branch Polyethylen 2019- Yes [id number] 17g Take 1 [facility] e Glycol 1-23 Packet ity of 3350 17 00:00: through [place] gram powder 00 [facility] tube 2 Branch (two) times daily. aspirin 81 2019-03 Yes [id number] 81mg Take 1 [facility] mg chewable 1-23 tablet ity of tablet 00:00: through [place] [facility] daily. clopidogreL 2019- Yes [id number] 75mg Take 1 [facility] 75 mg 1-23 tablet ity of tablet 00:00: through [place] [facility] daily. levETIRAcet 2019- Yes [id number] 750mg Take 7.5 [facility] am 100 1-23 mL through it[facility] of mg/mL oral 00:00: [facility] [place] solution 00 tube 2 [facility] (two) Branch times daily. amLODIPine 2019-03 Yes [id number] 10mg Take 1 [facility] 10 mg 1-23 tablet ity of tablet 00:00: through [place] [facility] daily. atorvastati 2019- Yes [id number] 40mg Take 1 [facility] n 40 mg 1-23 tablet ity of tablet 00:00: through [place] [facility] at Branch bedtime. famotidine 2019- Yes [id number] 20mg Take 1 [facility] 20 mg 1-23 tablet by ity of tablet 00:00: mouth 2 [place] (two) Medical times Branch daily. lisinopriL 2019- Yes [id number] 40mg Take 1 [facility] 40 mg 1-23 tablet by it[facility] of tablet 00:00: mouth [place] 00 daily. Medical Branch Polyethylen 2019-03 Yes [id number] 17g Take 1 [facility] e Glycol 1-23 Packet ity of 3350 17 00:00: through [place] gram powder 00 [facility] al tube 2 Branch (two) times daily. aspirin 81 2019-03 Yes [id number] 81mg Take 1 [facility] mg chewable 1-23 tablet ity of tablet 00:00: through [place] [facility] daily. clopidogreL 2019- Yes [id number] 75mg Take 1 [facility] 75 mg 1-23 tablet ity of tablet 00:00: through [place] 00 [facility] tube Branch daily. levETIRAcet 2020- Yes [id number] 750mg Take 7.5 [facility] am 100 1-23 mL through it[facility] of mg/mL oral 00:00: [facility] [place] solution 00 tube 2 Medical (two) Branch times daily. amLODIPine 2019- Yes [id number] 10mg Take 1 [facility] n[facility] 10 mg 1-23 tablet ity of tablet 00:00: through [place] [facility] Branch daily. atorvastati 2019- Yes [id number] 40mg Take 1 [facility] n 40 mg 1-23 tablet ity of tablet 00:00: through [place] [facility] at Branch bedtime. famotidine 2019- Yes [id number] 20mg Take 1 [facility] 20 mg 1-23 tablet by ity of tablet 00:00: mouth 2 [place] [address] (two) Medical times Branch daily. lisinopriL 2019- Yes [id number] 40mg Take 1 [facility] 40 mg 1-23 tablet by ity of tablet 00:00: mouth [place] 00 daily. Medical Branch Polyethylen 2019- Yes [id number] 17g Take 1 [facility] e Glycol 1-23 Packet ity of 3350 17 00:00: through [place] gram powder 00 [facility] al tube 2 Branch (two) times daily. aspirin 81 2019- Yes [id number] 81mg Take 1 [facility] mg chewable 1-23 tablet ity of tablet 00:00: through [place] [facility] daily. clopidogreL 2019- Yes [id number] 75mg Take 1 [facility] 75 mg 1-23 tablet ity of tablet 00:00: through [place] [facility] Branch daily. levETIRAcet 2019- Yes [id number] 750mg Take 7.5 [facility] am 100 1-23 mL through it[facility] of mg/mL oral 00:00: [facility] [place] solution 00 tube 2 Medical (two) Branch times daily. amLODIPine 2019- Yes [id number] 10mg Take 1 [facility] nivers 10 mg 1-23 tablet ity of tablet 00:00: through [place] [facility] Branch daily. atorvastati 2019- Yes [id number] 40mg Take 1 [facility] n 40 mg 1-23 tablet ity of tablet 00:00: through [place] 00 [facility] tube at Branch bedtime. famotidine 2019- Yes [id number] 20mg Take 1 [facility] 20 mg 1-23 tablet by ity of tablet 00:00: mouth 2 (two) Medical times Branch daily. lisinopriL 2019- Yes [id number] 40mg Take 1 [facility] 40 mg 1-23 tablet by ity of tablet 00:00: mouth 00 daily. Medical Branch Polyethylen 2019- Yes [id number] 17g Take 1 [facility] e Glycol 1-23 Packet ity of 3350 17 00:00: through [place] gram powder 00 [facility] al tube 2 Branch (two) times daily. aspirin 81 2019-03 Yes [id number] 81mg Take 1 [facility] mg chewable 1-23 tablet ity of tablet 00:00: through [place] [facility] daily. clopidogreL 2019- Yes [id number] 75mg Take 1 [facility] 75 mg 1-23 tablet ity of tablet 00:00: through [place] [facility] Branch daily. levETIRAcet 2019-03 Yes [id number] 750mg Take 7.5 [facility] am 100 1-23 mL through [facility] of mg/mL oral 00:00: [facility] [place] solution 00 tube 2 Medical (two) Branch times daily. amLODIPine 2019-03 Yes [id number] 10mg Take 1 [facility] nivers 10 mg 1-23 tablet ity of tablet 00:00: through [place] [facility] tube Branch daily. atorvastati 2019- Yes [id number] 40mg Take 1 [facility] n 40 mg 1-23 tablet ity of tablet 00:00: through [place] [facility] tube at Branch bedtime. famotidine 2019- Yes [id number] 20mg Take 1 [facility] 20 mg 1-23 tablet by ity of tablet 00:00: mouth 2 (two) Medical times Branch daily. lisinopriL 2019- Yes [id number] 40mg Take 1 [facility] 40 mg 1-23 tablet by ity of tablet 00:00: mouth 00 daily. Medical Branch Polyethylen 2019- Yes [id number] 17g Take 1 [facility] e Glycol 1-23 Packet ity of 3350 17 00:00: through [place] gram powder 00 [facility] al tube 2 Branch (two) times daily. aspirin 81 2019-03 Yes [id number] 81mg Take 1 [facility] mg chewable 1-23 tablet ity of tablet 00:00: through [place] [facility] tube Branch daily. clopidogreL 2019- Yes [id number] 75mg Take 1 [facility] 75 mg 1-23 tablet ity of tablet 00:00: through [place] [facility] tube Branch daily. levETIRAcet 2020- Yes [id number] 750mg Take 7.5 [facility] am 100 1-23 mL through it[facility] of mg/mL oral 00:00: [facility] [place] solution 00 tube 2 Medical (two) Branch times daily. amLODIPine 2019- Yes [id number] 10mg Take 1 [facility] nivers 10 mg 1-23 tablet ity of tablet 00:00: through [place] [facility] tube Branch daily. atorvastati 2019- Yes [id number] 40mg Take 1 [facility] n 40 mg 1-23 tablet ity of tablet 00:00: through [place] [facility] tube at Branch bedtime. famotidine 2019- Yes [id number] 20mg Take 1 [facility] 20 mg 1-23 tablet by ity of tablet 00:00: mouth 2 [place] (two) Medical times Branch daily. lisinopriL 2019- Yes [id number] 40mg Take 1 [facility] nivers 40 mg 1-23 tablet by ity of tablet 00:00: mouth [place] 00 daily. Medical Branch Polyethylen 2019- Yes [id number] 17g Take 1 [facility] e Glycol 1-23 Packet ity of 3350 17 00:00: through [place] gram powder 00 [facility]eral Medic al tube 2 Branch (two) times daily. aspirin 81 2019- Yes [id number] 81mg Take 1 [facility] mg chewable 1-23 tablet ity of tablet 00:00: through [place] [facility] tube Branch daily. clopidogreL 2019- Yes [id number] 75mg Take 1 [facility] 75 mg 1-23 tablet ity of tablet 00:00: through [place] [facility] tube Branch daily. levETIRAcet 2019- Yes [id number] 750mg Take 7.5 [facility] am 100 1-23 mL through it[facility] of mg/mL oral 00:00: [facility] [place] solution 00 tube 2 Medical (two) Branch times daily. amLODIPine 2019- Yes [id number] 10mg Take 1 [facility] nivers 10 mg 1-23 tablet ity of tablet 00:00: through [place] [facility] tube Branch daily. atorvastati 2019- Yes [id number] 40mg Take 1 [facility] n 40 mg 1-23 tablet ity of tablet 00:00: through [facility] tube at Branch bedtime. famotidine 2019- Yes [id number] 20mg Take 1 [facility] 20 mg 1-23 tablet by ity of tablet 00:00: mouth 2 (two) Medical times Branch daily. lisinopriL 2019- Yes [id number] 40mg Take 1 [facility] nivers 40 mg 1-23 tablet by ity of tablet 00:00: mouth [place] 00 daily. Medical Branch Polyethylen 2019-03 Yes [id number] 17g Take 1 [facility] e Glycol 1-23 Packet ity of 3350 17 00:00: through [place] gram powder 00 enteral Medic al tube 2 Branch (two) times daily. aspirin 81 2019-03 Yes [id number] 81mg Take 1 [facility] mg chewable 1-23 tablet ity of tablet 00:00: through [place] [facility] tube Branch daily. clopidogreL 2019- Yes [id number] 75mg Take 1 [facility] 75 mg 1-23 tablet ity of tablet 00:00: through [place] [facility] tube Branch daily. levETIRAcet 2019- Yes [id number] 750mg Take 7.5 [facility] am 100 1-23 mL through ity of mg/mL oral 00:00: [facility] [place] solution 00 tube 2 Medical (two) Branch times daily. amLODIPine 2019- Yes [id number] 10mg Take 1 [facility] nivers 10 mg 1-23 tablet ity of tablet 00:00: through [place] [facility] tube Branch daily. atorvastati 2019- Yes [id number] 40mg Take 1 [facility] n 40 mg 1-23 tablet ity of tablet 00:00: through [place] [facility] tube at Branch bedtime. famotidine 2019- Yes [id number] 20mg Take 1 [facility] 20 mg 1-23 tablet by ity of tablet 00:00: mouth 2 [place] (two) Medical times Branch daily. lisinopriL 2019- Yes [id number] 40mg Take 1 [facility] nivers 40 mg 1-23 tablet by ity of tablet 00:00: mouth 00 daily. Medical Branch Polyethylen 2019- Yes [id number] 17g Take 1 [facility] e Glycol 1-23 Packet ity of 3350 17 00:00: through [place] gram powder 00 ent[facility] Medic al tube 2 Branch (two) times daily. aspirin 81 2019-03 Yes [id number] 81mg Take 1 [facility] mg chewable 1-23 tablet ity of tablet 00:00: through [place] [facility] tube Branch daily. clopidogreL 2020- Yes [id number] 75mg Take 1 [facility] 75 mg 1-23 tablet ity of tablet 00:00: through [place] [facility] tube Branch daily. levETIRAcet 2020- Yes [id number] 750mg Take 7.5 [facility] am 100 1-23 mL through ity of mg/mL oral 00:00: [facility] [place] solution 00 tube 2 Medical (two) Branch times daily. amLODIPine 2020- Yes [id number] 10mg Take 1 [facility] nivers 10 mg 1-23 tablet ity of tablet 00:00: through [place] [facility] tube Branch daily. atorvastati 2019- Yes [id number] 40mg Take 1 [facility] n 40 mg 1-23 tablet ity of tablet 00:00: through [place] [facility] tube at Branch bedtime. famotidine 2020- Yes [id number] 20mg Take 1 [facility] 20 mg 1-23 tablet by ity of tablet 00:00: mouth 2 [place] (two) Medical times Branch daily. lisinopriL 2020- Yes [id number] 40mg Take 1 [facility] nivers 40 mg 1-23 tablet by ity of tablet 00:00: mouth [place] 00 daily. Medical Branch Polyethylen 2020- Yes [id number] 17g Take 1 [facility] e Glycol 1-23 Packet ity of 3350 17 00:00: through [place] gram powder 00 enteral Medic al tube 2 Branch (two) times daily. aspirin 81 2020- Yes [id number] 81mg Take 1 [facility] mg chewable 1-23 tablet ity of tablet 00:00: through [place] [facility] tube Branch daily. clopidogreL 2020- Yes [id number] 75mg Take 1 [facility] 75 mg 1-23 tablet ity of tablet 00:00: through [place] [facility] tube Branch daily. levETIRAcet 2020- Yes [id number] 750mg Take 7.5 [facility] am 100 1-23 mL through ity of mg/mL oral 00:00: [facility] [place] solution 00 tube 2 Medical (two) Branch times daily. amLODIPine 2019- Yes [id number] 10mg Take 1 [facility] nivers 10 mg 1-23 tablet ity of tablet 00:00: through [place] [facility] tube Branch daily. atorvastati 2019-1 Yes [id number] 40mg Take 1 [facility] n 40 mg 1-23 tablet ity of tablet 00:00: through [facility] tube at Branch bedtime. famotidine 2019- Yes [id number] 20mg Take 1 [facility] 20 mg 1-23 tablet by ity of tablet 00:00: mouth 2 (two) Medical times Branch daily. lisinopriL 2019- Yes [id number] 40mg Take 1 [facility] nivers 40 mg 1-23 tablet by ity of tablet 00:00: mouth [place] 00 daily. Medical Branch Polyethylen 2019- Yes [id number] 17g Take 1 [facility] e Glycol 1-23 Packet ity of 3350 17 00:00: through [place] gram powder 00 enteral Medic al tube 2 Branch (two) times daily. aspirin 81 2019- Yes [id number] 81mg Take 1 [facility] mg chewable 1-23 tablet ity of tablet 00:00: through [place] [facility] tube Branch daily. clopidogreL 2019- Yes [id number] 75mg Take 1 [facility] 75 mg 1-23 tablet ity of tablet 00:00: through [place] [facility] tube Branch daily. levETIRAcet 2019- Yes [id number] 750mg Take 7.5 [facility] am 100 1-23 mL through [facility]y of mg/mL oral 00:00: [facility] [place] solution 00 tube 2 Medical (two) Branch times daily. amLODIPine 2019- Yes [id number] 10mg Take 1 [facility] nivers 10 mg 1-23 tablet ity of tablet 00:00: through [place] [facility] tube Branch daily. atorvastati 2019- Yes [id number] 40mg Take 1 [facility] n 40 mg 1-23 tablet ity of tablet 00:00: through [place] [facility] tube at Branch bedtime. famotidine 2019- Yes [id number] 20mg Take 1 [facility] 20 mg 1-23 tablet by ity of tablet 00:00: mouth 2 [place] (two) Medical times Branch daily. lisinopriL 2019- Yes [id number] 40mg Take 1 [facility] nivers 40 mg 1-23 tablet by ity of tablet 00:00: mouth [place] 00 daily. Medical Branch Polyethylen 2019- Yes [id number] 17g Take 1 [facility] e Glycol 1-23 Packet ity of 3350 17 00:00: through [place] gram powder 00 [facility] Medic al tube 2 Branch (two) times daily. risperiDONE 2019-03 Yes [id number] .5mg Take 1 [facility] 0.5 mg 1-23 tablet ity of tablet 00:00: through [place] 00 [facility] tube 2 Branch (two) times daily. aspirin 81 2019-03 Yes [id number] 81mg Take 1 [facility] mg chewable 1-23 tablet ity of tablet 00:00: through [place] 00 [facility] tube Branch daily. clopidogreL 2019-03 Yes [id number] 75mg Take 1 [facility] 75 mg 1-23 tablet ity of tablet 00:00: through [place] [facility] tube Branch daily. levETIRAcet 2019-03 Yes [id number] 750mg Take 7.5 [facility] am 100 1-23 mL through ity of mg/mL oral 00:00: [facility] [place] solution 00 tube 2 Medical (two) Branch times daily. amLODIPine 2019- Yes [id number] 10mg Take 1 [facility] nivers 10 mg 1-23 tablet ity of tablet 00:00: through [place] [facility] tube Branch daily. atorvastati 2019-03 Yes [id number] 40mg Take 1 [facility] n 40 mg 1-23 tablet ity of tablet 00:00: through [place] [facility] tube at Branch bedtime. famotidine 2019-03 Yes [id number] 20mg Take 1 [facility] 20 mg 1-23 tablet by ity of tablet 00:00: mouth 2 [place] (two) Medical times Branch daily. lisinopriL 2019-03 Yes [id number] 40mg Take 1 [facility] nivers 40 mg 1-23 tablet by ity of tablet 00:00: mouth [place] 00 daily. Medical Branch Polyethylen 2019-03 Yes [id number] 17g Take 1 [facility] e Glycol 1-23 Packet ity of 3350 17 00:00: through [place] gram powder 00 [facility]eral Medic al tube 2 Branch (two) times daily. risperiDONE 2019- Yes [id number] .5mg Take 1 [facility] 0.5 mg 1-23 tablet ity of tablet 00:00: through [place] 00 [facility] tube 2 Branch (two) times daily. aspirin 81 2019-03 Yes [id number] 81mg Take 1 [facility] mg chewable 1-23 tablet ity of tablet 00:00: through [place] 00 [facility]eral [facility] tube Branch daily. clopidogreL 2019-03 Yes [id number] 75mg Take 1 [facility] 75 mg 1-23 tablet ity of tablet 00:00: through [place] [facility] tube Branch daily. levETIRAcet 2020- Yes [id number] 750mg Take 7.5 [facility] am 100 1-23 mL through [facility] of mg/mL oral 00:00: [facility] [place] solution 00 tube 2 Medical (two) Branch times daily. amLODIPine 2019- Yes [id number] 10mg Take 1 [facility] n[facility] 10 mg 1-23 tablet ity of tablet 00:00: through [place] [facility] tube Branch daily. atorvastati 2019- Yes [id number] 40mg Take 1 [facility] n 40 mg 1-23 tablet ity of tablet 00:00: through [place] [facility] tube at Branch bedtime. famotidine 2019- Yes [id number] 20mg Take 1 [facility] 20 mg 1-23 tablet by ity of tablet 00:00: mouth 2 [place] (two) Medical times Branch daily. lisinopriL 2019- Yes [id number] 40mg Take 1 [facility] n[facility] 40 mg 1-23 tablet by ity of tablet 00:00: mouth [place] daily. Medical Branch Polyethylen 2019- Yes [id number] 17g Take 1 [facility] e Glycol 1-23 Packet ity of 3350 17 00:00: through [place] gram powder 00 [facility] Medic al tube 2 Branch (two) times daily. risperiDONE 2019- Yes [id number] .5mg Take 1 [facility] 0.5 mg 1-23 tablet ity of tablet 00:00: through [place] [facility] tube 2 Branch (two) times daily. aspirin 81 2019- Yes [id number] 81mg Take 1 [facility] mg chewable 1-23 tablet ity of tablet 00:00: through [place] [facility] tube Branch daily. clopidogreL 2020- Yes [id number] 75mg Take 1 [facility] 75 mg 1-23 tablet ity of tablet 00:00: through [place] [facility] tube Branch daily. levETIRAcet 2019- Yes [id number] 750mg Take 7.5 [facility] am 100 1-23 mL through [facility] of mg/mL oral 00:00: [facility] [place] solution 00 tube 2 Medical (two) Branch times daily. amLODIPine 2019- Yes [id number] 10mg Take 1 [facility] nivers 10 mg 1-23 tablet ity of tablet 00:00: through [place] [facility] tube Branch daily. atorvastati 2019- Yes [id number] 40mg Take 1 [facility] n 40 mg 1-23 tablet ity of tablet 00:00: through [place] [facility] tube at Branch bedtime. famotidine 2020- Yes [id number] 20mg Take 1 [facility] 20 mg 1-23 tablet by ity of tablet 00:00: mouth 2 [place] 00 (two) Medical times Branch daily. lisinopriL 2019- Yes [id number] 40mg Take 1 [facility] n[facility] 40 mg 1-23 tablet by ity of tablet 00:00: mouth [place] 00 daily. Medical Branch Polyethylen 2020- Yes [id number] 17g Take 1 [facility] e Glycol 1-23 Packet ity of 3350 17 00:00: through [place] gram powder 00 enteral Medic al tube 2 Branch (two) times daily. risperiDONE 2019- Yes [id number] .5mg Take 1 [facility] 0.5 mg 1-23 tablet ity of tablet 00:00: through [place] 00 enteral Medical tube 2 Branch (two) times daily. aspirin 81 2019-03 Yes [id number] 81mg Take 1 [facility] mg chewable 1-23 tablet ity of tablet 00:00: through [place] [facility] tube Branch daily. aspirin 81 2019-03 Yes [id number] 81mg Take 1 [facility] mg chewable 1-23 tablet ity of tablet 00:00: through [place] [facility] tube Branch daily. clopidogreL 2019- Yes [id number] 75mg Take 1 [facility] 75 mg 1-23 tablet ity of tablet 00:00: through [place] [facility] tube Branch daily. levETIRAcet 2019- Yes [id number] 750mg Take 7.5 [facility] am 100 1-23 mL through [facility] of mg/mL oral 00:00: [facility] [place] solution 00 tube 2 Medical (two) Branch times daily. amLODIPine 2019- Yes [id number] 10mg Take 1 [facility] n[facility] 10 mg 1-23 tablet ity of tablet 00:00: through [place] [facility] tube Branch daily. clopidogreL 2019- Yes [id number] 75mg Take 1 [facility] 75 mg 1-23 tablet ity of tablet 00:00: through [place] [facility] tube Branch daily. atorvastati 2019- Yes [id number] 40mg Take 1 [facility] n 40 mg 1-23 tablet ity of tablet 00:00: through [place] [facility] tube at Branch bedtime. famotidine 2020- Yes [id number] 20mg Take 1 [facility] 20 mg 1-23 tablet by ity of tablet 00:00: mouth 2 [place] 00 (two) Medical times Branch daily. lisinopriL 2019-03 Yes [id number] 40mg Take 1 [facility] n[facility] 40 mg 1-23 tablet by ity of tablet 00:00: mouth [place] 00 daily. Medical Branch Polyethylen 2019- Yes [id number] 17g Take 1 [facility] e Glycol 1-23 Packet ity of 3350 17 00:00: through [place] gram powder 00 enteral Medic al tube 2 Branch (two) times daily. risperiDONE 2019- Yes [id number] .5mg Take 1 [facility] 0.5 mg 1-23 tablet ity of tablet 00:00: through [place] [facility] tube 2 Branch (two) times daily. levETIRAcet 2019-03 Yes [id number] 750mg Take 7.5 [facility] am 100 1-23 mL through ity of mg/mL oral 00:00: [facility] [place] solution 00 tube 2 Medical (two) Branch times daily. amLODIPine 2019-03 Yes [id number] 10mg Take 1 [facility] n[facility] 10 mg 1-23 tablet ity of tablet 00:00: through [place] [facility] tube Branch daily. aspirin 81 2019- Yes [id number] 81mg Take 1 [facility] mg chewable 1-23 tablet ity of tablet 00:00: through [place] [facility] tube Branch daily. clopidogreL 2019- Yes [id number] 75mg Take 1 [facility] 75 mg 1-23 tablet ity of tablet 00:00: through [place] [facility] tube Branch daily. levETIRAcet 2019- Yes [id number] 750mg Take 7.5 [facility] am 100 1-23 mL through ity of mg/mL oral 00:00: [facility] [place] solution 00 tube 2 Medical (two) Branch times daily. amLODIPine 2019- Yes [id number] 10mg Take 1 [facility] n[facility] 10 mg 1-23 tablet ity of tablet 00:00: through [place] [facility] tube Branch daily. atorvastati 2019- Yes [id number] 40mg Take 1 [facility] n 40 mg 1-23 tablet ity of tablet 00:00: through [place] [facility] tube at Branch bedtime. famotidine 2019- Yes [id number] 20mg Take 1 [facility] 20 mg 1-23 tablet by ity of tablet 00:00: mouth 2 (two) Medical times Branch daily. lisinopriL 2019- Yes [id number] 40mg Take 1 [facility] n[facility] 40 mg 1-23 tablet by ity of tablet 00:00: mouth [place] 00 daily. Medical Branch Polyethylen 2019- Yes [id number] 17g Take 1 [facility] e Glycol 1-23 Packet ity of 3350 17 00:00: through [place] gram powder 00 enteral Medic al tube 2 Branch (two) times daily. risperiDONE 2019- Yes [id number] .5mg Take 1 [facility] 0.5 mg 1-23 tablet ity of tablet 00:00: through [place] [facility] tube 2 Branch (two) times daily. atorvastati 2019-03 Yes [id number] 40mg Take 1 [facility] n 40 mg 1-23 tablet ity of tablet 00:00: through [place] [facility] tube at Branch bedtime. aspirin 81 2019- Yes [id number] 81mg Take 1 [facility] mg chewable 1-23 tablet ity of tablet 00:00: through [place] [facility] tube Branch daily. clopidogreL 2019- Yes [id number] 75mg Take 1 [facility] 75 mg 1-23 tablet ity of tablet 00:00: through [place] [facility] tube Branch daily. levETIRAcet 2019- Yes [id number] 750mg Take 7.5 [facility] am 100 1-23 mL through it[facility] of mg/mL oral 00:00: [facility] [place] solution 00 tube 2 Medical (two) Branch times daily. amLODIPine 2019- Yes [id number] 10mg Take 1 [facility] n[facility] 10 mg 1-23 tablet ity of tablet 00:00: through [place] [facility] tube Branch daily. atorvastati 2019- Yes [id number] 40mg Take 1 [facility] n 40 mg 1-23 tablet ity of tablet 00:00: through [place] [facility] tube at Branch bedtime. famotidine 2019- Yes [id number] 20mg Take 1 [facility] 20 mg 1-23 tablet by ity of tablet 00:00: mouth 2 [place] (two) Medical times Branch daily. lisinopriL 2019- Yes [id number] 40mg Take 1 [facility] n[facility] 40 mg 1-23 tablet by ity of tablet 00:00: mouth [place] 00 daily. Medical Branch famotidine 2019- Yes [id number] 20mg Take 1 [facility] 20 mg 1-23 tablet by ity of tablet 00:00: mouth 2 00 (two) Medical times Branch daily. Polyethylen 2019-03 Yes [id number] 17g Take 1 [facility] e Glycol 1-23 Packet ity of 3350 17 00:00: through [place] 00 [facility] Medic al tube 2 Branch (two) times daily. risperiDONE 2019-03 Yes [id number] .5mg Take 1 [facility] 0.5 mg 1-23 tablet ity of tablet 00:00: through 00 [facility] Medical tube 2 Branch (two) times daily. aspirin 81 2019-03 Yes Cerebrovasc 81mg Take 1 [facility] mg chewable 1-23 ular tablet ity of tablet 00:00: accident through s (CVA), enteral Medical unspecified tube Branch mechanism daily. clopidogreL 2019-03 Yes Cerebrovasc 75mg Take 1 [facility] 75 mg 1-23 ular tablet ity of tablet 00:00: accident through (CVA), [facility] Medical unspecified tube Branch mechanism daily. risperiDONE 2019-03- No [id number] .5mg Take 1 [facility] 0.5 mg 1-23 04-06 tablet ity of tablet 00:00: 00:00 through 00 :00 enteral Medical tube 2 Branch (two) times daily. levETIRAcet 2019-03 Yes [id number] 750mg Take 7.5 [facility] am 100 0-28 mL through it[facility] of mg/mL oral 00:00: [place] [place] solution 00 tube 2 Medical (two) Branch times daily. levETIRAcet 2019-03 Yes [id number] 750mg Take 7.5 [facility] am 100 0-28 mL through [facility] of mg/mL oral 00:00: [facility] [place] solution 00 tube 2 Medical (two) Branch times daily. levETIRAcet 2019-03 Yes [id number] 750mg Take 7.5 [facility] am 100 0-28 mL through [facility] of mg/mL oral 00:00: [facility] [place] solution 00 tube 2 Medical (two) Branch times daily. levETIRAcet 2019-03 Yes [id number] 750mg Take 7.5 [facility] am 100 0-28 mL through [facility] of mg/mL oral 00:00: [facility] [place] solution 00 tube 2 Medical (two) Branch times daily. levETIRAcet 2019-03 Yes [id number] 750mg Take 7.5 [facility] am 100 0-28 mL through it[facility] of mg/mL oral 00:00: [facility] [place] solution 00 tube 2 Medical (two) Branch times daily. levETIRAcet 2020-1 Yes [id number] 750mg Take 7.5 [facility] am 100 0-28 mL through it[facility] of mg/mL oral 00:00: [facility] [place] solution 00 tube 2 Medical (two) Branch times daily. levETIRAcet 2020-1 Yes [id number] 750mg Take 7.5 [facility] am 100 0-28 mL through [facility] of mg/mL oral 00:00: [facility] [place] solution 00 tube 2 Medical (two) Branch times daily. levETIRAcet 2020-1 Yes [id number] 750mg Take 7.5 [facility] am 100 0-28 mL through [facility] of mg/mL oral 00:00: [facility] [place] solution 00 tube 2 Medical (two) Branch times daily. levETIRAcet 2020-1 Yes [id number] 750mg Take 7.5 [facility] am 100 0-28 mL through [facility] of mg/mL oral 00:00: [facility] [place] solution 00 tube 2 Medical (two) Branch times daily. levETIRAcet 2020-1 Yes [id number] 750mg Take 7.5 [facility] am 100 0-28 mL through [facility] of mg/mL oral 00:00: [facility] [place] solution 00 tube 2 Medical (two) Branch times daily. levETIRAcet 2020-1 Yes [id number] 750mg Take 7.5 [facility] am 100 0-28 mL through [facility] of mg/mL oral 00:00: [facility] [place] solution 00 tube 2 Medical (two) Branch times daily. levETIRAcet 2020-1 Yes [id number] 750mg Take 7.5 [facility] am 100 0-28 mL through [facility] of mg/mL oral 00:00: [facility] [place] solution 00 tube 2 Medical (two) Branch times daily. levETIRAcet 2020-1 Yes [id number] 750mg Take 7.5 [facility] am 100 0-28 mL through [facility] of mg/mL oral 00:00: [facility] [place] solution 00 tube 2 Medical (two) Branch times daily. levETIRAcet 2020-1 Yes [id number] 750mg Take 7.5 [facility] am 100 0-28 mL through [facility] of mg/mL oral 00:00: [facility] [place] solution 00 tube 2 Medical (two) Branch times daily. levETIRAcet 2020- Yes [id number] 750mg Take 7.5 [facility] am 100 0-28 mL through [facility] of mg/mL oral 00:00: [facility] [place] solution 00 tube 2 Medical (two) Branch times daily. levETIRAcet 2020- Yes [id number] 750mg Take 7.5 [facility] am 100 0-28 mL through [facility] of mg/mL oral 00:00: [facility] [place] solution 00 tube 2 Medical (two) Branch times daily. levETIRAcet 2020- Yes [id number] 750mg Take 7.5 [facility] am 100 0-28 mL through [facility] of mg/mL oral 00:00: [facility] [place] solution 00 tube 2 Medical (two) Branch times daily. levETIRAcet 2019- Yes [id number] 750mg Take 7.5 [facility] am 100 0-28 mL through [facility] of mg/mL oral 00:00: [facility] [place] solution 00 tube 2 Medical (two) Branch times daily. levETIRAcet 2020- Yes [id number] 750mg Take 7.5 [facility] am 100 0-28 mL through [facility] of mg/mL oral 00:00: [facility] [place] solution 00 tube 2 Medical (two) Branch times daily. levETIRAcet 2019- Yes [id number] 750mg Take 7.5 [facility] am 100 0-28 mL through [facility] of mg/mL oral 00:00: [facility] [place] solution 00 tube 2 Medical (two) Branch times daily. levETIRAcet 2020- Yes [id number] 750mg Take 7.5 [facility] am 100 0-28 mL through [facility] of mg/mL oral 00:00: [facility] [place] solution 00 tube 2 Medical (two) Branch times daily. levETIRAcet 2020-1 Yes [id number] 750mg Take 7.5 [facility] am 100 0-28 mL through it[facility] of mg/mL oral 00:00: [facility] [place] solution 00 tube 2 Medical (two) Branch times daily. levETIRAcet 2020- Yes [id number] 750mg Take 7.5 [facility] am 100 0-28 mL through [facility] of mg/mL oral 00:00: [facility] [place] solution 00 tube 2 Medical (two) Branch times daily. levETIRAcet 2019-03 Yes [id number] 750mg Take 7.5 [facility] am 100 0-28 mL through it[facility] of mg/mL oral 00:00: [facility] [place] solution 00 tube 2 Medical (two) Branch times daily. aspirin 81 2019-03- No [id number] 81mg Take 1 [facility] mg chewable 0-28 10-29 tablet ity o f tablet 00:00: 04:59 through [place] 00 :00 enteral Medical tube Branch daily. aspirin 81 2019-03- No [id number] 81mg Take 1 [facility] mg chewable 0-28 10-29 tablet ity o f tablet 00:00: 04:59 through [place] 00 :00 enteral Medical tube Branch daily. aspirin 81 2019-03- No [id number] 81mg Take 1 [facility] mg chewable 0-28 10-29 tablet ity o f tablet 00:00: 04:59 through [place] 00 :00 enteral Medical tube Branch daily. aspirin 81 2019-03- No [id number] 81mg Take 1 [facility] mg chewable 0-28 10-29 tablet ity o f tablet 00:00: 04:59 through [place] 00 :00 enteral Medical tube Branch daily. aspirin 81 2019-03- No [id number] 81mg Take 1 [facility] mg chewable 0-28 10-29 tablet ity o f tablet 00:00: 04:59 through [place] 00 :00 enteral Medical tube Branch daily. aspirin 81 2019-03- No [id number] 81mg Take 1 [facility] mg chewable 0-28 10-29 tablet ity o f tablet 00:00: 04:59 through [place] 00 :00 enteral Medical tube Branch daily. aspirin 81 2019-03- No [id number] 81mg Take 1 [facility] mg chewable 0-28 10-29 tablet ity o f tablet 00:00: 04:59 through [place] 00 :00 enteral Medical tube Branch daily. aspirin 81 2019-03- No [id number] 81mg Take 1 [facility] mg chewable 0-28 10-29 tablet ity o f tablet 00:00: 04:59 through [place] 00 :00 enteral Medical tube Branch daily. aspirin 81 2019-03- No [id number] 81mg Take 1 [facility] mg chewable 0-28 10-29 tablet ity o f tablet 00:00: 04:59 through [place] 00 :00 enteral Medical tube Branch daily. aspirin 81 2019-03- No [id number] 81mg Take 1 [facility] mg chewable 0-28 10-29 tablet ity o f tablet 00:00: 04:59 through [place] 00 :00 enteral Medical tube Branch daily. aspirin 81 2019-03- No [id number] 81mg Take 1 [facility] mg chewable 0-28 10-29 tablet ity o f tablet 00:00: 04:59 through [place] 00 :00 enteral Medical tube Branch daily. aspirin 81 2019-03- No [id number] 81mg Take 1 [facility] mg chewable 0-28 10-29 tablet ity o f tablet 00:00: 04:59 through [place] 00 :00 enteral Medical tube Branch daily. aspirin 81 2019-03- No [id number] 81mg Take 1 [facility] mg chewable 0-28 10-29 tablet ity o f tablet 00:00: 04:59 through [place] 00 :00 enteral Medical tube Branch daily. aspirin 81 2019-03- No [id number] 81mg Take 1 [facility] mg chewable 0-28 10-29 tablet ity o f tablet 00:00: 04:59 through [place] 00 :00 enteral Medical tube Branch daily. aspirin 81 2019-03- No [id number] 81mg Take 1 [facility] mg chewable 0-28 10-29 tablet ity o f tablet 00:00: 04:59 through [place] 00 :00 enteral Medical tube Branch daily. aspirin 81 2019-03- No [id number] 81mg Take 1 [facility] mg chewable 0-28 10-29 tablet ity o f tablet 00:00: 04:59 through [place] 00 :00 enteral Medical tube Branch daily. aspirin 81 2019-03- No [id number] 81mg Take 1 [facility] mg chewable 0-28 10-29 tablet ity o f tablet 00:00: 04:59 through [place] 00 :00 enteral Medical tube Branch daily. aspirin 81 2019-03- No [id number] 81mg Take 1 [facility] mg chewable 0-28 10-29 tablet ity o f tablet 00:00: 04:59 through [place] 00 :00 enteral Medical tube Branch daily. aspirin 81 2019-03- No [id number] 81mg Take 1 [facility] mg chewable 0-28 10-29 tablet ity o f tablet 00:00: 04:59 through [place] 00 :00 enteral Medical tube Branch daily. aspirin 81 2019-03- No [id number] 81mg Take 1 [facility] mg chewable 0-28 10-29 tablet ity o f tablet 00:00: 04:59 through [place] 00 :00 enteral Medical tube Branch daily. aspirin 81 2019-03- No [id number] 81mg Take 1 [facility] mg chewable 0-28 10-29 tablet ity o f tablet 00:00: 04:59 through [place] 00 :00 enteral Medical tube Branch daily. aspirin 81 2019-03- No [id number] 81mg Take 1 [facility] mg chewable 0-28 10-29 tablet ity o f tablet 00:00: 04:59 through [place] 00 :00 enteral Medical tube Branch daily. aspirin 81 2019-03- No [id number] 81mg Take 1 [facility] mg chewable 0-28 10-29 tablet ity o f tablet 00:00: 04:59 through [place] 00 :00 enteral Medical tube Branch daily. aspirin 81 2019-03- No [id number] 81mg Take 1 [facility] mg chewable 0-28 10-29 tablet ity o f tablet 00:00: 04:59 through [place] 00 :00 enteral Medical tube Branch daily. clopidogreL 2019-03- No [id number] 75mg Take 1 [facility] 75 mg 0-28 01-27 tablet ity of tablet 00:00: 05:59 through [place] 00 :00 enteral Medical tube daily Branch for 90 days. clopidogreL 2019-03- No [id number] 75mg Take 1 [facility] 75 mg 0-28 -27 tablet ity of tablet 00:00: 05:59 through [place] 00 :00 enteral Medical tube daily Branch for 90 days. clopidogreL 2019-03- No [id number] 75mg Take 1 [facility] 75 mg 0-28 -27 tablet ity of tablet 00:00: 05:59 through [place] 00 :00 enteral Medical tube daily Branch for 90 days. clopidogreL 2019-03- No [id number] 75mg Take 1 [facility] 75 mg 0-28 -27 tablet ity of tablet 00:00: 05:59 through [place] 00 :00 enteral Medical tube daily Branch for 90 days. clopidogreL 2019-03- No [id number] 75mg Take 1 [facility] 75 mg 0-28 -27 tablet ity of tablet 00:00: 05:59 through [place] 00 :00 enteral Medical tube daily Branch for 90 days. clopidogreL 2019-03- No [id number] 75mg Take 1 [facility] 75 mg 0-28 -27 tablet ity of tablet 00:00: 05:59 through [place] 00 :00 enteral Medical tube daily Branch for 90 days. clopidogreL 2019-03- No [id number] 75mg Take 1 [facility] 75 mg 0-28 -27 tablet ity of tablet 00:00: 05:59 through [place] 00 :00 enteral Medical tube daily Branch for 90 days. clopidogreL 2019-03- No [id number] 75mg Take 1 [facility] 75 mg 0-28 -27 tablet ity of tablet 00:00: 05:59 through [place] 00 :00 enteral Medical tube daily Branch for 90 days. clopidogreL 2019-03- No [id number] 75mg Take 1 [facility] 75 mg 0-28 -27 tablet ity of tablet 00:00: 05:59 through [place] 00 :00 enteral Medical tube daily Branch for 90 days. clopidogreL 2019-03- No [id number] 75mg Take 1 [facility] 75 mg 0-28 -27 tablet ity of tablet 00:00: 05:59 through [place] 00 :00 enteral Medical tube daily Branch for 90 days. clopidogreL 2019-03- No [id number] 75mg Take 1 [facility] 75 mg 0-28 -27 tablet ity of tablet 00:00: 05:59 through [place] 00 :00 enteral Medical tube daily Branch for 90 days. clopidogreL 2019-03- No [id number] 75mg Take 1 [facility] 75 mg 0-28 -27 tablet ity of tablet 00:00: 05:59 through [place] 00 :00 enteral Medical tube daily Branch for 90 days. clopidogreL 2019-03- No [id number] 75mg Take 1 [facility] 75 mg 0-28 -27 tablet ity of tablet 00:00: 05:59 through [place] 00 :00 enteral Medical tube daily Branch for 90 days. clopidogreL 2019-03- No [id number] 75mg Take 1 [facility] 75 mg 0-28 -27 tablet ity of tablet 00:00: 05:59 through [place] 00 :00 enteral Medical tube daily Branch for 90 days. clopidogreL 2019-03- No [id number] 75mg Take 1 [facility] 75 mg 0-28 -27 tablet ity of tablet 00:00: 05:59 through [place] 00 :00 enteral Medical tube daily Branch for 90 days. clopidogreL 2019-03- No [id number] 75mg Take 1 [facility] 75 mg 0-28 -27 tablet ity of tablet 00:00: 05:59 through [place] 00 :00 enteral Medical tube daily Branch for 90 days. clopidogreL 2019-03- No [id number] 75mg Take 1 [facility] 75 mg 0-28 -27 tablet ity of tablet 00:00: 05:59 through [place] 00 :00 enteral Medical tube daily Branch for 90 days. clopidogreL 2019-03- No [id number] 75mg Take 1 [facility] 75 mg 0-28 -27 tablet ity of tablet 00:00: 05:59 through [place] 00 :00 enteral Medical tube daily Branch for 90 days. clopidogreL 2019-03- No [id number] 75mg Take 1 [facility] 75 mg 0-28 -27 tablet ity of tablet 00:00: 05:59 through [place] 00 :00 enteral Medical tube daily Branch for 90 days. clopidogreL 2019-03- No [id number] 75mg Take 1 [facility] 75 mg 0-28 -27 tablet ity of tablet 00:00: 05:59 through [place] 00 :00 enteral Medical tube daily Branch for 90 days. clopidogreL 2019-03- No [id number] 75mg Take 1 [facility] 75 mg 0-28 -27 tablet ity of tablet 00:00: 05:59 through [place] 00 :00 enteral Medical tube daily Branch for 90 days. clopidogreL 2019-03- No [id number] 75mg Take 1 [facility] 75 mg 0-28 -27 tablet ity of tablet 00:00: 05:59 through [place] 00 :00 enteral Medical tube daily Branch for 90 days. clopidogreL 2019-03- No [id number] 75mg Take 1 [facility] 75 mg 0-28 -27 tablet ity of tablet 00:00: 05:59 through [place] 00 :00 enteral Medical tube daily Branch for 90 days. clopidogreL 2019-03- No [id number] 75mg Take 1 [facility] 75 mg 0-28 -27 tablet ity of tablet 00:00: 05:59 through 00 :00 enteral Medical tube daily Branch for 90 days. aspirin 81 2019-03- No [id number] 81mg Take 1 [facility] mg chewable 0-28 11-23 tablet ity o f tablet 00:00: 00:00 through 00 :00 enteral Medical tube Branch daily. levETIRAcet 2019-03- No [id number] 750mg Take 7.5 [facility] am 100 0-28 11-23 mL through ity of mg/mL oral 00:00: 00:00 [facility] [place] solution 00 :00 tube 2 Medical (two) Branch times daily. clopidogreL 2019-03- No [id number] 75mg Take 1 [facility] 75 mg 0-28 11-23 tablet ity of tablet 00:00: 00:00 through 00 :00 enteral Medical tube daily Branch for 90 days. aspirin 81 2019-03- No [id number] 81mg Take 1 [facility] mg chewable 0-28 11-23 tablet ity o f tablet 00:00: 00:00 through [place] 00 :00 enteral Medical tube Branch daily. levETIRAcet 2019-03- No [id number] 750mg Take 7.5 [facility] am 100 0-28 11-23 mL through ity of mg/mL oral 00:00: 00:00 [facility] [place] solution 00 :00 tube 2 Medical (two) Branch times daily. clopidogreL 2019-03- No [id number] 75mg Take 1 [facility] 75 mg 0-28 11-23 tablet ity of tablet 00:00: 00:00 through [place] 00 :00 enteral Medical tube daily Branch for 90 days. aspirin 81 2019-03- No [id number] 81mg Take 1 [facility] mg chewable 0-28 11-23 tablet ity o f tablet 00:00: 00:00 through 00 :00 enteral Medical tube Branch daily. levETIRAcet 2019-03- No [id number] 750mg Take 7.5 [facility] am 100 0-28 11-23 mL through ity of mg/mL oral 00:00: 00:00 [facility] [place] solution 00 :00 tube 2 Medical (two) Branch times daily. clopidogreL 2019-03- No [id number] 75mg Take 1 [facility] 75 mg 0-28 11-23 tablet ity of tablet 00:00: 00:00 through 00 :00 enteral Medical tube daily Branch for 90 days. aspirin 81 2019-03- No [id number] 81mg Take 1 [facility] mg chewable 0-10 02-23 tablet ity o f tablet 00:00: 00:00 through 00 :00 enteral Medical tube Branch daily. levETIRAcet 2019-03- No [id number] 750mg Take 7.5 [facility] am 100 0-28 11-23 mL through ity of mg/mL oral 00:00: 00:00 ent[facility] [place] solution 00 :00 tube 2 Medical (two) Branch times daily. clopidogreL 2019-03- No [id number] 75mg Take 1 [facility] 75 mg 0-10 02-23 tablet ity of tablet 00:00: 00:00 through 00 :00 enteral Medical tube daily Branch for 90 days. mupirocin 2019-03 Yes [facility] (BACTROBAN 0-27 ity of OINT) 2 % 01:00: [place] skin 00 Medical ointment Branch iohexol 2019-03- No 100mL 100 mL, Unive rs (OMNIPAQUE 0-01-08 Intravenou it y of 350 20:48: 20:48 s, ONCE, 1 [place] BULK-100 00 :00 dose, Mon Medica l mL) 01/09/20 Branch injection at 1600, 100 mL Routine cefTRIAXone 2019-03- No 2000mg 2,000 mg, [facility] (ROCEPHIN) 001-08 IV ity of 2,000 mg in 16:00: 19:06 [facility], [place] NaCl 0.9% 00 :22 Q24H ABX, Medic al (NS) 100 mL First dose Br anch MINI-BAG on Thu01/09/20 at 1100, Until Discontinu ed, 100 mL
Reas on for Anti-Infec tive: Documented Infection< br>Documen breanna Infection Site: Urine<br&g t;Duration of Therapy: 7 days acetaminoph 2019-03 Yes 650mg 650 mg, Un shane en 0- Enteral, ity of (TYLENOL) 13:32: Q4HPRN, [place] 160 mg/5 mL 57 Starting Medi bishnu liquid 650 Mon Branch mg 01/09/20 at 0832, Until Discontinu ed, Routine, Pain (scale 1-3), Pain (scale 4-6) amLODIPine 2019- Yes [id number] 10mg Take 1 [facility] 10 mg 0-21 tablet ity of tablet 00:00: through [place] enteral Medical tube Branch daily. amLODIPine 2019- Yes [id number] 10mg Take 1 [facility] 10 mg 0-21 tablet ity of tablet 00:00: through [place] [address] enteral Medical tube Branch daily. amLODIPine 2019- Yes [id number] 10mg Take 1 [facility] 10 mg 0-21 tablet ity of tablet 00:00: through [place] enteral Medical tube Branch daily. amLODIPine 2019-03 Yes [id number] 10mg Take 1 [facility] 10 mg 0-21 tablet ity of tablet 00:00: through [place] enteral Medical tube Branch daily. amLODIPine 2019-03 Yes [id number] 10mg Take 1 [facility] 10 mg 0-21 tablet ity of tablet 00:00: through [place] enteral Medical tube Branch daily. amLODIPine 2019-03 Yes [id number] 10mg Take 1 [facility] 10 mg 0-21 tablet ity of tablet 00:00: through [place] enteral Medical tube Branch daily. amLODIPine 2019-03 Yes [id number] 10mg Take 1 [facility] 10 mg 0-21 tablet ity of tablet 00:00: through [place] [address] enteral Medical tube Branch daily. amLODIPine 2019-03 Yes [id number] 10mg Take 1 [facility] 10 mg 0-21 tablet ity of tablet 00:00: through [place] [address] enteral Medical tube Branch daily. amLODIPine 2019-03 Yes [id number] 10mg Take 1 [facility] 10 mg 0-21 tablet ity of tablet 00:00: through [place] [address] enteral Medical tube Branch daily. amLODIPine 1 Yes [id number] 10mg Take 1 [facility] 10 mg 0-21 tablet ity of tablet 00:00: through [place] [address] enteral Medical tube Branch daily. amLODIPine 1 Yes [id number] 10mg Take 1 [facility] 10 mg 0-21 tablet ity of tablet 00:00: through [place] [address] enteral Medical tube Branch daily. amLODIPine 2019-1 Yes [id number] 10mg Take 1 [facility] 10 mg 0-21 tablet ity of tablet 00:00: through [place] [address] enteral Medical tube Branch daily. amLODIPine 2019-1 Yes [id number] 10mg Take 1 [facility] 10 mg 0-21 tablet ity of tablet 00:00: through [place] [address] enteral Medical tube Branch daily. amLODIPine 1 Yes [id number] 10mg Take 1 [facility] 10 mg 0-21 tablet ity of tablet 00:00: through [place] enteral Medical tube Branch daily. amLODIPine 2020-1 Yes [id number] 10mg Take 1 [facility] 10 mg 0-21 tablet ity of tablet 00:00: through [place] enteral Medical tube Branch daily. amLODIPine 2019-1 Yes [id number] 10mg Take 1 [facility] 10 mg 0-21 tablet ity of tablet 00:00: through [place] enteral Medical tube Branch daily. amLODIPine 2019-1 Yes [id number] 10mg Take 1 [facility] 10 mg 0-21 tablet ity of tablet 00:00: through [place] enteral Medical tube Branch daily. amLODIPine 2019-1 Yes [id number] 10mg Take 1 [facility] 10 mg 0-21 tablet ity of tablet 00:00: through [place] enteral Medical tube Branch daily. amLODIPine 2019-1 Yes [id number] 10mg Take 1 [facility] 10 mg 0-21 tablet ity of tablet 00:00: through [place] [address] enteral Medical tube Branch daily. amLODIPine 2019-1 Yes [id number] 10mg Take 1 [facility] 10 mg 0-21 tablet ity of tablet 00:00: through [place] enteral Medical tube Branch daily. amLODIPine 2019-1 Yes [id number] 10mg Take 1 [facility] 10 mg 0-21 tablet ity of tablet 00:00: through [place] enteral Medical tube Branch daily. amLODIPine 2019-1 Yes [id number] 10mg Take 1 [facility] 10 mg 0-21 tablet ity of tablet 00:00: through [place] enteral Medical tube Branch daily. amLODIPine 2019-1 Yes [id number] 10mg Take 1 [facility] 10 mg 0-21 tablet ity of tablet 00:00: through [place] [address] enteral Medical tube Branch daily. amLODIPine 2019-1 Yes [id number] 10mg Take 1 [facility] 10 mg 0-21 tablet ity of tablet 00:00: through [place] enteral Medical tube Branch daily. amLODIPine 2019-1 Yes [id number] 10mg Take 1 [facility] 10 mg 0-21 tablet ity of tablet 00:00: through [place] [address] enteral Medical tube Branch daily. amLODIPine 2019-03 2020- No [id number] 10mg Take 1 [facility] 10 mg 0-21 11-23 tablet ity of tablet 00:00: 00:00 through [place] 00 :00 enteral Medical tube Branch daily. amLODIPine 2019-03- No [id number] 10mg Take 1 [facility] 10 mg 0-21 11-23 tablet ity of tablet 00:00: 00:00 through [place] 00 :00 enteral Medical tube Branch daily. amLODIPine 2019-03- No [id number] 10mg Take 1 [facility] 10 mg 0-21 11-23 tablet ity of tablet 00:00: 00:00 through [place] 00 :00 enteral Medical tube Branch daily. amLODIPine 2019-03- No [id number] 10mg Take 1 [facility] 10 mg 0-21 11-23 tablet ity of tablet 00:00: 00:00 through [place] 00 :00 enteral Medical tube Branch daily. clopidogreL 2019-03- No [id number] 75mg Take 1 [facility] 75 mg 0-21 10-28 tablet ity of tablet 00:00: 00:00 through [place] 00 :00 enteral Medical tube Branch daily. aspirin 81 2019-03- No [id number] 81mg Take 1 [facility] mg EC 0-21 10-28 tablet by ity of tablet 00:00: 00:00 mouth [place] 00 :00 daily. Medical Branch aspirin 81 2019-03- No [id number] 81mg Take 1 [facility] mg EC 0-21 10-20 tablet by ity of tablet 00:00: 00:00 mouth [place] 00 :00 daily for Medical 30 days. Branch barium 2019-03 No 40mL 40 mL, [facility] sulfate-NO 0-20 10-20 Oral, ity of CHARGE- 15:45: 15:45 ONCE, 1 [place] (VARIBAR 00 :00 dose, Tue Medica l NECTOR) 40 10/20/20 Branc h % (w/v) at 1045, oral Routine suspension 40 mL barium 2019-03- No 40g 40 g, [facility] sulfate 0-20 10-20 Oral, ity of (LIQUID E-Z 15:45: 15:40 ONCE, 1 [place] PA[place] 60 % 00 :00 dose, Tue Med ical (w/v) oral 10/20/20 Branc h suspension at 1045, 40 g Routine lisinopriL 2019-03 Yes 20mg 20 mg, Unive rs (PRINIVIL,Z 0-20 Enteral, ity of ESTRIL) 13:00: B[place], [place] tablet 20 00 dose Medical mg (after Branch last modificati on) on Thu01/03/20 at 0800, Until Discontinu ed, Routine atorvastati 2019-03 Yes [id number] 40mg Take 1 [facility] n 40 mg 0-20 tablet ity of tablet 00:00: through [place] 00 enteral Medical tube at [place] bedtime. risperiDONE 2019- Yes [id number] .5mg Take 1 [facility] 0.5 mg 0-20 tablet ity of tablet 00:00: through [place] enteral Medical tube 2 Branch (two) times daily. Polyethylen 2019- Yes [id number] 17g Take 1 [facility] e Glycol 0-20 Packet ity of 3350 17 00:00: through [place] gram powder 00 enteral Medic al tube 2 Branch (two) times daily. famotidine 2019-03 Yes [id number] 20mg Take 1 [facility] 20 mg 0-20 tablet by ity of tablet 00:00: mouth 2 [place] (two) Medical times [place] daily. lisinopriL 2019-03 Yes [id number] 40mg Take 1 [facility] 40 mg 0-20 tablet by ity of tablet 00:00: mouth [place] 00 daily. Medical Branch atorvastati 2019-03 Yes [id number] 40mg Take 1 [facility] n 40 mg 0-20 tablet ity of tablet 00:00: through [place] enteral Medical tube at [place] bedtime. risperiDONE 2019-03 Yes [id number] .5mg Take 1 [facility] 0.5 mg 0-20 tablet ity of tablet 00:00: through [place] enteral Medical tube 2 Branch (two) times daily. Polyethylen 2019- Yes [id number] 17g Take 1 [facility] e Glycol 0-20 Packet ity of 3350 17 00:00: through [place] gram powder 00 enteral Medic al tube 2 Branch (two) times daily. famotidine 2019- Yes [id number] 20mg Take 1 [facility] 20 mg 0-20 tablet by ity of tablet 00:00: mouth 2 [place] (two) Medical times Branch daily. lisinopriL 2019- Yes [id number] 40mg Take 1 [facility] 40 mg 0-20 tablet by ity of tablet 00:00: mouth [place] 00 daily. [facility] Branch atorvastati 2019-03 Yes [id number] 40mg Take 1 [facility] n 40 mg 0-20 tablet ity of tablet 00:00: through [place] 00 enteral Medical tube at Branch bedtime. risperiDONE 2020- Yes [id number] .5mg Take 1 [facility] 0.5 mg 0-20 tablet ity of tablet 00:00: through [place] enteral Medical tube 2 Branch (two) times daily. Polyethylen 2020- Yes [id number] 17g Take 1 [facility] e Glycol 0-20 Packet ity of 3350 17 00:00: through [place] gram powder 00 enteral Medic al tube 2 Branch (two) times daily. famotidine 2019- Yes [id number] 20mg Take 1 [facility] 20 mg 0-20 tablet by ity of tablet 00:00: mouth 2 [place] (two) Medical times Branch daily. lisinopriL 2019- Yes [id number] 40mg Take 1 [facility] 40 mg 0-20 tablet by ity of tablet 00:00: mouth [place] 00 daily. Medical Branch atorvastati 2019- Yes [id number] 40mg Take 1 [facility] n 40 mg 0-20 tablet ity of tablet 00:00: through [place] enteral Medical tube at Branch bedtime. risperiDONE 2019- Yes [id number] .5mg Take 1 [facility] 0.5 mg 0-20 tablet ity of tablet 00:00: through [place] enteral Medical tube 2 Branch (two) times daily. Polyethylen 2019- Yes [id number] 17g Take 1 [facility] e Glycol 0-20 Packet ity of 3350 17 00:00: through [place] gram powder 00 enteral Medic al tube 2 Branch (two) times daily. famotidine 2019- Yes [id number] 20mg Take 1 [facility] 20 mg 0-20 tablet by ity of tablet 00:00: mouth 2 [place] (two) Medical times Branch daily. lisinopriL 2019- Yes [id number] 40mg Take 1 [facility] 40 mg 0-20 tablet by ity of tablet 00:00: mouth [place] 00 daily. Medical Branch atorvastati 2019- Yes [id number] 40mg Take 1 [facility] n 40 mg 0-20 tablet ity of tablet 00:00: through [place] enteral Medical tube at Branch bedtime. risperiDONE 2020- Yes [id number] .5mg Take 1 [facility] 0.5 mg 0-20 tablet ity of tablet 00:00: through [place] enteral Medical tube 2 Branch (two) times daily. Polyethylen 2020- Yes [id number] 17g Take 1 [facility] e Glycol 0-20 Packet ity of 3350 17 00:00: through [place] gram powder 00 enteral Medic al tube 2 Branch (two) times daily. famotidine 2019- Yes [id number] 20mg Take 1 [facility] 20 mg 0-20 tablet by ity of tablet 00:00: mouth 2 [place] (two) Medical times Branch daily. lisinopriL 2019- Yes [id number] 40mg Take 1 [facility] 40 mg 0-20 tablet by ity of tablet 00:00: mouth [place] 00 daily. Medical Branch atorvastati 2019- Yes [id number] 40mg Take 1 [facility] n 40 mg 0-20 tablet ity of tablet 00:00: through [place] enteral Medical tube at Branch bedtime. risperiDONE 2019- Yes [id number] .5mg Take 1 [facility] 0.5 mg 0-20 tablet ity of tablet 00:00: through [place] enteral Medical tube 2 Branch (two) times daily. Polyethylen 2019- Yes [id number] 17g Take 1 [facility] e Glycol 0-20 Packet ity of 3350 17 00:00: through [place] gram powder 00 enteral Medic al tube 2 Branch (two) times daily. famotidine 2019- Yes [id number] 20mg Take 1 [facility] 20 mg 0-20 tablet by ity of tablet 00:00: mouth 2 [place] (two) Medical times [place] daily. lisinopriL 2019- Yes [id number] 40mg Take 1 [facility] 40 mg 0-20 tablet by ity of tablet 00:00: mouth [place] 00 daily. Medical Branch atorvastati 2019- Yes [id number] 40mg Take 1 [facility] n 40 mg 0-20 tablet ity of tablet 00:00: through [place] enteral Medical tube at Branch bedtime. risperiDONE 2019- Yes [id number] .5mg Take 1 [facility] 0.5 mg 0-20 tablet ity of tablet 00:00: through [place] enteral Medical tube 2 Branch (two) times daily. Polyethylen 2020- Yes [id number] 17g Take 1 [facility] e Glycol 0-20 Packet ity of 3350 17 00:00: through [place] gram powder 00 enteral Medic al tube 2 Branch (two) times daily. famotidine 2019- Yes [id number] 20mg Take 1 [facility] 20 mg 0-20 tablet by ity of tablet 00:00: mouth 2 (two) Medical times Branch daily. lisinopriL 2020- Yes [id number] 40mg Take 1 [facility] 40 mg 0-20 tablet by ity of tablet 00:00: mouth 00 daily. Medical Branch atorvastati 2019- Yes [id number] 40mg Take 1 [facility] n 40 mg 0-20 tablet ity of tablet 00:00: through enteral Medical tube at Branch bedtime. risperiDONE 2019- Yes [id number] .5mg Take 1 [facility] 0.5 mg 0-20 tablet ity of tablet 00:00: through enteral Medical tube 2 Branch (two) times daily. Polyethylen 2019- Yes [id number] 17g Take 1 [facility] e Glycol 0-20 Packet ity of 3350 17 00:00: through [place] gram powder 00 enteral Medic al tube 2 Branch (two) times daily. famotidine 2019- Yes [id number] 20mg Take 1 [facility] 20 mg 0-20 tablet by ity of tablet 00:00: mouth 2 [place] (two) Medical times Branch daily. lisinopriL 2019- Yes [id number] 40mg Take 1 [facility] 40 mg 0-20 tablet by ity of tablet 00:00: mouth [place] 00 daily. Medical Branch atorvastati 2019-03 Yes [id number] 40mg Take 1 [facility] n 40 mg 0-20 tablet ity of tablet 00:00: through enteral Medical tube at Branch bedtime. risperiDONE 2019- Yes [id number] .5mg Take 1 [facility] 0.5 mg 0-20 tablet ity of tablet 00:00: through [place] enteral Medical tube 2 Branch (two) times daily. Polyethylen 2020- Yes [id number] 17g Take 1 [facility] e Glycol 0-20 Packet ity of 3350 17 00:00: through [place] gram powder 00 enteral Medic al tube 2 Branch (two) times daily. famotidine 2019- Yes [id number] 20mg Take 1 [facility] 20 mg 0-20 tablet by ity of tablet 00:00: mouth 2 [place] (two) Medical times Branch daily. lisinopriL 2019- Yes [id number] 40mg Take 1 [facility] 40 mg 0-20 tablet by ity of tablet 00:00: mouth 00 daily. Medical Branch atorvastati 2019- Yes [id number] 40mg Take 1 [facility] n 40 mg 0-20 tablet ity of tablet 00:00: through [place] 00 enteral Medical tube at Branch bedtime. risperiDONE 2020- Yes [id number] .5mg Take 1 [facility] 0.5 mg 0-20 tablet ity of tablet 00:00: through [place] enteral Medical tube 2 Branch (two) times daily. Polyethylen 2019- Yes [id number] 17g Take 1 [facility] e Glycol 0-20 Packet ity of 3350 17 00:00: through [place] gram powder 00 enteral Medic al tube 2 Branch (two) times daily. famotidine 2019- Yes [id number] 20mg Take 1 [facility] 20 mg 0-20 tablet by ity of tablet 00:00: mouth 2 [place] (two) Medical times Branch daily. lisinopriL 2019- Yes [id number] 40mg Take 1 [facility] 40 mg 0-20 tablet by ity of tablet 00:00: mouth [place] 00 daily. Medical Branch atorvastati 2019-03 Yes [id number] 40mg Take 1 [facility] n 40 mg 0-20 tablet ity of tablet 00:00: through [place] enteral Medical tube at Branch bedtime. risperiDONE 2019- Yes [id number] .5mg Take 1 [facility] 0.5 mg 0-20 tablet ity of tablet 00:00: through [place] enteral Medical tube 2 Branch (two) times daily. Polyethylen 2019- Yes [id number] 17g Take 1 [facility] e Glycol 0-20 Packet ity of 3350 17 00:00: through [place] gram powder 00 enteral Medic al tube 2 Branch (two) times daily. famotidine 2019- Yes [id number] 20mg Take 1 [facility] 20 mg 0-20 tablet by ity of tablet 00:00: mouth 2 [place] (two) Medical times Branch daily. lisinopriL 2019- Yes [id number] 40mg Take 1 [facility] 40 mg 0-20 tablet by ity of tablet 00:00: mouth [place] 00 daily. Medical Branch atorvastati 2019- Yes [id number] 40mg Take 1 [facility] n 40 mg 0-20 tablet ity of tablet 00:00: through enteral Medical tube at Branch bedtime. risperiDONE 2019- Yes [id number] .5mg Take 1 [facility] 0.5 mg 0-20 tablet ity of tablet 00:00: through enteral Medical tube 2 Branch (two) times daily. Polyethylen 2020- Yes [id number] 17g Take 1 [facility] e Glycol 0-20 Packet ity of 3350 17 00:00: through [place] gram powder enteral Medic al tube 2 Branch (two) times daily. famotidine 2019- Yes [id number] 20mg Take 1 [facility] 20 mg 0-20 tablet by ity of tablet 00:00: mouth 2 (two) Medical times Branch daily. lisinopriL 2019- Yes [id number] 40mg Take 1 [facility] 40 mg 0-20 tablet by ity of tablet 00:00: mouth [place] 00 daily. Medical Branch atorvastati 2019-03 Yes [id number] 40mg Take 1 [facility] n 40 mg 0-20 tablet ity of tablet 00:00: through [place] enteral Medical tube at Branch bedtime. risperiDONE 2019- Yes [id number] .5mg Take 1 [facility] 0.5 mg 0-20 tablet ity of tablet 00:00: through [place] enteral Medical tube 2 Branch (two) times daily. Polyethylen 2019- Yes [id number] 17g Take 1 [facility] e Glycol 0-20 Packet ity of 3350 17 00:00: through [place] gram powder enteral Medic al tube 2 Branch (two) times daily. famotidine 2019- Yes [id number] 20mg Take 1 [facility] 20 mg 0-20 tablet by ity of tablet 00:00: mouth 2 [place] (two) Medical times Branch daily. lisinopriL 2019- Yes [id number] 40mg Take 1 [facility] 40 mg 0-20 tablet by ity of tablet 00:00: mouth [place] daily. Medical Branch atorvastati 2019- Yes [id number] 40mg Take 1 [facility] n 40 mg 0-20 tablet ity of tablet 00:00: through [place] enteral Medical tube at Branch bedtime. risperiDONE 2020-1 Yes [id number] .5mg Take 1 [facility] 0.5 mg 0-20 tablet ity of tablet 00:00: through [place] enteral Medical tube 2 Branch (two) times daily. Polyethylen 2019- Yes [id number] 17g Take 1 [facility] e Glycol 0-20 Packet ity of 3350 17 00:00: through [place] gram powder 00 enteral Medic al tube 2 Branch (two) times daily. famotidine 2020-1 Yes [id number] 20mg Take 1 [facility] 20 mg 0-20 tablet by ity of tablet 00:00: mouth 2 [place] (two) Medical times Branch daily. lisinopriL 2020-1 Yes [id number] 40mg Take 1 [facility] 40 mg 0-20 tablet by ity of tablet 00:00: mouth [place] 00 daily. Medical Branch atorvastati 2019- Yes [id number] 40mg Take 1 [facility] n 40 mg 0-20 tablet ity of tablet 00:00: through [place] enteral Medical tube at Branch bedtime. risperiDONE 2020- Yes [id number] .5mg Take 1 [facility] 0.5 mg 0-20 tablet ity of tablet 00:00: through [place] enteral Medical tube 2 Branch (two) times daily. Polyethylen 2020-1 Yes [id number] 17g Take 1 [facility] e Glycol 0-20 Packet ity of 3350 17 00:00: through [place] gram powder 00 enteral Medic al tube 2 Branch (two) times daily. famotidine 2019- Yes [id number] 20mg Take 1 [facility] 20 mg 0-20 tablet by ity of tablet 00:00: mouth 2 [place] (two) Medical times Branch daily. lisinopriL 2019- Yes [id number] 40mg Take 1 [facility] 40 mg 0-20 tablet by ity of tablet 00:00: mouth [place] 00 daily. Medical Branch atorvastati 2019- Yes [id number] 40mg Take 1 [facility] n 40 mg 0-20 tablet ity of tablet 00:00: through [place] enteral Medical tube at Branch bedtime. risperiDONE 2020-1 Yes [id number] .5mg Take 1 [facility] 0.5 mg 0-20 tablet ity of tablet 00:00: through [place] enteral Medical tube 2 Branch (two) times daily. Polyethylen 2020-1 Yes [id number] 17g Take 1 [facility] e Glycol 0-20 Packet ity of 3350 17 00:00: through [place] gram powder 00 enteral Medic al tube 2 Branch (two) times daily. famotidine 2019- Yes [id number] 20mg Take 1 [facility] 20 mg 0-20 tablet by ity of tablet 00:00: mouth 2 [place] (two) Medical times Branch daily. lisinopriL 2019-1 Yes [id number] 40mg Take 1 [facility] 40 mg 0-20 tablet by ity of tablet 00:00: mouth [place] 00 daily. Medical Branch atorvastati 2019- Yes [id number] 40mg Take 1 [facility] n 40 mg 0-20 tablet ity of tablet 00:00: through enteral Medical tube at Branch bedtime. risperiDONE 2019- Yes [id number] .5mg Take 1 [facility] 0.5 mg 0-20 tablet ity of tablet 00:00: through [place] enteral Medical tube 2 Branch (two) times daily. Polyethylen 2019- Yes [id number] 17g Take 1 [facility] e Glycol 0-20 Packet ity of 3350 17 00:00: through [place] gram powder 00 enteral Medic al tube 2 Branch (two) times daily. famotidine 2019- Yes [id number] 20mg Take 1 [facility] 20 mg 0-20 tablet by ity of tablet 00:00: mouth 2 [place] (two) Medical times Branch daily. lisinopriL 2019- Yes [id number] 40mg Take 1 [facility] 40 mg 0-20 tablet by ity of tablet 00:00: mouth [place] 00 daily. Medical Branch atorvastati 2019-03 Yes [id number] 40mg Take 1 [facility] n 40 mg 0-20 tablet ity of tablet 00:00: through [place] enteral Medical tube at Branch bedtime. risperiDONE 2019- Yes [id number] .5mg Take 1 [facility] 0.5 mg 0-20 tablet ity of tablet 00:00: through [place] enteral Medical tube 2 Branch (two) times daily. Polyethylen 2019-1 Yes [id number] 17g Take 1 [facility] e Glycol 0-20 Packet ity of 3350 17 00:00: through [place] gram powder 00 enteral Medic al tube 2 Branch (two) times daily. famotidine 2019- Yes [id number] 20mg Take 1 [facility] 20 mg 0-20 tablet by ity of tablet 00:00: mouth 2 [place] (two) Medical times Branch daily. lisinopriL 2019- Yes [id number] 40mg Take 1 [facility] 40 mg 0-20 tablet by ity of tablet 00:00: mouth [place] 00 daily. Medical Branch atorvastati 2019-03 Yes [id number] 40mg Take 1 [facility] n 40 mg 0-20 tablet ity of tablet 00:00: through enteral Medical tube at Branch bedtime. risperiDONE 2020-1 Yes [id number] .5mg Take 1 [facility] 0.5 mg 0-20 tablet ity of tablet 00:00: through [place] enteral Medical tube 2 Branch (two) times daily. Polyethylen 2020-1 Yes [id number] 17g Take 1 [facility] e Glycol 0-20 Packet ity of 3350 17 00:00: through [place] gram powder 00 enteral Medic al tube 2 Branch (two) times daily. famotidine 2020- Yes [id number] 20mg Take 1 [facility] 20 mg 0-20 tablet by ity of tablet 00:00: mouth 2 [place] (two) Medical times Branch daily. lisinopriL 2020- Yes [id number] 40mg Take 1 [facility] 40 mg 0-20 tablet by ity of tablet 00:00: mouth [place] 00 daily. Medical Branch atorvastati 2019- Yes [id number] 40mg Take 1 [facility] n 40 mg 0-20 tablet ity of tablet 00:00: through [place] enteral Medical tube at Branch bedtime. risperiDONE 2020-1 Yes [id number] .5mg Take 1 [facility] 0.5 mg 0-20 tablet ity of tablet 00:00: through [place] enteral Medical tube 2 Branch (two) times daily. Polyethylen 2020-1 Yes [id number] 17g Take 1 [facility] e Glycol 0-20 Packet ity of 3350 17 00:00: through [place] gram powder 00 enteral Medic al tube 2 Branch (two) times daily. famotidine 2020-1 Yes [id number] 20mg Take 1 [facility] 20 mg 0-20 tablet by ity of tablet 00:00: mouth 2 [place] (two) Medical times Branch daily. lisinopriL 2020- Yes [id number] 40mg Take 1 [facility] 40 mg 0-20 tablet by ity of tablet 00:00: mouth [place] 00 daily. Medical Branch atorvastati 2019- Yes [id number] 40mg Take 1 [facility] n 40 mg 0-20 tablet ity of tablet 00:00: through [place] enteral Medical tube at Branch bedtime. risperiDONE 2020-1 Yes [id number] .5mg Take 1 [facility] 0.5 mg 0-20 tablet ity of tablet 00:00: through [place] enteral Medical tube 2 Branch (two) times daily. Polyethylen 2020-1 Yes [id number] 17g Take 1 [facility] e Glycol 0-20 Packet ity of 3350 17 00:00: through [place] gram powder 00 enteral Medic al tube 2 Branch (two) times daily. famotidine 2019- Yes [id number] 20mg Take 1 [facility] 20 mg 0-20 tablet by ity of tablet 00:00: mouth 2 [place] (two) Medical times Branch daily. lisinopriL 2019- Yes [id number] 40mg Take 1 [facility] 40 mg 0-20 tablet by ity of tablet 00:00: mouth [place] 00 daily. Medical Branch atorvastati 2019-03 Yes [id number] 40mg Take 1 [facility] n 40 mg 0-20 tablet ity of tablet 00:00: through [place] enteral Medical tube at Branch bedtime. risperiDONE 2019-03 Yes [id number] .5mg Take 1 [facility] 0.5 mg 0-20 tablet ity of tablet 00:00: through [place] enteral Medical tube 2 Branch (two) times daily. Polyethylen 2019-03 Yes [id number] 17g Take 1 [facility] e Glycol 0-20 Packet ity of 3350 17 00:00: through [place] gram powder enteral Medic al tube 2 Branch (two) times daily. famotidine 2019-03 Yes [id number] 20mg Take 1 [facility] 20 mg 0-20 tablet by ity of tablet 00:00: mouth 2 [place] (two) Medical times Branch daily. lisinopriL 2019-03 Yes [id number] 40mg Take 1 [facility] 40 mg 0-20 tablet by ity of tablet 00:00: mouth [place] 00 daily. Medical Branch atorvastati 2019-03 Yes [id number] 40mg Take 1 [facility] n 40 mg 0-20 tablet ity of tablet 00:00: through [place] enteral Medical tube at Branch bedtime. risperiDONE 2019- Yes [id number] .5mg Take 1 [facility] 0.5 mg 0-20 tablet ity of tablet 00:00: through [place] enteral Medical tube 2 Branch (two) times daily. Polyethylen 2019- Yes [id number] 17g Take 1 [facility] e Glycol 0-20 Packet ity of 3350 17 00:00: through [place] gram powder 00 enteral Medic al tube 2 Branch (two) times daily. famotidine 2019- Yes [id number] 20mg Take 1 [facility] 20 mg 0-20 tablet by ity of tablet 00:00: mouth 2 (two) Medical times Branch daily. lisinopriL 2019- Yes [id number] 40mg Take 1 [facility] 40 mg 0-20 tablet by ity of tablet 00:00: mouth [place] 00 daily. Medical Branch atorvastati 2019- Yes [id number] 40mg Take 1 [facility] n 40 mg 0-20 tablet ity of tablet 00:00: through enteral Medical tube at Branch bedtime. risperiDONE 2019- Yes [id number] .5mg Take 1 [facility] 0.5 mg 0-20 tablet ity of tablet 00:00: through [place] enteral Medical tube 2 Branch (two) times daily. Polyethylen 2019- Yes [id number] 17g Take 1 [facility] e Glycol 0-20 Packet ity of 3350 17 00:00: through [place] gram powder 00 enteral Medic al tube 2 Branch (two) times daily. famotidine 2019- Yes [id number] 20mg Take 1 [facility] 20 mg 0-20 tablet by ity of tablet 00:00: mouth 2 [place] (two) Medical times Branch daily. lisinopriL 2019-03 Yes [id number] 40mg Take 1 [facility] 40 mg 0-20 tablet by ity of tablet 00:00: mouth [place] 00 daily. Medical Branch atorvastati 2019-03 Yes [id number] 40mg Take 1 [facility] n 40 mg 0-20 tablet ity of tablet 00:00: through [place] enteral Medical tube at [place] bedtime. risperiDONE 2019- Yes [id number] .5mg Take 1 [facility] 0.5 mg 0-20 tablet ity of tablet 00:00: through [place] enteral Medical tube 2 Branch (two) times daily. Polyethylen 2019- Yes [id number] 17g Take 1 [facility] e Glycol 0-20 Packet ity of 3350 17 00:00: through [place] gram powder 00 enteral Medic al tube 2 Branch (two) times daily. famotidine 2019- Yes [id number] 20mg Take 1 [facility] 20 mg 0-20 tablet by ity of tablet 00:00: mouth 2 [place] (two) Medical times Branch daily. lisinopriL 2019- Yes [id number] 40mg Take 1 [facility] 40 mg 0-20 tablet by ity of tablet 00:00: mouth [place] 00 daily. Medical Branch atorvastati 2019-03- No [id number] 40mg Take 1 [facility] n 40 mg 0-20 11-23 tablet ity of tablet 00:00: 00:00 through [place] 00 :00 enteral Medical tube at Branch bedtime. risperiDONE 2019-03- No [id number] .5mg Take 1 [facility] 0.5 mg 0-20 11-23 tablet ity of tablet 00:00: 00:00 through [place] 00 :00 enteral Medical tube 2 Branch (two) times daily. Polyethylen 2019-03- No [id number] 17g Take 1 [facility] e Glycol 0-20 11-23 Packet ity of 3350 17 00:00: 00:00 through [place] gram powder 00 :00 enteral Medic al tube 2 Branch (two) times daily. famotidine 2019-03- No [id number] 20mg Take 1 [facility] 20 mg 0-20 11-23 tablet by ity of tablet 00:00: 00:00 mouth 2 [place] 00 :00 (two) Medical times Branch daily. lisinopriL 2019-03- No [id number] 40mg Take 1 [facility] 40 mg 0-20 11-23 tablet by ity of tablet 00:00: 00:00 mouth [place] 00 :00 daily. Medical Branch atorvasti 2019-03- No [id number] 40mg Take 1 [facility] n 40 mg 0-20 11-23 tablet ity of tablet 00:00: 00:00 through [place] 00 :00 enteral Medical tube at Branch bedtime. risperiDONE 2019-03- No [id number] .5mg Take 1 [facility] 0.5 mg 0-20 11-23 tablet ity of tablet 00:00: 00:00 through [place] 00 :00 enteral Medical tube 2 Branch (two) times daily. Polyethylen 2019-03- No [id number] 17g Take 1 [facility] e Glycol 0-20 11-23 Packet ity of 3350 17 00:00: 00:00 through [place] gram powder 00 :00 enteral Medic al tube 2 Branch (two) times daily. famotidine 2019-03- No [id number] 20mg Take 1 [facility] 20 mg 0-20 11-23 tablet by ity of tablet 00:00: 00:00 mouth 2 [place] 00 :00 (two) Medical times Branch daily. lisinopriL 2019-03- No [id number] 40mg Take 1 [facility] 40 mg 0-20 11-23 tablet by ity of tablet 00:00: 00:00 mouth [place] 00 :00 daily. [facility] No [id number] 40mg Take 1 [facility] n 40 mg 0-20 11-23 tablet ity of tablet 00:00: 00:00 through [place] 00 :00 enteral Medical tube at Branch bedtime. risperiDONE 2019-03- No [id number] .5mg Take 1 [facility] 0.5 mg 0-20 11-23 tablet ity of tablet 00:00: 00:00 through [place] 00 :00 enteral Medical tube 2 Branch (two) times daily. Polyethylen 2019-03- No [id number] 17g Take 1 [facility] e Glycol 0-20 11-23 Packet ity of 3350 17 00:00: 00:00 through [place] gram powder 00 :00 enteral Medic al tube 2 Branch (two) times daily. famotidine 2019-03- No [id number] 20mg Take 1 [facility] 20 mg 0-20 11-23 tablet by ity of tablet 00:00: 00:00 mouth 2 [place] 00 :00 (two) Medical times Branch daily. lisinopriL 2019-03- No [id number] 40mg Take 1 [facility] 40 mg 0-20 11-23 tablet by ity of tablet 00:00: 00:00 mouth [place] 00 :[facility] daily. [facility] No [id number] 40mg Take 1 [facility] n 40 mg 0-20 11-23 tablet ity of tablet 00:00: 00:00 through [place] 00 :00 enteral Medical tube at Branch bedtime. risperiDONE 2019-03- No [id number] .5mg Take 1 [facility] 0.5 mg 0-20 11-23 tablet ity of tablet 00:00: 00:00 through [place] 00 :00 enteral Medical tube 2 Branch (two) times daily. Polyethylen 2019-03- No [id number] 17g Take 1 [facility] e Glycol 0-20 11-23 Packet ity of 3350 17 00:00: 00:00 through [place] gram powder 00 :00 enteral Medic al tube 2 Branch (two) times daily. famotidine 2019-03- No [id number] 20mg Take 1 [facility] 20 mg 0-20 11-23 tablet by ity of tablet 00:00: 00:00 mouth 2 [place] 00 :00 (two) Medical times Branch daily. lisinopriL 2019-03- No [id number] 40mg Take 1 [facility] 40 mg 0-20 11-23 tablet by ity of tablet 00:00: 00:00 mouth [place] 00 :00 daily. Medical Branch levETIRAcet 2019-03- No [id number] 750mg Take 7.5 [facility] am 100 0-20 10-28 mL through ity of mg/mL oral 00:00: 00:00 enteral [place] as solution 00 :00 tube 2 Medical (two) Branch times daily. risperiDONE 2019-03 2020- No [id number] .5mg Take 1 [facility] 0.5 mg 0-20 10-20 tablet ity of tablet 00:00: 00:00 through [place] 00 :00 enteral Medical tube 2 Branch (two) times daily for 31 days. lisinopriL 2019-03- No [id number] 20mg Take 1 [facility] 20 mg 0-20 10-20 tablet by ity of tablet 00:00: 00:00 mouth 2 [place] 00 :00 (two) Medical times Branch daily. Polyethylen 2019-03- No [id number] 17g Take 1 [facility] e Glycol 0-20 10-20 Packet ity of 3350 17 00:00: 00:00 through [place] gram powder 00 :00 enteral Medic al tube 2 Branch (two) times daily. famotidine 2019-03- No [id number] 20mg Take 2.5 [facility] 40 mg/5 mL 0-20 10-20 mL through it y of (8 mg/mL) 00:00: 00:00 [place]eral [place] suspension 00 :00 tube 2 Medical (two) Branch times daily for 31 days. lisinopriL 2019-03 2020- No [id number] 40mg Take 1 [facility] 40 mg 0-20 10-20 tablet by ity of tablet 00:00: 00:00 mouth [place] 00 :00 daily. Medical Branch clopidogreL 2019-03 Yes 75mg 75 mg, Univ ers (PLAVIX) 0-18 Enteral, ity of tablet 75 14:00: DAILY, [place] mg 00 First dose Medical on [place] Branch 01/01/20 at 0900, Until Discontinu ed, Routine amLODIPine 2019-03 Yes 10mg 10 mg, Unive rs (NORVASC) 0-17 Enteral, ity of tablet 10 14:00: DAILY, [place] mg 00 First dose Medical (after Branch last modificati on) on Thu12/31/19 at 0900, Until Discontinu ed, Routine iohexoL 2019-03- No 50mL 50 mL, Univers (OMNIPAQUE 0-17 10-17 Injection, it y of 300-50 mL)) 00:15: 00:15 ONCE, 1 [place] injection 00 :00 dose, Thu Medic al 50 mL 12/30/19 Branch at 1915, Routine FENTanyl PF 2019-03- No Slow IV [place] (SUBLIMAZE 0-16 10-16 Push, PRN, it y of (PF)) 23:13: 23:13 Starting [place] injection 27 :27 Thu Medical 12/30/19 Branch at 1813, Until Thu12/30/19 at 1813, Routine midazolam 2019-03- No IV Push, Uni vers (VERSED) 0-16 10-16 PRN, ity of injection 23:13: 23:13 Starting [place] as 16 :16 Thu Medical 12/30/19 Branch at 1813, Until Thu12/30/19 at 1813, Routine glucagon 2019-03- No Intravenou [place] (GLUCAGEN 0-16 10-16 s, PRN, ity of DIAGNOSTIC 23:12: 23:12 [place] KIT) 41 :41 Fri Medical injection 12/30/19 Branch at 1812, Until Thu12/30/19 at 1812, Routine risperiDONE 2019-03 Yes .5mg 0.5 mg, Uni vers (RISPERDAL) 0-16 Enteral, ity of tablet 0.5 13:00: BID, First [place] mg 00 dose Medical (after Branch last modificati on) on Thu12/30/19 at 0800, Until Discontinu ed, Routine acetylcyste 2019-03 Yes 1mL 200 mg (1 U nivers ine 0-15 mL), ity of (MUCOMYST) 23:00: Inhalation [place] 200 mg/mL 00 , Q6H, Medical (20 %) First dose Branch solution on [place] 200 mg 12/29/19 at 1800, Until Discontinu ed, Routine glycopyrrol 2019-03- No .1mg 0.1 mg, Un [place] ate 0-15 10-15 Slow IV ity of (ROBINUL) 22:45: 22:15 Push, [place] injection 00 :00 ONCE, 1 Medical 0.1 mg dose, [place] Branch 12/29/19 at 1745, Routine Saline 2020- Yes 6mL 6 mL, Univers Bubble 0-15 Injection, ity of Study 21:11: SEE-INSTRU [place] 28 CTIONS, 2 Medical doses, Branch Starting [facility] 12/29/19 at 1611, Until Discontinu ed, Routine Saline 2019- Yes 6mL 6 mL, Univers Bubble 0-15 Injection, ity of Study 21:11: SEE-INSTRU [place] 27 CTIONS, 2 Medical doses, Branch Starting [facility] 12/29/19 at 1611, Until Discontinu ed, Routine ipratropium 2019-03 2020- No 3mL 3 mL, Univ ers -albuteroL 0-15 10-16 Inhalation it y of (DUONEB) 21:00: 02:32 , QID, [place] 0.5 mg-3 00 :45 First dose Medic al mg(2.5 mg on [facility] Branch base)/3 mL 12/29/19 nebulizer at 1600, solution 3 Until mL Discontinu ed, Routine piperacilli 2019-03 2020- No 3.375g 3.375 g, Univers n-tazobacta 0-15 10-19 IV ity of m (ZOSYN) 18:00: 18:08 Piggyback, [place] 3.375 g in 00 :52 Q6H ABX, Medic al NaCl 0.9% First dose Bran ch (NS) 100 mL on [facility] MINI-BAG 12/29/19 at 1300, Until Discontinu ed, 100 mL
R vivienne for Anti-Infec tive: Empiric Therapy for Suspected Infection< br>Empiric Therapy Site: Respirator y
Durat ion of therapy: 72 hours chlorhexidi 2019- Yes 15mL 15 mL, Univ ers ne 0-15 Oral ity of (PERIDEX) 17:00: ([place] 0.12 % 00 Spit Out), Medical mouthwash Q6H, First Bran ch 15 mL dose on [facility] 12/29/19 at 1200, Until Discontinu ed, Routine ipratropium 2019-03 Yes 3mL 3 mL, Unive rs -albuteroL 0-15 Inhalation ity of (DUONEB) 05:00: , Q6H ABX, [place] 0.5 mg-3 00 First dose Medic al mg(2.5 mg (after Branch base)/3 mL last nebulizer modificati solution 3 on) on [place] mL 12/29/19 at 0000, Until Discontinu ed, Routine levETIRAcet 2019-03 Yes 750mg 750 mg, Un shane am (KEPPRA) 0-15 Enteral, ity of 100 mg/mL 01:00: BID, First [place] oral 00 dose on Medical solution [facility] Branch 750 mg 12/28/19 at 2000, Until Discontinu ed, Routine risperiDONE 2019-03- No 1mg 1 mg, Univ ers (RISPERDAL) 0-15 10-16 Enteral, ity of tablet 1 mg 01:00: 11:17 BID, First [place] 00 :47 dose Medical (after Branch last modificati on) on Thu12/28/19 at 2000, Until Discontinu ed, Routine ipratropium 2019-03- No .5mg 0.5 mg, Un shane (ATROVENT) 0-14 -15 Inhalation it y of 0.02 % 17:00: 17:04 , QID, [place] nebulizer 00 :12 First dose Medi bishnu solution (after Branch 0.5 mg last modificati on) on Thu12/28/19 at 1200, Until Discontinu ed, Routine scopolamine 2019-03- No 1.5mg 1.5 mg, U nivers transdermal 0-22 Topical, ity of (TRANSDERM- 15:00: 18:36 Administer [place] SCOP) patch 00 :39 over 72 Medic al 1.5 mg Hours, Branch Q72H, First dose on Thu12/28/19 at 1000, Until Discontinu ed, Routine KCL 20 2019-03- No 40meq 40 mEq, Univer s mEq/15 mL 0-14 10-14 Enteral, ity o f solution 40 13:30: 13:08 ONCE, 1 [place] mEq 00 :00 dose, [facility] Medical 12/28/19 Branch at 0830, Routine NaCl 0.9% 2019-03- No 1000mL at 100 Uni vers (NS) IV 0-14 10-15 mL/hr, IV ity of infusion 08:30: 17:04 Infusion, [place] 1,000 mL 00 :22 CONTINUOUS Medic al , Starting Branch 12/28/19 at 0330, Until [place] 12/29/19 at 1204, Routine Polyethylen 2019-03 Yes 17g 17 g, Unive rs e Glycol 0-14 Enteral, ity of 3350 01:00: BID, First [place] (MIRALAX) 00 dose on Medical powder 17 g [facility] 12/27/19 at 2000, Until Discontinu ed, Routine ipratropium 2019-03 2020- No .5mg 0.5 mg, Un shane (ATROVENT) 012-27 Inhalation it y of 0.02 % 01:00: 14:37 , TID, [place] nebulizer 00 :05 First dose Medi bishnu solution on [facility] 0.5 mg 12/27/19 at 2000, Until Discontinu ed, Routine sennosides- 2019-03 Yes 1{tbl} 1 tablet, Univers docusate 0 Enteral, ity of sodium 18:45: BID, First [place] (SENOKOT-S) dose on Medic al 8.6-50 mg [facility] per tablet 12/27/19 1 tablet at 1345, Until Discontinu ed, Routine amLODIPine 2019-03 2020- No 5mg 5 mg, Unive rs (NORVASC) 017 Enteral, ity o f tablet 5 mg 14:00: 11:57 DAILY, [place] 00 :17 First dose Medical on [facility] 12/27/19 at 0900, Until Discontinu ed, Routine LORazepam 2019-03 2020- No 2mg 2 mg, Slow U nivers (ATIVAN) 012-26 IV Push, ity of injection 2 13:30: 13:29 ONCE, 1 [place] mg 00 :00 dose, [facility] 12/27/19 Branch at 0830, Routine magnesium 2019-03 2020- No 2g 2 g, IV Univ ers sulfate in 012-26 Piggyback, it y of water 2 13:15: 12:42 ONCE, 1 [place] gram/50 mL 00 :00 dose, [facility] Medi bishnu (4 %) 12/27/19 Branch infusion 2 at 0815, g Routine QUEtiapine 2019-03- No 25mg 25 mg, Univ ers (SEROQUEL) 0-13 10-13 Enteral, ity of tablet 25 09:30: 08:29 ONCE, 1 [place] mg 00 :00 dose, [facility] 12/27/19 Branch at 0430, Routine lisinopriL 2019-03- No 10mg 10 mg, [facility] ers (PRINIVIL,Z 0-13 - Enteral, ity of ESTRIL) 01:00: 12:46 BID, First [place] tablet 10 00 :12 dose Medical mg (after Branch last modificati on) on Thu12/26/19 at 1999, Until Discontinu ed, Routine risperiDONE 2019-03 No 2mg 2 mg, Univ ers (RISPERDAL) 0-14 Enteral, ity of tablet 2 mg 01:00: 13:55 BID, First [place] 00 :41 dose Medical (after Branch last modificati on) on Thu12/26/19 at 1999, Until Discontinu ed, Routine hydralAZINE 2019-03 Yes 10mg 10 mg, Univ ers (APRESOLINE 0-12 Slow IV ity o f ) injection 22:10: Push, [place] 10 mg 44 Q6HPRN, Medical Starting Branch [facility] 12/26/19 at 1710, Until Discontinu ed, Routine, SBP > 160
Ind ication: Hypertensi ve Emergency LORazepam 2019-03- No 1mg 1 mg, Slow U nivers (ATIVAN) 0-12 10-12 IV Push, ity of injection 1 21:45: 20:49 ONCE, 1 [place] mg 00 :00 dose, [facility] 12/26/19 Branch at 1645, Routine LORazepam 2019-03- No 2mg 2 mg, Slow U nivers (ATIVAN) 0-12 10-12 IV Push, ity of injection 2 15:15: 15:25 ONCE, 1 [place] mg 00 :00 dose, [facility] 12/26/19 Branch at 1015, Routine clopidogreL 2019-03- No 75mg 75 mg, Uni vers (PLAVIX) 0-12 10-13 Enteral, ity of tablet 75 14:00: 22:55 DAILY, [place] mg 00 :53 First dose Medical (after Branch last modificati on) on [facility] 12/26/19 at 0900, Until Discontinu ed, Routine lisinopriL 2019-03- No 5mg 5 mg, Unive rs (PRINIVIL,Z 012 10-12 Enteral, ity of ESTRIL) 12:15: 19:54 DAILY, [place] tablet 5 mg 00 :51 First dose Me dical on [facility] 12/26/19 at 0715, Until Discontinu ed, Routine levETIRAcet 2019-03- No 750mg 750 mg, IV Univers am (KEPPRA) 012 10-14 Infusion, it y of 750 mg in 01:00: 14:14 Q12H, [place] NaCl 0.9% 00 :01 First dose Medi bishnu (NS) 100 mL (after Branch IV infusion last reorder) on [place] 12/25/19 at 2000, Until Discontinu ed, 100 mL levETIRAcet 2019-03- No 1000mg 1,000 mg, Univers am (KEPPRA) 011 IV ity of in NACL 14:15: 13:31 Infusion, [place] (ISO-OS) 00 :00 ONCE, 1 Medical 1,000 dose, [facility] mg/100 mL 12/25/19 RTU at 0915, 100 mL LORazepam 2019-03- No 2mg 2 mg, Slow U nivers (ATIVAN) 012-24 IV Push, ity of injection 2 14:15: 13:15 ONCE, 1 [place] mg 00 :00 dose, [facility] 12/25/19 Branch at 0915, Routine aspirin EC 2019-03 Yes 81mg 81 mg, Unive rs tablet 81 011 Enteral, ity of mg 14:00: DAILY, [place] 00 First dose Medical on [facility] 12/25/19 at 0900, Until Discontinu ed, Routine clopidogreL 2019-03- No 75mg 75 mg, Uni vers (PLAVIX) 012 Oral, ity of tablet 75 14:00: 12:12 DAILY, [place] mg 00 :59 First dose Medical on [facility] 12/25/19 at 0900, Until Discontinu ed, Routine risperiDONE 2019-03- No 2mg 2 mg, Univ ers (RISPERDAL) 0-12 Enteral, ity of tablet 2 mg 14:00: 22:14 QAM, First [place] 00 :05 dose on Medical [place] [facility] 12/25/19 at 0900, Until Discontinu ed, Routine niCARdipine 2019-03 2020- No 2.5mg/h 2.5-15 Univers (CARDENE 0-11 10-14 mg/hr ity of I.V.) 40 mg 13:02: 14:14 (12.5-75 [place] in 200 mL 45 :18 mL/hr), IV Medi bishnu 0.83% Infusion, Branch Sodium TITRATE, Chloride SBP goal - (RTU) 120-160, infusion Starting [place] 12/25/19 at 0802
In itiate infusion at 2.5 mg/hr.&nbs p; Ti trate by 2.5 mg/hr every 5 minutes to 15 minutes as needed to achieve and maintain goal blood pressure. Maximum dose = 15 mg/hr. If goal not maintained at maximum allowed dose, contact prescriber .
atorvastati 2019-03 Yes 40mg 40 mg, Univ ers n (LIPITOR) 0-11 Enteral, ity of tablet 40 02:00: QHS, First [place] mg 00 dose on Medical Sat Branch 12/24/19 at 2100, Until Discontinu ed, Routine famotidine 2019-03 Yes 20mg 20 mg, Unive rs (PEPCID) 40 0-11 Enteral, ity of mg/5 mL (8 01:00: BID, First [place] mg/mL) 00 dose on Medical suspension Sat Branch 20 mg 12/24/19 at 2000, Until Discontinu ed, Routine heparin 2019-03 Yes 5000U 5,000 Univers (porcine) 0-11 Units, ity of injection 01:00: Subcutaneo [place] 5,000 Units 00 us, Q12H, Med ical First dose Branch on 12/24/19 at 2000, Until Discontinu ed, Routine iohexol 2019-03 2020- No 100mL 100 mL, Unive rs (OMNIPAQUE 0-10 10-10 Intravenou it y of 350 22:43: 22:43 s, ONCE, 1 [place] BULK-100 00 :00 dose, Sat Medica l mL) 12/24/19 Branch injection at 1800, 100 mL Routine niCARdipine 2019-03 2020- No 2.5mg/h 2.5-15 Univers (CARDENE 0-10 10-11 mg/hr ity of I.V.) 40 mg 22:21: 13:03 (12.5-75 [place] in 200 mL 12 :27 mL/hr), IV Medi bishnu 0.83% Infusion, Branch Sodium TITRATE, Chloride SBP Goal < (RTU) 180 mmHg, infusion Starting 12/24/19 at 1721
In itiate infusion at 2.5 mg/hr.&nbs p; Ti trate by 2.5 mg/hr every 5 minutes to 15 minutes as needed to achieve and maintain goal blood pressure. Maximum dose = 15 mg/hr. If goal not maintained at maximum allowed dose, contact prescriber .
NaCl 0.9% 2019-03 No IV Univers (NS) 1000 0-12 Infusion, ity of mL + KCL 20 21:30: 14:10 at 75 [place] mEq 00 :24 mL/hr, Medical CONTINUOUS Branch , Starting 12/24/19 at 1630, Until 12/26/19 at 0910, Routine aspirin 2019-03 No 300mg 300 mg, Unive rs suppository 012-23 Rectal, ity of 300 mg 20:00: 19:41 ONCE, 1 [place] 00 :00 dose, [facility] Medical 12/24/19 Branch at 1500, GAVI LORazepam 2019-03 No .5mg 0.5 mg, Univ ers (ATIVAN) 0- Slow IV ity of injection 18:30: 17:48 Push, [place] 0.5 mg 00 :00 ONCE, 1 Medical dose, Sat Branch 12/24/19 at 1330, GAVI ketorolac 2019-03- No [id number] 30mg Uni vers (TORADOL) 012-15 ity of injection 21:30: 20:29 [place] 30 mg 00 :00 Medical Branch ketorolac 2019-03- No [id number] 30mg 30 mg, U nivers (TORADOL) 012-15 Slow IV ity of injection 21:30: 20:29 Push, [place] 30 mg 00 :00 ONCE, 1 Medical dose, Fri Branch 12/16/19 at 1630, Routine
prepared foods production team member approving Restricted medication : BEV CHAUHAN ketorolac 2019-03 2020- No [id number] 30mg Uni vers (TORADOL) 0-12-15 ity of injection 21:30: 20:29 [place] 30 mg 00 :00 Medical Branch ketorolac 2019-03 2020- No [id number] 30mg 30 mg, U nivers (TORADOL) 0-12-15 Slow IV ity of injection 21:30: 20:29 Push, [place] 30 mg 00 :00 ONCE, 1 Medical dose, Fri Branch 12/16/19 at 1630, Routine
prepared foods production team member approving Restricted medication : BEV CHAUHAN meloxicam 2019-03 Yes [id number] 7.5mg Take 1 U nivers 7.5 mg 0-02 tablet by ity of tablet 00:00: mouth [place] 00 daily. Ok Medical to take Branch 15mg daily (2 tablets) if 1 tablet does not help the pain. Take with food. meloxicam 2019-03 Yes [id number] 7.5mg Take 1 U nivers 7.5 mg 0-02 tablet by ity of tablet 00:00: mouth [place] 00 daily. Ok Medical to take Branch 15mg daily (2 tablets) if 1 tablet does not help the pain. Take with food. meloxicam 2019-03 Yes [id number] 7.5mg Take 1 U nivers 7.5 mg 0-02 tablet by ity of tablet 00:00: mouth [place] 00 daily. Ok Medical to take Branch 15mg daily (2 tablets) if 1 tablet does not help the pain. Take with food. meloxicam 2019-03 Yes [id number] 7.5mg Take 1 U nivers 7.5 mg 0-02 tablet by ity of tablet 00:00: mouth [place] 00 daily. Ok Medical to take Branch 15mg daily (2 tablets) if 1 tablet does not help the pain. Take with food. meloxicam 2019-03 2020- No [id number] 7.5mg Take 1 Univers 7.5 mg 0-02 10-20 tablet by ity of tablet 00:00: 00:00 mouth [place] 00 :00 daily. Ok Medical to take Branch 15mg daily (2 tablets) if 1 tablet does not help the pain. Take with food. metoprolol Yes [id number] 50mg Take 1 Univers succinate 9-29 tablet by ity o f XL 50 mg 24 00:00: mouth [place] hr tablet [address] [facility] simvastatin 2020-0 Yes [id number] 40mg Take 1 Univers 40 mg 9-29 tablet by ity of tablet 00:00: mouth at [place] 00 bedtime. [facility] Branch metoprolol 2020-0 Yes [id number] 50mg Take 1 Univers succinate 9-29 tablet by ity o f XL 50 mg 24 00:00: mouth [place] hr tablet 00 daily. [facility] Branch simvastatin 2020-0 Yes [id number] 40mg Take 1 Univers 40 mg 9-29 tablet by ity of tablet 00:00: mouth at [place] 00 bedtime. [facility] Branch metoprolol 2020-0 Yes [id number] 50mg Take 1 Univers succinate 9-29 tablet by ity o f XL 50 mg 24 00:00: mouth [place] hr tablet [address] [facility] simvastatin 2020-0 Yes [id number] 40mg Take 1 Univers 40 mg 9-29 tablet by ity of tablet 00:00: mouth at [place] 00 bedtime. [facility] Branch metoprolol 2020-0 Yes [id number] 50mg Take 1 Univers succinate 9-29 tablet by ity o f XL 50 mg 24 00:00: mouth [place] hr tablet [address] [facility] simvastatin 2020-0 Yes [id number] 40mg Take 1 Univers 40 mg 9-29 tablet by ity of tablet 00:00: mouth at [place] 00 bedtime. [facility] Branch metoprolol 2020-0 Yes [id number] 50mg Take 1 Univers succinate 9-29 tablet by ity o f XL 50 mg 24 00:00: mouth [place] hr tablet [address] [facility] simvastatin 2020-0 Yes [id number] 40mg Take 1 Univers 40 mg 9-29 tablet by ity of tablet 00:00: mouth at [place] [address] [facility] metoprolol 2020-0 Yes [id number] 50mg Take 1 Univers succinate 9-29 tablet by ity o f XL 50 mg 24 00:00: mouth [place] hr tablet [address] [facility] simvastatin 2020-0 Yes [id number] 40mg Take 1 Univers 40 mg 9-29 tablet by ity of tablet 00:00: mouth at [place] [address] [facility] metoprolol 2020-0 Yes [id number] 50mg Take 1 Univers succinate 9-29 tablet by ity o f XL 50 mg 24 00:00: mouth [place] hr tablet [address] [facility] simvastatin Yes [id number] 40mg Take 1 Univers 40 mg 9-29 tablet by ity of tablet 00:00: mouth at [place] [address] [facility] metoprolol 2020- No [id number] 50mg Take 1 Univers succinate 9-29 10-20 tablet by ity of XL 50 mg 24 00:00: 00:00 mouth [place] hr tablet 00 :[address] [facility] simvastatin 2020- No [id number] 40mg Take 1 Univers 40 mg 9-29 10-20 tablet by ity of tablet 00:00: 00:00 mouth at [place] 00 :[address] [facility] metoprolol Yes [id number] 50mg Take 1 Univers succinate 5-12 07 tablet by ity o f XL 50 mg 24 00:00: mouth [place] hr tablet [address] [facility] metoprolol Yes [id number] 50mg Take 1 Univers succinate 5-12 tablet by ity o f XL 50 mg 24 00:00: mouth [place] hr tablet [address] [facility] metoprolol 2019- No [id number] 50mg Take 1 Univers succinate 5-12 -29 tablet by ity of XL 50 mg 24 00:00: 00:00 mouth [place] hr tablet 00 :[address] [facility] metoprolol 2019- No [id number] 50mg Take 1 Univers succinate 5-12 -29 tablet by ity of XL 50 mg 24 00:00: 00:00 mouth [place] hr tablet 00 :[address] [facility] metoprolol 2020- No [id number] 50mg Take 1 Univers succinate 5-12 -29 tablet by ity of XL 50 mg 24 00:00: 00:00 mouth [place] hr tablet 00 :[address] [facility] simvastatin 2018-03 Yes [id number] 40mg Take 1 Univers 40 mg 1-12 07 tablet by ity of tablet 00:00: mouth at [place] [address] [facility] simvastatin 2018-03 Yes [id number] 40mg Take 1 Univers 40 mg 1-12 tablet by ity of tablet 00:00: mouth at [place] [address] [facility] simvastatin 2018-03 2020- No [id number] 40mg Take 1 Univers 40 mg 1-12 09-29 tablet by ity of tablet 00:00: 00:00 mouth at [place] 00 :00 bedtime. Medical Branch simvastatin 2018-03- No [id number] 40mg Take 1 Univers 40 mg 03-27 tablet by ity of tablet 00:00: 00:00 mouth at [place] 00 :00 bedtime. Medical Branch simvastatin 2018-03- No [id number] 40mg Take 1 Univers 40 mg 03-27 tablet by ity of tablet 00:00: 00:00 mouth at [place] 00 :00 bedtime. Medical Branch metoprolol 2018-03- No [id number] 100mg Take 1 Univers succinate 03-27 05-12 07 tablet by ity of XL 100 mg 00:00: 00:00 mouth [place] 24 hr 00 :00 daily. Medical tablet Branch NaCl 0.9% 2018- No 1000mL at 999 Uni vers (NS) bolus 11-14 09- mL/hr, ity of infusion 22:15: 22:30 1,000 mL, [place] 1,000 mL 00 :00 IV Medical Infusion, Branch ONCE, 1 dose, 11/14/18 at 1715, STAT Diclofenac Yes [id number] Take 2-4 Univers Sodium 7-19 07 grams ity of (VOLTAREN) 00:00: three [place] 1 % gel 00 times a Medical day as Branch needed for pain Diclofenac Yes [id number] Take 2-4 Univers Sodium 7-19 07 grams ity of (VOLTAREN) 00:00: three [place] 1 % gel 00 times a Medical day as Branch needed for pain Diclofenac Yes [id number] Take 2-4 Univers Sodium 7-19 07 grams ity of (VOLTAREN) 00:00: three [place] 1 % gel 00 times a Medical day as Branch needed for pain Diclofenac 2019- No [id number] Take 2-4 Univers Sodium 5-09 07-19 grams ity of (VOLTAREN) 00:00: 00:00 three [place] 1 % gel 00 :00 times a Medical day as Branch needed for pain metoprolol Yes [id number] 100mg Take 1 Univers succinate 4-30 07 tablet by ity o f XL 100 mg 00:00: mouth [place] 24 hr 00 daily. Medical tablet Branch metoprolol Yes [id number] 100mg Take 1 Univers succinate 4-30 07 tablet by ity o f XL 100 mg 00:00: mouth [place] 24 hr 00 daily. Medical tablet Branch metoprolol Yes [id number] 100mg Take 1 Univers succinate 4-30 07 tablet by ity o f XL 100 mg 00:00: mouth [place] 24 hr 00 daily. Medical tablet Branch simvastatin Yes [id number] 40mg Take 1 Univers 40 mg 4-18 07 tablet by ity of tablet 00:00: mouth at [place] [address] bedtime. Medical Branch simvastatin Yes [id number] 40mg Take 1 Univers 40 mg 4-18 07 tablet by ity of tablet 00:00: mouth at [place] [address] bedtime. Medical Branch simvastatin Yes [id number] 40mg Take 1 Univers 40 mg 4-18 07 tablet by ity of tablet 00:00: mouth at [place] [address] bedtime. Medical Branch simvastatin Yes [id number] 40mg Take 1 Univers 40 mg 4-18 07 tablet by ity of tablet 00:00: mouth at [place] [address] bedtime. Medical Branch Diclofenac 2019- No [id number] Take 2-4 Univers Sodium 4-18 05-09 grams ity of (VOLTAREN) 00:00: 00:00 three [place] 1 % gel 00 :00 times a Medical day as Branch needed for pain metoprolol 2018- No [id number] 50mg Take 1 Univers succinate 4-18 04-30 07 tablet by ity of XL 50 mg 24 00:00: 00:00 mouth [place] hr tablet 00 :00 daily. Medical Branch metoprolol 2017-03- No [id number] 50mg Take 1 Univers succinate 0-22 04-18 07 tablet by ity of XL 50 mg 24 00:00: 00:00 mouth [place] hr tablet 00 :00 daily. Medical Branch simvastatin 2017-03- No [id number] 40mg Take 1 Univers 40 mg 0-18 04-18 07 tablet by ity of tablet 00:00: 00:00 mouth at [place] 00 :00 bedtime. Medical Branch aspirin 81 Yes 81mg Take 1 Unive rs mg EC 4-25 tablet by ity of tablet 00:00: mouth [place] 00 daily. Medical Branch aspirin 81 Yes 81mg Take 1 Unive rs mg EC 4-25 tablet by ity of tablet 00:00: mouth [place] 00 daily. Medical Branch aspirin 81 2018-0 Yes 81mg Take 1 Unive rs mg EC 4-25 tablet by ity of tablet 00:00: mouth [place] 00 daily. Medical Branch aspirin 81 2018-0 Yes 81mg Take 1 Unive rs mg EC 4-25 tablet by ity of tablet 00:00: mouth [place] 00 daily. Medical Branch aspirin 81 2018-0 Yes 81mg Take 1 Unive rs mg EC 4-25 tablet by ity of tablet 00:00: mouth [place] 00 daily. Medical Branch aspirin 81 2018-0 Yes 81mg Take 1 Unive rs mg EC 4-25 tablet by ity of tablet 00:00: mouth [place] 00 daily. Medical Branch aspirin 81 2018-0 Yes 81mg Take 1 Unive rs mg EC 4-25 tablet by ity of tablet 00:00: mouth [place] 00 daily. Medical Branch aspirin 81 2018-0 Yes 81mg Take 1 Unive rs mg EC 4-25 tablet by ity of tablet 00:00: mouth [place] 00 daily. Medical Branch aspirin 81 2018-0 Yes 81mg Take 1 Unive rs mg EC 4-25 tablet by ity of tablet 00:00: mouth [place] 00 daily. Medical Branch aspirin 81 2018-0 Yes 81mg Take 1 Unive rs mg EC 4-25 tablet by ity of tablet 00:00: mouth [place] 00 daily. Medical Branch aspirin 81 2018-0 Yes 81mg Take 1 Unive rs mg EC 4-25 tablet by ity of tablet 00:00: mouth [place] 00 daily. Medical Branch aspirin 81 2018-0 Yes 81mg Take 1 Unive rs mg EC 4-25 tablet by ity of tablet 00:00: mouth [place] 00 daily. Medical Branch aspirin 81 2018-0 Yes 81mg Take 1 Unive rs mg EC 4-25 tablet by ity of tablet 00:00: mouth [place] 00 daily. Medical Branch aspirin 81 2018-0 2020- No 81mg Take 1 Univ ers mg EC 4-25 10-20 tablet by ity of tablet 00:00: 00:00 mouth [place] 00 :00 daily. Medical Branch citalopram 2013-0 Yes 40mg Take 1 Tab U nivers (CELEXA) 40 6-10 by mouth ity of mg tablet 00:00: daily. [place] 00 Medical Branch risperiDONE 2013-0 Yes 2mg Take 1 Tab Univers (RISPERDAL) 6-10 by mouth ity of 2 mg tablet 00:00: every [place] morning. Medical Branch citalopram Yes 40mg Take 1 Tab U nivers (CELEXA) 40 6-10 by mouth ity of mg tablet 00:00: daily. Medical Branch risperiDONE Yes 2mg Take 1 Tab Univers (RISPERDAL) 6-10 by mouth ity of 2 mg tablet 00:00: every [place] morning. Medical Branch citalopram Yes 40mg Take 1 Tab U nivers (CELEXA) 40 6-10 by mouth ity of mg tablet 00:00: daily. Medical Branch risperiDONE Yes 2mg Take 1 Tab Univers (RISPERDAL) 6-10 by mouth ity of 2 mg tablet 00:00: every [place] morning. Medical Branch citalopram Yes 40mg Take 1 Tab U nivers (CELEXA) 40 6-10 by mouth ity of mg tablet 00:00: daily. Medical Branch risperiDONE Yes 2mg Take 1 Tab Univers (RISPERDAL) 6-10 by mouth ity of 2 mg tablet 00:00: every [place] morning. Medical Branch citalopram Yes 40mg Take 1 Tab U nivers (CELEXA) 40 6-10 by mouth ity of mg tablet 00:00: daily. Medical Branch risperiDONE 0 Yes 2mg Take 1 Tab Univers (RISPERDAL) 6-10 by mouth ity of 2 mg tablet 00:00: every [place] morning. Medical Branch citalopram Yes 40mg Take 1 Tab U nivers (CELEXA) 40 6-10 by mouth ity of mg tablet 00:00: daily. Medical Branch risperiDONE 0 Yes 2mg Take 1 Tab Univers (RISPERDAL) 6-10 by mouth ity of 2 mg tablet 00:00: every [place] morning. Medical Branch citalopram Yes 40mg Take 1 Tab U nivers (CELEXA) 40 6-10 by mouth ity of mg tablet 00:00: daily. [facility] risperiDONE 0 Yes 2mg Take 1 Tab Univers (RISPERDAL) 6-10 by mouth ity of 2 mg tablet 00:00: every [place] 00 morning. [facility] citalopram 0 Yes 40mg Take 1 Tab U nivers (CELEXA) 40 6-10 by mouth ity of mg tablet 00:00: daily. [facility] risperiDONE 2013-0 Yes 2mg Take 1 Tab Univers (RISPERDAL) 6-10 by mouth ity of 2 mg tablet 00:00: every [place] 00 morning. [facility] citalopram 0 Yes 40mg Take 1 Tab U nivers (CELEXA) 40 6-10 by mouth ity of mg tablet 00:00: daily. [facility] risperiDONE 2013-0 Yes 2mg Take 1 Tab Univers (RISPERDAL) 6-10 by mouth ity of 2 mg tablet 00:00: every [place] morning. [facility] citalopram 0 Yes 40mg Take 1 Tab U nivers (CELEXA) 40 6-10 by mouth ity of mg tablet 00:00: daily. [facility] risperiDONE 2013-0 Yes 2mg Take 1 Tab Univers (RISPERDAL) 6-10 by mouth ity of 2 mg tablet 00:00: every [place] morning. [facility] citalopram 0 Yes 40mg Take 1 Tab U nivers (CELEXA) 40 6-10 by mouth ity of mg tablet 00:00: daily. [facility] risperiDONE 2013-0 Yes 2mg Take 1 Tab Univers (RISPERDAL) 6-10 by mouth ity of 2 mg tablet 00:00: every [place] morning. [facility] citalopram 2013-0 Yes 40mg Take 1 Tab U nivers (CELEXA) 40 6-10 by mouth ity of mg tablet 00:00: daily. [facility] risperiDONE 2013-0 Yes 2mg Take 1 Tab Univers (RISPERDAL) 6-10 by mouth ity of 2 mg tablet 00:00: every [place] morning. [facility] citalopram 2013-0 Yes 40mg Take 1 Tab U nivers (CELEXA) 40 6-10 by mouth ity of mg tablet 00:00: daily. [facility] risperiDONE 2013-0 Yes 2mg Take 1 Tab Univers (RISPERDAL) 6-10 by mouth ity of 2 mg tablet 00:00: every [place] 00 morning. [facility] citalopram 2019- No 40mg Take 1 Tab Univers (CELEXA) 40 6-10 10-20 by mouth ity of mg tablet 00:00: 00:00 daily. [place] 00 : Medical Branch risperiDONE 2019- No 2mg Take 1 Tab Univers (RISPERDAL) 6-10 10-20 by mouth ity of 2 mg tablet 00:00: 00:00 [place] morning. [facility] No known No Univers medications ity of [facility] Vital Signs Vital Name Observation Time Observation Value Comments Source Heart rate 2020-05-30 120 /min [facility] 20:19:00 [facility] Respiratory rate 2020-05-30 24 /min [facility] 20:19:00 [facility] Systolic blood 2020-05-30 119 mm[Hg] University of pressure 20:18:00 [facility] Diastolic blood 2020-05-30 88 mm[Hg] University o f pressure 20:18:00 [facility] Body temperature 2020-05-30 36.78 Donna [place] of 20:18:00 [facility] Oxygen saturation 2020-05-30 100 /min [facility] in Arterial blood 20:18:00 [facility] by Pulse oximetry [place] Systolic blood 2020-03-27 128 mm[Hg] University of pressure 19:47:00 [facility] Diastolic blood 2020-03-27 70 mm[Hg] University o f pressure 19:47:00 [facility] Heart rate 2020-03-27 77 /min [place] of 19:47:00 [facility] Body temperature 2020-03-27 36.44 Donna University of 19:47:00 [facility] Respiratory rate 2020-03-27 14 /min University of 19:47:00 [facility] Body height 2020-03-27 160 cm University of 19:47:00 [facility] Systolic blood 2020-03-05 106 mm[Hg] University of pressure 16:06:00 [facility] Diastolic blood 2020-03-05 71 mm[Hg] University o f pressure 16:06:00 [facility] Heart rate 2020-03-05 69 /min [facility] 16:06:00 [facility] Body height 2020-03-05 160 cm University of 16:06:00 [facility] Body weight 2020-03-05 51.71 kg came in University [facility] 16:06:00 [facility] BMI 2020-03-05 20.19 kg/m2 University of 16:06:00 [facility] Branch Oxygen saturation 2020-03-05 96 /min University of in Arterial blood 16:06:00 [facility] bishnu by Pulse oximetry Branch Systolic blood 2020-02-06 139 mm[Hg] University of pressure 17:33:00 [facility] Branch Diastolic blood 2020-02-06 89 mm[Hg] University o f pressure 17:33:00 [facility] Branch Heart rate 2020-02-06 72 /min University of 17:33:00 [facility] Branch Body temperature 2020-02-06 36.67 Donna University of 17:33:00 [facility] Branch Respiratory rate 2020-02-06 18 /min University of 17:33:00 [facility] Branch Oxygen saturation 2020-02-06 100 /min University of in Arterial blood 17:33:00 [facility] by Pulse oximetry Branch Systolic blood 2020-01-31 122 mm[Hg] University of pressure 16:49:00 [facility] Branch Diastolic blood 2020-01-31 75 mm[Hg] University o f pressure 16:49:00 [place] [facility] Heart rate 2020-01-31 84 /min University of 16:49:00 [facility] Branch Body temperature 2020-01-31 37 Donna University of 16:49:00 [facility] Branch Respiratory rate 2020-01-31 20 /min University of 16:49:00 [facility] Body height 2020-01-31 160 cm University of 16:49:00 [facility] Oxygen saturation 2020-01-31 98 /min University of in Arterial blood 16:49:00 [facility] by Pulse oximetry Branch Systolic blood 2020-01-11 121 mm[Hg] University of pressure 20:00:00 [place] [facility] Diastolic blood 2020-01-11 58 mm[Hg] University o f pressure 20:00:00 [facility] Branch Heart rate 2020-01-11 88 /min University of 20:00:00 [facility] Body temperature 2020-01-11 36.56 Donna University of 20:00:00 [place] [facility] Respiratory rate 2020-01-11 20 /min University of 20:00:00 [facility] Oxygen saturation 2020-01-11 96 /min University of in Arterial blood 20:00:00 [facility] by Pulse oximetry Branch Body weight 2020-01-10 51.982 kg University of 18:00:00 [facility] BMI 2020-01-10 20.30 kg/m2 University of 18:00:00 [facility] Branch Body height 2019-12-24 160 cm University of 21:00:00 [facility] Systolic blood 2019-12-13 130 mm[Hg] University of pressure 18:42:00 [facility] Branch Diastolic blood 2019-12-13 87 mm[Hg] University o f pressure 18:42:00 [facility] Heart rate 2019-12-13 76 /min University of 18:42:00 [facility] Respiratory rate 2019-12-13 19 /min University of 18:42:00 [facility] Body height 2019-12-13 167.6 cm University of 18:42:00 [facility] Body weight 2019-12-13 51.438 kg University of 18:42:00 [facility] BMI 2019-12-13 18.30 kg/m2 University of 18:42:00 [facility] Oxygen saturation 2019-12-13 96 /min University of in Arterial blood 18:42:00 [facility] bsihnu by Pulse oximetry Branch Systolic blood 2019-12-16 143 mm[Hg] University of pressure 19:44:00 [facility] Branch Diastolic blood 2019-12-16 89 mm[Hg] University o f pressure 19:44:00 [facility] Heart rate 2019-12-16 85 /min University of 19:42:00 [facility] Body temperature 2019-12-16 37.06 Donna University of 19:42:00 [facility] Respiratory rate 2019-12-16 18 /min University of 19:42:00 [facility] Body weight 2019-12-16 51.347 kg University of 19:42:00 [facility] BMI 2019-12-16 18.27 kg/m2 University of 19:42:00 [facility] Oxygen saturation 2019-12-16 96 /min University of in Arterial blood 19:42:00 [place] [facility] by Pulse oximetry Branch Systolic blood 2018-11-14 136 mm[Hg] University of pressure 22:00:00 [place] [facility] Diastolic blood 2018-11-14 76 mm[Hg] University o f pressure 22:00:00 [facility] Heart rate 2018-11-14 65 /min University of 22:00:00 [facility] Branch Respiratory rate 2018-11-14 16 /min University of 22:00:00 [facility] Oxygen saturation 2018-11-14 96 /min [facility] in Arterial blood 22:00:00 [facility] by Pulse oximetry Branch Body temperature 2018-11-14 37.67 Odnna University of 20:57:00 [facility] Body weight 2018-11-14 51.256 kg University of 20:57:00 [facility] BMI 2018-11-14 18.24 kg/m2 University of 20:57:00 [facility] Systolic blood 2018-10-01 170 mm[Hg] University of pressure 19:47:00 [facility] Diastolic blood 2018-10-01 111 mm[Hg] University o f pressure 19:47:00 [facility] Body temperature 2018-10-01 36.17 Donna University of 19:43:00 [facility] Respiratory rate 2018-10-01 18 /min University of 19:43:00 [facility] Body weight 2018-10-01 51.619 kg University of 19:43:00 [facility] BMI 2018-10-01 18.37 kg/m2 University of 19:43:00 [facility] Systolic blood 2018-07-01 159 mm[Hg] University of pressure 17:51:00 [facility] Diastolic blood 2018-07-01 110 mm[Hg] University o f pressure 17:51:00 [facility] Heart rate 2018-07-01 71 /min University of 17:49:00 [facility] Body temperature 2018-07-01 36.39 Donna University of 17:49:00 [facility] Respiratory rate 2018-07-01 18 /min University of 17:49:00 [facility] Body height 2018-07-01 167.6 cm University of 17:49:00 [facility] Body weight 2018-07-01 52.617 kg University of 17:49:00 [facility] BMI 2018-07-01 18.72 kg/m2 University of 17:49:00 [facility] Oxygen saturation 2018-07-01 99 /min [facility] in Arterial blood 17:49:00 [facility] by Pulse oximetry Branch Procedures Procedure Date / Time Performing Source Performed Clinician HOME HEALTH - OTHER 2020-07-19 Doctor Unassigned, [facility] 05:01:00 [place] [facility] HOME HEALTH - OTHER 2020-06-28 Doctor Unassigned, [facility] 05:01:00 [place] [facility] [place] HOME HEALTH - OTHER 2020-06-07 Doctor Unassigned, [facility] 05:01:00 [place] [facility] CONSENT/REFUSAL FOR DIAGNOSIS 2020-05-30 Doctor Unassigned, [facility] AND TREATMENT 21:08:14 [place] [facility] HOME HEALTH - OTHER 2020-05-17 Doctor Unassigned, [facility] 06:01:00 [place] [facility] HOME HEALTH 485 2020-05-11 Doctor Unassigned, [facility] 06:01:00 [place] [facility] HOME HEALTH - OTHER 2020-04-10 Doctor Unassigned, [facility] 06:01:00 [place] [facility] IR GASTRO TUBE CHANGE (WITH 2020-03-28 Alberto Marcial [facility] FLU[facility]) 18:40:44 Medical Branch HOME HEALTH - OTHER 2020-03-01 Doctor Unassigned, [facility] 06:01:00 [place] [facility] HOME HEALTH - OTHER 2020-02-28 Doctor Unassigned, [facility] 06:01:00 [place] [facility] REFERRAL- REQUEST/RESPONSE 2020-02-24 [facility] 06:01:00 [place] [facility] DME/SUPPLY JUSTIFICATION 2020-02-23 Doctor Unassigned, [facility] 06:01:00 [place] [facility] INSURANCE CORRESPONDENCE 2020-02-21 Doctor Unassigned, [facility] 06:01:00 [place] [facility] PHYSICIAN CERTIFICATION 2020-02-16 Doctor Unassigned, [facility] STATEMENT 06:01:00 [place] [facility] HOME HEALTH - OTHER 2020-02-14 Doctor Unassigned, [facility] 06:01:00 [place] [facility] EXTERNAL PROVIDER RECORDS 2020-02-02 Doctor Unassigned, [facility] 06:01:00 [place] [facility] HOME HEALTH - OTHER 2020-01-31 Doctor Unassigned, [facility] 06:01:00 [place] [facility] PHYSICIAN CERTIFICATION 2020-01-30 Doctor Unassigned, [facility] STATEMENT 06:01:00 [place] [facility] PHYSICIAN CERTIFICATION 2020-01-19 Doctor Unassigned, [facility] STATEMENT 06:01:00 [place] [facility] CBC WITH DIFF 2020-01-11 Mercedez [facility] xa 08:28:00 Medical Branch CBC WITH DIFF 2020-01-10 [facility], [facility] xa 08:12:00 [facility] HEPATIC FUNCTION PANEL 2020-01-09 [facility], [facility] ([id number]) (ALB,T.PRO,BILI 21:38:00 [facility] T,BU/BC,ALT,AST,ALK PHOS) CT THORAX W CONTRAST 2020-01-09 [facility] 20:54:33 [facility] WOUND CULTURE 2020-01-09 [facility] 16:15:00 [facility] BILATERAL VENOUS DUPLEX LOWER 2020-01-09 Jose Alejandro Siegel, [facility] EXTREMITY BY VASCULAR LAB 14:33:05 Gur[facility] URINALYSIS 2020-01-09 [facility], [facility] 14:07:00 [facility] BLOOD CULTURE SCREEN 2020-01-09 [facility] 14:04:00 [facility] CBC WITH DIFF 2020-01-09 [facility] xa 08:47:00 [facility] CBC WITH DIFF 2020-01-08 [facility], [facility] 06:05:00 [facility] XR CHEST 1 VW 2020-01-07 [facility] 14:55:00 [facility] BASIC METABOLIC PANEL (NA, K, 2020-01-07 [facility] CL, CO2, GLUCOSE, BUN, 09:38:00 [facility] CREATININE, [place]) CBC WITHOUT DIFF 2020-01-07 [facility], [facility] exas 09:38:00 [facility] URINALYSIS 2020-01-05 [facility], [facility] xa 23:45:00 [facility] BASIC METABOLIC PANEL (NA, K, 2020-01-05 [facility] CL, CO2, GLUCOSE, BUN, 13:56:00 [facility] CREATININE, CA) CBC WITHOUT DIFF 2020-01-05 [facility], [facility] exas 13:56:00 [facility] Branch FL MODIFIED BARIUM SWALLOW 2020-01-03 [facility] 16:00:00 Medical Branch MAGNESIUM [facility] xas 09:26:00 [facility] BASIC METABOLIC PANEL (NA, K, 2020-01-01, [facility] [place] CL, CO2, GLUCOSE, BUN, 09:26:00 [facility] ran CREATININE, CA) CBC WITH DIFF 2020-01-01, [facility] xas 09:26:00 [facility] MAGNESIUM 2019-12-31, [facility] xas 09:11:00 [facility] BASIC METABOLIC PANEL (NA, K, 2019-12-31, [facility] [place] CL, CO2, GLUCOSE, BUN, 09:11:00 [facility] ran CREATININE, CA) CBC WITH DIFF 2019-12-31, [facility] xas 09:11:00 [facility] IR G-TUBE PLACEMENT 2019-12-31[facility], [facility] PERCUTANEOUS 00:10:55 [facility] XR CHEST 1 VW 2019-12-30 Jason Bloom [facility] xa 12:07:29 [facility] EKG-12 LEAD 2019-12-30 Leland Richards [facility] xa 08:41:42 [facility] MAGNESIUM 2019-12-[facility], [facility] xas 08:24:00 [facility] BASIC METABOLIC PANEL (NA, K, 2019-12-30, [facility] [place] CL, CO2, GLUCOSE, BUN, 08:24:00 [facility] ran CREATININE, CA) CBC WITH DIFF 2019-12-30, [facility] xas 08:24:00 [facility] XR KUB 2019-12-29[facility], [facility] xas 20:29:00 [facility] ECHO ROUTINE W/DOPPLER COLOR 2019-12-29, [facility] 19:46:13 [facility] XR CHEST 1 VW 2019-12-29 [facility], [facility] xas 17:10:37 [facility] EKG-12 LEAD 2019-12-29 Dabi, [facility] xa 16:53:21 [facility] Branch AC PANEL 20 + LACTIC ACID 2019-12-29 [facility], [facility] 16:51:00 [facility] POCT GLUCOSE (AUTOMATED) 2019-12-29 Maurice [facility] 16:37:00 [facility] Branch MAGNESIUM 2019-12-29 [facility], [facility] 09:38:00 [facility] BASIC METABOLIC PANEL (NA, K, 2019-12-29, [facility] [place] CL, CO2, GLUCOSE, BUN, 09:38:00 [facility] ran CREATININE, CA) CBC WITH DIFF 2019-12-29 [facility], [facility] xa 09:38:00 [facility] ECHO ROUTINE W/DOPPLER COLOR 2019-12-28, [facility] 15:32:46 [facility] CBC WITH DIFF 2019-12-28 [facility], [facility] xa 08:19:00 [facility] MAGNESIUM 2019-12-[facility], [facility] 07:37:00 [facility] BASIC METABOLIC PANEL (NA, K, 2019-12-28, [facility] [place] CL, CO2, GLUCOSE, BUN, 07:37:00 [facility] ran CREATININE, CA) PROTHROMBIN TIME / INR 2019-12-28[facility] 07:37:00 [facility] N-TERMINAL PRO-BNP 2019-12-28 [facility], [facility] 07:37:00 [facility] EKG-12 LEAD 2019-12-27 Toribio [facility] xa 15:01:38 [facility] MAGNESIUM 2019-12-27 [facility], [facility] 08:29:00 [facility] BASIC METABOLIC PANEL (NA, K, 2019-12-27 Jason Bloom [facility] [place] CL, CO2, GLUCOSE, BUN, 08:29:00 Medical ran CREATININE, CA) CBC WITH DIFF 2019-12-27 Kovalev, [facility] 08:29:00 [facility] ELECTROENCEPHALOGRAM 2019-12-27 [facility] 00:00:00 [facility] XR KUB 2019-12-26 [facility] 21:35:00 [facility] ECHO ROUTINE W/DOPPLER COLOR 2019-12-26 [facility], [facility] 20:25:50 [facility] MR BRAIN WO CONTRAST 2019-12-26 [facility], [facility] 16:45:00 [facility] Branch EKG-12 LEAD 2019-12-26 Dabhaja, [facility] 12:44:21 [facility] TROPONIN I 2019-12-26 [facility] 09:05:00 [facility] BASIC METABOLIC PANEL (NA, K, 2019-12-26 Tete, [facility] [place] CL, CO2, GLUCOSE, BUN, 09:05:00 [facility] CREATININE, CA) CBC WITH DIFF 2019-12-26 Tete, [facility] 09:05:00 Medical Branch XR KUB 2019-12-26 Tetev, [facility] 06:06:27 [facility] BLOOD CULTURE SCREEN 2019-12-25 [facility], [facility] 08:26:00 [facility] BLOOD CULTURE SCREEN 2019-12-25 [facility], [facility] 08:06:00 [facility] BASIC METABOLIC PANEL (NA, K, 2019-12-25 [facility] CL, CO2, GLUCOSE, BUN, 08:06:00 [facility] CREATININE, CA) CBC WITHOUT DIFF 2019-12-25 [facility], [facility] ex 08:06:00 Medical Branch EKG-12 LEAD 2019-12-25 Reinaldo Cast [facility] 07:49:35 Medical Branch XR ABDOMEN 1 VW 2019-12-25 [facility], [facility] 02:38:[address] ANGIOGRAM HEAD 2019-12-24 [facility], [facility] 22:57:[address] [place] [address] ANGIOGRAM NECK 2019-12-24 [facility], [facility] 22:57:09 Medical Branch EKG-12 LEAD 2019-12-24 Vinay [facility] xa 22:15:34 Medical Branch MRSA / MSSA SCREEN BY PCR, 2019-12-24 Mercedez [facility] NARES 21:53:00 Medical Branch COVID-19 (ID NOW RAPID [facility] 18:53:[address] HEAD WO CONTRAST 2019-12-24 Vinay [place] 18:27:24 Medical Branch XR CHEST 1 VW 2019-12-24 Vinay [facility] xa 18:27:05 [facility] URINALYSIS 2019-12-24 [facility] 17:43:00 Medical Branch ADC / LCC - DRUG SCREEN 2019-12-[facility] 17:42:00 [facility]ESIUM 2019-12-[facility] 17:41[facility] TROPONIN I 2019-12-24 Vinay [facility] xa 17:41:00 Medical Branch FREE T4 2019[facility]12-[facility] 17:41[facility] THYROID STIMULATING HORMONE 2019[facility] 17:41:00 [facility] HEPATIC FUNCTION PANEL 2019-12-24 [facility] ([id number]) (ALB,T.PRO,BILI 17:41:00 Medical Branch T,BU/BC,ALT,AST,ALK PHOS) BASIC METABOLIC PANEL (NA, K, 2019-12-24 Ang Mclean [facility] CL, CO2, GLUCOSE, BUN, 17:41:00 [facility] ranch CREATININE, [place]) LIPID PANEL ([id number])(TOTAL 2019-12-24 [facility] CHOLESTEROL, TRIGLYCERIDES, 17:41:00 [facility] HDL) SALICYLATE 2019-12-24 [facility] 17:41:00 [facility] ETHANOL 2019-12-24 [facility] 17:41:00 [facility] CBC WITH DIFF 2019-12-[facility] 17:41:00 Medical Branch GLYCOSYLATED HEMOGLOBIN (A1C) 2019-12-24 Pedro Pablo Newsome [facility] 17:41:00 Medical Branch PROTHROMBIN TIME / INR 2019-12-24 Ang Mclean [facility] 17:41:00 Medical Branch ACTIVATED PARTIAL THRMPLAS 2019-12-24 Ang Mclean [facility] SAMARIA 17:41:00 Medical Branch FREE T3 2019-12-24 Vinay [facility] xas 17:41:00 Medical Branch AC PANEL 21 + LACTIC ACID 2019-12-24 Vinay [facility] 17:40:00 Medical Branch EKG-12 LEAD 2019-12-24 Vinay [facility] xas 17:22:27 Medical Branch EKG-12 LEAD 2019-12-24 Vinya [facility] xa 17:21:35 Medical Branch EMERGENCY DEPARTMENT 2019-12-24 [facility] DOC[facility] 05:01:00 [place] [facility] [place] EMERGENCY SERVICES AGREEMENTS 2019-12-24 Doctor Unassigned, [facility] AND AUTHORIZATIONS 05:01:00 [place] [facility] h HOSPITAL ADMISSION 2019-12-24 Doctor Unassigned, [facility] 05:01:00 [place] [facility] EKG-12 LEAD 2019-12-13 Daya Love [facility] xa 18:42:43 Medical Branch CONSENT/REFUSAL FOR DIAGNOSIS 2019-12-13 Doctor Unassigned, [facility] AND TREATMENT 18:10:16 [place] [facility] XR CHEST 1 VW 2018-11-14 Munir Chadwick [facility] 21:58:[address] [place] [address] HEAD WO CONTRAST 2018-11-14 Munir Chadwick [facility] 21:47:52 [facility] [place] THYROID STIMULATING HORMONE 2018-11-14 Munir Chadwick [facility] 21:23:00 Medical Branch COMP. METABOLIC PANEL (27294) 2018-11-14 Munir Chadwick [facility] 21:23:00 Medical Branch ACETAMINOPHEN 2018-11-14 Munir Chadwick [facility] 21:23:00 Medical Branch ETHANOL 2018-11-14 Munir Chadwick [facility] 21:23:00 Medical Branch CBC WITH DIFFERENTIAL 2018-11-14 Munir Chadwick [facility] 21:23:00 Medical Branch URINALYSIS 2018-11-14 Munir Chadwick [facility] 21:23:00 Medical Branch ADC / LCC - DRUG SCREEN 2018-11-14 Munir Chadwick [facility] TRIAGE 21:23:00 Medical Branch EKG-12 LEAD 2018-11-14 Munir Chadwick [facility] 21:13:40 Medical Branch HEPATITIS B SURFACE ANTIBODY 2018-10-01 [facility]00 [facility] HEPATITIS B SURFACE ANTIGEN 2018-10-01 [facility] HCV [facility]IBODY 2018-10-01 [facility] HEPATITIS B CORE ANTIBODY IGM 2018[facility]10-[facility]00 [facility] Branch GC & CHLAMYDIA AMPLIFIED 2018-10-01 [facility]:07[facility] HCV BY PCR 2018-10-01 [facility]07[facility]00 [facility] HBV BY REAL-TIME PCR 2018-10-01 [facility] 21:07:00 [facility] ADC OR LIV ONLY - RPR 2018-10-[address] [facility] [address] 21:07:[facility] HIV 1/2 AG-AB WITH REFLEX 2018-10-01 [facility] [place] 21:07:00 [facility] VITAMIN B6, PLASMA 2018-10-01 [facility] VITAMIN B12, LEVEL 2018-10-01 [facility] 19:03[facility]00 [facility] Branch FOLATE 2018-10-01 [facility] 19:03[facility]00 [facility] Branch CBC WITH DIFFERENTIAL 2018-10-01 [facility] 19:03:00 [facility] Branch HIGH SENSITIVITY CRP 2018-10-01 [facility] 19:03:00 [facility] HOMOCYSTEINE 2018-10-01 [facility] 19:03:00 [facility] Medical Branch VITAMIN D, 25-OH 2018-10-01 [facility] [place] 19:03:00 [facility] Medical Branch VITAMIN B1 (THIAMINE), WHOLE 2018-10-01 Gissel, [facility] [place] BLOOD 19:03:00 [facility] Medical [place] Plan of Care Planned Activity Planned Date Details Comments Source Future Scheduled 2026-06-06 Screening for University of Test 00:00:00 malignant neoplasm [place] [facility] ical of colon (procedure) Branch [code = 616607499] Future Scheduled 2026-06-06 Screening for University of Test 00:00:00 malignant neoplasm [place] [facility] ical of colon (procedure) Branch [code = 127446552] Future Scheduled 2021-05-11 DTaP,Tdap,and Td Postponed from Unive rsity of Test 00:00:00 Vaccines (1 - Tdap) 1980 [facility] dical [code = (Insurance / Branch DTaP,Tdap,and Td Financial) Vaccines (1 - Tdap)] Future Scheduled 2021-05-11 Zoster Recombinant Postponed from Uni versity of Test 00:00:00 Vaccine (SHINGRIX) 2011 [place] [facility] ical (1 of 2) [code = (Insurance / Branch Zoster Recombinant Financial) Vaccine (SHINGRIX) (1 of 2)] Future Scheduled 2021-01-08 Screening for University of Test 00:00:00 malignant neoplasm [place] [facility] ical of lung (procedure) Branch [code = 105700876] Future Scheduled 2020-12-12 Depression screening Uni versity of Test 00:00:00 (procedure) [code = [facility] dical 568802006] Branch Future Scheduled 2020-11-14 INFLUENZA VACCINE Univer sity of Test 00:00:00 (Season Ended) [code [place] edical = INFLUENZA VACCINE Branch (Season Ended)] Future Scheduled 2014-01-11 Screening for University of Test 00:00:00 malignant neoplasm [place] [facility] ical of breast Branch (procedure) [code = 963053367] Future Scheduled 2011-08-03 Screening for University of Test 00:00:00 malignant neoplasm [place] [facility] ical of cervix Branch (procedure) [code = 976799649] Future Scheduled 2011 Screening for occult Uni versity of Test 00:00:00 blood in feces [facility] (procedure) [code = Branch 213287395] Future Scheduled 2011 Stool DNA-based Universi ty of Test 00:00:00 colorectal cancer [facility] screening Branch (procedure) [code = 487641489398169] Future Scheduled 2011 Flexible fiberoptic Univ ersity of Test 00:00:00 sigmoidoscopy [facility] (procedure) [code = Branch 25520421] Future Scheduled 1977 SARS-CoV-2 University of Test 00:00:00 (COVID-19) Vaccine [facility] ical (1) [code = Branch SARS-CoV-2 (COVID-19) Vaccine (1)] Future Scheduled 1966 PNEUMOCOCCAL 0-64 Univer sity of Test 00:00:00 YEARS COMBINED [place] [facility] SERIES (1 of 1 - Branch PPSV23) [code = PNEUMOCOCCAL 0-64 YEARS COMBINED SERIES (1 of 1 - PPSV23)] Encounters Start End Encounter Admission Attending Care Care Encounter Source Date/Time Date/Time Type Type Clinicians Facility Department ID 2021-01-13 Emergency [facility] [id number] Univers 06:44:16 ity of [facility] 2021-01-11 Emergency [facility] [id number] Univers 22:13:22 ity of [facility] 2021-02-27 2021-02-27 Case LINDY Larkin 1.2.840.114 [id number] Univers 00:00:00 00:00:00 Management Jazz VARGAS [id number] [place] [phone] [address] Branch 2020-11-20 2020-11-20 Telephone Sylvia Israel 1.2.840.114 [id number] Univers 00:00:00 00:00:00 , Tanna Vargas 350.1.13.10 [place] [phone] [place] [address] Branch 2020-10-15 2020-10-15 Telephone Devonte MNBONILLA 1.2.840.114 [id number] Univers 00:00:00 00:00:00 Indira Askew 350.1.13.10 ity of [place] 4.2.7.2.686 Josh s essio [phone] Md dical nal 145 [facility] 2020-10-09 2020-10-09 Outpatient R CHRISTINE, [facility] [id number] Univers 09:00:00 09:00:00 RUDY [id number] ity of [facility] 2020-10-09 2020-10-09 Outpatient R MARCELINO, [facility] [id number] Univers 09:00:00 09:00:00 SONIA ity [facility] 2020-09-04 2020-09-04 Outpatient R CHRISTINE, [facility] [id number] Univers 13:00:00 13:00:00 RUDY [id number] ity [facility] 2020-09-03 2020-09-03 Outpatient R JEFFRY, [facility] [id number]-20 Univers 14:30:00 14:30:00 LEANNE [id number] ity [facility] 2020-09-03 2020-09-03 Outpatient R JEFFRY, [facility] [id number] Univers 00:00:00 00:00:00 LEANNE ity [facility] 2020-08-28 2020-08-28 Outpatient R CHRISTINE, [facility] [id number] Univers 13:00:00 13:00:00 RUDY [id number] ity [facility] 2020-08-28 2020-08-28 Outpatient R CHRISTINE, [facility] [id number] Univers 13:00:00 13:00:00 RUDY ity [facility] 2020-08-28 2020-08-28 Telemedici Christine, UN[facility]ERSIT 1.2.840.114 [id number] Univers 07:49:14 08:19:14 ne Visit [facility] 350.1.13.10 ity of [facility] 4.2.7.2.686 [place] a [phone] [facility] 092 Branch 2020-08-08 2020-08-08 Outpatient R BREE [facility] [id number] 40P-20 Univers 09:40:00 09:40:00 MAN [id number] ity [facility] 2020-08-08 2020-08-08 Outpatient R RGSHIREEN [facility] [id number] Univers 09:40:00 09:40:00 MAN tiffanie [facility] 2020-08-01 2020-08-01 [facility] [id number] Univers 11:00:00 11:00:00 ALBERTO [id number] ity [facility] 2020-08-01 2020-08-01 Out[facility] [id number] Univers 00:00:00 00:00:00 ALBERTO [facility] 2020-07-19 2020-07-19 [facility] 1.2.840.114 [id number] Univers 00:00:00 00:00:00 Man Askew 350.1.13.10 i [place] [phone] Md dical nal 044 [facility] 2020-07-19 2020-07-19 Orders Doctor SHANIQUA 1.2.840.114 [id number] Univers 00:00:00 00:00:00 Only Unassigned, BRY 350.1.13.10 ity of [place] [facility] 4.2.7.2.686 Thierry as [phone] [address] 2020-07-04 2020-07-04 Outpatient R IVAN [facility] [id number] Univers 14:40:00 14:40:00 DAYA [id number] lucianay o f [facility] 2020-07-04 2020-07-04 Outpatient R FORMERLY [facility] [id number] Univers 14:40:00 14:40:00 DAYA chowdhuryy o f [facility] 2020-07-04 2020-07-04 Office [facility] 1.2.840.114 [id number] Univers 07:53:28 12:03:51 Visit Man Askew 350.1.13.10 i [place] [phone] Md dical nal 044 [facility] 2020-06-28 2020-06-28 Orders Doctor SHANIQUA 1.2.840.114 [id number] Univers 00:00:00 00:00:00 Only Unassigned, BRY 350.1.13.10 ity of [place] [facility] 4.2.7.2.686 Thierry as [phone] [address] 2020-06-22 2020-06-22 Telephone [facility] 1.2.840.114 [id number] Univers 00:00:00 00:00:00 Bev A Harrison 350.1.13.10 it[place] of [place] [phone] [address] 2020-06-22 2020-06-22 Telephone [facility] 1.2.840.114 8 [id number] 00:00:00 00:00:00 Bev A Harrison 350.1.13.10 [place] 4.2.7.2.686 Professio [phone] [address] 2020-06-19 2020-06-19 Telephone [facility] 1.2.840.114 [id number] [facility] 00:00:00 00:00:00 Bev A Harrison 350.1.13.10 [place] of [place] [phone] [address] 2020-06-19 2020-06-19 [facility] 1.2.840.114 8 [id number] 00:00:00 00:00:00 Bev A Harrison 350.1.13.10 [place] 4.2.7.2.686 Professio [phone] [address] 2020-06-11 2020-06-11 Outpatient R IVAN [facility] [id number] Univers 14:20:00 14:20:00 DAYA [id number] christoph o yobany [facility] 2020-06-11 2020-06-11 Outpatient R IVAN [facility] [id number] Univers 14:20:00 14:20:00 DAYA hawthorne o yobany [facility] 2020-06-07 2020-06-07 Outpatient R OSMANY [facility] [id number] Univers 14:00:00 14:00:00 LUCIANO [id number] [facility] 2020-06-07 2020-06-07 Outpatient [facility] [id number] Univers 14:00:00 14:00:00 LUCIANO [facility] 2020-06-07 2020-06-07 Orders Doctor SHANIQUA 1.2.840.114 [id number] Univers 00:00:00 00:00:00 Only Unassigned, BRY 350.1.13.10 ity of [place] [facility] 4.2.7.2.686 Thierry as [phone] [address] 2020-06-05 2020-06-05 Outpatient [facility] [id number] 40P-20 Univers 11:20:00 11:20:00 MNA [id number] [facility] 2020-06-05 2020-06-05 Outpatient [facility] [id number] Univers 11:20:00 11:20:00 MAN [facility] 2020-06-05 2020-06-05 Telephone [facility] 1.2.840.114 [id number] Univers 00:00:00 00:00:00 Man Askew 350.1.13.10 i [place] [phone] Md dical [address] 2020-06-05 2020-06-05 Telephone [facility] 1.2.840.114 [id number] Univers 00:00:00 00:00:00 Man Askew 350.1.13.10 i ty [place] [phone] Md dic[address] 2020-06-04 2020-06-04 Patient [facility] 1.2.840.114 [id number] Univers 00:00:00 00:00:00 Outreach Nikki Askew 350.1.13.10 it[place] of [place] [phone] Md dic[address] 2020-06-04 2020-06-04 Patient [facility] 1.2.840.114 [id number] 00:00:00 00:00:00 Outreach Nikki Alanis Azar 350.1.13.10 [place] 4.2.7.2.686 Professio [phone] [address] 2020-05-31 2020-05-31 Telephone [facility] 1.2.840.114 [id number] [facility] 00:00:00 00:00:00 Bev Askew 350.1.13.10 it[place] of [place] [phone] [address] 2020-05-30 2020-05-30 Office [facility] 1.2.840.114 [id number] Univers 15:05:50 16:14:27 Visit Marta Askew 350.1.13.10 it[place] of [place] [phone] [address] 2020-05-30 2020-05-30 Outpatient R [facility] [id number] P-20 Univers 15:30:00 15:30:00 MARTA [id number] ity o [facility] 2020-05-30 2020-05-30 Outpatient R [facility] [id number] Univers 15:30:00 15:30:00 MARTA ity o [facility] 2020-05-30 2020-05-30 Telephone [facility] 1.2.840.114 [id number] Univers 00:00:00 00:00:00 Bev Askew 350.1.13.10 [place] of [place].2.[place] [phone] [address] 2020-05-30 2020-05-30 Orders Doctor MCGOVERN 1.2.840.114 [id number] Univers 00:00:00 00:00:00 Only Unassigned, BRY 350.1.13.10 ity of [place] [facility] 4.2.7.2.686 Thierry as [phone] [facility] 009 [place] 2020-05-28 2020-05-28 Telephone [facility] 1.2.840.114 [id number] Univers 00:00:00 00:00:00 Bev Gatito Askew 350.1.13.10 it[place] of [place].2.[place] [phone] Md dical nal 044 [facility] 2020-05-26 2020-05-26 Patient [facility] 1.2.840.114 [id number] Univers 00:00:00 00:00:00 Outreach Otis SAN 350.1.13.10 i ty of [facility] 4[place]2.7.2.[place] [phone] Md dicid [address] [place] 2020-05-18 2020-05-18 Telephone [facility] 1.2.840.114 8 [id number] Univers 00:00:00 00:00:00 Bevalex Askew 350.1.13.10 ity of [place].2.[place] [phone] Md dical nal 231 [facility] 2020-05-17 2020-05-17 Telephone [facility] 1.2.840.114 [id number] Univers 00:00:00 00:00:00 Bev Askew 350.1.13.10 it[place] of [place].2.[place] [phone] Md dical nal 231 [facility] 2020-05-17 2020-05-17 Orders Doctor MCGOVERN 1.2.840.114 [id number] Univers 00:00:00 00:00:00 Only Unassigned, BRY 350.1.13.10 ity of [place] [facility] 4.2.7.2.686 Thierry as [phone] [facility] 009 [place] 2020-05-13 2020-05-13 Nurse SHANIQUA Mercado 1.2.840.114 [id number] Univers 00:00:00 00:00:00 Triage Katiana LONDONO 350.1.13.10 it y of HOSPITAL 4.2.7.2.686 Thierry as [phone] [facility] 019 [place] 2020-05-11 2020-05-11 Telemedici [facility] 1.2.840.114 [id number] Univers 08:42:39 16:05:01 ne Visit Man Askew 350.1.13.10 ity of [place].7.2.[place] [phone] Md dical nal 044 [facility] 2020-05-11 2020-05-11 Outpatient R [facility] [id number] 40P-20 Univers 08:40:00 08:40:00 MAN [id number] [facility] 2020-05-11 2020-05-11 Outpatient R [facility] [id number] Univers 08:40:00 08:40:00 MAN [facility] 2020-05-11 2020-05-11 Patient [facility] 1.2.840.114 [id number] Univers 00:00:00 00:00:00 Outreach Nikki Askew 350.1.13.10 ity of [place].2.[place] [phone] Md dical nal [address] [place] [address] 2020-05-11 2020-05-11 Orders Doctor SHANIQUA 1.2.840.114 [id number] Univers 00:00:00 00:00:00 Only Unassigned, BRY 350.1.13.10 ity of [place] [facility] 4.2.7.2.686 Thierry as [phone] [facility] 009 [place] 2020-05-04 2020-05-04 Telephone Gissel [facility] 1.2.840.114 [id number] Univers 00:00:00 00:00:00 Bev Askew 350.1.13.10 ity of [place].7.2.[place] [phone] Md dical nal 044 [facility] 2020-05-02 2020-05-02 Patient [facility] 1.2.840.114 [id number] Univers 00:00:00 00:00:00 Outreach Nikki Askew 350.1.13.10 ity of [place] 4[place].2.[place] [phone] [address] 2020-04-25 2020-04-25 Telephone [facility] 1.2.840.114 8 [id number] Univers 00:00:00 00:00:00 Bev Askew 350.1.13.10 ity of [place].2.[place] [phone] [address] 2020-04-10 2020-04-10 Orders Doctor SHANIQUA 1.2.840.114 [id number] Univers 00:00:00 00:00:00 Only Unassigned, BRY 350.1.13.10 ity of [place] [facility] 4.2.7.2.686 Thierry as [phone] [address] 2020-04-06 2020-04-06 Outpatient R [facility] [id number] P-20 Univers 14:30:00 14:30:00 JOHNATHON [id number] [facility] 2020-04-06 2020-04-06 Outpatient R [facility] [id number] Univers 14:30:00 14:30:00 JOHNATHON [facility] 2020-04-05 2020-04-05 [place] [facility] 1.2.840.114 [id number] Univers 00:00:00 00:00:00 Bev Askew 350.1.13.10 it[place] of [place] [phone] [address] 2020-04-04 2020-04-04 Telephone [place], [facility] 1.2.840.114 [id number] Univers 00:00:00 00:00:00 Bev Askew 350.1.13.10 it[place] of [place] [phone] [facility] 231 [facility] 2020-04-04 2020-04-04 Patient [facility] 1.2.840.114 [id number] Univers 00:00:00 00:00:00 Outreach Nikki Askew 350.1.13.10 it[place] of [place] 4[place] [phone] [address] 2020-03-29 2020-03-29 Telephone [facility] 1.2.840.114 8 [id number] Univers 00:00:00 00:00:00 Bevalex Askew 350.1.13.10 ity of [place].2.[place] [phone] [address] 2020-03-29 2020-03-29 Telephone [facility] 1.2.840.114 8 [id number] Univers 00:00:00 00:00:00 Bev Askew 350.1.13.10 ity of [place] 4[place].2.[place] [phone] [address] 2020-03-28 2020-03-28 [facility] 1.2.840.114 [id number] Univers 11:00:00 23:59:00 Encounter Alberto GUERRERO 350.1.13.10 ity of [place] [phone] [place] [id number] [facility] 2020-03-28 2020-03-28 Outpatient [facility] [id number] -[id number] Univers 00:00:00 00:00:00 [facility]O [id number] [facility] 2020-03-28 2020-03-28 Outpatient [facility] [id number] Univers 00:00:00 00:00:00 ALBERTO ity [facility] 2020-03-27 2020-03-27 Office NICOLE King 1.2.457.346 [id number] Univers 13:41:44 15:37:27 Visit [facility] 350.1.13.10 i ty of [facility] 4.2.7.2.686 [place] a [phone] [facility] 092 [place] 2020-03-27 2020-03-27 Outpatient Nirav KING [facility] [id number] Univers 13:00:00 13:00:00 RUDY [id number] ity [facility] 2020-03-27 2020-03-27 Outpatient Nirav KING [facility] [id number] Univers 13:00:00 13:00:00 RUDY ity [facility] 2020-03-27 2020-03-27 Telephone [facility] 1.2.840.114 [id number] Univers 00:00:00 00:00:00 Bev Askew 350.1.13.10 ity of [place] [phone] [address] 2020-03-27 2020-03-27 Telephone [facility] 1.2.840.114 [id number] Univers 00:00:00 00:00:00 Bev A Harrison 350.1.13.10 ity of [place] 4[place].2.[place] [phone] [address] 2020-03-23 2020-03-23 [place] [facility] 1.2.840.114 [id number] Univers 00:00:00 00:00:00 Bev A Harrison 350.1.13.10 ity of [place] 4[place].2.[place] [phone] Md dic[address] 2020-03-21 2020-03-21 Telephone [facility] 1.2.840.114 8 [id number] Univers 00:00:00 00:00:00 Bev A Harrison 350.1.13.10 ity of [place] 4[place] [phone] [address] 2020-03-13 2020-03-13 Telephone [facility] 1.2.840.114 8 [id number] Univers 00:00:00 00:00:00 Bev A Harrison 350.1.13.10 ity of [place] 4[place]2.[place] [phone] [facility] 231 [facility] 2020-03-13 2020-03-13 Telephone [facility] 1.2.840.114 8 [id number] Univers 00:00:00 00:00:00 Bev A Harrison 350.1.13.10 ity of [place] 4[place].2.[place] [phone] [facility] 044 [facility] 2020-03-07 2020-03-07 Telephone [facility] 1.2.840.114 8 [id number] Univers 00:00:00 00:00:00 Bev A Harrison 350.1.13.10 ity of [place] [phone] [address] 2020 2020 [facility] [id number] 0P-20 Univers 11:00:00 11:00:00 JORJE [id number] [facility] 2020 2020 [facility] [id number] Univers 11:00:00 11:00:00 JORJE [facility] 2020-03-05 2020-03-05 Office [facility] 1.2.840.114 [id number] Univers 09:37:34 09:52:34 Visit [facility] 350.1.13.10 i ty [place] - [phone] Med ica[address] 2020-03-05 2020-03-05 Outpatient R MAME [facility] [id number] P-20 Univers 09:00:00 09:00:00 HOSSEIN [id number] [facility] 2020-03-05 2020-03-05 [facility] [id number] Univers 09:00:00 09:00:00 HOSSEIN ity of [facility] 2020-03-05 2020-03-05 Telephone Gissel [facility] 1.2.840.114 [id number] Univers 00:00:00 00:00:00 Bev Askew 350.1.13.10 ity of [place] 4[place] [phone] Md dical [address] 2020-03-05 2020-03-05 Telephone NICOLE King 1.2.840.114 [id number] Univers 00:00:00 00:00:[facility] 350.1.13.10 i ty of [facility] 4.2.7.2.686 [place] a [phone] [facility] [address] [place] 2020-03-02 2020-03-02 Outpatient R MAME [facility] [id number] P-20 Univers 15:30:00 15:30:00 HOSSEIN [id number] ity [facility] 2020-03-02 2020-03-02 Outpatient [facility] [id number] Univers 15:30:00 15:30:00 HOSSEIN ity [facility] 2020-03-01 2020-03-01 Orders Doctor MCGOVERN 1.2.840.114 [id number] Univers 00:00:00 00:00:00 Only Unassigned, BRY 350.1.13.10 ity of [place] [facility] 4.2.7.2.686 Thierry as [phone] [facility] 009 [place] 2020-02-28 2020-02-28 Orders Doctor MCGOVERN 1.2.840.114 [id number] Univers 00:00:00 00:00:00 Only Unassigned, BRY 350.1.13.10 ity of [place] [facility]OS[facility] 4.2.7.2.686 Thierry as [phone] [address] 2020-02-24 2020-02-24 Outpatient R [facility] [id number] P-20 Univers 13:45:00 13:45:00 HOSSEIN [id number] ity [facility] 2020-02-24 2020-02-24 Outpatient R [facility] [id number] Univers 13:45:00 13:45:00 HOSSEIN ity of [facility] 2020-02-24 2020-02-24 Orders Doctor SHANIQUA 1.2.840.114 [id number] Univers 00:00:00 00:00:00 Only Unassigned, BRY [id number] ity of [facility] 4.2.7.2.686 Thierry as [id number] [address] 2020-02-23 2020-02-23 Telephone [facility] 1.2.840.114 [id number] Univers 00:00:00 00:00:00 Bev Askew 350.1.13.10 ity of [place]2.7.2.[place] [phone] [address] 2020-02-23 2020-02-23 Orders Doctor SHANIQUA 1.2.840.114 [id number] Univers 00:00:00 00:00:00 Only Unassigned, BRY 350.1.13.10 ity of [facility] 4.2.7.2.686 Thierry as [id number] [address] 2020-02-22 2020-02-22 Outpatient Nirav [facility] [id number] Univers 14:30:00 14:30:00 RUDY ity [facility] 2020-02-21 2020-02-21 Orders Doctor SHANIQUA 1.2.840.114 [id number] Univers 00:00:00 00:00:00 Only Unassigned, BRY 350.1.13.10 ity of [facility] 4.2.7.2.686 Thierry as [phone] [address] 2020-02-17 2020-02-17 Outpatient Nirav VILCHIS [facility] [id number] P-20 Univers 13:30:00 13:30:00 HOSSEIN ity [facility] 2020-02-17 2020-02-17 Outpatient Nirav VILCHIS [facility] [id number] Univers 13:30:00 13:30:00 HOSSEIN ity [facility] 2020-02-17 2020-02-17 Telephone [facility] 1.2.840.114 [id number] Univers 00:00:00 00:00:00 Bev A [facility] 350.1.13.10 ity of [place] 4.2.7.2.686 [place] as Professio [phone] Md dicnell [facility] 044 [facility] 2020-02-16 2020-02-16 Orders Doctor SHANIQUA 1.2.840.114 [id number] Univers 00:00:00 00:00:00 Only Unassigned, BRY 350.1.13.10 ity of [facility] 4.2.7.2.686 [place] as [phone] [address] 2020-02-14 2020-02-14 Patient [facility] 1.2.840.114 [id number] Univers 00:00:00 00:00:00 Outreach Nikki Zeke Askew 350.1.13.10 it[place] of [place] [phone] [facility] 231 [facility] 2020-02-14 2020-02-14 Orders Doctor SHANIQUA 1.2.840.114 [id number] Univers 00:00:00 00:00:00 Only Unassigned, BRY 350.1.13.10 ity of [facility] 4.2.7.2.686 [place] as [phone] [address] 2020-02-13 2020-02-13 Telephone [facility] 1.2.840.114 [id number] Univers 00:00:00 00:00:00 Bev Askew 350.1.13.10 it[place] of [place] [phone] Md dicnell [facility] 225 [facility] 2020-02-11 2020-02-11 Telephone [facility] 1.2.840.114 [id number] Univers 00:00:00 00:00:00 Bev Gatito [place] 350.1.13.10 it[place] of [place] [phone] [facility] 231 [facility] 2020-02-10 2020-02-10 Nurse Keisha Lockett 1.2.840.114 [id number] Univers 00:00:00 00:00:00 Triage BRY 350.1.13.10 it y of [facility] 4.2.7.2.686 [place] [phone] [facility] [address] [place] 2020-02-08 2020-02-08 [facility] 1.2.840.114 [id number] Univers 00:00:00 00:00:00 Bev Askew 350.1.13.10 it[place] of [place] [phone] [address] 2020-02-07 2020-02-07 Patient Jose Alejandro [facility] 1.2.840.114 [id number] Univers 00:00:00 00:00:00 Outreach Nikki Askew 350.1.13.10 ity of [place] [phone] [address] 2020-02-06 2020-02-06 [facility] 1.2.840.114 [id number] [facility] 11:08:32 12:47:15 Visit Bev Askew 350.1.13.10 it[place] of [place] [phone] [address] 2020-02-06 2020-02-06 [facility] [id number] 40P-20 Univers 11:20:00 11:20:00 BEV [id number] ity [facility] 2020-02-06 2020-02-06 Outpatient R [facility] [id number] Univers 11:20:00 11:20:00 BEV ity [facility] 2020-02-06 2020-02-06 Patient Funmilayo Dubose 1.2.840.114 [id number] Univers 00:00:00 00:00:00 Outreach E Vargas 350.1.13.10 i ty of [place] [phone] [facility] [address] 2020-02-02 2020-02-02 Orders Doctor SHANIQUA 1.2.840.114 [id number] Univers 00:00:00 00:00:00 Only Unassigned, BRY 350.1.13.10 ity of [facility] 4.2.7.2.686 [place] [phone] [facility] [address] [place] 2020-02-01 2020-02-01 [facility] 1.2.130.680 [id number] Univers 00:00:00 00:00:00 [facility] 350.1.13.10 it y of [facility] 4.2.7.2.686 [place] [phone] [facility] [address] [place] [address] 2020-01-31 2020-01-31 Office [facility] 1.2.840.114 [id number] Univers 09:59:32 11:21:18 Visit Dorene Askew 350.1.13.10 ity of [place] [phone] Md dical [facility] 205 [facility] 2020-01-31 2020-01-31 [facility] [id number] Univers 10:15:00 10:15:00 DORENE hawthorne o f [facility] 2020-01-23 2020-01-23 Patient [facility] 1.2.840.114 [id number] Univers 00:00:00 00:00:00 Outreach Nikki Alanis Azar 350.1.13.10 ity of [place] [phone] Md dical nal 231 [facility] 2020-01-19 2020-01-19 Orders Doctor SHANIQUA 1.2.840.114 [id number] Univers 00:00:00 00:00:00 Only Unassigned, BRY 350.1.13.10 ity of [facility] 4.2.7.2.686 [place] [phone] [facility] [address] [place] 2020-01-18 2020-01-18 Telephone SHANIQUA King 1.2.229.931 [id number] Univers 00:00:00 00:00:00 Rudy BRY 350.1.13.10 it y of [facility] 4.2.7.2.686 [place] [phone] [address] 2020-01-16 2020-01-16 Patient Funmilayo Dubose 1.2.840.114 [id number] Univers 00:00:00 00:00:00 Outreach E Vargas 350.1.13.10 i ty [place] [phone] [address] 2020-01-13 2020-01-13 Patient Funmilayo Dubose 1.2.840.114 [id number] Univers 00:00:00 00:00:00 Outreach E Vargas 350.1.13.10 i ty of [place] [phone] [address] 2020-01-13 2020-01-13 Telephone Gissel MNBONILLA 1.2.840.114 [id number] Univers 00:00:00 00:00:00 Bev Askew 350.1.13.10 ity of [place].2.[place] [phone] Md dical nal [address] [place] [address] 2020-01-12 2020-01-12 Patient Funmilayo Dubose 1.2.840.114 [id number] Univers 00:00:00 00:00:00 Outreach Norah Vargas 350.1.13.10 i ty [place] [phone] [address] 2020-01-12 2020-01-12 Patient Jose Alejandro [facility] 1.2.840.114 [id number] Univers 00:00:00 00:00:00 Outreach Nikki Askew 350.1.13.10 ity of [place] [phone] Md dical nal [address] [place] [address] 2020-01-12 2020-01-12 Transition Lindy Parr 1.2.840.114 [id number] Univers 00:00:00 00:00:00 of Care Melinda Rahmany 350.1.13.10 i ty [place] [phone] [address] 2019-12-24 2020-01-11 [facility] Ang Mclean 1.2.840.1 14 [id number] Univers 12:17:00 18:29:00 Encounter Leland Rihcardsy 350.1.13.10 ity of [facility] 4.2.7.2.686 [place] [phone] [facility] [address] [place] 2020-01-10 2020-01-10 Telephone [facility] 1.2.840.114 [id number] Univers 00:00:00 00:00:00 Bev Askew 350.1.13.10 ity [facility] [place].2.[place].2.[place] [phone] Md dical nal 231 [facility] 2020-01-06 2020-01-06 [facility] [id number] P-20 Univers 11:15:00 11:15:00 DORENE [id number] christoph o [facility] 2020-01-06 2020-01-06 Outpatient [facility] [id number] Univers 11:15:00 11:15:00 DORENE hawthorne o [facility] 2019-12-28 2019-12-28 [facility] [id number] 40P-20 Univers 15:30:00 15:30:00 BEV [id number] ity [facility] 2019-12-27 2019-12-27 Outpatient R [facility] [id number] -[id number] Univers 14:00:00 14:00:00 [id number] ity [facility] 2019-12-27 2019-12-27 Outpatient R [facility] [id number] Univers 14:00:00 14:00:00 ity [facility] 2019-12-27 2019-12-27 [facility] [id number] Univers 13:00:00 13:00:00 JUSTINE [facility] 2019-12-13 2019-12-20 Office [facility] 1.2.840.114 [id number] Univers 13:10:32 08:23:59 Visit Daya Askew 350.1.13.10 ity [facility] [place]2.[place] [phone] Md dical nal 059 [facility] 2019-12-19 2019-12-19 [facility], [facility] Vascular Room 1 [facility] 1.2.840.114 [id number] Univers 16:12:39 16:12:49 t Preston Cortes 350.1.13. 10 ity of [place] [phone] Md dical nal 9 [facility] 2019-12-19 2019-12-19 Outpatient R [facility] [id number] -[id number] Univers 15:00:00 15:00:00 ity [facility] 2019-12-19 2019-12-19 Outpatient R SOPHIA [facility] [id number] Univers 15:00:00 15:00:00 PRESTON [facility] 2019-12-19 2019-12-19 [employer] [facility], [facility] Vascular Room 1 [facility] 1.2.840.114 [id number] Univers 13:21:22 14:21:22 Visit Preston Cortes 350.1.13. 10 ity of [place] [phone] Md diccliff nal [address] [place] [address] 2019-12-16 2019-12-16 Office [facility] 1.2.840.114 [id number] Univers 14:31:09 15:36:14 Visit Bev Askew 350.1.13.10 ity of [place] [phone] Md diccliff nal 231 [facility] 2019-12-16 2019-12-16 Outpatient R GISSEL [facility] [id number] 40P-20 Univers 14:40:00 14:40:00 BEV ity [facility] 2019-12-16 2019-12-16 [facility] [id number] Univers 14:40:00 14:40:00 BEV hawthorne [facility] 2019-12-13 2019-12-13 Outpatient R IVAN [facility] [id number] -20 Univers 13:20:00 13:20:00 DAYA [id number] ity o [facility] 2019-12-13 2019-12-13 Outpatient R IVAN, [facility] [id number] Univers 13:20:00 13:20:[address] [facility] 2019-12-13 2019-12-13 Orders Doctor SHANIQUA 1.2.840.114 [id number] Univers 00:00:00 00:00:00 Only Unassigned, BRY 350.1.13.10 [facility] 4.2.7.2.686 [place] as [phone] [address] 2019-10-06 2019-10-06 Outpatient R TANNER [facility] [id number] P-20 Univers 08:15:00 08:15:[id number] [facility] 2019-10-06 2019-10-06 [facility]patient [facility] [id number] Univers 08:15:00 08:15:00 DORENE [facility] 2019-08-02 2019-08-02 [facility] [id number] Univers 13:40:00 13:40:00 BEV hawthorne [facility] 2019-07-26 2019-07-26 Outpatient R IVAN, [facility] [id number] -[id number] Univers 14:00:00 14:00:[id number] [facility] 2019-07-26 2019-07-26 [facility] [id number] Univers 14:00:00 14:00:00 [facility] 2019-07-26 2019-07-26 [facility] 1.2.840.114 [id number] Univers 08:22:33 08:42:33 ne Visit Daya Askew 350.1.13.10 ity [facility] 4.2.7.2.[place] [phone] Md sterling[address] 2019-06-03 2019-06-03 Outpatient [facility] [id number] Univers 08:40:00 08:40:00 BEV hawthorne [facility] 2018-11-14 2018-11-14 Emergency [facility] 1.2.422.118 [id number] [facility] 15:51:03 17:57:00 Munir Mederos Azar 350.1.13.10 i ty of [place].2.[place] [phone] [facility] [address] [place] 2018-10-01 2018-10-18 Office [facility] 1.2.840.114 [id number] [facility] 14:32:59 13:22:59 Visit Bev Askew 350.1.13.10 ity of [place].2.[place] [phone] [address] 2018-07-01 2018-10-12 Office [facility] 1.2.840.114 [id number] [facility] 12:13:07 10:13:29 Visit Bev Gatito Askew 350.1.13.10 ity of [place] 4[place].2.[place] [phone] [address] 2018-10-07 2018-10-07 Telephone [facility] 1.2.840.114 [id number] [facility] 00:00:00 00:00:00 Bev Askew 350.1.13.10 ity of [place].2.[place] [phone] [address] Results Test Test Test Results Result Source Description Time Comments Comments IR Gastro tube 2020-03- [facility] (with 13 fluoroscopically-guided [facility] Fluoro) 19:21:31 gastrostomy tube exchange. [place] According to Executive Order [place] 09 and emergency rule 22 [place] ?187.57(c), this procedure was deemed medicallynecessary to address a medical condition (history of CVA with percutaneousgastrostomy tube in place, in need of exchange) which places this patientat risk for serious adverse medical consequences or . As the attending radiologist, I, Dr. Luciano Bhatia, performed andwas present in the room during the entire procedure. PROVIDED REASON FOR EXAM/INDICATION: History of CVA with percutaneousgastrostomy tube in place, in need of exchange. PROCEDURE: Fluoroscopically-guided gastrostomy tube exchange. RETAIL LEASING AGENT: Dr. Luciano Bhatia. MEDICATIONS: None. CONTRAST: 10 mL Omnipaque-300. COMPLICATION: None immediately evident. FLUOROSCOPY TIME: 0.4 minutes.RADIATION DOSE: 1.5 mGy. DESCRIPTION: Informed consent was obtained. The patient was taken to theinterventional suite and placed on the table in supine position. A time outwas performed. Skin of the left abdomen about the existing gastrostomy tubewas prepped and draped sterilely. A small amount of contrast was injectedconfirming the location of the gastrostomy tube within the stomach. Thetube was removed over a guidewire and exchanged for a new 16 Frenchgastrostomy tube which was placed within the stomach as confirmed withinjection of a small amount of contrast. The retention balloon was inflatedwith approximately 4 mL of dilute contrast. A sterile dressing was applied.The patient tolerated the procedure well without immediate complication andwas subsequently discharged from the department in stable condition. COMPLICATIONS: None immediate.ESTIMATED BLOOD LOSS: None.CONDITION: Stable. FINDINGS:New 16 Ukrainian gastrostomy tube placed within the stomach. [facility], Radiant Results Inft User - 03/28/2020 1:22 PM CSTPROVIDED REASON FOR EXAM/INDICATION: History of CVA with percutaneousgastrostomy tube in place, in need of exchange.PROCEDURE: Fluoroscopically-guided gastrostomy tube exchange.RETAIL LEASING AGENT: Dr. Luciano Bhatia.MEDICATIONS: None.CONTRAST: 10 mL Omnipaque-300.COMPLICATION : None immediately evident.FLUOROSCOPY TIME: 0.4 minutes.RADIATION DOSE: 1.5 mGy.DESCRIPTION: Informed consent was obtained. The patient was taken to theinterventional suite and placed on the table in supine position. A time outwas performed. Skin of the left abdomen about the existing gastrostomy tubewas prepped and draped sterilely. A small amount of contrast was injectedconfirming the location of the gastrostomy tube within the stomach. Thetube was removed over a guidewire and exchanged for a new 16 Frenchgastrostomy tube which was placed within the stomach as confirmed withinjection of a small amount of contrast. The retention balloon was inflatedwith approximately 4 mL of dilute contrast. A sterile dressing was applied.The patient tolerated the procedure well without immediate complication andwas subsequently discharged from the department in stable condition.COMPLICATIONS: None immediate.ESTIMATED BLOOD LOSS: None.CONDITION: Stable.FINDINGS:New 16 Ukrainian gastrostomy tube placed within the stomach.IMPRESSIONSuccessf ul fluoroscopically-guided gastrostomy tube exchange.According to Executive Order [place] 09 and emergency rule 22 [place] (TAC) ?187.57(c), this procedure was deemed medicallynecessary to address a medical condition (history of CVA with percutaneousgastrostomy tube in place, in need of exchange) which places this patientat risk for serious adverse medical consequences or .As the attending radiologist, I, Dr. Luciano Bhatia, performed andwas present in the room during the entire procedure. CBC WITH DIFF 2020-01-11 08:37:00 Test Item Value Reference Range Interpretation Comme nts WBC (test code = 6690-2) See_Comment [A utomated message] The system which [employer] nerated this result transmit breanna reference range: 4.30 - 1 1.10 10*3/?L. The reference r renzo was not used to interpr et this result as normal/abnor mal. RBC (test code = 789-8) See_Comment L [Au tomated message] The system which [employer] nerated this result transmit breanna reference range: 3.93 - 5 .25 10*6/?L. The reference r renzo was not used to interpr et this result as normal/abnor mal. HGB (test code = 718-7) 11.4 g/dL 11.6-15 L HCT (test code = 4544-3) 35.1 % 35.7-45.2 L MCV (test code = 787-2) 95.4 fL 80.6-95.5 MCH (test code = 785-6) 31.0 pg 25.9-32.8 MCHC (test code = 786-4) 32.5 g/dL 31.6-35.1 RDW-SD (test code = 89667-4) 41.8 fL 39-49.9 RDW-CV (test code = 788-0) 12.0 % 12-15.5 PLT (test code = 777-3) See_Comment [Au tomated message] The system which ge nerated this result transmit breanna reference range: 166 - 35 8 10*3/?L. The reference range was not used to interpret th is result as normal/abnormal . MPV (test code = 10368-3) 10.9 fL 9.5-12.9 NRBC/100 WBC (test code = See_Comment [ Automated message] The 5311395965) system which ge nerated this result transmit breanna reference range: 0.0 - 10 .0 /100 WBCs. The reference r renzo was not used to interpr et this result as normal/abnor mal. NRBC x10^3 (test code = <0.01 See_Comment [Au tomated message] The 9660988044) system which ge nerated this result transmit breanna reference range: 10*3/?L. The reference range was not u sed to interpret this result as normal/abnormal . GRAN MAT (NEUT) % (test code 79.1 % = 770-8) IMM GRAN % (test code = 0.20 % 0644701977) LYMPH % (test code = 736-9) 10.7 % MONO % (test code = 5905-5) 7.5 % EOS % (test code = 713-8) 2.3 % BASO % (test code = 706-2) 0.2 % GRAN MAT x10^3(ANC) (test 8.62 10*3/uL 1.88-7.09 H code = 6997269228) IMM GRAN x10^3 (test code = <0.03 0-0.06 4390443438) LYMPH x10^3 (test code = 1.17 10*3/uL 1.32-3.29 L 731-0) MONO x10^3 (test code = 0.82 10*3/uL 0.33-0.92 742-7) EOS x10^3 (test code = 0.25 10*3/uL 0.03-0.39 711-2) BASO x10^3 (test code = <0.03 0.01-0.07 704-7) Lab Interpretation (test Abnormal code = 80555-1) [facility] WITH [id number] 08:36:00 Test Item Value Reference Range Interpretation Comments WBC (test code = See_Comment H [Automated 6690-2) message] The sy stem which generated this result transmitted reference range : 4.30 - 11.10 10*3/?L. The reference range was not used to interpret this result as normal/abnormal . RBC (test code = See_Comment L [Automated 789-8) message] The sy stem which generated this result transmitted reference range : 3.93 - 5.25 10*6/?L. The reference range was not used to interpret this result as normal/abnormal . HGB (test code = 11.2 g/dL 11.6-15 L 718-7) HCT (test code = 34.1 % 35.7-45.2 L 4544-3) MCV (test code = 95.5 fL 80.6-95.5 787-2) MCH (test code = 31.4 pg 25.9-32.8 785-6) MCHC (test code = 32.8 g/dL 31.6-35.1 786-4) RDW-SD (test code = 42.1 fL 39-49.9 64324-5) RDW-CV (test code = 12.0 % 12-15.5 788-0) PLT (test code = See_Comment [Automated 777-3) message] The sy stem which generated this result transmitted reference range : 166 - 358 10*3/ ?L. The reference r renzo was not used to interpret this result as normal/abnormal . MPV (test code = 10.7 fL 9.5-12.9 87897-3) NRBC/100 WBC (test See_Comment [Automat ed code = 3598402495) message] The system which generated this result transmitted reference range : 0.0 - 10.0 /100 WBCs. The refer ence range was not u sed to interpret th is result as normal/abnormal . NRBC x10^3 (test code <0.01 See_Comment [Auto mated = 1540229874) message] The s ystem which generated this result transmitted reference range : 10*3/?L. The reference range was not used to interpret this result as normal/abnormal . GRAN MAT (NEUT) % 81.8 % (test code = 770-8) IMM GRAN % (test code 0.40 % = 7065943692) LYMPH % (test code = 9.2 % 736-9) MONO % (test code = 7.0 % 5905-5) EOS % (test code = 1.4 % 713-8) BASO % (test code = 0.2 % 706-2) GRAN MAT x10^3(ANC) 9.18 10*3/uL 1.88-7.09 H (test code = 7153045659) IMM GRAN x10^3 (test 0.04 10*3/uL 0-0.06 code = 4542745923) LYMPH x10^3 (test code 1.03 10*3/uL 1.32-3.29 L = 731-0) MONO x10^3 (test code 0.78 10*3/uL 0.33-0.92 = 742-7) EOS x10^3 (test code = 0.16 10*3/uL 0.03-0.39 711-2) BASO x10^3 (test code <0.03 0.01-0.07 = 704-7) Lab Interpretation Abnormal (test code = 16295-2) [facility]95[facility] (ALB,T.PRO,BILI T,BU/BC,ALT,AST,ALK PHOS)2020-01-09 22:18:00 Test Item Value Reference Range Interpretation Comments TOTAL BILI (test code = 1266339986) 0.2 mg/dL 0.1-1.1 BILI UNCON (test code = 5155991256) 0.2 mg/dL 0.1-1.1 BILI CONJ (test code = 5610205839) 0.0 mg/dL 0-0.3 T PROTEIN (test code = 9649756592) 6.3 g/dL 6.3-8.2 ALBUMIN (test code = 4210993820) 2.9 g/dL 3.5-5 L ALK PHOS (test code = 3239900815) 55 U/L 34-122 ALTv (test code = 1742-6) 23 U/L 5-35 AST(SGOT) (test code = 9197568338) 30 U/L 13-40 Lab Interpretation (test code = Abnormal 11318-0) [facility]2020-[facility] 14:23:00 Test Item Value Reference Range Interpretation Comments APPEARANCE (test code = Cloudy Clear A 2148273056) COLOR (test code = Yellow Yellow 8598113555) PH (test code = 4.8-8.0 2051503281) SP GRAVITY (test code = 1.003-1.030 1044533949) GLU U QUAL (test code = Normal Normal 8236259197) BLOOD (test code = Negative Negative INTERFERE NCE FROM 2191308573) ASCORBIC ACID M AY CAUSE FALSE NEG ATIVE RESULT KETONES (test code = Negative Negative 0653651660) PROTEIN (test code = Negative Negative 2887-8) UROBILIN (test code = Normal Normal 3428197199) BILIRUBIN (test code = Negative Negative 6390848985) NITRITE (test code = Positive Negative A 6184121613) LEUK LOGAN (test code = 500/uL Negative A 3460439569) RBC/HPF (test code = See_Comment H [Autom ated message] 4873981356) The system Vindicia generated this result transmitted ref erence range: 0 - 3 HP F. The reference range was not used to int erpret this result as normal/abnormal . WBC/HPF (test code = See_Comment H [Autom ated message] 2932994831) The system Vindicia generated this result transmitted ref erence range: 0 - 5 HP F. The reference range was not used to int erpret this result as normal/abnormal . BACTERIA (test code = Many Negative A 4417125195) MUCOUS (test code = Slight Negative LPF A 4179952985) AMORPHOUS (test code = Few Rare HPF A 7451426580) SQ EPITH (test code = See_Comment [Auto mated message] 1405216353) The system Vindicia generated this result transmitted ref erence range: <=2 HPF. The reference range was not used to int erpret this result as normal/abnormal . Lab Interpretation (test Abnormal code = 81810-9) [facility] WITH [id number] 09:39:00 Test Item Value Reference Range Interpretation Comments WBC (test code = See_Comment H [Automated 6690-2) message] The system which generated this result transmit breanna reference range : 4.30 - 11.10 10*3/?L. The reference range was not used to interpret this result as normal/abnormal . RBC (test code = See_Comment [Automated 789-8) message] The system which generated this result transmit breanna reference range : 3.93 - 5.25 10*6/?L. The reference range was not used to interpret this result as normal/abnormal . HGB (test code = 13.5 g/dL 11.6-15 718-7) HCT (test code = 40.9 % 35.7-45.2 4544-3) MCV (test code = 94.7 fL 80.6-95.5 787-2) MCH (test code = 31.3 pg 25.9-32.8 785-6) MCHC (test code = 33.0 g/dL 31.6-35.1 786-4) RDW-SD (test code = 41.8 fL 39-49.9 69311-6) RDW-CV (test code = 11.9 % 12-15.5 L 788-0) PLT (test code = See_Comment [Automated 777-3) message] The system which generated this result transmit breanna reference range : 166 - 358 10*3/ ?L. The reference range was not u sed to interpret th is result as normal/abnormal . MPV (test code = 11.0 fL 9.5-12.9 43963-7) NRBC/100 WBC (test See_Comment [Automat ed code = 6198558350) message] The system which generated this result transmit breanna reference range : 0.0 - 10.0 /100 WBCs. The reference range was not used to interpret this result as normal/abnormal . NRBC x10^3 (test code <0.01 See_Comment [Auto mated = 1299773600) message] The system which generated this result transmit breanna reference range : 10*3/?L. The reference range was not used to interpret this result as normal/abnormal . GRAN MAT (NEUT) % 88.6 % (test code = 770-8) IMM GRAN % (test code 0.50 % = 1351383090) LYMPH % (test code = 5.5 % 736-9) MONO % (test code = 4.4 % 5905-5) EOS % (test code = 0.8 % 713-8) BASO % (test code = 0.2 % 706-2) GRAN MAT x10^3(ANC) 15.04 10*3/uL 1.88-7.09 H (test code = 7822030616) IMM GRAN x10^3 (test 0.09 10*3/uL 0-0.06 H code = 2317346560) LYMPH x10^3 (test code 0.94 10*3/uL 1.32-3.29 L = 731-0) MONO x10^3 (test code 0.75 10*3/uL 0.33-0.92 = 742-7) EOS x10^3 (test code = 0.13 10*3/uL 0.03-0.39 711-2) BASO x10^3 (test code 0.04 10*3/uL 0.01-0.07 = 704-7) Lab Interpretation Abnormal (test code = 76071-8) [facility] [id number] 07:54:36Impression: Unchanged opacity in the left midlung zone which may representpneumonia.Exam: XR CHEST 1VW 01/07/2020 9:50 AM Clinical History: cough Comparison: Radiograph of 12/30/2019 Technique: frontal view of the chest Findings: Mild pulmonary congestion. Previously noted opacity in the left lower lungzone is unchanged. No new consolidation. No pleural effusion. ?No pneumothorax. The cardiomediastinal silhouetteappears unchanged. No acute osseous abnormality. [facility], Radiant Results Inft User - 01/08/2020 2:55 AM CDTExam: XR CHEST 1 01/07/2020 9:50 AMClinical History: cough Comparison: Radiograph of 12/30/2019Technique: frontal view of the chestFindings: Mild pulmonary congestion. Previouslynoted opacity in the left lower lungzone is unchanged. No new consolidation. No pleural effusion. No pneumothorax. The cardiomediastinal silhouetteappears unchanged. No acute osseous abnormality. IMPRESSIONImpression: Unchanged opacity in the left midlung zone which may representpneumonia.[facility] WITH [id number] 06:17:00 Test Item Value Reference Range Interpretation Comments WBC (test code = See_Comment H [Automated 6690-2) message] The system which generated this result transmit breanna reference range : 4.30 - 11.10 10*3/?L. The reference range was not used to interpret this result as normal/abnormal . RBC (test code = See_Comment [Automated 789-8) message] The system which generated this result transmit breanna reference range : 3.93 - 5.25 10*6/?L. The reference range was not used to interpret this result as normal/abnormal . HGB (test code = 13.1 g/dL 11.6-15 718-7) HCT (test code = 39.3 % 35.7-45.2 4544-3) MCV (test code = 94.2 fL 80.6-95.5 787-2) MCH (test code = 31.4 pg 25.9-32.8 785-6) MCHC (test code = 33.3 g/dL 31.6-35.1 786-4) RDW-SD (test code = 42.5 fL 39-49.9 83179-8) RDW-CV (test code = 12.1 % 12-15.5 788-0) PLT (test code = See_Comment [Automated 777-3) message] The system which generated this result transmit breanna reference range : 166 - 358 10*3/ ?L. The reference range was not u sed to interpret th is result as normal/abnormal . MPV (test code = 10.8 fL 9.5-12.9 53215-1) NRBC/100 WBC (test See_Comment [Automat ed code = 8153330963) message] The system which generated this result transmit breanna reference range : 0.0 - 10.0 /100 WBCs. The reference range was not used to interpret this result as normal/abnormal . NRBC x10^3 (test code <0.01 See_Comment [Auto mated = 1004870268) message] The system which generated this result transmit breanna reference range : 10*3/?L. The reference range was not used to interpret this result as normal/abnormal . GRAN MAT (NEUT) % 82.9 % (test code = 770-8) IMM GRAN % (test code 0.40 % = 9111550620) LYMPH % (test code = 7.7 % 736-9) MONO % (test code = 7.4 % 5905-5) EOS % (test code = 1.3 % 713-8) BASO % (test code = 0.3 % 706-2) GRAN MAT x10^3(ANC) 12.33 10*3/uL 1.88-7.09 H (test code = 7431908525) IMM GRAN x10^3 (test 0.06 10*3/uL 0-0.06 code = 5914666082) LYMPH x10^3 (test code 1.15 10*3/uL 1.32-3.29 L = 731-0) MONO x10^3 (test code 1.10 10*3/uL 0.33-0.92 H = 742-7) EOS x10^3 (test code = 0.20 10*3/uL 0.03-0.39 711-2) BASO x10^3 (test code 0.04 10*3/uL 0.01-0.07 = 704-7) Lab Interpretation Abnormal (test code = 87203-0) [facility] METABOLIC PANEL (NA, K, CL, CO2, GLUCOSE, BUN, CREATININE, CA)2020-01-07 10:01:00 Test Item Value Reference Range Interpretation Comments NA (test code = 140 mmol/L 135-145 0575166520) K (test code = 4.5 mmol/L 3.5-5 8753184441) CL (test code = 107 mmol/L 98-108 8587084740) CO2 TOTAL (test code = 28 mmol/L 23-31 4565946542) AGAP (test code = 2-16 9946898208) BUN (test code = 34 mg/dL 7-23 H 7982198779) GLUCOSE (test code = 113 mg/dL 70-110 H 6242934700) CREATININE (test code = 0.70 mg/dL 0.5-1.04 5543009600) CALCIUM (test code = 9.7 mg/dL 8.6-10.6 8661350933) eGFR Calculation mL/min/1.73m2 (Non-) (test code = 0064947982) eGFR Calculation mL/min/1.73m2 () (test code = 1063824738) TONE (test code = TONE) Association of Glomerular Filtration Rate (GFR) and Staging of Kidney Disease* + --+ --+ ------+| GFR (mL/min/1.73 m2) ?| With Kidney Damage ?| ?Without Kidney Damage+ --------+ --------+ +| ?>90 ?| ?Stage one ?| ? Normal ?+ ---+ ---+ -------+| ?60-89 ?| ?Stage two ?| ? Decreased GFR ? + --+ --+ ------+| ?30-59 ?| ?Stage three ?| ? Stage three ? + --+ --+ ------+| ?15-29 ?| ?Stage four ? | ? Stage four ?+ ---+ ---+ -------+| ?<15 (or dialysis) ? ?| ?Stage five ? | ? Stage five ?+ ---+ ---+ -------+ *Each stage assumes the associated GFR level has been in effect for at least three months. ?Stages 1 to 5, with or without kidney disease, indicate chronic kidney disease. Notes: Determination of stages one and two (with eGFR >59mL/min/1.73 m2) requires estimation of kidney damage for at least three months as defined by structural or functional abnormalities of the kidney, manifested by either:Pathological abnormalities or Markers of kidney damage (including abnormalities in the composition of the blood or urine or abnormalities in imaging tests). Lab Interpretation Abnormal (test code = 97837-6) [facility] WITHOUT [id number] 09:48:00 Test Item Value Reference Range Interpretation Comments WBC (test code = 6690-2) See_Comment H [A utomated message] The system [employer] generated this result transmit breanna reference range : 4.30 - 11.10 10*3/?L. The reference range was not used to interpret this result as normal/abnormal . RBC (test code = 789-8) See_Comment [Au tomated message] The system [employer] generated this result transmit breanna reference range : 3.93 - 5.25 10* 6/?L. The reference r renzo was not used to interpret this result as normal/abnormal . HGB (test code = 718-7) 13.4 g/dL 11.6-15 HCT (test code = 4544-3) 40.7 % 35.7-45.2 MCH (test code = 785-6) 31.0 pg 25.9-32.8 MCV (test code = 787-2) 94.2 fL 80.6-95.5 MCHC (test code = 786-4) 32.9 g/dL 31.6-35.1 PLT (test code = 777-3) See_Comment [Au tomated message] The system [employer] generated this result transmit breanna reference range : 166 - 358 10*3/?L. The reference range was not used to interpret this result as normal/abnormal . MPV (test code = 10.5 fL 9.5-12.9 32491-2) RDW-CV (test code = 12.2 % 12-15.5 788-0) RDW-SD (test code = 42.5 fL 39-49.9 20763-2) NRBC x10^3 (test code = <0.01 See_Comment [Au tomated message] 9380069677) The system [employer] generated this result transmit breanna reference range : 10*3/?L. The reference range was not used to interpret this result as normal/abnormal . NRBC/100 WBC (test code See_Comment [Au tomated message] = 0893673702) The system [employer] generated this result transmit breanna reference range : 0.0 - 10.0 /100 WBC s. The reference r renzo was not used to interpret this result as normal/abnormal . IPF % (test code = 8926688842) Lab Interpretation (test Abnormal code = 79108-1) [facility]2020[facility] 00:40:00 Test Item Value Reference Range Interpretation Comments APPEARANCE (test code = Cloudy Clear A 1329357717) COLOR (test code = Yellow Yellow 4788310229) PH (test code = 4.8-8.0 4605205991) SP GRAVITY (test code = 1.003-1.030 7146936926) GLU U QUAL (test code = Normal Normal 6553016518) BLOOD (test code = Negative Negative Interfere nce from 1821749216) ascorbic acid m ay cause false neg ative results. KETONES (test code = Negative Negative 0363807623) PROTEIN (test code = Negative Negative 2887-8) UROBILIN (test code = Normal Normal 3323616318) BILIRUBIN (test code = Negative Negative 4410374033) NITRITE (test code = Negative Negative 8854687931) LEUK LOGAN (test code = Negative Negative 8608779353) RBC/HPF (test code = See_Comment H [Autom ated message] 8369852577) The system [employer] generated this result transmitted ref erence range: 0 - 3 HP F. The reference range was not used to int erpret this result as normal/abnormal . WBC/HPF (test code = See_Comment [Autom ated message] 2325480045) The system [employer] generated this result transmitted ref erence range: 0 - 5 HP F. The reference range was not used to int erpret this result as normal/abnormal . BACTERIA (test code = Negative Negative 8691089130) SQ EPITH (test code = <1 See_Comment [Auto mated message] 7160934916) The system [employer] generated this result transmitted ref erence range: <=2 HPF. The reference range was not used to int erpret this result as normal/abnormal . ASCORBIC ACID (test code 40 mg/dL = 4390432075) Lab Interpretation (test Abnormal code = 39224-2) [facility] (NA, K, CL, CO2, GLUCOSE, BUN, CREATININE, CA)2020-01-05 14:19:00 Test Item Value Reference Range Interpretation Comments NA (test code = 145 mmol/L 135-145 1291565710) K (test code = 4.7 mmol/L 3.5-5 Slight 4492167800) hemolysis CL (test code = 110 mmol/L 98-108 H 5910519254) CO2 TOTAL (test code 28 mmol/L 23-31 = 7738771149) AGAP (test code = 2-16 2187081700) BUN (test code = 32 mg/dL 7-23 H Slight 7623000038) hemolysis GLUCOSE (test code = 103 mg/dL 70-110 0869994713) CREATININE (test code 0.77 mg/dL 0.5-1.04 = 0065845415) CALCIUM (test code = 9.9 mg/dL 8.6-10.6 4163018696) eGFR Calculation mL/min/1.73m2 (Non-) (test code = 3015521553) eGFR Calculation mL/min/1.73m2 () (test code = 0817614960) TONE (test code = TONE) Association of Glomerular Filtration Rate (GFR) and Staging of Kidney Disease* + -----+ --------+ +| GFR (mL/min/1.73 m2) ?| With Kidney Damage ?| ?Without Kidney Damage+ +------- +---- --+| ?>90 ?| ?Stage one ?| ? Normal ?+ ------+ ---------+--------- +| ?60-89 ?| ?Stage two ?| ? Decreased GFR ? + -----+ --------+ +| ?30-59 ?| ?Stage three ?| ? Stage three ? + -----+ --------+ +| ?15-29 ?| ?Stage four ? | ? Stage four ?+ ------+ ---------+--------- +| ?<15 (or dialysis) ? ?| ?Stage five ? | ? Stage five ?+ ------+ ---------+--------- + *Each stage assumes the associated GFR level has been in effect for at least three months. ?Stages 1 to 5, with or without kidney disease, indicate chronic kidney disease. Notes: Determination of stages one and two (with eGFR >59mL/min/1.73 m2) requires estimation of kidney damage for at least three months as defined by structural or functional abnormalities of the kidney, manifested by either:Pathological abnormalities or Markers of kidney damage (including abnormalities in the composition of the blood or urine or abnormalities in imaging tests). Lab Interpretation Abnormal (test code = 74921-4) [facility] WITHOUT [id number] 14:11:00 Test Item Value Reference Range Interpretation Comments WBC (test code = 6690-2) See_Comment H [A utomated message] The system [employer] generated this result transmit breanna reference range : 4.30 - 11.10 10*3/?L. The reference range was not used to interpret this result as normal/abnormal . RBC (test code = 789-8) See_Comment [Au tomated message] The system [employer] generated this result transmit breanna reference range : 3.93 - 5.25 10* 6/?L. The reference r renzo was not used to interpret this result as normal/abnormal . HGB (test code = 718-7) 15.0 g/dL 11.6-15 HCT (test code = 4544-3) 44.9 % 35.7-45.2 MCH (test code = 785-6) 31.6 pg 25.9-32.8 MCV (test code = 787-2) 94.5 fL 80.6-95.5 MCHC (test code = 786-4) 33.4 g/dL 31.6-35.1 PLT (test code = 777-3) See_Comment [Au tomated message] The system [employer] generated this result transmit breanna reference range : 166 - 358 10*3/?L. The reference range was not used to interpret this result as normal/abnormal . MPV (test code = 10.5 fL 9.5-12.9 32792-8) RDW-CV (test code = 12.3 % 12-15.5 788-0) RDW-SD (test code = 42.5 fL 39-49.9 26352-7) NRBC x10^3 (test code = <0.01 See_Comment [Au tomated message] 4419136137) The system [employer] generated this result transmit breanna reference range : 10*3/?L. The reference range was not used to interpret this result as normal/abnormal . NRBC/100 WBC (test code See_Comment [Au tomated message] = 4116356606) The system [employer] generated this result transmit breanna reference range : 0.0 - 10.0 /100 WBC s. The reference r renzo was not used to interpret this result as normal/abnormal . IPF % (test code = 4369936335) Lab Interpretation (test Abnormal code = 59207-0) [facility], (ERIC)2020-01-04 14:56:30 1. ?Episodes of both laryngeal penetration and aspiration observed. 2. ?Please see separate Speech Pathology report for recommendations andadditional findings. Preliminary Report Dictated by Resident: Any Torres I, Ángela Singletary MD., have reviewed this study and agree with the abovereport.FL MODIFIED BARIUM SWALLOW HISTORY: 59 years-old; Female; dysphagia TECHNIQUE: A video swallowing exam with fluoroscopy was performed inconjunction with Speech Pathology who administered multiple consistenciesof barium. Fluoroscopy was performed under the supervision of aradiologist. COMPARISON: None FINDINGS: Episodes of both laryngeal penetration and aspiration were observed. [facility], Radiant Results Inft User - 01/04/2020 9:57 AM CDTFL MODIFIED BARIUM SWALLOWHISTORY: 59 years-old; Female; dysphagiaTECHNIQUE: A video swallowing exam with fluoroscopy was performed inconjunction with Speech Pathology who administered multiple consistenciesof barium. Fluoroscopy was performed under the supervision of aradiologist. COMPARISON: NoneFINDINGS:Episodes of both laryngeal penetration and aspiration were observed.IMPRESSION1. Episodes of both laryngeal penetration and aspiration observed.2. Please see separate Speech Pathology report for recommendations andadditional findings.Preliminary Report Dictated by Resident: Ángela Mistry MD., have reviewed this study and agree with the abovereport.[facility] PLAC[facility] [id number] 16:13:50Successful placement of a 16 Ukrainian gastrostomy catheter withabsorbable gastropexy. I, as teaching ph ysician, was present during the entire procedure and/orduring the oleary components. Preliminary ReportDictated by Resident: Issa Cary MD., have reviewed this study and agree with the abovereport.EXAMINATION: PERCUTANEOUS GASTROSTOMY CATHETER PLACEMENT HISTORY/INDICATION: Dysphagia ATTENDING PRESENCE: ?As the attending radiologist, I was present in theroom during the entire procedure. ?Resident: Dr. Alberto Marcial. Resident:Dr. Talia Briseno MD. David Juan, SEDATION: Moderate sedation was administered under the attendingphysician's direction and continuous monitoring by a trained nursespecialist who was independent from those actually performing theprocedure. Total monitored sedation time is documented in Epic. RADIATION DOSE: 64.8 mGy. MEDICATIONS: 1mg IV glucagon was administered. IV Antibiotic: Cefazolin 1gIV once TECHNIQUE: The risks, benefits and alternatives were discussed and informedconsent was obtained. Prior to beginning the procedure, Elma Protocolwas performed to confirm the patient's identity and the planned procedure.Maximum sterile barri ers including cap, mask, hand hygiene, sterile gloves,sterile gown, large sterile drape and cutaneous antisepsis were used. The skin over the stomach was sterilely prepped, draped and infiltratedwith 1 percent lidocaine and 1 mg of intravenous glucagon was administered.The existing NG tube was used to inject air to distend the stomach. Fluoroscopy was used to determine a safe tract to the stomach. Due to overlapping bowel, a Marilu CT was performed with multiplanar 2-Dreformations made under a separate workstation under direct physiciansupervision. The Marilu CT images ?demonstrated a safe percutaneous accesswindow for gastrostomy tube placement and the bowel loops seen on planarfluoroscopy was located posterior to the stomach. The stomach was then accessed under fluoroscopic guidance, and 3 absorbablegastropexies were placed. The stomach was then accessed with a sheathed needle. The tract was dilatedover a guidewire to 22 Ukrainian, and a 16 Ukrainian gastrostomy tube wasadvanced into the stomach. The catheter was secured to the skin using thebumper mechanism after inflating the G-tube balloon with normal saline andcontrast admixture. ESTIMATED BLOOD LOSS: Minimal. CONDITION: Stable. DISCHARGED TO: Recovery and then to inpatient unit. FINDINGS: Final fluoroscopic images demonstrate the gastrostomy catheterwith its tip in the body of the stomach. No complications are identified. [facility], Radiant Results Inft User - 01/02/2020 11:15 AM CDTEXAMINATION: PERCUTANEOUS GASTROSTOMY CATHETER PLACEMENTHISTORY/INDICATION: Dysphagia ATTENDING PRESENCE: As the attending radiologist, I was present in theroomduring the entire procedure. Resident: Dr. Alberto Marcial. Resident:Dr. Talia Briseno MD. David Juan, DOSEDATION: Moderate sedation was administered under the attendingphysician's direction and continuous monitoring by a trained nursespecialist who was independent from those actually performing theprocedure. Total monitored sedation time is documented in Epic.RADIATION DOSE: 64.8 mGy.MEDICATIONS: 1mg IV glucagon was administered. IV Antibiotic: Cefazolin 1gIV onceTECHNIQUE: The risks, benefits and alternatives were discussed and informedconsent was obtained. Prior to beginning the procedure, Elma Protocolwas performed to confirm the patient's identity and the planned procedure.Maximum sterile barriers including cap, mask, hand hygiene, sterile gloves,sterile gown, large sterile drape and cutaneous antisepsis were used. The skin over the stomach was sterilely prepped, draped and in filtratedwith 1 percent lidocaine and 1 mg of intravenous glucagon was administered.The existing NG tube was used to inject air to distend the stomach. Fluoroscopy was used to determine a safe tract tothe stomach. Due to overlapping bowel, a Marilu CT was performed with multiplanar 2-Dreformations madeunder a separate workstation under direct physiciansupervision. The Marilu CT images demonstrated a safe percutaneous accesswindow for gastrostomy tube placement and the bowel loops seen on planarfluoroscopy was located posterior to the stomach.The stomach was then accessed under fluoroscopic guidance,and 3 absorbablegastropexies were placed. The stomach was then accessed with a sheathed needle. The tract was dilatedover a guidewire to 22 Ukrainian, and a 16 Ukrainian gastrostomy tube wasadvanced into thestomach. The catheter was secured to the skin using thebumper mechanism after inflating the G-tube balloon with normal saline andcontrast admixture. ESTIMATED BLOOD LOSS: Minimal.CONDITION: Stable.DISCHARGED TO: Recovery and then to inpatient unit. FINDINGS: Final fluoroscopic images demonstrate the gastrostomy catheterwith its tip in the body of the stomach. No complications are identified. IMPRESSIONSuccessful placement of a 16 Ukrainian gastrostomy catheter withabsorbable gastropexy.I, as teaching ph ysician, was present during the entire procedure and/orduring the oleary components.Preliminary Report Dictated by Resident: Issa Wilson MD., have reviewed this study and agree withthe abovereport. [facility] (NA, K, CL, CO2, GLUCOSE, BUN, CREATININE, CA)2020-01-01 10:21:00 Test Item Value Reference Range Interpretation Comments NA (test code = 138 mmol/L 135-145 3743205708) K (test code = 3.8 mmol/L 3.5-5 8008937098) CL (test code = 106 mmol/L 98-108 3837700262) CO2 TOTAL (test code = 26 mmol/L 23-31 6354715878) AGAP (test code = 2-16 3313016123) BUN (test code = 19 mg/dL 7-23 1970891082) GLUCOSE (test code = 121 mg/dL 70-110 H 2812718374) CREATININE (test code = 0.75 mg/dL 0.5-1.04 7581560336) CALCIUM (test code = 9.1 mg/dL 8.6-10.6 7501896394) eGFR Calculation mL/min/1.73m2 (Non-) (test code = 6805687272) eGFR Calculation mL/min/1.73m2 () (test code = 4371869879) TONE (test code = TONE) Association of Glomerular Filtration Rate (GFR) and Staging of Kidney Disease* + --+ --+ ------+| GFR (mL/min/1.73 m2) ?| With Kidney Damage ?| ?Without Kidney Damage+ --------+ --------+ +| ?>90 ?| ?Stage one ?| ? Normal ?+ ---+ ---+ -------+| ?60-89 ?| ?Stage two ?| ? Decreased GFR ? + --+ --+ ------+| ?30-59 ?| ?Stage three ?| ? Stage three ? + --+ --+ ------+| ?15-29 ?| ?Stage four ? | ? Stage four ?+ ---+ ---+ -------+| ?<15 (or dialysis) ? ?| ?Stage five ? | ? Stage five ?+ ---+ ---+ -------+ *Each stage assumes the associated GFR level has been in effect for at least three months. ?Stages 1 to 5, with or without kidney disease, indicate chronic kidney disease. Notes: Determination of stages one and two (with eGFR >59mL/min/1.73 m2) requires estimation of kidney damage for at least three months as defined by structural or functional abnormalities of the kidney, manifested by either:Pathological abnormalities or Markers of kidney damage (including abnormalities in the composition of the blood or urine or abnormalities in imaging tests). Lab Interpretation Abnormal (test code = 75325-2) [facility]2020-10-18 10:21:00 Test Item Value Reference Range Interpretation Comments MAGNESIUM (test code = 5259961689) 2.0 mg/dL 1.7-2.4 Lab Interpretation (test code = Normal 41061-4) [facility] WITH [id number] 09:47:00 Test Item Value Reference Range Interpretation Comments WBC (test code = See_Comment [Automated 6690-2) message] The sy stem which generated this result transmitted reference range : 4.30 - 11.10 10*3/?L. The reference range was not used to interpret this result as normal/abnormal . RBC (test code = See_Comment [Automated 789-8) message] The sy stem which generated this result transmitted reference range : 3.93 - 5.25 10*6/?L. The reference range was not used to interpret this result as normal/abnormal . HGB (test code = 13.0 g/dL 11.6-15 718-7) HCT (test code = 39.8 % 35.7-45.2 4544-3) MCV (test code = 95.7 fL 80.6-95.5 H 787-2) MCH (test code = 31.3 pg 25.9-32.8 785-6) MCHC (test code = 32.7 g/dL 31.6-35.1 786-4) RDW-SD (test code = 41.7 fL 39-49.9 31301-0) RDW-CV (test code = 11.9 % 12-15.5 L 788-0) PLT (test code = See_Comment [Automated 777-3) message] The sy stem which generated this result transmitted reference range : 166 - 358 10*3/ ?L. The reference r renzo was not used to interpret this result as normal/abnormal . MPV (test code = 11.0 fL 9.5-12.9 08598-5) NRBC/100 WBC (test See_Comment [Automat ed code = 6878950906) message] The system which generated this result transmitted reference range : 0.0 - 10.0 /100 WBCs. The refer ence range was not u sed to interpret th is result as normal/abnormal . NRBC x10^3 (test code <0.01 See_Comment [Auto mated = 4967725486) message] The s ystem which generated this result transmitted reference range : 10*3/?L. The reference range was not used to interpret this result as normal/abnormal . GRAN MAT (NEUT) % 66.5 % (test code = 770-8) IMM GRAN % (test code 0.40 % = 6810046969) LYMPH % (test code = 20.9 % 736-9) MONO % (test code = 10.0 % 5905-5) EOS % (test code = 1.7 % 713-8) BASO % (test code = 0.5 % 706-2) GRAN MAT x10^3(ANC) 5.38 10*3/uL 1.88-7.09 (test code = 1756046373) IMM GRAN x10^3 (test 0.03 10*3/uL 0-0.06 code = 1118097066) LYMPH x10^3 (test code 1.69 10*3/uL 1.32-3.29 = 731-0) MONO x10^3 (test code 0.81 10*3/uL 0.33-0.92 = 742-7) EOS x10^3 (test code = 0.14 10*3/uL 0.03-0.39 711-2) BASO x10^3 (test code 0.04 10*3/uL 0.01-0.07 = 704-7) Lab Interpretation Abnormal (test code = 48493-8) [facility] (NA, K, CL, CO2, GLUCOSE, BUN, CREATININE, CA)2019-12-31 10:16:00 Test Item Value Reference Range Interpretation Comments NA (test code = 136 mmol/L 135-145 5871488233) K (test code = 4.0 mmol/L 3.5-5 2665949925) CL (test code = 108 mmol/L 98-108 7739229737) CO2 TOTAL (test code = 22 mmol/L 23-31 L 5161941204) AGAP (test code = 2-16 5482579960) BUN (test code = 16 mg/dL 7-23 6078799397) GLUCOSE (test code = 89 mg/dL 70-110 2275746769) CREATININE (test code = 0.67 mg/dL 0.5-1.04 6649113862) CALCIUM (test code = 8.3 mg/dL 8.6-10.6 L 3521321568) eGFR Calculation mL/min/1.73m2 (Non-) (test code = 9332018089) eGFR Calculation mL/min/1.73m2 () (test code = 0930559513) TONE (test code = TONE) Association of Glomerular Filtration Rate (GFR) and Staging of Kidney Disease* + --+ --+ ------+| GFR (mL/min/1.73 m2) ?| With Kidney Damage ?| ?Without Kidney Damage+ --------+ --------+ +| ?>90 ?| ?Stage one ?| ? Normal ?+ ---+ ---+ -------+| ?60-89 ?| ?Stage two ?| ? Decreased GFR ? + --+ --+ ------+| ?30-59 ?| ?Stage three ?| ? Stage three ? + --+ --+ ------+| ?15-29 ?| ?Stage four ? | ? Stage four ?+ ---+ ---+ -------+| ?<15 (or dialysis) ? ?| ?Stage five ? | ? Stage five ?+ ---+ ---+ -------+ *Each stage assumes the associated GFR level has been in effect for at least three months. ?Stages 1 to 5, with or without kidney disease, indicate chronic kidney disease. Notes: Determination of stages one and two (with eGFR >59mL/min/1.73 m2) requires estimation of kidney damage for at least three months as defined by structural or functional abnormalities of the kidney, manifested by either:Pathological abnormalities or Markers of kidney damage (including abnormalities in the composition of the blood or urine or abnormalities in imaging tests). Lab Interpretation Abnormal (test code = 91730-3) [facility] 10[facility]16:00 Test Item Value Reference Range Interpretation Comments MAGNESIUM (test code = 7695879717) 1.8 mg/dL 1.7-2.4 Lab Interpretation (test code = Normal 21792-1) [facility] [id number] 09:29:00 Test Item Value Reference Range Interpretation Comments WBC (test code = See_Comment [Automated 1390-2) message] The sy stem which generated this result transmitted reference range : 4.30 - 11.10 10*3/?L. The reference range was not used to interpret this result as normal/abnormal . RBC (test code = See_Comment [Automated 789-8) message] The sy stem which generated this result transmitted reference range : 3.93 - 5.25 10*6/?L. The reference range was not used to interpret this result as normal/abnormal . HGB (test code = 13.1 g/dL 11.6-15 718-7) HCT (test code = 39.8 % 35.7-45.2 4544-3) MCV (test code = 95.4 fL 80.6-95.5 787-2) MCH (test code = 31.4 pg 25.9-32.8 785-6) MCHC (test code = 32.9 g/dL 31.6-35.1 786-4) RDW-SD (test code = 41.3 fL 39-49.9 12476-5) RDW-CV (test code = 11.9 % 12-15.5 L 788-0) PLT (test code = See_Comment [Automated 777-3) message] The sy stem which generated this result transmitted reference range : 166 - 358 10*3/ ?L. The reference r renzo was not used to interpret this result as normal/abnormal . MPV (test code = 11.0 fL 9.5-12.9 24886-9) NRBC/100 WBC (test See_Comment [Automat ed code = 5659004406) message] The system which generated this result transmitted reference range : 0.0 - 10.0 /100 WBCs. The refer ence range was not u sed to interpret th is result as normal/abnormal . NRBC x10^3 (test code <0.01 See_Comment [Auto mated = 9723217108) message] The s ystem which generated this result transmitted reference range : 10*3/?L. The reference range was not used to interpret this result as normal/abnormal . GRAN MAT (NEUT) % 71.1 % (test code = 770-8) IMM GRAN % (test code 0.40 % = 3922594036) LYMPH % (test code = 19.5 % 736-9) MONO % (test code = 7.7 % 5905-5) EOS % (test code = 1.0 % 713-8) BASO % (test code = 0.3 % 706-2) GRAN MAT x10^3(ANC) 5.62 10*3/uL 1.88-7.09 (test code = 0707654089) IMM GRAN x10^3 (test 0.03 10*3/uL 0-0.06 code = 0123155725) LYMPH x10^3 (test code 1.54 10*3/uL 1.32-3.29 = 731-0) MONO x10^3 (test code 0.61 10*3/uL 0.33-0.92 = 742-7) EOS x10^3 (test code = 0.08 10*3/uL 0.03-0.39 711-2) BASO x10^3 (test code <0.03 0.01-0.07 = 704-7) Lab Interpretation Abnormal (test code = 55262-6) [facility] [id number] 13:34:49 New faint left lower lung opacity may represent developing infectiousetiology. Preliminary Report Dictated by Resident: Isaiah Rios MD., have reviewed this study and agree with the abovereport.EXAM: XR CHEST 1 12/30/2019 6:40 AM HISTORY: 59 years-old Female with cough TECHNIQUE: Portable AP view of the chest. COMPARISON: CXR 12/29/2019 FINDINGS: Lines and tubes: Enteric tube is seen coursing subdiaphragmatically withtip outside the pzwuo-qc-ompr. Cardiomediastinal: The cardiomediastinal silhouette is normal. Lungs and pleura: The hilar vasculature is more prominent on the study,possibly due to technique. A new faint opacity is seen in the left lowerlung field, suggestive of a focal underlying consolidation. Redemonstrationof emphysematous changes. Musculoskeletal: No acute skeletal abnormality. Similar appearance ofwidened right acromioclavicular joint. [facility], RadiantResults Inft User - 12/30/2019 8:35 AM CDTEXAM: XR CHEST 1 VW 12/30/2019 6:40 AMHISTORY: 59 years-old Female with cough TECHNIQUE: Portable AP view of the chest. COMPARISON: CXR 12/29/2019FINDINGS: Lines and tubes: Enteric tube is seen coursing subdiaphragmatically withtip outside the xtvjy-qb-ozuh.Ca rdiomediastinal: The cardiomediastinal silhouette is normal.Lungs and pleura: The hilar vasculature is more prominent on the study,possibly due to technique. A new faint opacity is seen in the left lowerlung field, suggestive of a focal underlying consolidation. Redemonstrationof emphysematous changes. Musculoskeletal: No acute skeletal abnormality. Similar appearance ofwidened right acromioclavicularjoint.IMPRESSIONNew faint left lower lung opacity may represent developing infectiousetiology.Preliminary Report Dictated by Resident: Isaiah Hurst MD., have reviewed this study andagree with the abovereport.[facility] CULTURE [id number] 11:01:00 Test Item Value Reference Range Interpretation Comments Blood Culture-Aerobic No organisms No growth Previo us (test code = 17541-8) isolated prelim inary verified result was Culture In Progress on 12/25/2019 at 0901 CDTPreviou s preliminary verified result was No growth a t 24 hours on 12/26/2019 at 0601 CDTPreviou s preliminary verified result was No growth a t 48 hours on 12/27/2019 at 0601 CDTPreviou s preliminary verified result was No growth a t 72 hours on 12/28/2019 at 0601 CDT Blood No organisms No growth Previous Culture-Anaerobic isolated preliminar y (test code = 52019-8) verifi ed result was Culture In Progress on 12/25/2019 at 0901 CDTPreviou s preliminary verified result was No growth a t 24 hours on 12/26/2019 at 0601 CDTPreviou s preliminary verified result was No growth a t 48 hours on 12/27/2019 at 0601 CDTPreviou s preliminary verified result was No growth a t 72 hours on 12/28/2019 at 0601 CDT Lab Interpretation Normal (test code = 48030-0) [facility] CULTURE [id number] 11:01:00 Test Item Value Reference Range Interpretation Comments Blood Culture-Aerobic No organisms No growth Previo us (test code = 38429-5) isolated prelim inary verified result was Culture In Progress on 12/25/2019 at 0901 CDTPreviou s preliminary verified result was No growth a t 24 hours on 12/26/2019 at 0601 CDTPreviou s preliminary verified result was No growth a t 48 hours on 12/27/2019 at 0601 CDTPreviou s preliminary verified result was No growth a t 72 hours on 12/28/2019 at 0601 CDT Blood No organisms No growth Previous Culture-Anaerobic isolated preliminar y (test code = 42046-9) verifi ed result was Culture In Progress on 12/25/2019 at 0901 CDTPreviou s preliminary verified result was No growth a t 24 hours on 12/26/2019 at 0601 CDTPreviou s preliminary verified result was No growth a t 48 hours on 12/27/2019 at 0601 CDTPreviou s preliminary verified result was No growth a t 72 hours on 12/28/2019 at 0601 CDT TONE (test code = TONE) Optimal blood volume for culture is 8-10 mL per bottle. A suboptimal volume of blood was collected for this culture, which could adversely affect recovery and/or time of detection of organisms. Interpret results accordingly. Lab Interpretation Normal (test code = 69723-2) [facility] (NA, K, CL, CO2, GLUCOSE, BUN, CREATININE, CA)2019-12-30 08:55:00 Test Item Value Reference Range Interpretation Comments NA (test code = 141 mmol/L 135-145 0850138161) K (test code = 4.0 mmol/L 3.5-5 4375489238) CL (test code = 106 mmol/L 98-108 9647928802) CO2 TOTAL (test code = 27 mmol/L 23-31 1109390712) AGAP (test code = 2-16 0635371242) BUN (test code = 18 mg/dL 7-23 7383190911) GLUCOSE (test code = 91 mg/dL 70-110 8246555217) CREATININE (test code 0.69 mg/dL 0.5-1.04 = 1391858504) CALCIUM (test code = 8.6 mg/dL 8.6-10.6 9555475478) eGFR Calculation mL/min/1.73m2 (Non-) (test code = 5001110020) eGFR Calculation mL/min/1.73m2 () (test code = 8191592274) TONE (test code = TONE) Association of Glomerular Filtration Rate (GFR) and Staging of Kidney Disease* + -+ + ---+| GFR (mL/min/1.73 m2) ?| With Kidney Damage ?| ?Without Kidney Damage+ -------+ ------+ ---------+| ?>90 ?| ?Stage one ?| ? Normal ?+ --+ -+ ----+| ?60-89 ?| ?Stage two ?| ? Decreased GFR ? + -+ + ---+| ?30-59 ?| ?Stage three ?| ? Stage three ? + -+ + ---+| ?15-29 ?| ?Stage four ? | ? Stage four ?+ --+ -+ ----+| ?<15 (or dialysis) ? ?| ?Stage five ? | ? Stage five ?+ --+ -+ ----+ *Each stage assumes the associated GFR level has been in effect for at least three months. ?Stages 1 to 5, with or without kidney disease, indicate chronic kidney disease. Notes: Determination of stages one and two (with eGFR >59mL/min/1.73 m2) requires estimation of kidney damage for at least three months as defined by structural or functional abnormalities of the kidney, manifested by either:Pathological abnormalities or Markers of kidney damage (including abnormalities in the composition of the blood or urine or abnormalities in imaging tests). [facility] 08:55:00 Test Item Value Reference Range Interpretation Comments MAGNESIUM (test code = 1462325227) 1.9 mg/dL 1.7-2.4 Lab Interpretation (test code = Normal 45872-5) [facility] WITH [id number] 08:43:00 Test Item Value Reference Range Interpretation Comments WBC (test code = See_Comment [Automated 5290-2) message] The sy stem which generated this result transmitted reference range : 4.30 - 11.10 10*3/?L. The reference range was not used to interpret this result as normal/abnormal . RBC (test code = See_Comment [Automated 789-8) message] The sy stem which generated this result transmitted reference range : 3.93 - 5.25 10*6/?L. The reference range was not used to interpret this result as normal/abnormal . HGB (test code = 13.3 g/dL 11.6-15 718-7) HCT (test code = 40.4 % 35.7-45.2 4544-3) MCV (test code = 96.0 fL 80.6-95.5 H 787-2) MCH (test code = 31.6 pg 25.9-32.8 785-6) MCHC (test code = 32.9 g/dL 31.6-35.1 786-4) RDW-SD (test code = 42.8 fL 39-49.9 48483-3) RDW-CV (test code = 12.2 % 12-15.5 788-0) PLT (test code = See_Comment [Automated 777-3) message] The sy stem which generated this result transmitted reference range : 166 - 358 10*3/ ?L. The reference r renzo was not used to interpret this result as normal/abnormal . MPV (test code = 11.3 fL 9.5-12.9 82127-7) NRBC/100 WBC (test See_Comment [Automat ed code = 9809690052) message] The system which generated this result transmitted reference range : 0.0 - 10.0 /100 WBCs. The refer ence range was not u sed to interpret th is result as normal/abnormal . NRBC x10^3 (test code <0.01 See_Comment [Auto mated = 9568192160) message] The s ystem which generated this result transmitted reference range : 10*3/?L. The reference range was not used to interpret this result as normal/abnormal . GRAN MAT (NEUT) % 69.8 % (test code = 770-8) IMM GRAN % (test code 0.30 % = 2256562473) LYMPH % (test code = 17.1 % 736-9) MONO % (test code = 10.4 % 5905-5) EOS % (test code = 2.1 % 713-8) BASO % (test code = 0.3 % 706-2) GRAN MAT x10^3(ANC) 6.68 10*3/uL 1.88-7.09 (test code = 2535263653) IMM GRAN x10^3 (test 0.03 10*3/uL 0-0.06 code = 5372712387) LYMPH x10^3 (test code 1.63 10*3/uL 1.32-3.29 = 731-0) MONO x10^3 (test code 0.99 10*3/uL 0.33-0.92 H = 742-7) EOS x10^3 (test code = 0.20 10*3/uL 0.03-0.39 711-2) BASO x10^3 (test code 0.03 10*3/uL 0.01-0.07 = 704-7) Lab Interpretation Abnormal (test code = 06758-8) [facility] [id number] 23:25:01 Appropriate positioning enteric tube. 2. Nonobstructive bowel gas pattern. Preliminary Report Dictated by Resident: Martha Bartlett MD., have reviewed this study and agree with theabove report.EXAM: XR KUB HISTORY: Dobbhoff placement COMPARISON: Abdomen radiograph 12/26/2019 FINDINGS: The weighted enteric tube tip projects over the gastric body and pointedinferiorly.Thebowel gas pattern is unremarkable. No pathologically dilated bowelloops. Vascular calcifications arenoted. No acute bony abnormality is present. [facility], [facility]iant Results Inft User - 12/29/2019 6:26 PMCDTEXAM: XR KUBHISTORY: Dobbhoff placement COMPARISON: Abdomen radiograph 12/26/2019FINDINGS:The weighted enteric tube tip projects over the gastric body and pointedinferiorly.The bowel gas pattern is unremarkable. No pathologically dilated bowelloops.Vascular calcifications are noted.No acute bony abnormality is present.IMPRESSIONAppropriate positioning enteric tube. 2. Nonobstructive bowel gas pattern.Preliminary Report Dictated by Resident: Martha Anderson MD., have reviewed this study and agree with theabove report.[facility] [id number] 20:12:56 No acute cardiopulmonary abnormality. Chronic emphysematous changes. Preliminary Report Dictated byResident: Martin Rios MD., have reviewed this study and agree with theabovereport.EXAM: XR CHEST 1 VW 12/29/2019 11:59 AM HISTORY: 59 years-old Female with cough TECHNIQUE: Portable AP view of the chest. COMPARISON: CXR 12/24/2019 FINDINGS: Lines and tubes: Interval placement of enteric tube coursingsubdiaphragmatically with tip outside the fxkqs-yl-eofh, likely within thestomach. Cardiomediastinal: The cardiomediastinal silhouette is unchanged. Lungs and pleura: Emphysematous changes more prominent at the lung apicesare seen, similar to prior. No focal consolidation, pneumothorax, orpleural effusion is seen. Musculoskeletal: No acute skeletal abnormality. Osteopenia. The rightacromioclavicular joint space is widened, similar to prior [facility], [facility]iant Results Inft User -12/29/2019 3:14 PM CDTEXAM: XR CHEST 1 VW 12/29/2019 11:59 AMHISTORY: 59 years-old Female with cough TECHNIQUE: Portable AP view of the chest. COMPARISON: CXR 12/24/2019FINDINGS: Lines and tubes: Interval placement of enteric tube coursingsubdiaphragmatically with tip outside the dtgdx-se-andv, likely within thestomach.Cardiomediastinal: The cardiomediastinal silhouette is unchanged.Lungs and pleura: Emphysematous changes more prominent at the lung apicesare seen, similar to prior. No focal consolidation, pneumothorax, orpleural effusion is seen.Musculoskeletal: No acute skeletal abnormality. Osteo penia. The rightacromioclavicular joint space is widened, similar to priorIMPRESSIONNo acute cardiopulmonary abnormality. Chronic emphysematous changes.Preliminary Report Dictated by Resident: Martin Hurst MD., have reviewed this study and agree with theabove report. [facility] + LACTIC [id number] 16:56:00 Test Item Value Reference Range Interpretation Comments PH (test code = 2) 7.35-7.45 PCO2 (test code = See_Comment [Automat ed 6260051939) message] The sy stem which generated this result transmitted reference range : 35 - 45 mmHg. The reference range was not used to interpret this result as normal/abnormal . PO2 (test code = See_Comment [Automated 9874290208) message] The sy stem which generated this result transmitted reference range : 80 - 100 mmHg. The reference range was not used to interpret this result as normal/abnormal . HCO3 (test code = See_Comment [Automate d 6458605739) message] The sy stem which generated this result transmitted reference range : 22 - 26 mEq/L. The reference range was not used to interpret this result as normal/abnormal . BE (test code = See_Comment [Automated 7689190352) message] The sy stem which generated this result transmitted reference range : -3.0 - 3.0 mEq/ L. The reference r renzo was not used to interpret this result as normal/abnormal . THB (test code = 14.4 g/dL 12-16 5016841421) %O2HB (test code = 94.3 % 94-99 2084015581) %COHB ART (test code = 0.8 % 0-1.5 3472000028) %METHB ART (test code = 0.0 % 0.4-1.5 L 1831813282) VOL%O2 ART (test code = 19.1 % 15-23 7347335116) NA (test code = 136 mmol/L 135-145 0099507888) K+ (test code = 4.2 mmol/L 3.5-5 9213766150) AC CA IONZ (test code = 5.00 mg/dL 4.5-5.3 8136145929) GLUCOSE (test code = 118 mg/dL 70-110 H 9505784284) LACTIC ACID (test code 0.98 mmol/L = 0867986856) Lab Interpretation Abnormal (test code = 90220-2) [facility]2019-12-29 16:49:00 Test Item Value Reference Range Interpretation Comments POCT GLU (test code = 3069700758) 108 mg/dL 70-110 Lab Interpretation (test code = Normal 71255-2) [facility] METABOLIC PANEL (NA, K, CL, CO2, GLUCOSE, BUN, CREATININE, CA)2019-12-29 10:35:00 Test Item Value Reference Range Interpretation Comments NA (test code = 135 mmol/L 135-145 7999037725) K (test code = 4.2 mmol/L 3.5-5 1585344548) CL (test code = 104 mmol/L 98-108 1076356427) CO2 TOTAL (test code = 26 mmol/L 23-31 1784626191) AGAP (test code = 2-16 8020494115) BUN (test code = 16 mg/dL 7-23 8567592210) GLUCOSE (test code = 102 mg/dL 70-110 7541671579) CREATININE (test code 0.60 mg/dL 0.5-1.04 = 9061258601) CALCIUM (test code = 9.2 mg/dL 8.6-10.6 8054263926) eGFR Calculation mL/min/1.73m2 (Non-) (test code = 0977911985) eGFR Calculation mL/min/1.73m2 () (test code = 0609775833) TONE (test code = TONE) Association of Glomerular Filtration Rate (GFR) and Staging of Kidney Disease* + -+ + ---+| GFR (mL/min/1.73 m2) ?| With Kidney Damage ?| ?Without Kidney Damage+ -------+ ------+ ---------+| ?>90 ?| ?Stage one ?| ? Normal ?+ --+ -+ ----+| ?60-89 ?| ?Stage two ?| ? Decreased GFR ? + -+ + ---+| ?30-59 ?| ?Stage three ?| ? Stage three ? + -+ + ---+| ?15-29 ?| ?Stage four ? | ? Stage four ?+ --+ -+ ----+| ?<15 (or dialysis) ? ?| ?Stage five ? | ? Stage five ?+ --+ -+ ----+ *Each stage assumes the associated GFR level has been in effect for at least three months. ?Stages 1 to 5, with or without kidney disease, indicate chronic kidney disease. Notes: Determination of stages one and two (with eGFR >59mL/min/1.73 m2) requires estimation of kidney damage for at least three months as defined by structural or functional abnormalities of the kidney, manifested by either:Pathological abnormalities or Markers of kidney damage (including abnormalities in the composition of the blood or urine or abnormalities in imaging tests). [facility]2020-[facility] 10:35:00 Test Item Value Reference Range Interpretation Comments MAGNESIUM (test code = 0780629816) 1.8 mg/dL 1.7-2.4 Lab Interpretation (test code = Normal 83215-7) [facility] [id number] 10:09:00 Test Item Value Reference Range Interpretation Comments WBC (test code = See_Comment [Automated 6890-2) message] The sy stem which generated this result transmitted reference range : 4.30 - 11.10 10*3/?L. The reference range was not used to interpret this result as normal/abnormal . RBC (test code = See_Comment [Automated 789-8) message] The sy stem which generated this result transmitted reference range : 3.93 - 5.25 10*6/?L. The reference range was not used to interpret this result as normal/abnormal . HGB (test code = 13.8 g/dL 11.6-15 718-7) HCT (test code = 41.7 % 35.7-45.2 4544-3) MCV (test code = 93.1 fL 80.6-95.5 787-2) MCH (test code = 30.8 pg 25.9-32.8 785-6) MCHC (test code = 33.1 g/dL 31.6-35.1 786-4) RDW-SD (test code = 42.3 fL 39-49.9 15067-9) RDW-CV (test code = 12.3 % 12-15.5 788-0) PLT (test code = See_Comment [Automated 777-3) message] The sy stem which generated this result transmitted reference range : 166 - 358 10*3/ ?L. The reference r renzo was not used to interpret this result as normal/abnormal . MPV (test code = 11.1 fL 9.5-12.9 90888-1) NRBC/100 WBC (test See_Comment [Automat ed code = 1710867090) message] The system which generated this result transmitted reference range : 0.0 - 10.0 /100 WBCs. The refer ence range was not u sed to interpret th is result as normal/abnormal . NRBC x10^3 (test code <0.01 See_Comment [Auto mated = 2857236483) message] The s ystem which generated this result transmitted reference range : 10*3/?L. The reference range was not used to interpret this result as normal/abnormal . GRAN MAT (NEUT) % 78.0 % (test code = 770-8) IMM GRAN % (test code 0.20 % = 7386546942) LYMPH % (test code = 10.3 % 736-9) MONO % (test code = 10.7 % 5905-5) EOS % (test code = 0.5 % 713-8) BASO % (test code = 0.3 % 706-2) GRAN MAT x10^3(ANC) 8.63 10*3/uL 1.88-7.09 H (test code = 3471262923) IMM GRAN x10^3 (test <0.03 0-0.06 code = 0286314564) LYMPH x10^3 (test code 1.14 10*3/uL 1.32-3.29 L = 731-0) MONO x10^3 (test code 1.18 10*3/uL 0.33-0.92 H = 742-7) EOS x10^3 (test code = 0.06 10*3/uL 0.03-0.39 711-2) BASO x10^3 (test code 0.03 10*3/uL 0.01-0.07 = 704-7) Lab Interpretation Abnormal (test code = 01199-7) [facility] [id number] 22:23:00 Test Item Value Reference Range Interpretation Comments NT-proBNP (test code 254 pg/mL See_Comment H [Autom ated = 0382718791) message] The system which generated this result transmitted reference range : <=125. The reference range was not used to interpret this result as normal/abnormal . TONE (test code = TONE) Biotin has been reported to cause a negative bias, interpret results relative to patient's use of biotin. Lab Interpretation Abnormal (test code = 30846-9) [facility] WITH [id number] 08:29:00 Test Item Value Reference Range Interpretation Comments WBC (test code = See_Comment [Automated 6690-2) message] The sy stem which generated this result transmitted reference range : 4.30 - 11.10 10*3/?L. The reference range was not used to interpret this result as normal/abnormal . RBC (test code = See_Comment [Automated 789-8) message] The sy stem which generated this result transmitted reference range : 3.93 - 5.25 10*6/?L. The reference range was not used to interpret this result as normal/abnormal . HGB (test code = 13.4 g/dL 11.6-15 718-7) HCT (test code = 40.5 % 35.7-45.2 4544-3) MCV (test code = 94.4 fL 80.6-95.5 787-2) MCH (test code = 31.2 pg 25.9-32.8 785-6) MCHC (test code = 33.1 g/dL 31.6-35.1 786-4) RDW-SD (test code = 43.0 fL 39-49.9 64419-3) RDW-CV (test code = 12.4 % 12-15.5 788-0) PLT (test code = See_Comment [Automated 777-3) message] The sy stem which generated this result transmitted reference range : 166 - 358 10*3/ ?L. The reference r renzo was not used to interpret this result as normal/abnormal . MPV (test code = 10.8 fL 9.5-12.9 66337-3) NRBC/100 WBC (test See_Comment [Automat ed code = 2949296486) message] The system which generated this result transmitted reference range : 0.0 - 10.0 /100 WBCs. The refer ence range was not u sed to interpret th is result as normal/abnormal . NRBC x10^3 (test code <0.01 See_Comment [Auto mated = 3836189653) message] The s ystem which generated this result transmitted reference range : 10*3/?L. The reference range was not used to interpret this result as normal/abnormal . GRAN MAT (NEUT) % 74.1 % (test code = 770-8) IMM GRAN % (test code 0.40 % = 4002303687) LYMPH % (test code = 14.8 % 736-9) MONO % (test code = 9.6 % 5905-5) EOS % (test code = 0.7 % 713-8) BASO % (test code = 0.4 % 706-2) GRAN MAT x10^3(ANC) 5.98 10*3/uL 1.88-7.09 (test code = 3426835054) IMM GRAN x10^3 (test 0.03 10*3/uL 0-0.06 code = 6530030571) LYMPH x10^3 (test code 1.19 10*3/uL 1.32-3.29 L = 731-0) MONO x10^3 (test code 0.77 10*3/uL 0.33-0.92 = 742-7) EOS x10^3 (test code = 0.06 10*3/uL 0.03-0.39 711-2) BASO x10^3 (test code 0.03 10*3/uL 0.01-0.07 = 704-7) Lab Interpretation Abnormal (test code = 18698-7) [facility] METABOLIC PANEL (NA, K, CL, CO2, GLUCOSE, BUN, CREATININE, CA)2019-12-28 08:13:00 Test Item Value Reference Range Interpretation Comments NA (test code = 139 mmol/L 135-145 4336761608) K (test code = 3.1 mmol/L 3.5-5 L 8161107405) CL (test code = 113 mmol/L 98-108 H 1526733215) CO2 TOTAL (test code = 23 mmol/L 23-31 1068030896) AGAP (test code = 2-16 1755505094) BUN (test code = 21 mg/dL 7-23 7977853627) GLUCOSE (test code = 107 mg/dL 70-110 7248717833) CREATININE (test code = 0.64 mg/dL 0.5-1.04 7237397615) CALCIUM (test code = 7.6 mg/dL 8.6-10.6 L 7062565887) eGFR Calculation mL/min/1.73m2 (Non-) (test code = 3374176038) eGFR Calculation mL/min/1.73m2 () (test code = 9929758642) TONE (test code = TONE) Association of Glomerular Filtration Rate (GFR) and Staging of Kidney Disease* + --+ --+ ------+| GFR (mL/min/1.73 m2) ?| With Kidney Damage ?| ?Without Kidney Damage+ --------+ --------+ +| ?>90 ?| ?Stage one ?| ? Normal ?+ ---+ ---+ -------+| ?60-89 ?| ?Stage two ?| ? Decreased GFR ? + --+ --+ ------+| ?30-59 ?| ?Stage three ?| ? Stage three ? + --+ --+ ------+| ?15-29 ?| ?Stage four ? | ? Stage four ?+ ---+ ---+ -------+| ?<15 (or dialysis) ? ?| ?Stage five ? | ? Stage five ?+ ---+ ---+ -------+ *Each stage assumes the associated GFR level has been in effect for at least three months. ?Stages 1 to 5, with or without kidney disease, indicate chronic kidney disease. Notes: Determination of stages one and two (with eGFR >59mL/min/1.73 m2) requires estimation of kidney damage for at least three months as defined by structural or functional abnormalities of the kidney, manifested by either:Pathological abnormalities or Markers of kidney damage (including abnormalities in the composition of the blood or urine or abnormalities in imaging tests). Lab Interpretation Abnormal (test code = 79004-3) [facility] Test Item Value Reference Range Interpretation Comments MAGNESIUM (test code = 1683400120) 1.9 mg/dL 1.7-2.4 Lab Interpretation (test code = Normal 64777-4) [facility] / [id number] 07:52:00 Test Item Value Reference Range Interpretation Comments PROTIME PATIENT (test See_Comment [Auto mated message] code = 5964-2) The system [employer] generated this result transmitted ref erence range: 10.1 - 1 2.6 Seconds. The re ference range was not u sed to interpret this result as normal/abnor mal. INR (test code = 6301-6) Nor mal INR <1.1; Warfarin Therap eutic range 2.0 to 3. 0 or 2.5 to 3.5, dep ending upon the indica tions. Lab Interpretation (test Normal code = 11002-8) [facility] [id number] 14:44:08FINDINGS/IMPRESSION: The weighted enteric tube tip lies within the stomach. Preliminary Report Dictat ed by Resident: Navi Collazo I reviewed this study and agree with minor modifications (no callneeded tothe referring physician). Nguyễn Alcocer MD., have reviewed this study and agree with theabove report.EXAM: XR KUB HISTORY: Dobbhoff placement COMPARISON: Abdomen radiograph 12/26/2019 [facility], Radiant Results Inft User - 12/27/2019 9:45 AM CDTEXAM: XR KUBHISTORY: Dobbhoff placement COMPARISON: Abdomen radiograph 12/26/2019IMPRESSIONFINDINGS/IMPRESSION:The weighted enteric tube tip lies within the stomach.Preliminary Report Dictated by Resident: Navi Corcoran reviewed this study and agree with minor modifications (no call needed tothe referring physician).Nguyễn Alcocer MD., have reviewed this study and agree with theabove report.[facility]2020-10-13 09:11:00 Test Item Value Reference Range Interpretation Comments MAGNESIUM (test code = 2898588991) 1.8 mg/dL 1.7-2.4 Lab Interpretation (test code = Normal 71735-4) [facility] (NA, K, CL, CO2, GLUCOSE, BUN, CREATININE, CA)2019-12-27 09:11:00 Test Item Value Reference Range Interpretation Comments NA (test code = 137 mmol/L 135-145 0586498439) K (test code = 3.8 mmol/L 3.5-5 Slight 9057785019) hemolysis CL (test code = 106 mmol/L 98-108 7076135611) CO2 TOTAL (test code 23 mmol/L 23-31 = 6121692660) AGAP (test code = 2-16 9504851626) BUN (test code = 18 mg/dL 7-23 Slight 2146979301) hemolysis GLUCOSE (test code = 113 mg/dL 70-110 H 1784663864) CREATININE (test code 0.69 mg/dL 0.5-1.04 = 9947439755) CALCIUM (test code = 9.2 mg/dL 8.6-10.6 9376637681) eGFR Calculation mL/min/1.73m2 (Non-) (test code = 5716485404) eGFR Calculation mL/min/1.73m2 () (test code = 3869714836) TONE (test code = TONE) Association of Glomerular Filtration Rate (GFR) and Staging of Kidney Disease* + -----+ --------+ +| GFR (mL/min/1.73 m2) ?| With Kidney Damage ?| ?Without Kidney Damage+ +------- +---- --+| ?>90 ?| ?Stage one ?| ? Normal ?+ ------+ ---------+--------- +| ?60-89 ?| ?Stage two ?| ? Decreased GFR ? + -----+ --------+ +| ?30-59 ?| ?Stage three ?| ? Stage three ? + -----+ --------+ +| ?15-29 ?| ?Stage four ? | ? Stage four ?+ ------+ ---------+--------- +| ?<15 (or dialysis) ? ?| ?Stage five ? | ? Stage five ?+ ------+ ---------+--------- + *Each stage assumes the associated GFR level has been in effect for at least three months. ?Stages 1 to 5, with or without kidney disease, indicate chronic kidney disease. Notes: Determination of stages one and two (with eGFR >59mL/min/1.73 m2) requires estimation of kidney damage for at least three months as defined by structural or functional abnormalities of the kidney, manifested by either:Pathological abnormalities or Markers of kidney damage (including abnormalities in the composition of the blood or urine or abnormalities in imaging tests). Lab Interpretation Abnormal (test code = 03314-5) [facility] WITH [id number] 08:46:00 Test Item Value Reference Range Interpretation Comments WBC (test code = See_Comment [Automated 6790-2) message] The sy stem which generated this result transmitted reference range : 4.30 - 11.10 10*3/?L. The reference range was not used to interpret this result as normal/abnormal . RBC (test code = See_Comment [Automated 789-8) message] The sy stem which generated this result transmitted reference range : 3.93 - 5.25 10*6/?L. The reference range was not used to interpret this result as normal/abnormal . HGB (test code = 15.8 g/dL 11.6-15 H 718-7) HCT (test code = 46.0 % 35.7-45.2 H 4544-3) MCV (test code = 92.4 fL 80.6-95.5 787-2) MCH (test code = 31.7 pg 25.9-32.8 785-6) MCHC (test code = 34.3 g/dL 31.6-35.1 786-4) RDW-SD (test code = 41.2 fL 39-49.9 34916-7) RDW-CV (test code = 12.0 % 12-15.5 788-0) PLT (test code = See_Comment [Automated 777-3) message] The sy stem which generated this result transmitted reference range : 166 - 358 10*3/ ?L. The reference r renzo was not used to interpret this result as normal/abnormal . MPV (test code = 10.9 fL 9.5-12.9 64684-4) NRBC/100 WBC (test See_Comment [Automat ed code = 8426709111) message] The system which generated this result transmitted reference range : 0.0 - 10.0 /100 WBCs. The refer ence range was not u sed to interpret th is result as normal/abnormal . NRBC x10^3 (test code <0.01 See_Comment [Auto mated = 8892263476) message] The s ystem which generated this result transmitted reference range : 10*3/?L. The reference range was not used to interpret this result as normal/abnormal . GRAN MAT (NEUT) % 81.1 % (test code = 770-8) IMM GRAN % (test code 0.20 % = 6056970856) LYMPH % (test code = 10.8 % 736-9) MONO % (test code = 7.5 % 5905-5) EOS % (test code = 0.2 % 713-8) BASO % (test code = 0.2 % 706-2) GRAN MAT x10^3(ANC) 7.27 10*3/uL 1.88-7.09 H (test code = 1146174695) IMM GRAN x10^3 (test <0.03 0-0.06 code = 0356290221) LYMPH x10^3 (test code 0.97 10*3/uL 1.32-3.29 L = 731-0) MONO x10^3 (test code 0.67 10*3/uL 0.33-0.92 = 742-7) EOS x10^3 (test code = <0.03 0.03-0.39 L 711-2) BASO x10^3 (test code <0.03 0.01-0.07 = 704-7) Lab Interpretation Abnormal (test code = 99659-4) [facility] Duration of test: Continuous EEG Monitoring (LTM)2019-12-27 00:00:00LONG TERM EEG MONITORING SEGMENT #1:Date and Time of Procedure: 12/27/2019, 9:14:58-11:03:06 REPORT TECHNICAL SUMMARY: The EEG was recorded digitally. Electrodes were applied using the Nxhoovzfhedvc18/20 System of electrode placement. Eye movements, respiratory excursions and rhythm strip ECG weremonitored on separate channels of the ongoing EEG recording. There is no occipital dominant rhythm.The background frequency spectrum is wide, consisting primarily of diffuse 1.5-4 Hz, 4-8 Hz, 8-13 Hz, and 13-22 Hz activities. There is an excessive amount of 13-22 Hz activity diffusely. There is a polymorphic focal slowing in the 1.5-7 Hz range in the left hemisphere, most prominent in the left anterior head region. There is no definitive electrographic evidence of drowsiness or sleep seen. Photic stimulation and hyperventilation are not employed as activation technique. No electrographic seizures or epileptiform abnormalities are seen. The ECG lead shows frequent abnormal-appearing waveforms which appear to possibly be PVCs. ?IMPRESSION: This study is abnormal due to:1) moderate diffuse slowing, suggestive of a moderate diffuse disturbance in cerebral function.2) excess fast activity, which is suggestive of medication effect. 3) focal slowing in the left hemisphere, suggestive of a focal disturbance in that region.4) frequent abnormal-appearing ECG waveforms which appear to possibly be PVCs, and would be better assessed by a more appropriate method of cardiac monitoring. No electrographicseizures or epileptiform abnormalities are seen. The fact that there is no definitive electrographic evidence of drowsiness or sleep seen may decrease the diagnostic sensitivity of the test, as some EEG abnormalities are more commonly seen in drowsiness and sleep. I discussed these findings with theneurology team following thepatient immediately after I read this segment. Interpreted by Gigi Colby MD on 12/27/19 SKILLED NURSING EEG MONITORING SEGMENT #2: Date and Time of Procedure: 12/27/2019, 11:03:06 to 16:14:06 Study was disconnected from 15:43:55 to 15:54:05 IMPRESSION:This study is abnormal due to:1) moderate diffuse slowing, suggestive of a moderate diffuse disturbance in cerebral function.2) excess fast activity, which is suggestive of medication effect. 3) focal slowing in the left hemisphere, suggestive of a focal disturbance in that region.4) frequent abnormal-appearing ECG waveforms which appear to possibly be PVCs, and would be better assessed by a more appropriate method of cardiac monitoring. No electrographic seizures or epileptiform abnormalities are seen. I discussed these findings with the neurology team following the patient immediately after I read this segment. Interpreted by Tena King MD on 12/27/19 SHOP CLERK EEG MONITORING SEGMENT #3: 12/27/19, 16:14:06-19:20:49 This segment is abnormal due to:1) moderate diffuse slowing, which can be suggestive of a moderate diffuse disturbance in cerebral function but can also be related to sedating medications.2) excess fast activity, which can be suggestive of medication effect but can also be seen in anxiety.3) focal slowing in the left hemisphere, suggestive of a focal disturbance in that region. 4) frequent PVCs. No electrographic seizures or epileptiform abnormalities are seen. I discussed these findings with the ne urology team following this patient immediately after I read this segment. Interpreted by Cesar Dixon MD on 12/27/19 SHOP CLERK EEG MONITORING SEGMENT #3: 12/27/19,19:20:49 -12/28/2019, 11:17:23 This segment is abnormal due to:1) moderate diffuseslowing, which can be suggestive of a moderate diffuse disturbance in cerebral function but can alsobe related to sedating medications.2) excess fast activity, which can be suggestive of medication effect but can also be seen in anxiety.3) focal slowing in the left hemisphere, suggestive of a focal disturbance in that region. 4) frequent PVCs. No electrographic seizures or epileptiform abnormalitiesare seen. Rosanna Pinon MD I personally interpreted the entire recording and agree with Dr. Pinon's note as written. Interpreted by Claudio King MD on 12/28/19 [facility] B[facility]IN WO [id number] 18:46:55 Motion degraded exam. Large subacute infarct in the left MCA territory withno gross evidence of hemorrhage transformation. Findings were communicated and acknowledged by GILA Prasad at 12:51 PM on12/26/2019. Preliminary Report Dictated by Resident: Henri De Paz MD., have reviewed this study and agree with theabove report.MRI OF THE BRAIN WITH AND WITHOUT CONTRAST. HISTORY: Neuro deficit(s), subacute COMPARISON: CT head dated 12/24/2019. TECHNIQUE: Routine MRI of the brain was performed at [address] withoutintravenous contrast administration. FINDINGS: Slight effacement of theleft lateral ventricle is noted, unchanged. Nomidline shift, hydrocephalus or pathological extra-axial fluid collectionis present. The basal cisterns are unremarkable. A broad area of restricted diffusion involving the left insular/subinsularcortex, left parietal lobe and left caudate nucleus with correspondingT2/FLAIR hyperintensity with sulcal effacement. Chronic right cerebellarlacunar infarcts. Scattered foci of T2/FLAIR hyperintensity seen in thebilateral cerebral white matter, nonspecific, likely reflects sequelae ofmild chronic small vessel ischemic changes. No abnormal gradient blooming. Loss of the left ICA flow void. Minimal mucoperiosteal thickening affecting ethmoid are cells. 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 No abnormal fluid signal is presentin the mastoid air cells or remaining paranasal air sinuses. [facility], Radiant Results Inft User - 12/26/2019 1:47 PM CDTMRI OF THE BRAIN WITH AND WITHOUT CONTRAST.HISTORY: Neuro deficit(s), subacute COMPARISON: CT head dated .TECHNIQUE: Routine MRI of the brain was performed at [address] [place] withoutintravenous contrast administration.FINDINGS:Slight effacement of the left lateral ventricle is noted, unchanged. Nomidline shift, hydrocephalus or pathological extra-axial fluid collectionis present. The basal cisterns are un remarkable.A broad area of restricted diffusion involving the left insular/subinsularcortex, left parietal lobe and left caudate nucleus with correspondingT2/FLAIR hyperintensity with sulcal effacement. Chronic right cerebellarlacunar infarcts. Scattered foci of T2/FLAIR hyperintensity seen in thebilateral cerebral white matter, nonspecific, likely reflects sequelae ofmild chronic small vessel ischemic changes. No abnormal gradient blooming.Loss of the left ICA flow void. Minimal mucoperiosteal thickening affecting ethmoid are cells. 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 No abnormal fluid signal is presentin the mastoid air cells or remaining paranasal air sinuses.IMPRESSIONMotion degraded exam. Large subacute infarct in the left MCA territory withno gross evidence of hemorrhage transformation.Findings were communicated and acknowledged by GILA Prasad at 12:51 PM on12/26/2019.Preliminary Report Dictated by Resident: Henri Lama MD., have reviewed this study and agree with theabove report.[facility] - To confirm nasogastric tube placement.2019-12-26 15:20:07 Nonobstructive bowel gas pattern. Preliminary Report Dictated by Resident: Navi Collazo I reviewed this study and agree. Nguyễn Alcocer MD., have reviewed this study and agree with theabove report.EXAM: XR ABDOMEN 1 VW HISTORY: aphasia, and dysphagia COMPARISON: None. FINDINGS: The tip of the Dobbhoff tube lies within the stomach. The bowel gas patternis unremarkable. No pathologically dilated bowel loops. Contrast is seen within the pelvicalyceal system of both kidneys, likelyfrom recent study. Vascular calcifications are noted. No acute bony abnormality is present. [facility], Radiant R esults Inft User - 12/26/2019 10:21 AM CDTEXAM: XR ABDOMEN 1 VWHISTORY: aphasia, and dysphagia COMPARISON: None.FINDINGS:The tip of the Dobbhoff tube lies within the stomach. The bowel gas patternis unremarkable. No pathologically dilated bowel loops.Contrast is seen within the pelvicalyceal system ofboth kidneys, likelyfrom recent study.Vascular calcifications are noted.No acute bony abnormality ispresent.IMPRESSIONNonobstructive bowel gas pattern.Preliminary Report Dictated by Resident: Navi Corcoran reviewed this study and agree.Nguyễn Alcocer MD., have reviewed this study and agree with theabove report.[facility] [id number] 15:04:26 FINDINGS/IMPRESSION: The tip of the Dobbhoff tube lies within the stomach. Preliminary Report Dictated by Resident: Navi Collazo I reviewed this study and agree. Nguyễn Alcocer MD., havereviewed this study and agree with theabove report.EXAM: XR KUB HISTORY: DHT replaced, need to give meds and feeds COMPARISON: Abdomen radiograph 12/24/2019. [facility], Radiant Results Inft User - 12/26/2019 10:05 AM CDTEXAM: XR KUBHISTORY: DHT replaced, need to give meds and feeds COMPARISON: Abdomen radiograph 12/24/2019.IMPRESSIONFINDINGS/IMPRESSION:The tip of the Dobbhoff tube lies within the stomach.Preliminary Report Dictated by Resident: Navi Corcoran reviewed this study and agree.I, Nguyễn Coon MD., have reviewed this study and agree with theabove report.[facility]TROP[facility] [id number] 13:02:00 Test Item Value Reference Range Interpretation Comments TROPONIN I (test 0.013 ng/mL See_Comment [Automated code = 5294397008) message] The system which generated this result transmitted reference range : <=0.034. The reference range was not used to interpret this result as normal/abnormal . TONE (test code = Equal or Less than TONE) 0.034 ng/ml---Normal ?Note: Cardiac troponin begins to rise 3-4 hours after the onset of ischemia. Repeat in 4-6 hours if the sample was drawn within 3-4 hours of the onset of the symptom and found normal. Between 0.035 and 0.120 ng/mL--- Borderline. Questionable myocardial injury or necrosis ? ?Note: Serial measurement may be necessary to confirm or exclude the diagnosis of myocardial injury or necrosis; Clinical correlation (symptoms, EKGs, imaging studies, and others) required; Repeat in 4-6 hours if clinically indicated. ? Equal or Higher than 0.121 ng/mL---Abnormal. Myocardial Injury or Necrosis Likely ? Biotin has been reported to cause a negative bias, interpret results relative to patient's use of biotin. ? Lab Interpretation Normal (test code = 16015-8) [facility] (NA, K, CL, CO2, GLUCOSE, BUN, CREATININE, CA)2019-12-26 09:46:00 Test Item Value Reference Range Interpretation Comments NA (test code = 137 mmol/L 135-145 1655344934) K (test code = 3.7 mmol/L 3.5-5 6547992361) CL (test code = 108 mmol/L 98-108 6988039149) CO2 TOTAL (test code = 21 mmol/L 23-31 L 8033409874) AGAP (test code = 2-16 6433621510) BUN (test code = 10 mg/dL 7-23 9548560289) GLUCOSE (test code = 107 mg/dL 70-110 5115507892) CREATININE (test code = 0.57 mg/dL 0.5-1.04 3136536532) CALCIUM (test code = 8.4 mg/dL 8.6-10.6 L 1770004749) eGFR Calculation mL/min/1.73m2 (Non-) (test code = 9002289529) eGFR Calculation mL/min/1.73m2 () (test code = 4223370860) TONE (test code = TONE) Association of Glomerular Filtration Rate (GFR) and Staging of Kidney Disease* + --+ --+ ------+| GFR (mL/min/1.73 m2) ?| With Kidney Damage ?| ?Without Kidney Damage+ --------+ --------+ +| ?>90 ?| ?Stage one ?| ? Normal ?+ ---+ ---+ -------+| ?60-89 ?| ?Stage two ?| ? Decreased GFR ? + --+ --+ ------+| ?30-59 ?| ?Stage three ?| ? Stage three ? + --+ --+ ------+| ?15-29 ?| ?Stage four ? | ? Stage four ?+ ---+ ---+ -------+| ?<15 (or dialysis) ? ?| ?Stage five ? | ? Stage five ?+ ---+ ---+ -------+ *Each stage assumes the associated GFR level has been in effect for at least three months. ?Stages 1 to 5, with or without kidney disease, indicate chronic kidney disease. Notes: Determination of stages one and two (with eGFR >59mL/min/1.73 m2) requires estimation of kidney damage for at least three months as defined by structural or functional abnormalities of the kidney, manifested by either:Pathological abnormalities or Markers of kidney damage (including abnormalities in the composition of the blood or urine or abnormalities in imaging tests). Lab Interpretation Abnormal (test code = 60865-5) [facility] WITH [id number] 09:20:00 Test Item Value Reference Range Interpretation Comments WBC (test code = See_Comment H [Automated 6690-2) message] The sy stem which generated this result transmitted reference range : 4.30 - 11.10 10*3/?L. The reference range was not used to interpret this result as normal/abnormal . RBC (test code = See_Comment [Automated 789-8) message] The sy stem which generated this result transmitted reference range : 3.93 - 5.25 10*6/?L. The reference range was not used to interpret this result as normal/abnormal . HGB (test code = 15.4 g/dL 11.6-15 H 718-7) HCT (test code = 45.2 % 35.7-45.2 4544-3) MCV (test code = 94.2 fL 80.6-95.5 787-2) MCH (test code = 32.1 pg 25.9-32.8 785-6) MCHC (test code = 34.1 g/dL 31.6-35.1 786-4) RDW-SD (test code = 42.5 fL 39-49.9 03531-6) RDW-CV (test code = 12.2 % 12-15.5 788-0) PLT (test code = See_Comment [Automated 777-3) message] The sy stem which generated this result transmitted reference range : 166 - 358 10*3/ ?L. The reference r renzo was not used to interpret this result as normal/abnormal . MPV (test code = 10.5 fL 9.5-12.9 53983-7) NRBC/100 WBC (test See_Comment [Automat ed code = 0625197865) message] The system which generated this result transmitted reference range : 0.0 - 10.0 /100 WBCs. The refer ence range was not u sed to interpret th is result as normal/abnormal . NRBC x10^3 (test code <0.01 See_Comment [Auto mated = 5998097706) message] The s ystem which generated this result transmitted reference range : 10*3/?L. The reference range was not used to interpret this result as normal/abnormal . GRAN MAT (NEUT) % 82.9 % (test code = 770-8) IMM GRAN % (test code 0.40 % = 3045890046) LYMPH % (test code = 10.4 % 736-9) MONO % (test code = 5.9 % 5905-5) EOS % (test code = 0.1 % 713-8) BASO % (test code = 0.3 % 706-2) GRAN MAT x10^3(ANC) 9.76 10*3/uL 1.88-7.09 H (test code = 3625048199) IMM GRAN x10^3 (test 0.05 10*3/uL 0-0.06 code = 7814788823) LYMPH x10^3 (test code 1.23 10*3/uL 1.32-3.29 L = 731-0) MONO x10^3 (test code 0.70 10*3/uL 0.33-0.92 = 742-7) EOS x10^3 (test code = <0.03 0.03-0.39 L 711-2) BASO x10^3 (test code 0.04 10*3/uL 0.01-0.07 = 704-7) Lab Interpretation Abnormal (test code = 06268-9) [facility] / MSSA Screen by PCR, [id number] 16:13:00 Test Item Value Reference Range Interpretation Comments MSSA Screen by PCR, Positive Negative A Nares (test code = 77140-4) MRSA/MSSA Positive? Yes No A (test code = 3936652430) TONE (test code = TONE) A positive test result does not necessarily indicate the presence of viable organism. Lab Interpretation (test Abnormal code = 87989-7) [facility] (NA, K, CL, CO2, GLUCOSE, BUN, CREATININE, CA)2019-12-25 09:09:00 Test Item Value Reference Range Interpretation Comments NA (test code = 141 mmol/L 135-145 5200381868) K (test code = 4.6 mmol/L 3.5-5 Slight 5557422932) hemolysis CL (test code = 109 mmol/L 98-108 H 3444396154) CO2 TOTAL (test code 23 mmol/L 23-31 = 9767806821) AGAP (test code = 2-16 4982604475) BUN (test code = 16 mg/dL 7-23 Slight 4610693147) hemolysis GLUCOSE (test code = 96 mg/dL 70-110 3290515972) CREATININE (test code 0.76 mg/dL 0.5-1.04 = 5816970092) CALCIUM (test code = 8.8 mg/dL 8.6-10.6 2376022807) eGFR Calculation mL/min/1.73m2 (Non-) (test code = 3512901440) eGFR Calculation mL/min/1.73m2 () (test code = 6610757024) TONE (test code = TONE) Association of Glomerular Filtration Rate (GFR) and Staging of Kidney Disease* + -----+ --------+ +| GFR (mL/min/1.73 m2) ?| With Kidney Damage ?| ?Without Kidney Damage+ +------- +---- --+| ?>90 ?| ?Stage one ?| ? Normal ?+ ------+ ---------+--------- +| ?60-89 ?| ?Stage two ?| ? Decreased GFR ? + -----+ --------+ +| ?30-59 ?| ?Stage three ?| ? Stage three ? + -----+ --------+ +| ?15-29 ?| ?Stage four ? | ? Stage four ?+ ------+ ---------+--------- +| ?<15 (or dialysis) ? ?| ?Stage five ? | ? Stage five ?+ ------+ ---------+--------- + *Each stage assumes the associated GFR level has been in effect for at least three months. ?Stages 1 to 5, with or without kidney disease, indicate chronic kidney disease. Notes: Determination of stages one and two (with eGFR >59mL/min/1.73 m2) requires estimation of kidney damage for at least three months as defined by structural or functional abnormalities of the kidney, manifested by either:Pathological abnormalities or Markers of kidney damage (including abnormalities in the composition of the blood or urine or abnormalities in imaging tests). Lab Interpretation Abnormal (test code = 57519-3) [facility] WITHOUT [id number] 08:20:00 Test Item Value Reference Range Interpretation Comments WBC (test code = 6690-2) See_Comment [A utomated message] The system [employer] generated this result transmit breanna reference range : 4.30 - 11.10 10*3/?L. The reference range was not used to interpret this result as normal/abnormal . RBC (test code = 789-8) See_Comment [Au tomated message] The system [employer] generated this result transmit breanna reference range : 3.93 - 5.25 10* 6/?L. The reference r renzo was not used to interpret this result as normal/abnormal . HGB (test code = 718-7) 15.6 g/dL 11.6-15 H HCT (test code = 4544-3) 47.5 % 35.7-45.2 H MCH (test code = 785-6) 31.0 pg 25.9-32.8 MCV (test code = 787-2) 94.4 fL 80.6-95.5 MCHC (test code = 786-4) 32.8 g/dL 31.6-35.1 PLT (test code = 777-3) See_Comment [Au tomated message] The system [facility] generated this result transmit breanna reference range : 166 - 358 10*3/?L. The reference range was not used to interpret this result as normal/abnormal . MPV (test code = 10.4 fL 9.5-12.9 44743-3) RDW-CV (test code = 12.8 % 12-15.5 788-0) RDW-SD (test code = 44.0 fL 39-49.9 78957-1) NRBC x10^3 (test code = <0.01 See_Comment [Au tomated message] 8220523629) The system [employer] generated this result transmit breanna reference range : 10*3/?L. The reference range was not used to interpret this result as normal/abnormal . NRBC/100 WBC (test code See_Comment [Au tomated message] = 7382455832) The system [facility] generated this result transmit breanna reference range : 0.0 - 10.0 /100 WBC s. The reference r renzo was not used to interpret this result as normal/abnormal . IPF % (test code = 9711802923) Lab Interpretation (test Abnormal code = 90639-9) [facility] [id number] 23:15:09 Complete occlusion of the left cervical ICA from just distal to the bulbthrough the supraclinoid segment at the level of the ophthalmic artery.Short segment opacification of the left M1 segment is noted before anabrupt cut off within the mid M1 segment. There is some vascularity notedwithin the distal MCA candelabra likely related to collateral flow over theconvexity. Short segment moderate narrowing of the right proximal cervical ICA (up to50%) Mild to moderate focal narrowing of the mid basilar arteryCT ANGIOGRAM NECK, CT ANGIOGRAM HEAD HISTORY: Female 59 years Stroke, follow up COMPARISON: CT head dated 12/24/2019 TECHNIQUE: Routine CTA head and neck were performed followingadministration of 1 00 mL IV Omnipaque FINDINGS: CTA head: The PICA origin is visualized bilaterally. Short segment moderate narrowingis seen within the mid basilar artery. The superior cerebellar arteries arepatent. The posterior cerebral arteries are patent. No sizable posteriorcommunicating arteries are identified. The distal cervical, petrous, cavernous and supraclinoid portions of theright internal carotid artery are patent. The left internal carotid arteryis completely occluded with reconstitution of a segment ofthe supraclinoidportion at the level of the ophthalmic artery. A short segment of the M1 segment is o pacified before there is an abruptcut off. Attenuated flow is noted within distal M3 and M4 branches. Theanterior cerebral arteries and the right middle cerebral artery are patent. CTA NECK: The aorticarch demonstrates a classic 3 vessel branching pattern. The archvessel origins are widely patent. Innominate and subclavian arteriesdemonstrate scattered mild atherosclerotic calcification but remain widelypatent. The common carotid arteries are widely patent. There is an abrupt cut offof the left cervical internal carotid artery just distal to the bulb.Atherosclerotic calcification in the right carotid and proximal cervicalinternal carotid artery resulting in short segment moderate (up to 50%)narrowing. The right cervical internal carotid artery is otherwise patent. The vertebral arteries are patent from their subclavian origins through thevertebrobasilar junction. [facility], Radiant Results Inft User- 12/24/2019 6:16 PM CDTCT ANGIOGRAM NECK, CT ANGIOGRAM HEADHISTORY: Female 59 years Stroke, followup COMPARISON: CT head dated 12/24/2019TECHNIQUE: Routine CTA head and neck were performed followingadministration of 100 mL IV OmnipaqueFINDINGS:CTA head:The PICA origin is visualized bilaterally. Short segment moderate narrowingis seen within the mid basilar artery. The superior cerebellar arteries arepatent. The posterior cerebral arteries are patent. No sizable posteriorcommunicating arteries areidentified.The distal cervical, petrous, cavernous and supraclinoid portions of theright internal carotid artery are patent. The left internal carotid arteryis completely occluded with reconstitution of a segment of the supraclinoidportion at the level of the ophthalmic artery.A short segment of the M1 segment is opacified before there is an abruptcut off. Attenuated flow is noted within distal M3 and M4 branches. Theanterior cerebral arteries and the right middle cerebral artery are patent.CTA NECK:The aortic arch demonstrates a classic 3 vessel branching pattern. The archvessel origins are widelypatent. Innominate and subclavian arteriesdemonstrate scattered mild atherosclerotic calcification but remain widelypatent.The common carotid arteries are widely patent. There is an abrupt cut offof the left cervical internal carotid artery just distal to the bulb.Atherosclerotic calcification in the right carotid and proximal cervicalinternal carotid artery resulting in short segment moderate (up to 50%)narrowing. The right cervical internal carotid artery is otherwise patent.The vertebral arteriesare patent from their subclavian origins through thevertebrobasilar junction.IMPRESSIONComplete occlusion of the left cervical ICA from just distal to the bulbthrough the supraclinoid segment at the level of the ophthalmic artery.Short segment opacification of the left M1 segment is noted before anabrupt cut off within the mid M1 segment. There is some vascularity notedwithin the distal MCA candelabra likely related to collateral flow over theconvexity.Short segment moderate narrowing of the right proximal cervical ICA (up to50%)Mild to moderate focal narrowing of the mid basilar arteryUnPalestine Regional Medical CenterCT ANGIOGRAM [id number] 23:15:09 Complete occlusion of the left cervical ICA from just distal to the bulbthrough the supraclinoid segment at the level of the ophthalmic artery.Short segment opacification of the left M1 segment is noted before anabrupt cut off within the mid M1 segment. There is some vascularity notedwithin the distal MCA candelabra likely related to collateral flow over theconvexity. Short segment moderate narrowing of the right proximal cervical ICA (up to50%) Mild to moderate focal narrowing of the mid basilar arteryCT ANGIOGRAM NECK, CT ANGIOGRAM HEAD HISTORY: Female 59 years Stroke, follow up COMPARISON: CT head dated 12/24/2019 TECHNIQUE: Routine CTA head and neck were performed followingadministration of 1 00 mL IV Omnipaque FINDINGS: CTA head: The PICA origin is visualized bilaterally. Short segment moderate narrowingis seen within the mid basilar artery. The superior cerebellar arteries arepatent. The posterior cerebral arteries are patent. No sizable posteriorcommunicating arteries are identified. The distal cervical, petrous, cavernous and supraclinoid portions of theright internal carotid artery are patent. The left internal carotid arteryis completely occluded with reconstitution of a segment ofthe supraclinoidportion at the level of the ophthalmic artery. A short segment of the M1 segment is o pacified before there is an abruptcut off. Attenuated flow is noted within distal M3 and M4 branches. Theanterior cerebral arteries and the right middle cerebral artery are patent. CTA NECK: The aorticarch demonstrates a classic 3 vessel branching pattern. The archvessel origins are widely patent. Innominate and subclavian arteriesdemonstrate scattered mild atherosclerotic calcification but remain widelypatent. The common carotid arteries are widely patent. There is an abrupt cut offof the left cervical internal carotid artery just distal to the bulb.Atherosclerotic calcification in the right carotid and proximal cervicalinternal carotid artery resulting in short segment moderate (up to 50%)narrowing. The right cervical internal carotid artery is otherwise patent. The vertebral arteries are patent from their subclavian origins through thevertebrobasilar junction. [facility], Radiant Results Inft User- 12/24/2019 6:16 PM CDTCT ANGIOGRAM NECK, CT ANGIOGRAM HEADHISTORY: Female 59 years Stroke, followup COMPARISON: CT head dated 12/24/2019TECHNIQUE: Routine CTA head and neck were performed followingadministration of 100 mL IV OmnipaqueFINDINGS:CTA head:The PICA origin is visualized bilaterally. Short segment moderate narrowingis seen within the mid basilar artery. The superior cerebellar arteries arepatent. The posterior cerebral arteries are patent. No sizable posteriorcommunicating arteries areidentified.The distal cervical, petrous, cavernous and supraclinoid portions of theright internal carotid artery are patent. The left internal carotid arteryis completely occluded with reconstitution of a segment of the supraclinoidportion at the level of the ophthalmic artery.A short segment of the M1 segment is opacified before there is an abruptcut off. Attenuated flow is noted within distal M3 and M4 branches. Theanterior cerebral arteries and the right middle cerebral artery are patent.CTA NECK:The aortic arch demonstrates a classic 3 vessel branching pattern. The archvessel origins are widelypatent. Innominate and subclavian arteriesdemonstrate scattered mild atherosclerotic calcification but remain widelypatent.The common carotid arteries are widely patent. There is an abrupt cut offof the left cervical internal carotid artery just distal to the bulb.Atherosclerotic calcification in the right carotid and proximal cervicalinternal carotid artery resulting in short segment moderate (up to 50%)narrowing. The right cervical internal carotid artery is otherwise patent.The vertebral arteriesare patent from their subclavian origins through thevertebrobasilar junction.IMPRESSIONComplete occlusion of the left cervical ICA from just distal to the bulbthrough the supraclinoid segment at the level of the ophthalmic artery.Short segment opacification of the left M1 segment is noted before anabrupt cut off within the mid M1 segment. There is some vascularity notedwithin the distal MCA candelabra likely related to collateral flow over theconvexity.Short segment moderate narrowing of the right proximal cervical ICA (up to50%)Mild to moderate focal narrowing of the mid basilar arteryUnPalestine Regional Medical CenterGLYCOSYLATED HEMOGLOBIN (A1C)2019-12-24 22:32:00 Test Item Value Reference Range Interpretation Comments HGB A1C (test code = 5.2 % 4-6 4548-4) TONE (test code = TONE) %A1C (NGSP) Interpretation (ADA)4.8-5.6 ? ? Normal or (Non-Diabetic Range)5.7-6.4 ? ? Increased Risk (Pre-Diabetic)>6.5 ?Diabetes Indicated Lab Interpretation Normal (test code = 64693-9) [facility] (17659)(TOTAL CHOLESTEROL, TRIGLYCERIDES, HDL)2019-12-24 21:44:00 Test Item Value Reference Range Interpretation Comments CHOL (test code = 211 mg/dL 120-200 H 6630343919) HDL (test code = 80 mg/dL >50 5049581450) HDLC RATIO (test code = See_Comment [Au tomated message] 8747475958) The system [employer] generated this result transmit breanna reference range : <=4.5. The refe rence range was not u sed to interpret th is result as normal/abnormal . TRIG (test code = 109 mg/dL 30-170 4468302521) LDL CHOL (test code = 109 mg/dL See_Comment [Auto mated message] 31885-9) The system [employer] generated this result transmit breanna reference range : <=160. The refe rence range was not u sed to interpret th is result as normal/abnormal . VLDL (test code = 22 mg/dL 5-60 4327595291) Lab Interpretation (test Abnormal code = 68208-7) [facility]OVID[facility] (ID NOW RAPID TESTING)2019-12-24 19:46:00 Test Item Value Reference Range Interpretation Comments SARS-CoV-2 Rapid ID NOW Not Detected Not Detected (test code = 34920-4) TONE (test code = TONE) ID NOW COVID-19 Assay is an isothermal nucleic acid amplification test intended for the qualitative detection of nucleic acid from SARS-CoV-2 viral RNA in nasopharyngeal (LOCOMOTIVE ENGINEER) specimens. It is used under Emergency Use Authorization (EUA) by FDA. The limit of detection (LOD) of the assay is 125 Genome Equivalents/mL. A positive result is indicative of the presence of SARS-CoV-2 RNA. ?Clinical correlation with patient history and other diagnostic [...] for repeat patient testing if clinically indicated. Lab Interpretation Normal (test code = 89237-3) [facility] CampusTHYROID STIMULATING [id number] 19:15:00 Test Item Value Reference Range Interpretation Comments TSH (test code = See_Comment [Automated message] 3809008624) The system [employer] generated this result transmitted ref erence range: 0.45 - 4 .70 mIU/L. The refe rence range was not u sed to interpret this result as normal/abnor mal. Lab Interpretation (test Normal code = 92479-1) [facility] [id number] 19:13:00 Test Item Value Reference Range Interpretation Comments FREE T3 (test code = 5620353144) 3.15 pg/mL 2.77-5.27 Lab Interpretation (test code = Normal 86269-0) [facility] [id number] 19:11:00 Test Item Value Reference Range Interpretation Comments FREE T4 (test code = See_Comment [Autom ated message] 3358913851) The system [employer] generated this result transmitted ref erence range: 0.78 - 2 .20 ng/dL:. The ref erence range was not u sed to interpret this result as normal/abnor mal. Lab Interpretation (test Normal code = 10764-7) [facility]XR CHEST 1 [id number] 19:00:19 Chronic emphysematous changes. No pleural effusion, pneumothorax or consolidative process. Preliminary Report Dictated by Resident: Isaiah Elliott MD., have reviewed this study and agree with the abovereport.XR CHEST 1 VW Comparison: 11/14/2018 History: pneumonia Technique: Frontal radiograph Findings: Suboptimal evaluation due to positioning. A nodular opacity in the left lung base likely represent a nipple shadow.The lungs are hyperinflated without focal consolidation. Nopleuraleffusion or pneumothorax is identified. The cardiomediastinal silhouette is normal in size.No acute osseous abnormality is present. [facility], Radiant Results Inft User - 12/24/2019 2:01 PM CDTXRCHEST 1 VWComparison: 11/14/2018History: pneumonia Technique: Frontal radiographFindings:Suboptimal evaluation due to positioning.A nodular opacity in the left lung base likely represent a nipple shadow.The lungs are hyperinflated without focal consolidation. No pleuraleffusion or pneumothorax is identified. The cardiomediastinal silhouette is normal in size. No acute osseous abnormality is present.IMPRESSIONChronic emphysematous changes.No pleural effusion, pneumothorax or consolidative process.Preliminary Report Dictated by Resident: Isaiah Song MD., have reviewed this study and agree with the abovereport.[facility] CampusTroponin [id number] 18:56:00 Test Item Value Reference Range Interpretation Comments TROPONIN I (test 0.017 ng/mL See_Comment [Automated code = 3792015931) message] The system which generated this result transmitted reference range : <=0.034. The reference range was not used to interpret this result as normal/abnormal . TONE (test code = Equal or Less than TONE) 0.034 ng/ml---Normal ?Note: Cardiac troponin begins to rise 3-4 hours after the onset of ischemia. Repeat in 4-6 hours if the sample was drawn within 3-4 hours of the onset of the symptom and found normal. Between 0.035 and 0.120 ng/mL--- Borderline. Questionable myocardial injury or necrosis ? ?Note: Serial measurement may be necessary to confirm or exclude the diagnosis of myocardial injury or necrosis; Clinical correlation (symptoms, EKGs, imaging studies, and others) required; Repeat in 4-6 hours if clinically indicated. ? Equal or Higher than 0.121 ng/mL---Abnormal. Myocardial Injury or Necrosis Likely ? Biotin has been reported to cause a negative bias, interpret results relative to patient's use of biotin. ? Lab Interpretation Normal (test code = 73209-9) [facility] CampusSALICYLATE2020-10-10 18:56:00 Test Item Value Reference Range Interpretation Comments SALICYLATE (test code <10 mg/L = 8647630293) TONE (test code = TONE) Therapeutic Range: ? Analgesic and Antipyretic Use ? 20-100 mg/L ? ? Anti-Inflammatory Use ? 100-250 mg/L Toxic Range: ? Greater than 300 mg/L [facility] CampusCT HEAD WO [id number] 18:50:08 Acute- subacute infarct in the left MCA territory with an ASPECTS score ofaround 3. No evidence of hemorrhagic transformation These findings were discussed with Dr. Mclean at the time of reportdictationCT HEAD WO CONTRAST HISTORY: Female 59 years Altered mental status (AMS), unclear cause COMPARISON:CT head dated 11/14/2018 TECHNIQUE: Routine CT head without contrast FINDINGS: There is slight effacement of the left lateral ventricle. The ventriclesand cerebral sulci are otherwise normal in caliber and configuration. Nohydrocephalus, midline shift or pathological extra axial fluid collectionis present. The basal cisterns are unremarkable. No acute intracranial hemorrhage or mass effect is present. A nacute-subacute infarct involving the left MCA territory is noted withoutevidence of hemorrhagic transformation. The ASPECTS score is estimated otbe 3. ?The salas-white matter differentiation is otherwise preserved. Noadditional parenchymal attenuation abnormality is present. The calvarium and skull base are unremarkable. The mastoid air cells andvisualized paranasal air sinuses are clear. [facility], Radiant Results Inft User - 12/24/2019 1:51 PM CDTCT HEAD WO CONTRASTHISTORY: Female 59 years Altered mental status (AMS), unclear cause COMPARISON: CT head dated 11/14/2018TECHNIQUE: Routine CT head without c ontrastFINDINGS:There is slight effacement of the left lateral ventricle. The ventriclesand cerebralsulci are otherwise normal in caliber and configuration. Nohydrocephalus, midline shift or pathological extra axial fluid collectionis present. The basal cisterns are unremarkable.No acute intracranialhemorrhage or mass effect is present. Anacute-subacute infarct involving the left MCA territory is noted withoutevidence of hemorrhagic transformation. The ASPECTS score is estimated otbe 3. The salas-white matter differentiation is otherwise preserved. Noadditional parenchymal attenuation abnormalityis present.The calvarium and skull base are unremarkable. The mastoid air cells andvisualized paranasal air sinuses are clear.IMPRESSIONAcute-subacute infarct in the left MCA territory with an ASPECTS score ofaround 3. No evidence of hemorrhagic transformationThese findings were discussed with Dr. Mclean at the time of reportdictationThe [facility]als of [facility] CampusETHANOL2020-10-10 18:50:00 Test Item Value Reference Range Interpretation Comments ALCOHOL (test code = <10 mg/dL 1201432341) TONE (test code = TONE) <10 [id number] Toxic>100 Depression of AGILE TEST LEAD>400 Fatalities Reported [facility] (NA, K, CL, CO2, GLUCOSE, BUN, CREATININE, CA)2019-12-24 18:45:00 Test Item Value Reference Range Interpretation Comments NA (test code = 139 mmol/L 135-145 7113462059) K (test code = 3.5 mmol/L 3.5-5 5337757604) CL (test code = 103 mmol/L 98-108 5591101872) CO2 TOTAL (test code = 27 mmol/L 23-31 3432679123) AGAP (test code = 2-16 6520686922) BUN (test code = 16 mg/dL 7-23 0944718511) GLUCOSE (test code = 127 mg/dL 70-110 H 8943869442) CREATININE (test code = 0.81 mg/dL 0.5-1.04 2343421887) CALCIUM (test code = 9.9 mg/dL 8.6-10.6 3732187710) eGFR Calculation mL/min/1.73m2 (Non-) (test code = 3178893177) eGFR Calculation mL/min/1.73m2 () (test code = 4401571021) TONE (test code = TONE) Association of Glomerular Filtration Rate (GFR) and Staging of Kidney Disease* + --+ --+ ------+| GFR (mL/min/1.73 m2) ?| With Kidney Damage ?| ?Without Kidney Damage+ --------+ --------+ +| ?>90 ?| ?Stage one ?| ? Normal ?+ ---+ ---+ -------+| ?60-89 ?| ?Stage two ?| ? Decreased GFR ? + --+ --+ ------+| ?30-59 ?| ?Stage three ?| ? Stage three ? + --+ --+ ------+| ?15-29 ?| ?Stage four ? | ? Stage four ?+ ---+ ---+ -------+| ?<15 (or dialysis) ? ?| ?Stage five ? | ? Stage five ?+ ---+ ---+ -------+ *Each stage assumes the associated GFR level has been in effect for at least three months. ?Stages 1 to 5, with or without kidney disease, indicate chronic kidney disease. Notes: Determination of stages one and two (with eGFR >59mL/min/1.73 m2) requires estimation of kidney damage for at least three months as defined by structural or functional abnormalities of the kidney, manifested by either:Pathological abnormalities or Markers of kidney damage (including abnormalities in the composition of the blood or urine or abnormalities in imaging tests). Lab Interpretation Abnormal (test code = 30192-0) [facility] Panel (ALB, T.PRO, BILI T, BU/BC, ALT, AST, ALK PHOS)2019-12-24 18:45:00 Test Item Value Reference Range Interpretation Comments TOTAL BILI (test code = 8476452472) 0.7 mg/dL 0.1-1.1 BILI UNCON (test code = 5711046822) 0.8 mg/dL 0.1-1.1 BILI CONJ (test code = 6281886543) 0.0 mg/dL 0-0.3 T PROTEIN (test code = 0644487734) 7.8 g/dL 6.3-8.2 ALBUMIN (test code = 1462587817) 4.2 g/dL 3.5-5 ALK PHOS (test code = [id number]) 66 U/L 34-122 ALTv (test code = 1742-6) 20 U/L 5-35 AST(SGOT) (test code = 9563528148) 32 U/L 13-40 Lab Interpretation (test code = Normal 01239-1) [facility] 18[facility]45:00 Test Item Value Reference Range Interpretation Comments MAGNESIUM (test code = 9247080464) 1.9 mg/dL 1.7-2.4 Lab Interpretation (test code = Normal 68401-6) [facility]PTT2020-10-10 18:43:00 Test Item Value Reference Range Interpretation Comments APTT Patient (test See_Comment [Automat ed code = 3173-2) message] The system which generated this result transmitted reference range : 23 - 38 Seconds . The reference range was not used to interpr et this result as normal/abnormal . TONE (test code = TONE) The [facility] patient population mean normal value for aPTT is 30 seconds. Lab Interpretation Normal (test code = 94569-2) [facility] / [place] - DRUG SCREEN [id number] 18:43:00 Test Item Value Reference Range Interpretation Comments BENZO U (test code = Negative Negative 1567302651) NAOMI U (test code = Negative Negative 0987062652) AMPHET (test code = Negative Negative 7124166866) THC (test code = Presumptive Negative A Confirmatio n of 3566449225) Positive Presumptive Positive THC result requires physician order . METHADONE (test code Negative Negative = 5880904650) Meth U (test code = Negative Negative 5881762075) OPIATES (test code = Negative Negative 2470570067) Cocaine Metabolite Presumptive Negative A (test code = Positive 6943886167) PROPOXY (test code = Negative Negative 2417026748) Tric U (test code = Negative Negative 4675004479) PCP (test code = Negative Negative 8732676580) OXYCOD (test code = Negative Negative 6598416800) TONE (test code = Urine Drug Cutoff TONE) Ranges Benzodiazepines: ? ? 150 ng/mLBarbiturates : ?200 ng/mLAmphetamine: ? 500 ng/mLCannabinoids : ?50 ?ng/mLMethadone: ? 200 ng/mLMethamphetam ine: ? ? 500 ng/mL Opiates: ? 100 ng/mL or 2000 ng/mLCocaine: ? 150 ng/mLPropoxyphene : ?300 ng/mLTricyclics: ?300 ng/mLOxycodone: ? 100 ng/mLPCP: ? 25 ?ng/mL The results are to be used only for medical (i.e., treatment) purposes. Unconfirmed screening results must not be used for non-medical purposes (e.g., employment testing, legal testing). Lab Interpretation Abnormal (test code = 34492-0) [facility] CampusProthrombin Time (PT) / [id number] 18:41:00 Test Item Value Reference Range Interpretation Comments PROTIME PATIENT (test See_Comment [Auto mated message] code = 5964-2) The system [employer] generated this result transmitted ref erence range: 12.0 - 1 4.7 Seconds. The re ference range was not u sed to interpret this result as normal/abnor mal. INR (test code = 6301-6) Nor mal INR <1.1; Warfarin Therap eutic range 2.0 to 3. 0 or 2.5 to 3.5, dep ending upon the indica tions. Lab Interpretation (test Normal code = 75635-2) [facility] CampusUrinalysis2020-10-10 18:37:00 Test Item Value Reference Range Interpretation Comments APPEARANCE (test code = Clear Clear 9052805328) COLOR (test code = Yellow Yellow 8476432578) PH (test code = 4.8-8.0 2105596566) SP GRAVITY (test code = 1.003-1.030 4216656209) GLU U QUAL (test code = Normal Normal 9463194364) BLOOD (test code = 2+ Negative A 8534565904) KETONES (test code = 5 mg/dL Negative A 3984876886) PROTEIN (test code = 100 mg/dL Negative A 2887-8) UROBILIN (test code = Normal Normal 5387523444) BILIRUBIN (test code = Negative Negative 6531857097) NITRITE (test code = Negative Negative 3916874834) LEUK LOGAN (test code = Negative Negative 1178820079) RBC/HPF (test code = See_Comment H [Autom ated message] 4751261479) The system Vind[employer] generated this result transmit breanna reference range : 0 - 3 HPF. The refe rence range was not u sed to interpret th is result as normal/abnormal . WBC/HPF (test code = See_Comment [Autom ated message] 5837120188) The system [employer] generated this result transmit breanna reference range : 0 - 5 HPF. The refe rence range was not u sed to interpret th is result as normal/abnormal . BACTERIA (test code = Negative Negative 3136063764) MUCOUS (test code = Slight Negative LPF A 4624922603) SQ EPITH (test code = <1 HPF 3200990694) GRAN CASTS (test code = See_Comment [Au tomated message] 0507482540) The system [employer] generated this result transmit breanna reference range : <=1 LPF. The refere nce range was not u sed to interpret th is result as normal/abnormal . Lab Interpretation (test Abnormal code = 17042-4) [facility] with [id number] 18:30:00 Test Item Value Reference Range Interpretation Comments WBC (test code = See_Comment H [Automated 6690-2) message] The system which generated this result transmit breanna reference range : 4.30 - 11.10 10*3/?L. The reference range was not used to interpret this result as normal/abnormal . RBC (test code = See_Comment [Automated 789-8) message] The system which generated this result transmit breanna reference range : 3.93 - 5.25 10*6/?L. The reference range was not used to interpret this result as normal/abnormal . HGB (test code = 16.7 g/dL 11.6-15 H 718-7) HCT (test code = 49.3 % 35.7-45.2 H 4544-3) MCV (test code = 93.9 fL 80.6-95.5 787-2) MCH (test code = 31.8 pg 25.9-32.8 785-6) MCHC (test code = 33.9 g/dL 31.6-35.1 786-4) RDW-SD (test code = 43.6 fL 39-49.9 31205-5) RDW-CV (test code = 12.6 % 12-15.5 788-0) PLT (test code = See_Comment [Automated 777-3) message] The system which generated this result transmit breanna reference range : 166 - 358 10*3/ ?L. The reference range was not u sed to interpret th is result as normal/abnormal . MPV (test code = 10.5 fL 9.5-12.9 56191-6) NRBC/100 WBC (test See_Comment [Automat ed code = 0732986541) message] The system which generated this result transmit breanna reference range : 0.0 - 10.0 /100 WBCs. The reference range was not used to interpret this result as normal/abnormal . NRBC x10^3 (test code <0.01 See_Comment [Auto mated = 6774089462) message] The system which generated this result transmit breanna reference range : 10*3/?L. The reference range was not used to interpret this result as normal/abnormal . GRAN MAT (NEUT) % 82.1 % (test code = 770-8) IMM GRAN % (test code 0.40 % = 1550374093) LYMPH % (test code = 10.5 % 736-9) MONO % (test code = 6.7 % 5905-5) EOS % (test code = 0.1 % 713-8) BASO % (test code = 0.2 % 706-2) GRAN MAT x10^3(ANC) 10.11 10*3/uL 1.88-7.09 H (test code = 6797167250) IMM GRAN x10^3 (test 0.05 10*3/uL 0-0.06 code = 9480724787) LYMPH x10^3 (test code 1.29 10*3/uL 1.32-3.29 L = 731-0) MONO x10^3 (test code 0.82 10*3/uL 0.33-0.92 = 742-7) EOS x10^3 (test code = <0.03 0.03-0.39 L 711-2) BASO x10^3 (test code <0.03 0.01-0.07 = 704-7) Lab Interpretation Abnormal (test code = 80667-7) [facility] + LACTIC [id number] 17:49:00 Test Item Value Reference Range Interpretation Comments PH (test code = 7.32-7.42 H 3652294185) PCO2 GAMA (test code = See_Comment L [Auto mated 4910604906) message] The sy stem which generated this result transmitted reference range : 41 - 51 mmHg. The reference range was not used to interpret this result as normal/abnormal . PO2 GAMA (test code = See_Comment [Autom ated 3396241528) message] The sy stem which generated this result transmitted reference range : 25 - 40 mmHg. The reference range was not used to interpret this result as normal/abnormal . HCO3 GAMA (test code = See_Comment [Auto mated 6093134988) message] The sy stem which generated this result transmitted reference range : 24 - 28 mEq/L. The reference range was not used to interpret this result as normal/abnormal . AC VBE(BEAKER) (test mEq/L code = 8620930435) THB GAMA (test code = 17.2 g/dL 12-16 H 7162475908) %O2HB GAMA (test code = 61.0 % 52-63 3540515164) %COHB GAMA (test code = 1.4 % 0-1.5 2991361713) %METHB GAMA (test code = 0.3 % 0.4-1.5 L 6968549172) VOL%O2 GAMA (test code = 14.7 % 6-12 H 9768669696) NA (test code = 142 mmol/L 135-145 4314527988) K+ (test code = 3.7 mmol/L 3.5-5 1600232791) AC CA IONZ (test code = 4.60 mg/dL 4.5-5.3 1303465353) GLUCOSE (test code = 129 mg/dL 70-110 H 4926084810) LACTIC ACID (test code 2.01 mmol/L = 2795900587) Lab Interpretation Abnormal (test code = 38836-1) [facility] CampusTHYROID STIMULATING [id number] 22:36:00 Test Item Value Reference Range Interpretation Comments TSH (test code = See_Comment [Automated message] 2626903122) The system [employer] generated this result transmitted ref erence range: 0.45 - 4 .70 mIU/L. The refe rence range was not u sed to interpret this result as normal/abnor mal. Lab Interpretation (test Normal code = 12135-5) [facility] CampusXR CHEST 1 [id number] 22:14:51 No acute cardiopulmonary abnormality. IIvett MD., have reviewed this study and agree with the abovereport.EXAM: XR CHEST 1 VW HISTORY: 58 years-old Female presenting with ams COMPARISON: chest radiographs?07/22/2015 FINDINGS: The lungs are hyperexpanded, but otherwise clear without focalconsolidation.?No pleural effusion or pneumothorax. The cardiomediastinal silhouette is normal. No acute bony abnormality. Widening of the right acromioclavicular jointlikely representing AC joint separation. [facility], Radiant Results Inft User - 11/14/2018 5:16 PM CDTEXAM: XR CHEST 1 VWHISTORY: 58 years-old Female presenting with ams COMPARISON: chest radiographs 07/22/2015FINDINGS:The lungs are hyperexpanded, but otherwise clear without focalconsolidation. No pleural effusion or pneumothorax.The cardiomediastinal silhouette is normal.No acute bony abnormality. Widening of the right acromioclavicular jointlikely representing AC joint separation.IMPRESSIONNo acute cardiopulmonary abnormality. IEmilia MD., have reviewed this study and agree with the abovereport.[facility] CampusACETAMINOPHEN2019-09-01 22:08:00 Test Item Value Reference Range Interpretation Comments ACETAMINOP (test code = <10.0 10-30 L 4015248523) TONE (test code = TONE) Toxic: Greater than 200 ug/mL @ 4 hour post ingestion or greater than 50 ug/mL @ 12 hour post ingestion Lab Interpretation (test Abnormal code = 43738-2) [facility] CampusETHANOL2019-09-01 22:08:00 Test Item Value Reference Range Interpretation Comments ALCOHOL (test code = <10 mg/dL 6597183602) TONE (test code = TONE) <10 Vjsrfgdf04-017 Toxic>100 Depression of AGILE TEST LEAD>400 Fatalities Reported [facility] CampusCOM. METABOLIC PANEL (70602)2018-11-14 22:05:00 Test Item Value Reference Range Interpretation Comments NA (test code = 142 mmol/L 135-145 9786274735) K (test code = 4.3 mmol/L 3.5-5 2956177440) CL (test code = 111 mmol/L 98-108 H 2168744130) CO2 TOTAL (test code = 24 mmol/L 23-31 4169226842) AGAP (test code = 2-16 7219022645) BUN (test code = 21 mg/dL 7-23 6817440550) GLUCOSE (test code = 91 mg/dL 70-110 3718151431) CREATININE (test code = 0.92 mg/dL 0.5-1.04 5391732477) TOTAL BILI (test code = 0.2 mg/dL 0.1-1.5 7695013331) CALCIUM (test code = 9.0 mg/dL 8.6-10.6 0293132995) T PROTEIN (test code = 6.2 g/dL 6.3-8.2 L 4122593543) ALBUMIN (test code = 3.5 g/dL 3.5-5 1651796038) ALK PHOS (test code = 48 U/L 34-122 4598556621) ALT(SGPT) (test code = 14 U/L 9-51 7758460893) AST(SGOT) (test code = 19 U/L 13-40 2746873381) eGFR Calculation mL/min/1.73m2 (Non-) (test code = 1008952361) eGFR Calculation mL/min/1.73m2 () (test code = 1993040849) TONE (test code = TONE) Association of Glomerular Filtration Rate (GFR) and Staging of Kidney Disease*+ + + +| GFR (mL/min/1.73 m2)?| With Kidney Damage?|?Without Kidney Damage+ --------+ --------+ +|?>90?|?S tage one?|? Normal?+ ---------+ ---------+ +|?60-89? |?Stage two?|? Decreased GFR? + --+ --+ ------+|?30-59?|?Stage three?|? Stage three?? + --+ --+ ------+|?15-29?|?Stage four? |? Stage four?+ -------+ -------+ +|?<15 (or dialysis)?|?Stage five? |? Stage five?+ -------+ -------+ +*Each stage assumes the associated GFR level has been in effect for at least three months.?Stages 1 to 5, with or without kidney disease, indicate chronic kidney disease.Notes: Determination of stages one and two (with eGFR >59mL/min/1.73 m2) requires estimation of kidney damage for at least three months as defined by structural or functional abnormalities of the kidney, manifested by either:Pathological abnormalities or Markers of kidney damage (including abnormalities in the composition of the blood or urine or abnormalities in imaging tests). Lab Interpretation Abnormal (test code = 06604-0) [facility] CampusCT HEAD WO [id number] 21:52:08No acute findings. * * * * * * * * ORIGINAL REPORT * * * * * * * *HISTORY:Altered mental status (AMS), unclear cause TECHNIQUE: Noncontrast head CT was performed. COMPARISON:07/22/2015 FINDINGS: Exam is motion degraded. The ventricles and sulci are appropriate for patient's age. There is no midline shift. The basal cisterns are preserved. No largevascular territory infarction, intracranial hemorrhage or mass effect isseen. The extracranial tissues demonstrate no acute findings. [facility], Radiant Results Inft User - 11/14/2018 4:54 PM CDT* * * * * * * * ORIGINAL REPORT * * * * * * * *HISTORY:Altered mental status (AMS), unclear cause TECHNIQUE: Noncontrast head CT was performed.COMPARISON:07/22/2015FINDINGS: Exam is motion degraded.The ventricles and sulci are appropriate for patient's age.There is nomidline shift. The basal cisterns are preserved. No largevascular territory infarction, intracranialhemorrhage or mass effect isseen.The extracranial tissues demonstrate no acute findings.IMPRESSIONNoacute findings. [facility] / [facility] - DRUG SCREEN [id number] 21:48:00 Test Item Value Reference Range Interpretation Comments BENZO U (test code = Negative Negative 8701057378) NAOMI U (test code = Negative Negative 8844379152) AMPHET (test code = Negative Negative 0054527547) THC (test code = Presumptive Negative A Confirmatio n of 4087799367) Positive Presumptive Positive THC result requires physician order . METHADONE (test code Negative Negative = 2796323102) Meth U (test code = Negative Negative 9570430428) OPIATES (test code = Negative Negative 3250082094) Cocaine Metabolite Presumptive Negative A (test code = Positive 3034705092) PROPOXY (test code = Negative Negative 1917643810) Tric U (test code = Negative Negative 7581840321) PCP (test code = Negative Negative 9382756645) OXYCOD (test code = Negative Negative 7118165359) TONE (test code = Urine Drug Cutoff TONE) RangesBenzodiazep yong: ? ? 150 ng/mLBarbiturates : ?200 ng/mLAmphetamine: ? 500 ng/mLCannabinoids : ?50?ng/mLMethadon e: ? 200 ng/mLMethamphetam ine:? 500 ng/mL Opiates: ? 100 ng/mL or 2000 ng/mLCocaine: ? 150 ng/mLPropoxyphene :?300 ng/mLTricyclics:? 300 ng/mLOxycodone:? 100 ng/mLPCP:? 25?ng/mLThe results are to be used only for medical (i.e., treatment) purposes. Unconfirmed screening results must not be used for non-medical purposes (e.g., employment testing, legal testing). Lab Interpretation Abnormal (test code = 98301-9) [facility] CampusURINALYSIS2019-09-01 21:47:00 Test Item Value Reference Range Interpretation Comments APPEARANCE (test code = Clear Clear 0996486399) COLOR (test code = Yellow Yellow 0201679080) PH (test code = 4.8-8.0 0819668633) SP GRAVITY (test code = >=1.030 1.003-1.030 6736288643) GLU U QUAL (test code = Negative Negative 5879072327) BLOOD (test code = Small Negative A 1909126486) KETONES (test code = Negative Negative 5356639750) PROTEIN (test code = 100 mg/dL Negative A 2887-8) UROBILIN (test code = 0.2 mg/dL See_Comment [Auto mated message] 1504448134) The system Vindicia generated this result transmit breanna reference range : 0-1.0 mg/dL. Th e reference range was not used to interpret this result as normal/abnormal . BILIRUBIN (test code = Negative Negative 7225756997) NITRITE (test code = Negative Negative 7085887275) LEUK LOGAN (test code = Negative Negative 7664146934) RBC/HPF (test code = See_Comment H [Autom ated message] 9952998603) The system Vindicia generated this result transmit breanna reference range : 0 - 3 HPF. The refe rence range was not u sed to interpret th is result as normal/abnormal . WBC/HPF (test code = See_Comment H [Autom ated message] 2100749771) The system Vindicia generated this result transmit breanna reference range : 0 - 5 HPF. The refe rence range was not u sed to interpret th is result as normal/abnormal . BACTERIA (test code = Many Negative A 7795467977) Lab Interpretation (test Abnormal code = 69662-0) [facility] CampusCBC WITH [id number] 21:36:00 Test Item Value Reference Range Interpretation Comments WBC (test code = See_Comment [Automated 6690-2) message] The sy stem which generated this result transmitted reference range : 4.30 - 11.10 10*3/?L. The reference range was not used to interpret this result as normal/abnormal . RBC (test code = See_Comment [Automated 789-8) message] The sy stem which generated this result transmitted reference range : 3.93 - 5.25 10*6/?L. The reference range was not used to interpret this result as normal/abnormal . HGB (test code = 13.9 g/dL 11.6-15 718-7) HCT (test code = 41.6 % 35.7-45.2 4544-3) MCV (test code = 93.5 fL 80.6-95.5 787-2) MCH (test code = 31.2 pg 25.9-32.8 785-6) MCHC (test code = 33.4 g/dL 31.6-35.1 786-4) RDW-SD (test code = 43.8 fL 39-49.9 40665-5) RDW-CV (test code = 12.7 % 12-15.5 788-0) PLT (test code = See_Comment [Automated 777-3) message] The sy stem which generated this result transmitted reference range : 166 - 358 10*3/ ?L. The reference r renzo was not used to interpret this result as normal/abnormal . MPV (test code = 10.3 fL 9.5-12.9 13980-3) NRBC/100 WBC (test See_Comment [Automat ed code = 4489318665) message] The system which generated this result transmitted reference range : 0.0 - 10.0 /100 WBCs. The refer ence range was not u sed to interpret th is result as normal/abnormal . NRBC x10^3 (test code <0.01 See_Comment [Auto mated = 9191699209) message] The s ystem which generated this result transmitted reference range : 10*3/?L. The reference range was not used to interpret this result as normal/abnormal . GRAN MAT (NEUT) % 74.7 % (test code = 770-8) IMM GRAN % (test code 0.30 % = 9515767616) LYMPH % (test code = 14.7 % 736-9) MONO % (test code = 6.4 % 5905-5) EOS % (test code = 3.5 % 713-8) BASO % (test code = 0.4 % 706-2) GRAN MAT x10^3(ANC) 5.27 10*3/uL 1.88-7.09 (test code = 3991815870) IMM GRAN x10^3 (test <0.03 0-0.06 code = 4927740203) LYMPH x10^3 (test code 1.04 10*3/uL 1.32-3.29 L = 731-0) MONO x10^3 (test code 0.45 10*3/uL 0.33-0.92 = 742-7) EOS x10^3 (test code = 0.25 10*3/uL 0.03-0.39 711-2) BASO x10^3 (test code 0.03 10*3/uL 0.01-0.07 = 704-7) Lab Interpretation Abnormal (test code = 05323-3) [facility] CampusHBV BY REAL-TIME [id number] 19:39:00 Test Item Value Reference Range Interpretation Comments HBV PCR (test code = Not Detected Not Detected 78204-6) TONE (test code = The test uses [employer] Real TONE) Time HBV assay. It is FDA approved for plasma and serum samples to measure HBV DNA for use as an aid in the management of HBV-infected patients undergoing antiviral therapy. The FDA approved result ranges of the test are:? Not Detected <10?IU/mL,?<1.00?Log IU/mL 10 - 10^9?IU/mL,? 1.00-9.00? Log IU/mL >10^9?IU/mL,?>9.00?Log IU/mL [facility] CampusVITAMIN B1 (THIAMINE), WHOLE [id number] 02:53:00 Test Item Value Reference Range Interpretation Comments Vitamin B1, Whole 124 nmol/L 70-180 INTERPRETI VE INFORMATION: Blood (test code = Vitamin B 1, Whole Blood 38673-5) This assay tho ures the concentration o f thiamine diphosphate (TD P), the primary active form of vitamin B1. Benita roximately 90 percent of v itamin B1 present in whol e blood is TDP. Thiamine a nd thiamine monoph osphate, which comprise the remaining 10 pe rcent, are not measured. T est developed and characteristics determined by [facility]. S ee Compliance Stat ement B: [employer] erformed by [employer],[address] [facility], [place] [address] oqo .MIOX.c Leroy lafleur do, MD, Lab. Architectural Model MakerThe Hospitals of [facility] Sierra CampusVITAMIN B6, [id number] 20:15:00 Test Item Value Reference Range Interpretation Comments VIT B6 (test 27.1 nmol/L 20.0-125.0 INTERPRETIVE IN FORMATION: code = 2206) Vitamin B6 (Pyr idoxal 5-Phosphate) Py ridoxal 5'-phosphate me asured in a specimen collec breanna following an 8- hour or overnight fast accurately indicates vitam in B6 nutritional sta tus. Non-fasting spe cimen concentration r eflects recent vitamin intake. Test developed and characteristics determined by [employer]. See Compliance Stat ement B: [employer] erformed by [facility],[address] [facility], [place] [address] xnl .MIOX.co Leroy garcia MD, Lab. Architectural Model MakerThe Hospitals of [facility] CampusVITAMIN D, [id number] 12:39:00 Test Item Value Reference Range Interpretation Comments VIT D 25OH (test 51 ng/mL 25-80 code = 7483376320) 25-Hydroxy D3 50.8 ng/mL (test code = 5781254755) 25-Hydroxy D2 <2.5 ng/mL (test code = 9514026086) TONE (test code = Test developed and TONE) characteristics determined by [facility] Services. [facility] CampusHCV BY [id number] 12:15:00 Test Item Value Reference Range Interpretation Comments HCV by Real-Time Not Detected Not detected IU/mL PCR (test code = 9464156485) TONE (test code = [place] m2000 RealTime HCV TONE) reverse photoengraving supervisor-polymerase chain reaction(RT-PCR) assay is used. It is FDA approved for the quantitation of HCVin plasma and serum samples for HCV-infected individuals. The FDA approveddynamic range of this test is 12 IU/mL to 100,000,000 IU/mL (1.08-8.00 LogIU/mL). Assay results are reported in IU/mL..Result Interpretation:Not Detected: Target not detected (not the same as negative),<12 IU/mL: Detected (but not quantifiable)12-100,000,00 0 IU/mL,>100,000,000 IU/mL: >upper limit of quantification. [facility] CampusGC & CHLAMYDIA AMPLIFIED [id number] 17:06:00 Test Item Value Reference Range Interpretation Comments Lab Interpretation (test code = Normal 17720-2) [facility] CampusADC OR LIV ONLY - [id number] 03:30:00 Test Item Value Reference Range Interpretation Comments Lab Interpretation (test code = Normal 89415-2) [facility] CampusHIGH SENSITIVITY [id number] 19:14:00 Test Item Value Reference Range Interpretation Comments HS CRP (test code = 3412053879) 0.02 mg/dL <0.74 Lab Interpretation (test code = Normal 46126-9) [facility] CampusHIV 1/2 AG-AB WITH [id number] 09:21:00 Test Item Value Reference Range Interpretation Comments HIV Negative Negative Semi-quantitative (test code = 64298-5) TONE (test code = Non-reactive for HIV-1 TONE) antigen and HIV-1/HIV-2 antibodies.?No laboratory evidence of HIV infection.?Repeat in 2-4 weeks if acute HIV infection is suspected. [facility] CampusHCV [id number] 07:15:00 Test Item Value Reference Range Interpretation Comments HCV Semi-Quantitative (test code = 09489-4) [facility] CampusHEPATITIS B SURFACE [id number] 07:15:00 Test Item Value Reference Range Interpretation Comments HBsAB (test code = Negative 4916581585) HBsAb mIU/mL Semi-Quantitative (test code = 9485374264) TONE (test code = Interpretation:?Hepatitis TONE) B Surface Antibody? ? Negative - Patient is considered to be not immune to infection with HBV.? Positive - Anti-HBs detected at greater than or equal to 12 mIU/mL.?Patient is considered to be immune to infection with HBV.? [facility]HEPATIW[facility] B CORE ANTIBODY [id number] 07:05:00 Test Item Value Reference Range Interpretation Comments HBCM Semi-Quantitative (test code = 16425-0) TONE (test code = Biotin has been reported TONE) to cause a negative bias, interpret results relative to patient's use of biotin. [facility] [id number] 06:58:00 Test Item Value Reference Range Interpretation Comments HBsAg Semi-Quantitative (test code = 5195-3) [facility], [id number] 00:42:00 Test Item Value Reference Range Interpretation Comments VIT B12 (test code = 362 pg/mL 240-930 [id number]) TONE (test code = TONE) Biotin has been reported to cause a positive bias, interpret results relative to patient's use of biotin. Lab Interpretation (test Normal code = 21648-9) [facility] 00:42[facility]00 Test Item Value Reference Range Interpretation Comments FOLATE SER (test code = 7271043960) 8.1 ng/mL -20 Lab Interpretation (test code = Normal 04905-6) [facility]2019-[facility] 23:40:00 Test Item Value Reference Range Interpretation Comments Homocysteine (test code = 11.9 umol/L 4.7-12.6 [id number]) Lab Interpretation (test code = Normal 14702-8) [facility] WITH [id number] 19:42:00 Test Item Value Reference Range Interpretation Comments WBC (test code = See_Comment [Automated 0304-2) message] The sy stem which generated this result transmitted reference range : 4.30 - 11.10 10*3/?L. The reference range was not used to interpret this result as normal/abnormal . RBC (test code = See_Comment H [Automated 046-8) message] The sy stem which generated this result transmitted reference range : 3.93 - 5.25 10*6/?L. The reference range was not used to interpret this result as normal/abnormal . HGB (test code = 16.7 g/dL 11.6-15 H 718-7) HCT (test code = 50.5 % 35.7-45.2 H 4544-3) MCV (test code = 93.9 fL 80.6-95.5 787-2) MCH (test code = 31.0 pg 25.9-32.8 785-6) MCHC (test code = 33.1 g/dL 31.6-35.1 786-4) RDW-SD (test code = 45.2 fL 39-49.9 19712-9) RDW-CV (test code = 13.2 % 12-15.5 788-0) PLT (test code = See_Comment [Automated 777-3) message] The sy stem which generated this result transmitted reference range : 166 - 358 10*3/ ?L. The reference r renzo was not used to interpret this result as normal/abnormal . MPV (test code = 10.3 fL 9.5-12.9 03758-7) NRBC/100 WBC (test See_Comment [Automat ed code = [id number]) message] The system which generated this result transmitted reference range : 0.0 - 10.0 /100 WBCs. The refer ence range was not u sed to interpret th is result as normal/abnormal . NRBC x10^3 (test code <0.01 See_Comment [Auto mated = [id number]) message] The s ystem which generated this result transmitted reference range : 10*3/?L. The reference range was not used to interpret this result as normal/abnormal . GRAN MAT (NEUT) % 61.4 % (test code = 770-8) IMM GRAN % (test code 0.80 % = 5654952117) LYMPH % (test code = 27.8 % 736-9) MONO % (test code = 4.9 % 5905-5) EOS % (test code = 4.6 % 713-8) BASO % (test code = 0.5 % 706-2) GRAN MAT x10^3(ANC) 5.39 10*3/uL 1.88-7.09 (test code = 1933072890) IMM GRAN x10^3 (test 0.07 10*3/uL 0-0.06 H code = 9300151053) LYMPH x10^3 (test code 2.44 10*3/uL 1.32-3.29 = 731-0) MONO x10^3 (test code 0.43 10*3/uL 0.33-0.92 = 742-7) EOS x10^3 (test code = 0.40 10*3/uL 0.03-0.39 H 711-2) BASO x10^3 (test code 0.04 10*3/uL 0.01-0.07 = 704-7) Lab Interpretation Abnormal (test code = 92980-6) [facility]"
[2021-08-25 17:12] LABS: Absolute Lymphocytes (CBC) 2.5 K/uL (0.7-4.9); Hematocrit 43.5 % (36.0-45.0); Lymphocytes % 20.7 % (15.3-44.8); MPV 8.8 fL (7.6-11.3); RBC Red Blood Cell Count 5.08 M/uL (3.86-4.86)
[2021-08-25 17:32] LABS: Albumin 3.6 g/dL (3.4-5.0); Bilirubin Total 0.1 mg/dL (0.2-1.0); Potassium 4.3 mmol/L (3.5-5.1); Protein, Total 7.7 g/dL (6.4-8.2)
--- NOTE | 2021-08-25 18:36 | RAD REPORT ---
EXAM DESCRIPTION: CT - Abdomen Pelvis W Contrast - 08/25/2021 6:25 pm CLINICAL HISTORY: Abdominal pain COMPARISON: 2020 TECHNIQUE: Computed axial tomography of the abdomen pelvis was obtained. 100 cc Isovue-300 was admin istered intravenously. Oral contrast was not requested which limits evaluation of bowel and appendix All CT scans are performed using dose optimization technique as appropriate and may include automated exposure control or mA/KV adjustment according to patient size. FINDINGS: The liver, spleen, pancreas, adrenal and right kidney appear unremarkable. Left renal cysts. Normal appendix Atherosclerotic disease. 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 IMPRESSION: Bladder wall thickening may indicate cystitis
[2021-08-25 19:15] LABS: Urine Blood 2+ (Negative); Urine Glucose Negative (Negative); Urine Protein Negative (Negative); Urine Specific Gravity 1.015 (1.005-1.030); Urine pH 7.5 (5.0-7.0)
[2021-08-25 19:36] LABS: Urine Bacteria <20 /HPF (<20)
--- NOTE | 2021-08-25 19:47 | EDPHYS ---
Physician Documentation [facility] Name: Funmilayo Mcmillan Age: 61 yrs Sex: Female : 1960 Arrival Date: 08/25/2021 Time: 15:52 Bed 12 Private MD: ED Physician Lewis Morales HPI: 08/25 19:48 This 61 yrs old Female presents to ER via EMS with complaints of abdominal kb pain. 19:48 The patient presents with abdominal pain in the lower abdomen. Onset: The kb symptoms/episode began/occurred today. The symptoms do not radiate. Associated signs and symptoms: Pertinent positives: nausea. The symptoms are described as constant. Modifying factors: The symptoms are alleviated by nothing, the symptoms are aggravated by nothing. Severity of pain: At its worst the pain was moderate in the emergency department the pain is unchanged. The patient has not experienced similar symptoms in the past. The patient has not recently seen a physician. Historical: - Allergies: 15:59 No Known Allergies; jd3 - Home Meds: 16:24 duloxetine 30 mg oral CDRS 3 caps nightly [Active]; Vistaril 50 mg Oral cap 1 cap every jd3 4 hours for as needed [Active]; Dulcolax Stool Softener (dss) 100 mg Oral cap 1 cap 2 times per day [Active]; Risperdal 0.25 mg Oral tab 2 tabs 2 times per day [Active]; Benadryl 25 mg Oral cap 2 caps every 8 hours for as needed for itching [Active]; Milk of Magnesia Oral as needed [Active]; buspirone 5 mg Oral tab 1 tab 3 times per day [Active]; Keppra 100 mg/mL Oral soln 7.5 mL 2 times per day [Active]; amlodipine 10 mg tab 1 tab once daily [Active]; 17:22 lisinopril 40 mg Oral tab 1 tab once daily [Active]; Plavix 75 mg Oral tab 1 tab once jd3 daily [Active]; atorvastatin 40 mg oral tab 1 tab nightly [Active]; aspirin 81 mg Oral tab 1 tab daily [Active]; sennosides 8.6 mg oral cap 2 caps twice a day [Active]; famotidine 20 mg Oral tab 1 tab 2 times per day [Active]; - PMHx: 15:59 Hyperlipidemia; Indwelling zheng; CVA; Atrial Fib; Depression; Hypertension; GERD; jd3 vascular dementia; - Immunization history:: Adult Immunizations up to date. - Social history:: Smoking status: unknown. ROS: 19:48 Constitutional: Negative for fever, chills, and weight loss. kb 19:48 Abdomen/GI: Positive for abdominal pain, nausea, Negative for vomiting, diarrhea. 19:48 All other systems are negative. Exam: 19:47 Constitutional: This is a well developed, well nourished patient who is awake, alert, kb and in no acute distress. Head/Face: Normocephalic, atraumatic. ENT: Moist Mucous membranes Cardiovascular: Regular rate and rhythm with a normal S1 and S2. No gallops, murmurs, or rubs. No pulse deficits. Respiratory: Respirations even and unlabored. No increased work of breathing. Talking in full sentences Skin: Warm, dry with normal turgor. Normal color. MS/ Extremity: Pulses equal, no cyanosis. Neurovascular intact. Full, normal range of motion. Neuro: Awake and alert, GCS 15, oriented to person, place, time, and situation. Moves all extremities. Normal gait. Psych: Awake, alert, with orientation to person, place and time. Behavior, mood, and affect are within normal limits. 19:47 Abdomen/GI: Inspection: abdomen appears normal, Bowel sounds: normal, in all quadrants, Palpation: soft, in all quadrants, mild abdominal tenderness, in the right lower quadrant and left lower quadrant. Vital Signs: 16:02 BP 133 / 81; Pulse 88; Resp 18; Temp 99.5; Pulse Ox 99% ; Weight 90.72 kg; Height 5 ft. jd3 7 in. (170.18 cm); Pain 6/10; 17:17 BP 123 / 82; Pulse 78; Resp 18 S; Pulse Ox 97% on R/A; jd3 22:30 BP 142 / 89; Pulse 74; Resp 18; Pulse Ox 97% on R/A; ll3 16:02 Body Mass Index 31.32 (90.72 kg, 170.18 cm) jd3 MDM: 16:01 Patient medically screened. kb 19:47 Data reviewed: vital signs, nurses notes. Data interpreted: Pulse oximetry: on room air kb is 97 %. Interpretation: normal. Counseling: I had a detailed discussion with the patient and/or guardian regarding: the historical points, exam findings, and any diagnostic results supporting the discharge/admit diagnosis, lab results, radiology results, the need for outpatient follow up, a family practitioner, to return to the emergency department if symptoms worsen or persist or if there are any questions or concerns that arise at home. 08/25 16:01 Order name: CBC with Diff; Complete Time: 17:28 kb 08/25 16:01 Order name: CMP; Complete Time: 17:34 kb 08/25 16:01 Order name: Lipase; Complete Time: 17:34 kb 08/25 19:16 Order name: Urine Dipstick-Ancillary; Complete Time: 19:16 EDMS 08/25 19:16 Order name: Urine Microscopic Only; Complete Time: 19:40 kb 08/25 19:39 Order name: Urine Culture EDMO 08/25 16:01 Order name: IV Saline Lock; Complete Time: 17:18 kb 08/25 16:01 Order name: Labs collected and sent; Complete Time: 17:18 kb 08/25 16:30 Order name: CT Abd/Pelvis - IV Contrast Only; Complete Time: 18:43 kb 08/25 18:44 Order name: Urine Dipstick-Ancillary (obtain specimen); Complete Time: 19:37 kb 08/25 18:56 Order name: Cath; Complete Time: 19:03 jd3 Administered Medications: 20:35 Drug: Rocephin (cefTRIAXone) 1 grams Route: IV; Rate: calculated rate; Site: left ll3 antecubital; 21:26 Follow up: Response: No adverse reaction; IV Status: Completed infusion; IV Intake: [id number] Disposition Summary: 08/25/21 19:46 Discharge Ordered Location: Home kb Condition: Stable kb Diagnosis - Acute cystitis kb Followup: kb - With: Emergency Department - When: As needed - Reason: Worsening of condition Followup: kb - With: Private Physician - When: 2 - 3 days - Reason: Recheck today's complaints, Continuance of care, Re-evaluation by your physician Discharge Instructions: - Discharge Summary Sheet kb - Urinary Tract Infection, Adult, [id number] kb Forms: - Medication Reconciliation Form kb - Thank You Letter kb - Antibiotic Education kb - Prescription Opioid Use kb Prescriptions: - Augmentin 875-125 mg Oral Tablet - take 1 tablet by ORAL route every 12 hours for 10 days; 20 tablet; Refills: 0, kb Product Selection Permitted Signatures: Dispatcher [employer] Jackie Friedman, Quinn Amezcua, RN RN jd3 Pio Tang RN RN ll3
--- NOTE | 2021-08-25 19:47 | ER ---
Nurse's Notes [facility] Name: Funmilayo Mcmillan Age: 61 yrs Sex: Female : 1960 Arrival Date: 08/25/2021 Time: 15:52 Bed 12 Private MD: Diagnosis: Acute cystitis Presentation: 08/25 15:55 Chief complaint: EMS states: "The pt is from [facility] where after lunch she started jd3 screaming and reporting abdominal pain. the staff denies seeing blood in her stool and no reports of vomiting. the pt has difficulty communicating due to a past stroke, but managed to reports that her stomach was hurting and that she was nauseous.". Coronavirus screen: At this time, the client does not indicate any symptoms associated with coronavirus-19. Ebola Screen: No symptoms or risks identified at this time. Initial Sepsis Screen: Does the patient meet any 2 criteria? No. Patient's initial sepsis screen is negative. Does the patient have a suspected source of infection? No. Patient's initial sepsis screen is negative. Risk Assessment: Do you want to hurt yourself or someone else? Patient reports no desire to harm self or others. Onset of symptoms was August 25, 2021. 15:55 Method Of Arrival: EMS: [facility] jd3 15:55 Acuity: EDNA 3 jd3 Historical: - Allergies: 15:59 No Known Allergies; jd3 - Home Meds: 16:24 duloxetine 30 mg oral CDRS 3 caps nightly [Active]; Vistaril 50 mg Oral cap 1 cap every jd3 4 hours for as needed [Active]; Dulcolax Stool Softener (dss) 100 mg Oral cap 1 cap 2 times per day [Active]; Risperdal 0.25 mg Oral tab 2 tabs 2 times per day [Active]; Benadryl 25 mg Oral cap 2 caps every 8 hours for as needed for itching [Active]; Milk of Magnesia Oral as needed [Active]; buspirone 5 mg Oral tab 1 tab 3 times per day [Active]; Keppra 100 mg/mL Oral soln 7.5 mL 2 times per day [Active]; amlodipine 10 mg tab 1 tab once daily [Active]; 17:22 lisinopril 40 mg Oral tab 1 tab once daily [Active]; Plavix 75 mg Oral tab 1 tab once jd3 daily [Active]; atorvastatin 40 mg oral tab 1 tab nightly [Active]; aspirin 81 mg Oral tab 1 tab daily [Active]; sennosides 8.6 mg oral cap 2 caps twice a day [Active]; famotidine 20 mg Oral tab 1 tab 2 times per day [Active]; - PMHx: 15:59 Hyperlipidemia; Indwelling zheng; CVA; Atrial Fib; Depression; Hypertension; GERD; jd3 vascular dementia; - Immunization history:: Adult Immunizations up to date. - Social history:: Smoking status: unknown. Screenin:09 Abuse screen: Denies threats or abuse. Nutritional screening: No deficits noted. jd3 Tuberculosis screening: No symptoms or risk factors identified. Fall Risk Ambulatory Aid- None/Bed Rest/Nurse Assist (0 pts). Gait- Normal/Bed Rest/Wheelchair (0 pts) Mental Status- Oriented to own ability (0 pts). Total Cloud Fall Scale indicates No Risk (0-24 pts). Assessment: 16:02 General: Appears in no apparent distress. comfortable, Behavior is calm, cooperative, jd3 appropriate for age. Pain: Complains of pain in right upper quadrant Quality of pain is described as tender. Neuro: [place]dard Agitation-Sedation Scale (RASS): 0 - Alert and Calm Level of Consciousness is awake, alert, obeys commands, Oriented to person, situation, at baseline per nursing facility. Cardiovascular: Capillary refill < 3 seconds Patient's skin is warm and dry. Respiratory: Airway is patent Respiratory effort is even, unlabored, Respiratory pattern is regular, symmetrical. GI: Abdomen is round Bowel sounds present X 4 quads. Abd is soft X 4 quads Abdomen is tender to palpation in suprapubic area, right upper quadrant and right lower quadrant Reports lower abdominal pain, upper abdominal pain, nausea. : No signs and/or symptoms were reported regarding the genitourinary system. EENT: No signs and/or symptoms were reported regarding the EENT system. Derm: Skin is intact, Skin is dry, Skin is normal, Skin temperature is warm. Musculoskeletal: Circulation, motion, and sensation intact. Range of motion: intact in all extremities. 17:17 Reassessment: Patient appears in no apparent distress at this time. No changes from jd3 previously documented assessment. Patient and/or family updated on plan of care and expected duration. Pain level reassessed. 19:00 Reassessment: No changes from previously documented assessment. Patient and/or family ll3 updated on plan of care and expected duration. Pain level reassessed. 21:27 Reassessment: Called report to [facility]. ll3 Vital Signs: 16:02 BP 133 / 81; Pulse 88; Resp 18; Temp 99.5; Pulse Ox 99% ; Weight 90.72 kg; Height 5 ft. jd3 7 in. (170.18 cm); Pain 6/10; 17:17 BP 123 / 82; Pulse 78; Resp 18 S; Pulse Ox 97% on R/A; jd3 22:30 BP 142 / 89; Pulse 74; Resp 18; Pulse Ox 97% on R/A; ll3 16:02 Body Mass Index 31.32 (90.72 kg, 170.18 cm) jd3 ED Course: 15:52 Patient arrived in ED. eb 15:55 Quinn Thurston, GILA is Primary Nurse. jd3 15:59 Triage completed. jd3 16:01 Jackie Saab FNP-C is PHCP. kb 16:01 Lewis Morales MD is Attending Physician. kb 16:02 Arm band placed on. jd3 16:09 Patient has correct armband on for positive identification. Placed in gown. Bed in low jd3 position. Call light in reach. Side rails up X2. Adult w/ patient. Pulse ox on. NIBP on. 17:16 Inserted saline lock: 22 gauge in left antecubital area, using aseptic technique. jd3 placed Leslye URIOSTEGUI. 18:15 Accessed peripheral vein via ultrasound, utilizing dynamic ultrasound technique using jd3 20G Nexia IV catheter ,sterile technique, per hospital protocol. Clean \\T\\ dry. Dressing intact. Good blood return. Flushes easily. 18:27 CT Abd/Pelvis - IV Contrast Only In Process Unspecified. EDMS 19:00 Straight cath inserted, using sterile technique, 16 Fr. Specimen obtained. Returned jd3 clear yellow urine. Patient tolerated well. 21:15 No provider procedures requiring assistance completed. IV discontinued. ke1 Administered Medications: 20:35 Drug: Rocephin (cefTRIAXone) 1 grams Route: IV; Rate: calculated rate; Site: left ll3 antecubital; 21:26 Follow up: Response: No adverse reaction; IV Status: Completed infusion; IV Intake: [id number] Medication: 16:09 VIS not applicable for this client. jd3 Intake: 21:26 IV: 50ml; Total: 50ml. ll3 Outcome: 19:46 Discharge ordered by MD. leiva 21:16 Discharged to home ambulatory. ke1 21:16 Condition: good 21:16 Discharge instructions given to patient. 23:19 Patient left the ED. bb Signatures: Dispatcher [employer] EDJackie Moses, JACQUELIN SOLIS-Bety Jay RN RN bb Quinn Thurston RN RN jd3 Bev Rodriguez Lynsea RN RN ll3 Joseph Dewey RN RN ke1
[2021-08-25] MEDS ORDERED: NA CHLORIDE 0.9% 50 ML ONE (20:33)
[2021-08-25] MEDS ORDERED: CEFTRIAXONE 1000 MG/VIAL ONE (20:33)
[2021-08-25 23:39] VITALS: TEMP 99.5
[2021-08-25 23:41] VITALS: O2SAT 97
[2021-08-25 23:42] VITALS: BP 142/89
== END 2021-08-25 23:19 | disposition home or self-care (01) ==
LOC: ER 15:48
DX: N30.00 Acute cystitis without hematuria (principal); I10 Essential (primary) hypertension; I48.91 Unspecified atrial fibrillation; F01.50 Vascular dementia, unspecified severity, without behavioral disturbance, psychotic disturbance, mood disturbance, and anxiety; F32.A Depression, unspecified; Z86.73 Personal history of transient ischemic attack (TIA), and cerebral infarction without residual deficits; Z79.01 Long term (current) use of anticoagulants
CPT/HCPCS: 96365; 87088; 85025; 87086; 36415; 83690; 80053; 74177; 51702; 99284; Q9967; 81003; 81015

== ENCOUNTER 2024-12-06 13:33 | Inpatient (IN) | payer OTHER ==
--- OUTSIDE RECORDS SUMMARY | 2024-12-06 13:46 | XMS REPORT | Continuity of Care Document ---
Author Name Unknown Address [address] [facility] [address] [place] [address] [facility] Address [address] [facility] [address] [place] [address] Care Team Providers Care Assessment Expert Name Role Phone Bev Chauhan MD Primary Care Physician [facility] Attending Clinician [phone] Doctor Unassigned, Dorris Attending Clinician U Tre Pretty Attending Clinician Unavailable Jazz Larkin LMSW Attending Clinician Unava ilable Doctor Unassigned, Dorris Attending Clinician U navhomero Ward RNTanna Attending Clinician Unav leaable Devonte ADAME, Indira Attending Clinician Unava ilable SONIA BENSON Attending Clinician UnavailLEANNE Cruz Attending Clinician Unavailable RUDY KING Attending Clinician Un available Jarett PINO, Rudy Lowery Attending Clinician MAN GIRON Attending Clinician Unavailable ALBERTO MARCIAL Attending Clinician Unavailable Man Giron MD Attending Clinician [phone] DAYA LOVE Attending Clinician Unavailable Bev Chauhan MD Attending Clinician [phone] LUCIANO CERON Attending Clinician Unavailgatito Blount [facility], Nikki Alanis Attending Clinician [phone] Marta Brito Attending Clinician [phone] MARTA ALSTON Attending Clinician UnavailOtis Hernandez DO Attending Clinician [phone] Rogelio URIOSTEGUI, Katiana Attending Clinician UnavailJOHNATHON Rodriguez Attending Clinician Unavailable Aniket PINO, Alberto Attending Clinician [phone] JORJE EDDY Attending Clinician Unavailable Pat IPNO, Hossein Collazo Attending Clinician [phone] HOSSEIN VILCHIS Attending Clinician Unavailshailesh Lockett RN, Keisha Garcia Attending Clinician Unavailable BEV CHAUHAN Attending Clinician Julia Dubose RN, Funmilayo Almazan Attending Clinician [phone] Dorene Hart MD Attending Clinician [phone] DORENE HART Attending Clinician Unavailshailesh Parr RN, Melinda Garcia Attending Clinician + [phone] Ang Mclean MD Attending Clinician [phone] Leland Richards MD Attending Clinician [phone] JUSTINE PORTER Attending Clinician Unavailshailesh Love MD, Daya Attending Clinician [phone] , [facility] 1 - Attending Clinician Un available Elian PINO, Preston K.H. Attending Clinician + [phone] PRESTON CORTES K.HKeyanna Attending Clinician UnavailMunir Cespedes Attending Clinician [phone] Tre Jamil Admitting Clinician Unavailable Leland Richards MD Admitting Clinician [phone] Payers Payer Name Policy Type Policy Number Effective Date Expirati on Date Source [employer] MEDICA[employer] [id number] 2015 00:00:00 Problems Condition Name Condition Details Condition Category Status Onset Date Resolution Date Last Treatment Date Treating Clinician Comments Source ERRONEOUS ENCOUNTER- -DISREGARD ERRONEOUS ENCOUNTER- -DISREGARD Disease Active 0 6-15 00:00: 00 [facility] Resides in [facility] facility Resides in [facility]ci facility Disease Active 0 4-21 00:00: 00 [facility] Wheelchair bound Wheelchair bound Disease Active 2-26 00:00: 00 [facility] Cerebrovas cular accident (CVA) due to occlusion of left vertebral artery Cerebrovas cular accident (CVA) due to occlusion of left vertebral artery Disease Active 0 2-26 00:00: 00 [facility] Bedridden Bedridden Disease Active 0 2-26 00:00: 00 [facility] Wheelchair bound Wheelchair bound Disease Active 2-26 00:00: 00 [facility] Schizophre fidel, unspecifie d type Schizophre fidel, unspecifie d type Disease Active 2-26 00:00: 00 [facility] Need for 23-polyval ent pneumococc al polysaccha ride vaccine Need for 23-polyval ent pneumococc al polysaccha ride vaccine Disease Active 2-26 00:00: 00 [facility] Gastrostom y status Gastrostom y status Disease Active 2019-0318 00:00: 00 [facility] Other complicati ons of procedures , not elsewhere classified , initial encounter Other complicati ons of procedures , not elsewhere classified , initial encounter Disease Active 2019-0318 00:00: 00 [facility] Abnormal surgical wound Abnormal surgical wound Disease Active 2019-0318 00:00: 00 [facility] History of stroke History of stroke Disease Active 2019-03 00:00: 00 [facility] Requires daily assistance for activities of daily living (ADL) and comfort needs Requires daily assistance for activities of daily living (ADL) and comfort needs Disease Active 2019-03 00:00: 00 [facility] Lung mass Lung mass Disease Active 2019-03 00:00: 00 [facility] Speech problem Speech problem Disease Active 2019-03 00:00: 00 [facility] E44.0 Moderate protein calorie malnutriti on E44.0 Moderate protein calorie malnutriti on Disease Active 2019-03 0-13 00:00: 00 [facility] At risk for seizures At risk for seizures Disease Active 2019-03 0 00:00: 00 [facility] Cocaine abuse Cocaine abuse Disease Recurre nce 2019-03 0 00:00: 00 [facility] At risk for UTI related to indwelling catheter At risk for UTI related to indwelling catheter Disease Active 2019-03 00:00: 00 [facility] Coronary artery disease without angina pectoris Coronary artery disease without angina pectoris Disease Active 07-22 00:00: 00 [facility] Coronary artery disease without angina pectoris Coronary artery disease without angina pectoris Disease Active 07-22 00:00: 00 [facility] HTN (hypertens ion) HTN (hypertens ion) Disease Active 07-22 00:00: 00 [facility] PAD (periphera l artery disease) PAD (periphera l artery disease) Disease Active 05-10 00:00: 00 [facility] PAD (periphera l artery disease) PAD (periphera l artery disease) Disease Active 05-10 00:00: 00 [facility] Respirator y distress Respirator y distress Disease Resolve d 2019-03 0-15 00:00: 00 2020-02-11 00:00:00 2020-02-11 17:46:54 [facility] Acute ischemic left MCA stroke Acute ischemic left MCA stroke Disease Resolve d 2019-03 0-10 00:00: 00 2020-02-11 00:00:00 2020-02-11 17:46:50 [facility] Chest pain Chest pain Disease Resolve d 07-21 00:00: 00 2020-02-11 00:00:00 2020-02-11 17:46:35 [facility] Allergies, Adverse Reactions, Alerts Allergy Name Allergy Type Status Severity Reaction(s) Onset Date Inactive Date Treating Clinician Comments Source No Known Allergie s DA Active U 11-29 00:00: 00 [facility] NO KNOWN ALLERGIE S Drug Class Active [facility] Social History Social Habit Start Date Stop Date Quantity Comments Source History SDOH Alcohol Frequency [facility] History SDOH [facility] Alcohol Binge [facility] Sexual orientation [facility] ASSERTION Not [facility] Exposure to SARS-CoV-2 (event) 2020-04-30 00:00:00 2020-05-30 16:22:00 Not sure [facility] Alcoholic beverage intake 2020-04-04 00:00:00 2020-04-04 00:00:00 0 /d [facility] Alcohol intake 2020-01-31 00:00:00 2020-01-31 00:00:00 0 /d [facility] History of Social function 2019-12-13 00:00:00 2019-12-13 00:00:00 [facility] Cigarette pack-years 2019-02-01 00:00:00 2019-02-01 00:00:00 [facility] Cigarettes smoked current (pack per day) - Reported 2019-02-01 00:00:00 2019-02-01 00:00:00 [facility] Tobacco use and exposure 2019-02-01 00:00:00 2019-02-01 00:00:00 Former smokeless tobacco user [facility] Tobacco Comment 2018-10-01 00:00:00 2018-10-01 00:00:00 started smoking at 13 years old, uses a pack every 2 days when not smoking. [facility] Alcohol Comment 2017-06-30 00:00:00 2017-06-30 00:00:00 3 beers daily [facility] History of tobacco use 1973-02-01 00:00:00 1999-06-02 00:00:00 Snuff User [facility] Sex assigned at 1960 00:00:00 1960 00:00:00 [facility] Smoking Status Start Date Stop Date Source Ex-smoker 2019-02-01 00:00:00 2019-02-01 00:00:00 [facility] Current every day smoker 2018-11-14 00:00:00 [facility] Medications Ordered Medication Name Filled Medication Name Start Date Stop Date Current Medication? Ordering Clinician Indication Dosage Frequency Signature (SIG) Comments Components Source risperiDONE 0.5 mg tablet 06 00:00: 00 Yes [id number] Take 1 tablet twice a day through enteral tube for agitation. For breakthrou agitation can take every 6 hours, no more than 4 pills total in 24 hours. If agitation continues call the clinic. [facility] cefpodoxime 100 mg tablet 05-30 00:00: 00 Yes [id number] 100mg Take 1 tablet by mouth 2 (two) times daily. [facility] iohexoL (OMNIPAQUE 300-50 mL)) injection 30 mL 03-28 18:45: 00 03-28 18:15 :00 No 30mL 30 mL, Intravenou s, ONCE, 1 dose, 03/28/20 at 1245, Routine [facility] collagenase (SANTYL) 250 unit/gram ointment 2019-03 00:00: 00 Yes [id number] Apply to affected area(s) 2 (two) times daily. [facility] 2019-03 00:00: 00 Yes Patient needs Jevity, she consumes 9 bottles a day. [facility] 2019-03 00:00: 00 Yes Patient needs Jevity, she consumes 9 bottles a day. [facility] lisinopriL 40 mg tablet 2019-03 00:00: 00 Yes [id number] 40mg Take 1 tablet by mouth daily. [facility] Polyethylen e Glycol 3350 17 gram powder 2019-03 00:00: 00 Yes [id number] 17g Take 1 Packet through enteral tube 2 (two) times daily. [facility] aspirin 81 mg chewable tablet 2019-03 00:00: 00 Yes [id number] 81mg Take 1 tablet through enteral tube daily. [facility] clopidogreL 75 mg tablet 2019-03 00:00: 00 Yes [id number] 75mg Take 1 tablet through enteral tube daily. [facility] levETIRAcet am 100 mg/mL oral solution 2019-03 00:00: 00 Yes [id number] 750mg Take 7.5 mL through enteral tube 2 (two) times daily. [facility] amLODIPine 10 mg tablet 2019-03 00:00: 00 Yes [id number] 10mg Take 1 tablet through enteral tube daily. [facility] atorvastati n 40 mg tablet 2019-03 00:00: 00 Yes [id number] 40mg Take 1 tablet through enteral tube at bedtime. [facility] famotidine 20 mg tablet 2019-03 00:00: 00 Yes [id number] 20mg Take 1 tablet by mouth 2 (two) times daily. [facility] risperiDONE 0.5 mg tablet 2019-03 00:00: 00 06-19 00:00 :00 No [id number] .5mg Take 1 tablet through enteral tube 2 (two) times daily. [facility] aspirin 81 mg chewable tablet 2019-03 00:00: 00 02-05 00:00 :00 No [id number] 81mg Take 1 tablet through enteral tube daily. [facility] levETIRAcet am 100 mg/mL oral solution 2019-03 00:00: 02-05 00:00 :00 No [id number] 750mg Take 7.5 mL through enteral tube 2 (two) times daily. [facility] clopidogreL 75 mg tablet 2019-03 00:00: 00 02-05 00:00 :00 No [id number] 75mg Take 1 tablet through enteral tube daily for 90 days. [facility] mupirocin (BACTROBAN OINT) 2 % skin ointment 2019-03 01:00: 00 Yes [facility] iohexol (OMNIPAQUE 350 BULK-100 mL) injection 100 mL 2019-03 20:48: 00 01-08 20:48 :00 No 100mL 100 mL, Intravenou s, ONCE, 1 dose, 10/26/20 at 1600, Routine [facility] cefTRIAXone (ROCEPHIN) 2,000 mg in NaCl 0.9% (NS) 100 mL MINI-BAG 2019-03 16:00: 00 01-08 19:06 :22 No 2000mg 2,000 mg, IV Piggyback, Q24H ABX, First dose on Thu01/09/20 at 1100, Until Discontinu ed, 100 mL
Reas on for Anti-Infec tive: Documented Infection< br>Documen breanna Infection Site: Urine
D uration of Therapy: 7 days [facility] acetaminoph en (TYLENOL) 160 mg/5 mL liquid 650 mg 2019-03 13:32: 57 Yes 650mg 650 mg, Enteral, Q4HPRN, Starting Thu01/09/20 at 0832, Until Discontinu ed, Routine, Pain (scale 1-3), Pain (scale 4-6) [facility] amLODIPine 10 mg tablet 2019-03 00:00: 00 02-05 00:00 :00 No [id number] 10mg Take 1 tablet through enteral tube daily. [facility] clopidogreL 75 mg tablet 2019-03 00:00: 00 01-10 00:00 :00 No [id number] 75mg Take 1 tablet through enteral tube daily. [facility] aspirin 81 mg EC tablet 2019-03 00:00: 01-02 00:00 :00 No [id number] 81mg Take 1 tablet by mouth daily for 30 days. [facility] barium sulfate-NO CHARGE- (VARIBAR NECTOR) 40 % (w/v) oral suspension 40 mL 2019-03 15:45: 00 01-02 15:45 :00 No 40mL 40 mL, Oral, ONCE, 1 dose, Thu01/03/20 at 1045, Routine [facility] barium sulfate (LIQUID E-Z PAQUE) 60 % (w/v) oral suspension 40 g 2019-03 15:45: 00 01-02 15:40 :00 No 40g 40 g, Oral, ONCE, 1 dose, Thu01/03/20 at 1045, [facility] lisinop[facility] (PRINIVIL,Z ESTRIL) tablet 20 mg 2019-03 13:00: 00 Yes 20mg 20 mg, Enteral, BID, First dose (after last modificati on) on Thu01/03/20 at 0800, Until Discontinu ed, Routine [facility] atorvastati n 40 mg tablet 2019-03 00:00: 02-05 00:00 :00 No [id number] 40mg Take 1 tablet through enteral tube at bedtime. [facility] risperiDONE 0.5 mg tablet 2019-03 00:00: 02-05 00:00 :00 No [id number] .5mg Take 1 tablet through enteral tube 2 (two) times daily. [facility] Polyethylen e Glycol 3350 17 gram powder 2019-03 00:00: 02-05 00:00 :00 No [id number] 17g Take 1 Packet through enteral tube 2 (two) times daily. [facility] famotidine 20 mg tablet 2019-03 00:00: 02-05 00:00 :00 No [id number] 20mg Take 1 tablet by mouth 2 (two) times daily. [facility] lisinopriL 40 mg tablet 2019-03 00:00: 02-05 00:00 :00 No [id number] 40mg Take 1 tablet by mouth daily. [facility] levETIRAcet am 100 mg/mL oral solution 2019-03 00:00: 00 01-10 00:00 :00 No [id number] 750mg Take 7.5 mL through enteral tube 2 (two) times daily. [facility] lisinopriL 20 mg tablet 2019-03 00:00: 01-02 00:00 :00 No [id number] 20mg Take 1 tablet by mouth 2 (two) times daily. [facility] famotidine 40 mg/5 mL (8 mg/mL) suspension 2019-03 00:00: 00 01-02 00:00 :00 No [id number] 20mg Take 2.5 mL through enteral tube 2 (two) times daily for 31 days. [facility] clopidogreL (PLAVIX) tablet 75 mg 2019-03 14:00: 00 Yes 75mg 75 mg, Enteral, DAILY, First dose on Thu01/01/20 at 0900, Until Discontinu ed, Routine [facility] amLODIPine (NORVASC) tablet 10 mg 2019-03 14:00: 00 Yes 10mg 10 mg, Enteral, DAILY, First dose (after last modificati on) on Thu12/31/19 at 0900, Until Discontinu ed, Routine [facility] iohexoL (OMNIPAQUE 300-50 mL)) injection 50 mL 2019-03 00:15: 00 12-30 00:15 :00 No 50mL 50 mL, Injection, ONCE, 1 dose, Thu12/30/19 at 1915, Routine [facility] FENTanyl PF (SUBLIMAZE (PF)) injection 2019-03 23:13: 27 12-29 23:13 :27 No Slow IV Push, PRN, Starting Thu12/30/19 at 1813, Until Thu12/30/19 at 1813, Routine [facility] midazolam (VERSED) injection 2019-03 23:13: 16 12-29 23:13 :16 No IV Push, PRN, Starting Thu12/30/19 at 1813, Until Thu12/30/19 at 1813, Routine [facility] glucagon (GLUCAGEN DIAGNOSTIC KIT) injection 2019-03 23:12: 41 12-29 23:12 :41 No Intravenou s, PRN, Starting Thu12/30/19 at 1812, Until Thu12/30/19 at 1812, Routine [facility] risperiDONE (RISPERDAL) tablet 0.5 mg 2019-03 13:00: 00 Yes .5mg 0.5 mg, Enteral, BID, First dose (after last modificati on) on Thu12/30/19 at 0800, Until Discontinu ed, Routine [facility] acetylcyste ine (MUCOMYST) 200 mg/mL (20 %) solution 200 mg 2019-03 23:00: 00 Yes 1mL 200 mg (1 mL), Inhalation , Q6H, First dose on Thu12/29/19 at 1800, Until Discontinu ed, Routine [facility] glycopyrrol ate (ROBINUL) injection 0.1 mg 2019-03 22:45: 00 12-28 22:15 :00 No .1mg 0.1 mg, Slow IV Push, ONCE, 1 dose, Danay 12/29/19 at 1745, Routine [facility] Saline Bubble Study 2019-03 21:11: 28 Yes 6mL 6 mL, Injection, SEE-INSTRU CTIONS, 2 doses, Starting Thu12/29/19 at 1611, Until Discontinu ed, Routine [facility] Saline Bubble Study 2019-03 21:11: 27 Yes 6mL 6 mL, Injection, SEE-INSTRU CTIONS, 2 doses, Starting Thu12/29/19 at 1611, Until Discontinu ed, Routine [facility] ipratropium -albuteroL (DUONEB) 0.5 mg-3 mg(2.5 mg base)/3 mL nebulizer solution 3 mL 2019-03 21:00: 00 12-29 02:32 :45 No 3mL 3 mL, Inhalation , QID, First dose on Thu12/29/19 at 1600, Until Discontinu ed, Routine [facility] piperacilli n-tazobacta m (ZOSYN) 3.375 g in NaCl 0.9% (NS) 100 mL MINI-BAG 2019-03 18:00: 00 01-01 18:08 :52 No 3.375g 3.375 g, IV Piggyback, Q6H ABX, First dose on Thu12/29/19 at 1300, Until Discontinu ed, 100 mL
Reas on for Anti-Infec tive: Empiric Therapy for Suspected Infection< br>Empiric Therapy Site: Respirator y
Durat ion of therapy: 72 hours [facility] chlorhexidi ne (PERIDEX) 0.12 % mouthwash 15 mL 2019-03 17:00: 00 Yes 15mL 15 mL, Oral (Swish And Spit Out), Q6H, First dose on Thu12/29/19 at 1200, Until Discontinu ed, Routine [facility] ipratropium -albuteroL (DUONEB) 0.5 mg-3 mg(2.5 mg base)/3 mL nebulizer solution 3 mL 2019-03 05:00: 00 Yes 3mL 3 mL, Inhalation , Q6H ABX, First dose (after last modificati on) on Thu12/29/19 at 0000, Until Discontinu ed, Routine [facility] levETIRAcet am (KEPPRA) 100 mg/mL oral solution 750 mg 2019-03 01:00: 00 Yes 750mg 750 mg, Enteral, BID, First dose on Thu12/28/19 at 2000, Until Discontinu ed, Routine [facility] risperiDONE (RISPERDAL) tablet 1 mg 2019-03 01:00: 00 12-29 11:17 :47 No 1mg 1 mg, Enteral, BID, First dose (after last modificati on) on Thu12/28/19 at 2000, Until Discontinu ed, Routine [facility] ipratropium (ATROVENT) 0.02 % nebulizer solution 0.5 mg 2019-03 17:00: 00 12-28 17:04 :12 No .5mg 0.5 mg, Inhalation , QID, First dose (after last modificati on) on Thu12/28/19 at 1200, Until Discontinu ed, Routine [facility] scopolamine transdermal (TRANSDERM- SCOP) patch 1.5 mg 2019-03 15:00: 00 01-04 18:36 :39 No 1.5mg 1.5 mg, Topical, Administer over 72 Hours, Q72H, First dose on Thu12/28/19 at 1000, Until Discontinu ed, Routine [facility] KCL 20 mEq/15 mL solution 40 mEq 2019-03 13:30: 00 12-27 13:08 :00 No 40meq 40 mEq, Enteral, ONCE, 1 dose, Thu12/28/19 at 0830, Routine [facility] NaCl 0.9% (NS) IV infusion 1,000 mL 2019-03 08:30: 00 12-28 17:04 :22 No 1000mL at 100 mL/hr, IV Infusion, CONTINUOUS , Starting Thu12/28/19 at 0330, Until Thu12/29/19 at 1204, Routine [facility] Polyethylen e Glycol 3350 (MIRALAX) powder 17 g 2019-03 01:00: 00 Yes 17g 17 g, Enteral, BID, First dose on Thu12/27/19 at 2000, Until Discontinu ed, Routine [facility] ipratropium (ATROVENT) 0.02 % nebulizer solution 0.5 mg 2019-03 01:00: 00 12-27 14:37 :05 No .5mg 0.5 mg, Inhalation , TID, First dose on Thu12/27/19 at 2000, Until Discontinu ed, Routine [facility] sennosides- docusate sodium (SENOKOT-S) 8.6-50 mg per tablet 1 tablet 2019-03 18:45: 00 Yes 1{tbl} 1 tablet, Enteral, BID, First dose on Thu12/27/19 at 1345, Until Discontinu ed, Routine [facility] amLODIPine (NORVASC) tablet 5 mg 2019-03 14:00: 00 12-30 11:57 :17 No 5mg 5 mg, Enteral, DAILY, First dose on Thu12/27/19 at 0900, Until Discontinu ed, Routine [facility] LORazepam (ATIVAN) injection 2 mg 2019-03 13:30: 00 12-26 13:29 :00 No 2mg 2 mg, Slow IV Push, ONCE, 1 dose, Thu12/27/19 at 0830, Routine [facility] magnesium sulfate in water 2 gram/50 mL (4 %) infusion 2 g 2019-03 13:15: 00 12-26 12:42 :00 No 2g 2 g, IV Piggyback, ONCE, 1 dose, Thu12/27/19 at 0815, Routine [facility] QUEtiapine (SEROQUEL) tablet 25 mg 2019-03 09:30: 00 12-26 08:29 :00 No 25mg 25 mg, Enteral, ONCE, 1 dose, Thu12/27/19 at 0430, Routine [facility] lisinopriL (PRINIVIL,Z ESTRIL) tablet 10 mg 2019-03 01:00: 00 01-02 12:46 :12 No 10mg 10 mg, Enteral, BID, First dose (after last modificati on) on Thu12/26/19 at 1999, Until Discontinu ed, Routine [facility] risperiDONE (RISPERDAL) tablet 2 mg 2019-03 01:00: 00 12-27 13:55 :41 No 2mg 2 mg, Enteral, BID, First dose (after last modificati on) on Thu12/26/19 at 1999, Until Discontinu ed, Routine [facility] hydralAZINE (APRESOLINE ) injection 10 mg 2019-03 22:10: 44 Yes 10mg 10 mg, Slow IV Push, Q6HPRN, Starting Thu12/26/19 at 1710, Until Discontinu ed, Routine, SBP > 160
Ind ication: Hypertensi ve Emergency [facility] LORazepam (ATIVAN) injection 1 mg 2019-03 21:45: 00 12-25 20:49 :00 No 1mg 1 mg, Slow IV Push, ONCE, 1 dose, Thu12/26/19 at 1645, Routine [facility] LORazepam (ATIVAN) injection 2 mg 2019-03 15:15: 00 12-25 15:25 :00 No 2mg 2 mg, Slow IV Push, ONCE, 1 dose, Thu12/26/19 at 1015, [facility]op[facility] (PLAVIX) tablet 75 mg 2019-03 14:00: 00 12-26 22:55 :53 No 75mg 75 mg, Enteral, DAILY, First dose (after last modificati on) on 12/26/19 at 0900, Until Discontinu ed, Routine [facility] lisinopriL (PRINIVIL,Z ESTRIL) tablet 5 mg 2019-03 12:15: 00 12-25 19:54 :51 No 5mg 5 mg, Enteral, DAILY, First dose on 12/26/19 at 0715, Until Discontinu ed, Routine [facility] levETIRAcet am (KEPPRA) 750 mg in NaCl 0.9% (NS) 100 mL IV infusion 2019-03 01:00: 00 12-27 14:14 :01 No 750mg 750 mg, IV Infusion, Q12H, First dose (after last reorder) on 12/25/19 at 2000, Until Discontinu ed, 100 mL [facility] levETIRAcet am (KEPPRA) in NACL (ISO-OS) 1,000 mg/100 mL RTU 2019-03 14:15: 00 12-24 13:31 :00 No 1000mg 1,000 mg, IV Infusion, ONCE, 1 dose, 12/25/19 at 0915, 100 mL [facility] LORazepam (ATIVAN) injection 2 mg 2019-03 14:15: 00 12-24 13:15 :00 No 2mg 2 mg, Slow IV Push, ONCE, 1 dose, [place] 12/25/19 at 0915, Routine [facility] aspirin EC tablet 81 mg 2019-03 14:00: 00 Yes 81mg 81 mg, Enteral, DAILY, First dose on 12/25/19 at 0900, Until Discontinu ed, Routine [facility] clopidogreL (PLAVIX) tablet 75 mg 2019-03 14:00: 00 12-25 12:12 :59 No 75mg 75 mg, Oral, DAILY, First dose on 12/25/19 at 0900, Until Discontinu ed, Routine [facility] risperiDONE (RISPERDAL) tablet 2 mg 2019-03 14:00: 00 12-25 22:14 :05 No 2mg 2 mg, Enteral, QAM, First dose on 12/25/19 at 0900, Until Discontinu ed, Routine [facility] niCARdipine (CARDENE I.V.) 40 mg in 200 mL 0.83% Sodium Chloride (RTU) infusion 2019-03 13:02: 45 12-27 14:14 :18 No 2.5mg/h 2.5-15 mg/hr (12.5-75 mL/hr), IV Infusion, TITRATE, SBP goal - 120-160, Starting [place] 12/25/19 at 0802
In itiate infusion at 2.5 mg/hr.&nbs p; Ti trate by 2.5 mg/hr every 5 minutes to 15 minutes as needed to achieve and maintain goal blood pressure. Maximum dose = 15 mg/hr. If goal not maintained at maximum allowed dose, contact prescriber .
[facility] atorvastati n (LIPITOR) tablet 40 mg 2019-03 02:00: 00 Yes 40mg 40 mg, Enteral, QHS, First dose on 12/24/19 at 2100, Until Discontinu ed, [facility] 40 mg/5 mL (8 mg/mL) suspension 20 mg 2019-03 01:00: 00 Yes 20mg 20 mg, Enteral, BID, First dose on 12/24/19 at 2000, Until Discontinu ed, Routine [facility] heparin (porcine) injection 5,000 Units 2019-03 01:00: 00 Yes 5000U 5,000 Units, Subcutaneo us, Q12H, First dose on 12/24/19 at 2000, Until Discontinu ed, [facility] (OMNIPAQUE 350 BULK-100 mL) injection 100 mL 2019-03 22:43: 00 12-23 22:43 :00 No 100mL 100 mL, Intravenou s, ONCE, 1 dose, 12/24/19 at 1800, Routine [facility] niCARdipine (CARDENE I.V.) 40 mg in 200 mL 0.83% Sodium Chloride (RTU) infusion 2019-03 22:21: 12 12-24 13:03 :27 No 2.5mg/h 2.5-15 mg/hr (12.5-75 mL/hr), IV Infusion, TITRATE, SBP Goal < 180 mmHg, Starting 12/24/19 at 1721
In itiate infusion at 2.5 mg/hr.&nbs p; Ti trate by 2.5 mg/hr every 5 minutes to 15 minutes as needed to achieve and maintain goal blood pressure. Maximum dose = 15 mg/hr. If goal not maintained at maximum allowed dose, contact prescriber .
[facility] NaCl 0.9% (NS) 1000 mL + KCL 20 mEq 2019-03 21:30: 00 12-25 14:10 :24 No IV Infusion, at 75 mL/hr, CONTINUOUS , Starting 12/24/19 at 1630, Until 12/26/19 at 0910, Routine [facility] aspirin suppository 300 mg 2019-03 20:00: 00 12-23 19:41 :00 No 300mg 300 mg, Rectal, ONCE, 1 dose, 12/24/19 at 1500, GAVI [facility] LORazepam (ATIVAN) injection 0.5 mg 2019-03 18:30: 00 12-23 17:48 :00 No .5mg 0.5 mg, Slow IV Push, ONCE, 1 dose, 12/24/19 at 1330, GAVI [facility] ketorolac (TORADOL) injection 30 mg 2019-03 21:30: 00 12-15 20:29 :00 No [id number] 30mg [facility] meloxicam 7.5 mg tablet 2019-03 00:00: 00 01-02 00:00 :00 No [id number] 7.5mg Take 1 tablet by mouth daily. Ok to take 15mg daily (2 tablets) if 1 tablet does not help the pain. Take with food. [facility] metoprolol succinate XL 50 mg 24 hr tablet 12-12 00:00: 00 01-02 00:00 :00 No [id number] 50mg Take 1 tablet by mouth daily. [facility] simvastatin 40 mg tablet 12-12 00:00: 00 01-02 00:00 :00 No [id number] 40mg Take 1 tablet by mouth at bedtime. [facility] metoprolol succinate XL 50 mg 24 hr tablet 07-25 00:00: 00 12-12 00:00 :00 No [id number] 50mg Take 1 tablet by mouth daily. [facility] simvastatin 40 mg tablet 2018-03 00:00: 00 12-12 00:00 :00 No [id number] 40mg Take 1 tablet by mouth at bedtime. [facility] metoprolol succinate XL 100 mg 24 hr tablet 2018-03 00:00: 00 07-25 00:00 :00 No [id number] 07 100mg Take 1 tablet by mouth daily. [facility] NaCl 0.9% (NS) bolus infusion 1,000 mL 11-14 22:15: 00 11-14 22:30 :00 No 1000mL at 999 mL/hr, 1,000 mL, IV Infusion, ONCE, 1 dose, 11/14/18 at 1715, STAT [facility] Diclofenac Sodium (VOLTAREN) 1 % gel 10-01 00:00: 00 Yes [id number] 07 Take 2-4 grams three times a day as needed for pain [facility] Diclofenac Sodium (VOLTAREN) 1 % gel 07-22 00:00: 00 10-01 00:00 :00 No [id number] Take 2-4 grams three times a day as needed for pain [facility] metoprolol succinate XL 100 mg 24 hr tablet 07-13 00:00: 00 Yes [id number] 100mg Take 1 tablet by mouth daily. [facility] simvastatin 40 mg tablet 07-01 00:00: 00 Yes [id number] 40mg Take 1 tablet by mouth at bedtime. [facility] Diclofenac Sodium (VOLTAREN) 1 % gel 07-01 00:00: 07-22 00:00 :00 No [id number] Take 2-4 grams three times a day as needed for pain [facility] metoprolol succinate XL 50 mg 24 hr tablet 07-01 00:00: 00 07-13 00:00 :00 No [id number] 50mg Take 1 tablet by mouth daily. [facility] metoprolol succinate XL 50 mg 24 hr tablet 2017-03 00:00: 07-01 00:00 :00 No [id number] 07 50mg Take 1 tablet by mouth daily. [facility] simvastatin 40 mg tablet 2017-03 00:00: 07-01 00:00 :00 No [id number] 40mg Take 1 tablet by mouth at bedtime. [facility] aspirin 81 mg EC tablet 07-08 00:00: 00 01-02 00:00 :00 No 81mg Take 1 tablet by mouth daily. [facility] citalopram (CELEXA) 40 mg tablet 08-23 00:00: 01-02 00:00 :00 No 40mg Take 1 Tab by mouth daily. [facility] risperiDONE (RISPERDAL) 2 mg tablet 08-23 00:00: 01-02 00:00 :00 No 2mg Take 1 Tab by mouth every morning. [facility] No known medications No Un shane [facility] Vital Signs Vital Name Observation Time Observation Value Comments S ource Heart rate 2020-05-30 20:19:00 120 /min [facility] Respiratory rate 2020-05-30 20:19:00 24 /min [facility] Systolic blood pressure 2020-05-30 20:18:00 119 mm[Hg] [facility] Diastolic blood pressure 2020-05-30 20:18:00 88 mm[Hg] [facility] Body temperature 2020-05-30 20:18:00 36.78 Donna [facility] Oxygen saturation in Arterial blood by Pulse oximetry 2020-05-30 20:18:00 100 /min [facility] Systolic blood pressure 2020-03-27 19:47:00 128 mm[Hg] [facility] Diastolic blood pressure 2020-03-27 19:47:00 70 mm[Hg] [facility] Heart rate 2020-03-27 19:47:00 77 /min [facility] Body temperature 2020-03-27 19:47:00 36.44 Donna [facility] Respiratory rate 2020-03-27 19:47:00 14 /min [facility] Body height 2020-03-27 19:47:00 160 cm [facility] Systolic blood pressure 2020-03-05 16:06:00 106 mm[Hg] [facility] Diastolic blood pressure 2020-03-05 16:06:00 71 mm[Hg] [facility] Heart rate 2020-03-05 16:06:00 69 /min [facility] Body height 2020-03-05 16:06:00 160 cm [facility] Body weight 2020-03-05 16:06:00 51.71 kg came in transport bed - last weight [facility] BMI 2020-03-05 16:06:00 20.19 kg/m2 [facility] Oxygen saturation in Arterial blood by Pulse oximetry 2020-03-05 16:06:00 96 /min [facility] Systolic blood pressure 2020-02-06 17:33:00 139 mm[Hg] [facility] Diastolic blood pressure 2020-02-06 17:33:00 89 mm[Hg] [facility] Heart rate 2020-02-06 17:33:00 72 /min [facility] Body temperature 2020-02-06 17:33:00 36.67 Donna [facility] Respiratory rate 2020-02-06 17:33:00 18 /min [facility] Oxygen saturation in Arterial blood by Pulse oximetry 2020-02-06 17:33:00 100 /min [facility] Systolic blood pressure 2020-01-31 16:49:00 122 mm[Hg] [facility] Diastolic blood pressure 2020-01-31 16:49:00 75 mm[Hg] [facility] Heart rate 2020-01-31 16:49:00 84 /min [facility] Body temperature 2020-01-31 16:49:00 37 Donna [facility] Respiratory rate 2020-01-31 16:49:00 20 /min [facility] Body height 2020-01-31 16:49:00 160 cm [facility] Oxygen saturation in Arterial blood by Pulse oximetry 2020-01-31 16:49:00 98 /min [facility] Systolic blood pressure 2020-01-11 20:00:00 121 mm[Hg] [facility] Diastolic blood pressure 2020-01-11 20:00:00 58 mm[Hg] [facility] Heart rate 2020-01-11 20:00:00 88 /min [facility] Body temperature 2020-01-11 20:00:00 36.56 Donna [facility] Respiratory rate 2020-01-11 20:00:00 20 /min [facility] Oxygen saturation in Arterial blood by Pulse oximetry 2020-01-11 20:00:00 96 /min [facility] Body weight 2020-01-10 18:00:00 51.982 kg [facility] BMI 2020-01-10 18:00:00 20.30 kg/m2 [facility] Body height 2019-12-24 21:00:00 160 cm [facility] Body height 2019-12-13 18:42:00 167.6 cm [facility] Body weight 2019-12-13 18:42:00 51.438 kg [facility] BMI 2019-12-13 18:42:00 18.30 kg/m2 [facility] Oxygen saturation in Arterial blood by Pulse oximetry 2019-12-13 18:42:00 96 /min [facility] Systolic blood pressure 2019-12-13 18:42:00 130 mm[Hg] [facility] Diastolic blood pressure 2019-12-13 18:42:00 87 mm[Hg] [facility] Heart rate 2019-12-13 18:42:00 76 /min [facility] Respiratory rate 2019-12-13 18:42:00 19 /min [facility] Systolic blood pressure 2019-12-16 19:44:00 143 mm[Hg] [facility] Diastolic blood pressure 2019-12-16 19:44:00 89 mm[Hg] [facility] Heart rate 2019-12-16 19:42:00 85 /min [facility] Body temperature 2019-12-16 19:42:00 37.06 Donna [facility] Respiratory rate 2019-12-16 19:42:00 18 /min [facility] Body weight 2019-12-16 19:42:00 51.347 kg [facility] BMI 2019-12-16 19:42:00 18.27 kg/m2 [facility] Oxygen saturation in Arterial blood by Pulse oximetry 2019-12-16 19:42:00 96 /min [facility] Systolic blood pressure 2018-11-14 22:00:00 136 mm[Hg] [facility] Diastolic blood pressure 2018-11-14 22:00:00 76 mm[Hg] [facility] Heart rate 2018-11-14 22:00:00 65 /min [facility] Respiratory rate 2018-11-14 22:00:00 16 /min [facility] Oxygen saturation in Arterial blood by Pulse oximetry 2018-11-14 22:00:00 96 /min [facility] Body temperature 2018-11-14 20:57:00 37.67 Donna [facility] Body weight 2018-11-14 20:57:00 51.256 kg [facility] BMI 2018-11-14 20:57:00 18.24 kg/m2 [facility] Systolic blood pressure 2018-10-01 19:47:00 170 mm[Hg] [facility] Diastolic blood pressure 2018-10-01 19:47:00 111 mm[Hg] [facility] Body temperature 2018-10-01 19:43:00 36.17 Donna [facility] Respiratory rate 2018-10-01 19:43:00 18 /min [facility] Body weight 2018-10-01 19:43:00 51.619 kg [facility] BMI 2018-10-01 19:43:00 18.37 kg/m2 [facility] Systolic blood pressure 2018-07-01 17:51:00 159 mm[Hg] [facility] Diastolic blood pressure 2018-07-01 17:51:00 110 mm[Hg] [facility] Heart rate 2018-07-01 17:49:00 71 /min [facility] Body temperature 2018-07-01 17:49:00 36.39 Donna [facility] Respiratory rate 2018-07-01 17:49:00 18 /min [facility] Body height 2018-07-01 17:49:00 167.6 cm [facility] Body weight 2018-07-01 17:49:00 52.617 kg [facility] BMI 2018-07-01 17:49:00 18.72 kg/m2 [facility] Oxygen saturation in Arterial blood by Pulse oximetry 2018-07-01 17:49:00 99 /min [facility] Procedures Procedure Date / Time Performed Performing Clinician Source [facility] - OTHER 2020-07-19 05:01:00 Doctor Unassigned, Dorris [facility] - OTHER 2020-06-28 05:01:00 Doctor Unassigned, Dorris [facility] OTHER 2020-06-07 05:01:00 Doctor Unassigned, Dorris [facility] CONSENT/REFUSAL FOR DIAGNOSI S AND TREATMENT 2020-05-30 21:08:14 Doctor Unassigned, Dorris [facility] - OTHER 2020-05-17 06:01:00 Doctor Unassigned, Dorris [facility] 485 2020-05-11 06:01:00 Doctor Unassigned, Dorris [facility] - OTHER 2020-04-10 06:01:00 Doctor Unassigned, Dorris [facility] IR GASTRO TUBE CHANGE (WITH FLUORO) 2020-03-28 18:40:44 Alberto Marcial [facility] - OTHER 2020-03-01 06:01:00 Doctor Unassigned, Dorris [facility] - OTHER 2020-02-28 06:01:00 Doctor Unassigned, Dorris [facility] REFERRAL- REQUEST/RESPONSE 2020-02-24 06:01:00 Doctor Unassigned, Dorris [facility] DME/SUPPLY JUSTIFICATION 2020-02-23 06:01:00 Doctor Unassigned, Dorris [facility] INSURANCE CORRESPONDENCE 2020-02-21 06:01:00 Doctor Unassigned, Dorris [facility] PHYSICIAN CERTIFICATION STATEMENT 2020-02-16 06:01:00 Doctor Unassigned, Dorris [facility] HOME HEALTH - OTHER 2020-02-14 06:01:00 Doctor Unassigned, Dorris [facility] EXTERNAL PROVIDER RECORDS 2020-02-02 06:01:00 Doctor Unassigned, Dorris [facility] HOME HEALTH - OTHER 2020-01-31 06:01:00 Doctor Unassigned, Dorris [facility] PHYSICIAN CERTIFICATION STATEMENT 2020-01-30 06:01:00 Doctor Unassigned, Dorris [facility] PHYSICIAN CERTIFICATION STATEMENT 2020-01-19 06:01:00 Doctor Unassigned, Dorris [facility] CBC WITH DIFF 2020-01-11 08:28:00 [facility] CBC WITH DIFF 2020-01-10 08:12:00 [facility] HEPATIC FUNCTION PANEL ([id number]) (ALB,T.PRO,BILI T,BU/BC,ALT,AST,ALK PHOS) 2020-01-09 21:38:00 [facility] CT THORAX W CONTRAST 2020-01-09 20:54:33 [facility] WOUND CULTURE 2020-01-09 16:15:00 Ata [facility] BILATERAL VENOUS DUPLEX LOWE R EXTREMITY BY VASCULAR LAB 2020-01-09 14:33:05 Gurdeep Nevarez [facility] URINALYSIS 2020-01-09 14:07:00 [facility] BLOOD CULTURE SCREEN 2020-01-09 14:04:00 [facility] CBC WITH DIFF 2020-01-09 08:47:00 Ata [facility] CBC WITH DIFF 2020-01-08 06:05:00 Ata [facility] XR CHEST 1 VW 2020-01-07 14:55:00 Ata [facility] BASIC METABOLIC PANEL (NA, K , CL, CO2, GLUCOSE, BUN, CREATININE, CA) 2020-01-07 09:38:00 [facility] CBC WITHOUT DIFF 2020-01-07 09:38:00 [facility] URINALYSIS 2020-01-05 23:45:00 [facility] BASIC METABOLIC PANEL (NA, K , CL, CO2, GLUCOSE, BUN, CREATININE, CA) 2020-01-05 13:56:00 [facility] CBC WITHOUT DIFF 2020-01-05 13:56:00 [facility] FL MODIFIED BARIUM SWALLOW 2020-01-03 16:00:00 [facility] MAGNESIUM 2020-01-01 09:26:00 Ata [facility] BASIC METABOLIC PANEL (NA, K , CL, CO2, GLUCOSE, BUN, CREATININE, CA) 2020-01-01 09:26:00 Ata [facility] CBC WITH DIFF 2020-01-01 09:26:00 Ata [facility] MAGNESIUM 2019-12-31 09:11:00 Ata [facility] BASIC METABOLIC PANEL (NA, K , CL, CO2, GLUCOSE, BUN, CREATININE, CA) 2019-12-31 09:11:00 Ata [facility] CBC WITH DIFF 2019-12-31 09:11:00 Ata [facility] IR G-TUBE PLACEMENT PERCUTANEOUS 2019-12-31 00:10:55 Ata [facility] XR CHEST 1 VW 2019-12-30 12:07:29 Jason Bloom [facility] EKG-12 LEAD 2019-12-30 08:41:42 Leland Richards [facility] MAGNESIUM 2019-12-30 08:24:00 Ata [facility] BASIC METABOLIC PANEL (NA, K , CL, CO2, GLUCOSE, BUN, CREATININE, CA) 2019-12-30 08:24:00 Ata [facility] CBC WITH DIFF 2019-12-30 08:24:00 Ata, [facility] XR KUB 2019-12-29 20:29:00 [facility] ECHO ROUTINE W/DOPPLER COLOR 2019-12-29 19:46:13 Ata [facility] XR CHEST 1 VW 2019-12-29 17:10:37 corin [facility] EKG-12 LEAD 2019-12-29 16:53:21 [facility] AC PANEL 20 + LACTIC ACID 2019-12-29 16:51:00 [facility] POCT GLUCOSE (AUTOMATED) 2019-12-29 16:37:00 [facility] MAGNESIUM 2019-12-29 09:38:[facility] BASIC METABOLIC PANEL (NA, K , CL, CO2, GLUCOSE, BUN, CREATININE, CA) 2019-12-29 09:38:00 corin [facility] CBC WITH DIFF 2019-12-29 09:38:00 [facility] ECHO ROUTINE W/DOPPLER COLOR 2019-12-28 15:32:46 [facility] CBC WITH DIFF 2019-12-28 08:19:00 corin [facility] MAGNESIUM 2019-12-28 07:37:00 [facility] BASIC METABOLIC PANEL (NA, K , CL, CO2, GLUCOSE, BUN, CREATININE, CA) 2019-12-28 07:37:00 [facility] PROTHROMBIN TIME / INR 2019-12-28 07:37:00 [facility] N-TERMINAL PRO-BNP 2019-12-28 07:37:00 [facility] EKG-12 LEAD 2019-12-27 15:01:38 [facility] MAGNESIUM 2019-12-27 08:29:00 Ata [facility] BASIC METABOLIC PANEL (NA, K , CL, CO2, GLUCOSE, BUN, CREATININE, CA) 2019-12-27 08:29:00 Merle [facility] CBC WITH DIFF 2019-12-27 08:29:00 Merle [facility] ELECTROENCEPHALOGRAM 2019-12-27 00:00:00 Ata [facility] XR KUB 2019-12-26 21:35:00 Ata [facility] ECHO ROUTINE W/DOPPLER COLOR 2019-12-26 20:25:50 [facility] MR BRAIN WO CONTRAST 2019-12-26 16:45:00 [facility] EKG-12 LEAD 2019-12-26 12:44:21 Leland Richards [facility] TROPONIN I 2019-12-26 09:05:00 Ata [facility] BASIC METABOLIC PANEL (NA, K , CL, CO2, GLUCOSE, BUN, CREATININE, CA) 2019-12-26 09:05:00 Merle [facility] CBC WITH DIFF 2019-12-26 09:05:00 Merle [facility] XR KUB 2019-12-26 06:06:27 Merle [facility] BLOOD CULTURE SCREEN 2019-12-25 08:26:00 [facility] BLOOD CULTURE SCREEN 2019-12-25 08:06:00 [facility] BASIC METABOLIC PANEL (NA, K , CL, CO2, GLUCOSE, BUN, CREATININE, CA) 2019-12-25 08:06:00 [facility] CBC WITHOUT DIFF 2019-12-25 08:06:00 [facility] EKG-12 LEAD 2019-12-25 07:49:35 Reinaldo Cast [facility] XR ABDOMEN 1 VW 2019-12-25 02:38:00 [facility] CT ANGIOGRAM HEAD 2019-12-24 22:57:09 [facility] CT ANGIOGRAM NECK 2019-12-24 22:57:09 [facility] EKG-12 LEAD 2019-12-24 22:15:34 Vinay [facility] MRSA / MSSA SCREEN BY PCR, ADELA 2019-12-24 21:53:00 [facility] COVID-19 (ID NOW RAPID TESTING) 2019-12-24 18:53[facility] 2019-12-24 18:27[facility] VW 2019-12-24 18:27:05 Vinay [facility] URINALYSIS 2019-12-24 17:43:00 Vinay [facility] ADC / LCC - DRUG SCREEN TRIAGE 2019-12-24 17:42:00 Vinay [facility] MAGNESIUM 2019-12-24 17:41:00 Vinay [facility] TROPONIN I 2019-12-24 17:41:00 Vinay [facility] FREE T4 2019-12-24 17:41:00 Vinay [facility] THYROID STIMULATING HORMONE 2019-12-24 17:41:00 Vinay [facility] HEPATIC FUNCTION PANEL ([id number]) (ALB,T.PRO,BILI T,BU/BC,ALT,AST,ALK PHOS) 2019-12-24 17:41:00 Vinay [facility] BASIC METABOLIC PANEL (NA, K , CL, CO2, GLUCOSE, BUN, CREATININE, CA) 2019-12-24 17:41:00 Vinay [facility] LIPID PANEL ([id number])(TOTAL CHOLESTEROL, TRIGLYCERIDES, HDL) 2019-12-24 17:41:00 [facility] SALICYLATE 2019-12-24 17:41:00 Vinay [facility] ETHANOL 2019-12-24 17:41:00 Vinay [facility] CBC WITH DIFF 2019-12-24 17:41:00 Vinay [facility] GLYCOSYLATED HEMOGLOBIN (A1C) 2019-12-24 17:41:00 Pedro Pablo Newsome [facility] PROTHROMBIN TIME / INR 2019-12-24 17:41:00 Ang Mclean [facility] ACTIVATED PARTIAL THRMPLAS SAMARIA 2019-12-24 17:41:00 Ang Mclean [facility] FREE T3 2019-12-24 17:41:00 Ang Mclean [facility] AC PANEL 21 + LACTIC ACID 2019-12-24 17:40:00 Ang Mclean [facility] EKG-12 LEAD 2019-12-24 17:22:27 Ang Mclean [facility] EKG-12 LEAD 2019-12-24 17:21:35 Ang Mclean [facility] EMERGENCY DEPARTMENT DOCUMENTS 2019-12-24 05:01:00 Doctor Unassigned, Dorris [facility] EMERGENCY SERVICES AGREEMENT S AND AUTHORIZATIONS 2019-12-24 05:01:00 Doctor Unassigned, Dorris [facility] HOSPITAL ADMISSION 2019-12-24 05:01:00 Doctor Unassigned, Dorris [facility] EKG-12 LEAD 2019-12-13 18:42:43 Daya Love [facility] CONSENT/REFUSAL FOR DIAGNOSI S AND TREATMENT 2019-12-13 18:10:16 Doctor Unassigned, Dorris [facility] XR CHEST 1 VW 2018-11-14 21:58:13 Munir Chadwick [facility] CT HEAD WO CONTRAST 2018-11-14 21:47:52 Munir Chadwick [facility] THYROID STIMULATING HORMONE 2018-11-14 21:23:00 Munir Chadwick [facility] COMP. METABOLIC PANEL ([id number]) 2018-11-14 21:23:00 Munir Chadwick [facility] ACETAMINOPHEN 2018-11-14 21:23:00 Munir Chadwick [facility] ETHANOL 2018-11-14 21:23:00 Munir Chadwick [facility] CBC WITH DIFFERENTIAL 2018-11-14 21:23:00 Munir Chadwick [facility] URINALYSIS 2018-11-14 21:23:00 Munir Chadwick [facility] ADC / LCC - DRUG SCREEN TRIAGE 2018-11-14 21:23:00 Munir Chadwick [facility] EKG-12 LEAD 2018-11-14 21:13:40 Munir Chadwick [facility] HEPATITIS B SURFACE ANTIBODY 2018-10-01 21:07:00 Bev Chauhan [facility] HEPATITIS B SURFACE ANTIGEN 2018-10-01 21:07:00 Bev Chauhan [facility] HCV ANTIBODY 2018-10-01 21:07:00 Bev Chauhan [facility] HEPATITIS B CORE ANTIBODY IGM 2018-10-01 21:07:00 Bev Chauhan [facility] GC & CHLAMYDIA AMPLIFIED ASSAY 2018-10-01 21:07:00 Bev Chauhan [facility] HCV BY PCR 2018-10-01 21:07:00 Bev Chauhan [facility] HBV BY REAL-TIME PCR 2018-10-01 21:07:00 Bev Chauhan [facility] ADC OR LIV ONLY - RPR 2018-10-01 21:07:00 Bev Chauhan [facility] HIV 1/2 AG-AB WITH REFLEX 2018-10-01 21:07:00 Bev Chauhan [facility] VITAMIN B6, PLASMA 2018-10-01 19:03:00 Bev Chauhan [facility] VITAMIN B12, LEVEL 2018-10-01 19:03:00 Bev Chauhan [facility] FOLATE 2018-10-01 19:03:00 Bev Chauhan [facility] CBC WITH DIFFERENTIAL 2018-10-01 19:03:00 eBv Chauhan [facility] HIGH SENSITIVITY CRP 2018-10-01 19:03:00 Bev Chauhan [facility] HOMOCYSTEINE 2018-10-01 19:03:00 Bev Chauhan [facility] VITAMIN D, 25-OH 2018-10-01 19:03:00 Bev Chauhan [facility] VITAMIN B1 (THIAMINE), WHOLE BLOOD 2018-10-01 19:03:00 Bev Chauhan [facility] NM MYOCARDIUM PERFUSION 2014-04-13 18:30:00 Ivette Sparks [facility] Encounters Start Date/Time End Date/Time Encounter Type Admission Type Attending Clinicians Care Facility Care Department Encounter ID Source 2022-12-19 14:40:56 Emergency HFD HFD [id number] [facility] ent 2021-01-13 06:44:16 Emergency [facility] [id number] [facility] 2021-01-11 22:13:22 Emergency [facility] [id number] [facility] 2020-04-23 00:00:00 2024-07-07 21:49:49 Letter (Out) Clinic-[facility] , Heart [facility] , Heart [facility] ([facility]) 1..114 350.1.13.10 4.2.7.2.686 [id number] [facility] 2014-04-13 00:00:00 2024-04-30 04:32:26 Orders Only Doctor Unassigned, Dorris Doctor Unassigned, Dorris [facility] ([facility]) 1..114 350.1.13.10 4.2.7.2.686 [id number] [id number] [facility] 2022-11-30 19:40:00 2022-12-02 17:14:00 Inpatient Tre Jamil [facility] [id number] [facility] 2021-02-27 00:00:00 2021-02-27 00:00:00 Case Management Jazz Larkin 1..114 350.1.13.10 4.2.7.2.686 [id number] [id number] [facility] 2020-11-20 00:00:00 2020-11-20 00:00:00 Patient Secure Msg Doctor Unassigned, Dorris YANELI VERDUZCO 1..114 350.1.13.10 4.2.7.2.686 [id number] 086 [id number] [facility] 2020-11-20 00:00:00 2020-11-20 00:00:00 Telephone Tanna Ward 1..840.114 350.1.13.10 4.2.7.2.686 [id number] [facility] 2020-10-15 00:00:00 2020-10-15 00:00:00 Telephone DevonteIndira [facility] Azar Medina 1.840.114 350.1.13.10 4.2.7.2.686 [id number] [facility] 2020-10-09 09:00:00 2020-10-09 09:00:00 Outpatient SONIA ROMERO [facility] [id number] [facility] 2020-09-03 00:00:00 2020-09-03 00:00:00 Outpatient LEANNE JACOBSEN [facility] [id number] [facility] 2020-08-28 13:00:00 2020-08-28 13:00:00 Outpatient RUDY HARRIS [facility] [id number] [facility] 2020-08-28 07:49:14 2020-08-28 08:19:14 Telemedici ne Visit Rudy King [facility] .840.114 350.1.13.10 4.2.7.2.686 [id number] [id number] [facility] 2020-08-08 09:40:00 2020-08-08 09:40:00 Outpatient MAN HANNA [facility] [id number] [facility] 2020-08-01 00:00:00 2020-08-01 00:00:00 Outpatient ALBERTO ANDREW [facility] [id number] [facility] 2020-07-19 00:00:00 2020-07-19 00:00:00 Telephone RadhaMan [facility] 1.2840.114 350.1.13.10 4.2.7.2.686 [id number] [id number] [facility] 2020-07-19 00:00:00 2020-07-19 00:00:00 Orders Only Doctor Unassigned, Dorris [facility] 1.2840.114 350.1.13.10 4.2.7.2.686 [id number] [id number] [facility] 2020-07-09 00:00:00 2020-07-09 00:00:00 Patient Secure Msg Doctor Unassigned, Dorris [facility] 1.20.114 350.1.13.10 4.2.7.2.686 [id number] [id number] [facility] 2020-07-04 14:40:00 2020-07-04 14:40:00 Outpatient R DAYA LOVE [facility] [id number] [facility] 2020-07-04 07:53:28 2020-07-04 12:03:51 Office Visit Man Giron [facility] 1.20.114 350.1.13.10 4.2.7.2.686 [id number] 044 [id number] [facility] 2020-06-28 00:00:00 2020-06-28 00:00:00 Orders Only Doctor Unassigned, Dorris [facility] 1.2840.114 350.1.13.10 4.2.7.2.686 [id number] [id number] [facility] 2020-06-22 00:00:00 2020-06-22 00:00:00 Telephone Bev Chauhan [facility] 1.2840.114 350.1.13.10 4.2.7.2.686 [id number] 2020-06-22 00:00:00 2020-06-22 00:00:00 Telephone Gissel [facility] 1.2.840.114 350.1.13.10 4.2.7.2.686 [id number] 231 [id number] [facility] 2020-06-19 00:00:00 2020-06-19 00:00:00 Telephone Gissel Bev A [facility] 1.2.840.114 350.1.13.10 4.2.7.2.686 [id number] 231 [id number] [facility] 2020-06-19 00:00:00 2020-06-19 00:00:00 Telephone Gissel Bev Mederos [facility] 1.2.840.114 350.1.13.10 4.2.7.2.686 [id number] 2020-06-11 14:20:00 2020-06-11 14:20:00 Outpatient R DAYA LOVE [facility] [id number] [facility] 2020-06-07 14:00:00 2020-06-07 14:00:00 Outpatient LUCIANO OROZCO [facility] [id number] [facility] 2020-06-07 00:00:00 2020-06-07 00:00:00 Orders Only Doctor Unassigned, Dorris [facility] 1.2.840.114 350.1.13.10 4.2.7.2.686 [id number] [id number] [facility] 2020-06-05 11:20:00 2020-06-05 11:20:00 Outpatient MAN HANNA [facility] [id number] [facility] 2020-06-05 00:00:00 2020-06-05 00:00:00 Telephone Man Giron [facility] 1.2.840.114 350.1.13.10 4.2.7.2.686 [id number] 044 [id number] [facility] 2020-06-05 00:00:00 2020-06-05 00:00:00 Telephone Man Giron [facility] Building 1.2.840.114 350.1.13.10 4.2.7.2.686 [id number] 044 [id number] [facility] 2020-06-04 00:00:00 2020-06-04 00:00:00 Patient Outreach Nikki Blount Zeke [facility] 1.2.840.114 350.1.13.10 4.2.7.2.686 [id number] 231 [id number] [facility] 2020-06-04 00:00:00 2020-06-04 00:00:00 Patient Outreach Nikki Blount Zeke [facility] 1.2.840.114 350.1.13.10 4.2.7.2.686 [id number] 2020-05-31 00:00:00 2020-05-31 00:00:00 Telephone Bev Chauhan [facility] 1.2.840.114 350.1.13.10 4.2.7.2.686 [id number] 044 [id number] [facility] 2020-05-30 15:05:50 2020-05-30 16:14:27 Office Visit Marta Alston [facility] 1.2.840.114 350.1.13.10 4.2.7.2.686 [id number] 044 [id number] [facility] 2020-05-30 15:30:00 2020-05-30 15:30:00 Outpatient R MARTA ALSTON [facility] [id number] [facility] 2020-05-30 00:00:00 2020-05-30 00:00:00 Telephone Bev Chauhan [facility] Building 1.2.840.114 350.1.13.10 4.2.7.2.686 [id number] 044 [id number] [facility] 2020-05-30 00:00:00 2020-05-30 00:00:00 Orders Only Doctor Unassigned, Dorris [facility] 1.2.840.114 350.1.13.10 4.2.7.2.686 [id number] [id number] [facility] 2020-05-28 00:00:00 2020-05-28 00:00:00 Telephone Bev Chauhan Gatito [facility] 1.2.840.114 350.1.13.10 4.2.7.2.686 [id number] 044 [id number] [facility] 2020-05-26 00:00:00 2020-05-26 00:00:00 Patient Outreach Otis Cook [facility] 1.2.840.114 350.1.13.10 4.2.7.2.686 [id number] [facility] 2020-05-18 00:00:00 2020-05-18 00:00:00 Telephone Bev Chauhan [facility] 1.2.840.114 350.1.13.10 4.2.7.2.686 [id number] 231 [id number] [facility] 2020-05-17 00:00:00 2020-05-17 00:00:00 Telephone Bev Chauhan [facility] Building 1.2.840.114 350.1.13.10 4.2.7.2.686 [id number] [facility] 2020-05-17 00:00:00 2020-05-17 00:00:00 Orders Only Doctor Unassigned, Dorris [facility] 1.2840.114 350.1.13.10 4.2.7.2.686 [id number] [id number] [facility] 2020-05-13 00:00:00 2020-05-13 00:00:00 Nurse Triage RogelioKatiana [facility] 1.20.114 350.1.13.10 4.2.7.2.686 [id number] 019 [id number] [facility] 2020-05-11 08:42:39 2020-05-11 16:05:01 Telemedici ne Visit Man Giron [facility] 1..114 350.1.13.10 4.2.7.2.686 [id number] 044 [id number] [facility] 2020-05-11 08:40:00 2020-05-11 08:40:00 Outpatient R MAN GIRON [facility] [id number] [facility] 2020-05-11 00:00:00 2020-05-11 00:00:00 Patient Outreach Nikki Blount [facility] 1.84.114 350.1.13.10 4.2.7.2.686 [id number] 044 [id number] [facility] 2020-05-11 00:00:00 2020-05-11 00:00:00 Orders Only Doctor Unassigned, Dorris [facility] 1..114 350.1.13.10 4.2.7.2.686 [id number] [id number] [facility] 2020-05-04 00:00:00 2020-05-04 00:00:00 Telephone Bev Chauhan [facility] 1.2.840.114 350.1.13.10 4.2.7.2.686 [id number] 044 [id number] [facility] 2020-05-02 00:00:00 2020-05-02 00:00:00 Patient Outreach Nikki Blount [facility] 1.2.840.114 350.1.13.10 4.2.7.2.686 [id number] 231 [id number] [facility] 2020-04-25 00:00:00 2020-04-25 00:00:00 Telephone Bev Chauhan [facility] 1.2.840.114 350.1.13.10 4.2.7.2.686 [id number] [facility] 2020-04-10 00:00:00 2020-04-10 00:00:00 Orders Only Doctor Unassigned, Dorris [facility] 1.2840.114 350.1.13.10 4.2.7.2.686 [id number] 009 [id number] [facility] 2020-04-06 14:30:00 2020-04-06 14:30:00 Outpatient JOHNATHON SHEA [facility] [id number] [facility] 2020-04-05 00:00:00 2020-04-05 00:00:00 Telephone Bev Chauhan [facility] 1.2.840.114 350.1.13.10 4.2.7.2.686 [id number] 231 [id number] [facility] 2020-04-04 00:00:00 2020-04-04 00:00:00 Telephone Bev Chauhan [facility] 1.2.840.114 350.1.13.10 4.2.7.2.686 [id number] 231 [id number] [facility] 2020-04-04 00:00:00 2020-04-04 00:00:00 Patient Outreach Nikki Blount [facility] Building 1.2.840.114 350.1.13.10 4.2.7.2.686 [id number] [facility] 2020-03-29 00:00:00 2020-03-29 00:00:00 Telephone Bev Chauhan [facility] 1.2.840.114 350.1.13.10 4.2.7.2.686 [id number] 231 [id number] [facility] 2020-03-29 00:00:00 2020-03-29 00:00:00 Telephone Bev Chauhan [facility] 1.2.840.114 350.1.13.10 4.2.7.2.686 [id number] 231 [id number] [facility] 2020-03-28 11:00:00 2020-03-28 23:59:00 Hospital Encounter Alberto Marcial [facility] 1..840.114 350.1.13.10 4.2.7.2.686 [id number] [facility] 2020-03-28 00:00:00 2020-03-28 00:00:00 Outpatient ALBERTO ANDREW [facility] [id number] [facility] 2020-03-27 13:41:44 2020-03-27 15:37:27 Office Visit Rudy King [facility] 1..840.114 350.1.13.10 4.2.7.2.686 [id number] 092 [id number] [facility] 2020-03-27 13:00:00 2020-03-27 13:00:00 Outpatient RUDY HARRIS [facility] [id number] [facility] 2020-03-27 00:00:00 2020-03-27 00:00:00 Telephone [facility]ev [facility]au[facility] 1.2.840.114 350.1.13.10 4.2.7.2.686 [id number] 231 [id number] [facility] 2020-03-27 00:00:00 2020-03-27 00:00:00 Telephone Bev Chauhan [facility] 1.2.840.114 350.1.13.10 4.2.7.2.686 [id number] 231 [id number] [facility] 2020-03-27 00:00:00 2020-03-27 00:00:00 Patient Secure Msg Doctor Unassigned, Dorris [facility] 1.2.840.114 350.1.13.10 4.2.7.2.686 [id number] [facility] 2020-03-23 00:00:00 2020-03-23 00:00:00 Telephone Bev Chauhan [facility] 1.2.840.114 350.1.13.10 4.2.7.2.686 [id number] 231 [id number] [facility] 2020-03-21 00:00:00 2020-03-21 00:00:00 Telephone Bev Chauhan [facility] 1.2.840.114 350.1.13.10 4.2.7.2.686 [id number] 044 [id number] [facility] 2020-03-13 00:00:00 2020-03-13 00:00:00 Telephone Bev Chauhan [facility] 1.2.840.114 350.1.13.10 4.2.7.2.686 [id number] 231 [id number] [facility] 2020-03-13 00:00:00 2020-03-13 00:00:00 Telephone Bev Chauhan [facility] 1.84.114 350.1.13.10 4.2.7.2.686 [id number] [id number] [facility] 2020-03-07 00:00:00 2020-03-07 00:00:00 Telephone Bev Chauhan [facility] 1.84.114 350.1.13.10 4.2.7.2.686 [id number] [facility] 2020 11:00:00 2020 11:00:00 Outpatient R JORJE EDDY [facility] [id number] [facility] 2020-03-05 09:37:34 2020-03-05 09:52:34 Office Visit Hossein Vilchis [facility] 1..114 350.1.13.10 4.2.7.2.686 [id number] [facility] 2020-03-05 09:00:00 2020-03-05 09:00:00 Outpatient R HOSSEIN VILCHIS [facility] [id number] [facility] 2020-03-05 00:00:00 2020-03-05 00:00:00 Telephone Bev Chauhan [facility] 1.84.114 350.1.13.10 4.2.7.2.686 [id number] [facility] 2020-03-05 00:00:00 2020-03-05 00:00:00 Telephone Rudy King [facility] 1.84.114 350.1.13.10 4.2.7.2.686 [id number] [facility] 2020-03-02 15:30:00 2020-03-02 15:30:00 Outpatient HOSSEIN FONTANA [facility] [id number] [facility] 2020-03-01 00:00:00 2020-03-01 00:00:00 Orders Only Doctor Unassigned, Dorris [facility] 1.2840.114 350.1.13.10 4.2.7.2.686 [id number] [id number] [facility] 2020-02-28 00:00:00 2020-02-28 00:00:00 Orders Only Doctor Unassigned, Dorris [facility] 1.2840.114 350.1.13.10 4.2.7.2.686 [id number] [id number] [facility] 2020-02-24 13:45:00 2020-02-24 13:45:00 Outpatient DEVON FONTANAENNA [facility] [id number] [facility] 2020-02-24 00:00:00 2020-02-24 00:00:00 Orders Only Doctor Unassigned, Dorris [facility] 1.2840.114 350.1.13.10 4.2.7.2.686 [id number] [id number] [facility] 2020-02-23 00:00:00 2020-02-23 00:00:00 Telephone Bev Chauhan [facility] 1.2.114 350.1.13.10 4.2.7.2.686 [id number] [facility] 2020-02-23 00:00:00 2020-02-23 00:00:00 Orders Only Doctor Unassigned, Dorris [facility] 1.2840.114 350.1.13.10 4.2.7.2.686 [id number] 009 [id number] [facility] 2020-02-21 00:00:00 2020-02-21 00:00:00 Orders Only Doctor Unassigned, Dorris [facility] 1.2.840.114 350.1.13.10 4.2.7.2.686 [id number] 009 [id number] [facility] 2020-02-17 13:30:00 2020-02-17 13:30:00 Outpatient R HOSSEIN VILCHIS [facility] [id number] [facility] 2020-02-17 00:00:00 2020-02-17 00:00:00 Telephone Bev Chauhan [facility] Office Building One 1.114 350.1.13.10 4.2.7.2.686 [id number] 044 [id number] [facility] 2020-02-17 00:00:00 2020-02-17 00:00:00 Patient Secure Msg Doctor Unassigned, Dorris [facility] 1.114 350.1.13.10 4.2.7.2.686 [id number] 059 [id number] [facility] 2020-02-16 00:00:00 2020-02-16 00:00:00 Orders Only Doctor Unassigned, Dorris [facility] 1.0.114 350.1.13.10 4.2.7.2.686 [id number] 009 [id number] [facility] 2020-02-14 00:00:00 2020-02-14 00:00:00 Patient Outreach Nikki Blount [facility] Building 1..114 350.1.13.10 4.2.7.2.686 [id number] [facility] 2020-02-14 00:00:00 2020-02-14 00:00:00 Orders Only Doctor Unassigned, Dorris [facility] 1.20.114 350.1.13.10 4.2.7.2.686 [id number] [id number] [facility] 2020-02-13 00:00:00 2020-02-13 00:00:00 Telephone Bev Chauhan [facility] 1.2.840.114 350.1.13.10 4.2.7.2.686 [id number] [facility] 2020-02-11 00:00:00 2020-02-11 00:00:00 Telephone Bev Chauhan [facility] 1.2.840.114 350.1.13.10 4.2.7.2.686 [id number] 231 [id number] [facility] 2020-02-10 00:00:00 2020-02-10 00:00:00 Nurse Triage Keisha Lockett [facility] 1.2.840.114 350.1.13.10 4.2.7.2.686 [id number] [facility] 2020-02-08 00:00:00 2020-02-08 00:00:00 Telephone Bev Chauhan [facility] 1.2.840.114 350.1.13.10 4.2.7.2.686 [id number] 231 [id number] [facility] 2020-02-07 00:00:00 2020-02-07 00:00:00 Patient Outreach Nikki Blount [facility] 1.2.840.114 350.1.13.10 4.2.7.2.686 [id number] 231 [id number] [facility] 2020-02-06 11:08:32 2020-02-06 12:47:15 Office Visit Bev Chauhan [facility] 1.2.840.114 350.1.13.10 4.2.7.2.686 [id number] [facility] 2020-02-06 11:20:00 2020-02-06 11:20:00 Outpatient R BEV CHAUHAN [facility] [id number] [facility] 2020-02-06 00:00:00 2020-02-06 00:00:00 Patient Outreach Funmilayo Dubose 1.2.114 350.1.13.10 4.2.7.2.686 [id number] [facility] 2020-02-02 00:00:00 2020-02-02 00:00:00 Orders Only Doctor Unassigned, Dorris [facility] 1.20.114 350.1.13.10 4.2.7.2.686 [id number] [id number] [facility] 2020-02-01 00:00:00 2020-02-01 00:00:00 Telephone Rudy King [facility] Medical Office Building 1.2114 350.1.13.10 4.2.7.2.686 [id number] 092 [id number] [facility] 2020-01-31 09:59:32 2020-01-31 11:21:18 Office Visit Dorene Hart [facility] Building 1.2114 350.1.13.10 4.2.7.2.686 [id number] [facility] 2020-01-31 10:15:00 2020-01-31 10:15:00 Outpatient R DORENE HART [facility] [id number] [facility] 2020-01-23 00:00:00 2020-01-23 00:00:00 Patient Outreach Jose Alejandro Nikki Zeke [facility] Building 1.2.114 350.1.13.10 4.2.7.2.686 [id number] [facility] 2020-01-19 00:00:00 2020-01-19 00:00:00 Orders Only Doctor Unassigned, Dorris [facility] 1.2.114 350.1.13.10 4.2.7.2.686 [id number] [facility] 2020-01-18 00:00:00 2020-01-18 00:00:00 Telephone Rudy King [facility] 1.2.840.114 350.1.13.10 4.2.7.2.686 [id number] [facility] 2020-01-16 00:00:00 2020-01-16 00:00:00 Patient Outreach Funmilayo Dubose 1.2.840.114 350.1.13.10 4.2.7.2.686 [id number] [facility] 2020-01-13 00:00:00 2020-01-13 00:00:00 Patient Outreach Funmilayo Dubose 1.2.840.114 350.1.13.10 4.2.7.2.686 [id number] [facility] 2020-01-13 00:00:00 2020-01-13 00:00:00 Telephone Bev Chauhan [facility] 1.2.840.114 350.1.13.10 4.2.7.2.686 [id number] 231 [id number] [facility] 2020-01-12 00:00:00 2020-01-12 00:00:00 Patient Outreach Funmilayo Dubose 1.2.840.114 350.1.13.10 4.2.7.2.686 [id number] [facility] 2020-01-12 00:00:00 2020-01-12 00:00:00 Patient Outreach Nikki Blount [facility] 1.2.840.114 350.1.13.10 4.2.7.2.686 [id number] 231 [id number] [facility] 2020-01-12 00:00:00 2020-01-12 00:00:00 Transition of Care Karolyn Melinda Verduzco 1.20.114 350.1.13.10 4.2.7.2.686 [id number] 403 [id number] [facility] 2019-12-24 12:17:00 2020-01-11 18:29:00 [facility] 1.2840.114 350.1.13.10 4.2.7.2.686 [id number] [facility] 2020-01-10 00:00:00 2020-01-10 00:00:00 Telephone Bev Chauhan [facility] 1.114 350.1.13.10 4.2.7.2.686 [id number] 231 [id number] [facility] 2020-01-06 11:15:00 2020-01-06 11:15:00 Outpatient R YOSHI, DORENE [facility] [id number] [facility] 2019-12-27 14:00:00 2019-12-27 14:00:00 Outpatient R [facility] [id number] [facility] 2019-12-27 13:00:00 2019-12-27 13:00:00 Outpatient R JUSTINE PORTER [facility] [id number] [facility] 2019-12-13 13:10:32 2019-12-20 08:23:59 Office Visit Daya Love [facility] Building 1..114 350.1.13.10 4.2.7.2.686 [id number] [facility] 2019-12-19 16:12:39 2019-12-19 16:12:49 Appointmen titus Amador, [facility] Room 1 - [facility] 1.84.114 350.1.13.10 4.2.7.2.686 [id number] [facility] 2019-12-19 15:00:00 2019-12-19 15:00:00 Outpatient R PRESTON CORTES [facility] [id number] [facility] 2019-12-19 13:21:22 2019-12-19 14:21:22 Audio/Video Technician Visit Pc, Adc Vascular Room 1 - Preston Cortes [facility] 1.2.840.114 350.1.13.10 4.2.7.2.686 [id number] [facility] 2019-12-16 14:31:09 2019-12-16 15:36:14 Office Visit Bev Chauhan [facility] 1..840.114 350.1.13.10 4.2.7.2.686 [id number] [facility] 2019-12-16 14:40:00 2019-12-16 14:40:00 Outpatient R BEV CHAUHAN [facility] [id number] [facility] 2019-12-13 13:20:00 2019-12-13 13:20:00 Outpatient R DAYA LOVE [facility] [id number] [facility] 2019-12-13 00:00:00 2019-12-13 00:00:00 Orders Only Doctor Unassigned, Dorris [facility] 1.2.840.114 350.1.13.10 4.2.7.2.686 [id number] [facility] 2019-10-06 08:15:00 2019-10-06 08:15:00 Outpatient R DORENE HART [facility] [id number] [facility] 2019-08-02 13:40:00 2019-08-02 13:40:00 Outpatient R BEV CHAUHAN [facility] [id number] [facility] 2019-07-26 14:00:00 2019-07-26 14:00:00 Outpatient R DAYA LOVE [facility] [id number] [facility] 2019-07-26 08:22:33 2019-07-26 08:42:33 [facility]ici [facility] [id number] [id number] [id number] [facility] 2019-06-03 08:40:00 2019-06-03 08:40:00 Outpatient R CHAUHAN, BEV [facility] [id number] [facility] 2018-11-14 15:51:03 2018-11-14 17:57:00 Emergency Munir Chadwick [facility] 1.2.840.114 350.1.13.10 4.2.7.2.686 [id number] [facility] 2018-10-01 14:32:59 2018-10-18 13:22:59 Office Visit ChauhanKvng branpeter [facility] 1.2.840.114 [id number] 4.2.7.2.686 [id number] [facility] 2018-07-01 12:13:07 2018-10-12 10:13:29 Office Visit Bev Chauhan G[place] 1.2.840.114 350.1.13.10 4.2.7.2.686 [id number] [facility] 2018-10-07 00:00:00 2018-10-07 00:00:00 Telephone GisselRyannBev Gatito [facility] Building [id number] [id number] [id number] [id number] [facility] Results Test Description Test Time Test Comments Results Result Co mments Source CBC W/AUTO [id number] 07:04:00* Test Item Value Reference Range Interpretation Comme nts WHITE BLOOD CELL (test code = WBC) 8.9 K/MM3 3.8-9.8 N RED BLOOD CELL (test code = RBC) 4.65 M/MM3 3.58-4.97 N HEMOGLOBIN (test code = HGB) 13.5 G/DL 11.2-14.9 N HEMATOCRIT (test code = HCT) 41.2 % 33.2-43.5 MEAN CELL VOLUME (test code = MCV) 89 fL 80.7-99.1 N MEAN CELL HGB (test code = MCH) 29.0 pg 27.0-34.1 N MEAN CELL HGB CONCETRATION (test code = MCHC) 32.8 % 32.2-35.7 N RED CELL DISTRIBUTION WIDTH (test code = RDW) 13.2 % 12.1-15.2 N PLATELET COUNT (test code = PLT) 191 K/MM3 129-368 MEAN PLATELET VOLUME (test c ode = MPV) 11.3 fl 7.4-10.4 H NEUTROPHIL % (test code = NT%) 51.9 % 43-75 N IMMATURE GRANULOCYTE % (test code = IG%) 0.3 % 0.0-2.0 N LYMPHOCYTE % (test code = LY%) 33.7 % 14-44 N MONOCYTE % (test code = MO%) 7.7 % 4-13 N EOSINOPHIL % (test code = EO%) 5.8 % 0-6 N BASOPHIL % (test code = BA%) 0.6 % 0-2 N NUCLEATED RBC % (test code = NRBC%) 0.0 % 0-1.0 N NEUTROPHIL # (test code = NT#) 4.60 K/mm3 2.0-7.6 N IMMATURE GRANULOCYTE # (test code = IG#) 0.03 x10 3/uL 0-0.03 N LYMPHOCYTE # (test code = LY#) 2.98 K/mm3 1.0-3.8 N MONOCYTE # (test code = MO#) 0.68 K/mm3 0.1-0.8 N EOSINOPHIL # (test code = EO#) 0.51 K/mm3 0.0-0.2 H BASOPHIL # (test code = BA#) 0.05 K/mm3 0.0-0.2 N NUCLEATED RBC # (test code = NRBC#) 0.00 K/mm3 0.0-0.1 N GLUCOSE BEDSIDE [id number] 21:36:00* Test Item Value Reference Range Interpretation Comme nts GLUCOSE BEDSIDE TESTING (lokesh t code = GLUBED) 118 MG/DL 60-99 H UA RFLX MICR CULT IF [id number] 15:32:00* Test Item Value Reference Range Interpretation Comme nts UA COLOR (test code = COLU) YELLOW YELLOW UA APPEARANCE (test code = APPU) CLEAR CLEAR UA GLUCOSE DIPSTICK (test code = DGLUU) NORMAL MG/DL NORMAL UA BILIRUBIN DIPSTICK (test code = BILU) NEGATIVE MG/DL NEGATIVE UA KETONE DIPSTICK (test code = KETU) NEGATIVE MG/DL NEGATIVE UA SPECIFIC GRAVITY (test code = SGU) 1.020 1.003-1.030 N UA BLOOD DIPSTICK (test code = SHELBY) NEGATIVE Marquis/mm3 NEGATIVE UA PH DIPSTICK (test code = VAZQUEZ) 5.0 5.0-9.0 N UA PROTEIN DIPSTICK (test code = PROU) 15 MG/DL NEGATIVE UA UROBILINIOGEN DIPSTICK (test code = URO) NORMAL MG/DL NORMAL UA NITRITE DIPSTICK (test code = YUNIOR) NEGATIVE NEGATIVE UA LEUKOCYTE ESTERASE DIPSTICK (test code = LEUU) 100 /mm3 NEGATIVE A Indication for culture: RiskForSepsis-no oth srcSOURCE OF URINE: Straight CathUA [id number] 15:32:00* Test Item Value Reference Range Interpretation Comme nts UA RBC (test code = RBCU) 0-3 RBC/HPF 0-3 A Previously repor breanna result: 10-20 RBC/HPFEdited by: [id number] on 11/30/22:610253 3 1531: RBC previously reported as: 10-20 H RBC/HPF UA WBC (test code = XWBCU) 10-20 WBC/HPF 0-5 A Previously repor breanna result: 0-3 WBC/HPFEdited by: [id number] on 11/30/22:218490/02/05 3 1531: WBC previously reported as: 0-3 WBC/HPF UA EPITHELIAL CELLS (test code = EPIU) FEW EPI/HPF FEW UA BACTERIA (test code = XBACU) FEW NONE Indication for culture: RiskForSepsis-no oth srcSOURCE OF URINE: Straight Cath COMPREHENSIVE METABOLIC [id number] 12:15:00* Test Item Value Reference Range Interpretation Comme nts SODIUM (test code = NA) 143 MMOL/L 137-145 N POTASSIUM (test code = K) 3.8 MMOL/L 3.5-5.1 N CHLORIDE (test code = CL) 109 MMOL/L 98-107 H CARBON DIOXIDE (test code = CO2) 24 MMOL/L 22-30 N ANION GAP (test code = GAP) 14 MMOL/L 14-24 N GLUCOSE (test code = GLU) 96 MG/DL 74-106 N BLOOD UREA NITROGEN (test code = BUN) 20 MG/DL 7-17 H GLOMERULAR FILTRATION RATE (test code = GFR) > 60 The Glomerular Filtration Rate is a calculated parameterbased on serum Creatinine, patient age and sex. GFR valuesless than 60 mL/min/1.73 square meters are indicative ofChronic Kidney Disease. Values less than 15 mL/min/1.73square meters indicate Kidney failure. The calculation forGFR is based on the CKD-EPI (2020) calculation. This formulais race indifferent and is the recommended formula for GFRby the National Kidney Foundation for Adults.The GFR will not calculate if the sex is unknown or if thepatient's age is <18 years. CREATININE (test code = CREAT) 0.70 MG/DL 0.52-1.04 N TOTAL PROTEIN (test code = PROT) 7.6 G/DL 6.3-8.2 N [facility] Clinical D iagnInova [employer]roll has made us aware of newinformation regarding the potential interference ofEltrombopag (a bone marrow stimulant used to treatthrombocytonmenia and aplastic anemia) with specific assayson the Vitros 5600 of which Total Protein is one of thoseassays performed in our lab.Interference testing performed at Ortho determined thatEltrombopag does interfere with Vitros Total Protein asfollowsEltrombopag Interference for Vitros Product Total Protein: Eltrombopag Max Observed Avg. BiasConcentration Concentration Concentration 2.5 mg/dl 6.0 g/dl +0.41 +0.34 3.5 mg/dl 6.0 g/dl +0.50 +0.45 5 mg/dl 6.0 g/dl +0.73 +0.65 2.5 mg/dl 8.0 g/dl +0.44 +0.41 3.5 mg/dl 8.0 g/dl +0.55 +0.52 5 mg/dl 8.0 g/dl +0.86 +0.77 ALBUMIN (test code = ALB) 4.1 G/DL 3.5-5.0 N CALCIUM (test code = CA) 9.2 MG/DL 8.4-10.2 N BILIRUBIN TOTAL (test code = BILT) 0.4 MG/DL 0.2-1.3 N Eltrombopag Inte rference for Vitros Product TBil, BuBc: Assay Eltrombopag Analyte/ Max Observed Avg. Bias Concentration Concentration Concentration TBil 7mg/dl TBil/ 1.2mg/dl +0.23mg.dl +0.20mg/dlBuBc 3.5mg/dl Bu/0.8mg/dl +0.25mg/dl +0.24mg/dlBuBc 7 mg/dl Bu/14.2mg/dl +0.38mg/dl +0.25mg/dlBuBc 5mg/dl Bc/0mg/dl +0.25mg/dl +0.15mg/dlBuBc 3.5mg/dl Bc/2.8mg/dl +0.25mg/dl +0.23mg/dl SGOT/AST (test code = AST) 25 UNITS/L 14-36 N SGPT/ALT (test code = ALT) 21 UNITS/L 0-34 N ALKALINE PHOSPHATASE (test code = ALKP) 80 UNITS/L 38-126 VALPROIC ACID (DEPAKENE)2022-11-30 12:15:00* Test Item Value Reference Range Interpretation Comme nts VALPROIC ACID (DEPAKENE) (test code = VALP) 30.8 MCG/ML 50-100 L VALPROIC ACID REFERENCE RANGE: mcg/mLMinimal: 50.0Therapeutic : 50.0-120.0Possible Toxic: > 100.0Serious Toxic: >200.0 LACTIC [id number] 12:08:00* Test Item Value Reference Range Interpretation Comme nts LACTIC ACID (test code = LACT) 1.5 MMOL/L 0.7-2.1 N - CT ABD PELVIS [id number] 02:53:00 [facility] 1960 Sex: F Patient Name: FUNMILAYO ALLAN Unit No: [id number] EXAMS: CPT CODE: [id number] CT ABD PELVIS W/CONT 47898 EXAM: - CT ABD PELVIS W/CONT HISTORY: Abdominal pain. TECHNIQUE: Axial tomograms through the abdomen and pelvis were obtained after intravenous contrast. Coronal and sagittal reformatted images are provided. This exam was performed according to our departmental dose-optimization program, which include s automated exposure control, adjustment of the mA and/or kV according to patient size and/or use of iterative reconstruction technique. COMPARISON: None available time of interpretation. FINDINGS: The visualized lung bases are clear. Calcific plaques/ stent in left coronary arteries. There is a small hiatal hernia. The liver, spleen, pancreas, adrenal glands and kidneys demonstrate no significant abnormalities. There is a 3.2 cm simple appearing cyst in left kidney. No hydronephrosis. The appendix has a normal appearance. The bowel is unremarkable. There is no adenopathy or free fluid. The osseous structures demonstrate degenerative change without focal lesion. There is calcified plaque involving the abdominal aorta and it's major branching vessels. IMPRESSION: No definite acute abnormality and other findings as above. at 0253 Reported and signed by: Rupert Lopez MD CC: Olga Braga MD Technologist: Markos Dinh, RT(R)(CT); H CTDI: DLP: Trnscrpt: 11/30/2022 (3) t.SDR.MKM4 [facility] NAME: FUNMILAYO ALLAN PHYS: [place] [address] : 1960 AGE: 62 SEX: F LOC: [employer] PHONE #: [phone] EXAM DATE: 11/30/2022 STATUS: REG ER FAX #: [phone] RAD #: D/C DT PAGE 1 Signed Report Patient Name: FUNMILAYO ALLAN Unit No: [id number] EXAMS: CPT CODE: [id number] CT ABD PELVIS W/CONT 34204 (Continued) Orig Print D/T: S: 11/30/2022 (025) [facility] NAME: FUNMILAYO ALLAN PHYS: [place] [address] : 1960 AGE: 62 SEX: F LOC: [employer] PHONE #: [phone] EXAM DATE: 11/30/2022 STATUS: REG ER FAX #: [phone] RAD #: D/C DT PAGE 2 Signed Report COMPREHENSIVE METABOLIC [id number] 00:28:00* Test Item Value Reference Range Interpretation Comme nts SODIUM (test code = NA) 141 MMOL/L 137-145 N POTASSIUM (test code = K) 3.8 MMOL/L 3.5-5.1 N CHLORIDE (test code = CL) 106 MMOL/L 98-107 N CARBON DIOXIDE (test code = CO2) 24 MMOL/L 22-30 N GLUCOSE (test code = GLU) 104 MG/DL 74-106 N BLOOD UREA NITROGEN (test code = BUN) 21 MG/DL 7-17 H GLOMERULAR FILTRATION RATE (test code = GFR) > 60 The Glomerular Filtration Rate is a calculated parameterbased on serum Creatinine, patient age and sex. GFR valuesless than 60 mL/min/1.73 square meters are indicative ofChronic Kidney Disease. Values less than 15 mL/min/1.73square meters indicate Kidney failure. The calculation forGFR is based on the CKD-EPI (2020) calculation. This formulais race indifferent and is the recommended formula for GFRby the National Kidney Foundation for Adults.The GFR will not calculate if the sex is unknown or if thepatient's age is <18 years. CREATININE (test code = CREAT) 0.80 MG/DL 0.52-1.04 N TOTAL PROTEIN (test code = PROT) 8.5 G/DL 6.3-8.2 H Ortho Clinical D iagnostic has made us aware of newinformation regarding the potential interference ofEltrombopag (a bone marrow stimulant used to treatthrombocytonmenia and aplastic anemia) with specific assayson the TrialPays 5600 of which Total Protein is one of thoseassays performed in our lab.Interference testing performed at [facility] determined thatEltrombopag does interfere with Vitros Total Protein asfollowsEltrombopag Interference for Vitros Product Total Protein: Eltrombopag Max Observed Avg. BiasConcentration Concentration Concentration 2.5 mg/dl 6.0 g/dl +0.41 +0.34 3.5 mg/dl 6.0 g/dl +0.50 +0.45 5 mg/dl 6.0 g/dl +0.73 +0.65 2.5 mg/dl 8.0 g/dl +0.44 +0.41 3.5 mg/dl 8.0 g/dl +0.55 +0.52 5 mg/dl 8.0 g/dl +0.86 +0.77 ALBUMIN (test code = ALB) 4.6 G/DL 3.5-5.0 N CALCIUM (test code = CA) 10.2 MG/DL 8.4-10.2 N BILIRUBIN TOTAL (test code = BILT) 0.4 MG/DL 0.2-1.3 N Eltrombopag Inte rference for Vitros Product TBil, BuBc: Assay Eltrombopag Analyte/ Max Observed Avg. Bias Concentration Concentration Concentration TBil 7mg/dl TBil/ 1.2mg/dl +0.23mg.dl +0.20mg/dlBuBc 3.5mg/dl Bu/0.8mg/dl +0.25mg/dl +0.24mg/dlBuBc 7 mg/dl Bu/14.2mg/dl +0.38mg/dl +0.25mg/dlBuBc 5mg/dl Bc/0mg/dl +0.25mg/dl +0.15mg/dlBuBc 3.5mg/dl Bc/2.8mg/dl +0.25mg/dl +0.23mg/dl SGOT/AST (test code = AST) 27 UNITS/L 14-36 N SGPT/ALT (test code = ALT) 22 UNITS/L 0-34 N ALKALINE PHOSPHATASE (test code = ALKP) 95 UNITS/L 38-126 N [id number] 00:28:00* Test Item Value Reference Range Interpretation Comme nts TROPONIN-I (test code = TROPI) < 0.012 NG/ML 0.012-0.033 L LACTIC [id number] 00:10:00* Test Item Value Reference Range Interpretation Comme nts LACTIC ACID (test code = LACT) 2.2 MMOL/L 0.7-2.1 H CBC W/AUTO [id number] 23:54:00* Test Item Value Reference Range Interpretation Comme nts WHITE BLOOD CELL (test code = WBC) 11.2 K/MM3 3.8-9.8 H RED BLOOD CELL (test code = RBC) 5.32 M/MM3 3.58-4.97 H HEMOGLOBIN (test code = HGB) 15.2 G/DL 11.2-14.9 H HEMATOCRIT (test code = HCT) 47.1 % 33.2-43.5 H MEAN CELL VOLUME (test code = MCV) 89 fL 80.7-99.1 N MEAN CELL HGB (test code = MCH) 28.6 pg 27.0-34.1 N MEAN CELL HGB CONCETRATION (test code = MCHC) 32.3 % 32.2-35.7 N RED CELL DISTRIBUTION WIDTH (test code = RDW) 12.9 % 12.1-15.2 N PLATELET COUNT (test code = PLT) 243 K/MM3 129-368 N MEAN PLATELET VOLUME (test c ode = MPV) 10.7 fl 7.4-10.4 H NEUTROPHIL % (test code = NT%) 53.8 % 43-75 N IMMATURE GRANULOCYTE % (test code = IG%) 0.3 % 0.0-2.0 N LYMPHOCYTE % (test code = LY%) 35.4 % 14-44 N MONOCYTE % (test code = MO%) 7.4 % 4-13 N EOSINOPHIL % (test code = EO%) 2.6 % 0-6 N BASOPHIL % (test code = BA%) 0.5 % 0-2 N NUCLEATED RBC % (test code = NRBC%) 0.0 % 0-1.0 N NEUTROPHIL # (test code = NT#) 6.01 K/mm3 2.0-7.6 N IMMATURE GRANULOCYTE # (test code = IG#) 0.03 x10 3/uL 0-0.03 N LYMPHOCYTE # (test code = LY#) 3.96 K/mm3 1.0-3.8 H MONOCYTE # (test code = MO#) 0.83 K/mm3 0.1-0.8 H EOSINOPHIL # (test code = EO#) 0.29 K/mm3 0.0-0.2 H BASOPHIL # (test code = BA#) 0.06 K/mm3 0.0-0.2 N NUCLEATED RBC # (test code = NRBC#) 0.00 K/mm3 0.0-0.1 N - CT HEAD/BRAIN W/O [id number] 22:35:00 [facility] : 1960 Sex: F Patient Name: FUNMILAYO ALLAN Unit No: [id number] EXAMS: CPT CODE: [id number] CT HEAD/BRAIN W/O CONT 31842 Examination: Head CT without contrast Location code: H60 Comparison: None Technique: Axial contiguous images through the brain were obtained without contrast media. All CT scans are performed using radiation dose reduction technique. Technical factors are evaluated and adjusted to insure appropriate moderation of exposure. Automated dose management technology is applied to adjust the radiation dose to minimize exposure while achieving a diagnostic quality image. Discussion: Clinical history is remarkable for weakness. Altered mental status. There is no evidence of hydrocephalus, midline shift, extra-axial fluid collection, hemorrhage, acute infarction, or space- occupying mass lesion. The salas-white matter differentiation is preserved. 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 Chronic periventricular s mall vessel ischemic changes identified. The calvarium and the paranasal sinuses are within normal limits. Impression: 1. No acute intracranial abnormality. Electronically Signed by Kd Marion 11/29/2022 at 2234 Reported and signed by: Kd Dawkins MD CC: Olga Braga MD Technologist: Markos Dinh, RT(R)(CT) CTDI: DLP: Trnscrpt: 11/29/2022 (2234) t.SDR.VR5 [facility] NAME: FUNMILAYO ALLAN PHYS: [place] [address] : 1960 AGE:62 SEX: F LOC: [employer] PHONE #: [phone] EXAM DATE: 11/29/2022 STATUS: PRE ER FAX #: [phone] RAD #: D/C DT PAGE 1 Signed Report Patient Name: FUNMILYAO ALLAN Unit No: [id number] EXAMS: CPT CODE: [id number] CT HEAD/BRAIN W/O CONT 57079 (Continued) Orig Print D/T: S: 11/29/2022 (2237) [facility] NAME: FUNMILAYO ALLAN PHYS: [place] [address] : 1960 AGE: 62 SEX: F LOC: [employer] PHONE #: [phone] EXAM DATE: 11/29/2022 STATUS: PRE ER FAX #: [phone] RAD #: D/C DT PAGE 2 Signed Report- XR CHEST [id number] 22:34:00 [facility] : 1960 Sex: F Patient Name: FUNMILAYO ALLAN Unit No: [id number] EXAMS: CPT CODE: [id number] XR CHEST 1V 05522 EXAM: - XRCHEST 1V HISTORY: Sepsis. COMPARISON: None available time of interpretation. FINDINGS: Single AP view of the chest is provided. Heart size and vascularity are within normal limits. There is no evidence of a focal consolidation. There is no pleural effusion or pneumothorax. There is no definite acute osseous abnormality. IMPRESSION: No radiographic evidence of acute cardiopulmonary process. at 2234 Reported and signed by: Rupert Lopez MD CC: Olga Braga MD Technologist: Raymond Araya RT; Italia Yang (RTR) Transcrpt Date/Tm/T rnsp: 11/29/2022 (2233) t.MADELAINER.MKM4 Orig Print D/T: S: 11/29/2022 (2237) [facility] NAME: FUNMILAYO ALLAN [address] [address] PHYS: [place] [address] : 1960 AGE: 62 SEX: F LOC: [employer] PHONE #: [phone] EXAM DATE: 11/29/2022 STATUS: PRE ER FAX #: [phone] RADIOLOGY NO: PAGE 1 Signed ReportIR Gastro tube change (with Fluoro)2020-03-28 19:21:31Successful fluoroscopically-guided gastrostomy tube exchange. According to Executive Order [place] 09 and emergency rule 22 [place] Code (TAC[place] ?187.57(c), this procedure was deemed medicallynecessary to address a medical condition (history of CVA with percutaneousgastrostomy tube in place, in need of exchange) which places this patientat risk for serious adverse medical consequences or . As the attending radiologist, I, Dr. Luciano Bhatia, performed andwas present in the roomduring the entire procedure. PROVIDED REASON FOR EXAM/INDICATION: History of CVA with percutaneousgastrostomy tube in place, in need of exchange. PROCEDURE: Fluoroscopically-guided gastrostomy tube exchange. MEDICAL TRANSCRIPTIONIST: Dr. Luciano Bhatia. MEDICATIONS: None. CONTRAST: 10 mL Omnipaque-300. COMPL ICATION: None immediately evident. FLUOROSCOPY TIME: 0.4 minutes.RADIATION DOSE: 1.5 mGy. DESCRIPTION: Informed consent was obtained. The patient was taken to theinterventional suite and placed on the table in supine position. A time outwas performed. Skin of the left abdomen about the existing gastrostomy tubewas prepped and draped sterilely. A small amount of contrast was injectedconfirming thelocation of the gastrostomy tube within the stomach. [...] immediate.ESTIMATED BLOOD LOSS: None.CONDITION: Stable. FINDINGS:New 16 Gabonese gastrostomy tube placed within the stomach. [facility], Radiant Results Inft User - 03/28/2020 1:22 PM CSTPROVIDED REASON FOR EXAM/INDICATION: History of CVA with percutaneousgastrostomy tube in place, in need of exchang e.PROCEDURE: Fluoroscopically-guided gastrostomy tube exchange.MEDICAL TRANSCRIPTIONIST: Dr. Luciano Bhatia.MEDICATIONS: None.CONTRAST: 10 mL Omnipaque- 300.COMPLICATION: None immediately evident.FLUOROSCOPY TIME: 0.4 minutes.RADIATION DOSE: 1.5 mGy.DESCRIPTION: Informed consent was obtained. The patient wastaken to theinterventional suite and placed on the table in supine position. A time outwas performed. Skin of the left abdomen about the existing gastrostomy tubewas prepped and draped sterilely. A small amount of contrast was injectedconfirming the location of the gastrostomy tube within the stomach. Thetube was removed over a guidewire and exchanged for a new 16 Frenchgastrostomy tube which wasplaced within the stomach as confirmed withinjection of a small amount of contrast. The retention balloon was inflatedwith approximately 4 mL of dilute contrast. A sterile dressing was applied.The patient tolerated the procedure well without immediate complication andwas subsequently discharged from the department in stable condition.COMPLICATIONS: None immediate.ESTIMATED BLOOD LOSS: None.CONDITION: Stable.FINDINGS:New 16 Gabonese gastrostomy tube placed within the stomach.IMPRESSIONSuccessful fluoroscopically-guided gastrostomy tube exchange.According to Executive Order [place] 09 and emergency rule 22 [place] Code (TAC) ?187.57(c), this procedure was deemed medicallynecessary to address a medical condition (history of CVA with percutaneousgastrostomy tube in place, in need of exchange) which places this patientat risk for serious adverse medical consequences or .As the atten ding radiologist, I, Dr. Luciano Bhatia, performed andwas present in the room during the entire procedure.[facility] WITH DIFF 2020-01-11 08:37:00* Test Item Value Reference Range Interpretation Comme nts WBC (test code = 6690-2) See_Comment [Automated [employer] AGELON ?] The system which generated this result transmitted reference range: 4.30 - 11.10 10*3/?L. The reference range was not used to interpret this result as normal/abnormal. RBC (test code = 789-8) See_Comment L [Automated [employer] AGELON ?] The system which generated this result transmitted reference range: 3.93 - 5.25 10*6/?L. The reference range was not used to interpret this result as normal/abnormal. HGB (test code = 718-7) 11.4 g/dL 11.6-15 L HCT (test code = 4544-3) 35.1 % 35.7-45.2 L MCV (test code = 787-2) 95.4 fL 80.6-95.5 MCH (test code = 785-6) 31.0 pg 25.9-32.8 MCHC (test code = 786-4) 32.5 g/dL 31.6-35.1 RDW-SD (test code = 78751-9) 41.8 fL 39-49.9 RDW-CV (test code = 788-0) 12.0 % 12-15.5 PLT (test code = 777-3) See_Comment [Automated messa ge] The system which generated this result transmitted reference range: 166 - 358 10*3/?L. The reference range was not used to interpret this result as normal/abnormal. MPV (test code = 77153-5) 10.9 fL 9.5-12.9 NRBC/100 WBC (test code = 2100732235) See_Comment [Automated [employer] ssage] The system which generated this result transmitted reference range: 0.0 - 10.0 /100 WBCs. The reference range was not used to interpret this result as normal/abnormal. NRBC x10^3 (test code = 7269093372) <0.01 See_Comment [Automated messa ge] The system which generated this result transmitted reference range: 10*3/?L. The reference range was not used to interpret this result as normal/abnormal. GRAN MAT (NEUT) % (test code = 770-8) 79.1 % IMM GRAN % (test code = 9418127807) 0.20 % LYMPH % (test code = 736-9) 10.7 % MONO % (test code = 5905-5) 7.5 % EOS % (test code = 713-8) 2.3 % BASO % (test code = 706-2) 0.2 % GRAN MAT x10^3(ANC) (test code = 3267864771) 8.62 10*3/uL 1.88-7.09 H IMM GRAN x10^3 (test code = 3293787875) <0.03 0-0.06 LYMPH x10^3 (test code = 731-0) 1.17 10*3/uL 1.32-3.29 L MONO x10^3 (test code = 742-7) 0.82 10*3/uL 0.33-0.92 EOS x10^3 (test code = 711-2) 0.25 10*3/uL 0.03-0.39 BASO x10^3 (test code = 704-7) <0.03 0.01-0.07 Lab Interpretation (test code = 86201-3) Abnormal [facility] WITH [id number] 08:36:00* Test Item Value Reference Range Interpretation Comme nts WBC (test code = 6690-2) See_Comment H [Automated messa ge] The system which generated this result transmitted reference range: 4.30 - 11.10 10*3/?L. The reference range was not used to interpret this result as normal/abnormal. RBC (test code = 789-8) See_Comment L [Automated messa ge] The system which generated this result transmitted reference range: 3.93 - 5.25 10*6/?L. The reference range was not used to interpret this result as normal/abnormal. HGB (test code = 718-7) 11.2 g/dL 11.6-15 L HCT (test code = 4544-3) 34.1 % 35.7-45.2 L MCV (test code = 787-2) 95.5 fL 80.6-95.5 MCH (test code = 785-6) 31.4 pg 25.9-32.8 MCHC (test code = 786-4) 32.8 g/dL 31.6-35.1 RDW-SD (test code = 76480-5) 42.1 fL 39-49.9 RDW-CV (test code = 788-0) 12.0 % 12-15.5 PLT (test code = 777-3) See_Comment [Automated messa ge] The system which generated this result transmitted reference range: 166 - 358 10*3/?L. The reference range was not used to interpret this result as normal/abnormal. MPV (test code = 47675-7) 10.7 fL 9.5-12.9 NRBC/100 WBC (test code = 0859415646) See_Comment [Automated [employer]itting[employer] ssage] The system which generated this result transmitted reference range: 0.0 - 10.0 /100 WBCs. The reference range was not used to interpret this result as normal/abnormal. NRBC x10^3 (test code = 7893602505) <0.01 See_Comment [Automated messa ge] The system which generated this result transmitted reference range: 10*3/?L. The reference range was not used to interpret this result as normal/abnormal. GRAN MAT (NEUT) % (test code = 770-8) 81.8 % IMM GRAN % (test code = 3554544424) 0.40 % LYMPH % (test code = 736-9) 9.2 % MONO % (test code = 5905-5) 7.0 % EOS % (test code = 713-8) 1.4 % BASO % (test code = 706-2) 0.2 % GRAN MAT x10^3(ANC) (test code = 0195754019) 9.18 10*3/uL 1.88-7.09 H IMM GRAN x10^3 (test code = 3058615700) 0.04 10*3/uL 0-0.06 LYMPH x10^3 (test code = 731-0) 1.03 10*3/uL 1.32-3.29 L MONO x10^3 (test code = 742-7) 0.78 10*3/uL 0.33-0.92 EOS x10^3 (test code = 711-2) 0.16 10*3/uL 0.03-0.39 BASO x10^3 (test code = 704-7) <0.03 0.01-0.07 Lab Interpretation (test code = 83640-4) [facility]normal [facility] (ALB,T.PRO,BILI T,BU/BC,ALT,AST,ALK PHOS)2020-01-09 22:18:00* Test Item Value Reference Range Interpretation Comme nts TOTAL BILI (test code = 9452930023) 0.2 mg/dL 0.1-1.1 BILI UNCON (test code = 9374113479) 0.2 mg/dL 0.1-1.1 BILI CONJ (test code = 0971057901) 0.0 mg/dL 0-0.3 T PROTEIN (test code = 4749383323) 6.3 g/dL 6.3-8.2 ALBUMIN (test code = 6570950858) 2.9 g/dL 3.5-5 L ALK PHOS (test code = 0883974379) 55 U/L 34-122 ALTv (test code = 1742-6) 23 U/L 5-35 AST(SGOT) (test code = 5437997876) 30 U/L 13-40 Lab Interpretation (test cod e = 05861-6) Abnormal [facility] Center[facility]2020-10-26 14:23:00* Test Item Value Reference Range Interpretation Comme nts APPEARANCE (test code = 9275421989) Cloudy Clear A COLOR (test code = 2118465342) Yellow Yellow PH (test code = 3831613121) 4.8-8.0 SP GRAVITY (test code = 8788311019) 1.003-1.030 GLU U QUAL (test code = 2132445660) Normal Normal BLOOD (test code = 6301782242) Negative Negative INTERFERENCE FRO M ASCORBIC ACID MAY CAUSE FALSE NEGATIVE RESULT KETONES (test code = 5428530521) Negative Negative PROTEIN (test code = 2887-8) Negative Negative UROBILIN (test code = 6378063091) Normal Normal BILIRUBIN (test code = 6934498471) Negative Negative NITRITE (test code = 8342570950) Positive Negative A LEUK LOGAN (test code = 3844407180) 500/uL Negative A RBC/HPF (test code = 5734687078) See_Comment H [Automated messa ge] The system which generated this result transmitted reference range: 0 - 3 HPF. The reference range was not used to interpret this result as normal/abnormal. WBC/HPF (test code = 5881642172) See_Comment H [Automated [employer] ge] The system which generated this result transmitted reference range: 0 - 5 HPF. The reference range was not used to interpret this result as normal/abnormal. BACTERIA (test code = 8963563313) Many Negative A MUCOUS (test code = 4125335017) Slight Negative LPF A AMORPHOUS (test code = 0177941755) Few Rare HPF A SQ EPITH (test code = 7991759413) See_Comment [Automated messa ge] The system which generated this result transmitted reference range: <=2 HPF. The reference range was not used to interpret this result as normal/abnormal. Lab Interpretation (test code = 44740-3) [facility] [id number] 09:39:00* Test Item Value Reference Range Interpretation Comme nts WBC (test code = 6690-2) See_Comment H [Automated message] The system which generated this result transmitted reference range: 4.30 - 11.10 10*3/?L. The reference range was not used to interpret this result as normal/abnormal. RBC (test code = 789-8) See_Comment [Automated message] The system which generated this result transmitted reference range: 3.93 - 5.25 10*6/?L. The reference range was not used to interpret this result as normal/abnormal. HGB (test code = 718-7) 13.5 g/dL 11.6-15 HCT (test code = 4544-3) 40.9 % 35.7-45.2 MCV (test code = 787-2) 94.7 fL 80.6-95.5 MCH (test code = 785-6) 31.3 pg 25.9-32.8 MCHC (test code = 786-4) 33.0 g/dL 31.6-35.1 RDW-SD (test code = 36366-5) 41.8 fL 39-49.9 RDW-CV (test code = 788-0) 11.9 % 12-15.5 L PLT (test code = 777-3) See_Comment [Automated message] The system which generated this result transmitted reference range: 166 - 358 10*3/?L. The reference range was not used to interpret this result as normal/abnormal. MPV (test code = 60238-8) 11.0 fL 9.5-12.9 NRBC/100 WBC (test code = 1984927736) See_Comment [Automated message] The system which generated this result transmitted reference range: 0.0 - 10.0 /100 WBCs. The reference range was not used to interpret this result as normal/abnormal. NRBC x10^3 (test code = 9368930620) <0.01 See_Comment [Automated message] The system which generated this result transmitted reference range: 10*3/?L. The reference range was not used to interpret this result as normal/abnormal. GRAN MAT (NEUT) % (test code = 770-8) 88.6 % IMM GRAN % (test code = 6802782290) 0.50 % LYMPH % (test code = 736-9) 5.5 % MONO % (test code = 5905-5) 4.4 % EOS % (test code = 713-8) 0.8 % BASO % (test code = 706-2) 0.2 % GRAN MAT x10^3(ANC) (test code = 0733672528) 15.04 10*3/uL 1.88-7.09 H IMM GRAN x10^3 (test code = 5560464994) 0.09 10*3/uL 0-0.06 H LYMPH x10^3 (test code = 731-0) 0.94 10*3/uL 1.32-3.29 L MONO x10^3 (test code = 742-7) 0.75 10*3/uL 0.33-0.92 EOS x10^3 (test code = 711-2) 0.13 10*3/uL 0.03-0.39 BASO x10^3 (test code = 704-7) 0.04 10*3/uL 0.01-0.07 Lab Interpretation (test code = 69916-0) [facility] [id number] 07:54:36Impression: Unchanged opacity in the left midlung zone which may representpneumonia.Exam: XR CHEST 1 01/07/2020 9:50 AM Clinical History: cough Comparison: Radiograph of 12/30/2019 Technique: frontal view of the chest Findings: Mild pulmonary congestion. Previously noted opacity in the left lower lungzone is unchanged. No new consolidation. No pleural effusion. ?No pneumothorax. The cardiomediastinal silhouetteappears unchanged. No acute osseous abnormality. [facility], Radiant Results Inft User -01/08/2020 2:55 AM CDTExam: XR CHEST 1 01/07/2020 9:50 AMClinical History: cough Comparison: Radiograph of 12/30/2019Technique: frontal view of the chestFindings: Mild pulmonary congestion. Previously noted opacity in the left lower lungzone is unchanged. No new consolidation. No pleural effusion. No pneumothorax. The cardiomediastinal silhouetteappears unchanged. No acute osseous abnormality.IMPRESSIONImpression: Unchanged opacity in the left midlung zone which may representpneumonia.[facility] WITH [id number] 06:17:00* Test Item Value Reference Range Interpretation Comme nts WBC (test code = 6690-2) See_Comment H [Automated message] The system which generated this result transmitted reference range: 4.30 - 11.10 10*3/?L. The reference range was not used to interpret this result as normal/abnormal. RBC (test code = 789-8) See_Comment [Automated message] The system which generated this result transmitted reference range: 3.93 - 5.25 10*6/?L. The reference range was not used to interpret this result as normal/abnormal. HGB (test code = 718-7) 13.1 g/dL 11.6-15 HCT (test code = 4544-3) 39.3 % 35.7-45.2 MCV (test code = 787-2) 94.2 fL 80.6-95.5 MCH (test code = 785-6) 31.4 pg 25.9-32.8 MCHC (test code = 786-4) 33.3 g/dL 31.6-35.1 RDW-SD (test code = 69520-8) 42.5 fL 39-49.9 RDW-CV (test code = 788-0) 12.1 % 12-15.5 PLT (test code = 777-3) See_Comment [Automated message] The system which generated this result transmitted reference range: 166 - 358 10*3/?L. The reference range was not used to interpret this result as normal/abnormal. MPV (test code = 13539-5) 10.8 fL 9.5-12.9 NRBC/100 WBC (test code = 2441706573) See_Comment [Automated message] The system which generated this result transmitted reference range: 0.0 - 10.0 /100 WBCs. The reference range was not used to interpret this result as normal/abnormal. NRBC x10^3 (test code = 4995694938) <0.01 See_Comment [Automated message] The system which generated this result transmitted reference range: 10*3/?L. The reference range was not used to interpret this result as normal/abnormal. GRAN MAT (NEUT) % (test code = 770-8) 82.9 % IMM GRAN % (test code = 5971934735) 0.40 % LYMPH % (test code = 736-9) 7.7 % MONO % (test code = 5905-5) 7.4 % EOS % (test code = 713-8) 1.3 % BASO % (test code = 706-2) 0.3 % GRAN MAT x10^3(ANC) (test code = 0616856432) 12.33 10*3/uL 1.88-7.09 H IMM GRAN x10^3 (test code = 8042687109) 0.06 10*3/uL 0-0.06 LYMPH x10^3 (test code = 731-0) 1.15 10*3/uL 1.32-3.29 L MONO x10^3 (test code = 742-7) 1.10 10*3/uL 0.33-0.92 H EOS x10^3 (test code = 711-2) 0.20 10*3/uL 0.03-0.39 BASO x10^3 (test code = 704-7) 0.04 10*3/uL 0.01-0.07 Lab Interpretation (test code = 32748-5) Abnormal [facility] METABOLIC PANEL (NA, K, CL, CO2, GLUCOSE, BUN, CREATININE, CA)2020-01-07 10:01:00* Test Item Value Reference Range Interpretation Comme nts NA (test code = 6523967127) 140 mmol/L 135-145 K (test code = 3993587123) 4.5 mmol/L 3.5-5 CL (test code = 5051556698) 107 mmol/L 98-108 CO2 TOTAL (test code = 5059023543) 28 mmol/L 23-31 AGAP (test code = 6952178123) 2-16 BUN (test code = 6580106550) 34 mg/dL 7-23 H GLUCOSE (test code = 6061459417) 113 mg/dL 70-110 H CREATININE (test code = 9529162766) 0.70 mg/dL 0.5-1.04 CALCIUM (test code = 2440866725) 9.7 mg/dL 8.6-10.6 eGFR Calculation (Non-) (test code = 7039763501) mL/min/1.73m2 eGFR Calculation () (test code = 2846505810) mL/min/1.73m2 TONE (test code = TONE) Association of [...] or abnormalities in imaging tests). Lab Interpretation (test code = 68708-9) Abnormal [facility] WITHOUT [id number] 09:48:00* Test Item Value Reference Range Interpretation Comme nts WBC (test code = 6690-2) See_Comment H [Automated message] The system which generated this result transmitted reference range: 4.30 - 11.10 10*3/?L. The reference range was not used to interpret this result as normal/abnormal. RBC (test code = 789-8) See_Comment [Automated message] The system which generated this result transmitted reference range: 3.93 - 5.25 10*6/?L. The reference range was not used to interpret this result as normal/abnormal. HGB (test code = 718-7) 13.4 g/dL 11.6-15 HCT (test code = 4544-3) 40.7 % 35.7-45.2 MCH (test code = 785-6) 31.0 pg 25.9-32.8 MCV (test code = 787-2) 94.2 fL 80.6-95.5 MCHC (test code = 786-4) 32.9 g/dL 31.6-35.1 PLT (test code = 777-3) See_Comment [Automated message] The system which generated this result transmitted reference range: 166 - 358 10*3/?L. The reference range was not used to interpret this result as normal/abnormal. MPV (test code = 23336-6) 10.5 fL 9.5-12.9 RDW-CV (test code = 788-0) 12.2 % 12-15.5 RDW-SD (test code = 42978-2) 42.5 fL 39-49.9 NRBC x10^3 (test code = 8819512509) <0.01 See_Comment [Automated Tweetwalla ge] The system which generated this result transmitted reference range: 10*3/?L. The reference range was not used to interpret this result as normal/abnormal. NRBC/100 WBC (test code = 8839837332) See_Comment [Automated Tweetwalla ge] The system which generated this result transmitted reference range: 0.0 - 10.0 /100 WBCs. The reference range was not used to interpret this result as normal/abnormal. IPF % (test code = 6992967482) Lab Interpretation (test code = 68965-4) [facility]2020-[facility] 00:40:00* Test Item Value Reference Range Interpretation Comme nts APPEARANCE (test code = 2235106739) Cloudy Clear A COLOR (test code = 7735762271) Yellow Yellow PH (test code = 6816461788) 4.8-8.0 SP GRAVITY (test code = 9213430534) 1.003-1.030 GLU U QUAL (test code = 9136355667) Normal Normal BLOOD (test code = 2922543446) Negative Negative Interference fro m ascorbic acid may cause false negative results. KETONES (test code = 8303583629) Negative Negative PROTEIN (test code = 2887-8) Negative Negative UROBILIN (test code = 2849614948) Normal Normal BILIRUBIN (test code = 7725180924) Negative Negative NITRITE (test code = 3237899899) Negative Negative LEUK LOGAN (test code = 6925405050) Negative Negative RBC/HPF (test code = 9162218735) See_Comment H [Automated messa ge] The system which generated this result transmitted reference range: 0 - 3 HPF. The reference range was not used to interpret this result as normal/abnormal. WBC/HPF (test code = 8331536401) See_Comment [Automated messa ge] The system which generated this result transmitted reference range: 0 - 5 HPF. The reference range was not used to interpret this result as normal/abnormal. BACTERIA (test code = 1853816002) Negative Negative SQ EPITH (test code = 1692479540) <1 See_Comment [Automated messa ge] The system which generated this result transmitted reference range: <=2 HPF. The reference range was not used to interpret this result as normal/abnormal. ASCORBIC ACID (test code = 6556390410) 40 mg/dL Lab Interpretation (test code = 05675-3) Abnormal [facility] METABOLIC PANEL (NA, K, CL, CO2, GLUCOSE, BUN, CREATININE, CA)2020-01-05 14:19:00* Test Item Value Reference Range Interpretation Comme nts NA (test code = 6844771232) 145 mmol/L 135-145 K (test code = 6046789135) 4.7 mmol/L 3.5-5 Slight hemolysis CL (test code = 4536065212) 110 mmol/L 98-108 H CO2 TOTAL (test code = 5744267899) 28 mmol/L 23-31 AGAP (test code = 6002125129) 2-16 BUN (test code = 6340077934) 32 mg/dL 7-23 H Slight hemolysis GLUCOSE (test code = 4941610512) 103 mg/dL 70-110 CREATININE (test code = 9433124400) 0.77 mg/dL 0.5-1.04 CALCIUM (test code = 3231069470) 9.9 mg/dL 8.6-10.6 eGFR Calculation (Non-) (test code = 5645227693) mL/min/1.73m2 eGFR Calculation () (test code = 3565743558) mL/min/1.73m2 TONE (test code = TONE) Association of [...] or abnormalities in imaging tests). Lab Interpretation (test code = 72505-4) Abnormal [facility] WITHOUT [id number] 14:11:00* Test Item Value Reference Range Interpretation Comme nts WBC (test code = 6690-2) See_Comment H [Automated message] The system which generated this result transmitted reference range: 4.30 - 11.10 10*3/?L. The reference range was not used to interpret this result as normal/abnormal. RBC (test code = 789-8) See_Comment [Automated message] The system which generated this result transmitted reference range: 3.93 - 5.25 10*6/?L. The reference range was not used to interpret this result as normal/abnormal. HGB (test code = 718-7) 15.0 g/dL 11.6-15 HCT (test code = 4544-3) 44.9 % 35.7-45.2 MCH (test code = 785-6) 31.6 pg 25.9-32.8 MCV (test code = 787-2) 94.5 fL 80.6-95.5 MCHC (test code = 786-4) 33.4 g/dL 31.6-35.1 PLT (test code = 777-3) See_Comment [Automated message] The system which generated this result transmitted reference range: 166 - 358 10*3/?L. The reference range was not used to interpret this result as normal/abnormal. MPV (test code = 48858-1) 10.5 fL 9.5-12.9 RDW-CV (test code = 788-0) 12.3 % 12-15.5 RDW-SD (test code = 82337-0) 42.5 fL 39-49.9 NRBC x10^3 (test code = 5775693093) <0.01 See_Comment [Automated Tweetwalla ge] The system which generated this result transmitted reference range: 10*3/?L. The reference range was not used to interpret this result as normal/abnormal. NRBC/100 WBC (test code = 4334176187) See_Comment [Automated Tweetwalla ge] The system which generated this result transmitted reference range: 0.0 - 10.0 /100 WBCs. The reference range was not used to interpret this result as normal/abnormal. IPF % (test code = 9836022640) Lab Interpretation (test code = 39687-8) [facility]normal [facility] CenterMOD [facility] SWALLOW, (COOKNIYA)2020-01-04 14:56:301. ?Episodes of both laryngeal penetration and aspiration observed. 2. ?Please see separate Speech Pathology report for recommendations andadditional findings. Preliminary Report Dictated by Resident: nÁgela Foreman MD., have reviewed this study and agree with the abovereport.FL MODIFIED BARIUM SWALLOW HISTORY: 59 years-old; Female; dysphagia TECHNIQUE: A video swallowing exam with fluoroscopy was performed inconjunction with Speech Pathology who administered multiple consistenciesof barium. Fluoroscopy was performed under the supervision of awaisdiologist. COMPARISON: None FINDINGS: Episodes of both laryngeal penetration and aspiration were observed. [facility], Radiant Results Inft User - 01/04/2020 9:57 AM CDTFL MODIFIED BARIUM SWALLOWHISTORY: 59 years-old; Female; dysphagia TECHNIQUE: A video [...] reviewed this study and agree with the abovereport.[facility] CenterIR G-TUBE PLACEMENT [id number] 16:13:50Successful placement of a 16 Gabonese gastrostomy catheter withabsorbable gastropexy. I, as teaching physician, was present during the entire procedure and/orduring the oleary components. Preliminary Report Dictated by Resident: Issa Cary MD., have reviewed this study and agreewith the abovereport.EXAMINATION: PERCUTANEOUS GASTROSTOMY CATHETER PLACEMENT HISTORY/INDICATION: [...] was obtained. Prior to beginning the procedure, Un iversal Protocolwas performed to confirm the patient's identity [...] stomach was then accessed with a sheathed needle.The tract was dilatedover a guidewire to 22 Gabonese, and a 16 Gabonese gastrostomy tube wasadvanced into the stomach. The catheter was secured to the skin using thebumper mechanism after inflating the G-tube balloon with normal saline andcontrast admixture. ESTIMATED BLOOD LOSS: Minimal. CONDITION: Stable. DISCHARGED TO: Recovery and then to inpatient unit. FINDINGS: Final fluoroscopic images demonstrate the gastrostomy catheterwith its tip in the body of the stomach. No complications are identified. [facility], Radiant Results Inft User - 01/02/2020 11:15 AM CDTEXAMINATION: PERCUTANEOUS GASTROSTOMY CATHETER PLACEMENTHISTORY/INDICATION: Dysphagia ATTENDING PRESENCE: As the attending radiologist, I was present in theroom during the entire procedure. Resident: Dr. Alberto Marcial. [...] was obtained. Prior to beginning the procedure, [place] Protocolwas performed to confirm the patient's identity andthe planned procedure.Maximum sterile barriers including cap, mask, hand hygiene, sterile gloves,sterile gown, large sterile drape and cutaneous antisepsis were used. The skin over the stomach was sterilely prepped, draped and infiltratedwith 1 percent lidocaine and 1 mg of intravenous glucagon wasadministered.The existing NG tube was used to inject air to distend the stomach. Fluoroscopy was used to determine a safe tract to the stomach. Due to overlapping bowel, a Marilu CT was performed with multiplanar 2-Dreformations made under a separate workstation under direct physiciansupervision. TheDyna CT images demonstrated a safe percutaneous accesswindow for gastrostomy tube placement and thebowel loops seen on planarfluoroscopy was located posterior to the stomach.The stomach was then accessed under fluoroscopic guidance, and 3 absorbablegastropexies were placed. The stomach was then accessed with a sheathed needle. The tract was dilatedover a guidewire to 22 Gabonese, and a 16 Gabonese gastrostomy tube wasadvanced into the stomach. The catheter was secured to the skin using thebumper mechanism after inflating the G-tube balloon with normal saline andcontrast admixture. ESTIMATED BLOOD LOSS: Minimal.CONDITION: Stable.DISCHARGED TO: Recovery and then to inpatient unit. FINDINGS: Final fluoroscopic images demonstrate the gastrostomy catheterwith its tip in the body of the stomach. No complications are identified. IMPRESSIONSuccessful placement of a 16 Gabonese gastrostomy catheter withabsorbable gastropexy.I, as teaching physician, was present during the entire procedure and/orduring the oleary components.Preliminary Report Dictated by Resident: Issa Wilson MD., have reviewed this study and agree with the abovereport. [facility] (NA, K, CL, CO2, GLUCOSE, BUN, CREATININE, CA)2020-01-01 10:21:00* Test Item Value Reference Range Interpretation Comme nts NA (test code = 6759303456) 138 mmol/L 135-145 K (test code = 9611550652) 3.8 mmol/L 3.5-5 CL (test code = 7794289039) 106 mmol/L 98-108 CO2 TOTAL (test code = 9546901366) 26 mmol/L 23-31 AGAP (test code = 9503249036) 2-16 BUN (test code = 8441866366) 19 mg/dL 7-23 GLUCOSE (test code = 4936211134) 121 mg/dL 70-110 H CREATININE (test code = 9086644584) 0.75 mg/dL 0.5-1.04 CALCIUM (test code = 7272643859) 9.1 mg/dL 8.6-10.6 eGFR Calculation (Non-) (test code = 4753165648) mL/min/1.73m2 eGFR Calculation () (test code = 6990032293) mL/min/1.73m2 TONE (test code = TONE) Association of [...] or abnormalities in imaging tests). Lab Interpretation (test code = 69744-3) [facility]normal [facility] CenterMAGN[facility]UM2020-10-18 10:21:00* Test Item Value Reference Range Interpretation Comme nts MAGNESIUM (test code = 9794108875) 2.0 mg/dL 1.7-2.4 Lab Interpretation (test cod e = 04147-0) Normal [facility] WITH [id number] 09:47:00* Test Item Value Reference Range Interpretation Comme nts WBC (test code = 6690-2) See_Comment [Automated messa ge] The system which generated this result transmitted reference range: 4.30 - 11.10 10*3/?L. The reference range was not used to interpret this result as normal/abnormal. RBC (test code = 789-8) See_Comment [Automated messa ge] The system which generated this result transmitted reference range: 3.93 - 5.25 10*6/?L. The reference range was not used to interpret this result as normal/abnormal. HGB (test code = 718-7) 13.0 g/dL 11.6-15 HCT (test code = 4544-3) 39.8 % 35.7-45.2 MCV (test code = 787-2) 95.7 fL 80.6-95.5 H MCH (test code = 785-6) 31.3 pg 25.9-32.8 MCHC (test code = 786-4) 32.7 g/dL 31.6-35.1 RDW-SD (test code = 19327-4) 41.7 fL 39-49.9 RDW-CV (test code = 788-0) 11.9 % 12-15.5 L PLT (test code = 777-3) See_Comment [Automated messa ge] The system which generated this result transmitted reference range: 166 - 358 10*3/?L. The reference range was not used to interpret this result as normal/abnormal. MPV (test code = 67992-6) 11.0 fL 9.5-12.9 NRBC/100 WBC (test code = 7157050298) See_Comment [Automated FittingRoom ssage] The system which generated this result transmitted reference range: 0.0 - 10.0 /100 WBCs. The reference range was not used to interpret this result as normal/abnormal. NRBC x10^3 (test code = 1968941136) <0.01 See_Comment [Automated messa ge] The system which generated this result transmitted reference range: 10*3/?L. The reference range was not used to interpret this result as normal/abnormal. GRAN MAT (NEUT) % (test code = 770-8) 66.5 % IMM GRAN % (test code = 3339852504) 0.40 % LYMPH % (test code = 736-9) 20.9 % MONO % (test code = 5905-5) 10.0 % EOS % (test code = 713-8) 1.7 % BASO % (test code = 706-2) 0.5 % GRAN MAT x10^3(ANC) (test code = 7157692516) 5.38 10*3/uL 1.88-7.09 IMM GRAN x10^3 (test code = 6710119192) 0.03 10*3/uL 0-0.06 LYMPH x10^3 (test code = 731-0) 1.69 10*3/uL 1.32-3.29 MONO x10^3 (test code = 742-7) 0.81 10*3/uL 0.33-0.92 EOS x10^3 (test code = 711-2) 0.14 10*3/uL 0.03-0.39 BASO x10^3 (test code = 704-7) 0.04 10*3/uL 0.01-0.07 Lab Interpretation (test code = 63088-6) Abnormal [facility] METABOLIC PANEL (NA, K, CL, CO2, GLUCOSE, BUN, CREATININE, CA)2019-12-31 10:16:00* Test Item Value Reference Range Interpretation Comme nts NA (test code = 8615114707) 136 mmol/L 135-145 K (test code = 4578342003) 4.0 mmol/L 3.5-5 CL (test code = 2721654771) 108 mmol/L 98-108 CO2 TOTAL (test code = 9346077665) 22 mmol/L 23-31 L AGAP (test code = 0810761171) 2-16 BUN (test code = 2631821309) 16 mg/dL 7-23 GLUCOSE (test code = 1475632504) 89 mg/dL 70-110 CREATININE (test code = 6704043167) 0.67 mg/dL 0.5-1.04 CALCIUM (test code = 5152250158) 8.3 mg/dL 8.6-10.6 L eGFR Calculation (Non-) (test code = 3485411078) mL/min/1.73m2 eGFR Calculation () (test code = 9382262227) mL/min/1.73m2 TONE (test code = TONE) Association of [...] or abnormalities in imaging tests). Lab Interpretation (test code = 87391-3) [facility]normal [facility]2020-10-17 10:16:00* Test Item Value Reference Range Interpretation Comme nts MAGNESIUM (test code = 7438370521) 1.8 mg/dL 1.7-2.4 Lab Interpretation (test cod e = 46248-6) Normal [facility] WITH [id number] 09:29:00* Test Item Value Reference Range Interpretation Comme nts WBC (test code = 6690-2) See_Comment [Automated Tweetwalla AGELON ?] The system which generated this result transmitted reference range: 4.30 - 11.10 10*3/?L. The reference range was not used to interpret this result as normal/abnormal. RBC (test code = 789-8) See_Comment [Automated Tweetwalla ge] The system which generated this result transmitted reference range: 3.93 - 5.25 10*6/?L. The reference range was not used to interpret this result as normal/abnormal. HGB (test code = 718-7) 13.1 g/dL 11.6-15 HCT (test code = 4544-3) 39.8 % 35.7-45.2 MCV (test code = 787-2) 95.4 fL 80.6-95.5 MCH (test code = 785-6) 31.4 pg 25.9-32.8 MCHC (test code = 786-4) 32.9 g/dL 31.6-35.1 RDW-SD (test code = 18815-4) 41.3 fL 39-49.9 RDW-CV (test code = 788-0) 11.9 % 12-15.5 L PLT (test code = 777-3) See_Comment [Automated Tweetwalla ge] The system which generated this result transmitted reference range: 166 - 358 10*3/?L. The reference range was not used to interpret this result as normal/abnormal. MPV (test code = 34832-0) 11.0 fL 9.5-12.9 NRBC/100 WBC (test code = 9159418283) See_Comment [Automated FittingRoom ssage] The system which generated this result transmitted reference range: 0.0 - 10.0 /100 WBCs. The reference range was not used to interpret this result as normal/abnormal. NRBC x10^3 (test code = 1342378262) <0.01 See_Comment [Automated Tweetwalla ge] The system which generated this result transmitted reference range: 10*3/?L. The reference range was not used to interpret this result as normal/abnormal. GRAN MAT (NEUT) % (test code = 770-8) 71.1 % IMM GRAN % (test code = 8099468481) 0.40 % LYMPH % (test code = 736-9) 19.5 % MONO % (test code = 5905-5) 7.7 % EOS % (test code = 713-8) 1.0 % BASO % (test code = 706-2) 0.3 % GRAN MAT x10^3(ANC) (test code = 7976640721) 5.62 10*3/uL 1.88-7.09 IMM GRAN x10^3 (test code = 1702172468) 0.03 10*3/uL 0-0.06 LYMPH x10^3 (test code = 731-0) 1.54 10*3/uL 1.32-3.29 MONO x10^3 (test code = 742-7) 0.61 10*3/uL 0.33-0.92 EOS x10^3 (test code = 711-2) 0.08 10*3/uL 0.03-0.39 BASO x10^3 (test code = 704-7) <0.03 0.01-0.07 Lab Interpretation (test code = 17256-6) [facility] 1 [id number] 13:34:49New faint left lower lung opacity may represent developing infectiousetiology. Preliminary Report Dictated by Resident: Isaiah Rios MD., have reviewed this study and agree with the abovereport.EXAM: XR CHEST 1 VW 12/30/2019 6:40 AM HISTORY: 59 years-old Female with cough TECHNIQUE: Portable AP view of the chest. COMPARISON: CXR 12/29/2019 FINDINGS: Lines and tubes: Enteric tube is seen coursing subdiaphragmatically withtip outside the jrbjc-zf-naen. Cardiomediastinal: Thecardiomediastinal silhouette is normal. Lungs and pleura: The hilar vasculature is more prominent on the study,possibly due to technique. A new faint opacity is seen in the left lowerlung field, sugge stive of a focal underlying consolidation. Redemonstrationof emphysematous changes. Musculoskeletal: No acute skeletal abnormality. Similar appearance ofwidened right acromioclavicular joint. [facility], Radiant Results Inft User - 12/30/2019 8:35 AM CDTEXAM: XR CHEST 1 VW 12/30/2019 6:40 AMHISTORY: 59 years- old Female with cough TECHNIQUE: Portable AP view of the chest. COMPARISON: CXR 12/29/2019FINDINGS: Lines and tubes: Enteric tube is seen coursing subdiaphragmatically withtip outside the qgmqi-rr-spuf.Cardiomediastinal: The cardiomediastinal silhouette is normal.Lungs and pleura: The hilar vasculature is more prominent on the study,possibly due to technique. A new faint opacity is seen in the left lowerlung field, suggestive of a focal underlying consolidation. Redemonstrationof emphysematous changes.Musculoskeletal: No acute skeletal abnormality. Similar appearance ofwidened right acromioclavicular joint.IMPRESSIONNew faint left lower lung opacity may represent developing infectiousetiology.Preliminary Report Dictated by Resident: Wai Frey, Isaiah Valentine MD., have reviewed this study and agree with the abovereport. [facility] CULTURE [id number] 11:01:00* Test Item Value Reference Range Interpretation Comme nts Blood Culture-Aerobic (test code = 42515-3) No organisms isolated No growth Previous preliminary verified result was Culture In Progress on 12/25/2019 at 09 CDTPrevious preliminary verified result was No growth at 24 hours on 12/26/2019 at 06 CDTPrevious preliminary verified result was No growth at 48 hours on 12/27/2019 at [facility] CDTPrevious preliminary verified result was No growth at 72 hours on 12/28/2019 at 06 CDT Blood Culture-Anaerobic (test code = 57566-0) No organisms isolated No growth Previous preliminary verified result was Culture In Progress on 12/25/2019 at 09 CDTPrevious preliminary verified result was No growth at 24 hours on 12/26/2019 at 06 CDTPrevious preliminary verified result was No growth at 48 hours on 12/27/2019 at 06 CDTPrevious preliminary verified result was No growth at 72 hours on 12/28/2019 at 06 CDT Lab Interpretation (test code = 78052-7) Normal [facility] CULTURE [id number] 11:01:00* Test Item Value Reference Range Interpretation Comme nts Blood Culture-Aerobic (test code = 79386-5) No organisms isolated No growth Previous preliminary verified result was Culture In Progress on 12/25/2019 at 09 CDTPrevious preliminary verified result was No growth at 24 hours on 12/26/2019 at 06 CDTPrevious preliminary verified result was No growth at 48 hours on 12/27/2019 at 06 CDTPrevious preliminary verified result was No growth at 72 hours on 12/28/2019 at [facility] CDT Blood Culture-Anaerobic (test code = 16425-4) No organisms isolated No growth Previous preliminary verified result was Culture In Progress on 12/25/2019 at 09 CDTPrevious preliminary verified result was No growth at 24 hours on 12/26/2019 at [facility] CDTPrevious preliminary verified result was No growth at 48 hours on 12/27/2019 at [facility] CDTPrevious preliminary verified result was No growth at 72 hours on 12/28/2019 at [facility] CDT TONE (test code = TONE) Optimal blood volume for culture is 8-10 mL per bottle. A suboptimal volume of blood was collected for this culture, which could adversely affect recovery and/or time of detection of organisms. Interpret results accordingly. Lab Interpretation (test code = 03045-6) Normal [facility] METABOLIC PANEL (NA, K, CL, CO2, GLUCOSE, BUN, CREATININE, CA)2019-12-30 08:55:00* Test Item Value Reference Range Interpretation Comme nts NA (test code = 7919780134) 141 mmol/L 135-145 K (test code = 2159622309) 4.0 mmol/L 3.5-5 CL (test code = 8464030069) 106 mmol/L 98-108 CO2 TOTAL (test code = 1866168488) 27 mmol/L 23-31 AGAP (test code = 8436530551) 2-16 BUN (test code = 1800663807) 18 mg/dL 7-23 GLUCOSE (test code = 6830545012) 91 mg/dL 70-110 CREATININE (test code = 1756395586) 0.69 mg/dL 0.5-1.04 CALCIUM (test code = 5776303169) 8.6 mg/dL 8.6-10.6 eGFR Calculation (Non-) (test code = 4968416242) mL/min/1.73m2 eGFR Calculation () (test code = 3793204076) mL/min/1.73m2 TONE (test code = TONE) Association of [...] or urine or abnormalities in imaging tests). [facility] 08:55:00* Test Item Value Reference Range Interpretation Comme nts MAGNESIUM (test code = 5992056254) 1.9 mg/dL 1.7-2.4 Lab Interpretation (test cod e = 45588-0) Normal [facility] WITH [id number] 08:43:00* Test Item Value Reference Range Interpretation Comme nts WBC (test code = 6690-2) See_Comment [Automated iKoa] The system which generated this result transmitted reference range: 4.30 - 11.10 10*3/?L. The reference range was not used to interpret this result as normal/abnormal. RBC (test code = 789-8) See_Comment [Automated iKoa] The system which generated this result transmitted reference range: 3.93 - 5.25 10*6/?L. The reference range was not used to interpret this result as normal/abnormal. HGB (test code = 718-7) 13.3 g/dL 11.6-15 HCT (test code = 4544-3) 40.4 % 35.7-45.2 MCV (test code = 787-2) 96.0 fL 80.6-95.5 H MCH (test code = 785-6) 31.6 pg 25.9-32.8 MCHC (test code = 786-4) 32.9 g/dL 31.6-35.1 RDW-SD (test code = 71526-2) 42.8 fL 39-49.9 RDW-CV (test code = 788-0) 12.2 % 12-15.5 PLT (test code = 777-3) See_Comment [Automated messa ge] The system which generated this result transmitted reference range: 166 - 358 10*3/?L. The reference range was not used to interpret this result as normal/abnormal. MPV (test code = 17677-3) 11.3 fL 9.5-12.9 NRBC/100 WBC (test code = 9185421539) See_Comment [Automated FittingRoom ssage] The system which generated this result transmitted reference range: 0.0 - 10.0 /100 WBCs. The reference range was not used to interpret this result as normal/abnormal. NRBC x10^3 (test code = 4687652816) <0.01 See_Comment [Automated messa ge] The system which generated this result transmitted reference range: 10*3/?L. The reference range was not used to interpret this result as normal/abnormal. GRAN MAT (NEUT) % (test code = 770-8) 69.8 % IMM GRAN % (test code = 3522598666) 0.30 % LYMPH % (test code = 736-9) 17.1 % MONO % (test code = 5905-5) 10.4 % EOS % (test code = 713-8) 2.1 % BASO % (test code = 706-2) 0.3 % GRAN MAT x10^3(ANC) (test code = 8049826376) 6.68 10*3/uL 1.88-7.09 IMM GRAN x10^3 (test code = 7015242484) 0.03 10*3/uL 0-0.06 LYMPH x10^3 (test code = 731-0) 1.63 10*3/uL 1.32-3.29 MONO x10^3 (test code = 742-7) 0.99 10*3/uL 0.33-0.92 H EOS x10^3 (test code = 711-2) 0.20 10*3/uL 0.03-0.39 BASO x10^3 (test code = 704-7) 0.03 10*3/uL 0.01-0.07 Lab Interpretation (test code = 46246-6) [facility]normal [facility] [id number] 23:25:01Appropriate positioning enteric tube. 2. Nonobstructive bowel gas pattern. Preliminary Report Dictated by Resident: Martha Bartlett MD., have reviewed this study and agree with theabove report.EXAM: XR KUB HISTORY: Dobbhoff placement COMPARISON: Abdomen radiograph 12/26/2019 FINDINGS: The weighted enteric tube tip projects over the gastric body and pointedinferiorly.Thebowel gas pattern is unremarkable. No pathologically dilated bowelloops. Vascular calcifications are noted. No acute bony abnormality is present. [facility], Radiant Results Inft User - 12/29/2019 6:26 PM CDTEXAM: XR KUBHISTORY: Dobbhoff placement COMPARISON: Abdomen radiograph 12/26/2019FINDINGS:The weighted enteric tube tip projects over the gastric body and pointedinferiorly.The bowel gas pattern isunremarkable. No pathologically dilated bowelloops.Vascular calcifications are noted.No acute bony abnormality is present.IMPRESSIONAppropriate positioning enteric tube. 2. Nonobstructive bowel gas pattern.Preliminary Report Dictated by Resident: Martha Andersno MD., have reviewed this study and agree with theabove report.[facility] 1 [id number] 20:12:56No acute cardiopulmonary abnormality. Chronic emphysematous changes. Preliminary Report Dictated byResident: Martin Rios MD., have reviewed this study and agree with theabove report.EXAM: XR CHEST 1 VW 12/29/2019 11:59 AM HISTORY: 59 years-old Female with cough TECHNIQUE: Portable AP view of the chest. COMPARISON: CXR 12/24/2019 FINDINGS: Lines and tubes: Interval placement of enteric tube coursingsubdiaphragmatically with tip outside the gfhfx-iy-tjvz, likely within thestomach. Cardiomediastinal: The cardiomediastinal silhouette is unchanged. Lungs and pleura: Emphysematous changes more prominent at the lung apicesare seen, similar to prior. No focal consolidation, pneumothorax, orpleural effusion is seen. Musculoskeletal: No acute skeletal abnormality. Osteopenia. The rightacromioclavicular joint space is widened, similar to prior [facility], Radiant Results Inft User - 12/29/2019 3:14 PM CDTEXAM: XR CHEST 1 VW 12/29/2019 11:59 AMHISTORY: 59 years-old Female with cough TECHNIQUE: Portable AP view of the chest. COMPARISON: CXR 12/24/2019FINDINGS: Lines and tubes: Interval placement of enteric tube coursingsubdiaphragmatically with tip outside the vtgzc-jz-rvol, likely within thestomach.Cardiomediastinal: The cardiomediastinal silhouette is unchanged.Lungs and pleura: Emphysematous changes more prominent at the lung apicesare seen, similar to prior. No focal consolidation, pneumothorax, orpleural effusion is seen.Musculoskeletal: No acute skeletal abnormality. Osteopenia. The rightacromioclavicular joint space is widened, similar to priorIMPRESSIONNo acute cardiopulmonary abnormality. Chronic emphysematous changes.Preliminary Report Dictated by Resident: Martin Hurst MD., have reviewed this study and agree with theabove report. [facility] + LACTIC [id number] 16:56:00* Test Item Value Reference Range Interpretation Comme nts PH (test code = 2) 7.35-7.45 PCO2 (test code = 0454622335) See_Comment [Automated Tweetwalla AGELON ?] The system which generated this result transmitted reference range: 35 - 45 mmHg. The reference range was not used to interpret this result as normal/abnormal. PO2 (test code = 8312545716) See_Comment [Automated Tweetwalla AGELON ?] The system which generated this result transmitted reference range: 80 - 100 mmHg. The reference range was not used to interpret this result as normal/abnormal. HCO3 (test code = 6745639077) See_Comment [Automated messa ge] The system which generated this result transmitted reference range: 22 - 26 mEq/L. The reference range was not used to interpret this result as normal/abnormal. BE (test code = 5899047838) See_Comment [Automated messa ge] The system which generated this result transmitted reference range: -3.0 - 3.0 mEq/L. The reference range was not used to interpret this result as normal/abnormal. THB (test code = 3125852830) 14.4 g/dL 12-16 %O2HB (test code = 0724883529) 94.3 % 94-99 %COHB ART (test code = 1701064337) 0.8 % 0-1.5 %METHB ART (test code = 7717739662) 0.0 % 0.4-1.5 L VOL%O2 ART (test code = 4720849554) 19.1 % 15-23 NA (test code = 0024413731) 136 mmol/L 135-145 K+ (test code = 0938548149) 4.2 mmol/L 3.5-5 AC CA IONZ (test code = 9257181016) 5.00 mg/dL 4.5-5.3 GLUCOSE (test code = 3833220745) 118 mg/dL 70-110 H LACTIC ACID (test code = 8778317069) 0.98 mmol/L Lab Interpretation (test code = 61610-9) [facility]normal [facility]2019-12-29 16:49:00* Test Item Value Reference Range Interpretation Comme [facility] POCT GLU (test code = 5744071431) 108 mg/dL 70-110 Lab Interpretation (test cod e = 57495-0) Normal [facility] METABOLIC PANEL (NA, K, CL, CO2, GLUCOSE, BUN, CREATININE, CA)2019-12-29 10:35:00* Test Item Value Reference Range Interpretation Comme [facility] NA (test code = 0150868709) 135 mmol/L 135-145 K (test code = 4163433001) 4.2 mmol/L 3.5-5 CL (test code = 0574299491) 104 mmol/L 98-108 CO2 TOTAL (test code = 2270026519) 26 mmol/L 23-31 AGAP (test code = 7654511908) 2-16 BUN (test code = 4964202714) 16 mg/dL 7-23 GLUCOSE (test code = 0410343516) 102 mg/dL 70-110 CREATININE (test code = 4336913083) 0.60 mg/dL 0.5-1.04 CALCIUM (test code = 9904021680) 9.2 mg/dL 8.6-10.6 eGFR Calculation (Non-) (test code = 0675067842) mL/min/1.73m2 eGFR Calculation () (test code = 6218728882) mL/min/1.73m2 TONE (test code = TONE) Association of [...] or urine or abnormalities in imaging tests). [facility] 10:35:00* Test Item Value Reference Range Interpretation Comme nts MAGNESIUM (test code = 7363381055) 1.8 mg/dL 1.7-2.4 Lab Interpretation (test cod e = 55668-1) Normal [facility] WITH [id number] 10:09:00* Test Item Value Reference Range Interpretation Comme nts WBC (test code = 6690-2) See_Comment [Automated messa ge] The system which generated this result transmitted reference range: 4.30 - 11.10 10*3/?L. The reference range was not used to interpret this result as normal/abnormal. RBC (test code = 789-8) See_Comment [Automated messa ge] The system which generated this result transmitted reference range: 3.93 - 5.25 10*6/?L. The reference range was not used to interpret this result as normal/abnormal. HGB (test code = 718-7) 13.8 g/dL 11.6-15 HCT (test code = 4544-3) 41.7 % 35.7-45.2 MCV (test code = 787-2) 93.1 fL 80.6-95.5 MCH (test code = 785-6) 30.8 pg 25.9-32.8 MCHC (test code = 786-4) 33.1 g/dL 31.6-35.1 RDW-SD (test code = 48780-4) 42.3 fL 39-49.9 RDW-CV (test code = 788-0) 12.3 % 12-15.5 PLT (test code = 777-3) See_Comment [Automated messa ge] The system which generated this result transmitted reference range: 166 - 358 10*3/?L. The reference range was not used to interpret this result as normal/abnormal. MPV (test code = 73412-7) 11.1 fL 9.5-12.9 NRBC/100 WBC (test code = 8931101186) See_Comment [Automated me ssage] The system which generated this result transmitted reference range: 0.0 - 10.0 /100 WBCs. The reference range was not used to interpret this result as normal/abnormal. NRBC x10^3 (test code = 8532960010) <0.01 See_Comment [Automated messa ge] The system which generated this result transmitted reference range: 10*3/?L. The reference range was not used to interpret this result as normal/abnormal. GRAN MAT (NEUT) % (test code = 770-8) 78.0 % IMM GRAN % (test code = 4246974656) 0.20 % LYMPH % (test code = 736-9) 10.3 % MONO % (test code = 5905-5) 10.7 % EOS % (test code = 713-8) 0.5 % BASO % (test code = 706-2) 0.3 % GRAN MAT x10^3(ANC) (test code = 6835513859) 8.63 10*3/uL 1.88-7.09 H IMM GRAN x10^3 (test code = 4013722262) <0.03 0-0.06 LYMPH x10^3 (test code = 731-0) 1.14 10*3/uL 1.32-3.29 L MONO x10^3 (test code = 742-7) 1.18 10*3/uL 0.33-0.92 H EOS x10^3 (test code = 711-2) 0.06 10*3/uL 0.03-0.39 BASO x10^3 (test code = 704-7) 0.03 10*3/uL 0.01-0.07 Lab Interpretation (test code = 49908-9) Abnormal [facility] [id number] 22:23:00* Test Item Value Reference Range Interpretation Comme nts NT-proBNP (test code = 7631638597) 254 pg/mL See_Comment H [Automated message] The system which generated this result transmitted reference range: <=125. The reference range was not used to interpret this result as normal/abnormal. TONE (test code = TONE) Biotin has been reported to cause a negative bias, interpret results relative to patient's use of biotin. Lab Interpretation (test code = 14520-6) Abnormal [facility] WITH [id number] 08:29:00* Test Item Value Reference Range Interpretation Comme nts WBC (test code = 6690-2) See_Comment [Automated messa ge] The system which generated this result transmitted reference range: 4.30 - 11.10 10*3/?L. The reference range was not used to interpret this result as normal/abnormal. RBC (test code = 789-8) See_Comment [Automated Tweetwalla ge] The system which generated this result transmitted reference range: 3.93 - 5.25 10*6/?L. The reference range was not used to interpret this result as normal/abnormal. HGB (test code = 718-7) 13.4 g/dL 11.6-15 HCT (test code = 4544-3) 40.5 % 35.7-45.2 MCV (test code = 787-2) 94.4 fL 80.6-95.5 MCH (test code = 785-6) 31.2 pg 25.9-32.8 MCHC (test code = 786-4) 33.1 g/dL 31.6-35.1 RDW-SD (test code = 90987-9) 43.0 fL 39-49.9 RDW-CV (test code = 788-0) 12.4 % 12-15.5 PLT (test code = 777-3) See_Comment [Automated Tweetwalla ge] The system which generated this result transmitted reference range: 166 - 358 10*3/?L. The reference range was not used to interpret this result as normal/abnormal. MPV (test code = 81901-1) 10.8 fL 9.5-12.9 NRBC/100 WBC (test code = 6634767069) See_Comment [Automated FittingRoom ssage] The system which generated this result transmitted reference range: 0.0 - 10.0 /100 WBCs. The reference range was not used to interpret this result as normal/abnormal. NRBC x10^3 (test code = 6016351892) <0.01 See_Comment [Automated Tweetwalla ge] The system which generated this result transmitted reference range: 10*3/?L. The reference range was not used to interpret this result as normal/abnormal. GRAN MAT (NEUT) % (test code = 770-8) 74.1 % IMM GRAN % (test code = 4320965438) 0.40 % LYMPH % (test code = 736-9) 14.8 % MONO % (test code = 5905-5) 9.6 % EOS % (test code = 713-8) 0.7 % BASO % (test code = 706-2) 0.4 % GRAN MAT x10^3(ANC) (test code = 4447335882) 5.98 10*3/uL 1.88-7.09 IMM GRAN x10^3 (test code = 0825628391) 0.03 10*3/uL 0-0.06 LYMPH x10^3 (test code = 731-0) 1.19 10*3/uL 1.32-3.29 L MONO x10^3 (test code = 742-7) 0.77 10*3/uL 0.33-0.92 EOS x10^3 (test code = 711-2) 0.06 10*3/uL 0.03-0.39 BASO x10^3 (test code = 704-7) 0.03 10*3/uL 0.01-0.07 Lab Interpretation (test code = 79694-7) Abnormal [facility] METABOLIC PANEL (NA, K, CL, CO2, GLUCOSE, BUN, CREATININE, CA)2019-12-28 08:13:00* Test Item Value Reference Range Interpretation Comme nts NA (test code = 2178698470) 139 mmol/L 135-145 K (test code = 2483508898) 3.1 mmol/L 3.5-5 L CL (test code = 7721224396) 113 mmol/L 98-108 H CO2 TOTAL (test code = 5345339931) 23 mmol/L 23-31 AGAP (test code = 8734152500) 2-16 BUN (test code = 2611919721) 21 mg/dL 7-23 GLUCOSE (test code = 6595166228) 107 mg/dL 70-110 CREATININE (test code = 1394048579) 0.64 mg/dL 0.5-1.04 CALCIUM (test code = 8330499165) 7.6 mg/dL 8.6-10.6 L eGFR Calculation (Non-) (test code = 2784164785) mL/min/1.73m2 eGFR Calculation () (test code = 7047955386) mL/min/1.73m2 TONE (test code = TONE) Association of [...] or abnormalities in imaging tests). Lab Interpretation (test code = 40078-8) [facility]2020-10-14 08:13:00* Test Item Value Reference Range Interpretation Comme [facility] MAGNESIUM (test code = 8530409424) 1.9 mg/dL 1.7-2.4 Lab Interpretation (test cod e = 36303-3) Normal [facility] CenterPROTHROMBIN TIME / [id number] 07:52:00* Test Item Value Reference Range Interpretation Comme nts PROTIME PATIENT (test code = 5964-2) See_Comment [Automated iKoa] The system which generated this result transmitted reference range: 10.1 - 12.6 Seconds. The reference range was not used to interpret this result as normal/abnormal. INR (test code = 6301-6) Normal INR <1.1; Warfarin Therapeutic range 2.0 to 3.0 or 2.5 to 3.5, depending upon the indications. Lab Interpretation (test code = 13605-1) [facility] [id number] 14:44:08FINDINGS/IMPRESSION: The weighted enteric tube tip lies within the stomach. Preliminary Report Dicta breanna by Resident: Navi Collazo I reviewed this study and agree with minor modifications (no call needed tothe referring physician). Nguyễn Alcocer MD., have reviewed this study and agreewith theabove report.EXAM: XR KUB HISTORY: Dobbhoff placement COMPARISON: Abdomen radiograph 12/26/2019 [facility], Radiant Results Inft User - 12/27/2019 9:45 AM CDTEXAM: XR KUBHISTORY: Dobbhoff placementCOMPARISON: Abdomen radiograph 12/26/2019IMPRESSIONFINDINGS/IMPRESSION:The weighted enteric tube tip lies within the stomach.Preliminary Report Dictated by Resident: Navi Corcoran reviewed thisstudy and agree with minor modifications (no call needed tothe referring physician).INguyễn MD., have reviewed this study and agree with theabove report.[facility]2020-10-13 09:11:00* Test Item Value Reference Range Interpretation Comme nts MAGNESIUM (test code = 0281919189) 1.8 mg/dL 1.7-2.4 Lab Interpretation (test cod e = 21249-1) Normal [facility]OL[facility] (NA, K, CL, CO2, GLUCOSE, BUN, CREATININE, CA)2019-12-27 09:11:00* Test Item Value Reference Range Interpretation Comme nts NA (test code = 2438001429) 137 mmol/L 135-145 K (test code = 8768343390) 3.8 mmol/L 3.5-5 Slight hemolysis CL (test code = 3936833485) 106 mmol/L 98-108 CO2 TOTAL (test code = 3122755923) 23 mmol/L 23-31 AGAP (test code = 1472101792) 2-16 BUN (test code = 5469058519) 18 mg/dL 7-23 Slight hemolysis GLUCOSE (test code = 6877141889) 113 mg/dL 70-110 H CREATININE (test code = 6469837319) 0.69 mg/dL 0.5-1.04 CALCIUM (test code = 9691165353) 9.2 mg/dL 8.6-10.6 eGFR Calculation (Non-) (test code = 4031533227) mL/min/1.73m2 eGFR Calculation () (test code = 4791310053) mL/min/1.73m2 TONE (test code = TONE) Association of [...] or abnormalities in imaging tests). Lab Interpretation (test code = 98242-1) Abnormal [facility] WITH [id number] 08:46:00* Test Item Value Reference Range Interpretation Comme nts WBC (test code = 6690-2) See_Comment [Automated [employer] AGELON ?] The system which generated this result transmitted reference range: 4.30 - 11.10 10*3/?L. The reference range was not used to interpret this result as normal/abnormal. RBC (test code = 789-8) See_Comment [Automated messa ge] The system which generated this result transmitted reference range: 3.93 - 5.25 10*6/?L. The reference range was not used to interpret this result as normal/abnormal. HGB (test code = 718-7) 15.8 g/dL 11.6-15 H HCT (test code = 4544-3) 46.0 % 35.7-45.2 H MCV (test code = 787-2) 92.4 fL 80.6-95.5 MCH (test code = 785-6) 31.7 pg 25.9-32.8 MCHC (test code = 786-4) 34.3 g/dL 31.6-35.1 RDW-SD (test code = 76618-9) 41.2 fL 39-49.9 RDW-CV (test code = 788-0) 12.0 % 12-15.5 PLT (test code = 777-3) See_Comment [Automated messa ge] The system which generated this result transmitted reference range: 166 - 358 10*3/?L. The reference range was not used to interpret this result as normal/abnormal. MPV (test code = 60529-5) 10.9 fL 9.5-12.9 NRBC/100 WBC (test code = 4604219109) See_Comment [Automated FittingRoom ssage] The system which generated this result transmitted reference range: 0.0 - 10.0 /100 WBCs. The reference range was not used to interpret this result as normal/abnormal. NRBC x10^3 (test code = 2112969271) <0.01 See_Comment [Automated messa ge] The system which generated this result transmitted reference range: 10*3/?L. The reference range was not used to interpret this result as normal/abnormal. GRAN MAT (NEUT) % (test code = 770-8) 81.1 % IMM GRAN % (test code = 0789983856) 0.20 % LYMPH % (test code = 736-9) 10.8 % MONO % (test code = 5905-5) 7.5 % EOS % (test code = 713-8) 0.2 % BASO % (test code = 706-2) 0.2 % GRAN MAT x10^3(ANC) (test code = 1019940037) 7.27 10*3/uL 1.88-7.09 H IMM GRAN x10^3 (test code = 7415641718) <0.03 0-0.06 LYMPH x10^3 (test code = 731-0) 0.97 10*3/uL 1.32-3.29 L MONO x10^3 (test code = 742-7) 0.67 10*3/uL 0.33-0.92 EOS x10^3 (test code = 711-2) <0.03 0.03-0.39 L BASO x10^3 (test code = 704-7) <0.03 0.01-0.07 Lab Interpretation (test code = 06975-6) [facility]normal [facility] Center[facility] - Duration of test: Continuous EEG Monitoring (LTM)2019-12-27 00:00:00LONG TERM EEG MONITORING SEGMENT #1:Date and Time of Procedure: 12/27/2019, 9:14:58-11:03:06 REPORT TECHNICAL SUMMARY: The EEG was recorded digitally. Electrodes were applied using the International 10/20 System of electrode [...] electrographic evidence of drowsiness or sleep seen. Phot ic stimulation and hyperventilation are not employed as [...] more appropriate method of cardiac monitoring. No electr ographic seizures or epileptiform abnormalities are seen. The fact that there is no definitive electrographic evidence of drowsiness or sleep seen may decrease the diagnostic sensitivity of the test,as some EEG abnormalities are more commonly seen in drowsiness and sleep. I discussed these findings with the neurology team following thepatient immediately after I read this segment. Interpreted byGigi Colby MD on 12/27/19 JAIL E EG MONITORING SEGMENT #2: Date and Time of Procedure: 12/27/2019, 11:03:06 to 16:14:06 Study was disconnected from 15:43:55 to 15:54:05 IMPRESSION:This study is abnormal due to:1) moderate diffuse slowing, suggestive of a moderate diffuse disturbance in cerebral function.2) excess fast activity, which is suggestive of medication effect. 3) focal slowing in the left hemisphere, suggestive of a foca l disturbance in that region.4) frequent abnormal-appearing ECG waveforms which appear to possibly be PVCs, and would be better assessed by a more appropriate method of cardiac monitoring. No electrographic seizures or epileptiform abnormalities are seen. I discussed these findings with the neurology team following the patient immediately after I read this segment. Interpreted by Tena King MD on 12/27/19 DISPLAY AND [employer] DESIGNER EEG MONITORING SEGMENT #3: 12/27/19, 16:14:06-19:20:49 This segment is abnormal due to:1) moderate diffuse slowing, which can be suggestive of a moderate diffuse disturbance in cerebral function but can also be related to sedating medications.2) excess fast activity, which can be suggestive of medication effect but can also be seenin anxiety.3) focal slowing in the left hemisphere, suggestive of a focal disturbance in that region. 4) frequent PVCs. No electrographic seizures or epileptiform abnormalities are seen. I discussed t hese findings with the neurology team following this patient immediately after I read this segment.Interpreted by Cesar Dixon MD on 12/27/19 JAIL EEG MONITORING SEGMENT #3: 12/27/19,19:20:49 -12/28/2019, 11:17:23 [...] electrographic seizures or epileptiform abnormalities are seen. Rosanna Pinon MD I personally interpreted the entire recording and agree with Dr. Pinon's note as written. Interpreted by Claudio King MD on [facility] CenterMR BRAIN WO [id number] 18:46:55Motion degraded exam. Large subacute infarct in the [...] dated 12/24/2019. TECHNIQUE: Routine MRI of the brainwas performed at [address] [facility] [address] withoutintravenous contrast administration. FINDINGS: Slight effacement ofthe left lateral ventricle is noted, unchanged. Nomidline [...] air cells or remaining paranasal air sinuses. [facility], Radiant Results Inft User - 12/26/2019 1:47 PM CDTMRI OF THE BRAIN WITH AND WITHOUT CONTRAST.HISTORY: Neuro deficit(s), subacute COMPARISON: CT head dated 12/24/2019.TECHNIQUE: Routine MRI of the brain was performed at [address] [facility] [address] withoutintravenous contrast administration.FINDINGS:Slight effacement of the left lateral ventricle is noted, unchanged. Nomidline shift, hydrocephalus or pathological extra-axial fluid collectionis present. The basalcisterns are unremarkable.A broad area of restricted diffusion involving the left insular/subinsularcortex, left parietal lobe and left caudate nucleus with correspondingT2/FLAIR hyperintensity with s ulcal effacement. Chronic right cerebellarlacunar infarcts. Scattered foci of T2/FLAIR hyperintensity seen in thebilateral cerebral white matter, nonspecific, likely reflects sequelae ofmild chronic small vessel ischemic changes. No abnormal gradient blooming.Loss of the left ICA flow void. Minimalmucoperiosteal thickening affecting ethmoid are cells. 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 No abnormal fluid signal is presentin the mastoid air cells or remaining paranasal air sinuses.IMPRESSIONMotion degraded exam. Large subacute infarct in the left MCA territory withno gross evidence of hemorrhage transformation.Findings were communicated and acknowledged by GILA Prasad at 12:51 PM on12/26/2019.Preliminary Report Dictated by Resident: Clark Main, Henri Jackson MD., have reviewed this study and agree with theabove report. [facility] CenterAb[facility] View - To confirm nasogastric tube placement.2019-12-26 15:20:07Nonobstructive bowel gas pattern. Preliminary Report Dictated by [...] present. [facility], [facility] Results Inft User - 12/26/2019 10:21 AM CDTEXAM: XR ABDOMEN 1 VWHISTORY: aphasia, and dysphagia COMPARISON: None.FINDINGS:The tip of the Dobbhoff tube lies within the stomach. The bowel gas patternis unremarkable. No pathologically dilated bowel loops.Contrast is seen within the pelvicalyceal system of both kidneys, likelyfrom recent study.Vascular calcifications are noted.No acute bony abnormality is present.IMPRESSIONNonobstructive bowel gas pattern.Preliminary Report Dictated by Resident: Navi Corcoran reviewed this study and agree.Nguyễn Alcocer MD., have reviewed this study and agree with theabove report.[facility] CenterXR [id number] 15:04:26 FINDINGS/IMPRESSION: The tip of the Dobbhoff [...] reviewed this study and agree with theabove report.[facility] CenterKIM [id number] 13:02:00* Test Item Value Reference Range Interpretation Comme nts TROPONIN I (test code = 9010983054) 0.013 ng/mL See_Comment [Automated message] The system which generated this result transmitted reference range: <=0.034. The reference range was not used to interpret this result as normal/abnormal. TONE (test code = TONE) Equal or Less than 0.034 ng/ml---Normal ?Note: Cardiac troponin begins to [...] patient's use of biotin. ? Lab Interpretation (test code = 83405-8) Normal [facility] CenterBASI METABOLIC PANEL (NA, K, CL, CO2, GLUCOSE, BUN, CREATININE, CA)2019-12-26 09:46:00* Test Item Value Reference Range Interpretation Comme nts NA (test code = 3821661785) 137 mmol/L 135-145 K (test code = 3613747283) 3.7 mmol/L 3.5-5 CL (test code = 2375912309) 108 mmol/L 98-108 CO2 TOTAL (test code = 8096543954) 21 mmol/L 23-31 L AGAP (test code = 9600197183) 2-16 BUN (test code = 9396834970) 10 mg/dL 7-23 GLUCOSE (test code = 6617659603) 107 mg/dL 70-110 CREATININE (test code = 0447065108) 0.57 mg/dL 0.5-1.04 CALCIUM (test code = 9454143612) 8.4 mg/dL 8.6-10.6 L eGFR Calculation (Non-) (test code = 5262159909) mL/min/1.73m2 eGFR Calculation () (test code = 2192494651) mL/min/1.73m2 TONE (test code = TONE) Association of [...] or abnormalities in imaging tests). Lab Interpretation (test code = 22306-2) Abnormal [facility] WITH [id number] 09:20:00* Test Item Value Reference Range Interpretation Comme nts WBC (test code = 6690-2) See_Comment H [Automated iKoa] The system which generated this result transmitted reference range: 4.30 - 11.10 10*3/?L. The reference range was not used to interpret this result as normal/abnormal. RBC (test code = 789-8) See_Comment [Automated messa ge] The system which generated this result transmitted reference range: 3.93 - 5.25 10*6/?L. The reference range was not used to interpret this result as normal/abnormal. HGB (test code = 718-7) 15.4 g/dL 11.6-15 H HCT (test code = 4544-3) 45.2 % 35.7-45.2 MCV (test code = 787-2) 94.2 fL 80.6-95.5 MCH (test code = 785-6) 32.1 pg 25.9-32.8 MCHC (test code = 786-4) 34.1 g/dL 31.6-35.1 RDW-SD (test code = 51291-3) 42.5 fL 39-49.9 RDW-CV (test code = 788-0) 12.2 % 12-15.5 PLT (test code = 777-3) See_Comment [Automated messa ge] The system which generated this result transmitted reference range: 166 - 358 10*3/?L. The reference range was not used to interpret this result as normal/abnormal. MPV (test code = 26471-6) 10.5 fL 9.5-12.9 NRBC/100 WBC (test code = 9339108432) See_Comment [Automated FittingRoom ssage] The system which generated this result transmitted reference range: 0.0 - 10.0 /100 WBCs. The reference range was not used to interpret this result as normal/abnormal. NRBC x10^3 (test code = 4573295654) <0.01 See_Comment [Automated messa ge] The system which generated this result transmitted reference range: 10*3/?L. The reference range was not used to interpret this result as normal/abnormal. GRAN MAT (NEUT) % (test code = 770-8) 82.9 % IMM GRAN % (test code = 3620276880) 0.40 % LYMPH % (test code = 736-9) 10.4 % MONO % (test code = 5905-5) 5.9 % EOS % (test code = 713-8) 0.1 % BASO % (test code = 706-2) 0.3 % GRAN MAT x10^3(ANC) (test code = 4194194859) 9.76 10*3/uL 1.88-7.09 H IMM GRAN x10^3 (test code = 0200571872) 0.05 10*3/uL 0-0.06 LYMPH x10^3 (test code = 731-0) 1.23 10*3/uL 1.32-3.29 L MONO x10^3 (test code = 742-7) 0.70 10*3/uL 0.33-0.92 EOS x10^3 (test code = 711-2) <0.03 0.03-0.39 L BASO x10^3 (test code = 704-7) 0.04 10*3/uL 0.01-0.07 Lab Interpretation (test code = 93461-3) Abnormal [facility] CenterMRSA / MSSA Screen by PCR, [id number] 16:13:00* Test Item Value Reference Range Interpretation Comme nts MSSA Screen by PCR, Nares (test code = 56655-1) Positive Negative A MRSA/MSSA Positive? (test code = 6264438889) Yes No A TONE (test code = TONE) A positive test result does not necessarily indicate the presence of viable organism. Lab Interpretation (test code = 26018-4) Abnormal [facility] METABOLIC PANEL (NA, K, CL, CO2, GLUCOSE, BUN, CREATININE, CA)2019-12-25 09:09:00* Test Item Value Reference Range Interpretation Comme nts NA (test code = 2962367129) 141 mmol/L 135-145 K (test code = 4822076453) 4.6 mmol/L 3.5-5 Slight hemolysis CL (test code = 2799037189) 109 mmol/L 98-108 H CO2 TOTAL (test code = 0173075309) 23 mmol/L 23-31 AGAP (test code = 5271434224) 2-16 BUN (test code = 4495590303) 16 mg/dL 7-23 Slight hemolysis GLUCOSE (test code = 9469311308) 96 mg/dL 70-110 CREATININE (test code = 1768568883) 0.76 mg/dL 0.5-1.04 CALCIUM (test code = 6075035272) 8.8 mg/dL 8.6-10.6 eGFR Calculation (Non-) (test code = 5555456278) mL/min/1.73m2 eGFR Calculation () (test code = 6394758119) mL/min/1.73m2 TONE (test code = TONE) Association of [...] or abnormalities in imaging tests). Lab Interpretation (test code = 38483-8) Abnormal [facility] WITHOUT [id number] 08:20:00* Test Item Value Reference Range Interpretation Comme nts WBC (test code = 6690-2) See_Comment [Automated message] The system which generated this result transmitted reference range: 4.30 - 11.10 10*3/?L. The reference range was not used to interpret this result as normal/abnormal. RBC (test code = 789-8) See_Comment [Automated message] The system which generated this result transmitted reference range: 3.93 - 5.25 10*6/?L. The reference range was not used to interpret this result as normal/abnormal. HGB (test code = 718-7) 15.6 g/dL 11.6-15 H HCT (test code = 4544-3) 47.5 % 35.7-45.2 H MCH (test code = 785-6) 31.0 pg 25.9-32.8 MCV (test code = 787-2) 94.4 fL 80.6-95.5 MCHC (test code = 786-4) 32.8 g/dL 31.6-35.1 PLT (test code = 777-3) See_Comment [Automated message] The system which generated this result transmitted reference range: 166 - 358 10*3/?L. The reference range was not used to interpret this result as normal/abnormal. MPV (test code = 09666-1) 10.4 fL 9.5-12.9 RDW-CV (test code = 788-0) 12.8 % 12-15.5 RDW-SD (test code = 95109-4) 44.0 fL 39-49.9 NRBC x10^3 (test code = 6407162837) <0.01 See_Comment [Automated Tweetwalla AGELON ?] The system which generated this result transmitted reference range: 10*3/?L. The reference range was not used to interpret this result as normal/abnormal. NRBC/100 WBC (test code = 4116385281) See_Comment [Automated Tweetwalla AGELON ?] The system which generated this result transmitted reference range: 0.0 - 10.0 /100 WBCs. The reference range was not used to interpret this result as normal/abnormal. IPF % (test code = 3654541819) Lab Interpretation (test code = 52639-8) Abnormal [facility] CenterCT ANGIOGRAM [id number] 23:15:09Complete occlusion of the left cervical ICA from [...] HISTORY: Female 59 years Stroke, follow up COMPARISON:CT head dated 12/24/2019 TECHNIQUE: Routine CTA head and neck were performed followingadministration of 100 mL IV Omnipaque FINDINGS: CTA head: The PICA origin is visualized bilaterally. Short segment moderate narrowingis seen within the mid basilar artery. The superior cerebellar arteries arepatent. The posterior cerebral arteries are patent. No sizable posteriorcommunicating arteries are identified. The distal cervical, petrous, cavernous and supraclinoid portions of theright internal carotidartery are patent. The left internal carotid arteryis completely occluded with reconstitution of a segment of the supraclinoidportion at the level of the ophthalmic artery. A short segment of the M1 segment is opacified before there is an abruptcut off. Attenuated flow is noted within distal M3 andM4 branches. Theanterior cerebral arteries and the right [...] through thevertebrobasilar junction. [facility], Radiant Results Inft User - 12/24/2019 6:16 PM CDTCT ANGIOGRAM NECK, CT ANGIOGRAM HEADHISTORY: Female 59 years Stroke, follow up COMPARISON: CT head dated 12/24/2019TECHNIQUE: Routine CTA head and neck were performed followingadministration of 100 mL IV OmnipaqueFINDINGS:CTA head:The PICA origin is visualized bilaterally. Short segment moderate narrowingis seen within the mid basilar artery. The superior cerebellar arteries arepatent. The posterior cerebral arteries are patent. No sizable posteriorcom municating arteries are identified.The distal cervical, petrous, cavernous and supraclinoid portions [...] demonstrates a classic 3 vessel branching pattern. Thearchvessel origins are widely patent. Innominate and subclavian arteriesdemonstrate scattered mild atherosclerotic calcification but remain widelypatent.The common carotid arteries are widely patent.There is an abrupt cut offof the left cervical internal carotid artery just distal to the bulb.Atherosclerotic calcification in the right carotid and proximal cervicalinternal carotid artery resulting in short segment moderate (up to 50%)narrowing. The right cervical internal carotid artery is otherwise patent.The vertebral arteries are patent from their subclavian origins through thevertebrobasilar junction.IMPRESSIONComplete occlusion of the left cervical ICA from just distal to the bulbthrough the supraclinoid segment at the level of the ophthalmic artery.Short segment opacification of theleft M1 segment is noted before anabrupt cut off within the mid M1 segment. There is some vascularity notedwithin the distal MCA candelabra likely related to collateral flow over theconvexity.Short segment moderate narrowing of the right proximal cervical ICA (up to50%)Mild to moderate focal narrowing of the mid basilar arteryUnBaylor Scott & White Medical Center – GrapevineCT ANGIOGRAM [id number] 23:15:09Complete occlusion of the left cervical ICA from just distal to the bulbthrough the supraclinoid seg ment at the level of the ophthalmic artery.Short [...] HISTORY: Female 59 years Stroke, follow up COMPARISON:CT head dated 12/24/2019 TECHNIQUE: Routine CTA head and neck were performed followingadministration of 100 mL IV Omnipaque FINDINGS: CTA head: The PICA origin is visualized bilaterally. Short segment moderate narrowingis seen within the mid basilar artery. The superior cerebellar arteries arepatent. The posterior cerebral arteries are patent. No sizable posteriorcommunicating arteries are identified. The distal cervical, petrous, cavernous and supraclinoid portions of theright internal carotidartery are patent. The left internal carotid arteryis completely occluded with reconstitution of a segment of the supraclinoidportion at the level of the ophthalmic artery. A short segment of the M1 segment is opacified before there is an abruptcut off. Attenuated flow is noted within distal M3 andM4 branches. Theanterior cerebral arteries and the right [...] through thevertebrobasilar junction. [facility], Radiant Results Inft User - 12/24/2019 6:16 PM CDTCT ANGIOGRAM NECK, CT ANGIOGRAM HEADHISTORY: Female 59 years Stroke, follow up COMPARISON: CT head dated 12/24/2019TECHNIQUE: Routine CTA head and neck were performed followingadministration of 100 mL IV OmnipaqueFINDINGS:CTA head:The PICA origin is visualized bilaterally. Short segment moderate narrowingis seen within the mid basilar artery. The superior cerebellar arteries arepatent. The posterior cerebral arteries are patent. No sizable posteriorcom municating arteries are identified.The distal cervical, petrous, cavernous and supraclinoid portions [...] demonstrates a classic 3 vessel branching pattern. Thearchvessel origins are widely patent. Innominate and subclavian arteriesdemonstrate scattered mild atherosclerotic calcification but remain widelypatent.The common carotid arteries are widely patent.There is an abrupt cut offof the left cervical internal carotid artery just distal to the bulb.Atherosclerotic calcification in the right carotid and proximal cervicalinternal carotid artery resulting in short segment moderate (up to 50%)narrowing. The right cervical internal carotid artery is otherwise patent.The vertebral arteries are patent from their subclavian origins through thevertebrobasilar junction.IMPRESSIONComplete occlusion of the left cervical ICA from just distal to the bulbthrough the supraclinoid segment at the level of the ophthalmic artery.Short segment opacification of theleft M1 segment is noted before anabrupt cut off within the mid M1 segment. There is some vascularity notedwithin the distal MCA candelabra likely related to collateral flow over theconvexity.Short segment moderate narrowing of the right proximal cervical ICA (up to50%)Mild to moderate focal narrowing of the mid basilar arteryUnBaylor Scott & White Medical Center – GrapevineGLYCOSYLATED HEMOGLOBIN (A1C)2019-12-24 22:32:00* Test Item Value Reference Range Interpretation Comme nts HGB A1C (test code = 4548-4) 5.2 % 4-6 TONE (test code = TONE) %A1C (NGSP) Interpretation (ADA)4.8-5.6 ? ? Normal or (Non-Diabetic Range)5.7-6.4 ? ? Increased Risk (Pre-Diabetic)>6.5 ?Diabetes Indicated Lab Interpretation (test code = 05088-5) Normal [facility] CenterFASTING LIPID PANEL (22022)(TOTAL CHOLESTEROL, TRIGLYCERIDES, HDL)2019-12-24 21:44:00* Test Item Value Reference Range Interpretation Comme nts CHOL (test code = 3166997968) 211 mg/dL 120-200 H HDL (test code = 1108083261) 80 mg/dL >50 HDLC RATIO (test code = 2957535483) See_Comment [Automated iKoa] The system which generated this result transmitted reference range: <=4.5. The reference range was not used to interpret this result as normal/abnormal. TRIG (test code = 3013108513) 109 mg/dL 30-170 LDL CHOL (test code = 53971-9) 109 mg/dL See_Comment [Automated iKoa] The system which generated this result transmitted reference range: <=160. The reference range was not used to interpret this result as normal/abnormal. VLDL (test code = 3375047577) 22 mg/dL 5-60 Lab Interpretation (test code = 52525-2) Abnormal [facility] CenterCOVID-19 (ID NOW RAPID TESTING)2019-12-24 19:46:00* Test Item Value Reference Range Interpretation Comme nts SARS-CoV-2 Rapid ID NOW (test code = 92024-9) Not Detected Not Detected TONE (test code = TONE) ID NOW COVID-19 As say is an isothermal nucleic acid amplification test intended for the qualitative detection of nucleic acid from SARS-CoV-2 viral RNA in nasopharyngeal ([employer]) specimens. It is used under Emergency Use [...] patient testing if clinically indicated. Lab Interpretation (test code = 30982-3) Normal [facility] CenterTHYROID STIMULATING [id number] 19:15:00 * Test Item Value Reference Range Interpretation Comme nts TSH (test code = 2267855828) See_Comment [Automated iKoa] The system which generated this result transmitted reference range: 0.45 - 4.70 mIU/L. The reference range was not used to interpret this result as normal/abnormal. Lab Interpretation (test code = 72670-3) Normal [facility] CenterFREE [id number] 19:13:00* Test Item Value Reference Range Interpretation Comme nts FREE T3 (test code = 0717413058) 3.15 pg/mL 2.77-5.27 Lab Interpretation (test cod e = 32343-5) Normal [facility] CenterFREE [id number] 19:11:00* Test Item Value Reference Range Interpretation Comme nts FREE T4 (test code = 6859478323) See_Comment [Automated messa ge] The system which generated this result transmitted reference range: 0.78 - 2.20 ng/dL:. The reference range was not used to interpret this result as normal/abnormal. Lab Interpretation (test code = 31612-0) Normal [facility] CenterXR CHEST 1 [id number] 19:00:19Chronic emphysematous changes. No pleural effusion, pneumothorax or consolidative process. Preliminary Report Dictated by Resident: Isaiah Elliott MD., have reviewed this study and agree with the abovereport.XR CHEST 1 VW Comparison: 11/14/2018 History: pneumonia Technique: Frontal radiograph Findings: Suboptimal evaluation due to positioning. A nodular opacity in the leftlung base likely represent a nipple shadow.The lungs are hyperinflated without focal consolidation.No pleuraleffusion or pneumothorax is identified. The cardiomediastinal silhouette is normal in size. No acute osseous abnormality is present. [facility], Radiant Results Inft User - 12/24/2019 2:01 PM CDTXR CHEST 1 VWComparison: 11/14/2018History: pneumonia Technique: Frontal radiographFindings:Suboptimalevaluation due to positioning.A nodular opacity in the left lung base likely represent a nipple shadow.The lungs are hyperinflated without focal consolidation. No pleuraleffusion or pneumothorax is identified. The cardiomediastinal silhouette is normal in size. No acute osseous abnormality is present.IMPRESSIONChronic emphysematous changes.No pleural effusion, pneumothorax or consolidative process.Preliminary Report Dictated by Resident: Isaiah Song MD., have reviewedthis study and agree with the abovereport.[facility] CenterTroponin [id number] 18:56:00* Test Item Value Reference Range Interpretation Comme nts TROPONIN I (test code = 0106207194) 0.017 ng/mL See_Comment [Automated message] The system which generated this result transmitted reference range: <=0.034. The reference range was not used to interpret this result as normal/abnormal. TONE (test code = TONE) Equal or Less than 0.034 ng/ml---Normal ?Note: Cardiac troponin begins to [...] patient's use of biotin. ? Lab Interpretation (test code = 89275-3) Normal [facility] CenterSALICYLATE2020-10-10 18:56:00* Test Item Value Reference Range Interpretation Comme nts SALICYLATE (test code = 5135316144) <10 mg/L TONE (test code = TONE) Therapeutic Range: ? Analgesic and Antipyretic Use ? 20-100 mg/L ? ? Anti-Inflammatory Use ? 100-250 mg/L Toxic Range: ? Greater than 300 mg/L [facility] CenterCT HEAD WO [id number] 18:50:08Acute- subacute infarct in the left MCA territory [...] intracranial hemorrhage or mass effect is present. Anacute-subacute infarct involving the left MCA territory is noted withoutevidence of hemorrhagic transformation. The ASPECTS score is estimated otbe 3. ?The salas-white matter differentiation is otherwise preserved. Noadditional parenchymal attenuation abnormality is present. The calvarium and s kull base are unremarkable. The mastoid air cells andvisualized paranasal air sinuses are clear. [facility], Radiant Results Inft User - 12/24/2019 1:51 PM CDTCT HEAD WO CONTRASTHISTORY: Female 59 years Altered mental status (AMS), unclear cause COMPARISON: CT head dated 11/14/2018TECHNIQUE: Routine CT head without contrastFINDINGS:There is slight effacement of the left lateral ventricle. The ventriclesand cerebral sulci are otherwise normal in caliber and configuration. Nohydrocephalus, midline shift or pathological extra axial fluid collectionis present. The basal cisterns are unremarkable.No acuteintracranial hemorrhage or mass effect is present. Anacute-subacute infarct involving the left MCA t erritory is noted withoutevidence of hemorrhagic transformation. The ASPECTS score is estimated otbe 3. The salas-white matter differentiation is otherwise preserved. Noadditional parenchymal attenuation abnormality is present.The calvarium and skull base are unremarkable. The mastoid air cells andvisualized paranasal air sinuses are clear.IMPRESSIONAcute-subacute infarct in the left MCA territorywith an ASPECTS score ofaround 3. No evidence of hemorrhagic transformationThese findings were discussed with Dr. Mclean at the time of reportdictationUnBaylor Scott & White [facility] Center – GrapevineETHANOL2020-10-10 18:50:00* Test Item Value Reference Range Interpretation Comme nts ALCOHOL (test code = 1895451601) <10 mg/dL TONE (test code = TONE) <10 Vbidnext97-933 Toxic>100 Depression of LABELER>400 Fatalities [facility]orted [facility] (NA, K, CL, CO2, GLUCOSE, BUN, CREATININE, CA)2019-12-24 18:45:00* Test Item Value Reference Range Interpretation Comme nts NA (test code = 9097263396) 139 mmol/L 135-145 K (test code = 6708660932) 3.5 mmol/L 3.5-5 CL (test code = 3083765189) 103 mmol/L 98-108 CO2 TOTAL (test code = 8988195594) 27 mmol/L 23-31 AGAP (test code = 8672629506) 2-16 BUN (test code = 2651193277) 16 mg/dL 7-23 GLUCOSE (test code = 8225786750) 127 mg/dL 70-110 H CREATININE (test code = 0131262410) 0.81 mg/dL 0.5-1.04 CALCIUM (test code = 9725564968) 9.9 mg/dL 8.6-10.6 eGFR Calculation (Non-) (test code = 7071375181) mL/min/1.73m2 eGFR Calculation () (test code = 6417654519) mL/min/1.73m2 TONE (test code = TONE) Association of [...] or abnormalities in imaging tests). Lab Interpretation (test code = 12679-9) Abnormal [facility] CenterHepatic Function Panel (ALB, T.PRO, BILI T, BU/BC, ALT, AST, ALK PHOS)2019-12-24 18:45:00* Test Item Value Reference Range Interpretation Comme nts TOTAL BILI (test code = 6332740741) 0.7 mg/dL 0.1-1.1 BILI UNCON (test code = 3319338797) 0.8 mg/dL 0.1-1.1 BILI CONJ (test code = 1918284672) 0.0 mg/dL 0-0.3 T PROTEIN (test code = 5604590901) 7.8 g/dL 6.3-8.2 ALBUMIN (test code = 2383290662) 4.2 g/dL 3.5-5 ALK PHOS (test code = 1307573987) 66 U/L 34-122 ALTv (test code = 1742-6) 20 U/L 5-35 AST(SGOT) (test code = 0373139374) 32 U/L 13-40 Lab Interpretation (test cod e = 26450-8) Normal [facility] CenterMAGNESIUM2020-10-10 18:45:00* Test Item Value Reference Range Interpretation Comme nts MAGNESIUM (test code = 2602017069) 1.9 mg/dL 1.7-2.4 Lab Interpretation (test cod e = 10117-7) Normal [facility] CenteraPTT2020-10-10 18:43:00* Test Item Value Reference Range Interpretation Comme nts APTT Patient (test code = 3173-2) See_Comment [Automated message] The system which generated this result transmitted reference range: 23 - 38 Seconds. The reference range was not used to interpret this result as normal/abnormal. TONE (test code = TONE) The [facility] patient population mean normal value for aPTT is 30 seconds. Lab Interpretation (test code = 51528-9) Normal [facility] CenterADC / [facility] - DRUG SCREEN [id number] 18:43:00* Test Item Value Reference Range Interpretation Comme nts BENZO U (test code = 4651872522) Negative Negative NAOMI U (test code = 3603044082) Negative Negative AMPHET (test code = 3780032762) Negative Negative THC (test code = 4809779692) Presumptive Positive Negative A Confirmation of Presumptive Positive THC result requires physician order. METHADONE (test code = 4219018721) Negative Negative Meth U (test code = 2195272263) Negative Negative OPIATES (test code = 8798766494) Negative Negative Cocaine Metabolite (test code = 2071758131) Presumptive Positive Negative A PROPOXY (test code = 5546290702) Negative Negative Tric U (test code = 0973556570) Negative Negative PCP (test code = 5008025729) Negative Negative OXYCOD (test code = 5753184293) Negative Negative TONE (test code = TONE) Urine Drug Cutoff Ranges Benzodiazepines: ? ? 150 ng/mLBarbiturates : [...] (e.g., employment testing, legal testing). Lab Interpretation (test code = 15025-3) Abnormal [facility] CenterProthrombin Time (PT) / [id number] 18:41:00 * Test Item Value Reference Range Interpretation Comme nts PROTIME PATIENT (test code = 5964-2) See_Comment [Automated Tweet[employer]a AGELON ?] The system which generated this result transmitted reference range: 12.0 - 14.7 Seconds. The reference range was not used to interpret this result as normal/abnormal. INR (test code = 6301-6) Normal INR <1.1; Warfarin Therapeutic range 2.0 to 3.0 or 2.5 to 3.5, depending upon the indications. Lab Interpretation (test code = 61144-0) Normal [facility] CenterUrinalysis2020-10-10 18:37:00* Test Item Value Reference Range Interpretation Comme nts APPEARANCE (test code = 1985569334) Clear Clear COLOR (test code = 5088187308) Yellow Yellow PH (test code = 6389443074) 4.8-8.0 SP GRAVITY (test code = 8943628924) 1.003-1.030 GLU U QUAL (test code = 8444984200) Normal Normal BLOOD (test code = 0947579043) 2+ Negative A KETONES (test code = 2983348635) 5 mg/dL Negative A PROTEIN (test code = 2887-8) 100 mg/dL Negative A UROBILIN (test code = 5181286104) Normal Normal BILIRUBIN (test code = 6912094450) Negative Negative NITRITE (test code = 0298633207) Negative Negative LEUK LOGAN (test code = 2152407051) Negative Negative RBC/HPF (test code = 8232808838) See_Comment H [Automated messa ge] The system which generated this result transmitted reference range: 0 - 3 HPF. The reference range was not used to interpret this result as normal/abnormal. WBC/HPF (test code = 7579516017) See_Comment [Automated messa ge] The system which generated this result transmitted reference range: 0 - 5 HPF. The reference range was not used to interpret this result as normal/abnormal. BACTERIA (test code = 8802415208) Negative Negative MUCOUS (test code = 7863742998) Slight Negative LPF A SQ EPITH (test code = 8716523831) <1 HPF GRAN CASTS (test code = 5561435896) See_Comment [Automated messa ge] The system which generated this result transmitted reference range: <=1 LPF. The reference range was not used to interpret this result as normal/abnormal. Lab Interpretation (test code = 17205-4) Abnormal [facility] CenterCB with [id number] 18:30:00* Test Item Value Reference Range Interpretation Comme nts WBC (test code = 6690-2) See_Comment H [Automated message] The system which generated this result transmitted reference range: 4.30 - 11.10 10*3/?L. The reference range was not used to interpret this result as normal/abnormal. RBC (test code = 789-8) See_Comment [Automated message] The system which generated this result transmitted reference range: 3.93 - 5.25 10*6/?L. The reference range was not used to interpret this result as normal/abnormal. HGB (test code = 718-7) 16.7 g/dL 11.6-15 H HCT (test code = 4544-3) 49.3 % 35.7-45.2 H MCV (test code = 787-2) 93.9 fL 80.6-95.5 MCH (test code = 785-6) 31.8 pg 25.9-32.8 MCHC (test code = 786-4) 33.9 g/dL 31.6-35.1 RDW-SD (test code = 67738-2) 43.6 fL 39-49.9 RDW-CV (test code = 788-0) 12.6 % 12-15.5 PLT (test code = 777-3) See_Comment [Automated message] The system which generated this result transmitted reference range: 166 - 358 10*3/?L. The reference range was not used to interpret this result as normal/abnormal. MPV (test code = 82535-9) 10.5 fL 9.5-12.9 NRBC/100 WBC (test code = 1604976421) See_Comment [Automated message] The system which generated this result transmitted reference range: 0.0 - 10.0 /100 WBCs. The reference range was not used to interpret this result as normal/abnormal. NRBC x10^3 (test code = 0039953322) <0.01 See_Comment [Automated message] The system which generated this result transmitted reference range: 10*3/?L. The reference range was not used to interpret this result as normal/abnormal. GRAN MAT (NEUT) % (test code = 770-8) 82.1 % IMM GRAN % (test code = 7651034365) 0.40 % LYMPH % (test code = 736-9) 10.5 % MONO % (test code = 5905-5) 6.7 % EOS % (test code = 713-8) 0.1 % BASO % (test code = 706-2) 0.2 % GRAN MAT x10^3(ANC) (test code = 0648567615) 10.11 10*3/uL 1.88-7.09 H IMM GRAN x10^3 (test code = 1770989691) 0.05 10*3/uL 0-0.06 LYMPH x10^3 (test code = 731-0) 1.29 10*3/uL 1.32-3.29 L MONO x10^3 (test code = 742-7) 0.82 10*3/uL 0.33-0.92 EOS x10^3 (test code = 711-2) <0.03 0.03-0.39 L BASO x10^3 (test code = 704-7) <0.03 0.01-0.07 Lab Interpretation (test code = 11651-2) Abnormal [facility] CenterAC PANEL 21 + LACTIC [id number] 17:49:00* Test Item Value Reference Range Interpretation Comme nts PH (test code = 1462689324) 7.32-7.42 H PCO2 GAMA (test code = 0951684409) See_Comment L [Automated messa ge] The system which generated this result transmitted reference range: 41 - 51 mmHg. The reference range was not used to interpret this result as normal/abnormal. PO2 GAMA (test code = 2657992096) See_Comment [Automated messa ge] The system which generated this result transmitted reference range: 25 - 40 mmHg. The reference range was not used to interpret this result as normal/abnormal. HCO3 GAMA (test code = 8487737021) See_Comment [Automated messa ge] The system which generated this result transmitted reference range: 24 - 28 mEq/L. The reference range was not used to interpret this result as normal/abnormal. AC VBE(BEAKER) (test code = 6889598776) mEq/L THB GAMA (test code = 0876753264) 17.2 g/dL 12-16 H %O2HB GAMA (test code = 0304572073) 61.0 % 52-63 %COHB GAMA (test code = 1928190960) 1.4 % 0-1.5 %METHB AGMA (test code = 1775043967) 0.3 % 0.4-1.5 L VOL%O2 GAMA (test code = 3674499822) 14.7 % 6-12 H NA (test code = 8921680253) 142 mmol/L 135-145 K+ (test code = 4111103062) 3.7 mmol/L 3.5-5 AC CA IONZ (test code = 9447154176) 4.60 mg/dL 4.5-5.3 GLUCOSE (test code = 0249048116) 129 mg/dL 70-110 H LACTIC ACID (test code = 0566812413) 2.01 mmol/L Lab Interpretation (test code = 75028-5) Abnormal [facility] CenterTHYROID STIMULATING [id number] 22:36:00 * Test Item Value Reference Range Interpretation Comme nts TSH (test code = 2525400901) See_Comment [Automated Tweetwalla ge] The system which generated this result transmitted reference range: 0.45 - 4.70 mIU/L. The reference range was not used to interpret this result as normal/abnormal. Lab Interpretation (test code = 11188-2) Normal [facility] CenterXR CHEST 1 [id number] 22:14:51No acute cardiopulmonary abnormality. Ivett Alcocer MD., have reviewed this study and agree with the abovereport.EXAM: XR CHEST 1 VW HISTORY: 58 years-old Female presenting with ams COMPARISON: chest radiographs?07/22/2015 FINDINGS: The lungs are hyperexpanded, but otherwise clear without focalconsolidation.?No pleural effusion or pneumothorax. The cardiomediastinal silhouette is normal. No acute bony abnormality. Widening of the right acromioclavicular jointlikely representing AC joint separation. [facility], Radiant Results Inft User - 11/14/2018 5:16 PM CDTEXAM: XR CHEST 1 VWHISTORY: 58 years-old Female presenting with ams COMPARISON: chest radiographs 07/22/2015FINDINGS:The lungs are hyperexpanded, but otherwise clear without focalconsolidation. No pleural effusion or pneumothorax.The cardiomediastinal silhouette is normal.No acute bony abnormality. Widening of the right acromioclavicular jointlikely representing AC joint separation.IMPRESSIONNo acute cardiopulmonary abnormality. Kiki Alcocer MD., have reviewed this study and agree with the abovereport.[facility] CenterACETAMINOPHEN2019-09-01 22:08:00* Test Item Value Reference Range Interpretation Comme nts ACETAMINOP (test code = 6196070594) <10.0 10-30 L TONE (test code = TONE) Toxic: Greater mariana n 200 ug/mL @ 4 hour post ingestion or greater than 50 ug/mL @ 12 hour post ingestion Lab Interpretation (test code = 99070-7) Abnormal [facility] CenterETHANOL2019-09-01 22:08:00* Test Item Value Reference Range Interpretation Comme nts ALCOHOL (test code = 8156762872) <10 mg/dL TONE (test code = TONE) <10 Voljzywi50-280 Toxic>100 Depression of LABELER>400 Fatalities Reported [facility] CenterCOM. METABOLIC PANEL (25905)2018-11-14 22:05:00* Test Item Value Reference Range Interpretation Comme nts NA (test code = 6919695445) 142 mmol/L 135-145 K (test code = 6602317229) 4.3 mmol/L 3.5-5 CL (test code = 9293862304) 111 mmol/L 98-108 H CO2 TOTAL (test code = 2927273824) 24 mmol/L 23-31 AGAP (test code = 9889378979) 2-16 BUN (test code = 2615628337) 21 mg/dL 7-23 GLUCOSE (test code = 4050714345) 91 mg/dL 70-110 CREATININE (test code = 0119848379) 0.92 mg/dL 0.5-1.04 TOTAL BILI (test code = 4213209797) 0.2 mg/dL 0.1-1.1 CALCIUM (test code = 1401432957) 9.0 mg/dL 8.6-10.6 T PROTEIN (test code = 3181348368) 6.2 g/dL 6.3-8.2 L ALBUMIN (test code = 0499389808) 3.5 g/dL 3.5-5 ALK PHOS (test code = 1455759139) 48 U/L 34-122 ALT(SGPT) (test code = 6743865047) 14 U/L 9-51 AST(SGOT) (test code = 4724025400) 19 U/L 13-40 eGFR Calculation (Non-) (test code = 0194677186) mL/min/1.73m2 eGFR Calculation () (test code = 3675137281) mL/min/1.73m2 TONE (test code = TONE) Association of [...] or abnormalities in imaging tests). Lab Interpretation (test code = 83689-8) Abnormal [facility] CenterCT HEAD WO [id number] 21:52:08No acute findings. * * * * [...] The extracranial tissues demonstrate no acute findings. [facility], Radiant Results Inft User - 11/14/2018 4:54 PM CDT* * * * * * * * ORIGINAL REPORT * * * * * * * *HISTORY:Alteredmental status (AMS), unclear cause TECHNIQUE: Noncontrast head CT was performed.COMPARISON:07/22/2015FINDINGS: Exam is motion degraded.The ventricles and sulci are appropriate for patient's age.There is no midline shift. The basal cisterns are preserved. No largevascular territory infarction, intracranial hemorrhage or mass effect isseen.The extracranial tissues demonstrate no acute findings.IMPRESSIONNo acute findings.[facility] / [facility] - DRUG SCREEN TRIAGE 2018-11-14 21:48:00* Test Item Value Reference Range Interpretation Comme nts BENZO U (test code = 2031264879) Negative Negative NAOMI U (test code = 8838607352) Negative Negative AMPHET (test code = 5620800072) Negative Negative THC (test code = 0153857361) Presumptive Positive Negative A Confirmation of Presumptive Positive THC result requires physician order. METHADONE (test code = 4707453843) Negative Negative Meth U (test code = 3061083433) Negative Negative OPIATES (test code = 5154693101) Negative Negative Cocaine Metabolite (test code = 8761941183) Presumptive Positive Negative A PROPOXY (test code = 6933927581) Negative Negative Tric U (test code = 1042991815) Negative Negative PCP (test code = 7411317168) Negative Negative OXYCOD (test code = 2580912763) Negative Negative TONE (test code = TONE) Urine Drug Cutoff RangesBenzodiazep yong: ? ? 150 ng/mLBarbiturates : [...] (e.g., employment testing, legal testing). Lab Interpretation (test code = 12283-4) Abnormal [facility] CenterURINALYSIS2019-09-01 21:47:00* Test Item Value Reference Range Interpretation Comme nts APPEARANCE (test code = 4208758919) Clear Clear COLOR (test code = 7936242315) Yellow Yellow PH (test code = 1427884243) 4.8-8.0 SP GRAVITY (test code = 9139370214) >=1.030 1.003-1.030 GLU U QUAL (test code = 3372046702) Negative Negative BLOOD (test code = 6355912076) Small Negative A KETONES (test code = 4534537330) Negative Negative PROTEIN (test code = 2887-8) 100 mg/dL Negative A UROBILIN (test code = 0619180096) 0.2 mg/dL See_Comment [Automated messa ge] The system which generated this result transmitted reference range: 0-1.0 mg/dL. The reference range was not used to interpret this result as normal/abnormal. BILIRUBIN (test code = 9968652640) Negative Negative NITRITE (test code = 4026995159) Negative Negative LEUK LOGAN (test code = 0053980837) Negative Negative RBC/HPF (test code = 7288666299) See_Comment H [Automated messa ge] The system which generated this result transmitted reference range: 0 - 3 HPF. The reference range was not used to interpret this result as normal/abnormal. WBC/HPF (test code = 1733445394) See_Comment H [Automated messa ge] The system which generated this result transmitted reference range: 0 - 5 HPF. The reference range was not used to interpret this result as normal/abnormal. BACTERIA (test code = 8204817402) Many Negative A Lab Interpretation (test code = 60205-2) Abnormal [facility] WITH [id number] 21:36:00* Test Item Value Reference Range Interpretation Comme nts WBC (test code = 6690-2) See_Comment [Automated messa ge] The system which generated this result transmitted reference range: 4.30 - 11.10 10*3/?L. The reference range was not used to interpret this result as normal/abnormal. RBC (test code = 789-8) See_Comment [Automated messa ge] The system which generated this result transmitted reference range: 3.93 - 5.25 10*6/?L. The reference range was not used to interpret this result as normal/abnormal. HGB (test code = 718-7) 13.9 g/dL 11.6-15 HCT (test code = 4544-3) 41.6 % 35.7-45.2 MCV (test code = 787-2) 93.5 fL 80.6-95.5 MCH (test code = 785-6) 31.2 pg 25.9-32.8 MCHC (test code = 786-4) 33.4 g/dL 31.6-35.1 RDW-SD (test code = 71841-7) 43.8 fL 39-49.9 RDW-CV (test code = 788-0) 12.7 % 12-15.5 PLT (test code = 777-3) See_Comment [Automated messa ge] The system which generated this result transmitted reference range: 166 - 358 10*3/?L. The reference range was not used to interpret this result as normal/abnormal. MPV (test code = 43818-9) 10.3 fL 9.5-12.9 NRBC/100 WBC (test code = 8965498830) See_Comment [Automated FittingRoom ssage] The system which generated this result transmitted reference range: 0.0 - 10.0 /100 WBCs. The reference range was not used to interpret this result as normal/abnormal. NRBC x10^3 (test code = 7158063854) <0.01 See_Comment [Automated messa ge] The system which generated this result transmitted reference range: 10*3/?L. The reference range was not used to interpret this result as normal/abnormal. GRAN MAT (NEUT) % (test code = 770-8) 74.7 % IMM GRAN % (test code = 7629486780) 0.30 % LYMPH % (test code = 736-9) 14.7 % MONO % (test code = 5905-5) 6.4 % EOS % (test code = 713-8) 3.5 % BASO % (test code = 706-2) 0.4 % GRAN MAT x10^3(ANC) (test code = 5486799865) 5.27 10*3/uL 1.88-7.09 IMM GRAN x10^3 (test code = 9401722444) <0.03 0-0.06 LYMPH x10^3 (test code = 731-0) 1.04 10*3/uL 1.32-3.29 L MONO x10^3 (test code = 742-7) 0.45 10*3/uL 0.33-0.92 EOS x10^3 (test code = 711-2) 0.25 10*3/uL 0.03-0.39 BASO x10^3 (test code = 704-7) 0.03 10*3/uL 0.01-0.07 Lab Interpretation (test code = 25985-2) Abnormal [facility] CenterHBV BY REAL-TIME [id number] 19:39:00* Test Item Value Reference Range Interpretation Comme nts HBV PCR (test code = 29317-9) Not Detected Not Detected TONE (test code = TONE) The test uses [employer] Real Time HBV assay. It is FDA approved for plasma and serum samples to measure HBV DNA for use as an aid in the management of HBV-infected patients undergoing antiviral therapy. The FDA approved result ranges of the test are:? Not Detected <10?IU/mL,?<1.00?Log IU/mL 10 - 10^9?IU/mL,? 1.00-9.00? Log IU/mL >10^9?IU/mL,?>9.00?Log IU/mL [facility] CenterVITAMIN B1 (THIAMINE), WHOLE [id number] 02:53:00* Test Item Value Reference Range Interpretation Comme [facility] Vitamin B1, Whole Blood (test code = 72475-0) 124 nmol/L 70-180 INTERPRETIVE INF ORMATION: Vitamin B1, Whole Blood This assay measures the concentration of thiamine diphosphate (TDP), the primary active form of vitamin B1. Approximately 90 percent of vitamin B1 present in whole blood is TDP. Thiamine and thiamine monophosphate, which comprise the remaining 10 percent, are not measured. Test developed and characteristics determined by [employer]. See Compliance Statement B: [employer]com/CSPerformed by [employer],[address] [place] [address] hms.[employer]c Leroy lafleur MD, Lab. Sewing InspectorDell Children's Medical CenterVITAMIN B6, [id number] 20:15:00* Test Item Value Reference Range Interpretation Comme nts VIT B6 (test code = 2206) 27.1 nmol/L 20.0-125.0 INTERPRETIVE INF ORMATION: Vitamin B6 (Pyridoxal 5-Phosphate) Pyridoxal 5'-phosphate measured in a specimen collected following an 8-hour or overnight fast accurately indicates vitamin B6 nutritional status. Non-fasting specimen concentration reflects recent vitamin intake. Test developed and characteristics determined by [facility]. See Compliance Statement B: [employer]/CSPerformed by [employer],[address], [facility] [place] [address] got.[employer] Leroy garcia MD, Lab. Sewing InspectorDell Children's Medical CenterVITAMIN D, [id number] 12:39:00* Test Item Value Reference Range Interpretation Comme [facility] VIT D 25OH (test code = 9062953830) 51 ng/mL 25-80 25-Hydroxy D3 (test code = 9777800603) 50.8 ng/mL 25-Hydroxy D2 (test code = 3195125284) <2.5 ng/mL TONE (test code = TONE) Test developed and characteristics determined by [facility] Laboratory Services. [facility] CenterHCV BY [id number] 12:15:00* Test Item Value Reference Range Interpretation Comme [facility] HCV by Real-Time PCR (test code = 4393541173) Not Detected Not detected IU/mL TONE (test code = TONE) [employer] m2000 RealTime HCV reverse inspector outside steam distribution-polymerase chain reaction(RT-PCR) assay is used. It is [...] 0 IU/mL,>100,000,000 IU/mL: >upper limit of quantification. [facility] CenterGC & CHLAMYDIA AMPLIFIED [id number] 17:06:00* Test Item Value Reference Range Interpretation Comme [facility] Lab Interpretation (test cod e = 99225-8) Normal [facility] CenterAD OR LIV KHAN - [id number] 03:30:00* Test Item Value Reference Range Interpretation Comme nts Lab Interpretation (test cod e = 21357-3) Normal [facility] CenterHIGH SENSITIVITY [id number] 19:14:00* Test Item Value Reference Range Interpretation Comme nts HS CRP (test code = 0994991453) 0.02 mg/dL <0.74 Lab Interpretation (test cod e = 89356-2) Normal [facility] CenterHIV 1/2 AG-AB WITH [id number] 09:21:00* Test Item Value Reference Range Interpretation Comme nts HIV Semi-quantitative (test code = 20390-1) Negative Negative TONE (test code = TONE) Non-reactive for HIV-1 antigen and HIV-1/HIV-2 antibodies.?No laboratory evidence of HIV infection.?Repeat in 2-4 weeks if acute HIV infection is suspected. [facility] CenterHCV [id number] 07:15:00* Test Item Value Reference Range Interpretation Comme [facility] HCV Semi-Quantitative (test code = 43205-1) [facility] CenterHEPATITIS B SURFACE [id number] 07:15:00* Test Item Value Reference Range Interpretation Comme nts HBsAB (test code = 6440409878) Negative HBsAb Semi-Quantitative (test code = 0143189939) mIU/mL TONE (test code = TONE) Interpretation:?Hepatitis B Surface Antibody? ? Negative - Patient is considered to be not immune to infection with HBV.? Positive - Anti-HBs detected at greater than or equal to 12 mIU/mL.?Patient is considered to be immune to infection with HBV.? [facility] CenterHEPATITIS B CORE ANTIBODY [id number] 07:05:00* Test Item Value Reference Range Interpretation Comme [facility] HBCM Semi-Quantitative (test code = 46434-9) TONE (test code = TONE) Biotin has been reported to cause a negative bias, interpret results relative to patient's use of biotin. [facility] SURFACE [id number] 06:58:00 * Test Item Value Reference Range Interpretation Comme [facility] HBsAg Semi-Quantitative (lokesh t code = 5195-3) [facility]IT[facility] B12, [id number] 00:42:00* Test Item Value Reference Range Interpretation Comme nts VIT B12 (test code = 6118279702) 362 pg/mL 240-930 TONE (test code = TONE) Biotin has been reported to cause a positive bias, interpret results relative to patient's use of biotin. Lab Interpretation (test code = 09780-5) Normal [facility] 00:42:00* Test Item Value Reference Range Interpretation Comme nts FOLATE SER (test code = 4758178525) 8.1 ng/mL 3-20 Lab Interpretation (test cod e = 45064-2) Normal [facility]OM[facility]STEINE2019-07-19 23:40:00* Test Item Value Reference Range Interpretation Comme nts Homocysteine (test code = 5992169651) 11.9 umol/L 4.7-12.6 Lab Interpretation (test cod e = 11496-3) Normal [facility] CenterCBC WITH [id number] 19:42:00* Test Item Value Reference Range Interpretation Comme nts WBC (test code = 6690-2) See_Comment [Automated Tweetwalla ge] The system which generated this result transmitted reference range: 4.30 - 11.10 10*3/?L. The reference range was not used to interpret this result as normal/abnormal. RBC (test code = 789-8) See_Comment H [Automated Tweetwalla ge] The system which generated this result transmitted reference range: 3.93 - 5.25 10*6/?L. The reference range was not used to interpret this result as normal/abnormal. HGB (test code = 718-7) 16.7 g/dL 11.6-15 H HCT (test code = 4544-3) 50.5 % 35.7-45.2 H MCV (test code = 787-2) 93.9 fL 80.6-95.5 MCH (test code = 785-6) 31.0 pg 25.9-32.8 MCHC (test code = 786-4) 33.1 g/dL 31.6-35.1 RDW-SD (test code = 82485-3) 45.2 fL 39-49.9 RDW-CV (test code = 788-0) 13.2 % 12-15.5 PLT (test code = 777-3) See_Comment [Automated messa ge] The system which generated this result transmitted reference range: 166 - 358 10*3/?L. The reference range was not used to interpret this result as normal/abnormal. MPV (test code = 98886-1) 10.3 fL 9.5-12.9 NRBC/100 WBC (test code = 4924061215) See_Comment [Automated FittingRoom ssage] The system which generated this result transmitted reference range: 0.0 - 10.0 /100 WBCs. The reference range was not used to interpret this result as normal/abnormal. NRBC x10^3 (test code = 7839432160) <0.01 See_Comment [Automated Tweetwalla ge] The system which generated this result transmitted reference range: 10*3/?L. The reference range was not used to interpret this result as normal/abnormal. GRAN MAT (NEUT) % (test code = 770-8) 61.4 % IMM GRAN % (test code = 4892964584) 0.80 % LYMPH % (test code = 736-9) 27.8 % MONO % (test code = 5905-5) 4.9 % EOS % (test code = 713-8) 4.6 % BASO % (test code = 706-2) 0.5 % GRAN MAT x10^3(ANC) (test code = 1484046224) 5.39 10*3/uL 1.88-7.09 IMM GRAN x10^3 (test code = 1027698814) 0.07 10*3/uL 0-0.06 H LYMPH x10^3 (test code = 731-0) 2.44 10*3/uL 1.32-3.29 MONO x10^3 (test code = 742-7) 0.43 10*3/uL 0.33-0.92 EOS x10^3 (test code = 711-2) 0.40 10*3/uL 0.03-0.39 H BASO x10^3 (test code = 704-7) 0.04 10*3/uL 0.01-0.07 Lab Interpretation (test code = 73174-3) Abnormal [facility] CenterMYOCARDIAL STRESS [id number] 23:27:00 *.*.*.*.*.*.*.*.*.*.*.*.*.*FINAL*.*.*.*.*.*.*.*.*.*.*.*.*.*.*Pharmacological myocardial perfusion imaging report Type: Technetium 99 labeled sestamibi stress/rest single isotope SPECTimaging with Regadenoson pharmacological stress and gated SPECT imaging. Indication: Chest Pain Clinical history A 54 YEAR OLD FEMALE SP PCI OF PLAD ON 08/22/13 NOW WITHCHEST PAIN. Procedure: Pharmacological stress test was performed with a bolus dose of 0.4 mg ofRegadenoson. The heart rate was at baseline 50 and at stress 81. The bloodpressure was 107/72 at rest and ?98/64 at stress. Gated myocardialperfusion imaging was performed post stress following the injection of 15millicuries of technetium labeled sestamibi and at rest following theinjection of 45 millicuries of technetium labeled sestamibi and Findings: The overall quality of the study was adequate . SPECT images demonstrate moderate in size, mild inseverity, reversibledefect in the mid to basal inferior wall extending to the apex. There isalso a small in size, moderate in severity, reversible mid anterior walldefect. Gated SPECT images demonstrate mild hypokinesis of the distal inferiorwall during stress Resting EKG revealed NSR, LBBB, HR 47,?stress EKG showed NSR, LBBB, HR81. Rest Values: ?EDV = 41 mL; ESV = 7 mL; EF = 84%. Stress Values:?EDV = 67 mL; ESV = 17 mL; EF = 75%. EDGAR GONZALEZ MD ?Personally interpreted by: CELESTE BOURNE MD /Signed/ CELESTE BOURNE MDUnBaylor Scott [facility] Notes Date/Time Note Provider Source 2022-12-12 14:05:00 [id number] [address] PATIENT NAME: FUNMILAYO ALLAN ADMIT DATE: 11/30/22 ACCOUNT NO: [id number] ROOM NO: Z.632 AGE: 62 REPORT TYPE: 360 - QUERY RESPONSE DOCUMENT SEX: F ADMITTING PHYSICIAN:Tre Jamil MD ATTENDING PHYSICIAN:Tre Jamil MD Provider Query QUERY TEXT: Condition Nutritional Status 360MD Query related questions should be directed to:[facility] Coding query helpline Based on your clinical judgment, please clarify the condition(s) that represent(s) the clinical indicators listed below. The patient's Clinical Indicators include: Admission Health History + 12/01/2022 (2) Malnutrition screen tool score: 2 - Malnutrition risk BMI calculated: 30.5 Hospitalist History and Physical 11/30/2022 (1) Laboratory Tests: Albumin (3.5 - 5.0 G/DL) 4.6 Hospitalist History and Physical 11/30/2022 (1) Laboratory Tests: Total Protein (6.3 - 8.2 G/DL) 8.5 H Options provided: -- Mild protein-calorie/protein-energy malnutrition, Please specify supporting clinical documentation for severity (e.g. BMI, serum albumin, total lymphocyte count, CD4+, etc.) as well as supporting conditions such as disorders that affect GI function, wasting disorders, or metabolic conditions. -- Moderate protein-calorie/protein-energy malnutrition, Please specify supporting clinical documentation for severity (e.g. BMI, serum albumin, total lymphocyte count, CD4+, etc.) as well as supporting conditions such as disorders that affect GI function, wasting disorders, or metabolic conditions. -- Severe protein-calorie/protein-energy malnutrition, Please specify supporting clinical documentation for severity (e.g. BMI, serum albumin, total lymphocyte count, CD4+, etc.) as well as supporting conditions such as disorders that affect GI function, wasting disorders, or metabolic conditions. -- Unspecified protein-calorie/protein-energy malnutrition -- Failure to thrive -- Weight Loss -- Underweight -- Other - I will add my own diagnosis -- Dismiss - Not applicable / Not valid -- Dismiss - Clinically unable to determine / Unknown -- Assign to another provider QUERY RESPONSE: Malnutrition not confirmed Query created by: Stefan Hernandez on 12/09/2022 11:50 PM at 1405 PATIENT NAME: FUNMILAYO ALLAN [facility] 2022-12-09:09:00 [id number] [place] [address] PATIENT NAME: FUNMILAYO ALLAN ADMIT DATE: 11/30/22 ACCOUNT NO: [id number] ROOM NO: Z.632 AGE: 62 REPORT TYPE: 360 - QUERY RESPONSE DOCUMENT SEX: F ADMITTING PHYSICIAN:Tre Jamil MD ATTENDING PHYSICIAN:Tre Jamil MD Provider Query QUERY TEXT: Clarification Infectious Status POA 360MD Query related questions should be directed to:[facility] Coding query helpline Based on your clinical judgment, please clarify the condition(s) that represent(s) the clinical indicators listed below and if the condition(s) are present on admission (POA). The following definitions are provided based on industry literature and in collaboration with [facility] Clinical Services Group for your reference only: --Localized Infection - An infection that affects only one organ or body part (e.g., UTI, Pneumonia) --Bacteremia - Nonspecific laboratory finding of bacteria in the blood --Sepsis - A presumed or confirmed systemic response to infectious process with >2 clinical indicators such as: Temperature >38.3C or <36.0C, tachycardia, > 20 respiratory rate, WBC >12,000 or < 4,000 or > 10% bands --Severe Sepsis - Sepsis with additional clinical indicators such as Organ failure with any of the following: systolic BP < 90 or MAP < 65 or SBP decrease more 40 mm Hg from last recorded SBP considered normal for patient, Creatinine > 2.0, urine output < 0.5 ml/kg/hour for 2 hours, Bilirubin > 2 mg/dL, platelet count < 100,000, INR > 1.5, PTT > 60 sec, lactate > 2 mmol/L --Septic Shock - Severe Sepsis with Lactic acid > 4 mmol/L or persistent hypotension The patient's Clinical Indicators include: ED PHYSICIAN RECORD 11/29/2022 (1) Laboratory Tests: WBC (3.8 - 9.8 K/MM3) 11.2 H Hospitalist History and Physical 11/30/2022 (1) Laboratory Tests: Lactic Acid (0.7 - 2.1 MMOL/L) 2.2 H Hospitalist Discharge Summary 12/02/2022 (1) Problem List/A P: AMS (altered mental status) Hospitalist Discharge Summary 12/02/2022 (1) Hospital course: She initially presented with a white count of 11.2 and tachycardia. cefTRIAXone 1,000 mg Inj-MAR Options provided: -- Sepsis, Please specify POA status (i.e., Y=Yes, N=No, W=Unable to clinically determine) and causative organism if known. -- Severe Sepsis, Please specify POA status (i.e., Y=Yes, N=No, W=Unable to clinically determine) and causative organism if known. -- Severe Sepsis with septic shock, Please specify POA status (i.e., Y=Yes, N=No, W=Unable to clinically determine) and causative organism if known. -- Localized infection, Please specify the infection and POA status (i.e., Y=Yes, N=No, W=Unable to clinically determine). -- Other - I will add my own diagnosis -- Dismiss - Not applicable / Not valid -- Dismiss - Clinically unable to determine / Unknown -- Assign to another provider QUERY RESPONSE: The patient has localized infection. Y Query created by: Stefan Hernandez on 12/04/2022 3:26 AM at 1509 PATIENT NAME: FUNMILAYO ALLAN [facility] 2022-12-02 14:39:00 [facility] ([facility]) Hospitalist Discharge Summary REPORT#:[id number] REPORT STATUS: Signed DATE:12/02/22 TIME: 143 PATIENT: FUNMILAYO ALLAN UNIT #: [id number] ROOM/BED: [address] : [birth year] AGE: 62 SEX: F ATTEND: Tre Jamil MD ADM AUTHOR: Ricardo Ricci MD R2 * ALL edits or amendments must be made on the electronic/computer document * Ricardo Ricci 12/02/22 1439: General Information Problem List/A P: 1. Dyslipidemia 2. Primary hypertension 3. GERD with esophagitis 4. Chronic atrial fibrillation, unspecified 5. Dysphagia 6. Chronic ischemic heart disease, unspecified 7. Acute metabolic encephalopathy 8. UTI (urinary tract infection) 9. Paroxysmal A-fib 10. Recurrent falls 11. Unspecified mood [affective] disorder 12. Expressive aphasia 13. AMS (altered mental status) Date of admission: Observation Start Date: 11/30/22 Date of admission: 11/30/22 Discharge date: 12/02/22 Discharge diagnosis: See list above Hospital course: 62 year-old female with multiple medical problems including prior stroke with left sided residual deficits and expressive aphasia admitted to the hospital for reported altered mental status. Patient was brought to the ED of this hospital from her facility over the weekend with minimal history of her illness. Multiple attempts were made to contact the patient's facility or next of kin but there were initially no answers. Her UA was found to show evidence of a UTI and she was treated with ceftriaxone. She initially presented with a white count of 11.[address] and CT of the abdomen and pelvis were obtained which did not show signs of acute disease. Eventually, [facility] were able to be contacted and confirmed that the patient is minimally verbal with expressive aphasia. She was determined to be at her baseline and discharged back to her facility with three additional days of oral antibiotics. Pt. condition on discharge: improved, stable Allergies: Allergies: No Known Allergies (Coded, 11/29/22) Med Rec Med Rec Discharge meds: Stop taking the following medications: SENNOSIDES (SENNA) 8.6 MG TAB 17.2 MILLIGRAM ORAL DAILY. Continue taking these medications: DOCUSATE SODIUM (COLACE) 100 MG CAP 100 MILLIGRAM ORAL TWICE DAILY. DULoxetine DR (CYMBALTA) 60 MG CAP.DR 60 MILLIGRAM ORAL BEDTIME. DULoxetine DR (CYMBALTA) 30 MG CAP.DR 30 MILLIGRAM ORAL BEDTIME. FAMOTIDINE (PEPCID) 20 MG TAB 20 MILLIGRAM ORAL TWICE DAILY. LACTOBACILLUS ACIDOPHILUS (PROBIOTIC ACIDOPHILUS) 1 CAP CAP 1 CAPSULE ORAL DAILY. ATORVASTATIN (LIPITOR) 40 MG TAB 40 MILLIGRAM ORAL BEDTIME. LISINOPRIL (ZESTRIL) 40 MG TAB 40 MILLIGRAM ORAL DAILY. MIRTAZAPINE (REMERON) 15 MG TAB 15 MILLIGRAM ORAL BEDTIME. amLODIPine (NORVASC) 10 MG TAB 10 MILLIGRAM ORAL DAILY. VALPROIC ACID (DEPAKENE 250 MG/5 ML) 250 MG/5 ML SYRUP 250 MILLIGRAM ORAL EVERY 12 HOURS. OMEPRAZOLE ER (PriLOSEC) 40 MG CAP.DR 40 MILLIGRAM ORAL DAILY. CLOPIDOGREL (PLAVIX) 75 MG TAB 75 MILLIGRAM ORAL DAILY. ACETAMINOPHEN (TYLENOL) 325 MG TAB 650 MILLIGRAM ORAL EVERY 6 HOURS NEEDED. as needed for PAIN MAG HYDROX/AL HYDROX/SIMETH (MAG-AL PLUS 200-200-20 MG/5ML) 200 MG-200 MG-20 MG/ 5 ML ORAL.SUSP 30 MILLILITERS ORAL TWICE DAILY. as needed for CONSTIPATION Start taking the following new medications: NITROFURANTOIN/NITROFURAN MAC (MACROBID) 100 MG CAP 100 MILLIGRAM ORAL TWICE DAILY. Qty = 10 No Refills Instructions: Until finished. Take with food. Objective VS/I O Last Documented: Result Date Time Pulse Ox 94 12/02 1121 B/P 151/88 12/02 1121 B/P Mean 108.8 12/02 1121 Temp 98.4 12/02 1121 Pulse 77 12/02 1121 Resp 18 12/02 1121 O2 Delivery Room air 12/02 0332 24 hour I O ending at 0700: 12/02 0700 12/01 1900 Intake Total 400 0 Output Total Balance 400 0 Intake, Oral 400 0 Number 2 0 Bowel Movements Number 3 2 Incontinent Voids Number Voids 2 Discharge Instructions PCP PCP follow-up: PCP: Undefined Provider Discharge to: Home/Self Care Additional Discharge Routines: PCP Follow-Up Diet: Cardiac Activity: As Tolerated Follow-up Appointments PCP follow-up: PCP: Undefined Provider PCP follow up timeframe: In 1-2 weeks Quality: Discharge Current Medications Current medication review: I attest that the foregoing medication list in the medical record is true, accurate, and complete to the best of my knowledge. Tre Jamil 12/02/22 1832: Attestations Teaching Physician Attestation F/U visit w/ resident: I saw the patient with the resident Dr Amin PGy3 and . . . agree with the resident's findings and plan. at 1504 at 1833 RPT #:[id number] END OF REPORT [facility] 2022-12-01 18:08:00 [facility] ([facility]) Hospitalist Progress Note REPORT#:[id number] REPORT STATUS: Signed DATE:12/01/22 TIME: 180 PATIENT: CANDICE ALLAN UNIT #: [id number] ROOM/BED: [address] : [birth year] AGE: 62 SEX: F ATTEND: Tre Jamil MD ADM AUTHOR: Tre Jamil MD * ALL edits or amendments must be made on the electronic/computer document * Subjective Chief complaint: Altered Mental Status HPI: Pt continue to have incoherent speech, but able to follow simple commands. Her right elbow remains fully extended and fixed, and she's not able to raise her right arm against gravity. pt is able to move all other extremities. Attempt to contact family below has not yielded anyone who's familiar with patient's baseline condition. Pt has been afebrile on empiric abx for suspected UTI [facility] P# PCP: Guero Rosenberg MD P# [facility] P# NOK: Nakul Scanlon - Daughter P# Review of Systems Unable to obtain due to: pt has expressive aphasia Objective General VS/I O: Vital Signs: Date Time Temp Pulse Resp B/P B/P Pulse O2 O2 Flow FiO2 Mean Ox Delivery Rate 12/01 1513 97.7 98 18 110/80 89.9 97 12/01 1125 101 18 163/118 133.0 12/01 0622 98.1 77 18 141/82 101.5 96 12/01 0326 81 15 121/84 96.4 95 11/30 2322 98.6 73 14 113/77 89.3 91 11/30 1917 98.1 244 15 140/92 107.9 74 PATIENT WEIGHT: Weight (lb): Weight (oz): Weight (kg): 90.909 Medications: Active Meds + DC'd Last 24 Hrs Amlodipine Besylate (NORVASC) 10 MG DAILY PO (UNV) Lisinopril (PRINIVIL) 20 MG DAILY PO (UNV) Atorvastatin Calcium (LIPITOR) 40 MG BEDTIME PO (UNV) Duloxetine HCl (CYMBALTA) 60 MG BEDTIME PO (UNV) Mirtazapine (REMERON) 15 MG BEDTIME PO (UNV) Valproate Sodium (DEPAKENE SYRUP) 250 MG Q12H PO (UNV) Ceftriaxone Sodium (ROCEPHIN) 1,000 MG Q24H IV Sodium Chloride (SODIUM CHLORIDE 0.9%) 10 ML Acetaminophen (TYLENOL) 650 MG Q4H PRN PRN PO Labetalol HCl (TRANDATE, NORMODYNE) 20 MG Q4H PRN PRN IV Ondansetron HCl (ZOFRAN) 4 MG Q8H PRN PRN IV Clopidogrel Bisulfate (PLAVIX) 75 MG DAILY PO Docusate Sodium (COLACE) 100 MG BID PO Pantoprazole (PROTONIX) 40 MG DAILY PO Senna (SENOKOT) 2 TAB BID PO (CKD) Physical Exam General appearance: awake, no acute distress, incoherent speech but able to follows simple command Head/Eyes: atraumatic, normocephalic ENT: dry mucosal membrane, edentulous Neck: full range of motion, supple/no meningismus Cardiovascular: tachycardic, normal heart sounds Respiratory: aerating well, clear to auscultation, symmetric expansion Abdomen: non-tender, soft, no distention Genitourinary: no urinary catheter Extremities: moves all, normal range of motion, no calf tenderness Musculoskeletal: normal inspection Neuro/LABELER: alert, unable to fully evaluate neurological status due to expressive aphasia and inconsistent/unpredictable responses to questions and commands, RUE appears to have some degree of hemiplegia, unable to fully evaluate and unable to evaluate bilateral LE due to patient either not understanding questions or commands or due to inability to use bilateral LE Skin: dry, intact Psychiatry: unable to evaluate Results Findings/Data: Laboratory Tests 12/01 11/30 0551 2134 Chemistry POC Glucose (60 - 99 MG/DL) 118 H TSH (0.465 - 4.68 MIU/L) 1.820 Laboratory Tests 12/01 0551 Hematology WBC (3.8 - 9.8 K/MM3) 8.9 RBC (3.58 - 4.97 M/MM3) 4.65 Hgb (11.2 - 14.9 G/DL) 13.5 Hct (33.2 - 43.5 %) 41.2 MCV (80.7 - 99.1 fL) 89 MCH (27.0 - 34.1 pg) 29.0 MCHC (32.2 - 35.7 %) 32.8 RDW (12.1 - 15.2 %) 13.2 Plt Count (129 - 368 K/MM3) 191 MPV (7.4 - 10.4 fl) 11.3 H Neut % (Auto) (43 - 75 %) 51.9 Lymph % (Auto) (14 - 44 %) 33.7 [place] % (Auto) (4 - 13 %) 7.7 Eos % (Auto) (0 - 6 %) 5.8 Baso % (Auto) (0 - 2 %) 0.6 Neut # (Auto) (2.0 - 7.6 K/mm3) 4.60 Lymph # (Auto) (1.0 - 3.8 K/mm3) 2.98 [place] # (Auto) (0.1 - 0.8 K/mm3) 0.68 Eos # (Auto) (0.0 - 0.2 K/mm3) 0.51 H Baso # (Auto) (0.0 - 0.2 K/mm3) 0.05 Immature Gran % (0.0 - 2.0 %) 0.3 Nucleated RBC % (0 - 1.0 %) 0.0 Nucleated RBCs # (Man) (0.0 - 0.1 K/mm3) 0.00 Diagnosis, Assessment Plan Problem List/A P: 1. Acute metabolic encephalopathy Pt admitted from [facility] with reported increased confusion, however unable to confirm baseline mentation. Likely confusion due to UTI infection 2. UTI (urinary tract infection) Suspected UTI due to pyuria noted in urine. Pt unable to communicate her urinary symptoms. Ucx sterile thus far. Will continue ceftriaxone for total 3 days before transitioning to oral abx 3. Expressive aphasia Expressive aphasia likely sequella of prior CVA Pt does retain some comprehension of language 4. Primary hypertension Currently controlled, will resume lisinopril 20 mg but change amlodipine to coreg due to h/o P-Afib 5. Unspecified mood [affective] disorder Pt likely has unspecified h/o anxiety disorder, on antidepressive and anxiolytic meds. Her moods seems labile, crying spontaneously without obvious cause Will resume home antidepressant meds for now 6. Paroxysmal A-fib pt has vague h/o P-Afib, currently in NSR Will start low dose coreg for rate controlled and hold anticoaguation for now due to h/o frequent falls. Free Text DxA P Notes Free text DxA P notes: continue current medical therapy including ceftriaxone x 3 days i suspect pt's mentation is back to baseline wiht her expressive aphasia Will resume her antidepressants and HTN meds C/S CM to contact pt's family and to request authorization to retrun pt back to her LTC at [facility] Full Code, per Documentation VTE Ppx: SCDs Diet: NPO, pending ST evaluation NOK: Nakul Scanlon - Daughter P# PCP: Guero Rosenberg MD P# [facility] P# [facility] P# Quality: Gen Med Crit Care VTE Prophylaxis VTE prophylaxis initiated: yes (mechanical comp device) Current Medications Current medication review: I attest that the foregoing medication list in the medical record is true, accurate, and complete to the best of my knowledge. Advanced Care Plan 65 or Older Discussed with: other (full code) at 1825 RPT #:[id number] END OF REPORT [facility] 2022-11-30 08:24:00 [facility] ([facility]) Hospitalist History Physical REPORT#:[id number] REPORT STATUS: Signed DATE:11/30/22 TIME: 823 PATIENT: FUNMILAYO ALLAN UNIT #: [id number] [facility] AGE: 62 SEX: F ATTEND: Tre Jamil MD ADM AUTHOR: Kal Rose MD R2 * ALL edits or amendments must be made on the electronic/computer document * Kal Rose 11/30/22 08: History of Present Illness HPI Chief complaint: Altered Mental Status PCP: PCP: Guero Rosenberg MD HPI: 62 y/o F with unconfirmed h/o Expressive Aphasia, Dysphagia, Recurrent Falls, Unspecified Atrial Fibrillation, MDD, BAMBI, Unspecified Mood Disorder, HTN, Unspecified Chronic Ischemic Heart Disease,HLD, GERD w/ Esophagitis, Constipation, and Vitamin D Deficiency, presented for altered mental status. History is extremely limited due to unavailability of any history or documentation during admission. Documents available are last dated from 2021. Documentation available indicates residence at [facility] or [facility] (contact phone number for each facility documented below). Both facilities were contacted with no answer and no means of leaving voicemail. PCP is documented at Guero Rosenberg MD (contact phone number documented below), who documented most recent information available, but his contact information is for a non-patient care administrative line and he could not be reached. Patient's NOK is documented as her daughter, Nakul Scanlon ( contact phone number documented below), but she could not be reached either. The reasons for her admission was indicated as altered mental status, however, it is unclear if her mental status is altered due to her history of expressive aphasia. Patient cannot provide any information verbally and does not appear to respond consistently or predicably to questions via gestures or body language. She consistently responds "Goddammit" to all questions and comments and will cry and wail without known cause. She was noted to gesture toward her abdoment during evaluation, however, it is unclear whether this is due to pain, needing to have a bowel movement, needing to urinate, or hunger. All other information is unknown at this time. Medications, provided on most recently available documentation are updated in medication reconciliation, but not restarted or held at this time due to unclear medication regimen. [facility] P# PCP: Guero Rosenberg MD P# [facility] P# NOK: Nakul Scanlon - Daughter P# History Past Medical Surgical Hx Patient History: 1. Expressive aphasia 2. Dysphagia 3. Recurrent falls 4. Chronic atrial fibrillation, unspecified 5. Chronic ischemic heart disease, unspecified 6. Generalized anxiety disorder 7. Major depressive disorder 8. Unspecified mood [affective] disorder 9. Primary hypertension 10. Dyslipidemia 11. GERD with esophagitis 12. Vitamin D deficiency Additional medical history: Medical History is Unconfirmed Additional surgical history: Unknown Family History Additional family history: Unknown Social History Alcohol use: Unknown Drug use: Unknown Smoking status for patients 13 years old or older: Unknown,if ever smoked Medication/Allergy-Vaccine Hx Medications: Medication list is unconfirmed at this time. Medications reconciled based on last available documentation, DOS 02/17/2022, per Dr. Guero Rosenberg MD. Unable to contact PCP, facilities in documentation, or NOK for further information. Home Medications: DOCUSATE SODIUM (COLACE) 100 MG PO BID DULoxetine DR (CYMBALTA) 60 MG PO BEDTIME DULoxetine DR (CYMBALTA) 30 MG PO BEDTIME FAMOTIDINE (PEPCID) 20 MG PO BID LACTOBACILLUS ACIDOPHILUS (PROBIOTIC ACIDOPHILUS) 1 CAP PO DAILY ATORVASTATIN (LIPITOR) 40 MG PO BEDTIME LISINOPRIL (ZESTRIL) 40 MG PO DAILY MIRTAZAPINE (REMERON) 15 MG PO BEDTIME amLODIPine (NORVASC) 10 MG PO DAILY SENNOSIDES (SENNA) 17.2 MG PO DAILY VALPROIC ACID (DEPAKENE 250 MG/5 ML) 250 MG PO Q12H OMEPRAZOLE ER (PriLOSEC) 40 MG PO DAILY CLOPIDOGREL (PLAVIX) 75 MG PO DAILY ACETAMINOPHEN (TYLENOL) 650 MG PO Q6H PRN PRN PAIN MAG HYDROX/AL HYDROX/SIMETH (MAG-AL PLUS 200-200-20 MG/5ML) 30 ML PO BID PRN CONSTIPATION Allergies: Coded Allergies: No Known Allergies (11/29/22) Review of Systems Unable to obtain due to: Expressive Aphasia, Inconsistent/Unpredictable Responses to Questions OBJECTIVE VS/I O: Vital Signs Date Temp Pulse Resp B/P B/P Mean Pulse Ox FiO2 11/29 98.8 106 20 125/90 101 97 Last Documented: Result Date Time Pulse Ox 97 11/29 2200 B/P 125/90 11/29 2200 B/P Mean 101 11/29 2200 Temp 98.8 11/290 Pulse 106 11/29 2200 Resp 20 11/29 2200 24 hour I O ending at 0700: 11/30 0700 11/29 1900 Intake Total Output Total Balance Patient 90.909 kg Weight Weight Stated/Reported Measurement Method Patient Weight and BMI Weight (kg): 90.909 BMI: 30.5 General appearance: altered mental status, frail, alert, awake Head/Eyes: atraumatic, normocephalic ENT: dry mucosal membrane, edentulous Neck: full range of motion, supple/no meningismus Cardiovascular: tachycardic, normal heart sounds Respiratory: aerating well, clear to auscultation, symmetric expansion Abdomen: non-tender, soft, no distention Genitourinary: no urinary catheter Extremities: moves all, normal range of motion, no calf tenderness Musculoskeletal: normal inspection Neuro/LABELER: alert, unable to fully evaluate neurological status due to expressive aphasia and inconsistent/unpredictable responses to questions and commands, RUE appears to have some degree of hemiplegia, unable to fully evaluate and unable to evaluate bilateral LE due to patient either not understanding questions or commands or due to inability to use bilateral LE Skin: dry, intact Psychiatry: unable to evaluate Results Findings/Data: Laboratory Tests: 11/29 11/29 2335 2335 Chemistry Sodium (137 - 145 MMOL/L) 141 Potassium (3.5 - 5.1 MMOL/L) 3.8 Chloride (98 - 107 MMOL/L) 106 Carbon Dioxide (22 - 30 MMOL/L) 24 BUN (7 - 17 MG/DL) 21 H Creatinine (0.52 - 1.04 MG/DL) 0.80 Glomerular Filtr Rate > 60 Glucose (74 - 106 MG/DL) 104 Lactic Acid (0.7 - 2.1 MMOL/L) 2.2 H Calcium (8.4 - 10.2 MG/DL) 10.2 Total Bilirubin (0.2 - 1.3 MG/DL) 0.4 AST (14 - 36 UNITS/L) 27 ALT (0 - 34 UNITS/L) 22 Total Alk Phosphatase (38 - 126 UNITS/L) 95 Troponin I (0.012 - 0.033 NG/ML) < 0.012 L Total Protein (6.3 - 8.2 G/DL) 8.5 H Albumin (3.5 - 5.0 G/DL) 4.6 Hematology WBC (3.8 - 9.8 K/MM3) 11.2 H RBC (3.58 - 4.97 M/MM3) 5.32 H Hgb (11.2 - 14.9 G/DL) 15.2 H Hct (33.2 - 43.5 %) 47.1 H MCV (80.7 - 99.1 fL) 89 MCH (27.0 - 34.1 pg) 28.6 MCHC (32.2 - 35.7 %) 32.3 RDW (12.1 - 15.2 %) 12.9 Plt Count (129 - 368 K/MM3) 243 MPV (7.4 - 10.4 fl) 10.7 H Neut % (Auto) (43 - 75 %) 53.8 Lymph % (Auto) (14 - 44 %) 35.4 [place] % (Auto) (4 - 13 %) 7.4 Eos % (Auto) (0 - 6 %) 2.6 Baso % (Auto) (0 - 2 %) 0.5 Neut # (Auto) (2.0 - 7.6 K/mm3) 6.01 Lymph # (Auto) (1.0 - 3.8 K/mm3) 3.96 H [place] # (Auto) (0.1 - 0.8 K/mm3) 0.83 H Eos # (Auto) (0.0 - 0.2 K/mm3) 0.29 H Baso # (Auto) (0.0 - 0.2 K/mm3) 0.06 Immature Gran % (0.0 - 2.0 %) 0.3 Nucleated RBC % (0 - 1.0 %) 0.0 Nucleated RBCs # (Man) (0.0 - 0.1 K/mm3) 0.00 Laboratory Tests 11/29/22 2335: [Embedded Image Not Available] Radiology data: Recent Impressions: --------- CAT SCAN - CT HEAD/BRAIN W/O CONT 11/29 2210 Report Impression - Status: SIGNED Entered: 11/29/20222237 Impression: 1. No acute intracranial abnormality. Impression By: [email or web address] - Kd Dawkins MD --------- RADIOLOGY - XR CHEST 1V 11/29 2212 Report Impression - Status: SIGNED Entered: 11/29/20222236 IMPRESSION: No radiographic evidence of acute cardiopulmonary process. Impression By: RosendoEMELIA Lopez MD --------- CAT SCAN - CT ABD PELVIS W/CONT 11/30 0220 Report Impression - Status: SIGNED Entered: 11/30/2022 0256 IMPRESSION: No definite acute abnormality and other findings as above. Impression By: Javi Lopez MD --------- Results: labs reviewed, vital signs reviewed, CT results reviewed, x-ray personally reviewed, current med profile rev'd Diagnosis, Assessment Plan Problem List/A P: 1. Acute metabolic encephalopathy 2. Expressive aphasia 3. Dysphagia 4. Major depressive disorder 5. Generalized anxiety disorder 6. Unspecified mood [affective] disorder 7. Primary hypertension 8. Dyslipidemia 9. GERD with esophagitis 10. Chronic atrial fibrillation, unspecified 11. Chronic ischemic heart disease, unspecified 12. Recurrent falls Free Text A P: Acute Metabolic Encephalopathy Expressive Aphasia Dysphagia Elevated Lactate Unclear if encephalopathic or if suspected encephalopathy is due to expressive aphasia. Patient does not respond to questions or commands consistently or predictably. Documentation available during intake evaluation was last documented in 02/17/2022, by Guero Rosenberg MD, from [facility]. HPI from that date of service documentation indicated that she may have been transferred from [facility]. NOK is documented as Nakul Scanlon, patient's daughter. Both facilities, Dr. Rosenberg, and [facility] could not be reached and no means of leaving messages were available. CT Head/Brain was benign, CXR was benign, and CT Abdomen/Pelvis was benign. Troponin was undetectable. UA not received be the time of intake evaluation, ordered as clean catch. Lactate was elevated on ER work-up, however, while patient was mildly tachycardic (HR 106), no other SIRS criteria were met. Patient received one dose of ceftriaxone in the ER, but no antibiotic were continued. Medications reconciled, however, it is unknown at this time, if the medications from the 07/2021 documentation are correct. - UA pending, clean catch cancelled -- reordered as straight cath - Valproate level ordered - Blood Cx pending - ST evaluation pending, NPO pending evaluation Frailty Recurrent Falls Patient is frail appearing and documentation available on intake indicates possible history of recurrent falls. Patient is apparently unable to fully move right arm, however, no documentation of hemiplegia is noted in documentation provided. - PT/OT consulted - Fall precautions - Avoid chemical anticoagulation at this time - Repeat lactate pending Unspecified Atrial Fibrillation Unspecifiec Ischemic Heart Disease - Continuous telemetry monitoring Primary Hypertension Documented diagnosis, medications in documentation include lisinopril and amlodipine. - Monitor vital signs - Holding antihypertensive medications; normotensive on intake - PRN hydralazine Dyslipidemia - Holding atorvastatin, pending confirmation of medications Major Depressive Disorder Generalized Anxiety Disorder Unspecified Mood Disorder Medications in documention include Duloxetine 60mg at bedtime and 30mg at bedtime, Valproate, and Mirtazipine. Confirmation of medications pending. - Consider ordering haloperidol, as needed, if patient becomes agitated - Valproate level pending - Case management consultation ordered for medical records, medications, insurance GERD w/ Esophagitis - Resume home famotidine and omeprazole - Pantoprazole will be used in place of NF omeprazole during hospitalization Constipation - Resume home docusate and senna - Holding home Maalox Full Code, per Documentation VTE Ppx: SCDs Diet: NPO, pending ST evaluation NOK: Nakul Scanlon - Daughter P# PCP: Guero Rosenberg MD P# [facility] P# [facility] Prophylaxis VTE prophylaxis initiated: yes (mechanical comp device) Current Medications Current medication review: I attest that the foregoing medication list in the medical record is true, accurate, and complete to the best of my knowledge. Advanced Care Plan 65 or Older Discussed with: other (full code) Attestations Attestation needed: teaching physician Haydee Kwan 11/30/22 1437: Attestations Teaching Physician Attestation 1st visit w/ resident: I was present with the resident during the history and exam. I discussed the case with the resident and . . . agree with the findings and plan as documented in the resident's note. agree with the findings and plan as documented in the resident's note EXCEPT: at 0928 at 2139 RPT #:[id number] END OF REPORT [facility] 2022-11-29 22:04:00 [facility] ([facility]) EMERGENCY PROVIDER REPORT REPORT#:[id number] REPORT STATUS: Signed DATE:11/29/22 TIME: 2203 PATIENT: FUNMILAYO ALLAN UNIT #: [id number] [facility] AGE: 62 SEX: F PCP PHYS: Undefined Provider SERVICE AUTHOR: Olga Braga MD [place] [facility] ALL edits or amendments must be made on the electronic/computer document * See Addendum HPI-General Illness Free Text HPI Notes Free Text HPI Notes 62 y/o F with unconfirmed h/o Expressive Aphasia, Dysphagia, Recurrent Falls, Unspecified Atrial Fibrillation, MDD, BAMBI, Unspecified Mood Disorder, HTN, Unspecified Chronic Ischemic Heart Disease,HLD, GERD w/ Esophagitis, Constipation, and Vitamin D Deficiency, presented for altered mental status. General Confirmed Patient Yes Initial Greet Date/Time 11/29/222203 Presentation Chief Complaint ams Review of Systems ROS Statements All systems rev neg except as marked. Past Medical History - Adult Stated Complaint WEAKNESS, ALTERED, UNKNOWN LKW Allergies Coded Allergies: No Known Allergies (11/29/22) Home Medications Reported Medications DOCUSATE SODIUM (COLACE) 100 MG PO BID DULoxetine DR (CYMBALTA) 60 MG PO BEDTIME DULoxetine DR (CYMBALTA) 30 MG PO BEDTIME FAMOTIDINE (PEPCID) 20 MG PO BID LACTOBACILLUS ACIDOPHILUS (PROBIOTIC ACIDOPHILUS) 1 CAP PO DAILY ATORVASTATIN (LIPITOR) 40 MG PO BEDTIME LISINOPRIL (ZESTRIL) 40 MG PO DAILY MIRTAZAPINE (REMERON) 15 MG PO BEDTIME amLODIPine (NORVASC) 10 MG PO DAILY VALPROIC ACID (DEPAKENE 250 MG/5 ML) 250 MG PO Q12H OMEPRAZOLE ER (PriLOSEC) 40 MG PO DAILY CLOPIDOGREL (PLAVIX) 75 MG PO DAILY ACETAMINOPHEN (TYLENOL) 650 MG PO Q6H PRN PRN PAIN MAG HYDROX/AL HYDROX/SIMETH (MAG-AL PLUS 200-200-20 MG/5ML) 30 ML PO BID PRN CONSTIPATION Review of Nursing Notes Triage notes reviewed Pt reports no significant: Past medical history, Past surgical history, Family history, Social history Smoking status for patients 13 years old or older: Unknown,if ever smoked Physical Exam Vital Signs Vital Signs First Documented: Result Date Time Pulse Ox 97 11/29 2199 B/P 125/90 11/290 B/P Mean 101 11/29 2199 Temp 37.1 11/29 2199 Pulse 106 11/29 2199 Resp 20 11/29 2199 Last Documented: Result Date Time Pulse Ox 97 11/29 2199 B/P 125/90 11/29 2199 B/P Mean 101 11/29 2199 Temp 37.1 11/29 2199 Pulse 106 11/29 2199 Resp 20 11/29 2199 Review of Vital Signs Reviewed Free Text PE Notes Free Text PE Notes General: Awake, no acute distress Head: Atraumatic, normocephalic ENT: Oropharynx patent, no oropharyngeal edema CV: Regular rate, regular rhythm Respiratory: Clear to auscultation bilaterally, no wheezes bilateral Abdomen: No tenderness to palpation, no distention MSK back: No midline tenderness, no CVA tenderness Skin: No rash, no lacerations Interpretation Diagnostics Lab Results Interpretation Considerations Independ review imaging, Reviewed prior records Results Laboratory Tests 11/29/22 2335: [Embedded Image Not Available] Laboratory Tests: 11/29 11/29 2335 2335 Chemistry Sodium (137 - 145 MMOL/L) 141 Potassium (3.5 - 5.1 MMOL/L) 3.8 Chloride (98 - 107 MMOL/L) 106 Carbon Dioxide (22 - 30 MMOL/L) 24 BUN (7 - 17 MG/DL) 21 H Creatinine (0.52 - 1.04 MG/DL) 0.80 Glomerular Filtr Rate > 60 Glucose (74 - 106 MG/DL) 104 Lactic Acid (0.7 - 2.1 MMOL/L) 2.2 H Calcium (8.4 - 10.2 MG/DL) 10.2 Total Bilirubin (0.2 - 1.3 MG/DL) 0.4 AST (14 - 36 UNITS/L) 27 ALT (0 - 34 UNITS/L) 22 Total Alk Phosphatase (38 - 126 UNITS/L) 95 Troponin I (0.012 - 0.033 NG/ML) < 0.012 L Total Protein (6.3 - 8.2 G/DL) 8.5 H Albumin (3.5 - 5.0 G/DL) 4.6 Hematology WBC (3.8 - 9.8 K/MM3) 11.2 H RBC (3.58 - 4.97 M/MM3) 5.32 H Hgb (11.2 - 14.9 G/DL) 15.2 H Hct (33.2 - 43.5 %) 47.1 H MCV (80.7 - 99.1 fL) 89 MCH (27.0 - 34.1 pg) 28.6 MCHC (32.2 - 35.7 %) 32.3 RDW (12.1 - 15.2 %) 12.9 Plt Count (129 - 368 K/MM3) 243 MPV (7.4 - 10.4 fl) 10.7 H Neut % (Auto) (43 - 75 %) 53.8 Lymph % (Auto) (14 - 44 %) 35.4 [place] % (Auto) (4 - 13 %) 7.4 Eos % (Auto) (0 - 6 %) 2.6 Baso % (Auto) (0 - 2 %) 0.5 Neut # (Auto) (2.0 - 7.6 K/mm3) 6.01 Lymph # (Auto) (1.0 - 3.8 K/mm3) 3.96 H [place] # (Auto) (0.1 - 0.8 K/mm3) 0.83 H Eos # (Auto) (0.0 - 0.2 K/mm3) 0.29 H Baso # (Auto) (0.0 - 0.2 K/mm3) 0.06 Immature Gran % (0.0 - 2.0 %) 0.3 Nucleated RBC % (0 - 1.0 %) 0.0 Nucleated RBCs # (Man) (0.0 - 0.1 K/mm3) 0.00 Microbiology: Date/Time Procedure - Status Source Growth 11/29 2334 Blood Culture - COMP BLOOD 11/29 2334 Blood Culture - COMP BLOOD 11/29 2334 Blood Culture - COMP BLOOD 11/29 2334 Blood Culture - COMP BLOOD Recent Impressions: CAT SCAN - CT HEAD/BRAIN W/O CONT 11/29 2210 Report Impression - Status: SIGNED Entered: 11/29/20222237 Impression: 1. No acute intracranial abnormality. Impression By: [email or web address] Pranav Dawkins MD RADIOLOGY - XR CHEST 1V 11/29 2212 Report Impression - Status: SIGNED Entered: 11/29/20222236 IMPRESSION: No radiographic evidence of acute cardiopulmonary process. Impression By: Javi Lopez MD CAT SCAN - CT ABD PELVIS W/CONT 11/30 0220 Report Impression - Status: SIGNED Entered: 11/30/2022 0256 IMPRESSION: No definite acute abnormality and other findings as above. Impression By: Javi Lopez MD Lab Imaging Statement Laboratory radiographic studies reviewed and considered in the medical decision-making. Re-Evaluation MDM Free Text MDM Notes Free Text MDM Notes Patient has elevated lactic acid level. Work-up on her is otherwise unremarkable. Admitted for altered mental status. ED Course Medication(s) Ordered Medication(s) Ordered: Anti-Infective Agents Sig/Donald Start time Last Medication Dose Route Stop Time Status Admin Ceftriaxone Sodium 1,000 MG X1ED STA 11/30 0148 DC 11/30 Sodium Chloride 10 ML IV 11/30 0149 0221 Diagnostic Agents Sig/Donald Start time Last Medication Dose Route Stop Time Status Admin Iopamidol 0 .STK-MED ONE 11/30 0154 DC .ROUTE Electrolytic, Caloric, And Blu Sig/Donald Start time Last Medication Dose Route Stop Time Status Admin Sodium Chloride 1,000 ML X1ED STA 11/30 0148 DC 11/30 IV 11/30 0149 0220 Patient Discharge Departure Vital Signs/Condition Vital Signs First Documented: Result Date Time Pulse Ox 97 11/29 2200 B/P 125/90 11/29 2200 B/P Mean 101 11/29 2200 Temp 37.1 11/29 2200 Pulse 106 11/29 2200 Resp 20 11/290 Last Documented: Result Date Time Pulse Ox 97 11/29 2200 B/P 125/90 11/29 2200 B/P Mean 101 11/29 2200 Temp 37.1 11/29 2200 Pulse 106 11/29 2200 Resp 20 11/290 All vital signs available at the time of this entry have been reviewed. Clinical Impression Clinical Impression Primary Impression: AMS (altered mental status) Secondary Impressions: Elevated lactic acid level Disposition Decision Hospitalize Hosp Physician Hospitalist Request Time 0504 Request Date 11/30/22 )( Accepts Hospitalization Yes )( Reason for Hospitalization ams Discharge/Care Plan (Auto) Prescriptions Current Visit Scripts NITROFURANTOIN/NITROFURAN MAC (MACROBID) 100 MG PO BID NITROFURANTOIN/NITROFURAN MAC (MACROBID) 100 MG PO BID #10 CAPS Until finished. Take with food. at 0627 Addendum 1: 12/26/22422 by Olga Braga MD Provider Time Updates Greet Date/Time Date/Time Seen by Provider 11/29/22 2204 Disposition Admit )( Admission Accepts Yes )( Accepted Time 0506 )( Accepted Date 11/30/22 at 0932 RPT #:[id number] END OF REPORT [facility]
--- NOTE | 2024-12-06 15:25 | RAD REPORT ---
EXAM: Chest Single View HISTORY: 64 years Female COUGH COMPARISON: 05/05/2020 FINDINGS: LUNGS/PLEURA: Mild basilar opacities which are not well assessed on this portable radiograph. CARDIAC/MEDIASTINUM: The cardiac silhouette is within normal limits. UPPER ABDOMEN: No significant abnormality. BONES: No acute abnormality. LINES/TUBES/OTHER: N/A IMPRESSION: Mild basilar opacities could reflect atelectasis versus pneumonia/pneumonitis. It is likely an expira tory radiograph. Consider dedicated PA and lateral.
[2024-12-06 16:03] LABS: Absolute Lymphocytes (CBC) 3.7 K/uL (0.7-4.9); Hematocrit 45.8 % (36.0-45.0); Hemoglobin 15.4 g/dL (12.0-15.0); MCH 30.4 pg (27.0-35.0); MCHC 33.7 g/dL (32.0-36.0); MCV 90.1 fL (80-100); MPV 9.5 fL (7.6-11.3); Nucleated RBC Absolute Count 0.1 (0-0); Nucleated Red Blood Cells % 0.8 % (0-0); RBC Red Blood Cell Count 5.09 M/uL (3.86-4.86); White Blood Count 9.70 thou/uL (4.3-10.9)
[2024-12-06 16:59] LABS: PT Prothrombin Time 11.3 SECONDS (10-13.0); Protime INR 1.0
[2024-12-06 17:14] LABS: ALT/SGPT 28 U/L (13-56); AST/SGOT 16 U/L (15-37); Albumin 3.3 g/dL (3.4-5.0); Albumin/Globulin Ratio 0.8 (1.1-1.8); Alkaline Phosphatase 71 U/L (45-117); Anion Gap 8.8 mEq/L (5.0-15.0); BUN Blood Urea Nitrogen 16 mg/dL (7-18); Globulin 4.2 g/dL (2.3-3.5); Glucose Level 104 mg/dL (74-106); Lipase 76 U/L (13-75); Magnesium 2.0 mg/dL (1.6-2.4); NT PRO-BNP 235 pg/mL (<125); Potassium 3.8 mEq/L (3.5-5.1); Troponin High Sensitivity 12.1 pg/mL (<58.9)
[2024-12-06 17:15] LABS: Bilirubin Indirect, Calculated 0.1 mg/dL (0.2-0.8)
--- NOTE | 2024-12-06 18:43 | ER ---
Nurse's Notes [facility] Name: Funmilayo Mcmillan Age: 64 yrs Sex: Female : 1960 Arrival Date: 12/06/2024 Time: 13:33 Bed 13 Private MD: Diagnosis: Altered mental status, unspecified;Dementia in other diseases classified elsewhere with behavioral disturbance-improved/ resolved Presentation: 12/06 13:35 Chief complaint: EMS states: "ALEX SAID SHE CAN'T STAY THERE IF SHE'S GONNA ACT bp LIKE THAT. SHE WAS YELLING AT EVERYONE AND THROWING STUFF". Coronavirus screen: At this time, the client does not indicate any symptoms associated with coronavirus-19. Ebola Screen: No symptoms or risks identified at this time. Initial Sepsis Screen: Does the patient meet any 2 criteria? No. Patient's initial sepsis screen is negative. Does the patient have a suspected source of infection? No. Patient's initial sepsis screen is negative. Risk Assessment: Do you want to hurt yourself or someone else? Unable to obtain. Onset of symptoms is unknown. Care prior to arrival: Medication(s) given: 2 MG ATIVAN IM Glucose check: 108. 13:35 Method Of Arrival: EMS: [facility] bp 13:35 Acuity: EDNA 3 bp Triage Assessment: 14:08 General: Appears in no apparent distress. Behavior is anxious, uncooperative. Pain: bp Unable to use pain scale. Does not appear to understand pain scale. EENT: No deficits noted. Neuro: Level of Consciousness is awake, confused, Oriented to none. Cardiovascular: Rhythm is sinus rhythm. Respiratory: No deficits noted. GI: No signs and/or symptoms were reported involving the gastrointestinal system. : No signs and/or symptoms were reported regarding the genitourinary system. Derm: No deficits noted. Musculoskeletal: No deficits noted. Historical: - Allergies: 14:08 No Known Allergies; bp - PMHx: 14:08 VASCULAR DEMENTIA; Indwelling zheng; Depression; Atrial Fib; CVA; Hypertension; bp Hyperlipidemia; GERD; - Immunization history:: Adult Immunizations unknown. - Infectious Disease History:: Denies. - Social history:: Smoking status: Patient denies any tobacco usage or history of. - Family history:: not pertinent. Screenin:30 [facility] ED Fall Risk Assessment (Adult) History of falling in the last 3 months, bp including since admission No falls in past 3 months (0 pts) Confusion or Disorientation Yes (5 pts) Intoxicated or Sedated No (0 pts) Impaired Gait No (0 pts) Mobility Assist Device Used No (0 pt) Altered Elimination No (0 pt) Score/Fall Risk Level 3 or more points = High Risk Oriented to surroundings, Maintained a safe environment. Abuse screen: Denies threats or abuse. Denies injuries from another. Nutritional screening: No deficits noted. Tuberculosis screening: No symptoms or risk factors identified. Assessment: 14:10 General: SEE TRIAGE NOTE. bp 16:30 Reassessment: Patient appears in no apparent distress at this time. Patient is alert, bp oriented x 3, equal unlabored respirations, skin warm/dry/pink. 12/07 07:30 General: Appears in no apparent distress. Behavior is calm, quiet. ar8 07:30 Neuro: Oriented to Patient is alert, oriented to person. Per off going RN, KS stated ar8 that this is patient's baseline. . Cardiovascular: Patient's skin is warm and dry. Respiratory: Airway is patent Trachea midline Respiratory effort is even, unlabored, Respiratory pattern is regular, symmetrical. :. Vital Signs: 12/06 13:35 BP 170 / 118; Pulse 112; Resp 18; Temp 98; Pulse Ox 97% ; bp 17:25 BP 164 / 98; Pulse 72; Resp 15; Pulse Ox 93% ; bp ED Course: 13:36 Patient arrived in ED. kj2 13:37 Suleman Sousa, RN is Primary Nurse. kj2 13:44 Orlando Cisneros MD is Attending Physician. edgar 14:08 Triage completed. bp 14:08 Arm band placed on. bp 14:51 XRAY Chest (1 view) In Process Unspecified. EDMS 15:34 EKG done, by technical writing lead/mgr. reviewed by Orlando Cisneros MD. ts3 16:30 Patient has correct armband on for positive identification. bp 16:47 Initial lab(s) drawn, by laboratory geneticist, sent to lab. Inserted saline lock: 22 gauge in left ts3 antecubital area, using aseptic technique. Blood collected. Flushed with 10 mL NS. 18:41 Sai Cano MD is Hospitalizing Provider. [facility] 12/07 06:51 Primary Nurse role handed off by Suleman Sousa, GILA tse 09:29 Carlo Hannon, RN is Primary Nurse. ar8 15:20 Missed attempt(s): 24 gauge in left in right wrist. Bleeding controlled, band aid ll1 applied, catheter tip intact. 17:20 No provider procedures requiring assistance completed. Patient admitted, IV remains in ar8 place. Administered Medications: 09:48 Drug: Ativan IVP 2 mg IVP once Route: IVP; Site: left antecubital; ar8 10:30 Follow up: Response: No adverse reaction; Anxiety decreased ar8 09:50 Drug: Geodon IM 20 mg IM once Route: IM; Site: left ventrogluteal; ar8 10:30 Follow up: Response: No adverse reaction ar8 Medication: 12/06 16:30 VIS not applicable for this client. bp Outcome: 18:42 Decision to Hospitalize by Provider. [facility] 12/07 17:20 Admitted to Med/surg accompanied by nurse, via stretcher, room 202, with chart, ar8 Condition: stable Discharge instructions given to NA 17:31 Patient left the ED. ar8 Signatures: Dispatcher [employer] EDMS Shawnee Vasquez Corey, MD MD cha Peltier, Brian, RN RN bp Dianelys Canela RN RN ll1 Nisha Pandey RN RN 2 Vinita Valverde 3 Carlo Hannon, RN RN ar8 Corrections: (The following items were deleted from the chart) 12/06 16:53 14:08 General: Appears in no apparent distress. Behavior is uncooperative, bp bp
--- NOTE | 2024-12-06 18:43 | EDPHYS ---
Physician Documentation [facility] Name: Funmilayo Mcmillan Age: 64 yrs Sex: Female : 1960 Arrival Date: 12/06/2024 Time: 13:33 Bed 13 Private MD: ED Physician Orlando Cisneros HPI: 12/06 18:37 This 64 yrs old Female presents to ER via EMS with complaints of SOCIAL ISSUE. edgar 18:37 acting up at nd. The patient presents with poor communicating. Possible causes: low [facility] blood sugar, unknown. Associated signs and symptoms: Pertinent positives: combativeness, confusion. Current symptoms: In the emergency department the patient's symptoms have improved, moderately. Patient's baseline: Neuro: noinverbal. Severity of symptoms: At their worst the symptoms were mild in the emergency department the symptoms have improved moderately. It is unknown whether or not the patient has had similar symptoms in the past. Historical: - Allergies: 14:08 No Known Allergies; bp - PMHx: 14:08 VASCULAR DEMENTIA; Indwelling zheng; Depression; Atrial Fib; CVA; Hypertension; bp Hyperlipidemia; GERD; - Immunization history:: Adult Immunizations unknown. - Infectious Disease History:: Denies. - Social history:: Smoking status: Patient denies any tobacco usage or history of. - Family history:: not pertinent. ROS: 18:37 Constitutional: Negative for fever, chills, and weight loss, Eyes: Negative for injury, edgar pain, redness, and discharge, ENT: Negative for injury, pain, and discharge, Neck: Negative for injury, pain, and swelling, Cardiovascular: Negative for chest pain, palpitations, and edema, Respiratory: Negative for shortness of breath, cough, wheezing, and pleuritic chest pain, Abdomen/GI: Negative for abdominal pain, nausea, vomiting, diarrhea, and constipation, Back: Negative for injury and pain, : Negative for injury, bleeding, discharge, and swelling, MS/Extremity: Negative for injury and deformity, Skin: Negative for injury, rash, and discoloration, Psych: Negative for depression, anxiety, suicide ideation, homicidal ideation, and hallucinations, Allergy/Immunology: Negative for hives, rash, and allergies, Endocrine: Negative for neck swelling, polydipsia, polyuria, polyphagia, and marked weight changes, Hematologic/Lymphatic: Negative for swollen nodes, abnormal bleeding, and unusual bruising, 18:37 Neuro: Positive for altered mental status, weakness, behavioral, Exam: 18:39 Constitutional: This is a well developed, well nourished patient who is awake, alert, edgar and in no acute distress. Head/Face: Normocephalic, atraumatic. Eyes: Pupils equal round and reactive to light, extra-ocular motions intact. Lids and lashes normal. Conjunctiva and sclera are non-icteric and not injected. Cornea within normal limits. Periorbital areas with no swelling, redness, or edema. ENT: Nares patent. No nasal discharge, no septal abnormalities noted. Tympanic membranes are normal and external auditory canals are clear. Oropharynx with no redness, swelling, or masses, exudates, or evidence of obstruction, uvula midline. Mucous membranes moist. Neck: Trachea midline, no thyromegaly or masses palpated, and no cervical lymphadenopathy. Supple, full range of motion without nuchal rigidity, or vertebral point tenderness. No Meningismus. Chest/axilla: Normal chest wall appearance and motion. Nontender with no deformity. No lesions are appreciated. Cardiovascular: Regular rate and rhythm with a normal S1 and S2. No gallops, murmurs, or rubs. Normal PMI, no JVD. No pulse deficits. Respiratory: Lungs have equal breath sounds bilaterally, clear to auscultation and percussion. No rales, rhonchi or wheezes noted. No increased work of breathing, no retractions or nasal flaring. Abdomen/GI: Soft, non-tender, with normal bowel sounds. No distension or tympany. No guarding or rebound. No evidence of tenderness throughout. Back: No spinal tenderness. No costovertebral tenderness. Full range of motion. Female : Normal external genitalia. Skin: Warm, dry with normal turgor. Normal color with no rashes, no lesions, and no evidence of cellulitis. MS/ Extremity: Pulses equal, no cyanosis. Neurovascular intact. Full, normal range of motion., bilateral aka Psych: Awake, alert, with orientation to person, place and time. Behavior, mood, and affect are within normal limits. 18:39 Neuro: Orientation: unable to test, Mentation: appropriate for stated age, no acute changes, Cranial nerves: is grossly normal based on the patient's age, no acute changes, Motor: no acute changes, moves all fours, strength is 5/5 in all extremities, Gait: not tested. seizure activity, is not displayed by the patient, 18:46 ECG was reviewed by the Attending Physician. [facility] Vital Signs: 13:35 BP 170 / 118; Pulse 112; Resp 18; Temp 98; Pulse Ox 97% ; bp 17:25 BP 164 / 98; Pulse 72; Resp 15; Pulse Ox 93% ; bp MDM: 13:44 Medical Screening Exam initiated edgar 18:40 Differential Diagnosis altered mental status, sepsis, flu. Differential Diagnosis: CVA, edgar electrolyte abnormality, alcohol intoxication, hypoglycemia, intracranial bleed, meningitis, overdose, pneumonia, seizure, sepsis, TIA, UTI, volume depletion. Data reviewed: vital signs, nurses notes, lab test result(s), EKG, radiologic studies, plain films. Consideration of Admission/Observation Escalation of care including admission/observation considered. I considered the following discharge prescriptions or medication management in the emergency department Medications were administered in the Emergency Department. See MAR. Independent interpretation of the following test(s) in the Emergency Department EKG: See my EKG interpretation above. Care significantly affected by the following chronic conditions: Hypertension, Obesity, zheng, dememtia, depression, cva. 12/06 14:09 Order name: Basic Metabolic Panel; Complete Time: 17:48 [facility] 12/06 14:09 Order name: CBC with Diff; Complete Time: 17:48 [facility] 12/06 14:09 Order name: LFT's; Complete Time: 17:48 [facility] 12/06 14:09 Order name: Magnesium; Complete Time: 17:48 [facility] 12/06 14:09 Order name: NT PRO-BNP; Complete Time: 17:48 [facility] 12/06 14:09 Order name: PT-INR; Complete Time: 17:48 [facility] 12/06 14:09 Order name: Troponin HS; Complete Time: 17:48 [facility] 12/06 14:09 Order name: UA Rfx Ivktor Cult if indicated [facility] 12/06 14:09 Order name: Lipase; Complete Time: 17:48 [facility] 12/06 19:54 Order name: CBC with Automated Diff [facility] 12/06 19:54 Order name: CBC with Automated Diff; Complete Time: 09:09 [facility] 12/06 19:54 Order name: Comprehensive Metabolic Panel [facility] 12/06 19:54 Order name: Comprehensive Metabolic Panel; Complete Time: 09:09 [facility] 12/07 05:53 Order name: CBC Smear Scan; Complete Time: 09: [facility] 12/07 09:52 Order name: Procalcitonin [facility] 12/07 17:19 Order name: Lactate w/ 2H reflex if indic. [facility] 12/06 14:09 Order name: XRAY Chest (1 view); Complete Time: 17:48 [facility] 12/06 14:09 Order name: Cardiac monitoring; Complete Time: 15:33 [facility] 12/06 14:09 Order name: EKG - Nurse/Tech; Complete Time: 15:34 [facility] 12/06 14:09 Order name: IV Saline Lock; Complete Time: 16:47 [facility] 12/06 14:09 Order name: Labs collected and sent; Complete Time: 16:47 [facility] 12/06 14:09 Order name: O2 Per Protocol; Complete Time: 16:55 [facility] 12/06 14:09 Order name: O2 Sat Monitoring; Complete Time: 15:42 [facility] 12/06 15:32 Order name: Labs - recollect needed: recollect green top; Complete Time: 16:47 12/06 15:33 Order name: Labs - recollect needed: recollect blue top; Complete Time: 16:47 bd EC:46 Rate is 91 beats/min. Rhythm is regular. QRS [place] is Normal. SD interval is normal. QRS edgar interval is normal. QT interval is normal. No Q waves. T waves are Normal. No ST changes noted. Clinical impression: NSR w/ Non-specific ST/T Changes. Interpreted by me. Reviewed by me. Administered Medications: 12/07 09:48 Drug: Ativan IVP 2 mg IVP once Route: IVP; Site: left antecubital; ar8 10:30 Follow up: Response: No adverse reaction; Anxiety decreased ar8 09:50 Drug: Geodon IM 20 mg IM once Route: IM; Site: left ventrogluteal; ar8 10:30 Follow up: Response: No adverse reaction ar8 Disposition Summary: 12/06/24 18:42 Hospitalization Ordered Notes: Hospitalization Status: Observation edgar Provider: Sai Cano cha Condition: Stable edgar Problem: new edgar Symptoms: have improved edgar Bed/Room Type: Standard edgar Location: Telemetry/MedSurg (observation)(12/07/24 15:09) bd Room Assignment: 202(12/07/24 15:09) bd Diagnosis - Altered mental status, unspecified edgar - Dementia in other diseases classified elsewhere with behavioral disturbance - edgar improved/ resolved Forms: - Medication Reconciliation Form edgar - SBAR form edgar - Leadership Thank You Letter edgar Signatures: Dispatcher [employer] EDMS SeverianoShawnee garcia Orlando Arias MD MD cha Peltier, Brian, RN RN Anjana Echavarria rv1 Carlo Hannon RN RN ar8 Corrections: (The following items were deleted from the chart) 12/06 14:10 14:10 BASIC METABOLIC PANEL+C.LAB.BRZ ordered. EDMS EDMS 14:10 14:10 CBC+H.LAB.BRZ ordered. EDMS EDMS 14:10 14:10 HEPATIC FUNCTION+C.LAB.BRZ ordered. EDMS EDMS 14:10 14:10 MAGNESIUM+C.LAB.BRZ ordered. EDMS EDMS 14:10 14:10 PROBNP+C.LAB.BRZ ordered. EDMS EDMS 14:10 14:10 PROTIME (+INR)+COAG.LAB.BRZ ordered. EDMS EDMS 14:10 14:10 Troponin High Sensitivity+C.LAB.BRZ ordered. EDMS EDMS 14:10 14:10 UA Rfx Viktor Cult if indicated+U.LAB.BRZ ordered. EDMS EDMS 14:10 14:10 LIPASE+C.LAB.BRZ ordered. EDMS EDMS 14:10 14:10 Chest Single View+RAD.RAD.BRZ ordered. EDMS EDMS 19:36 18:42 Telemetry/MedSurg (observation) edgar rv1 19:36 18:42 edgar rv1 12/07 15:09 12/06 19:36 [facility] ER HOLD rv1 bd 12/07 15:12/06 19:36 ERHOLD- rv1 bd
--- NOTE | 2024-12-06 19:31 | P.HP ---
Certification for Inpatient Patient admitted to: Inpatient With expected LOS: >2 Midnights Practitioner: I am a practitioner with admitting privileges, knowledge of patient current condition, hospital course, and medical plan of care. Services: Services provided to patient in accordance with Admission requirements found in Title 42 Section 412.3 of the Code of Federal Regulations Patient History Date of Service: 12/06/24 Reason for admission: AMS History of Present Illness: 64 yrs old Female with past medical history of hypertension, hyperlipidemia, A- fib, CVA, vascular dementia, brought to ER with altered mental status. Patient could not offer any history hence most of the history is obtained from the chart review and also talking to the ER physician. As per EMS patient has been acting up in the longterm and was agitated and combative. Denies any chest pain or shortness of breath. No fever or chills. Patient was assessed in the ER and is admitted for further management of altered mental status Allergies No Known Allergies Allergy (Verified 06/06/20 00:55) Home medications list reviewed: Yes Home Medications: Amlodipine [Norvasc*] 1 tab FT DAILY 06/06/20 Aspirin 81 mg FT DAILY 06/06/20 Atorvastatin Calcium 1 tab FT BEDTIME 06/06/20 Clopidogrel Bisulfate [Plavix] 1 tab FT DAILY 06/06/20 Famotidine 1 tab FT Q12H 06/06/20 Risperidone [Risperdal] 1 tab FT BID 06/06/20 levETIRAcetam [Levetiracetam] 7.5 ml FT BID 06/06/20 lisinopriL [Lisinopril] 1 tab FT DAILY 06/06/20 Jevity 1.5 Itz Liquid 240 ml FT QID bot 06/27/20 - Past Medical/Surgical History Past Medical History: Reviewed- Non-Contributory -: AFIB -: CVA -: HTN -: HYPERLIPIDEMIA -: DEPRESSION -: INDWELLING BERGER Past Surgical History: Reviewed- Non-Contributory -: PEG tube Psychosocial/ Personal History: Patient disabled, lives with daughter - Social History Smoking Status: Never smoker Alcohol use: No CD- Drugs: No Caffeine use: No Review of Systems is unable to be obtained Physical Examination - Vital Signs Temperature: 98.2 F Blood Pressure: 146/72 Pulse: 78 Respirations: 18 Pulse Ox (%): 94 - Physical Exam General: Alert, Confused HEENT: Atraumatic, Normocephalic Neck: Supple Respiratory: Clear to auscultation bilaterally, Normal air movement Cardiovascular: Regular rate/rhythm, Normal S1 S2 Capillary refill: <2 Seconds Gastrointestinal: Soft and benign, W/out hepatosplenomegaly Musculoskeletal: No clubbing Integumentary: No rashes Neurological: Other (Confused) Lymphatics: No axilla or inguinal lymphadenopathy - Studies Laboratory Data (last 24 hrs) 12/06/24 12/06/24 12/06/24 16:45 16:45 15:10 WBC 9.70 Hgb 15.4 H Hct 45.8 H Plt Count 233 PT 11.3 INR 1.00 Sodium 141 Potassium 3.8 BUN 16 Creatinine 0.96 Glucose 104 Magnesium 2.0 Total Bilirubin 0.3 AST 16 ALT 28 Alkaline Phosphatase 71 Lipase 76 H Assessment and Plan - Plan Acute encephalopathy metabolic History of dementia Supportive management Will get a CT of the head Monitor closely in the telemetry Dementia Continue home medications Supportive management History of stroke Continue home medications Pneumonia Chest x-ray noted Started on antibiotic Will obtain cultures Change antibiotic as per sensitivity Hypertension Antihypertensives titrated Continue home medications and titrate as needed Hyperlipidemia Continue statin GI/DVT prophylaxis Advanced directive full code Discharge Plan: Home Plan to discharge in: 48 Hours - Advance Directives Does patient have a Living Will: No Does patient have a Durable POA for Healthcare: No - Code Status/Comfort Care Code Status: Full Code Time Spent Managing Pts Care (In Minutes): 48
[2024-12-06] MEDS ORDERED: ONDANSETRON 4 MG/2 ML VIAL IV PRN (19:50)
[2024-12-06] MEDS ORDERED: ACETAMINOPHEN 325 MG TABLET FT PRN (19:50)
[2024-12-07 05:12] LABS: Absolute Lymphocytes (CBC) 4.1 K/uL (0.7-4.9); Hematocrit 44.2 % (36.0-45.0); Hemoglobin 15.0 g/dL (12.0-15.0); MCH 30.8 pg (27.0-35.0); MCHC 34.0 g/dL (32.0-36.0); MCV 90.5 fL (80-100); MPV 9.5 fL (7.6-11.3); Nucleated RBC Absolute Count 0.0 (0-0); Nucleated Red Blood Cells % 0.2 % (0-0); RBC Red Blood Cell Count 4.88 M/uL (3.86-4.86); White Blood Count 9.70 thou/uL (4.3-10.9)
[2024-12-07 05:33] LABS: ALT/SGPT 17.0 U/L (13-56); Albumin 3.0 g/dL (3.4-5.0); Albumin/Globulin Ratio 0.8 (1.1-1.8); Alkaline Phosphatase 64.0 U/L (45-117); Anion Gap 9.2 mEq/L (5.0-15.0); BUN Blood Urea Nitrogen 15.0 mg/dL (7-18); Globulin 3.9 g/dL (2.3-3.5); Glucose Level 92.0 mg/dL (74-106)
[2024-12-07 05:35] LABS: AST/SGOT 22.0 U/L (15-37); Potassium 4.2 mEq/L (3.5-5.1)
[2024-12-07 05:53] LABS: Blood Morphology Comment NOT SEEN (NOT SEEN); White Blood Cell Scan OK (OK)
[2024-12-07] MEDS: Levofloxacin 750mg IV 750 MG/150 ML BAG IV SCH (09:00)
[2024-12-07] MEDS: CLOPIDOGREL 75 MG TABLET FT SCH (09:00)
[2024-12-07] MEDS: ASPIRIN 81 MG CHEWABLE TABLET FT SCH (09:00)
[2024-12-07] MEDS: AMLODIPINE 10 MG TAB FT SCH (09:00)
[2024-12-07] MEDS: FAMOTIDINE 20 MG TAB FT SCH (09:00)
[2024-12-07] MEDS: JEVITY 1.5 CAL LIQUID 1,000 ML BOT FT SCH (09:00)
[2024-12-07] MEDS: levETIRAcetam 500 MG/5 ML OSYR FT SCH (09:00)
[2024-12-07] MEDS: RISPERIDONE 0.25 MG TABLET FT SCH (09:00)
[2024-12-07] MEDS ORDERED: LORazepam 2 MG/ML VIAL ONE (09:39)
[2024-12-07] MEDS ORDERED: ZIPRASIDONE MESYLA 20 MG/VIAL IM ONE (09:40)
[2024-12-07] MEDS ORDERED: WATER FOR INJ,STERILE 10 ML ONE (09:40)
--- NOTE | 2024-12-07 10:38 | P.PN ---
Subjective Date of Service: 12/07/24 Chief Complaint: AMS Subjective: No new changes (Unable to obtain review of system due to altered mental status.) Physical Examination - Vital Signs Temperature: 98.7 F Blood Pressure: 150/101 Pulse: 85 Respirations: 18 Pulse Ox (%): 96 - Physical Exam General: Confused HEENT: Atraumatic, Normocephalic Respiratory: Clear to auscultation bilaterally, Normal air movement Cardiovascular: Normal pulses, Regular rate/rhythm, Normal S1 S2 Neurological: Dementia - Studies Laboratory Data (last 24 hrs) 12/06/24 12/06/24 12/06/24 16:45 16:45 15:10 WBC 9.70 Hgb 15.4 H Hct 45.8 H Plt Count 233 PT 11.3 INR 1.00 Sodium 141 Potassium 3.8 BUN 16 Creatinine 0.96 Glucose 104 Magnesium 2.0 Total Bilirubin 0.3 AST 16 ALT 28 Alkaline Phosphatase 71 Lipase 76 H Assessment And Plan - Plan Assessment Patient is a 64-year-old female brought in from a skilled nursing for evaluation of altered mental status manifested by agitation and combativeness. She is slightly hypertensive. Workup has been largely unremarkable except for chest x-ray which is concerning for mild pneumonia. She has been started on IV levofloxacin for empiric treatment. Acute encephalopathy, possibly metabolic encephalopathy Suspected pneumonia Vascular dementia Hypertension Hyperlipidemia Atrial fibrillation CVA Plan: Will give a trial of IV levofloxacin and monitor response Follow urine culture Delirium protocolallow some lights in during the day. Minimize sedation, redirect as possible. Resume rest of home medications upon reconciliation DVT prophylaxis
[2024-12-07] MEDS ORDERED: HYDRALAZINE HCL 20 MG/ML VIAL IV PRN ×2 (10:39→17:04)
[2024-12-07] MEDS ORDERED: Levofloxacin 750mg IV 750 MG/150 ML BAG IV ONE (13:01)
[2024-12-07 14:33] LABS: Sqamous Epithelial <5 /HPF (None Seen); Urine Crystals Unidentified Few /HPF (None Seen); Urine Culture Reflex Order REFLEXED; Urine Granular Casts >20 /LPF (None Seen); Urine Microscopic Reflex YN ORDER UMIC; Urine WBC Clump Many /HPF (None Seen)
[2024-12-07] MEDS: LORazepam 2 MG/ML VIAL IV PRN (17:15)
[2024-12-07 17:58] VITALS: O2SAT 93
[2024-12-07] MEDS: ATORVASTATIN 40 MG TAB FT SCH (21:00)
[2024-12-08 05:39] VITALS: BMI 25.8
[2024-12-08 08:34] VITALS: BP 135/68; TEMP 98.4
--- NOTE | 2024-12-08 09:41 | RAD REPORT ---
EXAM: CT Head Brain W/O Cont HISTORY: ams COMPARISON: 06/23/2020 TECHNIQUE: Multiple contiguous axial images were obtained for a CT of the brain without contrast. Sag ittal and coronal reformats were performed. One or more of the following dose reduction techniques were used: Automated exposure control, adjus tment of the mA and kV according to patient size, and iterative reconstruction. Unless otherwise specified, incidental findings do not require dedicated imaging follow-up. FINDINGS: No evidence of hydrocephalus, intracranial hemorrhage, or extra-axial fluid collection. Stable encephalomalacia centered on the left operculum, extending along the high parasagittal fronta l lobe along the precentral gyrus. Axial vacuo dilation of the left lateral ventricle, stable. Mild leftward paranasal septum bowing, stable, could relate to volume loss. The calvarium is intact. The visualized paranasal sinuses and mastoid air cells are essentially clear . IMPRESSION: No evidence of acute intracranial abnormality. Stable chronic findings in the left hemisphere, sugges tive of remote ischemia as above.
--- NOTE | 2024-12-08 10:20 | P.DS ---
Admission Date: 12/06/24 Discharge Date: 12/08/24 Disposition: ROUTINE DISCHARGE Discharge Condition: GOOD Reason for Admission: [facility] Hospital Course: Patient is a 64-year-old female brought in from a half-way for evaluation of altered mental status manifested by agitation and combativeness. She was slightly hypertensive, restless and confused during my initial evaluation. Workup was significant for abnormal UA suggestive of UTI, and mild pneumonia based on opacities on chest x-ray. She has responded to a trial of IV levofloxacin. Her mental status at baseline. During evaluation this morning, patient was alert and awake, able to eat by herself. Her CT head was negative for acute pathology but demonstrated a remote ischemic infarct. Patient is medically cleared for discharge. Vital Signs/Physical Exam: Temp Pulse Resp BP Pulse Ox 98.4 F 93 H 18 135/68 96 12/08/24 08:00 12/08/24 08:00 12/08/24 08:00 12/08/24 08:00 12/08/24 08:00 General: Alert, In no apparent distress, Cooperative HEENT: Atraumatic, Normocephalic Respiratory: Clear to auscultation bilaterally, Normal air movement Cardiovascular: No edema, Normal pulses, Regular rate/rhythm, Normal S1 S2 Neurological: Other (Baseline neuroexam) Laboratory Data at Discharge: WBC 9.70 thou/uL (4.3-10.9) 12/07/24 05:00 Hgb 15.0 g/dL (12.0-15.0) 12/07/24 05:00 Hct 44.2 % (36.0-45.0) 12/07/24 05:00 Plt Count 227 thou/uL (152-406) 12/07/24 05:00 PT 11.3 SECONDS (10-13.0) 12/06/24 16:45 INR 1.00 12/06/24 16:45 Sodium 143 mEq/L (136-145) 12/07/24 05:00 Potassium 4.2 mEq/L (3.5-5.1) 12/07/24 05:00 BUN 15 mg/dL (7-18) 12/07/24 05:00 Creatinine 0.92 mg/dL (0.55-1.02) 12/07/24 05:00 Glucose 92 mg/dL (74-106) 12/07/24 05:00 Magnesium 2.0 mg/dL (1.6-2.4) 12/06/24 16:45 Total Bilirubin 0.4 mg/dL (0.2-1.0) 12/07/24 05:00 AST 22 U/L (15-37) 12/07/24 05:00 ALT 17 U/L (13-56) 12/07/24 05:00 Alkaline Phosphatase 64 U/L (45-117) 12/07/24 05:00 Lipase 76 U/L (13-75) H 12/06/24 16:45 Home Medications: Amlodipine [Norvasc*] 1 tab FT DAILY 06/06/20 Aspirin 81 mg FT DAILY 06/06/20 Atorvastatin Calcium 1 tab FT BEDTIME 06/06/20 Clopidogrel Bisulfate [Plavix] 1 tab FT DAILY 06/06/20 Famotidine 1 tab FT Q12H 06/06/20 Risperidone [Risperdal] 1 tab FT BID 06/06/20 levETIRAcetam [Levetiracetam] 7.5 ml FT BID 06/06/20 lisinopriL [Lisinopril] 1 tab FT DAILY 06/06/20 Jevity 1.5 Itz Liquid 240 ml FT QID bot 06/27/20 Acetaminophen [Tylenol*] 650 mg FT Q4HP PRN tab 12/08/24 levoFLOXacin [Levofloxacin] 750 mg PO DAILY #5 tab 12/08/24 New Medications: levoFLOXacin [Levofloxacin] 750 mg PO DAILY #5 tab Followup: Juan Sarabia MD [Primary Care Provider] -
== END 2024-12-08 13:15 | DRG 193 ==
LOC: ER 13:33 → ERHOLD 19:50 → 2ND 12-07 16:22
PROVIDERS: ADMIT Family Medicine; ATTEND Internal Medicine
DX: J18.9 Pneumonia, unspecified organism (principal); G93.41 Metabolic encephalopathy; F01.511 Vascular dementia, unspecified severity, with agitation; N39.0 Urinary tract infection, site not specified; I10 Essential (primary) hypertension; E78.5 Hyperlipidemia, unspecified; E66.9 Obesity, unspecified; I48.91 Unspecified atrial fibrillation; K21.9 Gastro-esophageal reflux disease without esophagitis; Z79.82 Long term (current) use of aspirin; Z68.31 Body mass index [BMI] 31.0-31.9, adult; Z79.02 Long term (current) use of antithrombotics/antiplatelets; Z86.73 Personal history of transient ischemic attack (TIA), and cerebral infarction without residual deficits; Z79.899 Other long term (current) drug therapy
CPT/HCPCS: 36415; 70460; 71045; 80048; 80053; 80076; 81001; 83605; 83690; 83735; 83880; 84145; 84484; 85025; 85610; 87077; 87086; 87088; 87186; 93005; 96372; 96374; 99285; J3486

== ENCOUNTER 2024-12-08 14:22 | Emergency (ER) | payer OTHER ==
--- OUTSIDE RECORDS SUMMARY | 2024-12-08 14:33 | XMS REPORT | Continuity of Care Document ---
Author Name Unknown Address [address] [place] [address] [facility] Address [address] [place] [address] Care Team Providers Care Punch Card Operator Name Role Phone Bev Chauhan MD Primary Care Physician [facility], Heart Attending Clinician [phone] Doctor Unassigned, [place] Attending Clinician U Tre Pretty Attending Clinician Unavailable Jazz Larkin LMSW Attending Clinician Unava ilable Doctor Unassigned, [place] Attending Clinician U opal Ward RN, Tanna Alanis Attending Clinician Unav leaable Devonte ADAME, Indira Attending Clinician Unava ilable SONIA BENSON Attending Clinician UnavailLEANNE Cruz Attending Clinician Unavailable RUDY KING Attending Clinician Un available Jarett PINO, Rudy Lowery Attending Clinician MAN GIRON Attending Clinician Unavailable ALBERTO MARCIAL Attending Clinician Unavailable Man Giron MD Attending Clinician [phone] DAYA LOVE Attending Clinician Unavailable Gissel PINO, Bev Mederos Attending Clinician [phone] LUCIANO CERON Attending Clinician Unavailgatito Blount [facility] Nikki Alanis Attending Clinician [phone] Gamaliel SVP RESEARCH & EBUSINESS OPERATIONSMarta Lopez Attending Clinician [phone] MARTA ALSTON Attending Clinician Unavailshailesh Cook DO, Otis Burrows Attending Clinician [phone] Rogelio URIOSTEGUI, Katiana Attending Clinician UnavailJOHNATHON Rodriguez Attending Clinician Unavailable Aniket PINO, Alberto Attending Clinician [phone] JORJE EDDY Attending Clinician Unavailable Pat PINO, Hossein Collazo Attending Clinician [phone] HOSSEIN VILCHIS Attending Clinician Unavailshailesh Lockett RN, Keisha Thayer Attending Clinician Unavailable BEV CHAUHAN Attending Clinician Julia Dubose RN, Funmilayo Almazan Attending Clinician [phone] Dorene Hart MD Attending Clinician [phone] DORENE HART Attending Clinician Unavailshailesh Parr RN, Melinda Thayer Attending Clinician [phone] Ang Mclean MD Attending Clinician [phone] Leland Richards MD Attending Clinician [phone] JUSTINE PORTER Attending Clinician Unavailshailesh Love MD, Daya Attending Clinician [phone] Pc, [facility] Vascular Room 1 - Attending Clinician Un available Sophia PINO, Preston K.H. Attending Clinician + [phone] PRESTON CORTES K.HKeyanna Attending Clinician UnavailMunir Cespedes Attending Clinician [phone] Tre Jamil Admitting Clinician Unavailable Leland Richards MD Admitting Clinician [phone] Payers Payer Name Policy Type Policy Number Effective Date Expirati on Date Source [employer] MEDICAID [id number] 2015 00:00:00 Problems Condition Name Condition Details Condition Category Status Onset Date Resolution Date Last Treatment Date Treating Clinician Comments Source ERRONEOUS ENCOUNTER- -DISREGARD ERRONEOUS ENCOUNTER- -DISREGARD Disease Active 0 6-15 00:00: 00 [facility] Resides in halfway facility Resides in halfway facility Disease Active 0 4-21 00:00: 00 [facility] Wheelchair bound Wheelchair bound Disease Active 2-26 00:00: 00 [facility] Cerebrovas cular accident (CVA) due to occlusion of left vertebral artery Cerebrovas cular accident (CVA) due to occlusion of left vertebral artery Disease Active 0 2-26 00:00: 00 [facility] Bedridden Bedridden Disease Active 0 2-26 00:00: 00 [facility] Wheelchair bound Wheelchair bound Disease Active 2-26 00:00: 00 [facility] Schizophre fidel, unspecifie d type Schizophre fidel, unspecifie d type Disease Active 2-26 00:00: 00 [facility] Need for 23-polyval ent pneumococc al polysaccha ride vaccine Need for 23-polyval ent pneumococc al polysaccha ride vaccine Disease Active 2-26 00:00: 00 [facility] Gastrostom y status Gastrostom y status Disease Active 2019-0318 00:00: 00 [facility] Other complicati ons of procedures , not elsewhere classified , initial encounter Other complicati ons of procedures , not elsewhere classified , initial encounter Disease Active 2019-0318 00:00: 00 [facility] Abnormal surgical wound Abnormal surgical wound Disease Active 2019-0318 00:00: 00 [facility] History of stroke History of stroke Disease Active 2019-03 00:00: 00 [facility] Requires daily assistance for activities of daily living (ADL) and comfort needs Requires daily assistance for activities of daily living (ADL) and comfort needs Disease Active 2019-03 00:00: 00 [facility] Lung mass Lung mass Disease Active 2019-03 00:00: 00 [facility] Speech problem Speech problem Disease Active 2019-03 00:00: 00 [facility] E44.0 Moderate protein calorie malnutriti on E44.0 Moderate protein calorie malnutriti on Disease Active 2019-03 0-13 00:00: 00 [facility] At risk for seizures At risk for seizures Disease Active 2019-03 0 00:00: 00 [facility] Cocaine abuse Cocaine abuse Disease Recurre nce 2019-03 00:00: 00 [facility] At risk for UTI related to indwelling catheter At risk for UTI related to indwelling catheter Disease Active 2019-03 00:00: 00 [facility] Coronary artery disease without angina pectoris Coronary artery disease without angina pectoris Disease Active 07-22 00:00: 00 [facility] Coronary artery disease without angina pectoris Coronary artery disease without angina pectoris Disease Active 07-22 00:00: 00 [facility] HTN (hypertens ion) HTN (hypertens ion) Disease Active 07-22 00:00: 00 [facility] PAD (periphera l artery disease) PAD (periphera l artery disease) Disease Active 05-10 00:00: 00 [facility] PAD (periphera l artery disease) PAD (periphera l artery disease) Disease Active 05-10 00:00: 00 [facility] Respirator y distress Respirator y distress Disease Resolve d 2019-03 0-15 00:00: 00 2020-02-11 00:00:00 2020-02-11 17:46:54 [facility] Acute ischemic left MCA stroke Acute ischemic left MCA stroke Disease Resolve d 2019-03 0-10 00:00: 00 2020-02-11 00:00:00 2020-02-11 17:46:50 [facility] Chest pain Chest pain Disease Resolve d 07-21 00:00: 00 2020-02-11 00:00:00 2020-02-11 17:46:35 [facility] Allergies, Adverse Reactions, Alerts Allergy Name Allergy Type Status Severity Reaction(s) Onset Date Inactive Date Treating Clinician Comments Source No Known Allergie s DA Active U 16 00:00: 00 [facility] NO KNOWN ALLERGIE S Drug Class Active [facility] Social History Social Habit Start Date Stop Date Quantity Comments Source History SDOH Alcohol Frequency [facility] Alcohol Binge [facility] Sexual orientation U [facility] ASSERTION Not [facility] Exposure to SARS-CoV-2 (event) 2020-04-30 00:00:00 2020-05-30 16:22:00 Not sure [facility] Alcoholic beverage intake 2020-04-04 00:00:00 2020-04-04 00:00:00 0 /d [facility] Alcohol intake 2020-01-31 00:00:00 2020-01-31 00:00:00 0 /d [facility] History of Social function 2019-12-13 00:00:00 2019-12-13 00:00:00 [facility] Cigarette pack-years 2019-02-01 00:00:00 2019-02-01 00:00:00 [facility] Cigarettes smoked current (pack per day) - Reported 2019-02-01 00:00:00 2019-02-01 00:00:00 [facility] Tobacco use and exposure 2019-02-01 00:00:00 2019-02-01 00:00:00 Former smokeless tobacco user [facility] Tobacco Comment 2018-10-01 00:00:00 2018-10-01 00:00:00 started smoking at 13 years old, uses a pack every 2 days when not smoking. [facility] Alcohol Comment 2017-06-30 00:00:00 2017-06-30 00:00:00 3 beers daily [facility] History of tobacco use 1973-02-01 00:00:00 1999-06-02 00:00:00 Snuff User [facility] Sex assigned at 1960 00:00:00 1960 00:00:00 [facility] Smoking Status Start Date Stop Date Source Ex-smoker 2019-02-01 00:00:00 2019-02-01 00:00:00 [facility] Current every day smoker 2018-11-14 00:00:00 [facility] Medications Ordered Medication Name Filled Medication Name Start Date Stop Date Current Medication? Ordering Clinician Indication Dosage Frequency Signature (SIG) Comments Components Source risperiDONE 0.5 mg tablet 06 00:00: 00 Yes [id number] Take 1 tablet twice a day through enteral tube for agitation. For breakthrou agitation can take every 6 hours, no more than 4 pills total in 24 hours. If agitation continues call the clinic. [facility] cefpodoxime 100 mg tablet 05-30 00:00: 00 Yes [id number] 100mg Take 1 tablet by mouth 2 (two) times daily. [facility] iohexoL (OMNIPAQUE 300-50 mL)) injection 30 mL 03-28 18:45: 00 03-28 18:15 :00 No 30mL 30 mL, Intravenou s, ONCE, 1 dose, Thu03/28/20 at 1245, Routine [facility] collagenase (SANTYL) 250 unit/gram ointment 2019-03 00:00: 00 Yes [id number] Apply to affected area(s) 2 (two) times daily. [facility] 2019-03 00:00: 00 Yes Patient needs Jevity, she consumes 9 bottles a day. [facility] 2019-03 00:00: 00 Yes Patient needs Jevity, she consumes 9 bottles a day. [facility] lisinopriL 40 mg tablet 2019-03 00:00: 00 Yes [id number] 40mg Take 1 tablet by mouth daily. [facility] Polyethylen e Glycol 3350 17 gram powder 2019-03 00:00: 00 Yes [id number] 17g Take 1 Packet through enteral tube 2 (two) times daily. [facility] aspirin 81 mg chewable tablet 2019-03 00:00: 00 Yes [id number] 81mg Take 1 tablet through enteral tube daily. [facility] clopidogreL 75 mg tablet 2019-03 00:00: 00 Yes [id number] 75mg Take 1 tablet through enteral tube daily. [facility] levETIRAcet am 100 mg/mL oral solution 2019-03 00:00: 00 Yes [id number] 750mg Take 7.5 mL through enteral tube 2 (two) times daily. [facility] amLODIPine 10 mg tablet 2019-03 00:00: 00 Yes [id number] 10mg Take 1 tablet through enteral tube daily. [facility] atorvastati n 40 mg tablet 2019-03 00:00: 00 Yes [id number] 40mg Take 1 tablet through enteral tube at bedtime. [facility] famotidine 20 mg tablet 2019-03 00:00: 00 Yes [id number] 20mg Take 1 tablet by mouth 2 (two) times daily. [facility] risperiDONE 0.5 mg tablet 2019-03 00:00: 00 06-19 00:00 :00 No [id number] .5mg Take 1 tablet through enteral tube 2 (two) times daily. [facility] aspirin 81 mg chewable tablet 2019-03 00:00: 00 02-05 00:00 :00 No [id number] 81mg Take 1 tablet through enteral tube daily. [facility] levETIRAcet am 100 mg/mL oral solution 2019-03 00:00: 00 02-05 00:00 :00 No [id number] 750mg Take 7.5 mL through enteral tube 2 (two) times daily. [facility] clopidogreL 75 mg tablet 2019-03 00:00: 00 02-05 00:00 :00 No [id number] 75mg Take 1 tablet through enteral tube daily for 90 days. [facility] mupirocin (BACTROBAN OINT) 2 % skin ointment 2019-03 01:00: 00 Yes [facility] iohexol (OMNIPAQUE 350 BULK-100 mL) injection 100 mL 2019-03 20:48: 00 01-08 20:48 :00 No 100mL 100 mL, Intravenou s, ONCE, 1 dose, Thu01/09/20 at 1600, Routine [facility] cefTRIAXone (ROCEPHIN) 2,000 mg in NaCl 0.9% (NS) 100 mL MINI-BAG 2019-03 16:00: 00 01-08 19:06 :22 No 2000mg 2,000 mg, IV Piggyback, Q24H ABX, First dose on Thu01/09/20 at 1100, Until Discontinu ed, 100 mL
Reas on for Anti-Infec tive: Documented Infection< br>Documen breanna Infection Site: Urine
D uration of Therapy: 7 days [facility] acetaminoph en (TYLENOL) 160 mg/5 mL liquid 650 mg 2019-03 13:32: 57 Yes 650mg 650 mg, Enteral, Q4HPRN, Starting Thu01/09/20 at 0832, Until Discontinu ed, Routine, Pain (scale 1-3), Pain (scale 4-6) [facility] amLODIPine 10 mg tablet 2019-03 00:00: 02-05 00:00 :00 No [id number] 10mg Take 1 tablet through enteral tube daily. [facility] clopidogreL 75 mg tablet 2019-03 00:00: 00 01-10 00:00 :00 No [id number] 75mg Take 1 tablet through enteral tube daily. [facility] aspirin 81 mg EC tablet 2019-03 00:00: 01-02 00:00 :00 No [id number] 81mg Take 1 tablet by mouth daily for 30 days. [facility] barium sulfate-NO CHARGE- (VARIBAR NECTOR) 40 % (w/v) oral suspension 40 mL 2019-03 15:45: 00 01-02 15:45 :00 No 40mL 40 mL, Oral, ONCE, 1 dose, Thu01/03/20 at 1045, Routine [facility] barium sulfate (LIQUID E-Z PAQUE) 60 % (w/v) oral suspension 40 g 2019-03 15:45: 00 01-02 15:40 :00 No 40g 40 g, Oral, ONCE, 1 dose, Thu01/03/20 at 1045, [facility]ine [facility] lisin[facility] (PRINIVIL,Z ESTRIL) tablet 20 mg 2019-03 13:00: 00 Yes 20mg 20 mg, Enteral, BID, First dose (after last modificati on) on Thu01/03/20 at 0800, Until Discontinu ed, Routine [facility] atorvastati n 40 mg tablet 2019-03 00:00: 02-05 00:00 :00 No [id number] 40mg Take 1 tablet through enteral tube at bedtime. [facility] risperiDONE 0.5 mg tablet 2019-03 00:00: 02-05 00:00 :00 No [id number] .5mg Take 1 tablet through enteral tube 2 (two) times daily. [facility] Polyethylen e Glycol 3350 17 gram powder 2019-03 00:00: 02-05 00:00 :00 No [id number] 17g Take 1 Packet through enteral tube 2 (two) times daily. [facility] famotidine 20 mg tablet 2019-03 00:00: 02-05 00:00 :00 No [id number] 20mg Take 1 tablet by mouth 2 (two) times daily. [facility] lisinopriL 40 mg tablet 2019-03 00:00: 02-05 00:00 :00 No [id number] 40mg Take 1 tablet by mouth daily. [facility] levETIRAcet am 100 mg/mL oral solution 2019-03 00:00: 00 01-10 00:00 :00 No [id number] 750mg Take 7.5 mL through enteral tube 2 (two) times daily. [facility] lisinopriL 20 mg tablet 2019-03 00:00: 01-02 00:00 :00 No [id number] 20mg Take 1 tablet by mouth 2 (two) times daily. [facility] famotidine 40 mg/5 mL (8 mg/mL) suspension 2019-03 00:00: 00 01-02 00:00 :00 No [id number] 20mg Take 2.5 mL through enteral tube 2 (two) times daily for 31 days. [facility] clopidogreL (PLAVIX) tablet 75 mg 2019-03 14:00: 00 Yes 75mg 75 mg, Enteral, DAILY, First dose on Thu01/01/20 at 0900, Until Discontinu ed, Routine [facility] amLODIPine (NORVASC) tablet 10 mg 2019-03 14:00: 00 Yes 10mg 10 mg, Enteral, DAILY, First dose (after last modificati on) on Thu12/31/19 at 0900, Until Discontinu ed, Routine [facility] iohexoL (OMNIPAQUE 300-50 mL)) injection 50 mL 2019-03 00:15: 00 12-30 00:15 :00 No 50mL 50 mL, Injection, ONCE, 1 dose, Thu12/30/19 at 1915, Routine [facility] FENTanyl PF (SUBLIMAZE (PF)) injection 2019-03 23:13: 27 12-29 23:13 :27 No Slow IV Push, PRN, Starting Thu12/30/19 at 1813, Until Thu12/30/19 at 1813, Routine [facility] midazolam (VERSED) injection 2019-03 23:13: 16 12-29 23:13 :16 No IV Push, PRN, Starting Thu12/30/19 at 1813, Until Thu12/30/19 at 1813, Routine [facility] glucagon (GLUCAGEN DIAGNOSTIC KIT) injection 2019-03 23:12: 41 12-29 23:12 :41 No Intravenou s, PRN, Starting Thu12/30/19 at 1812, Until Thu12/30/19 at 1812, Routine [facility] risperiDONE (RISPERDAL) tablet 0.5 mg 2019-03 13:00: 00 Yes .5mg 0.5 mg, Enteral, BID, First dose (after last modificati on) on Thu12/30/19 at 0800, Until Discontinu ed, Routine [facility] acetylcyste ine (MUCOMYST) 200 mg/mL (20 %) solution 200 mg 2019-03 23:00: 00 Yes 1mL 200 mg (1 mL), Inhalation , Q6H, First dose on Thu12/29/19 at 1800, Until Discontinu ed, Routine [facility] glycopyrrol ate (ROBINUL) injection 0.1 mg 2019-03 22:45: 00 12-28 22:15 :00 No .1mg 0.1 mg, Slow IV Push, ONCE, 1 dose, Danay 12/29/19 at 1745, Routine [facility] Saline Bubble Study 2019-03 21:11: 28 Yes 6mL 6 mL, Injection, SEE-INSTRU CTIONS, 2 doses, Starting Thu12/29/19 at 1611, Until Discontinu ed, Routine [facility] Saline Bubble Study 2019-03 21:11: 27 Yes 6mL 6 mL, Injection, SEE-INSTRU CTIONS, 2 doses, Starting Dan[place] 12/29/19 at 1611, Until Discontinu ed, Routine [facility] ipratropium -albuteroL (DUONEB) 0.5 mg-3 mg(2.5 mg base)/3 mL nebulizer solution 3 mL 2019-03 21:00: 00 12-29 02:32 :45 No 3mL 3 mL, Inhalation , QID, First dose on Thu12/29/19 at 1600, Until Discontinu ed, Routine [facility] piperacilli n-tazobacta m (ZOSYN) 3.375 g in NaCl 0.9% (NS) 100 mL MINI-BAG 2019-03 18:00: 00 01-01 18:08 :52 No 3.375g 3.375 g, IV Piggyback, Q6H ABX, First dose on Thu12/29/19 at 1300, Until Discontinu ed, 100 mL
Reas on for Anti-Infec tive: Empiric Therapy for Suspected Infection< br>Empiric Therapy Site: Respirator y
Durat ion of therapy: 72 hours [facility] chlorhexidi ne (PERIDEX) 0.12 % mouthwash 15 mL 2019-03 17:00: 00 Yes 15mL 15 mL, Oral (Swish And Spit Out), Q6H, First dose on Thu12/29/19 at 1200, Until Discontinu ed, Routine [facility] ipratropium -albuteroL (DUONEB) 0.5 mg-3 mg(2.5 mg base)/3 mL nebulizer solution 3 mL 2019-03 05:00: 00 Yes 3mL 3 mL, Inhalation , Q6H ABX, First dose (after last modificati on) on Thu12/29/19 at 0000, Until Discontinu ed, Routine [facility] levETIRAcet am (KEPPRA) 100 mg/mL oral solution 750 mg 2019-03 01:00: 00 Yes 750mg 750 mg, Enteral, BID, First dose on Thu12/28/19 at 2000, Until Discontinu ed, Routine [facility] risperiDONE (RISPERDAL) tablet 1 mg 2019-03 01:00: 00 12-29 11:17 :47 No 1mg 1 mg, Enteral, BID, First dose (after last modificati on) on Thu12/28/19 at 2000, Until Discontinu ed, Routine [facility] ipratropium (ATROVENT) 0.02 % nebulizer solution 0.5 mg 2019-03 17:00: 00 12-28 17:04 :12 No .5mg 0.5 mg, Inhalation , QID, First dose (after last modificati on) on Thu12/28/19 at 1200, Until Discontinu ed, Routine [facility] scopolamine transdermal (TRANSDERM- SCOP) patch 1.5 mg 2019-03 15:00: 00 01-04 18:36 :39 No 1.5mg 1.5 mg, Topical, Administer over 72 Hours, Q72H, First dose on Thu12/28/19 at 1000, Until Discontinu ed, Routine [facility] KCL 20 mEq/15 mL solution 40 mEq 2020-1 0-14 13:30: 00 12-27 13:08 :00 No 40meq 40 mEq, Enteral, ONCE, 1 dose, Thu12/28/19 at 0830, Routine [facility] NaCl 0.9% (NS) IV infusion 1,000 mL 2019-03 08:30: 00 12-28 17:04 :22 No 1000mL at 100 mL/hr, IV Infusion, CONTINUOUS , Starting Thu12/28/19 at 0330, Until Thu12/29/19 at 1204, Routine [facility] Polyethylen e Glycol 3350 (MIRALAX) powder 17 g 2019-03 01:00: 00 Yes 17g 17 g, Enteral, BID, First dose on Thu12/27/19 at 2000, Until Discontinu ed, Routine [facility] ipratropium (ATROVENT) 0.02 % nebulizer solution 0.5 mg 2019-03 01:00: 00 12-27 14:37 :05 No .5mg 0.5 mg, Inhalation , TID, First dose on Thu12/27/19 at 2000, Until Discontinu ed, Routine [facility] sennosides- docusate sodium (SENOKOT-S) 8.6-50 mg per tablet 1 tablet 2019-03 18:45: 00 Yes 1{tbl} 1 tablet, Enteral, BID, First dose on Thu12/27/19 at 1345, Until Discontinu ed, Routine [facility] amLODIPine (NORVASC) tablet 5 mg 2019-03 14:00: 00 12-30 11:57 :17 No 5mg 5 mg, Enteral, DAILY, First dose on Thu12/27/19 at 0900, Until Discontinu ed, Routine [facility] LORazepam (ATIVAN) injection 2 mg 2019-03 13:30: 00 12-26 13:29 :00 No 2mg 2 mg, Slow IV Push, ONCE, 1 dose, Thu12/27/19 at 0830, Routine [facility] magnesium sulfate in water 2 gram/50 mL (4 %) infusion 2 g 2019-03 13:15: 00 12-26 12:42 :00 No 2g 2 g, IV Piggyback, ONCE, 1 dose, Thu12/27/19 at 0815, Routine [facility] QUEtiapine (SEROQUEL) tablet 25 mg 2019-03 09:30: 00 12-26 08:29 :00 No 25mg 25 mg, Enteral, ONCE, 1 dose, Thu12/27/19 at 0430, Routine [facility] lisinopriL (PRINIVIL,Z ESTRIL) tablet 10 mg 2019-03 01:00: 00 01-02 12:46 :12 No 10mg 10 mg, Enteral, BID, First dose (after last modificati on) on Thu12/26/19 at 1999, Until Discontinu ed, Routine [facility] risperiDONE (RISPERDAL) tablet 2 mg 2019-03 01:00: 00 12-27 13:55 :41 No 2mg 2 mg, Enteral, BID, First dose (after last modificati on) on Thu12/26/19 at 1999, Until Discontinu ed, Routine [facility] hydralAZINE (APRESOLINE ) injection 10 mg 2019-03 22:10: 44 Yes 10mg 10 mg, Slow IV Push, Q6HPRN, Starting Thu12/26/19 at 1710, Until Discontinu ed, Routine, SBP > 160
Ind ication: Hypertensi ve Emergency [facility] LORazepam (ATIVAN) injection 1 mg 2019-03 21:45: 00 12-25 20:49 :00 No 1mg 1 mg, Slow IV Push, ONCE, 1 dose, Thu12/26/19 at 1645, Routine [facility] LORazepam (ATIVAN) injection 2 mg 2019-03 15:15: 00 12-25 15:25 :00 No 2mg 2 mg, Slow IV Push, ONCE, 1 dose, Thu12/26/19 at 1015, Routine [facility] clopidogreL (PLAVIX) tablet 75 mg 2019-03 14:00: 00 12-26 22:55 :53 No 75mg 75 mg, Enteral, DAILY, First dose (after last modificati on) on 12/26/19 at 0900, Until Discontinu ed, Routine [facility] lisinopriL (PRINIVIL,Z ESTRIL) tablet 5 mg 2019-03 12:15: 00 12-25 19:54 :51 No 5mg 5 mg, Enteral, DAILY, First dose on 12/26/19 at 0715, Until Discontinu ed, Routine [facility] levETIRAcet am (KEPPRA) 750 mg in NaCl 0.9% (NS) 100 mL IV infusion 2019-03 01:00: 00 12-27 14:14 :01 No 750mg 750 mg, IV Infusion, Q12H, First dose (after last reorder) on 12/25/19 at 2000, Until Discontinu ed, 100 mL [facility] levETIRAcet am (KEPPRA) in NACL (ISO-OS) 1,000 mg/100 mL RTU 2019-03 14:15: 00 12-24 13:31 :00 No 1000mg 1,000 mg, IV Infusion, ONCE, 1 dose, 12/25/19 at 0915, 100 mL [facility] LORazepam (ATIVAN) injection 2 mg 2019-03 14:15: 00 12-24 13:15 :00 No 2mg 2 mg, Slow IV Push, ONCE, 1 dose, [place] 12/25/19 at 0915, Routine [facility] aspirin EC tablet 81 mg 2019-03 14:00: 00 Yes 81mg 81 mg, Enteral, DAILY, First dose on 12/25/19 at 0900, Until Discontinu ed, Routine [facility] clopidogreL (PLAVIX) tablet 75 mg 2019-03 14:00: 00 12-25 12:12 :59 No 75mg 75 mg, Oral, DAILY, First dose on 12/25/19 at 0900, Until Discontinu ed, Routine [facility] risperiDONE (RISPERDAL) tablet 2 mg 2019-03 14:00: 00 12-25 22:14 :05 No 2mg 2 mg, Enteral, QAM, First dose on 12/25/19 at 0900, Until Discontinu ed, Routine [facility] niCARdipine (CARDENE I.V.) 40 mg in 200 mL 0.83% Sodium Chloride (RTU) infusion 2019-03 13:02: 45 12-27 14:14 :18 No 2.5mg/h 2.5-15 mg/hr (12.5-75 mL/hr), IV Infusion, TITRATE, SBP goal - 120-160, Starting [place] 12/25/19 at 0802
In itiate infusion at 2.5 mg/hr.&nbs p; Ti trate by 2.5 mg/hr every 5 minutes to 15 minutes as needed to achieve and maintain goal blood pressure. Maximum dose = 15 mg/hr. If goal not maintained at maximum allowed dose, contact prescriber .
[facility] atorvastati n (LIPITOR) tablet 40 mg 2019-03 02:00: 00 Yes 40mg 40 mg, Enteral, QHS, First dose on 12/24/19 at 2100, Until Discontinu ed, [facility] 40 mg/5 mL (8 mg/mL) suspension 20 mg 2019-03 01:00: 00 Yes 20mg 20 mg, Enteral, BID, First dose on 12/24/19 at 2000, Until Discontinu ed, Routine [facility] heparin (porcine) injection 5,000 Units 2019-03 01:00: 00 Yes 5000U 5,000 Units, Subcutaneo us, Q12H, First dose on 12/24/19 at 2000, Until Discontinu ed, [facility] iohexol (OMNIPAQUE 350 BULK-100 mL) injection 100 mL 2019-03 22:43: 00 12-23 22:43 :00 No 100mL 100 mL, Intravenou s, ONCE, 1 dose, 12/24/19 at 1800, Routine [facility] niCARdipine (CARDENE I.V.) 40 mg in 200 [...] at maximum allowed dose, contact prescriber .
[facility] NaCl 0.9% (NS) 1000 mL + KCL 20 mEq 2019-03 21:30: 00 12-25 14:10 :24 No IV Infusion, at 75 mL/hr, CONTINUOUS , Starting 12/24/19 at 1630, Until 12/26/19 at 0910, Routine [facility] aspirin suppository 300 mg 2019-03 20:00: 00 12-23 19:41 :00 No 300mg 300 mg, Rectal, ONCE, 1 dose, 12/24/19 at 1500, GAVI [facility] LORazepam (ATIVAN) injection 0.5 mg 2019-03 18:30: 00 12-23 17:48 :00 No .5mg 0.5 mg, Slow IV Push, ONCE, 1 dose, 12/24/19 at 1330, GAVI [facility] ketorolac (TORADOL) injection 30 mg 2019-03 21:30: 00 12-15 20:29 :00 No [id number] 30mg [facility] meloxicam 7.5 mg tablet 2019-03 00:00: 00 01-02 00:00 :00 No [id number] 7.5mg Take 1 tablet by mouth daily. Ok to take 15mg daily (2 tablets) if 1 tablet does not help the pain. Take with food. [facility] metoprolol succinate XL 50 mg 24 hr tablet 12-12 00:00: 01-02 00:00 :00 No [id number] 50mg Take 1 tablet by mouth daily. [facility] simvastatin 40 mg tablet 12-12 00:00: 01-02 00:00 :00 No [id number] 40mg Take 1 tablet by mouth at bedtime. [facility] metoprolol succinate XL 50 mg 24 hr tablet 07-25 00:00: 12-12 00:00 :00 No [id number] 50mg Take 1 tablet by mouth daily. [facility] simvastatin 40 mg tablet 2018-03 00:00: 00 12-12 00:00 :00 No [id number] 40mg Take 1 tablet by mouth at bedtime. [facility] metoprolol succinate XL 100 mg 24 hr tablet 2018-03 00:00: 07-25 00:00 :00 No [id number] 07 100mg Take 1 tablet by mouth daily. [facility] NaCl 0.9% (NS) bolus infusion 1,000 mL 11-14 22:15: 00 11-14 22:30 :00 No 1000mL at 999 mL/hr, 1,000 mL, IV Infusion, ONCE, 1 dose, 11/14/18 at 1715, STAT [facility] Diclofenac Sodium (VOLTAREN) 1 % gel 10-01 00:00: 00 Yes [id number] 07 Take 2-4 grams three times a day as needed for pain [facility] Diclofenac Sodium (VOLTAREN) 1 % gel 07-22 00:00: 00 10-01 00:00 :00 No [id number] Take 2-4 grams three times a day as needed for pain [facility] metoprolol succinate XL 100 mg 24 hr tablet 07-13 00:00: 00 Yes [id number] 07 100mg Take 1 tablet by mouth daily. [facility] simvastatin 40 mg tablet 07-01 00:00: 00 Yes [id number] 07 40mg Take 1 tablet by mouth at bedtime. [facility] Diclofenac Sodium (VOLTAREN) 1 % gel 07-01 00:00: 00 07-22 00:00 :00 No [id number] Take 2-4 grams three times a day as needed for pain [facility] metoprolol succinate XL 50 mg 24 hr tablet 07-01 00:00: 00 07-13 00:00 :00 No [id number] 07 50mg Take 1 tablet by mouth daily. [facility] metoprolol succinate XL 50 mg 24 hr tablet 2017-03 00:00: 00 07-01 00:00 :00 No [id number] 07 50mg Take 1 tablet by mouth daily. [facility] simvastatin 40 mg tablet 2017-03 00:00: 07-01 00:00 :00 No [id number] 07 40mg Take 1 tablet by mouth at bedtime. [facility] aspirin 81 mg EC tablet 07-08 00:00: 00 01-02 00:00 :00 No 81mg Take 1 tablet by mouth daily. [facility] citalopram (CELEXA) 40 mg tablet 08-23 00:00: 01-02 00:00 :00 No 40mg Take 1 Tab by mouth daily. [facility] risperiDONE (RISPERDAL) 2 mg tablet 08-23 00:00: 01-02 00:00 :00 No 2mg Take 1 Tab by mouth every morning. [facility] No known medications No Un shane [facility] Vital Signs Vital Name Observation Time Observation Value Comments S ource Heart rate 2020-05-30 20:19:00 120 /min [facility] Respiratory rate 2020-05-30 20:19:00 24 /min [facility] Systolic blood pressure 2020-05-30 20:18:00 119 mm[Hg] [facility] Diastolic blood pressure 2020-05-30 20:18:00 88 mm[Hg] [facility] Body temperature 2020-05-30 20:18:00 36.78 Donna [facility] Oxygen saturation in Arterial blood by Pulse oximetry 2020-05-30 20:18:00 100 /min [facility] Systolic blood pressure 2020-03-27 19:47:00 128 mm[Hg] [facility] Diastolic blood pressure 2020-03-27 19:47:00 70 mm[Hg] [facility] Heart rate 2020-03-27 19:47:00 77 /min [facility] Body temperature 2020-03-27 19:47:00 36.44 Donna [facility] Respiratory rate 2020-03-27 19:47:00 14 /min [facility] Body height 2020-03-27 19:47:00 160 cm [facility] Systolic blood pressure 2020-03-05 16:06:00 106 mm[Hg] [facility] Diastolic blood pressure 2020-03-05 16:06:00 71 mm[Hg] [facility] Heart rate 2020-03-05 16:06:00 69 /min [facility] Body height 2020-03-05 16:06:00 160 cm [facility] Body weight 2020-03-05 16:06:00 51.71 kg came in transport bed - last weight [facility] BMI 2020-03-05 16:06:00 20.19 kg/m2 [facility] Oxygen saturation in Arterial blood by Pulse oximetry 2020-03-05 16:06:00 96 /min [facility] Systolic blood pressure 2020-02-06 17:33:00 139 mm[Hg] [facility] Diastolic blood pressure 2020-02-06 17:33:00 89 mm[Hg] [facility] Heart rate 2020-02-06 17:33:00 72 /min [facility] Body temperature 2020-02-06 17:33:00 36.67 Donna [facility] Respiratory rate 2020-02-06 17:33:00 18 /min [facility] Oxygen saturation in Arterial blood by Pulse oximetry 2020-02-06 17:33:00 100 /min [facility] Systolic blood pressure 2020-01-31 16:49:00 122 mm[Hg] [facility] Diastolic blood pressure 2020-01-31 16:49:00 75 mm[Hg] [facility] Heart rate 2020-01-31 16:49:00 84 /min [facility] Body temperature 2020-01-31 16:49:00 37 Donna [facility] Respiratory rate 2020-01-31 16:49:00 20 /min [facility] Body height 2020-01-31 16:49:00 160 cm [facility] Oxygen saturation in Arterial blood by Pulse oximetry 2020-01-31 16:49:00 98 /min [facility] Systolic blood pressure 2020-01-11 20:00:00 121 mm[Hg] [facility] Diastolic blood pressure 2020-01-11 20:00:00 58 mm[Hg] [facility] Heart rate 2020-01-11 20:00:00 88 /min [facility] Body temperature 2020-01-11 20:00:00 36.56 Donna [facility] Respiratory rate 2020-01-11 20:00:00 20 /min [facility] Oxygen saturation in Arterial blood by Pulse oximetry 2020-01-11 20:00:00 96 /min [facility] Body weight 2020-01-10 18:00:00 51.982 kg [facility] BMI 2020-01-10 18:00:00 20.30 kg/m2 [facility] Body height 2019-12-24 21:00:00 160 cm [facility] Body height 2019-12-13 18:42:00 167.6 cm [facility] Body weight 2019-12-13 18:42:00 51.438 kg [facility] BMI 2019-12-13 18:42:00 18.30 kg/m2 [facility] Oxygen saturation in Arterial blood by Pulse oximetry 2019-12-13 18:42:00 96 /min [facility] Systolic blood pressure 2019-12-13 18:42:00 130 mm[Hg] [facility] Diastolic blood pressure 2019-12-13 18:42:00 87 mm[Hg] [facility] Heart rate 2019-12-13 18:42:00 76 /min [facility] Respiratory rate 2019-12-13 18:42:00 19 /min [facility] Systolic blood pressure 2019-12-16 19:44:00 143 mm[Hg] [facility] Diastolic blood pressure 2019-12-16 19:44:00 89 mm[Hg] [facility] Heart rate 2019-12-16 19:42:00 85 /min [facility] Body temperature 2019-12-16 19:42:00 37.06 Donna [facility] Respiratory rate 2019-12-16 19:42:00 18 /min [facility] Body weight 2019-12-16 19:42:00 51.347 kg [facility] BMI 2019-12-16 19:42:00 18.27 kg/m2 [facility] Oxygen saturation in Arterial blood by Pulse oximetry 2019-12-16 19:42:00 96 /min [facility] Systolic blood pressure 2018-11-14 22:00:00 136 mm[Hg] [facility] Diastolic blood pressure 2018-11-14 22:00:00 76 mm[Hg] [facility] Heart rate 2018-11-14 22:00:00 65 /min [facility] Respiratory rate 2018-11-14 22:00:00 16 /min [facility] Oxygen saturation in Arterial blood by Pulse oximetry 2018-11-14 22:00:00 96 /min [facility] Body temperature 2018-11-14 20:57:00 37.67 Donna [facility] Body weight 2018-11-14 20:57:00 51.256 kg [facility] BMI 2018-11-14 20:57:00 18.24 kg/m2 [facility] Systolic blood pressure 2018-10-01 19:47:00 170 mm[Hg] [facility] Diastolic blood pressure 2018-10-01 19:47:00 111 mm[Hg] [facility] Body temperature 2018-10-01 19:43:00 36.17 Donna [facility] Respiratory rate 2018-10-01 19:43:00 18 /min [facility] Body weight 2018-10-01 19:43:00 51.619 kg [facility] BMI 2018-10-01 19:43:00 18.37 kg/m2 [facility] Systolic blood pressure 2018-07-01 17:51:00 159 mm[Hg] [facility] Diastolic blood pressure 2018-07-01 17:51:00 110 mm[Hg] [facility] Heart rate 2018-07-01 17:49:00 71 /min [facility] Body temperature 2018-07-01 17:49:00 36.39 Donna [facility] Respiratory rate 2018-07-01 17:49:00 18 /min [facility] Body height 2018-07-01 17:49:00 167.6 cm [facility] Body weight 2018-07-01 17:49:00 52.617 kg [facility] BMI 2018-07-01 17:49:00 18.72 kg/m2 [facility] Oxygen saturation in Arterial blood by Pulse oximetry 2018-07-01 17:49:00 99 /min [facility] Procedures Procedure Date / Time Performed Performing Clinician Source [facility] - OTHER 2020-07-19 05:01:00 Doctor Unassigned, [place] [facility] - OTHER 2020-06-28 05:01:00 Doctor Unassigned, [place] [facility] - OTHER 2020-06-07 05:01:00 Doctor Unassigned, [place] [facility] CONSENT/REFUSAL FOR DIAGNOSI S AND TREATMENT 2020-05-30 21:08:14 Doctor Unassigned, [place] [facility] - OTHER 2020-05-17 06:01:00 Doctor Unassigned, [place] [facility] 485 2020-05-11 06:01:00 Doctor Unassigned, [place] [facility] - OTHER 2020-04-10 06:01:00 Doctor Unassigned, [place] [facility] IR GASTRO TUBE CHANGE (WITH FLUORO) 2020-03-28 18:40:44 Alberto Marcial [facility] - OTHER 2020-03-01 06:01:00 Doctor Unassigned, [place] [facility] - OTHER 2020-02-28 06:01:00 Doctor Unassigned, [place] [facility] REFERRAL- REQUEST/RESPONSE 2020-02-24 06:01:00 Doctor Unassigned, [place] [facility] DME/SUPPLY JUSTIFICATION 2020-02-23 06:01:00 Doctor Unassigned, [place] [facility] INSURANCE CORRESPONDENCE 2020-02-21 06:01:00 Doctor Unassigned, [place] [facility] PHYSICIAN CERTIFICATION STATEMENT 2020-02-16 06:01:00 Doctor Unassigned, [place] [facility] HOME HEALTH - OTHER 2020-02-14 06:01:00 Doctor Unassigned, [place] [facility] EXTERNAL PROVIDER RECORDS 2020-02-02 06:01:00 Doctor Unassigned, [place] [facility] - OTHER 2020-01-31 06:01:00 Doctor Unassigned, [place] [facility] PHYSICIAN CERTIFICATION STATEMENT 2020-01-30 06:01:00 Doctor Unassigned, [place] [facility] PHYSICIAN CERTIFICATION STATEMENT 2020-01-19 06:01:00 Doctor Unassigned, [place] [facility] CBC WITH DIFF 2020-01-11 08:28:00 [facility] CBC WITH DIFF 2020-01-10 08:12:00 [facility] HEPATIC FUNCTION PANEL ([id number]) (ALB,T.PRO,BILI T,BU/BC,ALT,AST,ALK PHOS) 2020-01-09 21:38:[address] [facility] CT THORAX W CONTRAST 2020-01-09 20:54:33 [facility] WOUND CULTURE 2020-01-09 16:15:00 Ata [facility] BILATERAL VENOUS DUPLEX LOWE R EXTREMITY BY VASCULAR LAB 2020-01-09 14:33:05 Gurdeep Nevarez [facility] URINALYSIS 2020-01-09 14:07:00 [facility] BLOOD CULTURE SCREEN 2020-01-09 14:04:00 [facility] CBC WITH DIFF 2020-01-09 08:47:00 [facility] 2020-01-08 06:05:00 Ata [facility] XR CHEST 1 VW 2020-01-07 14:55:00 Ata [facility] BASIC METABOLIC PANEL (NA, K , CL, CO2, GLUCOSE, BUN, CREATININE, CA) 2020-01-07 09:38:00 [facility] CBC WITHOUT DIFF 2020-01-07 09:38:00 [facility] URINALYSIS 2020-01-05 23:45:00 [facility] BASIC METABOLIC PANEL (NA, K , CL, CO2, GLUCOSE, BUN, CREATININE, CA) 2020-01-05 13:56:00 [facility] CBC WITHOUT DIFF 2020-01-05 13:56:00 [facility] FL MODIFIED BARIUM SWALLOW 2020-01-03 16:00:00 [facility] MAGNESIUM 2020-01-01 09:26:00 Ata [facility] BASIC METABOLIC PANEL (NA, K , CL, CO2, GLUCOSE, BUN, CREATININE, CA) 2020-01-01 09:26:00 Ata [facility] CBC WITH DIFF 2020-01-01 09:26:00 Ata [facility] MAGNESIUM 2019-12-31 09:11:00 Ata [facility] BASIC METABOLIC PANEL (NA, K , CL, CO2, GLUCOSE, BUN, CREATININE, CA) 2019-12-31 09:11:00 Ata [facility] CBC WITH DIFF 2019-12-31 09:11:00 Ata [facility] IR G-TUBE PLACEMENT PERCUTANEOUS 2019-12-31 00:10:55 Ata [facility] XR CHEST 1 VW 2019-12-30 12:07:29 Jason Bloom [facility] EKG-12 LEAD 2019-12-30 08:41:42 Leland Richards [facility] MAGNESIUM 2019-12-30 08:24:00 Ata [facility] BASIC METABOLIC PANEL (NA, K , CL, CO2, GLUCOSE, BUN, CREATININE, CA) 2019-12-30 08:24:00 Ata [facility] CBC WITH DIFF 2019-12-30 08:24:00 Thcorin [facility] XR KUB 2019-12-29 20:29:00 corin [facility] ECHO ROUTINE W/DOPPLER COLOR 2019-12-29 19:46:13 Ata [facility] XR CHEST 1 VW 2019-12-29 17:10:37 corin [facility] EKG-12 LEAD 2019-12-29 16:53:21 Maurice [facility] AC PANEL 20 + LACTIC ACID 2019-12-29 16:51:00 jackykaiser [facility] POCT GLUCOSE (AUTOMATED) 2019-12-29 16:37:00 Maurice [facility] MAGNESIUM 2019-12-29 09:38:00 [facility] BASIC METABOLIC PANEL (NA, K , CL, CO2, GLUCOSE, BUN, CREATININE, CA) 2019-12-29 09:38:00 corin [facility] CBC WITH DIFF 2019-12-29 09:38:00 [facility] ECHO ROUTINE W/DOPPLER COLOR 2019-12-28 15:32:46 [facility] CBC WITH DIFF 2019-12-28 08:19:00 corin [facility] MAGNESIUM 2019-12-28 07:37:00 [facility] BASIC METABOLIC PANEL (NA, K , CL, CO2, GLUCOSE, BUN, CREATININE, CA) 2019-12-28 07:37:00 jackykaiser [facility] PROTHROMBIN TIME / INR 2019-12-28 07:37:00 [facility] N-TERMINAL PRO-BNP 2019-12-28 07:37:00 jackykaiser [facility] EKG-12 LEAD 2019-12-27 15:01:38 Maurice [facility] MAGNESIUM 2019-12-27 08:29:00 Ata [facility] BASIC METABOLIC PANEL (NA, K , CL, CO2, GLUCOSE, BUN, CREATININE, CA) 2019-12-27 08:29:00 Merle [facility] CBC WITH DIFF 2019-12-27 08:29:00 Merle [facility] ELECTROENCEPHALOGRAM 2019-12-27 00:00:00 Ata [facility] XR KUB 2019-12-26 21:35:00 Ata [facility] ECHO ROUTINE W/DOPPLER COLOR 2019-12-26 20:25:50 [facility] MR BRAIN WO CONTRAST 2019-12-26 16:45:00 [facility] EKG-12 LEAD 2019-12-26 12:44:21 Leland Richards [facility] TROPONIN I 2019-12-26 09:05:00 Ata [facility] BASIC METABOLIC PANEL (NA, K , CL, CO2, GLUCOSE, BUN, CREATININE, CA) 2019-12-26 09:05:00 Merle [facility] CBC WITH DIFF 2019-12-26 09:05:00 [facility] XR KUB 2019-12-26 06:06:27 [facility] BLOOD CULTURE SCREEN 2019-12-25 08:26:00 [facility] BLOOD CULTURE SCREEN 2019-12-25 08:06:00 [facility] BASIC METABOLIC PANEL (NA, K , CL, CO2, GLUCOSE, BUN, CREATININE, CA) 2019-12-25 08:06:00 [facility] CBC WITHOUT DIFF 2019-12-25 08:06:00 [facility] EKG-12 LEAD 2019-12-25 07:49:35 Reinaldo Cast [facility] XR ABDOMEN 1 VW 2019-12-25 02:38:[address] [facility] CT ANGIOGRAM HEAD 2019-12-24 22:57:[address] [facility] [address] ANGIOGRAM NECK 2019-12-24 22:57:09 [facility] EKG-12 LEAD 2019-12-24 22:15:34 Vinay [facility] MRSA / MSSA SCREEN BY PCR, [place] 2019-12-24 21:53:00 [facility] COVID-19 (ID NOW RAPID TESTING) 2019-12-24 18:53:[facility] 2019-12-24 18:27:24 [facility] 1 VW 2019-12-24 18:27:05 Vinay [facility] URINALYSIS 2019-12-24 17:43:00 Vinay [facility] ADC / LCC - DRUG SCREEN TRIAGE 2019-12-24 17:42:00 [facility] 2019-12-24 17:41[facility]00 [facility] TROPON[facility] 2019-12-24 17:41:00 Vinay [facility] FREE T4 2019-12-24 17:41:00 Vinay [facility] THYROID STIMULATING HORMONE 2019-12-24 17:41:00 Vinay [facility] HEPATIC FUNCTION PANEL ([id number]) (ALB,T.PRO,BILI T,BU/BC,ALT,AST,ALK PHOS) 2019-12-24 17:41:00 Vinay [facility] BASIC METABOLIC PANEL (NA, K , CL, CO2, GLUCOSE, BUN, CREATININE, CA) 2019-12-24 17:41:00 Vinay [facility] LIPID PANEL ([id number])(TOTAL CHOLESTEROL, TRIGLYCERIDES, HDL) 2019-12-24 17:41:00 [facility] SALICYLATE 2019-12-24 17:41:00 Vinay [facility] ETHANOL 2019-12-24 17:41:00 Vinay [facility] CBC WITH DIFF 2019-12-24 17:41:00 Vinay [facility] GLYCOSYLATED HEMOGLOBIN (A1C) 2019-12-24 17:41:00 Pedro Pablo Newsome [facility] PROTHROMBIN TIME / INR 2019-12-24 17:41:00 Ang Mclean [facility] ACTIVATED PARTIAL THRMPLAS SAMARIA 2019-12-24 17:41:00 Ang Mclean [facility] FREE T3 2019-12-24 17:41:00 Ang Mclean [facility] AC PANEL 21 + LACTIC ACID 2019-12-24 17:40:00 Ang Mclean [facility] EKG-12 LEAD 2019-12-24 17:22:27 Ang Mclean [facility] EKG-12 LEAD 2019-12-24 17:21:35 Ang Mclean [facility] EMERGENCY DEPARTMENT DOCUMENTS 2019-12-24 05:01:00 Doctor Unassigned, [place] [facility] EMERGENCY SERVICES AGREEMENT S AND AUTHORIZATIONS 2019-12-24 05:01:00 Doctor Unassigned, [place] [facility] HOSPITAL ADMISSION 2019-12-24 05:01:00 Doctor Unassigned, [place] [facility] EKG-12 LEAD 2019-12-13 18:42:43 Daya Love [facility] CONSENT/REFUSAL FOR DIAGNOSI S AND TREATMENT 2019-12-13 18:10:16 Doctor Unassigned, [place] [facility] XR CHEST 1 VW 2018-11-14 21:58:13 Munir Chadwick [facility] CT HEAD WO CONTRAST 2018-11-14 21:47:52 Munir Chadwick [facility] THYROID STIMULATING HORMONE 2018-11-14 21:23:00 Munir Chadwick [facility] COMP. METABOLIC PANEL ([id number]) 2018-11-14 21:23:00 Munir Chadwick [facility] ACETAMINOPHEN 2018-11-14 21:23:00 Munir Chadwick [facility] ETHANOL 2018-11-14 21:23:00 Munir Chadwick [facility] CBC WITH DIFFERENTIAL 2018-11-14 21:23:00 Munir Chadwick [facility] URINALYSIS 2018-11-14 21:23:00 Munir Chadwick [facility] ADC / LCC - DRUG SCREEN TRIAGE 2018-11-14 21:23:00 Munir Chadwick [facility] EKG-12 LEAD 2018-11-14 21:13:40 Munir Chadwick [facility] HEPATITIS B SURFACE ANTIBODY 2018-10-01 21:07:00 Bev Chauhan [facility] HEPATITIS B SURFACE ANTIGEN 2018-10-01 21:07:00 Bev Chauhan [facility] HCV ANTIBODY 2018-10-01 21:07:00 Bev Chauhan [facility] HEPATITIS B CORE ANTIBODY IGM 2018-10-01 21:07:00 Bev Chauhan [facility] GC & CHLAMYDIA AMPLIFIED ASSAY 2018-10-01 21:07:00 Bev Chauhan [facility] HCV BY PCR 2018-10-01 21:07:00 Bev Chauhan [facility] HBV BY REAL-TIME PCR 2018-10-01 21:07:00 Bev Chauhan [facility] ADC OR LIV ONLY - RPR 2018-10-01 21:07:00 Bev Chauhan [facility] HIV 1/2 AG-AB WITH REFLEX 2018-10-01 21:07:00 Bev Chauhan [facility] VITAMIN B6, PLASMA 2018-10-01 19:03:00 Bev Chauhan [facility] VITAMIN B12, LEVEL 2018-10-01 19:03:00 Bev Chauhan [facility] FOLATE 2018-10-01 19:03:00 Bev Chauhan [facility] CBC WITH DIFFERENTIAL 2018-10-01 19:03:00 Bev Chauhan [facility] HIGH SENSITIVITY CRP 2018-10-01 19:03:00 Bev Chauhan [facility] HOMOCYSTEINE 2018-10-01 19:03:00 Bev Chauhan [facility] VITAMIN D, 25-OH 2018-10-01 19:03:00 Bev Chauhan [facility] VITAMIN B1 (THIAMINE), WHOLE BLOOD 2018-10-01 19:03:00 Bev Chauhan [facility] NM MYOCARDIUM PERFUSION 2014-04-13 18:30:00 Ivette Sparks [facility] Encounters Start Date/Time End Date/Time Encounter Type Admission Type Attending Clinicians Care Facility Care Department Encounter ID Source 2022-12-19 14:40:56 Emergency HFD HFD [id number] [facility] Fire Depart ent 2021-01-13 06:44:16 Emergency [facility] [id number] [facility] 2021-01-11 22:13:22 Emergency [facility] [id number] [facility] 2020-04-23 00:00:00 2024-07-07 21:49:49 Letter (Out[facility] Heart [facility] 1.0.114 350.1.13.10 4.2.7.2.686 [id number] [facility] 2014-04-13 00:00:00 2024-04-30 04:32:26 Orders Only Doctor Unassigned, [place] Doctor Unassigned, [place] [facility] ([facility]) 1.2.114 350.1.13.10 4.2.7.2.686 [id number] [id number] [facility] 2022-11-30 19:40:00 2022-12-02 17:14:00 Inpatient Tre Jamil [facility] [id number] [facility] 2021-02-27 00:00:00 2021-02-27 00:00:00 Case Management Jazz Larkin 1.20.114 350.1.13.10 4.2.7.2.686 [id number] [facility] 2020-11-20 00:00:00 2020-11-20 00:00:00 Patient Secure Msg Doctor Unassigned, [place] YANELI DUONG 1.2840.114 350.1.13.10 4.2.7.2.686 [id number] 086 [id number] [facility] 2020-11-20 00:00:00 2020-11-20 00:00:00 Telephone Tanna Ward ..840.114 350.1.13.10 4.2.7.2.686 [id number] 086 [id number] [facility] 2020-10-15 00:00:00 2020-10-15 00:00:00 Telephone DevonteIndira [facility] Jocelyne [facility] ..840.114 350.1.13.10 4.2.7.2.686 [id number] [facility] 2020-10-09 09:00:00 2020-10-09 09:00:00 Outpatient SONIA ROMERO [facility] [id number] [facility] 2020-09-03 00:00:00 2020-09-03 00:00:00 Outpatient LEANNE JACOBSEN [facility] [id number] [facility] 2020-08-28 13:00:00 2020-08-28 13:00:00 Outpatient RUDY HARRIS [facility] [id number] [facility] 2020-08-28 07:49:14 2020-08-28 08:19:14 Telemedici ne Visit Rudy King a [facility] .840.114 350.1.13.10 4.2.7.2.686 [id number] [facility] 2020-08-08 09:40:00 2020-08-08 09:40:00 Outpatient MAN HANNA [facility] [id number] [facility] 2020-08-01 00:00:00 2020-08-01 00:00:00 Outpatient ALBERTO ANDREW [facility] [id number] [facility] 2020-07-19 00:00:00 2020-07-19 00:00:00 Telephone Man Giron [facility] 1.2840.114 350.1.13.10 4.2.7.2.686 [id number] 044 [id number] [facility] 2020-07-19 00:00:00 2020-07-19 00:00:00 Orders Only Doctor Unassigned, [place] [facility] 1.2840.114 350.1.13.10 4.2.7.2.686 [id number] [id number] [facility] 2020-07-09 00:00:00 2020-07-09 00:00:00 Patient Secure Msg Doctor Unassigned, [place] [facility] 1.2840.114 350.1.13.10 4.2.7.2.686 [id number] [facility] 2020-07-04 14:40:00 2020-07-04 14:40:00 Outpatient R DAYA LOVE [facility] [id number] [facility] 2020-07-04 07:53:28 2020-07-04 12:03:51 Office Visit BashirpkMan [facility] 1.20.114 350.1.13.10 4.2.7.2.686 [id number] 044 [id number] [facility] 2020-06-28 00:00:00 2020-06-28 00:00:00 Orders Only Doctor Unassigned, [place] [facility] 1.2840.114 350.1.13.10 4.2.7.2.686 [id number] [id number] [facility] 2020-06-22 00:00:00 2020-06-22 00:00:00 Telephone Bev Chauhan [facility] 1.2840.114 350.1.13.10 4.2.7.2.686 [id number] 2020-06-22 00:00:00 2020-06-22 00:00:00 Telephone Bev Chauhan [facility] Building 1.2.840.114 350.1.13.10 4.2.7.2.686 [id number] 231 [id number] [facility] 2020-06-19 00:00:00 2020-06-19 00:00:00 Telephone Bev Chauhan [facility] 1.2.840.114 350.1.13.10 4.2.7.2.686 [id number] 231 [id number] [facility] 2020-06-19 00:00:00 2020-06-19 00:00:00 Telephone Bev Chauhan [facility] 1.2.840.114 350.1.13.10 4.2.7.2.686 [id number] 231 [id number] 2020-06-11 14:20:00 2020-06-11 14:20:00 Outpatient R DAYA LOVE [facility] [id number] [facility] 2020-06-07 14:00:00 2020-06-07 14:00:00 Outpatient LUCIANO OROZCO [facility] [id number] [facility] 2020-06-07 00:00:00 2020-06-07 00:00:00 Orders Only Doctor Unassigned, [place] [facility] 1.2.840.114 350.1.13.10 4.2.7.2.686 [id number] [id number] [facility] 2020-06-05 11:20:00 2020-06-05 11:20:00 Outpatient MAN HANNA [facility] [id number] [facility] 2020-06-05 00:00:00 2020-06-05 00:00:00 Telephone Man Giron [facility] Building 1.2.840.114 350.1.13.10 4.2.7.2.686 [id number] 044 [id number] [facility] 2020-06-05 00:00:00 2020-06-05 00:00:00 Telephone Man Giron [facility] Building 1.2.840.114 350.1.13.10 4.2.7.2.686 [id number] 044 [id number] [facility] 2020-06-04 00:00:00 2020-06-04 00:00:00 Patient Outreach Nikki Blount Zeke [facility] 1.2.840.114 350.1.13.10 4.2.7.2.686 [id number] 231 [id number] [facility] 2020-06-04 00:00:00 2020-06-04 00:00:00 Patient Outreach Nikki Blount Zeke [facility] 1.2.840.114 350.1.13.10 4.2.7.2.686 [id number] 231 [id number] 2020-05-31 00:00:00 2020-05-31 00:00:00 Telephone Bev Chauahn [facility] 1.2.840.114 350.1.13.10 4.2.7.2.686 [id number] 044 [id number] [facility] 2020-05-30 15:05:50 2020-05-30 16:14:27 Office Visit Marta Alston [facility] 1.2.840.114 350.1.13.10 4.2.7.2.686 [id number] 044 [id number] [facility] 2020-05-30 15:30:00 2020-05-30 15:30:00 Outpatient R MARTA ALSTON [facility] [id number] [facility] 2020-05-30 00:00:00 2020-05-30 00:00:00 Telephone Bev Chauhan [facility] Building 1.2.840.114 350.1.13.10 4.2.7.2.686 [id number] 044 [id number] [facility] 2020-05-30 00:00:00 2020-05-30 00:00:00 Orders Only Doctor Unassigned, [place] [facility] 1.2.840.114 350.1.13.10 4.2.7.2.686 [id number] [id number] [facility] 2020-05-28 00:00:00 2020-05-28 00:00:00 Telephone Bev Chauhan Gat[place] [facility] Building 1.2.840.114 350.1.13.10 4.2.7.2.686 [id number] 044 [id number] [facility] 2020-05-26 00:00:00 2020-05-26 00:00:00 Patient Outreach Oits Cook [facility] 1.2.840.114 350.1.13.10 4.2.7.2.686 [id number] [facility] 2020-05-18 00:00:00 2020-05-18 00:00:00 Telephone Bev Chauhan [facility] Building 1.2.840.114 350.1.13.10 4.2.7.2.686 [id number] 231 [id number] [facility] 2020-05-17 00:00:00 2020-05-17 00:00:00 Telephone Bev Chauhan [facility] Building 1.2.840.114 350.1.13.10 4.2.7.2.686 [id number] 231 [id number] [facility] 2020-05-17 00:00:00 2020-05-17 00:00:00 Orders Only Doctor Unassigned, [place] [facility] 1.2840.114 350.1.13.10 4.2.7.2.686 [id number] 009 [id number] [facility] 2020-05-13 00:00:00 2020-05-13 00:00:00 Nurse Triage Rogelio Katiana [facility] 1.2840.114 350.1.13.10 4.2.7.2.686 [id number] 019 [id number] [facility] 2020-05-11 08:42:39 2020-05-11 16:05:01 Telemedici ne Visit Man Giron [facility] 1.84.114 350.1.13.10 4.2.7.2.686 [id number] 044 [id number] [facility] 2020-05-11 08:40:00 2020-05-11 08:40:00 Outpatient R MAN GIRON [facility] [id number] [facility] 2020-05-11 00:00:00 2020-05-11 00:00:00 Patient Outreach Nikki Blount [facility] 1.84.114 350.1.13.10 4.2.7.2.686 [id number] 044 [id number] [facility] 2020-05-11 00:00:00 2020-05-11 00:00:00 Orders Only Doctor Unassigned, [place] [facility] 1..114 350.1.13.10 4.2.7.2.686 [id number] 009 [id number] [facility] 2020-05-04 00:00:00 2020-05-04 00:00:00 Telephone Bev Chauhan [facility] 1.2.840.114 350.1.13.10 4.2.7.2.686 [id number] 044 [id number] [facility] 2020-05-02 00:00:00 2020-05-02 00:00:00 Patient Outreach Nikki Blount [facility] Building 1.2.840.114 350.1.13.10 4.2.7.2.686 [id number] 231 [id number] [facility] 2020-04-25 00:00:00 2020-04-25 00:00:00 Telephone Bev Chauhan [facility] 1.2.840.114 350.1.13.10 4.2.7.2.686 [id number] 231 [id number] [facility] 2020-04-10 00:00:00 2020-04-10 00:00:00 Orders Only Doctor Unassigned, [place] [facility] 1.2840.114 350.1.13.10 4.2.7.2.686 [id number] [id number] [facility] 2020-04-06 14:30:00 2020-04-06 14:30:00 Outpatient JOHNATHON SHEA [facility] [id number] [facility] 2020-04-05 00:00:00 2020-04-05 00:00:00 Telephone Bev Chauhan [facility] Building 1.2.840.114 350.1.13.10 4.2.7.2.686 [id number] 231 [id number] [facility] 2020-04-04 00:00:00 2020-04-04 00:00:00 Telephone Bev Chauhan [facility] Building 1.2.840.114 350.1.13.10 4.2.7.2.686 [id number] 231 [id number] [facility] 2020-04-04 00:00:00 2020-04-04 00:00:00 Patient Outreach Nikki Blount [facility] Building 1.2.840.114 350.1.13.10 4.2.7.2.686 [id number] 231 [id number] [facility] 2020-03-29 00:00:00 2020-03-29 00:00:00 Telephone Bev Chauhan [facility] 1.2.840.114 350.1.13.10 4.2.7.2.686 [id number] 231 [id number] [facility] 2020-03-29 00:00:00 2020-03-29 00:00:00 Telephone Bev Chauhan [facility] 1.2.840.114 350.1.13.10 4.2.7.2.686 [id number] 231 [id number] [facility] 2020-03-28 11:00:00 2020-03-28 23:59:00 Hospital Encounter Alberto Marcial [facility] 1..840.114 350.1.13.10 4.2.7.2.686 [id number] [facility] 2020-03-28 00:00:00 2020-03-28 00:00:00 Outpatient ALBERTO ANDREW [facility] [id number] [facility] 2020-03-27 13:41:44 2020-03-27 15:37:27 Office Visit Rudy King [facility] 1..840.114 350.1.13.10 4.2.7.2.686 [id number] [facility] 2020-03-27 13:00:00 2020-03-27 13:00:00 Outpatient RUDY HARRIS [facility] [id number] [facility] 2020-03-27 00:00:00 2020-03-27 00:00:00 Telephone [facility]ev [facility] 1.2.840.114 350.1.13.10 4.2.7.2.686 [id number] [facility] 2020-03-27 00:00:00 2020-03-27 00:00:00 Telephone Bev Chauhan [facility] Building 1.2.840.114 350.1.13.10 4.2.7.2.686 [id number] [facility] 2020-03-27 00:00:00 2020-03-27 00:00:00 Patient Secure Msg Doctor Unassigned, [place] [facility] 1.2.840.114 350.1.13.10 4.2.7.2.686 [id number] [facility] 2020-03-23 00:00:00 2020-03-23 00:00:00 Telephone Bev Chauhan [facility] Building 1.2.840.114 350.1.13.10 4.2.7.2.686 [id number] 231 [id number] [facility] 2020-03-21 00:00:00 2020-03-21 00:00:00 Telephone Ryann Chauhanzamonica Mederos [facility] Building 1.2.840.114 350.1.13.10 4.2.7.2.686 [id number] 044 [id number] [facility] 2020-03-13 00:00:00 2020-03-13 00:00:00 Telephone Bev Chauhan [facility] Building 1.2.840.114 350.1.13.10 4.2.7.2.686 [id number] 231 [id number] [facility] 2020-03-13 00:00:00 2020-03-13 00:00:00 Telephone ChauhanRyannBev Gatito [facility] Building 1.840.114 350.1.13.10 4.2.7.2.686 [id number] 044 [id number] [facility] 2020-03-07 00:00:00 2020-03-07 00:00:00 Telephone ChauhanRyannBev Gatito [facility] 1.84.114 350.1.13.10 4.2.7.2.686 [id number] 231 [id number] [facility] 2020 11:00:00 2020 11:00:00 Outpatient R JORJE EDDY [facility] [id number] [facility] 2020-03-05 09:37:34 2020-03-05 09:52:34 Office Visit Hossein Vilchis [facility] 1.84.114 350.1.13.10 4.2.7.2.686 [id number] [facility] 2020-03-05 09:00:00 2020-03-05 09:00:00 Outpatient R HOSSEIN VILCHIS [facility] [id number] [facility] 2020-03-05 00:00:00 2020-03-05 00:00:00 Telephone Bev Chauhan [place] [facility] 1.840.114 350.1.13.10 4.2.7.2.686 [id number] 231 [id number] [facility] 2020-03-05 00:00:00 2020-03-05 00:00:00 Telephone Rudy King [facility] 1.84.114 350.1.13.10 4.2.7.2.686 [id number] [id number] [facility] 2020-03-02 15:30:00 2020-03-02 15:30:00 Outpatient HOSSEIN FONTANA [facility] [id number] [facility] 2020-03-01 00:00:00 2020-03-01 00:00:00 Orders Only Doctor Unassigned, [place] [facility] 1.2840.114 350.1.13.10 4.2.7.2.686 [id number] [id number] [facility] 2020-02-28 00:00:00 2020-02-28 00:00:00 Orders Only Doctor Unassigned, [place] [facility] 1.2840.114 350.1.13.10 4.2.7.2.686 [id number] [id number] [facility] 2020-02-24 13:45:00 2020-02-24 13:45:00 Outpatient HOSSEIN FONTANA [facility] [id number] [facility] 2020-02-24 00:00:00 2020-02-24 00:00:00 Orders Only Doctor Unassigned, [place] [facility] 1.2840.114 350.1.13.10 4.2.7.2.686 [id number] 009 [id number] [facility] 2020-02-23 00:00:00 2020-02-23 00:00:00 Telephone Bev Chauhan [facility] 1.2.114 350.1.13.10 4.2.7.2.686 [id number] 231 [id number] [facility] 2020-02-23 00:00:00 2020-02-23 00:00:00 Orders Only Doctor Unassigned, [place] [facility] 1.2840.114 350.1.13.10 4.2.7.2.686 [id number] [id number] [facility] 2020-02-21 00:00:00 2020-02-21 00:00:00 Orders Only Doctor Unassigned, [place] [facility] 1.2.840.114 350.1.13.10 4.2.7.2.686 [id number] [id number] [facility] 2020-02-17 13:30:00 2020-02-17 13:30:00 Outpatient R HOSSEIN VILCHIS [facility] [id number] [facility] 2020-02-17 00:00:00 2020-02-17 00:00:00 Telephone Bev Chauhan [facility] 1.84.114 350.1.13.10 4.2.7.2.686 [id number] 044 [id number] [facility] 2020-02-17 00:00:00 2020-02-17 00:00:00 Patient Secure Msg Doctor Unassigned, [place] [facility] 1.84114 350.1.13.10 4.2.7.2.686 [id number] [id number] [facility] 2020-02-16 00:00:00 2020-02-16 00:00:00 Orders Only Doctor Unassigned, [place] [facility] 1.20.114 350.1.13.10 4.2.7.2.686 [id number] 009 [id number] [facility] 2020-02-14 00:00:00 2020-02-14 00:00:00 Patient Outreach Nikki Blount [facility] Building 1.84.114 350.1.13.10 4.2.7.2.686 [id number] 231 [id number] [facility] 2020-02-14 00:00:00 2020-02-14 00:00:00 Orders Only Doctor Unassigned, [place] [facility] 1.20.114 350.1.13.10 4.2.7.2.686 [id number] [facility] 2020-02-13 00:00:00 2020-02-13 00:00:00 Telephone Bev Chauhan [facility] Building 1.2.840.114 350.1.13.10 4.2.7.2.686 [id number] [facility] 2020-02-11 00:00:00 2020-02-11 00:00:00 Telephone Bev Chauhan [facility] Building 1.2.840.114 350.1.13.10 4.2.7.2.686 [id number] 231 [id number] [facility] 2020-02-10 00:00:00 2020-02-10 00:00:00 Nurse Triage Keisha Lockett [facility] 1.2.840.114 350.1.13.10 4.2.7.2.686 [id number] [id number] [facility] 2020-02-08 00:00:00 2020-02-08 00:00:00 Telephone Bev Chauhan [facility] 1.2.840.114 350.1.13.10 4.2.7.2.686 [id number] 231 [id number] [facility] 2020-02-07 00:00:00 2020-02-07 00:00:00 Patient Outreach Nikki Blount [facility] 1.2.840.114 350.1.13.10 4.2.7.2.686 [id number] 231 [id number] [facility] 2020-02-06 11:08:32 2020-02-06 12:47:15 Office Visit Bev Chauhan [facility] 1.2.840.114 350.1.13.10 4.2.7.2.686 [id number] 231 [id number] [facility] 2020-02-06 11:20:00 2020-02-06 11:20:00 Outpatient R BEV CHAUHAN [facility] [id number] [facility] 2020-02-06 00:00:00 2020-02-06 00:00:00 Patient Outreach Funmilayo Dubose 1.2114 350.1.13.10 4.2.7.2.686 [id number] [facility] 2020-02-02 00:00:00 2020-02-02 00:00:00 Orders Only Doctor Unassigned, [place] [facility] 1.2.114 350.1.13.10 4.2.7.2.686 [id number] [id number] [facility] 2020-02-01 00:00:00 2020-02-01 00:00:00 Telephone Rudy King [facility] 1.114 350.1.13.10 4.2.7.2.686 [id number] 092 [id number] [facility] 2020-01-31 09:59:32 2020-01-31 11:21:18 Office Visit Dorene Hart [facility] Building 1.114 350.1.13.10 4.2.7.2.686 [id number] [facility] 2020-01-31 10:15:00 2020-01-31 10:15:00 Outpatient R DORENE HART [facility] [id number] [facility] 2020-01-23 00:00:00 2020-01-23 00:00:00 Patient Outreach Jose Alejandro Nikki Zeke [facility] Building 1.114 350.1.13.10 4.2.7.2.686 [id number] [facility] 2020-01-19 00:00:00 2020-01-19 00:00:00 Orders Only Doctor Unassigned, [place] [facility] 1.2114 350.1.13.10 4.2.7.2.686 [id number] 009 [id number] [facility] 2020-01-18 00:00:00 2020-01-18 00:00:00 Telephone Rudy King [facility] 1.2.840.114 350.1.13.10 4.2.7.2.686 [id number] 012 [id number] [facility] 2020-01-16 00:00:00 2020-01-16 00:00:00 Patient Outreach Funmilayo Dubose 1.2.840.114 350.1.13.10 4.2.7.2.686 [id number] [facility] 2020-01-13 00:00:00 2020-01-13 00:00:00 Patient Outreach Funmilayo Dubose 1.2.840.114 350.1.13.10 4.2.7.2.686 [id number] [facility] 2020-01-13 00:00:00 2020-01-13 00:00:00 Telephone Bev Chauhan [facility] 1.2.840.114 350.1.13.10 4.2.7.2.686 [id number] 231 [id number] [facility] 2020-01-12 00:00:00 2020-01-12 00:00:00 Patient Outreach Funmilayo Dubose 1.2.840.114 350.1.13.10 4.2.7.2.686 [id number] [facility] 2020-01-12 00:00:00 2020-01-12 00:00:00 Patient Outreach Nikki Blount [facility] 1.2.840.114 350.1.13.10 4.2.7.2.686 [id number] 231 [id number] [facility] 2020-01-12 00:00:00 2020-01-12 00:00:00 Transition of Care KarolynMelinda 1.2.114 350.1.13.10 4.2.7.2.686 [id number] 403 [id number] [facility] 2019-12-24 12:17:00 2020-01-11 18:29:00 Hospital Encounter [facility] 1.2.114 350.1.13.10 4.2.7.2.686 [id number] [id number] [facility] 2020-01-10 00:00:00 2020-01-10 00:00:00 Telephone Bev Chauhan [facility] nal Building 1..114 350.1.13.10 4.2.7.2.686 [id number] 231 [id number] [facility] 2020-01-06 11:15:00 2020-01-06 11:15:00 Outpatient R YOSHI, DORENE [facility] [id number] [facility] 2019-12-27 14:00:00 2019-12-27 14:00:00 Outpatient R [facility] [id number] [facility] 2019-12-27 13:00:00 2019-12-27 13:00:00 Outpatient R JUSTINE PORTER [facility] [id number] [facility] 2019-12-13 13:10:32 2019-12-20 08:23:59 [facility] 1..114 350.1.13.10 4.2.7.2.686 [id number] [facility] 2019-12-19 16:12:39 2019-12-19 16:12:49 Appointprabhakar Amador, Adc Vascular Room 1 - [facility] 1.84.114 350.1.13.10 4.2.7.2.686 [id number] [facility] 2019-12-19 15:00:00 2019-12-19 15:00:00 Outpatient R SOPHIA PRESTON [facility] [id number] [facility] 2019-12-19 13:21:22 2019-12-19 14:21:22 Emergency Room Orderly Visit Pc, Adc Vascular Room 1 - [place] [facility] 1.2.840.114 350.1.13.10 4.2.7.2.686 [id number] [facility] 2019-12-16 14:31:09 2019-12-16 15:36:14 Office Visit Bev Chauhan [facility] Building 1..840.114 350.1.13.10 4.2.7.2.686 [id number] [facility] 2019-12-16 14:40:00 2019-12-16 14:40:00 Outpatient R BEV CHAUHAN [facility] [id number] [facility] 2019-12-13 13:20:00 2019-12-13 13:20:00 Outpatient R DAYA LOVE [facility] [id number] [facility] 2019-12-13 00:00:00 2019-12-13 00:00:00 Orders Only Doctor Unassigned, [place] [facility] 1..840.114 350.1.13.10 4.2.7.2.686 [id number] [facility] 2019-10-06 08:15:00 2019-10-06 08:15:00 Outpatient R DORENE HART [facility] [id number] [facility] 2019-08-02 13:40:00 2019-08-02 13:40:00 Outpatient R BEV CHAUHAN [facility] [id number] [facility] 2019-07-26 14:00:00 2019-07-26 14:00:00 Outpatient R DAYA LOVE [facility] [id number] [facility] 2019-07-26 08:22:33 2019-07-26 08:42:33 Telemedici ne Visit Daya Love [facility] Building 1.2.840.114 350.1.13.10 4.2.7.2.686 [id number] [facility] 2019-06-03 08:40:00 2019-06-03 08:40:00 Outpatient R CHAUHAN, BEV [facility] [id number] [facility] 2018-11-14 15:51:03 2018-11-14 17:57:00 Emergency Munir [facility] 1.2.840.114 350.1.13.10 4.2.7.2.686 [id number] [facility] 2018-10-01 14:32:59 2018-10-18 13:22:59 Office Visit Chauhan Bev [facility] 1.2.840.114 350.1.13.10 4.2.7.2.686 [id number] [facility] 2018-07-01 12:13:07 2018-10-12 10:13:29 Office Visit Bev Chauhan Gatito [facility] 1.2.840.114 350.1.13.10 4.2.7.2.686 [id number] [facility] 2018-10-07 00:00:00 2018-10-07 00:00:00 Telephone GisselRyannBev A [facility] 1.2.840.114 350.1.13.10 4.2.7.2.686 [id number] [facility] Results Test Description Test Time Test Comments Results Result Co mments Source CBC W/AUTO [id number] 07:04:00* Test Item Value Reference Range Interpretation [...] NRBC#) 0.00 K/mm3 0.0-0.1 N GLUCOSE BEDSIDE [id number] 21:36:00* Test Item Value Reference Range Interpretation Comme nts GLUCOSE BEDSIDE TESTING (lokesh t code = GLUBED) 118 MG/DL 60-99 H UA RFLX MICR CULT IF [id number] 15:32:00* Test Item Value Reference Range Interpretation [...] RiskForSepsis-no oth srcSOURCE OF URINE: Straight CathUA [id number] 15:32:00* Test Item Value Reference Range Interpretation Comme nts UA RBC (test code = RBCU) 0-3 RBC/HPF 0-3 A Previously repor breanna result: 10-20 RBC/HPFEdited by: [id number] on 11/30/22:178745 3 1531: RBC previously reported as: 10-20 H RBC/HPF UA WBC (test code = XWBCU) 10-20 WBC/HPF 0-5 A Previously repor breanna result: 0-3 WBC/HPFEdited by: [id number] on 11/30/22:097825/02/05 3 1531: WBC previously reported as: 0-3 WBC/HPF UA EPITHELIAL CELLS (test code = EPIU) FEW EPI/HPF FEW UA BACTERIA (test code = XBACU) FEW NONE Indication for culture: RiskForSepsis-no oth srcSOURCE OF URINE: Straight Cath COMPREHENSIVE METABOLIC [id number] 12:15:00* Test Item Value Reference Range Interpretation [...] 7.6 G/DL 6.3-8.2 N Ortho Clinical D iagnStandard [employer] has made us aware of newinformation regarding [...] 50.0-120.0Possible Toxic: > 100.0Serious Toxic: >200.0 LACTIC [id number] 12:08:00* Test Item Value Reference Range Interpretation Comme nts LACTIC ACID (test code = LACT) 1.5 MMOL/L 0.7-2.1 N - CT ABD PELVIS W/[id number] 02:53:00 [facility] 1960 Sex: F Patient Name: FUNMILAYO ALLAN Unit No: [id number] EXAMS: CPT CODE: [id number] CT ABD PELVIS W/CONT 44860 EXAM: - CT ABD PELVIS W/CONT HISTORY: Abdominal pain. TECHNIQUE: Axial tomograms through the abdomen and pelvis were obtained after intravenous contrast. Coronal and sagittal reformatted images are provided. This exam was performed according to our departmental dose-optimization program, which includes automated exposure control, adjustment of the mA and/or kV according to patient size and/or use ofiterative reconstruction technique. COMPARISON: None available time of interpretation. FINDINGS: The visualized lung bases are clear. Calcific plaques/ stent in left coronary arteries. There is a small hiatal hernia. The liver, spleen, pancreas, adrenal glands and kidneys demonstrate no significantabnormalities. There is a 3.2 cm simple appearing [...] Dinh, RT(R)(CT); H CTDI: DLP: Trnscrpt: 11/30/2022 (0253) t.SDR.MKM4 [facility] NAME: FUNMILAYO ALLAN PHYS: [place] [address] : 1960 AGE: 62 SEX: F LOC: [employer] PHONE #: [phone] EXAM DATE: 11/30/2022 STATUS: REG ER FAX #: [phone] RAD #: D/C DT PAGE 1 Signed Report Patient Name: FUNMILAYO ALLAN Unit No: [id number] EXAMS:CPT CODE: [id number] CT ABD PELVIS W/CONT 94601 (Continued) Orig Print D/T: S: 11/30/2022 (025) [facility] NAME: FUNMILAYO ALLAN PHYS: [place] [address] : 1960 AGE: 62 SEX: F LOC: [employer] PHONE #: [phone] EXAM DATE: 11/30/2022 STATUS: REG ER FAX #: [phone] RAD #: D/C DT PAGE 2 Signed Report COMPREHENSIVE METABOLIC [id number] 00:28:00* Test Item Value Reference Range Interpretation [...] and aplastic anemia) with specific assayson the [employer] 5600 of which Total Protein is one [...] code = ALKP) 95 UNITS/L 38-126 N [id number] 00:28:00* Test Item Value Reference Range Interpretation Comme nts TROPONIN-I (test code = TROPI) < 0.012 NG/ML 0.012-0.033 L LACTIC [id number] 00:10:00* Test Item Value Reference Range Interpretation Comme nts LACTIC ACID (test code = LACT) 2.2 MMOL/L 0.7-2.1 H CBC W/AUTO [id number] 23:54:00* Test Item Value Reference Range Interpretation [...] K/mm3 0.0-0.1 N - CT HEAD/BRAIN W/O [id number] 22:35:00 [facility] 1960 Sex: F Patient Name: FUNMILAYO ALLAN Unit No: [id number] EXAMS: CPT CODE: [id number] CT HEAD/BRAIN W/O CONT 80490 Examination: Head CT without contrast Location code: [...] consistent with a prior infarct. Chronic periventricular small vessel ischemic changes identified. The calvarium and the paranasal sinuses are within normallimits. Impression: 1. No acute intracranial abnormality. at 2235 Reported and signed by: Kd Dawkins MD CC: Olga Braga MD Technologist: Markos Dinh, RT(R)(CT) CTDI: DLP: Trnscrpt: 11/29/2022 (2234) t.SDR.VR5 [facility] NAME: FUNMILAYO ALLAN PHYS: [place] [address] : 1960 AGE: 62 SEX: F LOC: [employer] PHONE #: [phone] EXAM DATE: 11/29/2022 STATUS: PREER FAX #: [phone] RAD #: D/C DT PAGE 1 Signed Report Patient Name: FUNMILAYO ALLAN Unit No: [id number] EXAMS: CPT CODE: [id number] CT HEAD/BRAIN W/O CONT 88910 (Continued) Orig Print D/T: S: 11/29/2022 (2237) [facility] NAME: FUNMILAYO ALLAN PHYS: [place] [address] : 1960 AGE: 62 SEX: F LOC: [employer] PHONE #: [phone] DATE: 11/29/2022 STATUS: PRE ER FAX #: [phone] RAD #: D/C DT PAGE 2 Signed Report- XR CHEST [id number] 22:34:00 [facility] : 1960 Sex: F Patient Name: FUNMILAYO ALLAN Unit No: [id number] EXAMS: CPT CODE: [id number] XR CHEST 1V 36289 EXAM: - XR CHEST 1V HISTORY: Sepsis. COMPARISON: None available time of interpretation. FINDINGS: Single AP view of the chest is provided. Heart size and vascularity are within normal limits. There is no evidence of a focal consolidation. There is no pleural effusion or pneumothorax. There is no definite acuteosseous abnormality. IMPRESSION: No radiographic evidence of acute cardiopulmonary process. at 2234 Reported and signed by: Rupert Lopez MD CC: Olga Braga MD Technologist: Raymond Araya RT; Italia Yang (RTR) Transcrpt Date/Tm/Trnsp: 11/29/2022 (223) t.MADELAINER.MKM4 Orig Print D/T: S: 11/29/2022 (2237) [facility] NAME: FUNMILAYO ALLAN [address] PHYS: [place] [address] : 1960 AGE: 62 SEX:F LOC: [employer] PHONE #: [phone] EXAM DATE: 11/29/2022 STATUS: PRE ER FAX #: [phone] RADIOLOGY NO: PAGE 1 Signed ReportIR Gastro [...] of exchange. PROCEDURE: Fluoroscopically-guided gastrostomy tube exchange. BOOKING SUPERVISOR: Dr. Luciano Bhatia. MEDICATIONS: None. CONTRAST: 10 [...] immediate.ESTIMATED BLOOD LOSS: None.CONDITION: Stable. FINDINGS:New 16 Cameroonian gastrostomy tube placed within the stomach. 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 Luciano Bhatia.MEDICATIONS: None.CONTRAST: 10 mL Omnipaque- [...] None immediate.ESTIMATED BLOOD LOSS: None.CONDITION: Stable.FINDINGS:New 16 Cameroonian gastrostomy tube placed within the stomach.IMPRESSIONSuccessful fluoroscopically-guided [...] present in the room during the entire procedure.[facility] WITH DIFF 2020-01-11 08:37:00* Test Item Value Reference Range Interpretation Comme nts WBC (test code = 6690-2) See_Comment [Automated [employer]] The system which generated this result transmitted reference range: 4.30 - 11.10 10*3/?L. The reference range was not used to interpret this result as normal/abnormal. RBC (test code = 789-8) See_Comment L [Automated messa [employer]School] The system which generated this result transmitted [...] 32.5 g/dL 31.6-35.1 RDW-SD (test code = 30084-3) 41.8 fL 39-49.9 RDW-CV (test code = 788-0) 12.0 % 12-15.5 PLT (test code = 777-3) See_Comment [Automated messa ge] The system which generated this result transmitted reference range: 166 - 358 10*3/?L. The reference range was not used to interpret this result as normal/abnormal. MPV (test code = 65227-5) 10.9 fL 9.5-12.9 NRBC/100 WBC (test code = 8832035952) See_Comment [Automated [employer] ssage] The system which generated this result transmitted reference range: 0.0 - 10.0 /100 WBCs. The reference range was not used to interpret this result as normal/abnormal. NRBC x10^3 (test code = 8922426857) <0.01 See_Comment [Automated [employer] ge] The system which generated this result transmitted reference range: 10*3/?L. The reference range was not used to interpret this result as normal/abnormal. GRAN MAT (NEUT) % (test code = 770-8) 79.1 % IMM GRAN % (test code = 1812656753) 0.20 % LYMPH % (test code = 736-9) 10.7 % MONO % (test code = 5905-5) 7.5 % EOS % (test code = 713-8) 2.3 % BASO % (test code = 706-2) 0.2 % GRAN MAT x10^3(ANC) (test code = 7820377109) 8.62 10*3/uL 1.88-7.09 H IMM GRAN x10^3 (test code = 6466390457) <0.03 0-0.06 LYMPH x10^3 (test code = 731-0) 1.17 10*3/uL 1.32-3.29 L MONO x10^3 (test code = 742-7) 0.82 10*3/uL 0.33-0.92 EOS x10^3 (test code = 711-2) 0.25 10*3/uL 0.03-0.39 BASO x10^3 (test code = 704-7) <0.03 0.01-0.07 Lab Interpretation (test code = 08122-3) Abnormal [facility] WITH [id number] 08:36:00* Test Item Value Reference Range Interpretation [...] 32.8 g/dL 31.6-35.1 RDW-SD (test code = 99504-1) 42.1 fL 39-49.9 RDW-CV (test code = 788-0) 12.0 % 12-15.5 PLT (test code = 777-3) See_Comment [Automated messa ge] The system which generated this result transmitted reference range: 166 - 358 10*3/?L. The reference range was not used to interpret this result as normal/abnormal. MPV (test code = 91475-0) 10.7 fL 9.5-12.9 NRBC/100 WBC (test code = 7555579208) See_Comment [Automated me ssage] The system which generated this result transmitted reference range: 0.0 - 10.0 /100 WBCs. The reference range was not used to interpret this result as normal/abnormal. NRBC x10^3 (test code = 9510361725) <0.01 See_Comment [Automated messa ge] The system which generated this result transmitted reference range: 10*3/?L. The reference range was not used to interpret this result as normal/abnormal. GRAN MAT (NEUT) % (test code = 770-8) 81.8 % IMM GRAN % (test code = 7440661831) 0.40 % LYMPH % (test code = 736-9) 9.2 % MONO % (test code = 5905-5) 7.0 % EOS % (test code = 713-8) 1.4 % BASO % (test code = 706-2) 0.2 % GRAN MAT x10^3(ANC) (test code = 7856589766) 9.18 10*3/uL 1.88-7.09 H IMM GRAN x10^3 (test code = 1591279149) 0.04 10*3/uL 0-0.06 LYMPH x10^3 (test code = 731-0) 1.03 10*3/uL 1.32-3.29 L MONO x10^3 (test code = 742-7) 0.78 10*3/uL 0.33-0.92 EOS x10^3 (test code = 711-2) 0.16 10*3/uL 0.03-0.39 BASO x10^3 (test code = 704-7) <0.03 0.01-0.07 Lab Interpretation (test code = 91640-8) [facility]normal [facility] ([facility]99[facility] (ALB,T.PRO,BILI T,BU/BC,ALT,AST,ALK PHOS)2020-01-09 22:18:00* Test Item Value Reference Range Interpretation Comme nts TOTAL BILI (test code = 1469561650) 0.2 mg/dL 0.1-1.1 BILI UNCON (test code = 5513805181) 0.2 mg/dL 0.1-1.1 BILI CONJ (test code = 0680325300) 0.0 mg/dL 0-0.3 T PROTEIN (test code = 4213923491) 6.3 g/dL 6.3-8.2 ALBUMIN (test code = 0215862993) 2.9 g/dL 3.5-5 L ALK PHOS (test code = 8978454916) 55 U/L 34-122 ALTv (test code = 1742-6) 23 U/L 5-35 AST(SGOT) (test code = 5602237862) 30 U/L 13-40 Lab Interpretation (test cod e = 66493-4) Abnormal [facility]IS2020-10-26 14:23:00* Test Item Value Reference Range Interpretation Comme nts APPEARANCE (test code = 0144926075) Cloudy Clear A COLOR (test code = 9755349621) Yellow Yellow PH (test code = 2088974229) 4.8-8.0 SP GRAVITY (test code = 3479339083) 1.003-1.030 GLU U QUAL (test code = 5335893232) Normal Normal BLOOD (test code = 8262770339) Negative Negative INTERFERENCE FRO M ASCORBIC ACID MAY CAUSE FALSE NEGATIVE RESULT KETONES (test code = 5549622479) Negative Negative PROTEIN (test code = 2887-8) Negative Negative UROBILIN (test code = 4895901944) Normal Normal BILIRUBIN (test code = 5658872260) Negative Negative NITRITE (test code = 1454959443) Positive Negative A LEUK LOGAN (test code = 7079040791) 500/uL Negative A RBC/HPF (test code = 2478431544) See_Comment H [Automated [employer]] The system which generated this result transmitted reference range: 0 - 3 HPF. The reference range was not used to interpret this result as normal/abnormal. WBC/HPF (test code = 5295335092) See_Comment H [Automated [employer]] The system which generated this result transmitted reference range: 0 - 5 HPF. The reference range was not used to interpret this result as normal/abnormal. BACTERIA (test code = 3035138997) Many Negative A MUCOUS (test code = 8474600189) Slight Negative LPF A AMORPHOUS (test code = 5329028112) Few Rare HPF A SQ EPITH (test code = 8232674090) See_Comment [Automated [employer] ge] The system which generated this result transmitted reference range: <=2 HPF. The reference range was not used to interpret this result as normal/abnormal. Lab Interpretation (test code = 38867-3) Abnormal [facility] CenterCBC WITH [id number] 09:39:00* Test Item Value Reference Range Interpretation [...] 33.0 g/dL 31.6-35.1 RDW-SD (test code = 42066-8) 41.8 fL 39-49.9 RDW-CV (test code = 788-0) 11.9 % 12-15.5 L PLT (test code = 777-3) See_Comment [Automated message] The system which generated this result transmitted reference range: 166 - 358 10*3/?L. The reference range was not used to interpret this result as normal/abnormal. MPV (test code = 06119-1) 11.0 fL 9.5-12.9 NRBC/100 WBC (test code = 6700663670) See_Comment [Automated message] The system which generated this result transmitted reference range: 0.0 - 10.0 /100 WBCs. The reference range was not used to interpret this result as normal/abnormal. NRBC x10^3 (test code = 4390449378) <0.01 See_Comment [Automated message] The system which generated this result transmitted reference range: 10*3/?L. The reference range was not used to interpret this result as normal/abnormal. GRAN MAT (NEUT) % (test code = 770-8) 88.6 % IMM GRAN % (test code = 3919881073) 0.50 % LYMPH % (test code = 736-9) 5.5 % MONO % (test code = 5905-5) 4.4 % EOS % (test code = 713-8) 0.8 % BASO % (test code = 706-2) 0.2 % GRAN MAT x10^3(ANC) (test code = 4288894525) 15.04 10*3/uL 1.88-7.09 H IMM GRAN x10^3 (test code = 9236793139) 0.09 10*3/uL 0-0.06 H LYMPH x10^3 (test code = 731-0) 0.94 10*3/uL 1.32-3.29 L MONO x10^3 (test code = 742-7) 0.75 10*3/uL 0.33-0.92 EOS x10^3 (test code = 711-2) 0.13 10*3/uL 0.03-0.39 BASO x10^3 (test code = 704-7) 0.04 10*3/uL 0.01-0.07 Lab Interpretation (test code = 53641-9) Abnormal [facility] CenterXR CHEST 1 [id number] 07:54:36Impression: Unchanged opacity in the left midlung zone which may representpneumonia.Exam: XR CHEST 1 01/07/2020 9:50 AM Clinical History: cough Comparison: Radiograph of 12/30/2019 Technique: frontal view of the chest Findings: Mild pulmonary congestion. Previously noted opacity in the left lower lungzone is unchanged. No new consolidation. No pleural effusion. ?No pneumothorax. The cardiomediastinal silhouetteappears unchanged. No acute osseous abnormality. [facility], Radiant Results Inft User -01/08/2020 2:55 [...] in the left midlung zone which may representpneumonia.[facility] WITH [id number] 06:17:00* Test Item Value Reference Range Interpretation [...] 33.3 g/dL 31.6-35.1 RDW-SD (test code = 92050-0) 42.5 fL 39-49.9 RDW-CV (test code = 788-0) 12.1 % 12-15.5 PLT (test code = 777-3) See_Comment [Automated message] The system which generated this result transmitted reference range: 166 - 358 10*3/?L. The reference range was not used to interpret this result as normal/abnormal. MPV (test code = 00117-1) 10.8 fL 9.5-12.9 NRBC/100 WBC (test code = 9248088313) See_Comment [Automated message] The system which generated this result transmitted reference range: 0.0 - 10.0 /100 WBCs. The reference range was not used to interpret this result as normal/abnormal. NRBC x10^3 (test code = 4993121737) <0.01 See_Comment [Automated message] The system which generated this result transmitted reference range: 10*3/?L. The reference range was not used to interpret this result as normal/abnormal. GRAN MAT (NEUT) % (test code = 770-8) 82.9 % IMM GRAN % (test code = 1650819139) 0.40 % LYMPH % (test code = 736-9) 7.7 % MONO % (test code = 5905-5) 7.4 % EOS % (test code = 713-8) 1.3 % BASO % (test code = 706-2) 0.3 % GRAN MAT x10^3(ANC) (test code = 8259566925) 12.33 10*3/uL 1.88-7.09 H IMM GRAN x10^3 (test code = 2681236743) 0.06 10*3/uL 0-0.06 LYMPH x10^3 (test code = 731-0) 1.15 10*3/uL 1.32-3.29 L MONO x10^3 (test code = 742-7) 1.10 10*3/uL 0.33-0.92 H EOS x10^3 (test code = 711-2) 0.20 10*3/uL 0.03-0.39 BASO x10^3 (test code = 704-7) 0.04 10*3/uL 0.01-0.07 Lab Interpretation (test code = 40494-8) Abnormal [facility] METABOLIC PANEL (NA, K, CL, CO2, GLUCOSE, BUN, CREATININE, CA)2020-01-07 10:01:00* Test Item Value Reference Range Interpretation Comme nts NA (test code = 8360183413) 140 mmol/L 135-145 K (test code = 2268262754) 4.5 mmol/L 3.5-5 CL (test code = 3620244731) 107 mmol/L 98-108 CO2 TOTAL (test code = 2172985251) 28 mmol/L 23-31 AGAP (test code = 3616375146) 2-16 BUN (test code = 3288151047) 34 mg/dL 7-23 H GLUCOSE (test code = 9774055069) 113 mg/dL 70-110 H CREATININE (test code = 2009109150) 0.70 mg/dL 0.5-1.04 CALCIUM (test code = 3456799938) 9.7 mg/dL 8.6-10.6 eGFR Calculation (Non-) (test code = 1610905007) mL/min/1.73m2 eGFR Calculation () (test code = 8279032538) mL/min/1.73m2 TONE (test code = TONE) Association [...] imaging tests). Lab Interpretation (test code = 35051-9) Abnormal [facility] WITHOUT [id number] 09:48:00* Test Item Value Reference Range Interpretation [...] result as normal/abnormal. MPV (test code = 80079-0) 10.5 fL 9.5-12.9 RDW-CV (test code = 788-0) 12.2 % 12-15.5 RDW-SD (test code = 98404-0) 42.5 fL 39-49.9 NRBC x10^3 (test code = 5979346273) <0.01 See_Comment [Automated [employer]] The system which generated this result transmitted reference range: 10*3/?L. The reference range was not used to interpret this result as normal/abnormal. NRBC/100 WBC (test code = 9037521966) See_Comment [Automated [employer]] The system which generated this result transmitted reference range: 0.0 - 10.0 /100 WBCs. The reference range was not used to interpret this result as normal/abnormal. IPF % (test code = 7045808606) Lab Interpretation (test code = 09152-5) Abnormal [facility] CenterURINALYSIS2020-10-23 00:40:00* Test Item Value Reference Range Interpretation Comme nts APPEARANCE (test code = 6285450235) Cloudy Clear A COLOR (test code = 1261964431) Yellow Yellow PH (test code = 1108923311) 4.8-8.0 SP GRAVITY (test code = 1543577809) 1.003-1.030 GLU U QUAL (test code = 5259506656) Normal Normal BLOOD (test code = 5199150340) Negative Negative Interference fro m ascorbic acid may cause false negative results. KETONES (test code = 7245806804) Negative Negative PROTEIN (test code = 2887-8) Negative Negative UROBILIN (test code = 3734751028) Normal Normal BILIRUBIN (test code = 7012185195) Negative Negative NITRITE (test code = 9573708735) Negative Negative LEUK LOGAN (test code = 0633560695) Negative Negative RBC/HPF (test code = 7885011601) See_Comment H [Automated messa ge] The system which generated this result transmitted reference range: 0 - 3 HPF. The reference range was not used to interpret this result as normal/abnormal. WBC/HPF (test code = 6021441088) See_Comment [Automated messa ge] The system which generated this result transmitted reference range: 0 - 5 HPF. The reference range was not used to interpret this result as normal/abnormal. BACTERIA (test code = 6616095220) Negative Negative SQ EPITH (test code = 8258904886) <1 See_Comment [Automated messa ge] The system which generated this result transmitted reference range: <=2 HPF. The reference range was not used to interpret this result as normal/abnormal. ASCORBIC ACID (test code = 9754622394) 40 mg/dL Lab Interpretation (test code = 59633-8) Abnormal [facility] METABOLIC PANEL (NA, K, CL, CO2, GLUCOSE, BUN, CREATININE, CA)2020-01-05 14:19:00* Test Item Value Reference Range Interpretation Comme nts NA (test code = 9193857413) 145 mmol/L 135-145 K (test code = 3316338180) 4.7 mmol/L 3.5-5 Slight hemolysis CL (test code = 1478424495) 110 mmol/L 98-108 H CO2 TOTAL (test code = 6301317060) 28 mmol/L 23-31 AGAP (test code = 2036554558) 2-16 BUN (test code = 0684623828) 32 mg/dL 7-23 H Slight hemolysis GLUCOSE (test code = 8341127770) 103 mg/dL 70-110 CREATININE (test code = 7404151974) 0.77 mg/dL 0.5-1.04 CALCIUM (test code = 7036235789) 9.9 mg/dL 8.6-10.6 eGFR Calculation (Non-) (test code = 8427438328) mL/min/1.73m2 eGFR Calculation () (test code = 4018679778) mL/min/1.73m2 TONE (test code = TONE) Association [...] imaging tests). Lab Interpretation (test code = 34644-4) Abnormal [facility] WITHOUT [id number] 14:11:00* Test Item Value Reference Range Interpretation [...] result as normal/abnormal. MPV (test code = 70943-2) 10.5 fL 9.5-12.9 RDW-CV (test code = 788-0) 12.3 % 12-15.5 RDW-SD (test code = 50427-8) 42.5 fL 39-49.9 NRBC x10^3 (test code = 1379341916) <0.01 See_Comment [Automated messa ge] The system which generated this result transmitted reference range: 10*3/?L. The reference range was not used to interpret this result as normal/abnormal. NRBC/100 WBC (test code = 7186209721) See_Comment [Automated [employer]] The system which generated this result transmitted reference range: 0.0 - 10.0 /100 WBCs. The reference range was not used to interpret this result as normal/abnormal. IPF % (test code = 0646275727) Lab Interpretation (test code = 98627-5) Abnormal [facility] CenterMOD BARIUM SWALLOW, (COOKNIYA)2020-01-04 14:56:301. ?Episodes [...] reviewed this study and agree with the abovereport.[facility] CenterIR G-TUBE PLACEMENT [id number] 16:13:50Successful placement of a 16 Cameroonian gastrostomy catheter withabsorbable gastropexy. I, as teaching [...] tract was dilatedover a guidewire to 22 Cameroonian, and a 16 Cameroonian gastrostomy tube wasadvanced into the stomach. The catheter was secured to the skin using thebumper mechanism after inflating the G-tube balloon with normal saline andcontrast admixture. ESTIMATED BLOOD LOSS: Minimal. CONDITION: Stable. DISCHARGED TO: Recovery and then to inpatient unit. FINDINGS: Final fluoroscopic images demonstrate the gastrostomy catheterwith its tip in the body of the stomach. No complications are identified. [facility], Radiant Results Inft User - 01/02/2020 [...] was obtained. Prior to beginning the procedure, [place] Protocolwas performed to confirm the patient's identity [...] tract was dilatedover a guidewire to 22 Cameroonian, and a 16 Cameroonian gastrostomy tube wasadvanced into the stomach. The catheter was secured to the skin using thebumper mechanism after inflating the G-tube balloon with normal saline andcontrast admixture. ESTIMATED BLOOD LOSS: Minimal.CONDITION: Stable.DISCHARGED TO: Recovery and then to inpatient unit. FINDINGS: Final fluoroscopic images demonstrate the gastrostomy catheterwith its tip in the body of the stomach. No complications are identified. IMPRESSIONSuccessful placement of a 16 Cameroonian gastrostomy catheter withabsorbable gastropexy.I, as teaching physician, was present during the entire procedure and/orduring the oleary components.Preliminary Report Dictated by Resident: Issa Wilson MD., have reviewed this study and agree with the abovereport. [facility] (NA, K, CL, CO2, GLUCOSE, BUN, CREATININE, CA)2020-01-01 10:21:00* Test Item Value Reference Range Interpretation Comme nts NA (test code = 7459113046) 138 mmol/L 135-145 K (test code = 5914833797) 3.8 mmol/L 3.5-5 CL (test code = 4348102224) 106 mmol/L 98-108 CO2 TOTAL (test code = 3428550552) 26 mmol/L 23-31 AGAP (test code = 7270136155) 2-16 BUN (test code = 5646794823) 19 mg/dL 7-23 GLUCOSE (test code = 0410677564) 121 mg/dL 70-110 H CREATININE (test code = 8007666800) 0.75 mg/dL 0.5-1.04 CALCIUM (test code = 2306596943) 9.1 mg/dL 8.6-10.6 eGFR Calculation (Non-) (test code = 7441041864) mL/min/1.73m2 eGFR Calculation () (test code = 8799908068) mL/min/1.73m2 TONE (test code = TONE) Association [...] imaging tests). Lab Interpretation (test code = 29975-0) [facility]normal [facility]2020-10-18 10:21:00* Test Item Value Reference Range Interpretation Comme nts MAGNESIUM (test code = 5947645958) 2.0 mg/dL 1.7-2.4 Lab Interpretation (test cod e = 52810-1) Normal [facility] WITH [id number] 09:47:00* Test Item Value Reference Range Interpretation [...] 32.7 g/dL 31.6-35.1 RDW-SD (test code = 81550-2) 41.7 fL 39-49.9 RDW-CV (test code = 788-0) 11.9 % 12-15.5 L PLT (test code = 777-3) See_Comment [Automated messa ge] The system which generated this result transmitted reference range: 166 - 358 10*3/?L. The reference range was not used to interpret this result as normal/abnormal. MPV (test code = 08475-0) 11.0 fL 9.5-12.9 NRBC/100 WBC (test code = 3028886601) See_Comment [Automated [employer] ssage] The system which generated this result transmitted reference range: 0.0 - 10.0 /100 WBCs. The reference range was not used to interpret this result as normal/abnormal. NRBC x10^3 (test code = 6813590965) <0.01 See_Comment [Automated messa ge] The system which generated this result transmitted reference range: 10*3/?L. The reference range was not used to interpret this result as normal/abnormal. GRAN MAT (NEUT) % (test code = 770-8) 66.5 % IMM GRAN % (test code = 3562119534) 0.40 % LYMPH % (test code = 736-9) 20.9 % MONO % (test code = 5905-5) 10.0 % EOS % (test code = 713-8) 1.7 % BASO % (test code = 706-2) 0.5 % GRAN MAT x10^3(ANC) (test code = 1382020379) 5.38 10*3/uL 1.88-7.09 IMM GRAN x10^3 (test code = 3113147676) 0.03 10*3/uL 0-0.06 LYMPH x10^3 (test code = 731-0) 1.69 10*3/uL 1.32-3.29 MONO x10^3 (test code = 742-7) 0.81 10*3/uL 0.33-0.92 EOS x10^3 (test code = 711-2) 0.14 10*3/uL 0.03-0.39 BASO x10^3 (test code = 704-7) 0.04 10*3/uL 0.01-0.07 Lab Interpretation (test code = 86573-6) Abnormal [facility] METABOLIC PANEL (NA, K, CL, CO2, GLUCOSE, BUN, CREATININE, CA)2019-12-31 10:16:00* Test Item Value Reference Range Interpretation Comme nts NA (test code = 1207059911) 136 mmol/L 135-145 K (test code = 4913196238) 4.0 mmol/L 3.5-5 CL (test code = 0577580250) 108 mmol/L 98-108 CO2 TOTAL (test code = 4920937716) 22 mmol/L 23-31 L AGAP (test code = 9046772089) 2-16 BUN (test code = 0124961028) 16 mg/dL 7-23 GLUCOSE (test code = 6826385992) 89 mg/dL 70-110 CREATININE (test code = 1359319090) 0.67 mg/dL 0.5-1.04 CALCIUM (test code = 6806169878) 8.3 mg/dL 8.6-10.6 L eGFR Calculation (Non-) (test code = 6555114106) mL/min/1.73m2 eGFR Calculation () (test code = 8030129880) mL/min/1.73m2 TONE (test code = TONE) Association [...] imaging tests). Lab Interpretation (test code = 88114-3) Abnormal [facility]2020-10-17 10:16:00* Test Item Value Reference Range Interpretation Comme nts MAGNESIUM (test code = 1932447749) 1.8 mg/dL 1.7-2.4 Lab Interpretation (test cod e = 96841-8) Normal [facility] WITH [id number] 09:29:00* Test Item Value Reference Range Interpretation Comme nts WBC (test code = 6690-2) See_Comment [Automated [employer]] The system which generated this result transmitted [...] 32.9 g/dL 31.6-35.1 RDW-SD (test code = 78911-4) 41.3 fL 39-49.9 RDW-CV (test code = 788-0) 11.9 % 12-15.5 L PLT (test code = 777-3) See_Comment [Automated messa ge] The system which generated this result transmitted reference range: 166 - 358 10*3/?L. The reference range was not used to interpret this result as normal/abnormal. MPV (test code = 24679-5) 11.0 fL 9.5-12.9 NRBC/100 WBC (test code = 1613676453) See_Comment [Automated [employer] ssage] The system which generated this result transmitted reference range: 0.0 - 10.0 /100 WBCs. The reference range was not used to interpret this result as normal/abnormal. NRBC x10^3 (test code = 0192862778) <0.01 See_Comment [Automated messa ge] The system which generated this result transmitted reference range: 10*3/?L. The reference range was not used to interpret this result as normal/abnormal. GRAN MAT (NEUT) % (test code = 770-8) 71.1 % IMM GRAN % (test code = 3621614127) 0.40 % LYMPH % (test code = 736-9) 19.5 % MONO % (test code = 5905-5) 7.7 % EOS % (test code = 713-8) 1.0 % BASO % (test code = 706-2) 0.3 % GRAN MAT x10^3(ANC) (test code = 0561206443) 5.62 10*3/uL 1.88-7.09 IMM GRAN x10^3 (test code = 3556754005) 0.03 10*3/uL 0-0.06 LYMPH x10^3 (test code = 731-0) 1.54 10*3/uL 1.32-3.29 MONO x10^3 (test code = 742-7) 0.61 10*3/uL 0.33-0.92 EOS x10^3 (test code = 711-2) 0.08 10*3/uL 0.03-0.39 BASO x10^3 (test code = 704-7) <0.03 0.01-0.07 Lab Interpretation (test code = 23711-6) Abnormal [facility] 1 [id number] 13:34:49New faint left lower lung opacity may represent developing infectiousetiology. Preliminary Report Dictated by Resident: Isaiah Rios MD., have reviewed this study and agree with the abovereport.EXAM: XR CHEST 1 VW 12/30/2019 6:40 AM HISTORY: 59 years-old Female with cough TECHNIQUE: Portable AP view of the chest. COMPARISON: CXR 12/29/2019 FINDINGS: Lines and tubes: Enteric tube is seen coursing subdiaphragmatically withtip outside the cpvbu-rk-rjbl. Cardiomediastinal: The cardiomediastinal silhouette is normal. Lungs and pleura: The hilar vasculature is more prominent onthe study,possibly due to technique. A new faint opacity is seen in the left lowerlung field, suggestive of a focal underlying consolidation. Redemonstrationof emphysematous changes. Musculoskeletal:No acute skeletal abnormality. Similar appearance ofwidened right acromioclavicular joint. [facility], Radiant Results Inft User - 12/30/2019 8:35 AM CDTEXAM: XR CHEST 1 VW 12/30/2019 6:40 AMHISTORY: 59 years- old Female with cough TECHNIQUE: Portable AP view of the chest. COMPARISON: CXR 12/29/2019FINDINGS: Lines and tubes: Enteric tube is seen coursing subdiaphragmatically withtip outside the rxfbb-am-ebej.Cardiomediastinal: The cardiomediastinal silhouette is normal.Lungs and pleura: The hilar vasculature is more prominent on the study,possibly due to technique. A new faint opacity is seen in theleft lowerlung field, suggestive of a focal underlying consolidation. Redemonstrationof emphysematous changes.Musculoskeletal: No acute skeletal abnormality. Similar appearance ofwidened right acromioclavicular joint.IMPRESSIONNew faint left lower lung opacity may represent developing infectiousetiology.Preliminary Report Dictated by Resident: Isaiah Hurst MD., have reviewed this study and agree with the abovereport. [facility] CenterBL[facility] [id number] 11:01:00* Test Item Value Reference Range Interpretation Comme nts Blood Culture-Aerobic (test code = 50030-1) No organisms isolated No growth Previous preliminary verified result was Culture In Progress on 12/25/2019 at 09 CDTPrevious preliminary verified result was No growth at 24 hours on 12/26/2019 at 06 CDTPrevious preliminary verified result was No growth at 48 hours on 12/27/2019 at [facility] CDTPrevious preliminary verified result was No growth at 72 hours on 12/28/2019 at 06 CDT Blood Culture-Anaerobic (test code = 25336-6) No organisms isolated No growth Previous preliminary [...] 06 CDT Lab Interpretation (test code = 90434-9) Normal [facility] Center[facility] [id number] 11:01:00* Test Item Value Reference Range Interpretation Comme nts Blood Culture-Aerobic (test code = 17168-2) No organisms isolated No growth Previous preliminary [...] 06 CDT Blood Culture-Anaerobic (test code = 66843-9) No organisms isolated No growth Previous preliminary verified result was Culture In Progress on 12/25/2019 at 09 CDTPrevious preliminary verified result was No growth at 24 hours on 12/26/2019 at 06 CDTPrevious preliminary verified result was No growth at 48 hours on 12/27/2019 at [facility] CDTPrevious preliminary verified result was No growth at 72 hours on 12/28/2019 at [facility] CDT TONE (test code = TONE) Optimal blood volume for culture is 8-10 mL per bottle. A suboptimal volume of blood was collected for this culture, which could adversely affect recovery and/or time of detection of organisms. Interpret results accordingly. Lab Interpretation (test code = 01709-2) Normal [facility] METABOLIC PANEL (NA, K, CL, CO2, GLUCOSE, BUN, CREATININE, CA)2019-12-30 08:55:00* Test Item Value Reference Range Interpretation Comme nts NA (test code = 8194363203) 141 mmol/L 135-145 K (test code = 8828864906) 4.0 mmol/L 3.5-5 CL (test code = 5379027781) 106 mmol/L 98-108 CO2 TOTAL (test code = 8337892917) 27 mmol/L 23-31 AGAP (test code = 0557734260) 2-16 BUN (test code = 7340633068) 18 mg/dL 7-23 GLUCOSE (test code = 8551095683) 91 mg/dL 70-110 CREATININE (test code = 8214011737) 0.69 mg/dL 0.5-1.04 CALCIUM (test code = 3071327603) 8.6 mg/dL 8.6-10.6 eGFR Calculation (Non-) (test code = 9720281901) mL/min/1.73m2 eGFR Calculation () (test code = 1214139710) mL/min/1.73m2 TONE (test code = TONE) Association [...] or urine or abnormalities in imaging tests). [facility]2020-10-16 08:55:00* Test Item Value Reference Range Interpretation Comme nts MAGNESIUM (test code = 7691726098) 1.9 mg/dL 1.7-2.4 Lab Interpretation (test cod e = 86211-6) Normal [facility] WITH [id number] 08:43:00* Test Item Value Reference Range Interpretation Comme nts WBC (test code = 6690-2) See_Comment [Automated [employer]] The system which generated this result transmitted reference range: 4.30 - 11.10 10*3/?L. The reference range was not used to interpret this result as normal/abnormal. RBC (test code = 789-8) See_Comment [Automated [employer]] The system which generated this result transmitted [...] 32.9 g/dL 31.6-35.1 RDW-SD (test code = 36392-4) 42.8 fL 39-49.9 RDW-CV (test code = 788-0) 12.2 % 12-15.5 PLT (test code = 777-3) See_Comment [Automated messa ge] The system which generated this result transmitted reference range: 166 - 358 10*3/?L. The reference range was not used to interpret this result as normal/abnormal. MPV (test code = 00695-9) 11.3 fL 9.5-12.9 NRBC/100 WBC (test code = 4768012592) See_Comment [Automated [employer] ssage] The system which generated this result transmitted reference range: 0.0 - 10.0 /100 WBCs. The reference range was not used to interpret this result as normal/abnormal. NRBC x10^3 (test code = 7703898152) <0.01 See_Comment [Automated [employer]] The system which generated this result transmitted reference range: 10*3/?L. The reference range was not used to interpret this result as normal/abnormal. GRAN MAT (NEUT) % (test code = 770-8) 69.8 % IMM GRAN % (test code = 1024608787) 0.30 % LYMPH % (test code = 736-9) 17.1 % MONO % (test code = 5905-5) 10.4 % EOS % (test code = 713-8) 2.1 % BASO % (test code = 706-2) 0.3 % GRAN MAT x10^3(ANC) (test code = 3553555425) 6.68 10*3/uL 1.88-7.09 IMM GRAN x10^3 (test code = 1367584092) 0.03 10*3/uL 0-0.06 LYMPH x10^3 (test code = 731-0) 1.63 10*3/uL 1.32-3.29 MONO x10^3 (test code = 742-7) 0.99 10*3/uL 0.33-0.92 H EOS x10^3 (test code = 711-2) 0.20 10*3/uL 0.03-0.39 BASO x10^3 (test code = 704-7) 0.03 10*3/uL 0.01-0.07 Lab Interpretation (test code = 42340-1) Abnormal [facility] CenterXR [id number] 23:25:01Appropriate positioning enteric tube. 2. Nonobstructive bowel gas pattern. Preliminary Report Dictated by Resident: Martha Bartlett MD., have reviewed this study and agreewith [...] pathologically dilated bowelloops.Vascular calcifications are noted.No acute bonyabnormality is present.IMPRESSIONAppropriate positioning enteric tube. 2. Nonobstructive bowel gas pattern.Preliminary Report Dictated by Resident: Martha Anderson MD., have reviewed this study and agree with theabove report.[facility]XR CHEST 1 [id number] 20:12:56No acute cardiopulmonary abnormality. Chronic emphysematous changes. Preliminary Report Dictated byResident: Martin Rios MD., have reviewed this study and agree with theabove report.EXAM: XR CHEST 1 VW 12/29/2019 11:59 AM HISTORY: 59 years-old Female with cough TECHNIQUE: Portable AP view of the chest. COMPARISON: CXR 12/24/2019 FINDINGS: Lines and tubes: Interval placement of enteric tube coursingsubdiaphragmatically with tip outside the owunf-en-yips, likely within thestomach. Cardiomediastinal: The cardiomediastinal silhouette is unchanged. Lungs and pleura: Emphysematous changes more prominent at the lung apicesare seen, similar to prior. No focal consolidation, pneumothorax, orpleural effusion is seen. Musculoskeletal: No acute skeletal abnormality. Osteopenia. The rightacromioclavicular joint space is widened, similar to prior [facility], Radiant Results Inft User - 12/29/2019 3:14 PM CDTEXAM: XR CHEST 1 VW 12/29/2019 11:59 AMHISTORY: 59 years-old Female with cough TECHNIQUE: Portable AP view of the chest. COMPARISON: CXR 12/24/2019FINDINGS: Lines and tubes: Interval placement of enteric tube coursingsubdiaphragmatically with tip outside the cvtwa-bc-wpzx, likely within thestomach.Cardiomediastinal: The cardiomediastinal silhouette is [...] this study and agree with theabove report. [facility] CenterAC PANEL 20 + LACTIC [id number] 16:56:00* Test Item Value Reference Range Interpretation Comme nts PH (test code = 2) 7.35-7.45 PCO2 (test code = 7365561221) See_Comment [Automated [employer]] The system which generated this result transmitted reference range: 35 - 45 mmHg. The reference range was not used to interpret this result as normal/abnormal. PO2 (test code = 0052647861) See_Comment [Automated [employer]] The system which generated this result transmitted reference range: 80 - 100 mmHg. The reference range was not used to interpret this result as normal/abnormal. HCO3 (test code = 2110340473) See_Comment [Automated messa ge] The system which generated this result transmitted reference range: 22 - 26 mEq/L. The reference range was not used to interpret this result as normal/abnormal. BE (test code = 9640873230) See_Comment [Automated messa ge] The system which generated this result transmitted reference range: -3.0 - 3.0 mEq/L. The reference range was not used to interpret this result as normal/abnormal. THB (test code = 5109285036) 14.4 g/dL 12-16 %O2HB (test code = 8205211842) 94.3 % 94-99 %COHB ART (test code = 5257169518) 0.8 % 0-1.5 %METHB ART (test code = 1750201041) 0.0 % 0.4-1.5 L VOL%O2 ART (test code = 2674433943) 19.1 % 15-23 NA (test code = 7392972321) 136 mmol/L 135-145 K+ (test code = 6093153036) 4.2 mmol/L 3.5-5 AC CA IONZ (test code = 5880191084) 5.00 mg/dL 4.5-5.3 GLUCOSE (test code = 9773998549) 118 mg/dL 70-110 H LACTIC ACID (test code = 6995936483) 0.98 mmol/L Lab Interpretation (test code = 28489-4) Abnormal [facility] CenterPOKY GLUCOSE (AUTOMATED)2019-12-29 16:49:00* Test Item Value Reference Range Interpretation Comme [facility] POCT GLU (test code = 3737205308) 108 mg/dL 70-110 Lab Interpretation (test cod e = 03858-4) Normal [facility] METABOLIC PANEL (NA, K, CL, CO2, GLUCOSE, BUN, CREATININE, CA)2019-12-29 10:35:00* Test Item Value Reference Range Interpretation Comme [facility] NA (test code = 2995422674) 135 mmol/L 135-145 K (test code = 5190033681) 4.2 mmol/L 3.5-5 CL (test code = 6213357418) 104 mmol/L 98-108 CO2 TOTAL (test code = 9805229509) 26 mmol/L 23-31 AGAP (test code = 7688744040) 2-16 BUN (test code = 1773371548) 16 mg/dL 7-23 GLUCOSE (test code = 0807614831) 102 mg/dL 70-110 CREATININE (test code = 2261748659) 0.60 mg/dL 0.5-1.04 CALCIUM (test code = 2936514310) 9.2 mg/dL 8.6-10.6 eGFR Calculation (Non-) (test code = 9152322862) mL/min/1.73m2 eGFR Calculation () (test code = 0566698474) mL/min/1.73m2 TONE (test code = TONE) Association [...] or urine or abnormalities in imaging tests). [facility] Test Item Value Reference Range Interpretation Comme nts MAGNESIUM (test code = 6747917588) 1.8 mg/dL 1.7-2.4 Lab Interpretation (test cod e = 68244-7) Normal [facility] WITH [id number] 10:09:00* Test Item Value Reference Range Interpretation [...] 33.1 g/dL 31.6-35.1 RDW-SD (test code = 69431-6) 42.3 fL 39-49.9 RDW-CV (test code = 788-0) 12.3 % 12-15.5 PLT (test code = 777-3) See_Comment [Automated messa ge] The system which generated this result transmitted reference range: 166 - 358 10*3/?L. The reference range was not used to interpret this result as normal/abnormal. MPV (test code = 80184-7) 11.1 fL 9.5-12.9 NRBC/100 WBC (test code = 3835353957) See_Comment [Automated [employer]] The system which generated this result transmitted reference range: 0.0 - 10.0 /100 WBCs. The reference range was not used to interpret this result as normal/abnormal. NRBC x10^3 (test code = 5553459294) <0.01 See_Comment [Automated messa ge] The system which generated this result transmitted reference range: 10*3/?L. The reference range was not used to interpret this result as normal/abnormal. GRAN MAT (NEUT) % (test code = 770-8) 78.0 % IMM GRAN % (test code = 6170481134) 0.20 % LYMPH % (test code = 736-9) 10.3 % MONO % (test code = 5905-5) 10.7 % EOS % (test code = 713-8) 0.5 % BASO % (test code = 706-2) 0.3 % GRAN MAT x10^3(ANC) (test code = 4627056575) 8.63 10*3/uL 1.88-7.09 H IMM GRAN x10^3 (test code = 9693585346) <0.03 0-0.06 LYMPH x10^3 (test code = 731-0) 1.14 10*3/uL 1.32-3.29 L MONO x10^3 (test code = 742-7) 1.18 10*3/uL 0.33-0.92 H EOS x10^3 (test code = 711-2) 0.06 10*3/uL 0.03-0.39 BASO x10^3 (test code = 704-7) 0.03 10*3/uL 0.01-0.07 Lab Interpretation (test code = 81507-9) Abnormal [facility] CenterN-TERMINAL [id number] 22:23:00* Test Item Value Reference Range Interpretation Comme nts NT-proBNP (test code = 9377035404) 254 pg/mL See_Comment H [Automated message] The system which generated this result transmitted reference range: <=125. The reference range was not used to interpret this result as normal/abnormal. TONE (test code = TONE) Biotin has been reported to cause a negative bias, interpret results relative to patient's use of biotin. Lab Interpretation (test code = 17764-7) Abnormal [facility] WITH [id number] 08:29:00* Test Item Value Reference Range Interpretation Comme nts WBC (test code = 6690-2) See_Comment [Automated messa ge] The system which generated this result transmitted reference range: 4.30 - 11.10 10*3/?L. The reference range was not used to interpret this result as normal/abnormal. RBC (test code = 789-8) See_Comment [Automated [employer]] The system which generated this result [...] 33.1 g/dL 31.6-35.1 RDW-SD (test code = 04797-0) 43.0 fL 39-49.9 RDW-CV (test code = 788-0) 12.4 % 12-15.5 PLT (test code = 777-3) See_Comment [Automated [employer]] The system which generated this result transmitted reference range: 166 - 358 10*3/?L. The reference range was not used to interpret this result as normal/abnormal. MPV (test code = 86657-4) 10.8 fL 9.5-12.9 NRBC/100 WBC (test code = 1486835460) See_Comment [Automated [employer]] The system which generated this result transmitted reference range: 0.0 - 10.0 /100 WBCs. The reference range was not used to interpret this result as normal/abnormal. NRBC x10^3 (test code = 5230576908) <0.01 See_Comment [Automated [employer]] The system which generated this result transmitted reference range: 10*3/?L. The reference range was not used to interpret this result as normal/abnormal. GRAN MAT (NEUT) % (test code = 770-8) 74.1 % IMM GRAN % (test code = 5628964228) 0.40 % LYMPH % (test code = 736-9) 14.8 % MONO % (test code = 5905-5) 9.6 % EOS % (test code = 713-8) 0.7 % BASO % (test code = 706-2) 0.4 % GRAN MAT x10^3(ANC) (test code = 8815752834) 5.98 10*3/uL 1.88-7.09 IMM GRAN x10^3 (test code = 6630331233) 0.03 10*3/uL 0-0.06 LYMPH x10^3 (test code = 731-0) 1.19 10*3/uL 1.32-3.29 L MONO x10^3 (test code = 742-7) 0.77 10*3/uL 0.33-0.92 EOS x10^3 (test code = 711-2) 0.06 10*3/uL 0.03-0.39 BASO x10^3 (test code = 704-7) 0.03 10*3/uL 0.01-0.07 Lab Interpretation (test code = 16143-8) Abnormal [facility] METABOLIC PANEL (NA, K, CL, CO2, GLUCOSE, BUN, CREATININE, CA)2019-12-28 08:13:00* Test Item Value Reference Range Interpretation Comme nts NA (test code = 3435334556) 139 mmol/L 135-145 K (test code = 7925257489) 3.1 mmol/L 3.5-5 L CL (test code = 5842417104) 113 mmol/L 98-108 H CO2 TOTAL (test code = 3708670554) 23 mmol/L 23-31 AGAP (test code = 2219028757) 2-16 BUN (test code = 9616086007) 21 mg/dL 7-23 GLUCOSE (test code = 1870054415) 107 mg/dL 70-110 CREATININE (test code = 0412438664) 0.64 mg/dL 0.5-1.04 CALCIUM (test code = 2292071394) 7.6 mg/dL 8.6-10.6 L eGFR Calculation (Non-) (test code = 1681411385) mL/min/1.73m2 eGFR Calculation () (test code = 0703440478) mL/min/1.73m2 TONE (test code = TONE) Association [...] imaging tests). Lab Interpretation (test code = 24559-8) Abnormal [facility]2020-10-14 08:13:00* Test Item Value Reference Range Interpretation Comme [facility] MAGNESIUM (test code = 9009037568) 1.9 mg/dL 1.7-2.4 Lab Interpretation (test cod e = 02271-0) Normal [facility] CenterPROTHROMBIN TIME / [id number] 07:52:00* Test Item Value Reference Range Interpretation Comme nts PROTIME PATIENT (test code = 5964-2) See_Comment [Automated [employer]] The system which generated this result transmitted reference range: 10.1 - 12.6 Seconds. The reference range was not used to interpret this result as normal/abnormal. INR (test code = 6301-6) Normal INR <1.1; Warfarin Therapeutic range 2.0 to 3.0 or 2.5 to 3.5, depending upon the indications. Lab Interpretation (test code = 53009-2) Normal [facility]XR [id number] 14:44:08FINDINGS/IMPRESSION: The weighted enteric tube tip lies [...] reviewed this study and agree with theabove report.[facility] CenterMAGN[facility]IUM2020-10-13 09:11:00* Test Item Value Reference Range Interpretation Comme nts MAGNESIUM (test code = 7811114996) 1.8 mg/dL 1.7-2.4 Lab Interpretation (test cod e = 71187-7) Normal [facility] CenterBAS[facility]OLIC PANEL (NA, K, CL, CO2, GLUCOSE, BUN, CREATININE, CA)2019-12-27 09:11:00* Test Item Value Reference Range Interpretation Comme nts NA (test code = 9358935310) 137 mmol/L 135-145 K (test code = 6393075072) 3.8 mmol/L 3.5-5 Slight hemolysis CL (test code = 7583498250) 106 mmol/L 98-108 CO2 TOTAL (test code = 4995613519) 23 mmol/L 23-31 AGAP (test code = 3746475736) 2-16 BUN (test code = 4957254709) 18 mg/dL 7-23 Slight hemolysis GLUCOSE (test code = 1813565242) 113 mg/dL 70-110 H CREATININE (test code = 1698221123) 0.69 mg/dL 0.5-1.04 CALCIUM (test code = 5257923168) 9.2 mg/dL 8.6-10.6 eGFR Calculation (Non-) (test code = 0247206950) mL/min/1.73m2 eGFR Calculation () (test code = 1640228679) mL/min/1.73m2 TONE (test code = TONE) Association [...] imaging tests). Lab Interpretation (test code = 11624-6) Abnormal [facility] WITH [id number] 08:46:00* Test Item Value Reference Range Interpretation Comme nts WBC (test code = 6690-2) See_Comment [Automated [employer]] The system which generated this result transmitted [...] 34.3 g/dL 31.6-35.1 RDW-SD (test code = 19981-6) 41.2 fL 39-49.9 RDW-CV (test code = 788-0) 12.0 % 12-15.5 PLT (test code = 777-3) See_Comment [Automated [employer]] The system which generated this result transmitted reference range: 166 - 358 10*3/?L. The reference range was not used to interpret this result as normal/abnormal. MPV (test code = 18841-4) 10.9 fL 9.5-12.9 NRBC/100 WBC (test code = 5519143399) See_Comment [Automated [employer] ssage] The system which generated this result transmitted reference range: 0.0 - 10.0 /100 WBCs. The reference range was not used to interpret this result as normal/abnormal. NRBC x10^3 (test code = 8615742176) <0.01 See_Comment [Automated messa ge] The system which generated this result transmitted reference range: 10*3/?L. The reference range was not used to interpret this result as normal/abnormal. GRAN MAT (NEUT) % (test code = 770-8) 81.1 % IMM GRAN % (test code = 4674630244) 0.20 % LYMPH % (test code = 736-9) 10.8 % MONO % (test code = 5905-5) 7.5 % EOS % (test code = 713-8) 0.2 % BASO % (test code = 706-2) 0.2 % GRAN MAT x10^3(ANC) (test code = 2531320310) 7.27 10*3/uL 1.88-7.09 H IMM GRAN x10^3 (test code = 7318082657) <0.03 0-0.06 LYMPH x10^3 (test code = 731-0) 0.97 10*3/uL 1.32-3.29 L MONO x10^3 (test code = 742-7) 0.67 10*3/uL 0.33-0.92 EOS x10^3 (test code = 711-2) <0.03 0.03-0.39 L BASO x10^3 (test code = 704-7) <0.03 0.01-0.07 Lab Interpretation (test code = 24976-9) Abnormal [facility] Center[facility]ro[facility] ([facility] - Duration of test: [...] segment. Interpreted byGigi Colby MD on 12/27/19 INTERMEDIATE E EG MONITORING SEGMENT #2: Date and [...] Interpreted by Tena King MD on 12/27/19 DRILLING ENGINEER EEG MONITORING SEGMENT #3: 12/27/19, 16:14:06-19:20:49 This [...] segment.Interpreted by Cesar Dixon MD on 12/27/19 DRILLING ENGINEER EEG MONITORING SEGMENT #3: 12/27/19,19:20:49 -12/28/2019, 11:17:23 [...] written. Interpreted by Claudio King MD on [facility] CenterMR BRAIN WO [id number] 18:46:55Motion degraded exam. Large subacute infarct in [...] this study and agree with theabove report. [facility] CenterAbdominal 1 View - To confirm [...] reviewed this study and agree with theabove report.[facility] CenterXR [id number] 15:04:26 FINDINGS/IMPRESSION: The tip of the [place] [...] reviewed this study and agree with theabove report.[facility] CenterKIM [id number] 13:02:00* Test Item Value Reference Range Interpretation Comme nts TROPONIN I (test code = 4166795085) 0.013 ng/mL See_Comment [Automated message] The system [...] biotin. ? Lab Interpretation (test code = 57151-2) Normal [facility] CenterBASI METABOLIC PANEL (NA, K, CL, CO2, GLUCOSE, BUN, CREATININE, CA)2019-12-26 09:46:00* Test Item Value Reference Range Interpretation Comme nts NA (test code = 1361137084) 137 mmol/L 135-145 K (test code = 9981870740) 3.7 mmol/L 3.5-5 CL (test code = 0938148611) 108 mmol/L 98-108 CO2 TOTAL (test code = 8340124868) 21 mmol/L 23-31 L AGAP (test code = 5949446439) 2-16 BUN (test code = 5936773128) 10 mg/dL 7-23 GLUCOSE (test code = 9490357738) 107 mg/dL 70-110 CREATININE (test code = 7002377009) 0.57 mg/dL 0.5-1.04 CALCIUM (test code = 6094578171) 8.4 mg/dL 8.6-10.6 L eGFR Calculation (Non-) (test code = 7789787457) mL/min/1.73m2 eGFR Calculation () (test code = 4157527163) mL/min/1.73m2 TONE (test code = TONE) Association [...] imaging tests). Lab Interpretation (test code = 30824-7) Abnormal [facility] WITH [id number] 09:20:00* Test Item Value Reference Range Interpretation Comme nts WBC (test code = 6690-2) See_Comment H [Automated [employer]] The system which generated this result transmitted [...] 34.1 g/dL 31.6-35.1 RDW-SD (test code = 59217-2) 42.5 fL 39-49.9 RDW-CV (test code = 788-0) 12.2 % 12-15.5 PLT (test code = 777-3) See_Comment [Automated messa ge] The system which generated this result transmitted reference range: 166 - 358 10*3/?L. The reference range was not used to interpret this result as normal/abnormal. MPV (test code = 84662-5) 10.5 fL 9.5-12.9 NRBC/100 WBC (test code = 6086452850) See_Comment [Automated [employer] ssage] The system which generated this result transmitted reference range: 0.0 - 10.0 /100 WBCs. The reference range was not used to interpret this result as normal/abnormal. NRBC x10^3 (test code = 7628209628) <0.01 See_Comment [Automated messa ge] The system which generated this result transmitted reference range: 10*3/?L. The reference range was not used to interpret this result as normal/abnormal. GRAN MAT (NEUT) % (test code = 770-8) 82.9 % IMM GRAN % (test code = 2982439521) 0.40 % LYMPH % (test code = 736-9) 10.4 % MONO % (test code = 5905-5) 5.9 % EOS % (test code = 713-8) 0.1 % BASO % (test code = 706-2) 0.3 % GRAN MAT x10^3(ANC) (test code = 5582188229) 9.76 10*3/uL 1.88-7.09 H IMM GRAN x10^3 (test code = 6779878061) 0.05 10*3/uL 0-0.06 LYMPH x10^3 (test code = 731-0) 1.23 10*3/uL 1.32-3.29 L MONO x10^3 (test code = 742-7) 0.70 10*3/uL 0.33-0.92 EOS x10^3 (test code = 711-2) <0.03 0.03-0.39 L BASO x10^3 (test code = 704-7) 0.04 10*3/uL 0.01-0.07 Lab Interpretation (test code = 32052-4) Abnormal [facility] CenterMRSA / MSSA Screen by PCR, [id number] 16:13:00* Test Item Value Reference Range Interpretation Comme nts MSSA Screen by PCR, Nares (test code = 88167-0) Positive Negative A MRSA/MSSA Positive? (test code = 2259485654) Yes No A TONE (test code = TONE) A positive test result does not necessarily indicate the presence of viable organism. Lab Interpretation (test code = 39516-6) Abnormal [facility] METABOLIC PANEL (NA, K, CL, CO2, GLUCOSE, BUN, CREATININE, CA)2019-12-25 09:09:00* Test Item Value Reference Range Interpretation Comme nts NA (test code = 7586925173) 141 mmol/L 135-145 K (test code = 3274500088) 4.6 mmol/L 3.5-5 Slight hemolysis CL (test code = 3469015543) 109 mmol/L 98-108 H CO2 TOTAL (test code = 0347743811) 23 mmol/L 23-31 AGAP (test code = 1955976625) 2-16 BUN (test code = 3398187861) 16 mg/dL 7-23 Slight hemolysis GLUCOSE (test code = 3570676393) 96 mg/dL 70-110 CREATININE (test code = 8606083886) 0.76 mg/dL 0.5-1.04 CALCIUM (test code = 5170659999) 8.8 mg/dL 8.6-10.6 eGFR Calculation (Non-) (test code = 5275454066) mL/min/1.73m2 eGFR Calculation () (test code = 1246886960) mL/min/1.73m2 TONE (test code = TONE) Association [...] imaging tests). Lab Interpretation (test code = 91181-4) Abnormal [facility] WITHOUT [id number] 08:20:00* Test Item Value Reference Range Interpretation [...] result as normal/abnormal. MPV (test code = 24633-6) 10.4 fL 9.5-12.9 RDW-CV (test code = 788-0) 12.8 % 12-15.5 RDW-SD (test code = 54394-8) 44.0 fL 39-49.9 NRBC x10^3 (test code = 7365117881) <0.01 See_Comment [Automated [employer]] The system which generated this result transmitted reference range: 10*3/?L. The reference range was not used to interpret this result as normal/abnormal. NRBC/100 WBC (test code = 0878179157) See_Comment [Automated [employer]] The system which generated this result transmitted reference range: 0.0 - 10.0 /100 WBCs. The reference range was not used to interpret this result as normal/abnormal. IPF % (test code = 7868690164) Lab Interpretation (test code = 83918-2) Abnormal [facility] CenterCT ANGIOGRAM [id number] 23:15:09Complete occlusion of the left cervical ICA [...] moderate focal narrowing of the mid basilar arteryUnCedar Park Regional Medical CenterCT ANGIOGRAM [id number] 23:15:09Complete occlusion of the left cervical ICA [...] moderate focal narrowing of the mid basilar arteryUnCedar Park Regional Medical CenterGLYCOSYLATED HEMOGLOBIN (A1C)2019-12-24 22:32:00* Test Item Value Reference Range Interpretation Comme nts HGB A1C (test code = 4548-4) 5.2 % 4-6 TONE (test code = TONE) %A1C (NGSP) Interpretation (ADA)4.8-5.6 ? ? Normal or (Non-Diabetic Range)5.7-6.4 ? ? Increased Risk (Pre-Diabetic)>6.5 ?Diabetes Indicated Lab Interpretation (test code = 54896-5) Normal [facility] CenterFASTING LIPID PANEL (10852)(TOTAL CHOLESTEROL, TRIGLYCERIDES, HDL)2019-12-24 21:44:00* Test Item Value Reference Range Interpretation Comme nts CHOL (test code = 5562882137) 211 mg/dL 120-200 H HDL (test code = 3652257372) 80 mg/dL >50 HDLC RATIO (test code = 8407587751) See_Comment [Automated [employer]] The system which generated this result transmitted reference range: <=4.5. The reference range was not used to interpret this result as normal/abnormal. TRIG (test code = 6855733947) 109 mg/dL 30-170 LDL CHOL (test code = 38903-9) 109 mg/dL See_Comment [Automated [employer]] The system which generated this result transmitted reference range: <=160. The reference range was not used to interpret this result as normal/abnormal. VLDL (test code = 6825142756) 22 mg/dL 5-60 Lab Interpretation (test code = 90975-8) Abnormal [facility] CenterCOVID-19 (ID NOW RAPID TESTING)2019-12-24 19:46:00* Test Item Value Reference Range Interpretation Comme nts SARS-CoV-2 Rapid ID NOW (test code = 15516-5) Not Detected Not Detected TONE (test code = TONE) ID NOW COVID-19 As say is an isothermal nucleic acid amplification test intended for the qualitative detection of nucleic acid from SARS-CoV-2 viral RNA in nasopharyngeal (SECURITY ASSESSOR) specimens. It is used under Emergency Use [...] clinically indicated. Lab Interpretation (test code = 85221-7) Normal [facility] CenterTHYROID STIMULATING [id number] 19:15:00 * Test Item Value Reference Range Interpretation Comme nts TSH (test code = 0387320374) See_Comment [Automated [employer]] The system which generated this result transmitted reference range: 0.45 - 4.70 mIU/L. The reference range was not used to interpret this result as normal/abnormal. Lab Interpretation (test code = 09132-9) Normal [facility] CenterFR [id number] 19:13:00* Test Item Value Reference Range Interpretation Comme nts FREE T3 (test code = 3849646883) 3.15 pg/mL 2.77-5.27 Lab Interpretation (test cod e = 87101-2) Normal [facility] CenterFREE [id number] 19:11:00* Test Item Value Reference Range Interpretation Comme nts FREE T4 (test code = 9073670823) See_Comment [Automated messa ge] The system which generated this result transmitted reference range: 0.78 - 2.20 ng/dL:. The reference range was not used to interpret this result as normal/abnormal. Lab Interpretation (test code = 96181-9) Normal [facility] CenterXR CHEST 1 [id number] 19:00:19Chronic emphysematous changes. No pleural effusion, pneumothorax [...] have reviewedthis study and agree with the abovereport.[facility] CenterTroponin [id number] 18:56:00* Test Item Value Reference Range Interpretation Comme nts TROPONIN I (test code = 6577730686) 0.017 ng/mL See_Comment [Automated message] The system [...] biotin. ? Lab Interpretation (test code = 34752-6) Normal [facility] CenterSALICYLATE2020-10-10 18:56:00* Test Item Value Reference Range Interpretation Comme nts SALICYLATE (test code = 1415558566) <10 mg/L TONE (test code = TONE) Therapeutic Range: ? Analgesic and Antipyretic Use ? 20-100 mg/L ? ? Anti-Inflammatory Use ? 100-250 mg/L Toxic Range: ? Greater than 300 mg/L [facility] CenterCT HEAD WO [id number] 18:50:08Acute- subacute infarct in the left MCA [...] with Dr. Mclean at the time of reportdictationUnCedar Park Regional Medical CenterETHANOL2020-10-10 18:50:00* Test Item Value Reference Range Interpretation Comme nts ALCOHOL (test code = 4373049880) <10 mg/dL TONE (test code = TONE) <10 Zguxqezs72-235 Toxic>100 Depression of RETIREMENT BENEFITS SPECIALIST>400 Fatalities Reported [facility] CenterBasic Metabolic Panel (NA, K, CL, CO2, GLUCOSE, BUN, CREATININE, CA)2019-12-24 18:45:00* Test Item Value Reference Range Interpretation Comme nts NA (test code = 9659615217) 139 mmol/L 135-145 K (test code = 5155968981) 3.5 mmol/L 3.5-5 CL (test code = 5153543121) 103 mmol/L 98-108 CO2 TOTAL (test code = 3888087874) 27 mmol/L 23-31 AGAP (test code = 2554862711) 2-16 BUN (test code = 4394372910) 16 mg/dL 7-23 GLUCOSE (test code = 3352439793) 127 mg/dL 70-110 H CREATININE (test code = 9566735641) 0.81 mg/dL 0.5-1.04 CALCIUM (test code = 7419345176) 9.9 mg/dL 8.6-10.6 eGFR Calculation (Non-) (test code = 0349865295) mL/min/1.73m2 eGFR Calculation () (test code = 2241925067) mL/min/1.73m2 TONE (test code = TONE) Association [...] imaging tests). Lab Interpretation (test code = 48071-5) Abnormal [facility] CenterHepatic Function Panel (ALB, T.PRO, BILI T, BU/BC, ALT, AST, ALK PHOS)2019-12-24 18:45:00* Test Item Value Reference Range Interpretation Comme nts TOTAL BILI (test code = 7554918135) 0.7 mg/dL 0.1-1.1 BILI UNCON (test code = 4947934916) 0.8 mg/dL 0.1-1.1 BILI CONJ (test code = 5400665273) 0.0 mg/dL 0-0.3 T PROTEIN (test code = 5222290430) 7.8 g/dL 6.3-8.2 ALBUMIN (test code = 9036803926) 4.2 g/dL 3.5-5 ALK PHOS (test code = 9223797357) 66 U/L 34-122 ALTv (test code = 1742-6) 20 U/L 5-35 AST(SGOT) (test code = 6015910300) 32 U/L 13-40 Lab Interpretation (test cod e = 77267-9) Normal [facility] CenterMAGNESIUM2020-10-10 18:45:00* Test Item Value Reference Range Interpretation Comme nts MAGNESIUM (test code = 4391181979) 1.9 mg/dL 1.7-2.4 Lab Interpretation (test cod e = 55254-1) Normal [facility] CenteraPTT2020-10-10 18:43:00* Test Item Value Reference Range Interpretation Comme nts APTT Patient (test code = 3173-2) See_Comment [Automated message] The system which generated this result transmitted reference range: 23 - 38 Seconds. The reference range was not used to interpret this result as normal/abnormal. TONE (test code = TONE) The [facility] patient population mean normal value for aPTT is 30 seconds. Lab Interpretation (test code = 54711-5) Normal [facility] CenterADC / L[facility] - DRUG SCREEN [id number] 18:43:00* Test Item Value Reference Range Interpretation Comme nts BENZO U (test code = 5660255001) Negative Negative NAOMI U (test code = 1231267470) Negative Negative AMPHET (test code = 4357130901) Negative Negative THC (test code = 8104918302) Presumptive Positive Negative A Confirmation of Presumptive Positive THC result requires physician order. METHADONE (test code = 9456682050) Negative Negative Meth U (test code = 1496874566) Negative Negative OPIATES (test code = 2932906642) Negative Negative Cocaine Metabolite (test code = 3828253686) Presumptive Positive Negative A PROPOXY (test code = 1429089874) Negative Negative Tric U (test code = 8301629240) Negative Negative PCP (test code = 8190358750) Negative Negative OXYCOD (test code = 1695024410) Negative Negative TONE (test code = TONE) [...] legal testing). Lab Interpretation (test code = 97670-1) Abnormal [facility] CenterProthrombin Time (PT) / [id number] 18:41:00 * Test Item Value Reference Range Interpretation Comme nts PROTIME PATIENT (test code = 5964-2) See_Comment [Automated [employer]] The system which generated this result transmitted reference range: 12.0 - 14.7 Seconds. The reference range was not used to interpret this result as normal/abnormal. INR (test code = 6301-6) Normal INR <1.1; Warfarin Therapeutic range 2.0 to 3.0 or 2.5 to 3.5, depending upon the indications. Lab Interpretation (test code = 92416-7) Normal [facility] CenterUrinalysis2020-10-10 18:37:00* Test Item Value Reference Range Interpretation Comme nts APPEARANCE (test code = 9476065674) Clear Clear COLOR (test code = 9534015679) Yellow Yellow PH (test code = 5157791490) 4.8-8.0 SP GRAVITY (test code = 4874943339) 1.003-1.030 GLU U QUAL (test code = 0545222276) Normal Normal BLOOD (test code = 1729090469) 2+ Negative A KETONES (test code = 3640803170) 5 mg/dL Negative A PROTEIN (test code = 2887-8) 100 mg/dL Negative A UROBILIN (test code = 7500466451) Normal Normal BILIRUBIN (test code = 6766049217) Negative Negative NITRITE (test code = 8593381848) Negative Negative LEUK LOGAN (test code = 7924324442) Negative Negative RBC/HPF (test code = 9328370824) See_Comment H [Automated messa ge] The system which generated this result transmitted reference range: 0 - 3 HPF. The reference range was not used to interpret this result as normal/abnormal. WBC/HPF (test code = 2302195720) See_Comment [Automated messa ge] The system which generated this result transmitted reference range: 0 - 5 HPF. The reference range was not used to interpret this result as normal/abnormal. BACTERIA (test code = 6441035023) Negative Negative MUCOUS (test code = 6578029317) Slight Negative LPF A SQ EPITH (test code = 8319047168) <1 HPF GRAN CASTS (test code = 0471149738) See_Comment [Automated messa ge] The system which generated this result transmitted reference range: <=1 LPF. The reference range was not used to interpret this result as normal/abnormal. Lab Interpretation (test code = 01688-6) Abnormal [facility] CenterCB with Dbpuoefwzrff5449-55-30 18:30:00* Test Item Value Reference Range Interpretation [...] 33.9 g/dL 31.6-35.1 RDW-SD (test code = 24158-9) 43.6 fL 39-49.9 RDW-CV (test code = 788-0) 12.6 % 12-15.5 PLT (test code = 777-3) See_Comment [Automated message] The system which generated this result transmitted reference range: 166 - 358 10*3/?L. The reference range was not used to interpret this result as normal/abnormal. MPV (test code = 98958-6) 10.5 fL 9.5-12.9 NRBC/100 WBC (test code = 8412080109) See_Comment [Automated message] The system which generated this result transmitted reference range: 0.0 - 10.0 /100 WBCs. The reference range was not used to interpret this result as normal/abnormal. NRBC x10^3 (test code = 7925424892) <0.01 See_Comment [Automated message] The system which generated this result transmitted reference range: 10*3/?L. The reference range was not used to interpret this result as normal/abnormal. GRAN MAT (NEUT) % (test code = 770-8) 82.1 % IMM GRAN % (test code = 4100854392) 0.40 % LYMPH % (test code = 736-9) 10.5 % MONO % (test code = 5905-5) 6.7 % EOS % (test code = 713-8) 0.1 % BASO % (test code = 706-2) 0.2 % GRAN MAT x10^3(ANC) (test code = 7370308943) 10.11 10*3/uL 1.88-7.09 H IMM GRAN x10^3 (test code = 7976501138) 0.05 10*3/uL 0-0.06 LYMPH x10^3 (test code = 731-0) 1.29 10*3/uL 1.32-3.29 L MONO x10^3 (test code = 742-7) 0.82 10*3/uL 0.33-0.92 EOS x10^3 (test code = 711-2) <0.03 0.03-0.39 L BASO x10^3 (test code = 704-7) <0.03 0.01-0.07 Lab Interpretation (test code = 90183-4) Abnormal [facility] CenterAC PANEL 21 + LACTIC [id number] 17:49:00* Test Item Value Reference Range Interpretation Comme nts PH (test code = 9282808660) 7.32-7.42 H PCO2 GAMA (test code = 8767183192) See_Comment L [Automated messa ge] The system which generated this result transmitted reference range: 41 - 51 mmHg. The reference range was not used to interpret this result as normal/abnormal. PO2 GAMA (test code = 7175804503) See_Comment [Automated messa ge] The system which generated this result transmitted reference range: 25 - 40 mmHg. The reference range was not used to interpret this result as normal/abnormal. HCO3 GAMA (test code = 8980798816) See_Comment [Automated messa ge] The system which generated this result transmitted reference range: 24 - 28 mEq/L. The reference range was not used to interpret this result as normal/abnormal. AC VBE(BEAKER) (test code = 2433225901) mEq/L THB GAMA (test code = 4053272996) 17.2 g/dL 12-16 H %O2HB GAMA (test code = 7626780941) 61.0 % 52-63 %COHB GAMA (test code = 4542652921) 1.4 % 0-1.5 %METHB GAMA (test code = 6321560898) 0.3 % 0.4-1.5 L VOL%O2 GAMA (test code = 4855837500) 14.7 % 6-12 H NA (test code = 4385971291) 142 mmol/L 135-145 K+ (test code = 4200416739) 3.7 mmol/L 3.5-5 AC CA IONZ (test code = 5848037792) 4.60 mg/dL 4.5-5.3 GLUCOSE (test code = 1978416180) 129 mg/dL 70-110 H LACTIC ACID (test code = 6945659230) 2.01 mmol/L Lab Interpretation (test code = 08799-3) Abnormal [facility] CenterTHYROID STIMULATING [id number] 22:36:00 * Test Item Value Reference Range Interpretation Comme nts TSH (test code = 7758889976) See_Comment [Automated [employer]] The system which generated this result transmitted reference range: 0.45 - 4.70 mIU/L. The reference range was not used to interpret this result as normal/abnormal. Lab Interpretation (test code = 55757-1) Normal [facility] CenterXR CHEST 1 [id number] 22:14:51No acute cardiopulmonary abnormality. Ivett Alcocer MD., have reviewed this study and agree with the abovereport.EXAM: XR CHEST 1 VW HISTORY: 58 years-old Female presenting with ams COMPARISON: chest radiographs?07/22/2015 FINDINGS: The lungs are hyperexpanded, but otherwise clear without focalconsolidation.?No pleural effusion or pneumothorax. The cardiomediastinal silhouette is normal. No acute bony abnormality. Widening of the right acromioclavicular jointlikely representing AC joint separation. [facility], Radiant Results Inft User - 11/14/2018 5:16 [...] reviewed this study and agree with the abovereport.[facility] CenterACETAMINOPHEN2019-09-01 22:08:00* Test Item Value Reference Range Interpretation Comme nts ACETAMINOP (test code = 5677338979) <10.0 10-30 L TONE (test code = TONE) Toxic: Greater mariana n 200 ug/mL @ 4 hour post ingestion or greater than 50 ug/mL @ 12 hour post ingestion Lab Interpretation (test code = 91268-1) Abnormal [facility] CenterETHANOL2019-09-01 22:08:00* Test Item Value Reference Range Interpretation Comme nts ALCOHOL (test code = 5222567105) <10 mg/dL TONE (test code = TONE) <10 Nrpkckdu95-662 Toxic>100 Depression of RETIREMENT BENEFITS SPECIALIST>400 Fatalities Reported [facility] CenterCOM. METABOLIC PANEL (64036)2018-11-14 22:05:00* Test Item Value Reference Range Interpretation Comme nts NA (test code = 2480282357) 142 mmol/L 135-145 K (test code = 5161101410) 4.3 mmol/L 3.5-5 CL (test code = 3791525032) 111 mmol/L 98-108 H CO2 TOTAL (test code = 3830390157) 24 mmol/L 23-31 AGAP (test code = 3477593400) 2-16 BUN (test code = 6858217496) 21 mg/dL 7-23 GLUCOSE (test code = 3617647486) 91 mg/dL 70-110 CREATININE (test code = 7948228222) 0.92 mg/dL 0.5-1.04 TOTAL BILI (test code = 1391654248) 0.2 mg/dL 0.1-1.1 CALCIUM (test code = 1006215234) 9.0 mg/dL 8.6-10.6 T PROTEIN (test code = 3284154849) 6.2 g/dL 6.3-8.2 L ALBUMIN (test code = 5218384412) 3.5 g/dL 3.5-5 ALK PHOS (test code = 5273965610) 48 U/L 34-122 ALT(SGPT) (test code = 6471526571) 14 U/L 9-51 AST(SGOT) (test code = 3197944681) 19 U/L 13-40 eGFR Calculation (Non-) (test code = 0471497883) mL/min/1.73m2 eGFR Calculation () (test code = 5700101678) mL/min/1.73m2 TONE (test code = TONE) Association [...] imaging tests). Lab Interpretation (test code = 11971-0) Abnormal [facility] CenterCT HEAD WO [id number] 21:52:08No acute findings. * * * * [...] The extracranial tissues demonstrate no acute findings. [facility], Radiant Results Inft User - 11/14/2018 [...] extracranial tissues demonstrate no acute findings.IMPRESSIONNo acute findings.[facility] / [facility] - DRUG SCREEN TRIAGE 2018-11-14 21:48:00* Test Item Value Reference Range Interpretation Comme nts BENZO U (test code = 8519529619) Negative Negative NAOMI U (test code = 1955238746) Negative Negative AMPHET (test code = 1644827125) Negative Negative THC (test code = 8101623189) Presumptive Positive Negative A Confirmation of Presumptive Positive THC result requires physician order. METHADONE (test code = 6809335294) Negative Negative Meth U (test code = 3583103273) Negative Negative OPIATES (test code = 2183559678) Negative Negative Cocaine Metabolite (test code = 2271169960) Presumptive Positive Negative A PROPOXY (test code = 5391902797) Negative Negative Tric U (test code = 9861357372) Negative Negative PCP (test code = 5469599086) Negative Negative OXYCOD (test code = 7805775804) Negative Negative TONE (test code = TONE) [...] legal testing). Lab Interpretation (test code = 09934-7) Abnormal [facility] 21:47:00* Test Item Value Reference Range Interpretation Comme nts APPEARANCE (test code = 3211986678) Clear Clear COLOR (test code = 1936063618) Yellow Yellow PH (test code = 7648911185) 4.8-8.0 SP GRAVITY (test code = 8486263878) >=1.030 1.003-1.030 GLU U QUAL (test code = 3290100712) Negative Negative BLOOD (test code = 8902516266) Small Negative A KETONES (test code = 8196722158) Negative Negative PROTEIN (test code = 2887-8) 100 mg/dL Negative A UROBILIN (test code = 2159539203) 0.2 mg/dL See_Comment [Automated messa ge] The system which generated this result transmitted reference range: 0-1.0 mg/dL. The reference range was not used to interpret this result as normal/abnormal. BILIRUBIN (test code = 0977310672) Negative Negative NITRITE (test code = 2978784961) Negative Negative LEUK LOGAN (test code = 4953011326) Negative Negative RBC/HPF (test code = 9443201235) See_Comment H [Automated messa ge] The system which generated this result transmitted reference range: 0 - 3 HPF. The reference range was not used to interpret this result as normal/abnormal. WBC/HPF (test code = 1314485352) See_Comment H [Automated messa ge] The system which generated this result transmitted reference range: 0 - 5 HPF. The reference range was not used to interpret this result as normal/abnormal. BACTERIA (test code = 1053668999) Many Negative A Lab Interpretation (test code = 60966-2) Abnormal [facility] WITH [id number] 21:36:00* Test Item Value Reference Range Interpretation [...] 33.4 g/dL 31.6-35.1 RDW-SD (test code = 55895-8) 43.8 fL 39-49.9 RDW-CV (test code = 788-0) 12.7 % 12-15.5 PLT (test code = 777-3) See_Comment [Automated messa ge] The system which generated this result transmitted reference range: 166 - 358 10*3/?L. The reference range was not used to interpret this result as normal/abnormal. MPV (test code = 71938-9) 10.3 fL 9.5-12.9 NRBC/100 WBC (test code = 0246960838) See_Comment [Automated [employer] ssage] The system which generated this result transmitted reference range: 0.0 - 10.0 /100 WBCs. The reference range was not used to interpret this result as normal/abnormal. NRBC x10^3 (test code = 4307030255) <0.01 See_Comment [Automated messa ge] The system which generated this result transmitted reference range: 10*3/?L. The reference range was not used to interpret this result as normal/abnormal. GRAN MAT (NEUT) % (test code = 770-8) 74.7 % IMM GRAN % (test code = 6819698717) 0.30 % LYMPH % (test code = 736-9) 14.7 % MONO % (test code = 5905-5) 6.4 % EOS % (test code = 713-8) 3.5 % BASO % (test code = 706-2) 0.4 % GRAN MAT x10^3(ANC) (test code = 5374893844) 5.27 10*3/uL 1.88-7.09 IMM GRAN x10^3 (test code = 2524122719) <0.03 0-0.06 LYMPH x10^3 (test code = 731-0) 1.04 10*3/uL 1.32-3.29 L MONO x10^3 (test code = 742-7) 0.45 10*3/uL 0.33-0.92 EOS x10^3 (test code = 711-2) 0.25 10*3/uL 0.03-0.39 BASO x10^3 (test code = 704-7) 0.03 10*3/uL 0.01-0.07 Lab Interpretation (test code = 51083-7) Abnormal [facility] CenterHBV BY REAL-TIME [id number] 19:39:00* Test Item Value Reference Range Interpretation Comme nts HBV PCR (test code = 38925-5) Not Detected Not Detected TONE (test code [...] - 10^9?IU/mL,? 1.00-9.00? Log IU/mL >10^9?IU/mL,?>9.00?Log IU/mL [facility] CenterVITAMIN B1 (THIAMINE), WHOLE [id number] 02:53:00* Test Item Value Reference Range Interpretation Comme [facility] Vitamin B1, Whole Blood (test code = 57843-0) 124 nmol/L 70-180 INTERPRETIVE INF ORMATION: Vitamin B1, Whole Blood This assay measures the concentration of thiamine diphosphate (TDP), the primary active form of vitamin B1. Approximately 90 percent of vitamin B1 present in whole blood is TDP. Thiamine and thiamine monophosphate, which comprise the remaining 10 percent, are not measured. Test developed and characteristics determined by [employer]. See Compliance Statement B: [email or web address]/CSPerformed by [employer],[address] [place] [address] [email or web address] Leroy lafleur MD, Lab. Cleaning MatronWilson N. Jones Regional Medical CenterVITAMIN B6, [id number] 20:15:00* Test Item Value Reference Range Interpretation Comme nts VIT B6 (test code = 2206) 27.1 nmol/L 20.0-125.0 INTERPRETIVE INF ORMATION: Vitamin B6 (Pyridoxal 5-Phosphate) Pyridoxal 5'-phosphate measured in a specimen collected following an 8-hour or overnight fast accurately indicates vitamin B6 nutritional status. Non-fasting specimen concentration reflects recent vitamin intake. Test developed and characteristics determined by [employer]. See Compliance Statement B: [employer]/CSPerformed by [employer],[address] [facility] [place] [address] [email or web address] Leroy MD, Lab. Cleaning MatronWilson N. Jones Regional Medical CenterVITAMIN D, [id number] 12:39:00* Test Item Value Reference Range Interpretation Comme [facility] VIT D 25OH (test code = 6055910334) 51 ng/mL 25-80 25-Hydroxy D3 (test code = 4046282149) 50.8 ng/mL 25-Hydroxy D2 (test code = 4434919246) <2.5 ng/mL TONE (test code = TONE) Test developed and characteristics determined by [facility] Laboratory Services. [facility] CenterHCV BY [id number] 12:15:00* Test Item Value Reference Range Interpretation Comme [facility] HCV by Real-Time PCR (test code = 3293221257) Not Detected Not detected IU/mL TONE (test code = TONE) [place] m2000 RealTime HCV reverse staff physical therapy assistant-polymerase chain reaction(RT-PCR) assay is used. It is [...] 0 IU/mL,>100,000,000 IU/mL: >upper limit of quantification. [facility] CenterGC & CHLAMYDIA AMPLIFIED [id number] 17:06:00* Test Item Value Reference Range Interpretation Comme [facility] Lab Interpretation (test cod e = 49270-9) Normal [facility] OR [place] [id number] 03:30:00* Test Item Value Reference Range Interpretation Comme nts Lab Interpretation (test cod e = 38656-3) Normal [facility] CenterHIGH SENSITIVITY [id number] 19:14:00* Test Item Value Reference Range Interpretation Comme nts HS CRP (test code = 6073692012) 0.02 mg/dL <0.74 Lab Interpretation (test cod e = 62645-1) Normal [facility] CenterHIV 1/2 AG-AB WITH [id number] 09:21:00* Test Item Value Reference Range Interpretation Comme nts HIV Semi-quantitative (test code = 87929-1) Negative Negative TONE (test code = TONE) Non-reactive for HIV-1 antigen and HIV-1/HIV-2 antibodies.?No laboratory evidence of HIV infection.?Repeat in 2-4 weeks if acute HIV infection is suspected. [facility] CenterHCV [id number] 07:15:00* Test Item Value Reference Range Interpretation Comme [facility] HCV Semi-Quantitative (test code = 89251-6) [facility] CenterHEPATITIS B SURFACE [id number] 07:15:00* Test Item Value Reference Range Interpretation Comme nts HBsAB (test code = 7173999381) Negative HBsAb Semi-Quantitative (test code = 0628094370) mIU/mL TONE (test code = TONE) Interpretation:?Hepatitis B Surface Antibody? ? Negative - Patient is considered to be not immune to infection with HBV.? Positive - Anti-HBs detected at greater than or equal to 12 mIU/mL.?Patient is considered to be immune to infection with HBV.? [facility] CenterHEPATITIS B CORE ANTIBODY [id number] 07:05:00* Test Item Value Reference Range Interpretation Comme nts HBCM Semi-Quantitative (test code = 29635-9) TONE (test code = TONE) Biotin has been reported to cause a negative bias, interpret results relative to patient's use of biotin. [facility] CenterHEPATITIS B SURFACE [id number] 06:58:00 * Test Item Value Reference Range Interpretation Comme [facility] HBsAg Semi-Quantitative (lokesh t code = 5195-3) [facility] CenterVITAMIN B12, [id number] 00:42:00* Test Item Value Reference Range Interpretation Comme nts VIT B12 (test code = 2668718011) 362 pg/mL 240-930 TONE (test code = TONE) Biotin has been reported to cause a positive bias, interpret results relative to patient's use of biotin. Lab Interpretation (test code = 90409-1) Normal [facility] CenterFOLATE2019-07-20 00:42:00* Test Item Value Reference Range Interpretation Comme nts FOLATE SER (test code = 0815102765) 8.1 ng/mL 3-20 Lab Interpretation (test cod e = 58776-1) Normal [facility] CenterHOMOCYSTEINE2019-07-19 23:40:00* Test Item Value Reference Range Interpretation Comme nts Homocysteine (test code = 6163888751) 11.9 umol/L 4.7-12.6 Lab Interpretation (test cod e = 73113-2) Normal [facility] CenterCBC WITH [id number] 19:42:00* Test Item Value Reference Range Interpretation Comme nts WBC (test code = 6690-2) See_Comment [Automated [employer]] The system which generated this result transmitted reference range: 4.30 - 11.10 10*3/?L. The reference range was not used to interpret this result as normal/abnormal. RBC (test code = 789-8) See_Comment H [Automated [employer]] The system which generated this result transmitted [...] 33.1 g/dL 31.6-35.1 RDW-SD (test code = 28000-0) 45.2 fL 39-49.9 RDW-CV (test code = 788-0) 13.2 % 12-15.5 PLT (test code = 777-3) See_Comment [Automated [employer]] The system which generated this result transmitted reference range: 166 - 358 10*3/?L. The reference range was not used to interpret this result as normal/abnormal. MPV (test code = 35554-4) 10.3 fL 9.5-12.9 NRBC/100 WBC (test code = 1565598089) See_Comment [Automated [employer] ssage] The system which generated this result transmitted reference range: 0.0 - 10.0 /100 WBCs. The reference range was not used to interpret this result as normal/abnormal. NRBC x10^3 (test code = 3373414557) <0.01 See_Comment [Automated [employer]] The system which generated this result transmitted reference range: 10*3/?L. The reference range was not used to interpret this result as normal/abnormal. GRAN MAT (NEUT) % (test code = 770-8) 61.4 % IMM GRAN % (test code = 2216330277) 0.80 % LYMPH % (test code = 736-9) 27.8 % MONO % (test code = 5905-5) 4.9 % EOS % (test code = 713-8) 4.6 % BASO % (test code = 706-2) 0.5 % GRAN MAT x10^3(ANC) (test code = 8807771089) 5.39 10*3/uL 1.88-7.09 IMM GRAN x10^3 (test code = 1705523755) 0.07 10*3/uL 0-0.06 H LYMPH x10^3 (test code = 731-0) 2.44 10*3/uL 1.32-3.29 MONO x10^3 (test code = 742-7) 0.43 10*3/uL 0.33-0.92 EOS x10^3 (test code = 711-2) 0.40 10*3/uL 0.03-0.39 H BASO x10^3 (test code = 704-7) 0.04 10*3/uL 0.01-0.07 Lab Interpretation (test code = 37481-0) Abnormal [facility] CenterMYOCARDIAL STRESS [id number] 23:27:00 *.*.*.*.*.*.*.*.*.*.*.*.*.*FINAL*.*.*.*.*.*.*.*.*.*.*.*.*.*.*Pharmacological myocardial perfusion imaging report Type: [...] by: CELESTE BOURNE MD /Signed/ CELESTE BOURNE MDUnCedar Park Regional Medical Center Notes Date/Time Note Provider Source 2022-12-12 14:05:00 [id number] [address] PATIENT NAME: FUNMILAYO ALLAN ADMIT DATE: 11/30/22 ACCOUNT NO: [id number] ROOM NO: Z.632 AGE: 62 REPORT TYPE: 360 - QUERY RESPONSE DOCUMENT SEX: F ADMITTING PHYSICIAN:Tre Jamil MD ATTENDING PHYSICIAN:Tre Jamil MD Provider Query QUERY TEXT: Condition Nutritional Status 360MD Query related questions should be directed to:[facility] Coding query helpline Based on your clinical [...] PM at 1405 [facility]: [facility]22-[facility] 15:09:00 [id number] [place] [address] PATIENT NAME: FUNMILAYO ALLAN ADMIT DATE: 11/30/22 ACCOUNT NO: [id number] ROOM NO: Z.632 AGE: 62 REPORT TYPE: 360 - QUERY RESPONSE DOCUMENT SEX: F ADMITTING PHYSICIAN:Tre Jamil MD ATTENDING PHYSICIAN:Tre Jamil MD Provider Query QUERY TEXT: Clarification Infectious Status POA 360MD Query related questions should be directed to:[facility] Coding query helpline Based on your clinical judgment, please clarify the condition(s) that represent(s) the clinical indicators listed below and if the condition(s) are present on admission (POA). The following definitions are provided based on industry literature and in collaboration with [facility] Clinical Services Group for your reference only: [...] AM at 1509 PATIENT NAME: FUNMILAYO ALLAN [facility] 2022-12-02 14:39:00 [facility] ([facility]) Hospitalist Discharge Summary REPORT#:[id number] REPORT STATUS: Signed DATE:12/02/22 TIME: 1439 PATIENT: FUNMILAYO ALLAN UNIT #: [id number] ROOM/BED: [address] : 62 AGE: 62 SEX: F [...] not show signs of acute disease. Eventually, [facility] were able to be contacted [...] and plan. at 1504 at 1833 RPT #:[id number] END OF REPORT [facility] 2022-12-01 18:08:00 [facility] ([facility]) Hospitalist Progress Note REPORT#:[id number] REPORT STATUS: Signed DATE:12/01/22 TIME: 1808 PATIENT: CANDICE ALLAN UNIT #: [id number] ROOM/BED: [address] : 62 AGE: 62 SEX: F [...] afebrile on empiric abx for suspected UTI [facility] P# PCP: Guero Rosenberg MD P# [facility] P# NOK: Nakul Scanlon - Daughter P# [...] motion, no calf tenderness Musculoskeletal: normal inspection Neuro/RETIREMENT BENEFITS SPECIALIST: alert, unable to fully evaluate neurological status [...] % (Auto) (14 - 44 %) 33.7 [place] % (Auto) (4 - 13 %) 7.7 Eos % (Auto) (0 - 6 %) 5.8 Baso % (Auto) (0 - 2 %) 0.6 Neut # (Auto) (2.0 - 7.6 K/mm3) 4.60 Lymph # (Auto) (1.0 - 3.8 K/mm3) 2.98 [place] # (Auto) (0.1 - 0.8 K/mm3) 0.68 Eos # (Auto) (0.0 - 0.2 K/mm3) 0.51 H Baso # (Auto) (0.0 - 0.2 K/mm3) 0.05 Immature Gran % (0.0 - 2.0 %) 0.3 Nucleated RBC % (0 - 1.0 %) 0.0 Nucleated RBCs # (Man) (0.0 - 0.1 K/mm3) 0.00 Diagnosis, Assessment Plan Problem List/A P: 1. Acute metabolic encephalopathy Pt admitted from [facility] with reported increased confusion, however [...] retrun pt back to her LTC at [facility] Full Code, per Documentation VTE Ppx: SCDs Diet: NPO, pending ST evaluation NOK: Nakul Scanlon - Daughter P# PCP: Guero Rosenberg MD P# [facility] P# [facility] P# Quality: [facility] Crit Care VTE Prophylaxis VTE prophylaxis initiated: yes (mechanical comp device) Current Medications Current medication review: I attest that the foregoing medication list in the medical record is true, accurate, and complete to the best of my knowledge. Advanced Care Plan 65 or Older Discussed with: other (full code) at 1825 RPT #:[id number] END OF REPORT [facility] 2022-11-30 08:24:00 [facility] ([facility]) Hospitalist History Physical REPORT#:[id number] REPORT STATUS: Signed DATE:11/30/22 TIME: 823 PATIENT: FUNMILAYO ALLAN UNIT #: [id number] [facility] AGE: 62 SEX: F ATTEND: Tre Jamil MD ADM AUTHOR: Kal Rose MD R2 * ALL edits or amendments must be made on the electronic/computer document * Kal Rose 09/17/23 0824: History of Present Illness HPI Chief complaint: [...] from 2021. Documentation available indicates residence at [facility] or [facility] (contact phone number for each facility documented below). Both facilities were contacted with no answer and no means of leaving voicemail. PCP is documented at Guero Rosneberg MD (contact phone number documented below), who [...] this time due to unclear medication regimen. [facility] P# PCP: Guero Rosenberg MD P# [facility] P# NOK: Nakul Scanlon - Daughter P# [...] Documented: Result Date Time Pulse Ox 97 11/290 B/P 125/90 11/29 2200 B/P Mean 101 11/290 Temp 98.8 11/290 Pulse 106 11/29 2200 Resp 20 11/29 2199 24 hour I O ending at 0700: [...] motion, no calf tenderness Musculoskeletal: normal inspection Neuro/RETIREMENT BENEFITS SPECIALIST: alert, unable to fully evaluate neurological status [...] % (Auto) (14 - 44 %) 35.4 [place] % (Auto) (4 - 13 %) 7.4 Eos % (Auto) (0 - 6 %) 2.6 Baso % (Auto) (0 - 2 %) 0.5 Neut # (Auto) (2.0 - 7.6 K/mm3) 6.01 Lymph # (Auto) (1.0 - 3.8 K/mm3) 3.96 H [place] # (Auto) (0.1 - 0.8 K/mm3) 0.83 [...] in 02/17/2022, by Guero Rosenberg MD, from [facility]. HPI from that date of service documentation indicated that she may have been transferred from [facility]. NOK is documented as Nakul Scanlon, patient's [...] Daughter P# PCP: Guero Rosenberg MD P# [facility] P# [facility] VTE Prophylaxis VTE prophylaxis initiated: yes (mechanical [...] documented in the resident's note EXCEPT: at 0920 at 2139 RPT #:[id number] END OF REPORT [facility] 2022-11-29 22:04:00 [facility] ([facility]) EMERGENCY PROVIDER REPORT REPORT#:[id number] REPORT STATUS: Signed DATE:11/29/22 TIME: 2203 PATIENT: FUNMILAYO ALLAN UNIT #: [id number] [facility] 62 SEX: F PCP PHYS: Undefined Provider SERVICE AUTHOR: Olga Braga MD LOCATION: [facility] * ALL edits or amendments must be [...] % (Auto) (14 - 44 %) 35.4 [place] % (Auto) (4 - 13 %) 7.4 Eos % (Auto) (0 - 6 %) 2.6 Baso % (Auto) (0 - 2 %) 0.5 Neut # (Auto) (2.0 - 7.6 K/mm3) 6.01 Lymph # (Auto) (1.0 - 3.8 K/mm3) 3.96 H [place] # (Auto) (0.1 - 0.8 K/mm3) 0.83 [...] 2210 Report Impression - Status: SIGNED Entered: 11/29/2022 2238 Impression: 1. No acute intracranial abnormality. Impression By: [email or web address] Pranav Dawkins MD RADIOLOGY - XR CHEST 1V 11/29 2212 Report Impression - Status: SIGNED Entered: 11/29/20222236 IMPRESSION: No radiographic evidence of acute cardiopulmonary process. Impression By: Javi Lopez MD CAT SCAN - CT ABD PELVIS W/CONT 11/30 022 Report Impression - Status: SIGNED Entered: 11/30/2022 [...] Time 0506 )( Accepted Date 11/30/22 at 4962 RPT #:[id number] END OF REPORT [facility]
--- NOTE | 2024-12-08 14:40 | EDPHYS ---
Physician Documentation [facility] Name: Funmilayo Mcmillan Age: 64 yrs Sex: Female : 1960 Arrival Date: 12/08/2024 Time: 14:22 Bed 14 Private MD: ED Physician Orlando Cisneros HPI: 12/08 15:07 This 64 yrs old Female presents to ER via EMS with complaints of Psych Problem.sb4 15:40 Patient presents via EMS from correction with agitation and combativeness. Patient sb4 was recently admitted here for this issue, had a full workup, was diagnosed with a UTI and discharged with antibiotics. Per inpatient team, patient was pleasant and cooperative this morning. She was not happy to go back to the correction, and when she returned back there she became very agitated and combative. detention states that they have been trying to get her into a geriatric psychiatric facility. Historical: - Allergies: 14:41 No Known Allergies; hb - PMHx: 14:41 Atrial Fib; GERD; Depression; Hyperlipidemia; Hypertension; Indwelling zheng; CVA; hb VASCULAR DEMENTIA; 18:08 Right sided weakness; aa5 - Immunization history:: Adult Immunizations up to date. - Infectious Disease History:: Denies. - Social history:: Smoking status: Patient denies any tobacco usage or history of. ROS: 15:40 Constitutional: Negative for fever, chills, and weight loss, sb4 15:40 All other systems are negative, Exam: 15:40 Head/Face: Normocephalic, atraumatic. Eyes: Extra-ocular motions intact. Periorbital sb4 areas with no swelling, redness, or edema. ENT: Mucous membranes moist. Cardiovascular: Regular rate and rhythm with a normal S1 and S2. Respiratory: No increased work of breathing, no retractions or nasal flaring. Abdomen/GI: Soft, non-tender, no distension. Skin: Warm, dry with normal turgor. Normal color with no rashes, no lesions, and no evidence of cellulitis. 15:40 Constitutional: The patient appears in no acute distress, alert, awake, Vital Signs: 14:40 BP 168 / 88; Pulse 82; Resp 16; Temp 97.8; Pulse Ox 100% on R/A; hb 16:42 BP 148 / 86; Pulse 82; Resp 16; Temp 98.3; Pulse Ox 100% ; hb 18:00 Pulse Ox 92% on R/A; aa5 18:02 BP 116 / 79; Pulse 105; Resp 16 S; Pulse Ox 95% on 2 lpm NC; aa5 18:57 BP 101 / 71; Pulse 102; Resp 15 S; Pulse Ox 95% on 2 lpm NC; aa5 20:57 BP 74 / 64; Pulse 96; Resp 16; Pulse Ox 95% on R/A; kb4 21:50 BP 127 / 94; Pulse 101; Resp 16; Pulse Ox 92% on R/A; kb4 23:26 BP 94 / 62; Pulse 65; Resp 16; Pulse Ox 98% ; MAP 74 mmHg; al5 12/09 00:00 BP 110 / 73; Pulse 64; Resp 15; Pulse Ox 99% on R/A; al5 01:00 BP 108 / 80; Pulse 62; Resp 15; Pulse Ox 99% on R/A; al5 03:30 BP 109 / 65; Pulse 66; Resp 16; Pulse Ox 99% on R/A; al5 04:49 BP 95 / 67; Pulse 71; Resp 18; Pulse Ox 97% on R/A; kd3 06:28 BP 103 / 64; Pulse 68; Resp 17; Pulse Ox 96% on R/A; kd3 12/08 23:26 patient side lying al5 MDM: 14:24 Medical Screening Exam initiated sb4 15:41 Data reviewed: vital signs, nurses notes, EMS record, correction records. Counseling: sb4 I had a detailed discussion with the patient and/or guardian regarding the historical points, exam findings, and any diagnostic results supporting the discharge/admit diagnosis, the presence of at least one elevated blood pressure reading (>120/80) during this emergency department visit, the need to transfer to another facility. 12/08 17:15 Order name: SARS RAPID; Complete Time: 17:55 sb4 Administered Medications: 15:43 Drug: LORazepam IM 2 mg IM once Route: IM; Site: right deltoid; nh2 18:00 Follow up: Response: No adverse reaction aa5 16:45 Drug: Geodon IM 40 mg IM once Route: IM; Site: right deltoid; hb 18:00 Follow up: Response: No adverse reaction aa5 18:57 Not Given (Physician Discretion): jimbo cqpatch 21 mg/24 hr 21 mg Transdermal once aa5 12/09 09:10 Drug: Geodon IM 20 mg IM once Route: IM; Site: right deltoid; hb Disposition: 12/10 07:05 Co-signature as Attending Physician, Wilfredo Ruff MD I reviewed the patient's care rn provided by the Advanced Practice Provider and agree with the diagnosis and treatment plan. Disposition Summary: 12/08/24 14:40 Transfer Ordered Notes: Transfer Location: Psych Facility sb4 Reason: Specialty sb4 Condition: Fair sb4 Problem: new sb4 Symptoms: are unchanged sb4 Accepting Physician: psych(12/09/24 09:45) hb Diagnosis - Restlessness and agitation sb4 Forms: - Medication Reconciliation Form sb4 - SBAR form sb4 Signatures: Dispatcher [employer] EDWilfredo Rogers MD MD rn Calderon, Audri RN GILA aa5 Zonia Samaniego RN RN hb Brown, Sophia, PA-C PANel sb4 Alexy Gu Jr RN RN [facility] Corrections: (The following items were deleted from the chart) 12/09 09:45 12/08 14:40 psych sb4 hb
[2024-12-08] MEDS ORDERED: LORazepam 2 MG/ML VIAL ONE (15:38)
[2024-12-08] MEDS ORDERED: ZIPRASIDONE MESYLA 20 MG/VIAL IM ONE (16:31)
[2024-12-08] MEDS ORDERED: WATER FOR INJ,STERILE 10 ML ONE (16:32)
[2024-12-08 17:53] LABS: SARS-CoV-2 Antigen Rapid Res Negative (Negative)
[2024-12-09] MEDS ORDERED: WATER FOR INJ,STERILE 10 ML ONE (09:06)
[2024-12-09] MEDS ORDERED: ZIPRASIDONE MESYLA 20 MG/VIAL IM ONE (09:06)
--- NOTE | 2024-12-09 09:45 | ER ---
Nurse's Notes [facility] Name: Funmilayo Mcmillan Age: 64 yrs Sex: Female : 1960 Arrival Date: 12/08/2024 Time: 14:22 Bed 14 Private MD: Diagnosis: Restlessness and agitation Presentation: 12/08 14:40 Chief complaint: EMS states: Discharged from hospital 30 mins ago, sent back because [facility] stated we "didn't adjust her medication like they instructed us to." Pt agitated and combative per [facility] staff. Coronavirus screen: At this time, the client does not indicate any symptoms associated with coronavirus-19. Ebola Screen: No symptoms or risks identified at this time. Initial Sepsis Screen: Does the patient meet any 2 criteria? No. Patient's initial sepsis screen is negative. Does the patient have a suspected source of infection? No. Patient's initial sepsis screen is negative. Risk Assessment: Do you want to hurt yourself or someone else? Patient reports no desire to harm self or others. Onset of symptoms was December 08, 2024. 14:40 Method Of Arrival: EMS: [facility] 14:40 Acuity: EDNA 3 hb Triage Assessment: 14:40 General: Appears in no apparent distress. Behavior is cooperative, restless. Pain: hb Denies pain. EENT: No signs and/or symptoms were reported regarding the EENT system. Neuro: Level of Consciousness is awake, alert, obeys commands, confused, Oriented to person. Cardiovascular: Patient's skin is warm and dry. Respiratory: Respiratory effort is even, unlabored, Respiratory pattern is regular, symmetrical. GI: No signs and/or symptoms were reported involving the gastrointestinal system. : No signs and/or symptoms were reported regarding the genitourinary system. Derm: Skin is pink, warm \\T\\ dry. Musculoskeletal: right sided weakness from previous CVA. Historical: - Allergies: 14:41 No Known Allergies; hb - PMHx: 14:41 Atrial Fib; GERD; Depression; Hyperlipidemia; Hypertension; Indwelling zheng; CVA; hb VASCULAR DEMENTIA; 18:08 Right sided weakness; aa5 - Immunization history:: Adult Immunizations up to date. - Infectious Disease History:: Denies. - Social history:: Smoking status: Patient denies any tobacco usage or history of. Screenin:18 [facility] ED Fall Risk Assessment (Adult) History of falling in the last 3 months, al5 including since admission No falls in past 3 months (0 pts) Confusion or Disorientation Yes (5 pts) Intoxicated or Sedated No (0 pts) Impaired Gait Yes (1 pt) Mobility Assist Device Used No (0 pt) Altered Elimination No (0 pt) Score/Fall Risk Level 3 or more points = High Risk Oriented to surroundings, Maintained a safe environment, Hourly rounding (assess needs \\T\\ fall precautionary measures) done. Abuse screen: Denies threats or abuse. Denies injuries from another. Nutritional screening: No deficits noted. Tuberculosis screening: No symptoms or risk factors identified. Assessment: 14:30 Reassessment: Nurse to nurse given to Dorene at [facility]. hb 14:34 Reassessment: Nurse to nurse given to Rosaura at [facility]. hb 16:42 Reassessment: Nurse to nurse given to Zara at [facility]. hb 17:37 Reassessment: Report given to Michelle at [facility]. hb 18:00 Reassessment: Pt resting in bed with eyes closed, easy to awaken to verbal stimuli. Pt aa5 is A\\T\\O x person only and appears drowsy. Brief soiled in urine, pt cleaned and clean brief applied. . 18:57 Reassessment: Pt drowsy, equal and unlabored respirations, skin is pink/warm/dry. . aa5 20:57 Reassessment: Patient and/or family updated on plan of care and expected duration. Pain kb4 level reassessed. Patient is alert, oriented x 3, equal unlabored respirations, skin warm/dry/pink. restless in bed. 21:49 Reassessment: Patient and/or family updated on plan of care and expected duration. Pain kb4 level reassessed. Patient is alert, oriented x 3, equal unlabored respirations, skin warm/dry/pink. sleeping in bed. 23:27 General: Appears in no apparent distress. comfortable, Behavior is uncooperative. Pain: al5 Unable to use pain scale. Patient is disoriented. Does not appear to understand pain scale. Neuro: Level of Consciousness is confused, Oriented to person. Cardiovascular: Capillary refill < 3 seconds Patient's skin is warm and dry. Respiratory: Airway is patent Respiratory effort is even, unlabored, Respiratory pattern is regular, symmetrical. GI: No deficits noted. : No deficits noted. EENT: No deficits noted. Derm: Skin is intact, Skin is pink, warm \\T\\ dry. normal. Musculoskeletal: Circulation, motion, and sensation intact. Range of motion: intact in all extremities. 12/09 01:24 Reassessment: Patient appears in no apparent distress at this time. No changes from al5 previously documented assessment. Patient and/or family updated on plan of care and expected duration. Pain level reassessed. patient is alert and oriented to self, respirations even and unlabored, skin pink/warm/dry. 02:07 Reassessment: Patient appears in no apparent distress at this time. No changes from al5 previously documented assessment. Patient and/or family updated on plan of care and expected duration. Pain level reassessed. patient is alert and oriented to self, respirations even and unlabored, skin pink/warm/dry. 03:30 Reassessment: Patient appears in no apparent distress at this time. Patient and/or al5 family updated on plan of care and expected duration. Pain level reassessed. Patient is alert, oriented x 3, equal unlabored respirations, skin warm/dry/pink. patient is alert and oriented to self, respirations even and unlabored, skin pink/warm/dry. 04:49 Reassessment: Pt resting in the stretcher, laying on the right side, respirations are kd3 even and unlabored, eyes closed, skin is warm and dry, pt remains on continuous monitoring and VSS. 06:28 Reassessment: Patient appears in no apparent distress at this time. No changes from kd3 previously documented assessment. Patient and/or family updated on plan of care and expected duration. Pain level reassessed. Patient is alert, oriented x 3, equal unlabored respirations, skin warm/dry/pink. Vital Signs: 12/08 14:40 BP 168 / 88; Pulse 82; Resp 16; Temp 97.8; Pulse Ox 100% on R/A; hb 16:42 BP 148 / 86; Pulse 82; Resp 16; Temp 98.3; Pulse Ox 100% ; hb 18:00 Pulse Ox 92% on R/A; aa5 18:02 BP 116 / 79; Pulse 105; Resp 16 S; Pulse Ox 95% on 2 lpm NC; aa5 18:57 BP 101 / 71; Pulse 102; Resp 15 S; Pulse Ox 95% on 2 lpm NC; aa5 20:57 BP 74 / 64; Pulse 96; Resp 16; Pulse Ox 95% on R/A; kb4 21:50 BP 127 / 94; Pulse 101; Resp 16; Pulse Ox 92% on R/A; kb4 23:26 BP 94 / 62; Pulse 65; Resp 16; Pulse Ox 98% ; MAP 74 mmHg; al5 12/09 00:00 BP 110 / 73; Pulse 64; Resp 15; Pulse Ox 99% on R/A; al5 01:00 BP 108 / 80; Pulse 62; Resp 15; Pulse Ox 99% on R/A; al5 03:30 BP 109 / 65; Pulse 66; Resp 16; Pulse Ox 99% on R/A; al5 04:49 BP 95 / 67; Pulse 71; Resp 18; Pulse Ox 97% on R/A; kd3 06:28 BP 103 / 64; Pulse 68; Resp 17; Pulse Ox 96% on R/A; kd3 12/08 23:26 patient side lying al5 ED Course: 14:24 Patient arrived in ED. bc6 14:24 Shaila Marie PA-C is PHCP. sb4 14:24 Wilfredo Ruff MD is Attending Physician. sb4 14:41 Triage completed. hb 14:42 Arm band placed on. hb 15:38 Zonia Samaniego, RN is Primary Nurse. hb 16:05 clinical's faxed to [facility], [facility]. bc6 17:16 mental health deputy called for warrant. bc6 19:07 pt was accepted to [facility]. Will fax transfer warrant to judge marie in the morning. kmf 19:10 Report given to GILA Nicholas and GILA Mariscal. aa5 19:14 Patient has correct armband on for positive identification. Bed in low position. Call al5 light in reach. Side rails up X2. Provided Education on: unable to provide education to patient, patient disoriented and does not understand. 23:18 No provider procedures requiring assistance completed. al5 12/09 06:40 called and left a message for Jaret from [facility] to call back to get approval/ pt is eb already on an ABDULLAHI. 07:43 administrative approval given by Adrienne Avila / patient has been accepted to [facility] / Dr. Torres has accepted the patient in transfer/ report to be called to [phone]. 07:52 Attending Physician role handed off by Wilfredo Ruff MD [facility] 07:52 Orlando Cisneros MD is Attending Physician. [facility] 08:02 called [facility] for [facility] [place] for transport to [facility]. eb Administered Medications: 12/08 15:43 Drug: LORazepam IM 2 mg IM once Route: IM; Site: right deltoid; nh2 18:00 Follow up: Response: No adverse reaction aa5 16:45 Drug: Geodon IM 40 mg IM once Route: IM; Site: right deltoid; hb 18:00 Follow up: Response: No adverse reaction aa5 18:57 Not Given (Physician Discretion): nicoderm cqpatch 21 mg/24 hr 21 mg Transdermal once aa5 12/09 09:10 Drug: Geodon IM 20 mg IM once Route: IM; Site: right deltoid; hb Medication: 12/08 23:28 VIS not applicable for this client. al5 Outcome: 14:40 ER care complete, transfer ordered by . sb4 12/09 09:45 Patient left the ED. Signatures: Orlando Cisneros MD MD cha Calderon, Audri, RN RN aa5 Zonia Samaniego RN RN Bev Rodriguez Estela Barreto RN RN kd3 Shaila Marie PA-C [facility] Maria Del Carmen Chakraborty [facility] Eun Rodriges [facility] Yu Iglesias RN RN al5 Alexy Gu Jr, RN RN nh2 Merly Peralta RN RN kb4 Corrections: (The following items were deleted from the chart) 12/08 16:10 16:05 clinical's faxed to [place] [phone]
[2024-12-09 10:09] VITALS: TEMP 98.3
[2024-12-09 10:22] VITALS: BP 103/64; O2SAT 96
== END 2024-12-09 09:45 ==
LOC: ER 14:22
DX: R45.1 Restlessness and agitation (principal); Z11.52 Encounter for screening for COVID-19
CPT/HCPCS: 36415; 96372; 99284; 87426; J3486 ×2